=== PATIENT | female | born 1995 | race Caucasian/White ===

== ENCOUNTER 2018-08-04 18:06 | Emergency (ER) | payer BC, SELFPAY ==
[2018-08-04 18:06] VITALS: BP 157/101; PULSE 84; RESP 19; TEMP 36.9; O2SAT 99; BMI 33.5
--- NOTE | 2018-08-04 18:32 | US_ITS ---
STUDY: ABDOMINAL ULTRASOUND - RIGHT UPPER QUADRANT REASON FOR VISIT: Female, 23 years old. Right sided abdominal pain for 5 days. Pain is worsening with time. TECHNIQUE: Ultrasound evaluation of the right upper quadrant was performed with real-time and static trevino-scale imaging. TECHNICAL QUALITY: Adequate. COMPARISON: CT of the abdomen and pelvis, March 24, 2017. FINDINGS: Liver: The liver measures 20.8 cm. There is normal echogenicity of the liver. The bile ducts are within normal limits. There is hepatic color flow. The direction of portal flow is hepatopetal. There is an echogenic mass in right liver measuring 1 x 1.1 cm in diameter. This is thought to be a hemangioma. It is not visualized on the prior CT. Gallbladder: Normal distended gallbladder. The gallbladder wall measures 2 mm. There is a negative sonographic Gunn's sign. There is no pericholecystic fluid. There are no gallstones. Common Bile Duct (C.B.D.): The common bile duct measures 3 mm. Pancreas: Normal size of the head, body and tail of the pancreas. There is normal echogenicity of the pancreas. There is no demonstrated pancreatic mass or cyst. Right Kidney: Normal size of the right kidney. The right kidney measures 12.3 cm. Normal renal cortex. The right cortex measures 1.6 cm. There is no demonstrated renal mass or cyst. There is no right hydronephrosis. US/Gallbladder IMPRESSION: 1. Probable hepatic hemangioma. 2. Hepatomegaly. 3. No other sonographic evidence of right upper quadrant abnormality. Electronically Signed: Sriram Bowman DO at 19:40 EDT Tel [phone], Service support ,
--- NOTE | 2018-08-04 18:32 | RAD_ITS ---
STUDY: X-RAY CHEST REASON FOR EXAM: Female, 23 years old. Right-sided chest pain. TECHNIQUE: Single AP portable view of the chest. COMPARISON: None. FINDINGS: The lungs are clear and expanded. There is no demonstrated pleural abnormality. Normal size heart. Normal mediastinum and donavan. Normal visualized pulmonary arteries. Normal visualized aortic arch and descending thoracic aorta. Normal visualized thoracic spine. Normal visualized ribs, clavicles, and shoulders. There is no demonstrated abnormality of the visualized soft tissue structures of the upper abdomen. RAD/Chest 1 View (Portable) IMPRESSION: Normal x-ray examination of the chest. Electronically Signed: Sriram Bowman DO at 18:54 EDT Tel [phone], Service support ,
--- NOTE | 2018-08-04 18:33 | EKG12_ITS ---
Test Reason : CP Blood Pressure : / mmHG Vent. Rate : 082 BPM Atrial Rate : 082 BPM P-R Int : 130 ms QRS Dur : 088 ms QT Int : 360 ms P-R-T Axes : 028 -15 003 degrees QTc Int : 420 ms Normal sinus rhythm Normal ECG Confirmed by NIDHI LYN ([id number]), film editor supervisor AMBREEN DANIEL ([id number]) on 08/10/2018 3:30:35 PM Referred By: DC Confirmed By:NIDHI LYN
--- NOTE | 2018-08-04 18:37 | ED.RN ---
NO OLD EKGS IN MUSE
[2018-08-04 18:45] VITALS: BP 129/95; PULSE 83; RESP 15; O2SAT 98
[2018-08-04] MEDS: 0.9% Normal Saline 1,000 ML 1000 ML IV (18:49)
[2018-08-04] MEDS: Ondansetron 4 MG/2 ML Vial IV (18:49)
[2018-08-04 19:01] LABS: Absolute Lymphocyte Count 4.26 X10^3/ul (0.83-4.51); Absolute Neutrophil Count 6.6 X10^3/uL (2.0-7.7); Basophil# 0.02 X10^3/uL; Basophil% 0.2 % (0-1); Eosinophil# 0.44 X10^3/uL; Eosinophils% 3.7 % (0-5); Hematocrit 42.8 % (37-47); Lymphocyte # 4.26 X10^3/ul (4.0); Lymphocyte % 35.8 % (19-41); Mean Corp Hgb Conc 32.7 g/gl (32-36); Mean Corpuscular Hgb 28.2 pg (27.0-32.0); Mean Corpuscular Volume 86.3 fL (81-99); Mean Platelet Vol. 10.2 fl (6.2-12.0); Monocyte# 0.54 X10^3/uL; Monocyte% 4.5 % (0-10); Neutrophil # 6.62 X10^3/uL (2.7-7.7); Neutrophil % 55.6 % (47-70); Platelet Count 282 K/mm3 (150-450); RBC Distribution Width SD 43.9 fl (35.1-43.9); Red Blood Count 4.96 M/mm3 (4.2-5.4); White Blood Count 11.9 K/mm3 (4.4-11.0)
[2018-08-04 19:03] LABS: POSITIVE COUNT NO; POSITIVE DIFFERENTIAL NO; POSITIVE MORPHOLOGY NO
[2018-08-04 19:31] LABS: Bacteria 0 SEEN /hpf (None Seen); Mucous, Urine 0 SEEN /hpf (<or=2+)
[2018-08-04 19:32] LABS: ALB/GLOB Ratio 0.8 RATIO (0.9-2.4); AST(SGOT) 8 U/L (15-37); Alanine Aminotransfer ALT/SGPT 17 U/L (13-56); Albumin, Serum 3.2 g/dL (3.2-5.0); Alkaline Phosphatase 63 U/L (45-117); Anion Gap 7 (5-15); BUN 16 mg/dL (7-18); BUN/Creat Ratio 20.3 RATIO (10-20); Calcium,Total 8.3 mg/dL (8.5-10.1); Chloride 108 mmol/L (98-107); Creatinine, Serum 0.79 mg/dL (0.55-1.02); EST Glomerular Filtration Rate 94 mL/min (>60); Est Glom Filt Rate - Afr Amer 114 mL/min (>60); Globulin 4.1 g/dL (2.2-4.2); Glucose 71 mg/dL (74-106); Lipase 118 U/L (73-393); Potassium 3.7 mmol/L (3.5-5.1); Protein, Total 7.3 g/dL (6.4-8.2); Sodium Level 141 mmol/L (136-145)
[2018-08-04 19:32] LABS: Color, Urine Yellow (Yellow); Glucose, Dipstick Normal (Normal); Ketone-Dipstick Negative (Negative); Leukocyte Esterase-Dipstick 100 /ul (Negative); Nitrite-Dipstick Negative (Negative); Occult Blood-Urine 10 /ul (Negative); Protein-Dipstick Negative (Negative); Specific Gravity, Urine 1.015 (1.002-1.030); Urine Bilirubin Dipstick Negative (Negative); Urine Clarity Clear (Clear); Urine Urobilinogen Normal (Normal)
[2018-08-04 19:33] LABS: Internal QC Validated? YES +Cl - CLEAR BKGD
[2018-08-04 19:35] LABS: Pregnancy, Urine Negative Negative
[2018-08-04 19:47] LABS: Squamous Epithelial Cells - UA 0-5 SEEN /hpf (5-10)
[2018-08-04 19:48] LABS: White Blood Cells 0-5 SEEN /hpf (0-5)
[2018-08-04 19:49] LABS: Red Blood Cells-Urine 0-5 SEEN /hpf (0-5)
--- NOTE | 2018-08-04 20:11 | ED.VISSUMM ---
- ER Visit Summary Date of Service: 08/04/18 Chief Complaint: Chest pain History of Present Illness: The patient is a 23 F with chest pain for 5 days. She said the pain is over her right side and right lower chest anteriorly. Worse with moving. Sometimes it takes her breath away. She does report some nausea. No fevers. No cough or sputum. No hemoptysis. No lightheadedness. No other GI symptoms. No urinary symptoms. Patient never had this before. She does have a history of asthma and seasonal allergies. History of hysteroscopy and D&C. No history of PE or DVT. She does take control but is not a smoker. No recent travel, immobilization, or hospitalization. No leg pain or swelling. No history of aortic disease. No history of gallbladder, liver, or pancreas disease. No history of kidney stones or kidney infections. No rashes. Physical Examination: Blood pressure 157/101. Otherwise vitals unremarkable. Patient appears nontoxic and in no acute distress. Skin is normal in color without pallor, diaphoresis, or jaundice. Heart regular rate and rhythm. Lungs clear bilaterally. Abdomen is tender in the right upper quadrant. No guarding or rebound. CVA nontender. Abdomen otherwise nontender. Test Results: EKG showed sinus rhythm at a rate of 82. Troponin was normal. Chest x-ray was normal. CBC showed a white count of 11.9. Chloride 108 and glucose 71. Hepatic panel unremarkable. Lipase unremarkable. Urinalysis unremarkable. Right upper quadrant ultrasound showed hepatomegaly and a hepatic hemangioma, but no other abnormalities. No acute process. Emergency Department Course and Treatment: Patient treated with fluids and Zofran. She also received [place]. Her work-up was fairly unremarkable. She does have an enlarged liver and hepatic hemangioma. Nothing that definitively explains her symptoms. She has no risk factors for cardiac disease. No signs of infection. No signs of biliary disease. Nothing to suggest PE. I believe she is appropriate for outpatient care. Treated with anti-inflammatories. Referred to primary care for follow-up. Return for any new or worsening issues. Treatment Plan: As above Disposition: Discharge Impression: 1. Right upper quadrant pain This note was generated with [employer] software. It may contain incorrect words, spelling, and punctuation that were not noted in review of the chart prior to signing ED Disposition - Plan for ED Patient: Referrals: Care Physician,No Primary [Primary Care Provider] -
--- NOTE | 2018-08-04 20:14 | ED.DCSUM_ITS ---
- ER Visit Summary Date of Service: 08/04/18 Chief Complaint: Chest pain History of Present Illness: The patient is a 23 F with chest pain for 5 days. She said the pain is over her right side and right lower chest anteriorly. Worse with moving. Sometimes it takes her breath away. She does report some na usea. No fevers. No cough or sputum. No hemoptysis. No lightheadedness. No other GI symptoms. No urinary symptoms. Patient never had this before. She does have a history of asthma and seasonal allergies. History of hysteroscopy and D&C. No history of PE or DVT. She does take control but is not a smoker. No recent travel, immobilization, or hospitalization. No leg pain or swelling. No history of aortic disease. No history of gallbladder, liver, or pancreas disease. No history of kidney stones or kidney infections. No rashes. Physical Examination: Blood pressure 157/101. Otherwise vitals unremarkable. Patient appears nontoxic and in no acute distress. Skin is normal in color without pallor, diaphoresis, or jaundice. Heart regular rate and rhythm. Lungs clear bilaterally. Abdomen is tender in the right upper quadrant. No guarding or rebound. CVA nontender. Abdomen otherwise nontender. Test Results: EKG showed sinus rhythm at a rate of 82. Troponin was normal. Chest x-ray was normal. CBC showed a white count of 11.9. Chloride 108 and glucose 71. Hepatic panel unremarkable. Lipase unremarkable. Urinalysis unremarkable. Right upper quadrant ultrasound showed hepatomegaly and a hepatic hemangioma, but no other abnormalities. No acute process. Emergency Department Course and Treatment: Patient treated with fluids and Zofran. She also received [place]. Her work-up was fairly unremarkable. She does have an enlarged liver and hepatic hemangioma. Nothing that definitively explains her symptoms. She has no risk factors for cardiac disease. No signs of infection. No signs of biliary disease. Nothing to suggest PE. I [facility] Treated with anti-inflammatories. Referred to primary care for follow-up. Return for any new or worsening issues. Treatment Plan: As above Disposition: Discharge Impression: 1. Right upper quadrant pain This note was generated with [employer] software. It may contain incorrect words, spelling, and punctuation that were not noted in review of the chart prior to signing ED Disposition - Plan for ED Patient: Referrals: Care Physician,No Primary [Primary Care Provider] -
--- NOTE | 2018-08-04 20:15 | ED.DEP ---
ED Disposition - Plan for ED Patient: Instructions: ED Chest Pain Atypical Unkn Cause Prescriptions: Naproxen [Naprosyn] 500 mg PO BID #14 tab Referrals: Li Gatica [NON-STAFF] - As Needed Filippo Dumont DO [NON CLINICAL AFFILIATE] - As soon as possible
[2018-08-04] MEDS: HYDROcodone Bitartrate/Apap 5/325 Tablet PO (20:31)
[2018-08-04 20:41] VITALS: BP 128/79; PULSE 74; RESP 16; O2SAT 98
== END 2018-08-04 20:43 | disposition home or self-care (01) ==
LOC: ED 18:56
PROVIDERS: Emergency Provider Emergency Medicine
DX: R10.11 Right upper quadrant pain (principal); D18.03 Hemangioma of intra-abdominal structures; R16.0 Hepatomegaly, not elsewhere classified; R11.0 Nausea; R06.00 Dyspnea, unspecified; M54.9 Dorsalgia, unspecified; J45.909 Unspecified asthma, uncomplicated
CPT/HCPCS: 71045; 76705; 80053; 81001; 81025; 83690; 84484; 85025; 93005; 96361; 96374; 99284; J7030; A4216; J2405

== ENCOUNTER → 2018-11-30 17:27 | Outpatient (CLI) | payer BC, SELFPAY ==
[2018-12-28 15:22] LABS: HPV Reflexed? NOT INDICATED
== END ==
PROVIDERS: Visit Provider Obstetrics & Gynecology
DX: Z12.4 Encounter for screening for malignant neoplasm of cervix (principal); Z78.0 Asymptomatic menopausal state
CPT/HCPCS: 87624; 88175; G0145

== ENCOUNTER 2019-05-18 14:49 | Emergency (ER) | payer OTHER, BC, SELFPAY ==
[2019-05-18 14:53] VITALS: BP 145/94; PULSE 106; RESP 16; TEMP 36.9; O2SAT 96; BMI 39.4
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
[2019-05-18] MEDS: Naproxen 500 MG Tablet PO (15:38)
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
== END 2019-05-18 17:04 | disposition home or self-care (01) ==
PROVIDERS: Emergency Provider Emergency Medicine
DX: M54.2 Cervicalgia (principal); M25.512 Pain in left shoulder; M25.511 Pain in right shoulder; M79.632 Pain in left forearm; M25.561 Pain in right knee; V43.52XA Car driver injured in collision with other type car in traffic accident, initial encounter; Y93.9 Activity, unspecified; Y92.410 Unspecified street and highway as the place of occurrence of the external cause; Y99.9 Unspecified external cause status; Z79.899 Other long term (current) drug therapy
CPT/HCPCS: 71046; 72040; 73090; 73564; 99282

== ENCOUNTER → 2019-08-24 06:30 | Outpatient (CLI) | payer SELFPAY ==
[2019-05-21 16:16] VITALS: BMI 39.4
[2019-08-24 07:41] LABS: Absolute Lymphocyte Count 5.94 X10^3/uL (0.83-4.51); Absolute Neutrophil Count 5.6 X10^3/uL (2.0-7.7); Basophil# 0.06 X10^3/uL; Basophil% 0.5 % (0-1); Eosinophil# 0.73 X10^3/uL; Eosinophils% 5.6 % (0-5); Hematocrit 44.3 % (37-47); Hemoglobin 13.6 g/dL (12.0-15.0); Lymphocyte # 5.94 X10^3/ul (4.0); Lymphocyte % 45.8 % (19-41); Mean Corp Hgb Conc 30.7 g/dL (32-36); Mean Corpuscular Hgb 26.9 pg (27.0-32.0); Mean Corpuscular Volume 87.5 fL (81-99); Mean Platelet Vol. 10.1 fl (6.2-12.0); Monocyte# 0.63 X10^3/uL; Monocyte% 4.9 % (0-10); NRBC Flagged by Analyzer 0 % (0-5); Neutrophil # 5.55 X10^3/uL (2.7-7.7); Neutrophil % 42.8 % (47-70); POSITIVE DIFFERENTIAL YES; Platelet Count 385 K/mm3 (150-450); RBC Distribution Width CV 13.5 % (11.6-14.6); RBC Distribution Width SD 43.4 fl (35.1-43.9); Red Blood Count 5.06 M/mm3 (4.2-5.4)
[2019-08-24 07:46] LABS: Differential Indicated SCAN CRITERIA MET
[2019-08-24 08:13] LABS: ALB/GLOB Ratio 0.7 RATIO (0.9-2.4); AST(SGOT) 9 U/L (15-37); Alanine Aminotransfer ALT/SGPT 20 U/L (13-56); Albumin, Serum 3.1 g/dL (3.2-5.0); Alkaline Phosphatase 62 U/L (45-117); Anion Gap 11 (5-15); BUN 16 mg/dL (7-18); BUN/Creat Ratio 21.1 RATIO (10-20); Calcium,Total 8.7 mg/dL (8.5-10.1); Chloride 105 mmol/L (98-107); Cholesterol 237 mg/dL (200); Creatinine, Serum 0.76 mg/dL (0.55-1.02); EST Glomerular Filtration Rate 98 mL/min (>60); Est Glom Filt Rate - Afr Amer 118 mL/min (>60); Globulin 4.4 g/dL (2.2-4.2); Glucose 81 mg/dL (74-106); High Density Lipoprotein 61 mg/dL; Potassium 3.7 mmol/L (3.5-5.1); Protein, Total 7.5 g/dL (6.4-8.2); Sodium Level 141 mmol/L (136-145); Thyroid Stim Hormone (TSH) 1.72 uIU/mL (0.358-3.74); Triglycerides 176 mg/dL; Very Low Density Lipoprotein 35 mg/dL (5-40)
[2019-08-24 08:43] LABS: Differential Comment SCANNED; Reactive Lymphocyte RARE
== END ==
DX: F31.9 Bipolar disorder, unspecified (principal); Z13.6 Encounter for screening for cardiovascular disorders
CPT/HCPCS: 36415; 80053; 80061; 84443; 85025

== ENCOUNTER 2019-09-07 09:29 | Emergency (ER) | payer OTHER, BC, SELFPAY ==
[2019-05-21 16:16] VITALS: BMI 39.4
[2019-09-07 09:31] VITALS: BP 135/81; PULSE 89; RESP 18; TEMP 36.7; O2SAT 96; BMI 39.4
--- NOTE | 2019-09-07 09:45 | ED.VISSUMM ---
- ER Visit Summary Date of Service: 09/07/19 Chief Complaint: [Bite to right small finger and left index finger] History of Present Illness: The patient is a 24 F [presents to the emergency department after sustaining a bite to her right small finger and left index finger this morning around 8 AM. Patient states that she was in the office and thought that they had a mouse and she captured it with her hands and then was bitten. Patient thinks her last tetanus shot was about 9 years ago. She denies any other injuries.] Physical Examination: [Right small finger-patient has small puncture wounds to the lateral aspect of the PIP joint. She has normal range of motion flexion extension of the digit. Left index finger-patient has superficial puncture wound noted. Normal range of motion at the DIP and PIP joint. She is neurovascular intact.] Test Results: [None indicated] Emergency Department Course and Treatment: [Patient was given Adacel tetanus booster.] Treatment Plan: [Patient was advised that molds and mice do not carry the rabies virus. Recommended observing the wounds for signs of infection. Patient to follow-up with corporate care in 3 to 5 days for wound check. Patient advised to return if increasing pain, redness, swelling, purulent drainage, or condition should worsen anyway.] Disposition: [Discharged home in stable condition] Impression: [Bite to right small finger and left index finger from a mole] This note was generated with [employer] dictation software. It may contain incorrect words, spelling, and punctuation that were not noted in review of the chart prior to signing ED Disposition - Plan for ED Patient: Referrals: [facility] Doctor,Out of [Primary Care Provider] -
--- NOTE | 2019-09-07 09:48 | ED.DEP ---
ED Disposition - Plan for ED Patient: Instructions: ED Animal Bite General Referrals: [facility] Doctor,Out of [Primary Care Provider] - Corporate,Care [GROUP OF PHYSICIANS] - 3-5 Days
[2019-09-07] MEDS: Diphth,Pertuss(Acell),Tet Vac 0.5 ML Vial IM (10:00)
== END 2019-09-07 10:03 | disposition home or self-care (01) ==
LOC: ED 09:50
PROVIDERS: Emergency Provider Emergency Medicine
DX: S61.250A Open bite of right index finger without damage to nail, initial encounter (principal); S61.230A Puncture wound without foreign body of right index finger without damage to nail, initial encounter; S61.256A Open bite of right little finger without damage to nail, initial encounter; S61.236A Puncture wound without foreign body of right little finger without damage to nail, initial encounter; W53.81XA Bitten by other rodent, initial encounter; Y93.9 Activity, unspecified; Y92.9 Unspecified place or not applicable; Y99.0 Civilian activity done for income or pay; Z23 Encounter for immunization; F31.9 Bipolar disorder, unspecified; Z79.899 Other long term (current) drug therapy
CPT/HCPCS: 90715; 99281; 99282

== ENCOUNTER 2021-12-06 15:57 | Outpatient (CLI) | payer MEDICAID, SELFPAY ==
[2021-12-10 22:06] LABS: Chlamydia By Nucleic Acid AMP Negative (Negative)
[2021-12-11 15:13] LABS: Gonococcus By Nucleic Acid AMP Negative (Negative)
[2021-12-14 20:52] LABS: HPV Reflexed? NOT INDICATED
== END 2021-12-06 23:59 | disposition home or self-care (01) ==
PROVIDERS: Visit Provider Obstetrics & Gynecology
DX: O09.90 Supervision of high risk pregnancy, unspecified, unspecified trimester (principal); Z31.430 Encounter of female for testing for genetic disease carrier status for procreative management
CPT/HCPCS: 87491; 87591; 88175; G0145

== ENCOUNTER → 2021-12-12 | Outpatient (CLI) | payer MEDICAID, SELFPAY ==
[2021-12-12 10:23] LABS: NATERA MAILED SPECIMEN
[2021-12-12 10:46] LABS: Absolute Lymphocyte Count 3.07 X10^3/uL (0.83-4.51); Absolute Neutrophil Count 7.4 X10^3/uL (2.0-7.7); Basophil# 0.04 X10^3/uL; Basophil% 0.4 % (0-1); Eosinophil# 0.23 X10^3/uL; Hemoglobin 12.9 g/dL (12.0-15.0); Lymphocyte # 3.07 X10^3/ul (0.83-4.51); Lymphocyte % 27.1 % (19-41); Mean Corp Hgb Conc 31.5 g/dL (32-36); Mean Corpuscular Volume 82.7 fL (81-99); Monocyte% 4.4 % (0-10); NRBC Flagged by Analyzer 0 % (0-5); Neutrophil # 7.41 X10^3/uL (2.7-7.7); Neutrophil % 65.3 % (47-70); Platelet Count 351 K/mm3 (150-450); RBC Distribution Width CV 14.9 % (11.6-14.6); RBC Distribution Width SD 44.8 fl (35.1-43.9); Red Blood Count 4.96 M/mm3 (4.2-5.4); White Blood Count 11.3 K/mm3 (4.4-11.0)
[2021-12-12 11:08] LABS: Glucose Challenge Gest 1H 50g 96 mg/dL (70-140)
[2021-12-12 11:57] LABS: HIV - WCH Non-Reactive (Nonreactive); Hepatitis B Surface Antigen Non-Reactive (Nonreactive); Hepatitis C Antibody Non-Reactive (Nonreactive); Rubella IgG Reactive (Nonreactive); Syphilis Antibodies Non-reactive
[2021-12-13 08:30] LABS: HSV 1 IgG 5.19 index (0.00-0.90); HSV 2 IgG < 0.91 index (0.00-0.90)
== END | disposition home or self-care (01) ==
LOC: LAB 09:20
PROVIDERS: Referring Provider Obstetrics & Gynecology; Visit Provider Obstetrics & Gynecology
DX: O99.210 Obesity complicating pregnancy, unspecified trimester (principal)
CPT/HCPCS: 36415; 82950; 85025; 86695; 86696; 86703; 86762; 86780; 86803; 86850; 86900; 86901; 87340

== ENCOUNTER → 2022-01-02 | Outpatient (CLI) | payer MEDICAID, SELFPAY ==
[2022-01-02 18:08] LABS: Amphetamine Urine VISTA NEGATIVE (<1000 ng/mL); Barbiturate Urine VISTA NEGATIVE (< 200 ng/mL); Benzodiazepine Urine VISTA NEGATIVE (< 200 ng/mL); Cocaine Urine VISTA NEGATIVE (< 300 ng/mL); Ecstacy Urine VISTA NEGATIVE (< 500 ng/mL); Methadone Urine VISTA NEGATIVE (< 300 ng/mL); PCP Urine VISTA NEGATIVE (< 25 ng/mL); THC Urine VISTA NEGATIVE (< 50 ng/mL); Vista UDS pH Range 5
== END | disposition home or self-care (01) ==
PROVIDERS: Visit Provider Obstetrics & Gynecology
DX: O09.90 Supervision of high risk pregnancy, unspecified, unspecified trimester (principal); Z3A.00 Weeks of gestation of pregnancy not specified
CPT/HCPCS: 80307; 87086; 87088

== ENCOUNTER 2022-04-08 10:32 | Outpatient (CLI) | payer MEDICAID, SELFPAY ==
[2022-04-08 11:30] LABS: Absolute Lymphocyte Count 2.97 X10^3/uL (0.83-4.51); Absolute Neutrophil Count 10.8 X10^3/uL (2.0-7.7); Basophil# 0.05 X10^3/uL; Basophil% 0.3 % (0-1); Eosinophil# 0.27 X10^3/uL; Eosinophils% 1.8 % (0-5); Hematocrit 38.2 % (37-47); Hemoglobin 12.3 g/dL (12.0-15.0); Lymphocyte # 2.97 X10^3/ul (0.83-4.51); Lymphocyte % 19.8 % (19-41); Mean Corp Hgb Conc 32.2 g/dL (32-36); Mean Corpuscular Hgb 27.1 pg (27.0-32.0); Mean Corpuscular Volume 84.1 fL (81-99); Mean Platelet Vol. 9.9 fl (6.2-12.0); Monocyte# 0.78 X10^3/uL; Monocyte% 5.2 % (0-10); NRBC Flagged by Analyzer 0 % (0-5); Neutrophil # 10.76 X10^3/uL (2.7-7.7); Neutrophil % 71.7 % (47-70); Platelet Count 314 K/mm3 (150-450); RBC Distribution Width CV 15.9 % (11.6-14.6); RBC Distribution Width SD 48.5 fl (35.1-43.9); Red Blood Count 4.54 M/mm3 (4.2-5.4)
[2022-04-08 11:51] VITALS: BMI 44.4
[2022-04-08 11:56] LABS: Glucose Challenge Gest 1H 50g 118 mg/dL (70-140)
[2022-04-08 12:12] VITALS: PULSE 87; O2SAT 95
[2022-04-08 12:14] VITALS: BP 117/60; PULSE 88; TEMP 36.6; O2SAT 96
[2022-04-08 12:28] LABS: HIV - WCH Non-Reactive (Nonreactive); Syphilis Antibodies Non-reactive
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
== END 2022-04-08 13:55 | disposition home or self-care (01) ==
LOC: LAB 10:35 → WPOUT 11:50 → WP 11:51
PROVIDERS: Nurse Practitioner Women's Health; Referring Provider Obstetrics & Gynecology; Visit Provider Obstetrics & Gynecology
DX: O36.8130 Decreased fetal movements, third trimester, not applicable or unspecified (principal); O34.13 Maternal care for benign tumor of corpus uteri, third trimester; D25.9 Leiomyoma of uterus, unspecified; O99.213 Obesity complicating pregnancy, third trimester; Z3A.28 28 weeks gestation of pregnancy; Z87.891 Personal history of nicotine dependence
CPT/HCPCS: 36415; 59025; 59050; 82950; 85025; 86703; 86780; 99221; G0378

== ENCOUNTER → 2022-06-03 | Outpatient (CLI) | payer MEDICAID, SELFPAY ==
--- NOTE | 2022-06-03 12:32 | US_ITS ---
STUDY: SECOND AND THIRD TRIMESTER OBSTETRICAL ULTRASOUND-limited REASON FOR EXAM: Female, 27 years old routine survey, growth check LMP: 09/23/2021 TECHNIQUE: Transabdominal TECHNICAL QUALITY: Adequate. PRIOR ULTRASOUND: None. FINDINGS: There is a single intrauterine fetus. The fetus is in a cephalic presentation. There is demonstrated cardiac activity with a heart rate of 135 bpm. There is a normal amniotic fluid volume. The largest amniotic fluid pocket measures 7.0 cm. The amniotic fluid index (PABLO) is 17.6 cm. The placenta is anterior in location and is not low lying. There are Grade 2 placental changes. The cervix measures 3.8 cm in length. The bilateral adnexal regions are normal. BIOMETRY: BPD: 9.27 cm: 37 weeks, 5 days HC: 33.6 cm: 38 weeks, 3 days AC: 34.07 cm: 38 weeks, 0 days FL: 6.7 cm: 34 weeks, 2 days age by current US: 36 weeks, 6 days. HITESH by current US: 06/25/2022. Estimated weight: 3122 grams, +/- 468 grams, 77 %. Age by LMP: 36 weeks, 1 days. HITESH by LMP: 06/30/2022. US/OB Limited With Biometrics IMPRESSION: Single live intrauterine at 36 weeks, 6 days by current ultrasound with HITESH of 06/25/2022. Heart rate of 135 bpm. No suspicious sonographic findings Electronically Signed: Dariel Hebert MD at 13:25 EDT ,
== END | disposition home or self-care (01) ==
PROVIDERS: Visit Provider Nurse Practitioner Women's Health
DX: O09.90 Supervision of high risk pregnancy, unspecified, unspecified trimester (principal)
CPT/HCPCS: 76816; 87081

== ENCOUNTER 2022-06-08 22:44 | Inpatient (IN) | payer MEDICAID, SELFPAY ==
[2022-06-08 22:02] VITALS: PULSE 96; O2SAT 96
[2022-06-08 22:11] VITALS: BMI 47.2
[2022-06-08 22:19] VITALS: TEMP 36.9
[2022-06-08 22:20] VITALS: BP 131/84; PULSE 104; O2SAT 93
[2022-06-08 22:39] LABS: ROM Internal Control Test YES-OK TO RESULT pt. (Internal QC)
[2022-06-08 22:41] LABS: ROM Patient Test POSITIVE (Negative)
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
[2022-06-08] MEDS: Lactated Ringers 1,000 ML 200 ML IV (23:20)
[2022-06-08 23:39] LABS: Absolute Lymphocyte Count 3.22 X10^3/uL (0.83-4.51); Absolute Neutrophil Count 9.1 X10^3/uL (2.0-7.7); Basophil# 0.05 X10^3/uL; Basophil% 0.4 % (0-1); Eosinophil# 0.27 X10^3/uL; Hematocrit 40.5 % (37-47); Hemoglobin 12.7 g/dL (12.0-15.0); Lymphocyte # 3.22 X10^3/ul (0.83-4.51); Lymphocyte % 23.8 % (19-41); Mean Corp Hgb Conc 31.4 g/dL (32-36); Mean Corpuscular Hgb 26.6 pg (27.0-32.0); Mean Corpuscular Volume 84.9 fL (81-99); Monocyte# 0.87 X10^3/uL; Monocyte% 6.4 % (0-10); NRBC Flagged by Analyzer 0 % (0-5); Neutrophil # 9.06 X10^3/uL (2.7-7.7); Neutrophil % 66.9 % (47-70); Platelet Count 285 K/mm3 (150-450); RBC Distribution Width SD 49.3 fl (35.1-43.9); Red Blood Count 4.77 M/mm3 (4.2-5.4); White Blood Count 13.5 K/mm3 (4.4-11.0)
[2022-06-08] MEDS: fentaNYL 100 MCG/2 ML Ampul IV (23:43)
[2022-06-08 23:56] VITALS: TEMP 36.5
[2022-06-08 23:57] VITALS: BP 137/82; PULSE 91; O2SAT 94
[2022-06-09] VITALS (166 sets, daily range): BP systolic 81–151; BP diastolic 41–91; PULSE 43–166; TEMP 35.8–37.9; O2SAT 80–100
[2022-06-09 00:19] LABS: Syphilis Antibodies Non-reactive
[2022-06-09] MEDS: LACTATED RINGERS 500 ML 999 ML IV ×2 (02:15→03:52)
[2022-06-09] MEDS: fentaNYL-bupivacaine (epidural) 100 ML BAG EPIDURAL ×3 (03:02→17:13)
[2022-06-09] MEDS: 0.9% Saline Lock 10 ML Syringe IV ×2 (03:50→17:15)
[2022-06-09] MEDS: Ondansetron 4 MG/2 ML Vial IV ×3 (03:50→17:15)
[2022-06-09] MEDS: ePHEDrine Sulfate 50 MG/ML Ampul 10 MG IV (04:09)
[2022-06-09] MEDS: Lactated Ringers 1,000 ML 200 ML IV ×3 (06:05→15:39)
[2022-06-09] MEDS: Oxytocin 15 Units/NS 250ml 15 UNITS/250 ML IV.SOLN 2 UNITS IV (08:44)
--- NOTE | 2022-06-09 19:41 | EX.PCM.OBRPT ---
Assessment & Plan (1) Vaginal delivery: COMMENT: SM srom girl víctor (2) Bipolar disorder: COMMENT: taking lamictal and lexapro. Change to zoloft 03/13 (3) Obesity affecting : COMMENT: weekly nsts at 34 and growth US 32 and 36 (4) Herpes simplex antibody positive: COMMENT: Herpes simplex I + lab, no hx of cold sores per pt (5) COVID-19 affecting in second trimester: COMMENT: Baby ASA daily. Growth US 32 and 36 wk (6) Supervision of high risk , antepartum: COMMENT: [id number], girlVíctor HITESH 06/30/22, Jimmy Alvarado (7) SROM (spontaneous rupture of membranes): (8) : QUALIFIERS: Weeks of gestation: 36 weeks Qualified Code(s): Z3A.36 - 36 weeks gestation of COMMENT: GBS neg, NIPT low risk, carrier neg. , nl anatomy. fibroid on posterior of uterus. nl growth Maternal Data Information HITESH Calculator Estimated Delivery Date Method Current WG Current Estimate 06/30/22 LMP (Certain) 37w 0d Other Estimates 07/01/22 Ultrasound #1 36w 6d Vaginal Delivery Operative Information Date of Procedure: 06/09/22 Pre-Operative Diagnosis: see a/p diagnoses Post-Operative Diagnosis: same Surgery / Procedure Performed: Spontaneous Vaginal Delivery Type of Anesthesia: Epidural Special Medications: none Estimated Blood Loss: 400 Fluids Replaced: crystalloid Findings Description of Procedure: Patient began pushing and delivered the head in the JAILYN presentation. The head was delivered atraumatically and a loose nuchal x2 was identified and the delivered through. The anterior and posterior shoulders delivered without complication followed by the rest of the and the infant was placed on the maternal abdomen. Delayed cord clamping was employed for approximately 60 seconds. Cord was clamped and cut and gentle traction was applied to the cord and the placenta delivered spontaneously immediately following it was noted to be intact with three-vessel cord. The perineum and vagina were inspected and noted to have a second degree perineal laceration which was repaired in the usual fashion with 3-0 vicryl rapide.. EBL was 400. Patient and tolerated delivery well. Amniotic Fluid Description: Clear Placental Delivery Description: Spontaneous Placenta Disposition: [facility] Cord Vessel Description: 3 Vessels Cord Entanglement: None Delayed Cord Clamping: Yes Post Vaginal Delivery Medications Given After Delivery: IV Pitocin Episiotomy Description: None Complication Complications: None Procedures Urinary/Genital [id number]: [id number] Vaginal Delivery+PP Care([facility])
--- NOTE | 2022-06-09 19:42 | DCINST_ITS ---
Discharge Instructions Diet Discharge Diet: No restrictions Activity Discharge Activity: Return to Normal Activity, May Drive, May Shower and May Take a Tub Bath (in 4 weeks) May resume sexual activity in: 6-8 weeks (after seen by OB provider) Weight Bearing Status: Full weight bearing Lifting Restrictions: none Dressing / Incision Call your doctor if you observe: Fever of 101 or Higher, Inability to urinate, Using more than 1 pad per hour (for more than 2 hours in a row or more), Shortness of breath, Dizziness, Chest pain and - (headache not controlled with tylenol, change in vision) Follow Up Care When: in 6 weeks for visit, call the office to make the appointment. If you had elevated blood pressures call the office to be seen within 1 week. Test Results: Test results from this visit will be discussed in further detail at your follow- up appointment, if applicable. Discharge Plan Admission Admit Date/Time: 06/08/22 22:44 Attending Provider: Nenita Fong Primary Care Provider: Care PhysicianSheri Primary Discharge Orders/Prescriptions Prescriptions: No Action ondansetron 4 mg tablet,disintegrating 4 mg PO Q6H PRN (Reason: nausea and vomiting) Qty: 30 0RF promethazine 12.5 mg tablet 12.5 mg PO Q6H PRN (Reason: nausea and vomiting) Qty: 60 1RF Rx Instructions: 3 doses during day; last dose no later than 4 hr before bedtime sertraline [Zoloft] 50 mg tablet 50 mg PO DAILY Qty: 30 4RF lamotrigine 200 MG tablet 200 mg PO DAILY cetirizine 10 mg tablet 10 mg PO DAILY Vitafol Fe Plus 90 mg iron- 1 mg-200 mg capsule 1 cap PO DAILY Qty: 90 4RF Referrals / Follow Up: Care Physician,No Primary [Primary Care Provider] -
[2022-06-09] MEDS: Oxytocin 15 Units/NS 250ml 15 UNITS/250 ML IV.SOLN 83 UNITS IV (21:16)
[2022-06-10] MEDS: Naproxen 500 MG Tablet PO (01:07)
[2022-06-10 03:20] VITALS: BP 126/78; PULSE 83; RESP 16; TEMP 36.1
--- NOTE | 2022-06-10 03:40 | NURSING ---
RN notes first void after catheter removal was 100ml. Pt states she feels like she emptied her bladder. RN encourages pt to drink fluids and pt verbalized understanding. Will continue to monitor.
--- NOTE | 2022-06-10 07:43 | PCM.PN.OB ---
Subjective Subjective Patient doing well without complaints. Tolerating PO. Ambulating and voiding without difficulty. Feeding well. Denies chest pain, shortness of breath, calf pain/swelling, fevers, chills, lightheadedness. Objective Data Objective Data Vital Signs: Vital Signs Temp Pulse Resp BP Pulse Ox O2 Del Method 97 F L 83 16 126/78 H 97 Room Air 06/10/22 03:20 06/10/22 03:20 06/10/22 03:20 06/10/22 03:20 06/09/22 23:18 06/10/22 03:20 Oxygen Delivery Method Room Air Weight: 275 lb 5.718 oz Body Mass Index (BMI) 47.2 Intake & Output: Intake and Output for Last 24 Hours 06/08/22 06/09/22 06/10/22 23:59 23:59 23:59 Intake Total 4675.83 / 4675.83 250 / 250 Output Total 800 / 800 750 / 750 Balance 3875.83 / 3875.83 -500 / -500 Lab / Micro Data Result Diagrams: 06/08/22 23:20 Physical Exam Const alert and oriented x3 HEENT normocephalic Eyes PERRL Neck full ROM Resp normal respiratory effort GI soft to palpation GI Narrative: FF below U Assessment & Plan (1) Vaginal delivery: COMMENT: SM srom girl finlee (2) Bipolar disorder: COMMENT: taking lamictal and lexapro. Change to zoloft 03/13 PLAN: Plan s/p PPD # 1 1. routine post delivery care 2. breast feeding- support given 3. rh positive 4. rubella immune
[2022-06-10 08:24] VITALS: BP 122/72; PULSE 97; RESP 16; TEMP 36.6; O2SAT 97
[2022-06-10] MEDS: Prenatal Vits Tablet 1 TABLET PO (10:45)
[2022-06-10] MEDS: lamoTRIgine 100 MG Tablet 200 MG PO (10:45)
[2022-06-10] MEDS: Sertraline 50 MG Tablet PO (10:45)
[2022-06-10 11:57] VITALS: BP 110/55; PULSE 89; RESP 16; TEMP 36.6; O2SAT 96
[2022-06-10 16:37] VITALS: BP 126/74; PULSE 89; RESP 18; TEMP 36.7; O2SAT 96
[2022-06-10 20:00] VITALS: BP 145/59; PULSE 94; RESP 17; O2SAT 95
[2022-06-11 01:05] VITALS: BP 146/80; PULSE 97; RESP 17; TEMP 36.4; O2SAT 97
[2022-06-11] MEDS: Naproxen 500 MG Tablet PO (02:05)
[2022-06-11] MEDS: Senna/Docusate Sodium 1 Tablet PO (02:05)
--- NOTE | 2022-06-11 07:39 | DCINST_ITS ---
Discharge Instructions Diet Discharge Diet: No restrictions Activity Discharge Activity: May Shower May resume sexual activity in: 6-8 weeks (after seen by OB provider) Weight Bearing Status: Full weight bearing Dressing / Incision Call your doctor if you observe: Fever of 101 or Higher, Inability to urinate, Using more than 1 pad per hour (for more than 2 hours in a row or more), Shortness of breath, Dizziness, Chest pain and - (headache not controlled with tylenol, change in vision) Follow Up Care Please Follow Up With: Nenita Fong MD When: 6 weeks Test Results: Test results from this visit will be discussed in further detail at your follow- up appointment, if applicable. Discharge Plan Admission Admit Date/Time: 06/08/22 22:44 Primary Reason for Your Visit: Attending Provider: Nenita Fong Primary Care Provider: Sheri Tena Primary Instructions Forms: Information Patient Instructions: After a Vaginal Discharge Orders/Prescriptions Prescriptions: No Action ondansetron 4 mg tablet,disintegrating 4 mg PO Q6H PRN (Reason: nausea and vomiting) Qty: 30 0RF promethazine 12.5 mg tablet 12.5 mg PO Q6H PRN (Reason: nausea and vomiting) Qty: 60 1RF Rx Instructions: 3 doses during day; last dose no later than 4 hr before bedtime sertraline [Zoloft] 50 mg tablet 50 mg PO DAILY Qty: 30 4RF lamotrigine 200 MG tablet 200 mg PO DAILY cetirizine 10 mg tablet 10 mg PO DAILY Vitafol Fe Plus 90 mg iron- 1 mg-200 mg capsule 1 cap PO DAILY Qty: 90 4RF Referrals / Follow Up: Care PhysicianSheri Primary [Primary Care Provider] - Disposition Disposition (needs filled in before D/C Order can be placed): Home, Self Care
[2022-06-11 07:40] VITALS: BP 141/65; PULSE 112; RESP 22; O2SAT 94
--- NOTE | 2022-06-11 07:58 | NURSING ---
0745 agree with assessment- [email or web address] made aware of last 3 BP readings-145/59, 146/60, 141/52- pt without any Pre symptoms
[2022-06-11 07:59] VITALS: TEMP 36.9
--- NOTE | 2022-06-11 08:24 | PN.OBGYN_ITS ---
Subjective Subjective Patient doing well without complaints. Tolerating PO. Ambulating and voiding without difficulty. Feeding well. Denies chest pain, shortness of breath, calf pain/swelling, fevers, chills, lightheadedness. Objective Data Objective Data Vital Signs: Vital Signs Temp Pulse Resp BP Pulse Ox O2 Del Method 98.4 F 112 H 22 H 141/65 H 94 Room Air 06/11/22 07:59 06/11/22 07:40 06/11/22 07:40 06/11/22 07:40 06/11/22 07:40 06/11/22 07:40 Oxygen Delivery Method Room Air Weight: 275 lb 5.718 oz Body Mass Index (BMI) 47.2 Intake & Output: Intake and Output for Last 24 Hours 06/09/22 06/10/22 06/11/22 23:59 23:59 23:59 Intake Total 4675.83 / 4675.83 250 / 250 Output Total 800 / 800 750 / 750 Balance 3875.83 / 3875.83 -500 / -500 Lab / Micro Data Attestation: I reviewed the patient's lab results. Result Diagrams: 06/08/22 23:20 ROS Constitutional Constitutional: Reports systems reviewed and no addt'l complaints, except as documented; Denies anorexia or headache(s) Cardiovascular Cardiovascular: Reports systems reviewed and no addt'l complaints, except as do cumented; Denies chest pain, lightheadedness, palpitations or syncope Respiratory/Chest Respiratory/Chest: Reports systems reviewed and no addt'l complaints, except as documented; Denies cough or dyspnea Gastrointestinal Gastrointestinal: Reports systems reviewed and no addt'l complaints, except as documented; Denies abdominal pain, anorexia, diarrhea, heartburn, nausea or vomiting Genitourinary Genitourinary: Reports systems reviewed and no addt'l complaints, except as documented; Denies burning urination, difficulty urinating, urinary incontinence or urinary urgency Musculoskeletal Musculoskeletal: Reports systems reviewed and no addt'l complaints, except as documented Neurologic Neurologic: Reports systems reviewed and no addt'l complaints, except as documented; Denies dizziness or headache(s) Psychiatric Psychiatric: Reports systems reviewed and no addt'l complaints, except as documented; Denies anxiety Physical Exam Const alert, oriented x3 and no apparent distress General Appearance: cooperative and comfortable Chest inspection of chest normal Resp normal respiratory effort, no retractions and no use of accessory muscles GI normal to inspection, nondistended, normoactive bowel sounds and soft to palpation appearance of the vagina normal Uterus Palpation: uterus fundus firm (1 below U-- light lochia) Extremity normal to inspection and full ROM Psych mental status grossly normal and affect normal Assessment & Plan (1) Vaginal delivery: COMMENT: SM srom girl seblee PLAN: s/p PPD # 2 1. routine post delivery care 2. breast feeding- support given 3. rh positive 4. rubella immune 5. Discharge if indicated (2) Bipolar disorder: COMMENT: taking lamictal and lexapro. Change to zoloft 03/13 PLAN: Stable on zoloft and lamictal. Continue current medications upon D/C
--- NOTE | 2022-06-11 08:41 | DCINST_ITS ---
Discharge Instructions Diet Discharge Diet: No restrictions Activity May resume sexual activity in: 6-8 weeks (after seen by OB provider) Weight Bearing Status: Full weight bearing Dressing / Incision Call your doctor if you observe: Fever of 101 or Higher, Inability to urinate, Using more than 1 pad per hour (for more than 2 hours in a row or more), Shortness of breath, Dizziness, Chest pain and - (headache not controlled with tylenol, change in vision) Follow Up Care Test Results: Test results from this visit will be discussed in further detail at your follow- up appointment, if applicable. Discharge Plan Admission Admit Date/Time: 06/08/22 22:44 Primary Reason for Your Visit: Attending Provider: Nenita Fong Primary Care Provider: Sheri Tena Primary Instructions Forms: Information Patient Instructions: After a Vaginal Discharge Orders/Prescriptions Prescriptions: No Action ondansetron 4 mg tablet,disintegrating 4 mg PO Q6H PRN (Reason: nausea and vomiting) Qty: 30 0RF promethazine 12.5 mg tablet 12.5 mg PO Q6H PRN (Reason: nausea and vomiting) Qty: 60 1RF Rx Instructions: 3 doses during day; last dose no later than 4 hr before bedtime sertraline [Zoloft] 50 mg tablet 50 mg PO DAILY Qty: 30 4RF lamotrigine 200 MG tablet 200 mg PO DAILY cetirizine 10 mg tablet 10 mg PO DAILY Vitafol Fe Plus 90 mg iron- 1 mg-200 mg capsule 1 cap PO DAILY Qty: 90 4RF Referrals / Follow Up: Care PhysicianSheri Primary [Primary Care Provider] - Disposition Disposition (needs filled in before D/C Order can be placed): Home, Self Care
--- NOTE | 2022-06-11 09:24 | NURSING ---
0900 plan of care is to keep pt. till 1600 to monitor BP readings
[2022-06-11 10:24] VITALS: BP 140/73
[2022-06-11] MEDS: Sertraline 50 MG Tablet PO (10:44)
[2022-06-11] MEDS: lamoTRIgine 100 MG Tablet 200 MG PO (10:44)
[2022-06-11] MEDS: Prenatal Vits Tablet 1 TABLET PO (11:07)
[2022-06-11 13:30] VITALS: BP 140/81
[2022-06-11 15:30] VITALS: BP 128/63; PULSE 96; RESP 18; TEMP 36.7
--- NOTE | 2022-06-11 15:46 | NURSING ---
154 Dr Fong on unit made aware of last 3 BP readings- ok for pt dc to home- pt to follow up on for BP check in the office
--- NOTE | 2022-06-11 16:23 | NURSING ---
1600 pt request her BP follow up visit be tomorrow instead of due to distance to the hospital- office called and pt set up for 9 am tomorrow
== END 2022-06-11 16:50 | disposition home or self-care (01) | DRG 560 ==
LOC: WPOUT 22:48 → WP 22:48
PROVIDERS: Admitting Provider Obstetrics & Gynecology; Referring Provider Obstetrics & Gynecology; Visit Provider Obstetrics & Gynecology
DX: O42.913 Preterm premature rupture of membranes, unspecified as to length of time between rupture and onset of labor, third trimester (principal); Z37.0 Single live birth; O99.344 Other mental disorders complicating childbirth; F31.9 Bipolar disorder, unspecified; J30.2 Other seasonal allergic rhinitis; O99.214 Obesity complicating childbirth; O99.52 Diseases of the respiratory system complicating childbirth; O70.1 Second degree perineal laceration during delivery; O69.81X0 Labor and delivery complicated by cord around neck, without compression, not applicable or unspecified; Z3A.36 36 weeks gestation of pregnancy; Z87.891 Personal history of nicotine dependence
CPT/HCPCS: 59025; 59050; 84112; 85025; 86780; 86850; 86900; 86901; 99221; J7120; A4216; G0378; J2405

== ENCOUNTER → 2022-07-30 | Outpatient (CLI) | payer MEDICAID, SELFPAY | END | disposition home or self-care (01) | LOC: LABSPEC 12:49 | PROVIDERS: Referring Provider Obstetrics & Gynecology; Visit Provider Obstetrics & Gynecology | DX: N89.8 Other specified noninflammatory disorders of vagina (principal) | CPT/HCPCS: 87070; 87205 ==

== ENCOUNTER → 2024-02-18 | Outpatient (CLI) | payer OTHER, SELFPAY ==
[2024-02-18 17:04] LABS: Protein, Urine (Random) 49.7 mg/dL (<11.9); Protein:Creat Ratio 200 mg/g CRE (0-200)
[2024-02-23 04:06] LABS: Chlamydia By Nucleic Acid AMP Negative (Negative); Gonococcus By Nucleic Acid AMP Negative (Negative)
== END | disposition home or self-care (01) ==
LOC: LABSPEC 14:52
PROVIDERS: Referring Provider Advanced Practice Midwife; Visit Provider Advanced Practice Midwife
DX: O99.210 Obesity complicating pregnancy, unspecified trimester (principal); Z3A.00 Weeks of gestation of pregnancy not specified; Z87.59 Personal history of other complications of pregnancy, childbirth and the puerperium; Z86.79 Personal history of other diseases of the circulatory system
CPT/HCPCS: 82570; 84156; 87086; 87088; 87491; 87591

== ENCOUNTER → 2024-03-26 | Outpatient (CLI) | payer OTHER, SELFPAY ==
[2024-03-26 17:16] LABS: Absolute Lymphocyte Count 3.23 X10^3/uL (0.83-4.51); Absolute Neutrophil Count 7.3 X10^3/uL (2.0-7.7); Basophil# 0.05 X10^3/uL; Basophil% 0.4 % (0-1); Eosinophil# 0.19 X10^3/uL; Eosinophils% 1.7 % (0-5); Hematocrit 39.8 % (37-47); Hemoglobin 12.7 g/dL (12.0-15.0); Lymphocyte # 3.23 X10^3/ul (0.83-4.51); Lymphocyte % 28.1 % (19-41); Mean Corp Hgb Conc 31.9 g/dL (32-36); Mean Corpuscular Hgb 27.4 pg (27.0-32.0); Mean Platelet Vol. 10.2 fl (6.2-12.0); Monocyte# 0.67 X10^3/uL; Monocyte% 5.8 % (0-10); NRBC Flagged by Analyzer 0 % (0-5); Neutrophil % 63.7 % (47-70); Platelet Count 270 K/mm3 (150-450); RBC Distribution Width CV 15.7 % (11.6-14.6); Red Blood Count 4.63 M/mm3 (4.2-5.4); White Blood Count 11.5 K/mm3 (4.4-11.0)
[2024-03-26 17:35] LABS: ALB/GLOB Ratio 0.8 RATIO (0.9-2.4); AST(SGOT) 10 U/L (15-37); Alanine Aminotransfer ALT/SGPT 16 U/L (13-56); Alkaline Phosphatase 81 U/L (45-117); Anion Gap 6 (5-15); BUN 9 mg/dL (7-18); Calcium,Total 9.3 mg/dL (8.5-10.1); Chloride 105 mmol/L (98-107); Creatinine, Serum 0.53 mg/dL (0.55-1.02); EST Glomerular Filtration Rate 143 mL/min (>60); Est Glom Filt Rate - Afr Amer 174 mL/min (>60); Globulin 3.9 g/dL (2.2-4.2); Glucose 81 mg/dL (74-106); Potassium 3.7 mmol/L (3.5-5.1); Protein, Total 6.9 g/dL (6.4-8.2); Sodium Level 138 mmol/L (136-145); T4 Free Direct 0.95 ng/dL (0.76-1.46); Thyroid Stim Hormone (TSH) 0.648 uIU/mL (0.358-3.740)
[2024-03-26 18:37] LABS: HIV - WCH Non-Reactive (Nonreactive); Hepatitis B Surface Antigen Non-Reactive (Nonreactive); Hepatitis C Antibody Non-Reactive (Nonreactive); Rubella IgG Equiv (Nonreactive); Syphilis Antibodies Non-reactive
== END | disposition home or self-care (01) ==
PROVIDERS: Advanced Practice Midwife; Referring Provider Obstetrics & Gynecology; Visit Provider Obstetrics & Gynecology
DX: O09.522 Supervision of elderly multigravida, second trimester (principal); O99.212 Obesity complicating pregnancy, second trimester; O99.282 Endocrine, nutritional and metabolic diseases complicating pregnancy, second trimester; E01.0 Iodine-deficiency related diffuse (endemic) goiter; Z3A.00 Weeks of gestation of pregnancy not specified; Z87.59 Personal history of other complications of pregnancy, childbirth and the puerperium; Z86.79 Personal history of other diseases of the circulatory system
CPT/HCPCS: 36415; 80053; 83036; 84439; 84443; 85025; 86703; 86762; 86780; 86803; 86850; 86900; 86901; 87340

== ENCOUNTER 2024-06-21 20:40 | Outpatient (CLI) | payer OTHER, SELFPAY ==
[2024-06-21 20:59] VITALS: BP 119/64; PULSE 90; O2SAT 97
[2024-06-21 21:00] VITALS: RESP 16; TEMP 36.6
[2024-06-21 21:15] VITALS: BMI 46.6
[2024-06-21 21:22] LABS: Color, Urine Yellow (Yellow); Glucose, Dipstick Normal (Normal); Ketone-Dipstick 5 mg/dl (Negative); Leukocyte Esterase-Dipstick 25 /ul (Negative); Nitrite-Dipstick Negative (Negative); Occult Blood-Urine 10 /ul (Negative); Protein-Dipstick 30 mg/dl (Negative); Urine Bilirubin Dipstick Negative (Negative); Urine Clarity Clear (Clear); Urine Urobilinogen Normal (Normal)
--- NOTE | 2024-06-21 21:34 | US_ITS ---
PROCEDURE: OB LIMITED WITH BIOMETRICS 06/21/2024 REASON FOR EXAM: VAGINAL BLEEDING TECHNIQUE: High resolution obstetric ultrasound performed using a 2D transducer. Standard views obtained, including biometry, anatomy survey, and Doppler studies. COMPARISON: Ob ultrasound dated June 03, 2022. FINDINGS Number: 1 Position: Vertex Placental Position: Fundal Placental Abnormalities: No evidence of previa. DIMENSIONS: Biparietal Diameter: 6.9 cm/27 weeks 6 days Head Circumference: 26.6 cm/29 weeks 0 days Abdominal Circumference: 23 cm/27 weeks 3 days Femur Length: 4.9 cm/26 weeks 6 days ESTIMATED WEIGHT: 105 g ESTIMATED WEIGHT PERCENTILE (24+ weeks): ESTIMATED GESTATIONAL AGE: Baseline: 26 weeks 6 days By Ultrasound: 28 weeks 0 days ESTIMATED DATE OF DELIVERY: Baseline: 09/21/2024 By Ultrasound: 09/13/2024 BIOPHYSICAL ASSESSMENT: Amniotic Fluid Volume: 4.3 cm Amniotic Fluid Index: 13.2 cm (8-24 cm normal range) Cardiac Motion: 145 beats per minute (average) Trunk and Limb Motion: Present. MATERNAL ANATOMY: Adnexa: Neither maternal ovary is successfully identified. Cervical Length (if measured): 3.7 cm US/OB Limited With Biometrics IMPRESSION: Viable intrauterine with estimated gestational age of 28 weeks 0 days and HITESH of 09/13/2024. Reading Location: [facility]
[2024-06-21 23:41] LABS: Fetal Fibronectin Negative; Record Kit Lot#, fFN J4938
--- NOTE | 2024-06-22 00:38 | OB.TRI.PN_ITS ---
Progress Notes Date of Service: 06/21/24 Progress Note: Patient presents for triage evaluation secondary to vaginal bleeding at 26.6 weeks that started this afternoon. Had one episode when wiping and no further bleeding since. has had cramping on and off the last few days but admits to being dehydrated. FHT: 135 appropriate for gestational age [place]: no Contractions Assessment and plan: US for placental location-fundal, FFN neg, genital and urine culture collected. no additional bleeding while on unit, speculum exam reveled closed cervix. reassuring maternal and status patient discharged to home to follow-up []. See problem list details for additional plan information. Laboratory Studies: Laboratory Tests 06/21/24 06/21/24 Range/Units 21:15 21:10 Urine Color Yellow (Yellow) Urine Clarity Clear (Clear) Urine pH 6.0 (5.0 - 8.0) Ur Specific [place] 1.030 (1.002-1.030) Urine Protein 30 H (Negative) mg/dl Urine Glucose (UA) Normal (Normal) mg/dl Urine Ketones 5 H (Negative) mg/dl Urine Occult Blood 10 H (Negative) /ul Urine Nitrite Negative (Negative) Urine Bilirubin Negative (Negative) mg/dL Urine Urobilinogen Normal (Normal) mg/dl Ur Leukocyte Esterase 25 H (Negative) /ul Fibronectin Negative Charges/Coding Multi Select Codes Visit Charges Visit Charges: 48506 Subs Hosp L3 Urinary/Genital Urinary/Genital CPT Codes: 59206-58 non-stress test Interp Assessment & Plan (1) Vaginal bleeding during : (2) Rubella non-immune status, antepartum: COMMENT: equivocal. offer MMR after (3) Obesity affecting : QUALIFIERS: Trimester: second trimester Obesity type affecting : unspecified obesity Qualified Code(s): O99.212 - Obesity complicating , second trimester COMMENT: HgbA1c BMI 45-needs weekly NST/BPP at 34 weeks- needs 36 week US (4) History of gestational hypertension: (5) Depression: QUALIFIERS: Depression Type: major depressive disorder Major depression recurrence: unspecified whether recurrent Active/Remission status: remission status unspecified Qualified Code(s): F32.9 - Major depressive disorder, single episode, unspecified (6) Maternal anesthesia complication: COMMENT: passed out with full strength epidural, OK with half strength (7) Supervision of high-risk : QUALIFIERS: Trimester: second trimester Qualified Code(s): O09.92 - Supervision of high risk , unspecified, second trimester COMMENT: PRR. , HITESH 09/27/24, boy,Emily Ball (8) : QUALIFIERS: Weeks of gestation: 26 weeks Qualified Code(s): Z3A.26 - 26 weeks gestation of COMMENT: NIPT low risk (9) History of herpes genitalis in father of unborn child: (10) Thyromegaly: COMMENT: noted at post visit last .labs were normal but did not do ordered US. plan to reassess at post visit this . (11) Bipolar disorder: QUALIFIERS: Active/Remission status: remission status unspecified Qualified Code(s): F31.9 - Bipolar disorder, unspecified COMMENT: taking lamictal and lexapro. Change to zoloft 03/13; Will discuss DC of lamictal with PCP in order to breastfeed
== END 2024-06-21 23:57 | disposition home or self-care (01) ==
LOC: WPOUT 20:44 → WP 20:45
PROVIDERS: Advanced Practice Midwife; Referring Provider Obstetrics & Gynecology; Visit Provider Obstetrics & Gynecology
DX: O99.212 Obesity complicating pregnancy, second trimester (principal); O46.92 Antepartum hemorrhage, unspecified, second trimester; Z3A.26 26 weeks gestation of pregnancy
CPT/HCPCS: 59025; 59050; 76816; 81002; 82731; 87070; 87086; 87088; 87205; 99221; G0378

== ENCOUNTER → 2024-06-30 | Outpatient (CLI) | payer OTHER, SELFPAY ==
[2024-06-30 15:18] LABS: Absolute Lymphocyte Count 2.65 X10^3/uL (0.83-4.51); Absolute Neutrophil Count 9.7 X10^3/uL (2.0-7.7); Basophil# 0.03 X10^3/uL; Basophil% 0.2 % (0-1); Eosinophil# 0.21 X10^3/uL; Eosinophils% 1.6 % (0-5); Hematocrit 39.7 % (37-47); Hemoglobin 13.1 g/dL (12.0-15.0); Lymphocyte # 2.65 X10^3/ul (0.83-4.51); Mean Corpuscular Hgb 28.1 pg (27.0-32.0); Monocyte# 0.57 X10^3/uL; Monocyte% 4.3 % (0-10); NRBC Flagged by Analyzer 0 % (0-5); Neutrophil # 9.71 X10^3/uL (2.7-7.7); Neutrophil % 73.1 % (47-70); Platelet Count 303 K/mm3 (150-450); RBC Distribution Width CV 15.4 % (11.6-14.6); RBC Distribution Width SD 46.7 fl (35.1-43.9); Red Blood Count 4.67 M/mm3 (4.2-5.4); White Blood Count 13.3 K/mm3 (4.4-11.0)
[2024-06-30 16:50] LABS: Glucose Challenge Gest 1H 50g 113 mg/dL (70-140); HIV Nonreactive (Nonreactive); Syphilis Antibodies Nonreactive (Nonreactive)
== END | disposition home or self-care (01) ==
PROVIDERS: Obstetrics & Gynecology; Referring Provider Obstetrics & Gynecology; Visit Provider Obstetrics & Gynecology
DX: O09.92 Supervision of high risk pregnancy, unspecified, second trimester (principal); Z13.1 Encounter for screening for diabetes mellitus; Z3A.00 Weeks of gestation of pregnancy not specified
CPT/HCPCS: 36415; 82950; 85025; 86703; 86780

== ENCOUNTER → 2024-07-27 | Outpatient (CLI) | payer OTHER, SELFPAY ==
--- NOTE | 2024-07-27 14:06 | US_ITS ---
PROCEDURE: OB LIMITED WITH BIOMETRICS 07/27/2024 REASON FOR EXAM: GROWTH TECHNIQUE: High resolution obstetric ultrasound performed using a 2D transducer. Standard views obtained, including biometry, anatomy survey, and Doppler studies. FINDINGS Transabdominal imaging Single live intrauterine heart tones 131 beats per minute. Presentation is cephalic. Cervix is not well seen. PABLO 14.3 cm, maximum vertical pocket 5.0 cm Anterior fundal placenta appears within limits, not low-lying. Hypoechoic area is seen at the amniotic side of the placenta which may represent a possible placental Pop. DIMENSIONS: Biparietal Diameter: 8.4 cm/33 weeks 5 days, 86% Head Circumference: 31 cm/34 weeks 4 days, 81% Abdominal Circumference: 29.3 cm/33 weeks 2 days, 84% Femur Length: 6.0 cm/31 weeks 2 days, 20% FL/AC 21%, FL/BPD 72%, FL/HC 19%, CI 78%, HC/AC 1.1 ESTIMATED WEIGHT: 2072 g +/-311 g ESTIMATED WEIGHT PERCENTILE (24+ weeks): 68% Estimated age by current ultrasound 33 weeks 4 days, HITESH 09/10/2024 age by LMP 32 weeks 0 days, HITESH 09/21/2024 US/OB Limited With Biometrics IMPRESSION: Single live intrauterine with biometry as above. Anterior fundal placenta appears within limits, not low-lying. Hypoechoic area is seen at the amniotic side of the placenta which may represent a possible placental Pop. Reading Location: [id number]
== END | disposition home or self-care (01) ==
LOC: US 14:03
PROVIDERS: Referring Provider Obstetrics & Gynecology; Visit Provider Obstetrics & Gynecology
DX: O99.213 Obesity complicating pregnancy, third trimester (principal); Z3A.32 32 weeks gestation of pregnancy
CPT/HCPCS: 76816

== ENCOUNTER 2024-08-11 11:46 | Outpatient (CLI) | payer OTHER, SELFPAY ==
--- NOTE | 2024-08-11 11:49 | US_ITS ---
PROCEDURE: BIOPHYSICAL PROF W/O NON STRES 08/11/2024 REASON FOR EXAM: OBESITY DURING TECHNIQUE: High resolution obstetric ultrasound performed using a 2D transducer. Standard views obtained, including biometry, anatomy survey, and Doppler studies. COMPARISON: Prior study dated July 27, 2024. FINDINGS position: Cephalic heart rate: 144 beats per minute. Amniotic fluid: Within normal limits. Largest fluid pocket: 4.7 cm 10.4 cm. PABLO: 11.2 cm. Placenta location: Anterior and not low-lying. Biophysical profile: Breathing movements: 0 Gross body movements: 2 tone: 2 Amniotic fluid volume: 2 Total score: 6/8. US/Biophysical Prof W/O Non Stres IMPRESSION: biophysical profile score: 6/8. Reading Location: [place] [id number]
[2024-08-11 12:54] VITALS: PULSE 99; O2SAT 96
[2024-08-11 12:55] VITALS: BP 136/65; PULSE 101; RESP 13; TEMP 36.7; O2SAT 100
[2024-08-11 13:01] VITALS: BMI 47.5
[2024-08-11 13:27] VITALS: BP 128/89; PULSE 100
[2024-08-11 13:52] LABS: ROM Internal Control Test YES-OK TO RESULT pt. (Internal QC); ROM Patient Test Negative (Negative); Record Kit Lot#, ROM+ K3358
[2024-08-11] MEDS: Lactated Ringers 1,000 ML 999 ML IV (14:47)
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
== END 2024-08-11 16:00 | disposition home or self-care (01) ==
LOC: WPOUT 12:44 → US 12:47 → WP 12:48
PROVIDERS: Referring Provider Advanced Practice Midwife; Visit Provider Obstetrics & Gynecology
DX: O28.9 Unspecified abnormal findings on antenatal screening of mother (principal); O99.213 Obesity complicating pregnancy, third trimester; Z3A.34 34 weeks gestation of pregnancy
CPT/HCPCS: 96360; 59025; 59050; 76819; 84112; 99221; G0378

== ENCOUNTER → 2024-08-19 | Outpatient (CLI) | payer OTHER, SELFPAY ==
--- NOTE | 2024-08-19 12:51 | US_ITS ---
PROCEDURE: BIOPHYSICAL PROF W/O NON STRES 08/19/2024 REASON FOR EXAM: OBESITY DURING TECHNIQUE: High resolution obstetric ultrasound performed using a 2D transducer. Standard views obtained, including biometry, anatomy survey, and Doppler studies. COMPARISON: Prior study dated August 11, 2024. FINDINGS Number: 1 Position: Vertex Placental Position: Anterior and not low-lying. Placental Abnormalities: None ESTIMATED GESTATIONAL AGE: Baseline: 35 weeks and 2 days ESTIMATED DATE OF DELIVERY: Baseline: September 21, 2024 BIOPHYSICAL ASSESSMENT: Amniotic Fluid Volume: 7.1 cm Amniotic Fluid Index: 15.6 (8-24 cm normal range) Cardiac Motion: 136 beats per minute (average) Trunk and Limb Motion: Present. MATERNAL ANATOMY: Adnexa: Neither maternal ovary is successfully identified. Biophysical profile: Breathing movements: 2 Gross body movements: 2 tone: 2 Amniotic fluid volume: 2 Total score: 8/8 US/Biophysical Prof W/O Non Stres IMPRESSION: Normal biophysical profile. Reading Location: [facility]
== END | disposition home or self-care (01) ==
LOC: US 12:49
PROVIDERS: Referring Provider Advanced Practice Midwife; Visit Provider Advanced Practice Midwife
DX: O99.212 Obesity complicating pregnancy, second trimester (principal); Z3A.00 Weeks of gestation of pregnancy not specified
CPT/HCPCS: 76819

== ENCOUNTER → 2024-08-26 | Outpatient (CLI) | payer OTHER, SELFPAY ==
--- NOTE | 2024-08-26 12:13 | US_ITS ---
PROCEDURE: BIOPHYSICAL PROF W/O NON STRESS 08/26/2024 REASON FOR EXAM: OBESITY DURING TECHNIQUE: High resolution obstetric ultrasound performed using a 2D transducer. Standard views obtained, including biometry, anatomy survey, and Doppler studies. FINDINGS Number: Immediate prior exam was biophysical profile score cm from August 19, 2024 Position: Cephalic Placental Position: Anterior. Not low-lying Placental Abnormalities: None. Placenta is grade 1. DIMENSIONS: Biparietal Diameter: 9.5/38 weeks, 6 days Head Circumference: 33.6 cm/38 weeks 3 days Abdominal Circumference: 34.6 cm/30 weeks, 3 days Femur Length: 7.0 cm/35 weeks 5 days ESTIMATED WEIGHT: 3365 g plus or minus 502 g ESTIMATED WEIGHT PERCENTILE (24+ weeks): 90% ESTIMATED GESTATIONAL AGE: Baseline: 37 weeks, 6 days By Ultrasound: 37 weeks 6 days ESTIMATED DATE OF DELIVERY: Baseline: 619 2024 By Ultrasound: 619 2024 BIOPHYSICAL ASSESSMENT: Amniotic Fluid Volume: Within normal limits Amniotic Fluid Index: 13.2 cm (8-24 cm normal range) Cardiac Motion: 136 (average) Trunk and Limb Motion: Present. MATERNAL ANATOMY: Adnexa: Neither maternal ovary is successfully identified. Cervical Length (if measured): US/Biophysical Prof W/O Non Stres IMPRESSION: Biophysical profile score is 8/8. age by current and prior ultrasound: 37 weeks, 6 days. Estimated due craig e by current prior ultrasound: 09/11/2019 Reading [facility]
--- NOTE | 2024-08-26 12:13 | US_ITS ---
PROCEDURE: OB LIMITED WITH BIOMETRICS 08/26/2024 REASON FOR EXAM: GROWTH TECHNIQUE: High resolution obstetric ultrasound performed using a 2D transducer. Standard views obtained, including biometry, anatomy survey, and Doppler studies. COMPARISON: Prior study dated July 27, 2024. FINDINGS Number: 1 Position: Vertex Placental Position: Anterior and not low-lying. Placental Abnormalities: No evidence of previa. DIMENSIONS: Biparietal Diameter: 9.5 cm: 38 weeks and 6 days: 98 percentile/ Head Circumference: 33.6 cm: 38 weeks and 3 days: 73rd percentile/ Abdominal Circumference: 34.6 cm: 38 weeks and 3 days: 97 percentile/ Femur Length: 7 cm: 35 weeks and 5 days: 30 percentile/ ESTIMATED WEIGHT: 3315 g plus/-505 g ESTIMATED WEIGHT PERCENTILE (24+ weeks): 92 ESTIMATED GESTATIONAL AGE: Baseline: 36 weeks and 2 days By Ultrasound: 37 weeks and 6 days ESTIMATED DATE OF DELIVERY: Baseline: September 21, 2024 By Ultrasound: September 10, 2024 BIOPHYSICAL ASSESSMENT: Amniotic Fluid Volume: 4.8 cm Amniotic Fluid Index: 13.2 (8-24 cm normal range) Cardiac Motion: 136 beats per minute (average) Trunk and Limb Motion: Present. MATERNAL ANATOMY: Adnexa: Neither maternal ovary is successfully identified. US/OB Limited With Biometrics IMPRESSION: Single live intrauterine gestation with a mean gestational age of 37 weeks and 6 days. The measurements obtained today fall with the normal expected range. Reading Location: [place] [id number]
--- OUTSIDE RECORDS SUMMARY | 2024-08-26 21:11 | XMS RPT_ITS | CCD ---
Author Organization [facility] Care Team Providers Care [facility] Docent Name Role Phone DILLON KEY Unavailable Unavailable MARISSA HOOPER Unavailable Unavailable DILLON KEY Unavailable Unavailable MARISSA HOOPER Unavailable Unavailable Pending Provider Unavailable Unavailable Unavailable Unavailable Dr. Beverley Moncada Attending Provider LAURA PEREZ Primary Care Provider Unavailabl e LAURA PEREZ Referring Provider Unavailable Beata JACQUARD LOOM FIXER, JACQUARD LOOM FIXER-C Fariba Attending Provider Dr. Beverley Moncada Referring Provider Dr. Beverley Moncada Other Provider DEAN Jones Attending Provider DEAN Jones Other Provider Dr. Nenita Wells Attending Provider Dr. Beverley Moncada Attending Provider Care Physician, No Primary Primary Care Provider Unavailable Dr. Nenita Wells Admit Provider Dr. Nenita Wells Referring Provider Dr. Nenita Wells Other Provider DEAN Reyna Attending Provider Beata JACQUARD LOOM FIXER, JACQUARD LOOM FIXER-C Fariba Attending Provider Care Physician, No Primary Referring Provider Un available [place] JACQUARD LOOM FIXER, JACQUARD LOOM FIXER-C Radha Attending Provider SIDELL, LAURA W Primary Care Physician [phone] Pending, Provider Primary Care Unavailable MoomawSebastien Attending Unavailable Pending, Provider Primary Care Unavailable Aleida, Dr. Marilee Piña Attending Unavai jason Shin, Dr. Marilee Piña Referring Unavai lable Vivianamella, Alexander Primary Care Physician SIDELL, LAURA W Attending Unavailable Gudimella, Alexander Attending Unavailable Gudimella, Alexander Attending Unavailable Gudimella, Alexander Attending Unavailable Gudimella, Alexander Attending Unavailable Gudimella, Alexander Admitting Unavailable Gudimella, Alexander Attending Unavailable Gudimella, Alexander Referring Unavailable SIDELL, LAURA Referring Unavailable SIDELL, LAURA Primary Care Unavailable Candor PHYSICAL DIRECTOR, Laura Primary Care Provider [phone] Candor PHYSICAL DIRECTOR, Laura Primary Care Provider [phone] MARILEE DALLAS Attending Unavailable SIDELL, LAURA Primary Care Unavailable MARILEE DALLAS Admitting Unavailable LENARD SANTIAGO Attending Unavailable SELF, SELF Referring Unavailable SIDELL, LAURA Primary Care Unavailable IVANIA HAN Attending Unavailable SIDELL, LAURA W Primary Care Unavailable NENITA WELLS Referring Unavailabl e Care Physician, No Primary Primary Care Provider Unavailable Care Physician, No Primary Referring Provider Un available Ajit ZAPATA, Dr. Gutierres Attending Provider Dr. Nenita Wells MD Referring Provider [phone] Beata TURK-C, Fariba Attending Provider [phone] Beverley Moncada DO Attending Provider Dr. Nenita Wells MD Other Provider [phone] Tenisha Reyna CNM Attending Provider [phone] Care Physician, No Primary Primary Care Provider Unavailable Care Physician, No Primary Referring Provider Un available Dr. Nenita Wells MD Attending Provider [phone] Dr. Nenita Wells MD Referring Provider [phone] Tenisha Reyna CNM Referring Provider [phone] Nenita Wells Referring Unavailable Care Physician, No Primary Primary Care Unava ilable Nenita Wells Attending Unavailable Beata JACQUARD LOOM FIXER, Fariba Attending Unavailable Care Physician, No Primary Primary Care Unava ilable Care Physician, No Primary Referring Unava ilable Care Physician, No Primary Referring Unava ilable Beverley Moncada Attending Unavailabl e Care Physician, No Primary Primary Care Unava ilable Nenita Wells Attending Unavailable Nenita Wells Referring Unavailable Care Physician, No Primary Primary Care Unava ilable Care Physician, No Primary Primary Care Unava ilable Vidaony, Nenita Referring Unavailable Nenita Wells Attending Unavailable FIDELIA, RAVI Primary Care Unavailable Tenisha Reyna Referring Unavailable Tenisha Reyna Attending Unavailable Beverley Moncada Attending Unavailjung e Tenisha Reyna Referring Unavailable Care Physician, No Primary Primary Care Unava ilable Care Physician, No Primary Primary Care Unava ilable Vidaony, Nenita Referring Unavailable Ajit, Nenita Attending Unavailable Care Physician, No Primary Primary Care Unava ilable Care Physician, No Primary Referring Unava ilable Tenisha Reyna Attending Unavailable Nenita Wells Consulting Unavailable FIDELIA, RAVI Primary Care Unavailable Tenisha Reyna Referring Unavailable Tenisha Reyna Attending Unavailable Nenita Wells Attending Unavailable Care Physician, No Primary Primary Care Unava ilable Care Physician, No Primary Referring Unava ilable Care Physician, No Primary Primary Care Unava ilable Tenisha Reyna Attending Unavailable Care Physician, No Primary Referring Unava ilable Tenisha Reyna Attending Unavailable Tenisha Reyna Referring Unavailable Care Physician, No Primary Referring Unava ilable FIDELIA, RAVI Primary Care Unavailable Tenisha Reyna Attending Unavailable Care Physician, No Primary Primary Care Unava ilable Care Physician, No Primary Referring Unava ilable Nenita Wells Attending Unavailable Care Physician, No Primary Primary Care Unava ilable Beverley Moncada Attending Unavailabl e Care Physician, No Primary Referring Unava ilable Care Physician, No Primary Primary Care Unava ilable Care Physician, No Primary Referring Unava ilable Nenita Wells Attending Unavailable Beverley Moncada Attending Unavailabl e Beverley Moncada Consulting Unavailjung e Tenisha Reyna Referring Unavailable Care Physician, No Primary Primary Care Unava ilable Care Physician, No Primary Primary Care Unava ilable Nenita Wells Consulting Unavailable Ajit, Nenita Referring Unavailable Tenisha Reyna Attending Unavailable Care Physician, No Primary Primary Care Unava ilable Care Physician, No Primary Referring Unava ilable Nenita Wells Attending Unavailable Care Physician, No Primary Primary Care Unava ilable Care Physician, No Primary Referring Unava ilable Fariba Cota NP Attending Unavailable Care Physician, No Primary Primary Care Unava ilable Beverley Moncada Attending Unavailabl e Care Physician, No Primary Referring Unava ilable Care Physician, No Primary Primary Care Unava ilable Tenisha Reyna Referring Unavailable Tenisha Reyna Attending Unavailable Allergies Allergy Classification Reported Allergen(s) Allergy Type Date of Onset Reaction(s) Facility (1 source) Penicillins Drug allergy (disorder) [facility] Repository (1 source) Penicillins; Translations: [Penicillins] Allergy to drug (finding) [facility] [address] Work Phone: (1 source) Tdap; Translations: [Tdap] Allergy to drug (finding) [facility] [address] Work Phone: (10 sources) Amoxicillin Drug Allergy 2 Rash [facility] (11 sources) insect venom; Translations: [insect venom] Allergy to substance 2 unknown, Swelling [facility] Comment on above: Bee stings (10 sources) Pertussis Vaccines Allergy to substance 2 Other [facility] Comment on above: Unkonwn reaction. On ly had 1 vaccine due to some reaction- Has had a TDAP since and no reaction (6 sources) Chlorhexidine; Translations: [chlorhexidine containing compounds] Drug Allergy Eruption of skin (disorder) [facility] (6 sources) Penicillin; Translations: [penicillin] Drug Allergy Eruption (morphologic abnormality) [facility] (1 source) ALLERGIES NOT ON FILE; Translations: [ALLERGIES NOT ON FILE] Propensity to adverse reactions (disorder) [facility] Repository (1 source) Amoxicillin Drug Allergy 5 [facility] Repository (1 source) Pertussis Vaccine Drug Allergy 5 [facility] Repository Medications Current Medications Medication Drug Class(es) Dates Sig (Normalized) Sig (Original) azithromycin 250 mg oral tablet (1 source) Macrolide Antimicrobial Start: 03-10-2024 End: 03-15-2024 Azithromycin (Zithromax Z-Onesimo) 250 MG tablet Indications: Pneumonia of left lung due to infectious organism, unspecified part of lung Take 2 tablets (500 mg) on Day 1, then 1 tablet (250 mg) daily on Days 2-5 6 tablet 03/10/2024 03/15/2024 Active cetirizine hydrochloride 10 mg oral tablet (20 sources) Histamine-1 Receptor Antagonist Start: 05-18-2019 End: 05-21-2019 take 1 tablet by mouth once daily Cetirizine 10 mg tablet Active 10 mg PO DAILY May 21, 2019 5:14pm Start: 05-07-2019 take 1 capsule by [facility] once daily as needed Zyrtec Liquid Gels 10 mg oral capsule 10 mg = 1 cap(s), Oral, Daily, PRN for allergy symptoms, # 30 caplet(s), Refills(s) 0 Start Date: 05/07/19 Status: Ordered Zyrtec TABS Rishi tity: 0 Refills: 0 Ordered: 21-Nov-2021 DO Active contraceptive, oral (2 sources) contraceptive, o ral Take by mouth. Pt unsure of dosage. Pt reported Brian OCP Active escitalopram 10 mg oral tablet (16 sources) Serotonin Reuptake Inhibitor Start: 08-28-19 take 1 tablet by mouth once daily escitalopram 10 mg Tab 10 mg = 1 tab(s), Oral, Daily, # 90 tab(s), Refills(s) 1, Pharmacy: [facility] #[id number], 163, cm, 11/14/20 14:03:00 EDT, Height/Length Dosing, 115.4, kg, 11/14/20 14:07:00 EDT, Weight Dosing Start Date: 08/27/22 Status: Ordered Start: 05-18-2019 End: 03-13-2022 Escitalopram Oxalate 10 MG t ablet Discontinued 15 mg PO DAILY May 18, 2019 1:00am March 13, 2022 4:37pm Start: 05-18-2019 End: 03-13-2022 take 15 mg by mouth once daily Escitalopram Oxalate Di scontinued 15 MG PO DAILY May 18, 2019 1:00am March 13, 2022 4:37pm Start: 05-07-2016 Escitalopram O xalate 20 MG Oral Tablet Quantity: 30 Refills: 0 Ordered: 31-May-2016 DO Start : 07-May-2016 Active guaiFENesin 20 mg/ml oral solution (2 sources) Start: 10-12-2023 take 5 mL by mouth every six hours as needed guaifenesin 100 MG/5ML solution Take 5 mL by mouth every 6 hours as needed for Cold Symptoms for up to 2 days. 40 mL 10/12/2023 Active labetalol hydrochloride 200 mg oral tablet (4 sources) beta-Adrenergic Harsha Start: 10-14-2023 End: 11-13-2023 take 1 tablet by mouth every twelve hours Labetalol 200 MG tablet Take 1 tablet by mouth every 12 hours. 60 tablet 10/14/2023 Active Start: 10-14-2023 End: 10-14-2023 take 200 mg by mouth every twelve hours 200 mg, Oral, EVERY 12 HOURS, First dose on Fri10/14/23 at 0900, Until Discontinued Start: 10-13-2023 End: 10-14-2023 take 20 mg intravenously every four hours as needed 20 mg, Intravenous, EVERY 4 HOURS NEEDED, Starting on Fri10/13/23 at 2318, Until Fri10/14/23 at 1737, systolic blood pressure greater than 160, Administration duration: up to 20 mg over 2 minutes. melatonin 3 mg oral tablet (12 sources) Start: 05-07-2019 take 1 tablet by mouth once daily at bedtime as needed melatonin 3 mg Tab 3 mg = 1 tab(s), Oral, Once a day (at bedtime), PRN for insomnia, # 30 tab(s), Refills(s) 0 Start Date: 05/07/19 Status: Ordered Start: 08-04-2018 End: 05-21-2019 take 1 tablet by mouth at bedtime Melatonin 5 MG tablet Discontinued 5 mg PO AT BEDTIME August 04, 2018 12:00am May 21, 2019 5:14pm Multiple Vitamins with Iron oral tablet (5 sources) Start: 05-07-2019 Multiple Vitam ins with Iron oral tablet 1 tab(s), Oral, Daily, 30 tab(s), Refill(s) 0 Start Date: 05/07/19 Status: Ordered Multivit 65-Pmrd-Enwfti 1-Dha (Pnv-Dha) 27 mg iron-1 mg -300 mg capsule (2 sources) Start: 11-30-2021 Multivit 47-Ir on-Folate 1-Dha (Pnv-Dha) 27 mg iron-1 mg -300 mg capsule Active CAP PO November 30, 2021 12:00am Multivitamin With Iron tablet (5 sources) Start: 02-06-2024 Multivitamin W ith Iron tablet Active 1 {tbl} PO daily February 06, 2024 1:00am predniSONE 20 mg oral tablet (3 sources) Start: 03-10-2024 End: 03-16-2024 take 2 tablets by mouth once daily, then take 1 tablet by mouth once daily predniSONE 20 MG tablet Indications: Pneumonia of left lung due to infectious organism, unspecified part of lung Take 2 tablets by mouth daily for 3 days, THEN 1 tablet daily for 3 days. 40,40,40,20,20,20. 9 tablet 03/10/2024 03/16/2024 Active Start: 10-12-2023 End: 03-10-2024 predniSONE 10 MG tablet 4 ta bs daily x 3 days 3 tabs daily x 3 days 2 tabs daily x 3 days 1 tab daily x 3 days dc 30 tablet 10/12/2023 03/10/2024 Discontinued sertraline 50 mg oral tablet (19 sources) Serotonin Reuptake Inhibitor Start: 03-26-2024 take 2 tablets by mouth once daily Sertraline (Zoloft) 50 mg tablet Active 100 mg PO daily March 26, 2024 2:16pm Start: 02-24-2024 take 1 tablet by [facility] once daily Sertraline 100 MG tablet Take 1 tablet by mouth daily. 02/24/2024 Active Start: 02-18-2024 End: 03-26-2024 take 1 tablet by mouth once daily Sertraline (Zoloft) 50 mg tablet Discontinued 50 mg PO daily February 18, 2024 1:00am March 26, 2024 2:17pm Start: 03-13-2022 End: 02-06-2024 take 1 tablet by mouth once daily Sertraline (Zoloft) 50 mg tablet Discontinued 50 mg PO DAILY March 13, 2022 1:00am February 06, 2024 12:54pm thiamine 100 mg oral tablet (3 sources) Start: 10-14-2023 End: 11-14-2023 take 1 tablet by mouth once daily Thiamine 100 MG tablet Take 1 tablet by mouth daily. 30 tablet 10/15/2023 Active traZODone hydrochloride 50 mg oral tablet (5 sources) Serotonin Reuptake Inhibitor Start: 10-01-2022 take 1 tablet by mouth once daily at bedtime traZODONE 50 mg Tab 50 mg = 1 tab(s), Oral, Once a day (at bedtime), # 90 tab(s), Refills(s) 1, Pharmacy: [facility] #[id number], 163, cm, 10/01/22 9:32:00 EDT, Height/Length Dosing, 111.7, kg, 10/01/22 9:32:00 EDT, Weight Dosing Start Date: 10/01/22 Status: Ordered Start: 06-07-2021 take 1 tablet by [facility] once daily at bedtime traZODONE 50 mg Tab 50 mg = 1 tab(s), Oral, Once a day (at bedtime), # 90 tab(s), Refills(s) 1, Pharmacy: [facility] #[id number], 163, cm, 11/14/20 14:03:00 EDT, Height/Length Dosing, 115.4, kg, 11/14/20 14:07:00 EDT, Weight Dosing Start Date: 06/07/21 Status: Ordered Completed/Discontinued Medications Medication Drug Class(es) Dates Sig (Normalized) Sig (Original) acetaminophen 325 mg oral tablet (2 sources) Start: 10-10-2023 End: 10-14-2023 take 1 tablet by mouth every four hours as needed 650 mg, Oral, EVERY 4 HOURS NEEDED, Starting on Fri10/10/23 at 2356, Until Fri10/14/23 at 1737, Mild Pain, Oral temp > 100.4 F Start: 10-10-2023 End: 10-10-2023 take 4000 mg by mouth every twenty-four hours 975 mg, Oral, ONCE, 1 dose, On Fri10/10/23 at 2145, Maximum dose of acetaminophen is 4000 mg from all sources in 24 hours. acetylcysteine 600 mg oral capsule (1 source) Antidote, Mucolytic, Antidote for Acetaminophen Overdose Start: 10-12-2023 End: 10-14-2023 take 1200 mg by mouth every twelve hours 1,200 mg, Oral, EVERY 12 HOURS, First dose on Fri10/12/23 at 2100, Until Discontinued 20 ml albumin human, fci 250 mg/ml injection (1 source) Human Serum Albumin Start: 10-13-2023 End: 10-13-2023 50 g, Intravenous, Administer over 60 Minutes, ONCE, 1 dose, On Fri10/13/23 at 0630, At [facility], in emergencies, administer as rapidly as necessary to improve clinical conditions. Rate of infusion is based on dose: 12.5g given over 30min, 25g given over 60min, 50g given over 120min., Indications: Fluid Resuscitation albuterol 0.833 mg/ml / ipratropium bromide 0.167 mg/ml inhalation solution (3 sources) Anticholinergic, beta2-Adrenergic Agonist Start: 10-12-2023 End: 10-14-2023 take 3 mL by inhalation every six hours 3 mL, Nebulization, EVERY 6 HOURS NON-STANDARD, First dose (after last modification) on Fri10/12/23 at 1900, Until Discontinued Start: 10-11-2023 End: 10-12-2023 3 mL, Nebulization, EVERY 4 HOURS, First dose on Fri10/11/23 at 0045, Until Discontinued Start: 10-10-2023 End: 10-10-2023 3 mL, Nebulization, ONCE, 1 dose, On Fri10/10/23 at 2145 aluminum hydroxide 40 mg/ml / magnesium hydroxide 40 mg/ml / simethicone 4 mg/ml oral suspension (1 source) Start: 10-11-2023 End: 10-14-2023 take 30 mL by mouth every six hours as needed 30 mL, Oral, EVERY 6 HOURS NEEDED, Starting on Fri10/11/23 at 0843, Until Fri10/14/23 at 1737, Indigestion, Per 5 mL is equivalent to: (Alum-Mag Hydroxide 200-225 mg and Simethicone 20 mg) and (Alum-Mag Hydroxide 200-200 mg and Simethicone 20 mg) Azithromycin (ZITHROMAX) 500 mg in Sodium chloride 0.9% 250 mL (total volume) IVPB (1 source) Start: 10-11-2023 End: 10-11-2023 500 mg, Intravenous, Administer over 60 Minutes, ONCE, 1 dose, On Fri10/11/23 at 0015 busPIRone hydrochloride 10 mg oral tablet (1 source) Start: 05-07-2016 busPIRone HCl - 10 MG Oral Tablet Quantity: 60 Refills: 0 Ordered: 31-May-2016 DO Start : 07-May-2016 Active calcium chloride 0.0014 meq/ml / potassium chloride 0.004 meq/ml / sodium chloride 0.103 meq/ml / sodium lactate 0.028 meq/ml injectable solution (1 source) Start: 10-12-2023 End: 10-12-2023 1,000 mL, Intravenous, ONCE, 1 dose, On Fri10/12/23 at 1445 cefTRIAXone (ROCEPHIN) 2 g in sodium chloride 0.9% (MB PLUS) 50 mL (total volume) IVPB (1 source) Start: 10-10-2023 End: 10-10-2023 2 g, Intravenous, Administer over 30 Minutes, ONCE, 1 dose, On Fri10/10/23 at 2245 docusate sodium 100 mg oral capsule (1 source) Start: 10-11-2023 End: 10-14-2023 take 100 mg by mouth twice daily as needed for constipation 100 mg, Oral, 2 TIMES DAILY NEEDED, Starting on 10/11/23 at 0843, Until 10/14/23 at 1737, Constipation 1st Line Norethindrone-E.Estra diol-Iron (10 sources) Estrogen Start: 08-04-2018 End: 11-30-2021 Norethindrone-E.Est radiol-Iron 1.5-30( tablet Discontinued 1 {tbl} PO DAILY August 04, 2018 12:00am November 30, 2021 11:18am Start: 08-04-2018 End: 11-30-2021 take 1 tablet by mouth once daily Norethindrone-E.Estradiol-Iron Discontin ued 1 TABLET PO DAILY August 04, 2018 12:00am November 30, 2021 11:18am L Norgest/E.Estradiol-E.Estrad (11 sources) Progestin, Estrogen, Progestin-containing Intrauterine Device Start: 09-23-2022 End: 12-31-2022 L Norgest/E.Estradiol-E.Estrad (Ashlyna) 0.15 mg-30 mcg (84)/10 mcg (7) tablets,dose pack,3 month Discontinued 1 {tbl} .Route DAILY September 23, 2022 12:00am December 31, 2022 7:10pm 1 TAB daily; Start: 07-30-2022 End: 08-22-2022 take 1 tablet by mouth once daily L Norgest/E.Estradiol-E.Estrad (Ashlyna) 0.15 mg-30 mcg (84)/10 mcg (7) tablets,dose pack,3 month Discontinued 1 {tbl} PO DAILY July 30, 2022 12:00am August 22, 2022 4:28pm Start: 07-30-2022 take 1 tablet by [facility] th once daily L Norgest/E.Estradiol-E.Estrad (Ashlyna) 0.15 mg-30 mcg (84)/10 mcg (7) tablets,dose pack,3 month Active 1 TABLET PO DAILY July 30, 2022 12:00am ethinyl estradiol 0.03 mg / norethindrone acetate 1.5 mg oral tablet (15 sources) Estrogen Start: 12-31-2022 End: 02-06-2024 take 1 tablet by mouth once daily Norethindrone Ac-Eth Estradiol (Brian 1.5/30 (21)) 1.5-30 mg-mcg tablet Discontinued 1 {tbl} PO DAILY November 11, 2023 1:31pm February 06, 2024 12:53pm take only active pills, discard inactive and start new pack immediately Start: 05-15-2021 Brian 1.5/30 o ral tablet 1 tab(s), Oral, Daily, 84 tab(s), Refill(s) 1, [facility] #[id number], 163, cm, 11/14/20 14:03:00 EDT, Height/Length Dosing, 115.4, kg, 11/14/20 14:07:00 EDT, Weight Dosing Start Date: 05/15/21 Status: Ordered fluconazole 150 mg oral tablet (6 sources) Azole Antifungal Start: 07-17-2022 End: 07-30-2022 take 1 tablet by mouth once daily Fluconazole (Diflucan) 150 mg tablet Discontinued 150 mg PO DAILY 1 July 17, 2022 12:00am July 30, 2022 11:09am iohexol (OMNIPAQUE) 350 MG/ML injection 75 mL (1 source) Start: 10-11-2023 End: 10-11-2023 75 mL, Intravenous, ONCE, 1 dose, On Fri10/11/23 at 1715, Extravasation Risk, Radiology Procedure Iron (10 sources) Start: 12-07-2021 End: 07-30-2022 take 1 capsule by mouth once daily Pnv 221-Vqac-Wevrxh-Dha (Vitafol Fe Plus) 90 mg iron- 1 mg-200 mg capsule Discontinued 1 NMA PO DAILY December 07, 2021 12:00am July 30, 2022 11:10am Start: 12-07-2021 End: 07-30-2022 take 1 capsule by mouth once daily Pnv 600-Voaz-Kfmzqc-Dha (Vitafol Fe Plus) 90 mg iron- 1 mg-200 mg capsule Discontinued 1 CAP PO DAILY December 07, 2021 12:00am July 30, 2022 11:10am Start: 12-07-2021 take 1 capsule by [facility] once daily Pnv 650-Ktud-Tfttlj-Dha (Vitafol Fe Plus) 90 mg iron- 1 mg-200 mg capsule Active 1 CAP PO DAILY December 07, 2021 12:00am 1 ml ketorolac tromethamine 30 mg/ml cartridge (2 sources) Nonsteroidal Anti-inflammatory Drug, Cyclooxygenase Inhibitor Start: 10-10-2023 End: 10-14-2023 take 30 mg intravenously every six hours as needed 30 mg, Intravenous, EVERY 6 HOURS NEEDED, Starting on Fri10/10/23 at 2356, Until Fri10/14/23 at 1737, Moderate Pain Start: 10-10-2023 End: 10-10-2023 30 mg, Intravenous, ONCE, 1 dose, On Fri10/10/23 at 2230 lamoTRIgine 100 mg oral tablet (20 sources) Mood Stabilizer, Anti-epileptic Agent Start: 10-11-2023 End: 10-14-2023 take 200 mg by mouth once daily 200 mg, Oral, DAILY, First dose on Fri10/11/23 at 0945, Until Discontinued Start: 05-18-2019 take 1 tablet by [facility] once daily Lamotrigine 200 MG tablet Active 200 mg PO DAILY May 18, 2019 1:00am Start: 05-07-2016 lamoTRIgine 10 0 MG Oral Tablet Quantity: 30 Refills: 0 Ordered: 31-May-2016 DO Start : 07-May-2016 Active Start: 04-10-2016 lamoTRIgine 25 MG Oral Tablet Quantity: 60 Refills: 0 Ordered: 10-Apr-2016 DO Start : 10-Apr-2016 Active take 2 tablets by mo uth once daily lamoTRIgine 100 MG tablet Take 2 tablets by mouth daily. Active levoFLOXacin (3 sources) Quinolone Antimicrobial Start: 10-13-2023 End: 10-14-2023 750 mg, Oral, DAILY, First dose on 10/13/23 at 1015, Until Discontinued, Avoid antacid, iron, dairy, sucralfate, and tube feed administration for 1 hour before and 2 hours after dose. Start: 10-12-2023 End: 10-20-2023 take 1 tablet by mouth once daily levoFLOXacin 750 MG tablet Take 1 tablet by mouth daily for 8 days. 8 tablet 10/12/2023 10/20/2023 Active Start: 10-11-2023 End: 10-13-2023 take 750 mg intravenously every twenty-four hours 750 mg, Intravenous, Administer over 90 Minutes, EVERY 24 HOURS, First dose on 10/11/23 at 1230, Until Discontinued loratadine 10 mg oral tablet (1 source) Start: 10-11-2023 End: 10-14-2023 take 10 mg by mouth once daily 10 mg, Oral, DAILY, First dose on 10/11/23 at 0945, Until Discontinued 50 ml magnesium sulfate 40 mg/ml injection (1 source) Start: 10-12-2023 End: 10-14-2023 2 g, Intravenous, Administer over 4 Hours, DAILY, First dose on 10/12/23 at 0600, Until Discontinued, Give if magnesium is less than 2 on morning labs. Infuse at a rate of 0.5 gm/hour. methylPREDNISolone 40 mg injection (2 sources) Corticosteroid Start: 10-11-2023 End: 10-14-2023 80 mg, Intravenous, EVERY 8 HOURS, First dose on 10/11/23 at 0000, Until Discontinued Start: 10-10-2023 End: 10-10-2023 125 mg, Intravenous, ONCE, 1 dose, On Fri10/10/23 at 2245 mupirocin 0.02 mg/mg topical ointment (5 sources) RNA Synthetase Inhibitor Antibacterial Start: 09-04-2022 End: 02-06-2024 Mupirocin 2 % ointment Discontinued 1 NMA TOPICAL THREE TIMES A DAY September 04, 2022 12:00am February 06, 2024 12:53pm Apply 3 x per day to rash naproxen 500 mg oral tablet (10 sources) Nonsteroidal Anti-inflammatory Drug Start: 05-18-2019 End: 05-21-2019 take 1 tablet by mouth twice daily as needed for pain Naproxen 500 MG tablet Discontinued 500 mg PO TWICE DAILY NEEDED as needed for Pain Score 4-10/10 May 18, 2019 5:41pm May 21, 2019 5:14pm norethindrone 0.35 mg oral tablet (5 sources) Start: 08-22-2022 End: 09-23-2022 take 1 tablet by mouth once daily Norethindrone (Contraceptive) (Ortho Micronor) 0.35 mg tablet Discontinued 0.35 mg PO DAILY 90 August 22, 2022 12:00am September 23, 2022 11:31am ondansetron 4 mg disintegrating oral tablet (10 sources) Serotonin-3 Receptor Antagonist Start: 12-06-2021 End: 02-06-2024 take 1 tablet by mouth every six hours as needed for nausea and vomiting Ondansetron 4 mg tablet,disintegra ting Discontinued 4 mg PO EVERY 6 HOURS as needed for nausea and vomiting December 06, 2021 12:00am February 06, 2024 12:54pm Ondansetron 4mg/2ml (ZOFRAN) injection 4 mg (1 source) Start: 10-11-2023 End: 10-14-2023 take 4 mg intravenously every six hours as needed Ondansetron 4mg/2ml (ZOFRAN) injection 4 mg Potassium Chloride (2 sources) Start: 10-12-2023 End: 10-12-2023 40 mEq, Oral, ONCE, 1 dose, On 10/12/23 at 1330, Swallow tablets whole; do not crush, chew, or suck on tablet. Tablet may also be broken in half and each half swallowed separately. Start: 10-11-2023 End: 10-14-2023 Potassium chloride (K-DUR) t ablet ER 40 mEq Vitamins TABS (1 source) Vitamin s TABS Quantity: 0 Refills: 0 Ordered: 21-Nov-2021 DO Active promethazine hydrochloride 12.5 mg oral tablet (15 sources)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 Testing performed at [address] [address] cHCO3 (P,ST)C 24.5 mEq/L Normal 22-26 [facility] Comment on above: Performed By: #### C OVID #### Testing performed at [address] [address] ctHb 11.6 g/dl [facility] Comment on above: Performed By: #### C OVID #### Testing performed at [address] [address] FCOHb 1.2 % [facility] Comment on above: Performed By: #### C OVID #### Testing performed at [address] [address] FMetHb 0.9 % [facility] Comment on above: Performed By: #### C OVID #### Testing performed at [address] [address] FO2Hb 93.1 % [facility] Comment on above: Performed By: #### C OVID #### Testing performed at [address] [place] [address] NOTES: ROOM AIR [facility] Comment on above: Performed By: #### C OVID #### Testing performed at [address] [address] O2 DEVICE ROOM AIR [facility] Comment on above: Performed By: #### C OVID #### Testing performed at [address] [place] [address] [address] SOB [facility] Comment on above: Performed By: #### C OVID #### Testing performed at [address] [address] PATIENT O2 SETTINGS 21 [facility] Comment on above: Performed By: #### C OVID #### Testing performed at [address] [place] [address] pCO2, arterial 30 mmHg Low 35-45 [facility] Comment on above: Performed By: #### C OVID #### Testing performed at [address] [address] pH, arterial 7.52 High 7.350-7.450 [facility] Comment on above: Performed By: #### C OVID #### Testing performed at [address] [address] pO2,arterial 65 mmHg Low 80-100 [facility] Comment on above: Performed By: #### C OVID #### Testing performed at [address] [address] SAMPLE SITE RIGHT RADIAL Normal [facility] Comment on above: Performed By: #### C OVID #### Testing performed at [address] [address] sO2,arterial 95.1 % Normal 95-100 [facility] Comment on above: Performed By: #### C OVID #### Testing performed at [address] [address] C REACTIVE PROTEINon CRP [Mass/Vol] 16.1 mg/L High 0 - 10 MG/L [facility] CRP [Mass/Vol] 16.1 mg/L High 0-10 [facility] Comment on above: Performed By: #### U MAC, UMIC #### Testing performed at [address] [address] CBCon 10-13-2023 ABSOLUTE BAS 0.0 10*3/uL Normal 0.0-0.2 [facility] Comment on above: Performed By: #### U MAC, UMIC #### Testing performed at [address] [address] ABSOLUTE EOS 0.0 10*3/uL Normal 0.0-0.7 [facility] Comment on above: Performed By: #### U MAC, UMIC #### Testing performed at [address] [address] ABSOLUTE NEUTROPHIL COUNT 12.7 10*3/uL High 1.4-6.5 [facility] Comment on above: Performed By: #### U MAC, UMIC #### Testing performed at [address] [address] Basophils/100 WBC (Bld) 0.1 % Normal 0.0-2.0 [facility] Comment on above: Performed By: #### U MAC, UMIC #### Testing performed at [address] [address] DTYPE AUTO DIFF Normal [facility] Comment on above: Performed By: #### U MAC, UMIC #### Testing performed at [address] [address] Eosinophils/100 WBC (Bld) 0.0 % Normal 0.0-11.0 [facility] Comment on above: Performed By: #### U MAC, UMIC #### Testing performed at [address] [address] Lymphocytes (Bld) [#/Vol] 2.5 10*3/uL Normal 1.2-3.4 [facility] Comment on above: Performed By: #### U MAC, UMIC #### Testing performed at [address] [address] Lymphocytes/100 WBC (Bld) 15.8 % Low 20.0-55.0 [facility] Comment on above: Performed By: #### U MAC, UMIC #### Testing performed at [address] [address] Monocytes (Bld) [#/Vol] 0.5 10*3/uL Normal 0.0-0.7 [facility] Comment on above: Performed By: #### U MAC, UMIC #### Testing performed at [address] [address] Monocytes/100 WBC (Bld) 3.4 % Normal 0.0-10.0 [facility] Comment on above: Performed By: #### U MAC, UMIC #### Testing performed at [address] [address] Neutrophils/100 WBC (Bld) 80.7 % High 37.0-75.0 [facility] Comment on above: Performed By: #### U MAC, UMIC #### Testing performed at [address] [address] Erythrocyte distribution width (RBC) [Ratio] 14.9 % High 11.5-14.5 [facility] Comment on above: Performed By: #### U MAC, UMIC #### Testing performed at [address] [address] Hematocrit (Bld) [Volume fraction] 34.6 % Low 36.0-48.0 [facility] Comment on above: Performed By: #### U MAC, UMIC #### Testing performed at [address] [address] Hemoglobin (Bld) [Mass/Vol] 11.7 g/dL Low 12.0-16.0 [facility] Comment on above: Performed By: #### U MAC, UMIC #### Testing performed at [address] [address] MCH (RBC) [Entitic mass] 28.1 pg Normal 26.0-35.0 [facility] Comment on above: Performed By: #### U MAC, UMIC #### Testing performed at [address] [address] MCHC (RBC) [Mass/Vol] 33.8 g/dL Normal 27.0-37.0 [facility] Comment on above: Performed By: #### U MAC, UMIC #### Testing performed at [address] [address] MCV (RBC) [Entitic vol] 83.1 fL Normal 80.0-100.0 [facility] Comment on above: Performed By: #### U MAC, UMIC #### Testing performed at [address] [address] Platelet mean volume (Bld) [Entitic vol] 7.6 fL Normal 7.4-11.0 [facility] Comment on above: Performed By: #### U MAC, UMIC #### Testing performed at [address] [address] Platelets (Bld) [#/Vol] 325 10*3/uL Normal 130-400 [facility] Comment on above: Performed By: #### U MAC, UMIC #### Testing performed at [address] [address] RBC (Bld) [#/Vol] 4.16 10*6/uL Normal 4.0-5.4 [facility] Comment on above: Performed By: #### U MAC, UMIC #### Testing performed at [address] [address] WBC (Bld) [#/Vol] 15.7 10*3/uL High 3.6-11.0 [facility] Comment on above: Performed By: #### U [facility], UMIC #### Testing performed at [facility] [address] [place] [address] CBC, EDIF, PLATELETon 2023 ABSOLUTE BASOPHIL COUNT 0.0 10*3/uL 0.0 - 0.2 10*3/uL [facility] Basophils/100 WBC (Bld) 0.1 % 0.0 - 2.0 % [facility] Differential cell count method Nom (Bld) AUTO DIFF % [facility] Eosinophils (Bld) [#/Vol] 0.0 10*3/uL 0.0 - 0.7 10*3/uL [facility] Eosinophils/100 WBC (Bld) 0.0 % 0.0 - 11.0 % [facility] Erythrocyte distribution width (RBC) [Ratio] 14.9 % High 11.5 - 14.5 % [facility] Hematocrit (Bld) [Volume fraction] 34.6 % Low 36.0 - 48.0 % [facility] Hemoglobin (Bld) [Mass/Vol] 11.7 g/dL Low [facility] Interpretation and review of laboratory results Abnormal [facility] Lymphocytes (Bld) [#/Vol] 2.5 10*3/uL 1.2 - 3.4 10*3/uL [facility] Lymphocytes/100 WBC (Bld) 15.8 % Low 20.0 - 55.0 % [facility] MCH (RBC) [Entitic mass] 28.1 pg 26.0 - 35.0 PG [facility] MCHC (RBC) [Mass/Vol] 33.8 g/dL [facility] MCV (RBC) [Entitic vol] 83.1 fL [facility] Monocytes (Bld) [#/Vol] 0.5 10*3/uL 0.0 - 0.7 10*3/uL [facility] Monocytes/100 WBC (Bld) 3.4 % 0.0 - 10.0 % [facility] Neutrophils (Bld) [#/Vol] 12.7 10*3/uL High 1.4 - 6.5 10*3/uL [facility] Neutrophils/100 WBC (Bld) 80.7 % High 37.0 - 75.0 % [facility] Platelet mean volume (Bld) [Entitic vol] 7.6 fL [facility] Platelets (Bld) [#/Vol] 325 10*3/uL 130 - 400 10*3/uL [facility] RBC (Bld) [#/Vol] 4.16 10*6/uL 4.0 - 5.4 10*6/uL [facility] WBC (Bld) [#/Vol] 15.7 10*3/uL High 3.6 - 11.0 10*3/uL [facility] Cardiac echo study Procedure on 10-13-2023 ADDE NDUM APPROVED REPORT Other Information Study Quality: Good Conclusion Normal LV size and function, ejection fraction 60 65 percent Normal RV size and function Mild left atrial enlargement Mild, 1+ mitral regurgitation Mild, one 2+ tricuspid regurgitation with mild pulmonary hypertension at 35 mmHg Trivial pericardial effusion No previous study for comparison Left Ventricle The left ventricle is normal size. Left ventricular systolic function is normal. There is normal left ventricular wall thickness. There is normal LV segmental wall motion. The left ventricular diastolic function is normal. LVEF is 60-65%. Right Ventricle The right ventricle is normal size. The right ventricular systolic function is normal. Atria Left atrium is mildly dilated. Right atrium is borderline dilated. Aortic Valve The aortic valve is normal in structure. There is no aortic valvular stenosis. No aortic regurgitation is present. Mitral Valve The mitral valve is normal in structure. Mild mitral regurgitation. Tricuspid Valve The tricuspid valve is normal in structure. Mild tricuspid regurgitation. The RVSP is _35 mmHg. Pulmonic Valve The pulmonary valve is normal in structure. Great Vessels The aortic root is normal in size. Pericardium Trace pericardial effusion. EXAM: Comprehensive 2D, Doppler, and color-flow Echocardiogram Imaging system used: [employer] 2D Dimensions IVSd 1.0 cm F: 0.6-0.9 LVEF (Tavarez's) 75.66 % F: 54 - 74 PWd 1.0 cm F: 0.6 - 0.9 EF AP4-a2DQ 71.27 % LVDd 5.4 cm F: 3.8 - 5.2 EF AP2-a2DQ 79.24 % LVDs 3.15 cm F: 2.2 - 3.5 EF BP-a2DQ 75.66 % Aortic Root 2.75 cm F: 2.7 - 3.3 LVESV 22 mL Aortic Root Index 1.2 cm/m2 LVEDV 89.28 mL F: 46 - 106 Ascending Aorta 3.26 cm F: 2.3 - 3.1 LV Volume Index 40.40 mL/m2 F: 29 - 61 Ascending Aorta Index: 1.5 cm/m2 LA Volume 42.7 mL Left Atrium 4.28 cm F: 2.7 - 3.8 LA Volume Index 19.32 mL/m2 (M/F) 16-34 LVOT 2.03 cm (M/F) 1.5-2.5 RV Major 3.62 cm TAPSE 1.9 >1.7 cm RV Minor 6.87 cm IVC 1.7 cm RVIDd 2.93 cm (M/F) 2.5-4.1 Right Atrium 5.0 cm (M/F) 2.9-4.5 LV Diastology E/A Ratio 1.8 Septal E' 0.14 (>=.07 m/s) LAT E' 0.15 (>=.10 m/s) Aortic Valve LVOT Max 0.96 (0.7-1.1 m/s) LVOT VTI 23.44 cm LVOT Peak GR 3.67 mmHg LVOT Mean GR 2.23 mmHg AV DI 0.74 (>0.25) AoV Peak Abisai. 1.50 (0.5-1.3 m/s) AV Vmean 1.07 m/s AO Peak GR. 9.04 mmHg AO Mean GR. 5.17 (<5 mmHg) AO VTI 31.9 (18-25 cm) SHERRILL (VTI) 2.39 (2.5-4.5 cm2) Mitral Valve MV E Max Abisai. 1.0 (0.4-1.3 m/s) MVA VTI 2.2 (4.0-6.0 cm2) MV A Velocity 0.56 (0.4-1.3 m/s) E/A Ratio 1.87 MV Vmean 0.83 m/s MV Mean Gr. 2.97 (<2mmHg) MV PHT 55.78 ms MVA PHT 3.94 cm2 MV Dec Kenton 482.74 cm/s2 MV Decel. Time 223.67 (160-240 ms) Pulmonary Valve PV Peak Velocity 1.0 (0.5-1.5 m/s) MI End VMAX 1.8 m/s PV maxPG 4.0 mmHg PV Vmax 1.0 m/s MI End PG 8.93 mmHg Tricuspid Valve TR P. Velocity 2.60 m/s RAP Estimate 8 mmHg RVSP 35.13 mmHg TR maxPG 27.13 mmHg S' 0.13 m/s M-Mode Aortic Cusp Exc 1.79 cm CARDIOLOGY Denny Pineda, DO - 10/13/2023 ADDENDUM APPROVED REPORT Other Information Study Quality: Good Conclusion Normal LV size and function, ejection fraction 60 65 percent Normal RV size and function Mild left atrial enlargement Mild, 1+ mitral regurgitation Mild, one 2+ tricuspid regurgitation with mild pulmonary hypertension at 35 mmHg Trivial pericardial effusion No previous study for comparison Left Ventricle The left ventricle is normal size. Left ventricular systolic function is normal. There is normal left ventricular wall thickness. There is normal LV segmental wall motion. The left ventricular diastolic function is normal. LVEF is 60-65%. Right Ventricle The right ventricle is normal size. The right ventricular systolic function is normal. Atria Left atrium is mildly dilated. Right atrium is borderline dilated. Aortic Valve The aortic valve is normal in structure. There is no aortic valvular stenosis. No aortic regurgitation is present. Mitral Valve The mitral valve is normal in structure. Mild mitral regurgitation. Tricuspid Valve The tricuspid valve is normal in structure. Mild tricuspid regurgitation. The RVSP is _35 mmHg. Pulmonic Valve The pulmonary valve is normal in structure. Great Vessels The aortic root is normal in size. Pericardium Trace pericardial effusion. EXAM: Comprehensive 2D, Doppler, and color-flow Echocardiogram Imaging system used: [employer] 2D Dimensions IVSd 1.0 cm F: 0.6-0.9LVEF (Tavarez's)75.66 % F: 54 - 74 PWd 1.0 cm F: 0.6 - 0.9EF AP4-a2DQ71.27 % LVDd 5.4 cm F: 3.8 - 5.2EF AP2-a2DQ79.24 % LVDs 3.15 cm F: 2.2 - 3.5EF BP-a2DQ75.66 % Aortic Root 2.75 cm F: 2.7 - 3.2ZDKMK50 mL Aortic Root Index1.2 cm/p9YAVEQ50.28 mL F: 46 - 106 Ascending Aorta 3.26 cm F: 2.3 - 3.1LV Volume Index40.40 mL/m2 F: 29 - 61 Ascending Aorta Index: 1.5 cm/m2LA Gdfwyp69.7 mL Left Atrium 4.28 cm F: 2.7 - 3.8LA Volume Index19.32 mL/m2 (M/F) 16-34 LVOT2.03 cm (M/F) 1.5-2.5RV Major 3.62 cm TAPSE 1.9 >1.7 cmRV Minor6.87 cm IVC1.7 cmRVIDd2.93 cm (M/F) 2.5-4.1 Right Atrium 5.0 cm (M/F) 2.9-4.5 LV Diastology E/A Ratio 1.8Septal E'0.14 (>=.07 m/s) LAT E'0.15 (>=.10 m/s) Aortic Valve LVOT Max0.96 (0.7-1.1 m/s)LVOT VTI23.44 cm LVOT Peak GR3.67 mmHgLVOT Mean GR2.23 mmHg AV DI0.74 (>0.25)AoV Peak Abisai.1.50 (0.5-1.3 m/s) AV Vmean 1.07 m/Leigh Peak GR.9.04 mmHg AO Mean GR.5.17 (<5 mmHg)AO VTI31.9 (18-25 cm) SHERRILL (VTI)2.39 (2.5-4.5 cm2) Mitral Valve MV E Max Abisai.1.0 (0.4-1.3 m/s)MVA VTI 2.2 (4.0-6.0 cm2) MV A Velocity0.56 (0.4-1.3 m/s)E/A Ratio1.87 MV Vmean0.83 m/sMV Mean Gr.2.97 (<2mmHg) MV PHT55.78 msMVA PHT3.94 cm2 MV Dec Kenton 482.74 cm/s2MV Decel. Mphg489.67 (160-240 ms) Pulmonary Valve PV Peak Velocity1.0 (0.5-1.5 m/s)MI End VMAX1.8 m/s PV maxPG4.0 mmHgPV Vmax1.0 m/s MI End PG 8.93 mmHg Tricuspid Valve TR P. Velocity2.60 m/sRAP Estimate8 mmHg RVSP35.13 mmHgTR maxPG 27.13 mmHg S'0.13 m/s M-Mode Aortic Cusp Exc1.79 cm [facility] Radiology Study observation (narrative) [facility] Cardiac echo study Procedure Ordered By: Denny Pineda on 10-13-2023 [facility] [employer] Work Phone: ESRon 10-13-2023 ESR (Bld) [Velocity] 43 mm/h High 0-15 [facility] Comment on above: Performed By: #### U MAC, IC #### Testing performed at [address] [address] LACTATE, BLOODon 10-13-2023 Interpretation and review of laboratory results Abnormal [facility] Lactate [Moles/Vol] 4.6 mmol/L Critically high 0.7 - 2.0 mmol/L [facility] Comment on above: PLEASE REPEAT INITIA L CRITICAL IN 3 HOURS IF ED OR INPATIENT SEPSIS PATIENT Result called to read back by: KENNA 10/13/2023 @ 11:39 by BASTING PULLER [facility] Interpretation and review of laboratory results Abnormal [facility] Lactate [Moles/Vol] 5.0 mmol/L Critically high 0.7 - 2.0 mmol/L [facility] Comment on above: PLEASE REPEAT INITIA L CRITICAL IN 3 HOURS IF ED OR INPATIENT SEPSIS PATIENT Result called to read back by: JARETT NAIR 10/13/2023 @ 05:30 by HRE [facility] Interpretation and review of laboratory results Abnormal [facility] Lactate [Moles/Vol] 4.2 mmol/L Critically high 0.7 - 2.0 mmol/L [facility] Comment on above: PLEASE REPEAT INITIA L CRITICAL IN 3 HOURS IF ED OR INPATIENT SEPSIS PATIENT Result called to read back by: JUANJO DANIEL 10/13/2023 @ 00:30 by DIANA [facility] LACTATE,BLOODon 10-13-2023 Lactate [Moles/Vol] 4.6 mmol/L Critically high 0.7-2.0 [facility] Comment on above: Result Comment: PLEA SE REPEAT INITIAL CRITICAL IN 3 HOURS IF ED OR INPATIENT SEPSIS PATIENT Result called to read back by: KENNA 10/13/2023 @ 11:39 by BASTING PULLER Performed By: #### C OVID #### Testing performed at [address] [address] Lactate [Moles/Vol] 5.0 mmol/L Critically high 0.7-2.0 [facility] Comment on above: Result Comment: PLEA SE REPEAT INITIAL CRITICAL IN 3 HOURS IF ED OR INPATIENT SEPSIS PATIENT Result called to read back by: JARETT NAIR 10/13/2023 @ 05:30 by HRE Performed By: #### U MAC, UMIC #### Testing performed at [place] [id number] Lactate [Moles/Vol] 4.2 mmol/L Critically high 0.7-2.0 [facility] Comment on above: Result Comment: PLEA SE REPEAT INITIAL CRITICAL IN 3 HOURS IF ED OR INPATIENT SEPSIS PATIENT Result called to read back by: JUANJO DANIEL 10/13/2023 @ 00:30 by DIANA Performed By: #### U MAC, UMIC #### Testing performed at [address] [address] MAGNESIUMon 10-13-2023 Magnesium [Mass/Vol] 2.1 mg/dL [facility] Magnesium [Mass/Vol] 2.1 mg/dL Normal 1.6-2.3 [facility] Comment on above: Performed By: #### U MAC, UMIC #### Testing performed at [address] [address] No Panel Informationon 10-12 Interpretation and review of laboratory results Abnormal [facility] RENAL FUNCTION PANELon 10-12 Albumin [Mass/Vol] 3.6 G/dl 3.5 - 5.0 G/dl [facility] Calcium [Mass/Vol] 8.7 mg/dL [facility] Chloride [Moles/Vol] 104 mmol/L [facility] Comment on above: Please note: Triglyc eride levels of 600mg/dL or higher may positively bias chloride results by approximately 2.1 mmol CO2 [Moles/Vol] 23 mmol/L [facility] Creatinine [Mass/Vol] 0.50 mg/dL Low [facility] GFR COMMENT Average GFR for 30-3 9 years old = 107. [facility] Comment on above: Chronic Kidney disea se, GFR = <60. Kidney failure, GFR = <15. The GFR estimate is not adjusted for extreme body surface area or acute process, nor has it been validated for women or ethnic groups other than and . GFR/1.73 sq M.predicted among blacks MDRD (S/P/Bld) [Vol rate/Area] 186 mL/min/{1.73_m2} ml/min/1.73s q.m [facility] GFR/1.73 sq M.predicted among non-blacks MDRD (S/P/Bld) [Vol rate/Area] 154 mL/min/{1.73_m2} ml/min/1.73s q.m [facility] Glucose post fast [Mass/Vol] 151 mg/dL High [facility] Comment on above: NORMAL <100 mg/dL PREDIABETES 101-126 mg/dL DIABETES 126 mg/dL or higher Phosphate [Mass/Vol] 2.8 mg/dL [facility] Potassium [Moles/Vol] 3.9 mmol/L [facility] Sodium [Moles/Vol] 135 mmol/L Low [facility] Urea nitrogen [Mass/Vol] 15 mg/dL [facility] RENAL PANEL,FASTINGon 2023 ALBUMIN 3.6 G/dl Normal 3.5-5.0 [facility] Comment on above: Performed By: #### U MAC, UMIC #### Testing performed at [address] [address] Calcium [Mass/Vol] 8.7 mg/dL Normal 8.4-10.2 [facility] Comment on above: Performed By: #### U MAC, UMIC #### Testing performed at [address] [address] Chloride [Moles/Vol] 104 mmol/L Normal 98-107 [facility] Comment on above: Result Comment: Klaus baptiste note: Triglyceride levels of 600mg/dL or higher may positively bias chloride results by approximately 2.1 mmol Performed By: #### U MAC, UMIC #### Testing performed at [address] [address] CO2 [Moles/Vol] 23 mmol/L Normal 22-30 [facility] Comment on above: Performed By: #### U MAC, UMIC #### Testing performed at [address] [address] Creatinine [Mass/Vol] 0.50 mg/dL Low 0.70-1.20 [facility] Comment on above: Performed By: #### U MAC, UMIC #### Testing performed at [address] [address] EST. GFR, 186 ml/min/1.73sq.m [facility] Comment on above: Performed By: #### U MAC, UMIC #### Testing performed at [address] [address] EST. GFR,Non 154 ml/min/1.73sq.m [facility] Comment on above: Performed By: #### U MAC, UMIC #### Testing performed at [address] [address] GFR Information Average GFR for 30-3 9 years old = 107. Normal [facility] Comment on above: Result Comment: [employer] Kidney disease, GFR = <60. Kidney failure, GFR = <15. The GFR estimate is not adjusted for extreme body surface area or acute process, nor has it been validated for women or ethnic groups other than and . Performed By: #### U MAC, UMIC #### Testing performed at [address] [address] Glucose [Mass/Vol] 151 mg/dL High 70-100 [facility] Comment on above: Result Comment: NORMAL <100 mg/dL PREDIABETES 101-126 mg/dL DIABETES 126 mg/dL or higher Performed By: #### U MAC, UMIC #### Testing performed at [address] [address] PHOSPHOROUS 2.8 MG/DL Normal 2.5-4.5 [facility] Comment on above: Performed By: #### U MAC, UMIC #### Testing performed at [address] [address] Potassium [Moles/Vol] 3.9 mmol/L Normal 3.5-5.1 [facility] Comment on above: Performed By: #### U MAC, UMIC #### Testing performed at [address] [address] Sodium [Moles/Vol] 135 mmol/L Low 137-145 [facility] Comment on above: Performed By: #### U MAC, UMIC #### Testing performed at [address] [address] Urea nitrogen [Mass/Vol] 15 mg/dL Normal 7-20 [facility] Comment on above: Performed By: #### U MAC, UMIC #### Testing performed at [address] [address] SEDIMENTATION RATE, AUTOMATE Don 10-13-2023 ESR (Bld) [Velocity] 43 mm/h [facility] Interpretation and review of laboratory results Abnormal [facility] XR CHEST PA 1 VIEWon 024 XR CHEST PA 1 VIEW EXAM: XR CHEST PA 1 VIEW HISTORY: RLL PNA COMPARISON: 10/12/2023 TECHNIQUE: A portable AP erect view of the chest was obtained at 0620 hours. FINDINGS: The heart is borderline enlarged. Patient is rotated to the right. I am not specifically seeing any mediastinal or hilar pathology. Both hemidiaphragms are obscured by airspace consolidation and potential pleural effusion. The mid and upper lung parikh are still relatively clear. IMPRESSION: 1. Pulmonary hypoventilation. 2. Airspace consolidation in both lung bases is seen obscuring the hemidiaphragms. Findings are suggestive of potential bilateral pneumonia. Associated effusion is not excluded. There is not a great deal of change from the exam of one day prior. Normal [facility] XR Chest PA uprighton 2023 IMPRESSION: 1. Pulmonary hypoventilation. 2. Airspace consolidation in both lung bases is seen obscuring the hemidiaphragms. Findings are suggestive of potential bilateral pneumonia. Associated effusion is not excluded. There is not a great deal of change from the exam of one day prior. RADIOLOGY EXAM: XR CHEST PA 1 VIEW HISTORY: RLL PNA COMPARISON: 10/12/2023 TECHNIQUE: A portable AP erect view of the chest was obtained at 0620 hours. FINDINGS: The heart is borderline enlarged. Patient is rotated to the right. I am not specifically seeing any mediastinal or hilar pathology. Both hemidiaphragms are obscured by airspace consolidation and potential pleural effusion. The mid and upper lung parikh are still relatively clear. RADIOLOGY Nissa Newby DO - 10/13/2023 EXAM: XR CHEST PA 1 VIEW HISTORY: RLL PNA COMPARISON: 10/12/2023 TECHNIQUE: A portable AP erect view of the chest was obtained at 0620 hours. FINDINGS: The heart is borderline enlarged. Patient is rotated to the right. I am not specifically seeing any mediastinal or hilar pathology. Both hemidiaphragms are obscured by airspace consolidation and potential pleural effusion. The mid and upper lung parikh are still relatively clear. IMPRESSION IMPRESSION: 1. Pulmonary hypoventilation. 2. Airspace consolidation in both lung bases is seen obscuring the hemidiaphragms. Findings are suggestive of potential bilateral pneumonia. Associated effusion is not excluded. There is not a great deal of change from the exam of one day prior. [facility] Radiology Study observation (narrative) [facility] XR Chest PA uprightOrdered B y: Nissa Newby on 10-13-2023 [facility] B TYPE NATRIURETIC PEPTIDEon 10-12-2023 Natriuretic peptide B (Bld) [Mass/Vol] 68 pg/mL Normal [facility] Comment on above: Performed By: #### E SR, BNP, CREACT ####Testing performed at [place] [id number] B-TYPE NATRIURETIC PEPTIDE ( BRAIN)on 10-12-2023 Natriuretic peptide B (Bld) [Mass/Vol] 68 pg/mL [facility] C REACTIVE PROTEINon 024 CRP [Mass/Vol] 35.0 mg/L High 0 - 10 MG/L [facility] Interpretation and review of laboratory results Abnormal [facility] CRP [Mass/Vol] 35.0 mg/L High 0-10 [facility] Comment on above: Performed By: #### E SR, BNP, CREACT ####Testing performed at [address] [address] CBCon 10-12-2023 ABSOLUTE BAS 0.0 10*3/uL Normal 0.0-0.2 [facility] Comment on above: Performed By: #### R ENF MG, ACBC ####Testing performed at [address] [address] ABSOLUTE EOS 0.0 10*3/uL Normal 0.0-0.7 [facility] Comment on above: Performed By: #### R ENF MG ACBC ####Testing performed at [address] [address] ABSOLUTE NEUTROPHIL COUNT 12.1 10*3/uL High 1.4-6.5 [facility] Comment on above: Performed By: #### R ENF MG, ACBC ####Testing performed at [address] [address] Basophils/100 WBC (Bld) 0.1 % Normal 0.0-2.0 [facility] Comment on above: Performed By: #### R ENF MG ACBC ####Testing performed at [address] [address] DTYPE AUTO DIFF Normal [facility] Comment on above: Performed By: #### R ENF MG, ACBC ####Testing performed at [address] [address] Eosinophils/100 WBC (Bld) 0.0 % Normal 0.0-11.0 [facility] Comment on above: Performed By: #### R ENF MG, ACBC ####Testing performed at [address] [address] Lymphocytes (Bld) [#/Vol] 1.4 10*3/uL Normal 1.2-3.4 [facility] Comment on above: Performed By: #### R ENF MG, ACBC ####Testing performed at [address] [address] Lymphocytes/100 WBC (Bld) 10.2 % Low 20.0-55.0 [facility] Comment on above: Performed By: #### MG KENYATTA ACBC ####Testing performed at [address] [address] Monocytes (Bld) [#/Vol] 0.5 10*3/uL Normal 0.0-0.7 [facility] Comment on above: Performed By: #### Kylee ENFMG, ACBC ####Testing performed at [address] [address] Monocytes/100 WBC (Bld) 3.5 % Normal 0.0-10.0 [facility] Comment on above: Performed By: #### MG KENYATTA ACBC ####Testing performed at [address] [address] Neutrophils/100 WBC (Bld) 86.2 % High 37.0-75.0 [facility] Comment on above: Performed By: #### MG KENYATTA ACBC ####Testing performed at [address] [address] Erythrocyte distribution width (RBC) [Ratio] 14.7 % High 11.5-14.5 [facility] Comment on above: Performed By: #### Kylee ENMG Priscilla, ACBC ####Testing performed at [address] [address] Hematocrit (Bld) [Volume fraction] 35.5 % Low 36.0-48.0 [facility] Comment on above: Performed By: #### Kylee ENFMG, ACBC ####Testing performed at [address] [address] Hemoglobin (Bld) [Mass/Vol] 11.9 g/dL Low 12.0-16.0 [facility] Comment on above: Performed By: #### Kylee ENF MG, ACBC ####Testing performed at [address] [address] MCH (RBC) [Entitic mass] 27.9 pg Normal 26.0-35.0 [facility] Comment on above: Performed By: #### R ENMG Priscilla ACBC ####Testing performed at [place] [id number] MCHC (RBC) [Mass/Vol] 33.5 g/dL Normal 27.0-37.0 [facility] Comment on above: Performed By: #### R MG KENJI ACBC ####Testing performed at [place] [id number] MCV (RBC) [Entitic vol] 83.3 fL Normal 80.0-100.0 [facility] Comment on above: Performed By: #### R MG KENJI ACANTOLIN ####Testing performed at [place] [id number] Platelet mean volume (Bld) [Entitic vol] 7.9 fL Normal 7.4-11.0 [facility] Comment on above: Performed By: #### R MG KENJI ACBC ####Testing performed at [place] [id number] Platelets (Bld) [#/Vol] 292 10*3/uL Normal 130-400 [facility] Comment on above: Performed By: #### R MG KENJI ACBC ####Testing performed at [place] [id number] RBC (Bld) [#/Vol] 4.26 10*6/uL Normal 4.0-5.4 [facility] Comment on above: Performed By: #### R ENFMG ACBC ####Testing performed at [place] [id number] WBC (Bld) [#/Vol] 14.0 10*3/uL High 3.6-11.0 [facility] Comment on above: Performed By: #### R ENFMG ACBC ####Testing performed at [address] [address] CBC, EDIF, PLATELETon 2023 ABSOLUTE BASOPHIL COUNT 0.0 10*3/uL 0.0 - 0.2 10*3/uL [facility] Basophils/100 WBC (Bld) 0.1 % 0.0 - 2.0 % [facility] Differential cell count method Nom (Bld) AUTO DIFF % [facility] Eosinophils (Bld) [#/Vol] 0.0 10*3/uL 0.0 - 0.7 10*3/uL [facility] Eosinophils/100 WBC (Bld) 0.0 % 0.0 - 11.0 % [facility] Erythrocyte distribution width (RBC) [Ratio] 14.7 % High 11.5 - 14.5 % [facility] Hematocrit (Bld) [Volume fraction] 35.5 % Low 36.0 - 48.0 % [facility] Hemoglobin (Bld) [Mass/Vol] 11.9 g/dL Low [facility] Interpretation and review of laboratory results Abnormal [facility] Lymphocytes (Bld) [#/Vol] 1.4 10*3/uL 1.2 - 3.4 10*3/uL [facility] Lymphocytes/100 WBC (Bld) 10.2 % Low 20.0 - 55.0 % [facility] MCH (RBC) [Entitic mass] 27.9 pg 26.0 - 35.0 PG [facility] MCHC (RBC) [Mass/Vol] 33.5 g/dL [facility] MCV (RBC) [Entitic vol] 83.3 fL [facility] Monocytes (Bld) [#/Vol] 0.5 10*3/uL 0.0 - 0.7 10*3/uL [facility] Monocytes/100 WBC (Bld) 3.5 % 0.0 - 10.0 % [facility] Neutrophils (Bld) [#/Vol] 12.1 10*3/uL High 1.4 - 6.5 10*3/uL [facility] Neutrophils/100 WBC (Bld) 86.2 % High 37.0 - 75.0 % [facility] Platelet mean volume (Bld) [Entitic vol] 7.9 fL [facility] Platelets (Bld) [#/Vol] 292 10*3/uL 130 - 400 10*3/uL [facility] RBC (Bld) [#/Vol] 4.26 10*6/uL 4.0 - 5.4 10*6/uL [facility] WBC (Bld) [#/Vol] 14.0 10*3/uL High 3.6 - 11.0 10*3/uL [facility] ESRon 10-12-2023 ESR (Bld) [Velocity] 53 mm/h High 0-15 [facility] Comment on above: Performed By: #### E SR, BNP, CREACT ####Testing performed at [place] [id number] [place] [address] LACTATE, BLOODon 10-12-2023 Interpretation and review of laboratory results Abnormal [facility] [employer] Lactate [Moles/Vol] 3.7 mmol/L Critically high 0.7 - 2.0 mmol/L [facility] Comment on above: PLEASE REPEAT INITIA L CRITICAL IN 3 HOURS IF ED OR INPATIENT SEPSIS PATIENT Result called to read back by: JOANIE DENSON 10/12/2023 @ 21:17 by [facility] Interpretation and review of laboratory results Abnormal [facility] [employer] Lactate [Moles/Vol] 3.6 mmol/L Critically high 0.7 - 2.0 mmol/L [facility] Comment on above: PLEASE REPEAT INITIA L CRITICAL IN 3 HOURS IF ED OR INPATIENT SEPSIS PATIENT Result called to read back by: JOANIE THOMPSON 10/12/2023 @ 18:15 by [facility] Interpretation and review of laboratory results Abnormal [facility] [employer] [facility] Lactate [Moles/Vol] 4.2 mmol/L Critically high 0.7 - 2.0 mmol/L [facility] Comment on above: PLEASE REPEAT INITIA L CRITICAL IN 3 HOURS IF ED OR INPATIENT SEPSIS PATIENT Result called to read back by: VIRGINIA 10/12/2023 @ 14:54 by [facility] Interpretation and review of laboratory results Abnormal [facility] [employer] [facility] Lactate [Moles/Vol] 4.7 mmol/L Critically high 0.7 - 2.0 mmol/L [facility] Comment on above: PLEASE REPEAT INITIA L CRITICAL IN 3 HOURS IF ED OR INPATIENT SEPSIS PATIENT Result called to read back by: VIRGINIA 10/12/2023 @ 13:11 [facility] LACTATE,BLOODon 10-12-2023 Lactate [Moles/Vol] 3.7 mmol/L Critically high 0.7-2.0 [facility] Comment on above: Result Comment: PLEA SE REPEAT INITIAL CRITICAL IN 3 HOURS IF ED OR INPATIENT SEPSIS PATIENT Result called to read back by: JOANIE DENSON 10/12/2023 @ 21:17 by ALL Performed By: #### L ACTAC ####Testing performed at [address] [address] Lactate [Moles/Vol] 3.6 mmol/L Critically high 0.7-2.0 [facility] Comment on above: Result Comment: PLEA SE REPEAT INITIAL CRITICAL IN 3 HOURS IF ED OR INPATIENT SEPSIS PATIENT Result called to read back by: JOANIE THOMPSON 10/12/2023 @ 18:15 by DIANA Performed By: #### U MAC, UMIC #### Testing performed at [address] [address] Lactate [Moles/Vol] 4.2 mmol/L Critically high 0.7-2.0 [facility] Comment on above: Result Comment: PLEA SE REPEAT INITIAL CRITICAL IN 3 HOURS IF ED OR INPATIENT SEPSIS PATIENT Result called to read back by: VIRGINIA 10/12/2023 @ 14:54 by WB Performed By: #### U MAC, UMIC #### Testing performed at [address] [address] Lactate [Moles/Vol] 4.7 mmol/L Critically high 0.7-2.0 [facility] Comment on above: Result Comment: PLEA SE REPEAT INITIAL CRITICAL IN 3 HOURS IF ED OR INPATIENT SEPSIS PATIENT Result called to read back by: VIRGINIA 10/12/2023 @ 13:11 by WB Performed By: #### U MAC, UMIC #### Testing performed at [address] [address] MAGNESIUMon 10-12-2023 Magnesium [Mass/Vol] 2.0 mg/dL [facility] Magnesium [Mass/Vol] 2.0 mg/dL Normal 1.6-2.3 [facility] Comment on above: Performed By: #### R ENF, MG, ACBC ####Testing performed at [address] [place] [address] No Panel Informationon 10-11 [facility] PROCALCITONINon 10-12-2023 PROCALCITONIN 0.06 ng/mL 0.00 - 0.25 ng/mL [facility] Comment on above: PCT Interpretation Less than 0.10 ng/mL, antibiotic therapy strongly discouraged. 0.10-0.25 ng/mL, antibiotic therapy discouraged. 0.25-0.50 ng/mL, antibiotic therapy encouraged. Greater than 0.50 ng/mL, antibiotic therapy strongly encouraged. [facility] PROCALCITONIN 0.06 ng/mL Normal 0.00-0.25 [facility] Comment on above: Result Comment: PCT Interpretation Less than 0.10 ng/mL, antibiotic therapy strongly discouraged. 0.10-0.25 ng/mL, antibiotic therapy discouraged. 0.25-0.50 ng/mL, antibiotic therapy encouraged. Greater than 0.50 ng/mL, antibiotic therapy strongly encouraged. Performed By: #### U MAC, [facility] #### Testing performed at [facility] [address] [place] [address] Portable XR Chest Viewson IMPRESSION: Bibasilar consolidation with bilateral pleural effusions. RADIOLOGY EXAM: XR CHEST 1 VIE W PORTABLE HISTORY: chest pain COMPARISON: CT chest 10/11/2023. TECHNIQUE: Single view chest. FINDINGS: There is moderate bibasilar consolidation and moderate bilateral pleural effusions. No pneumothorax. Heart size is borderline. Bones are unremarkable. RADIOLOGY Willie Stapleton M D - 10/12/2023 EXAM: XR CHEST 1 VIEW PORTABLE HISTORY: chest pain COMPARISON: CT chest 10/11/2023. TECHNIQUE: Single view chest. FINDINGS: There is moderate bibasilar consolidation and moderate bilateral pleural effusions. No pneumothorax. Heart size is borderline. Bones are unremarkable. IMPRESSION IMPRESSION: Bibasilar consolidation with bilateral pleural effusions. [facility] Radiology Study observation (narrative) [facility] Portable XR Chest ViewsOrder ed By: Willie Stapleton on 10-12-2023 [facility] Work Phone: RENAL FUNCTION PANELon 10-11 Albumin [Mass/Vol] 3.7 G/dl 3.5 - 5.0 G/dl [facility] Calcium [Mass/Vol] 8.5 mg/dL [facility] Chloride [Moles/Vol] 109 mmol/L High [facility] Comment on above: Please note: Triglyc eride levels of 600mg/dL or higher may positively bias chloride results by approximately 2.1 mmol CO2 [Moles/Vol] 19 mmol/L Low [facility] Creatinine [Mass/Vol] 0.50 mg/dL Low [facility] [facility] GFR COMMENT Average GFR for 30-3 9 years old = 107. [facility] Comment on above: Chronic Kidney disea se, GFR = <60. Kidney failure, GFR = <15. The GFR estimate is not adjusted for extreme body surface area or acute process, nor has it been validated for women or ethnic groups other than and . GFR/1.73 sq M.predicted among blacks MDRD (S/P/Bld) [Vol rate/Area] 186 mL/min/{1.73_m2} ml/min/1.73s q.m [facility] GFR/1.73 sq M.predicted among non-blacks MDRD (S/P/Bld) [Vol rate/Area] 154 mL/min/{1.73_m2} ml/min/1.73s q.m [facility] Glucose post fast [Mass/Vol] 209 mg/dL High [facility] Comment on above: NORMAL <100 mg/dL PREDIABETES 101-126 mg/dL DIABETES 126 mg/dL or higher Interpretation and review of laboratory results Abnormal [facility] Phosphate [Mass/Vol] 2.3 mg/dL Low [facility] Potassium [Moles/Vol] 3.5 mmol/L [facility] Sodium [Moles/Vol] 137 mmol/L [facility] Urea nitrogen [Mass/Vol] 13 mg/dL [facility] RENAL PANEL,FASTINGon 2023 ALBUMIN 3.7 G/dl Normal 3.5-5.0 [facility] Comment on above: Performed By: #### R ENF, MG, ACBC ####Testing performed at [id number] [place] [address] Calcium [Mass/Vol] 8.5 mg/dL Normal 8.4-10.2 [facility] Comment on above: Performed By: #### R MG KENJI ACBC ####[place] [address] Chloride [Moles/Vol] 109 mmol/L High 98-107 [facility] Comment on above: Result Comment: Klaus baptiste note: Triglyceride levels of 600mg/dL or higher may positively bias chloride results by approximately 2.1 mmol Performed By: #### R MG PHILLIP ACBC ####[place] [address] CO2 [Moles/Vol] 19 mmol/L Low 22-30 [facility] Comment on above: Performed By: #### R MG PHILLIP ACBC ####[place] [address] Creatinine [Mass/Vol] 0.50 mg/dL Low 0.70-1.20 [facility] Comment on above: Performed By: #### R MG PHILLIP ACBC ####[place] [address] EST. GFR, 186 ml/min/1.73sq.m [facility] Comment on above: Performed By: #### MG YOU ACBC ####[place] [address] EST. GFR,Non 154 ml/min/1.73sq.m [facility] Comment on above: Performed By: #### R MG PHILLIP ACBC ####[place] [address] GFR Information Average GFR for 30-3 9 years old = 107. Normal [facility] Comment on above: Result Comment: [employer] bentley Kidney disease, GFR = <60. Kidney failure, GFR = <15. The GFR estimate is not adjusted for extreme body surface area or acute process, nor has it been validated for women or ethnic groups other than and . Performed By: #### R ENFMG ACANTOLIN ####[place] [address] Glucose [Mass/Vol] 209 mg/dL High 70-100 [facility] Comment on above: Result Comment: NORMAL <100 mg/dL PREDIABETES 101-126 mg/dL DIABETES 126 mg/dL or higher Performed By: #### R MG PHILLIP ACBC ####Testing performed at [address] [address] PHOSPHOROUS 2.3 MG/DL Low 2.5-4.5 [facility] Comment on above: Performed By: #### R MG KENJI, COLTON ####Testing performed at [address] [address] Potassium [Moles/Vol] 3.5 mmol/L Normal 3.5-5.1 [facility] Comment on above: Performed By: #### MG KENYATTA, COLTON ####Testing performed at [address] [address] Sodium [Moles/Vol] 137 mmol/L Normal 137-145 [facility] Comment on above: Performed By: #### MG KENYATTA, COLTON ####Testing performed at [address] [address] Urea nitrogen [Mass/Vol] 13 mg/dL Normal 7-20 [facility] Comment on above: Performed By: #### R MG KENJI, COLTON ####Testing performed at [address] [address] SEDIMENTATION RATE, AUTOMATE Don 10-12-2023 ESR (Bld) [Velocity] 53 mm/h [facility] [employer] [facility] Interpretation and review of laboratory results Abnormal [facility] TROPONIN I, HIGH SENSITIVITY on 10-12-2023 TROPONIN I, HIGH SENSITIVITY 3 pg/mL 0 - 12 pg/mL [facility] Comment on above: Indeterminant: >12 to 100 pg/mL female >20 to 100 pg/mL male Indicative of myocardial injury. Serial sampling is recommended, a change of greater than or equal to 20 pg/mL is indicative of acute coronary syndrome. [facility] TROPONIN I, HIGH SENSITIVITY 3 pg/mL Normal 0-12 [facility] Comment on above: Result Comment: Indeterminant: >12 to 100 pg/mL female >20 to 100 pg/mL male Indicative of myocardial injury. Serial sampling is recommended, a change of greater than or equal to 20 pg/mL is indicative of acute coronary syndrome. Performed By: #### T AUGUST ####Testing performed at [address] [address] TROPONIN I, HIGH SENSITIVITY 3 pg/mL 0 - 12 pg/mL [facility] Comment on above: Indeterminant: >12 to 100 pg/mL female >20 to 100 pg/mL male Indicative of myocardial injury. Serial sampling is recommended, a change of greater than or equal to 20 pg/mL is indicative of acute coronary syndrome. [facility] TROPONIN I, HIGH SENSITIVITY 3 pg/mL Normal 0-12 [facility] Comment on above: Result Comment: Indeterminant: >12 to 100 pg/mL female >20 to 100 pg/mL male Indicative of myocardial injury. Serial sampling is recommended, a change of greater than or equal to 20 pg/mL is indicative of acute coronary syndrome. Performed By: #### U ERIC, VERNON #### Testing performed at [address] [address] URINALYSIS, MACROon 10-12-19 24 Bilirubin Ql (U) Negative NEGATIVE [facility] Clarity (U) CLEAR CLEAR [facility] Color (U) YELLOW YELLOW [facility] Glucose Test strip (U) [Mass/Vol] 500 mg/dl Abnormal NEGATIVE [facility] Hemoglobin Ql (U) SMALL Abnormal NEGATIVE [facility] Interpretation and review of laboratory results Abnormal [facility] Ketones (U) [Mass/Vol] Negative NEGAT ZARIA mg/dl [facility] Leukocyte esterase Test strip Ql (U) Negative NEGATIVE [facility] Nitrite Ql (U) Negative NEGATIVE [facility] pH (U) 6.5 [pH] 5.0 - 7.0 [facility] Protein Ql (U) 100 mg/dl Abnormal NEGATIVE [facility] Specific gravity (U) [Rel density] 1.025 1.010 - 1.025 [facility] Urobilinogen (U) [Mass/Vol] 0.2 mg/dL [facility] URINE MACROSCOPICon 10-12-19 24 Bilirubin Ql (U) Negative Normal NEGATIVE [facility] Comment on above: Performed By: #### U ERIC, VERNON #### Testing performed at [address] [place] [address] Clarity (U) CLEAR Normal CLEAR [facility] Comment on above: Performed By: #### U MAC, UMIC #### Testing performed at [address] [place] [address] Color (U) YELLOW Normal YELLOW [facility] Comment on above: Performed By: #### U MAC, UMIC #### Testing performed at [address] [address] Glucose Ql (U) 500 mg/dl Abnormal NEGATIVE [facility] Comment on above: Performed By: #### U MAC, UMIC #### Testing performed at [address] [address] pH (U) 6.5 [pH] Normal 5.0-7.0 [facility] Comment on above: Performed By: #### U MAC, UMIC #### Testing performed at [address] [address] Protein (U) [Mass/Vol] 100 mg/dL Abnormal NEGATIVE [facility] Comment on above: Performed By: #### U MAC, UMIC #### Testing performed at [address] [place] [address] URINE HEMOGLOBIN SMALL Abnormal NEGATIVE [facility] Comment on above: Performed By: #### U MAC, UMIC #### Testing performed at [address] [place] [address] URINE KETONE Negative Normal NEGATIVE [facility] Comment on above: Performed By: #### U MAC, UMIC #### Testing performed at [address] [place] [address] URINE LEUKOTEST Negative Normal NEGATIVE [facility] Comment on above: Performed By: #### U MAC, UMIC #### Testing performed at [address] [address] URINE NITRATES Negative Normal NEGATIVE [facility] Comment on above: Performed By: #### U MAC, UMIC #### Testing performed at [address] [place] [address] URINE SPEC GRAVITY 1.025 Normal 1.010-1.025 [facility] Comment on above: Performed By: #### U MAC, UMIC #### Testing performed at [address] [address] Urobilinogen Qn (U) 0.2 {Dell'U}/dL Normal 0.2-1.0 [facility] Comment on above: Performed By: #### U MAC, UMIC #### Testing performed at [address] [address] URINE MICROSCOPICon 10-12-19 24 Bacteria LM.HPF (Urine sed) [#/Area] Negative NEGATIVE [facility] Casts LM.LPF (Urine sed) [#/Area] NONE NONE /LPF [facility] Crystals LM Nom (Urine sed) NONE NONE [facility] Epithelial cells LM Ql (Urine sed) 1 TO 5 /HPF [facility] Mucus Ql (Urine sed) Negative NEGATIVE [facility] RBC LM.HPF (Urine sed) [#/Area] Negative NEGATIVE /HPF [facility] Urine sediment comments LM Dillan (Urine sed) CULTURE CRITERIA NOT MET, NO CULTURE PERFORMED. [facility] WBC LM.HPF (Urine sed) [#/Area] Negative NEGATIVE /HPF [facility] Bacteria LM.HPF (Urine sed) [#/Area] Negative Normal NEGATIVE [facility] Comment on above: Performed By: #### U MAC, UMIC #### Testing performed at [address] [address] CASTS NONE Normal [facility] Comment on above: Performed By: #### U MAC, UMIC #### Testing performed at [address] [address] CRYSTAL NONE Normal [facility] Comment on above: Performed By: #### U MAC, UMIC #### Testing performed at [address] [address] Epithelial cells LM Ql (Urine sed) 1 TO 5 Normal [facility] Comment on above: Performed By: #### U MAC, UMIC #### Testing performed at [address] [address] Mucus Ql (Urine sed) Negative Normal NEGATIVE [facility] Comment on above: Performed By: #### U MAC, UMIC #### Testing performed at [address] [address] URINE COMMENT CULTURE CRITERIA NOT MET, NO CULTURE PERFORMED. Normal [facility] Comment on above: Performed By: #### U MAC, UMIC #### Testing performed at [address] [address] URINE RBC'S Negative Normal NEGATIVE [facility] Comment on above: Performed By: #### U MAC, UMIC #### Testing performed at [address] [address] URINE WBC'S Negative Normal NEGATIVE [facility] Comment on above: Performed By: #### U MAC, UMIC #### Testing performed at [address] [address] XR CHEST 1 VIEW PORTABLEon 0 10-12-2023 XR CHEST 1 VIEW PORTABLE EXAM: XR CHEST 1 VIEW PORTABLE HISTORY: chest pain COMPARISON: CT chest 10/11/2023. TECHNIQUE: Single view chest. FINDINGS: There is moderate bibasilar consolidation and moderate bilateral pleural effusions. No pneumothorax. Heart size is borderline. Bones are unremarkable. IMPRESSION: Bibasilar consolidation with bilateral pleural effusions. Normal [facility] C REACTIVE PROTEINon 024 CRP [Mass/Vol] 158.6 mg/L High 0 - 10 MG/L [facility] Interpretation and review of laboratory results Abnormal [facility] CRP [Mass/Vol] 158.6 mg/L High 0-10 [facility] Comment on above: Performed By: #### C REACT, ESR ####Testing performed at [address] [address] CBCon 10-11-2023 ABSOLUTE BAS 0.0 10*3/uL Normal 0.0-0.2 [facility] Comment on above: Performed By: #### U MAC, UMIC #### Testing performed at [address] [address] ABSOLUTE EOS 0.0 10*3/uL Normal 0.0-0.7 [facility] Comment on above: Performed By: #### U MAC, UMIC #### Testing performed at [address] [address] ABSOLUTE NEUTROPHIL COUNT 8.0 10*3/uL High 1.4-6.5 [facility] Comment on above: Performed By: #### U MAC, UMIC #### Testing performed at [address] [place] [address] Basophils/100 WBC (Bld) 0.2 % Normal 0.0-2.0 [facility] Comment on above: Performed By: #### U MAC, UMIC #### Testing performed at [address] [place] [address] DTYPE AUTO DIFF Normal [facility] Comment on above: Performed By: #### U MAC, UMIC #### Testing performed at [address] [place] [address] Eosinophils/100 WBC (Bld) 0.0 % Normal 0.0-11.0 [facility] Comment on above: Performed By: #### U MAC, UMIC #### Testing performed at [address] [place] [address] Lymphocytes (Bld) [#/Vol] 0.9 10*3/uL Low 1.2-3.4 [facility] Comment on above: Performed By: #### U MAC, UMIC #### Testing performed at [address] [place] [address] Lymphocytes/100 WBC (Bld) 9.9 % Low 20.0-55.0 [facility] Comment on above: Performed By: #### U MAC, UMIC #### Testing performed at [address] [place] [address] Monocytes (Bld) [#/Vol] 0.2 10*3/uL Normal 0.0-0.7 [facility] Comment on above: Performed By: #### U MAC, UMIC #### Testing performed at [address] [place] [address] Monocytes/100 WBC (Bld) 2.1 % Normal 0.0-10.0 [facility] Comment on above: Performed By: #### U MAC, UMIC #### Testing performed at [address] [place] [address] Neutrophils/100 WBC (Bld) 87.8 % High 37.0-75.0 [facility] Comment on above: Performed By: #### U MAC, UMIC #### Testing performed at [address] [place] [address] Erythrocyte distribution width (RBC) [Ratio] 14.7 % High 11.5-14.5 [facility] Comment on above: Performed By: #### U MAC, UMIC #### Testing performed at [address] [place] [address] Hematocrit (Bld) [Volume fraction] 39.3 % Normal 36.0-48.0 [facility] Comment on above: Performed By: #### U MAC, UMIC #### Testing performed at [address] [address] Hemoglobin (Bld) [Mass/Vol] 13.0 g/dL Normal 12.0-16.0 [facility] Comment on above: Performed By: #### U MAC, UMIC #### Testing performed at [address] [address] MCH (RBC) [Entitic mass] 28.1 pg Normal 26.0-35.0 [facility] Comment on above: Performed By: #### U MAC, UMIC #### Testing performed at [address] [place] [address] MCHC (RBC) [Mass/Vol] 33.1 g/dL Normal 27.0-37.0 [facility] Comment on above: Performed By: #### U MAC, UMIC #### Testing performed at [address] [address] MCV (RBC) [Entitic vol] 84.7 fL Normal 80.0-100.0 [facility] Comment on above: Performed By: #### U MAC, UMIC #### Testing performed at [address] [place] [address] Platelet mean volume (Bld) [Entitic vol] 7.7 fL Normal 7.4-11.0 [facility] Comment on above: Performed By: #### U MAC, UMIC #### Testing performed at [address] [place] [address] Platelets (Bld) [#/Vol] 232 10*3/uL Normal 130-400 [facility] Comment on above: Performed By: #### U MAC, UMIC #### Testing performed at [address] [address] RBC (Bld) [#/Vol] 4.63 10*6/uL Normal 4.0-5.4 [facility] Comment on above: Performed By: #### U MAC, UMIC #### Testing performed at [address] [address] WBC (Bld) [#/Vol] 9.1 10*3/uL Normal 3.6-11.0 [facility] Comment on above: Performed By: #### U MAC, [facility] #### Testing performed at [address] [address] CBC, EDIF, PLATELETon 2023 ABSOLUTE BASOPHIL COUNT 0.0 10*3/uL 0.0 - 0.2 10*3/uL [facility] Basophils/100 WBC (Bld) 0.2 % 0.0 - 2.0 % [facility] Differential cell count method Nom (Bld) AUTO DIFF % [facility] Eosinophils (Bld) [#/Vol] 0.0 10*3/uL 0.0 - 0.7 10*3/uL [facility] Eosinophils/100 WBC (Bld) 0.0 % 0.0 - 11.0 % [facility] Erythrocyte distribution width (RBC) [Ratio] 14.7 % High 11.5 - 14.5 % [facility] Hematocrit (Bld) [Volume fraction] 39.3 % 36.0 - 48.0 % [facility] Hemoglobin (Bld) [Mass/Vol] 13.0 g/dL [facility] Interpretation and review of laboratory results Abnormal [facility] Lymphocytes (Bld) [#/Vol] 0.9 10*3/uL Low 1.2 - 3.4 10*3/uL [facility] Lymphocytes/100 WBC (Bld) 9.9 % Low 20.0 - 55.0 % [facility] MCH (RBC) [Entitic mass] 28.1 pg 26.0 - 35.0 PG [facility] MCHC (RBC) [Mass/Vol] 33.1 g/dL [facility] MCV (RBC) [Entitic vol] 84.7 fL [facility] Monocytes (Bld) [#/Vol] 0.2 10*3/uL 0.0 - 0.7 10*3/uL [facility] Monocytes/100 WBC (Bld) 2.1 % 0.0 - 10.0 % [facility] Neutrophils (Bld) [#/Vol] 8.0 10*3/uL High 1.4 - 6.5 10*3/uL [facility] Neutrophils/100 WBC (Bld) 87.8 % High 37.0 - 75.0 % [facility] Platelet mean volume (Bld) [Entitic vol] 7.7 fL [facility] Platelets (Bld) [#/Vol] 232 10*3/uL 130 - 400 10*3/uL [facility] RBC (Bld) [#/Vol] 4.63 10*6/uL 4.0 - 5.4 10*6/uL [facility] WBC (Bld) [#/Vol] 9.1 10*3/uL 3.6 - 11.0 10*3/uL [facility] CHEM 7 FASTINGon 10-11-2023 Chloride [Moles/Vol] 107 mmol/L Normal 98-107 [facility] Comment on above: Result Comment: Klaus baptiste note: Triglyceride levels of 600mg/dL or higher may positively bias chloride results by approximately 2.1 mmol Performed By: #### U MAC, UMIC #### Testing performed at [address] [address] CO2 [Moles/Vol] 21 mmol/L Low 22-30 [facility] Comment on above: Performed By: #### U MAC, UMIC #### Testing performed at [address] [address] Creatinine [Mass/Vol] 0.50 mg/dL Low 0.70-1.20 [facility] Comment on above: Performed By: #### U MAC, UMIC #### Testing performed at [address] [address] EST. GFR, 186 ml/min/1.73sq.m Normal [facility] Comment on above: Performed By: #### U MAC, UMIC #### Testing performed at [address] [address] EST. GFR,Non 154 ml/min/1.73sq.m Normal [facility] Comment on above: Performed By: #### U MAC, UMIC #### Testing performed at [address] [address] GFR Information Average GFR for 30-3 9 years old = 107. Normal [facility] Comment on above: Result Comment: [employer] bentley Kidney disease, GFR = <60. Kidney failure, GFR = <15. The GFR estimate is not adjusted for extreme body surface area or acute process, nor has it been validated for women or ethnic groups other than and . Performed By: #### U ERIC, UMIC #### Testing performed at [address] [address] Glucose [Mass/Vol] 239 mg/dL High 70-100 [facility] Comment on above: Result Comment: NORMAL <100 mg/dL PREDIABETES 101-126 mg/dL DIABETES 126 mg/dL or higher Performed By: #### U MAC, UMIC #### Testing performed at [address] [address] Potassium [Moles/Vol] 3.3 mmol/L Low 3.5-5.1 [facility] Comment on above: Performed By: #### U MAC, UMIC #### Testing performed at [address] [address] Sodium [Moles/Vol] 135 mmol/L Low 137-145 [facility] Comment on above: Performed By: #### U MAC, UMIC #### Testing performed at [address] [address] Urea nitrogen [Mass/Vol] 7 mg/dL Normal 7-20 [facility] Comment on above: Performed By: #### U MAC, UMIC #### Testing performed at [address] [address] CHEM 7 (LYTES,BUN,CREA,GLUC) on 10-11-2023 Chloride [Moles/Vol] 107 mmol/L [facility] Comment on above: Please note: Triglyc eride levels of 600mg/dL or higher may positively bias chloride results by approximately 2.1 mmol CO2 [Moles/Vol] 21 mmol/L Low [facility] Creatinine [Mass/Vol] 0.50 mg/dL Low [facility] GFR COMMENT Average GFR for 30-3 9 years old = 107. [facility] Comment on above: Chronic Kidney disea se, GFR = <60. Kidney failure, GFR = <15. The GFR estimate is not adjusted for extreme body surface area or acute process, nor has it been validated for women or ethnic groups other than and . GFR/1.73 sq M.predicted among blacks MDRD (S/P/Bld) [Vol rate/Area] 186 mL/min/{1.73_m2} ml/min/1.73s q.m [facility] GFR/1.73 sq M.predicted among non-blacks MDRD (S/P/Bld) [Vol rate/Area] 154 mL/min/{1.73_m2} ml/min/1.73s q.m [facility] Glucose post fast [Mass/Vol] 239 mg/dL High [facility] Comment on above: NORMAL <100 mg/dL PREDIABETES 101-126 mg/dL DIABETES 126 mg/dL or higher Interpretation and review of laboratory results Abnormal [facility] Potassium [Moles/Vol] 3.3 mmol/L Low [facility] Sodium [Moles/Vol] 135 mmol/L Low [facility] Urea nitrogen [Mass/Vol] 7 mg/dL [facility] CT CHEST WITHOUT CONTRASTon 10-11-2023 CT CHEST WITHOUT CONTRAST EXAMINATION: CT CHEST WITHOUT CONTRAST, , 10/11/2023 3:22 PM EDT INDICATION: PNA HISTORY: Ordering Provider Reason for Exam: Technologist Note: Additional: COMPARISON: XR CHEST PA AND LATERAL 2 VIEWS Study Date: 10/10/2023 TECHNIQUE: CT scan of the chest was performed without IV contrast. CT dose reduction technique was used, including Automated Exposure Control. FINDINGS: Mild cardiomegaly is seen. There is no evidence for pericardial effusion. No significant coronary arterial calcification is seen. The thoracic aorta is normal in course and caliber. There is no evidence for thoracic aortic aneurysm. No significant enlarged hilar, mediastinal or axillary adenopathy seen. Tiny right pleural effusion is seen. There is no evidence for pneumothorax. Patchy infiltrates are seen in the right middle and lower lobes, as well as in the left lung base and lingula. The visualized chest wall appears unremarkable. No acute abnormality is in the visualized upper abdomen. No destructive osseous lesion is seen. IMPRESSION: Bilateral multifocal infiltrates. Tiny right pleural effusion. Mild cardiomegaly. Normal [facility] CT Chest WO contraston 10-10 IMPRESSION: Bilateral multifocal infiltrates. Tiny right pleural effusion. Mild cardiomegaly. RADIOLOGY EXAMINATION: CT CHES T WITHOUT CONTRAST, , 10/11/2023 3:22 PM EDT INDICATION: PNA HISTORY: Ordering Provider Reason for Exam: Technologist Note: Additional: COMPARISON: XR CHEST PA AND LATERAL 2 VIEWS Study Date: 10/10/2023 TECHNIQUE: CT scan of the chest was performed without IV contrast. CT dose reduction technique was used, including Automated Exposure Control. FINDINGS: Mild cardiomegaly is seen. There is no evidence for pericardial effusion. No significant coronary arterial calcification is seen. The thoracic aorta is normal in course and caliber. There is no evidence for thoracic aortic aneurysm. No significant enlarged hilar, mediastinal or axillary adenopathy seen. Tiny right pleural effusion is seen. There is no evidence for pneumothorax. Patchy infiltrates are seen in the right middle and lower lobes, as well as in the left lung base and lingula. The visualized chest wall appears unremarkable. No acute abnormality is in the visualized upper abdomen. No destructive osseous lesion is seen. RADIOLOGY Holly Stern MD - 10/11/2023 EXAMINATION: CT CHEST WITHOUT CONTRAST, , 10/11/2023 3:22 PM EDT INDICATION: PNA HISTORY: Ordering Provider Reason for Exam: Technologist Note: Additional: COMPARISON: XR CHEST PA AND LATERAL 2 VIEWS Study Date: 10/10/2023 TECHNIQUE: CT scan of the chest was performed without IV contrast. CT dose reduction technique was used, including Automated Exposure Control. FINDINGS: Mild cardiomegaly is seen. There is no evidence for pericardial effusion. No significant coronary arterial calcification is seen. The thoracic aorta is normal in course and caliber. There is no evidence for thoracic aortic aneurysm. No significant enlarged hilar, mediastinal or axillary adenopathy seen. Tiny right pleural effusion is seen. There is no evidence for pneumothorax. Patchy infiltrates are seen in the right middle and lower lobes, as well as in the left lung base and lingula. The visualized chest wall appears unremarkable. No acute abnormality is in the visualized upper abdomen. No destructive osseous lesion is seen. IMPRESSION IMPRESSION: Bilateral multifocal infiltrates. Tiny right pleural effusion. Mild cardiomegaly. [facility] Radiology Study observation (narrative) [facility] [employer] CT Chest WO contrastOrdered By: Holly Stern on 10-11-2023 [facility] Work Phone: CT PE STUDYon 10-11-2023 CT PE STUDY EXAMINATION: CT PE STUDY, 10/11/2023 3:59 PM CDT HISTORY: elevated d-dimer . Dyspnea. Clinical suspicion of pulmonary embolus COMPARISON: CT chest noncontrast 10/11/2023 3:21 PM. Chest x-ray PA, lateral 10/10/2023 and earlier. TECHNIQUE: CT angiography of the chest was performed with IV contrast. MIP (maximum intensity projection) images or 3D post processing was performed. CT dose reduction technique was used, including Automated Exposure Control. Contrast: 75 mL Omnipaque 350. FINDINGS: Study limited by motion artifact and artifact related to patient size and body habitus. Pulmonary arteries: Fair opacification of the proximal central vessels and poor opacification of the distal smaller vessels. No definite pulmonary artery thrombus or embolus in the larger vessels although cannot exclude abnormality of the smaller distal vessels.. Pulmonary outflow tract dilated relative the aorta suggesting increased pulmonary artery pressure. LUNGS: Lung parikh are diffusely abnormal. There is groundglass density in the upper lobes and superior portion lower lobes upper and mid chest new from previous. Consolidation with air bronchogram noted right lung base unchanged and middle lobe increased in the right lower lobe consistent with inflammatory process/pneumonia. Consolidation left lung base less prominent unchanged and lingula slightly increased in the lower lobe posterior inferiorly. Pleura: Small right pleural effusion increased slightly. No definite left effusion. No pneumothorax. Mediastinum:, Subcarinal lymph nodes likely reactive. Cardiac/vascular: Cardiac silhouette is prominent. No evidence of right ventricular strain. Normal-size aorta. Prominent pulmonary outflow tract as noted above. No pericardial effusion. No new or acute appearing abnormality upper abdomen. No suspicious bone lesion. IMPRESSION: 1. No definite pulmonary artery embolus or thrombus although assessment of the distal vessels is limited as noted above. No evidence of right ventricular strain. 2. Worsening lung parikh with developing groundglass density in the upper and mid lungs, worsening consolidation lung bases right greater than left. [place] to be inflammatory. 3. Small right pleural effusion slightly increased. Normal [facility] CT Pulmonary arteries for pu lmonary emboluson 10-11-2023 IMPRESSION: 1. No definite pulmonary artery embolus or thrombus although assessment of the distal vessels is limited as noted above. No evidence of right ventricular strain. 2. Worsening lung parikh with developing groundglass density in the upper and mid lungs, worsening consolidation lung bases right greater than left. [place] to be inflammatory. 3. Small right pleural effusion slightly increased. RADIOLOGY EXAMINATION: CT PE STUDY, 10/11/2023 3:59 PM CDT HISTORY: elevated d-dimer . Dyspnea. Clinical suspicion of pulmonary embolus COMPARISON: CT chest noncontrast 10/11/2023 3:21 PM. Chest x-ray PA, lateral 10/10/2023 and earlier. TECHNIQUE: CT angiography of the chest was performed with IV contrast. MIP (maximum intensity projection) images or 3D post processing was performed. CT dose reduction technique was used, including Automated Exposure Control. Contrast: 75 mL Omnipaque 350. FINDINGS: Study limited by motion artifact and artifact related to patient size and body habitus. Pulmonary arteries: Fair opacification of the proximal central vessels and poor opacification of the distal smaller vessels. No definite pulmonary artery thrombus or embolus in the larger vessels although cannot exclude abnormality of the smaller distal vessels.. Pulmonary outflow tract dilated relative the aorta suggesting increased pulmonary artery pressure. LUNGS: Lung parikh are diffusely abnormal. There is groundglass density in the upper lobes and superior portion lower lobes upper and mid chest new from previous. Consolidation with air bronchogram noted right lung base unchanged and middle lobe increased in the right lower lobe consistent with inflammatory process/pneumonia. Consolidation left lung base less prominent unchanged and lingula slightly increased in the lower lobe posterior inferiorly. Pleura: Small right pleural effusion increased slightly. No definite left effusion. No pneumothorax. Mediastinum:, Subcarinal lymph nodes likely reactive. Cardiac/vascular: Cardiac silhouette is prominent. No evidence of right ventricular strain. Normal-size aorta. Prominent pulmonary outflow tract as noted above. No pericardial effusion. No new or acute appearing abnormality upper abdomen. No suspicious bone lesion. RADIOLOGY Denny Fraser MD - 10/11/2023 EXAMINATION: CT PE STUDY, 10/11/2023 3:59 PM CDT HISTORY: elevated d-dimer . Dyspnea. Clinical suspicion of pulmonary embolus COMPARISON: CT chest noncontrast 10/11/2023 3:21 PM. Chest x-ray PA, lateral 10/10/2023 and earlier. TECHNIQUE: CT angiography of the chest was performed with IV contrast. MIP (maximum intensity projection) images or 3D post processing was performed. CT dose reduction technique was used, including Automated Exposure Control. Contrast: 75 mL Omnipaque 350. FINDINGS: Study limited by motion artifact and artifact related to patient size and body habitus. Pulmonary arteries: Fair opacification of the proximal central vessels and poor opacification of the distal smaller vessels. No definite pulmonary artery thrombus or embolus in the larger vessels although cannot exclude abnormality of the smaller distal vessels.. Pulmonary outflow tract dilated relative the aorta suggesting increased pulmonary artery pressure. LUNGS: Lung parikh are diffusely abnormal. There is groundglass density in the upper lobes and superior portion lower lobes upper and mid chest new from previous. Consolidation with air bronchogram noted right lung base unchanged and middle lobe increased in the right lower lobe consistent with inflammatory process/pneumonia. Consolidation left lung base less prominent unchanged and lingula slightly increased in the lower lobe posterior inferiorly. Pleura: Small right pleural effusion increased slightly. No definite left effusion. No pneumothorax. Mediastinum:, Subcarinal lymph nodes likely reactive. Cardiac/vascular: Cardiac silhouette is prominent. No evidence of right ventricular strain. Normal-size aorta. Prominent pulmonary outflow tract as noted above. No pericardial effusion. No new or acute appearing abnormality upper abdomen. No suspicious bone lesion. IMPRESSION IMPRESSION: 1. No definite pulmonary artery embolus or thrombus although assessment of the distal vessels is limited as noted above. No evidence of right ventricular strain. 2. Worsening lung parikh with developing groundglass density in the upper and mid lungs, worsening consolidation lung bases right greater than left. [place] to be inflammatory. 3. Small right pleural effusion slightly increased. [facility] Radiology Study observation (narrative) [facility] CT Pulmonary arteries for pu lmonary embolusOrdered By: Denny Fraser on 10-11-2023 [facility] Work Phone: D DIMERon 10-11-2023 D DIMER 1.05 ??g/ml Critically high <0.50 [facility] Comment on above: Result Comment: If r esult is greater than the cutoff value of 0.50 ??g/ml then the potential for PE or DVT exists. Other conditions exist which may cause a falsely elevated level. Please correlate clinically, including radiological findings and other clinical parameters. Result called to and read back by: EBONY PARRISH 10/11/2023 @ 16:24 by [facility] Performed By: #### D DIMER #### Testing performed at [address] [address] D-DIMER,QUANTITATIVEon 10-10 Fibrin D-dimer FEU (PPP) [Mass/Vol] 1.05 Critically high [facility] Comment on above: If result is greater than the cutoff value of 0.50 g/ml then the potential for PE or DVT exists. Other conditions exist which may cause a falsely elevated level. Please correlate clinically, including radiological findings and other clinical parameters. Result called to and read back by: EBONY PARRISH 10/11/2023 @ 16:24 by [facility] Interpretation and review of laboratory results Abnormal [facility] ESRon 10-11-2023 ESR (Bld) [Velocity] 58 mm/h High 0-15 [facility] Comment on above: Performed By: #### C REACT, ESR ####Testing performed at [address] [address] L PNEUMOPHILIA AG URINEon L PNEUMOPHILIA AG URINE Negative Normal NEGATIVE [facility] Comment on above: Performed By: #### S PAGUT, LPAGUT ####Testing performed at [address] [address] [facility] AGon 07-2 L. pneumophila 1 Ag IA Ql (U) Negative NEGATIVE [facility] MRSA SCREENon 10-11-2023 MRSA DNA JADYN+probe Ql (Unsp spec) Negative Normal NEGATIVE [facility] Comment on above: Performed By: #### M RSAST #### Testing performed at [address] [address] STAPH AUREUS SCREEN Negative Normal NEGATIVE [facility] Comment on above: Result Comment: TEST ING PERFORMED BY PCR Performed By: #### M RSAST #### Testing performed at [facility] [address] [place] [address] No Panel Informationon 10-10 [facility] PROCALCITONINon 10-11-2023 PROCALCITONIN 0.09 ng/mL 0.00 - 0.25 ng/mL [facility] Comment on above: PCT Interpretation Less than 0.10 ng/mL, antibiotic therapy strongly discouraged. 0.10-0.25 ng/mL, antibiotic therapy discouraged. 0.25-0.50 ng/mL, antibiotic therapy encouraged. Greater than 0.50 ng/mL, antibiotic therapy strongly encouraged. [facility] PROCALCITONIN 0.09 ng/mL Normal 0.00-0.25 [facility] Comment on above: Result Comment: PCT Interpretation Less than 0.10 ng/mL, antibiotic therapy strongly discouraged. 0.10-0.25 ng/mL, antibiotic therapy discouraged. 0.25-0.50 ng/mL, antibiotic therapy encouraged. Greater than 0.50 ng/mL, antibiotic therapy strongly encouraged. Performed By: #### U MAC, UMIC #### Testing performed at [facility] [address] [place] [address] S PNEUMONIAE AG URINEon 09-22 S PNEUMONIAE AG URINE Negative Normal NEGATIVE [facility] Comment on above: Performed By: #### S PAGUT, LPAGUT ####Testing performed at [facility] [place] [address] SCREEN: MRSA ONLY, NARES (IS OLATION SCREEN)on 10-11-2023 MRSA isol Org specific cx Ql (Nose) Negative NEGATIVE [facility] STAPHYOCOCCUS AUREUS BY PCR Negative NEGATIVE [facility] Comment on above: TESTING PERFORMED BY PCR [facility] SEDIMENTATION RATE, AUTOMATE Don 10-11-2023 ESR (Bld) [Velocity] 58 mm/h appiris Interpretation and review of laboratory results Abnormal [facility] STREP PNEUMONIAE ANTIGEN, UR INEon 10-11-2023 S. pneumoniae Ag Ql (U) Negative NEGATIVE [facility] BETA HCG, QUAL, BLOODon 09-21 HCG ( test) Ql Negative NEGATIVE [facility] BLOOD CULTUREon 10-10-2023 Bacteria identified Cx Nom (Bld) SPECIMEN DESCRIPTION PERIPHERAL BLOOD DRAW SPECIAL REQUESTS RT AC CULTURE NO GROWTH 5 DAYS REPORT STATUS 10/16/2023 * Result Note: FINAL * Normal [facility] Comment on above: Performed By: #### B LC #### Testing performed at [address] [place] [address] Bacteria identified Cx Nom (Bld) SPECIMEN DESCRIPTION PERIPHERAL BLOOD DRAW SPECIAL REQUESTS LT H CULTURE NO GROWTH 5 DAYS REPORT STATUS 10/16/2023 * Result Note: FINAL * Normal [facility] Comment on above: Performed By: #### B LC ####Testing performed at [address] [place] [address] CBCon 10-10-2023 ABSOLUTE BAS 0.0 10*3/uL Normal 0.0-0.2 [facility] Comment on above: Performed By: #### C MPF, SHCGT, ACBC #### Testing performed at [address] [address] ABSOLUTE EOS 0.0 10*3/uL Normal 0.0-0.7 [facility] Comment on above: Performed By: #### C MPF, SHCGT, ACBC #### Testing performed at [address] [address] ABSOLUTE NEUTROPHIL COUNT 7.7 10*3/uL High 1.4-6.5 [facility] Comment on above: Performed By: #### C MPF, SHCGT, ACBC #### Testing performed at [address] [address] Basophils/100 WBC (Bld) 0.3 % Normal 0.0-2.0 [facility] Comment on above: Performed By: #### C MPF, SHCGT, ACBC #### Testing performed at [address] [place] [address] DTYPE AUTO DIFF Normal [facility] Comment on above: Performed By: #### C MPF, SHCGT, ACBC #### Testing performed at [address] [address] Eosinophils/100 WBC (Bld) 0.1 % Normal 0.0-11.0 [facility] Comment on above: Performed By: #### C MPF, SHCGT, ACBC #### Testing performed at [address] [address] Lymphocytes (Bld) [#/Vol] 1.2 10*3/uL Normal 1.2-3.4 [facility] Comment on above: Performed By: #### C MPF, SHCGT, ACBC #### Testing performed at [address] [address] Lymphocytes/100 WBC (Bld) 12.9 % Low 20.0-55.0 [facility] Comment on above: Performed By: #### C MPF, SHCGT, ACBC #### Testing performed at [address] [address] Monocytes (Bld) [#/Vol] 0.5 10*3/uL Normal 0.0-0.7 [facility] Comment on above: Performed By: #### C MPF, SHCGT, ACBC #### Testing performed at [address] [address] Monocytes/100 WBC (Bld) 5.0 % Normal 0.0-10.0 [facility] Comment on above: Performed By: #### C MPF, SHCGT, ACBC #### Testing performed at [address] [address] Neutrophils/100 WBC (Bld) 81.7 % High 37.0-75.0 [facility] Comment on above: Performed By: #### C MPF, SHCGT, ACBC #### Testing performed at [address] [address] Erythrocyte distribution width (RBC) [Ratio] 14.7 % High 11.5-14.5 [facility] Comment on above: Performed By: #### C MPF, SHCGT, ACBC #### Testing performed at [address] [address] Hematocrit (Bld) [Volume fraction] 38.5 % Normal 36.0-48.0 [facility] Comment on above: Performed By: #### C MPF, SHCGT, ACBC #### Testing performed at [address] [address] Hemoglobin (Bld) [Mass/Vol] 12.9 g/dL Normal 12.0-16.0 [facility] Comment on above: Performed By: #### C ED HOWE ACBC #### Testing performed at [address] [address] MCH (RBC) [Entitic mass] 27.9 pg Normal 26.0-35.0 [facility] Comment on above: Performed By: #### C MPED Wells ACBC #### Testing performed at [address] [address] MCHC (RBC) [Mass/Vol] 33.6 g/dL Normal 27.0-37.0 [facility] Comment on above: Performed By: #### C MPFED ACBC #### Testing performed at [address] [address] MCV (RBC) [Entitic vol] 82.8 fL Normal 80.0-100.0 [facility] Comment on above: Performed By: #### C MPFED ACBC #### Testing performed at [address] [place] [address] Platelet mean volume (Bld) [Entitic vol] 7.7 fL Normal 7.4-11.0 [facility] Comment on above: Performed By: #### C MPED Wells ACBC #### Testing performed at [address] [address] Platelets (Bld) [#/Vol] 264 10*3/uL Normal 130-400 [facility] Comment on above: Performed By: #### C MPFED ACBC #### Testing performed at [address] [address] RBC (Bld) [#/Vol] 4.64 10*6/uL Normal 4.0-5.4 [facility] Comment on above: Performed By: #### C MPFED ACBC #### Testing performed at [address] [address] WBC (Bld) [#/Vol] 9.4 10*3/uL Normal 3.6-11.0 [facility] Comment on above: Performed By: #### C MPF, SHCGT, ACBC #### Testing performed at [facility] [address] [facility] [place] [address] CBC, EDIF, PLATELETon 2023 ABSOLUTE BASOPHIL COUNT 0.0 10*3/uL 0.0 - 0.2 10*3/uL [facility] Basophils/100 WBC (Bld) 0.3 % 0.0 - 2.0 % [facility] Differential cell count method Nom (Bld) AUTO DIFF % [facility] Eosinophils (Bld) [#/Vol] 0.0 10*3/uL 0.0 - 0.7 10*3/uL [facility] Eosinophils/100 WBC (Bld) 0.1 % 0.0 - 11.0 % [facility] Erythrocyte distribution width (RBC) [Ratio] 14.7 % High 11.5 - 14.5 % [facility] Hematocrit (Bld) [Volume fraction] 38.5 % 36.0 - 48.0 % [facility] Hemoglobin (Bld) [Mass/Vol] 12.9 g/dL [facility] Interpretation and review of laboratory results Abnormal [facility] Lymphocytes (Bld) [#/Vol] 1.2 10*3/uL 1.2 - 3.4 10*3/uL [facility] Lymphocytes/100 WBC (Bld) 12.9 % Low 20.0 - 55.0 % [facility] MCH (RBC) [Entitic mass] 27.9 pg 26.0 - 35.0 PG [facility] MCHC (RBC) [Mass/Vol] 33.6 g/dL [facility] MCV (RBC) [Entitic vol] 82.8 fL [facility] Monocytes (Bld) [#/Vol] 0.5 10*3/uL 0.0 - 0.7 10*3/uL [facility] Monocytes/100 WBC (Bld) 5.0 % 0.0 - 10.0 % [facility] Neutrophils (Bld) [#/Vol] 7.7 10*3/uL High 1.4 - 6.5 10*3/uL [facility] Neutrophils/100 WBC (Bld) 81.7 % High 37.0 - 75.0 % [facility] Platelet mean volume (Bld) [Entitic vol] 7.7 fL [facility] Platelets (Bld) [#/Vol] 264 10*3/uL 130 - 400 10*3/uL [facility] RBC (Bld) [#/Vol] 4.64 10*6/uL 4.0 - 5.4 10*6/uL [facility] WBC (Bld) [#/Vol] 9.4 10*3/uL 3.6 - 11.0 10*3/uL [facility] CMP FASTINGon 10-10-2023 A:G RATIO 1.3 RATIO Normal [facility] Comment on above: Performed By: #### C MPF, SHCGT, ACBC ####Testing performed at [address] [address] ALBUMIN 4.0 G/dl Normal 3.5-5.0 [facility] Comment on above: Performed By: #### C MPF, SHCGT, ACBC ####Testing performed at [address] [address] ALP [Catalytic activity/Vol] 77 U/L Normal 38-126 [facility] Comment on above: Performed By: #### C MPF, SHCGT, ACBC ####Testing performed at [address] [address] ALT [Catalytic activity/Vol] 24 U/L Normal <35 [facility] Comment on above: Performed By: #### C MPF, SHCGT, ACBC ####Testing performed at [address] [address] AST [Catalytic activity/Vol] 24 U/L Normal 14-36 [facility] Comment on above: Performed By: #### C MPF, SHCGT, ACBC ####Testing performed at [address] [address] Bilirubin [Mass/Vol] 0.3 mg/dL Normal 0.2-1.3 [facility] Comment on above: Performed By: #### C MPF, SHCGT, ACBC ####Testing performed at [address] [address] Calcium [Mass/Vol] 8.6 mg/dL Normal 8.4-10.2 [facility] Comment on above: Performed By: #### C ED HOWE ACBC ####[place] [address] Chloride [Moles/Vol] 104 mmol/L Normal 98-107 [facility] Comment on above: Result Comment: Klaus baptiste note: Triglyceride levels of 600mg/dL or higher may positively bias chloride results by approximately 2.1 mmol Performed By: #### C ED HOWE, ACBC ####[place] [address] CO2 [Moles/Vol] 22 mmol/L Normal 22-30 [facility] Comment on above: Performed By: #### C ED HOWE ACBC ####[place] [address] Creatinine [Mass/Vol] 0.58 mg/dL Low 0.70-1.20 [facility] Comment on above: Performed By: #### C ED HOWE ACBC ####Testing performed at [address] [address] EST. GFR, 157 ml/min/1.73sq.m [facility] Comment on above: Performed By: #### C ED HOWE ACBC ####Testing performed at [place] [id number] EST. GFR,Non 130 ml/min/1.73sq.m [facility] Comment on above: Performed By: #### C ED HOWE, ACBC ####Testing performed at [address] [address] GFR Information Average GFR for 30-3 9 years old = 107. Normal [facility] Comment on above: Result Comment: [employer] bentley Kidney disease, GFR = <60. Kidney failure, GFR = <15. The GFR estimate is not adjusted for extreme body surface area or acute process, nor has it been validated for women or ethnic groups other than and . Performed By: #### C MPF, SHCGT, ACBC ####Testing performed at [address] [address] Glucose [Mass/Vol] 126 mg/dL High 70-100 [facility] Comment on above: Result Comment: NORMAL <100 mg/dL PREDIABETES 101-126 mg/dL DIABETES 126 mg/dL or higher Performed By: #### C ED HOWE, ACBC ####Testing performed at [address] [address] Potassium [Moles/Vol] 3.4 mmol/L Low 3.5-5.1 [facility] Comment on above: Performed By: #### C ED HOWE, COLTON ####Testing performed at [address] [address] Protein [Mass/Vol] 7.2 g/dL Normal 6.3-8.2 [facility] Comment on above: Performed By: #### C ED HOWE, COLTON ####Testing performed at [address] [address] Sodium [Moles/Vol] 134 mmol/L Low 137-145 [facility] Comment on above: Performed By: #### C ED HOWE, ACANTOLIN ####Testing performed at [place] [id number] Urea nitrogen [Mass/Vol] 7 mg/dL Normal 7-20 [facility] Comment on above: Performed By: #### C ED HOWE, ACBC ####Testing performed at [address] [address] COMPREHENSIVE METABOLIC PANE Nagi 10-10-2023 Albumin [Mass/Vol] 4.0 G/dl 3.5 - 5.0 G/dl [facility] Albumin/Globulin [Mass ratio] 1.3 {ratio} RATIO [facility] ALP [Catalytic activity/Vol] 77 U/L [facility] ALT [Catalytic activity/Vol] 24 U/L NINF [facility] AST [Catalytic activity/Vol] 24 U/L [facility] Bilirubin [Mass/Vol] 0.3 mg/dL [facility] Calcium [Mass/Vol] 8.6 mg/dL [facility] Chloride [Moles/Vol] 104 mmol/L [facility] Comment on above: Please note: Triglyc eride levels of 600mg/dL or higher may positively bias chloride results by approximately 2.1 mmol CO2 [Moles/Vol] 22 mmol/L [facility] Creatinine [Mass/Vol] 0.58 mg/dL Low [facility] GFR COMMENT Average GFR for 30-3 9 years old = 107. [facility] Comment on above: Chronic Kidney disea se, GFR = <60. Kidney failure, GFR = <15. The GFR estimate is not adjusted for extreme body surface area or acute process, nor has it been validated for women or ethnic groups other than and . GFR/1.73 sq M.predicted among blacks MDRD (S/P/Bld) [Vol rate/Area] 157 mL/min/{1.73_m2} ml/min/1.73s q.m [facility] GFR/1.73 sq M.predicted among non-blacks MDRD (S/P/Bld) [Vol rate/Area] 130 mL/min/{1.73_m2} ml/min/1.73s q.m [facility] Glucose post fast [Mass/Vol] 126 mg/dL High [facility] Comment on above: NORMAL <100 mg/dL PREDIABETES 101-126 mg/dL DIABETES 126 mg/dL or higher Interpretation and review of laboratory results Abnormal [facility] Potassium [Moles/Vol] 3.4 mmol/L Low [facility] Protein [Mass/Vol] 7.2 g/dL [facility] Sodium [Moles/Vol] 134 mmol/L Low [facility] Urea nitrogen [Mass/Vol] 7 mg/dL [facility] HCG ( test) Qlon [facility] INFLUENZA A AND B, PCRon FLUAV and FLUBV Ag IF Nom (Unsp spec) Negative NEGATIVE [facility] FLUBV Ag IA Ql (Unsp spec) Negative NEGATIVE [facility] Comment on above: TESTING PERFORMED BY [facility] LACTATE, BLOODon 10-10-2023 Lactate [Moles/Vol] 2.0 mmol/L 0.7 - 2. 0 mmol/L [facility] LACTATE,BLOODon 10-10-2023 Lactate [Moles/Vol] 2.0 mmol/L Normal 0.7-2.0 [facility] Comment on above: Performed By: #### C OVID #### Testing performed at [address] [address] NOVEL CORONAVIRUSon 10-10-19 24 NARRATIVE This test was perfor med using isothermal JADYN and has been approved as Emergency Use Authorization (EUA) for the qualitative detection [id number] nucleic acid. Normal [facility] Comment on above: Performed By: #### C OVID #### [place] [address] SARS-CoV-2 (COVID-19) RNA JADYN+probe Ql (Unsp spec) Not detected Normal NOT DETECTED [facility] Comment on above: Result Comment: Nega tive results do not preclude SARS-CoV-2 infection and should not be used as the sole basis for treatment or other patient management decisions. Optimum specimen types and timing for peak viral levels during infections caused by SARS-CoV-2 has not been determined. The possibility of a false negative result should especially be considered if the patient's recent exposures or clinical presentation suggest that SARS-CoV-2 infection is probable, and diagnostic tests for other causes of illness (e.g., other respiratory illness) are negative. Collection of a new specimen and re-testing may be necessary if the patient is critically ill or clinically deteriorating. Performed By: #### C OVID #### Testing performed at [address] [address] N[facility] CORONAVIRUS LAB 1 - NA SOPHARYNGEALon 10-10-2023 NARRATIVE -1 This test was perfor med using isothermal JADYN and has been approved as Emergency Use Authorization (EUA) for the qualitative detection [id number]-RtV-6 nucleic acid. [facility] SARS-CoV-2 (COVID-19) RNA JADYN+probe Ql (Unsp spec) Not detected NOT DETECTED [facility] Comment on above: Negative results do not preclude SARS-CoV-2 infection and should not be used as the sole basis for treatment or other patient management decisions. Optimum specimen types and timing for peak viral levels during infections caused by SARS-CoV-2 has not been determined. The possibility of a false negative result should especially be considered if the patient's recent exposures or clinical presentation suggest that SARS-CoV-2 infection is probable, and diagnostic tests for other causes of illness (e.g., other respiratory illness) are negative. Collection of a new specimen and re-testing may be necessary if the patient is critically ill or clinically deteriorating. [facility] RAPID FLU Aon 10-10-2023 INFLUENZA A Negative Normal NEGATIVE [facility] Comment on above: Performed By: #### R FLUAB ####Testing performed at [address] [address] INFLUENZA B Negative Normal NEGATIVE [facility] Comment on above: Result Comment: TEST ING PERFORMED BY JADYN Performed By: #### R FLUAB ####Testing performed at [address] [address] SERUM HCG QUALon 10-10-2023 SERUM BETA HCG,QUAL Negative Normal NEGATIVE [facility] Comment on above: Performed By: #### C MPF, SHCGT, ACBC ####Testing performed at [address] [address] XR CHEST PA AND LATERAL 2 EWSon 10-10-2023 XR CHEST PA AND LATERAL 2 VIEWS EXAM: XR CHEST PA AND LATERAL 2 VIEWS HISTORY: sob, cough COMPARISON: Two-view chest from 06/10/2013. TECHNIQUE: PA and lateral chest were done. FINDINGS: Trachea is midline. Mediastinum is not widened. Heart size is moderately enlarged. Mild atelectasis noted in the lung bases. No nodule or infiltrate or pneumothorax is noted. IMPRESSION: 1. Slight atelectasis or effusion suggested in the lung bases. 2. Moderate cardiomegaly. Normal [facility] XR Chest PA and Lateralon IMPRESSION: 1. Slight atelectasis or effusion suggested in the lung bases. 2. Moderate cardiomegaly. RADIOLOGY EXAM: XR CHEST PA AN D LATERAL 2 VIEWS HISTORY: sob, cough COMPARISON: Two-view chest from 06/10/2013. TECHNIQUE: PA and lateral chest were done. FINDINGS: Trachea is midline. Mediastinum is not widened. Heart size is moderately enlarged. Mild atelectasis noted in the lung bases. No nodule or infiltrate or pneumothorax is noted. RADIOLOGY Mansoor Ambrose, DO - 10/10/2023 EXAM: XR CHEST PA AND LATERAL 2 VIEWS HISTORY: sob, cough COMPARISON: Two-view chest from 06/10/2013. TECHNIQUE: PA and lateral chest were done. FINDINGS: Trachea is midline. Mediastinum is not widened. Heart size is moderately enlarged. Mild atelectasis noted in the lung bases. No nodule or infiltrate or pneumothorax is noted. IMPRESSION IMPRESSION: 1. Slight atelectasis or effusion suggested in the lung bases. 2. Moderate cardiomegaly. [facility] Radiology Study observation (narrative) [facility] XR Chest PA and LateralOrder ed By: Mansoor Ambrose on 10-10-2023 [facility] Work Phone: Basic metabolic 2000 panelon 01-28-2023 Anion gap [Moles/Vol] 13 mmol/L Normal 10-20 [facility] Comment on above: Performed By: #### 2 4321-2 #### DEION MASCORRO ([id number]) [facility] ([facility]) [address] [place] [address] Calcium [Mass/Vol] 8.8 mg/dL Normal 8.6-10.3 [facility] Comment on above: Performed By: #### 2 4321-2 #### DEION MASCORRO ([id number]) [facility] ([facility]) [address] [place] [address] 19681 Chloride [Moles/Vol] 104 mmol/L Normal 98-107 [facility] Comment on above: Performed By: #### 2 4321-2 #### DEION MASCORRO ([id number]) [facility] ([facility]) [employer] [place] [address] CO2 [Moles/Vol] 26 mmol/L Normal 21-32 [facility] Comment on above: Performed By: #### 2 4321-2 #### DEION MASCORRO ([id number]) [facility] ([facility]) [address] [place] [address]92 Creatinine [Mass/Vol] 0.58 mg/dL Normal 0.50-1.05 [facility] Comment on above: Performed By: #### 2 4321-2 #### DEION MASCORRO ([id number]) [facility] ([facility]) [address] [place] [address] GFR/1.73 sq M.predicted MDRD (S/P/Bld) [Vol rate/Area] mL/min/{1.73_m2} Normal >60 [facility] Comment on above: Result Comment: Calc ulations of estimated GFR are performed using the 2020 CKD-EPI Study Refit equation without the race variable for the IDMS-Traceable creatinine methods. https://jasn.asnjournals.org/content/early//ASN.18647 56976 Performed By: #### 2 4321-2 #### DEION MASCORRO ([id number]) [facility] ([facility]) [address] [place] [address] Glucose [Mass/Vol] 78 mg/dL Normal 74-99 [facility] Comment on above: Performed By: #### 2 4321-2 #### DEION MASCORRO ([id number]) [facility] ([facility]) [address] [place] [address]67 Potassium [Moles/Vol] 4.2 mmol/L Normal 3.5-5.3 [facility] Comment on above: Performed By: #### 2 4321-2 #### DEION MASCORRO ([id number]) [facility] ([facility]) [address] [place] [address] Sodium [Moles/Vol] 139 mmol/L Normal 136-145 [facility] Comment on above: Performed By: #### 2 4321-2 #### DEION MASCORRO ([id number]) [facility] ([facility]) [address] [place] [address]99 Urea nitrogen [Mass/Vol] 14 mg/dL Normal 6-23 [facility] Comment on above: Performed By: #### 2 4321-2 #### DEION MASCORRO ([id number]) [facility] ([facility]) [address] [place] [address] CBC W Auto Differential pane l (Bld)on 01-28-2023 Basophils (Bld) [#/Vol] 0.05 x10*3/uL Normal 0.00-0.10 [facility] Comment on above: Performed By: #### 5 7021-8 #### DEION MASCORRO ([id number]) [facility] ([facility]) [address] [place] [address] Basophils/100 WBC (Bld) 0.4 % Normal 0.0-2.0 [facility] Comment on above: Performed By: #### 5 7021-8 #### DEION MASCORRO ([id number]) [facility] ([facility]) [address] [place] [address] Eosinophils (Bld) [#/Vol] 0.52 x10*3/uL Normal 0.00-0.70 [facility] Comment on above: Performed By: #### 5 7021-8 #### DEION MASCORRO ([id number]) [facility] ([facility]) [address] [place] [address] Eosinophils/100 WBC (Bld) 4.0 % Normal 0.0-6.0 [facility] Comment on above: Performed By: #### 5 7021-8 #### DEION MASCORRO ([id number]) [facility] ([facility]) [address] [place] [address] Erythrocyte distribution width (RBC) [Ratio] 16.1 % High 11.5-14.5 [facility] Comment on above: Performed By: #### 5 7021-8 #### DEION MASCORRO ([id number]) [facility] ([facility]) [address] [place] [address] Hematocrit (Bld) [Volume fraction] 42.9 % Normal 36.0-46.0 [facility] Comment on above: Performed By: #### 5 7021-8 #### DEION MASCORRO ([id number]) [facility] ([facility]) [address] [place] [address] Hemoglobin (Bld) [Mass/Vol] 13.2 g/dL Normal 12.0-16.0 [facility] Comment on above: Performed By: #### 5 7021-8 #### DEION MASCORRO ([id number]) [facility] ([facility]) [address] [place] [address] Immature granulocytes (Bld) [#/Vol] 0.06 x10*3/uL Normal 0.00-0.70 [facility] Comment on above: Performed By: #### 5 7021-8 #### DEION MASCORRO ([id number]) [facility] ([facility]) [address] [place] [address] Immature granulocytes/100 WBC (Bld) 0.5 % Normal 0.0-0.9 [facility] Comment on above: Result Comment: Dottie ture Granulocyte Count (IG) includes promyelocytes, myelocytes and metamyelocytes but does not include bands. Percent differential counts (%) should be interpreted in the context of the absolute cell counts (cells/UL). Performed By: #### 5 7021-8 #### DEION MASCORRO ([id number]) [facility] ([facility]) [address] [place] [address] Lymphocytes (Bld) [#/Vol] 4.25 x10*3/uL Normal 1.20-4.80 [facility] Comment on above: Performed By: #### 5 7021-8 #### DEION MASCORRO ([id number]) [facility] ([facility]) [address] [place] [address] Lymphocytes/100 WBC (Bld) 32.4 % Normal 13.0-44.0 [facility] Comment on above: Performed By: #### 5 7021-8 #### DEION MASCORRO ([id number]) [facility] ([facility]) [address] [place] [address] 48851 MCH (RBC) [Entitic mass] 26.1 pg Normal 26.0-34.0 [facility] Comment on above: Performed By: #### 5 7021-8 #### DEION AMSCORRO ([id number]) [facility] ([facility]) [address] [place] [address] 40768 MCHC (RBC) [Mass/Vol] 30.8 g/dL Low 32.0-36.0 [facility] Comment on above: Performed By: #### 5 7021-8 #### DEION MASCORRO ([id number]) [facility] ([facility]) [address] [place] [address]2047 MCV (RBC) [Entitic vol] 85 fL Normal 80-100 [facility] Comment on above: Performed By: #### 5 7021-8 #### DEION MASCORRO ([id number]) [facility] ([facility]) [address] [place] [address] 74621 Monocytes (Bld) [#/Vol] 0.64 x10*3/uL Normal 0.10-1.00 [facility] Comment on above: Performed By: #### 5 7021-8 #### DEION MASCORRO ([id number]) [facility] ([facility]) [address] [place] [address] 91880 Monocytes/100 WBC (Bld) 4.9 % Normal 2.0-10.0 [facility] Comment on above: Performed By: #### 5 7021-8 #### DEION MASCORRO ([id number]) [facility] ([facility]) [address] [place] [address] 30963 Neutrophils (Bld) [#/Vol] 7.58 x10*3/uL Normal 1.20-7.70 [facility] Comment on above: Result Comment: Perc ent differential counts (%) should be interpreted in the context of the absolute cell counts (cells/uL). Performed By: #### 5 7021-8 #### DEION MASCORRO ([id number]) [facility] ([facility]) [address] [place] [address] 22811 Neutrophils/100 WBC (Bld) 57.8 % Normal 40.0-80.0 [facility] Comment on above: Performed By: #### 5 7021-8 #### DEION MASCORRO ([id number]) [facility] ([facility]) [address] [place] [address] 21697 Nucleated RBC/100 WBC (Bld) [Ratio] 0.0 /100 WBCs Normal 0.0-0.0 [facility] Comment on above: Performed By: #### 5 7021-8 #### DEION MASCORRO ([id number]) [facility] ([facility]) [address] [place] [address] 75890 Platelets (Bld) [#/Vol] 405 x10*3/uL Normal 150-450 [facility] Comment on above: Performed By: #### 5 7021-8 #### DEION MASCORRO ([id number]) [facility] ([facility]) [address] [place] [address] RBC (Bld) [#/Vol] 5.05 x10*6/uL Normal 4.00-5.20 [facility] Comment on above: Performed By: #### 5 7021-8 #### DEION MASCORRO ([id number]) [facility] ([facility]) [address] [place] [address] WBC (Bld) [#/Vol] 13.1 x10*3/uL High 4.4-11.3 [facility] Comment on above: Performed By: #### 5 7021-8 #### DEION MASCORRO ([id number]) [facility] ([facility]) [address] [place] [address] Calcidiolon 01-28-2023 25-hydroxyvitamin D3 [Mass/Vol] 27 ng/mL Low 30-100 [facility] Comment on above: Order Comment: Defic iency: < 20 ng/ml Insufficiency: 20-29 ng/ml Sufficiency: 30-100 ng/ml This assay accurately quantifies the sum of Vitamin D3, 25-Hydroxy and Vitamin D2,25-Hydroxy. Performed By: #### 1 989-3 #### DEION MASCORRO ([id number]) [facility] ([facility]) [address] [place], [place] [address] Lipid 1996 panelon 3 Cholesterol [Mass/Vol] 216 mg/dL High 0-199 [facility] Comment on above: Result Comment: Age Desirable Borderline High High 0-19 Y 0 - 169 170 - 199 >/= 200 20-24 Y 0 - 189 190 - 224 >/= 225 >24 Y 0 - 199 200 - 239 >/= 240 All ranges are based on fasting samples. Specific therapeutic targets will vary based on patient-specific cardiac risk. Pediatric guidelines reference:Pediatrics 2011, 128(S5).Adult guidelines reference: NCEP ATPIII Guidelines,CHLOE 2001, 258:2486-97 Venipuncture immediately after or during the administration of Metamizole may lead to falsely low results. Testing should be performed immediately prior to Metamizole dosing. Performed By: #### 2 4331-1 #### DEION MASCORRO ([id number]) [facility] ([facility]) [address] [place] [address] Cholesterol in HDL [Mass/Vol] 62.0 mg/dL Normal [facility] Comment on above: Result Comment: Age Very Low Low Normal High 0-19 Y < 35 < 40 40-45 ---- 20-24 Y ---- < 40 >45 ---- >24 Y ---- < 40 40-60 >60 Performed By: #### 2 4331-1 #### DEION MASCORRO ([id number]) [facility] ([facility]) [employer] [place] [address] Cholesterol in LDL [Mass/Vol] 108 mg/dL High <=99 [facility] Comment on above: Result Comment: Near Borderline AGE Desirable Optimal High High Very High 0-19 Y 0 - 109 --- 110-129 >/= 130 ---- 20-24 Y 0 - 119 --- 120-159 >/= 160 ---- >24 Y 0 - 99 100-129 130-159 160-189 >/=190 Performed By: #### 2 4331-1 #### DEION MASCORRO ([id number]) [facility] ([facility]) [employer] [place] [address] Cholesterol in VLDL [Mass/Vol] 46 mg/dL High 0-40 [facility] Comment on above: Performed By: #### 2 4331-1 #### EDION MASCORRO ([id number]) [facility] ([facility]) [address] [place] [address] CHOLESTEROL/HDL RATIO 3.5 Normal [facility] Comment on above: Result Comment: Ref Values Desirable < 3.4 High Risk > 5.0 Performed By: #### 2 4331-1 #### DEION MASCORRO ([id number]) [facility] ([facility]) [address] [place] [address] 61699 NON HDL CHOLESTEROL 154 mg/dL High 0-149 [facility] Comment on above: Result Comment: Age Desirable Borderline High High Very High 0-19 Y 0 - 119 120 - 144 >/= 145 >/= 160 20-24 Y 0 - 149 150 - 189 >/= 190 ---- >24 Y 30 mg/dL above LDL Cholesterol goal Performed By: #### 2 4331-1 #### DEION MASCORRO ([id number]) [facility] ([facility]) [address] [place] [address] Triglyceride [Mass/Vol] 228 mg/dL High 0-149 [facility] Comment on above: Result Comment: Age Desirable Borderline High High Very High 0 D-90 D 19 - 174 ---- ---- ---- 91 D- 9 Y 0 - 74 75 - 99 >/= 100 ---- 10-19 Y 0 - 89 90 - 129 >/= 130 ---- 20-24 Y 0 - 114 115 - 149 >/= 150 ---- >24 Y 0 - 149 150 - 199 200- 499 >/= 500 Venipuncture immediately after or during the administration of Metamizole may lead to falsely low results. Testing should be performed immediately prior to Metamizole dosing. Performed By: #### 2 4331-1 #### DEION MASCORRO ([id number]) [facility] ([facility]) [address] [place], [place] [address] TSH WITH REFLEX TO FREE T4 I F ABNORMALon 01-28-2023 TSH Qn 1.79 m[IU]/L Normal 0.44-3.98 [facility] Comment on above: Order Comment: TSH t esting is performed using different testing methodology at [facility] than at other [facility]. Direct result comparisons should only be made within the same method. Performed By: #### T HYDS #### DEION MASCORRO ([id number]) [facility] ([facility]) [address] [place] [address] Provider Letteron 10-25-2022 Provider Letter (Inserted Image. Niharika ble to display) October 25, 2022 ANAI WEBBER [address] [place] [address] : 1995 Dear Anai , We have been trying to reach you with no success. It is important that you return our call regarding your test results upon receiving this letter. Also, at the time of your call, please provide us with your current information. Thank you for your prompt attention to this matter. Sincerely, Normal [facility] Family Medicine Office/Clini c Noteon 10-05-2022 Family Medicine Office/Clinic Note HPI Staff Patient here today for 2 week follow up. De Quervain's Tenosynovitis Left: patient stopped wearing brace due to making pain worse concerns: discuss trazodone use Health Maintenance: Pap: Last Labs: History of Present Illness Anai Webber is a 27-year-old female who presents for a 2-week follow-up for de Quervain's tenosynovitis of the left wrist. The patient stopped wearing the brace due to worsening pain. She is still having the issue on the left wrist. She has lump on her left wrist but not the same place as it was. It is where it hurts. Review of Systems PHQ Score Initial Depression Screen Score: 0 Negative except as stated in HPI. Physical Exam Vitals & Measurements HR: 93(Peripheral) BP: 128/84 SpO2: 98% HT: 64 in HT: 163 cm WT: 111.7 kg WT: 245.74 lb BMI: 42.04 General: Patient is alert and oriented x4. No cardiopulmonary distress. Answers all questions, maintains eye contact. Musculoskeletal: There is a 4 x 4 mm depressible cyst like lesion in the radial aspect of her right wrist at the base of the patient. In the medial aspect on the radial side of the wrist, there is mild to moderate tenderness on palpation. There is no erythema, or induration. Assessment/Plan The patient's vitals are within normal limits. 1. Left wrist pain (M25.532: Pain in left wrist) I have ordered an ultrasound of the lump. 2. Non-smoker (Z78.9: Other specified health status) The patient is advised to continue to refrain from smoking. 3. BMI 40.0-44.9, adult (Z68.41: Body mass index [BMI] 40.0-44.9, adult) The standard range for ages 29-year-old and older is > =18.5 and < 25 kg/m2. Your BMI today was above this range. There are medical benefits to weight loss. Increase whole foods, decrease processed foods, exercise at least 150 minutes per week. We can offer counselling, referral, and/or medical support in addressing this problem. Your BMI and weight management will be followed at subsequent visits. 4. Morbid obesity (E66.01: Morbid (severe) obesity due to excess calories) The patient is advised to follow healthy fitness, nutrition, and lifestyle practices. Insomnia (G47.00: Insomnia, unspecified) Portions of this record may have been created with voice recognition artificial intelligence software, specifically [employer], [employer] and or [employer]. Substitutions may have occurred due to the inherent limitations of voice recognition and artificial intelligence software. Documentation services were performed after patient or guardian consented to allow [employer] to record this visit. SEAN av specialist Sumit Toney and provider reviewed before signing. Follow-up No qualifying data available Problem List/Past Medical History Ongoing Asthma Bipolar disorder BMI 40.0-44.9, adult Excessive weight gain Former smoker Left wrist pain Morbid obesity Screening for cardiovascular condition Seasonal allergies Sleep difficulties Uses control Historical Anemia Ovarian cyst Procedure/Surgical History D&C - Dilatation and curettage. Medications escitalopram 10 mg Tab, 10 mg= 1 tab(s), Oral, Daily, 1 refills Lamictal 200 mg Tab, 200 mg= 1 tab(s), Oral, Daily, 1 refills lamotrigine 200 mg Tab, 200 mg= 1 tab(s), Oral, Daily Brian 1.5/30 oral tablet, 1 tab(s), Oral, Daily, 1 refills Multiple Vitamins with Iron oral tablet, 1 tab(s), Oral, Daily traZODONE 50 mg Tab, 50 mg= 1 tab(s), Oral, Once a day (at bedtime), 1 refills Zyrtec Liquid Gels 10 mg oral capsule, 10 mg= 1 cap(s), Oral, Daily, PRN Allergies chlorhexidine containing compounds (Rash) penicillin (Rash) Social History Alcohol Current, Wine, Liquor, 1-2 times per month, Household alcohol concerns: No., 10/01/2022 Substance Abuse - Denies Substance Abuse, 05/07/2019 Household substance abuse concerns: No., 09/18/2022 Tobacco - No Risk, 08/27/2022 Former smoker, quit more than 30 days ago Tobacco Use:. Never Smokeless Tobacco Use:. Cigarettes, Started age 18.0 Years. Stopped age 23 Years. Household tobacco concerns: No., 10/01/2022 Family History Acute myocardial infarction: Grandparent. Anxiety: Mother and Sister. Depression: Mother and Sister. Diabetes mellitus type 2: Grandparent. Hypertension: Grandparent. POTS (postural orthostatic tachycardia syndrome): Sister. Immunizations Vaccine Date Status influenza virus vaccine, live, trivalent 01/2019 Recorded Normal [facility] Comment on above: Result Comment: Elec tronically Signed By: Alexander Starr MD\.br\Date and Time Signed: 10/05/22 08:17 EDT\.br\Electronically Co-Signed By: Sumit Toney\.br\Date and Time Co-Signed: 10/01/22 12:35 EDT US Extremity Non-Vascular Li puma Ansarion 10-03-2022 US Extremity Non-Vascular Limited Left Exam Date/Time: 10/01/2022 14:44 EDT Reason for Exam: M25.532;Lump Report IMPRESSION: 2 MM STRUCTURE WITHIN THE SUBCUTANEOUS SOFT TISSUES MOST LIKELY REPRESENTING A GANGLION CYST HOWEVER CONTINUED CLINICAL SURVEILLANCE IS RECOMMENDED. EXAMINATION: US Extremity Non-Vascular Limited Left HISTORY: Painful distal wrist lump for 2 weeks. COMPARISON: None available TECHNIQUE: Ultrasound evaluation was performed of the soft tissues of the wrist in the area of the patient's concern. FINDINGS: The subcutaneous soft tissues there is a hypoechoic nonvascular structure measuring approximately 2 x 2 by 1 mm. No abnormal blood flow adjacent to this structure. No additional soft tissue lesions or fluid collections. Ordering Provider: Alexander Starr FINAL REPORT Dictated: 10/03/2022 9:04 am Nick Myles DO Signed (Electronic Signature): 10/03/2022 9:04 am Signed by: Nick Myles DO Transcribed by: KATRINA Technologist: NICOLE Normal [facility] Consent for Treatmenton 09-21 Consent for Treatment [id number]: 127 Normal [facility] Family Medicine Office/Clini c Noteon 09-30-2022 Family Medicine Office/Clinic Note Chief Complaint left wrist pain HPI Staff Patient here for wrist pain. Patient states she was seen last week at a urgent care and ER in [place] and had x-rays that came back negative. Onset: 2 weeks ago Location: left wrist Characteristics: pain with range of motion Aggravated by: movement Relieved by: wrist brace, and tried a arthritis topical cream that was not effective. Associated Symptoms: none History of Present Illness Anai Webber is a 27-year-old female presenting today for pain in her left wrist. She states that she was seen last week at urgent care, and ER in [place] and had x-rays, which was negative. Her left wrist pain began 2 weeks ago. There is pain with range of motion. It is aggravated by movement. It is relieved by using a wrist brace. She has tried an arthritis topical cream that was not effective. She is uncertain of what caused her left wrist pain, but reports that she developed the habit of cracking her wrists by pushing her palm towards her forearm. She denies experiencing this before. She did not experience any pain when she was cracking them. Her pain started 2 days after cracking them. She went to urgent care a week after her pain started, and prescribed an arthritis cream, which was not effective. She reports that she almost dropped her daughter when her wrist locked up, so she went to the ER, had an x-ray, which was normal. She was told that she sleeps with her wrists flexed. She denies noticing her pain being worse when she woke up in the morning. She denies any recent falls. She does not recall doing anything that would have caused the pain, even bumping it. She explains that there are certain things that she cannot do due to the pain, like put her hair in a ponytail, or that she can only pick her baby up if she has the thumb spica brace on. She reports that certain carrying positions exacerbates the pain, such as when she lifts her 3-month-old daughter with both hands. Her pain is mainly isolated to her left thumb. She denies numbness or tingling in her hand or arm. She states that she is okay with taking ibuprofen. She denies ulcers, bleeding, or discomfort with ibuprofen, Aleve, or Motrin. She denies acid reflux. Her kidneys are healthy. She has a scar on her thumb from the brace. Review of Systems PHQ Score Initial Depression Screen Score: 6 Negative except as stated in HPI. Physical Exam Vitals & Measurements HR: 99(Peripheral) BP: 100/68 SpO2: 97% HT: 64 in HT: 163 cm WT: 112.4 kg WT: 247.28 lb BMI: 42.3 General: Patient is alert and oriented x4. No cardiopulmonary distress. Answers all questions, maintains eye contact. Patient's vitals are within normal limits. Musculoskeletal: On the left side, when the patient is asked to grasp her thumb with her fingers and then I deviate the wrist to the side opposite the thumb, she has significant pain. She has tenderness in the left base of the thumb. Cardiovascular: The capillary refill in both hands is within 2 seconds. Neurological: Light touch sensation is intact in both hands. Musculoskeletal: Strength in the right hand is 5/5. In the left hand, the strength is 4/5, and the maneuver that was tested is opposition of the fingers to the thumb and trying to separate the fingers. This was the exam that was performed on both hands. Assessment/Plan 1. De Quervain's tenosynovitis, left (M65.4: Radial styloid tenosynovitis [de Quervain]) I have advised the patient to continue wearing her thumb spica brace on the left hand that goes beyond the wrist and to wear as much as possible. Also apply cold compress periodically throughout the day for 10 to 15 minutes, and take NSAIDs 400 mg every 6 hours as needed. After about 2 weeks, if the patient continues to have pain in the hand while avoiding lifting her baby with that wrist especially in an outstretched holding position, I have informed her that we can consider an injection. 2. Former smoker (Z87.891: Personal history of nicotine dependence) Patient is advised to continue to refrain from smoking. 3. Morbid obesity (E66.01: Morbid (severe) obesity due to excess calories) Patient is advised to follow healthy nutrition and lifestyle practices and once her left wrist issue is resolved, to resume fitness activities, but in the meantime, she can do any fitness activities that do not affect the left wrist. 4. BMI 40.0-44.9, adult (Z68.41: Body mass index [BMI] 40.0-44.9, adult) The standard range for ages 29-year-old and older is > =18.5 and < 25 kg/m2. Your BMI today was above this range. There are medical benefits to weight loss. Increase whole foods, decrease processed foods, exercise at least 150 minutes per week. We can offer counselling, referral, and/or medical support in addressing this problem. Your BMI and weight management will be followed at subsequent visits. Portions of this record may have been created with voice recognition artificial intelligence software (more content not included)... Normal [facility] Comment on above: Result Comment: Elec tronically Signed By: Alexander Starr MD\.br\Date and Time Signed: 09/30/22 17:49 EDT\.br\Electronically Co-Signed By: Shalonda Monsivais\.br\Date and Time Co-Signed: 09/18/22 10:58 EDT Ambulatory Visit Summaryon 0 09-18-2022 Ambulatory Visit Summary LAWANDA ANAI L :1995 Visit Date:09/18/2022 Ambulatory Visit Instructions Your Diagnosis BMI 40.0-44.9, adult Former smoker Your Care Team Attending Physician - Alexander Starr MD Primary Care Physician - LAURA PEREZ CNP This Is Your Medications List cetirizine (Zyrtec Liquid Gels 10 mg oral capsule) escitalopram (escitalopram 10 mg Tab) ethinyl estradiol-norethindrone (Brian 1.5/30 oral tablet) lamotrigine (Lamictal 200 mg Tab) lamotrigine (lamotrigine 200 mg Tab) melatonin (melatonin 3 mg Tab) multivitamin with iron (Multiple Vitamins with Iron oral tablet) trazodone (traZODONE 50 mg Tab) Procedures Performed D&C - Dilatation and curettage. Discharge Vitals Heart Rate (Peripheral) 99 Blood Pressure 100/68 Height 163 cm Height 64 in Weight 112.4 kg Weight 247.28 lb BMI 42.3 Medications What How Much When Instructions Unchanged cetirizine (Zyrtec Liquid Gels 10 mg oral capsule) 1 Capsules By Mouth Every day as needed for for allergy symptoms Unchanged escitalopram (escitalopram 10 mg Tab) 1 Tablets By Mouth Every day Unchanged ethinyl estradiol-norethindrone (Brian 1.5/ 30 oral tablet) 1 Tablets By Mouth Every day Unchanged lamotrigine (Lamictal 200 mg Tab) 1 Tablets By Mouth Every day Unchanged lamotrigine (lamotrigine 200 mg Tab) 1 Tablets By Mouth Every day Unchanged melatonin (melatonin 3 mg Tab) 1 Tablets By Mouth Once a day (at bedtime) as needed for for insomnia Unchanged multivitamin with iron (Multiple Vitamins with Iron oral tablet) 1 Tablets By Mouth Every day Unchanged trazodone (traZODONE 50 mg Tab) 1 Tablets By Mouth Once a day (at bedtime) Allergies chlorhexidine containing compounds (Rash) penicillin (Rash) Problems Ongoing - Any problem that you are currently receiving treatment for. Asthma Bipolar disorder BMI 40.0-44.9, adult Excessive weight gain Former smoker Screening for cardiovascular condition Seasonal allergies Sleep difficulties Uses control Historical - Any problem that you are no longer receiving treatment for. Anemia Ovarian cyst Normal [facility] Provider Note - ED v3on 08-23 Provider Note - ED v3 Provider Note: Results/Vital Signs: Pediatric Clinical Scoring (JT) is no recent JT charted on this account Chart Review: ED NOTES ED NOTES: HPI: She complains of approximately 1 week of left wrist pain that radiates from the thumb out into the wrist. She denies any specific strain or trauma. Medical/Family HX: Depression ====Physical Exam==== Constitutional/General: Alert , well appearing, nontoxic, and in NAD. Head: Normocephalic and atraumatic. Eyes: PER, conjunctive normal, sclera nonicteric, subconjunctival layer is pink. Mouth: handling secretions, no trismus, moist mucous membranes Neck: Supple, full ROM, no stridor, no crepitus, no meningeal signs. Trachea at midline. Respiratory: not in respiratory distress. Chest: normal chest movement GI: nondistended Musculoskeletal: Moves all extremities, warm and well perfused diffuse tenderness across the left wrist with no obvious swelling or deformities noted. Integument: Skin warm and dry, no rashes. Neurologic: GCS 15, no focal deficits Psychiatric: Normal affect. I have reviewed and confirmed nurses/medics notes for patient past, social and family history. Portions of this note were dictated by speech recognition. An attempt at proof reading was made to minimize errors. Minor errors in bluing oven tender may be present. HISTORY OF PRESENTING ILLNESS ANAI is a 27 year old Female and was seen by me at 12-Sep-2022 20:55 for a chief complaint of wrist pain/injury (pt here for left wrist pain that started last week, states that she did not injure it. Reports that she went to yesterday and they prescribed volteran cream which has not helped, pain has gotten worse. Reports her wrist will 'lock up' occasionally) . Triage Information: Most recent Vital Sign Value Date Temp (F): 98.4 09-12-2022 21:01 Temp (C): 36.8 09-12-2022 21:01 Heart Rate (beats/min): 98 09-12-2022 21:01 Respirations (breaths/min): 20 09-12-2022 21:01 SpO2 (%): 98 09-12-2022 21:01 BP Systolic (mm Hg): 134 09-12-2022 21:01 BP Diastolic (mm Hg): 86 09-12-2022 21:01 PAST MEDICAL HISTORY ALLERGIES/INTOLERANCES: Allergy Allergen: penicillin Type: Drug Reaction: Rash HEALTH HISTORY: No documented data. OUTPATIENT MEDICATIONS: Home Medications Review Status for Reconciliation: Complete Med Status: Patient Currently Takes Medications Drug Name: LaMICtal 200 mg oral tablet Instructions: null Drug Name: ZyrTEC Instructions: null Drug Name: Zoloft 50 mg oral tablet Instructions: 1 tab(s) orally once a day SIGNIFICANT EVENTS: No documented data. [facility] MDM/ED COURSE: X-ray of the wrist as reviewed by myself was unremarkable. Patient was placed in a thumb spica splint by nursing staff and will follow-up with local orthopedics. Differential Diagnoses Considered: Wrist pain, wrist fracture Chronic Medical Conditions Significantly Affecting Care: None Escalation of Care: Appropriate for discharge home to follow up with PCP Social Determinants of Health Significantly Affecting Care: None that affect their care today Diagnostic testing considered: As above Independent Interpretation of Studies: I independently reviewed and agree with radiology reads: As above The x-ray of your wrist shows no acute abnormalities. You have been placed in a splint which you may use as needed for comfort and I otherwise recommend that you follow-up with local orthopedics. You may also use ibuprofen or Tylenol as needed for pain. Please otherwise feel free to return to the nearest ER for any new or worsening concerns. PROGRESS NOTE CUSTOM SPLINT Procedure Location: bedside Pre-procedure Verification: completed Time Out - Final Verification: completed immediately prior to procedure start Procedure performed by: (Nursing) Linseed Oil Temperer(s): none Findings: grossly normal anatomy Specimen: no Estimated Blood Loss (mL): none Post-Procedure Diagnosis: Thumb spica splint to left wrist The patient requires a splint due to stabilization of the extremity of the . Neurovascular status prior to splint application: neurovascular status intact and no pain. The extremity was placed in the desired position, velcro splint was applied. Post splint application the patient's neurovascular status is: neurovascular status intact and no pain. Complications: There were no complications associated with the procedure DISPOSITION Diagnosis/Annotation: ED Dx Name:Left wrist pain Code:M25.532 Disposition: discharged Type: home CONSULT CRITICAL CARE TIME Is this a critically ill patient: no Electronic Signatures: Sebastien Del Rio I (CALCULATION REVIEWER-PHYSICAL DIRECTOR) (Signed 12-Sep-2022 22:25) Authored: ED Notes, HPI, PMH, PE, Results/Vital Signs, MDM/ED Course, Procedure, Clinical Impression, Attestation, Chart Review, Scores Last Updated: 12-Sep-2022 22:25 by Sebastien Del Rio I (CALCULATION REVIEWER-PHYSICAL DIRECTOR) (more content not included)... Normal [facility] Risk Screen - Adult Emergenc yon 09-12-2022 Risk Screen - Adult Emergency Preferred Language: Preferred Language: Preferred Language for Discussing Health Care (patient/designee)Tani alfonso Patient Preferred Pharmacy: Patient Preferred Pharmacy Statement: I have reviewed and updated the patient's preferred pharmacy selection for today's visit. Advanced Directives: Advance Directive/DNRno Family Violence Adult: Abuse Screen: Are you or have you been threatened or abused physically, emotionally, or sexually by anyoneno Learning Assessment (Patient): Learning Assessment (Patient): Patient is Able to be Assessed for Learningyes Factors Influencing Readiness to Learnacuteness of illness Factors that Impact Ability to Learnnone Devices/Methods Used to Communicatenone Learning Preferenceswritten material; verbal instruction Cultural Considerationsnone Developmental Considerationsnone Druze Considerationsnone Learning Assessment (Other Learner): Learning Assessment (Other Learner): Other learner availableno Pressure Injury/TB/Substance: Pressure Injury: Do you have a coughno Smoking Statusnever smoker Alcohol Useoccasionally Drug Usedenies Admission Risk Screen: Significant IndicatorsComplete CAGE: CAGE: Is this an injured patient at a Trauma Center [place] [place]/[place] /[place] no Electronic Signatures: Becky Hoyos (RN) (Signed 12-Sep-2022 21:05) Authored: Preferred Language, Patient Preferred Pharmacy, Advanced Directives, Family Violence Adult, Learning Assessment (Patient), Learning Assessment (Other Learner), Pressure Injury/TB/Substance, Pressure Injury, CAGE Last Updated: 12-Sep-2022 21:05 by Becky Hoyos (RN) Located Within [facility] Triage - EDon 09-12-2022 Triage - ED Quick Triage: Are You no Have You Given In The Last 6 Weeksno Are You Currently Breastfeedingno Chart Review: ARRIVAL INFORMATION Mode of Arrival: private vehicle CHIEF COMPLAINT ANAI WEBBER is a Female patient with a chief complaint of wrist pain/injury (pt here for left wrist pain that started last week, states that she did not injure it. Reports that she went to yesterday and they prescribed volteran cream which has not helped, pain has gotten worse. Reports her wrist will 'lock up' occasionally). Triage Date/Time: 12-Sep-2022 21:01 BILL: 4 Pain Rating (0-10): 6 = Moderate Vital Signs: Temperature: 98.4F ( 36.8C) taken noncontact, forehead Blood Pressure: 134/86 Mean: Heart Rate: 98 Respiratory Rate: 20 Pulse Oximetry: 98% on room air, no respiratory support. Height: 5 feet 4.00 inches. 162.5 CM Weight: 242.2 pounds. Calculated 109.9 kg. (stated) Calculated BMI (kg/m2): 41.618 Calculated BSA (m2) 2.23 Uday Coma Scale: Best Eye Response: (E4) spontaneous Best Motor Response: (M6) obeys commands Best Verbal Response: (V5) oriented Uday Score: 15 Last menstrual period: 22-Aug-2022 Patient has homicidal thoughts: no Risk Screens Suicide Risk Screen In the Past Month: Have you wished you were or wished you could go to sleep and not wake up no In the Past Month: Have you had any actual thoughts of killing yourself no In Your Lifetime: Have you ever done anything, started to do anything, or prepared to do anything to end your life no Olsen Fall Scale Screening Has the patient fallen before (or is the patient in the ED as a result of a fall) has not had a fall Does the patient have an impaired gait does not have impaired gait Is the patient cognitively impaired not cognitively impaired Interventions: Olsen Fall Interventions: LOW INTERVENTIONS: *patient oriented to surroundings and call system, * patient/family falls education completed and documented, *patients fall status communicated during bedside handoff, *whiteboard updated, *mode of toileting discussed with patient, *bed in low position with brakes locked, *call light in reach, * non-skid footwear TRAVEL HISTORY Travel History Coronavirus Screening: no exposure or symptoms Travel Exposure History: NO travel to International locations in the past 30 days PAIN Pain Scale Used: RAMIRO Pain Rating (0-10): 6 = Moderate Past Medical History: Past Medical History Reviewedyes Electronic Signatures: Becky Hoyos (JOANIE) (Signed 12-Sep-2022 21:04) Entered: Risk Screens, Pain, Travel History, Chart Review, Scores, Past Medical History Authored: Quick Triage, Risk Screens, Pain, Travel History, Chart Review, Scores, Past Medical History Last Updated: 12-Sep-2022 21:04 by Becky Hoyos (JOANIE) Located Within [facility] WRIST COMPLT MIN 3 VIEWSon 0 09-12-2022 WRIST COMPLT MIN 3 VIEWS Patient Name: ANAI WEBBER STUDY: Left wrist 4 views. INDICATION: pain at base of thumb . COMPARISON: None. ACCESSION NUMBER(S): [id number] ORDERING CLINICIAN: SEBASTIEN DEL RIO FINDINGS: No acute fracture or malalignment. No significant degenerative changes. Soft tissues are within normal limits. IMPRESSION: 1. Unremarkable radiographic evaluation of the left wrist. Electronically signed by: LEONEL MARVIN MD Located Within [facility] Family Medicine Video Visit - Telehealthon 08-27-2022 Family Medicine Video Visit - Telehealth Chief Complaint Medication Refills HPI Staff Anai is a 27 year old female who presents for medication refill. Patient continues on the Escitalopram 10mg and Lamictal 200mg. She states that these work well for her denies any side effects. Patient has not been taking the Trazodone 50 mg tab. Patient was and stopped the medication since August 2021. She states that this did work well for her. No other concerns at the time of visit. History of Present Illness LAWANDAANAI JACINTO is a 25 Years Female who presents for routine follow up and medication refills. Patient is currently on Lamictal, Lexapro for bipolar disorder and states medications are working well with no side effects noted at this time. Denies any issues with paco/anxiety/depression , or thoughts of self-harm at this time. Review of Systems ROS - Provider Constitutional: fever no, chills no, sweats no, weakness no Skin: rash no, lesions no, petechiae no Eye: eye pain no, discharge no, light sensitivity no, eye irritation no, double vision no, blurring no, vision loss no ENMT: ear pain no, ear drainage no, sore throat no, nasal congestion no , nasal drainage no hoarseness no Respiratory: chest discomfort no, shortness of breath no, cough no, orthopnea no, wheezing no Cardiovascular: chest pain no, palpitations no, edema no Gastrointestinal: nausea no, vomiting no, diarrhea no Neurologic: headache no, dizziness no, numbness/tingling no, weakness no Physical Exam General: Well developed, well nourished, in no acute distress Lungs: No respiratory distress, No conversational dyspnea. Normal respiratory rate. No accessory muscle usage. Skin: No rashes, ulcerations, or suspicious lesions to visible skin Mental Status: Alert and oriented x3. Normal mood and affect Assessment/Plan 1. Bipolar disorder (F31.9: Bipolar disorder, unspecified) Continue Lamictal and escitalopram as prescribed. Continue to monitor for any new or worsening symptoms notify provider if these were to present. Otherwise follow-up in 6 months. Ordered: TELEHEALTH Office Visit Level 3 Est 31511 2. Sleep difficulties (G47.9: Sleep disorder, unspecified) Patient to give approximately 12 weeks ago to child we will hold off on trazodone at this time due to erratic sleep schedule with child. Patient will be following up in 6 months and we will revisit issue at that time. Ordered: TELEHEALTH Office Visit Level 3 Est [id number] Orders: escitalopram, 10 mg = 1 tab(s), Oral, Daily, # 90 tab(s), Refills(s) 1, Pharmacy: [facility] #[facility], 163, cm, 11/14/20 14:03:00 EDT, Height/Length Dosing, 115.4, kg, 11/14/20 14:07:00 EDT, Weight Dosing escitalopram, 10 mg = 1 tab(s), Oral, Daily, # 90 tab(s), Refills(s) 1, Pharmacy: [facility] #44, 163, cm, 11/14/20 14:03:00 EDT, Height/Length Dosing, 115.4, kg, 11/14/20 14:07:00 EDT, Weight Dosing lamotrigine, 200 mg = 1 tab(s), Oral, Daily, # 90 tab(s), Refills(s) 1, Pharmacy: [facility] #44, 163, cm, 11/14/20 14:03:00 EDT, Height/Length Dosing, 115.4, kg, 11/14/20 14:07:00 EDT, Weight Dosing lamotrigine, 200 mg = 1 tab(s), Oral, Daily, # 90 tab(s), Refills(s) 1, Pharmacy: [facility] #44, 163, cm, 11/14/20 14:03:00 EDT, Height/Length Dosing, 115.4, kg, 11/14/20 14:07:00 EDT, Weight Dosing This visit was conducted via two-way, real-time interactive video communications by LAURA PEREZ CNP from my office using [employer]. The patient was located at their home, located at [address] [place], [place] [id number], with no one else in attendance. A signed authorization for treatment has been obtained via our standard authorization packet or by verbal consent by the patient or their legal patient relations representative. The patient's identity and location in [place] has been verified by our office staff. If it is determined that the patient should be evaluated in the clinic, the patient will be directed to the appropriate clinic or venue. A limited physical exam will be conducted reviewing those areas of the body visible via telecommunications. Total time spent preparing the chart, conducting the encounter with the patient and family, and time spent documenting, reviewing, and ordering tests was 15 minutes. All records and visits comply with HIPAA standards. Follow-up With When Contact Information LAURA PEREZ CNP [address] [place] [address] Additional Instructions: Problem List/Past Medical History Ongoing Asthma Bipolar disorder BMI 40.0-44.9, adult Excessive weight gain Former smoker Screening for cardiovascular condition Seasonal allergies Sleep difficulties Uses control Historical Anemia Ovarian cyst Procedure/Surgical History D&C - Dilatation and curettage, None. Medications escitalopram 10 mg Tab, 10 mg= 1 tab(s), Oral, Daily, 1 refills Lamictal 200 mg Tab, 200 mg= 1 tab(s), Oral, Daily, 1 refills lamotrigine 200 mg Tab, 200 mg= 1 tab(s), Oral, Daily Brian 1.5/30 oral (more content not included)... Normal [facility] Comment on above: Result Comment: Elec tronically Signed By: LAURA PEREZ CNP\.br\Date and Time Signed: 08/27/22 10:00 EDT Thin prep Papanicolaou smear with manual screeningOrdered By: Dr. Wells on 08-02-2022 Thin prep Papanicolaou smear with manual screening Neisseria or beta-hemolytic Streptococcus isolated. [facility] Gram stain for investigation of transfusion reactionOrdered By: Dr. Wells on 07-30-2022 Microscopic observation Gram stain Nom (Unsp spec) [facility] Absolute lymphocyte countOrd ered By: Dr. Wells on 06-08-2022 Lymphocytes Auto (Unsp spec) [#/Vol] 3.22 10*3/uL 0.83-4.51 [facility] Basophil percentageOrdered B y: Dr. Wells on 06-08-2022 Basophils/100 WBC (Bld) 0.4 % 0-1 [facility] Eosinophils/100 WBC (Bld) 2.0 % 0-5 [facility] Neutrophils (Bld) [#/Vol] 9.1 10*3/uL 2.0-7.7 [facility] Neutrophils/100 WBC (Bld) 66.9 % 47-70 [facility] WBC (Bld) [#/Vol] 13.5 10*3/uL 4.4-11.0 [facility] Blood erythrocytes count (nu mber/volume)Ordered By: Dr. Wells on 06-08-2022 RBC (Bld) [#/Vol] 4.77 10*6/uL 4.2-5.4 [facility] Blood hemoglobin measurement (mass/volume)Ordered By: Dr. Wells on 06-08-2022 Hemoglobin (Bld) [Mass/Vol] 12.7 g/dL 12.0-15.0 [facility] Blood lymphocytes/100 leukoc ytesOrdered By: Dr. Wells on 06-08-2022 Lymphocytes/100 WBC (Bld) 23.8 % 19-41 [facility] Blood monocytes/100 leukocyt esOrdered By: Dr. Wells on 06-08-2022 Monocytes/100 WBC (Bld) 6.4 % 0-10 [facility] Blood platelet mean volumeOr dered By: Dr. Wells on 06-08-2022 Platelet mean volume (Bld) [Entitic vol] 11.0 fL 6.2-12.0 [facility] Determination of erythrocyte mean corpuscular volume (MCV)Ordered By: Dr. Wells on 06-08-2022 MCV (RBC) [Entitic vol] 84.9 fL 81-99 [facility] Hematocrit Auto (Bld) [Volum e fraction]Ordered By: Dr. Wells on 06-08-2022 Hematocrit (Bld) [Volume fraction] 40.5 % 37-47 [facility] - Hematology and Cell countsOrdered By: Dr. Wells on 06-08-2022 Erythrocyte distribution width (RBC) [Entitic vol] 49.3 fL 35.1-43.9 [facility] Erythrocyte distribution width (RBC) [Ratio] 16.0 % 11.6-14.6 [facility] Immature granulocytes/100 WBC (Bld) 0.500 % 0.0-0.9 [facility] Comment on above: IG% - Immature Granu locytes (promyelocytes, myelocytes and metamyelocytes) > 1% indicates that a LEFT SHIFT is Present. MCH (RBC) [Entitic mass] 26.6 pg 27.0-32.0 [facility] Nucleated RBC/100 WBC (Bld) [Ratio] 0 % 0-5 [facility] MCHC Auto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 See Below [facility] Work Phone: Comment on above: Reference Range: 4.0 0 - 5.20 WBC (Bld) [#/Vol] 13.6 10*3/uL above high threshold 4.4 - 11.3 [employer] Work Phone: Complete Blood Count + Differential 0.00 {x10E9/L} See Below [employer] Work Phone: Comment on above: Reference Range: 0.0 0 - 0.10 Complete Blood Count + Differential 0.30 {x10E9/L} See Below [employer] Work Phone: Comment on above: Reference Range: 0.0 0 - 0.70 Complete Blood Count + Differential 0.90 {x10E9/L} See Below [place] [address] [email or web address] Work Phone: Comment on above: Reference Range: 0.1 0 - 1.00 Complete Blood Count + Differential 3.30 {x10E9/L} See Below [place] [address] [place] Work Phone: Comment on above: Reference Range: 1.2 0 - 4.80 Complete Blood Count + Differential 9.00 {x10E9/L} above high threshold See Below [place] [address] [place] Work Phone: Comment on above: Reference Range: 1.2 0 - 7.70 Percent differential counts (%) should be interpreted in the context of the absolute cell counts (cells/L). Complete Blood Count + Differential 2.4 % 0.0 - 6.0 [place] [address] [email or web address] Work Phone: HEPATITIS B SURFACE AGon Lab Specimen Source Normal [facility] Comment on above: Performed By: #### H BSAG #### [facility] [address] [place] [address] Performed By: #### H IV #### [facility] [address] [place] [address] HIV 1/2 ANTIGEN/ANTIBODY SCR EEN WITH REFLEX TO CONFIRMATIONon 11-21-2021 HIV 1+2 Ab Qn (S) Non-Reactive See Below [address] Work Phone: Comment on above: SOURCE: Reference Ra nge: NONREACTIVE HIV Ag/Ab screen is performed using the Siemens [employer] HIV Ag/Ab Combo assay which detects the presence of HIV p24 antigen as well as antibodies to HIV-1 (Group M and O) and HIV-2..No laboratory evidence of HIV infection. If acute HIV infection is suspected, consider testing for HIV RNA by PCR (viral load). Hepatitis B Surface Antigeno n 11-21-2021 Hepatitis B Surface Antigen Non-Reactive See Below [place] [address] [email or web address] Work Phone: Comment on above: SOURCE: Reference Ra nge: NONREACTIVE Biotin interference may cause falsely decreased results. Patients taking a Biotin dose of up to 5 mg/day should refrain from taking Biotin for 24 hours before sample collection. Providers may contact their local laboratory for further information. IO HCG, Urine Test on 11-21-2021 HCG ( test) Ql (U) Positive [employer] Work Phone: LMPon 11-21-2021 Last menstrual period start date [id number] [employer] Work Phone: Laboratory - Blood bankon ABO group Nom (Bld) O [facility] [employer] Work Phone: Blood group antibody screen Ql Negative [employer] Work Phone: Rh immune globulin screen (Bld) [Interp] Positive [employer] Work Phone: Laboratory - Chemistry and C hemistry - challengeon 11-21-2021 TSH Qn 1.46 m[IU]/L See Below [employer] Work Phone: Comment on above: Reference Range: 0.4 4 - 3.98 TSH testing is performed using different testing methodology at [facility] than at other [facility]. Direct result comparisons should only be made within the same method. ACOUSTIC ENGINEER - Office Visiton 10-24 ACOUSTIC ENGINEER - Office Visit Diagnoses/Problems Assessed 8 weeks gestation of (V22.2) (Z3A.08) Orders Complete Blood Count + Differential; Status:Active; Requested for:21Nov2021; Cult, Urine; Status:Active; Requested for:21Nov2021; Hepatitis B Surface Antigen; Status:Active; Requested for:21Nov2021; HIV 1/2 ANTIGEN/ANTIBODY SCREEN WITH REFLEX TO CONFIRMATION; Status:Active; Requested for:21Nov2021; Rubella IgG Antibody; Status:Active; Requested for:21Nov2021; SYPHILIS SCREENING WITH REFLEX; Status:Active; Requested for:21Nov2021; TSH WITH REFLEX TO FREE T4 IF ABNORMAL; Status:Active; Requested for:[id number]; Type and Screen; Status:Active; Requested for:[id number]; Provider Impressions Patient is a 26-year-old 2 para 0 who comes in for confirmation of was confirmed to be viable 8 weeks and 3 days will start care in 4 weeks. Patient with recent increase in hair loss and fatigue we will check TFTs and order labs now Chief Complaint New patient here today for amenorrhea. She has concerns of hair loss that is filling the drain after every shower, nausea and vomiting, some breast tenderness and no cramping or bleeding. She has a chemical in 2011. LMP: 09/23/2021 History of Present IllnessPatient is a 26-year-old who comes in for confirmation of . Patient's last menstrual period was September 23, 2021. She reports that she found out she was late September. Patient reports nausea and occasional vomiting but overall has been keeping food down pretty well and does not feel the need to start anything for antinausea. Patient reports that she is on Lamictal and on an SSRI for bipolar. Patient reports recently she has been experiencing significant hair loss and excessive fatigue Active Problems Problems Acute bronchitis (466.0) (J20.9) Acute sinusitis (461.9) (J01.90) History of candidiasis (V12.09) (Z86.19) Past Medical History Problems History of miscarriage (V13.29) (Z87.59) 02/2012 History of Menstruation AGE 9 Surgical History Problems History of Hysteroscopy 2013 Family History Mother Family history of migraine headaches (V17.2) (Z82.0) Sister Family history of Irregular heartbeat Grandmother Family history of cardiac disorder (V17.49) (Z82.49) Family history of diabetes mellitus (V18.0) (Z83.3) Family history of hypertension (V17.49) (Z82.49) Family history of myocardial infarction (V17.3) (Z82.49) Social History Problems Does not use illicit drugs (V49.89) (Z78.9) Former smoker (V15.82) (Z87.891) Rarely consumes alcohol (V49.89) (Z78.9) Sexually active Allergies Medication Penicillins Recorded By: Ivania Culver; 12/11/2016 11:01:52 AM Tdap Recorded By: Shweta Walker; 11/21/2021 1:23:12 PM Current Meds Medication NameInstruction busPIRone HCl - 10 MG Oral Tablet Escitalopram Oxalate 20 MG Oral Tablet lamoTRIgine 100 MG Oral Tablet lamoTRIgine 25 MG Oral Tablet Vitamins TABS Zyrtec TABS Vitals Vital Signs Recorded: 21Nov2021 01:23PM [id number] Height5 ft 4 in Uvcmaw472 lb BMI Xjxoallkwv01.23 kg/m2 BSA Calculated2.14 [id number] Physical Exam Constitutional: Healthy-appearing in no physical distress. Head and Face: No obvious lesions. Pulmonary: Breathing comfortably. Abdomen: Soft nontender. External genitalia revealed no lesions Musculoskeletal: Good mobility of all extremities. Psychiatric: Appropriate mood and affect. Transvaginal ultrasound revealed a viable that was 7 weeks and 6 days consistent with her last menstrual period giving her a final due date of June 30, 2022 heart tones were 176 Signatures Electronically signed by : Kelly Madera DO; Nov 21 2021 1:41PM EST (Author) Normal [facility] Rubella IgG Antibodyon 11-21 Rubella virus IgG IA Ql Negative [employer] Work Phone: Comment on above: INTERPRETATIVE COMME NT NEGATIVE: No IgG antibodies specific to Rubella detected. It is likely that the patient has not had a previous exposure to Rubella through infection or vaccination. Alternatively, the patient may have been exposed to Rubella but a failure to respond may indicate immunodeficiency. EQUIVOCAL:Equivocal results; obtain additional sample for retesting. POSITIVE: IgG antibody to Rubella detected. This may indicate that the patient was exposed to Rubella through infection or vaccination.The interpretation of serological tests should take into accountthe immunological status of the patient. Test results forpatients, including immunocompromised patients, neonates, andpediatric patients, reflect their capacity to respondimmunologically to the virus as well as their exposure to thepathogen. Patients treated with IVIG may demonstrate alteredresults in serological assays. SYPHILIS SCREENING WITH REFL EXon 11-21-2021 T. pallidum IgG+IgM IA Ql (S) Non-Reactive See Below [employer] Work Phone: Comment on above: Reference Range: NON REACTIVENo significant level of Treponema pallidum antibody detected. Repeat testing in 2 to 4 weeks may be considered if early infection or incubating syphilis infection is suspected. TSH WITH REFLEX TO FREE T4 I F ABNORMALon 11-21-2021 TSH Qn 1.46 m[IU]/L Normal 0.44 - 3.98 [facility] Comment on above: Result Comment: TSH testing is performed using different testing methodology at [facility] than at other [facility]. Direct result comparisons should only be made within the same method. Performed By: #### T HYDS #### [place] [address] [place] [address] ANES Lucho 12-21-2018 ANES POST HNO ID: [id number] Author: Mayank Hall Service: Anesthesiology Author Type: Anesthesiologist Type: Anesthesia PostOp Filed: 12/21/2018 10:25 AM Note Text: POST ANESTHESIA EVALUATION NOTE SERVICE DATE: 12/21/2018 SERVICE TIME: 10:24 AM : 1995 Vitals: 12/21/18 0652 12/21/18 0835 12/21/18 0915 Temp: 36.2 ?C (97.2 ?F) 36.8 ?C (98.2 ?F) 36.8 ?C (98.2 ?F) 12/21/18 0652 12/21/18 0835 12/21/18 0845 12/21/18 0900 BP: 140/75 123/72 113/56 111/58 12/21/18 0835 12/21/18 0845 12/21/18 0900 12/21/18 0915 Pulse: 92 86 85 83 12/21/18 0835 12/21/18 0845 12/21/18 0900 12/21/18 0915 Resp: 16 16 16 19 12/21/18 0835 12/21/18 0845 12/21/18 0900 12/21/18 0915 SpO2: 93% 100% 98% 98% Validated Vital Signs: Yes POST ANES STATUS: No apparent anesthetic complications. The patient is appropriately hydrated with stable respiratory and cardiovascular status. Patient has safe and adequate airway control. The patient has appropriate pain relief and no significant post operative nausea or vomiting. The patient has achieved baseline mental status. Intra-Operative Events: No Significant Anesthesia Events Further assessment by Anesthesia Service: None Other Remarks: SIGNATURE: Mayank Hall MD PATIENT NAME: Anai Webber DATE: December 21, 2018 TIME: 10:24 AM PAGER/CONTACT #: [phone] [facility] ANES POST HNO ID: [id number] Author: Inocencia Fall Service: Anesthesiology Author Type: Anesthesiologist Type: Anesthesia PostOp Filed: 12/21/2018 10:37 AM Note Text: POST ANESTHESIA EVALUATION NOTE SERVICE DATE: 12/21/2018 SERVICE TIME: 10:37 AM : 1995 Vitals: 12/21/18 0652 12/21/18 0835 12/21/18 0915 Temp: 36.2 ?C (97.2 ?F) 36.8 ?C (98.2 ?F) 36.8 ?C (98.2 ?F) 12/21/18 0652 12/21/18 0835 12/21/18 0845 12/21/18 0900 BP: 140/75 123/72 113/56 111/58 12/21/18 0835 12/21/18 0845 12/21/18 0900 12/21/18 0915 Pulse: 92 86 85 83 12/21/18 0835 12/21/18 0845 12/21/18 0900 12/21/18 0915 Resp: 16 16 16 19 12/21/18 0835 12/21/18 0845 12/21/18 0900 12/21/18 0915 SpO2: 93% 100% 98% 98% Validated Vital Signs: Yes POST ANES STATUS: No apparent anesthetic complications. The patient is appropriately hydrated with stable respiratory and cardiovascular status. Patient has safe and adequate airway control. The patient has appropriate pain relief and no significant post operative nausea or vomiting. The patient has achieved baseline mental status. Intra-Operative Events: No Significant Anesthesia Events Further assessment by Anesthesia Service: None Other Remarks: SIGNATURE: Inocencia Fall MD PATIENT NAME: Anai Webber DATE: December 21, 2018 TIME: 10:36 AM PAGER/CONTACT #: [phone] [facility] ANES PREOPon 12-21-2018 ANES PREOP HNO ID: [id number] Author: Inocencia Fall Service: Anesthesiology Author Type: Anesthesiologist Type: Anesthesia PreOp Filed: 12/21/2018 7:20 AM Note Text: ANESTHESIOLOGY DAY OF SURGERY NOTE SERVICE DATE: 12/21/2018 SERVICE TIME: 7:17 AM : 1995 Procedure(s) (LRB): EXCISION VERRUCA FOOT (Left) Surgeon(s): Sparkle Dave Estimated body mass index is 38.79 kg/m? as calculated from the following: Height as of this encounter: 162.6 cm (5' 4). Weight as of this encounter: 102.5 kg (226 lb). Most recent hematocrit and potassium results: Hematocrit 41.8 12/09/2018 Potassium 3.9 12/09/2018 ANES DOS/PREOP NOTE: Vitals: 12/21/18 0652 BP: 140/75 Pulse: 92 Resp: 16 Temp: 36.2 ?C (97.2 ?F) SpO2: 98% Weight: 102.5 kg (226 lb) Height: 162.6 cm (5' 4) ACTIVE PROBLEM LIST Plantar Wart of Left Foot Childhood Asthma Without Complication Former Smoker Gerd (Gastroesophageal Reflux Disease) Anxiety and Depression Class 2 Obesity Due to Excess Calories Without Serious Comorbidity With Body Mass Index (Bmi) of 38.0 to 38.9 in Adult Bipolar Disorder (Hcc) Morbid Obesity (Hcc) PAST MEDICAL HISTORY Diagnosis Date - Anxiety and depression - Bipolar disorder (HCC) - Childhood asthma - Endometriosis LITIGATION COUNSEL: [facility] - GERD (gastroesophageal reflux disease) - Iron deficiency anemia - Morbid obesity (HCC) - Seasonal allergies - Verruca PAST SURGICAL HISTORY Procedure Laterality Date - PAST SURGICAL HISTORY OF 2012 hysteroscopy, dnc, laproscopy FAMILY HISTORY Problem Relation Age of Onset - Heart Sister rapid heartbeat - Heart disease Maternal Grandmother - Diabetes Maternal Grandmother - Detached Retina Maternal Grandmother - Hypertension Maternal Grandmother - Heart disease Maternal Grandfather - other (spina bifida) Sister - No Known Problems Sister Social History: Social History Tobacco Use - Smoking status: Former Smoker Packs/day: 0.25 Years: 7.00 Pack years: 1.75 Types: Cigarettes Last attempt to quit: 04/09/2018 Years since quittin.7 - Smokeless tobacco: Never Used Substance Use Topics - Alcohol use: Yes Comment: rarely - Drug use: Not Currently No current facility-administered medications on file prior to encounter. Current Outpatient Medications on File Prior to Encounter: Cetirizine (ZYRTEC) 10 mg cap Take 1 capsule by mouth once daily. ., 1.5-30 mg-mcg tab Multivitamin capsule Take 1 capsule by mouth once daily. MELATONIN ORAL Take 5 mg by mouth once daily. Current Facility-Administered Medications Medication Dose Route Frequency Provider Last Rate Last Dose - lidocaine 10 mg/mL (1 %) 1-2 mg injection (XYLOCAINE) 0.1-0.2 mL INTRADERMAL PRN Sparkle Testrake - lactated ringers infusion 5-30 mL/hr INTRAVENOUS CONTINUOUS Sparkle Testrake 30 mL/hr at 12/21/18 0700 30 mL/hr at 12/21/18 0700 - clindamycin iv piggyback 900 mg in D5W 50 mL (CLEOCIN) 900 mg INTRAVENOUS Pre-Op Once Sparkle Testrake Allergies: ALLERGIES Allergen Reactions - Penicillins Rash DOS EXAM: Adequate NPO Status: Yes Anesthetic Risks, Benefits, Alternatives, Personnel and Consent Discussed: Yes Patient agrees to proceed: Yes Previous Anesthesia: Had a broken tooth with intubation Airway Assessment: MP 2; Neck ROM: Full ROM without neurologic symptoms; Airway Evaluation: No significant abnormalities Symptoms of Sleep Apnea: BMI > 35 Dentition: Teeth intact Additional Physical Exam: Lungs: Patient health status unchanged since recent history and physical. See history and physical for exam findings. Cardiac: Patient health status unchanged since recent history and physical. See history and physical for exam findings. Additional Pertinent Findings: N/A Blood Products: Not anticipated for this procedure Anesthetic Plan: General Anesthetic Monitoring: Standard ASA Monitors Pain Management Plan: Parenteral or Oral ASA Class: 2 Other Medical Problems: None Chronic Beta Harsha medication administered within 24 hours: N/A I have interviewed and examined the patient. I have reviewed the medical record and/or the pre-anesthesia evaluation, pertinent labs, and test results. Significant changes in the patient's condition since the History and Physical, not otherwise documented in primary service progress notes: No This contains updated information obtained within 48 hours of Surgery/Procedure. SIGNATURE: Inocencia Fall MD PATIENT NAME: Anai Webber DATE: December 21, 2018 TIME: 7:17 AM CSN: [id number] [facility] BRIEF OP NOTon 12-21-2018 BRIEF OP NOT HNO ID: [id number] Author: Jessica Reardon DPM Service: Podiatry Author Type: Resident Type: Brief Op Note Filed: 12/21/2018 8:28 AM Note Text: -------- Attestation signed by Sparkle Dave at 12/22/2018 9:35 PM I was present and agree with resident brief op note Sparkle Dave DPM -------- BRIEF OP NOTE LOG ID: [id number] Surgery/Procedure Date: 12/21/2018 Incision/Procedure Start Time: 7:59 AM Incision Close/Procedure End Time: 8:22 AM Surgeon(s)/Proceduralist (s) and [employer] Temperer(s): Surgeon(s) and Role: * Sparkle Dave - Primary * Jessica Reardon DPM - Resident - Assisting Procedure(s): Verruca excision Left foot Anesthesia: General Findings: hyperkeratotic skin lesion with diverging skin lines measuring 1.0 x 1.2cm, consistent with verruca plantaris Estimated Blood Loss: 2 mL Specimens: Left foot plantar wart sent for pathology Complications: None Pre-Op/Pre-Procedure Diagnosis: Verruca Left foot Post-Op/Post-Procedure Diagnosis: SAME SIGNATURE: Jessica Reardon DPM PGY2 PATIENT NAME: Anai Webber DATE: December 21, 2018 TIME: 8:25 AM PAGER/CONTACT #: [facility] HISTORY PHYSICALon 9 HISTORY PHYSICAL HNO ID: [id number] Author: Sparkle Dave Service: Podiatry Author Type: Physician Type: HANDP Filed: 12/21/2018 8:23 AM Note Text: HISTORY AND PHYSICAL EXAMINATION SERVICE DATE: 12/21/2018 SERVICE TIME: 7:02 PRIMARY CARE PHYSICIAN: Hamzah Angela MD Subjective CHIEF COMPLAINT: Painful wart, left foot HPI: This is a 23 year old female who presents with wart of left foot. Patient has tried conservative care including home debridement and topical medication vs debridement by two podiatrists and salicyclic acid application. She has tried over 8 weeks of debridement without success. Patient is interested in laser excision. FUNCTIONAL STATUS: Independent PAST MEDICAL HISTORY Diagnosis Date - Anxiety and depression - Bipolar disorder (HCC) - Childhood asthma - Endometriosis LITIGATION COUNSEL: [facility] - GERD (gastroesophageal reflux disease) - Iron deficiency anemia - Morbid obesity (HCC) - Seasonal allergies - Verruca PAST SURGICAL HISTORY Procedure Laterality Date - PAST SURGICAL HISTORY OF 2012 hysteroscopy, dnc, laproscopy FAMILY HISTORY Problem Relation Age of Onset - Heart Sister rapid heartbeat - Heart disease Maternal Grandmother - Diabetes Maternal Grandmother - Detached Retina Maternal Grandmother - Hypertension Maternal Grandmother - Heart disease Maternal Grandfather - other (spina bifida) Sister - No Known Problems Sister Social History Tobacco Use - Smoking status: Former Smoker Packs/day: 0.25 Years: 7.00 Pack years: 1.75 Types: Cigarettes Last attempt to quit: 04/09/2018 Years since quittin.7 - Smokeless tobacco: Never Used Substance Use Topics - Alcohol use: Yes Comment: rarely - Drug use: Not Currently Medications Prior to Admission: lamoTRIgine (LAMICTAL STARTER, FLAVIA, KRZYSZTOF) 25 mg (42) -100 mg (7) DsPk Take 25 mg by mouth once daily for 14 days, THEN 50 mg once daily for 14 days, THEN 100 mg once daily for 7 days. Disp: 1 Package Rfl: 0 12/21/2018 at 0530 lamoTRIgine (LAMICTAL) 200 mg tablet Take 1 tablet by mouth once daily. Disp: 30 tablet Rfl: 1 escitalopram oxalate (LEXAPRO) 10 mg tablet Take 1 tablet by mouth once daily. Disp: 30 tablet Rfl: 2 12/20/2018 at 0530 hydrOXYzine pamoate (VISTARIL) 25 mg capsule Take 1 capsule by mouth twice daily as needed for Anxiety. Disp: 20 capsule Rfl: 0 1 YEAR AGO Cetirizine (ZYRTEC) 10 mg cap Take 1 capsule by mouth once daily. Disp: Rfl: 12/20/2018 at 2100 JUNEL 1.5/30, 21, 1.5-30 mg-mcg tab Disp: Rfl: 12/20/2018 at 2100 Multivitamin capsule Take 1 capsule by mouth once daily. Disp: Rfl: Past Week at Unknown time MELATONIN ORAL Take 5 mg by mouth once daily. Disp: Rfl: 12/20/2018 at 2100 ALLERGIES Allergen Reactions - Penicillins Rash COMPLETE REVIEW OF SYSTEMS: RESPIRATORY: Negative for cough, hemoptysis, wheezing, COPD, dyspnea or shortness of breath CARDIOVASCULAR: Negative for chest pain, leg swelling, hypertension, CHF or palpitations SKIN: See HPI Objective PHYSICAL EXAM: Physical Exam Performed: Patient is alert and orientated x 3. She does not appear in any distress Resp: Lungs clean and symetrical . No wheezing noted Card: RRR. Vascular: DP and PT pulses palpable to b/l lower extremity. cft is less than 5 seconds. Skin temperature is warm to warm. Derm: there is wart present to left heel. No other warts noted. BP 140/75 Pulse 92 Temp 97.2 Resp 16 Ht 5' 4 (1.63m) Wt 226 lb (102.5kg) SpO2 98% BMI 38.77 kg/(m2). O2 Therapy: Room Air DATA: Diagnostic tests reviewed for today's visit: Assessment/Plan Plantar wart: left foot. Patient has wart to left foot that has not improved with conservative care. She is now interested in laser excision. I have discussed risks of procedure not limited to infection, pain, swelling, bleeding, painful scarring, recurrent wart, failure to eliminate wart, bone infection, slow wound healing. She has been offered continued conservative care vs dermatology referrral. Patient consents for laser excision. Due to location of wart, I am going to have her remain nwb on left heel until wart wound heals. I discussed need to keep wound clean until scab forms. Patient understands all risks and she consents to procedure Medication and Non-Pharmacologic VTE Prophylaxis/Anticoagulan ts 12/21/18 0700 pneumatic compression stockings (tx,oh) SIGNATURE: Sparkle Dave DPM PATIENT NAME: Anai Webber DATE: December 21, 2018 TIME: 7:02 AM PAGER/CONTACT #: [phone] [facility] OPERATIVE NOon 12-21-2018 OPERATIVE NO HNO ID: [id number] Author: Sparkle Daev Service: Podiatry Author Type: Physician Type: Operative Report Filed: 12/22/2018 9:32 PM Note Text: OPERATIVE/PROCEDURE REPORT LOG ID: [id number] SURGERY/PROCEDURE DATE: 12/21/2018 INCISION/PROCEDURE START TIME: 7:59 AM INCISION CLOSE/PROCEDURE END TIME: 8:22 AM SURGEON(S)/PROCEDURALIST (S) AND NATIONAL SALES MANAGER(S): Surgeon(s) and Role: * Sparkle Dave - Primary * Jessica Reardon DPM - Resident - Assisting Physician [employer] Temperer: Yg Ernandez (Pa) (Jeremi) Barrie SURGERY/PROCEDURE(S): co2 laser of benign skin lesion, left foot ANESTHESIA: General SURGERY/PROCEDURE DETAILS: patient is a 23 year old female who has chronic skin lesion to left heel. This has been present for long duration. She has seen a scrap wheeler who was treating the lesion weekly with debridement and salicyclic acid. Patient states she was seeing the scrap wheeler weekly for over 8 weeks but no improvement was noted. She then saw her pcp who she states tried cryotherapy. No improvement was made so she was referred to me. I started treating with debridement and tca. Unfortunately, the lesion is not improving and is causing her pain. I discussed referral to dermatology vs laser excision of wart. Patient would like to pursue laser. I discussed risks of procedure not limited to infection, pain, swelling, bleeding, creation of deep wound resulting in bone infection and/or amputation. I informed patient that following procedure, I would recommend she use crutches to keep weight from heel. Any weightbearing can result in complications noted above. She understands all risks. She understands post-op care to include daily wound care. She consents to procedure. Patient was transferred to operating room and placed under general anesthesia. She was carefully placed in prone position. She was not given any antibiotic as she states she has intolerance to antibiotics. The left lower extremity was prepped and draped in the usual aseptic technique. Attention was then directed to the left ankle. A tourniquet which was applied was inflated. Attention was directed to the left heel. There was a wart to left posterior plantar heel that was circrumscribed with laser set at 6 renee. The lesion was then removed with curette and the specimen was sent for pathology confirmation. The lase was used to achieve debridement to level of basement membrane. Cautery was achieved with laser. The tourniquet was deflated following removal of wart and hemostasis was achieved. A post-op dressing was applied consisting of adaptic, bacitracin, 4x4 guaze, terri and nabil. Patient was awakened and found to be in stable condition. PRE-OP/PRE-PROCEDURE DIAGNOSIS: plantar wart, left heel POST-OP/POST-PROCEDURE DIAGNOSIS: SAME ESTIMATED BLOOD LOSS: 1 ml mls SPECIMENS: wart IMPLANTABLE DEVICES: None DRAINS: None COMPLICATIONS: None PARTICIPATION IN SURGERY/PROCEDURE: I/primary surgeon/proceduralist performed the procedure with assistance. SIGNATURE: Sparkle Dave DPM PATIENT NAME: Anai Webber DATE: December 21, 2018 TIME: 11:05 AM PAGER/CONTACT #: [facility] PLAN OF CAREon 12-21-2018 PLAN OF CARE HNO ID: [id number] Author: Abbey Dotson (HomeSav) Service: Pharmacy Author Type: ? Type: Plan of Care Filed: 12/21/2018 9:38 AM Note Text: FINANCIAL RISK MANAGER BEDSIDE DELIVERY SURVEY 1. Patient to use [facility] Bedside Delivery - YES Insurance Information as follows: 2. Insurance card on file - YES 3. Credit card for payment - YES PHARMACY BEDSIDE DELIVERY SERVICE Patient Name: Anai Webber The marked outpatient medications were Filled at: [place] and delivered to the patient's bedside to pharmacy picker operator Medication List START taking these medications traMADol 50 mg tablet Commonly known as: ULTRAM Take 1 tablet by mouth every 8 hours as needed (Every 8 hours as needed for pain for up to 4 days) for up to 4 days. X CONTINUE taking these medications escitalopram oxalate 10 mg tablet Commonly known as: LEXAPRO Take 1 tablet by mouth once daily. hydrOXYzine pamoate 25 mg capsule Commonly known as: VISTARIL Take 1 capsule by mouth twice daily as needed for Anxiety. (21) 1.5-30 mg-mcg Tab Generic drug: Norethindrone Acet-Ethinyl Est * lamoTRIgine 25 mg (42) -100 mg (7) Dspk Commonly known as: LaMICtal Starter ([place]) Kit Take 25 mg by mouth once daily for 14 days, THEN 50 mg once daily for 14 days, THEN 100 mg once daily for 7 days. Start taking on: 12/08/2018 * lamoTRIgine 200 mg tablet Commonly known as: LaMICtal Take 1 tablet by mouth once daily. MELATONIN ORAL Multivitamin capsule ZyrTEC 10 mg Cap Generic drug: Cetirizine * This list has 2 medication(s) that are the same as other medications prescribed for you. Read the directions carefully, and ask your doctor or other care provider to review them with you. You might also be taking other medications not listed above. If you have questions about any of your other medications, talk to the person who prescribed them or your Primary Care Provider. Abbey Dotson (HomeSav) PAGER: [phone] December 21, 2018 9:37 AM [facility] PROGRESSon 12-21-2018 PROGRESS HNO ID: [id number] Author: Jessica Reardon DPM Service: Podiatry Author Type: Resident Type: Progress Notes Filed: 12/21/2018 8:28 AM Note Text: -------- Attestation signed by Sparkle Dave at 12/22/2018 9:35 PM I was present and personally evaluated patient. She has failed conservative care for wart. Plan is for laser excision of wart Sparkle Dave DPM -------- PODIATRIC PRE-OPERATIVE NOTE SERVICE DATE: 12/21/2018 SERVICE TIME: 6:57 AM DIAGNOSIS: Verruca L foot PROCEDURE(S): Verruca excision L foot Consent on chart: Yes LABS: CBC: WBC 11.15 12/09/2018 Hemoglobin 13.0 12/09/2018 Hematocrit 41.8 12/09/2018 Platelet Count 314 12/09/2018 CMP: Sodium 143 12/09/2018 Potassium 3.9 12/09/2018 BUN 11 12/09/2018 Creatinine 0.55 12/09/2018 Glucose 81 12/09/2018 COAGS: No results found for this basename: aptt,inr URINALYSIS: No results found for this basename: uket,nitrites,spgr,uprot ,leukest,uwbc,ubacteria Type AND screen: N/A Medical Clearance: Yes CXR/EKG: N/A Medications/Preop Antibiotics: None ALLERGIES Allergen Reactions - Penicillins Rash Surgical site identified: Yes NPO: Yes IV Fluids: Yes Risks and benefits, complications, treatment options, expected outcome and rehabilitation explained, patient understands. All questions were entertained and answered. Patient wishes to proceed with above procedure(s). SIGNATURE: Jessica Reardon DPM PGY2 PATIENT NAME: Anai Webber DATE: December 21, 2018 TIME: 6:57 AM PAGER: [facility] PT EDon 12-21-2018 PT ED HNO ID: [id number] Author: Matthew Anthony RN Service: Nursing Author Type: Registered Nurse Type: Patient Education Filed: 12/21/2018 9:16 AM Note Text: POST OP LEARNING RESPONSE INSTRUCTION PROVIDED TO: Patient and family member METHOD OF INSTRUCTION: Written instruction - handouts Verbal instruction PATIENT / FAMILY RESPONSE: Verbalizes understanding of: POST-OPERATIVE INSTRUCTIONS-Correct actions to take to reduce postoperative complications FOLLOW-UP PLAN: Patient instructed to call with any further issues SUPPLEMENTAL MATERIAL: None REFERRAL (RECOMMENDATION): None Electronically Signed By: Matthew Anthony RN In Department: [facility] PT ED HNO ID: [id number] Author: Matthew Anthony RN Service: Nursing Author Type: Registered Nurse Type: Patient Education Filed: 12/21/2018 7:05 AM Note Text: PRE OP LEARNING ASSESSMENT PROCEDURE/SURGERY: SURGERY: READINESS TO LEARN COGNITIVE ABILITY: Alert and oriented MOTIVATION TO LEARN: Interested FAMILY SUPPORT: High - Very involved in pt care PATIENT LEARNS BEST BY: Verbal Instruction FACTORS AFFECTING LEARNING: None PHYSICAL LIMITATIONS AFFECTING LEARNING: None Electronically Signed By: Matthew Anthony RN In Department: [facility] Normal [facility] SURGICAL PATHOLOGYon 019 SURGICAL PATHOLOGY Specimen originated from [facility] Specimen #: [id number] Submitting Physician: SPARKLE DAVE DPM __ FINAL DIAGNOSIS A. Skin, left foot, excision - Verruca plantaris. MP/RS/rw 12/23/2018 Dipika Cruz M.D. (Electronic Signature) SPECIMEN SUBMITTED A: SKIN, LEFT FOOT, SHAVE BIOPSY CLINICAL DATA CO2 LASER PLANT WART, PLANTAR WART, LMP: NA GROSS DESCRIPTION A. Received in formalin is a 1.9 x 1.5 x 0.4 cm shave of skin. On the skin surface is a 1.9 cm, murphy-brown slightly elevated area. The specimen is trisected. Totally submitted in formalin in one cassette. Gross examination performed at [facility], [address] [place] [address] 12/21/2018 5:09:51 PM Date of Report: 12/23/2018 Date of Procedure: 12/21/2018 Date of Receipt: 12/21/2018 Submitted by: SPARKLE DAVE DPM Location: [facility] Diagnostic interpretation performed at [place] [address]. CLIA Number: [id number] [facility] NURSING PROGon 12-15-2018 NURSING PROG HNO ID: [id number] Author: Gwendolyn (Rn) JOANIE Tran Service: ? Author Type: Registered Nurse Type: Nursing Progress Note Filed: 12/15/2018 12:36 PM Note Text: PACC Nurse Progress Note History AND Physical: PACC Visit Date: 12/07/18 Original HANDP Date: N/A ED visit Date: N/A Outside HANDP Scanned Date: N/A Labs Within Last 6 Months: CBC:BMP/CMP: Date 12/09/18 Imaging Within Last 12 Months: N/A Cardiac Testing: N/A Last Menstrual Period: LMP Date: unknown Postmenopausal >1yr: No, S/P Hysterectomy: No BMI Percentile (PEDS): N/A Risk Assessment: N/A Anesthesia Review: N/A Narrative: N/A Pre-op Considerations: N/A Chart Check: COMPLETED Gwendolyn Tran RN December 15, 2018 12:34 PM [facility] HOSPon 12-03-2018 HOSP Patient:Anai Webber MRN: Height:5' 3.386(1.61 m) Weight:229 lb (103.874 kg) Outpatient Medications as of 12/21/18: lamoTRIgine (LAMICTAL STARTER, ORANGE, KIT) 25 mg (42) -100 mg (7) DsPk lamoTRIgine (LAMICTAL) 200 mg tablet escitalopram oxalate (LEXAPRO) 10 mg tablet hydrOXYzine pamoate (VISTARIL) 25 mg capsule Cetirizine (ZYRTEC) 10 mg cap JUNEL 1.5/30, 21, 1.5-30 mg-mcg tab Multivitamin capsule MELATONIN ORAL Admission/Clinic Administered Medications as of 12/21/18: lidocaine 10 mg/mL (1 %) 1-2 mg injection (XYLOCAINE) lactated ringers infusion clindamycin iv piggyback 900 mg in D5W 50 mL (CLEOCIN) Problem List: Plantar wart of left foot [B07.0] Childhood asthma without complication [J45.909] Former smoker [Z87.891] GERD (gastroesophageal reflux disease) [K21.9] Anxiety and depression [F41.9, F32.9] Class 2 obesity due to excess calories without serious comorbidity with body mass index (BMI) of 38.0 to 38.9 in adult [E66.09, Z68.38] Bipolar disorder (HCC) [F31.9] Morbid obesity (HCC) [E66.01] Allergies: Penicillins Date Verified: 12/21/18 Lab Values Lab Value Units Date High Low POTA* 3.9 mmol/L 12/09/2018 5.1 3.7 BC* 41.8 % 12/09/2018 46.0 36.0 Progress Notes (PSYL ADULT [facility]): SAMMY Dillon 12/17/2018 8:58 AM Signed Behavioral Health Social Work Progress Note Encounter Type: Update [facility] contacted Pt at [phone] for f/u [facility] was calling to clarify Pt's insurance and to assist Pt with resources. Pt stated she will be losing her [employer] insurance in 05-13 Pt stated she [facility] and has an appt for intake on 01-06-19 at 3:30pm Pt is concerned about the amount of time she will need to take off work, she will not be able to see a counselor and a psychiatrist on a monthly basis. -[facility] encouraged Pt to address this with the [facility] when she attends her appt -[facility] stated it is his understanding that when a Pt is stabilized with their symptoms appts with the psychiatrist can be spaced further apart, allowing for Pt to see a counselor. -Pt stated she previously received services at [facility] and they required Pt be seen by psychiatrist on monthly basis -[facility] stated each agency/provider have different criteria therefore encouraged Pt to discuss her concerns at the first visit. -Pt agreed Pt was reminded of the crisis # [phone] Pt was reminded of [facility]'s contact # [phone]. Pt declined [facility] f/u with her, I'm all set [facility] reminded Pt if she has any behavioral health needs in the future to please contact [facility] Pt voiced understanding. No further contact is indicated at this time. Pt has an appt at [facility] on [facility]-06-19. Pt has [facility]'s contact info. SAMMY Dillon-S December 17, 2018 Hamzah Angela MD 12/17/2018 8:59 AM Signed Agree thanks. Progress Notes ([facility]): Melva Rodarte LPN 12/16/2018 8:14 AM Signed Patient calling had started on generic Lexapro 10 mg once daily and Lamotrigine 25 mg one tablet daily, taking both at bedtime, patient now not sleeping past 2 days. Patient remembered when she was on these medications in the past caused nightmares and caused paranoid issues she can not remember which one for sure caused it. Patient not using any screens before bedtime or any changes. Patient uses [email or web address] for her pharmacy. Please advise Hamzah Angela MD 12/16/2018 11:03 AM Signed At her last appointment she said she tolerated both of these medications and was actually on a higher dosage. Does she remember if symptoms improved after a couple weeks of treatment? Kelechi Miller Ma 12/16/2018 5:12 PM Signed Patient states was not on these at last apt . Was just put on them. Paranoia was why she stopped taking the first time. Has not had that this time yet, just unable to sleep. Hamzah Angela MD 12/16/2018 5:15 PM Signed Sorry, I meant she had been on these years ago and they worked well. She told me this at her last appointment. I would have her continue for at least another week before changing rx. Needs to schedule OV with psychiatry as well. Kelechi Miller Ma 12/16/2018 5:24 PM Signed TC to pt. Unable to reach. Left message to call office. 12/16/2018 5:24 PM Melva Rodarte LPN 12/18/2018 8:09 AM Signed Patient returned call and went over notes from Dr Angela with understanding. Patient said she has appt with psych in Dec. Advised to continue taking medication for at least another week again from PCP notes. Normal [facility] Culture, urine Bacteria identified Cx Nom (U) Presumptive Lactobacillus sp. [facility] Work Phone: Vital Signs Date Time Vital Sign Value Performing Clinician Facility 08-11-2024 13:27-0400 Diastolic blood pressure 89 mm[Hg] No Primary Care Physician [facility] 08-11-2024 13:27-0400 Heart rate 100 /min No Primary Care Physician [facility] 08-11-2024 13:27-0400 Systolic blood pressure 128 mm[Hg] No Primary Care Physician [facility] 08-11-2024 13:01-0400 Body height 162.56 cm No Primary Care Physician [facility] 08-11-2024 13:01-0400 Body mass index (BMI) [Ratio] 47.5 kg/m2 No Primary Care Physician [facility] 08-11-2024 13:01-0400 Body weight 125.64 kg No Primary Care Physician [facility] 08-11-2024 12:54-0400 SaO2% (BldA) [Mass fraction] 96 % No Primary Care Physician [facility] 08-11-2024 10:10-0400 Body height 162.56 cm No Primary Care Physician [facility] 08-11-2024 10:10-0400 Body mass index (BMI) [Ratio] 47.6 kg/m2 No Primary Care Physician [facility] 08-11-2024 10:10-0400 Body weight 125.87 kg No Primary Care Physician [facility] 08-11-2024 10:10-0400 Diastolic blood pressure 87 mm[Hg] No Primary Care Physician [facility] 08-11-2024 10:10-0400 Systolic blood pressure 121 mm[Hg] No Primary Care Physician [facility] 07-27-2024 13:40-0400 Body height 162.56 cm No Primary Care Physician [facility] 07-27-2024 13:40-0400 Body mass index (BMI) [Ratio] 47.7 kg/m2 No Primary Care Physician [facility] 07-27-2024 13:40-0400 Body weight 126.15 kg No Primary Care Physician [facility] 07-27-2024 13:40-0400 Diastolic blood pressure 86 mm[Hg] No Primary Care Physician [facility] 07-27-2024 13:40-0400 Systolic blood pressure 126 mm[Hg] No Primary Care Physician [facility] 07-13-2024 14:55-0400 Body mass index (BMI) [Ratio] 47.2 kg/m2 No Primary Care Physician [facility] 07-13-2024 14:55-0400 Body weight 124.9 kg No Primary Care Physician [facility] 07-13-2024 14:55-0400 Diastolic blood pressure 76 mm[Hg] No Primary Care Physician [facility] 07-13-2024 14:55-0400 Systolic blood pressure 117 mm[Hg] No Primary Care Physician [facility] 06-30-2024 14:36-0400 Body height 162.56 cm No Primary Care Physician [facility] 06-30-2024 14:31-0400 Body mass index (BMI) [Ratio] 46.7 kg/m2 No Primary Care Physician [facility] 06-30-2024 14:31-0400 Body weight 123.54 kg No Primary Care Physician [facility] 06-30-2024 14:31-0400 Diastolic blood pressure 86 mm[Hg] No Primary Care Physician [facility] 06-30-2024 14:31-0400 Systolic blood pressure 124 mm[Hg] No Primary Care Physician [facility] 06-21-2024 21:15-0400 Body height 162.56 cm No Primary Care Physician [facility] 06-21-2024 21:15-0400 Body mass index (BMI) [Ratio] 46.6 kg/m2 No Primary Care Physician [facility] 06-21-2024 21:15-0400 Body weight 123.3 kg No Primary Care Physician [facility] 06-21-2024 21:00-0400 Body temperature 97.8 [degF] No Primary Care Physician [facility] 06-21-2024 21:00-0400 Respiratory rate 16 /min No Primary Care Physician [facility] 06-21-2024 20:59-0400 Diastolic blood pressure 64 mm[Hg] No Primary Care Physician [facility] 06-21-2024 20:59-0400 Heart rate 90 /min No Primary Care Physician [facility] 06-21-2024 20:59-0400 SaO2% (BldA) [Mass fraction] 97 % No Primary Care Physician [facility] 06-21-2024 20:59-0400 Systolic blood pressure 119 mm[Hg] No Primary Care Physician [facility] 06-16-2024 14:12-0400 Body mass index (BMI) [Ratio] 46.7 kg/m2 No Primary Care Physician [facility] 06-16-2024 14:12-0400 Body weight 123.37 kg No Primary Care Physician [facility] 06-16-2024 14:12-0400 Diastolic blood pressure 87 mm[Hg] No Primary Care Physician [facility] 06-16-2024 14:12-0400 Systolic blood pressure 125 mm[Hg] No Primary Care Physician [facility] 04-21-2024 13:38-0500 Body mass index (BMI) [Ratio] 46.3 kg/m2 No Primary Care Physician [facility] 04-21-2024 13:38-0500 Body weight 122.46 kg No Primary Care Physician [facility] 04-21-2024 13:38-0500 Diastolic blood pressure 76 mm[Hg] No Primary Care Physician [facility] 04-21-2024 13:38-0500 Systolic blood pressure 111 mm[Hg] No Primary Care Physician [facility] 03-26-2024 13:14-0500 Body mass index (BMI) [Ratio] 46.4 kg/m2 No Primary Care Physician [facility] 03-26-2024 13:14-0500 Body weight 122.64 kg No Primary Care Physician [facility] 03-26-2024 13:14-0500 Diastolic blood pressure 81 mm[Hg] No Primary Care Physician [facility] 03-26-2024 13:14-0500 Systolic blood pressure 118 mm[Hg] No Primary Care Physician [facility] 03-10-2024 18:30-0500 Body height 162.6 cm Lenard Santiago CALCULATION REVIEWER-PHYSICAL DIRECTOR Work Phone: [facility] 03-10-2024 18:30-0500 Body mass index (BMI) [Ratio] 45.57 kg/m2 Lenard Santiago CALCULATION REVIEWER-PHYSICAL DIRECTOR Work Phone: [facility] 03-10-2024 18:30-0500 Body temperature 97.7 [degF] Lenard Santiago CALCULATION REVIEWER-PHYSICAL DIRECTOR Work Phone: [facility] 03-10-2024 18:30-0500 Body weight 120.43 kg Lenard Santiago CALCULATION REVIEWER-PHYSICAL DIRECTOR Work Phone: [facility] 03-10-2024 18:30-0500 Diastolic blood pressure 81 mm[Hg] Lenard Santiago CALCULATION REVIEWER-PHYSICAL DIRECTOR Work Phone: [facility] 03-10-2024 18:30-0500 Heart rate 99 /min Lenard Santiago CALCULATION REVIEWER-PHYSICAL DIRECTOR Work Phone: [employer] [facility] 03-10-2024 18:30-0500 Respiratory rate 15 /min Lenard Santiago CALCULATION REVIEWER-PHYSICAL DIRECTOR [facility] Phone[facility] 03-10-2024 18:30-0500 SaO2% (BldA) [Mass fraction] 96 % Lenard Santiago CALCULATION REVIEWER-PHYSICAL DIRECTOR Work Phone: [employer] [facility] 03-10-2024 18:30-0500 Systolic blood pressure 115 mm[Hg] Lenard Santiago CALCULATION REVIEWER-PHYSICAL DIRECTOR Work Phone: [employer] [facility] 10-14-2023 10:51-0400 Body temperature 98.71 [degF] Uzair Cabrera MD Work Phone: [facility] 10-14-2023 10:51-0400 Diastolic blood pressure 80 mm[Hg] Uzair Cabrera MD Work Phone: [facility] 10-14-2023 10:51-0400 Heart rate 80 /min Uzair Cabrera MD Work Phone: [facility] 10-14-2023 10:51-0400 Respiratory rate 17 /min Uzair Cabrera MD Work Phone: [facility] 10-14-2023 10:51-0400 SaO2% (BldA) [Mass fraction] 90 % Uzair Cabrera MD Work Phone: [facility] 10-14-2023 10:51-0400 Systolic blood pressure 150 mm[Hg] Uzair Cabrera MD Work Phone: [facility] 10-14-2023 07:36-0400 Body height 162.6 cm Uzair Cabrera MD Work Phone: [facility] 10-14-2023 07:36-0400 Body mass index (BMI) [Ratio] 46.96 kg/m2 Uzair Cabrera MD Work Phone: [facility] 10-14-2023 07:36-0400 Body weight 124.15 kg Uzair Cabrera MD Work Phone: [facility] 10-13-2023 11:25-0400 SaO2% (BldA) [Mass fraction] 95.1 % Uzair Cabrera MD Work Phone: [facility] 09-18-2022 07:51-0400 Blood Pressure Location Alexander Gudimella [facility] 09-18-2022 07:51-0400 Diastolic blood pressure 68 mm[Hg] Alexander Gudimella [facility] 09-18-2022 07:51-0400 Heart rate 99 /min Alexander Gudimella [facility] 09-18-2022 07:51-0400 SaO2% (BldA) [Mass fraction] 97 % Alexander Gudimella [facility] 09-18-2022 07:51-0400 Systolic blood pressure 100 mm[Hg] Alexander Gudimella [facility] 07-30-2022 11:11-0400 Body height 162.[address] Beverley Moncada Work Phone: [facility] 07-30-2022 11:08-0400 Body mass index (BMI) [Ratio] 42.5 kg/m2 Dr. Beverley Moncada Work Phone: [facility] 07-30-2022 11:08-0400 Body weight 112.[address] Beverley Moncada Work Phone: [facility] 07-30-2022 11:08-0400 Diastolic blood pressure 79 mm[Hg] Dr. Beverley Moncada Work Phone: [facility] 07-30-2022 11:08-0400 Systolic blood pressure 124 mm[Hg] Dr. Beverley Moncada Work Phone: [facility] 06-12-2022 11:10-0400 Body mass index (BMI) [Ratio] 45.4 kg/m2 Dr. Beverley Moncada Work Phone: [facility] 06-12-2022 11:10-0400 Body weight 120.[address] Beverley Moncada Work Phone: [facility] 06-12-2022 11:10-0400 Diastolic blood pressure 84 mm[Hg] Dr. Beverley Moncada Work Phone: [facility] 06-12-2022 11:10-0400 Systolic blood pressure 125 mm[Hg] Dr. Beverley Moncada Work Phone: [facility] 06-11-2022 15:30-0400 Body temperature 98.1 [degF] Dr. Beverley Moncada Work Phone: [facility] 06-11-2022 15:30-0400 Diastolic blood pressure 63 mm[Hg] Dr. Beverley Moncada Work Phone: [facility] 06-11-2022 15:30-0400 Heart rate 96 /min Dr. Beverley Moncada Work Phone: [facility] 06-11-2022 15:30-0400 Respiratory rate 18 /min Dr. Beverley Moncada Work Phone: [facility] 06-11-2022 15:30-0400 Systolic blood pressure 128 mm[Hg] Dr. Beverley Moncada Work Phone: [facility] 06-11-2022 07:40-0400 SaO2% (BldA) [Mass fraction] 94 % Dr. Beverley Moncada Work Phone: [facility] 06-08-2022 22:11-0400 Body height 162.[address] Beverley Moncada Work Phone: [facility] 06-08-2022 22:11-0400 Body mass index (BMI) [Ratio] 47.2 kg/m2 Dr. Beverley Moncada Work Phone: [facility] 06-08-2022 22:11-0400 Body weight 124.[address] Beverley Moncada Work Phone: [facility] 06-03-2022 14:59-0400 Body weight 123.[address] Beverley Moncada Work Phone: [facility] 06-03-2022 10:59-0400 Body height 162.[address] Beverley Moncada Work Phone: [facility] 06-03-2022 10:57-0400 Body mass index (BMI) [Ratio] 29.5 kg/m2 Dr. Beverley Moncada Work Phone: [facility] 06-03-2022 10:57-0400 Diastolic blood pressure 78 mm[Hg] Dr. Beverley Moncada Work Phone: [facility] 06-03-2022 10:57-0400 Systolic blood pressure 114 mm[Hg] Dr. Beverley Moncada Work Phone: [facility] 05-28-2022 11:20-0500 Body mass index (BMI) [Ratio] 46 kg/m2 Dr. Beverley Moncada Work Phone: [facility] 05-28-2022 11:20-0500 Body weight 121.[address] Beverley Moncada Work Phone: [facility] 05-28-2022 11:20-0500 Diastolic blood pressure 83 mm[Hg] Dr. Beverley Moncada Work Phone: [facility] 05-28-2022 11:20-0500 Systolic blood pressure 118 mm[Hg] Dr. Beverley Moncada Work Phone: [facility] 05-22-2022 11:05-0500 Body mass index (BMI) [Ratio] 46.5 kg/m2 Dr. Beverley Moncada Work Phone: [facility] 05-22-2022 11:05-0500 Body weight 122.[address] Beverley Moncada Work Phone: [facility] 05-22-2022 11:05-0500 Diastolic blood pressure 77 mm[Hg] Dr. Beverley Moncada Work Phone: [facility] 05-22-2022 11:05-0500 Systolic blood pressure 124 mm[Hg] Dr. Beverley Moncada Work Phone: [facility] 04-22-2022 10:47-0500 Body mass index (BMI) [Ratio] 44.6 kg/m2 Dr. Beverley Moncada Work Phone: [facility] 04-22-2022 10:47-0500 Body weight 117.[address] Beverley Moncada Work Phone: [facility] 04-22-2022 10:47-0500 Diastolic blood pressure 85 mm[Hg] Dr. Beverley Moncada Work Phone: [facility] 04-22-2022 10:47-0500 Systolic blood pressure 127 mm[Hg] Dr. Beverley Moncada Work Phone: [facility] 04-08-2022 12:14-0500 Body temperature 97.8 [degF] Dr. Beverley Moncada Work Phone: [facility] 04-08-2022 12:14-0500 Diastolic blood pressure 60 mm[Hg] Dr. Beverley Moncada Work Phone: [facility] 04-08-2022 12:14-0500 Heart rate 88 /min Dr. Beverley Moncada Work Phone: [facility] 04-08-2022 12:14-0500 SaO2% (BldA) [Mass fraction] 96 % Dr. Beverley Moncada Work Phone: [facility] 04-08-2022 12:14-0500 Systolic blood pressure 117 mm[Hg] Dr. Beverley Moncada Work Phone: [facility] 04-08-2022 11:51-0500 Body mass index (BMI) [Ratio] 44.4 kg/m2 Dr. Beverley Moncada Work Phone: [facility] 04-08-2022 11:51-0500 Body weight 117.[address] Beverley Moncada Work Phone: [facility] 04-08-2022 11:02-0500 Body mass index (BMI) [Ratio] 44.5 kg/m2 Dr. Beverley Moncada Work Phone: [facility] 04-08-2022 11:02-0500 Body weight 117.[address] Beverley Moncada Work Phone: [phone] [place] [address] 04-08-2022 11:02-0500 Diastolic blood pressure 68 mm[Hg] Dr. Beverley Moncada Work Phone: [facility] 04-08-2022 11:02-0500 Systolic blood pressure 110 mm[Hg] Dr. Beverley Moncada Work Phone: [facility] 03-13-2022 15:15-0500 Body mass index (BMI) [Ratio] 44.3 kg/m2 Dr. Beverley Moncada Work Phone: [facility] 03-13-2022 15:15-0500 Body weight 117.[address] Beverley Moncada Work Phone: [facility] 03-13-2022 15:15-0500 Diastolic blood pressure 68 mm[Hg] Dr. Beverley Moncada Work Phone: [facility] 03-13-2022 15:15-0500 Systolic blood pressure 108 mm[Hg] Dr. Beverley Moncada Work Phone: [facility] 01-02-2022 15:54-0400 Body height 162.56 cm [facility] Work Phone: 01-02-2022 15:54-0400 Body mass index (BMI) [Ratio] 42.6 kg/m2 [facility] Work Phone: 01-02-2022 15:54-0400 Body weight 112.66 kg [facility] Work Phone: 01-02-2022 15:54-0400 Diastolic blood pressure 84 mm[Hg] [facility] Work Phone: 01-02-2022 15:54-0400 Systolic blood pressure 123 mm[Hg] [facility] Work Phone: 12-06-2021 14:55-0400 Body height 162.[address] Beverley Moncada Work Phone: [facility] Work Phone: 12-06-2021 14:55-0400 Body mass index (BMI) [Ratio] 42.5 kg/m2 Dr. Beverley Moncada Work Phone: [facility] Work Phone: 12-06-2021 14:55-0400 Body weight 112.[address] Beverley Moncada Work Phone: [facility] Work Phone: 12-06-2021 14:55-0400 Diastolic blood pressure 72 mm[Hg] Dr. Beverley Moncada Work Phone: [facility] Work Phone: 12-06-2021 14:55-0400 Systolic blood pressure 110 mm[Hg] Dr. Beverley Moncada Work Phone: [facility] Work Phone: 11-21-2021 13:23-0400 Body height 162.56 cm Kelly Madera DO Work Phone: [employer] Work Phone: 11-21-2021 13:23-0400 Body mass index (BMI) [Ratio] 42.23 kg/m2 Kelly Madera DO Work Phone: [email or web address] Work Phone: 11-21-2021 13:23-0400 Body surface area Derived from formula 2.14 m2 Kelly Madera DO Work Phone: [employer] Work Phone: 11-21-2021 13:23-0400 Body weight 111.59 kg Kelly Madera DO Work Phone: [employer] Work Phone: 11-21-2021 13:23-0400 Diastolic blood pressure 78 mm[Hg] Kelly Madera DO Work Phone: [facility] [employer] Work Phone: 11-21-2021 13:23-0400 Systolic blood pressure 118 mm[Hg] Kelly Madera DO Work Phone: [facility] [employer] Work Phone: Encounters Encounter Date Encounter Type Care Provider Facility Start: 09-02-2024 ambulatory No Primary Car e Physician Facility:[facility] Start: 08-26-2024 ambulatory No Primary Car e Physician Facility:[facility] Start: 08-26-2024 ambulatory Nenita Dove lity:[facility] Start: 08-19-2024 Encounter for genera l adult medical examination without abnormal findings Beverley Moncada [facility] Start: 08-19-2024 End: 08-19-2024 ambulatory RAVI MISTRY Facility:[facility] Start: 08-11-2024 End: 08-11-2024 ambulatory No Primary Care Physician [facility] Work Phone: Start: 08-11-2024 End: 08-11-[address] Beverley Moncada DO -[facility] Work Phone: Start: 08-11-2024 End: 08-11-[address] Beverley Moncada DO -[facility] Work Phone: Start: 08-11-2024 End: 08-11-2024 ambulatory No Primary Care Physician [facility] Work Phone: Start: 07-27-2024 End: 07-27-2024 Patient encounter procedure Tenisha Reyna CNM -[facility] Work Phone: Start: 07-27-2024 End: 07-27-2024 ambulatory No Primary Care Physician [facility] Work Phone: Start: 07-27-2024 End: 07-27-2024 ambulatory Nenita Wells Facility:[facility] Start: 07-13-2024 End: 07-13-[address] Nenita Wells MD -[facility] Work Phone: Start: 07-13-2024 End: 07-13-2024 ambulatory Nenita Wells Facility:[facility] [place] Start: 06-30-2024 End: 06-30-2024 Patient encounter procedure Fariba BREAUX -[facility] Work Phone: Start: 06-30-2024 End: 06-30-2024 ambulatory No Primary Care Physician [facility] Work Phone: Start: 06-30-2024 End: 06-30-2024 ambulatory Nenita Wells Facility:[facility] Start: 06-22-2024 ambulatory No Primary Car e Physician Facility:[facility] Start: 06-22-2024 ambulatory No Primary Car e Physician Facility:[facility] Start: 06-22-2024 Non-patient / Non-visit Tenisha Axel LOJA -[facility] Start: 06-21-2024 End: 06-21-2024 ambulatory No Primary Care Physician [facility] Work Phone: Start: 06-21-2024 End: 06-21-[address] Nenita Wells MD -[facility] Work Phone: Start: 06-16-2024 End: 06-16-[address] Beverley Moncada DO -[facility] Work Phone: Start: 06-16-2024 End: 06-16-2024 ambulatory No Primary Care Physician Facility:[facility] [place] Start: 05-19-2024 ambulatory No Primary Car e Physician Facility:[facility] [place] Start: 05-06-2024 End: 05-06-2024 ambulatory [facility] Start: 04-21-2024 End: 04-21-2024 Patient encounter procedure Fariba BREAUX -[facility] Work Phone: Start: 04-21-2024 End: 04-21-2024 ambulatory No Primary Care Physician Facility:[facility] [place] Start: 03-26-2024 End: 03-26-[address] Nenita Wells MD -[facility] Work Phone: Start: 03-26-2024 End: 03-26-2024 ambulatory No Primary Care Physician Facility:[facility] [place] Start: 03-26-2024 End: 03-26-2024 ambulatory No Primary Care Physician Facility:[facility] Start: 03-10-2024 End: 03-10-2024 Office outpatient visit 15 minutes Lenard Santiago CALCULATION REVIEWER-PHYSICAL DIRECTOR Work Phone: [facility] Comment on above: Pneumonia of left antonino ng due to infectious organism, unspecified part of lung (Primary Dx); Cough, unspecified type Start: 03-10-2024 ambulatory LENARD R [facility] Start: 02-18-2024 End: 02-18-2024 ambulatory No Primary Care Physician Facility:[facility] [place] Start: 02-18-2024 End: 02-18-2024 ambulatory No Primary Care Physician Facility:[facility] Start: 10-10-2023 End: 10-14-2023 Evaluation and management of inpatient Uzair Cabrera MD Work Phone: [facility] Comment on above: Pneumonia Start: 05-13-2023 End: 05-14-2023 ambulatory [facility] SIDELL [facility] Start: 01-28-2023 End: 01-29-2023 ambulatory [facility] Start: 01-28-2023 End: 01-29-2023 Encounter for general adult medical examination without abnormal findings [facility] Start: 11-04-2022 End: 11-05-2022 ambulatory Alexander Gudimella Facility:[facility] Start: 11-04-2022 End: 11-04-2022 Patient encounter procedure Alexander Gudimella [facility] Start: 10-21-2022 End: 10-22-2022 ambulatory Alexander Gudimella Facility:[facility] Start: 10-21-2022 End: 10-21-2022 Patient encounter procedure Alexander Gudimella [facility] Start: 10-01-2022 End: 10-02-2022 ambulatory Alexander Gudimella Facility:[facility] [place] Start: 10-01-2022 End: 10-01-2022 Patient encounter procedure Alexander Gudimella [facility] Start: 10-01-2022 End: 10-02-2022 ambulatory Alexander Gudimella Facility:[facility] Start: 09-18-2022 End: 09-19-2022 ambulatory Alexander Gudimella Facility:[facility] Start: 09-18-2022 End: 09-18-2022 Patient encounter procedure Alexander Starr [facility] Start: 09-12-2022 End: 09-13-2022 Emergency department patient visit Provider Pending Facility:[id number] Start: 09-11-2022 ambulatory LAURA SIDELL Facility:[facility] Start: 08-27-2022 End: 08-28-2022 ambulatory LAURA W SIDELL Facility: [facility] Start: 08-27-2022 End: 08-27-2022 Off-Site LAURA W SIDECORAL [facility] Start: 07-30-2022 End: 07-30-[address] Beverley Moncada Work Phone: [facility] Work Phone: Start: 07-30-2022 End: 07-30-[address] Beverley Moncada Work Phone: [facility]-Laboratory, Specimen Start: 07-30-2022 End: 07-30-[address] Beverley Moncada Work Phone: [facility] Start: 06-16-2022 End: 06-16-[address] Beverley Moncada Work Phone: [facility] Start: 06-12-2022 End: 06-12-[address] Beverley Moncada Work Phone: [facility] Start: 06-11-2022 Non-patient / Non-visit Dr. Beverley Moncada Work Phone: [facility] Start: 06-10-2022 Non-patient / Non-visit Dr. Beverley Moncada Work Phone: [facility] Start: 06-09-2022 Non-patient / Non-visit Dr. Beverley Moncada Work Phone: [facility] Start: 06-08-2022 Non-patient / Non-visit Dr. Beverley Moncada Work Phone: [facility] Start: 06-08-2022 End: 06-11-2022 Evaluation and management of inpatient Dr. Beverley Moncada Work Phone: [facility] Start: 06-03-2022 End: 06-03-[address] Beverley Moncada Work Phone: [facility] Work Phone: Start: 06-03-2022 End: 06-03-[address] Beverley Moncada Work Phone: [facility] Ul[facility] Start: 06-03-2022 End: 06-03-[address] Beverley Moncada Work Phone: [facility] Start: 05-28-2022 End: 05-28-[address] Beverley Moncada Work Phone: [facility] Start: 05-22-2022 End: 05-22-[address] Beverley Moncada Work Phone: [facility] Start: 04-22-2022 End: 04-22-[address] Beverley Moncada Work Phone: [facility] Start: 04-08-2022 Non-patient / Non-visit Dr. Beverley Moncada Work Phone: [facility] Start: 04-08-2022 End: 04-08-[address] Beverley Moncada Work Phone: [facility] Start: 03-28-2022 End: 03-28-2022 ambulatory Provider Pending Facility:[id number] Start: 03-13-2022 End: 03-13-[address] Beverley Moncada Work Phone: [facility] Start: 01-02-2022 End: 01-02-2022 ambulatory [facility] Work Phone: Start: 01-02-2022 End: 01-02-2022 [facility] Start: 01-02-2022 End: 01-02-2022 Patient encounter procedure [facility] Start: 12-12-2021 End: 12-12-2021 Patient encounter procedure [facility] Start: 12-06-2021 End: 12-06-[address] Beverley Moncada Work Phone: [facility] Work Phone: Start: 12-06-2021 End: 12-06-[address] Beverley Moncada Work Phone: [facility] Start: 12-06-2021 End: 12-06-[address] Beverley Moncada Work Phone: [facility] Start: 11-23-2021 Chart Update Kelly Madera DO Work Phone: [address] Work Phone: Start: 03-02-2016 End: 03-03-2016 Patient encounter [place] [facility] Facility:01 Procedures Date Procedure Procedure Detail Performing Clinician Start: 08-11-2024 Measurement of pH in vaginal fluid specimen using nitrazine yellow for detection of rupture of amniotic membrane No Primary Care Physician Comment on above: Amniotic fluid not p resent indicates No Rupture of FetalMembranes at time of specimen collection. Start: 08-11-2024 Ultrasonography for biophysical profile without non-stress testing No Primary Care Physician Start: 07-27-2024 Ultrasound scan for growth No Primary Care Physician Start: 06-30-2024 Serologic test for syphilis No Primary Care Physician Start: 06-21-2024 Ultrasound scan for growth No Primary Care Physician Start: 06-21-2024 Urnls dip stick/tabl et reagent auto microscopy No Primary Care Physician Start: 06-21-2024 Gram stain microscopy N o Primary Care Physician Start: 06-21-2024 Source specific culture No Primary Care Physician Start: 06-21-2024 Urine culture No Primar y Care Physician Start: 03-10-2024 SARS-CoV-2 (COVID-19 ) RNA [Presence] in Unspecified specimen by JADYN with probe detection Lenard Santiago CALCULATION REVIEWER-PHYSICAL DIRECTOR Work Phone: Start: 10-14-2023 C-reactive protein Step johnnie Lara CALCULATION REVIEWER-PHYSICAL DIRECTOR Work Phone: Start: 10-14-2023 Complete blood count with white cell differential, automated Marilee Dallas DO Work Phone: Start: 10-14-[address] josseline Allen CALCULATION REVIEWER-PHYSICAL DIRECTOR Work Phone: Start: 10-13-2023 Echo tthrc r-t 2d w/ wom-mode compl spec&colr d Shanon Hope Shanae CALCULATION REVIEWER-PHYSICAL DIRECTOR Work Phone: Start: 10-13-2023 Assay of lactate Peewee Hope Shanae CALCULATION REVIEWER-PHYSICAL DIRECTOR Work Phone: Start: 10-13-2023 Blood gases any comb ination ph pco2 po2 co2 hco3 Shanon Hope Shanae CALCULATION REVIEWER-PHYSICAL DIRECTOR Work Phone: Start: 10-13-2023 Radiologic exam ches t single view Marilee Dallas DO Work Phone: Start: 10-13-2023 C-reactive protein Esteban Lara CALCULATION REVIEWER-PHYSICAL DIRECTOR Work Phone: Start: 10-13-[address] josseline Diaz Alejandro CALCULATION REVIEWER-PHYSICAL DIRECTOR Work Phone: Start: 10-13-2023 Assay of lactate Stephe mya Garcia [facility] CALCULATION REVIEWER-PHYSICAL DIRECTOR Work Phone: Start: 10-12-2023 Assay of lactate Stephe n D Jane CALCULATION REVIEWER-PHYSICAL DIRECTOR Work Phone: Start: 10-12-2023 Assay of lactate Stephe n D Jane CALCULATION REVIEWER-PHYSICAL DIRECTOR Work Phone: Start: 10-12-2023 Urinalysis microscopic only Uzair Garcia [facility] CALCULATION REVIEWER-PHYSICAL DIRECTOR Work Phone: Start: 10-12-2023 Urinalysis, reagent strip without microscopy Uzair Lara CALCULATION REVIEWER-PHYSICAL DIRECTOR Work Phone: Start: 10-12-2023 End: 10-12-2023 Assay of troponin quantitative Uzair Lara CALCULATION REVIEWER-PHYSICAL DIRECTOR Work Phone: Start: 10-12-2023 C-reactive protein Esteban Lara CALCULATION REVIEWER-PHYSICAL DIRECTOR Work Phone: Start: 10-12-2023 End: 10-12-2023 Natriuretic peptide Uzair Lara CALCULATION REVIEWER-PHYSICAL DIRECTOR Work Phone: Start: 10-12-2023 Radiologic exam ches t single view Uzair Tylerson CALCULATION REVIEWER-PHYSICAL DIRECTOR Work Phone: Start: 10-12-[address] josseline Diaz Alejandro CALCULATION REVIEWER-PHYSICAL DIRECTOR Work Phone: Start: 10-11-2023 Ct angiography chest w/contrast/noncontrast zUair Lara CALCULATION REVIEWER-PHYSICAL DIRECTOR Work Phone: Start: 10-11-2023 Cultyp nuc acid amp prb cult/isolate ea orgnism Mirela Diaz Alejandro CALCULATION REVIEWER-PHYSICAL DIRECTOR Work Phone: Start: 10-11-2023 Fibrin dgradj produc ts d-dimer qual/semiquan Mirela Allen CALCULATION REVIEWER-PHYSICAL DIRECTOR Work Phone: Start: 10-11-2023 Ct thorax w/o contra st material Mirela Allen CALCULATION REVIEWER-PHYSICAL DIRECTOR Work Phone: Start: 10-11-2023 Iaad ia mult step me thod nos each organism Mirela Allen CALCULATION REVIEWER-PHYSICAL DIRECTOR Work Phone: Start: 10-11-2023 Blood count complete auto&auto difrntl wbc Marilee Dallas DO Work Phone: Start: 10-11-2023 C-reactive protein Step parul Allen CALCULATION REVIEWER-PHYSICAL DIRECTOR Work Phone: Start: 10-10-2023 Culture bacterial bl ood aerobic w/id isolates Uzair Cabrera MD Work Phone: Start: 10-10-2023 Radiologic exam ches t 2 views Uzair Cabrera MD Work Phone: Start: 10-10-2023 Comprehensive metabo lic panel Uzair Cabrera MD Work Phone: Start: 10-10-2023 Infectious agent dna /rna influenza 1st 2 types Uzair Cabrera MD Work Phone: Start: 10-10-2023 Sars-cov-2 detection by dna/rna Uzair Cabrera MD Work Phone: Start: 01-28-2023 Basic metabolic 2000 panel - Serum or Plasma Start: 01-28-2023 CBC W Auto Different ial panel - Blood Start: 01-28-2023 Lipid panel Start: 01-28-2023 TSH WITH REFLEX TO F REE T4 IF ABNORMAL Start: 01-28-2023 VITAMIN D 25-HYDROXY,TOTAL Start: 06-03-2022 Ultrasound scan for growth Dr. Beverley Moncada Work Phone: Start: 11-22-2021 Antibody screen Comment on above: Performed By: #### T +S #### [facility] [address] [place] [address] Cytopathology proced ure, preparation of smear, genital source Dr. Beverley Moncada Work Phone: Dilation and curetta ge of uterus LAURA ANA Group B Streptococcu s Culture Dr. Beverley Moncada Work Phone: Hysteroscopy Kelly Quiroga Work Phone: Comment on above: 2013; Investigation of tra nsfusion reaction Dr. Beverley Moncada Work Phone: None (qualifier value) LAURA PEREZ Urine culture LAURA PEREZ Plan of Treatment Date Care Activity Detail Author Start: 2053 RSV VACCINE (1 - 1-d ose 60+ series) RSV VACCINE (1 - 1-dose 60+ series) [facility] Start: 09-06-2029 Tetanus vaccination TETANUS [facility] Start: 10-13-2024 Potassium [Moles/vol ume] in Serum or Plasma POTASSIUM [facility] Start: 08-11-2024 Nonstress test [facility] Start: 08-11-2024 Obstetric monitoring [facility] Start: 08-11-2024 Vital signs measurements [facility] Start: 08-11-2024 [facility] Start: 08-11-2024 Patient discharge [facility] Start: 06-21-2024 Nonstress test [facility] Start: 06-21-2024 Source specific culture [facility] Start: 06-21-2024 End: 06-21-2024 [facility] Start: 06-21-2024 Obstetric monitoring [facility] Start: 06-21-2024 Vital signs measurements [facility] Start: 06-21-2024 Bacteria identified in Urine by Culture Urine Culture [facility] Start: 06-21-2024 Genital Culture Genital Culture [facility] Start: 06-21-2024 Microscopic observat ion [Identifier] in Unspecified specimen by Gram stain [facility] Start: 11-24-2023 End: 12-29-2023 CT Chest WO contrast CT CHEST WITHOUT CONTRAST Imaging Routine Pneumonia of both lungs due to infectious organism, unspecified part of lung Expected: 11/24/2023, Expires: 12/29/2023 [facility] Comment on above: Expected: 11/24/2023 , Expires: 12/29/2023 Start: 11-23-2023 COVID-19 VACCINE () COVID-19 VACCINE () [facility] Start: 11-23-2023 Influenza vaccination INFLUENZA VACC INE (#1) [facility] Start: 11-22-2022 COVID-19 VACCINE () COVID-19 VACCINE () [facility] Start: 06-11-2022 Patient discharge [facility] Start: 06-11-2022 [facility] Start: 06-10-2022 Consultation [facility] Start: 06-09-2022 Administration of medication [facility] Start: 06-09-2022 Application of ice c ollar, cap or bag [facility] Start: 06-09-2022 Catheterization of vein [facility] Start: 06-09-2022 Introduction of urin omar catheter [facility] Start: 06-09-2022 Measuring intake and output [facility] Start: 06-09-2022 Notification of physician [facility] Start: 06-09-2022 Procedure discontinued [facility] Start: 06-09-2022 Provision of activit y privileges [facility] Start: 06-09-2022 Vital signs measurements [facility] Start: 06-09-2022 [facility] Start: 06-08-2022 Admission procedure [facility] Start: 04-08-2022 Nonstress test [facility] Start: 04-08-2022 Obstetric monitoring [facility] Start: 04-08-2022 Vital signs measurements [facility] Start: 04-08-2022 [facility] Start: 04-08-2022 Patient discharge [facility] Start: 12-06-2021 Chlamydia deoxyribon ucleic acid detection [facility] Work Phone: Start: 12-06-2021 Liquid based cervica l cytology screening [facility] Work Phone: Start: 2014 Screening for malign ant neoplasm of cervix CERVICAL CANCER SCREENING DISCUSSION [facility] Start: 2012 Hepatitis B vaccination HEP B VACCINE (1 of 3 - 19+ 3-dose series) [facility] Start: 2008 HIV screening HIV SCREENING DISCUSSION [facility] Start: 1993 Hepatitis C screening HEPATITI S C VIRUS SCREENING [facility] Bacteria identified in Blood by Culture BLOOD CULTURE Microbiology [facility] 10/10/2023 10:28 PM EDT [facility] CBC W Auto Different ial panel - Blood [facility] Work Phone: CBC W Auto Different ial panel - Blood [facility] Biophysical pr ofile panel US [facility] Genital microscopy, culture and sensitivities [facility] Glucose [Mass/volume ] in Serum or Plasma --1 hour post 50 g glucose PO [facility] Work Phone: Hepatitis B surface antigen measurement [facility] Work Phone: Hepatitis C antibody measurement [facility] Work Phone: HIV 1+2 Ab+HIV1 p24 Ag [Presence] in Serum or Plasma by Immunoassay [facility] Work Phone: Measurement of gluco se 2 hours after glucose challenge for glucose tolerance test [facility] Neisseria gonorrhoea e rRNA [Presence] in Unspecified specimen by JADYN with probe detection [facility] Work Phone: Path report.final Dx Spec [facility] Work Phone: Patient Education [facility] Work Phone: Patient referral [facility] Work Phone: PCR test for Chlamyd ia trachomatis [facility] Work Phone: Rubella IgG measurement [facility] Work Phone: Serologic test for syphilis [facility] T4 free measurement [facility] Thyroid stimulating hormone measurement [facility] Treponema sp Ab [Pre sence] in Serum [facility] Work Phone: Ultrasound scan for growth [facility] Ultrasound scan for growth [facility] Urine culture [facility] Immunizations Immunization Date Immunization Notes Care Provider Theo hu 09-07-2019 tetanus toxoid, redu devin diphtheria toxoid, and acellular pertussis vaccine, adsorbed Dr. Beverley Moncada Work Phone: [facility] 01-22-2019 influenza virus vaccine, live, attenuated, for intranasal use [facility] 12-08-2018 influenza virus vaccine, unspecified formulation Uzair Cabrera MD Work Phone: [facility] Payers Date Payer Category Payer Self-pay [id number] 2022 Unknown 2022 Unknown [id number] 2022 Medicaid [id number] 1993 Unknown [id number] 2.840.1.186541.3.579.2.1068 1993 Unknown [id number] 2.0.1.530920.3.579.2.1068 1993 Unknown [id number] 2.16840.1.601658.3.579.2. 1993 Unknown [id number] 2.16840.1.161912.3.579.2. 1993 Unknown [id number] 2.16840.1.077837.3.579.2. 1993 Unknown [id number] 2.16840.1.933092.3.579.2 1993 Unknown [id number] 2.16.840.1.321943.3.579.2.727 1993 Unknown [id number] 2.16.840.1.602046.3.579.2.727 1993 Unknown [id number] 2.16.840.1.131373.3.579.2.1245 1993 Unknown [id number] 2.16.840.1.084045.3.579.2.174 1993 Unknown [id number] 2.16.840.1.787002.3.579.2.983 1993 Unknown [id number] 2.16840.1.396902.3.579.2.983 1993 Unknown [id number] 2.16840.1.737313.3.579.2.479 1959 Unknown [id number] Unknown ANTHEM [id number] Unknown ANTHEM SECONDARY [id number] Unknown [facility] [id number] Unknown [id number] 2.840.1.588255.3.579.2.462 Unknown [id number] 2.840.1.077012.3.579.2.462 Unknown [id number] 2.840.1.638355.3.579.2.462 Unknown [id number] 2.16840.1.001204.3.579.2.462 Unknown [id number] 2.840.1.356475.3.579.2.462 Unknown [id number] 2.840.1.589494.3.579.2.462 Unknown [id number] 2.16.840.1.237321.3.579.2.462 Unknown [id number] 2.16.840.1.395152.3.579.2.462 Unknown [id number] 2.16.840.1.485658.3.579.2.462 Unknown [id number] 2.16.840.1.063355.3.579.2.462 Unknown [id number] 2.16.840.1.102272.3.579.2.462 Unknown [id number] 2.16.840.1.701662.3.579.2.462 Unknown [id number] 2.16.840.1.255601.3.579.2.462 Unknown [id number] 2.16.840.1.936839.3.579.2.462 Unknown [id number] 2.16.840.1.975030.3.579.2.462 Unknown [id number] 2.16.840.1.739359.3.579.2.462 Unknown [id number] 2.16.840.1.850055.3.579.2.462 Unknown [id number] 2.16.840.1.241497.3.579.2.462 Unknown [id number] 2.16.840.1.673713.3.579.2.462 Unknown [id number] 2.16.840.1.840871.3.579.2.462 Unknown [id number] 2.16.840.1.883696.3.579.2.462 Unknown [id number] 2.16.840.1.463097.3.579.2.462 Unknown [id number] 2.16840.1.787905.3.579.2.462 Social History Date Type Detail Facility Start: 10-13-2023 End: 03-10-2024 Former smoker Former smoker [facility] Start: 12-06-2021 End: 07-30-2022 Tobacco smoking status IDIS Unknown if ever smoked [facility] Start: 1995 Sex Assigned At Female [facility] Start: 08-27-2022 End: 10-01-2022 Tobacco smoking status Ex-smoker (finding) [facility] Tobacco smoking status Never [facility] Start: 10-13-2023 End: 03-10-2024 Sex Assigned At Female [facility] Start: 10-10-2023 End: 06-21-2024 Tobacco smoking status NHIS Never smoked tobacco [email or web address] [facility] Start: 10-10-2023 Tobacco use and exposure Smokeless tobacco non-user [facility] Start: 10-10-2023 End: 03-10-2024 Alcoholic beverage intake Ex-drinker (finding) [facility] Has the electric, Egnyte, oil, or water company threatened to shut off services in your home in past 12Mo No [employer] (I/We) worried [facility] (my/our) food would run out before (I/we) got money to buy more. Never true [employer] [facility] Start: 1995 Sex assigned at Not on file [employer] [facility] Start: 12-30-2023 meevl [facility] Start: 06-22-2024 End: 07-06-2024 Sex Female (finding) [facility] Goals Date Patient Goal Desired Activity /State Functional Status Date Assessment Result Facility 09-18-2022 Functional Status N/A [facility] [place] 08-27-2022 Functional Status Telehealth Patient [facility] [place] Clinical Notes 12-06-2021 to 08-11-2024 Note Date & Type Note Facility 08-11-2024 Radiology Diagnostic study note [facility] Imaging Services [address], [place] [address] Biophysical Prof W/O Non Stres MR#: [id number] Acct: [id number] Name: ANAI WOO Rep #: [id number] : 1995 F 29 From: Gustavo Thapa MD PCP: Care Physician,No Primary Status: REG CLI Study:Biophysical Prof W/O Non Stres Date of Exam: 08/11/24 Exam# [id number] Ordering Dr: Tenisha Reyna CNM PROCEDURE: BIOPHYSICAL PROF W/O NON STRES 08/11/2024 REASON FOR EXAM: OBESITY DURING TECHNIQUE: High resolution obstetric ultrasound performed using a 2D transducer. Standard views obtained, including biometry, anatomy survey, and Doppler studies. COMPARISON: Prior study dated July 27, 2024. FINDINGS position: Cephalic heart rate: 144 beats per minute. Amniotic fluid: Within normal limits. Largest fluid pocket: 4.7 cm 10.4 cm. PABLO: 11.2 cm. Placenta location: Anterior and not low-lying. Biophysical profile: Breathing movements: 0 Gross body movements: 2 tone: 2 Amniotic fluid volume: 2 Total score: 6/8. US/Biophysical Prof W/O Non Stres IMPRESSION: biophysical profile score: 6/8. Reading Location: [place] [address] CC: DEAN Reyna; No Primary Care Physician ~ Feeder Driver: Signed [facility] 07-28-2024 Radiology Diagnostic study note [facility] Imaging Services [address] [place], [place] [id number] OB Limited With Biometrics MR#: [id number] Acct: [id number] Name: ANAI WOO Rep #: [id number] : 1995 F 29 From: Vishnu Schreiber MD PCP: Care Physician,No Primary Status: REG CLI Study:OB Limited With Biometrics Date of Exam : 07/27/24 Exam# [id number] Ordering Dr: Nenita Lucas MD PROCEDURE: OB LIMITED WITH BIOMETRICS 07/27/2024 REASON FOR EXAM: GROWTH TECHNIQUE: High resolution obstetric ultrasound performed using a 2D transducer. Standard views obtained, including biometry, anatomy survey, and Doppler studies. FINDINGS Transabdominal imaging Single live intrauterine heart tones 131 beats per minute. Presentation is cephalic. Cervix is not well seen. PABLO 14.3 cm, maximum vertical pocket 5.0 cm Anterior fundal placenta appears within limits, not low-lying. Hypoechoic area is seen at the amniotic side of the placenta which may represent a possible placental Pop. DIMENSIONS: Biparietal Diameter: 8.4 cm/33 weeks 5 days, 86% Head Circumference: 31 cm/34 weeks 4 days, 81% Abdominal Circumference: 29.3 cm/33 weeks 2 days, 84% Femur Length: 6.0 cm/31 weeks 2 days, 20% FL/AC 21%, FL/BPD 72%, FL/HC 19%, CI 78%, HC/AC 1.1 ESTIMATED WEIGHT: 2072 g +/-311 g ESTIMATED WEIGHT PERCENTILE (24+ weeks): 68% Estimated age by current ultrasound 33 weeks 4 days, HITESH 09/10/2024 age by LMP 32 weeks 0 days, HITESH 09/21/2024 US/OB Limited With Biometrics IMPRESSION: Single live intrauterine with biometry as above. Anterior fundal placenta appears within limits, not low-lying. Hypoechoic area is seen at the amniotic side of the placenta which may represent a possible placental Pop. Reading Location: [id number] CC: Dr. Nenita Wells MD; No Primary Care Physician ~ Feeder Driver: Signed [facility] 06-21-2024 Radiology Diagnostic study note [facility] Imaging Services [address] [place] [id number] OB Limited With Biometrics MR#: [id number] Acct: [id number] Name: ANAI WOO Rep #: [id number] : 1995 F 29 From: Emily Daniels DO PCP: Care Physician,No Primary Status: REG CLI Study:OB Limited With Biometrics Date of Exam : 06/21/24 Exam# [id number] Ordering Dr: Tenisha Reyna CNM PROCEDURE: OB LIMITED WITH BIOMETRICS 06/21/2024 REASON FOR EXAM: VAGINAL BLEEDING TECHNIQUE: High resolution obstetric ultrasound performed using a 2D transducer. Standard views obtained, including biometry, anatomy survey, and Doppler studies. COMPARISON: Ob ultrasound dated June 03, 2022. FINDINGS Number: 1 Position: Vertex Placental Position: Fundal Placental Abnormalities: No evidence of previa. DIMENSIONS: Biparietal Diameter: 6.9 cm/27 weeks 6 days Head Circumference: 26.6 cm/29 weeks 0 days Abdominal Circumference: 23 cm/27 weeks 3 days Femur Length: 4.9 cm/26 weeks 6 days ESTIMATED WEIGHT: 105 g ESTIMATED WEIGHT PERCENTILE (24+ weeks): ESTIMATED GESTATIONAL AGE: Baseline: 26 weeks 6 days By Ultrasound: 28 weeks 0 days ESTIMATED DATE OF DELIVERY: Baseline: 09/21/2024 By Ultrasound: 09/13/2024 BIOPHYSICAL ASSESSMENT: Amniotic Fluid Volume: 4.3 cm Amniotic Fluid Index: 13.2 cm (8-24 cm normal range) Cardiac Motion: 145 beats per minute (average) Trunk and Limb Motion: Present. MATERNAL ANATOMY: Adnexa: Neither maternal ovary is successfully identified. Cervical Length (if measured): 3.7 cm US/OB Limited With Biometrics IMPRESSION: Viable intrauterine with estimated gestational age of 28 weeks 0 days and HITESH of 09/13/2024. Reading Location: [facility] CC: DEAN Reyna; No Primary Care Physician ~ Feeder Driver: Signed [facility] 04-21-2024 Evaluation note Diagnosis Onset Date Resolution Bipolar disorder acute April 21, 2024 1:35pm Depression acute April 21, 2024 1:35pm History of herpes genitalis in father of unborn child acute April 21 1:35pm History of gestational hypertension acute April 21, 2024 1:35pm Maternal anesthesia complication acute April 21 1:35pm Obesity affecting acute April 21 1:35pm acute April 21, 2024 1:35pm Rubella non-immune status, antepartum acute April 21, 2024 1:35pm Supervision of high-risk acute April 21 1:35pm Thyromegaly acute April 21, 2024 1:35pm Bipolar disorder acute June 162024 2:10pm Depression acute June 16 2:10pm History of herpes genitalis in father of unborn child acute June 16, 2024 2:10pm History of gestational hypertension acute May 232024 2:10pm Maternal anesthesia complication acute June 16, 2024 2:10pm Obesity affecting acute June 16, 2024 2:10pm acute June 16 2:10pm Rubella non-immune status, antepartum acute June 16, 2 025 2:10pm Supervision of high-risk acute June 16, 2024 2:10pm Thyromegaly acute June 16, 2 025 2:10pm Bipolar disorder acute June 212024 8:40pm Depression acute June 21 8:40pm History of herpes genitalis in father of unborn child acute June 21, 2024 8:40pm History of gestational hypertension acute May 242024 8:40pm Maternal anesthesia complication acute June 21, 2024 8:40pm Obesity affecting acute June 21, 2024 8:40pm acute June 21 8:40pm Rubella non-immune status, antepartum acute June 21, 2 025 8:40pm Supervision of high-risk acute June 21, 2024 8:40pm Thyromegaly acute June 21, 2 025 8:40pm Vaginal bleeding during resolved June 21, 2024 8:40pm Bipolar disorder acute June 2:24pm Depression acute June 30 2:24pm History of herpes genitalis in father of unborn child acute June 30, 2024 2:24pm History of gestational hypertension acute June 302024 2:24pm Maternal anesthesia complication acute June 30, 2024 2:24pm Obesity affecting acute June 30, 2024 2:24pm acute June 30 2:24pm Rubella non-immune status, antepartum acute June 30 2:24pm Supervision of high-risk acute June 30, 2024 2:24pm Thyromegaly acute June 30 2:24pm Vaginal bleeding during resolved June 30, 2024 2:24pm Bipolar disorder acute July 132024 2:52pm Contraception management acute July 13, 2024 2:52pm Depression acute July 13 2:52pm History of herpes genitalis in father of unborn child acute July 13, 2024 2:52pm History of gestational hypertension acute June 232024 2:52pm Maternal anesthesia complication acute July 13, 2024 2:52pm Obesity affecting acute July 13, 2024 2:52pm acute July 13 2:52pm Rubella non-immune status, antepartum acute July 13 025 2:52pm Supervision of high-risk acute July 13, 2024 2:52pm Thyromegaly acute July 13 025 2:52pm Bipolar disorder acute July 27, 2024 1:32pm Contraception management acute July 27, 2024 1:32pm Depression acute July 27, 2024 1:32pm History of herpes genitalis in father of unborn child acute July 27, 2024 1: 32pm History of gestational hypertension acute July 1:32pm Maternal anesthesia complication acute July 27, 2024 1: 32pm Obesity affecting acute July 27, 2024 1: 32pm acute July 27, 2024 1:32pm Rubella non-immune status, antepartum acute July 27, 2024 1:32pm Supervision of high-risk acute July 27, 2024 1: 32pm Thyromegaly acute July 27, 2024 1:32pm [facility] Work Phone: 1(545) 489-811101-29-2025 Evaluation note* Diagnosis Onset Date Resolution Status Admit Date Bipolar disorder acute April 21, 2024 1:35pm Depression acute April 21, 2024 1:35pm History of herpes genitalis in father of unborn child acute March 252024 1:35pm History of gestational hypertension acute April 21, 2024 1:35pm Maternal anesthesia complication acute April 21 1:35pm Obesity affecting acute April 21, 2024 1:35pm acute April 21, 2024 1:35pm Rubella non-immune status, antepartum acute April 21 1:35pm Supervision of high-risk acute April 21 1:35pm Thyromegaly acute April 21, 2024 1:35pm Bipolar disorder acute June 162024 2:10pm Depression acute June 16 2:10pm History of herpes genitalis in father of unborn child acute May 2:10pm History of gestational hypertension acute May 232024 2:10pm Maternal anesthesia complication acute June 16, 2024 2:10pm Obesity affecting acute June 16, 2024 2:10pm acute June 16 2:10pm Rubella non-immune status, antepartum acute June 16, 2024 2:10pm Supervision of high-risk acute June 16, 2024 2:10pm Thyromegaly acute June 16, 2 025 2:10pm Bipolar disorder acute June 212024 8:40pm Depression acute June 21 8:40pm History of herpes genitalis in father of unborn child acute May 8:40pm History of gestational hypertension acute May 242024 8:40pm Maternal anesthesia complication acute June 21, 2024 8:40pm Obesity affecting acute June 21, 2024 8:40pm acute June 21 8:40pm Rubella non-immune status, antepartum acute June 21, 2024 8:40pm Supervision of high-risk acute June 21, 2024 8:40pm Thyromegaly acute June 21, 2 025 8:40pm Vaginal bleeding during resolved June 21, 2024 8:40pm Bipolar disorder acute June 2:24pm Depression acute June 30 2:24pm History of herpes genitalis in father of unborn child acute June 2:24pm History of gestational hypertension acute June 302024 2:24pm Maternal anesthesia complication acute June 30, 2024 2:24pm Obesity affecting acute June 30, 2024 2:24pm acute June 30 2:24pm Rubella non-immune status, antepartum acute June 30, 2024 2:24pm Supervision of high-risk acute June 30, 2024 2:24pm Thyromegaly acute June 30 2:24pm Vaginal bleeding during resolved June 30, 2024 2:24pm Bipolar disorder acute July 132024 2:52pm Contraception management acute July 13, 2024 2:52pm Depression acute July 13 2:52pm History of herpes genitalis in father of unborn child acute June 2:52pm History of gestational hypertension acute June 232024 2:52pm Maternal anesthesia complication acute July 13, 2024 2:52pm Obesity affecting acute July 13, 2024 2:52pm acute July 13 2:52pm Rubella non-immune status, antepartum acute July 13, 2024 2:52pm Supervision of high-risk acute July 13, 2024 2:52pm Thyromegaly acute July 13, 025 2:52pm Bipolar disorder acute July 27, 2024 1:32pm Contraception management acute July 27, 2024 1:32pm Depression acute July 27, 2024 1:32pm History of herpes genitalis in father of unborn child acute July 27, 2024 1:32pm History of gestational hypertension acute July 1:32pm Maternal anesthesia complication acute July 27, 2024 1: 32pm Obesity affecting acute July 27, 2024 1:32pm acute July 27, 2024 1:32pm Rubella non-immune status, antepartum acute July 27, 2024 1: 32pm Supervision of high-risk acute July 27, 2024 1: 32pm Thyromegaly acute July 27, 2024 1:32pm Bipolar disorder acute July 10:05am Contraception management acute August 11, 2024 10:05am Depression acute August 11, 2024 10:05am History of herpes genitalis in father of unborn child acute August 11, 2024 10:05am History of gestational hypertension acute July 10:05am Maternal anesthesia complication acute August 11, 2024 1 0:05am Obesity affecting acute August 11, 2024 10:05am acute August 11, 2024 10:05am Rubella non-immune status, antepartum acute August 11, 2024 1 0:05am Supervision of high-risk acute August 11, 2024 1 0:05am Thyromegaly acute August 11 10:05am [facility] Work Phone: 1(714) 932-196001-03-2025 Evaluation note* Diagnosis Onset Date Resolution Status Admit Date Bipolar disorder acute March 26, 2024 1:05pm Depression acute March 26, 2 025 1:05pm History of herpes genitalis in father of unborn child acute March 262024 1:05pm History of gestational hypertension acute March 26, 2024 1:05pm Maternal anesthesia complication acute March 26 1:05pm Obesity affecting acute March 26, 2024 1:05pm acute March 26, 025 1:05pm Supervision of high-risk acute March 26 1:05pm Thyromegaly acute March 26, 2024 1:05pm Bipolar disorder acute April 21, 2024 1:35pm Depression acute April 21, 2024 1:35pm History of herpes genitalis in father of unborn child acute March 252024 1:35pm History of gestational hypertension acute April 21, 2024 1:35pm Maternal anesthesia complication acute April 21 1:35pm Obesity affecting acute April 21, 2024 1:35pm acute April 21, 2024 1:35pm Rubella non-immune status, antepartum acute April 21 1:35pm Supervision of high-risk acute April 21 1:35pm Thyromegaly acute April 21, 2024 1:35pm Bipolar disorder acute June 162024 2:10pm Depression acute June 16 2:10pm History of herpes genitalis in father of unborn child acute May 2:10pm History of gestational hypertension acute May 232024 2:10pm Maternal anesthesia complication acute June 16, 2024 2:10pm Obesity affecting acute June 16, 2024 2:10pm acute June 16 2:10pm Rubella non-immune status, antepartum acute June 16, 2024 2:10pm Supervision of high-risk acute June 16, 2024 2:10pm Thyromegaly acute June 16 025 2:10pm [facility] Work Phone: 1(388) 440-943601-03-2025 Evaluation note* Diagnosis Onset Date Resolution Status Admit Date Bipolar disorder acute March 26, 2024 1:05pm Depression acute March 26, 025 1:05pm History of herpes genitalis in father of unborn child acute March 262024 1:05pm History of gestational hypertension acute March 26, 2024 1:05pm Maternal anesthesia complication acute March 26 1:05pm Obesity affecting acute March 26, 2024 1:05pm acute March 26, 2 025 1:05pm Supervision of high-risk acute March 26 1:05pm Thyromegaly acute March 26, 2024 1:05pm Bipolar disorder acute April 21, 2024 1:35pm Depression acute April 21, 2024 1:35pm History of herpes genitalis in father of unborn child acute March 252024 1:35pm History of gestational hypertension acute April 21, 2024 1:35pm Maternal anesthesia complication acute April 21 1:35pm Obesity affecting acute April 21, 2024 1:35pm acute April 21, 2024 1:35pm Rubella non-immune status, antepartum acute April 21 1:35pm Supervision of high-risk acute April 21 1:35pm Thyromegaly acute April 21, 2024 1:35pm Bipolar disorder acute June 162024 2:10pm Depression acute June 16 2:10pm History of herpes genitalis in father of unborn child acute May 2:10pm History of gestational hypertension acute May 232024 2:10pm Maternal anesthesia complication acute June 16, 2024 2:10pm Obesity affecting acute June 16, 2024 2:10pm acute June 16 2:10pm Rubella non-immune status, antepartum acute June 16, 2024 2:10pm Supervision of high-risk acute June 16, 2024 2:10pm Thyromegaly acute June 16, 2 025 2:10pm Bipolar disorder acute June 212024 8:40pm Depression acute June 21 8:40pm History of herpes genitalis in father of unborn child acute May 8:40pm History of gestational hypertension acute May 242024 8:40pm Maternal anesthesia complication acute June 21, 2024 8:40pm Obesity affecting acute June 21, 2024 8:40pm acute June 21 8:40pm Rubella non-immune status, antepartum acute June 21, 2024 8:40pm Supervision of high-risk acute June 21, 2024 8:40pm Thyromegaly acute June 21, 025 8:40pm Vaginal bleeding during acute June 21, 2024 8:40pm Bipolar disorder acute June 2:24pm Depression acute June 30 2:24pm History of herpes genitalis in father of unborn child acute June 2:24pm History of gestational hypertension acute June 302024 2:24pm Maternal anesthesia complication acute June 30, 2024 2:24pm Obesity affecting acute June 30, 2024 2:24pm acute June 30 2:24pm Rubella non-immune status, antepartum acute June 30, 2024 2:24pm Supervision of high-risk acute June 30, 2024 2:24pm Thyromegaly acute June 30 2:24pm Vaginal bleeding during acute June 30, 2024 2:24pm [facility] Work Phone: [phone] 168-813412-18-2024 History of Present illness Narrative* Lenard Santiago, ANU-PHYSICAL DIRECTOR - 03/10/2024 4:55 PM EST HPI Anai Woo female 1995 presents to the [facility] with Chief Complaint Patient presents with Cough Pt states that she hada cough a few weeks ago and it went away , but returned a few days ago and isharsher. Pt denies any chest pain. Pt states that she has body aches , ear aches and SOB when moving around. Pt is 12 wks History No Known Allergies Current Outpatient Medications Medication Sig Cetirizine 10 MG tablet Take 1 tablet by mouth daily. contraceptive, oral Take by mouth. Pt unsure of dosage. Pt reported Brian OCP lamoTRIgine 100 MG tablet Take 2 tablets by mouth daily. Sertraline 100 MG tablet Take 1 tablet by mouth daily. Azithromycin (Zithromax Z-Onesimo) 250 MG tablet Take 2 tablets (500 mg) on Day 1, then 1 tablet (250 mg) daily on Days 2-5 guaifenesin 100 MG/5ML solution Take 5 mL by mouth every 6 hours as needed for Cold Symptoms for upto 2 days. Labetalol 200 MG tablet Take 1 tablet by mouth every 12 hours. predniSONE 20 MG tablet Take 2 tablets by mouth daily for 3 days, THEN 1 tablet daily for 3 days. 40,40,40,20,20,20. Thiamine 100 MG tablet Take 1 tablet by mouth daily. History reviewed. No pertinent family history. Past Medical History: Diagnosis Date Asthma No past surgical history on file. Social History Socioeconomic History Marital status: Spouse name: Not on file Number of children: Not on file Years of education: Not on file Highest education level: Not on file Occupational History Not on file Tobacco Use Smoking status: Never Smokeless tobacco: Never Vaping Use Vaping status: Never Used Substance and Sexual Activity Alcohol use: Not Currently Drug use: Never Sexual activity: Not on file Other Topics Concern Not on file Social History Narrative Not on file Social Determinants of Health Financial Resource Strain: Low Risk (02/24/2024) Received from [facility] Overall Financial Resource Strain (CARDIA) Difficulty of Paying Living Expenses: Not hard at all Food Insecurity: No Food Insecurity (02/24/2024) Received from [facility] Hunger Vital Sign Worried About Running Out of Food in the Last Year: Never true Ran Out of Food in the Last Year: Never true Transportation Needs: Unknown (02/24/2024) Received from [facility] PRAPARE - Transportation Lack of Transportation (Medical): Not on file Lack of Transportation (Non-Medical): No Physical Activity: Inactive (01/20/2023) Received from [facility] Exercise Vital Sign Days of Exercise per Week: 0 days Minutes of Exercise per Session: 0 min Stress: Not on file Social Connections: Not on file Intimate Partner Violence: Not At Risk (10/13/2023) Humiliation, Afraid, Rape, and Kick questionnaire Fear of Current or Ex-Partner: No Emotionally Abused: No Physically Abused: No Sexually Abused: No Housing Stability: Low Risk (10/13/2023) Housing Stability Vital Sign Unable to Pay for Housing in the Last Year: No Number of Places Lived in the Last Year: 1 Unstable Housing in the Last Year: No ROS Review of Systems 8 systems reviewed with patient, negative unless specifically mentioned in history of present illness PHYSICAL EXAM Visit Vitals BP 115/81 (BP Location: Left arm, BP Position: Sitting) Pulse 99 Temp 97.7 F (36.5 C) (Temporal) Resp 15 Ht 1.626 m (5' 4) Wt 120.4 kg (265 lb 8 oz) SpO2 96% BMI 45.57 kg/m Physical Exam Vitals and nursing note reviewed. Constitutional: General: She is not in acute distress. Appearance: Normal appearance. She is well-developed. She is ill-appearing. She is not diaphoretic. HENT: Head: Normocephalic. Right Ear: Tympanic membrane normal. Left Ear: Tympanic membrane normal. Nose: Nose normal. Mouth/Throat: Mouth: Mucous membranes are moist. Pharynx: Oropharynx is clear. Eyes: Conjunctiva/sclera: Conjunctivae normal. Pupils: Pupils are equal, round, and reactive to light. Cardiovascular: Rate and Rhythm: Normal rate and regular rhythm. Heart sounds: Normal heart sounds. Pulmonary: Effort: Pulmonary effort is normal. No respiratory distress. Breath sounds: Examination of the left-lower field reveals rales. Rhonchi and rales present. Abdominal: General: There is no distension. Palpations: Abdomen is soft. Musculoskeletal: General: Normal range of motion. Cervical back: Neck supple. Lymphadenopathy: Cervical: No cervical adenopathy. Skin: General: Skin is warm and dry. Capillary Refill: Capillary refill takes less than 2 seconds. Neurological: General: No focal deficit present. Mental Status: She is alert and oriented to person, place, and time. Psychiatric: Mood and Affect: Mood normal. Behavior: Behavior normal. RESULTS Recent Results (from the past 2 hour(s)) SARS-COV-2 RAPID ANTIGEN (CLINIC ONLY) Collection Time: 03/10/24 7:03 PM Specimen: NARES Result Value Ref Range SARS-COV-2 Rapid Antigen NOT DETECTED NOT DETECTED NARRATIVE -1 This test was performed using lateral flow immunoassay. This test does not differentiate between SARS-CoV and SARS-CoV2. ASSESSMENT/PLAN 1. Pneumonia of left lung due to infectious organism, unspecified part of lung 2. Cough, unspecified type Orders Placed This Encounter SARS-COV-2 RAPID ANTIGEN (CLINIC ONLY) Azithromycin (Zithromax Z-Onesimo) 250 MG tablet predniSONE 20 MG tablet If symptoms worsen patient was advised to follow up in our office, primary care provider or the Emergency Dept. Benefits, Risks, Contraindications, and Complications of recommended treatments were explained. The patient understands and agrees to proceed with plan. PHILIP Wilkes 03/10/2024 * PHILIP Wilkes - 03/10/2024 4:55 PM EST HPI Anai Woo female 1995 presents to the [facility] with Chief Complaint Patient presents with Cough Pt states that she hada cough a few weeks ago and it went away , but returned a few days ago and isharsher. Pt denies any chest pain. Pt states that she has body aches , ear aches and SOB when moving around. Pt is 12 wks Patient presents with a cough that is occasionally productive that started over a month ago. She was seen at another urgent care and treated with an antibiotic. Her cough slightly improve then worsened again. She has tried lxyr-xae-wuacfln medications. No recorded fevers. She has body aches, shortness for breath. History of pneumonia in September with similar symptoms. Patient currently 12 weeks . History No Known Allergies Current Outpatient Medications Medication Sig Cetirizine 10 MG tablet Take 1 tablet by mouth daily. contraceptive, oral Take by mouth. Pt unsure of dosage. Pt reported Brian OCP lamoTRIgine 100 MG tablet Take 2 tablets by mouth daily. Sertraline 100 MG tablet Take 1 tablet by mouth daily. Azithromycin (Zithromax Z-Onesimo) 250 MG tablet Take 2 tablets (500 mg) on Day 1, then 1 tablet (250 mg) daily on Days 2-5 guaifenesin 100 MG/5ML solution Take 5 mL by mouth every 6 hours as needed for Cold Symptoms for upto 2 days. Labetalol 200 MG tablet Take 1 tablet by mouth every 12 hours. predniSONE 20 MG tablet Take 2 tablets by mouth daily for 3 days, THEN 1 tablet daily for 3 days. 40,40,40,20,20,20. Thiamine 100 MG tablet Take 1 tablet by mouth daily. History reviewed. No pertinent family history. Past Medical History: Diagnosis Date Asthma No past surgical history on file. Social History Socioeconomic History Marital status: Spouse name: Not on file Number of children: Not on file Years of education: Not on file Highest education level: Not on file Occupational History Not on file Tobacco Use Smoking status: Never Smokeless tobacco: Never Vaping Use Vaping status: Never Used Substance and Sexual Activity Alcohol use: Not Currently Drug use: Never Sexual activity: Not on file Other Topics Concern Not on file Social History Narrative Not on file Social Determinants of Health Financial Resource Strain: Low Risk (02/24/2024) Received from [facility] Overall Financial Resource Strain (CARDIA) Difficulty of Paying Living Expenses: Not hard at all Food Insecurity: No Food Insecurity (02/24/2024) Received from [facility] Hunger Vital Sign Worried About Running Out of Food in the Last Year: Never true Ran Out of Food in the Last Year: Never true Transportation Needs: Unknown (02/24/2024) Received from [facility] PRAPARE - Transportation Lack of Transportation (Medical): Not on file Lack of Transportation (Non-Medical): No Physical Activity: Inactive (01/20/2023) Received from [facility] Exercise Vital Sign Days of Exercise per Week: 0 days Minutes of Exercise per Session: 0 min Stress: Not on file Social Connections: Not on file Intimate Partner Violence: Not At Risk (10/13/2023) Humiliation, Afraid, Rape, and Kick questionnaire Fear of Current or Ex-Partner: No Emotionally Abused: No Physically Abused: No Sexually Abused: No Housing Stability: Low Risk (10/13/2023) Housing Stability Vital Sign Unable to Pay for Housing in the Last Year: No Number of Places Lived in the Last Year: 1 Unstable Housing in the Last Year: No ROS Review of Systems 8 systems reviewed with patient, negative unless specifically mentioned in history of present illness PHYSICAL EXAM Visit Vitals BP 115/81 (BP Location: Left arm, BP Position: Sitting) Pulse 99 Temp 97.7 F (36.5 C) (Temporal) Resp 15 Ht 1.626 m (5' 4) Wt 120.4 kg (265 lb 8 oz) SpO2 96% BMI 45.57 kg/m Physical Exam Vitals and nursing note reviewed. Constitutional: General: She is not in acute distress. Appearance: Normal appearance. She is well-developed. She is not ill-appearing or diaphoretic. HENT: Head: Normocephalic. Right Ear: Tympanic membrane normal. Left Ear: Tympanic membrane normal. Nose: Nose normal. Mouth/Throat: Mouth: Mucous membranes are moist. Pharynx: Oropharynx is clear. Eyes: Pupils: Pupils are equal, round, and reactive to light. Cardiovascular: Rate and Rhythm: Normal rate and regular rhythm. Heart sounds: Normal heart sounds. Pulmonary: Effort: Pulmonary effort is normal. No respiratory distress. Breath sounds: Examination of the left-lower field reveals rales. Rales present. Musculoskeletal: General: Normal range of motion. Cervical back: Neck supple. Skin: General: Skin is warm and dry. Capillary Refill: Capillary refill takes less than 2 seconds. Neurological: General: No focal deficit present. Mental Status: She is alert and oriented to person, place, and time. Psychiatric: Mood and Affect: Mood normal. Behavior: Behavior normal. RESULTS Recent Results (from the past 2 hour(s)) SARS-COV-2 RAPID ANTIGEN (CLINIC ONLY) Collection Time: 03/10/24 7:03 PM Specimen: NARES Result Value Ref Range SARS-COV-2 Rapid Antigen NOT DETECTED NOT DETECTED NARRATIVE -1 This test was performed using lateral flow immunoassay. This test does not differentiate between SARS-CoV and SARS-CoV2. ASSESSMENT/PLAN 1. Pneumonia of left lung due to infectious organism, unspecified part of lung 2. Cough, unspecified type Orders Placed This Encounter SARS-COV-2 RAPID ANTIGEN (CLINIC ONLY) Azithromycin (Zithromax Z-Onesimo) 250 MG tablet predniSONE 20 MG tablet Rapid COVID-19 test is negative. Concerned for pneumonia in the left lower lobe. Azithromycin, oralsteroid. Follow up with PCP in 5-7 days for recheck. Discussed supportive home care, uemv-xeg-twmbvnj medications. Work note provided. If symptoms worsen patient was advised to follow up in our office, primary care provider or the Emergency Dept. Benefits, Risks, Contraindications, and Complications of recommended treatments were explained. The patient understands and agrees to proceed with plan. PHILIP Wilkes 03/10/2024 [facility] History of Present illness Narrative* Elsa Guzman RRT - 10/14/2023 3:24 PM EDT Pt instructed on O2 tank. Pt stated understanding. * Liss Denney RN - 10/14/2023 3:07 PM EDT Spoke with RT Anuj and she will provide [employer] tank to patient. * Liss Denney RN - 10/14/2023 1:33 PM EDT Conference with AUDREY Berumen. Patient has been qualified for home oxygen. Attempted to call patient to see if she has oxygen company preference. Unable to reach via cell phone. REAL ESTATE ADMINISTRATOR asked patient alexsabas no preference. Referral information emailed to Kadi at [facility] [place]. Will update RT when able to release [employer] tank. * AUDREY Jordan - 10/14/2023 12:29 PM EDT AUDREY updated by respiratory that Anai is going to need 2L o2 at home for discharge. AUDREY updated covering Nurse Navigator Mitra on O2 needs. She is watching chart for notes and orders and then will set up for home * Elsa Guzman RRT - 10/14/2023 12:23 PM EDT Pt oxygen saturation at rest on room air is: 94% Pt oxygen saturation with exertion on room air is: 88% Placed 2L oxygen via nasal cannula on patient during exertion. Oxygen saturation improved to:93% Ptoxygen saturation at rest on room air is: 94% * Brooke Amaro RRT - 10/13/2023 2:58 PM EDT 1442 - Pt oxygen saturation at rest on room air is: 90% 1444 - Pt oxygen saturation with exertion on room air is: SpO2 81-83% HR 134 pt states SOB. Placed pt on 2L NC HR 124 pt rested. SpO2 88% on 2L walking, increased to 3L pt rested SpO2 93% HR 88 . Pt continued to walk on 3L oxygen via nasal cannula during exertion. Oxygen saturation remained: 92-93%HR 114. Pt tolerated walk well and stated that she felt less SOB with oxygen on. Brooke Amaro RRT 3:11 PM 10/13/2023 * AUDREY Jordan - 10/13/2023 11:47 AM EDT Chart reviewed. REAL ESTATE ADMINISTRATOR met with Anai in the room she was sitting up in her chair. She lives at home with her ni and their 2 year old son. Demond has the son and is helping at this time. She is employed and denies issues. Raya financial issues. Does not have O2 at home. Stated she has no issues going to the MD or with pharmacy. Feels safe at home. Discharge plan home REAL ESTATE ADMINISTRATOR to follow for new needs 10/13/23 0098 Information Source Information Source patient Employment/Financial Employed? 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 no In the past 12 months, has lack of transportation kept you from meetings, work, or from getting things needed for daily living? No Financial Resource Strain How hard is it for you to pay for the very basics like food, housing, medical care, and heating? Not hard Utilities In the past 12 months has the [employer], gas, oil, or water [place] threatened to shut off services in your home? No Housing Stability In the last 12 months, was there a time when you were not able to pay the mortgage or rent on time?N In the last 12 months, how many places have you lived? 1 In the last 12 months, was there a time when you did not have a steady place to sleep or slept in ashelter (including now)? N Food Insecurity Within the past 12 months, you worried that your food would run out before you got the money to buymore. Never true Within the past 12 months, the food you bought just didn't last and you didn't have money to get more. Never true Intimate Partner Violence Within the last year, have you been afraid of your partner or ex-partner? No Within the last year, have you been humiliated or emotionally abused in other ways by your partner or ex-partner? No Within the last year, have you been kicked, hit, slapped, or otherwise physically hurt by your partner or ex-partner? No Within the last year, have you been raped or forced to have any kind of sexual activity by your partner or ex-partner? No Abuse Screen Do You Feel Unsafe at Home, Work or School? no Emotional/Psychological Mental Health Conditions/Symptoms denies Previous Mental Health Treatment none Substance Use Past or current substance use by patient Denied Values and Beliefs Cultural or spiritism practices that may impact discharge planning and/or medical care? No * Anoop Tee [facility],PharmD - 10/13/2023 9:45 AM EDT Pharmacy - IV to PO Conversion Documentation NAME: Anai Webber Room/Bed: [facility] Previous Medication Order: levaquin 750mg IV every 24 hours New Medication Order: levaquin 750mg PO every 24 hours The above medication was converted from intravenous to oral administration in accordance with the [facility] to PO Conversion Policy. Orders have been updated in IS. The patient was eligible for conversion based one or more of the following: Functioning gastrointestinal tract and absence of bowel abnormalities Adequate oral intake o Soft or solid diet ordered o Tolerating at least 1000ml/day of oral fluids OR 40ml/hr of enteral nutrition Tolerating other oral medication Additional requirements for antimicrobials: o IV therapy received for 48-72 hours o WBC and differential trending toward normal range or stable leukocytosis with concomitant glucocorticoid use o Afebrile (temperature < 38C or < 100.4F) for at least 24 hours o Heart rate ? 90 beats per minute o Respiratory rate ? 20 breaths per minute o Systolic blood pressure ? 90 mm Hg (without vasopressor drugs) Please contact pharmacy if there are any questions. Pharmacy will continue to follow. Signed: Anoop Tee RPh,Patricia, [facility] Phone: [phone] Date/Time: 10/13/2023 9:44 AM * Shanon Jolly, ANU-PHYSICAL DIRECTOR - 10/13/2023 9:15 AM EDT DAILY PROGRESS NOTE Anai Webber 1995 Date of Evaluation: 10/13/23 9:15 AM [facility] LOS: 0 days SUBJECTIVE: Patient seen and examined. Chart, medications, labs all reviewed. Patient up in chair this morning,states she would really like to go home. States understanding of treatment plan. Patient denies all reports of XIONG, BV, LH, Dizziness, Fever, Chills, Nausea, Vomiting, Diarrhea, or Pain. Currently on 2 liters NC (baseline room air), without sign of acute distress. Vital Signs: Blood pressure 165/89, pulse 78, temperature 97.9 F (36.6 C), temperature source Temporal, resp. rate 17, height 1.626 m (5' 4), weight 120.6 kg (265 lb 12.8 oz), SpO2 91%. O2 Sat (%): 91 % (10/12 0732) O2 Device: nasal cannula (10/12 0815) Intake and Output: No intake or output data in the 24 hours ending 10/13/23 1034 Daily Weight: Wt Readings from Last 3 Encounters: 10/12/23 120.6 kg (265 lb 12.8 oz) PHYSICAL EXAM: General: Patient awake. Up in chair. No acute distress. Cardiovascular: Regular rate and rhythm, without murmurs, rubs, or gallops. Respiratory: Diminished BLL, expiratory wheezes noted Abdomen: Soft, rounded, non-tender. Bowel sounds present x4 quadrants. No rebound. No organomegaly or masses noted upon deep palpation. Extremities: Non-pitting edema BLE, no clubbing or cyanosis, pulses palpable 2+ distally. Diagnostics: Lab Results Component Value Date SPGRVTYUR 1.025 10/12/2023 GLUCOSEURINE 500 (A) 10/12/2023 BILIRUBINURI NEGATIVE 10/12/2023 KETONESURINE NEGATIVE 10/12/2023 NITRITESURIN NEGATIVE 10/12/2023 LEUKOCESTUR NEGATIVE 10/12/2023 WBCURINE NEGATIVE 10/12/2023 RBCURINE NEGATIVE 10/12/2023 BACTERIAURIN NEGATIVE 10/12/2023 CBC Lab Results Component Value Date/Time WBC 15.7 (H) 10/13/2023 05:15 AM WBC 14.0 (H) 10/12/2023 05:05 AM WBC 9.1 10/11/2023 04:55 AM HGB 11.7 (L) 10/13/2023 05:15 AM HGB 11.9 (L) 10/12/2023 05:05 AM HGB 13.0 10/11/2023 04:55 AM HCT 34.6 (L) 10/13/2023 05:15 AM HCT 35.5 (L) 10/12/2023 05:05 AM HCT 39.3 10/11/2023 04:55 AM PLATELET 325 10/13/2023 05:15 AM PLATELET 292 10/12/2023 05:05 AM PLATELET 232 10/11/2023 04:55 AM Chemistry Lab Results Component Value Date/Time GLUCOSE 151 (H) 10/13/2023 05:15 AM GLUCOSE 209 (H) 10/12/2023 05:05 AM GLUCOSE 239 (H) 10/11/2023 04:55 AM BUN 15 10/13/2023 05:15 AM BUN 13 10/12/2023 05:05 AM BUN 7 10/11/2023 04:55 AM CREATSERUM 0.50 (L) 10/13/2023 05:15 AM CREATSERUM 0.50 (L) 10/12/2023 05:05 AM CREATSERUM 0.50 (L) 10/11/2023 04:55 AM SODIUM 135 (L) 10/13/2023 05:15 AM SODIUM 137 10/12/2023 05:05 AM SODIUM 135 (L) 10/11/2023 04:55 AM POTASSIUM 3.9 10/13/2023 05:15 AM POTASSIUM 3.5 10/12/2023 05:05 AM POTASSIUM 3.3 (L) 10/11/2023 04:55 AM CHLORIDE 104 10/13/2023 05:15 AM CHLORIDE 109 (H) 10/12/2023 05:05 AM CHLORIDE 107 10/11/2023 04:55 AM CO2 23 10/13/2023 05:15 AM CO2 19 (L) 10/12/2023 05:05 AM CO2 21 (L) 10/11/2023 04:55 AM ALBUMIN 3.6 10/13/2023 05:15 AM ALBUMIN 3.7 10/12/2023 05:05 AM ALBUMIN 4.0 10/10/2023 09:10 PM CALCIUM 8.7 10/13/2023 05:15 AM CALCIUM 8.5 10/12/2023 05:05 AM CALCIUM 8.6 10/10/2023 09:10 PM PHOSPHORUS 2.8 10/13/2023 05:15 AM PHOSPHORUS 2.3 (L) 10/12/2023 05:05 AM MAGNESIUM 2.1 10/13/2023 05:15 AM MAGNESIUM 2.0 10/12/2023 05:05 AM IMPRESSION /PLAN: PRINCIPAL PROBLEM Pneumonia Principal Problem: Pneumonia Active Problems: Febrile Tachycardia Hypokalemia Hypoxia Metabolic acidosis Chest pain on breathing Hypophosphatemia Class 3 severe obesity due to excess calories with body mass index (BMI) of 45.0 to 49.9 in adult Lactate blood increase I spent a total of 5 minutes in the management of this patient. The details of my visit are listed in the document above. Associated attestation - Marilee Dallas DO - 10/14/2023 11:08 AM EDT Patient seen and examined independently 10/13/23. Meds, labs, and radiographs reviewed. Lungs coarse and heart tones regular on exam. Lactate 4.6 - 5.0 - 4.2 - 3.6 - 3.7 WBC 15.7 CRP 16.1- 35.0 CO2 23 ABG reviewed - Component Ref Range & Units 10/13/23 1115 SAMPLE SITE RIGHT RADIAL ALLENS TEST POSITIVE Patient Diagnosis SOB PATIENT PO2 SETTINGS 21 O2 Device ROOM AIR pH Arterial 7.350 - 7.450 7.52 High pCO2 Arterial 35 - 45 mmHg 30 Low pO2 Arterial 80 - 100 mmHg 65 Low HCO3 22 - 26 mEq/L 24.5 Base Excess 0 - 2 mEq/L 2.2 High CTHB g/dl 11.6 % O2 HGB % 93.1 sO2 (O2 Saturation) 95 - 100 % 95.1 Carboxyhemoglobin % 1.2 MetHB Arterial % 0.9 CXR reviewed- IMPRESSION: 1. Pulmonary hypoventilation. 2. Airspace consolidation in both lung bases is seen obscuring the hemidiaphragms. Findings are suggestive of potential bilateral pneumonia. Associated effusion is not excluded. There is not a great deal of change from the exam of one day prior. Blood CX NEG TD. All questions and concerns addressed w/ patient at BS in regard to plan of care. Iagree with assessments and plan of care. I personally spent >50% of the total time spent of 15 min on this date's billable encounter including all of the MDM for this encounter. * Marilee Dallas, DO - 10/12/2023 12:41 PM EDT INTERVAL HISTORY Patient seen and examined independently. Meds, labs, and radiographs reviewed. CT chest reviewed- IMPRESSION: Bilateral multifocal infiltrates. Tiny right pleural effusion. Mild cardiomegaly. +D Dimer and CTA reviewed- IMPRESSION: 1. No definite pulmonary artery embolus or thrombus although assessment of the distal vessels is limited as noted above. No evidence of right ventricular strain. 2. Worsening lung parikh with developing groundglass density in the upper and mid lungs, worsening consolidation lung bases right greater than left. [place] to be inflammatory. 3. Small right pleural effusion slightly increased. All questions and concerns addressed w/ patient and family at BS in regard to plan of care. CURRENT HOSPITALIZATION/ICU LOS: Admit Date: 10/10/2023 OBJECTIVE FINDINGS: Vital Signs (24hrs): Temp: [96.7 F (35.9 C)-98.3 F (36.8 C)] 98.3 F (36.8 C) Pulse (Heart Rate): [104-125] 120 Resp Rate: [16-18] 16 BP: (122-167)/(63-94) 167/85 O2 Sat (%): [92 %-100 %] 93 % Weight: [120.6 kg (265 lb 12.8 oz)-120.8 kg (266 lb 4.8 oz)] 120.6 kg (265 lb 12.8 oz) (my read) Ventilation/Oxygen Therapy (24hrs): Oxygen Therapy O2 Sat (%): 93 % O2 Device: room air Flow (L/min): 1 Ventilator Settings and Monitoring (Adult/Peds) Total Respiratory Rate: 18 Lines/Drains/Airways/Wounds: Patient Lines/Drains/Airways Status Active Lines, Drains, Airways, & Wound Overview Name Placement date Placement time Site Days Peripheral IV Line - Single Lumen 10/10/232108 pink median cubital vein (antecubital fossa), left 20 gauge 10/10/232108 -- 1 Fluid Management (24hrs): No intake or output data in the 24 hours ending 10/12/23 [id number] PHYSICAL EXAM: Gen: Comfortable in bed. Lungs: Coarse crackles R>L to auscultation bilaterally. Heart: Tachy/Regular in rate and rhythm. Abd: Obese Soft and non-distended. Skin: No obvious rashes or cyanosis. EXT: No pedal edema. DIAGNOSTIC RESULTS/PROCEDURES: Imaging/Radiological Studies (my read): Dense RML/RLL PNA Lab Results Component Value Date/Time WBC 14.0 (H) 10/12/2023 05:05 AM WBC 9.1 10/11/2023 04:55 AM WBC 9.4 10/10/2023 09:10 PM HGB 11.9 (L) 10/12/2023 05:05 AM HGB 13.0 10/11/2023 04:55 AM HGB 12.9 10/10/2023 09:10 PM HCT 35.5 (L) 10/12/2023 05:05 AM HCT 39.3 10/11/2023 04:55 AM HCT 38.5 10/10/2023 09:10 PM PLATELET 292 10/12/2023 05:05 AM PLATELET 232 10/11/2023 04:55 AM PLATELET 264 10/10/2023 09:10 PM Lab Results Component Value Date/Time GLUCOSE 209 (H) 10/12/2023 05:05 AM GLUCOSE 239 (H) 10/11/2023 04:55 AM GLUCOSE 126 (H) 10/10/2023 09:10 PM BUN 13 10/12/2023 05:05 AM BUN 7 10/11/2023 04:55 AM BUN 7 10/10/2023 09:10 PM CREATSERUM 0.50 (L) 10/12/2023 05:05 AM CREATSERUM 0.50 (L) 10/11/2023 04:55 AM CREATSERUM 0.58 (L) 10/10/2023 09:10 PM SODIUM 137 10/12/2023 05:05 AM SODIUM 135 (L) 10/11/2023 04:55 AM SODIUM 134 (L) 10/10/2023 09:10 PM POTASSIUM 3.5 10/12/2023 05:05 AM POTASSIUM 3.3 (L) 10/11/2023 04:55 AM POTASSIUM 3.4 (L) 10/10/2023 09:10 PM CHLORIDE 109 (H) 10/12/2023 05:05 AM CHLORIDE 107 10/11/2023 04:55 AM CHLORIDE 104 10/10/2023 09:10 PM CO2 19 (L) 10/12/2023 05:05 AM CO2 21 (L) 10/11/2023 04:55 AM CO2 22 10/10/2023 09:10 PM ALBUMIN 3.7 10/12/2023 05:05 AM ALBUMIN 4.0 10/10/2023 09:10 PM CALCIUM 8.5 10/12/2023 05:05 AM CALCIUM 8.6 10/10/2023 09:10 PM PHOSPHORUS 2.3 (L) 10/12/2023 05:05 AM MAGNESIUM 2.0 10/12/2023 05:05 AM No results found for: PT, INR, PTT Additional Labs CO2 19 - CRP/Procal ordered. CX NEG TD. ASSESSMENT/PLAN: Principal Problem: Pneumonia - continue empiric Levaquin and solumedrol Active Problems: Febrile - afebrile last 24 hrs Tachycardia Hypoxia Hypokalemia Leukocytosis Metabolic Acidosis - check Lactate - Bicarb gtt added Chest pain - serial trop added Hypophosphatemia - replacing Obesity Class 3 - BMI 45.62 Code Status Full Code [facility]* Nursing Notes - Susi Rain RN - 10/14/2023 2:12 PM EDT Discharge instructions and education reviewed with pt, education provided for dx and new medications, printed education given, denies any questions, IV and tele removed [facility]07[facility] Miscellaneous Notes* Nursing Notes - Susi Rain RN - 10/14/2023 2:12 PM EDT Discharge instructions and education reviewed with pt, education provided for dx and new medications, printed education given, denies any questions, IV and tele removed * Nursing Notes - Machelle Garrett RN - 10/14/2023 6:10 AM EDT Up to use bathroom independently. No change in assessment. Resting quietly. Denies needs. * Nursing Notes - Machelle Garrett RN - 10/13/2023 11:18 PM EDT Sleeping in bed. Assessment done as charted without changes. Elijah Alfonso NP notified & new order received. PRN Labetalol given. Pt denies needs. * Nursing Notes - Machelle Garrett RN - 10/13/2023 8:15 PM EDT Awake, sitting up in chair playing game on her laptop. Assessment done as charted. Denies pain or questions at this time. * Nursing Notes - Stacy Daniel RN - 10/13/2023 4:26 AM EDT Patient resting in bed. Assessment unchanged from prior unless otherwise noted in flowsheets. Patient denies any needs. Call light within reach. * Nursing Notes - Stacy Daniel RN - 10/13/2023 12:27 AM EDT Patient resting in bed. Assessment unchanged from prior unless otherwise noted in flowsheets. Patient denies any needs. Call light within reach. * Nursing Notes - Calli Meyer RN - 10/12/2023 4:00 PM EDT Patient assessment unchanged from previous assessment. Any exceptions noted in flowsheets. Call light and personal items within reach. Patient denies any further needs. * Nursing Notes - Calli Meyer RN - 10/12/2023 12:00 PM EDT Patient assessment unchanged from previous assessment. Any exceptions noted in flowsheets. Call light and personal items within reach. Patient denies any further needs. * Nursing Notes - Stacy Daniel RN - 10/12/2023 4:24 AM EDT Patient resting in bed. Assessment unchanged from prior unless otherwise noted in flowsheets. Patient denies any needs. Call light within reach. * Nursing Notes - Stacy Daniel RN - 10/12/2023 12:37 AM EDT Patient resting in bed. Assessment unchanged from prior unless otherwise noted in flowsheets. Patient denies any needs. Call light within reach. * Nursing Notes - Calli Meyer RN - 10/11/2023 4:00 PM EDT Patient assessment unchanged from previous assessment. Any exceptions noted in flowsheets. Call light and personal items within reach. Patient denies any further needs. * Nursing Notes - Calli Meyer RN - 10/11/2023 12:00 PM EDT Patient assessment unchanged from previous assessment. Any exceptions noted in flowsheets. Call light and personal items within reach. Patient denies any further needs. * Assessment & Plan Note - PHILIP Acosta - 10/11/2023 11:42 AM EDT Associated Problem(s): Febrile Supportive care * Assessment & Plan Note - PHILIP Acosta - 10/11/2023 11:42 AM EDT Associated Problem(s): Acute hypoxic respiratory failure (Resolved 10/12/2023) Requiring 2 L nasal cannula for adequate oxygenation Continue to wean as tolerated Empiric antibiotics, IV steroids, and routine aerosols * Assessment & Plan Note - PHILIP Acosta - 10/11/2023 11:42 AM EDT Associated Problem(s): Pneumonia Empiric antibiotics Routine aerosols Supplemental oxygen for pulse ox greater than 92% * Nursing Notes - Stacy Daniel RN - 10/11/2023 4:07 AM EDT Patient resting in bed. Assessment unchanged from prior unless otherwise noted in flowsheets. Patient denies any needs. Call light within reach. documented in this [facility]07-23[facility]24 Hospital Discharge instructions* Discharge Instr - Activity* Susi Rain RN - 10/14/2023 12:39 PM EDT Resume normal activity as tolerated * Discharge Instr - Diet* Susi Rain RN - 10/14/2023 12:40 PM EDT Resume home diet as tolerated * Discharge Instr - Notify* Susi Rain RN - 10/14/2023 12:40 PM EDT With any questions concerns or worsening symptoms * Attachments The following attachments cannot be sent through [facility] Everywhere. * Labetalol Oral Tablet (LABETALOL - ORAL) ([place]) * prednisone ([place]) * Pneumonia ([place]) [facility]* Nursing Notes - Machelle Garrett RN - 10/14/2023 6:10 AM EDT Up to use bathroom independently. No change in assessment. Resting quietly. Denies needs. [facility]* Nursing Notes - Machelle Garrett RN - 10/13/2023 11:18 PM EDT Sleeping in bed. Assessment done as charted without changes. Elijah Alfonso NP notified & new order received. PRN Labetalol given. Pt denies needs. [facility]07-[facility] Nurse Note* Nursing Notes - Machelle Garrett RN - 10/13/2023 8:15 PM EDT Awake, sitting up in chair playing game on her laptop. Assessment done as charted. Denies pain or questions at this time. T [facility]07-[facility] Nurse Note* Nursing Notes - Stacy Daniel RN - 10/13/2023 4:26 AM EDT Patient resting in bed. Assessment unchanged from prior unless otherwise noted in flowsheets. Patient denies any needs. Call light within reach. T [facility] Note* Nursing Notes - Stacy Daniel RN - 10/13/2023 12:27 AM EDT Patient resting in bed. Assessment unchanged from prior unless otherwise noted in flowsheets. Patient denies any needs. Call light within reach. T [facility]07-[facility] Note* Nursing Notes - Calli Meyer RN - 10/12/2023 4:00 PM EDT Patient assessment unchanged from previous assessment. Any exceptions noted in flowsheets. Call light and personal items within reach. Patient denies any further needs. [facility]07-21-2024 Nurse Note* Nursing Notes - Calli Meyer RN - 10/12/2023 12:00 PM EDT Patient assessment unchanged from previous assessment. Any exceptions noted in flowsheets. Call light and personal items within reach. Patient denies any further needs. [facility]07-21-2024 Nurse Note* Nursing Notes - Stacy Daniel RN - 10/12/2023 4:24 AM EDT Patient resting in bed. Assessment unchanged from prior unless otherwise noted in flowsheets. Patient denies any needs. Call light within reach. [facility]07-21-2024 Nurse Note* Nursing Notes - Stacy Daniel RN - 10/12/2023 12:37 AM EDT Patient resting in bed. Assessment unchanged from prior unless otherwise noted in flowsheets. Patient denies any needs. Call light within reach. [facility]07-20-2024 Nurse Note* Nursing Notes - Calli Meyer RN - 10/11/2023 4:00 PM EDT Patient assessment unchanged from previous assessment. Any exceptions noted in flowsheets. Call light and personal items within reach. Patient denies any further needs. [facility]07-20-2024 Nurse Note* Nursing Notes - Calli Meyer RN - 10/11/2023 12:00 PM EDT Patient assessment unchanged from previous assessment. Any exceptions noted in flowsheets. Call light and personal items within reach. Patient denies any further needs. [facility]07-20-2024 Evaluation + Plan note* Assessment & Plan Note - PHILIP Acosta - 10/11/2023 11:42 AM EDTAssociated Problem(s): Febrile Supportive care [facility]07-20-2024 Evaluation + Plan note* Assessment & Plan Note - PHILIP Acosta - 10/11/2023 11:42 AM EDTAssociated Problem(s): Acute hypoxic respiratory failure (Resolved 10/12/2023) Requiring 2 L nasal cannula for adequate oxygenation Continue to wean as tolerated Empiric antibiotics, IV steroids, and routine aerosols [facility]07-20-2024 Evaluation + Plan note* Assessment & Plan Note - PHILIP Acosta - 10/11/2023 11:42 AM EDTAssociated Problem(s): Pneumonia Empiric antibiotics Routine aerosols Supplemental oxygen for pulse ox greater than 92% [facility]07-20-2024 History and physical note* PHILIP Acosta - 10/11/2023 8:46 AM EDT History and Physical Examination 10/10/2023 8:52 PM Chief Complaint Patient presents with Shortness of Breath Generalized Body Aches History of Present Illness: This is a 28-year-old female who presented in the emergency department for shortness of breath and generalized body aches this started as back pain last Friday in his continually gotten worse. Debbieoeheidy have a past medical history of asthma she denies tobacco or alcohol use. Additionally she denies any sick contacts. She endorses that she has been febrile with generalized body aches for the last several days and became severely short of breath yesterday prompting her to come to the emergency department. She does endorse frequent productive cough producing brownish yellow tinged sputum she denies any known aspiration at this time. Currently during this assessment she states she was feelingmuch improved she was no longer requiring oxygen, her fever has broke, and her cough has becoming productive unless frequent. Upon arrival to the emergency department she was found to have a temperature of 102.8 a heart rate of 124. On exertion her pulse ox did drop to 88%. After fluids and antipyretics her heart rate did decrease as well as her temperature. In the emergency department she was requiring 2 L nasal cannula for adequate oxygenation labs relatively unremarkable inflammatory markers were elevated CRP at 1:50a.m. 8.6 and sed rate of 58 protocol was negative. Past Medical History: Diagnosis Date Asthma No past surgical history on file. Social History Tobacco Use Smoking status: Never Smokeless tobacco: Never Substance Use Topics Alcohol use: Not Currently History reviewed. No pertinent family history. Medications Prior to Admission Medication Sig Dispense Refill Last Dose Cetirizine 10 MG tablet Take 1 tablet by mouth daily. 10/09/2023 at 2100 contraceptive, oral Take by mouth. Pt unsure of dosage. Pt reported Brian OCP 10/09/2023 at 2100 lamoTRIgine 100 MG tablet Take 2 tablets by mouth daily. 10/09/2023 at 2100 venlafaxine 37.5 MG Cap SR 24HR capsule XR Take 1 capsule by mouth daily. 10/09/2023 at 2100 Not on File Review of Systems: Ten systems reviewed and found to be negative unless otherwise stated in the history and present illness. PHYSICAL EXAM: Patient Vitals for the past 8 hrs: BP Temp Temp src Pulse SpO2 10/11/23 0725 127/70 96.8 F (36 C) Temporal 97 96 % General: Awake. No acute distress. HEENT: Normalcephalic, atraumatic. Pupils equal, round, reactive, to light and accomodation Oral mucosa moist, pink, intact without ulcers or lesions. Neuro: Cranial nerves 2-12 grossly intact upon seated examination. No focal defiects noted. Cardiovascular: Regular rate and rhythm, without murmurs, rubs, or gallops. Respiratory: Anterior and posterior bilateral Upper and Lower Lobes auscultated without wheezes, rales, or rhonchi, diminished, Room air, hoarse voice Gastrointestinal: Soft, obese, non-tender. Bowel sounds present x4 quadrants. Musculoskeletal: No clubbing or cyanosis, pulses palpable 2/2 distally. Skin: Warm, Dry, Intact. Physiatric: Patient awake, alert, orientedx3. Mood and affect appropriate. Diagnostics: Admission on 10/10/2023 Component Date Value WBC (WHITE BLOOD COUNT) 10/10/2023 9.4 RBC 10/10/2023 4.64 HEMOGLOBIN (HGB) 10/10/2023 12.9 HEMATOCRIT (HCT) 10/10/2023 38.5 MEAN CELL VOLUME 10/10/2023 82.8 Mean Cell HGB 10/10/2023 27.9 MEAN CELL HGB CONCENTRAT* 10/10/2023 33.6 RBC DISTRIBUTION 10/10/2023 14.7 (H) PLATELET COUNT 10/10/2023 264 MEAN PLATELET VOLUME 10/10/2023 7.7 DIFFERENTIAL TYPE 10/10/2023 AUTO DIFF NEUTROPHILS 10/10/2023 81.7 (H) LYMPHOCYTE 10/10/2023 12.9 (L) MONOCYTE % 10/10/2023 5.0 EOSINOPHIL % 10/10/2023 0.1 BASOPHIL % 10/10/2023 0.3 Absolute Neutrophil Count 10/10/2023 7.7 (H) LYMPHOCYTES, ABSOLUTE 10/10/2023 1.2 MONOCYTES, ABSOLUTE 10/10/2023 0.5 ABSOLUTE EOSINOPHIL COUNT 10/10/2023 0.0 ABSOLUTE BASOPHIL COUNT 10/10/2023 0.0 Glucose 10/10/2023 126 (H) BUN 10/10/2023 7 CREATININE SERUM 10/10/2023 0.58 (L) SODIUM 10/10/2023 134 (L) POTASSIUM 10/10/2023 3.4 (L) CHLORIDE 10/10/2023 104 CALCIUM 10/10/2023 8.6 PROTEIN, TOTAL 10/10/2023 7.2 Albumin 10/10/2023 4.0 BILIRUBIN, TOTAL 10/10/2023 0.3 AST 10/10/2023 24 ALKALINE PHOSPHATASE 10/10/2023 77 CARBON DIOXIDE (CO2) 10/10/2023 22 A/G Ratio 10/10/2023 1.3 ALT 10/10/2023 24 ESTIMATED GFR, NON AFRIC* 10/10/2023 130 ESTIMATED GFR, A* 10/10/2023 157 GFR COMMENT 10/10/2023 Average GFR for 30-39 years old = 107. SARS COV 2 RNA, QL REAL * 10/10/2023 NOT DETECTED NARRATIVE -1 10/10/2023 This test was performed using isothermal JADYN and has been approved as Emergency Use Authorization (EUA) for the qualitative detection [id number] nucleic acid. INFLUENZA A 10/10/2023 NEGATIVE INFLUENZA B 10/10/2023 NEGATIVE LACTATE 10/10/2023 2.0 BETA HCG (QUAL), SERUM 10/10/2023 NEGATIVE WBC (WHITE BLOOD COUNT) 10/11/2023 9.1 RBC 10/11/2023 4.63 HEMOGLOBIN (HGB) 10/11/2023 13.0 HEMATOCRIT (HCT) 10/11/2023 39.3 MEAN CELL VOLUME 10/11/2023 84.7 Mean Cell HGB 10/11/2023 28.1 MEAN CELL HGB CONCENTRAT* 10/11/2023 33.1 RBC DISTRIBUTION 10/11/2023 14.7 (H) PLATELET COUNT 10/11/2023 232 MEAN PLATELET VOLUME 10/11/2023 7.7 DIFFERENTIAL TYPE 10/11/2023 AUTO DIFF NEUTROPHILS 10/11/2023 87.8 (H) LYMPHOCYTE 10/11/2023 9.9 (L) MONOCYTE % 10/11/2023 2.1 EOSINOPHIL % 10/11/2023 0.0 BASOPHIL % 10/11/2023 0.2 Absolute Neutrophil Count 10/11/2023 8.0 (H) LYMPHOCYTES, ABSOLUTE 10/11/2023 0.9 (L) MONOCYTES, ABSOLUTE 10/11/2023 0.2 ABSOLUTE EOSINOPHIL COUNT 10/11/2023 0.0 ABSOLUTE BASOPHIL COUNT 10/11/2023 0.0 Glucose 10/11/2023 239 (H) BUN 10/11/2023 7 CREATININE SERUM 10/11/2023 0.50 (L) SODIUM 10/11/2023 135 (L) POTASSIUM 10/11/2023 3.3 (L) CHLORIDE 10/11/2023 107 CARBON DIOXIDE (CO2) 10/11/2023 21 (L) ESTIMATED GFR, NON AFRIC* 10/11/2023 154 ESTIMATED GFR, A* 10/11/2023 186 GFR COMMENT 10/11/2023 Average GFR for 30-39 years old = 107. PROCALCITONIN 10/11/2023 0.09 C-Reactive Protein 10/11/2023 158.6 (H) SEDIMENTATION RATE AUTOM* 10/11/2023 58 (H) Impression and Plan: Principal Problem: Pneumonia Active Problems: Febrile Tachycardia Acute hypoxic respiratory failure Hypokalemia Pneumonia Empiric antibiotics Routine aerosols Supplemental oxygen for pulse ox greater than 92% Acute hypoxic respiratory failure Requiring 2 L nasal cannula for adequate oxygenation Continue to wean as tolerated Empiric antibiotics, IV steroids, and routine aerosols Febrile Supportive care Code Status: Full Code Mirela Allen CNP completing HPI for Dr. Dallas 11 minutes spent of PHYSICAL DIRECTOR time including assessment, planning, and discussion with nursing staff and patient Please note Portions of this note utilized [employer] dictation software, please excuse any typographical or grammatical errors Associated attestation - Marilee Dallas DO - 10/12/2023 11:05 AM EDT Patient seen and examined independently 10/11/23. Meds, labs, and radiographs reviewed. +Cough/SOB/Hypoxia w/ fevers and chills. 102.8F 88% RA. All additional ROS NEG. NAD speaking in full sentences. HEENT NC/AT PERRLA MM moist w/o ulceration No TM or JVD. Lungs diminished w/ RLL crackles and heart tones regular on exam. Abdo Obese Soft NT/ND w/ BS. No LE edema or rash. No focal deficits noted on exam. +Tachycardia and Tachypnea. K 3.4 Lactate 2.0 Procal 0.09 CRP 158.6 CXR RLL infiltrate - check CT Chest. Levaquin and Solumedrol 80mg q 8 hrs. Await cx data.Volume expansion. All questions and concerns addressed w/ patient at BS in regard to plan of care. I agree with assessments and plan of care. I personally spent >50% of the total time spent of 30 min on this date's billable encounter including all of the MDM for this encounter. OBS ADMIT. [facility]07-[facility] History and physical note* Mirela Allen APRN-LORENA - 10/11/2023 8:46 AM EDT History and Physical Examination 10/10/2023 8:52 PM Chief Complaint Patient presents with Shortness of Breath Generalized Body Aches History of Present Illness: This is a 28-year-old female who presented in the emergency department for shortness of breath and generalized body aches this started as back pain last Friday in his continually gotten worse. Debbieoes have a past medical history of asthma she denies tobacco or alcohol use. Additionally she denies any sick contacts. She endorses that she has been febrile with generalized body aches for the last several days and became severely short of breath yesterday prompting her to come to the emergency department. She does endorse frequent productive cough producing brownish yellow tinged sputum she denies any known aspiration at this time. Currently during this assessment she states she was feelingmuch improved she was no longer requiring oxygen, her fever has broke, and her cough has becoming productive unless frequent. Upon arrival to the emergency department she was found to have a temperature of 102.8 a heart rate of 124. On exertion her pulse ox did drop to 88%. After fluids and antipyretics her heart rate did decrease as well as her temperature. In the emergency department she was requiring 2 L nasal cannula for adequate oxygenation labs relatively unremarkable inflammatory markers were elevated CRP at 1:50a.m. 8.6 and sed rate of 58 protocol was negative. Past Medical History: Diagnosis Date Asthma No past surgical history on file. Social History Tobacco Use Smoking status: Never Smokeless tobacco: Never Substance Use Topics Alcohol use: Not Currently History reviewed. No pertinent family history. Medications Prior to Admission Medication Sig Dispense Refill Last Dose Cetirizine 10 MG tablet Take 1 tablet by mouth daily. 10/09/2023 at 2100 contraceptive, oral Take by mouth. Pt unsure of dosage. Pt reported Brian OCP 10/09/2023 at 2100 lamoTRIgine 100 MG tablet Take 2 tablets by mouth daily. 10/09/2023 at 2100 venlafaxine 37.5 MG Cap SR 24HR capsule XR Take 1 capsule by mouth daily. 10/09/2023 at 2100 Not on File Review of Systems: Ten systems reviewed and found to be negative unless otherwise stated in the history and present illness. PHYSICAL EXAM: Patient Vitals for the past 8 hrs: BP Temp Temp src Pulse SpO2 10/11/23 0725 127/70 96.8 F (36 C) Temporal 97 96 % General: Awake. No acute distress. HEENT: Normalcephalic, atraumatic. Pupils equal, round, reactive, to light and accomodation Oral mucosa moist, pink, intact without ulcers or lesions. Neuro: Cranial nerves 2-12 grossly intact upon seated examination. No focal defiects noted. Cardiovascular: Regular rate and rhythm, without murmurs, rubs, or gallops. Respiratory: Anterior and posterior bilateral Upper and Lower Lobes auscultated without wheezes, rales, or rhonchi, diminished, Room air, hoarse voice Gastrointestinal: Soft, obese, non-tender. Bowel sounds present x4 quadrants. Musculoskeletal: No clubbing or cyanosis, pulses palpable 2/2 distally. Skin: Warm, Dry, Intact. Physiatric: Patient awake, alert, orientedx3. Mood and affect appropriate. Diagnostics: Admission on 10/10/2023 Component Date Value WBC (WHITE BLOOD COUNT) 10/10/2023 9.4 RBC 10/10/2023 4.64 HEMOGLOBIN (HGB) 10/10/2023 12.9 HEMATOCRIT (HCT) 10/10/2023 38.5 MEAN CELL VOLUME 10/10/2023 82.8 Mean Cell HGB 10/10/2023 27.9 MEAN CELL HGB CONCENTRAT* 10/10/2023 33.6 RBC DISTRIBUTION 10/10/2023 14.7 (H) PLATELET COUNT 10/10/2023 264 MEAN PLATELET VOLUME 10/10/2023 7.7 DIFFERENTIAL TYPE 10/10/2023 AUTO DIFF NEUTROPHILS 10/10/2023 81.7 (H) LYMPHOCYTE 10/10/2023 12.9 (L) MONOCYTE % 10/10/2023 5.0 EOSINOPHIL % 10/10/2023 0.1 BASOPHIL % 10/10/2023 0.3 Absolute Neutrophil Count 10/10/2023 7.7 (H) LYMPHOCYTES, ABSOLUTE 10/10/2023 1.2 MONOCYTES, ABSOLUTE 10/10/2023 0.5 ABSOLUTE EOSINOPHIL COUNT 10/10/2023 0.0 ABSOLUTE BASOPHIL COUNT 10/10/2023 0.0 Glucose 10/10/2023 126 (H) BUN 10/10/2023 7 CREATININE SERUM 10/10/2023 0.58 (L) SODIUM 10/10/2023 134 (L) POTASSIUM 10/10/2023 3.4 (L) CHLORIDE 10/10/2023 104 CALCIUM 10/10/2023 8.6 PROTEIN, TOTAL 10/10/2023 7.2 Albumin 10/10/2023 4.0 BILIRUBIN, TOTAL 10/10/2023 0.3 AST 10/10/2023 24 ALKALINE PHOSPHATASE 10/10/2023 77 CARBON DIOXIDE (CO2) 10/10/2023 22 A/G Ratio 10/10/2023 1.3 ALT 10/10/2023 24 ESTIMATED GFR, NON AFRIC* 10/10/2023 130 ESTIMATED GFR, A* 10/10/2023 157 GFR COMMENT 10/10/2023 Average GFR for 30-39 years old = 107. SARS COV 2 RNA, QL REAL * 10/10/2023 NOT DETECTED NARRATIVE -1 10/10/2023 This test was performed using isothermal JADYN and has been approved as Emergency Use Authorization (EUA) for the qualitative detection [id number] nucleic acid. INFLUENZA A 10/10/2023 NEGATIVE INFLUENZA B 10/10/2023 NEGATIVE LACTATE 10/10/2023 2.0 BETA HCG (QUAL), SERUM 10/10/2023 NEGATIVE WBC (WHITE BLOOD COUNT) 10/11/2023 9.1 RBC 10/11/2023 4.63 HEMOGLOBIN (HGB) 10/11/2023 13.0 HEMATOCRIT (HCT) 10/11/2023 39.3 MEAN CELL VOLUME 10/11/2023 84.7 Mean Cell HGB 10/11/2023 28.1 MEAN CELL HGB CONCENTRAT* 10/11/2023 33.1 RBC DISTRIBUTION 10/11/2023 14.7 (H) PLATELET COUNT 10/11/2023 232 MEAN PLATELET VOLUME 10/11/2023 7.7 DIFFERENTIAL TYPE 10/11/2023 AUTO DIFF NEUTROPHILS 10/11/2023 87.8 (H) LYMPHOCYTE 10/11/2023 9.9 (L) MONOCYTE % 10/11/2023 2.1 EOSINOPHIL % 10/11/2023 0.0 BASOPHIL % 10/11/2023 0.2 Absolute Neutrophil Count 10/11/2023 8.0 (H) LYMPHOCYTES, ABSOLUTE 10/11/2023 0.9 (L) MONOCYTES, ABSOLUTE 10/11/2023 0.2 ABSOLUTE EOSINOPHIL COUNT 10/11/2023 0.0 ABSOLUTE BASOPHIL COUNT 10/11/2023 0.0 Glucose 10/11/2023 239 (H) BUN 10/11/2023 7 CREATININE SERUM 10/11/2023 0.50 (L) SODIUM 10/11/2023 135 (L) POTASSIUM 10/11/2023 3.3 (L) CHLORIDE 10/11/2023 107 CARBON DIOXIDE (CO2) 10/11/2023 21 (L) ESTIMATED GFR, NON AFRIC* 10/11/2023 154 ESTIMATED GFR, A* 10/11/2023 186 GFR COMMENT 10/11/2023 Average GFR for 30-39 years old = 107. PROCALCITONIN 10/11/2023 0.09 C-Reactive Protein 10/11/2023 158.6 (H) SEDIMENTATION RATE AUTOM* 10/11/2023 58 (H) Impression and Plan: Principal Problem: Pneumonia Active Problems: Febrile Tachycardia Acute hypoxic respiratory failure Hypokalemia Pneumonia Empiric antibiotics Routine aerosols Supplemental oxygen for pulse ox greater than 92% Acute hypoxic respiratory failure Requiring 2 L nasal cannula for adequate oxygenation Continue to wean as tolerated Empiric antibiotics, IV steroids, and routine aerosols Febrile Supportive care Code Status: Full Code Mirela Allen CNP completing HPI for Dr. Dallas 11 minutes spent of PHYSICAL DIRECTOR time including assessment, planning, and discussion with nursing staff and patient Please note Portions of this note utilized [employer] dictation software, please excuse any typographical or grammatical errors Associated attestation - Marilee Dallas DO - 10/12/2023 11:05 AM EDT Patient seen and examined independently 10/11/23. Meds, labs, and radiographs reviewed. +Cough/SOB/Hypoxia w/ fevers and chills. 102.8F 88% RA. All additional ROS NEG. NAD speaking in full sentences. HEENT NC/AT PERRLA MM moist w/o ulceration No TM or JVD. Lungs diminished w/ RLL crackles and heart tones regular on exam. Abdo Obese Soft NT/ND w/ BS. No LE edema or rash. No focal deficits noted on exam. +Tachycardia and Tachypnea. K 3.4 Lactate 2.0 Procal 0.09 CRP 158.6 CXR RLL infiltrate - check CT Chest. Levaquin and Solumedrol 80mg q 8 hrs. Await cx data.Volume expansion. All questions and concerns addressed w/ patient at BS in regard to plan of care. I agree with assessments and plan of care. I personally spent >50% of the total time spent of 30 min on this date's billable encounter including all of the MDM for this encounter. OBS ADMIT. [facility]* Nursing Notes - Stacy Daniel RN - 10/11/2023 4:07 AM EDT Patient resting in bed. Assessment unchanged from prior unless otherwise noted in flowsheets. Patient denies any needs. Call light within reach. [facility] Emergency department Note* Lorena Marcial RN - 10/10/2023 10:56 PM EDT Report sheet tubed up to med surg at this time. Pt also prefers to keep shorts on at this time for comfort. [facility] Emergency [facility] Note* Lorena Marcial RN - 10/10/2023 10:56 PM EDT Report sheet tubed up to med surg at this time. Pt also prefers to keep shorts on at this time for comfort. * Reba Velasco RN - 10/10/2023 10:32 PM EDT Room assignment 3757. * Uzair Cabrera MD - 10/10/2023 9:02 PM EDT DEPARTMENT OF EMERGENCY MEDICINE CHIEF COMPLAINT Shortness of Breath and Generalized Body Aches HPI Anai Webber is a 28 y.o. female who presents with a few days of cough, fever, chills, body aches, and shortness of breath. Shortness of breath got worse today. No vomiting or diarrhea. No sore throat. She does have a history of asthma. She last took Tylenol at 3:00 p.m.. REVIEW OF SYSTEMS Review of Systems Constitutional: Positive fevers, Positive chills Eyes: No vision change, no drainage ENT: No ear pain, no sore throat Cardiovascular: No chest pain, no edema Respiratory: Positive shortness of breath, Positive cough Gastrointestinal: No vomiting, no diarrhea Genitourinary: No dysuria, no frequency Musculoskeletal: No joint pain, no joint swelling Integumentary: No rash, no itching Neurologic: Positive headache, no confusion Psychiatric: No anxiety, no depression PAST MEDICAL HISTORY Past Medical History: Diagnosis Date Asthma SURGICAL HISTORY No past surgical history on file. CURRENT MEDICATIONS Current Facility-Administered Medications Medication Dose Route Frequency Provider Last Rate Last Admin Acetaminophen (TYLENOL) tablet 975 mg 975 mg Oral Once Uzair Cabrera MD Ipratropium-albuterol (DUONEB) 0.5-2.5 (3) MG/3ML nebulizer solution 3 mL 3 mL Nebulization Once Uzair Cabrera MD Sodium chloride 0.9% IV solution 1,000 mL 1,000 mL Intravenous Once Uzair Cabrera MD No current outpatient medications on file. ALLERGIES Not on File FAMILY HISTORY History reviewed. No pertinent family history. SOCIAL HISTORY Social History Socioeconomic History Marital status: Spouse name: Not on file Number of children: Not on file Years of education: Not on file Highest education level: Not on file Occupational History Not on file Tobacco Use Smoking status: Never Smokeless tobacco: Never Vaping Use Vaping status: Never Used Substance and Sexual Activity Alcohol use: Not Currently Drug use: Never Sexual activity: Not on file Other Topics Concern Not on file Social History Narrative Not on file Social Determinants of Health Financial Resource Strain: Low Risk (02/23/2023) Received from [facility] Overall Financial Resource Strain (CARDIA) Difficulty of Paying Living Expenses: Not very hard Food Insecurity: No Food Insecurity (02/23/2023) Received from [facility] Hunger Vital Sign Worried About Running Out of Food in the Last Year: Never true Ran Out of Food in the Last Year: Never true Transportation Needs: Unknown (02/23/2023) [facility] PRAPARE - Transportation Lack of Transportation (Medical): Not on file Lack of Transportation (Non-Medical): No Physical Activity: Inactive (01/20/2023) Received from [facility] Exercise Vital Sign Days of Exercise per Week: 0 days Minutes of Exercise per Session: 0 min Stress: Not on file Social Connections: Not on file Intimate Partner Violence: Not At Risk (01/20/2023) Received from [facility] Humiliation, Afraid, Rape, and Kick questionnaire Fear of Current or Ex-Partner: No Emotionally Abused: No Physically Abused: No Sexually Abused: No Housing Stability: Unknown (02/23/2023) [facility] Housing Stability Vital Sign Unable to Pay for Housing in the Last Year: Not on file Number of Places Lived in the Last Year: Not on file Unstable Housing in the Last Year: No PHYSICAL EXAM BP 130/87 Pulse 124 Temp 102.8 F (39.3 C) (Oral) Resp 20 Ht 1.626 m (5' 4) SpO2 96% Smoking Status Never Physical Exam The patient is well-developed, obese, and ill in appearance. Head is atraumatic and normocephalic. Pupils are equal and reactive. Face is symmetric. Mucous membranes are dry. Neck is supple. Heart is tachycardic but regular. Lungs are coarse on the right. Abdomen is soft, nontender, nondistended. Skin is warm and dry. Extremities are warm and well perfused and without acute deformity. Neurologically, the patient is awake, alert, and without acute deficit. Psychiatrically, the patient is calm and cooperative. ED COURSE & MEDICAL DECISION MAKING Laboratory evaluation is unremarkable. Chest x-ray does appear to show a right- sided pneumonia. Patient does occasionally drop into the 80s and is now on nasal cannula oxygen. Blood cultures have been drawn. She has been given Rocephin and Zithromax for community-acquired pneumonia. She has been accepted for admission to Dr. Dallas Impression: 1. Community-acquired pneumonia Disposition: Admission Uzair Cabrera MD 10/10/232224 documented [facility] Emergency department Note* Reba Velasco RN - 10/10/2023 10:32 PM EDT Room assignment 3757. [facility] Physician Emergency department Note* Uzair Cabrera MD - 10/10/2023 9:02 PM EDT DEPARTMENT OF EMERGENCY MEDICINE CHIEF COMPLAINT Shortness of Breath and Generalized Body Aches HPI Anai Webber is a 28 y.o. female who presents with a few days of cough, fever, chills, body aches, and shortness of breath. Shortness of breath got worse today. No vomiting or diarrhea. No sore throat. She does have a history of asthma. She last took Tylenol at 3:00 p.m.. REVIEW OF SYSTEMS Review of Systems Constitutional: Positive fevers, Positive chills Eyes: No vision change, no drainage ENT: No ear pain, no sore throat Cardiovascular: No chest pain, no edema Respiratory: Positive shortness of breath, Positive cough Gastrointestinal: No vomiting, no diarrhea Genitourinary: No dysuria, no frequency Musculoskeletal: No joint pain, no joint swelling Integumentary: No rash, no itching Neurologic: Positive headache, no confusion Psychiatric: No anxiety, no depression PAST MEDICAL HISTORY Past Medical History: Diagnosis Date Asthma SURGICAL HISTORY No past surgical history on file. CURRENT MEDICATIONS Current Facility-Administered Medications Medication Dose Route Frequency Provider Last Rate Last Admin Acetaminophen (TYLENOL) tablet 975 mg 975 mg Oral Once Uzair Cabrera MD Ipratropium-albuterol (DUONEB) 0.5-2.5 (3) MG/3ML nebulizer solution 3 mL 3 mL Nebulization Once Uzair Cabrera MD Sodium chloride 0.9% IV solution 1,000 mL 1,000 mL Intravenous Once Uzair Cabrera MD No current outpatient medications on file. ALLERGIES Not on File FAMILY HISTORY History reviewed. No pertinent family history. SOCIAL HISTORY Social History Socioeconomic History Marital status: Spouse name: Not on file Number of children: Not on file Years of education: Not on file Highest education level: Not on file Occupational History Not on file Tobacco Use Smoking status: Never Smokeless tobacco: Never Vaping Use Vaping status: Never Used Substance and Sexual Activity Alcohol use: Not Currently Drug use: Never Sexual activity: Not on file Other Topics Concern Not on file Social History Narrative Not on file Social Determinants of Health Financial Resource Strain: Low Risk (02/23/2023) Received from [facility] Overall Financial Resource Strain (CARDIA) Difficulty of Paying Living Expenses: Not very hard Food Insecurity: No Food Insecurity (02/23/2023) Received from [facility] Hunger Vital Sign Worried About Running Out of Food in the Last Year: Never true Ran Out of Food in the Last Year: Never true Transportation Needs: Unknown (02/23/2023) Received from [facility] PRAPARE - Transportation Lack of Transportation (Medical): Not on file Lack of Transportation (Non-Medical): No Physical Activity: Inactive (01/20/2023) Received from [facility] Exercise Vital Sign Days of Exercise per Week: 0 days Minutes of Exercise per Session: 0 min Stress: Not on file Social Connections: Not on file Intimate Partner Violence: Not At Risk (01/20/2023) Received from [facility] Humiliation, Afraid, Rape, and Kick questionnaire Fear of Current or Ex-Partner: No Emotionally Abused: No Physically Abused: No Sexually Abused: No Housing Stability: Unknown (02/23/2023) Received from [facility] Housing Stability Vital Sign Unable to Pay for Housing in the Last Year: Not on file Number of Places Lived in the Last Year: Not on file Unstable Housing in the Last Year: No PHYSICAL EXAM BP 130/87 Pulse 124 Temp 102.8 F (39.3 C) (Oral) Resp 20 Ht 1.626 m (5' 4) SpO2 96% Smoking Status Never Physical Exam The patient is well-developed, obese, and ill in appearance. Head is atraumatic and normocephalic. Pupils are equal and reactive. Face is symmetric. Mucous membranes are dry. Neck is supple. Heart is tachycardic but regular. Lungs are coarse on the right. Abdomen is soft, nontender, nondistended. Skin is warm and dry. Extremities are warm and well perfused and without acute deformity. Neurologically, the patient is awake, alert, and without acute deficit. Psychiatrically, the patient is calm and cooperative. ED COURSE & MEDICAL DECISION MAKING Laboratory evaluation is unremarkable. Chest x-ray does appear to show a right- sided pneumonia. Patient does occasionally drop into the 80s and is now on nasal cannula oxygen. Blood cultures have been drawn. She has been given Rocephin and Zithromax for community-acquired pneumonia. She has been accepted for admission to Dr. Dallas Impression: 1. Community-acquired pneumonia Disposition: Admission Uzair Cabrera MD 10/10/232224 [facility] Work Phone: 1(422) 346-987207-10-2023 Evaluation + Plan note Future Scheduled Tests Laboratory* TSH With T4fr Reflex 09/30/22 * Urinalysis 09/30/22 * Vitamin D 25 Hydroxy 09/30/22 * CBC w/ Auto Diff 09/30/22 * Comprehensive Metabolic Panel 09/30/22 * Lipid Panel 09/30/22 [facility]05-26-2023 Hospital Discharge instructions Follow Up Care 08/16/2022 08:24:49 With:LAURA PEREZ CNP Address: [facility] [address] [place] [address] When: Unknown [facility] [place] 03-21-2023 Discharge summary Author Tenisha Reyna [facility] June 11, 2022 8:42am Note Date/Time June 11, 2022 8:4 2am [facility] Medical Records Department [address] [place] [address] Instructions for Home/Discharge Instructions 06/11/22 0841 MR#: [id number] Acct: [id number] Name: ANAI WEBBER Rep #:[id number] : 1995 27 From: Tenisha Reyna CNM PCP: Lashaun PhysicianSheri Primary Status :ADM IN Discharge Instructions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 resolved Seasonal allergies resolved Supervision of high risk , antepartum resolved COVID-19 affecting in second trimester resolved Decreased movement res olved Hx of one miscarriage resolv ed Obesity affecting resolved resolved Supervision of high risk , antepartum resolved Bipolar disorder acute COVID-19 affecting in second trimester resolved Herpes simplex antibody positive resolved Obesity affecting resolved resolved Seasonal allergies resolved Supervision of high risk , antepartum resolved Bipolar disorder acute COVID-19 affecting in second trimester resolved Herpes simplex antibody positive resolved Obesity affecting resolved resolved Seasonal allergies resolved SROM (spontaneous rupture of membranes) resolved Supervision of high risk , antepartum resolved Hypertension affecting noneactive Care and examination of lactating mother noneactive Thyromegaly acute Vaginal discharge acute [facility] Work Phone: Evaluation note* Diagnosis Pneumonia- Primary Pneumonia, organism unspecified Pneumonia of both lungs due to infectious organism, unspecified part of lung Febrile Fever, unspecified Tachycardia Tachycardia, unspecified Acute hypoxic respiratory failure Hypokalemia Hypopotassemia Hypoxia Hypoxemia Metabolic acidosis Acidosis Chest pain on breathing Painful respiration Hypophosphatemia Disorders of phosphorus metabolism Class 3 severe obesity due to excess calories with body mass index (BMI) of 45.0 to 49.9 in adult Lactate blood increase Other nonspecific abnormal serum enzyme levels PNA (pneumonia) Pneumonia, organism unspecified [facility] Diagnosis Pneumonia- Primary Pneumonia, organism unspecified Pneumonia of both lungs due to infectious organism, unspecified part of lung Febrile Fever, unspecified Tachycardia Tachycardia, unspecified Acute hypoxic respiratory failure Hypokalemia Hypopotassemia Hypoxia Hypoxemia Metabolic acidosis Acidosis Chest pain on breathing Painful respiration Hypophosphatemia Disorders of phosphorus metabolism Class 3 severe obesity due to excess calories with body mass index (BMI) of 45.0 to 49.9 in adult Lactate blood increase Other nonspecific abnormal serum enzyme levels PNA (pneumonia) Pneumonia, organism unspecified Pneumonia of left lung due to infectious organism, unspecified part of lung- Primary Cough, unspecified type [facility] No data available for this section [facility] Instructions* Attachments The following attachments cannot be sent through Care Everywhere. * Pneumonia ([place]) [facility] No data available for this section [facility] Reason for referral (narrative)* Consultation (Routine) - New Request Specialty Diagnoses / Procedures Referred By Contac t Referred To Contact Pulmonary Disease Diagnoses Pneumonia of both lungs due to infectious organism, unspecified part of lung Shanon Jolly APRN-PHYSICAL DIRECTOR [address] [place] [address] Referral ID Status Reason Start Date Expiration Date V isits Requested Visits Authorized [id number] New Request 10/14/2023 11/07/2024 1 1 * MRI/CAT Scan (Routine) - New Request Specialty Diagnoses / Procedures Referred By Contac t Referred To Contact Diagnoses Pneumonia of both lungs due to infectious organism, unspecified part of lung Procedures CT CHEST WITHOUT CONTRAST CHG DIAGNOSTIC COMPUTED TOMOGRAPHY THORAX W/O CNTRST Mirela Allen APRN-PHYSICAL DIRECTOR [address] [place] [address] Referral ID Status Reason Start Date Expiration Date V isits Requested Visits Authorized [id number] New Request 10/12/2023 11/05/2024 1 1 * Unlisted Procedure Code (Routine) - New Request Specialty Diagnoses / Procedures Referred By Vicki gan Referred To Contact Procedures INPATIENT ADMISSION NOTIFICATION Marilee Dallas, [address] [place] [address] Referral ID Status Reason Start Date Expiration Date V isits Requested Visits Authorized [id number] New Request 10/10/2023 11/03/2024 1 1 [facility] ([facility]ative[facility]No reason for referral information availableWChildren's Hospital for Rehabilitation Work Phone: Summary Purpose Family History No Family History Records FoundUnknown Family Member Name Dates Details Family history of hypertensi on: Grandmother(V17.49, Z82.49) Status:Active Family history of diabetes m ellitus: Grandmother(V18.0, Z83.3) Status:Active Family history of cardiac di sorder: Grandmother(V17.49, Z82.49) Status:Active Family history of myocardial infarction: Grandmother(V17.3, Z82.49) Status:Active Family history of migraine h eadaches: Mother(V17.2, Z82.0) Status:Active Irregular heartbeat: Sister Status:Active Relationship Condition Age at Onset Recorded Date/T kizzy sister Family history of recurrent miscarriage U nknown grandmother Cardiac disease Unknown grandfather Cardiac disease Unknown Advance Directives No Advanced Directives Records Found Advance Directive Response Recorded Date/ Time Living Will No September 07, 2019 9:38am Power of Obstetrics Gynecology Md No September 06 9:38am Advance Directive Response Recorded Date/ Time Living Will No April 22 12:33pm Power of Obstetrics Gynecology Md No April 22, 2022 12:33pm Advance Directive Response Recorded Date/ Time Living Will No June 08, 2022 11:28pm Power of Obstetrics Gynecology Md No June 08 11:28pm Advance Directive Response Recorded Date/ Time Living Will No June 12, 2022 11:10am Power of Obstetrics Gynecology Md No June 12 11:10am Date Activated Date Inactivated Comments 10/10/2023 11:56 PM Date Activated Date Inactivated Comments 10/10/2023 11:56 PM Chief Complaint and Reason for Visit Chief Complaint NOB LMP 7/3 Reason for Visit Bipolar disorder Hx of one miscarriage Obesity affecting Seasonal allergies Supervision of high risk , antepartum Chief Complaint NOB LMP 7/3 E ORDERS 14 WK OB Reason for Visit Bipolar disorder Hx of one miscarriage Obesity affecting Seasonal allergies Supervision of high risk , antepartum Bipolar disorder Herpes simplex antibody positive Hx of one miscarriage Obesity affecting Seasonal allergies Supervision of high risk , antepartum Chief Complaint 24 WK OB LABS EORDER- GLUCOSE/ LOW MOVEMENT 28 WK OB/GLUCOSE LABS EORDER- GLUCOSE/ LOW MOVEMENT 30 WK OB 34 WK OB/NST 35 WK OB/NST 36 WK OB/NST GROWTH Reason for Visit Bipolar disorder Obesity affecting Supervision of high risk , antepartum Obesity affecting Supervision of high risk , antepartum Decreased movement Bipolar disorder COVID-19 affecting in second trimester Herpes simplex antibody positive Obesity affecting Supervision of high risk , antepartum Decreased movement Bipolar disorder COVID-19 affecting in second trimester Herpes simplex antibody positive Obesity affecting Seasonal allergies Supervision of high risk , antepartum Bipolar disorder COVID-19 affecting in second trimester Herpes simplex antibody positive Obesity affecting Seasonal allergies Supervision of high risk , antepartum Bipolar disorder COVID-19 affecting in second trimester Herpes simplex antibody positive Obesity affecting Seasonal allergies Supervision of high risk , antepartum Chief Complaint 24 WK OB LABS EORDER- GLUCOSE/ LOW MOVEMENT 28 WK OB/GLUCOSE LABS EORDER- GLUCOSE/ LOW MOVEMENT 30 WK OB 34 WK OB/NST 35 WK OB/NST 36 WK OB/NST GROWTH VAG LABOR VAG VAG VAG Reason for Visit Bipolar disorder Obesity affecting Supervision of high risk , antepartum Decreased movement Obesity affecting Supervision of high risk , antepartum Bipolar disorder COVID-19 affecting in second trimester Decreased movement Herpes simplex antibody positive Obesity affecting Supervision of high risk , antepartum Bipolar disorder COVID-19 affecting in second trimester Herpes simplex antibody positive Obesity affecting Seasonal allergies Supervision of high risk , antepartum Bipolar disorder COVID-19 affecting in second trimester Herpes simplex antibody positive Obesity affecting Seasonal allergies Supervision of high risk , antepartum Bipolar disorder COVID-19 affecting in second trimester Herpes simplex antibody positive Obesity affecting Seasonal allergies Supervision of high risk , antepartum Bipolar disorder Vaginal delivery COVID-19 affecting in second trimester Herpes simplex antibody positive Obesity affecting Seasonal allergies SROM (spontaneous rupture of membranes) Supervision of high risk , antepartum Chief Complaint LABS EORDER- GLUCOSE / LOW MOVEMENT 28 WK OB/GLUCOSE LABS EORDER- GLUCOSE/ LOW MOVEMENT 30 WK OB 34 WK OB/NST 35 WK OB/NST 36 WK OB/NST GROWTH VAG LABOR VAG VAG VAG PP BP CHECK nipple pain 6 WK PP Reason for Visit Decreased move ment Obesity affecting Supervision of high risk , antepartum Bipolar disorder COVID-19 affecting in second trimester Decreased movement Herpes simplex antibody positive Obesity affecting Supervision of high risk , antepartum Bipolar disorder COVID-19 affecting in second trimester Herpes simplex antibody positive Obesity affecting Seasonal allergies Supervision of high risk , antepartum Bipolar disorder COVID-19 affecting in second trimester Herpes simplex antibody positive Obesity affecting Seasonal allergies Supervision of high risk , antepartum COVID-19 affecting in second trimester Decreased movement Hx of one miscarriage Obesity affecting Supervision of high risk , antepartum Bipolar disorder COVID-19 affecting in second trimester Herpes simplex antibody positive Obesity affecting Seasonal allergies Supervision of high risk , antepartum Bipolar disorder COVID-19 affecting in second trimester Herpes simplex antibody positive Obesity affecting Seasonal allergies SROM (spontaneous rupture of membranes) Supervision of high risk , antepartum Hypertension affecting Care and examination of lactating mother Thyromegaly Vaginal discharge Chief Complaint Admit Date 14 wk ob March 26, 2024 1: 05pm 18 wk ob April 21, 2024 1 :35pm 26 wk ob *do not shorten June 16 2:10pm R/O LABOR June 21, 2024 8:4 0pm Reason for Visit Admit Date Bipolar disorder March 26, 2024 1: 05pm Depression March 26, 2024 1: 05pm History of herpes genitalis in father of unborn child March 26, 2024 1:05pm History of gestational hypert ension March 26, 2024 1:05pm Maternal anesthesia complication March 26, 2024 1:05pm Obesity affecting March 26, 2024 1:05pm March 26, 2024 1: 05pm Supervision of high-risk [facility] 2024 1:05pm Thyromegaly March 26, 2024 1: 05pm Bipolar disorder April 21, 2024 1 :35pm Depression April 21, 2024 1 :35pm History of herpes genitalis in father of unborn child April 21, 2024 1:35pm History of gestational hypert ension April 21, 2024 1:35pm Maternal anesthesia complication April 21, 2024 1:35pm Obesity affecting March 1:35pm April 21, 2024 1 :35pm Rubella non-immune status, antepartum [facility] 2024 1:35pm Supervision of high-risk [facility] 2024 1:35pm Thyromegaly April 21, 2024 1 :35pm Bipolar disorder June 16, 2024 2:1 0pm Depression June 16, 2024 2:1 0pm History of herpes genitalis in father of unborn child June 16, 2024 2:10pm History of gestational hypert ension June 16, 2024 2:10pm Maternal anesthesia complication May [id number] 2:10pm Obesity affecting June 16, 2024 2:10pm June 16, 2024 2:1 0pm Rubella non-immune status, antepartum [facility] 2024 2:10pm Supervision of high-risk June 16, 2024 2:10pm Thyromegaly June 16, 2024 2:1 0pm Chief Complaint Admit Date 14 wk ob March 26, 2024 1: 05pm 18 wk ob April 21, 2024 1 :35pm 26 wk ob *do not shorten June 16 2:10pm R/O LABOR June 21, 2024 8:4 0pm R/O LABOR June 22, 2024 12:3 8am 28wk ob June 30, 2024 2:24 pm Reason for Visit Admit Date Bipolar disorder March 26, 2024 1: 05pm Depression March 26, 2024 1: 05pm History of herpes genitalis in father of unborn child March 26, 2024 1:05pm History of gestational hypert ension March 26, 2024 1:05pm Maternal anesthesia complication March 26, 2024 1:05pm Obesity affecting March 26, 2024 1:05pm March 26, 2024 1: 05pm Supervision of high-risk [place] 2024 1:05pm Thyromegaly March 26, 2024 1: 05pm Bipolar disorder April 21, 2024 1 :35pm Depression April 21, 2024 1 :35pm History of herpes genitalis in father of unborn child April 21, 2024 1:35pm History of gestational hypert ension April 21, 2024 1:35pm Maternal anesthesia complication April 21, 2024 1:35pm Obesity affecting March 1:35pm April 21, 2024 1 :35pm Rubella non-immune status, [facility] 2024 1:35pm Supervision of high-risk Justin ry 2024 1:35pm Thyromegaly April 21, 2024 1 :35pm Bipolar disorder June 16, 2024 2:1 0pm Depression June 16, 2024 2:1 0pm History of herpes genitalis in father of unborn child June 16, 2024 2:10pm History of gestational hypert ension June 16, 2024 2:10pm Maternal anesthesia complication May [id number] 2:10pm Obesity affecting June 16, 2024 2:10pm June 16, 2024 2:1 0pm Rubella non-immune status, antepartum [facility] 2024 2:10pm Supervision of high-risk June 16, 2024 2:10pm Thyromegaly June 16, 2024 2:1 0pm Bipolar disorder June 21, 2024 8:4 0pm Depression June 21, 2024 8:4 0pm History of herpes genitalis in father of unborn child June 21, 2024 8:40pm History of gestational hypert ension June 21, 2024 8:40pm Maternal anesthesia complication May [id number] 8:40pm Obesity affecting June 21, 2024 8:40pm June 21, 2024 8:4 0pm Rubella non-immune status, antepartum [facility] 2024 8:40pm Supervision of high-risk June 21, 2024 8:40pm Thyromegaly June 21, 2024 8:4 0pm Vaginal bleeding during June 21, 2024 8:40pm Bipolar disorder June 30, 2024 2:24 pm Depression June 30, 2024 2:24 pm History of herpes genitalis in father of unborn child June 30, 2024 2:24pm History of gestational hypert ension June 30, 2024 2:24pm Maternal anesthesia complication June [id number] 2:24pm Obesity affecting June 30 2:24pm June 30, 2024 2:24 pm Rubella non-immune status, antepartum Ap ril 2024 2:24pm Supervision of high-risk June 30, 2024 2:24pm Thyromegaly June 30, 2024 2:24 pm Vaginal bleeding during June 30, 2024 2:24pm Chief Complaint Admit Date 18 wk ob April 21, 2024 1 :35pm 26 wk ob *do not shorten June 16 2:10pm R/O LABOR June 21, 2024 8:4 0pm R/O LABOR June 22, 2024 12:3 8am 28wk ob June 30, 2024 2:24 pm 30wk ob July 13, 2024 2:5 2pm 32wk ob July 27, 2024 1:32pm 32 WEEKS July 27, 2024 2:01pm Reason for Visit Admit Date Bipolar disorder April 21, 2024 1 :35pm Depression April 21, 2024 1 :35pm History of herpes genitalis in father of unborn child April 21, 2024 1:35pm History of gestational hypert ension April 21, 2024 1:35pm Maternal anesthesia complication April 21, 2024 1:35pm Obesity affecting March 1:35pm April 21, 2024 1 :35pm Rubella non-immune status, antepartum Ja nuary 2024 1:35pm Supervision of high-risk Janua ry 2024 1:35pm Thyromegaly April 21, 2024 1 :35pm Bipolar disorder June 16, 2024 2:1 0pm Depression June 16, 2024 2:1 0pm History of herpes genitalis in father of unborn child June 16, 2024 2:10pm History of gestational hypert ension June 16, 2024 2:10pm Maternal anesthesia complication May [id number] 2:10pm Obesity affecting June 16, 2024 2:10pm June 16, 2024 2:1 0pm Rubella non-immune status, antepartum [facility] 2024 2:10pm Supervision of high-risk June 16, 2024 2:10pm Thyromegaly June 16, 2024 2:1 0pm Bipolar disorder June 21, 2024 8:4 0pm Depression June 21, 2024 8:4 0pm History of herpes genitalis in father of unborn child June 21, 2024 8:40pm History of gestational hypert ension June 21, 2024 8:40pm Maternal anesthesia complication May [id number] 8:40pm Obesity affecting June 21, 2024 8:40pm June 21, 2024 8:4 0pm Rubella non-immune status, antepartum [facility] 2024 8:40pm Supervision of high-risk June 21, 2024 8:40pm Thyromegaly June 21, 2024 8:4 0pm Vaginal bleeding during June 21, 2024 8:40pm Bipolar disorder June 30, 2024 2:24 pm Depression June 30, 2024 2:24 pm History of herpes genitalis in father of unborn child June 30, 2024 2:24pm History of gestational hypert ension June 30, 2024 2:24pm Maternal anesthesia complication June [id number] 2:24pm Obesity affecting June 30, 2:24pm June 30, 2024 2:24 pm Rubella non-immune status, antepartum Ap ril 2024 2:24pm Supervision of high-risk June 30, 2024 2:24pm Thyromegaly June 30, 2024 2:24 pm Vaginal bleeding during June 30, 2024 2:24pm Bipolar disorder July 13, 2024 2:5 2pm Contraception management July 13 2:52pm Depression July 13, 2024 2:5 2pm History of herpes genitalis in father of unborn child July 13, 2024 2:52pm History of gestational hypert ension July 13, 2024 2:52pm Maternal anesthesia complication June [id number] 2:52pm Obesity affecting July 13, 2024 2:52pm July 13, 2024 2:5 2pm Rubella non-immune status, antepartum Ap ril 2024 2:52pm Supervision of high-risk July 13, 2024 2:52pm Thyromegaly July 13, 2024 2:5 2pm Bipolar disorder July 27, 2024 1:32pm Contraception management July 27, 2024 1 :32pm Depression July 27, 2024 1:32pm History of herpes genitalis in father of unborn child July 27, 2024 1:32pm History of gestational hypert ension July 27, 2024 1:32pm Maternal anesthesia complication July 1:32pm Obesity affecting July 27 1:32pm July 27, 2024 1:32pm Rubella non-immune status, antepartum Ma y 2024 1:32pm Supervision of high-risk July [id number] 1:32pm Thyromegaly July 27, 2024 1:32pm Chief Complaint Admit Date 18 wk ob April 21, 2024 1 :35pm 26 wk ob *do not shorten June 16 2:10pm R/O LABOR June 21, 2024 8:4 0pm R/O LABOR June 22, 2024 12:3 8am 28wk ob June 30, 2024 2:24 pm 30wk ob July 13, 2024 2:5 2pm 32wk ob July 27, 2024 1:32pm 32 WEEKS July 27, 2024 2:01pm 34wk ob August 11, 2024 10:05 am Reason for Visit Admit Date Bipolar disorder April 21, 2024 1 :35pm Depression April 21, 2024 1 :35pm History of herpes genitalis in father of unborn child April 21, 2024 1:35pm History of gestational hypert ension April 21, 2024 1:35pm Maternal anesthesia complication April 21, 2024 1:35pm Obesity affecting March 1:35pm April 21, 2024 1 :35pm Rubella non-immune status, antepartum Ja nuary 2024 1:35pm Supervision of high-risk Justin ry 2024 1:35pm Thyromegaly April 21, 2024 1 :35pm Bipolar disorder June 16, 2024 2:1 0pm Depression June 16, 2024 2:1 0pm History of herpes genitalis in father of unborn child June 16, 2024 2:10pm History of gestational hypert ension June 16, 2024 2:10pm Maternal anesthesia complication May [id number] 2:10pm Obesity affecting June 16, 2024 2:10pm June 16, 2024 2:1 0pm Rubella non-immune status, [facility]partum [facility] 2024 2:10pm Supervision of high-risk June 16, 2024 2:10pm Thyromegaly June 16, 2024 2:1 0pm Bipolar disorder June 21, 2024 8:4 0pm Depression June 21, 2024 8:4 0pm History of herpes genitalis in father of unborn child June 21, 2024 8:40pm History of gestational hypert ension June 21, 2024 8:40pm Maternal anesthesia complication May [id number] 8:40pm Obesity affecting June 21, 2024 8:40pm June 21, 2024 8:4 0pm Rubella non-immune status, antepartum [facility] 2024 8:40pm Supervision of high-risk June 21, 2024 8:40pm Thyromegaly June 21, 2024 8:4 0pm Vaginal bleeding during June 21, 2024 8:40pm Bipolar disorder June 30, 2024 2:24 pm Depression June 30, 2024 2:24 pm History of herpes genitalis in father of unborn child June 30, 2024 2:24pm History of gestational hypert ension June 30, 2024 2:24pm Maternal anesthesia complication June [id number] 2:24pm Obesity affecting June 30, 2:24pm June 30, 2024 2:24 pm Rubella non-immune status, antepartum Ap 2024 2:24pm Supervision of high-risk June 30, 2024 2:24pm Thyromegaly June 30, 2024 2:24 pm Vaginal bleeding during June 30, 2024 2:24pm Bipolar disorder July 13, 2024 2:5 2pm Contraception management July 13 2:52pm Depression July 13, 2024 2:5 2pm History of herpes genitalis in father of unborn child July 13, 2024 2:52pm History of gestational hypert ension July 13, 2024 2:52pm Maternal anesthesia complication June [id number] 2:52pm Obesity affecting July 13, 2024 2:52pm July 13, 2024 2:5 2pm Rubella non-immune status, antepartum Ap 2024 2:52pm Supervision of high-risk July 13, 2024 2:52pm Thyromegaly July 13, 2024 2:5 2pm Bipolar disorder July 27, 2024 1:32pm Contraception management July 27, 2024 1 :32pm Depression July 27, 2024 1:32pm History of herpes genitalis in father of unborn child July 27, 2024 1:32pm History of gestational hypert ension July 27, 2024 1:32pm Maternal anesthesia complication July 1:32pm Obesity affecting July 27 1:32pm July 27, 2024 1:32pm Rubella non-immune status, antepartum [facility] 2024 1:32pm Supervision of high-risk July [id number] 1:32pm Thyromegaly July 27, 2024 1:32pm Bipolar disorder August 11, 2024 10:05 am Contraception management August 11, 2024 10:05am Depression August 11, 2024 10:05 am History of herpes genitalis in father of unborn child August 11, 2024 10:05am History of gestational hypert ension August 11, 2024 10:05am Maternal anesthesia complication July 10:05am Obesity affecting August 11 10:05am August 11, 2024 10:05 am Rubella non-immune status, antepartum Ma y 2024 10:05am Supervision of high-risk July 232024 10:05am Thyromegaly August 11, 2024 10:05 am Chief Complaint Admit Date 18 wk ob April 21, 2024 1 :35pm 26 wk ob *do not shorten June 16 2:10pm R/O LABOR June 21, 2024 8:4 0pm R/O LABOR June 22, 2024 12:3 8am 28wk ob June 30, 2024 2:24 pm 30wk ob July 13, 2024 2:5 2pm 32wk ob July 27, 2024 1:32pm 32 WEEKS July 27, 2024 2:01pm 34wk ob August 11, 2024 10:05 am OBESITY DURING /EXTENDED MONITO RING August 11, 2024 11:46am Additional Source Comments INFORMATION SOURCE (unrecogn ized section and content) DATE CREATED AUTHOR 10/15/2017 [facility] DATE CREATED AUTHOR AUTHOR'S ORGANIZ ATION 12/26/2018 [facility] DATE CREATED AUTHOR AUTHOR'S ORGANIZ ATION 11/22/2021 [employer] DATE CREATED AUTHOR AUTHOR'S ORGANIZ ATION 11/22/2021 [facility] DATE CREATED AUTHOR AUTHOR'S ORGANIZ ATION 09/19/2022 [facility] DATE CREATED AUTHOR AUTHOR'S ORGANIZ ATION 11/05/2022 [facility] DATE CREATED AUTHOR AUTHOR'S ORGANIZ ATION 02/02/2023 [facility] DATE CREATED AUTHOR AUTHOR'S ORGANIZ ATION 05/21/2023 [facility] DATE CREATED AUTHOR AUTHOR'S ORGANIZ ATION 03/14/2024 [facility] DATE CREATED AUTHOR AUTHOR'S ORGANIZ ATION 05/08/2024 [facility] DATE CREATED AUTHOR AUTHOR'S ORGANIZ ATION 08/26/2024 [facility] Goals (unrecognized section and content) Goals may be documented in a n alternate sectionGoals may be documented in an alternate sectionGoals may be documented in an alternate section No data available for this section No data available for this section No data available for this section No data available for this section No data available for this sectionGoals may be documented in an alternate sectionGoals may be documented in an alternate sectionGoals may be documented in an alternate sectionGoals may be documented in an alternate sectionGoals may be documented in an alternate section Care Teams (unrecognized sec tion and content) Team Status: Active Member Role Status Dates No Primary Care Physician Family Provider Active No Primary Care Physician Primary Care Provider Active Team Status: Inactive Member Role Status Dates Fariba Cota JACQUARD LOOM FIXER, JACQUARD LOOM FIXER-C Attending Provider Active Team Status: Inactive Member Role Status Dates Dr. Nenita Wells MD Attending Provider Active Team Status: Active Member Role Status Dates Dr. Beverley Moncada DO Referring Provider, Othe r Provider Active Carolina Jones CNM Attending Provider, Other Provid er Active Team Status: Inactive Member Role Status Dates Dr. Beverley Moncada DO Attending Provider Activ e Team Status: Inactive Member Role Status Dates Dr. Beverley Moncada DO Attending Provider, Refe rring Provider Active Carolina Jones CNM Other Provider Active Team Status: Inactive Member Role Status Dates Fariba Cota NP, JACQUARD LOOM FIXER-C Attending Provider Active No Primary Care Physician Primary Care Provider Active Team Status: Active Member Role Status Dates No Primary Care Physician Primary Care Provider Active Dr. Nenita Wells MD Admit Provid er, Attending Provider, Referring Provider, Other Provider Active Team Status: Active Member Role Status Dates No Primary Care Physician Primary Care Provider Active Dr. Nenita Wells MD Admit Provid er, Referring Provider, Other Provider Active Fariba Cota NP, JACQUARD LOOM FIXER-C Attending Provider Active Team Status: Active Member Role Status Dates No Primary Care Physician Primary Care Provider Active Dr. Nenita Wells MD Admit Provid er, Referring Provider, Other Provider Active Tenisha Reyna CNM Attending Provider Active Team Status: Inactive Member Role Status Dates No Primary Care Physician Primary Care Provider Active Dr. Nenita Wells MD Admit Provid er, Attending Provider, Referring Provider Active Team Status: Inactive Member Role Status Dates No Primary Care Physician Primary Care Provider, Refer ring Provider Active Radha Sofia JACQUARD LOOM FIXER, JACQUARD LOOM FIXER-C Attending Provider Active Team Status: Inactive Member Role Status Dates No Primary Care Physician Primary Care Provider, Refer ring Provider Active Fariba Cota JACQUARD LOOM FIXER, JACQUARD LOOM FIXER-C Attending Provider Active Team Status: Inactive Member Role Status Dates No Primary Care Physician Primary Care Provider, Refer ring Provider Active Dr. Nenita Wells MD Attending Provider Active Team Status: Inactive Member Role Status Dates No Primary Care Physician Primary Care Provider Active Dr. Nenita Wells MD Attending Provider, Referr ing Provider Active [employer] Relationship Specialty Start Date End Date Laura Perez CNP [address] [place] [address] PCP - General Nurse Practitioner - Family 10/10/23 [employer] Relationship Specialty Start Date End Date Laura Perez CNP PCP - General Nurse Practitioner - Family 10/10/23 Team Status: Inactive Member Role Status Dates No Primary Care Physician Primary Care Provider Active Start: March 26, 2024 End: March 26, 2024 No Primary Care Physician Referring Provider Active Start: March 26, 2024 End: March 26, 2024 Dr. Nenita Wells MD Attending Provider Active Start: March 26, 2024 End: March 26, 2024 Team Status: Inactive Member Role Status Dates No Primary Care Physician Primary Care Provider Active Start: March 26, 2024 End: March 26, 2024 Dr. Nenita Wells MD Attending Provider Active Start: March 26, 2024 End: March 26, 2024 Dr. Nenita Wells MD Referring Provider Active Start: March 26, 2024 End: March 26, 2024 Team Status: Inactive Member Role Status Dates No Primary Care Physician Primary Care Provider Active Start: April 21, 2024 End: April 21, 2024 No Primary Care Physician Referring Provider Active Start: April 21, 2024 End: April 21, 2024 Fariba Cota NP, JACQUARD LOOM FIXER-C Attending Provider Active Start: April 21, 2024 End: April 21, 2024 Team Status: Inactive Member Role Status Dates No Primary Care Physician Primary Care Provider Active Start: June 16, 2024 End: June 16, 2024 No Primary Care Physician Referring Provider Active Start: June 16, 2024 End: June 16, 2024 Dr. Beverley Moncada DO Attending Provider Activ e Start: June 16, 2024 End: June 16, 2024 Team Status: Inactive Member Role Status Dates No Primary Care Physician Primary Care Provider Active Start: June 21, 2024 End: June 21, 2024 Dr. Nenita Wells MD Attending Provider Active Start: June 21, 2024 End: June 21, 2024 Dr. Nenita Wells MD Referring Provider Active Start: June 21, 2024 End: June 21, 2024 Team Status: Active Member Role Status Dates No Primary Care Physician Primary Care Provider Active Start: June 22, 2024 Dr. Nenita Wells MD Referring Provider Active Start: June 22, 2024 Dr. Nenita Wells MD Other Provider Active Start: June 22, 2024 Tenisha Reyna CNM Attending Provider Active S tart: June 22, 2024 Team Status: Inactive Member Role Status Dates No Primary Care Physician Primary Care Provider Active Start: June 30, 2024 End: June 30, 2024 No Primary Care Physician Referring Provider Active Start: June 30, 2024 End: June 30, 2024 Fariba Cota NP, JACQUARD LOOM FIXER-C Attending Provider Active Start: June 30, 2024 End: June 30, 2024 Team Status: Inactive Member Role Status Dates No Primary Care Physician Primary Care Provider Active Start: June 30, 2024 End: June 30, 2024 Dr. Nenita Wells MD Attending Provider Active Start: June 30, 2024 End: June 30, 2024 Dr. Nenita Wells MD Referring Provider Active Start: June 30, 2024 End: June 30, 2024 Team Status: Active Member Role Status Dates No Primary Care Physician Primary Care Provider Active Team Status: Inactive Member Role Status Dates No Primary Care Physician Primary Care Provider Active Start: July 13, 2024 End: July 13, 2024 No Primary Care Physician Referring Provider Active Start: July 13, 2024 End: July 13, 2024 Dr. Nenita Wells MD Attending Provider Active Start: July 13, 2024 End: July 13, 2024 Team Status: Inactive Member Role Status Dates No Primary Care Physician Primary Care Provider Active Start: July 27, 2024 End: July 27, 2024 No Primary Care Physician Referring Provider Active Start: July 27, 2024 End: July 27, 2024 Tenisha Reyna CNM Attending Provider Active S tart: July 27, 2024 End: July 27, 2024 Team Status: Inactive Member Role Status Dates No Primary Care Physician Primary Care Provider Active Start: July 27, 2024 End: July 27, 2024 Dr. Nenita Wells MD Attending Provider Active Start: July 27, 2024 End: July 27, 2024 Dr. Nenita Wells MD Referring Provider Active Start: July 27, 2024 End: July 27, 2024 Team Status: Inactive Member Role Status Dates No Primary Care Physician Primary Care Provider Active Start: August 11, 2024 End: August 11, 2024 No Primary Care Physician Referring Provider Active Start: August 11, 2024 End: August 11, 2024 Dr. Beverley Moncada DO Attending Provider Activ e Start: August 11, 2024 End: August 11, 2024 Team Status: Inactive Member Role Status Dates No Primary Care Physician Primary Care Provider Active Start: August 11, 2024 End: August 11, 2024 Tenisha Reyna CNM Referring Provider Active S tart: August 11, 2024 End: August 11, 2024 Dr. Beverley Moncada DO Attending Provider Activ e Start: August 11, 2024 End: August 11, 2024 Reason for Visit (unrecogniz ed section and content) Reason Comments Shortness of Breath Generalized Body Aches Specialty Diagnoses / Procedures Referred By Vicki t Referred To Contact Diagnoses Pneumonia PNA (pneumonia) Marilee Dallas, DO [address] [place] [address] [facility] Referral ID Status Reason Start Date Expiration Date Visits Re quested Visits Authorized [id number] 1 1 Reason Comments Cough Pt states that she h ada cough a few weeks ago and it went away , but returned a few days ago and is harsher. Pt denies any chest pain. Pt states that she has body aches , ear aches and SOB when moving around. Pt is 12 wks Scheduled Active and Recently Administ ered Medications (unrecognized section and content) Medication Order 10/12/2023 10/13/2023 10/14/2023 Acetylcysteine (NAC) capsule 1,200 mg 1,200 mg, Oral, EVERY 12 HOURS, First dose on 10/12/23 at 2100, Until Discontinued 2007 (Given - Provider: Stacy Daniel RN) 08 (Given - Provider: Calli Meyer, RN)2018 (Given - Provider: Machelle Garrett RN) 827 (Given - Provider: Susi Rain, JOANIE) albumin human 25 % injection 50 g (COMPLETED) 50 g, Intravenous, Administer over 60 Minutes, ONCE, 1 dose, On Fri10/13/23 at 0630, At [facility], in emergencies, administer as rapidly as necessary to improve clinical conditions. Rate of infusion is based on dose: 12.5g given over 30min, 25g given over 60min, 50g given over 120min., Indications: Fluid Resuscitation 0617 ($$New Bag$$ - Provider: Stacy Daniel RN)07 (Stopped - Provider: Calli Meyer RN) Ipratropium-albuterol (DUONEB) 0.5-2.5 (3) MG/3ML nebulizer solution 3 mL (CANCELED) 3 mL, Nebulization, EVERY 4 HOURS, First dose on Fri10/11/23 at 0045, Until Discontinued 252 (Given - Provider: Jhoana Kolb RCP)0734 (Given - Provider: Elsa Guzman RRT)113 (Given - Provider: Elsa Guzman RRT) Ipratropium-albuterol (DUONEB) 0.5-2.5 (3) MG/3ML nebulizer solution 3 mL 3 mL, Nebulization, EVERY 6 HOURS NON-STANDARD, First dose (after last modification) on Fri10/12/23 at 1900, Until Discontinued 1911 (Given - Provider: Roxana Hamm RRT) 001 (Given - Provider: Roxana Hamm RRT)727 (Given - Provider: Brooke Amaro RRT)1333 (Given - Provider: Brooke Amaro RRT)1914 (Given - Provider: Roxana Hamm RRT) 0034 (Given - Provider: Roxana Hamm RRT)0737 (Given - Provider: Elsa Guzman RRT)1202 (Given - Provider: Elsa Guzman RRT) Labetalol (NORMODYNE) tablet 200 mg 200 mg, Oral, EVERY 12 HOURS, First dose on Fri10/14/23 at 0900, Until Discontinued 827 (Given - Provider: Susi Rain RN) Lactated ringers IV solution 1,000 mL (COMPLETED) 1,000 mL, Intravenous, ONCE, 1 dose, On 10/12/23 at 1445 1426 ($$New Bag$$ - Provider: Calli Meyer RN)1600 (Stopped - Provider: Calli Meyer RN) lamoTRIgine (laMICtal) tablet 200 mg 200 mg, Oral, DAILY, First dose on 10/11/23 at 0945, Until Discontinued 0855 (Given - Provider: Calli Meyer RN) 0815 (Given - Provider: Calli Meyer RN) 0829 (Given - Provider: Susi Rain RN) levoFLOXacin (LEVAQUIN) 750 mg in dextrose 5% premix IVPB (CANCELED) 750 mg, Intravenous, Administer over 90 Minutes, EVERY 24 HOURS, First dose on 10/11/23 at 1230, Until Discontinued 1305 ($$New Bag$$ - Provider: Calli Meyer RN)1435 (Stopped - Provider: Calli Meyer RN) levoFLOXacin (LEVAQUIN) tablet 750 mg 750 mg, Oral, DAILY, First dose on 10/13/23 at 1015, Until Discontinued, Avoid antacid, iron, dairy, sucralfate, and tube feed administration for 1 hour before and 2 hours after dose. 1027 (Given - Provider: Calli Meyer RN) 0828 (Given - Provider: Susi Rain RN) Loratadine (CLARITIN) tablet 10 mg 10 mg, Oral, DAILY, First dose on 10/11/23 at 0945, Until Discontinued 0855 (Given - Provider: Calli Meyer RN) 0817 (Not Given - Provider: Calli Meyer RN - Reason: Patient/family refused) 0828 (Given - Provider: Susi Rain RN) Magnesium sulfate 2 g/50 ml in sterile water premix IVPB 2 g 50 mL (total volume) 2 g, Intravenous, Administer over 4 Hours, DAILY, First dose on 10/12/23 at 0600, Until Discontinued, Give if magnesium is less than 2 on morning labs. Infuse at a rate of 0.5 gm/hour. 0638 (Not Given - Provider: Stacy Daniel RN - Reason: Order Parameters not met) 0637 (Not Given - Provider: Stacy Daniel RN - Reason: Order Parameters not met) 0611 (Not Given - Provider: Machelle Garrett RN - Reason: Order Parameters not met) methylPREDNISolone sodium succinate (SOLU-MEDROL) injection 80 mg 80 mg, Intravenous, EVERY 8 HOURS, First dose on 10/11/23 at 0000, Until Discontinued 0626 (Given - Provider: Stacy Daniel RN)1305 (Given - Provider: Calli Meyer RN)2206 (Given - Provider: Stacy Daniel RN) 0537 (Given - Provider: Stacy Daniel RN)1313 (Given - Provider: Calli Meyer, JOANIE)2159 (Given - Provider: Machelle Garrett RN) 0621 (Given - Provider: Machelle Garrett RN)1444 (Not Given - Provider: Susi Rain RN - Reason: IV access lost) Potassium chloride (K-DUR) tablet ER 40 mEq(Linked Group 1) 40 mEq, Oral, DAILY, First dose on 10/11/23 at 0900, Until Discontinued, Give if potassium is 3.1 to 3.4 on morning labs and patient is able to tolerate oral medications Swallow tablets whole; do not crush, chew, or suck on tablet. Tablet may also be broken in half and each half swallowed separately. 0638 (Not Given - Provider: Stacy Daniel RN - Reason: Order Parameters not met) 0637 (Not Given - Provider: Stacy Daniel RN - Reason: Order Parameters not met) 0612 (Not Given - Provider: Machelle Garrett RN - Reason: Order Parameters not met) Potassium chloride (K-DUR) tablet ER 40 mEq (COMPLETED) 40 mEq, Oral, ONCE, 1 dose, On 10/12/23 at 1330, Swallow tablets whole; do not crush, chew, or suck on tablet. Tablet may also be broken in half and each half swallowed separately. 1306 (Given - Provider: Calli Meyer RN) potassium chloride 40 mEq in 0.9% sodium chloride 500 ml IVPB(Linked Group 1) 40 mEq, Intravenous, at 125 mL/hr, Administer over 4 Hours, DAILY, First dose on 10/11/23 at 0900, Until Discontinued, Give if potassium is less than 3.1 on morning labs OR if potassium is 3.1 to 3.4 on morning labs and patient is UNABLE to tolerate oral medications 0638 (See Alternative - Provider: Stacy Daniel RN) 0637 (See Alternative - Provider: Stacy Daniel RN) 0612 (See Alternative - Provider: Machelle Garrett RN) Spironolactone (ALDACTONE) tablet 50 mg (COMPLETED) 50 mg, Oral, ONCE, 1 dose, On Fri10/14/23 at 0745, Max 400 mg/day. If given by enteral tube: Use RxCrush to prepare dose. 0828 (Given - Provider: Susi Rain, RN) Thiamine tablet 100 mg 100 mg, Oral, DAILY, First dose on Fri10/14/23 at 0900, Until Discontinued 0828 (Given - Provider: Susi Rain, JOANIE) venlafaxine (EFFEXOR-XR) capsule XR 37.5 mg 37.5 mg, Oral, DAILY, First dose on Fri10/11/23 at 0945, Until Discontinued, Slow release product. Do not chew or crush 0855 (Given - Provider: Calli Meyer RN) 0815 (Given - Provider: Calli Meyer RN) 0832 (Given - Provider: Susi Rain, JOANIE) Continuous Medication Order 10/12/2023 10/13/2023 10/14/2023 Sodium bicarbonate 150 mEq, with overfill 50 mL in Dextrose 5% 1,200 mL IV solution (CANCELED) Intravenous, at 75 mL/hr, CONTINUOUS, Starting on Fri10/12/23 at 1330, Until Fri10/13/23 at 1027 1305 ($$New Bag$$ - Provider: Calli Meyer RN)1841 (Rate/Dose Verify - Provider: Calli Meyer RN) 1412 (Stopped - Provider: Susi Rain RN) Sodium chloride 0.9% IV solution (CANCELED) Intravenous, at 75 mL/hr, CONTINUOUS, Starting on 10/11/23 at 0000, Until Fri10/12/23 at 1240 0342 ($$New Bag$$ - Provider: Stacy Daniel RN)0857 (Rate/Dose Verify - Provider: Calli Meyer RN)1017 (Stopped - Provider: Calli Meyer RN) PRN Medication Order 10/12/2023 10/13/2023 10/14/2023 Acetaminophen (TYLENOL) tablet 650 mg 650 mg, Oral, EVERY 4 HOURS NEEDED, Starting on Fri10/10/23 at 2356, Until Fri10/14/23 at 1737, Mild Pain, Oral temp > 100.4 F 1313 (Given - Provider: Calli Meyer, RN) alum/mag hydrox.-simethicone oral suspension 30 mL 30 mL, Oral, EVERY 6 HOURS NEEDED, Starting on 10/11/23 at 0843, Until Fri10/14/23 at 1737, Indigestion, Per 5 mL is equivalent to: (Alum-Mag Hydroxide 200-225 mg and Simethicone 20 mg) and (Alum-Mag Hydroxide 200-200 mg and Simethicone 20 mg) 1854 (Given - Provider: Calli Meyer, JOANIE) Docusate (COLACE) capsule 100 mg 100 mg, Oral, 2 TIMES DAILY NEEDED, Starting on 10/11/23 at 0843, Until Fri10/14/23 at 1737, Constipation 1st Line Ketorolac (TORADOL) injection 30 mg 30 mg, Intravenous, EVERY 6 HOURS NEEDED, Starting on Fri10/10/23 at 2356, Until Fri10/14/23 at 1737, Moderate Pain 0337 (Given - Provider: Stacy Daniel, RN)2009 (Given - Provider: Stacy Daniel RN) 2157 (Given - Provider: Machelle Garrett, JOANIE) Labetalol (NORMODYNE) injection 20 mg 20 mg, Intravenous, EVERY 4 HOURS NEEDED, Starting on Fri10/13/23 at 2318, Until Fri10/14/23 at 1737, systolic blood pressure greater than 160, Administration duration: up to 20 mg over 2 minutes. 2336 (Given - Provider: Machelle Garrett, JOANIE) 0621 (Given - Provider: Machelle Garrett, JOANIE)1101 (Given - Provider: Susi Rain RN) Ondansetron (ZOFRAN) tablet 4 mg(Linked Group 2) 4 mg, Oral, EVERY 6 HOURS NEEDED, Starting on 10/11/23 at 0843, Until Fri10/14/23 at 1737, Nausea / Vomiting Ondansetron 4mg/2ml (ZOFRAN) injection 4 mg(Linked Group 2) 4 mg, Intravenous, EVERY 6 HOURS NEEDED, Starting on 10/11/23 at 0843, Until Fri10/14/23 at 1737, Nausea / Vomiting Sodium chloride (PF) 0.9 % injection 5 mL 5 mL, Intravenous, ADMINISTER DIRECTED, Starting on 10/11/23 at 0843, Until Fri10/14/23 at 1737, Flush, per IV Care Guidelines Linked Groups Order Group 1: Potassium chloride (K-DUR) tablet ER 40 mEqJump to med 40 mEq, Oral, DAILY, First dose on 10/11/23 at 0900, Until Discontinued, Give if potassium is 3.1 to 3.4 on morning labs and patient is able to tolerate oral medications Swallow tablets whole; do not crush, chew, or suck on tablet. Tablet may also be broken in half and each half swallowed separately. Or potassium chloride 40 mEq in 0.9% sodium chloride 500 ml IVPBJump to med 40 mEq, Intravenous, at 125 mL/hr, Administer over 4 Hours, DAILY, First dose on 10/11/23 at 0900, Until Discontinued, Give if potassium is less than 3.1 on morning labs OR if potassium is 3.1 to 3.4 on morning labs and patient is UNABLE to tolerate oral medications Group 2: Ondansetron 4mg/2ml (ZOFRAN) injection 4 mgJump to med 4 mg, Intravenous, EVERY 6 HOURS NEEDED, Starting on 10/11/23 at 0843, Until Fri10/14/23 at 1737, Nausea / Vomiting Or Ondansetron (ZOFRAN) tablet 4 mgJump to med 4 mg, Oral, EVERY 6 HOURS NEEDED, Starting on 10/11/23 at 0843, Until Tu10/14/23 at 1737, Nausea / Vomiting FOR RECORDS PERTAINING TO PATIENTS WHO ARE OR HAVE BEEN ENROLLED IN A CHEMICAL DEPENDENCY/SUBSTANCEABUSE PROGRAM, SOME INFORMATION MAY BE OMITTED. This clinical summary was aggregated from multiple sources. Caution should be exercised in using it in the provision of clinical care. This summary normalizes information from multiple sources, and as a consequence, information in this document may materially change the coding, format and clinical context of patient data. In addition, data may be omitted in some cases. CLINICAL DECISIONS SHOULD BE BASED ON THE PRIMARY CLINICAL RECORDS. [facility] [employer] [facility]. provides no warranty or guarantee of the accuracy or completeness of information in this document.
== END | disposition home or self-care (01) ==
LOC: US 12:11
PROVIDERS: Referring Provider Advanced Practice Midwife; Visit Provider Advanced Practice Midwife
DX: O99.213 Obesity complicating pregnancy, third trimester (principal); E66.9 Obesity, unspecified; Z3A.36 36 weeks gestation of pregnancy
CPT/HCPCS: 76816; 76819; 87081

== ENCOUNTER → 2024-09-02 | Outpatient (CLI) | payer OTHER, SELFPAY ==
[2024-09-02 13:06] LABS: Glucose Challenge Gest 1H 50g 91 mg/dL (70-140)
--- OUTSIDE RECORDS SUMMARY | 2024-09-02 20:44 | XMS RPT_ITS | CCD ---
Author Organization [facility] Care Team Providers Care Adjuster And Inspector Name Role Phone FADILLON Jernigan Unavailable Unavailable MARISSA HOOPER Unavailable Unavailable FADILLON Jernigan Unavailable Unavailable MARISSA HOOPER Unavailable Unavailable Pending Provider Unavailable Unavailable Unavailable Unavailable Dr. Beverley Moncada Attending Provider [phone] LAURA PEREZ Primary Care Provider UnavailLAURA Renteria Referring Provider Unavailable Beata RESIDENTIAL CARE OFFICER, RESIDENTIAL CARE OFFICER-C Fariba Attending Provider [phone] Dr. Beverley Moncada Referring Provider [phone] Dr. Beverley Moncada Other Provider DEAN Jones Attending Provider DEAN Jones Other Provider Dr. Nenita Wells Attending Provider Dr. Beverley Moncada Attending Provider Care Physician, No Primary Primary Care Provider Unavailable Dr. Nenita Wells Admit Provider Dr. Nenita Wells Referring Provider Dr. Nenita Wells Other Provider DEAN Reyna Attending Provider Beata RESIDENTIAL CARE OFFICER, RESIDENTIAL CARE OFFICER-C Fariba Attending Provider Care Physician, No Primary Referring Provider Un available [place] RESIDENTIAL CARE OFFICER, RESIDENTIAL CARE OFFICER-C Radha Attending Provider LAURA PEREZ Primary Care Physician Pending, Provider Primary Care Unavailable Sebastien Del Rio Attending Unavailable Pending, Provider Primary Care Unavailable Aleida, Dr. Marilee Piña Attending Thanh Shin, Dr. Marilee Piña Referring Unavai labhenry Gudimella, Alexander Primary Care Physician SIDECORAL, LAURA W Attending Unavailable Gudimella, Alexander Attending Unavailable Gudimella, Alexander Attending Unavailable Gudimella, Alexander Attending Unavailable Gudimella, Alxeander Attending Unavailable Gudimella, Alexander Admitting Unavailable Gudimella, Alexander Attending Unavailable Gudimella, Alexander Referring Unavailable SIDELL, LAURA Referring Unavailable SIDELL, LAURA Primary Care Unavailable [place] RECRUITMENT SPECIALIST, Laura Primary Care Provider [phone] [place] RECRUITMENT SPECIALIST, Laura Primary Care Provider [phone] MARILEE DALLAS Attending Unavailable SIDELL, LAURA Primary Care Unavailable MARILEE DALLAS Admitting Unavailable LENARD SANTIAGO Attending Unavailable SELF, SELF Referring Unavailable SIDELL, LAURA Primary Care Unavailable IVANIA HAN Attending Unavailable SIDELL, LAURA W Primary Care Unavailable NENITA WELLS Referring Unavailabl e Care Physician, No Primary Primary Care Provider Unavailable Care Physician, No Primary Referring Provider Un available Dr. Nenita Wells MD Attending Provider Dr. Nenita Wells MD Referring Provider Fariba Martini Attending Provider [phone] Dr. Beverley Monacda DO Attending Provider Dr. Nenita Wells MD Other Provider [phone] Tenisha Reyna CNM Attending Provider [phone] Care Physician, No Primary Primary Care Provider Unavailable Care Physician, No Primary Referring Provider Un available Dr. Nenita Wells MD Attending Provider [phone] Dr. Nenita Wells MD Referring Provider [phone] Tenisha Reyna CNM Referring Provider [phone] Care Physician, No Primary Primary Care Provider Unavailable Care Physician, No Primary Referring Provider Un available Beata TURK-Fariba Schulte Attending Provider Dr. Beverley Moncada DO Other Provider [phone] LAURA PEREZ Primary Care Provider LAURA PEREZ Primary Care Provider Unavailabl e Care Physician, No Primary Referring Unava ilable Beverley Moncada Attending Unavailabl e Care Physician, No Primary Primary Care Unava ilable Care Physician, No Primary Primary Care Unava ilable Care Physician, No Primary Referring Unava ilable Tenisha Reyna Attending Unavailable Care Physician, No Primary Primary Care Unava ilable Care Physician, No Primary Referring Unava ilable Marcanthsolomon, Nenita Attending Unavailable Care Physician, No Primary Primary Care Unava ilable Marcanthony, Nenita Referring Unavailable Marcanthony, Nenita Attending Unavailable OOTDR KOSD Primary Care Unavailable Tenisha Ryena Referring Unavailable Tenisha Reyna Attending Unavailable Ajit, Nenita Attending Unavailable Marcmayra, Nenita Referring Unavailable Care Physician, No Primary Primary Care Unava ilable Beverley Moncada Attending UnavailTenisha Rachel Referring Unavailable Care Physician, No Primary Primary Care Unava ilable Care Physician, No Primary Primary Care Unava ilable Marcanthony, Nenita Referring Unavailable Marcanthony, Nenita Attending Unavailable Marcanthony, Nenita Attending Unavailable Care Physician, No Primary Primary Care Unava ilable Care Physician, No Primary Referring Unava ilable Marcmayra, Nenita Consulting Unavailable OOTDR KOSD Primary Care Unavailable Tenisha Reyna Referring Unavailable Tenisha Reyna Attending Unavailable Care Physician, No Primary Primary Care Unava ilable Tenisha Reyna Attending Unavailable Care Physician, No Primary Referring Unava ilable Care Physician, No Primary Referring Unava ilable Marcmayra, Nenita Attending Unavailable OOTDR KOSD Primary Care Unavailable Care Physician, No Primary Primary Care Unava ilable Marcanthony, Nenita Consulting Unavailable Marcanthony, Nenita Referring Unavailable Tenisha Reyna Attending Unavailable Tenisha Reyna Attending Unavailable Tenisha Reyna Referring Unavailable Care Physician, No Primary Referring Unava ilable OOTDR KOSD Primary Care Unavailable Tenisha Reyna Attending Unavailable Care Physician, No Primary Primary Care Unava ilable Care Physician, No Primary Referring Unava ilable Ajit, Nenita Attending Unavailable Care Physician, No Primary Primary Care Unava ilable Beverley Moncada Attending Unavailabl e Care Physician, No Primary Referring Unava ilable Beverley Moncada Attending Unavailabl e Beverley Moncada Consulting Unavailabl e Tenisha Reyna Referring Unavailable Care Physician, No Primary Primary Care Unava ilable Care Physician, No Primary Primary Care Unava ilable Care Physician, No Primary Referring Unava ilable Fariba Cota NP Attending Unavailable Care Physician, No Primary Primary Care Unava ilable Beverley Moncada Attending Unavailabl e Care Physician, No Primary Referring Unava ilable Care Physician, No Primary Primary Care Unava ilable Fariba Cota NP Attending Unavailable Care Physician, No Primary Referring Unava ilable Care Physician, No Primary Primary Care Unava ilable Tenisha Reyna Referring Unavailable Tenisha Reyna Attending Unavailable Nenita Wells Referring Unavailable Care Physician, No Primary Primary Care Unava ilable Nenita Wells Attending Unavailable Beata RESIDENTIAL CARE OFFICER-CFariba Referring Provider [phone] Allergies Allergy Classification Reported Allergen(s) Allergy Type Date of Onset Reaction(s) Facility (1 source) Penicillins Drug allergy (disorder) [facility] Rep[facility] (1 source) Penicillins; Translations: [Penicillins] Allergy to drug (finding) [facility] [address] [place] Work Phone: (1 source) Tdap; Translations: [Tdap] Allergy to drug (finding) [facility] [address] [employer] Work Phone: (13 sources) Amoxicillin Drug Allergy 2 Rash [facility] (14 sources) insect venom; Translations: [insect venom] Allergy to substance 2 unknown, Swelling [facility] Comment on above: Bee stings (13 sources) Pertussis Vaccines Allergy to substance 2 Other [facility] Comment on above: Unkonwn reaction. On ly had 1 vaccine due to some reaction- Has had a TDAP since and no reaction (6 sources) Chlorhexidine; Translations: [chlorhexidine containing compounds] Drug Allergy Eruption of skin (disorder) [facility] (6 sources) Penicillin; Translations: [penicillin] Drug Allergy Eruption (morphologic abnormality) [facility] (1 source) ALLERGIES NOT ON FILE; Translations: [ALLERGIES NOT ON FILE] Propensity to adverse reactions (disorder) [facility] (1 source) Amoxicillin Drug Allergy 5 [facility] Repository (1 source) Pertussis Vaccine Drug Allergy 5 [facility] Repository Medications Current Medications Medication Drug Class(es) [...] 5:14pm Start: 05-07-2019 take 1 capsule by [facility] once daily as needed Zyrtec Liquid Gels [...] OCP Active escitalopram 10 mg oral tablet (19 sources) Serotonin Reuptake Inhibitor Start: 08-28-19 take 1 tablet by mouth once daily escitalopram 10 mg Tab 10 mg = 1 tab(s), Oral, Daily, # 90 tab(s), Refills(s) 1, Pharmacy: [id number], 163, cm, 11/14/20 14:03:00 EDT, Height/Length [...] 2 minutes. melatonin 3 mg oral tablet (15 sources) Start: 05-07-2019 take 1 tablet by [...] 0 Start Date: 05/07/19 Status: Ordered Multivit 51-Dxhi-Ypumiw 1-Dha (Pnv-Dha) 27 mg iron-1 mg -300 mg capsule (2 sources) Start: 11-30-2021 Multivit 47-Ir on-Folate 1-Dha (Pnv-Dha) 27 mg iron-1 mg -300 mg capsule Active CAP PO November 30, 2021 12:00am Multivitamin With Iron tablet (8 sources) Start: 02-06-2024 Multivitamin W ith Iron [...] 03/10/2024 Discontinued sertraline 50 mg oral tablet (20 sources) Serotonin Reuptake Inhibitor Start: 03-26-2024 take [...] March 26, 2024 2:17pm Start: 03-13-2022 End: 11-15-2024 take 1 tablet by mouth once daily [...] bedtime), # 90 tab(s), Refills(s) 1, Pharmacy: [id number], 163, cm, 10/01/22 9:32:00 EDT, Height/Length Dosing, 111.7, kg, 10/01/22 9:32:00 EDT, Weight Dosing Start Date: 10/01/22 Status: Ordered Start: 06-07-2021 take 1 tablet by davonte once daily at bedtime traZODONE 50 mg Tab 50 mg = 1 tab(s), Oral, Once a day (at bedtime), # 90 tab(s), Refills(s) 1, Pharmacy: [id number], 163, cm, 11/14/20 14:03:00 EDT, Height/Length [...] 2100, Until Discontinued 20 ml albumin human, pen[facility] 250 mg/ml injection (1 source) Human Serum Albumin Start: 10-13-2023 End: 10-13-2023 50 g, Intravenous, Administer over 60 Minutes, ONCE, 1 dose, On Fri10/13/23 at 0630, At [facility], in emergencies, administer as rapidly as necessary [...] Oral, 2 TIMES DAILY NEEDED, Starting on Fri10/11/23 at 0843, Until Fri10/14/23 at 1737, Constipation 1st Line Norethindrone-E.Estra diol-Iron (13 sources) Estrogen Start: 08-04-2018 End: 11-30-2021 Norethindrone-E.Est radiol-Iron 1.5-30( tablet Discontinued 1 {tbl} PO DAILY August 04, 2018 12:00am November 30, 2021 11:18am Start: 08-04-2018 End: 11-30-2021 take 1 tablet by mouth once daily Norethindrone-E.Estradiol-Iron Discontin ued 1 TABLET PO DAILY August 04, 2018 12:00am November 30, 2021 11:18am L Norgest/E.Estradiol-E.Estrad (17 sources) Progestin, Estrogen, Progestin-containing Intrauterine Device Start: [...] / norethindrone acetate 1.5 mg oral tablet (20 sources) Estrogen Start: 12-31-2022 End: 02-06-2024 take 1 tablet by mouth once daily Norethindrone Ac-Eth Estradiol (Brian 1.5/30 (21)) 1.5-30 mg-mcg tablet Discontinued 1 {tbl} PO DAILY 63 November 11, 2023 1:31pm February 06, 2024 12:53pm take only active pills, discard inactive and start new pack immediately Start: 05-15-2021 Brian 1.5/30 o ral tablet 1 tab(s), Oral, Daily, 84 tab(s), Refill(s) 1, [facility], 163, cm, 11/14/20 14:03:00 EDT, Height/Length Dosing, 115.4, kg, 11/14/20 14:07:00 EDT, Weight Dosing Start Date: 05/15/21 Status: Ordered fluconazole 150 mg oral tablet (9 sources) Azole Antifungal Start: 07-17-2022 End: 07-30-2022 take 1 tablet by mouth once daily Fluconazole (Diflucan) 150 mg tablet Discontinued 150 mg PO DAILY 1 July 17, 2022 12:00am July 30, 2022 11:09am iohexol (OMNIPAQUE) 350 MG/ML injection 75 mL (1 source) Start: 10-11-2023 End: 10-11-2023 75 mL, Intravenous, ONCE, 1 dose, On Fri10/11/23 at 1715, Extravasation Risk, Radiology Procedure Iron (13 sources) Start: 12-07-2021 End: 07-30-2022 take 1 capsule by mouth once daily Pnv 008-Etyl-Rzmpky-Dha (Vitafol Fe Plus) 90 mg iron- 1 mg-200 mg capsule Discontinued 1 NMA PO DAILY December 07, 2021 12:00am July 30, 2022 11:10am Start: 12-07-2021 End: 07-30-2022 take 1 capsule by mouth once daily Pnv 252-Cnca-Zjrlmh-Dha (Vitafol Fe Plus) 90 mg iron- 1 mg-200 mg capsule Discontinued 1 CAP PO DAILY December 07, 2021 12:00am July 30, 2022 11:10am Start: 12-07-2021 take 1 capsule by [facility] once daily Pnv 818-Utca-Vwufep-Dha (Vitafol Fe Plus) 90 mg iron- 1 [...] dose on 10/11/23 at 0945, Until Discontinued Start: 05-18-2019 take 1 tablet by davonte once daily Lamotrigine 200 MG tablet Active 200 mg PO DAILY May 18, 2019 1:00am Start: 05-07-2016 lamoTRIgine 10 0 MG Oral Tablet Quantity: 30 Refills: 0 Ordered: 31-May-2016 DO Start : 07-May-2016 Active Start: 04-10-2016 lamoTRIgine 25 MG Oral Tablet Quantity: 60 Refills: 0 Ordered: 10-Apr-2016 DO Start : 10-Apr-2016 Active take 2 tablets by mo [facility] once daily lamoTRIgine 100 MG tablet Take [...] Minutes, EVERY 24 HOURS, First dose on Fri10/11/23 at 1230, Until Discontinued loratadine 10 mg [...] Intravenous, EVERY 8 HOURS, First dose on Fri10/11/23 at 0000, Until Discontinued Start: 10-10-2023 End: 10-10-2023 125 mg, Intravenous, ONCE, 1 dose, On Fri10/10/23 at 2245 mupirocin 0.02 mg/mg topical ointment (8 sources) RNA Synthetase Inhibitor Antibacterial Start: 09-04-2022 End: 02-06-2024 Mupirocin 2 % ointment Discontinued 1 NMA TOPICAL THREE TIMES A DAY September 04, 2022 12:00am February 06, 2024 12:53pm Apply 3 x per day to rash naproxen 500 mg oral tablet (13 sources) Nonsteroidal Anti-inflammatory Drug Start: 05-18-2019 End: 05-21-2019 take 1 tablet by mouth twice daily as needed for pain Naproxen 500 MG tablet Discontinued 500 mg PO TWICE DAILY NEEDED as needed for Pain Score 4-10/10 May 18, 2019 5:41pm May 21, 2019 5:14pm norethindrone 0.35 mg oral tablet (8 sources) Start: 08-22-2022 End: 09-23-2022 take 1 tablet by mouth once daily Norethindrone (Contraceptive) (Ortho Micronor) 0.35 mg tablet Discontinued 0.35 mg PO DAILY 90 August 22, 2022 12:00am September 23, 2022 11:31am ondansetron 4 mg disintegrating oral tablet (13 sources) Serotonin-3 Receptor Antagonist Start: 12-06-2021 End: [...] Active promethazine hydrochloride 12.5 mg oral tablet (20 sources) Phenothiazine Start: 02-18-2024 End: 06-21-2024 take [...] CONTINUOUS, Starting on 10/12/23 at 1330, Until Fri10/13/23 at 1027 20 ml sodium chloride 9 mg/ml injection (4 sources) Start: 10-11-2023 End: 10-14-2023 take 5 mL intravenously once 5 mL, Intravenous, ADMINISTER DIRECTED, Starting on 10/11/23 at 0843, Until Tu10/14/23 at 1737, Flush, per IV Care Guidelines Start: 10-11-2023 End: 10-12-2023 Intravenous, at 75 mL/hr, CO NTINUOUS, Starting on 10/11/23 at 0000, Until Fri10/12/23 at 1240 Start: 10-10-2023 End: 10-11-2023 75 [...] 37.5 mg, Oral, DAILY, First dose on 10/11/23 at 0945, Until Discontinued, Slow release product. Do not chew or crush Problems Active Problems Problem Classification Problem Date Documented Date Episodic/Chronic Acute bronchitis (1 source) Acute bronchitis; Translations: [Acute bronchitis] Episodic Allergic reactions (1 source) Allergy status to penicillin; Translations: [Allergy status to penicillin] Onset: 09-13-2022 Episodic Asthma (5 sources) Asthma 02-09-2012 Chronic Contraceptive and procreative management (20 sources) Patient encounter status; Translations: [Encounter for [...] Hemorrhage during ; abruptio placenta; placenta previa (20 sources) Bleeding from female genital tract during ; Translations: [Antepartum hemorrhage, unspecified, unspecified trimester] Onset: 06-30-2024 06-22-2024 Episodic Hypertension complicating ; childbirth and the puerperium (1 source) Unspecified maternal hypertension, unspecified trimester; Translations: [Unspecified hypertension complicating , childbirth, or the puerperium, unspecified as to episode of care or not applicable] 06-12-2022 Chronic Miscellaneous mental health disorders (8 sources) depression; Translations: [ depression] 02-06-2024 Episodic [...] Onset: 09-13-2022 Other aftercare (1 source) Other alf (current) drug therapy; Translations: [Other alf (current) drug therapy] Onset: 09-13-2022 Episodic Other [...] unspecified] Onset: 07-27-2024 Episodic Other complications of ; puerperium affecting management of mother (2 sources) Large for gestation age fetus 08-31-2024 Episodic Comment on above: 36 wk 97% AC, 92% EF W. Other complications of (20 sources) Maternal obesity complicating , childbirth and the puerperium, antepartum; Translations: [Obesity complicating , unspecified trimester] 04-22-2022 Chronic Comment on above: NywN0mCKE 45-needs w eekly NST/BPP at 34 weeks- needs 36 week US weekly nsts at 34 an d growth US 32 and 36 NrdE2rKAN 45-needs w eekly NST at 34 weeks- [...] Comment on above: PRR. , HITESH 5, boy,Emily Ball [id number], girl, Ernie ernandez HITESH 06/30/22, Jimmy Alvarado PRR. , HITESH 5, boy, Kj Kay, Christiano Other complications of (11 sources) Disease caused by 2019-nCoV; Translations: [Other viral diseases complicating , second trimester] 04-08-2022 Episodic Comment on above: Baby ASA daily. Grow th US 32 and 36 wk Other complications of (11 sources) Reduced movement; Translations: [Decreased movements, unspecified [...] equivocal. offer MMR after Other complications of (9 sources) data - finding; Translations: [Unspecified abnormal findings on screening of mother] 08-19-2024 Episodic Comment on above: bpp 6/8 on 08/11, tomás ctive prolonged nst monitoring Other complications of (2 sources) Supervision of other high risk pregnancies, unspecified trimester; Translations: [Supervision of other high risk pregnancies, unspecified trimester] Onset: 07-27-2024 Episodic Other complications of (2 sources) Unspecified abnormal [...] Onset: 06-30-2024 Episodic Other connective tissue disease (13 sources) Muscle pain; Translations: [Myalgia, unspecified site] 11-30-2021 Episodic Other connective tissue disease (13 sources) Musculoskeletal pain; Translations: [Myalgia, other site] 05-19-2019 Episodic Other connective tissue disease (1 source) Radial styloid tenosynovitis; Translations: [Radial styloid tenosynovitis [de Quervain]] Onset: 09-18-2022 Episodic Other connective tissue disease (1 source) Tenosynovitis of left radial styloid 09-18-2022 Episodic Other female genital disorders (9 sources) Vaginal discharge; Translations: [Other specified noninflammatory [...] growth NIPT low risk, nl an atomy Neg GBS NIPT low ris k, nl anatomy Other screening for suspected conditions (not mental disorders or infectious disease) (20 sources) Viral antibody level - finding; Translations: [Abnormal immunological findings in specimens from other organs, systems and tissues] Onset: 10-13-2023 Episodic Comment on above: Herpes simplex I + l ab, no hx of cold sores per pt Other upper respiratory disease (18 sources) Seasonal allergy; Translations: [Other seasonal allergic rhinitis] 11-30-2021 Chronic Comment on above: all year long Other upper respiratory disease (14 sources) Other seasonal allergic rhinitis; Translations: [Allergic rhinitis, cause unspecified] Chronic Other upper respiratory infections (1 source) Acute sinusitis; Translations: [Acute sinusitis, unspecified] Episodic Ovarian cyst (5 sources) Cyst of ovary 06-04-2013 Episodic Polyhydramnios and other problems of amniotic cavity (8 sources) Spontaneous rupture of membranes 06-09-2022 Episodic Residual codes; unclassified (1 source) Sleep apnea, unspecified; Translations: [Sleep apnea, unspecified] Onset: 05-13-2023 Chronic Residual codes; unclassified (1 source) Gestation period, 8 weeks; Translations: [ state, incidental] Episodic Residual codes; unclassified (9 sources) H/O: miscarriage; Translations: [Personal history of [...] Test Name Value Interpretation Reference Range Facility Rule out Beta Strep (Grp. B) on 08-28-2024 PATRICIA Group B Beta Streptococcus is not isolated. Normal [facility] Comment on above: Performed By: #### M [phone] #### [facility] [address] [place], [place], [address] Biophysical Prof W/O Non Str eson 08-26-2024 Biophysical Prof W/O Non Stres [facility] [address] [place], [place] [address] Biophysical Prof W/O Non Stres MR#: [id number] Acct: [id number] Name: ANAI WOO Rep #: [id number] : 1995 F 29 From: Maik Munoz DO PCP: Status: REG CLI Study: Biophysical Prof W/O Non Stres Date of Exam: 0 08/26/24 Exam# [id number] Ordering Dr: Tenisha Reyna CNM PROCEDURE: BIOPHYSICAL PROF W/O NON STRESS 08/26/2024 REASON FOR EXAM: OBESITY DURING TECHNIQUE: High resolution obstetric ultrasound performed using a 2D transducer. Standard views obtained, including biometry, anatomy survey, and Doppler studies. FINDINGS Number: Immediate prior exam was biophysical profile score cm from August 19, 2024 Position: Cephalic Placental Position: Anterior. Not low-lying Placental Abnormalities: None. Placenta is grade 1. DIMENSIONS: Biparietal Diameter: 9.5/38 weeks, 6 days Head Circumference: 33.6 cm/38 weeks 3 days Abdominal Circumference: 34.6 cm/30 weeks, 3 days Femur Length: 7.0 cm/35 weeks 5 days ESTIMATED WEIGHT: 3365 g plus or minus 502 g ESTIMATED WEIGHT PERCENTILE (24+ weeks): 90% ESTIMATED GESTATIONAL AGE: Baseline: 37 weeks, 6 days By Ultrasound: 37 weeks 6 days ESTIMATED DATE OF DELIVERY: Baseline: 619 2024 By Ultrasound: 619 2024 BIOPHYSICAL ASSESSMENT: Amniotic Fluid Volume: Within normal limits Amniotic Fluid Index: 13.2 cm (8-24 cm normal range) Cardiac Motion: 136 (average) Trunk and Limb Motion: Present. MATERNAL ANATOMY: Adnexa: Neither maternal ovary is successfully identified. Cervical Length (if measured): US/Biophysical Prof W/O Non Stres IMPRESSION: Biophysical profile score is 8/8. age by current and prior ultrasound: 37 weeks, 6 days. Estimated due date by current prior ultrasound: 09/11/2019 [facility] CC: DEAN Reyna; LAURA EPREZ Credit Risk Management Director: Signed Normal [facility] - Chemistry and C hemistry - challengeOrdered By: Nenita Wells on 08-26-2024 Glucose Ql (U) Negative [facility] - UrinalysisOrder ed By: Nenita Wells on 08-26-2024 Protein Ql (U) Negative [facility] OB Limited With Biometricson 08-26-2024 OB Limited With Biometrics [facility] [address] [place], [place] [id number] OB Limited With Biometrics MR#: [id number] Acct: [id number] Name: ANAI WOO Rep #: [id number] : 1995 F 29 From: Rodriguez snow MD PCP: Status: REG CLI Study: OB Limited With Biometrics Date of Exam: 08/26 Exam# [id number] Ordering Dr: Nenita Wells PROCEDURE: OB LIMITED WITH BIOMETRICS 08/26/2024 REASON FOR EXAM: GROWTH TECHNIQUE: High resolution obstetric ultrasound performed using a 2D transducer. Standard views obtained, including biometry, anatomy survey, and Doppler studies. COMPARISON: Prior study dated July 27, 2024. FINDINGS Number: 1 Position: Vertex Placental Position: Anterior and not low-lying. Placental Abnormalities: No evidence of previa. DIMENSIONS: Biparietal Diameter: 9.5 cm: 38 weeks and 6 days: 98 percentile/ Head Circumference: 33.6 cm: 38 weeks and 3 days: 73rd percentile/ Abdominal Circumference: 34.6 cm: 38 weeks and 3 days: 97 percentile/ Femur Length: 7 cm: 35 weeks and 5 days: 30 percentile/ ESTIMATED WEIGHT: 3315 g plus/-505 g ESTIMATED WEIGHT PERCENTILE (24+ weeks): 92 ESTIMATED GESTATIONAL AGE: Baseline: 36 weeks and 2 days By Ultrasound: 37 weeks and 6 days ESTIMATED DATE OF DELIVERY: Baseline: September 21, 2024 By Ultrasound: September 10, 2024 BIOPHYSICAL ASSESSMENT: Amniotic Fluid Volume: 4.8 cm Amniotic Fluid Index: 13.2 (8-24 cm normal range) Cardiac Motion: 136 beats per minute (average) Trunk and Limb Motion: Present. MATERNAL ANATOMY: Adnexa: Neither maternal ovary is successfully identified. US/OB Limited With Biometrics IMPRESSION: Single live intrauterine gestation with a mean gestational age of 37 weeks and 6 days. The measurements obtained today fall with the normal expected range. Reading Location: [place] [address] CC: ALURA PEREZ; Dr. Nenita Wells MD Credit Risk Management Director: Signed Normal [facility] Registration Scheduling Specialist Office Visit Reporton 08-26-2024 Registration Scheduling Specialist Office Visit Report [facility] [address], [address] [place] [address] OFFICE VISIT Date of Service: 08/26/24 MR#: [id number] Acct: [id number] Name: ANAI WOO Rep #: [id number] : 1995 Provider: Dr. Nenita husain MD Age/Sex: 29/F [place] [facility] [place]: Signed Intake Vital Signs 06/30/24 14:36 08/11/24 13:01 08/26/24 13:14 08/26/24 13:15 Height 5 ft 4 in 5 ft 4 in 5 ft 4 in 5 ft 4 in Weight: 281 lb 4 oz BMI 48.2 BP 119/80 Intake Visit Reasons: 36wk ob Choke Reamer Required: No Is patient in pain?: No Allergies insect venom Allergy (Intermediate, Verified 08/26/24 13:14) Swelling amoxicillin Allergy (Verified 08/26/24 13:14) Rash Pertussis Vaccines Allergy (Verified 08/26/24 13:14) Other Medications ???Medication ???Instructions ???Recorded ???Confirmed ???Type lamotrigine 200 mg tablet 200 mg PO DAILY 05/18/19 08/26/24 History cetirizine 10 mg tablet 10 mg PO DAILY 05/21/19 08/26/24 H istory multivitamin with iron 1 tab PO QDAY 02/06/24 08/26/24 Hi story sertraline 50 mg tablet (Zoloft) 100 mg PO QDAY 03/26/24 08/26/24 H istory Last Menstrual Period: 12/22/23 Zika: [...] 1 current occupational status: employed current occupation: [employer] current occupational exposures/hazards: No pets and animals: [...] 3-4 times per week duration: 30-45 minutes/day katherine/islam: None seatbelt use: always do you feel safe at home: Yes 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 Date Name GA/Weeks Outcome Route Bth Weight Infant Gen Labor Lgth Anesthesia Del Locatn Provider FOB 06/09/22 Finlee 37 live - full term 7#2 Female epidural [facility] rolo Alvarado Delivery Date: 06/09/22 Last Updated by: Sandy Encinas see problem list for complications, and 37 srom girl SM. HPI 36wk ob Details: ANAI WOO is a 29 year old who presents for routine OB visit. OB Visit HITESH Calculator Estimated Delivery Date Method Current WG Current Estimate 09/21/24 Ultrasound #1 36w 2d Other Estimates 09/27/24 LMP (Certain) 35w 3d Expected Delivery Route/Plan Labor Preferences- CB/BF classes: [...] -???-???-???-???-???-??? - Effaced St Visit Note 02/18/24 -???-???-???-???-?? (more content not included)... Normal [facility] Screening beta-hemolytic Str eptococcus cultureOrdered By: Nenita Wells on 08-26-2024 Beta-hemolytic Streptococcus culture Group B Beta Streptococcus is not isolated. [facility] Biophysical Prof W/O Non Str eson 08-19-2024 Biophysical Prof W/O Non Stres [facility] [address] [place] [address] Biophysical Prof W/O Non Stres MR#: [id number] Acct: [id number] Name: ANAI WOO Rep #: [id number] : 1995 F 29 From: Rodriguez snow MD PCP: LAURA PEREZ Status: REG CLI Study: Biophysical Prof W/O Non Stres Date of Exam: 0 08/19/24 Exam# [id number] Ordering Dr: Tenisha Reyna CNM PROCEDURE: BIOPHYSICAL [...] Stres IMPRESSION: Normal biophysical profile. Reading Location: [id number] CC: DEAN Reyna; LAURA PEREZ Credit Risk Management Director: Signed Normal [facility] OB Triage Physician Noteon 0 08-19-2024 OB Triage Physician Note [facility] Medical Records Department [address] [place] [address] OB Triage Physician Note 08/19/24 0020 MR#: [id number] Acct: [id number] Name: ANAI WOO Rep #: [id number] : 1995 29 From: Beverley Moncada DO PCP: Care Physician,No Primary Status:DEP CLI Y Location: [facility] HPI - General General Date of Admission: [...] 1 current occupational status: employed current occupation: [employer] current occupational exposures/hazards: No pets and animals: [...] 3-4 times per week duration: 30-45 minutes/day katherine/islam: None seatbelt use: always do you feel safe at home: Yes 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 Date Name GA/Weeks Outcome Route Bth Weight Gen Labor Lgth Anesthesia Del Locatn Provider FOB 06/09/22 Víctor 37 live - full term 7#2 Female epidural [facility] rolo Alvarado Delivery Date: 06/09/22 Last Updated [...] dates HITESH (more content not included)... Normal [facility] (ROM) Rupture Of Membraneson 08-11-2024 ROM Negative Normal Negative [facility] Comment on above: Result Comment: Amni otic fluid not present indicates No Rupture of Membranes at time of specimen collection. Performed By: #### L 205.1000 #### [facility] Laboratory [address] [place], [address] Biophysical Prof W/O Non Str eson 08-11-2024 Biophysical Prof W/O Non Stres [facility] [address] [place] [address] Biophysical Prof W/O Non Stres MR#: [id number] Acct: [id number] Name: ANAI WOO Rep #: [id number] : 1995 F 29 From: Rodriguez snow MD PCP: Care Physician,No Primary Status: REG CLI Study: Biophysical Prof W/O Non Stres Date of Exam: 0 08/11/24 Exam# [id number] Ordering Dr: Tenisha Reyna CNM PROCEDURE: BIOPHYSICAL [...] IMPRESSION: biophysical profile score: 6/8. Reading Location: [facility] CC: DEAN Reyna; No Primary Care Physician Credit Risk Management Director: Signed Normal [facility] Laboratory - Chemistry and C hemistry - challengeOrdered By: Beverley Vázquez on 08-11-2024 Glucose Ql (U) Negative [facility] Laboratory - UrinalysisOrder ed By: Beverley Vázquez on 08-11-2024 Protein Ql (U) Negative [facility] Registration Scheduling Specialist Office Visit Reporton 08-11-2024 Registration Scheduling Specialist Office Visit Report [facility] [address], [address] [place] [address] OFFICE VISIT Date of Service: 08/11/24 MR#: [id number] Acct: [id number] Name: ANAI WOO Rep #: [id number] : 1995 Provider: Dr. Beverley Zambrano DO Age/Sex: 29/F [place] [facility] [facility] [place]: Signed Intake Vital Signs 06/30/24 14:36 07/27/24 13:40 08/11/24 10:10 Height 5 ft 4 in 5 ft 4 in 5 ft 4 in Weight: 277 lb 8 oz BMI 47.6 BP 121/87 H Intake Visit Reasons: 34wk ob Choke Reamer Required: No Is patient in pain?: No [...] 1 current occupational status: employed current occupation: [employer] current occupational exposures/hazards: No pets and animals: [...] 3-4 times per week duration: 30-45 minutes/day katherine/islam: None seatbelt use: always do you feel safe at home: Yes 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 Date Name GA/Weeks Outcome Route Bth Weight Infant Gen Labor Lgth Anesthesia Del Locatn Provider FOB 06/09/22 Finlee 37 live - full term 7#2 Female epidural [facility] rolo Alvarado Delivery Date: 06/09/22 Last Updated [...] -???-???-???-???-???-??? -???-???-???-???-? (more content not included)... Normal [facility] Laboratory - Chemistry and C hemistry - challengeOrdered By: Tenisha Reyna on 07-27-2024 Glucose Ql (U) Negative [facility] Laboratory - UrinalysisOrder ed By: Tenisha Reyna on 07-27-2024 Protein Ql (U) Negative [facility] OB Limited With Biometricson 07-27-2024 OB Limited With Biometrics [facility] [address] [place] [address] OB Limited With Biometrics MR#: [id number] Acct: [id number] Name: ANAI WOO Rep #: [id number] : 1995 F 29 From: Nick Schreiber MD PCP: Care Physician,No Primary Status: REG CLI Study: OB Limited With Biometrics Date of Exam: 07/27 Exam# [id number] Ordering Dr: Nenita Wells PROCEDURE: OB LIMITED [...] represent a possible placental Pop. Reading Location: [id number] CC: Dr. Nenita Wells MD; No Primary Care Physician Credit Risk Management Director: Signed Normal [facility] Registration Scheduling Specialist Office Visit Reporton 07-27-2024 Registration Scheduling Specialist Office Visit Report [facility] [address], [address] [place] [address] OFFICE VISIT Date of Service: 07/27/24 MR#: [id number] Acct: [id number] Name: ANAI WOO Rep #: [id number] : 1995 Provider: DEAN Massey ams Age/Sex: 29/F Location: [facility] [place] Status: Signed Intake Vital Signs 06/16/24 14:12 07/13/24 14:55 07/27/24 13:40 Height 5 ft 4 in 5 ft 4 in 5 ft 4 in Weight: 278 lb 2 oz BMI 47.7 BP 126/86 H Intake Visit Reasons: 32wk ob Chief Complaint: 32wk OB Choke Reamer Required: No Is patient in pain?: No [...] 1 current occupational status: employed current occupation: [employer] current occupational exposures/hazards: No pets and animals: [...] 3-4 times per week duration: 30-45 minutes/day katherine/islam: None seatbelt use: always do you feel safe at home: Yes 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 Date Name GA/Weeks Outcome Route Bth Weight Infant Gen Labor Lgth Anesthesia Del Locatn Provider FOB 06/09/22 Finlee 37 live - full term 7#2 Female epidural [facility] rolo Alvarado Delivery Date: 06/09/22 Last Updated [...] -???-???-???-???-???-??? -???-???-???-???-??? (more content not included)... Normal [facility] Registration Scheduling Specialist Office Visit Reporton 07-13-2024 Registration Scheduling Specialist Office Visit Report [facility] [address], [address] [place] [address] OFFICE VISIT Date of Service: 07/13/24 MR#: [id number] Acct: [id number] Name: ANAI WOO Rep #: [id number] : 1995 Provider: Dr. Nenita husain MD Age/Sex: 29/F [place] [facility] [place]: Signed Intake Vital Signs 06/16/24 14:12 06/30/24 14:36 07/13/24 14:55 Height 5 ft 4 in 5 ft 4 in 5 ft 4 in Weight: 275 lb 6 oz BMI 47.2 BP 117/76 Intake Visit Reasons: 30wk ob Choke Reamer Required: No Is patient in pain?: No [...] 1 current occupational status: employed current occupation: [employer] current occupational exposures/hazards: No pets and animals: [...] 3-4 times per week duration: 30-45 minutes/day katherine/islam: None seatbelt use: always do you feel safe at home: Yes 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 Date Name GA/Weeks Outcome Route Bth Weight Gen Labor Lgth Anesthesia Del Locatn Provider FOB 06/09/22 Víctor 37 live - full term 7#2 Female epidural [facility] rolo Alvarado Delivery Date: 06/09/22 Last Updated [...] - 9w (more content not included)... Normal [facility] Absolute lymphocyte countOrd ered By: Beverley Vázquez on 06-30-2024 Lymphocytes Auto (Unsp spec) [#/Vol] 2.65 10*3/uL 0.83-4.51 [facility] Absolute neutrophil countOrd ered By: Beverley Vázquez on 06-30-2024 Neutrophils (Bld) [#/Vol] 9.7 10*3/uL High 2.0-7.7 [facility] Automated lymphocyte count a s percentage of total leukocytesOrdered By: Beverley Vázquez on 06-30-2024 Lymphocytes/100 WBC Auto (Unsp spec) 20.0 % 19-41 [facility] Basophil percentageOrdered B y: Beverley Vázquez on 06-30-2024 Basophils/100 WBC (Bld) 0.2 % 0-1 [facility] CBC W/Diff, Automatedon Absolute Lymph 2.65 X10 3/uL Normal 0.83-4.51 [facility] Comment on above: Performed By: #### L 3890.6006, L501.0250, L509.8002, L100.0100 ####[facility] [address] [place], [address] Absolute Neut 9.7 X10 3/uL High 2.0-7.7 [facility] Comment on above: Performed By: #### L 3890.6006, L501.0250, L509.8002, L100.0100 ####[facility] [address] [place], [address] Basophils/100 WBC (Bld) 0.2 % Normal 0-1 [facility] Comment on above: Performed By: #### L 3890.6006, L501.0250, L509.8002, L100.0100 ####[facility] [address] [place], [address] Eosinophils/100 WBC (Bld) 1.6 % Normal 0-5 [facility] Comment on above: Performed By: #### L 3890.6006, L501.0250, L509.8002, L100.0100 ####[facility] [address] [place], [address] Erythrocyte distribution width (RBC) [Ratio] 15.4 % High 11.6-14.6 [facility] Comment on above: Performed By: #### L 3890.6006, L501.0250, L509.8002, L100.0100 ####[facility] [address] [place], [address] Hematocrit (Bld) [Volume fraction] 39.7 % Normal 37-47 [facility] Comment on above: Performed By: #### L 3890.6006, L501.0250, L509.8002, L100.0100 ####[facility] [address] [place], [address] Hemoglobin (Bld) [Mass/Vol] 13.1 g/dL Normal 12.0-15.0 [facility] Comment on above: Performed By: #### L 3890.6006, L501.0250, L509.8002, L100.0100 ####[facility] [address] [place], [address] IG% 0.800 Normal 0.0-0.9 [facility] Comment on above: Result Comment: IG% - Immature Granulocytes (promyelocytes, myelocytes and metamyelocytes) > 1% indicates that a LEFT SHIFT is Present. Performed By: #### L 3890.6006, L501.0250, L509.8002, L100.0100 ####[facility] [address] [place], [address] Lymphocytes/100 WBC (Bld) 20.0 % Normal 19-41 [facility] Comment on above: Performed By: #### L 3890.6006, L501.0250, L509.8002, L100.0100 ####[facility] [address] [place], [address] MCH (RBC) [Entitic mass] 28.1 pg Normal 27.0-32.0 [facility] Comment on above: Performed By: #### L 3890.6006, L501.0250, L509.8002, L100.0100 ####[facility] [address] [place], [address] MCHC (RBC) [Mass/Vol] 33.0 g/dL Normal 32-36 [facility] Comment on above: Performed By: #### L 3890.6006, L501.0250, L509.8002, L100.0100 ####[facility] [address] [place], [address] MCV (RBC) [Entitic vol] 85.0 fL Normal 81-99 [facility] Comment on above: Performed By: #### L 3890.6006, L501.0250, L509.8002, L100.0100 ####[facility] [address] [place], [address] Monocytes/100 WBC (Bld) 4.3 % Normal 0-10 [facility] Comment on above: Performed By: #### L 3890.6006, L501.0250, L509.8002, L100.0100 ####[facility] [address] [place], [address] Neutrophils/100 WBC (Bld) 73.1 % High 47-70 [facility] Comment on above: Performed By: #### L 3890.6006, L501.0250, L509.8002, L100.0100 ####[facility] [address] [place], [address] Nucleated RBC (Bld) [#/Vol] 0 10*3/uL Normal 0-5 [facility] Comment on above: Performed By: #### L 3890.6006, L501.0250, L509.8002, L100.0100 ####[facility] [address] [place], [address] Platelet mean volume (Bld) [Entitic vol] 10.0 fL Normal 6.2-12.0 [facility] Comment on above: Performed By: #### L 3890.6006, L501.0250, L509.8002, L100.0100 ####[facility] [address] [place], [address] Platelets (Bld) [#/Vol] 303 10*3/uL Normal 150-450 [facility] Comment on above: Performed By: #### L 3890.6006, L501.0250, L509.8002, L100.0100 ####[facility] [address] [place], [address] RBC (Bld) [#/Vol] 4.67 10*6/uL Normal 4.2-5.4 [facility] Comment on above: Performed By: #### L 3890.6006, L501.0250, L509.8002, L100.0100 ####[facility] [address] [place], [address] RDW SD 46.7 fl High 35.1-43.9 [facility] Comment on above: Performed By: #### L 3890.6006, L501.0250, L509.8002, L100.0100 ####[facility] [address] [place], [address] WBC (Bld) [#/Vol] 13.3 10*3/uL High 4.4-11.0 [facility] Comment on above: Performed By: #### L 3890.6006, L501.0250, L509.8002, L100.0100 ####[facility] [address] [place], [address] Eosinophil percentageOrdered By: Beverley Vázquez on 06-30-2024 Eosinophils/100 WBC (Bld) 1.6 % 0-5 [facility] Erythrocyte distribution wid th (RBC) [Ratio]Ordered By: Beverley Vázquez on 06-30-2024 Erythrocyte distribution width (RBC) [Entitic vol] 46.7 fL High 35.1-43.9 [facility] Erythrocyte distribution wid th ratioOrdered By: Beverley Vázquez on 06-30-2024 Erythrocyte distribution width (RBC) [Ratio] 15.4 % High 11.6-14.6 [facility] Erythrocyte distribution wid th standard deviationOrdered By: Beverley Vázquez on 06-30-2024 Erythrocyte distribution width (RBC) [Ratio] 46.7 fl High 35.1-43.9 [facility] Glucose Challenge Gest 1H 50 aurelia 06-30-2024 GLU GEST 50g 1H 113 mg/dL Normal 70-140 [facility] Comment on above: Performed By: #### L 3890.6006, L501.0250, L509.8002, L100.0100 ####[facility] [address] [place], [place], [address] Glucose measurement at 2 amanda rs post-dose gestational glucose tolerance testOrdered By: Beverley Vázquez on 06-30-2024 Glucose [Mass/Vol] 113 mg/dL 70-140 [facility] HIVon 06-30-2024 HIV Non-Reactive Normal Nonreactive [facility] Comment on above: Result Comment: Non- Reactive Reactive Repeatedly reactive samples must be confirmed according to CDC recommended confirmatory algorithms. The subresults for either HIVAG or AHIV can be used as an aid in the selection of the confirmation algorithm for reactive samples. Send out specimens with Reactive results to [facility] for confirmation. Order the HIV antibody detection and differentiation: lc#[id number] Performed By: #### L 3890.6006, L501.0250, L509.8002, L100.0100 ####[facility] [address] [place], [place], [address] Hematocrit Auto (Bld) [Volum e fraction]Ordered By: Beverley Vázquez on 06-30-2024 Hematocrit (Bld) [Volume fraction] 39.7 % 37-47 [facility] Hemoglobin measurementOrdere d By: Beverley Vázquez on 06-30-2024 Hemoglobin (Bld) [Mass/Vol] 13.1 g/dL 12.0-15.0 [facility] Immature granulocytes/100 WB C Auto (Bld)Ordered By: Beverley Vázquez on 06-30-2024 Immature granulocytes/100 WBC (Bld) 0.800 % 0.0-0.9 [facility] Comment on above: IG% - Immature Granu locytes (promyelocytes, myelocytes and metamyelocytes) > 1% indicates that a LEFT SHIFT is Present. Laboratory - Chemistry and C hemistry - challengeOrdered By: Fariba Cota on 06-30-2024 Glucose Ql (U) Negative [facility] Laboratory - UrinalysisOrder ed By: Fariba Cota on 06-30-2024 Protein Ql (U) Negative [facility] Lymphocytes Auto (Unsp spec) [#/Vol]Ordered By: Beverley Vázquez on 06-30-2024 Lymphocytes (Bld) [#/Vol] 2.65 10*3/uL 0.83-4.51 [facility] Lymphocytes/100 WBC Auto (Un sp spec)Ordered By: Beverley Vázquez on 06-30-2024 Lymphocytes/100 WBC (Bld) 20.0 % 19-41 [facility] MCV (mean corpuscular volume ) determinationOrdered By: Beverley Vázquez on 06-30-2024 MCV (RBC) [Entitic vol] 85.0 fL 81-99 [facility] Mean corpuscular hemoglobin (MCH) determinationOrdered By: Beverley Vázquez on 06-30-2024 MCH (RBC) [Entitic mass] 28.1 pg 27.0-32.0 [facility] Mean corpuscular hemoglobin concentration (MCHC) determinationOrdered By: Beverley Vázquez on 06-30-2024 MCHC (RBC) [Mass/Vol] 33.0 g/dL 32-36 [facility] Mean platelet volume determi nationOrdered By: Beverley Vázquez on 06-30-2024 Platelet mean volume (Bld) [Entitic vol] 10.0 fL 6.2-12.0 [facility] Monocyte percentageOrdered B y: Beverley Vázquez on 06-30-2024 Monocytes/100 WBC (Bld) 4.3 % 0-10 [facility] Neutrophil percentageOrdered By: Beverley Vázquez on 06-30-2024 Neutrophils/100 WBC (Bld) 73.1 % High 47-70 [facility] No Panel InformationOrdered By: Beverley Kathie on 06-30-2024 HIV (1&2) Antibody Non-Reactive Nonreactive [facility] Comment on above: Non-ReactiveReactive Repeatedly reactive samples must be confirmed according to CDC recommended confirmatory algorithms. The subresults for either HIVAG or AHIV can be used as an aid in the selection of the confirmation algorithm for reactive samples.Send out specimens with Reactive results to [facility] for confirmation.Order the HIV antibody detection and differentiation: #[id number] Nucleated red blood cell per centageOrdered By: Beverley Kathie on 06-30-2024 Nucleated RBC/100 WBC (Bld) [Ratio] 0 % 0-5 [facility] Registration Scheduling Specialist Office Visit Reporton 06-30-2024 Registration Scheduling Specialist Office Visit Report [facility], [address] [place] [address] OFFICE VISIT Date of Service: 06/30/24 MR#: [id number] Acct: [id number] Name: ANAI WOO Rep #: [id number] : 1995 Provider: NAMITA dubose Age/Sex: 29/F [place] [facility] [place]: Signed Intake Vital Signs 06/16/24 14:12 06/21/24 21:15 06/30/24 14:31 06/30/24 14:36 Height 5 ft 4 in 5 ft 4 in 5 ft 4 in 5 ft 4 in Weight: 272 lb 6 oz BMI 46.7 BP 124/86 H Intake Visit Reasons: 28wk ob Chief Complaint: 28 Week OB Choke Reamer Required: No Is patient in pain?: No [...] 1 current occupational status: employed current occupation: [employer] current occupational exposures/hazards: No pets and animals: [...] 3-4 times per week duration: 30-45 minutes/day katherine/islam: None seatbelt use: always do you feel safe at home: Yes 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 Date Name GA/Weeks Outcome Route Bth Weight Gen Labor Lgth Anesthesia Del Locatn Provider FOB 06/09/22 Gaetanoleawais 37 live - full term 7#2 [facility] Delivery Date: 06/09/22 Last Updated by: Sandy Encinas see problem list for complications, and 37 srom girl SM. HPI 28wk ob Details: ANIA WOO is a 29 year old who [...] Visit Note (more content not included)... Normal [facility] Platelet countOrdered By: Haim Vázquez on 06-30-2024 Platelets (Bld) [#/Vol] 303 10*3/uL 150-450 [facility] RBC Auto (Bld) [#/Vol]Ordere d By: Beverley Vázquez on 06-30-2024 RBC (Bld) [#/Vol] 4.67 10*6/uL 4.2-5.4 [facility] Syphilis Antibodieson 2024 Syphilis Abs Non-Reactive Normal Nonreactive [facility] Comment on above: Performed By: #### L 3890.6006, L501.0250, L509.8002, L100.0100 ####[facility] [address] [facility] [place], [address] T. pallidum abOrdered By: Haim Vázquez on 06-30-2024 Syphilis Total Antibody Non-Reactive Nonreactive [facility] White blood cell (WBC) count Ordered By: Beverley Vázquez on 06-30-2024 WBC (Bld) [#/Vol] 13.3 10*3/uL High 4.4-11.0 [facility] Genital Culture Comprehensiv martha 06-26-2024 VAC Normal vaginal soumya isolated. No yeast, Gardnerella, Neisseria or beta-hemolytic Streptococcus isolated. Normal [facility] Comment on above: Performed By: #### M 100.2000, M100.3200 #### [facility] Laboratory [address] [facility] [place], [address] Urine Cultureon 06-24-2024 URC Below infection leve l. Mixed Gram Positive Organisms [place] Count 1000-10,000 MIXC Mixed contaminants. Submit a new specimen if indicated. Normal [facility] Comment on above: Performed By: #### M 100.2200 ####[facility] [address] [facility] [place], [address] OB Triage Progress Noteon OB Triage Progress Note [facility] Medical Records Department [address] [place] [address] OB Triage Progress Note 06/22/24 0038 MR#: [id number] Acct: [id number] Name: ANAI WOO Rep #: [id number] : 1995 29 From: Tenisha Reyna CNM [...] dehydrated. FHT: 135 appropriate for gestational age [place]: no Contractions Assessment and plan: US for [...] pH 6.0 (5.0 - 8.0) Ur Specific [place] 1.030 (1.002-1.030) Urine Protein 30 H (Negative) mg/dl Urine Glucose (UA) Normal (Normal) mg/dl Urine Ketones 5 H (Negative) mg/dl Urine Occult Blood 10 H (Negative) /ul Urine Nitrite Negative (Negative) Urine Bilirubin Negative (Negative) mg/dL Urine Urobilinogen Normal (Normal) mg/dl Ur Leukocyte Esterase 25 H (Negative) /ul Fibronectin Negative Charges/Coding Multi Select Codes Visit Charges Visit Charges: 64092 Subs Hosp L3 Urinary/Genital Urinary/Genital CPT Codes: 46928-53 non-stress test Interp Assessment Plan (1) Vaginal [...] Reyna; No Primary Care Physician Signed Normal [facility] Bilirubin Test strip Ql (U)O rdered By: Tenisha Reyna on 06-21-2024 Bilirubin Ql (U) Negative Negative [facility] Fibronectinon 06-22-19 fFIBRONECTIN Negative Normal [facility] Comment on above: Performed By: #### L 205.0000 #### [facility] Laboratory [facility] [address] [place], [place], [address] fibronectinOrdered By: Tenisha Reyna on 06-21-2024 Fibronectin. (Vag fld) [Mass/Vol] Negative [facility] Fibronectin. (Vag fld) [Mass/Vol]Ordered By: Tenisha Reyna on 06-21-2024 Fibronectin Negative [facility] Genital cultureOrdered By: Prosper Reyna on 06-21-2024 Genital Culture Neisseria or beta-hemolytic Streptococcus isolated. [facility] Source specific culture Neisseria or beta-hemolytic Streptococcus isolated. [facility] Glucose Ql (U)Ordered By: Gen Reyna on 06-21-2024 Urine Glucose (UA) Normal mg/dl Normal [facility] Gram Stainon 06-21-2024 GS Gram Stain 4+ Gram positive rods Rare White Blood Cells No Gram negative diplococci Score = 0 Interpretation: 0-3 Normal, 4-6 Intermediate, 7-10 Positive BV Normal [facility] Comment on above: Performed By: #### M 100.2000, M100.3200 #### [facility] Laboratory [address] [facility] [place], [address] Gram stainOrdered By: Tenisha Reyna on 06-21-2024 Microscopic observation Gram stain Nom (Unsp spec) [facility] Ketones Test strip Ql (U)Ord ered By: Tenisha Reyna on 06-21-2024 Ketones Ql (U) 5 mg/dl High Negative [facility] Nitrite Test strip Ql (U)Ord ered By: Tenisha Reyna on 06-21-2024 Nitrite Ql (U) Negative Negative [facility] OB Limited With Biometricson 06-21-2024 OB Limited With Biometrics [facility] Imaging Services [address] [place] [address] OB Limited With Biometrics MR#: [id number] Acct: [id number] Name: ANAI WOO Rep #: [id number] : 1995 F 29 From: Daniela Daniels DO PCP: Care Physician,No Primary Status: REG CLI Study: OB Limited With Biometrics Date of Exam: 06/21 Exam# [id number] Ordering Dr: Tenisha Reyna CNJose PROCEDURE: OB LIMITED WITH BIOMETRICS 06/21/2024 REASON [...] days and HITESH of 09/13/2024. Reading [facility] CC: DEAN Reyna; No Primary Care Physician Credit Risk Management Director: Signed Normal [facility] Protein Test strip Ql (U)Ord ered By: Tenisha Reyna on 06-21-2024 Protein Ql (U) 30 mg/dl High Negative [facility] Urinalysis, Routine (Dipstic k)on 06-21-2024 BILIRUBIN URINE Negative Normal Negative [facility] Comment on above: Order Comment: COSMO PEDRAZA TO SPECIFY Performed By: #### L 400.2010 ####[facility] [address] [place], [address] Clarity (U) Clear Normal Clear [facility] Comment on above: Order Comment: COSMO PEDRAZA TO SPECIFY Performed By: #### L 400.2010 ####[facility] [address] [place], [address] Color (U) Yellow Normal Yellow [facility] Comment on above: Order Comment: COSMO CTOR TO SPECIFY Performed By: #### L 400.2010 ####[facility] [address] [place], [address] GLUCOSE, UR Normal Normal Normal [facility] Comment on above: Order Comment: COSMO CTOR TO SPECIFY Performed By: #### L 400.2010 ####[facility] [address] [place], [address] KETONE UR 5 mg/dl Abnormal Negative [facility] Comment on above: Order Comment: COSMO CTOR TO SPECIFY Performed By: #### L 400.2010 ####[facility] [address] [place], [address] LEUK ESTERASE 25 /ul Abnormal Negative [facility] Comment on above: Order Comment: COSMO CTOR TO SPECIFY Performed By: #### L 400.2010 ####[facility] [address] [place], [address] Nitrite Ql (U) Negative Normal Negative [facility] Comment on above: Order Comment: COSMO CTOR TO SPECIFY Performed By: #### L 400.2010 ####[facility] [address] [place], [address] OCCULT BLOOD-UR 10 /ul Abnormal Negative [facility] Comment on above: Order Comment: COSMO CTOR TO SPECIFY Performed By: #### L 400.2010 ####[facility] [address] [place], [address] pH UR 6.0 Normal 5.0 - 8.0 [facility] Comment on above: Order Comment: COSMO CTOR TO SPECIFY Performed By: #### L 400.2010 ####[facility] [address] [place], [address] PROT DIPSTX 30 mg/dl Abnormal Negative [facility] Comment on above: Order Comment: COSMO CTOR TO SPECIFY Performed By: #### L 400.2010 ####[facility] [address] [place], [place], [address] SP.GR. DIPSTX 1.030 Normal 1.002-1.030 [facility] Comment on above: Order Comment: COSMO CTOR TO SPECIFY Performed By: #### L 400.2010 ####[facility] [address] [place], [address] UROBILI Normal Normal Normal [facility] Comment on above: Order Comment: COSMO CTOR TO SPECIFY Performed By: #### L 400.2010 ####[facility] [address] [place], [place], [id number] Urine blood detectionOrdered By: Tenisha Reyna on 06-21-2024 Urine Occult Blood 10 /ul High Negative [facility] Urine clarityOrdered By: Des Reyna on 06-21-2024 Clarity (U) Clear Clear [facility] Urine color determinationOrd ered By: Tenisha Reyna on 06-21-2024 Color (U) Yellow Yellow [facility] Urine cultureOrdered By: Des Reyna on 06-21-2024 Bacteria identified Cx Nom (U) Positive Abnormal [facility] Urine glucose detectionOrder ed By: Tenisha Reyna on 06-21-2024 Glucose Ql (U) Normal mg/dl Normal [facility] Urine leukocyte esterase det ection by dipstickOrdered By: Tenisha Reyna on 06-21-2024 Leukocyte esterase Test strip Ql (U) 25 /ul High Negative [facility] Urine pHOrdered By: Tenisha ibarra on 06-21-2024 pH (U) 6.0 [pH] 5.0 - 8.0 [facility] Urine specific gravity measu rementOrdered By: Tenisha Reyna on 06-21-2024 Specific gravity (U) [Rel density] 1.030 1.002-1.030 [facility] Urine urobilinogen measureme ntOrdered By: Tenisha Reyna on 06-21-2024 Urobilinogen Ql (U) Normal mg/dl Normal [facility] Urobilinogen Ql (U)Ordered B y: Tenisha Reyna on 06-21-2024 Urine Urobilinogen Normal mg/dl Normal [facility] Registration Scheduling Specialist Office Visit Reporton 06-16-2024 Registration Scheduling Specialist Office Visit Report [facility] [address], [address] [place] [address] OFFICE VISIT Date of Service: 06/16/24 MR#: [id number] Acct: [id number] Name: ANAI WOO Rep #: [id number] : 1995 Provider: Dr. Beverley Zambrano, Age/Sex: 29/F [place] [facility] [place]: Signed Intake Vital Signs 03/26/24 13:14 04/21/24 13:38 06/16/24 14:12 Height 5 ft 4 in 5 ft 4 in 5 ft 4 in Weight: 272 lb BMI 46.7 BP 125/87 H Intake Visit Reasons: 26 wk ob *do not shorten Choke Reamer Required: No Is patient in pain?: No [...] 1 current occupational status: employed current occupation: [employer] current occupational exposures/hazards: No pets and animals: [...] 3-4 times per week duration: 30-45 minutes/day katherine/islam: None seatbelt use: always do you feel safe at home: Yes 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 Date Name GA/Weeks Outcome Route Bth Weight Infant Gen Labor Lgth Anesthesia Del Locatn Provider FOB 06/09/22 Víctor 37 live - full term 7#2 Female epidural [facility] rolo Alvarado Delivery Date: 06/09/22 Last Updated [...] Dilation -???-???-???-???-??? (more content not included)... Normal [facility] Laboratory - Chemistry and C hemistry - challengeon 04-21-2024 Glucose Ql (U) Negative [facility] Laboratory - Urinalysison Protein Ql (U) Negative [facility] Registration Scheduling Specialist Office Visit Reporton 04-21-2024 Registration Scheduling Specialist Office Visit Report [facility] [address], [address] [place] [address] OFFICE VISIT Date of Service: 04/21/24 MR#: [id number] Acct: [id number] Name: ANAI WEBBER Rep #: [id number] : 1995 Provider: NAMITA dubose Age/Sex: 28/F Location: [facility] Status: Signed Intake Vital Signs 03/26/24 13:14 04/21/24 13:38 Height 5 ft 4 in 5 ft 4 in Weight: 270 lb 6 oz 270 lb BMI 46.4 46.3 BP 118/81 H 111/76 Intake Visit Reasons: 18 wk ob Chief Complaint: 18 Week OB Choke Reamer Required: No Is patient in pain?: No [...] 1 current occupational status: employed current occupation: [employer] current occupational exposures/hazards: No pets and animals: [...] 3-4 times per week duration: 30-45 minutes/day katherine/islam: None seatbelt use: always do you feel safe at home: Yes 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 Date Name GA/Weeks Outcome Route Bth Weight Gen Labor Lgth Anesthesia Del Locatn Provider FOB 06/09/22 Finlee 37 live - full term 7#2 Female epidural [facility] rolo Alvarado Delivery Date: 06/09/22 Last Updated [...] -???-???-???-???-???-??? -???-???-???-?? (more content not included)... Normal [facility] Miscellaneous Lab Procedureo n 03-31-2024 MISC LAB TEST Normal [facility] Comment on above: Order Comment: Comme nts: [id number] SERUM RFTSH Receptor Antibodies Result Comment: TEST RESULTS LIMITS Thyrotropin Receptor Ab, Serum <1.10 IU/L 0.00-1.75 TESTING PERFORMED AT [facility]. ORIGINAL REPORT ON FILE IN LAB CONTAINS ADDITIONAL TEST SITE INFORMATION. Performed By: #### M 100.2000, M100.3200 #### [facility] Laboratory [address] [place], [address] Absolute neutrophil countOrd ered By: Tenisha Reyna on 03-26-2024 Neutrophils (Bld) [#/Vol] 7.3 10*3/uL 2.0-7.7 [facility] Albumin to globulin ratioOrd ered By: Tenisha Reyna on 03-26-2024 Albumin/Globulin [Mass ratio] 0.8 {ratio} Low 0.9-2.4 [facility] Basophil percentageOrdered B y: Tenisha Reyna on 03-26-2024 Basophils/100 WBC (Bld) 0.4 % 0-1 [facility] Bilirubin, totalOrdered By: Tenisha Reyna on 03-26-2024 Bilirubin [Mass/Vol] 0.30 mg/dL 0.20-1.00 [facility] Comment on above: For patients on eltr ombopag therapy, use of Dimension [place] TBIL is not recommended. Blood urea nitrogen (BUN)/cr eatinine ratioOrdered By: Tenisha Reyna on 03-26-2024 Urea nitrogen/Creatinine [Mass ratio] 17.0 mg/mg 10- [facility] CBC W/Diff, Automatedon Absolute Lymph 3.23 X10 3/uL Normal 0.83-4.51 [facility] Comment on above: Performed By: #### L 509.8000, L3890.6005, BTS, L3890.6100, L506.0400, L3890.6300, L801.1541, L509.4005, L501.9520, L100.0100, L501.9985, L500.4050, L900.0098 ####[facility] [address] [place], [place], [phone](116) Absolute Neut 7.3 X10 3/uL Normal 2.0-7.7 [facility] Comment on above: Performed By: #### L 509.8000, L3890.6005, BTS, L3890.6100, L506.0400, L3890.6300, L801.1541, L509.4005, L501.9520, L100.0100, L501.9985, L500.4050, L900.0098 ####[facility] [address] [place], [place], [phone] Basophils/100 WBC (Bld) 0.4 % Normal 0-1 [facility] Comment on above: Performed By: #### L 509.8000, L3890.6005, BTS, L3890.6100, L506.0400, L3890.6300, L801.1541, L509.4005, L501.9520, L100.0100, L501.9985, L500.4050, L900.0098 ####[facility] [address] [place], [address] Eosinophils/100 WBC (Bld) 1.7 % Normal 0-5 [facility] Comment on above: Performed By: #### L 509.8000, L3890.6005, BTS, L3890.6100, L506.0400, L3890.6300, L801.1541, L509.4005, L501.9520, L100.0100, L501.9985, L500.4050, L900.0098 ####[facility] [address] [place], [address] Erythrocyte distribution width (RBC) [Ratio] 15.7 % High 11.6-14.6 [facility] Comment on above: Performed By: #### L 509.8000, L3890.6005, BTS, L3890.6100, L506.0400, L3890.6300, L801.1541, L509.4005, L501.9520, L100.0100, L501.9985, L500.4050, L900.0098 ####[facility] [address] [place], [place], [phone]) Hematocrit (Bld) [Volume fraction] 39.8 % Normal 37-47 [facility] Comment on above: Performed By: #### L 509.8000, L3890.6005, BTS, L3890.6100, L506.0400, L3890.6300, L801.1541, L509.4005, L501.9520, L100.0100, L501.9985, L500.4050, L900.0098 ####[facility] [address] [place], [place], [phone]) Hemoglobin (Bld) [Mass/Vol] 12.7 g/dL Normal 12.0-15.0 [facility] Comment on above: Performed By: #### L 509.8000, L3890.6005, BTS, L3890.6100, L506.0400, L3890.6300, L801.1541, L509.4005, L501.9520, L100.0100, L501.9985, L500.4050, L900.0098 ####[facility] [address] [place], [place], [id number] IG% 0.300 Normal 0.0-0.9 [facility] Comment on above: Result Comment: IG% - Immature Granulocytes (promyelocytes, myelocytes and metamyelocytes) > 1% indicates that a LEFT SHIFT is Present. Performed By: #### L 509.8000, L3890.6005, BTS, L3890.6100, L506.0400, L3890.6300, L801.1541, L509.4005, L501.9520, L100.0100, L501.9985, L500.4050, L900.0098 ####[facility] [address] [facility] [place], [address] Lymphocytes/100 WBC (Bld) 28.1 % Normal 19-41 [facility] Comment on above: Performed By: #### L 509.8000, L3890.6005, BTS, L3890.6100, L506.0400, L3890.6300, L801.1541, L509.4005, L501.9520, L100.0100, L501.9985, L500.4050, L900.0098 ####[facility] [address] [facility] [place], [address] MCH (RBC) [Entitic mass] 27.4 pg Normal 27.0-32.0 [facility] Comment on above: Performed By: #### L 509.8000, L3890.6005, BTS, L3890.6100, L506.0400, L3890.6300, L801.1541, L509.4005, L501.9520, L100.0100, L501.9985, L500.4050, L900.0098 ####[facility] [address] [place], [address] MCHC (RBC) [Mass/Vol] 31.9 g/dL Low 32-36 [facility] Comment on above: Performed By: #### L 509.8000, L3890.6005, BTS, L3890.6100, L506.0400, L3890.6300, L801.1541, L509.4005, L501.9520, L100.0100, L501.9985, L500.4050, L900.0098 ####[facility] [address] [place], [address] MCV (RBC) [Entitic vol] 86.0 fL Normal 81-99 [facility] Comment on above: Performed By: #### L 509.8000, L3890.6005, BTS, L3890.6100, L506.0400, L3890.6300, L801.1541, L509.4005, L501.9520, L100.0100, L501.9985, L500.4050, L900.0098 ####[facility] [address] [place], [address] Monocytes/100 WBC (Bld) 5.8 % Normal 0-10 [facility] Comment on above: Performed By: #### L 509.8000, L3890.6005, BTS, L3890.6100, L506.0400, L3890.6300, L801.1541, L509.4005, L501.9520, L100.0100, L501.9985, L500.4050, L900.0098 ####[facility] [address] [place], [address] Neutrophils/100 WBC (Bld) 63.7 % Normal 47-70 [facility] Comment on above: Performed By: #### L 509.8000, L3890.6005, BTS, L3890.6100, L506.0400, L3890.6300, L801.1541, L509.4005, L501.9520, L100.0100, L501.9985, L500.4050, L900.0098 ####[facility] [address] [place], [place], [phone]66) Nucleated RBC (Bld) [#/Vol] 0 10*3/uL Normal 0-5 [facility] Comment on above: Performed By: #### L 509.8000, L3890.6005, BTS, L3890.6100, L506.0400, L3890.6300, L801.1541, L509.4005, L501.9520, L100.0100, L501.9985, L500.4050, L900.0098 ####[facility] [address] [place], [address](551) Platelet mean volume (Bld) [Entitic vol] 10.2 fL Normal 6.2-12.0 [facility] Comment on above: Performed By: #### L 509.8000, L3890.6005, BTS, L3890.6100, L506.0400, L3890.6300, L801.1541, L509.4005, L501.9520, L100.0100, L501.9985, L500.4050, L900.0098 ####[facility] [address] [place], [address](856) Platelets (Bld) [#/Vol] 270 10*3/uL Normal 150-450 [facility] Comment on above: Performed By: #### L 509.8000, L3890.6005, BTS, L3890.6100, L506.0400, L3890.6300, L801.1541, L509.4005, L501.9520, L100.0100, L501.9985, L500.4050, L900.0098 ####[facility] [address] [place], [address] RBC (Bld) [#/Vol] 4.63 10*6/uL Normal 4.2-5.4 [facility] Comment on above: Performed By: #### L 509.8000, L3890.6005, BTS, L3890.6100, L506.0400, L3890.6300, L801.1541, L509.4005, L501.9520, L100.0100, L501.9985, L500.4050, L900.0098 ####[facility] [address] [facility] [place], [address] RDW SD 49.0 fl High 35.1-43.9 [facility] Comment on above: Performed By: #### L 509.8000, L3890.6005, BTS, L3890.6100, L506.0400, L3890.6300, L801.1541, L509.4005, L501.9520, L100.0100, L501.9985, L500.4050, L900.0098 ####[facility] [address] [facility] [place], [address] WBC (Bld) [#/Vol] 11.5 10*3/uL High 4.4-11.0 [facility] Comment on above: Performed By: #### L 509.8000, L3890.6005, BTS, L3890.6100, L506.0400, L3890.6300, L801.1541, L509.4005, L501.9520, L100.0100, L501.9985, L500.4050, L900.0098 ####[facility] [address] [facility] [place], [address] Carbon dioxide measurementOr dered By: Tenisha Reyna on 03-26-2024 CO2 [Moles/Vol] 27.0 mmol/L 21.0-32.0 [facility] Chloride measurementOrdered By: Tenisha Reyna on 03-26-2024 Chloride [Moles/Vol] 105 mmol/L 98-107 [facility] Comprehensive Metabolic Prof ilon 03-26-2024 Albumin [Mass/Vol] 3.0 g/dL Low 3.2-5.0 [facility] Comment on above: Order Comment: [id number] Performed By: #### L 509.8000, L3890.6005, BTS, L3890.6100, L506.0400, L3890.6300, L801.1541, L509.4005, L501.9520, L100.0100, L501.9985, L500.4050, L900.0098 ####[facility] [address] [place], [place], [id number] Albumin/Globulin [Mass ratio] 0.8 {ratio} Low 0.9-2.4 [facility] Comment on above: Order Comment: [id number] Performed By: #### L 509.8000, L3890.6005, BTS, L3890.6100, L506.0400, L3890.6300, L801.1541, L509.4005, L501.9520, L100.0100, L501.9985, L500.4050, L900.0098 ####[facility] [address] [place], [place], [id number] ALK P 81 U/L Normal 45-117 [facility] Comment on above: Order Comment: [id number] 8 Performed By: #### L 509.8000, L3890.6005, BTS, L3890.6100, L506.0400, L3890.6300, L801.1541, L509.4005, L501.9520, L100.0100, L501.9985, L500.4050, L900.0098 ####[facility] [address] [place], [place], [id number] ALT [Catalytic activity/Vol] 16 U/L Normal 13-56 [facility] Comment on above: Order Comment: 57866 8 Performed By: #### L 509.8000, L3890.6005, BTS, L3890.6100, L506.0400, L3890.6300, L801.1541, L509.4005, L501.9520, L100.0100, L501.9985, L500.4050, L900.0098 ####[facility] [address] [place], [address] AST [Catalytic activity/Vol] 10 U/L Low 15-37 [facility] Comment on above: Order Comment: 03060 8 Performed By: #### L 509.8000, L3890.6005, BTS, L3890.6100, L506.0400, L3890.6300, L801.1541, L509.4005, L501.9520, L100.0100, L501.9985, L500.4050, L900.0098 ####[facility] [address] [place], [address] Bilirubin [Mass/Vol] 0.30 mg/dL Normal 0.20-1.00 [facility] Comment on above: Order Comment: [id number] 8 Result Comment: For patients on eltrombopag therapy, use of Dimension [place] TBIL is not recommended. Performed By: #### L 509.8000, L3890.6005, BTS, L3890.6100, L506.0400, L3890.6300, L801.1541, L509.4005, L501.9520, L100.0100, L501.9985, L500.4050, L900.0098 ####[facility] [address] [place], [address] BUN/CRE 17.0 RATIO Normal 10-20 [facility] Comment on above: Order Comment: 38601 8 Performed By: #### L 509.8000, L3890.6005, BTS, L3890.6100, L506.0400, L3890.6300, L801.1541, L509.4005, L501.9520, L100.0100, L501.9985, L500.4050, L900.0098 ####[facility] [address] [place], [place], [phone] CA,Total 9.3 mg/dL Normal 8.5-10.1 [facility] Comment on above: Order Comment: 27807 8 Performed By: #### L 509.8000, L3890.6005, BTS, L3890.6100, L506.0400, L3890.6300, L801.1541, L509.4005, L501.9520, L100.0100, L501.9985, L500.4050, L900.0098 ####[facility] [address] [place], [place], [id number] Chloride [Moles/Vol] 105 mmol/L Normal 98-107 [facility] Comment on above: Order Comment: 23285 8 Performed By: #### L 509.8000, L3890.6005, BTS, L3890.6100, L506.0400, L3890.6300, L801.1541, L509.4005, L501.9520, L100.0100, L501.9985, L500.4050, L900.0098 ####[facility] [address] [place], [place], [phone] CO2 [Moles/Vol] 27.0 mmol/L Normal 21.0-32.0 [facility] Comment on above: Order Comment: [id number] 8 Performed By: #### L 509.8000, L3890.6005, BTS, L3890.6100, L506.0400, L3890.6300, L801.1541, L509.4005, L501.9520, L100.0100, L501.9985, L500.4050, L900.0098 ####[facility] [address] [place], [address] Creatinine [Mass/Vol] 0.53 mg/dL Low 0.55-1.02 [facility] Comment on above: Order Comment: 45180 8 Result Comment: The validity of the calculated GFR GFRAA in patients over 70 years has not been determined. Clinical correlation is essential. Performed By: #### L 509.8000, L3890.6005, BTS, L3890.6100, L506.0400, L3890.6300, L801.1541, L509.4005, L501.9520, L100.0100, L501.9985, L500.4050, L900.0098 ####[facility] [address] [place], [address] EST GFR - AA 174 mL/min Normal >60 [facility] Comment on above: Order Comment: 74298 8 Result Comment: Afri can Citizen Of [place] GFR Calc Performed By: #### L 509.8000, L3890.6005, BTS, L3890.6100, L506.0400, L3890.6300, L801.1541, L509.4005, L501.9520, L100.0100, L501.9985, L500.4050, L900.0098 ####[facility] [address] [place], [place], [id number] GAP 6 Normal 5-15 [facility] Comment on above: Order Comment: 31839 8 Performed By: #### L 509.8000, L3890.6005, BTS, L3890.6100, L506.0400, L3890.6300, L801.1541, L509.4005, L501.9520, L100.0100, L501.9985, L500.4050, L900.0098 ####[facility] [address] [place], [address] GFR/1.73 sq M.predicted among non-blacks MDRD (S/P/Bld) [Vol rate/Area] 143 mL/min/{1.73_m2} Normal >60 [facility] Comment on above: Order Comment: 34740 8 Result Comment: Non- GFR Calc Performed By: #### L 509.8000, L3890.6005, BTS, L3890.6100, L506.0400, L3890.6300, L801.1541, L509.4005, L501.9520, L100.0100, L501.9985, L500.4050, L900.0098 ####[facility] [address] [place], [address] Globulin (S) [Mass/Vol] 3.9 g/dL Normal 2.2-4.2 [facility] Comment on above: Order Comment: 06151 8 Performed By: #### L 509.8000, L3890.6005, BTS, L3890.6100, L506.0400, L3890.6300, L801.1541, L509.4005, L501.9520, L100.0100, L501.9985, L500.4050, L900.0098 ####[facility] [address] [place], [address] Glucose [Mass/Vol] 81 mg/dL Normal 74-106 [facility] Comment on above: Order Comment: 94007 8 Performed By: #### L 509.8000, L3890.6005, BTS, L3890.6100, L506.0400, L3890.6300, L801.1541, L509.4005, L501.9520, L100.0100, L501.9985, L500.4050, L900.0098 ####[facility] [address] [place], [address] Potassium [Moles/Vol] 3.7 mmol/L Normal 3.5-5.1 [facility] Comment on above: Order Comment: 17409 8 Performed By: #### L 509.8000, L3890.6005, BTS, L3890.6100, L506.0400, L3890.6300, L801.1541, L509.4005, L501.9520, L100.0100, L501.9985, L500.4050, L900.0098 ####[facility] [address] [place], [place], [phone] Sodium [Moles/Vol] 138 mmol/L Normal 136-145 [facility] Comment on above: Order Comment: 60237 8 Performed By: #### L 509.8000, L3890.6005, BTS, L3890.6100, L506.0400, L3890.6300, L801.1541, L509.4005, L501.9520, L100.0100, L501.9985, L500.4050, L900.0098 ####[facility] [address] [place], [place], [phone] T PROT 6.9 g/dL Normal 6.4-8.2 [facility] Comment on above: Order Comment: 63683 8 Performed By: #### L 509.8000, L3890.6005, BTS, L3890.6100, L506.0400, L3890.6300, L801.1541, L509.4005, L501.9520, L100.0100, L501.9985, L500.4050, L900.0098 ####[facility] [address] [place], [place], [phone] Urea nitrogen [Mass/Vol] 9 mg/dL Normal 7-18 [facility] Comment on above: Order Comment: 81705 8 Performed By: #### L 509.8000, L3890.6005, BTS, L3890.6100, L506.0400, L3890.6300, L801.1541, L509.4005, L501.9520, L100.0100, L501.9985, L500.4050, L900.0098 ####[facility] [address] [place], [place], [phone] Direct serum free thyroxine (FT4) measurementOrdered By: Tenisha Reyna on 03-26-2024 Free T4 [Mass/Vol] 0.95 ng/dL 0.76-1.46 [facility] Eosinophil percentageOrdered By: Tenisha Reyna on 03-26-2024 Eosinophils/100 WBC (Bld) 1.7 % 0-5 [facility] Erythrocyte distribution wid th ratioOrdered By: Tenisha Reyna on 03-26-2024 Erythrocyte distribution width (RBC) [Ratio] 15.7 % High 11.6-14.6 [facility] Erythrocyte distribution wid th standard deviationOrdered By: Tenisha Reyna on 03-26-2024 Erythrocyte distribution width (RBC) [Entitic vol] 49.0 fL High 35.1-43.9 [facility] Estimated glomerular filtrat ion rate (GFR) AmericanOrdered By: Tenisha Reyna on 03-26-2024 Estimated GFR (MDRD) Amer 174 mL/min >60 [facility] Comment on above: GFR Calc Glomerular filtration rate ( GFR) estimationOrdered By: Tenisha Reyna on 03-26-2024 Estimated GFR (MDRD) Non-Af Amer 143 mL/min >60 [facility] Comment on above: Non- GFR Calc Glucose measurementOrdered B y: Tenisha Reyna on 03-26-2024 Glucose [Mass/Vol] 81 mg/dL 74-106 [facility] HIV - WCHon 03-26-2024 HIV Non-Reactive Normal Nonreactive [facility] Comment on above: Order Comment: Reaso n for Exam: Performed By: #### L 509.8000, L3890.6005, BTS, L3890.6100, L506.0400, L3890.6300, L801.1541, L509.4005, L501.9520, L100.0100, L501.9985, L500.4050, L900.0098 ####[facility] [address] [place], [address] HIV 1+2 Ab+HIV1 p24 Ag IA Ql Ordered By: Tenisha Reyna on 03-26-2024 HIV (1&2) Antibody Non-Reactive Nonreactive [facility] Hematocrit Auto (Bld) [Volum e fraction]Ordered By: Tenisha Reyna on 03-26-2024 Hematocrit (Bld) [Volume fraction] 39.8 % 37-47 [facility] Hemoglobin A1con 03-26-2024 HbA1c (Bld) [Mass fraction] 5.0 % Normal 3.8-5.6 [facility] Comment on above: Result Comment: Norm al < 5.7 % Prediabetic 5.7 - 6.4 % Diabetic >or= 6.5 % Please note range changes. Performed By: #### L 509.8000, L3890.6005, BTS, L3890.6100, L506.0400, L3890.6300, L801.1541, L509.4005, L501.9520, L100.0100, L501.9985, L500.4050, L900.0098 ####[facility] [address] [place], [address] Hemoglobin A1c percentageOrd ered By: Tenisha Reyna on 03-26-2024 HbA1c (Bld) [Mass fraction] 5.0 % 3.8-5.6 [facility] Comment on above: Normal < 5.7 % Predi abetic 5.7 - 6.4 % Diabetic >or= 6.5 % Please note range changes. Hemoglobin measurementOrdere d By: Tenisha Reyna on 03-26-2024 Hemoglobin (Bld) [Mass/Vol] 12.7 g/dL 12.0-15.0 [facility] Hepatitis B Surface Antigeno n 03-26-2024 HEP B Surf Ag Non-Reactive Normal Nonreactive [facility] Comment on above: Order Comment: Reaso n for Exam: Performed By: #### L 509.8000, L3890.6005, BTS, L3890.6100, L506.0400, L3890.6300, L801.1541, L509.4005, L501.9520, L100.0100, L501.9985, L500.4050, L900.0098 ####[facility] [address] [place], [place], [phone] Hepatitis B surface antigen detectionOrdered By: Tenisha Reyna on 03-26-2024 Hepatitis B Surface Antigen Non-Reactive Nonreactive [facility] Hepatitis C Antibodyon 03-26 Hepatitis C AB Non-Reactive Normal Nonreactive [facility] Comment on above: Order Comment: Reaso n for Exam: Result Comment: Non Reactive: < 0.8 Equivocal: >/= 0.8 to < 1.0 Reactive: >/= 1.0 The [facility] requires that a reactive/equivocal HCV antibody result be sent out for confirmation. HCV Quant by PCR testing. Performed By: #### M 100.2000, M100.3200 #### [facility] Laboratory [address] [place], [place], [address] Hepatitis C virus antibody a ssayOrdered By: Tenisha Reyna on 03-26-2024 Hepatitis C Antibody Non-Reactive Nonreactive W [facility] Comment on above: Non Reactive: < 0.8 Equivocal: >/= 0.8 to < 1.0 Reactive: >/= 1.0The [facility] requires that a reactive/equivocal HCV antibody result be sent out for confirmation. HCV Quant by PCR testing. Immature granulocytes/100 WB C Auto (Bld)Ordered By: Tenisha Reyna on 03-26-2024 Immature granulocytes/100 WBC (Bld) 0.300 % 0.0-0.9 [facility] Comment on above: IG% - Immature Granu locytes (promyelocytes, myelocytes and metamyelocytes) > 1% indicates that a LEFT SHIFT is Present. L509.8000on 03-26-2024 Syphilis Abs Non-Reactive Normal [facility] Comment on above: Order Comment: Reaso n for Exam: Performed By: #### L 509.8000, L3890.6005, BTS, L3890.6100, L506.0400, L3890.6300, L801.1541, L509.4005, L501.9520, L100.0100, L501.9985, L500.4050, L900.0098 ####[facility] [address] [place], [address] Laboratory - Chemistry and C hemistry - challengeOrdered By: Tenisha Reyna on 03-26-2024 AST [Catalytic activity/Vol] 10 U/L Low 15-37 [facility] Laboratory - Chemistry and C hemistry - challengeon 03-26-2024 Glucose Ql (U) Negative [facility] Laboratory - Urinalysison Protein Ql (U) Negative [facility] Lymphocytes Auto (Unsp spec) [#/Vol]Ordered By: Tenisha Reyna on 03-26-2024 Lymphocytes (Bld) [#/Vol] 3.23 10*3/uL 0.83-4.51 [facility] Lymphocytes/100 WBC Auto (Un sp spec)Ordered By: Tenisha Reyna on 03-26-2024 Lymphocytes/100 WBC (Bld) 28.1 % 19-41 [facility] MCV (mean corpuscular volume ) determinationOrdered By: Tenisha Reyna on 03-26-2024 MCV (RBC) [Entitic vol] 86.0 fL 81-99 [facility] Mean corpuscular hemoglobin (MCH) determinationOrdered By: Tenisha Reyna on 03-26-2024 MCH (RBC) [Entitic mass] 27.4 pg 27.0-32.0 [facility] Mean corpuscular hemoglobin concentration (MCHC) determinationOrdered By: Tenisha Reyna on 03-26-2024 MCHC (RBC) [Mass/Vol] 31.9 g/dL Low 32-36 [facility] Mean platelet volume determi nationOrdered By: Tenisha Reyna on 03-26-2024 Platelet mean volume (Bld) [Entitic vol] 10.2 fL 6.2-12.0 [facility] Miscellaneous procedureOrder ed By: Tenisha Reyna on 03-26-2024 Miscellaneous Test See comment [facility] Comment on above: TEST RESULTS LIMITST hyrotropin Receptor Ab,Serum <1.10 IU/L 0.00-1.75 [facility]AL REPORT ON FILE IN LAB CONTAINS ADDITIONAL TEST SITE INFORMATION. Miscellaneous Test Comment SEE SCANNED REPORT [facility] Monocyte percentageOrdered B y: Tenisha Reyna on 03-26-2024 Monocytes/100 WBC (Bld) 5.8 % 0-10 [facility] NATERAon 03-26-2024 NATURA SEE SCANNED REPORT Normal [facility] Comment on above: Order Comment: Comme nts: NIPT w/Gender Performed By: #### L 509.8000, L3890.6005, BTS, L3890.6100, L506.0400, L3890.6300, L801.1541, L509.4005, L501.9520, L100.0100, L501.9985, L500.4050, L900.0098 ####[facility] [address] [place], [address] Neutrophil percentageOrdered By: Tenisha Reyna on 03-26-2024 Neutrophils/100 WBC (Bld) 63.7 % 47-70 [facility] Nucleated red blood cell per centageOrdered By: Tenisha Reyna on 03-26-2024 Nucleated RBC/100 WBC (Bld) [Ratio] 0 % 0-5 [facility] Registration Scheduling Specialist Office Visit Reporton 03-26-2024 Registration Scheduling Specialist Office Visit Report [facility] [address], [address] [place] [address] OFFICE VISIT Date of Service: 03/26/24 MR#: [id number] Acct: [id number] Name: ANAI WEBBER Rep #: [id number] : 1995 Provider: Dr. Nenita husain MD Age/Sex: 28/F [place] [facility] [place]: Signed Intake Vital Signs 01/21/24 15:31 02/18/24 13:06 03/26/24 13:14 Height 5 ft 4 in 5 ft 4 in 5 ft 4 in Weight: 270 lb 6 oz BMI 46.4 BP 118/81 H Intake Visit Reasons: 13 wk OB Choke Reamer Required: No Is patient in pain?: No [...] 1 current occupational status: employed current occupation: [employer] current occupational exposures/hazards: No pets and animals: [...] 3-4 times per week duration: 30-45 minutes/day katherine/islam: None seatbelt use: always do you feel safe at home: Yes additional social history: EmilyManpreet Christiano- 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 Date Name GA/Weeks Outcome Route Bth Weight Gen Labor Lgth Anesthesia Del Locatn Provider FOB 06/09/22 Finlee 37 live - full term 7#2 Female epidural [facility] Ajit Alvarado Delivery Date: 06/09/22 Last Updated [...] -???-???-???-???-???-??? -???-???-???-???- (more content not included)... Normal [facility] Platelet countOrdered By: Gen Reyna on 03-26-2024 Platelets (Bld) [#/Vol] 270 10*3/uL 150-450 [facility] Potassium measurementOrdered By: Tenisha Reyna on 03-26-2024 Potassium [Moles/Vol] 3.7 mmol/L 3.5-5.1 [facility] RBC Auto (Bld) [#/Vol]Ordere d By: Tenisha Reyna on 03-26-2024 RBC (Bld) [#/Vol] 4.63 10*6/uL 4.2-5.4 [facility] Rubella IgGon 03-26-2024 Rubella IgG Equiv Normal Nonreactive [facility] Comment on above: Order Comment: Reaso n for Exam: Result Comment: Anti body Results Interpretation of Immune Status Non Reactive Presumed Non-Immune Equivocal Equivocal Reactive Presumed Immune Performed By: #### L 509.8000, L3890.6005, BTS, L3890.6100, L506.0400, L3890.6300, L801.1541, L509.4005, L501.9520, L100.0100, L501.9985, L500.4050, L900.0098 ####[facility] [address] [place], [place], [id number] Rubella immune status IgGOrd ered By: Tenisha Reyna on 03-26-2024 Rubella IgG Antibody Equiv Nonreactive [facility] Comment on above: Antibody Results Int erpretation of Immune Status Non Reactive Presumed Non-Immune Equivocal Equivocal Reactive Presumed Immune Serum anion gap measurementO rdered By: Tenisha Reyna on 03-26-2024 Anion gap [Moles/Vol] 6 mmol/L 5-15 [facility] Serum globulin measurementOr dered By: Tenisha Reyna on 03-26-2024 Globulin (S) [Mass/Vol] 3.9 g/dL 2.2-4.2 [facility] Serum or plasma alanine aceves otransferase (ALT) measurementOrdered By: Tenisha Reyna on 03-26-2024 ALT [Catalytic activity/Vol] 16 U/L 13-56 [facility] Serum or plasma albumin andi urement (mass/volume)Ordered By: Tenisha Reyna on 03-26-2024 Albumin [Mass/Vol] 3.0 g/dL Low 3.2-5.0 [facility] Serum or plasma alkaline osvaldo sphatase measurementOrdered By: Tenisha Reyna on 03-26-2024 ALP [Catalytic activity/Vol] 81 U/L 45-117 [facility] Serum or plasma calcium andi urement (mass/volume)Ordered By: Tenisha Reyna on 03-26-2024 Calcium [Mass/Vol] 9.3 mg/dL 8.5-10.1 [facility] Serum or plasma creatinine m easurement (mass/volume)Ordered By: Tenisha Reyna on 03-26-2024 Creatinine [Mass/Vol] 0.53 mg/dL Low 0.55-1.02 [facility] Comment on above: The validity of the calculated GFR & GFRAA in patients over 70 years has not been determined. Clinical correlation is essential. Serum or plasma urea nitroge n measurement (mass/volume)Ordered By: Tenisha Reyna on 03-26-2024 Urea nitrogen [Mass/Vol] 9 mg/dL 7-18 [facility] Sodium levelOrdered By: Camila Reyna on 03-26-2024 Sodium [Moles/Vol] 138 mmol/L 136-145 [facility] T4 Free Directon 03-26-2024 T4 FREE DIRECT 0.95 ng/dL Normal 0.76-1.46 [facility] Comment on above: Order Comment: [id number] Performed By: #### L 509.8000, L3890.6005, BTS, L3890.6100, L506.0400, L3890.6300, L801.1541, L509.4005, L501.9520, L100.0100, L501.9985, L500.4050, L900.0098 ####[facility] [address] [place], [place], [phone] TSH QnOrdered By: Tenisha paris on 03-26-2024 Thyroid Stimulating Hormone (TSH) 0.648 uIU/mL 0.358-3.740 [facility] Thyroid Stim Hormone (TSH)on 03-26-2024 TSH 0.648 uIU/mL Normal 0.358-3.740 [facility] Comment on above: Order Comment: [id number] Performed By: #### L 509.8000, L3890.6005, BTS, L3890.6100, L506.0400, L3890.6300, L801.1541, L509.4005, L501.9520, L100.0100, L501.9985, L500.4050, L900.0098 ####[facility] [address] [place], [address] Total proteinOrdered By: Des Reyna on 03-26-2024 Protein [Mass/Vol] 6.9 g/dL 6.4-8.2 [facility] Treponema sp Ab Ql (S)Ordere d By: Tenisha Reyna on 03-26-2024 Syphilis Total Antibody Non-Reactive [facility] Type AND Screenon 03-26-2024 Ab SCREEN GEL Negative Normal [facility] Comment on above: Order Comment: PN Performed By: #### L 509.8000, L3890.6005, BTS, L3890.6100, L506.0400, L3890.6300, L801.1541, L509.4005, L501.9520, L100.0100, L501.9985, L500.4050, L900.0098 ####[facility] [address] [place], [place], [id number] ABO and Rh group Nom (Bld) Blood group O Rh(D) positive Normal [facility] Comment on above: Order Comment: PN Performed By: #### L 509.8000, L3890.6005, BTS, L3890.6100, L506.0400, L3890.6300, L801.1541, L509.4005, L501.9520, L100.0100, L501.9985, L500.4050, L900.0098 ####[facility] [address] [place], [address] White blood cell (WBC) count Ordered By: Tenisha Reyna on 03-26-2024 WBC (Bld) [#/Vol] 11.5 10*3/uL High 4.4-11.0 [facility] SARS-COV-2 RAPID AG (WIC)on 03-10-2024 SARS-CoV-2 (COVID-19) RNA JADYN+probe Ql (Unsp spec) Not detected Normal NOT DETECTED [facility] Comment on above: Result Comment: Nega tive [...] By: #### C COVAG ####[place] [address] NARRATIVE This test was perfor med using lateral flow immunoassay. This test does not differentiate between SARS-CoV and SARS-CoV2. Normal [facility] Comment on above: Performed By: #### C COVAG ####Testing performed at [place] [id number] SARS-COV-2 RAPID ANTIGEN (CL INIC ONLY)on 03-10-2024 SARS-CoV-2 (COVID-19) RNA JADYN+probe Ql (Unsp spec) This test was performed using lateral flow immunoassay. This test does not differentiate between SARS-CoV and SARS-CoV2. [facility] SARS-CoV-2 (COVID-19) RNA NA A+probe Ql (Unsp spec)on 03-10-2024 SARS-CoV-2 (COVID-19) Ag IA.rapid Ql (Resp) Not detected NOT DETECTED [facility] Comment on above: Negative results malka [...] clinical signs and symptoms consistent with COVID-19. [facility] Chlamydia/GC JADYN aptimaon CHLAMY,NUC ACID Negative Normal Negative [facility] Comment on above: Performed By: #### M 100.2200, L501.0900, L7000.1800 ####[facility] [address] [place], [place], [id number] GC BY NUC ACID Negative Normal Negative [facility] Comment on above: Result Comment: Perf ormed at: =G - [facility] [address] [id number] [address] Maintenance Supervisor: Lizz Franz MD, Phone: [phone] Performed By: #### M 100.2200, L501.0900, L7000.1800 ####[facility] [address] [place], [address] Urine Cultureon 02-21-2024 [facility] Below infection leve l. Mixed Gram Positive Organisms [place] Count 1000-10,000 [facility] Mixed contaminants. Submit a new specimen if indicated. Normal [facility] Comment on above: Performed By: #### M 100.2200, L501.0900, L7000.1800 #### [facility] [address] [place], [place], [id number] Registration Scheduling Specialist Office Visit Reporton 02-18-2024 Registration Scheduling Specialist Office Visit Report [facility]'[address], [address] [place] [address] OFFICE VISIT Date of Service: 02/18/24 MR#: [id number] Acct: [id number] Name: ANAI WEBBER Rep #: [id number] : 1995 Provider: DEAN Massey ams Age/Sex: 28/F [place] [facility] [place]: Signed Intake Vital Signs 01/21/24 15:31 02/18/24 13:06 Height 5 ft 4 in 5 ft 4 in Weight: 267 lb 2 oz BMI 45.8 BP 121/82 H Intake Visit Reasons: NOB LMP 12/21 Choke Reamer Required: No Is patient in pain?: No [...] No current occupational status: employed current occupation: [employer] current occupational exposures/hazards: No pets and animals: [...] 3-4 times per week duration: 30-45 minutes/day katherine/islam: None seatbelt use: always do you feel safe at home: Yes 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 Date Name GA/Weeks Outcome Route Bth Weight Gen Labor Lgth Anesthesia Del Locatn Provider FOB 06/09/22 Finlee 37 live - full term 7#2 Female epidural [facility] rolo Alvarado Delivery Date: 06/09/22 Last Updated [...] Date -???-? (more content not included)... Normal [facility] Protein+Creatinine Ratio,Uri neon 02-18-2024 PROT:CRE RATIO 200 mg/g CRE Normal 0-200 [facility] Comment on above: Performed By: #### M 100.2200, L501.0900, L7000.1800 #### [facility] [address] [place], [address] Protein (U) [Mass/Vol] 49.7 mg/dL High <11.9 [facility] Comment on above: Performed By: #### M 100.2200, L501.0900, L7000.1800 #### [facility] [address] [place], [address] UR CREAT 249.00 mg/dL Normal NO RANGE EST. [facility] Comment on above: Performed By: #### M 100.2200, L501.0900, L7000.1800 #### [facility] [address] [place], [address] C REACTIVE PROTEINon 024 CRP [Mass/Vol] 8.3 mg/L 0 - 10 MG/L [facility] CRP [Mass/Vol] 8.3 mg/L Normal 0-10 [facility] Comment on above: Performed By: #### U MAC, UMIC #### Testing performed at [address] [address] CBCon 10-14-2023 Band form neutrophils/100 WBC (Bld) 2 % Normal 0.0-2.0 [facility] Comment on above: Performed By: #### U MAC, UMIC #### Testing performed at [address] [address] DTYPE MANUAL DIFF Normal [facility] Comment on above: Performed By: #### U MAC, UMIC #### Testing performed at [address] [address] Lymphocytes/100 WBC (Bld) 19 % Low 20.0-55.0 [facility] Comment on above: Performed By: #### U MAC, UMIC #### Testing performed at [address] [address] Monocytes/100 WBC (Bld) 5 % Normal 0.0-10.0 [facility] Comment on above: Performed By: #### U MAC, UMIC #### Testing performed at [address] [address] Neutrophils/100 WBC (Bld) 74 % Normal 37.0-75.0 [facility] Comment on above: Performed By: #### U MAC, UMIC #### Testing performed at [address] [address] PLATELET COMMENT ADEQUATE Normal [facility] Comment on above: Performed By: #### U MAC, UMIC #### Testing performed at [address] [address] RBC morphology finding Nom (Bld) NORMAL Normal [facility] Comment on above: Performed By: #### U MAC, UMIC #### Testing performed at [address] [address] Erythrocyte distribution width (RBC) [Ratio] 14.7 % High 11.5-14.5 [facility] Comment on above: Performed By: #### U MAC, UMIC #### Testing performed at [address] [address] Hematocrit (Bld) [Volume fraction] 34.7 % Low 36.0-48.0 [facility] Comment on above: Performed By: #### U MAC, UMIC #### Testing performed at [address] [address] Hemoglobin (Bld) [Mass/Vol] 11.8 g/dL Low 12.0-16.0 [facility] Comment on above: Performed By: #### U MAC, UMIC #### Testing performed at [address] [address] MCH (RBC) [Entitic mass] 28.2 pg Normal 26.0-35.0 [facility] Comment on above: Performed By: #### U MAC, UMIC #### Testing performed at [address] [address] MCHC (RBC) [Mass/Vol] 33.8 g/dL Normal 27.0-37.0 [facility] Comment on above: Performed By: #### U MAC, UMIC #### Testing performed at [address] [address] MCV (RBC) [Entitic vol] 83.2 fL Normal 80.0-100.0 [facility] Comment on above: Performed By: #### U MAC, UMIC #### Testing performed at [address] [address] Platelet mean volume (Bld) [Entitic vol] 7.7 fL Normal 7.4-11.0 [facility] Comment on above: Performed By: #### U MAC, UMIC #### Testing performed at [address] [address] Platelets (Bld) [#/Vol] 335 10*3/uL Normal 130-400 [facility] Comment on above: Performed By: #### U MAC, UMIC #### Testing performed at [address] [address] RBC (Bld) [#/Vol] 4.17 10*6/uL Normal 4.0-5.4 [facility] Comment on above: Performed By: #### U MAC, UMIC #### Testing performed at [address] [address] WBC (Bld) [#/Vol] 16.3 10*3/uL High 3.6-11.0 [facility] Comment on above: Performed By: #### U MAC, UMIC #### Testing performed at [address] [address] CBC, EDIF, PLATELETon 2023 Differential cell count method Nom (Bld) MANUAL DIFF % [facility] Erythrocyte distribution width (RBC) [Ratio] 14.7 % High 11.5 - 14.5 % [facility] Hematocrit (Bld) [Volume fraction] 34.7 % Low 36.0 - 48.0 % [facility] Hemoglobin (Bld) [Mass/Vol] 11.8 g/dL Low [facility] Immature granulocytes/100 WBC (Bld) 2 % 0.0 - 2.0 % [facility] Interpretation and review of laboratory results Abnormal [facility] Lymphocytes/100 WBC (Bld) 19 % Low 20.0 - 55.0 % [facility] MCH (RBC) [Entitic mass] 28.2 pg 26.0 - 35.0 PG [facility] MCHC (RBC) [Mass/Vol] 33.8 g/dL [facility] MCV (RBC) [Entitic vol] 83.2 fL [facility] Monocytes/100 WBC (Bld) 5 % 0.0 - 10.0 % [facility] Morphology Dillan (Bld) [Interp] NORMAL [facility] Neutrophils/100 WBC (Bld) 74 % 37.0 - 75.0 % [facility] Platelet mean volume (Bld) [Entitic vol] 7.7 fL [facility] Platelet morphology finding Nom (Bld) ADEQUATE [facility] Platelets (Bld) [#/Vol] 335 10*3/uL 130 - 400 10*3/uL [facility] RBC (Bld) [#/Vol] 4.17 10*6/uL 4.0 - 5.4 10*6/uL [facility] WBC (Bld) [#/Vol] 16.3 10*3/uL High 3.6 - 11.0 10*3/uL [facility] ESRon 10-14-2023 ESR (Bld) [Velocity] 33 mm/h High 0-15 [facility] Comment on above: Performed By: #### E SR, MG, CREACT, ACBC, RENF, LIVR ####Testing performed at [place] [id number] [place] [address] HEPATIC FUNCTION PANELon Albumin [Mass/Vol] 4.0 g/dL [facility] ALP [Catalytic activity/Vol] 63 U/L [facility] ALT [Catalytic activity/Vol] 76 U/L High NINF [facility] AST [Catalytic activity/Vol] 61 U/L High [facility] Bilirubin [Mass/Vol] 0.4 mg/dL [facility] Bilirubin.direct [Mass/Vol] 0.2 mg/dL [facility] Protein [Mass/Vol] 6.6 g/dL [facility] LACTATE, BLOODon 10-14-2023 Interpretation and review of laboratory results Abnormal [facility] Lactate [Moles/Vol] 4.5 mmol/L Critically high 0.7 - 2.0 mmol/L [facility] Comment on above: PLEASE REPEAT INITIA L CRITICAL IN 3 HOURS IF ED OR INPATIENT SEPSIS PATIENT Result called to read back by: LINDA 10/14/2023 @ 05:22 by SONG PLUGGER [facility] LACTATE,BLOODon 10-14-2023 Lactate [Moles/Vol] 4.5 mmol/L Critically high 0.7-2.0 [facility] Comment on above: Result Comment: PLEA SE REPEAT INITIAL CRITICAL IN 3 HOURS IF ED OR INPATIENT SEPSIS PATIENT Result called to read back by: LIDNA 10/14/2023 @ 05:22 by SONG PLUGGER Performed By: #### U MAC, UMIC #### Testing performed at [address] [address] LIVER PANELon 10-14-2023 Albumin [Mass/Vol] 4.0 g/dL Normal 2.9-5.3 [facility] Comment on above: Performed By: #### E SR, MG, CREACT, ACBC, RENF, LIVR ####Testing performed at [address] [address] ALP [Catalytic activity/Vol] 63 U/L Normal 38-126 [facility] Comment on above: Performed By: #### E SR, MG, CREACT, ACBC, RENF, LIVR ####Testing performed at [address] [address] ALT [Catalytic activity/Vol] 76 U/L High <35 [facility] Comment on above: Performed By: #### E SR, MG, CREACT, ACBC, RENF, LIVR ####Testing performed at [address] [address] AST [Catalytic activity/Vol] 61 U/L High 14-36 [facility] Comment on above: Performed By: #### E SR, MG, CREACT, ACBC, RENF, LIVR ####Testing performed at [address] [address] Bilirubin [Mass/Vol] 0.4 mg/dL Normal 0.2-1.3 [facility] Comment on above: Performed By: #### E SR, MG, CREACT, ACBC, RENF, LIVR ####Testing performed at [place] [id number] Bilirubin.indirect [Mass/Vol] 0.2 mg/dL Normal 0.0-0.4 [facility] Comment on above: Performed By: #### E SR, MG, CREACT, ACBC, RENF, LIVR ####[place] [address] Protein [Mass/Vol] 6.6 g/dL Normal 6.3-8.2 [facility] Comment on above: Performed By: #### E SR, MG, CREACT, ACBC, RENF, LIVR ####Testing performed at [place] [id number] MAGNESIUMon 10-14-2023 Magnesium [Mass/Vol] 2.5 mg/dL High [facility] Magnesium [Mass/Vol] 2.5 mg/dL High 1.6-2.3 [facility] Comment on above: Performed By: #### U MAC, UMIC #### Testing performed at [address] [address] No Panel Informationon 10-13 Interpretation and review of laboratory results Abnormal [facility] RENAL FUNCTION PANELon 10-13 Albumin [Mass/Vol] 4.0 G/dl 3.5 - 5.0 G/dl [facility] Calcium [Mass/Vol] 8.5 mg/dL [facility] Chloride [Moles/Vol] 102 mmol/L [facility] Comment on above: Please note: Triglyc eride levels of 600mg/dL or higher may positively bias chloride results by approximately 2.1 mmol CO2 [Moles/Vol] 26 mmol/L [facility] Creatinine [Mass/Vol] 0.60 mg/dL Low [facility] GFR COMMENT Average GFR for 30-3 9 years old = 107. [facility] Comment on above: Chronic Kidney disea se, GFR = <60. Kidney failure, GFR = <15. The GFR estimate is not adjusted for extreme body surface area or acute process, nor has it been validated for women or ethnic groups other than and . GFR/1.73 sq M.predicted among blacks MDRD (S/P/Bld) [Vol rate/Area] 151 mL/min/{1.73_m2} ml/min/1.73s q.m [facility] GFR/1.73 sq M.predicted among non-blacks MDRD (S/P/Bld) [Vol rate/Area] 125 mL/min/{1.73_m2} ml/min/1.73s q.m [facility] Glucose post fast [Mass/Vol] 137 mg/dL High [facility] Comment on above: NORMAL <100 mg/dL PREDIABETES 101-126 mg/dL DIABETES 126 mg/dL or higher Interpretation and review of laboratory results Abnormal [facility] Phosphate [Mass/Vol] 3.2 mg/dL [facility] Potassium [Moles/Vol] 3.6 mmol/L [facility] Sodium [Moles/Vol] 136 mmol/L Low [facility] Urea nitrogen [Mass/Vol] 16 mg/dL [facility] RENAL PANEL,FASTINGon 2023 ALBUMIN 4.0 G/dl Normal 3.5-5.0 [facility] Comment on above: Performed By: #### U BUSHRA REYESIC #### Testing performed at [address] [address] Calcium [Mass/Vol] 8.5 mg/dL Normal 8.4-10.2 [facility] Comment on above: Performed By: #### U ERIC, UMIC #### Testing performed at [address] [address] Chloride [Moles/Vol] 102 mmol/L Normal 98-107 [facility] Comment on above: Result Comment: Plea se note: Triglyceride levels of 600mg/dL or higher may positively bias chloride results by approximately 2.1 mmol Performed By: #### U MAC, UMIC #### Testing performed at [address] [address] CO2 [Moles/Vol] 26 mmol/L Normal 22-30 [facility] Comment on above: Performed By: #### U MAC, UMIC #### Testing performed at [address] [address] Creatinine [Mass/Vol] 0.60 mg/dL Low 0.70-1.20 [facility] Comment on above: Performed By: #### U MAC, UMIC #### Testing performed at [address] [address] EST. GFR, 151 ml/min/1.73sq.m [facility] Comment on above: Performed By: #### U MAC, UMIC #### Testing performed at [address] [address] EST. GFR,Non 125 ml/min/1.73sq.m [facility] Comment on above: Performed By: #### U MAC, UMIC #### Testing performed at [address] [address] GFR Information Average GFR for 30-3 9 years old = 107. Normal [facility] Comment on above: Result Comment: Hose Stripper bentley Kidney disease, GFR = <60. Kidney failure, GFR = <15. The GFR estimate is not adjusted for extreme body surface area or acute process, nor has it been validated for women or ethnic groups other than and . Performed By: #### U MAC, UMIC #### Testing performed at [address] [address] Glucose [Mass/Vol] 137 mg/dL High 70-100 [facility] Comment on above: Result Comment: NORMAL <100 mg/dL PREDIABETES 101-126 mg/dL DIABETES 126 mg/dL or higher Performed By: #### U MAC, UMIC #### Testing performed at [address] [address] PHOSPHOROUS 3.2 MG/DL Normal 2.5-4.5 [facility] Comment on above: Performed By: #### U MAC, UMIC #### Testing performed at [address] [address] Potassium [Moles/Vol] 3.6 mmol/L Normal 3.5-5.1 [facility] Comment on above: Performed By: #### U MAC, UMIC #### Testing performed at [address] [address] Sodium [Moles/Vol] 136 mmol/L Low 137-145 [facility] Comment on above: Performed By: #### U MAC, UMIC #### Testing performed at [address] [address] Urea nitrogen [Mass/Vol] 16 mg/dL Normal 7-20 [facility] Comment on above: Performed By: #### U MAC, UMIC #### Testing performed at [address] [address] SEDIMENTATION RATE, AUTOMATE Don 10-14-2023 ESR (Bld) [Velocity] 33 mm/h High [employer] [facility] Interpretation and review of laboratory results Abnormal [facility] ARTERIAL BLOOD GASon 024 Arterial patency Wrist artery --pre arterial puncture Positive [facility] Base excess Calc (BldV) [Moles/Vol] 2.2 mmol/L High [facility] [employer] [facility] Carboxyhemoglobin (Bld) [Mass fraction] 1.2 % [facility] [employer] [facility] CO2 (Bld) [Partial pressure] 30 mm[Hg] Low [employer] [facility] Diagnosis Narrative SOB [facility] [place] [facility] HCO3 (Bld) [Moles/Vol] 24.5 mmol/L [facility] Hemoglobin (Bld) [Mass/Vol] 11.6 g/dL [facility] Interpretation and review of laboratory results Abnormal [facility] Methemoglobin (BldC) [Mass fraction] 0.9 % [facility] [place] [facility] NOTE ROOM AIR [facility] [place] [facility] O2 Device ROOM AIR [facility] [place] [facility] Oxygen (Bld) [Partial pressure] 65 mm[Hg] Low [employer] [facility] Oxyhemoglobin (Bld) [Mass fraction] 93.1 % [employer] PATIENT PO2 SETTINGS 21 [facility] [employer] [facility] pH (Bld) 7.52 [pH] High 7.350 - 7.450 [facility] [place] [facility] Specimen site Narrative RIGHT RADIAL [facility] JOSUE'S TEST Positive [facility] Comment on above: Performed By: #### C OVID #### Testing performed at [address] [address] BASE EXCESS 2.2 mEq/L High 0-2 [facility] Comment on above: Performed By: #### C OVID #### Testing performed at [address] [address] cHCO3 (P,ST)C 24.5 mEq/L Normal 22-26 [facility] Comment on above: Performed By: #### C OVID #### Testing performed at [address] [address] ctHb 11.6 g/dl [facility] Comment on above: Performed By: #### C OVID #### Testing performed at [address] [place] [address] FCOHb 1.2 % [facility] Comment on above: Performed By: #### C OVID #### Testing performed at [address] [place] [address] FMetHb 0.9 % [facility] Comment on above: Performed By: #### C OVID #### Testing performed at [address] [address] FO2Hb 93.1 % [facility] Comment on above: Performed By: #### C OVID #### Testing performed at [address] [place] [address] NOTES: ROOM AIR [facility] Comment on above: Performed By: #### C OVID #### Testing performed at [address] [place] [address] [address] AIR [facility] Comment on above: Performed By: #### C OVID #### Testing performed at [address] [place] [address] [address] SOB [facility] Comment on above: Performed By: #### C OVID #### Testing performed at [address] [address] PATIENT O2 SETTINGS 21 [facility] Comment on above: Performed By: #### C OVID #### Testing performed at [address] [address] pCO2, arterial 30 mmHg Low 35-45 [facility] Comment on above: Performed By: #### C OVID #### Testing performed at [address] [address] pH, arterial 7.52 High 7.350-7.450 [facility] Comment on above: Performed By: #### C OVID #### Testing performed at [address] [address] pO2,arterial 65 mmHg Low 80-100 [facility] Comment on above: Performed By: #### C OVID #### Testing performed at [address] [address] SAMPLE SITE RIGHT RADIAL Normal [facility] Comment on above: Performed By: #### C OVID #### Testing performed at [address] [address] sO2,arterial 95.1 % Normal 95-100 [facility] Comment on above: Performed By: #### C OVID #### Testing performed at [address] [address] C REACTIVE PROTEINon CRP [Mass/Vol] 16.1 mg/L High 0 - 10 MG/L [facility] CRP [Mass/Vol] 16.1 mg/L High 0-10 [facility] Comment on above: Performed By: #### U MAC, UMIC #### Testing performed at [address] [address] CBCon 10-13-2023 ABSOLUTE BAS 0.0 10*3/uL Normal 0.0-0.2 [facility] Comment on above: Performed By: #### U MAC, UMIC #### Testing performed at [address] [address] ABSOLUTE EOS 0.0 10*3/uL Normal 0.0-0.7 [facility] Comment on above: Performed By: #### U MAC, UMIC #### Testing performed at [address] [address] ABSOLUTE NEUTROPHIL COUNT 12.7 10*3/uL High 1.4-6.5 [facility] Comment on above: Performed By: #### U MAC, UMIC #### Testing performed at [address] [place] [address] Basophils/100 WBC (Bld) 0.1 % Normal 0.0-2.0 [facility] Comment on above: Performed By: #### U MAC, UMIC #### Testing performed at [address] [place] [address] DTYPE AUTO DIFF Normal [facility] Comment on above: Performed By: #### U MAC, UMIC #### Testing performed at [address] [place] [address] Eosinophils/100 WBC (Bld) 0.0 % Normal 0.0-11.0 [facility] Comment on above: Performed By: #### U MAC, UMIC #### Testing performed at [address] [place] [address] Lymphocytes (Bld) [#/Vol] 2.5 10*3/uL Normal 1.2-3.4 [facility] Comment on above: Performed By: #### U MAC, UMIC #### Testing performed at [address] [place] [address] Lymphocytes/100 WBC (Bld) 15.8 % Low 20.0-55.0 [facility] Comment on above: Performed By: #### U MAC, UMIC #### Testing performed at [address] [place] [address] Monocytes (Bld) [#/Vol] 0.5 10*3/uL Normal 0.0-0.7 [facility] Comment on above: Performed By: #### U MAC, UMIC #### Testing performed at [address] [place] [address] Monocytes/100 WBC (Bld) 3.4 % Normal 0.0-10.0 [facility] Comment on above: Performed By: #### U MAC, UMIC #### Testing performed at [address] [place] [address] Neutrophils/100 WBC (Bld) 80.7 % High 37.0-75.0 [facility] Comment on above: Performed By: #### U MAC, UMIC #### Testing performed at [address] [place] [address] Erythrocyte distribution width (RBC) [Ratio] 14.9 % High 11.5-14.5 [facility] Comment on above: Performed By: #### U MAC, UMIC #### Testing performed at [address] [place] [address] Hematocrit (Bld) [Volume fraction] 34.6 % Low 36.0-48.0 [facility] Comment on above: Performed By: #### U MAC, UMIC #### Testing performed at [address] [place] [address] Hemoglobin (Bld) [Mass/Vol] 11.7 g/dL Low 12.0-16.0 [facility] Comment on above: Performed By: #### U MAC, UMIC #### Testing performed at [address] [place] [address] MCH (RBC) [Entitic mass] 28.1 pg Normal 26.0-35.0 [facility] Comment on above: Performed By: #### U MAC, UMIC #### Testing performed at [address] [place] [address] MCHC (RBC) [Mass/Vol] 33.8 g/dL Normal 27.0-37.0 [facility] Comment on above: Performed By: #### U MAC, UMIC #### Testing performed at [address] [place] [address] MCV (RBC) [Entitic vol] 83.1 fL Normal 80.0-100.0 [facility] Comment on above: Performed By: #### U MAC, UMIC #### Testing performed at [address] [place] [address] Platelet mean volume (Bld) [Entitic vol] 7.6 fL Normal 7.4-11.0 [facility] Comment on above: Performed By: #### U MAC, UMIC #### Testing performed at [address] [place] [address] Platelets (Bld) [#/Vol] 325 10*3/uL Normal 130-400 [facility] Comment on above: Performed By: #### U MAC, UMIC #### Testing performed at [place] [address] [facility] [address] RBC (Bld) [#/Vol] 4.16 10*6/uL Normal 4.0-5.4 [facility] Comment on above: Performed By: #### U MAC, [facility] #### Testing performed at [address] [address] WBC (Bld) [#/Vol] 15.7 10*3/uL High 3.6-11.0 [facility] Comment on above: Performed By: #### U MAC, [facility] #### Testing performed at [address] [place] [address] CBC, EDIF, PLATELETon 2023 ABSOLUTE BASOPHIL COUNT 0.0 10*3/uL 0.0 - 0.2 10*3/uL [facility] Basophils/100 WBC (Bld) 0.1 % 0.0 - 2.0 % [facility] Differential cell count method Nom (Bld) AUTO DIFF % [facility] Eosinophils (Bld) [#/Vol] 0.0 10*3/uL 0.0 - 0.7 10*3/uL [facility] Eosinophils/100 WBC (Bld) 0.0 % 0.0 - 11.0 % [facility] Erythrocyte distribution width (RBC) [Ratio] 14.9 % High 11.5 - 14.5 % [facility] Hematocrit (Bld) [Volume fraction] 34.6 % Low 36.0 - 48.0 % [facility] Hemoglobin (Bld) [Mass/Vol] 11.7 g/dL Low [facility] Interpretation and review of laboratory results Abnormal [facility] Lymphocytes (Bld) [#/Vol] 2.5 10*3/uL 1.2 - 3.4 10*3/uL [facility] Lymphocytes/100 WBC (Bld) 15.8 % Low 20.0 - 55.0 % [facility] MCH (RBC) [Entitic mass] 28.1 pg 26.0 - 35.0 PG [facility] MCHC (RBC) [Mass/Vol] 33.8 g/dL [facility] MCV (RBC) [Entitic vol] 83.1 fL [facility] Monocytes (Bld) [#/Vol] 0.5 10*3/uL 0.0 - 0.7 10*3/uL [facility] Monocytes/100 WBC (Bld) 3.4 % 0.0 - 10.0 % [facility] Neutrophils (Bld) [#/Vol] 12.7 10*3/uL High 1.4 - 6.5 10*3/uL [facility] Neutrophils/100 WBC (Bld) 80.7 % High 37.0 - 75.0 % [facility] Platelet mean volume (Bld) [Entitic vol] 7.[address] [facility] Platelets (Bld) [#/Vol] 325 10*3/uL 130 - 400 10*3/uL [facility] RBC (Bld) [#/Vol] 4.16 10*6/uL 4.0 - 5.4 10*6/uL [facility] WBC (Bld) [#/Vol] 15.7 10*3/uL High 3.6 - 11.0 10*3/uL [facility] Cardiac echo study Procedure on 10-13-2023 [...] Doppler, and color-flow Echocardiogram Imaging system used: GE 2D Dimensions IVSd 1.0 cm F: 0.6-0.9 [...] ms MVA PHT 3.94 cm2 MV Dec [place] 482.74 cm/s2 MV Decel. Time 223.67 (160-240 ms) Pulmonary Valve PV Peak Velocity 1.0 (0.5-1.5 m/s) DC End VMAX 1.8 m/s PV maxPG 4.0 mmHg PV Vmax 1.0 m/s DC End PG 8.93 mmHg Tricuspid Valve TR P. Velocity 2.60 m/s RAP Estimate 8 mmHg RVSP 35.13 mmHg TR maxPG 27.13 mmHg S' 0.13 m/s M-Mode Aortic Cusp Exc 1.79 cm CARDIOLOGY Denny Pineda, - 10/13/2023 ADDENDUM APPROVED REPORT Other Information [...] Doppler, and color-flow Echocardiogram Imaging system used: GE 2D Dimensions IVSd 1.0 cm F: 0.6-0.9LVEF (Tavarez's)75.66 % F: 54 - 74 PWd 1.0 cm F: 0.6 - 0.9EF AP4-a2DQ71.27 % LVDd 5.4 cm F: 3.8 - 5.2EF AP2-a2DQ79.24 % LVDs 3.15 cm F: 2.2 - 3.5EF BP-a2DQ75.66 % Aortic Root 2.75 cm F: 2.7 - 3.0GDYIN34 mL Aortic Root Index1.2 cm/u2XALVB28.28 mL F: 46 - 106 Ascending Aorta 3.26 cm F: 2.3 - 3.1LV Volume Index40.40 mL/m2 F: 29 - 61 Ascending Aorta Index: 1.5 cm/m2LA Voxgkg17.7 mL Left Atrium 4.28 cm F: 2.7 [...] MV PHT55.78 msMVA PHT3.94 cm2 MV Dec [place] 482.74 cm/s2MV Decel. Vvqt299.67 (160-240 ms) Pulmonary Valve PV Peak Velocity1.0 (0.5-1.5 m/s)DC End VMAX1.8 m/s PV maxPG4.0 mmHgPV Vmax1.0 m/s DC End PG 8.93 mmHg Tricuspid Valve TR P. Velocity2.60 m/sRAP Estimate8 mmHg RVSP35.13 mmHgTR maxPG 27.13 mmHg S'0.13 m/s M-Mode Aortic Cusp Exc1.79 cm [facility] Radiology Study observation (narrative) [facility] Cardiac echo study Procedure Ordered By: Denny Pineda on 10-13-2023 [facility] Work Phone: ESRon 10-13-2023 ESR (Bld) [Velocity] 43 mm/h High 0-15 [facility] Comment on above: Performed By: #### U MAC, [facility] #### Testing performed at [address] [address] LACTATE, BLOODon 10-13-2023 Interpretation and review of laboratory results Abnormal [facility] Lactate [Moles/Vol] 4.6 mmol/L Critically high 0.7 - 2.0 mmol/L [facility] Comment on above: PLEASE REPEAT INITIA L CRITICAL IN 3 HOURS IF ED OR INPATIENT SEPSIS PATIENT Result called to read back by: KENNA 10/13/2023 @ 11:39 by SONG PLUGGER [facility] Interpretation and review of laboratory results Abnormal [facility] Lactate [Moles/Vol] 5.0 mmol/L Critically high 0.7 - 2.0 mmol/L [facility] Comment on above: PLEASE REPEAT INITIA L CRITICAL IN 3 HOURS IF ED OR INPATIENT SEPSIS PATIENT Result called to read back by: JARETT NAIR 10/13/2023 @ 05:30 by HRE [facility] Interpretation and review of laboratory results Abnormal [facility] Lactate [Moles/Vol] 4.2 mmol/L Critically high 0.7 - 2.0 mmol/L [facility] Comment on above: PLEASE REPEAT INITIA L CRITICAL IN 3 HOURS IF ED OR INPATIENT SEPSIS PATIENT Result called to read back by: JUANJO DANIEL 10/13/2023 @ 00:30 by DIANA [facility] LACTATE,BLOODon 10-13-2023 Lactate [Moles/Vol] 4.6 mmol/L Critically high 0.7-2.0 [facility] Comment on above: Result Comment: PLEA SE REPEAT INITIAL CRITICAL IN 3 HOURS IF ED OR INPATIENT SEPSIS PATIENT Result called to read back by: KENNA 10/13/2023 @ 11:39 by SONG PLUGGER Performed By: #### C OVID #### Testing performed at [address] [address] Lactate [Moles/Vol] 5.0 mmol/L Critically high 0.7-2.0 [facility] Comment on above: Result Comment: PLEA SE REPEAT INITIAL CRITICAL IN 3 HOURS IF ED OR INPATIENT SEPSIS PATIENT Result called to read back by: JARETT NAIR 10/13/2023 @ 05:30 by HRE Performed By: #### U MAC, [facility] #### Testing performed at [address] [address] Lactate [Moles/Vol] 4.2 mmol/L Critically high 0.7-2.0 [facility] Comment on above: Result Comment: PLEA SE REPEAT INITIAL CRITICAL IN 3 HOURS IF ED OR INPATIENT SEPSIS PATIENT Result called to read back by: JUANJO DANIEL 10/13/2023 @ 00:30 by DIANA Performed By: #### U MAC, [facility] #### Testing performed at [address] [address] MAGNESIUMon 10-13-2023 Magnesium [Mass/Vol] 2.1 mg/dL [facility] Magnesium [Mass/Vol] 2.1 mg/dL Normal 1.6-2.3 [facility] Comment on above: Performed By: #### U MAC, [facility] #### Testing performed at [facility] [address] [place] [address] No Panel Informationon 10-12 Interpretation and review of laboratory results Abnormal [facility] RENAL FUNCTION PANELon 10-12 Albumin [Mass/Vol] 3.6 G/dl 3.5 - 5.0 G/dl [facility] Calcium [Mass/Vol] 8.7 mg/dL [facility] Chloride [Moles/Vol] 104 mmol/L [facility] Comment on above: Please note: Triglyc eride levels of 600mg/dL or higher may positively bias chloride results by approximately 2.1 mmol CO2 [Moles/Vol] 23 mmol/L [facility] Creatinine [Mass/Vol] 0.50 mg/dL Low [facility] GFR COMMENT Average GFR for 30-3 9 years old = 107. [facility] Comment on above: Chronic Kidney disea se, GFR = <60. Kidney failure, GFR = <15. The GFR estimate is not adjusted for extreme body surface area or acute process, nor has it been validated for women or ethnic groups other than and . GFR/1.73 sq M.predicted among blacks MDRD (S/P/Bld) [Vol rate/Area] 186 mL/min/{1.73_m2} ml/min/1.73s q.m [facility] GFR/1.73 sq M.predicted among non-blacks MDRD (S/P/Bld) [Vol rate/Area] 154 mL/min/{1.73_m2} ml/min/1.73s q.m [facility] Glucose post fast [Mass/Vol] 151 mg/dL High [facility] Comment on above: NORMAL <100 mg/dL PREDIABETES 101-126 mg/dL DIABETES 126 mg/dL or higher Phosphate [Mass/Vol] 2.8 mg/dL [facility] Potassium [Moles/Vol] 3.9 mmol/L [facility] Sodium [Moles/Vol] 135 mmol/L Low [facility] Urea nitrogen [Mass/Vol] 15 mg/dL [facility] RENAL PANEL,FASTINGon 2023 ALBUMIN 3.6 G/dl Normal 3.5-5.0 [facility] Comment on above: Performed By: #### U MAC, [facility] #### Testing performed at [address] [address] Calcium [Mass/Vol] 8.7 mg/dL Normal 8.4-10.2 [facility] Comment on above: Performed By: #### U MAC, [facility] #### Testing performed at [place] [id number] Chloride [Moles/Vol] 104 mmol/L Normal 98-107 [facility] Comment on above: Result Comment: Klaus baptiste note: Triglyceride levels of 600mg/dL or higher may positively bias chloride results by approximately 2.1 mmol Performed By: #### U MAC, [facility] #### Testing performed at [address] [address] CO2 [Moles/Vol] 23 mmol/L Normal 22-30 [facility] Comment on above: Performed By: #### U MAC, [facility] #### Testing performed at [address] [address] Creatinine [Mass/Vol] 0.50 mg/dL Low 0.70-1.20 [facility] Comment on above: Performed By: #### U MAC, [facility] #### Testing performed at [address] [address] EST. GFR, 186 ml/min/1.73sq.m [facility] Comment on above: Performed By: #### U MAC, [facility] #### Testing performed at [address] [address] EST. GFR,Non 154 ml/min/1.73sq.m [facility] Comment on above: Performed By: #### U MAC, [facility] #### Testing performed at [address] [address] GFR Information Average GFR for 30-3 9 years old = 107. Normal [facility] Comment on above: Result Comment: Hose Stripper bentley Kidney disease, GFR = <60. Kidney failure, GFR = <15. The GFR estimate is not adjusted for extreme body surface area or acute process, nor has it been validated for women or ethnic groups other than and . Performed By: #### U MAC, [facility] #### Testing performed at [address] [address] Glucose [Mass/Vol] 151 mg/dL High 70-100 [facility] Comment on above: Result Comment: NORMAL <100 mg/dL PREDIABETES 101-126 mg/dL DIABETES 126 mg/dL or higher Performed By: #### U MAC, [facility] #### Testing performed at [address] [address] PHOSPHOROUS 2.8 MG/DL Normal 2.5-4.5 [facility] Comment on above: Performed By: #### U MAC, [facility] #### Testing performed at [address] [address] Potassium [Moles/Vol] 3.9 mmol/L Normal 3.5-5.1 [facility] Comment on above: Performed By: #### U MAC, [facility] #### Testing performed at [address] [address] Sodium [Moles/Vol] 135 mmol/L Low 137-145 [facility] Comment on above: Performed By: #### U MAC, [facility] #### Testing performed at [address] [address] Urea nitrogen [Mass/Vol] 15 mg/dL Normal 7-20 [facility] Comment on above: Performed By: #### U MAC, [facility] #### Testing performed at [address] [address] SEDIMENTATION RATE, AUTOMATE Don 10-13-2023 ESR (Bld) [Velocity] 43 mm/h [facility] Interpretation and review of laboratory results Abnormal [facility] XR CHEST PA 1 VIEWon 024 [...] the exam of one day prior. Normal [facility] XR Chest PA uprighton 2023 IMPRESSION: 1. [...] parikh are still relatively clear. RADIOLOGY Nissa Newby, DO - 10/13/2023 EXAM: XR CHEST PA [...] from the exam of one day prior. [facility] Radiology Study observation (narrative) [facility] XR Chest PA uprightOrdered B y: Nissa Newby on 10-13-2023 [facility] B TYPE NATRIURETIC PEPTIDEon 10-12-2023 Natriuretic peptide B (Bld) [Mass/Vol] 68 pg/mL Normal [facility] Comment on above: Performed By: #### E SR, BNP, CREACT ####Testing performed at [place] [id number] B-TYPE NATRIURETIC PEPTIDE ( BRAIN)on 10-12-2023 Natriuretic peptide B (Bld) [Mass/Vol] 68 pg/mL [facility] C REACTIVE PROTEINon 024 CRP [Mass/Vol] 35.0 mg/L High 0 - 10 MG/L [facility] Interpretation and review of laboratory results Abnormal [facility] CRP [Mass/Vol] 35.0 mg/L High 0-10 [facility] Comment on above: Performed By: #### E SR, BNP, [facility]ACT ####Testing performed at [place] [id number] CBCon 10-12-2023 ABSOLUTE BAS 0.0 10*3/uL Normal 0.0-0.2 [facility] Comment on above: Performed By: #### R ENF MG ACBC ####Testing performed at [place] [id number] ABSOLUTE EOS 0.0 10*3/uL Normal 0.0-0.7 [facility] Comment on above: Performed By: #### R ENFMG ACBC ####Testing performed at [place] [id number] ABSOLUTE NEUTROPHIL COUNT 12.1 10*3/uL High 1.4-6.5 [facility] Comment on above: Performed By: #### R ENF MG, [facility] ####Testing performed at [place] [id number] Basophils/100 WBC (Bld) 0.1 % Normal 0.0-2.0 [facility] Comment on above: Performed By: #### R ENF MG ACBC ####Testing performed at [place] [id number] DTYPE AUTO DIFF Normal [facility] Comment on above: Performed By: #### R ENF MG, [facility]BC ####[place] [address] Eosinophils/100 WBC (Bld) 0.0 % Normal 0.0-11.0 [facility] Comment on above: Performed By: #### R MG KENJI ACBC ####Testing performed at [address] [address] Lymphocytes (Bld) [#/Vol] 1.4 10*3/uL Normal 1.2-3.4 [facility] Comment on above: Performed By: #### R ENMG Priscilla ACBC ####Testing performed at [address] [address] Lymphocytes/100 WBC (Bld) 10.2 % Low 20.0-55.0 [facility] Comment on above: Performed By: #### R MG KENJI ACBC ####Testing performed at [address] [address] Monocytes (Bld) [#/Vol] 0.5 10*3/uL Normal 0.0-0.7 [facility] Comment on above: Performed By: #### R MG KENJI ACBC ####Testing performed at [address] [address] Monocytes/100 WBC (Bld) 3.5 % Normal 0.0-10.0 [facility] Comment on above: Performed By: #### MG KENYATTA ACBC ####Testing performed at [address] [address] Neutrophils/100 WBC (Bld) 86.2 % High 37.0-75.0 [facility] Comment on above: Performed By: #### R ENMG Priscilla ACBC ####Testing performed at [address] [address] Erythrocyte distribution width (RBC) [Ratio] 14.7 % High 11.5-14.5 [facility] Comment on above: Performed By: #### R MG KENJI ACBC ####Testing performed at [address] [address] Hematocrit (Bld) [Volume fraction] 35.5 % Low 36.0-48.0 [facility] Comment on above: Performed By: #### R ENF, MG, ACBC ####Testing performed at [address] [address] Hemoglobin (Bld) [Mass/Vol] 11.9 g/dL Low 12.0-16.0 [facility] Comment on above: Performed By: #### R ENF MG, ACBC ####Testing performed at [address] [address] MCH (RBC) [Entitic mass] 27.9 pg Normal 26.0-35.0 [facility] Comment on above: Performed By: #### R ENF MG, ACBC ####Testing performed at [address] [address] MCHC (RBC) [Mass/Vol] 33.5 g/dL Normal 27.0-37.0 [facility] Comment on above: Performed By: #### R ENF MG, ACBC ####Testing performed at [place] [id number] MCV (RBC) [Entitic vol] 83.3 fL Normal 80.0-100.0 [facility] Comment on above: Performed By: #### R ENF MG, ACBC ####Testing performed at [place] [id number] Platelet mean volume (Bld) [Entitic vol] 7.9 fL Normal 7.4-11.0 [facility] Comment on above: Performed By: #### R ENF MG, ACBC ####Testing performed at [address] [address] Platelets (Bld) [#/Vol] 292 10*3/uL Normal 130-400 [facility] Comment on above: Performed By: #### R ENF MG, ACBC ####Testing performed at [address] [address] RBC (Bld) [#/Vol] 4.26 10*6/uL Normal 4.0-5.4 [facility] Comment on above: Performed By: #### R ENF MG, ACBC ####Testing performed at [address] [address] WBC (Bld) [#/Vol] 14.0 10*3/uL High 3.6-11.0 [facility] Comment on above: Performed By: #### R ENF, MG, ACANTOLIN ####Testing performed at [facility] [place] [address] CBC, EDIF, PLATELETon 2023 ABSOLUTE BASOPHIL COUNT 0.0 10*3/uL 0.0 - 0.2 10*3/uL [facility] Basophils/100 WBC (Bld) 0.1 % 0.0 - 2.0 % [facility] Differential cell count method Nom (Bld) AUTO DIFF % [facility] Eosinophils (Bld) [#/Vol] 0.0 10*3/uL 0.0 - 0.7 10*3/uL [facility] Eosinophils/100 WBC (Bld) 0.0 % 0.0 - 11.0 % [facility] Erythrocyte distribution width (RBC) [Ratio] 14.7 % High 11.5 - 14.5 % [facility] Hematocrit (Bld) [Volume fraction] 35.5 % Low 36.0 - 48.0 % [facility] Hemoglobin (Bld) [Mass/Vol] 11.9 g/dL Low [facility] Interpretation and review of laboratory results Abnormal [facility] Lymphocytes (Bld) [#/Vol] 1.4 10*3/uL 1.2 - 3.4 10*3/uL [facility] Lymphocytes/100 WBC (Bld) 10.2 % Low 20.0 - 55.0 % [facility] MCH (RBC) [Entitic mass] 27.9 pg 26.0 - 35.0 PG [facility] MCHC (RBC) [Mass/Vol] 33.5 g/dL [facility] MCV (RBC) [Entitic vol] 83.3 fL [facility] Monocytes (Bld) [#/Vol] 0.5 10*3/uL 0.0 - 0.7 10*3/uL [facility] Monocytes/100 WBC (Bld) 3.5 % 0.0 - 10.0 % [facility] Neutrophils (Bld) [#/Vol] 12.1 10*3/uL High 1.4 - 6.5 10*3/uL [facility] Neutrophils/100 WBC (Bld) 86.2 % High 37.0 - 75.0 % [facility] Platelet mean volume (Bld) [Entitic vol] 7.[address] [facility] Platelets (Bld) [#/Vol] 292 10*3/uL 130 - 400 10*3/uL [facility] RBC (Bld) [#/Vol] 4.26 10*6/uL 4.0 - 5.4 10*6/uL [facility] WBC (Bld) [#/Vol] 14.0 10*3/uL High 3.6 - 11.0 10*3/uL [facility] ESRon 10-12-2023 ESR (Bld) [Velocity] 53 mm/h High 0-15 [facility] Comment on above: Performed By: #### E SR, BNP, CREACT ####Testing performed at [place] [id number] [place] [address] LACTATE, BLOODon 10-12-2023 Interpretation and review of laboratory results Abnormal [facility] Lactate [Moles/Vol] 3.7 mmol/L Critically high 0.7 - 2.0 mmol/L [facility] Comment on above: PLEASE REPEAT INITIA L CRITICAL IN 3 HOURS IF ED OR INPATIENT SEPSIS PATIENT Result called to read back by: JOANIE DENSON 10/12/2023 @ 21:17 by [facility] Interpretation and review of laboratory results Abnormal [facility] Lactate [Moles/Vol] 3.6 mmol/L Critically high 0.7 - 2.0 mmol/L [facility] Comment on above: PLEASE REPEAT INITIA L CRITICAL IN 3 HOURS IF ED OR INPATIENT SEPSIS PATIENT Result called to read back by: JOANIE THOMPSON 10/12/2023 @ 18:15 by [facility] Interpretation and review of laboratory results Abnormal [facility] Lactate [Moles/Vol] 4.2 mmol/L Critically high 0.7 - 2.0 mmol/L [facility] Comment on above: PLEASE REPEAT INITIA L CRITICAL IN 3 HOURS IF ED OR INPATIENT SEPSIS PATIENT Result called to read back by: VIRGINIA 10/12/2023 @ 14:54 by [facility] Interpretation and review of laboratory results Abnormal [facility] Lactate [Moles/Vol] 4.7 mmol/L Critically high 0.7 - 2.0 mmol/L [facility] Comment on above: PLEASE REPEAT INITIA L CRITICAL IN 3 HOURS IF ED OR INPATIENT SEPSIS PATIENT Result called to read back by: VIRGINIA 10/12/2023 @ 13:11 by WB [facility] LACTATE,BLOODon 10-12-2023 Lactate [Moles/Vol] 3.7 mmol/L Critically high 0.7-2.0 [facility] Comment on above: Result Comment: PLEA SE REPEAT INITIAL CRITICAL IN 3 HOURS IF ED OR INPATIENT SEPSIS PATIENT Result called to read back by: JOANIE DENSON 10/12/2023 @ 21:17 by ALL Performed By: #### L ACTAC ####Testing performed at [address] [place] [address] Lactate [Moles/Vol] 3.6 mmol/L Critically high 0.7-2.0 [facility] Comment on above: Result Comment: PLEA SE REPEAT INITIAL CRITICAL IN 3 HOURS IF ED OR INPATIENT SEPSIS PATIENT Result called to read back by: JOANIE THOMPSON 10/12/2023 @ 18:15 by DIANA Performed By: #### U MAC, UMIC #### Testing performed at [address] [address] Lactate [Moles/Vol] 4.2 mmol/L Critically high 0.7-2.0 [facility] Comment on above: Result Comment: PLEA SE REPEAT INITIAL CRITICAL IN 3 HOURS IF ED OR INPATIENT SEPSIS PATIENT Result called to read back by: VIRGINIA 10/12/2023 @ 14:54 by WB Performed By: #### U MAC, UMIC #### Testing performed at [address] [address] Lactate [Moles/Vol] 4.7 mmol/L Critically high 0.7-2.0 [facility] Comment on above: Result Comment: PLEA SE REPEAT INITIAL CRITICAL IN 3 HOURS IF ED OR INPATIENT SEPSIS PATIENT Result called to read back by: VIRGINIA 10/12/2023 @ 13:11 by WB Performed By: #### U MAC, UMIC #### Testing performed at [address] [address] MAGNESIUMon 10-12-2023 Magnesium [Mass/Vol] 2.0 mg/dL [facility] Magnesium [Mass/Vol] 2.0 mg/dL Normal 1.6-2.3 [facility] Comment on above: Performed By: #### R ENF, MG, ACBC ####Testing performed at [facility] [place] [address] No Panel Informationon 10-11 [facility] PROCALCITONINon 10-12-2023 PROCALCITONIN 0.06 ng/mL 0.00 - 0.25 ng/mL [facility] Comment on above: PCT Interpretation Less than 0.10 ng/mL, antibiotic therapy strongly discouraged. 0.10-0.25 ng/mL, antibiotic therapy discouraged. 0.25-0.50 ng/mL, antibiotic therapy encouraged. Greater than 0.50 ng/mL, antibiotic therapy strongly encouraged. [facility] PROCALCITONIN 0.06 ng/mL Normal 0.00-0.25 [facility] Comment on above: Result Comment: PCT Interpretation Less than 0.10 ng/mL, antibiotic therapy strongly discouraged. 0.10-0.25 ng/mL, antibiotic therapy discouraged. 0.25-0.50 ng/mL, antibiotic therapy encouraged. Greater than 0.50 ng/mL, antibiotic therapy strongly encouraged. Performed By: #### U MAC, UMIC #### Testing performed at [facility] [address] [place] [address] Portable XR Chest Viewson IMPRESSION: Bibasilar consolidation [...] IMPRESSION: Bibasilar consolidation with bilateral pleural effusions. [facility] Study observation (narrative) [facility] Portable XR Chest ViewsOrder ed By: Willie Stapleton on 10-12-2023 [facility] Work Phone: RENAL FUNCTION PANELon 10-11 Albumin [Mass/Vol] 3.7 G/dl 3.5 - 5.0 G/dl [facility] Calcium [Mass/Vol] 8.5 mg/dL [facility] Chloride [Moles/Vol] 109 mmol/L High [facility] Comment on above: Please note: Triglyc eride levels of 600mg/dL or higher may positively bias chloride results by approximately 2.1 mmol CO2 [Moles/Vol] 19 mmol/L Low [facility] Creatinine [Mass/Vol] 0.50 mg/dL Low [facility] GFR COMMENT Average GFR for 30-3 9 years old = 107. [facility] Comment on above: Chronic Kidney disea se, GFR = <60. Kidney failure, GFR = <15. The GFR estimate is not adjusted for extreme body surface area or acute process, nor has it been validated for women or ethnic groups other than and . GFR/1.73 sq M.predicted among blacks MDRD (S/P/Bld) [Vol rate/Area] 186 mL/min/{1.73_m2} ml/min/1.73s q.m [facility] GFR/1.73 sq M.predicted among non-blacks MDRD (S/P/Bld) [Vol rate/Area] 154 mL/min/{1.73_m2} ml/min/1.73s q.m [facility] Glucose post fast [Mass/Vol] 209 mg/dL High [facility] Comment on above: NORMAL <100 mg/dL PREDIABETES 101-126 mg/dL DIABETES 126 mg/dL or higher Interpretation and review of laboratory results Abnormal [facility] Phosphate [Mass/Vol] 2.3 mg/dL Low [facility] Potassium [Moles/Vol] 3.5 mmol/L [facility] Sodium [Moles/Vol] 137 mmol/L [facility] Urea nitrogen [Mass/Vol] 13 mg/dL [facility] RENAL PANEL,FASTINGon 2023 ALBUMIN 3.7 G/dl Normal 3.5-5.0 [facility] Comment on above: Performed By: #### R ENF MG, ACBC ####[place] [address] Calcium [Mass/Vol] 8.5 mg/dL Normal 8.4-10.2 [facility] Comment on above: Performed By: #### R ENF MG, ACBC ####[place] [address] Chloride [Moles/Vol] 109 mmol/L High 98-107 [facility] Comment on above: Result Comment: Klaus baptiste note: Triglyceride levels of 600mg/dL or higher may positively bias chloride results by approximately 2.1 mmol Performed By: #### R ENF MG, ACBC ####[place] [address] CO2 [Moles/Vol] 19 mmol/L Low 22-30 [facility] Comment on above: Performed By: #### R ENF MG, ACBC ####[place] [address] Creatinine [Mass/Vol] 0.50 mg/dL Low 0.70-1.20 [facility] Comment on above: Performed By: #### R ENF MG, ACBC ####Testing performed at [place] [id number] EST. GFR, 186 ml/min/1.73sq.m [facility] Comment on above: Performed By: #### R ENF MG, ACBC ####Testing performed at [place] [id number] EST. GFR,Non 154 ml/min/1.73sq.m [facility] Comment on above: Performed By: #### R ENF MG, ACBC ####[place] [address] GFR Information Average GFR for 30-3 9 years old = 107. Normal [facility] Comment on above: Result Comment: Hose Stripper bentley Kidney disease, GFR = <60. Kidney failure, GFR = <15. The GFR estimate is not adjusted for extreme body surface area or acute process, nor has it been validated for women or ethnic groups other than and . Performed By: #### R MG PHILLIP ACBC ####[place] [address] Glucose [Mass/Vol] 209 mg/dL High 70-100 [facility] Comment on above: Result Comment: NORMAL <100 mg/dL PREDIABETES 101-126 mg/dL DIABETES 126 mg/dL or higher Performed By: #### R MG PHILLIP ACBC ####[place] [address] PHOSPHOROUS 2.3 MG/DL Low 2.5-4.5 [facility] Comment on above: Performed By: #### MG YOU ACBC ####Testing performed at [place] [id number] Potassium [Moles/Vol] 3.5 mmol/L Normal 3.5-5.1 [facility] Comment on above: Performed By: #### MG YOU ACBC ####Testing performed at [place] [id number] Sodium [Moles/Vol] 137 mmol/L Normal 137-145 [facility] Comment on above: Performed By: #### MG YOU ACBC ####Testing performed at [place] [id number] Urea nitrogen [Mass/Vol] 13 mg/dL Normal 7-20 [facility] Comment on above: Performed By: #### R MG PHILLIP ACBC ####Testing performed at [address] [address] SEDIMENTATION RATE, AUTOMATE Don 10-12-2023 ESR (Bld) [Velocity] 53 mm/h [facility] Interpretation and review of laboratory results Abnormal [facility] TROPONIN I, HIGH SENSITIVITY on 10-12-2023 TROPONIN I, HIGH SENSITIVITY 3 pg/mL 0 - 12 pg/mL [facility] Comment on above: Indeterminant: >12 to 100 pg/mL female >20 to 100 pg/mL male Indicative of myocardial injury. Serial sampling is recommended, a change of greater than or equal to 20 pg/mL is indicative of acute coronary syndrome. [facility] TROPONIN I, HIGH SENSITIVITY 3 pg/mL Normal 0-12 [facility] Comment on above: Result Comment: Indeterminant: >12 to 100 pg/mL female >20 to 100 pg/mL male Indicative of myocardial injury. Serial sampling is recommended, a change of greater than or equal to 20 pg/mL is indicative of acute coronary syndrome. Performed By: #### T [facility] ####Testing performed at [place] [id number] TROPONIN I, HIGH SENSITIVITY 3 pg/mL 0 - 12 pg/mL [facility] Comment on above: Indeterminant: >12 to 100 pg/mL female >20 to 100 pg/mL male Indicative of myocardial injury. Serial sampling is recommended, a change of greater than or equal to 20 pg/mL is indicative of acute coronary syndrome. [facility] TROPONIN I, HIGH SENSITIVITY 3 pg/mL Normal 0-12 [facility] Comment on above: Result Comment: Indeterminant: >12 to 100 pg/mL female >20 to 100 pg/mL male Indicative of myocardial injury. Serial sampling is recommended, a change of greater than or equal to 20 pg/mL is indicative of acute coronary syndrome. Performed By: #### U [facility] #### Testing performed at [address] [address] URINALYSIS, MACROon 10-12-19 24 Bilirubin Ql (U) Negative NEGATIVE [facility] [place] Clarity (U) CLEAR CLEAR [facility] [place] Color (U) YELLOW YELLOW [facility] [place] Glucose Test strip (U) [Mass/Vol] 500 mg/dl Abnormal NEGATIVE [facility] [place] Hemoglobin Ql (U) SMALL Abnormal NEGATIVE [facility] [place] Interpretation and review of laboratory results Abnormal [facility] [place] Ketones (U) [Mass/Vol] Negative NEGAT ZARIA mg/dl [facility] Leukocyte esterase Test strip Ql (U) Negative NEGATIVE [facility] [place] Nitrite Ql (U) Negative NEGATIVE [facility] [place] pH (U) 6.5 [pH] 5.0 - 7.0 [facility] Protein Ql (U) 100 mg/dl Abnormal NEGATIVE [facility] Specific gravity (U) [Rel density] 1.025 1.010 - 1.025 [facility] Urobilinogen (U) [Mass/Vol] 0.2 mg/dL [facility] URINE MACROSCOPICon 10-12-19 24 Bilirubin Ql (U) Negative Normal NEGATIVE [facility] Comment on above: Performed By: #### U [facility], [facility] #### Testing performed at [address] [address] Clarity (U) CLEAR Normal CLEAR [facility] Comment on above: Performed By: #### U MAC, [facility] #### Testing performed at [address] [address] Color (U) YELLOW Normal YELLOW [facility] Comment on above: Performed By: #### U MAC, [facility] #### Testing performed at [address] [address] Glucose Ql (U) 500 mg/dl Abnormal NEGATIVE [facility] Comment on above: Performed By: #### U MAC, [facility] #### Testing performed at [address] [address] pH (U) 6.5 [pH] Normal 5.0-7.0 [facility] Comment on above: Performed By: #### U MAC, [facility] #### Testing performed at [address] [address] Protein (U) [Mass/Vol] 100 mg/dL Abnormal NEGATIVE [facility] Comment on above: Performed By: #### U MAC, [facility] #### Testing performed at [address] [place] [address] URINE HEMOGLOBIN SMALL Abnormal NEGATIVE [facility] Comment on above: Performed By: #### U MAC, [facility] #### Testing performed at [address] [address] URINE KETONE Negative Normal NEGATIVE [facility] Comment on above: Performed By: #### U MAC, [facility] #### Testing performed at [address] [address] URINE LEUKOTEST Negative Normal NEGATIVE [facility] Comment on above: Performed By: #### U MAC, [facility] #### Testing performed at [address] [place] [address] URINE NITRATES Negative Normal NEGATIVE [facility] Comment on above: Performed By: #### U MAC, [facility] #### Testing performed at [address] [address] URINE SPEC GRAVITY 1.025 Normal 1.010-1.025 [facility] Comment on above: Performed By: #### U MAC, [facility] #### Testing performed at [address] [address] Urobilinogen Qn (U) 0.2 {Dell'U}/dL Normal 0.2-1.0 [facility] Comment on above: Performed By: #### U MAC, [facility] #### Testing performed at [address] [address] URINE MICROSCOPICon 10-12-19 24 Bacteria LM.HPF (Urine sed) [#/Area] Negative NEGATIVE [facility] Casts LM.LPF (Urine sed) [#/Area] NONE NONE /LPF [facility] Crystals LM Nom (Urine sed) NONE NONE [facility] Epithelial cells LM Ql (Urine sed) 1 TO 5 /HPF [facility] Mucus Ql (Urine sed) Negative NEGATIVE [facility] RBC LM.HPF (Urine sed) [#/Area] Negative NEGATIVE /HPF [facility] Urine sediment comments LM Dillan (Urine sed) CULTURE CRITERIA NOT MET, NO CULTURE PERFORMED. [facility] WBC LM.HPF (Urine sed) [#/Area] Negative NEGATIVE /HPF [facility] Bacteria LM.HPF (Urine sed) [#/Area] Negative Normal NEGATIVE [facility] Comment on above: Performed By: #### U MAC, [facility] #### Testing performed at [address] [address] CASTS NONE Normal NONE [facility] Comment on above: Performed By: #### U MAC, [facility] #### Testing performed at [address] [address] CRYSTAL NONE Normal NONE [facility] Comment on above: Performed By: #### U MAC, [facility] #### Testing performed at [address] [address] Epithelial cells LM Ql (Urine sed) 1 TO 5 Normal [facility] Comment on above: Performed By: #### U MAC, [facility] #### Testing performed at [address] [address] Mucus Ql (Urine sed) Negative Normal NEGATIVE [facility] Comment on above: Performed By: #### U MAC, [facility] #### Testing performed at [place] [id number] URINE COMMENT CULTURE CRITERIA NOT MET, NO CULTURE PERFORMED. Normal [facility] Comment on above: Performed By: #### U MAC, [facility] #### Testing performed at [address] [address] URINE RBC'S Negative Normal NEGATIVE [facility] Comment on above: Performed By: #### U MAC, [facility] #### Testing performed at [address] [address] URINE WBC'S Negative Normal NEGATIVE [facility] Comment on above: Performed By: #### U MAC, [facility] #### Testing performed at [address] [address] XR CHEST 1 VIEW PORTABLEon 0 10-12-2023 XR CHEST 1 VIEW PORTABLE EXAM: XR CHEST 1 VIEW PORTABLE HISTORY: chest pain COMPARISON: CT chest 10/11/2023. TECHNIQUE: Single view chest. FINDINGS: There is moderate bibasilar consolidation and moderate bilateral pleural effusions. No pneumothorax. Heart size is borderline. Bones are unremarkable. IMPRESSION: Bibasilar consolidation with bilateral pleural effusions. Normal [facility] C REACTIVE PROTEINon 024 CRP [Mass/Vol] 158.6 mg/L High 0 - 10 MG/L [facility] Interpretation and review of laboratory results Abnormal [facility] CRP [Mass/Vol] 158.6 mg/L High 0-10 [facility] Comment on above: Performed By: #### C REACT, ESR ####Testing performed at [address] [address] CBCon 10-11-2023 ABSOLUTE BAS 0.0 10*3/uL Normal 0.0-0.2 [facility] Comment on above: Performed By: #### U MAC, [facility] #### Testing performed at [address] [place] [address] ABSOLUTE EOS 0.0 10*3/uL Normal 0.0-0.7 [facility] Comment on above: Performed By: #### U MAC, [facility] #### Testing performed at [address] [place] [address] ABSOLUTE NEUTROPHIL COUNT 8.0 10*3/uL High 1.4-6.5 [facility] Comment on above: Performed By: #### U MAC, [facility] #### Testing performed at [address] [place] [address] Basophils/100 WBC (Bld) 0.2 % Normal 0.0-2.0 [facility] Comment on above: Performed By: #### U MAC, [facility] #### Testing performed at [address] [place] [address] DTYPE AUTO DIFF Normal [facility] Comment on above: Performed By: #### U MAC, [facility] #### Testing performed at [address] [address] Eosinophils/100 WBC (Bld) 0.0 % Normal 0.0-11.0 [facility] Comment on above: Performed By: #### U MAC, [facility] #### Testing performed at [address] [address] Lymphocytes (Bld) [#/Vol] 0.9 10*3/uL Low 1.2-3.4 [facility] Comment on above: Performed By: #### U MAC, [facility] #### Testing performed at [address] [place] [address] Lymphocytes/100 WBC (Bld) 9.9 % Low 20.0-55.0 [facility] Comment on above: Performed By: #### U MAC, [facility] #### Testing performed at [address] [address] Monocytes (Bld) [#/Vol] 0.2 10*3/uL Normal 0.0-0.7 [facility] Comment on above: Performed By: #### U MAC, [facility] #### Testing performed at [address] [place] [address] Monocytes/100 WBC (Bld) 2.1 % Normal 0.0-10.0 [facility] Comment on above: Performed By: #### U MAC, [facility] #### Testing performed at [address] [address] Neutrophils/100 WBC (Bld) 87.8 % High 37.0-75.0 [facility] Comment on above: Performed By: #### U [facility], [facility] #### Testing performed at [address] [address] Erythrocyte distribution width (RBC) [Ratio] 14.7 % High 11.5-14.5 [facility] Comment on above: Performed By: #### U [facility], [facility] #### Testing performed at [address] [address] Hematocrit (Bld) [Volume fraction] 39.3 % Normal 36.0-48.0 [facility] Comment on above: Performed By: #### U [facility], [facility] #### Testing performed at [address] [address] Hemoglobin (Bld) [Mass/Vol] 13.0 g/dL Normal 12.0-16.0 [facility] Comment on above: Performed By: #### U MAC, [facility] #### Testing performed at [address] [address] MCH (RBC) [Entitic mass] 28.1 pg Normal 26.0-35.0 [facility] Comment on above: Performed By: #### U [facility], [facility] #### Testing performed at [address] [address] MCHC (RBC) [Mass/Vol] 33.1 g/dL Normal 27.0-37.0 [facility] Comment on above: Performed By: #### U MAC, [facility] #### Testing performed at [address] [address] MCV (RBC) [Entitic vol] 84.7 fL Normal 80.0-100.0 [facility] Comment on above: Performed By: #### U [facility], [facility] #### Testing performed at [address] [address] Platelet mean volume (Bld) [Entitic vol] 7.7 fL Normal 7.4-11.0 [facility] Comment on above: Performed By: #### U [facility], [facility] #### Testing performed at [address] [address] Platelets (Bld) [#/Vol] 232 10*3/uL Normal 130-400 [facility] Comment on above: Performed By: #### U MAC, [facility] #### Testing performed at [address] [address] RBC (Bld) [#/Vol] 4.63 10*6/uL Normal 4.0-5.4 [facility] Comment on above: Performed By: #### U ERIC, [facility] #### Testing performed at [address] [address] WBC (Bld) [#/Vol] 9.1 10*3/uL Normal 3.6-11.0 [facility] Comment on above: Performed By: #### U [facility], [facility] #### Testing performed at [address] [address] CBC, EDIF, PLATELETon 2023 ABSOLUTE BASOPHIL COUNT 0.0 10*3/uL 0.0 - 0.2 10*3/uL [facility] Basophils/100 WBC (Bld) 0.2 % 0.0 - 2.0 % [facility] Differential cell count method Nom (Bld) AUTO DIFF % [facility] Eosinophils (Bld) [#/Vol] 0.0 10*3/uL 0.0 - 0.7 10*3/uL [facility] Eosinophils/100 WBC (Bld) 0.0 % 0.0 - 11.0 % [facility] Erythrocyte distribution width (RBC) [Ratio] 14.7 % High 11.5 - 14.5 % [facility] Hematocrit (Bld) [Volume fraction] 39.3 % 36.0 - 48.0 % [facility] Hemoglobin (Bld) [Mass/Vol] 13.0 g/dL [facility] Interpretation and review of laboratory results Abnormal [facility] Lymphocytes (Bld) [#/Vol] 0.9 10*3/uL Low 1.2 - 3.4 10*3/uL [facility] Lymphocytes/100 WBC (Bld) 9.9 % Low 20.0 - 55.0 % [facility] MCH (RBC) [Entitic mass] 28.1 pg 26.0 - 35.0 PG [facility] MCHC (RBC) [Mass/Vol] 33.1 g/dL [facility] MCV (RBC) [Entitic vol] 84.7 fL [facility] Monocytes (Bld) [#/Vol] 0.2 10*3/uL 0.0 - 0.7 10*3/uL [facility] Monocytes/100 WBC (Bld) 2.1 % 0.0 - 10.0 % [facility] Neutrophils (Bld) [#/Vol] 8.0 10*3/uL High 1.4 - 6.5 10*3/uL [facility] Neutrophils/100 WBC (Bld) 87.8 % High 37.0 - 75.0 % [facility] Platelet mean volume (Bld) [Entitic vol] 7.7 fL [facility] Platelets (Bld) [#/Vol] 232 10*3/uL 130 - 400 10*3/uL [facility] RBC (Bld) [#/Vol] 4.63 10*6/uL 4.0 - 5.4 10*6/uL [facility] WBC (Bld) [#/Vol] 9.1 10*3/uL 3.6 - 11.0 10*3/uL [facility] CHEM 7 FASTINGon 10-11-2023 Chloride [Moles/Vol] 107 mmol/L Normal 98-107 [facility] Comment on above: Result Comment: Klaus baptiste note: Triglyceride levels of 600mg/dL or higher may positively bias chloride results by approximately 2.1 mmol Performed By: #### U [facility], [facility] #### Testing performed at [address] [address] CO2 [Moles/Vol] 21 mmol/L Low 22-30 [facility] Comment on above: Performed By: #### U [facility], [facility] #### Testing performed at [address] [address] Creatinine [Mass/Vol] 0.50 mg/dL Low 0.70-1.20 [facility] Comment on above: Performed By: #### U [facility], [facility] #### Testing performed at [address] [address] EST. GFR, 186 ml/min/1.73sq.m [facility] Comment on above: Performed By: #### U [facility], [facility] #### Testing performed at [address] [address] EST. GFR,Non 154 ml/min/1.73sq.m [facility] Comment on above: Performed By: #### U [facility], [facility] #### Testing performed at [address] [address] GFR Information Average GFR for 30-3 9 years old = 107. Normal [facility] Comment on above: Result Comment: Hose Stripper bentley Kidney disease, GFR = <60. Kidney failure, GFR = <15. The GFR estimate is not adjusted for extreme body surface area or acute process, nor has it been validated for women or ethnic groups other than and . Performed By: #### U [facility], [facility] #### Testing performed at [address] [address] Glucose [Mass/Vol] 239 mg/dL High 70-100 [facility] Comment on above: Result Comment: NORMAL <100 mg/dL PREDIABETES 101-126 mg/dL DIABETES 126 mg/dL or higher Performed By: #### U [facility], [facility] #### Testing performed at [address] [address] Potassium [Moles/Vol] 3.3 mmol/L Low 3.5-5.1 [facility] Comment on above: Performed By: #### U [facility], [facility] #### Testing performed at [address] [address] Sodium [Moles/Vol] 135 mmol/L Low 137-145 [facility] Comment on above: Performed By: #### U [facility], [facility] #### Testing performed at [address] [address] Urea nitrogen [Mass/Vol] 7 mg/dL Normal 7-20 [facility] Comment on above: Performed By: #### U [facility] #### Testing performed at [facility] [address] [place] [address] CHEM 7 (LYTES,BUN,CREA,GLUC) on 10-11-2023 Chloride [Moles/Vol] 107 mmol/L [facility] Comment on above: Please note: Triglyc eride levels of 600mg/dL or higher may positively bias chloride results by approximately 2.1 mmol CO2 [Moles/Vol] 21 mmol/L Low [facility] Creatinine [Mass/Vol] 0.50 mg/dL Low [facility] GFR COMMENT Average GFR for 30-3 9 years old = 107. [facility] Comment on above: Chronic Kidney disea se, GFR = <60. Kidney failure, GFR = <15. The GFR estimate is not adjusted for extreme body surface area or acute process, nor has it been validated for women or ethnic groups other than and . GFR/1.73 sq M.predicted among blacks MDRD (S/P/Bld) [Vol rate/Area] 186 mL/min/{1.73_m2} ml/min/1.73s q.m [facility] GFR/1.73 sq M.predicted among non-blacks MDRD (S/P/Bld) [Vol rate/Area] 154 mL/min/{1.73_m2} ml/min/1.73s q.m [facility] Glucose post fast [Mass/Vol] 239 mg/dL High [facility] [place] [facility] Comment on above: NORMAL <100 mg/dL PREDIABETES 101-126 mg/dL DIABETES 126 mg/dL or higher Interpretation and review of laboratory results Abnormal [facility] Potassium [Moles/Vol] 3.3 mmol/L Low [facility] Sodium [Moles/Vol] 135 mmol/L Low [facility] [place] [facility] Urea nitrogen [Mass/Vol] 7 mg/dL [facility] CT CHEST WITHOUT CONTRASTon 10-11-2023 CT CHEST [...] Tiny right pleural effusion. Mild cardiomegaly. Normal [facility] CT Chest WO contraston 10-10 IMPRESSION: Bilateral [...] infiltrates. Tiny right pleural effusion. Mild cardiomegaly. [facility] Study observation (narrative) [facility] [place] CT Chest WO contrastOrdered By: Holly Stern on 10-11-2023 [facility] Work Phone: CT PE STUDYon 10-11-2023 CT [...] consolidation lung bases right greater than left. [employer] to be inflammatory. 3. Small right pleural effusion slightly increased. Normal [facility] CT Pulmonary arteries for pu lmonary emboluson 10-11-2023 IMPRESSION: 1. No definite pulmonary artery embolus or thrombus although assessment of the distal vessels is limited as noted above. No evidence of right ventricular strain. 2. Worsening lung parikh with developing groundglass density in the upper and mid lungs, worsening consolidation lung bases right greater than left. [employer] to be inflammatory. 3. Small right pleural [...] consolidation lung bases right greater than left. [employer] to be inflammatory. 3. Small right pleural effusion slightly increased. [facility] Radiology Study observation (narrative) [facility] CT Pulmonary arteries for pu lmonary embolusOrdered By: Denny Fraser on 10-11-2023 [facility] Work Phone: D DIMERon 10-11-2023 D DIMER 1.05 ??g/ml Critically high <0.50 [facility] Comment on above: Result Comment: If r esult is greater than the cutoff value of 0.50 ??g/ml then the potential for PE or DVT exists. Other conditions exist which may cause a falsely elevated level. Please correlate clinically, including radiological findings and other clinical parameters. Result called to and read back by: EBONY PARRISH 10/11/2023 @ 16:24 by [facility] Performed By: #### D DIMER #### Testing performed at [facility] [address] [place] [address] D-DIMER,QUANTITATIVEon 10-10 Fibrin D-dimer FEU (PPP) [Mass/Vol] 1.05 Critically high NINF [facility] Comment on above: If result is greater than the cutoff value of 0.50 g/ml then the potential for PE or DVT exists. Other conditions exist which may cause a falsely elevated level. Please correlate clinically, including radiological findings and other clinical parameters. Result called to and read back by: EBONY PARRISH 10/11/2023 @ 16:[address] [facility] Interpretation and review of laboratory results Abnormal [facility] ESRon 10-11-2023 ESR (Bld) [Velocity] 58 mm/h High 0-15 [facility] Comment on above: Performed By: #### C REACT, ESR ####Testing performed at [address] [address] L PNEUMOPHILIA AG URINEon L PNEUMOPHILIA AG URINE Negative Normal NEGATIVE [facility] Comment on above: Performed By: #### S PAGUT, LPAGUT ####Testing performed at [address] [address] [facility] AGon 09-22 L. pneumophila 1 Ag IA Ql (U) Negative NEGATIVE [facility] MRSA SCREENon 10-11-2023 MRSA DNA JADYN+probe Ql (Unsp spec) Negative Normal NEGATIVE [facility] Comment on above: Performed By: #### M RSAST #### Testing performed at [place] [id number] STAPH AUREUS SCREEN Negative Normal NEGATIVE [facility] Comment on above: Result Comment: TEST ING PERFORMED BY PCR Performed By: #### M RSAST #### [place] [address] No Panel Informationon 10-10 [facility] PROCALCITONINon 10-11-2023 PROCALCITONIN 0.09 ng/mL 0.00 - 0.25 ng/mL [facility] Comment on above: PCT Interpretation Less than 0.10 ng/mL, antibiotic therapy strongly discouraged. 0.10-0.25 ng/mL, antibiotic therapy discouraged. 0.25-0.50 ng/mL, antibiotic therapy encouraged. Greater than 0.50 ng/mL, antibiotic therapy strongly encouraged. [facility] PROCALCITONIN 0.09 ng/mL Normal 0.00-0.25 [facility] Comment on above: Result Comment: PCT Interpretation Less than 0.10 ng/mL, antibiotic therapy strongly discouraged. 0.10-0.25 ng/mL, antibiotic therapy discouraged. 0.25-0.50 ng/mL, antibiotic therapy encouraged. Greater than 0.50 ng/mL, antibiotic therapy strongly encouraged. Performed By: #### U MAC, UMIC #### [place] [address] S PNEUMONIAE AG URINEon 09-22 S PNEUMONIAE AG URINE Negative Normal NEGATIVE [facility] Comment on above: Performed By: #### S PAGUT, LPAGUT ####Testing performed at [address] [address] SCREEN: MRSA ONLY, NARES (IS OLATION SCREEN)on 10-11-2023 MRSA isol Org specific cx Ql (Nose) Negative NEGATIVE [facility] STAPHYOCOCCUS AUREUS BY PCR Negative NEGATIVE [facility] Comment on above: TESTING PERFORMED BY PCR [facility] SEDIMENTATION RATE, AUTOMATE Don 10-11-2023 ESR (Bld) [Velocity] 58 mm/h [facility] Interpretation and review of laboratory results Abnormal [facility] STREP PNEUMONIAE ANTIGEN, UR INEon 10-11-2023 S. pneumoniae Ag Ql (U) Negative NEGATIVE [facility] BETA HCG, QUAL, BLOODon 07- HCG ( test) Ql Negative NEGATIVE [facility] BLOOD CULTUREon 10-10-2023 Bacteria identified Cx Nom (Bld) SPECIMEN DESCRIPTION PERIPHERAL BLOOD DRAW SPECIAL REQUESTS RT AC CULTURE NO GROWTH 5 DAYS REPORT STATUS 10/16/2023 * Result Note: FINAL * Normal [facility] Comment on above: Performed By: #### B LC #### Testing performed at [address] [address] Bacteria identified Cx Nom (Bld) SPECIMEN DESCRIPTION PERIPHERAL BLOOD DRAW SPECIAL REQUESTS LT H CULTURE NO GROWTH 5 DAYS REPORT STATUS 10/16/2023 * Result Note: FINAL * Normal [facility] Comment on above: Performed By: #### B LC ####Testing performed at [address] [address] CBCon 10-10-2023 ABSOLUTE BAS 0.0 10*3/uL Normal 0.0-0.2 [facility] Comment on above: Performed By: #### C ED HOWE, ACBC #### Testing performed at [address] [address] ABSOLUTE EOS 0.0 10*3/uL Normal 0.0-0.7 [facility] Comment on above: Performed By: #### C ED HOWE, ACBC #### Testing performed at [address] [address] ABSOLUTE NEUTROPHIL COUNT 7.7 10*3/uL High 1.4-6.5 [facility] Comment on above: Performed By: #### C ED HOWE, ACBC #### Testing performed at [address] [address] Basophils/100 WBC (Bld) 0.3 % Normal 0.0-2.0 [facility] Comment on above: Performed By: #### C MPPriscilla, ED, ACBC #### Testing performed at [address] [place] [address] DTYPE AUTO DIFF Normal [facility] Comment on above: Performed By: #### C ED HOWE ACBC #### Testing performed at [address] [place] [address] Eosinophils/100 WBC (Bld) 0.1 % Normal 0.0-11.0 [facility] Comment on above: Performed By: #### C MPFED ACBC #### Testing performed at [address] [address] Lymphocytes (Bld) [#/Vol] 1.2 10*3/uL Normal 1.2-3.4 [facility] Comment on above: Performed By: #### C ED HOWE ACBC #### Testing performed at [address] [address] Lymphocytes/100 WBC (Bld) 12.9 % Low 20.0-55.0 [facility] Comment on above: Performed By: #### C MPFED ACBC #### Testing performed at [address] [address] Monocytes (Bld) [#/Vol] 0.5 10*3/uL Normal 0.0-0.7 [facility] Comment on above: Performed By: #### C MPFED, ACBC #### Testing performed at [address] [address] Monocytes/100 WBC (Bld) 5.0 % Normal 0.0-10.0 [facility] Comment on above: Performed By: #### C MPFED, ACBC #### Testing performed at [address] [place] [address] Neutrophils/100 WBC (Bld) 81.7 % High 37.0-75.0 [facility] Comment on above: Performed By: #### C MPFED, ACBC #### Testing performed at [address] [place] [address] Erythrocyte distribution width (RBC) [Ratio] 14.7 % High 11.5-14.5 [facility] Comment on above: Performed By: #### C MPF SHCGT ACBC #### Testing performed at [address] [address] Hematocrit (Bld) [Volume fraction] 38.5 % Normal 36.0-48.0 [facility] Comment on above: Performed By: #### C MPF SHCGT ACBC #### Testing performed at [address] [address] Hemoglobin (Bld) [Mass/Vol] 12.9 g/dL Normal 12.0-16.0 [facility] Comment on above: Performed By: #### C MPF SHCGT, ACBC #### Testing performed at [address] [address] MCH (RBC) [Entitic mass] 27.9 pg Normal 26.0-35.0 [facility] Comment on above: Performed By: #### C MPF SHCTORIN, ACBC #### Testing performed at [address] [address] MCHC (RBC) [Mass/Vol] 33.6 g/dL Normal 27.0-37.0 [facility] Comment on above: Performed By: #### C MPFED ACBC #### Testing performed at [address] [address] MCV (RBC) [Entitic vol] 82.8 fL Normal 80.0-100.0 [facility] Comment on above: Performed By: #### C MPF SHCGT, ACBC #### Testing performed at [address] [address] Platelet mean volume (Bld) [Entitic vol] 7.7 fL Normal 7.4-11.0 [facility] Comment on above: Performed By: #### C MPFED, ACBC #### Testing performed at [address] [address] Platelets (Bld) [#/Vol] 264 10*3/uL Normal 130-400 [facility] Comment on above: Performed By: #### C MPF SHCGT, ACBC #### Testing performed at [address] [address] RBC (Bld) [#/Vol] 4.64 10*6/uL Normal 4.0-5.4 [facility] Comment on above: Performed By: #### C ED HOWE ACBC #### Testing performed at [facility] [address] [place] [address] WBC (Bld) [#/Vol] 9.4 10*3/uL Normal 3.6-11.0 [facility] Comment on above: Performed By: #### C ED HOWE ACBC #### Testing performed at [address] [address] CBC, EDIF, PLATELETon 2023 ABSOLUTE BASOPHIL COUNT 0.0 10*3/uL 0.0 - 0.2 10*3/uL [facility] Basophils/100 WBC (Bld) 0.3 % 0.0 - 2.0 % [facility] Differential cell count method Nom (Bld) AUTO DIFF % [facility] Eosinophils (Bld) [#/Vol] 0.0 10*3/uL 0.0 - 0.7 10*3/uL [facility] Eosinophils/100 WBC (Bld) 0.1 % 0.0 - 11.0 % [facility] Erythrocyte distribution width (RBC) [Ratio] 14.7 % High 11.5 - 14.5 % [facility] Hematocrit (Bld) [Volume fraction] 38.5 % 36.0 - 48.0 % [facility] Hemoglobin (Bld) [Mass/Vol] 12.9 g/dL [facility] Interpretation and review of laboratory results Abnormal [facility] Lymphocytes (Bld) [#/Vol] 1.2 10*3/uL 1.2 - 3.4 10*3/uL [facility] Lymphocytes/100 WBC (Bld) 12.9 % Low 20.0 - 55.0 % [facility] MCH (RBC) [Entitic mass] 27.9 pg 26.0 - 35.0 PG [facility] MCHC (RBC) [Mass/Vol] 33.6 g/dL [facility] MCV (RBC) [Entitic vol] 82.8 fL [facility] Monocytes (Bld) [#/Vol] 0.5 10*3/uL 0.0 - 0.7 10*3/uL [facility] Monocytes/100 WBC (Bld) 5.0 % 0.0 - 10.0 % [facility] Neutrophils (Bld) [#/Vol] 7.7 10*3/uL High 1.4 - 6.5 10*3/uL [facility] Neutrophils/100 WBC (Bld) 81.7 % High 37.0 - 75.0 % [facility] Platelet mean volume (Bld) [Entitic vol] 7.[address] [facility] Platelets (Bld) [#/Vol] 264 10*3/uL 130 - 400 10*3/uL [facility] RBC (Bld) [#/Vol] 4.64 10*6/uL 4.0 - 5.4 10*6/uL [facility] WBC (Bld) [#/Vol] 9.4 10*3/uL 3.6 - 11.0 10*3/uL [facility] CMP FASTINGon 10-10-2023 A:G RATIO 1.3 RATIO Normal [facility] Comment on above: Performed By: #### C MPF, SHCGT, ACBC ####Testing performed at [address] [address] ALBUMIN 4.0 G/dl Normal 3.5-5.0 [facility] Comment on above: Performed By: #### C MPF, SHCGT, ACBC ####Testing performed at [address] [address] ALP [Catalytic activity/Vol] 77 U/L Normal 38-126 [facility] Comment on above: Performed By: #### C MPF, SHCGT, ACBC ####Testing performed at [address] [address] ALT [Catalytic activity/Vol] 24 U/L Normal <35 [facility] Comment on above: Performed By: #### C MPF, SHCGT, ACBC ####Testing performed at [address] [address] AST [Catalytic activity/Vol] 24 U/L Normal 14-36 [facility] Comment on above: Performed By: #### C MPF, SHCGT, ACBC ####Testing performed at [address] [address] Bilirubin [Mass/Vol] 0.3 mg/dL Normal 0.2-1.3 [facility] Comment on above: Performed By: #### C ED HOWE ACBC ####Testing performed at [address] [address] Calcium [Mass/Vol] 8.6 mg/dL Normal 8.4-10.2 [facility] Comment on above: Performed By: #### C ED HOWE ACBC ####Testing performed at [address] [address] Chloride [Moles/Vol] 104 mmol/L Normal 98-107 [facility] Comment on above: Result Comment: Klaus baptiste note: Triglyceride levels of 600mg/dL or higher may positively bias chloride results by approximately 2.1 mmol Performed By: #### C ED HOWE ACBC ####Testing performed at [address] [address] CO2 [Moles/Vol] 22 mmol/L Normal 22-30 [facility] Comment on above: Performed By: #### C ED HOWE ACBC ####Testing performed at [address] [address] Creatinine [Mass/Vol] 0.58 mg/dL Low 0.70-1.20 [facility] Comment on above: Performed By: #### C ED HOWE ACBC ####Testing performed at [address] [address] EST. GFR, 157 ml/min/1.73sq.m [facility] Comment on above: Performed By: #### C ED HOWE ACBC ####Testing performed at [address] [address] EST. GFR,Non 130 ml/min/1.73sq.m Normal [facility] Comment on above: Performed By: #### C ED HOWE ACBC ####Testing performed at [address] [address] GFR Information Average GFR for 30-3 9 years old = 107. Normal [facility] Comment on above: Result Comment: Hose Stripper bentley Kidney disease, GFR = <60. Kidney failure, GFR = <15. The GFR estimate is not adjusted for extreme body surface area or acute process, nor has it been validated for women or ethnic groups other than and . Performed By: #### C ED HOWE ACBC ####Testing performed at [address] [address] Glucose [Mass/Vol] 126 mg/dL High 70-100 [facility] Comment on above: Result Comment: NORMAL <100 mg/dL PREDIABETES 101-126 mg/dL DIABETES 126 mg/dL or higher Performed By: #### C ED HOWE ACBC ####Testing performed at [address] [address] Potassium [Moles/Vol] 3.4 mmol/L Low 3.5-5.1 [facility] Comment on above: Performed By: #### C ED HOWE ACANTOLIN ####Testing performed at [address] [address] Protein [Mass/Vol] 7.2 g/dL Normal 6.3-8.2 [facility] Comment on above: Performed By: #### C ED HOWE ACBC ####Testing performed at [address] [address] Sodium [Moles/Vol] 134 mmol/L Low 137-145 [facility] Comment on above: Performed By: #### C ED HOWE ACBC ####Testing performed at [address] [address] Urea nitrogen [Mass/Vol] 7 mg/dL Normal 7-20 [facility] Comment on above: Performed By: #### C ED HOWE, ACBC ####Testing performed at [address] [address] COMPREHENSIVE METABOLIC PANE Nagi 10-10-2023 Albumin [Mass/Vol] 4.0 G/dl 3.5 - 5.0 G/dl [facility] Albumin/Globulin [Mass ratio] 1.3 {ratio} RATIO [facility] ALP [Catalytic activity/Vol] 77 U/L [facility] ALT [Catalytic activity/Vol] 24 U/L NINF [facility] AST [Catalytic activity/Vol] 24 U/L [facility] Bilirubin [Mass/Vol] 0.3 mg/dL [facility] Calcium [Mass/Vol] 8.6 mg/dL [facility] Chloride [Moles/Vol] 104 mmol/L [facility] Comment on above: Please note: Triglyc eride levels of 600mg/dL or higher may positively bias chloride results by approximately 2.1 mmol CO2 [Moles/Vol] 22 mmol/L [facility] Creatinine [Mass/Vol] 0.58 mg/dL Low [facility] GFR COMMENT Average GFR for 30-3 9 years old = 107. [facility] Comment on above: Chronic Kidney disea se, GFR = <60. Kidney failure, GFR = <15. The GFR estimate is not adjusted for extreme body surface area or acute process, nor has it been validated for women or ethnic groups other than and . GFR/1.73 sq M.predicted among blacks MDRD (S/P/Bld) [Vol rate/Area] 157 mL/min/{1.73_m2} ml/min/1.73s q.m [facility] GFR/1.73 sq M.predicted among non-blacks MDRD (S/P/Bld) [Vol rate/Area] 130 mL/min/{1.73_m2} ml/min/1.73s q.m [facility] Glucose post fast [Mass/Vol] 126 mg/dL High [facility] Comment on above: NORMAL <100 mg/dL PREDIABETES 101-126 mg/dL DIABETES 126 mg/dL or higher Interpretation and review of laboratory results Abnormal [facility] Potassium [Moles/Vol] 3.4 mmol/L Low [facility] Protein [Mass/Vol] 7.2 g/dL [facility] Sodium [Moles/Vol] 134 mmol/L Low [facility] Urea nitrogen [Mass/Vol] 7 mg/dL [facility] HCG ( test) Qlon [facility] INFLUENZA A AND B, PCRon FLUAV and FLUBV Ag IF Nom (Unsp spec) Negative NEGATIVE [facility] FLUBV Ag IA Ql (Unsp spec) Negative NEGATIVE [facility] Comment on above: TESTING PERFORMED BY JADYN [facility] LACTATE, BLOODon 10-10-2023 Lactate [Moles/Vol] 2.0 mmol/L 0.7 - 2. 0 mmol/L [facility] LACTATE,BLOODon 10-10-2023 Lactate [Moles/Vol] 2.0 mmol/L Normal 0.7-2.0 [facility] Comment on above: Performed By: #### C OVID #### [place] [address] NOVEL CORONAVIRUSon 10-10-19 24 NARRATIVE This test was perfor med using isothermal JADYN and has been approved as Emergency Use Authorization (EUA) for the qualitative detection [id number] nucleic acid. Normal [facility] Comment on above: Performed By: #### C OVID #### Testing performed at [place] [id number] SARS-CoV-2 (COVID-19) RNA JADYN+probe Ql (Unsp spec) Not detected Normal NOT DETECTED [facility] Comment on above: Result Comment: Nega tive [...] #### C OVID #### Testing performed at [place] [id number] NOVEL CORONAVIRUS LAB 1 - NA SOPHARYNGEALon 10-10-2023 NARRATIVE -1 This test was perfor med using isothermal JADYN and has been approved as Emergency Use Authorization (EUA) for the qualitative detection [id number] nucleic acid. [facility] SARS-CoV-2 (COVID-19) RNA JADYN+probe Ql (Unsp spec) Not detected NOT DETECTED [facility] Comment on above: Negative results do [...] patient is critically ill or clinically deteriorating. [facility] RAPID FLU Aon 10-10-2023 INFLUENZA A Negative Normal NEGATIVE [facility] Comment on above: Performed By: #### R FLUAB ####[place] [address] INFLUENZA B Negative Normal NEGATIVE [facility] Comment on above: Result Comment: TEST ING PERFORMED BY JADYN Performed By: #### R FLUAB ####Testing performed at [place] [id number] SERUM HCG QUALon 10-10-2023 SERUM BETA HCG,QUAL Negative Normal NEGATIVE [facility] Comment on above: Performed By: #### C MPF, SHCGT, ACBC ####Testing performed at [place] [id number] XR CHEST PA AND LATERAL 2 EWSon [...] the lung bases. 2. Moderate cardiomegaly. Normal [facility] XR Chest PA and Lateralon IMPRESSION: 1. [...] in the lung bases. 2. Moderate cardiomegaly. [facility] Radiology Study observation (narrative) [facility] XR Chest PA and LateralOrder ed By: Mansoor Ambrose on 10-10-2023 [facility] Work Phone: Basic metabolic 2000 panelon 01-28-2023 Anion gap [Moles/Vol] 13 mmol/L Normal 10-20 [facility] Comment on above: Performed By: #### 2 4321-2 #### DEION MASCORRO ([id number]) [facility] ([facility]) [facility] [place] [address] Calcium [Mass/Vol] 8.8 mg/dL Normal 8.6-10.3 [facility] Comment on above: Performed By: #### 2 4321-2 #### DEION MASCORRO ([id number]) [facility] ([facility]) [facility] [place] [address] Chloride [Moles/Vol] 104 mmol/L Normal 98-107 [facility] Comment on above: Performed By: #### 2 4321-2 #### DEION MASCORRO ([id number]) [facility] ([facility]) [facility] [place] [address] CO2 [Moles/Vol] 26 mmol/L Normal 21-32 [facility] Comment on above: Performed By: #### 2 4321-2 #### DEION MASCORRO ([id number]) [facility] ([facility]) [address] [place] [address] Creatinine [Mass/Vol] 0.58 mg/dL Normal 0.50-1.05 [facility] Comment on above: Performed By: #### 2 4321-2 #### DEION MASCORRO ([id number]) [facility] ([facility]) [address] [place] [address] GFR/1.73 sq M.predicted MDRD (S/P/Bld) [Vol rate/Area] mL/min/{1.73_m2} Normal >60 [facility] Comment on above: Result Comment: Calc ulations of estimated GFR are performed using the 2020 CKD-EPI Study Refit equation without the race variable for the IDMS-Traceable creatinine methods. https://jasn.asnjournals.org/content/early//ASN.53501 [address] Performed By: #### 2 4321-2 #### DEION MASCORRO ([id number]) [facility] ([facility]) [address] [place] [address] Glucose [Mass/Vol] 78 mg/dL Normal 74-99 [facility] Comment on above: Performed By: #### 2 4321-2 #### DEION MASCORRO ([id number]) [facility] ([facility]) [address] [place] [address] Potassium [Moles/Vol] 4.2 mmol/L Normal 3.5-5.3 [facility] Comment on above: Performed By: #### 2 4321-2 #### DEION MASCORRO ([id number]) [facility] ([facility]) [address] [place] [address] Sodium [Moles/Vol] 139 mmol/L Normal 136-145 [facility] Comment on above: Performed By: #### 2 4321-2 #### DEION MASCORRO ([id number]) [facility] ([facility]) [address] [place] [address] Urea nitrogen [Mass/Vol] 14 mg/dL Normal 6-23 [facility] Comment on above: Performed By: #### 2 4321-2 #### DEION MASCORRO ([id number]) [facility] ([facility]) [address] [place] [address] CBC W Auto Differential pane l (Bld)on 01-28-2023 Basophils (Bld) [#/Vol] 0.05 x10*3/uL Normal 0.00-0.10 [facility] Comment on above: Performed By: #### 5 7021-8 #### DEION MASCORRO ([id number]) [facility] ([facility]) [address] [place] [address] Basophils/100 WBC (Bld) 0.4 % Normal 0.0-2.0 [facility] Comment on above: Performed By: #### 5 7021-8 #### DEION MASCORRO ([id number]) [facility] ([facility]) [address] [place] [address] Eosinophils (Bld) [#/Vol] 0.52 x10*3/uL Normal 0.00-0.70 [facility] Comment on above: Performed By: #### 5 7021-8 #### DEION MASCORRO ([id number]) [facility] ([facility]) [address] [place] [address] Eosinophils/100 WBC (Bld) 4.0 % Normal 0.0-6.0 [facility] Comment on above: Performed By: #### 5 7021-8 #### DEION MASCORRO ([id number]) [facility] ([facility]) [address] [place] [address] Erythrocyte distribution width (RBC) [Ratio] 16.1 % High 11.5-14.5 [facility] Comment on above: Performed By: #### 5 7021-8 #### DEION MASCORRO ([id number]) [facility] ([facility]) [address] [place] [address] Hematocrit (Bld) [Volume fraction] 42.9 % Normal 36.0-46.0 [facility] Comment on above: Performed By: #### 5 7021-8 #### DEION MASCORRO ([id number]) [facility] ([facility]) [address] [place] [address] Hemoglobin (Bld) [Mass/Vol] 13.2 g/dL Normal 12.0-16.0 [facility] Comment on above: Performed By: #### 5 7021-8 #### DEION MASCORRO ([id number]) [facility] ([facility]) [address] [place] [address] Immature granulocytes (Bld) [#/Vol] 0.06 x10*3/uL Normal 0.00-0.70 [facility] Comment on above: Performed By: #### 5 7021-8 #### DEION MASCORRO ([id number]) [facility] ([facility]) [address] [place] [address] 45490 Immature granulocytes/100 WBC (Bld) 0.5 % Normal 0.0-0.9 [facility] Comment on above: Result Comment: Dottie ture Granulocyte Count (IG) includes promyelocytes, myelocytes and metamyelocytes but does not include bands. Percent differential counts (%) should be interpreted in the context of the absolute cell counts (cells/UL). Performed By: #### 5 7021-8 #### DEION MASCORRO ([id number]) [facility] ([facility]) [address] [place] [address] 44441 Lymphocytes (Bld) [#/Vol] 4.25 x10*3/uL Normal 1.20-4.80 [facility] Comment on above: Performed By: #### 5 7021-8 #### DEION MASCORRO ([id number]) [facility] ([facility]) [address] [place] [address] 24057 Lymphocytes/100 WBC (Bld) 32.4 % Normal 13.0-44.0 [facility] Comment on above: Performed By: #### 5 7021-8 #### DEION MASCORRO ([id number]) [facility] ([facility]) [address] [place] [address] 33264 MCH (RBC) [Entitic mass] 26.1 pg Normal 26.0-34.0 [facility] Comment on above: Performed By: #### 5 7021-8 #### DEION MASCORRO ([id number]) [facility] ([facility]) [address] [place] [address] 71961 MCHC (RBC) [Mass/Vol] 30.8 g/dL Low 32.0-36.0 [facility] Comment on above: Performed By: #### 5 7021-8 #### DEION MASCORRO ([id number]) [facility] ([facility]) [address] [place], [place] [phone] MCV (RBC) [Entitic vol] 85 fL Normal 80-100 [facility] Comment on above: Performed By: #### 5 7021-8 #### DEION MASCORRO ([id number]) [facility] ([facility]) [address] [place], [place] [phone] Monocytes (Bld) [#/Vol] 0.64 x10*3/uL Normal 0.10-1.00 [facility] Comment on above: Performed By: #### 5 7021-8 #### DEION MASCORRO ([id number]) [facility] ([facility]) [address] [place] [address] 53017 Monocytes/100 WBC (Bld) 4.9 % Normal 2.0-10.0 [facility] Comment on above: Performed By: #### 5 7021-8 #### DEION MASCORRO ([id number]) [facility] ([facility]) [address] [place] [address] 70817 Neutrophils (Bld) [#/Vol] 7.58 x10*3/uL Normal 1.20-7.70 [facility] Comment on above: Result Comment: Perc ent differential counts (%) should be interpreted in the context of the absolute cell counts (cells/uL). Performed By: #### 5 7021-8 #### DEION MASCORRO ([id number]) [facility] ([facility]) [address] [place] [address] 06554 Neutrophils/100 WBC (Bld) 57.8 % Normal 40.0-80.0 [facility] Comment on above: Performed By: #### 5 7021-8 #### DEION MASCORRO ([id number]) [facility] ([facility]) [address] [place] [address] 51441 Nucleated RBC/100 WBC (Bld) [Ratio] 0.0 /100 WBCs Normal 0.0-0.0 [facility] Comment on above: Performed By: #### 5 7021-8 #### DEION MASCORRO ([id number]) [facility] ([facility]) [address] [place] [address] 30811 Platelets (Bld) [#/Vol] 405 x10*3/uL Normal 150-450 [facility] Comment on above: Performed By: #### 5 7021-8 #### DEION MASCORRO ([id number]) [facility] ([facility]) [address] [place] [address] 53446 RBC (Bld) [#/Vol] 5.05 x10*6/uL Normal 4.00-5.20 [facility] Comment on above: Performed By: #### 5 7021-8 #### DEION MASCORRO ([id number]) [facility] ([facility]) [address] [place] [address] 40405 WBC (Bld) [#/Vol] 13.1 x10*3/uL High 4.4-11.3 [facility] Comment on above: Performed By: #### 5 7021-8 #### DEION MASCORRO ([id number]) [facility] ([facility]) [address] [place] [address] 17699 Calcidiolon 01-28-2023 25-hydroxyvitamin D3 [Mass/Vol] 27 ng/mL Low 30-100 [facility] Comment on above: Order Comment: Defic iency: < 20 ng/ml Insufficiency: 20-29 ng/ml Sufficiency: 30-100 ng/ml This assay accurately quantifies the sum of Vitamin D3, 25-Hydroxy and Vitamin D2,25-Hydroxy. Performed By: #### 1 989-3 #### DEION MASCORRO ([id number]) [facility] ([facility]) [facility] [place] [address] Lipid 1996 panelon 3 Cholesterol [Mass/Vol] 216 mg/dL High 0-199 Un [facility] Comment on above: Result Comment: Age Desirable [...] By: #### 2 4331-1 #### DEION MASCORRO ([id number]) [facility] ([facility]) [facility] [place] [address] Cholesterol in HDL [Mass/Vol] 62.0 mg/dL Normal [facility] Comment on above: Result Comment: Age Very Low Low Normal High 0-19 Y < 35 < 40 40-45 ---- 20-24 Y ---- < 40 >45 ---- >24 Y ---- < 40 40-60 >60 Performed By: #### 2 4331-1 #### DEION MASCORRO ([id number]) [facility] ([facility]) [facility] [place] [address] Cholesterol in LDL [Mass/Vol] 108 mg/dL High <=99 [facility] Comment on above: Result Comment: Near Borderline AGE Desirable Optimal High High Very High 0-19 Y 0 - 109 --- 110-129 >/= 130 ---- 20-24 Y 0 - 119 --- 120-159 >/= 160 ---- >24 Y 0 - 99 100-129 130-159 160-189 >/=190 Performed By: #### 2 4331-1 #### DEION MASCORRO ([id number]) [facility] ([facility]) [address] [place] [address] Cholesterol in VLDL [Mass/Vol] 46 mg/dL High 0-40 [facility] Comment on above: Performed By: #### 2 4331-1 #### DEION MASCORRO ([id number]) [facility] ([facility]) [facility] [place] [address] CHOLESTEROL/HDL RATIO 3.5 Normal [facility] Comment on above: Result Comment: Ref Values Desirable < 3.4 High Risk > 5.0 Performed By: #### 2 4331-1 #### DEION MASCORRO ([id number]) [facility] ([facility]) [address] [place] [address] 85786 NON HDL CHOLESTEROL 154 mg/dL High 0-149 [facility] Comment on above: Result Comment: Age Desirable Borderline High High Very High 0-19 Y 0 - 119 120 - 144 >/= 145 >/= 160 20-24 Y 0 - 149 150 - 189 >/= 190 ---- >24 Y 30 mg/dL above LDL Cholesterol goal Performed By: #### 2 4331-1 #### DEION MASCORRO ([id number]) [facility] ([facility]) [address] [place] [address] 42426 Triglyceride [Mass/Vol] 228 mg/dL High 0-149 [facility] Comment on above: Result Comment: Age [...] By: #### 2 4331-1 #### DEION MASCORRO ([id number]) [facility] ([facility]) [address] [place] [address] 77239 TSH WITH REFLEX TO FREE T4 I F ABNORMALon 11-07-2023 TSH Qn 1.79 m[IU]/L Normal 0.44-3.98 [facility] Comment on above: Order Comment: TSH t esting is performed using different testing methodology at [facility] than at other [facility]. Direct result comparisons should only be made within the same method. Performed By: #### T HYDS #### ALBARRAN SUBHA ([id number]) [facility] ([facility]) [address] [place] [address] Provider Letteron 10-25-2022 Provider Letter (Inserted Image. Niharika ble to display) October 25, 2022 ANAI WEBBER [address] [address] : 1995 Dear Anai , We have been trying to reach you with no success. It is important that you return our call regarding your test results upon receiving this letter. Also, at the time of your call, please provide us with your current information. Thank you for your prompt attention to this matter. Sincerely, Normal [facility] Family Medicine Office/Clini c Noteon 10-05-2022 Family [...] with voice recognition artificial intelligence software, specifically [employer], [employer] and or [employer]. Substitutions may have occurred due to the inherent limitations of voice recognition and artificial intelligence software. Documentation services were performed after patient or guardian consented to allow [employer] to record this visit. SEAN instructional design specialist Sumit Toney and provider reviewed before [...] virus vaccine, live, trivalent 01/2019 Recorded Normal [facility] Comment on above: Result Comment: Elec tronically Signed By: Alexander Starr MD\.br\Date and Time Signed: 10/05/22 08:17 EDT\.br\Electronically Co-Signed By: Sumit Toney\.br\Date and Time Co-Signed: 10/01/22 12:35 EDT US Extremity Non-Vascular Li mited Lefton 10-03-2022 US Extremity Non-Vascular Limited Left Exam [...] DO Transcribed by: KATRINA Technologist: NICOLE Normal [facility] Consent for Treatmenton 09-21 Consent for Treatment [id number]: 127 Normal [facility] Family Medicine Office/Clini c Noteon 09-30-2022 Family Medicine Office/Clinic Note Chief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 2.0 [facility] Comment on above: Performed By: #### C BCDF #### [address] [address] Eosinophils (Bld) [#/Vol] 0.30 10*3/uL Normal 0.00 - 0.70 [facility] Comment on above: Performed By: #### C BCDF #### [address] [address] Eosinophils/100 WBC (Bld) 2.4 % Normal 0.0 - 6.0 [facility] Comment on above: Performed By: #### C BCDF #### [address] [place] [address] Erythrocyte distribution width (RBC) [Ratio] 14.5 % Normal 11.5 - 14.5 [facility] Comment on above: Performed By: #### C BCDF #### [address] [address] Hematocrit (Bld) [Volume fraction] 39.5 % Normal 36.0 - 46.0 [facility] Comment on above: Performed By: #### C BCDF #### [address] [address] Hemoglobin (Bld) [Mass/Vol] 12.8 g/dL Normal 12.0 - 16.0 [facility] Comment on above: Performed By: #### C BCDF #### [address] [address] Lymphocytes (Bld) [#/Vol] 3.30 10*3/uL Normal 1.20 - 4.80 [facility] Comment on above: Performed By: #### C BCDF #### [address] [address] Lymphocytes/100 WBC (Bld) 24.7 % Normal 13.0 - 44.0 [facility] Comment on above: Performed By: #### C BCDF #### [address] [address] MCHC (RBC) [Mass/Vol] 32.5 g/dL Normal 32.0 - 36.0 [facility] Comment on above: Performed By: #### C BCDF #### [address] [address] MCV (RBC) [Entitic vol] 80 fL Normal 80 - 100 [facility] Comment on above: Performed By: #### C BCDF #### [address] [address] Monocytes (Bld) [#/Vol] 0.90 10*3/uL Normal 0.10 - 1.00 [facility] Comment on above: Performed By: #### C BCDF #### [address] [address] Monocytes/100 WBC (Bld) 6.5 % Normal 2.0 - 10.0 [facility] Comment on above: Performed By: #### C BCDF #### [address] [address] Neutrophils (Bld) [#/Vol] 9.00 10*3/uL High 1.20 - 7.70 [facility] Comment on above: Result Comment: Perc ent differential counts (%) should be interpreted in the context of the absolute cell counts (cells/L). Performed By: #### C BCDF #### [address] [address] Neutrophils/100 WBC (Bld) 66.0 % Normal 40.0 - 80.0 [facility] Comment on above: Performed By: #### C BCDF #### [address] [address] Platelets (Bld) [#/Vol] 366 10*3/uL Normal 150 - 450 [facility] Comment on above: Performed By: #### C BCDF #### [address] [address] RBC 4.94 x10E12/L Normal 4.00 - 5.20 [facility] Comment on above: Performed By: #### C BCDF #### [address] [address] WBC (Bld) [#/Vol] 13.6 10*3/uL High 4.4 - 11.3 [facility] Comment on above: Performed By: #### C BCDF #### [address] [address] Complete Blood Count + Diffe jennifer 11-21-2021 Basophils/100 WBC (Bld) 0.4 % 0.0 - 2.0 [employer] Work Phone: Erythrocyte distribution width (RBC) [Ratio] 14.5 % See Below [facility] Work Phone: Comment on above: Reference Range: 11. 5 - 14.5 Hematocrit (Bld) [Volume fraction] 39.5 % See Below [facility] [employer] Work Phone: Comment on above: Reference Range: 36. 0 - 46.0 Hemoglobin (Bld) [Mass/Vol] 12.8 g/dL See Below [facility] [place] [address] [employer] Work Phone: Comment on above: Reference Range: 12. 0 - 16.0 Lymphocytes/100 WBC (Bld) 24.7 % See Below [facility] [place] [address] [employer] Work Phone: [phone] Comment on above: Reference Range: 13. 0 - 44.0 MCHC (RBC) [Mass/Vol] 32.5 g/dL See Below [facility] centerDesign LED ProductsKenn[place] [address] [employer] Work Phone: Comment on above: Reference Range: 32. 0 - 36.0 MCV (RBC) [Entitic vol] 80 fL 80 - 100 [facility] [place] [address] [employer] Work Phone: [phone] Monocytes/100 WBC (Bld) 6.5 % 2.0 - 10.0 [facility] [employer] Work Phone: [phone] Neutrophils/100 WBC (Bld) 66.0 % See Below [facility] [place] [address] [employer] Work Phone: Comment on above: Reference Range: 40. 0 - 80.0 Platelets (Bld) [#/Vol] 366 10*3/uL 150 - 450 [facility] [place] [address] [employer] Work Phone: [phone] RBC (Bld) [#/Vol] 4.94 {x10E12/L} See Below [facility] hospital[facility], [employer] [place] [address] [employer] Work Phone: Comment on above: Reference Range: 4.0 0 - 5.20 WBC (Bld) [#/Vol] 13.6 10*3/uL above high threshold 4.4 - 11.3 [facility] [place] [address] [employer] Work Phone: Complete Blood Count + Differential 0.00 {x10E9/L} See Below [place] [address] [employer] Work Phone: Comment on above: Reference Range: 0.0 0 - 0.10 Complete Blood Count + Differential 0.30 {x10E9/L} See Below [place] [address] [place] Work Phone: Comment on above: Reference Range: 0.0 0 - 0.70 Complete Blood Count + Differential 0.90 {x10E9/L} See Below [place] [address] [employer] Work Phone: Comment on above: Reference Range: 0.1 0 - 1.00 Complete Blood Count + Differential 3.30 {x10E9/L} See Below [facility] HospitalWheely[facility] [place] [address] [employer] Work Phone: Comment on above: Reference Range: 1.2 0 - 4.80 Complete Blood Count + Differential 9.00 {x10E9/L} above high threshold See Below [place] [address] [place] Work Phone: Comment on above: Reference Range: 1.2 0 - 7.70 Percent differential counts (%) should be interpreted in the context of the absolute cell counts (cells/L). Complete Blood Count + Differential 2.4 % 0.0 - 6.0 [place] [address] [employer] Work Phone: HEPATITIS B SURFACE AGon Lab Specimen Source Normal [facility] Comment on above: Performed By: #### H BSAG #### [facility] [address] [place] [address] Performed By: #### H IV #### [facility] [address] [place] [address] HIV 1/2 ANTIGEN/ANTIBODY SCR EEN WITH REFLEX TO CONFIRMATIONon 11-21-2021 HIV 1+2 Ab Qn (S) Non-Reactive See Below [address] Work Phone: Comment on above: SOURCE: Reference Ra nge: NONREACTIVE HIV Ag/Ab screen is performed using the Siemens My-wardrobe.[email or web address] HIV Ag/Ab Combo assay which detects the presence of HIV p24 antigen as well as antibodies to HIV-1 (Group M and O) and HIV-2..No laboratory evidence of HIV infection. If acute HIV infection is suspected, consider testing for HIV RNA by PCR (viral load). Hepatitis B Surface Antigeno n 11-21-2021 Hepatitis B Surface Antigen Non-Reactive See Below [facility] [employer] Work Phone: Comment on above: SOURCE: Reference Ra nge: NONREACTIVE Biotin interference may cause falsely decreased results. Patients taking a Biotin dose of up to 5 mg/day should refrain from taking Biotin for 24 hours before sample collection. Providers may contact their local laboratory for further information. IO HCG, Urine Test on 11-21-2021 HCG ( test) Ql (U) Positive [facility] (Roc) [employer] Work Phone: LMPon 11-21-2021 Last menstrual period start date [id number] [facility] [employer] Work Phone: Laboratory - Blood bankon ABO group Nom (Bld) O Women [facility] [employer] Work Phone: Blood group antibody screen Ql Negative [facility] memorial[facility] Work Phone: Rh immune globulin screen (Bld) [Interp] Positive [facility] ([place]oc) [employer] Work Phone: Laboratory - Chemistry and C hemistry - challengeon 11-21-2021 TSH Qn 1.46 m[IU]/L See Below [facility] [employer] Work Phone: Comment on above: Reference Range: 0.4 4 - 3.98 TSH testing is performed using different testing methodology at [facility] than at other [facility]. Direct result comparisons should only be made within the same method. WAFER CLEANER - Office Visiton 10-24 WAFER CLEANER - Office Visit Diagnoses/Problems Assessed 8 weeks [...] TO FREE T4 IF ABNORMAL; Status:Active; Requested for:21Nov2021; Type and Screen; Status:Active; Requested for:21Nov2021; Provider Impressions Patient is a 26-year-old 2 [...] TABS Vitals Vital Signs Recorded: 21Nov2021 01:23PM [id number] Spletzjku56 Height5 ft 4 in Vrzejx770 lb BMI Tndeqrpwca57.23 kg/m2 BSA Calculated2.14 [id number] Physical Exam Constitutional: Healthy-appearing in no physical [...] Nov 21 2021 1:41PM EST (Author) Normal [employer] Rubella IgG Antibodyon 11-21 Rubella virus IgG IA Ql Negative [employer] [facility] Phone: Comment on above: INTERPRETATIVE COMME NT [...] IgG+IgM IA Ql (S) Non-Reactive See Below [facility] [address] Work Phone: Comment on above: Reference Range: NON REACTIVENo significant level of Treponema pallidum antibody detected. Repeat testing in 2 to 4 weeks may be considered if early infection or incubating syphilis infection is suspected. TSH WITH REFLEX TO FREE T4 I F ABNORMALon 11-21-2021 TSH Qn 1.46 m[IU]/L Normal 0.44 - 3.98 [facility] Comment on above: Result Comment: TSH testing is performed using different testing methodology at [facility] than at other [facility]. Direct result comparisons should only be made within the same method. Performed By: #### T HYDS #### [facility] [address] [place] [address] ANES Lucho 12-21-2018 ANES POST HNO ID: [id number] Author: Mayank Hall Service: Anesthesiology Author Type: [...] 21, 2018 TIME: 10:24 AM PAGER/CONTACT #: [phone] [facility] ANES POST HNO ID: [id number] Author: Inocencia Fall Service: Anesthesiology Author Type: [...] 21, 2018 TIME: 10:36 AM PAGER/CONTACT #: [phone] [facility] ANES PREOPon 12-21-2018 ANES PREOP HNO ID: [id number] Author: Inocencia Fall Service: Anesthesiology Author Type: [...] disorder (HCC) - Childhood asthma - Endometriosis SATELLITE TECHNICIAN: [facility] - GERD (gastroesophageal reflux disease) - Iron [...] Take 1 capsule by mouth once daily. JUNEL 1.5, 21, 1.5-30 mg-mcg tab Multivitamin capsule Take 1 [...] December 21, 2018 TIME: 7:17 AM CSN: [id number] [facility] BRIEF OP NOTon 12-21-2018 BRIEF OP NOT HNO ID: [id number] Author: Jessica Reardon DPM Service: Podiatry Author Type: Resident Type: Brief Op Note Filed: 12/21/2018 8:28 AM Note Text: -------- Attestation signed by Sparkle Dave at 12/22/2018 9:35 PM I was present and agree with resident brief op note Sparkle Dave DPM -------- BRIEF OP NOTE LOG ID: [id number] Surgery/Procedure Date: 12/21/2018 Incision/Procedure Start Time: 7:59 AM Incision Close/Procedure End Time: 8:22 AM Surgeon(s)/Proceduralist (s) and Hop Weigher(s): Surgeon(s) and Role: * Sparkle Dave - [...] 21, 2018 TIME: 8:25 AM PAGER/CONTACT #: [facility] HISTORY PHYSICALon HISTORY PHYSICAL HNO ID: [id number] Author: Sparkle Dave Service: Podiatry Author Type: [...] disorder (HCC) - Childhood asthma - Endometriosis SATELLITE TECHNICIAN: [facility] - GERD (gastroesophageal reflux disease) - Iron [...] Medications Prior to Admission: lamoTRIgine (LAMICTAL STARTER, ORANGE, KIT) 25 mg [...] Prophylaxis/Anticoagulan ts 12/21/18 0700 pneumatic compression stockings (sd,il) SIGNATURE: Sparkle Dave DPM PATIENT NAME: Anai Webber DATE: December 21, 2018 TIME: 7:02 AM PAGER/CONTACT #: [phone] [facility] OPERATIVE NOon 12-21-2018 OPERATIVE NO HNO ID: [id number] Author: Sparkle Dave Service: Podiatry Author Type: Physician Type: Operative Report Filed: 12/22/2018 9:32 PM Note Text: OPERATIVE/PROCEDURE REPORT LOG ID: [id number] SURGERY/PROCEDURE DATE: 12/21/2018 INCISION/PROCEDURE START TIME: 7:59 AM INCISION CLOSE/PROCEDURE END TIME: 8:22 AM SURGEON(S)/PROCEDURALIST (S) AND TURNER SPLITTER MACHINE OPERATOR(S): Surgeon(s) and Role: * Sparkle Dave - Primary * Jessica Reardon DPM - Resident - Assisting Physician Hop Weigher: Yg Ernandez (Pa) (Jeremi) Barrie SURGERY/PROCEDURE(S): co2 laser of benign skin lesion, left foot ANESTHESIA: General SURGERY/PROCEDURE DETAILS: patient is a 23 year old female who has chronic skin lesion to left heel. This has been present for long duration. She has seen a children's choir director who was treating the lesion weekly with debridement and salicyclic acid. Patient states she was seeing the children's choir director weekly for over 8 weeks but no [...] 21, 2018 TIME: 11:05 AM PAGER/CONTACT #: [facility] PLAN OF CAREon 12-21-2018 PLAN OF CARE HNO ID: [id number] Author: Abbey Dotson ([employer]) Service: Pharmacy Author Type: ? Type: Plan of Care Filed: 12/21/2018 9:38 AM Note Text: ZIPPER SETTER CHAINSTITCH BEDSIDE DELIVERY SURVEY 1. Patient to use [facility] Bedside Delivery - YES Insurance Information as follows: 2. Insurance card on file - YES 3. Credit card for payment - YES PHARMACY BEDSIDE DELIVERY SERVICE Patient Name: Anai Webber The marked outpatient medications were Filled at: [facility] and delivered to the patient's bedside to pharmacy knot picker cloth Medication List START taking these medications traMADol [...] mouth twice daily as needed for Anxiety. JUNEL (21) 1.5-30 mg-mcg Tab Generic drug: Norethindrone Acet-Ethinyl Est * lamoTRIgine 25 mg (42) -100 mg (7) Dspk Commonly known as: LaMICtal Starter ([place]ricks) Kit Take 25 mg by mouth once [...] or your Primary Care Provider. Abbey Dotson ([employer]) PAGER: [phone] December 21, 2018 9:37 AM [facility] PROGRESSon 12-21-2018 PROGRESS HNO ID: [id number] Author: Jessica Reardon DPM Service: Podiatry Author [...] December 21, 2018 TIME: 6:57 AM PAGER: [facility] PT EDon 12-21-2018 PT ED HNO ID: [id number] Author: Matthew (Rn) JOANIE Anthony Service: Nursing Author Type: Registered Nurse Type: [...] Signed By: Matthew Anthony RN In Department: [facility] SURGERY [facility] PT ED HNO ID: [id number] Author: Matthew (Rn) JOANIE Anthony Service: Nursing Author Type: Registered Nurse Type: [...] Signed By: Matthew Anthony RN In Department: [facility] SURGERY [facility] SURGICAL PATHOLOGYon 019 SURGICAL PATHOLOGY Specimen originated from [facility] Specimen #: [id number] Submitting Physician: SPARKLE DAVE DPM __ FINAL DIAGNOSIS A. Skin, left foot, excision - Verruca plantaris. MELISSA/DES/emmanuel 12/23/2018 Dipika Cruz M.D. (Electronic Signature) SPECIMEN [...] in one cassette. Gross examination performed at [facility], [address] [place] [address] 12/21/2018 5:09:51 PM Date of Report: 12/23/2018 Date of Procedure: 12/21/2018 Date of Receipt: 12/21/2018 Submitted by: SPARKLE DAVE DPM Location: [facility] Diagnostic interpretation performed at [facility], [address] [place] [address]. CLIA Number: [id number] [facility] NURSING PROGon 12-15-2018 NURSING PROG HNO ID: [id number] Author: Gwendolyn ValentinoRn) JOANIE Tran Service: ? Author Type: Registered [...] Tran RN December 15, 2018 12:34 PM [facility] HOSPon 12-03-2018 HOSP Patient:Anai Webber MRN: Height:5' [...] 12/09/2018 46.0 36.0 Progress Notes ([facility]): SAMMY Dillon 12/17/2018 8:58 AM Signed Behavioral Health Social Work Progress Note Encounter Type: Update [facility] contacted Pt at [phone] for f/u [facility] was calling to clarify Pt's insurance and to assist Pt with resources. Pt stated she will be losing her [place] insurance in -20 Pt stated [facility] and has an appt for intake on 01-06-19 at 3:30pm Pt is concerned about the amount of time she will need to take off work, she will not be able to see a counselor and a psychiatrist on a monthly basis. -[facility] encouraged Pt to address this with the [facility] when she attends her appt -[facility] stated it is his understanding that when a Pt is stabilized with their symptoms appts with the psychiatrist can be spaced further apart, allowing for Pt to see a counselor. -Pt stated she previously received services at [facility] and they required Pt be seen by psychiatrist on monthly basis -[facility] stated each agency/provider have different criteria therefore encouraged Pt to discuss her concerns at the first visit. -Pt agreed Pt was reminded of the crisis # [phone] Pt was reminded of [facility]'s contact # [phone]. Pt [address] [facility] f/u with her, I'm all set [facility] reminded Pt if she has any behavioral health needs in the future to please contact [facility] Pt voiced understanding. No further contact is indicated at this time. Pt has an [facility] on [facility]06[facility]19. Pt has [facility]'s contact info. Omkar Graylexis DIVERSIONAL THERAPIST'S ASSISTANTChanda December 17, 2018 Hamzah Angela MD 12/17/2018 8:59 AM Signed Agree thanks. Progress Notes ([facility]): Melva Rodarte LPN 12/16/2018 8:14 AM [...] before bedtime or any changes. Patient uses [facility] for her pharmacy. Please advise Hamzah Angela [...] another week again from PCP notes. Normal [facility] Culture, urine Bacteria identified Cx Nom (U) Presumptive Lactobacillus sp. [facility] Work Phone: Vital Signs Date Time Vital Sign Value Performing Clinician Facility 09-02-2024 11:25-0400 Body height 162.56 cm No Primary Care Physician [facility] 09-02-2024 11:25-0400 Body mass index (BMI) [Ratio] 48.4 kg/m2 No Primary Care Physician [facility] 09-02-2024 11:25-0400 Body weight 128.02 kg No Primary Care Physician [facility] 09-02-2024 11:25-0400 Diastolic blood pressure 84 mm[Hg] No Primary Care Physician [facility] 09-02-2024 11:25-0400 Systolic blood pressure 120 mm[Hg] No Primary Care Physician [facility] 08-26-2024 13:15-0400 Body height 162.56 cm No Primary Care Physician [facility] 08-26-2024 13:14-0400 Body mass index (BMI) [Ratio] 48.2 kg/m2 No Primary Care Physician [facility] 08-26-2024 13:14-0400 Body weight 127.57 kg No Primary Care Physician [facility] 08-26-2024 13:14-0400 Diastolic blood pressure 80 mm[Hg] No Primary Care Physician [facility] 08-26-2024 13:14-0400 Systolic blood pressure 119 mm[Hg] No Primary Care Physician [facility] 08-11-2024 13:27-0400 Diastolic blood pressure 89 mm[Hg] No Primary Care Physician [facility] 08-11-2024 13:27-0400 Heart rate 100 /min No Primary Care Physician [facility] 08-11-2024 13:27-0400 Systolic blood pressure 128 mm[Hg] No Primary Care Physician [facility] 08-11-2024 13:01-0400 Body height 162.56 cm No Primary Care Physician [facility] 08-11-2024 13:01-0400 Body mass index (BMI) [Ratio] 47.5 kg/m2 No Primary Care Physician [facility] 08-11-2024 13:01-0400 Body weight 125.64 kg No Primary Care Physician [facility] 08-11-2024 12:55-0400 Body temperature 98.1 [degF] No Primary Care Physician [facility] 08-11-2024 12:55-0400 Respiratory rate 13 /min No Primary Care Physician [facility] 08-11-2024 12:55-0400 SaO2% (BldA) [Mass fraction] 100 % No Primary Care Physician [facility] 08-11-2024 12:54-0400 SaO2% (BldA) [Mass fraction] 96 % No Primary Care Physician [facility] 08-11-2024 10:10-0400 Body height 162.56 cm No Primary Care Physician [facility] 08-11-2024 10:10-0400 Body mass index (BMI) [Ratio] 47.6 kg/m2 No Primary Care Physician [facility] 08-11-2024 10:10-0400 Body weight 125.87 kg No Primary Care Physician [facility] 08-11-2024 10:10-0400 Diastolic blood pressure 87 mm[Hg] No Primary Care Physician [facility] 08-11-2024 10:10-0400 Systolic blood pressure 121 mm[Hg] No Primary Care Physician [facility] 07-27-2024 13:40-0400 Body height 162.56 cm No Primary Care Physician [facility] 07-27-2024 13:40-0400 Body mass index (BMI) [Ratio] 47.7 kg/m2 No Primary Care Physician [facility] 07-27-2024 13:40-0400 Body weight 126.15 kg No Primary Care Physician [facility] 07-27-2024 13:40-0400 Diastolic blood pressure 86 mm[Hg] No Primary Care Physician [facility] 07-27-2024 13:40-0400 Systolic blood pressure 126 mm[Hg] No Primary Care Physician [facility] 07-13-2024 14:55-0400 Body mass index (BMI) [Ratio] 47.2 kg/m2 No Primary Care Physician [facility] 07-13-2024 14:55-0400 Body weight 124.9 kg No Primary Care Physician [facility] 07-13-2024 14:55-0400 Diastolic blood pressure 76 mm[Hg] No Primary Care Physician [facility] 07-13-2024 14:55-0400 Systolic blood pressure 117 mm[Hg] No Primary Care Physician [facility] 06-30-2024 14:36-0400 Body height 162.56 cm No Primary Care Physician [facility] 06-30-2024 14:31-0400 Body mass index (BMI) [Ratio] 46.7 kg/m2 No Primary Care Physician [facility] 06-30-2024 14:31-0400 Body weight 123.54 kg No Primary Care Physician [facility] 06-30-2024 14:31-0400 Diastolic blood pressure 86 mm[Hg] No Primary Care Physician [facility] 06-30-2024 14:31-0400 Systolic blood pressure 124 mm[Hg] No Primary Care Physician [facility] 06-21-2024 21:15-0400 Body height 162.56 cm No Primary Care Physician [facility] 06-21-2024 21:15-0400 Body mass index (BMI) [Ratio] 46.6 kg/m2 No Primary Care Physician [facility] 06-21-2024 21:15-0400 Body weight 123.3 kg No Primary Care Physician [facility] 06-21-2024 21:00-0400 Body temperature 97.8 [degF] No Primary Care Physician [facility] 06-21-2024 21:00-0400 Respiratory rate 16 /min No Primary Care Physician [facility] 06-21-2024 20:59-0400 Diastolic blood pressure 64 mm[Hg] No Primary Care Physician [facility] 06-21-2024 20:59-0400 Heart rate 90 /min No Primary Care Physician [facility] 06-21-2024 20:59-0400 SaO2% (BldA) [Mass fraction] 97 % No Primary Care Physician [facility] 06-21-2024 20:59-0400 Systolic blood pressure 119 mm[Hg] No Primary Care Physician [facility] 06-16-2024 14:12-0400 Body mass index (BMI) [Ratio] 46.7 kg/m2 No Primary Care Physician [facility] 06-16-2024 14:12-0400 Body weight 123.37 kg No Primary Care Physician [facility] 06-16-2024 14:12-0400 Diastolic blood pressure 87 mm[Hg] No Primary Care Physician [facility] 06-16-2024 14:12-0400 Systolic blood pressure 125 mm[Hg] No Primary Care Physician [facility] 04-21-2024 13:38-0500 Body mass index (BMI) [Ratio] 46.3 kg/m2 No Primary Care Physician [facility] 04-21-2024 13:38-0500 Body weight 122.46 kg No Primary Care Physician [facility] 04-21-2024 13:38-0500 Diastolic blood pressure 76 mm[Hg] No Primary Care Physician [facility] 04-21-2024 13:38-0500 Systolic blood pressure 111 mm[Hg] No Primary Care Physician [facility] 03-26-2024 13:14-0500 Body mass index (BMI) [Ratio] 46.4 kg/m2 No Primary Care Physician [facility] 03-26-2024 13:14-0500 Body weight 122.64 kg No Primary Care Physician [facility] 03-26-2024 13:14-0500 Diastolic blood pressure 81 mm[Hg] No Primary Care Physician [facility] 03-26-2024 13:14-0500 Systolic blood pressure 118 mm[Hg] No Primary Care Physician [facility] 03-10-2024 18:30-0500 Body height 162.6 cm Lenard Santiago [employer]BER DEADENER-RECRUITMENT SPECIALIST Work Phone: [facility] 03-10-2024 18:30-0500 Body mass index (BMI) [Ratio] 45.57 kg/m2 Lenard Santiago [employer] DEAD[employer]RECRUITMENT SPECIALIST Work Phone: [facility] 03-10-2024 18:30-0500 Body temperature 97.7 [degF] Lenard Santiago [employer]BER DEADENER-RECRUITMENT SPECIALIST Work Phone: [facility] 03-10-2024 18:30-0500 Body weight 120.43 kg Lenard Santiago [employer]BER DEADENER-RECRUITMENT SPECIALIST Work Phone: [facility] 03-10-2024 18:30-0500 Diastolic blood pressure 81 mm[Hg] Lenard Santiago [employer]BER DEADENER-RECRUITMENT SPECIALIST Work Phone: [facility] 03-10-2024 18:30-0500 Heart rate 99 /min Lenard Santiago [employer]BER DEADENER-RECRUITMENT SPECIALIST Work Phone: [facility] [employer] [facility] 03-10-2024 18:30-0500 Respiratory rate 15 /min Lenard Santiago [employer] DEAD[employer]-RECRUITMENT SPECIALIST Work Phone: [facility] [employer] [facility] 03-10-2024 18:30-0500 SaO2% (BldA) [Mass fraction] 96 % Lenard Santiago [employer] DEADENER-RECRUITMENT SPECIALIST Work Phone: [facility] [employer] [facility] 03-10-2024 18:30-0500 Systolic blood pressure 115 mm[Hg] Lenard Santiago [employer]BER DEADENER-RECRUITMENT SPECIALIST Work Phone: [facility] 10-14-2023 10:51-0400 Body temperature 98.71 [degF] Uzair Cabrera MD Work Phone: [employer] [facility] 10-14-2023 10:51-0400 Diastolic blood pressure 80 mm[Hg] Uzair Cabrera MD Work Phone: [employer] [facility] 10-14-2023 10:51-0400 Heart rate 80 /min Uzair Cabrera MD Work Phone: [employer] [facility] 10-14-2023 10:51-0400 Respiratory rate 17 /min Uzair Cabrera MD Work Phone: [employer] [facility] 10-14-2023 10:51-0400 SaO2% (BldA) [Mass fraction] 90 % Uzair Cabrera MD Work Phone: [employer] [facility] 10-14-2023 10:51-0400 Systolic blood pressure 150 mm[Hg] Uzair Cabrera MD Work Phone: [employer] 10-14-2023 07:36-0400 Body height 162.6 cm Uzair Cabrera MD Work Phone: [employer] [facility] 10-14-2023 07:36-0400 Body mass index (BMI) [Ratio] 46.96 kg/m2 Uzair Cabrera MD Work Phone: [facility] 10-14-2023 07:36-0400 Body weight 124.15 kg Uzair Cabrera MD Work Phone: [facility] 10-13-2023 11:25-0400 SaO2% (BldA) [Mass fraction] 95.1 % Uzair Cabrera MD Work Phone: [facility] 09-18-2022 07:51-0400 Blood Pressure Location Alexander Gudimella [facility] 09-18-2022 07:51-0400 Diastolic blood pressure 68 mm[Hg] Alexander Gudimella [facility] 09-18-2022 07:51-0400 Heart rate 99 /min Alexander Gudimella [facility] 09-18-2022 07:51-0400 SaO2% (BldA) [Mass fraction] 97 % Alexander Gudimella [facility] 09-18-2022 07:51-0400 Systolic blood pressure 100 mm[Hg] Alexander Gudimella [facility] 07-30-2022 11:11-0400 Body height 162.[address] Beverley Moncada Work Phone: [facility] 07-30-2022 11:08-0400 Body mass index (BMI) [Ratio] 42.5 kg/m2 Dr. Beverley Moncada Work Phone: [facility] 07-30-2022 11:08-0400 Body weight 112.[address] Beverley Moncada Work Phone: [facility] 07-30-2022 11:08-0400 Diastolic blood pressure 79 mm[Hg] Dr. Beverley Moncada Work Phone: [facility] 07-30-2022 11:08-0400 Systolic blood pressure 124 mm[Hg] Dr. Beverley Moncada Work Phone: [facility] 06-12-2022 11:10-0400 Body mass index (BMI) [Ratio] 45.4 kg/m2 Dr. Beverley Moncada Work Phone: [facility] 06-12-2022 11:10-0400 Body weight 120.[address] Beverley Moncada Work Phone: [facility] 06-12-2022 11:10-0400 Diastolic blood pressure 84 mm[Hg] Dr. Beverley Moncada Work Phone: [facility] 06-12-2022 11:10-0400 Systolic blood pressure 125 mm[Hg] Dr. Beverley Moncada Work Phone: [facility] 06-11-2022 15:30-0400 Body temperature 98.1 [degF] Dr. Beverley Moncada Work Phone: [facility] 06-11-2022 15:30-0400 Diastolic blood pressure 63 mm[Hg] Dr. Beverley Moncada Work Phone: [facility] 06-11-2022 15:30-0400 Heart rate 96 /min Dr. Beverley Moncada Work Phone: [facility] 06-11-2022 15:30-0400 Respiratory rate 18 /min Dr. Beverley Moncada Work Phone: [facility] 06-11-2022 15:30-0400 Systolic blood pressure 128 mm[Hg] Dr. Beverley Moncada Work Phone: [facility] 06-11-2022 07:40-0400 SaO2% (BldA) [Mass fraction] 94 % Dr. Beverley Moncada Work Phone: [facility] 06-08-2022 22:11-0400 Body height 162.[address] Beverley Moncada Work Phone: [facility] 06-08-2022 22:11-0400 Body mass index (BMI) [Ratio] 47.2 kg/m2 Dr. Beverley Moncada Work Phone: [facility] 06-08-2022 22:11-0400 Body weight 124.[address] Beverley Moncada Work Phone: [facility] 06-03-2022 14:59-0400 Body weight 123.[address] Beverley Moncada Work Phone: [facility] 06-03-2022 10:59-0400 Body height 162.[address] Beverley Moncada Work Phone: [facility] 06-03-2022 10:57-0400 Body mass index (BMI) [Ratio] 29.5 kg/m2 Dr. Beverley Moncada Work Phone: [facility] 06-03-2022 10:57-0400 Diastolic blood pressure 78 mm[Hg] Dr. Beverley Moncada Work Phone: [facility] 06-03-2022 10:57-0400 Systolic blood pressure 114 mm[Hg] Dr. Beverley Moncada Work Phone: [facility] 05-28-2022 11:20-0500 Body mass index (BMI) [Ratio] 46 kg/m2 Dr. Beverley Moncada Work Phone: [facility] 05-28-2022 11:20-0500 Body weight 121.[address] Beverley Moncada Work Phone: [facility] 05-28-2022 11:20-0500 Diastolic blood pressure 83 mm[Hg] Dr. Beverley Moncada Work Phone: [facility] 05-28-2022 11:20-0500 Systolic blood pressure 118 mm[Hg] Dr. Beverley Moncada Work Phone: [facility] 05-22-2022 11:05-0500 Body mass index (BMI) [Ratio] 46.5 kg/m2 Dr. Beverley Moncada Work Phone: [facility] 05-22-2022 11:05-0500 Body weight 122.[address] Beverley Moncada Work Phone: [facility] 05-22-2022 11:05-0500 Diastolic blood pressure 77 mm[Hg] Dr. Beverley Moncada Work Phone: [facility] 05-22-2022 11:05-0500 Systolic blood pressure 124 mm[Hg] Dr. Beverley Moncada Work Phone: [facility] 04-22-2022 10:47-0500 Body mass index (BMI) [Ratio] 44.6 kg/m2 Dr. Beverley Moncada Work Phone: [facility] 04-22-2022 10:47-0500 Body weight 117.[address] Beverley Moncada Work Phone: [facility] 04-22-2022 10:47-0500 Diastolic blood pressure 85 mm[Hg] Dr. Beverley Moncada Work Phone: [facility] 04-22-2022 10:47-0500 Systolic blood pressure 127 mm[Hg] Dr. Beverley Moncada Work Phone: [facility] 04-08-2022 12:14-0500 Body temperature 97.8 [degF] Dr. Beverley Moncada Work Phone: [facility] 04-08-2022 12:14-0500 Diastolic blood pressure 60 mm[Hg] Dr. Beverley Moncada Work Phone: [facility] 04-08-2022 12:14-0500 Heart rate 88 /min Dr. Beverley Moncada Work Phone: [facility] 04-08-2022 12:14-0500 SaO2% (BldA) [Mass fraction] 96 % Dr. Beverley Moncada Work Phone: [facility] 04-08-2022 12:14-0500 Systolic blood pressure 117 mm[Hg] Dr. Beverley Moncada Work Phone: 7(045)090-7330[address] [place] [address] 04-08-2022 11:51-0500 Body mass index (BMI) [Ratio] 44.4 kg/m2 Dr. Beverley Moncada Work Phone: 3(632)[phone] [place] [address] 04-08-2022 11:51-0500 Body weight 117.[address] Beverley Moncada Work Phone: 6(232)731-221321 [place] [address] 04-08-2022 11:02-0500 Body mass index (BMI) [Ratio] 44.5 kg/m2 Dr. Beverley Moncada Work Phone: 7(909)532-469521 [place] [address] 04-08-2022 11:02-0500 Body weight 117.[address] Beverley Moncada Work Phone: 0(122)332-679821 [place] [address] 04-08-2022 11:02-0500 Diastolic blood pressure 68 mm[Hg] Dr. Beverley Moncada Work Phone: 8(868)918-010021 [place] [address] 04-08-2022 11:02-0500 Systolic blood pressure 110 mm[Hg] Dr. Beverley Moncada Work Phone: 7(929)[phone] [place] [address] 03-13-2022 15:15-0500 Body mass index (BMI) [Ratio] 44.3 kg/m2 Dr. Beverley Moncada Work Phone: 7(293)[phone] [place] [address] 03-13-2022 15:15-0500 Body weight 117.[address] Beverley Moncada Work Phone: [facility] 03-13-2022 15:15-0500 Diastolic blood pressure 68 mm[Hg] Dr. Beverley Moncada Work Phone: [facility] 03-13-2022 15:15-0500 Systolic blood pressure 108 mm[Hg] Dr. Beverley Moncada Work Phone: [facility] 01-02-2022 15:54-0400 Body height 162.56 cm [facility] Work Phone: 01-02-2022 15:54-0400 Body mass index (BMI) [Ratio] 42.6 kg/m2 [facility] Work Phone: 01-02-2022 15:54-0400 Body weight 112.66 kg [facility] Work Phone: 01-02-2022 15:54-0400 Diastolic blood pressure 84 mm[Hg] [facility] Work Phone: 01-02-2022 15:54-0400 Systolic blood pressure 123 mm[Hg] [facility] Work Phone: 12-06-2021 14:55-0400 Body height 162.[address] Beverley Moncada Work Phone: [facility] Work Phone: 12-06-2021 14:55-0400 Body mass index (BMI) [Ratio] 42.5 kg/m2 Dr. Beverley Moncada Work Phone: [facility] Work Phone: 12-06-2021 14:55-0400 Body weight 112.[address] Beverley Moncada Work Phone: [facility] Work Phone: 12-06-2021 14:55-0400 Diastolic blood pressure 72 mm[Hg] Dr. Beverley Moncada Work Phone: [facility] Work Phone: 12-06-2021 14:55-0400 Systolic blood pressure 110 mm[Hg] Dr. Beverley Moncada Work Phone: [facility] Work Phone: 11-21-2021 13:23-0400 Body height 162.56 cm Kelly Madera DO Work Phone: [facility] [place] Work Phone: 11-21-2021 13:23-0400 Body mass index (BMI) [Ratio] 42.23 kg/m2 Kelly Madera DO Work Phone: [facility] [place] Work Phone: 11-21-2021 13:23-0400 Body surface area Derived from formula 2.14 m2 Kelly Madera DO Work Phone: [facility] [place] Work Phone: 11-21-2021 13:23-0400 Body weight 111.59 kg Kelly Madera DO Work Phone: [facility] [place] Work Phone: 11-21-2021 13:23-0400 Diastolic blood pressure 78 mm[Hg] Kelly Madera DO Work Phone: [facility] [place] Work Phone: 11-21-2021 13:23-0400 Systolic blood pressure 118 mm[Hg] Kelly Madera DO Work Phone: [facility] [place] Work Phone: Encounters Encounter Date Encounter Type Care Provider Facility Start: 09-02-2024 End: 09-02-2024 ambulatory No Primary Care Physician Facility:[facility] Start: 09-02-2024 End: 09-02-2024 Patient encounter procedure Fariba BREAUX -[facility] Work Phone: Start: 08-26-2024 End: 08-26-[address] Nenita Wells MD -[facility] Work Phone: Start: 08-26-2024 End: 08-26-2024 ambulatory No Primary Care Physician [facility] Work Phone: Start: 08-19-2024 End: 08-19-2024 Patient encounter procedure Tenisha Reyna CNM -[facility] Work Phone: Start: 08-19-2024 Encounter for genera l adult medical examination without abnormal findings Beverley Moncada [facility] Start: 08-19-2024 Non-patient / Non-visit Dr. Beverley Moncada DO -[facility] Start: 08-19-2024 End: 08-19-2024 ambulatory OOTDR KOSD Facility:[facility] Start: 08-11-2024 End: 08-11-2024 ambulatory No Primary Care Physician [facility] Work Phone: Start: 08-11-2024 End: 08-11-[address] Beverley Moncada DO -[facility] Work Phone: Start: 08-11-2024 End: 08-11-[address] Beverley Moncada DO -[facility] Work Phone: Start: 08-11-2024 End: 08-11-2024 ambulatory No Primary Care Physician [facility] Work Phone: Start: 07-27-2024 End: 07-27-2024 Patient encounter procedure Tenisha Reyna CNM -[facility] Work Phone: Start: 07-27-2024 End: 07-27-2024 ambulatory No Primary Care Physician [facility] Work Phone: Start: 07-27-2024 End: 07-27-2024 ambulatory Nenita Wells Facility:[facility] Start: 07-13-2024 End: 07-13-[address] Nenita Wells MD -[facility] Work Phone: Start: 07-13-2024 End: 07-13-2024 ambulatory Nenita Wells Facility:[facility] Start: 06-30-2024 End: 06-30-2024 Patient encounter procedure Fariba BREAUX -[facility] Work Phone: Start: 06-30-2024 End: 06-30-2024 ambulatory No Primary Care Physician [facility] Work Phone: Start: 06-30-2024 End: 06-30-2024 ambulatory Nenita Wells Facility:[facility] Start: 06-22-2024 ambulatory No Primary Car e Physician Facility:[facility] Start: 06-22-2024 ambulatory No Primary Car e Physician Facility:[facility] Start: 06-22-2024 Non-patient / Non-visit Tenisha Reyna CNM -[facility] Start: 06-21-2024 End: 06-21-2024 ambulatory No Primary Care Physician [facility] Work Phone: Start: 06-21-2024 End: 06-21-[address] Nenita Wells MD -[facility] Work Phone: Start: 06-16-2024 End: 06-16-[address] Beverley Moncada DO -[facility] Work Phone: Start: 06-16-2024 End: 06-16-2024 ambulatory No Primary Care Physician Facility:[facility] Start: 05-19-2024 ambulatory No Primary Car e Physician Facility:[facility] Start: 05-06-2024 End: 05-06-2024 ambulatory IVANIA [facility] Start: 04-21-2024 End: 04-21-2024 Patient encounter procedure Fariba BREAUX -[facility] Work Phone: Start: 04-21-2024 End: 04-21-2024 ambulatory No Primary Care Physician Facility:[facility] Start: 03-26-2024 End: 03-26-[address] Nenita Wells MD -[facility] Work Phone: Start: 03-26-2024 End: 03-26-2024 ambulatory No Primary Care Physician Facility:[facility] Start: 03-26-2024 End: 03-26-2024 ambulatory No Primary Care Physician Facility:[facility] Start: 03-10-2024 End: 03-10-2024 Office outpatient visit 15 minutes Lenard Santiago [employer] Work Phone: [facility] Comment on above: Pneumonia of left antonino ng due to infectious organism, unspecified part of lung (Primary Dx); Cough, unspecified type Start: 03-10-2024 ambulatory LENARD SANTIAGO [facility] Start: 02-18-2024 End: 02-18-2024 ambulatory No Primary Care Physician Facility:[facility] Start: 02-18-2024 End: 02-18-2024 ambulatory No Primary Care Physician Facility:[facility] Start: 10-10-2023 End: 10-14-2023 Evaluation and management of inpatient Uzair Cabrera MD Work Phone: [facility] Comment on above: Pneumonia Start: 05-13-2023 End: 05-14-2023 [facility] Start: 01-28-2023 End: 01-29-2023 ambulatory [facility] Start: 01-28-2023 End: 01-29-2023 Encounter for general adult medical examination without abnormal findings [facility] Start: 11-04-2022 End: 11-05-2022 ambulatory Alexander Gudimella Facility:[facility] Start: 11-04-2022 End: 11-04-2022 Patient encounter procedure Alexander Gudimella [facility] Start: 10-21-2022 End: 10-22-2022 ambulatory Alexander Gudimella Facility:[facility] Start: 10-21-2022 End: 10-21-2022 Patient encounter procedure Alexander Gudimella [facility] Start: 10-01-2022 End: 10-02-2022 ambulatory Alexander Gudimella Facility:[facility] Start: 10-01-2022 End: 10-01-2022 Patient encounter procedure Alexander Gudimella [facility] Start: 10-01-2022 End: 10-02-2022 ambulatory Alexander Gudimella Facility:[facility] Start: 09-18-2022 End: 09-19-2022 ambulatory Alexander Gudimella Facility:[facility] Start: 09-18-2022 End: 09-18-2022 Patient encounter procedure Alexander Gudimella [facility] Start: 09-12-2022 End: 09-13-2022 Emergency department patient visit Provider Pending Facility:[facility] Start: 09-11-2022 ambulatory LAURA SIDELL Facility:[facility] Start: 08-27-2022 End: 08-28-2022 ambulatory LAURA W SIDELL Facility:[facility] Start: 08-27-2022 End: 08-27-2022 Off-Site LAURA W SIDELL [facility] Start: 07-30-2022 End: 07-30-[address] Beverley Moncada Work Phone: [facility] Work Phone: Start: 07-30-2022 End: 07-30-[address] Beverley Moncada Work Phone: [facility]Laboratory, Specimen Start: 07-30-2022 End: 07-30-[address] Beverley Moncada Work Phone: [facility] Start: 06-16-2022 End: 06-16-[address] Beverley Moncada Work Phone: [facility] Start: 06-12-2022 End: 06-12-[address] Beverley Moncada Work Phone: [facility] Start: 06-11-2022 Non-patient / Non-visit Dr. Beverley Moncada Work Phone: [facility] Start: 06-10-2022 Non-patient / Non-visit Dr. Beverley Moncada Work Phone: [facility] Start: 06-09-2022 Non-patient / Non-visit Dr. Beverley Moncada Work Phone: [facility] Start: 06-08-2022 Non-patient / Non-visit Dr. Beverley Moncada Work Phone: [facility] Start: 06-08-2022 End: 06-11-2022 Evaluation and management of inpatient Dr. Beverley Moncada Work Phone: [facility] Start: 06-03-2022 End: 06-03-[address] Beverley Moncada Work Phone: [facility] Work Phone: Start: 06-03-2022 End: 06-03-[address] Beverley Moncada Work Phone: [facility] Ultrasound Start: 06-03-2022 End: 06-03-[address] Beverley Moncada Work Phone: [facility] Start: 05-28-2022 End: 05-28-[address] Beverley Moncada Work Phone: [facility] Start: 05-22-2022 End: 05-22-[address] Beverley Moncada Work Phone: [facility] Start: 04-22-2022 End: 04-22-[address] Beverley Moncada Work Phone: [facility] Start: 04-08-2022 Non-patient / Non-visit Dr. Beverley Moncada Work Phone: [facility] Start: 04-08-2022 End: 04-08-[address] Beverley Moncada Work Phone: [facility], Outpatients Start: 03-28-2022 End: 03-28-2022 ambulatory Provider Pending Facility:[facility] Start: 03-13-2022 End: 03-13-[address] Beverley Moncada Work Phone: [facility] Start: 01-02-2022 End: 01-02-2022 ambulatory [facility] Work Phone: Start: 01-02-2022 End: 01-02-2022 Patient encounter procedure [facility] Specimen Start: 01-02-2022 End: 01-02-2022 Patient encounter procedure [facility] Start: 12-12-2021 End: 12-12-2021 Patient encounter procedure [facility] Start: 12-06-2021 End: 12-06-[address] Beverley Moncada Work Phone: [facility] Work Phone: Start: 12-06-2021 End: 12-06-[address] Beverley Moncada Work Phone: [facility] Start: 12-06-2021 End: 12-06-[address] Beverley Moncada Work Phone: [facility] Start: 11-23-2021 Chart Update Kelly Madera DO Work Phone: [address] Work Phone: Start: 03-02-2016 End: 03-03-2016 Patient encounter [place] [facility] Facility:01 Procedures Date Procedure Procedure Detail Performing Clinician Start: 08-26-2024 Beta-hemolytic Strep tococcus culture No Primary Care Physician Start: 08-26-2024 Ultrasonography for biophysical profile without non-stress testing No Primary Care Physician Start: 08-19-2024 Ultrasonography for biophysical profile without non-stress testing No Primary Care Physician Start: 08-11-2024 Measurement of pH in vaginal [...] by JADYN with probe detection Lenard Santiago [employer] Work Phone: Start: 10-14-2023 C-reactive protein Step johnnie Lara [employer] Work Phone: Start: 10-14-2023 Complete blood count with white cell differential, automated Marilee Dallas DO Work Phone: Start: 10-14-[address] josseline Fincher [employer] Work Phone: Start: 10-13-2023 Echo tthrc r-t 2d w/ wom-mode compl spec&colr d Shanon J Shanae [employer] Work Phone: Start: 10-13-2023 Assay of lactate Chasit y J Shanae [employer] Work Phone: Start: 10-13-2023 Blood gases any comb ination ph pco2 po2 co2 hco3 Shanon J Shanae [employer] Work Phone: Start: 10-13-2023 Radiologic exam ches t single view Marilee Dallas DO Work Phone: Start: 10-13-2023 C-reactive protein Step hen D [place] [employer] Work Phone: Start: 10-13-[address] josseline Diaz Alejandro [employer] Work Phone: Start: 10-13-2023 Assay of lactate Stephe n D [place] [employer] Work Phone: Start: 10-12-2023 Assay of lactate Stephe n D [place] [employer] Work Phone: Start: 10-12-2023 Assay of lactate Stephe n D [place] [employer] Work Phone: Start: 10-12-2023 Urinalysis microscopic only Uzair D Jane [employer] Work Phone: Start: 10-12-2023 Urinalysis, reagent strip without microscopy Uzair D [place] [employer] Work Phone: Start: 10-12-2023 End: 10-12-2023 Assay of troponin quantitative Uzair D [place] [employer] Work Phone: Start: 10-12-2023 C-reactive protein Step hen D Jane [employer] Work Phone: Start: 10-12-2023 End: 10-12-2023 Natriuretic peptide Uzair Lara [employer] Work Phone: Start: 10-12-2023 Radiologic exam ches t single view Uzair Lara [employer] Work Phone: Start: 10-12-[address] josseline Diaz Alejandro [employer] Work Phone: Start: 10-11-2023 Ct angiography chest w/contrast/noncontrast Uzair Lara [employer] Work Phone: Start: 10-11-2023 Cultyp nuc acid amp prb cult/isolate ea orgnism Mirela Diaz Alejandro [employer] Work Phone: Start: 10-11-2023 Fibrin dgradj produc ts d-dimer qual/semiquan Mirela Diaz Alejandro [employer] Work Phone: Start: 10-11-2023 Ct thorax w/o contra st material Mirela Diaz Alejandro [employer] Work Phone: Start: 10-11-2023 Iaad ia mult step me thod nos each organism Mirela Diaz Alejandro [employer] Work Phone: Start: 10-11-2023 Blood count complete auto&auto difrntl wbc Marilee Dallas DO Work Phone: Start: 10-11-2023 C-reactive protein Esteban Diaz Alejandro [employer] Work Phone: Start: 10-10-2023 Culture bacterial bl [...] above: Performed By: #### T +S #### [facility] [address] [place] [address] Cytopathology proced ure, preparation of smear, genital source Dr. Beverley Moncada Work Phone: Dilation and curetta ge of uterus LAURA PEREZ [employer] Streptococcu s Culture Dr. Beverley Moncada Work Phone: Hysteroscopy Kelly Quiroga Work Phone: Comment on above: 2013; Investigation of tra nsfusion reaction Dr. Beverley Moncada Work Phone: None (qualifier value) LAURA PEREZ Urine culture LAURA PEREZ Plan of Treatment Date Care Activity Detail Author Start: 2053 RSV VACCINE (1 - 1-d ose 60+ series) RSV VACCINE (1 - 1-dose 60+ series) [facility] Start: 09-06-2029 Tetanus vaccination TETANUS [facility] Start: 10-13-2024 Potassium [Moles/vol ume] in Serum or Plasma POTASSIUM [facility] Start: 09-02-2024 Measurement of gluco se 2 hours after glucose challenge for glucose tolerance test [facility] Start: 08-26-2024 Biophysical pr ofile panel US [facility] Start: 08-26-2024 Ultrasonography for biophysical profile without non-stress testing Biophysical Prof W/O Non Stres [facility] Start: 08-26-2024 Ultrasound scan for growth [facility] Start: 08-11-2024 Iv infusion hydratio n initial 31 min-1 hour HYDRATION IV INFUSION INIT [facility] Start: 08-11-2024 Nonstress test [facility] Start: 08-11-2024 Obstetric monitoring [facility] Start: 08-11-2024 Vital signs measurements [facility] Start: 08-11-2024 [facility] Start: 08-11-2024 Patient discharge [facility] Start: 06-21-2024 Nonstress test [facility] Start: 06-21-2024 Source specific culture [facility] Start: 06-21-2024 End: 06-21-2024 [facility] Start: 06-21-2024 Obstetric monitoring [facility] Start: 06-21-2024 Vital signs measurements [facility] Start: 06-21-2024 Bacteria identified in Urine by Culture Urine Culture [facility] Start: 06-21-2024 Genital Culture Genital Culture [facility] Start: 06-21-2024 Microscopic observat ion [Identifier] in Unspecified specimen by Gram stain [facility] Start: 11-24-2023 End: 12-29-2023 CT Chest WO contrast CT CHEST WITHOUT CONTRAST Imaging Routine Pneumonia of both lungs due to infectious organism, unspecified part of lung Expected: 11/24/2023, Expires: 12/29/2023 [facility] Comment on above: Expected: 11/24/2023 , Expires: 12/29/2023 Start: 11-23-2023 COVID-19 VACCINE () COVID-19 VACCINE () [facility] Start: 11-23-2023 Influenza vaccination INFLUENZA VACC INE (#1) [facility] Start: 11-22-2022 COVID-19 VACCINE () COVID-19 VACCINE () [facility] Start: 06-11-2022 Patient discharge [facility] Start: 06-11-2022 [facility] Start: 06-10-2022 Consultation [facility] Start: 06-09-2022 Administration of medication [facility] Start: 06-09-2022 Application of ice c ollar, cap or bag [facility] Start: 06-09-2022 Catheterization of vein [facility] Start: 06-09-2022 Introduction of urin omar catheter [facility] Start: 06-09-2022 Measuring intake and output [facility] Start: 06-09-2022 Notification of physician [facility] Start: 06-09-2022 Procedure discontinued [facility] Start: 06-09-2022 Provision of activit y privileges [facility] Start: 06-09-2022 Vital signs measurements [facility] Start: 06-09-2022 [facility] Start: 06-08-2022 Admission procedure [facility] Start: 04-08-2022 Nonstress test [facility] Start: 04-08-2022 Obstetric monitoring [facility] Start: 04-08-2022 Vital signs measurements [facility] Start: 04-08-2022 [facility] Start: 04-08-2022 Patient discharge [facility] Start: 12-06-2021 Chlamydia deoxyribon ucleic acid detection [facility] Work Phone: Start: 12-06-2021 Liquid based cervica l cytology screening [facility] Work Phone: Start: 2014 Screening for malign ant neoplasm of cervix CERVICAL CANCER SCREENING DISCUSSION [facility] Start: 2012 Hepatitis B vaccination HEP B VACCINE (1 of 3 - 19+ 3-dose series) [facility] Start: 2008 HIV screening HIV SCREENING DISCUSSION [facility] Start: 1993 Hepatitis C screening HEPATITI S C VIRUS SCREENING [facility] Bacteria identified in Blood by Culture BLOOD CULTURE Microbiology [facility] 10/10/2023 10:28 PM EDT [facility] CBC W Auto Different ial panel - Blood [facility] Work Phone: CBC W Auto Different ial panel - Blood [facility] Biophysical pr ofile panel US [facility] Genital microscopy, culture and sensitivities [facility] Glucose [Mass/volume ] in Serum or Plasma --1 hour post 50 g glucose PO [facility] Work Phone: Hepatitis B surface antigen measurement [facility] Work Phone: Hepatitis C antibody measurement [facility] Work Phone: HIV 1+2 Ab+HIV1 p24 Ag [Presence] in Serum or Plasma by Immunoassay [facility] Work Phone: Measurement of gluco se 2 hours after glucose challenge for glucose tolerance test [facility] Measurement of gluco se 2 hours after glucose challenge for glucose tolerance test [facility] Neisseria gonorrhoea e rRNA [Presence] in Unspecified specimen by JADYN with probe detection [facility] Work Phone: Path report.final Dx Spec [facility] Work Phone: Patient Education [facility] Work Phone: Patient referral [facility] Work Phone: PCR test for Chlamyd ia trachomatis [facility] Work Phone: Rubella IgG measurement [facility] Work Phone: Serologic test for syphilis [facility] Streptococcus agalac tiae [Presence] in Unspecified specimen by Organism specific culture [facility] T4 free measurement [facility] Thyroid stimulating hormone measurement [facility] Treponema sp Ab [Pre sence] in Serum [facility] Work Phone: Ultrasound scan for growth [facility] Ultrasound scan for growth [facility] Urine culture [facility] Immunizations Immunization Date Immunization Notes Care Provider Theo hu 09-07-2019 tetanus toxoid, redu devin diphtheria toxoid, and acellular pertussis vaccine, adsorbed Dr. Beverley Moncada Work Phone: [facility] 01-22-2019 influenza virus vaccine, live, attenuated, for intranasal use LAURA PEREZ [facility] 12-08-2018 influenza virus vaccine, unspecified formulation Uzair Cabrera MD Work Phone: [facility] Payers Date Payer Category Payer Self-pay [id number] 2022 Unknown 2022 Unknown [id number] 2022 Medicaid [id number] 1993 Unknown [id number] 1993 Unknown [id number] 1993 Unknown [id number] 1993 Unknown [id number] 1993 Unknown [id number] 1993 Unknown [id number] 1993 Unknown [id number] 1993 Unknown [id number] 1993 Unknown [id number] 1993 Unknown [id number] 1993 Unknown [id number] 1993 Unknown [id number] 1995 Unknown [id number] 1961 Unknown [id number] Unknown ANTHEM [id number] Unknown ANTHEM SECONDARY [id number] Unknown [facility] 2 [id number] Unknown [id number] 840.1.852626.3.579.2.462 Unknown [id number] .0.1.439972.3.579.2.462 Unknown [id number] .840.1.476468.3.579.2.462 Unknown [id number] 05.09.830.1.401153.3.579.2.462 Unknown [id number] 840.1.223072.3.579.2.462 Unknown [id number] 05.09.830.1.007415.3.579.2.462 Unknown [id number] .0.1.103004.3.579.2.462 Unknown [id number] 05.09.830.1.143311.3.579.2.462 Unknown [id number] .840.1.257890.3.579.2.462 Unknown [id number] 2.840.1.509068.3.579.2.462 Unknown [id number] 2.840.1.785416.3.579.2.462 Unknown [id number] 2.16.840.1.658891.3.579.2.462 Unknown [id number] 2.16.840.1.846503.3.579.2.462 Unknown [id number] 2.16.840.1.631554.3.579.2.462 Unknown [id number] 2.16.840.1.283439.3.579.2.462 Unknown [id number] 2.16.840.1.569032.3.579.2.462 Unknown [id number] 2.16.840.1.712224.3.579.2.462 Unknown [id number] 2.16.840.1.418506.3.579.2.462 Unknown [id number] 2.16.840.1.947020.3.579.2.462 Unknown [id number] 2.16.840.1.756679.3.579.2.462 Unknown [id number] 2.16.840.1.395855.3.579.2.462 Unknown [id number] 2.16.840.1.653041.3.579.2.462 Unknown [id number] 2.16.840.1.347064.3.579.2.462 Social History Date Type Detail Facility Start: 10-13-2023 End: 03-10-2024 Former smoker Former smoker [facility] Start: 12-06-2021 End: 07-30-2022 Tobacco smoking status NHIS Unknown if ever smoked [facility] Start: 1995 Sex Assigned At Female [facility] Start: 08-27-2022 End: 10-01-2022 Tobacco smoking status Ex-smoker (finding) [facility] Tobacco smoking status Never [facility] Start: 10-13-2023 End: 03-10-2024 Sex Assigned At Female [facility] Start: 10-10-2023 End: 06-21-2024 Tobacco smoking status NHIS Never smoked tobacco [facility] Start: 10-10-2023 Tobacco use and exposure Smokeless tobacco non-user [facility] Start: 10-10-2023 End: 03-10-2024 Alcoholic beverage intake Ex-drinker (finding) [employer] Has the [employer], [employer], [employer], or water company threatened to shut off services in your home in past 12Mo No [facility] (I/We) worried wheth er (my/our) food would run out before (I/we) got money to buy more. Never true [facility] Start: 1995 Sex assigned at Not on file A [facility] Start: 12-30-2023 [facility] Start: 06-22-2024 End: 07-06-2024 Sex Female (finding) [facility] Goals Date Patient Goal Desired Activity /State Functional Status Date Assessment Result Facility 09-18-2022 Functional Status N/A [facility] [place] 08-27-2022 Functional Status Telehealth Patient [facility] [place] Clinical Notes 12-06-2021 to 08-30-2024 Note Date & Type Note Facility 08-30-2024 Radiology Diagnostic study note [facility] [address] [place] [address] OB Limited With Biometrics MR#: [id number] Acct: [id number] Name: ANAI WOO Rep #: [id number] : 1995 F 29 From: Gustavo Thapa MD PCP: Status: REG CLI Study:OB Limited With Biometrics Date of Exam : 08/26/24 Exam# [id number] Ordering Dr: Nenita Lucas MD PROCEDURE: OB LIMITED WITH BIOMETRICS 08/26/2024 REASON FOR EXAM: GROWTH TECHNIQUE: High resolution obstetric ultrasound performed using a 2D transducer. Standard views obtained, including biometry, anatomy survey, and Doppler studies. COMPARISON: Prior study dated July 27, 2024. FINDINGS Number: 1 Position: Vertex Placental Position: Anterior and not low-lying. Placental Abnormalities: No evidence of previa. DIMENSIONS: Biparietal Diameter: 9.5 cm: 38 weeks and 6 days: 98 percentile/ Head Circumference: 33.6 cm: 38 weeks and 3 days: 73rd percentile/ Abdominal Circumference: 34.6 cm: 38 weeks and 3 days: 97 percentile/ Femur Length: 7 cm: 35 weeks and 5 days: 30 percentile/ ESTIMATED WEIGHT: 3315 g plus/-505 g ESTIMATED WEIGHT PERCENTILE (24+ weeks): 92 ESTIMATED GESTATIONAL AGE: Baseline: 36 weeks and 2 days By Ultrasound: 37 weeks and 6 days ESTIMATED DATE OF DELIVERY: Baseline: September 21, 2024 By Ultrasound: September 10, 2024 BIOPHYSICAL ASSESSMENT: Amniotic Fluid Volume: 4.8 cm Amniotic Fluid Index: 13.2 (8-24 cm normal range) Cardiac Motion: 136 beats per minute (average) Trunk and Limb Motion: Present. MATERNAL ANATOMY: Adnexa: Neither maternal ovary is successfully identified. US/OB Limited With Biometrics IMPRESSION: Single live intrauterine gestation with a mean gestational age of 37 weeks and 6days. The measurements obtained today fall with the normal expected range. Reading Location: [place] [address] CC: LAURA PEREZ; Dr. Nenita Wells MD ~ Credit Risk Management Director: Signed [facility] 08-29-2024 Radiology Diagnostic study note [facility] [address] [place] [id number] Biophysical Prof W/O Non Stres MR#: [id number] Acct: [id number] Name: ANAI WOO Rep #: [id number] : 1995 F 29 From: Pet er Peer DO PCP: Status: REG CLI Study:Biophysical Prof W/O Non Stres Date of Exam: 08/26/24 Exam# [id number] Ordering Dr: Tenisha Reyna CNM PROCEDURE: BIOPHYSICAL PROF W/O NON STRESS 08/26/2024 REASON FOR EXAM: OBESITY DURING TECHNIQUE: High resolution obstetric ultrasound performed using a 2D transducer. Standard views obtained, including biometry, anatomy survey, and Doppler studies. FINDINGS Number: Immediate prior exam was biophysical profile score cm from July Position: Cephalic Placental Position: Anterior. Not low-lying Placental Abnormalities: None. Placenta is grade 1. DIMENSIONS: Biparietal Diameter: 9.5/38 weeks, 6 days Head Circumference: 33.6 cm/38 weeks 3 days Abdominal Circumference: 34.6 cm/30 weeks, 3 days Femur Length: 7.0 cm/35 weeks 5 days ESTIMATED WEIGHT: 3365 g plus or minus 502 g ESTIMATED WEIGHT PERCENTILE (24+ weeks): 90% ESTIMATED GESTATIONAL AGE: Baseline: 37 weeks, 6 days By Ultrasound: 37 weeks 6 days ESTIMATED DATE OF DELIVERY: Baseline: 619 2024 By Ultrasound: 619 2024 BIOPHYSICAL ASSESSMENT: Amniotic Fluid Volume: Within normal limits Amniotic Fluid Index: 13.2 cm (8-24 cm normal range) Cardiac Motion: 136 (average) Trunk and Limb Motion: Present. MATERNAL ANATOMY: Adnexa: Neither maternal ovary is successfully identified. Cervical Length (if measured): US/Biophysical Prof W/O Non Stres IMPRESSION: Biophysical profile score is 8/8. age by current and prior ultrasound: 37 weeks, 6 days. Estimated due dateby current prior ultrasound: 09/11/2019 [facility] CC: DEAN Sánchez Credit Risk Management Director: Signed [facility] 08-11-2024 Radiology Diagnostic study note [facility] [address] [place] [id number] Biophysical Prof W/O Non Stres MR#: [id number] Acct: [id number] Name: ANAI WOO Rep #: [id number] : 1995 F 29 From: Gustavo Thapa MD PCP: Care Physician,No Primary Status: REG CLI Study:Biophysical Prof W/O Non Stres Date of Exam: 08/11/24 Exam# [id number] Ordering Dr: Tenisha Reyna CNM PROCEDURE: BIOPHYSICAL [...] IMPRESSION: biophysical profile score: 6/8. Reading Location: [facility] CC: DEAN Reyna; No Primary Care Physician ~ Credit Risk Management Director: Signed [facility] 07-28-2024 Radiology Diagnostic study note [facility] [address] [place] [address] OB Limited With Biometrics MR#: [id number] Acct: [id number] Name: ANAI WOO Rep #: [id number] : 1995 F 29 From: Patricia Schreiber MD PCP: Care Physician,No Primary Status: REG CLI Study:OB Limited With Biometrics Date of Exam : 07/27/24 Exam# [id number] Ordering Dr: Nenita Lucas MD PROCEDURE: OB [...] represent a possible placental Pop. Reading Location: [id number] CC: Dr. Nenita Wells MD; No Primary Care Physician ~ Credit Risk Management Director: Signed [facility] 06-21-2024 Radiology Diagnostic study note [facility] [address], [place] [id number] OB Limited With Biometrics MR#: [id number] Acct: [id number] Name: ANAI WOO Rep #: [id number] : 1995 F 29 From: Emily matt Afuweunice DO PCP: Care Physician,No Primary Status: REG CLI Study:OB Limited With Biometrics Date of Exam : 06/21/24 Exam# [id number] Ordering Dr: Tenisha Reyna CNM PROCEDURE: OB [...] DEAN Reyna; No Primary Care Physician ~ Credit Risk Management Director: Signed [facility] 06-16-2024 Evaluation note Diagnosis Onset Date Resolution Bipolar disorder acute June 162024 2:10pm Depression [...] 8:40pm Rubella non-immune status, antepartum acute June 21 2 025 8:40pm Supervision of high-risk acute [...] Rubella non-immune status, antepartum acute July 13, 2 025 2:52pm Supervision of high-risk acute July 13, 2024 2:52pm Thyromegaly acute July 13, 2 025 2:52pm Bipolar disorder acute July 27, [...] Maternal anesthesia complication acute August 11, 2024 10:05am Obesity affecting acute August 11, 2024 10:05am acute August 11, 2024 10:05am Rubella non-immune status, antepartum acute August 11 10:05am Supervision of high-risk acute August 11, 2024 10:05am Thyromegaly acute August 11 10:05am Abnormal test acute M 2024 11:46am Bipolar disorder acute July 11:46am Depression acute August 11, 2024 11:46am History of herpes genitalis in father of unborn child acute August 11, 2024 11:46am History of gestational hypertension acute July 11:46am Maternal anesthesia complication acute August 11, 2024 11:46am Obesity affecting acute August 11, 2024 11:46am acute August 11, 2024 11:46am Rubella non-immune status, antepartum acute August 11 11:46am Supervision of high-risk acute August 11, 2024 11:46am Thyromegaly acute August 11 11:46am Abnormal test acute J 2024 12:56pm Bipolar disorder acute August 12:56pm Contraception management acute August 26, 2024 12:56pm Depression acute August 26, 2024 12:56pm History of herpes genitalis in father of unborn child acute August 26, 2024 12:56pm History of gestational hypertension acute August 12:56pm Maternal anesthesia complication acute August 26, 2024 12:56pm Obesity affecting acute August 26, 2024 12:56pm acute August 26, 2024 12:56pm Rubella non-immune status, antepartum acute August 26 12:56pm Supervision of high-risk acute August 26, 2024 12:56pm Thyromegaly acute August 26 12:56pm [place] [employer] Work Phone: 1(449) 318-414903-26-2025 Evaluation note* Diagnosis Onset Date Resolution Status Admit Date Bipolar disorder acute June 162024 2:10pm Depression [...] 13, 2024 2:52pm Thyromegaly acute July 13 2:52pm Bipolar disorder acute July 27, 2024 [...] 1 0:05am Thyromegaly acute August 11 10:05am Abnormal test acute 2024 11:46am Bipolar disorder acute July 11:46am Depression acute August 11, 2024 11:46am History of herpes genitalis in father of unborn child acute August 11, 2024 11:46am History of gestational hypertension acute July 11:46am Maternal anesthesia complication acute August 11, 2024 1 1:46am Obesity affecting acute August 11, 2024 11:46am acute August 11, 2024 11:46am Rubella non-immune status, antepartum acute August 11, 2024 1 1:46am Supervision of high-risk acute August 11, 2024 1 1:46am Thyromegaly acute August 11 11:46am Abnormal test acute 2024 12:56pm Bipolar disorder acute August 12:56pm Contraception management acute August 26, 2024 12:56pm Depression acute August 26, 2024 12:56pm History of herpes genitalis in father of unborn child acute August 26, 2024 12:56pm History of gestational hypertension acute August 12:56pm Maternal anesthesia complication acute August 26, 2024 1 2:56pm Obesity affecting acute August 26, 2024 12:56pm acute August 26, 2024 12:56pm Rubella non-immune status, antepartum acute August 26, 2024 1 2:56pm Supervision of high-risk acute August 26, 2024 1 2:56pm Thyromegaly acute August 26 12:56pm Bipolar disorder acute August 11:21am Contraception management acute September 02, 2024 11:21am Depression acute September 02 11:21am History of herpes genitalis in father of unborn child acute August 11:21am History of gestational hypertension acute September 022024 11:21am Maternal anesthesia complication acute September 02, 2024 11:21am Obesity affecting acute September 02, 2024 11:21am acute September 02 11:21am Rubella non-immune status, antepartum acute September 02, 2024 11:21am Supervision of high-risk acute September 02, 2024 11:21am Thyromegaly acute September 02 11:21am [facility] Work Phone: 1(881) 704-154501-29-2025 Evaluation note* Diagnosis Onset Date Resolution Status [...] 13, 2024 2:52pm Thyromegaly acute July 13, 2:52pm Bipolar disorder acute July 27, 2024 [...] 32pm Thyromegaly acute July 27, 2024 1:32pm [facility] Work Phone: 1(291) 368-887601-29-2025 Evaluation note* Diagnosis Onset Date Resolution Status [...] 13, 2024 2:52pm Thyromegaly acute July 13, 2:52pm Bipolar disorder acute July 27, 2024 [...] 1 0:05am Thyromegaly acute August 11 10:05am [facility] Work Phone: 1(605) 550-418501-03-2025 Evaluation note* Diagnosis Onset Date Resolution Status [...] 16, 2024 2:10pm Thyromegaly acute June 16, 2:10pm [facility] Work Phone: 1(140) 537-854201-03-2025 Evaluation note* Diagnosis Onset Date Resolution Status [...] 21, 2 025 8:40pm Vaginal bleeding during acute June [...] bleeding during acute June 30, 2024 2:24pm [facility] Work Phone: 1(539) 485-985412-18-2024 History of Present illness Narrative* Lenard Santiago, ANU-RECRUITMENT SPECIALIST - 03/10/2024 4:55 PM EST HPI Anai Woo female 1995 presents to the [facility] with Chief Complaint Patient [...] Resource Strain: Low Risk (02/24/2024) Received from [facility] Overall Financial Resource Strain (CARDIA) Difficulty of Paying Living Expenses: Not hard at all Food Insecurity: No Food Insecurity (02/24/2024) Received from [facility] Hunger Vital Sign Worried About Running Out of Food in the Last Year: Never true Ran Out of Food in the Last Year: Never true Transportation Needs: Unknown (02/24/2024) Received from [facility] PRAPARE - Transportation Lack of Transportation (Medical): Not on file Lack of Transportation (Non-Medical): No Physical Activity: Inactive (01/20/2023) Received from [facility] Exercise Vital Sign Days of Exercise [...] Anai Woo female 1995 presents to the [facility] with Chief Complaint Patient [...] improve then worsened again. She has tried atjn-snf-xexjgch medications. No recorded fevers. She has body [...] Resource Strain: Low Risk (02/24/2024) Received from [facility] Overall Financial Resource Strain (CARDIA) Difficulty of Paying Living Expenses: Not hard at all Food Insecurity: No Food Insecurity (02/24/2024) Received from [facility] Hunger Vital Sign Worried About Running Out of Food in the Last Year: Never true Ran Out of Food in the Last Year: Never true Transportation Needs: Unknown (02/24/2024) Received from [facility] PRAPARE - Transportation Lack of Transportation (Medical): Not on file Lack of Transportation (Non-Medical): No Physical Activity: Inactive (01/20/2023) Received from [facility] Exercise Vital Sign Days of Exercise [...] days for recheck. Discussed supportive home care, cijh-xxd-knxkbku medications. Work note provided. If symptoms worsen patient was advised to follow up in our office, primary care provider or the Emergency Dept. Benefits, Risks, Contraindications, and Complications of recommended treatments were explained. The patient understands and agrees to proceed with plan. PHILIP Wilkes 03/10/2024 [facility] History of Present illness Narrative* Elsa [...] preference. Unable to reach via cell phone. ANNEALING FURNACE OPERATOR asked patient noelle no preference. Referral information emailed to Kadi at [facility]. Will update RT when able to release [employer] tank. * AUDREY Jordan - 10/14/2023 12:29 PM EDT ANNEALING FURNACE OPERATOR updated by respiratory that Anai is going to need 2L o2 at home for discharge. ANNEALING FURNACE OPERATOR updated covering Nurse Navigator Mitra on O2 [...] - 10/13/2023 11:47 AM EDT Chart reviewed. AUDREY met with Anai in the room she [...] Feels safe at home. Discharge plan home ANNEALING FURNACE OPERATOR to follow for new needs 10/13/23 [id number] Information Source Information Source patient Employment/Financial Employed? 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 No * Anoop Tee RPh, PharmD - 10/13/2023 9:45 AM EDT Pharmacy - IV to PO Conversion Documentation NAME: Anai Webber Room[facility]Bed: [facility] Previous Medication Order: levaquin 750mg IV every 24 hours New Medication Order: levaquin 750mg PO every 24 hours The above medication was converted from intravenous to oral administration in accordance with the [facility] IV to PO Conversion Policy. Orders [...] continue to follow. Signed: Anoop Tee RPh,Patricia, [facility] Phone: [phone] Date/Time: 10/13/2023 9:44 AM * Shanon Jolly APRN-LORENA - 10/13/2023 9:15 AM EDT DAILY PROGRESS NOTE Anai Webber 1995 Date of Evaluation: 10/13/23 9:15 AM [facility] LOS: 0 days SUBJECTIVE: Patient seen and [...] 91%. O2 Sat (%): 91 % (10/12 07) O2 Device: nasal cannula (10/12 814) Intake and Output: No intake or output [...] the MDM for this encounter. * Marilee Radha Dallas, DO - 10/12/2023 12:41 PM EDT [...] consolidation lung bases right greater than left. [employer] to be inflammatory. 3. Small right pleural [...] Code Status Full Code documented in [facility]Prem[facility] Nurse Note* Nursing Notes - Susi Rain RN - 10/14/2023 2:12 PM EDT Discharge instructions and education reviewed with pt, education provided for dx and new medications, printed education given, denies any questions, IV and tele removed [facility]07-23-2024 Miscellaneous Notes* Nursing Notes - Susi [...] needs. * Assessment & Plan Note - Mirela Allen APRN-LORENA - 10/11/2023 11:42 AM EDT Associated Problem(s): [...] Call light within reach. documented in this [facility]07-23-2024 Hospital Discharge instructions* Discharge Instr - Activity* [...] * Labetalol Oral Tablet (LABETALOL - ORAL) (Citizen Of [place]) * prednisone (Citizen [place]) * Pneumonia (Citizen [place]) documented in this [facility]Prem[facility] Nurse Note* Nursing Notes - Machelle Garrett RN - 10/14/2023 6:10 AM EDT Up to use bathroom independently. No change in assessment. Resting quietly. Denies needs. [facility]07-22-[facility] Nurse Note* Nursing Notes - Machelle Garrett RN - 10/13/2023 11:18 PM EDT Sleeping in bed. Assessment done as charted without changes. Elijah Alfonso NP notified & new order received. PRN Labetalol given. Pt denies needs. T [facility]07-22-[facility] Nurse Note* Nursing Notes - Machelle Garrett RN - 10/13/2023 8:15 PM EDT Awake, sitting up in chair playing game on her laptop. Assessment done as charted. Denies pain or questions at this time. [facility]07-22-2024 Nurse Note* Nursing Notes - Stacy Daniel RN - 10/13/2023 4:26 AM EDT Patient resting in bed. Assessment unchanged from prior unless otherwise noted in flowsheets. Patient denies any needs. Call light within reach. [facility]07-22-20[facility] Nurse Note* Nursing Notes - Stacy Daniel RN - 10/13/2023 12:27 AM EDT Patient resting in bed. Assessment unchanged from prior unless otherwise noted in flowsheets. Patient denies any needs. Call light within reach. T [facility]07-21-2024 Nurse Note* Nursing Notes - Calli Meyer RN - 10/12/2023 4:00 PM EDT Patient assessment unchanged from previous assessment. Any exceptions noted in flowsheets. Call light and personal items within reach. Patient denies any further needs. [facility]07-21-2024 Nurse Note* Nursing Notes - Calli Meyer RN - 10/12/2023 12:00 PM EDT Patient assessment unchanged from previous assessment. Any exceptions noted in flowsheets. Call light and personal items within reach. Patient denies any further needs. [facility]07-21-2024 Nurse Note* Nursing Notes - Stacy Daniel RN - 10/12/2023 4:24 AM EDT Patient resting in bed. Assessment unchanged from prior unless otherwise noted in flowsheets. Patient denies any needs. Call light within reach. [facility]07-21-2024 Nurse Note* Nursing Notes - Stacy Daniel RN - 10/12/2023 12:37 AM EDT Patient resting in bed. Assessment unchanged from prior unless otherwise noted in flowsheets. Patient denies any needs. Call light within reach. [facility]07-20-2024 Nurse Note* Nursing Notes - Calli Meyer RN - 10/11/2023 4:00 PM EDT Patient assessment unchanged from previous assessment. Any exceptions noted in flowsheets. Call light and personal items within reach. Patient denies any further needs. [facility]07-20-2024 Nurse Note* Nursing Notes - Calli Meyer RN - 10/11/2023 12:00 PM EDT Patient assessment unchanged from previous assessment. Any exceptions noted in flowsheets. Call light and personal items within reach. Patient denies any further needs. [facility]07-20-2024 Evaluation + Plan note* Assessment & Plan Note - PHILIP Acosta - 10/11/2023 11:42 AM EDTAssociated Problem(s): Febrile Supportive care [facility]07-20-2024 Evaluation + Plan note* Assessment & Plan Note - PHILIP Acosta - 10/11/2023 11:42 AM EDTAssociated Problem(s): Acute hypoxic respiratory failure (Resolved 10/12/2023) Requiring 2 L nasal cannula for adequate oxygenation Continue to wean as tolerated Empiric antibiotics, IV steroids, and routine aerosols [facility]07-20-2024 Evaluation + Plan note* Assessment & Plan Note - PHILIP Acosta - 10/11/2023 11:42 AM EDTAssociated Problem(s): Pneumonia Empiric antibiotics Routine aerosols Supplemental oxygen for pulse ox greater than 92% [facility]07-20-2024 History and physical note* Mirela Allen, TIMBER DEADENER-RECRUITMENT SPECIALIST - 10/11/2023 8:46 AM EDT History and Physical Examination 10/10/2023 8:52 PM Chief Complaint Patient presents with Shortness of Breath Generalized Body Aches History of Present Illness: This is a 28-year-old female who presented in the emergency department for shortness of breath and generalized body aches this started as back pain last Friday in his continually gotten worse. [place] have a past medical history of asthma [...] 1 capsule by mouth daily. 10/09/2023 at 2099 Not on File Review of Systems: Ten [...] Use Authorization (EUA) for the qualitative detection [id number] nucleic acid. INFLUENZA A 10/10/2023 NEGATIVE INFLUENZA [...] Supportive care Code Status: Full Code Mirela Allne CNP completing HPI for Dr. Dallas 11 minutes spent of RECRUITMENT SPECIALIST time including assessment, planning, and discussion with nursing staff and patient Please note Portions of this note utilized [employer] dictation software, please excuse any typographical or [...] the MDM for this encounter. OBS ADMIT. [facility]07-20-2024 History and physical note* Mirela Allen, TIMBER DEADENER-RECRUITMENT SPECIALIST - 10/11/2023 8:46 AM EDT History and [...] Use Authorization (EUA) for the qualitative detection [id number] nucleic acid. INFLUENZA A 10/10/2023 NEGATIVE INFLUENZA [...] for Dr. Dallas 11 minutes spent of RECRUITMENT SPECIALIST time including assessment, planning, and discussion with nursing staff and patient Please note Portions of this note utilized [employer] dictation software, please excuse any typographical or [...] this encounter. OBS ADMIT. [facility] Nurse Note* Nursing Notes - Stacy Daniel RN - 10/11/2023 4:07 AM EDT Patient resting in bed. Assessment unchanged from prior unless otherwise noted in flowsheets. Patient denies any needs. Call light within reach. [facility]07-19-2024 Emergency department Note* Lorena Marcial RN - 10/10/2023 10:56 PM EDT Report sheet tubed up to med surg at this time. Pt also prefers to keep shorts on at this time for comfort. [facility]07-19-2024 Emergency department Note* Lorena Marcial RN - 10/10/2023 10:56 PM EDT Report sheet tubed up to med surg at this time. Pt also prefers to keep shorts on at this time for comfort. * Reba Vleasco RN - 10/10/2023 10:32 PM EDT Room [...] Resource Strain: Low Risk (02/23/2023) Received from [facility] Overall Financial Resource Strain (CARDIA) Difficulty of Paying Living Expenses: Not very hard Food Insecurity: No Food Insecurity (02/23/2023) Received from [facility] Hunger Vital Sign Worried About Running Out of Food in the Last Year: Never true Ran Out of Food in the Last Year: Never true Transportation Needs: Unknown (02/23/2023) Received from [facility] PRAPARE - Transportation Lack of Transportation (Medical): Not on file Lack of Transportation (Non-Medical): No Physical Activity: Inactive (01/20/2023) Received from [facility] Exercise Vital Sign Days of Exercise per Week: 0 days Minutes of Exercise per Session: 0 min Stress: Not on file Social Connections: Not on file Intimate Partner Violence: Not At Risk (01/20/2023) Received from [facility] Humiliation, Afraid, Rape, and Kick questionnaire Fear of Current or Ex-Partner: No Emotionally Abused: No Physically Abused: No Sexually Abused: No Housing Stability: Unknown (02/23/2023) Received from [facility] Housing Stability Vital Sign Unable to [...] Uzair Cabrera MD 10/10/232224 documented [facility] Emergency department Note* Reba Velasco RN - 10/10/2023 10:32 PM EDT Room assignment 3757. [facility]07-19-2024 Physician Emergency department Note* Uzair Cabrera [...] Resource Strain: Low Risk (02/23/2023) Received from [facility] Overall Financial Resource Strain (CARDIA) Difficulty of Paying Living Expenses: Not very hard Food Insecurity: No Food Insecurity (02/23/2023) Received from [facility] Hunger Vital Sign Worried About Running Out of Food in the Last Year: Never true Ran Out of Food in the Last Year: Never true Transportation Needs: Unknown (02/23/2023) Received from [facility] PRAPARE - Transportation Lack of Transportation (Medical): Not on file Lack of Transportation (Non-Medical): No Physical Activity: Inactive (01/20/2023) [facility] Exercise Vital Sign Days of Exercise per Week: 0 days Minutes of Exercise per Session: 0 min Stress: Not on file Social Connections: Not on file Intimate Partner Violence: Not At Risk (01/20/2023) Received from [facility] Humiliation, Afraid, Rape, and Kick questionnaire Fear of Current or Ex-Partner: No Emotionally Abused: No Physically Abused: No Sexually Abused: No Housing Stability: Unknown (02/23/2023) [facility] Housing Stability Vital Sign Unable to [...] Community-acquired pneumonia Disposition: Admission Uzair Cabrera MD 10/10/23 6297 [address] [facility] Work Phone: 1(592) 672-108107-10-2023 Evaluation + Plan note Future Scheduled Tests Laboratory* TSH With T4fr Reflex 09/30/22 * Urinalysis 09/30/22 * Vitamin D 25 Hydroxy 09/30/22 * CBC w/ Auto Diff 09/30/22 * Comprehensive Metabolic Panel 09/30/22 * Lipid Panel 09/30/[address] [facility]05-26-2023 Hospital Discharge instructions Follow Up Care 08/16/2022 08:24:49 With:LAURA PEREZ CNP Address: [address] [place] [address] [address] [place] [address] When: Unknown [facility] [place] 03-21-2023 Discharge summary Author Tenisha Reyna [facility] June 11, 2022 8:42am Note Date/Time June 11, 2022 8:4 2am [facility] Medical Records Department [address] [place] [address] Instructions for Home/Discharge Instructions 06/11/22 0841 MR#: [id number] Acct: [id number] Name: ANAI WEBBER Rep #:[id number] : 1995 27 From: Tenisha Reyna CNM PCP: Lashaun Physician,No Primary Status :ADM IN Discharge Instructions Diet [...] Attending Provider: Nenita Wells Primary Care Provider: Care Physician,No Primary Instructions Forms: Information Patient Instructions: After [...] CC: No Primary Care Physician ~ Signed [facility] Work Phone: 1(280) 943-681703-21-2023 Progress note Author Tenisha Reyna [facility] June 11, 2022 8:34am Note Date/Time June 11, 2022 8:2 9am [facility] Medical Records Department [address] [place] [address] Progress Note - OBGYN 06/11/22823 MR#: [id number] Acct: [id number] Name: ANAI WEBBER Rep #:[id number] : 1995 27 From: Tenisha Reyna CNM PCP: Care Physician,No Primary Status :ADM IN Location: [place] [address]1 Subjective Subjective Patient doing well without complaints. [...] (1) Vaginal delivery: COMMENT: SM srom girl víctor PLAN: s/p PPD # 2 1. routine post delivery care 2. breast feeding- support given 3. rh positive 4. rubella immune 5. Discharge if indicated (2) Bipolar disorder: COMMENT: taking lamictal and lexapro. Change to zoloft 03/13 PLAN: Stable on zoloft and lamictal. Continue current medications upon D/C 06/11/22 0834 <Electronically signed by Tenisha Reyna CNM> Cosigner Signature (if applicable): CC: ~ Signed [facility] Work Phone: 1(708) 313-645103-20-2023 Progress note Author Fariba Cota [facility] June 10, 2022 7:45am Note Date/Time June 10, 2022 7:4 5am [facility] Medical Records Department [address] [place] [address] Progress Note - OBGYN 06/10/22 0743 MR#: [id number] Acct: [id number] Name: ANAI WEBBER Rep #:[id number] : 1995 27 From: Fariba Cota RESIDENTIAL CARE OFFICER RESIDENTIAL CARE OFFICER-C PCP: Care Physician,No Primary Status :ADM IN Location: [address] Subjective Subjective Patient doing well without complaints. [...] (1) Vaginal delivery: COMMENT: SM srom girl víctor (2) Bipolar disorder: COMMENT: taking lamictal and lexapro. Change to zoloft 03/13 PLAN: Plan s/p PPD # 1 1. routine post delivery care 2. breast feeding- support given 3. rh positive 4. rubella immune 06/10/22 0745 <Electronically signed by Fariba Cota NP RESIDENTIAL CARE OFFICER-C> Cosigner Signature (if applicable): CC: ~ Signed [facility] Work Phone: 1(961) 620-294203-20-[address] Wells [facility] June 09, 2022 10:10pm Note Date/Time June 09, 2022 7:4 3pm [facility] Medical Records Department [address] [facility] [place] [address] Instructions for Home/Discharge Instructions 06/09/221941 MR#: [id number] Acct: [id number] Name: ANAI WEBBER LOPEZ Rep #:[id number] : 1995 27 From: Nenita carbajal MD PCP: Care Physician,No Primary Status :ADM IN Discharge Instructions Diet [...] Attending Provider: Nenita Wells Primary Care Provider: Care Physician,No Primary Discharge Orders/Prescriptions Prescriptions: No Action ondansetron [...] Care Physician,No Primary [Primary Care Provider] - 06/09/222209<Electronically signed by Nenita Wells MD>Nenita Wells MD CC: No Primary Care Physician ~ Signed [facility] Work Phone: 1(352) 157-973303-19-2023 Procedure [facility] 06-09-2022 History and physical note Author Dr. 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 Denies concerns 03/13/22 -?-?-?-?-?-?-?-?-?-?-?-?- 24w 3d 258 lb 6 oz 108/68 Nega tive -?-?-?-?-?-?-?-?-?-?-?-?- Negative 151 -?-?-?-?-?-?-?-?-?-?-?-?- MH-No VB, LOF. G ood FM. Discussed with KARLOS to change to zoloft from lexapro and [...] Supervision of high risk , antepartum: COMMENT: [id number], girl, Víctor HITESH 06/30/22, Jimmy Alvarado (5) : QUALIFIERS: [...] any complications: none I have reviewed the [facility] and made any clinically relevant updates. 06/08/22 4800 <Electronically signed by Nenita Wells MD> Cosigner Signature (if applicable): CC: Dr. Nenita Wells MD; No Primary Care Physician~ Signed [facility] Work Phone: 1([phone]) 539-584509-15-2022 NotePap Smear Specimen AdequacySeptember 2021 4:21pmComment.Satisfactory for evaluation. Endocervical and/or squamous metaplasticcells (endocervical component)are present.[facility] A#[id number] Work Phone: Comment on above:Satisfactory for evaluation. Endocervical and/or squamous metaplasticcells (endocervical component)are present.Evaluation + Plan note No data available for this section [facility] Medicine [place] Evaluation + Plan note Future Appointments Appointment Date:10/01/2022 09:20:00 AM Scheduled Provider:Alexander Starr MD Location:[facility] Appointment Type:FM Open [facility] Evaluation note* Diagnosis Onset Date Resolution Status Bipolar disorder acute Hx of one miscarriage acute Obesity affecting acute acute Seasonal allergies acute Supervision of high risk , antepartum acute [facility] Work Phone: Evaluation note* Diagnosis Onset Date Resolution Status Bipolar disorder acute Hx of one miscarriage acute Obesity affecting acute acute Seasonal allergies acute Supervision of high risk , antepartum acute Bipolar disorder acute Herpes simplex antibody positive acute Hx of one miscarriage acute Obesity affecting acute acute Seasonal allergies acute Supervision of high risk , antepartum acute [facility] Work Phone: Evaluation note* Diagnosis Onset Date [...] Supervision of high risk , antepartum acute [facility] Work Phone: Evaluation note* Diagnosis Onset Date [...] Supervision of high risk , antepartum resolved [facility] Work Phone: Evaluation note* Diagnosis Onset Date [...] lactating mother noneactive Thyromegaly acute Vaginal discharge [facility] Work Phone: Evaluation note* Diagnosis Pneumonia- Primary [...] Pneumonia, organism unspecified [facility] encounter [facility] Diagnosis Pneumonia- Primary Pneumonia, organism [...] Cough, unspecified type documented in this encounter [facility] No data available for this section [facility] Instructions* Attachments The following attachments cannot be sent through Care Everywhere. * Pneumonia (Citizen [place]) documented in this [facility]Prem[facility] note No data available for this section [facility] Reason for referral (narrative)* Consultation (Routine) - New Request Specialty Diagnoses / Procedures Referred By Vicki gan Referred To Contact Pulmonary Disease Diagnoses Pneumonia of both lungs due to infectious organism, unspecified part of lung Shanon Jolly, [facility]BER [facility] [address] [place] [address] Referral ID Status Reason Start Date Expiration Date V isits Requested Visits Authorized [id number] New Request 10/14/2023 11/07/2024 1 1 * MRI/CAT Scan (Routine) - New Request Specialty Diagnoses / Procedures Referred By Contjorge a t Referred To Contact Diagnoses Pneumonia of both lungs due to infectious organism, unspecified part of lung Procedures CT CHEST WITHOUT CONTRAST CHG DIAGNOSTIC COMPUTED TOMOGRAPHY THORAX W/O CNTRST Mirela Allen, [facility] [address] [place] [address] Referral ID Status Reason Start Date Expiration Date V isits Requested Visits Authorized [id number] New Request 10/12/2023 11/05/2024 1 1 * Unlisted Procedure Code (Routine) - New Request Specialty Diagnoses / Procedures Referred By Contac t Referred To Contact Procedures INPATIENT ADMISSION NOTIFICATION Marilee Dallas, DO [address] [place] [address] Referral ID Status Reason Start Date Expiration Date V isits Requested Visits Authorized [id number] New Request 10/10/2023 11/03/2024 1 1 [facility] for referral (narrative)No reason for referral information [facility]WThe [facility] Work Phone: Summary Purpose Family History Unknown Family Member Name Dates Details Family history [...] Unknown grandfather Cardiac disease Unknown Advance Directives Advance Directive Response Recorded Date/ Time Living Will No September 07, 2019 9:38am Power of Gum Sprayer No September 06 9:38am Advance Directive Response Recorded Date/ Time Living Will No April 22 12:33pm Power of Gum Sprayer No April 22, 2022 12:33pm Advance Directive Response Recorded Date/ Time Living Will No June 08, 2022 11:28pm Power of Gum Sprayer No June 08 11:28pm Advance Directive Response Recorded Date/ Time Living Will No June 12, 2022 11:10am Power of Gum Sprayer No June 12 11:10am Date Activated Date [...] 26, 2024 1: 05pm Supervision of high-risk Mar 2024 1:05pm Thyromegaly March 26, 2024 1: [...] 2:1 0pm Rubella non-immune status, antepartum [facility] 2024 2:10pm Supervision of high-risk June 16, [...] 26, 2024 1: 05pm Supervision of high-risk Mar 2024 1:05pm Thyromegaly March 26, 2024 1: [...] Ja nuary 2024 1:35pm Supervision of high-risk Mac ry 2024 1:35pm Thyromegaly April 21, 2024 [...] 2:1 0pm Rubella non-immune status, antepartum [facility] 2024 2:10pm Supervision of high-risk June 16, [...] 8:4 0pm Rubella non-immune status, antepartum [facility] 2024 8:40pm Supervision of high-risk June 21, [...] June 302024 2:24pm Obesity affecting June 30, 2 025 2:24pm June 30, 2024 2:24 pm Rubella [...] 1 :35pm Rubella non-immune status, antepartum [place] 2024 1:35pm Supervision of high-risk Janua 2024 1:35pm Thyromegaly April 21, 2024 1 [...] 2:1 0pm Rubella non-immune status, antepartum [facility] 2024 2:10pm Supervision of high-risk June 16, [...] 8:4 0pm Rubella non-immune status, antepartum [facility] 2024 8:40pm Supervision of high-risk June 21, [...] 1 :35pm Rubella non-immune status, antepartum Ja [facility] 2024 1:35pm Supervision of high-risk Janua 2024 1:35pm Thyromegaly April 21, 2024 1 [...] 2:1 0pm Rubella non-immune status, antepartum [facility] 2024 2:10pm Supervision of high-risk June 16, [...] 8:4 0pm Rubella non-immune status, antepartum [facility] 2024 8:40pm Supervision of high-risk June 21, [...] /EXTENDED MONITO RING August 11, 2024 11:46am Chief Complaint Admit Date 26 wk ob *do not shorten June [...] /EXTENDED MONITO RING August 11, 2024 11:46am OBESITY DURING /EXTENDED MONITO RING August 19, 2024 12:20am OBESITY DURING August 19, 2024 12:45pm 36 WEEKS August 26, 2024 12:11 pm 36wk ob August 26, 2024 12:56 pm Reason for Visit Admit Date Bipolar disorder June 16, 2024 2:1 0pm Depression June 16, 2024 2:1 0pm History of herpes genitalis in father of unborn child June 16, 2024 2:10pm History of gestational hypert ension June 16, 2024 2:10pm Maternal anesthesia complication May 232024 2:10pm Obesity affecting June 16, 2024 2:10pm June 16, 2024 2:1 0pm Rubella non-immune status, antepartum [facility] 2024 2:10pm Supervision of high-risk June 16, [...] 8:4 0pm Rubella non-immune status, antepartum [facility] 2024 8:40pm Supervision of high-risk June 21, [...] 10:05am Thyromegaly August 11, 2024 10:05 am Abnormal test August 11, 2024 1 1:46am Bipolar disorder August 11, 2024 11:46 am Depression August 11, 2024 11:46 am History of herpes genitalis in father of unborn child August 11, 2024 11:46am History of gestational hypert ension August 11, 2024 11:46am Maternal anesthesia complication July 11:46am Obesity affecting August 11 11:46am August 11, 2024 11:46 am Rubella non-immune status, antepartum Ma y 2024 11:46am Supervision of high-risk July 232024 11:46am Thyromegaly August 11, 2024 11:46 am Abnormal test August 26, 2024 1 2:56pm Bipolar disorder August 26, 2024 12:56 pm Contraception management August 26, 2024 12:56pm Depression August 26, 2024 12:56 pm History of herpes genitalis in father of unborn child August 26, 2024 12:56pm History of gestational hypert ension August 26, 2024 12:56pm Maternal anesthesia complication August 12:56pm Obesity affecting August 26 12:56pm August 26, 2024 12:56 pm Rubella non-immune status, antepartum Ju 2024 12:56pm Supervision of high-risk August 26, 2024 12:56pm Thyromegaly August 26, 2024 12:56 pm Chief Complaint Admit Date 26 wk ob *do not shorten June [...] /EXTENDED MONITO RING August 11, 2024 11:46am OBESITY DURING /EXTENDED MONITO RING August 19, 2024 12:20am OBESITY DURING August 19, 2024 12:45pm 36 WEEKS August 26, 2024 12:11 pm 36wk ob August 26, 2024 12:56 pm 37 wk ob September 02, 2024 11:2 1am Reason for Visit Admit Date Bipolar disorder June 16, 2024 2:1 0pm Depression June 16, 2024 2:1 0pm History of herpes genitalis in father of unborn child June 16, 2024 2:10pm History of gestational hypert ension June 16, 2024 2:10pm Maternal anesthesia complication May 232024 2:10pm Obesity affecting June 16, 2024 2:10pm June 16, 2024 2:1 0pm Rubella non-immune status, antepartum [facility] 2024 2:10pm Supervision of high-risk June 16, [...] 8:4 0pm Rubella non-immune status, antepartum [facility] 2024 8:40pm Supervision of high-risk June 21, [...] June 302024 2:24pm Obesity affecting June 30, 2 025 2:24pm June 30, 2024 2:24 pm Rubella [...] 10:05am Thyromegaly August 11, 2024 10:05 am Abnormal test August 11, 2024 1 1:46am Bipolar disorder August 11, 2024 11:46 am Depression August 11, 2024 11:46 am History of herpes genitalis in father of unborn child August 11, 2024 11:46am History of gestational hypert ension August 11, 2024 11:46am Maternal anesthesia complication July 11:46am Obesity affecting August 11 11:46am August 11, 2024 11:46 am Rubella non-immune status, antepartum Ma y 2024 11:46am Supervision of high-risk July 232024 11:46am Thyromegaly August 11, 2024 11:46 am Abnormal test August 26, 2024 1 2:56pm Bipolar disorder August 26, 2024 12:56 pm Contraception management August 26, 2024 12:56pm Depression August 26, 2024 12:56 pm History of herpes genitalis in father of unborn child August 26, 2024 12:56pm History of gestational hypert ension August 26, 2024 12:56pm Maternal anesthesia complication August 12:56pm Obesity affecting August 26 12:56pm August 26, 2024 12:56 pm Rubella non-immune status, antepartum Ju ne 2024 12:56pm Supervision of high-risk August 26, 2024 12:56pm Thyromegaly August 26, 2024 12:56 pm Bipolar disorder September 02, 2024 11:2 1am Contraception management September 02, 2024 11:21am Depression September 02, 2024 11:2 1am History of herpes genitalis in father of unborn child September 02, 2024 11:21am History of gestational hypert ension September 02, 2024 11:21am Maternal anesthesia complication September 022024 11:21am Obesity affecting September 02, 025 11:21am September 02, 2024 11:2 1am Rubella non-immune status, antepartum Ju ne 2024 11:21am Supervision of high-risk September 02, 2024 11:21am Thyromegaly September 02, 2024 11:2 1am Additional Source Comments INFORMATION SOURCE (unrecogn ized section and content) DATE CREATED AUTHOR 10/15/2017 [facility] [place] [place] DATE CREATED AUTHOR AUTHOR'S ORGANIZ ATION 12/26/2018 [facility] DATE CREATED AUTHOR AUTHOR'S ORGANIZ ATION 11/22/2021 [employer] DATE CREATED AUTHOR AUTHOR'S ORGANIZ ATION 11/22/2021 [facility] DATE CREATED AUTHOR AUTHOR'S ORGANIZ ATION 09/19/2022 [facility] DATE CREATED AUTHOR AUTHOR'S ORGANIZ ATION 11/05/2022 Santiago [facility] DATE CREATED AUTHOR AUTHOR'S ORGANIZ ATION 02/02/2023 [facility] DATE CREATED AUTHOR AUTHOR'S ORGANIZ ATION 05/21/2023 [facility] DATE CREATED AUTHOR AUTHOR'S ORGANIZ ATION [facility]/20[facility] DATE CREATED AUTHOR AUTHOR'S ORGANIZ ATION 05/08/2024 [facility] DATE CREATED AUTHOR AUTHOR'S ORGANIZ ATION 08/31/2024 [facility] Goals (unrecognized section and content) Goals [...] Team Status: Active Member Role Status Dates LAURA PEREZ Primary Care Provider Active Team Status: Inactive Member Role Status Dates No Primary Care Physician Primary Care Provider Active Start: June 16, 2024 End: June 16, 2024 No Primary Care Physician Referring Provider Active Start: June 16, 2024 End: June 16, 2024 Dr. Beverley Moncada , DO Attending Provider Activ e Start: June [...] 2024 End: June 30, 2024 Fariba Cota RESIDENTIAL CARE OFFICER, RESIDENTIAL CARE OFFICER-C Attending Provider Active Start: June 30, 2024 [...] End: August 11, 2024 Dr. Beverley Moncada , DO Attending Provider Activ e Start: August 11, 2024 End: August 11, 2024 Team Status: Inactive Member Role Status Dates No Primary Care Physician Primary Care Provider Active Start: August 11, 2024 End: August 11, 2024 Tenisha Reyna CNM Referring Provider Active S tart: August 11, 2024 End: August 11, 2024 Dr. Beverley Moncada , DO Attending Provider Activ e Start: August 11, 2024 End: August 11, 2024 Team Status: Active Member Role Status Dates No Primary Care Physician Primary Care Provider Active Start: August 19, 2024 Tenisha Reyna CNM Referring Provider Active S tart: August 19, 2024 Dr. Beverley Moncada , Attending Provider Activ e Start: August 19, 2024 Dr. Beverley Moncada DO Other Provider Active Start: August 19, 2024 Team Status: Inactive Member Role Status Dates Tenisha Reyna CNM Attending Provider Active S tart: August 19, 2024 End: August 19, 2024 Tenisha Reyna CNM Referring Provider Active S tart: August 19, 2024 End: August 19, 2024 ANA SANCHEZ Primary Care Provider Active Start : August 19, 2024 End: August 19, 2024 Team Status: Active Member Role Status Dates Dr. Nenita Wells MD Other Provider Active Start: August 26, 2024 Tenisha Reyna CNM Attending Provider Active S tart: August 26, 2024 Tenisha Reyna CNM Referring Provider Active S tart: August 26, 2024 ANA SANCHEZ Primary Care Provider Active Start : August 26, 2024 Team Status: Inactive Member Role Status Dates No Primary Care Physician Referring Provider Active Start: August 26, 2024 End: August 26, 2024 Dr. Nenita Wells MD Attending Provider Active Start: August 26, 2024 End: August 26, 2024 ANA SANCHEZ Primary Care Provider Active Start : August 26, 2024 End: August 26, 2024 Team Status: Active Member Role Status Dates No Primary Care Physician Family Provider Active No Primary Care Physician Primary Care Provider Active Team Status: Inactive Member Role Status Dates Fariba Cota RESIDENTIAL CARE OFFICER, RESIDENTIAL CARE OFFICER-C Attending Provider Active Team Status: Inactive Member [...] Member Role Status Dates Fariba Cota NP, RESIDENTIAL CARE OFFICER-C Attending Provider Active No Primary Care Physician [...] Referring Provider, Other Provider Active Fariba Cota RESIDENTIAL CARE OFFICER, RESIDENTIAL CARE OFFICER-C Attending Provider Active Team Status: Active Member Role Status Dates No Primary Care Physician Primary Care Provider Active Dr. Nenita Wells MD Admit Provid er, Referring Provider, Other Provider Active Tenisha Reyna CNM Attending Provider Active Team Status: Inactive Member Role Status Dates No Primary Care Physician Primary Care Provider Active Dr. Nneita Wells MD Admit Provid er, Attending Provider, Referring Provider Active Team Status: Inactive Member Role Status Dates No Primary Care Physician Primary Care Provider, Refer ring Provider Active Radha Sofia RESIDENTIAL CARE OFFICER, RESIDENTIAL CARE OFFICER-C Attending Provider Active Team Status: Inactive Member Role Status Dates No Primary Care Physician Primary Care Provider, Refer ring Provider Active Fariba Cota RESIDENTIAL CARE OFFICER, RESIDENTIAL CARE OFFICER-C Attending Provider Active Team Status: Inactive Member Role Status Dates No Primary Care Physician Primary Care Provider, Refer ring Provider Active Dr. Nenita Wells MD Attending Provider Active Team Status: Inactive Member Role Status Dates No Primary Care Physician Primary Care Provider Active Dr. Nenita Wells MD Attending Provider, Referr ing Provider Active Adjuster And Inspector Relationship Specialty Start Date End Date Laura Perez CNP [address] [place] [address] PCP - General Nurse Practitioner - Family 10/10/23 Adjuster And Inspector Relationship Specialty Start Date End Date Laura [...] End: April 21, 2024 Fariba Cota NP, RESIDENTIAL CARE OFFICER-C Attending Provider Active Start: April 21, 2024 End: April 21, 2024 Team Status: Active Member Role Status Dates No Primary Care Physician Primary Care Provider Active Team Status: Inactive Member Role Status Dates Dr. Nenita Wells MD Other Provider Active Start: August 26, 2024 End: August 26, 2024 Tenisha Reyna CNM Attending Provider Active S tart: August 26, 2024 End: August 26, 2024 Tenisha Reyna CNM Referring Provider Active S tart: August 26, 2024 End: August 26, 2024 ANA SANCHEZ Primary Care Provider Active Start : August 26, 2024 End: August 26, 2024 Team Status: Inactive Member Role Status Dates No Primary Care Physician Referring Provider Active Start: September 02, 2024 End: September 02, 2024 ANA SANCHEZ Primary Care Provider Active Start : September 02, 2024 End: September 02, 2024 Fariba Cota RESIDENTIAL CARE OFFICER, RESIDENTIAL CARE OFFICER-C Attending Provider Active Start: September 02, 2024 End: September 02, 2024 Team Status: Active Member Role Status Dates ANA SANCHEZ Primary Care Provider Active Start : September 02, 2024 Fariba Cota RESIDENTIAL CARE OFFICER, RESIDENTIAL CARE OFFICER-C Attending Provider Active Start: September 02, 2024 Fariba Cota RESIDENTIAL CARE OFFICER, RESIDENTIAL CARE OFFICER-C Referring Provider Active Start: September 02, 2024 Reason for Visit (unrecogniz ed section and content) Reason Comments Shortness of Breath Generalized Body Aches Specialty Diagnoses / Procedures Referred By Vicki gan Referred To Contact Diagnoses Pneumonia PNA (pneumonia) Marilee Dallas, DO [address] [place] [address] [facility] Referral ID Status Reason Start Date Expiration Date Visits Re quested Visits Authorized [id number] 1 1 Reason Comments Cough Pt states [...] Until Discontinued 2007 (Given - Provider: Stacy Daniel, JOANIE) 0815 (Given - Provider: Calli Meyer, RN)2018 (Given - Provider: Machelle Garrett, JOANIE) 08 (Given - Provider: Susi Rain RN) albumin human 25 % injection 50 g (COMPLETED) 50 g, Intravenous, Administer over 60 Minutes, ONCE, 1 dose, On Fri10/13/23 at 0630, At [facility], in emergencies, administer as rapidly as necessary to improve clinical conditions. Rate of infusion is based on dose: 12.5g given over 30min, 25g given over 60min, 50g given over 120min., Indications: Fluid Resuscitation 0617 ($$New Bag$$ - Provider: Stacy Daniel RN)0717 (Stopped - Provider: Calli Meyer RN) Ipratropium-albuterol (DUONEB) 0.5-2.5 (3) MG/3ML nebulizer solution 3 mL (CANCELED) 3 mL, Nebulization, EVERY 4 HOURS, First dose on Fri10/11/23 at 0045, Until Discontinued 0253 (Given - Provider: Jhoana Kolb RCP)0734 (Given - Provider: Elsa Guzman RRT)1131 (Given - Provider: Elsa Guzman RRT) Ipratropium-albuterol (DUONEB) 0.5-2.5 (3) MG/3ML nebulizer solution 3 mL 3 mL, Nebulization, EVERY 6 HOURS NON-STANDARD, First dose (after last modification) on Fri10/12/23 at 1900, Until Discontinued 191 (Given - Provider: Roxana Hamm RRT) 0011 (Given - Provider: Roxana Hamm RRT)0728 (Given - Provider: Brooke Amaro RRT)1333 (Given - Provider: Brooke Amaro RRT)1915 (Given - Provider: Roxana Hamm RRT) 0034 [...] ONCE, 1 dose, On Fri10/12/23 at 1445 1426 ($$New Bag$$ - Provider: Calli Meyer RN)1600 (Stopped - Provider: Calli Meyer RN) lamoTRIgine (laMICtal) tablet 200 mg 200 mg, Oral, DAILY, First dose on 10/11/23 at 0945, Until Discontinued 0855 (Given - Provider: Calli Meyer RN) 0815 (Given - Provider: Calli Meyer RN) 0829 (Given - Provider: Susi Rain, JOANIE) levoFLOXacin (LEVAQUIN) 750 mg in dextrose 5% [...] not met) 0637 (Not Given - Provider: Stcay Daniel RN - Reason: Order Parameters not [...] Stacy Daniel RN)1313 (Given - Provider: Calli Meyer RN)2159 (Given - Provider: Machelle Garrett RN) 0621 [...] Intravenous, at 75 mL/hr, CONTINUOUS, Starting on Fri10/11/23 at 0000, Until Fri10/12/23 at 1240 0342 [...] mg) 1854 (Given - Provider: Calli Meyer, RN) Docusate (COLACE) capsule 100 mg 100 mg, Oral, 2 TIMES DAILY NEEDED, Starting on 10/11/23 at 0843, Until Fri10/14/23 at 1737, Constipation 1st Line Ketorolac (TORADOL) injection 30 mg 30 mg, Intravenous, EVERY 6 HOURS NEEDED, Starting on Fri10/10/23 at 2356, Until Fri10/14/23 at 1737, Moderate Pain 0337 (Given - Provider: Stacy Daniel, JOANIE)2009 (Given - Provider: Stacy Daniel, JOANIE) 2157 (Given - Provider: Machelle Garrett, JOANIE) Labetalol (NORMODYNE) injection 20 mg 20 mg, Intravenous, EVERY 4 HOURS NEEDED, Starting on Fri10/13/23 at 2318, Until Fri10/14/23 at 1737, systolic blood pressure greater than 160, Administration duration: up to 20 mg over 2 minutes. 2336 (Given - Provider: Machelle Garrett RN) 0621 (Given - Provider: Machelle Garrett, JOANIE)1101 [...] BE BASED ON THE PRIMARY CLINICAL RECORDS. [facility]. provides no warranty or guarantee of the accuracy or completeness of information in this document.
== END | disposition home or self-care (01) ==
PROVIDERS: Obstetrics & Gynecology; Referring Provider Nurse Practitioner Women's Health; Visit Provider Nurse Practitioner Women's Health
DX: O09.93 Supervision of high risk pregnancy, unspecified, third trimester (principal); Z13.1 Encounter for screening for diabetes mellitus; Z3A.00 Weeks of gestation of pregnancy not specified
CPT/HCPCS: 36415; 82950

== ENCOUNTER → 2024-09-02 | Outpatient (CLI) | payer OTHER, SELFPAY ==
--- NOTE | 2024-09-02 11:59 | US_ITS ---
PROCEDURE: BIOPHYSICAL PROF W/O NON STRES 09/02/2024 REASON FOR EXAM: OBESITY DURING TECHNIQUE: High resolution obstetric ultrasound performed using a 2D transducer. Standard views obtained, including biometry, anatomy survey, and Doppler studies. COMPARISON: Prior study dated August 26, 2024. FINDINGS Number: 1 Position: Vertex Placental Position: Anterior and not low-lying. Placental Abnormalities: No evidence of previa. ESTIMATED GESTATIONAL AGE: Baseline: 37 weeks and 2 days ESTIMATED DATE OF DELIVERY: Baseline: September 21, 2024. BIOPHYSICAL ASSESSMENT: Amniotic Fluid Volume: 7 cm Amniotic Fluid Index: 19.8 (8-24 cm normal range) Cardiac Motion: 148 beats per minute (average) Trunk and Limb Motion: Present. Biophysical profile: Breathing movements: 2 Gross body movements: 2 tone: 2 Amniotic fluid volume: 2 Total score: 8/8 US/Biophysical Prof W/O Non Stres IMPRESSION: Normal biophysical profile. Reading Location: [place] [id number]
--- OUTSIDE RECORDS SUMMARY | 2024-09-02 20:46 | XMS RPT_ITS | CCD ---
Author Organization [facility] Care Team Providers Care Rehab Therapy Manager Name Role Phone FADILLON Jernigan Unavailable Unavailable MARISSA HOOPER Unavailable Unavailable FADILLON Jernigna Unavailable Unavailable MARISSA HOOPER Unavailable Unavailable Pending Provider Unavailable Unavailable Unavailable Unavailable Dr. Beverley Moncada Attending Provider [phone] LAURA PEREZ Primary Care Provider UnavailLAURA Renteria Referring Provider Unavailable Beata FORGE PRESS OPERATOR, FORGE PRESS OPERATOR-C Fariba Attending Provider [phone] Dr. Beverley Moncada Referring Provider [phone] Dr. Beverley Moncada Other Provider DEAN Jones Attending Provider DEAN Jones Other Provider Dr. Nenita Wells Attending Provider Dr. Beverley Moncada Attending Provider Care Physician, No Primary Primary Care Provider Unavailable Dr. Nenita Wells Admit Provider Dr. Nenita Wells Referring Provider Dr. Nenita Wells Other Provider DEAN Reyna Attending Provider Beata FORGE PRESS OPERATOR, FORGE PRESS OPERATOR-C Fariba Attending Provider Care Physician, No Primary Referring Provider Un available [place] FORGE PRESS OPERATOR, FORGE PRESS OPERATOR-C Radha Attending Provider LAURA PEREZ Primary Care [...] Referring Unavailable SIDELL, LAURA Primary Care Unavailable [address] INSPECTOR, Laura Primary Care Provider [phone] INSPECTOR, Laura Primary Care Provider [phone] MARILEE [place] Attending Unavailable SIDELL, LAURA Primary [...] Dr. Nenita Wells MD Attending Provider [phone] Dr. Nenita Wells MD Referring Provider Fariba Martini Attending Provider [phone] Dr. Beverley Moncada DO Attending Provider Dr. Nenita Wells MD Other Provider [phone] Tenisha Reyna CNM Attending Provider [phone] Care Physician, No Primary Primary Care Provider Unavailable Care Physician, No Primary Referring Provider Un available Dr. Nenita Wells MD Attending Provider Dr. Nenita Wells MD Referring Provider [phone] Tenisha Reyna CNM Referring Provider [phone] Care Physician, No Primary Primary Care Provider Unavailable Care Physician, No Primary Referring Provider Un available Beata TURK-Fariba Schulte Attending Provider Dr. Beverley Moncada DO Other Provider [phone] LAURA PEREZ Primary Care Provider [phone] LAURA PEREZ Primary Care Provider Unavailabl e [...] Reyna Referring Unavailable Tenisha Reyna Attending Unavailable Ajit, [...] Unava ilable Nenita Wells Attending Unavailable Beata FORGE PRESS OPERATOR-CFariba Referring Provider [phone] Allergies Allergy Classification Reported Allergen(s) Allergy Type Date of Onset Reaction(s) Facility (1 source) Penicillins Drug allergy (disorder) [facility] (1 source) Penicillins; Translations: [Penicillins] Allergy to drug (finding) [facility] Work Phone: (1 source) Tdap; Translations: [Tdap] Allergy to drug (finding) [facility] [address] [employer] Work Phone: (13 sources) Amoxicillin Drug Allergy 2 Rash [facility] (14 sources) insect venom; Translations: [insect venom] Allergy to substance 2 unknown, Swelling [facility] Comment on above: Bee stings (13 sources) Pertussis Vaccines Allergy to substance 2 Other [facility] Comment on above: Unkonwn reaction. On ly had 1 vaccine due to some reaction- Has had a TDAP since and no reaction (6 sources) Chlorhexidine; Translations: [chlorhexidine containing compounds] Drug Allergy Eruption of skin (disorder) [facility] (6 sources) Penicillin; Translations: [penicillin] Drug Allergy Eruption (morphologic abnormality) [facility] (1 source) ALLERGIES NOT ON FILE; Translations: [ALLERGIES NOT ON FILE] Propensity to adverse reactions (disorder) [facility] (1 source) Amoxicillin Drug Allergy 5 [facility] Repository (1 source) Pertussis Vaccine Drug Allergy 5 [facility] Repository Medications Current Medications Medication [...] 5:14pm Start: 05-07-2019 take 1 capsule by [facility] once daily as needed Zyrtec Liquid Gels [...] Daily, # 90 tab(s), Refills(s) 1, Pharmacy: [facility] #[facility], 163, cm, 11/14/20 14:03:00 EDT, Height/Length [...] 0 Start Date: 05/07/19 Status: Ordered Multivit 59-Sqct-Xgcdjc 1-Dha (Pnv-Dha) 27 mg iron-1 mg -300 [...] bedtime), # 90 tab(s), Refills(s) 1, Pharmacy: [facility] #44, 163, cm, 10/01/22 9:32:00 EDT, Height/Length Dosing, 111.7, kg, 10/01/22 9:32:00 EDT, Weight Dosing Start Date: 10/01/22 Status: Ordered Start: 06-07-2021 take 1 tablet by [facility] once daily at bedtime traZODONE 50 mg Tab 50 mg = 1 tab(s), Oral, Once a day (at bedtime), # 90 tab(s), Refills(s) 1, Pharmacy: [facility] #44, 163, cm, 11/14/20 14:03:00 EDT, Height/Length [...] 2100, Until Discontinued 20 ml albumin human, longterm 250 mg/ml injection (1 source) Human Serum Albumin Start: 10-13-2023 End: 10-13-2023 50 g, Intravenous, Administer over 60 Minutes, ONCE, 1 dose, On Fri10/13/23 at 0630, At [facility], in emergencies, administer as rapidly as [...] Oral, Daily, 84 tab(s), Refill(s) 1, [facility], 163, cm, 11/14/20 14:03:00 EDT, Height/Length [...] 1 capsule by mouth once daily Pnv 193-Lgtg-Whzyjw-Dha (Vitafol Fe Plus) 90 mg iron- 1 mg-200 mg capsule Discontinued 1 NMA PO DAILY December 07, 2021 12:00am July 30, 2022 11:10am Start: 12-07-2021 End: 07-30-2022 take 1 capsule by mouth once daily Pnv 033-Wcwe-Dplbvg-Dha (Vitafol Fe Plus) 90 mg iron- 1 mg-200 mg capsule Discontinued 1 CAP PO DAILY December 07, 2021 12:00am July 30, 2022 11:10am Start: 12-07-2021 take 1 capsule by [facility] once daily Pnv 867-Zvva-Vnlump-Dha (Vitafol Fe Plus) 90 mg iron- 1 [...] 10-Apr-2016 Active take 2 tablets by mo [facility] once daily lamoTRIgine 100 MG tablet Take [...] Onset: 09-13-2022 Other aftercare (1 source) Other [facility] (current) drug therapy; Translations: [Other [facility] (current) drug therapy] Onset: 09-13-2022 Episodic Other [...] unspecified trimester] 04-22-2022 Chronic Comment on above: [id number] 43-needs w eekly NST/BPP at 34 weeks- needs 36 week US weekly nsts at 34 an d growth US 32 and 36 [id number] 45-needs w eekly NST at 34 weeks- [...] above: PRR. , HITESH 5, boy,Emily Ball [id number], girl, Ernie ernandez HITESH 06/30/22, Jimmy Alvarado [...] B Beta Streptococcus is not isolated. Normal [facility] Comment on above: Performed By: #### M 100.340 #### [facility] Laboratory [address] [place], [place], [address] Biophysical Prof W/O Non Str eson 08-26-2024 Biophysical Prof W/O Non Stres [facility] Imaging Services [address] [place], [place] [address] Biophysical Prof W/O Non Stres MR#: [id number] Acct: [id number] Name: ANAI WOO Rep #: [id number] : 1995 F 29 From: Maik Munoz DO PCP: Status: REG CLI Study: Biophysical Prof W/O Non Stres Date of Exam: 0 08/26/24 Exam# [id number] Ordering Dr: Tenisha Reyna CNM PROCEDURE: BIOPHYSICAL [...] by current prior ultrasound: 09/11/2019 [facility] CC: DEAN Reyna; LAURA PEREZ Wheel Roller: Signed Normal [facility] Laboratory - Chemistry and C hemistry - challengeOrdered By: Nenita Wells on 08-26-2024 Glucose Ql (U) Negative [facility] Laboratory - UrinalysisOrder ed By: Nenita Wells on 08-26-2024 Protein Ql (U) Negative [facility] OB Limited With Biometricson 08-26-2024 OB Limited With Biometrics [facility] Imaging Services [address] [place], [place] [id number] OB Limited With Biometrics MR#: [id number] Acct: [id number] Name: ANAI WOO Rep #: [id number] : 1995 F 29 From: Rodriguez snow MD PCP: Status: REG CLI Study: OB Limited With Biometrics Date of Exam: 08/26 Exam# [id number] Ordering Dr: Nenita Wells PROCEDURE: OB LIMITED [...] with the normal expected range. Reading Location: [place] [address] CC: LAURA PEREZ; Dr. Nenita Wells MD Wheel Roller: Signed Normal [facility] Monitoring Coordinator Office Visit Reporton 08-26-2024 Monitoring Coordinator Office Visit Report [facility]'s [address], [address] [place] [address] OFFICE VISIT Date of Service: 08/26/24 MR#: [id number] Acct: [id number] Name: ANAI WOO Rep #: [id number] : 1995 Provider: Dr. Nenita husain MD Age/Sex: 29/F [place] [facility] [place]: Signed Intake Vital Signs 06/30/24 14:36 08/11/24 13:01 08/26/24 13:14 08/26/24 13:15 Height 5 ft 4 in 5 ft 4 in 5 ft 4 in 5 ft 4 in Weight: 281 lb 4 oz BMI 48.2 BP 119/80 Intake Visit Reasons: 36wk ob Tool Crib Lead Required: No Is patient in pain?: No [...] 1 current occupational status: employed current occupation: [employer] current occupational exposures/hazards: No pets and animals: [...] 3-4 times per week duration: 30-45 minutes/day katherine/anabaptism: None seatbelt use: always do you feel safe at home: Yes 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 Date Name GA/Weeks Outcome Route Bth Weight Infant Gen Labor Lgth Anesthesia Del Locatn Provider FOB 06/09/22 Finlee 37 live - full term 7#2 Female epidural [facility] rolo Alvarado Delivery Date: 06/09/22 Last [...] 02/18/24 -???-???-???-???-?? (more content not included)... Normal [facility] Screening beta-hemolytic Str eptococcus cultureOrdered By: Nenita Wells on 08-26-2024 Beta-hemolytic Streptococcus culture Group B Beta Streptococcus is not isolated. [facility] Biophysical Prof W/O Non Str eson 08-19-2024 Biophysical Prof W/O Non Stres [facility] Imaging Services [address] [place] [address] Biophysical Prof W/O Non Stres MR#: [id number] Acct: [id number] Name: ANAI WOO Rep #: [id number] : 1995 F 29 From: Rodriguez snow MD PCP: LAURA PEREZ Status: REG CLI Study: Biophysical Prof W/O Non Stres Date of Exam: 0 08/19/24 Exam# [id number] Ordering Dr: Tenisha Reyna CNM PROCEDURE: BIOPHYSICAL [...] Stres IMPRESSION: Normal biophysical profile. Reading Location: [id number] CC: DEAN Reyna; LAURA PEREZ Wheel Roller: Signed Normal [facility] OB Triage Physician Noteon 0 08-19-2024 OB Triage Physician Note [facility] Medical Records Department [address] [place] [address] OB Triage Physician Note 08/19/24 0020 MR#: [id number] Acct: [id number] Name: ANAI WOO Rep #: [id number] : 1995 29 From: Beverley Moncada DO PCP: Care Physician,No Primary Status:DEP CLI Y Location: [facility] HPI - General General Date of [...] 1 current occupational status: employed current occupation: [employer] current occupational exposures/hazards: No pets and animals: [...] 3-4 times per week duration: 30-45 minutes/day katherine/anabaptism: None seatbelt use: always do you feel safe at home: Yes 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 Date Name GA/Weeks Outcome Route Bth Weight Gen Labor Lgth Anesthesia Del Locatn Provider FOB 06/09/22 Víctor 37 live - full term 7#2 Female epidural [facility] rolo Alvarado Delivery Date: 06/09/22 Last [...] dates HITESH (more content not included)... Normal [facility] (ROM) Rupture Of Membraneson 08-11-2024 ROM Negative Normal Negative [facility] Comment on above: Result Comment: Amni otic fluid not present indicates No Rupture of Membranes at time of specimen collection. Performed By: #### L 205.1000 #### [facility] Laboratory [address] [place], [address] Biophysical Prof W/O Non Str eson 08-11-2024 Biophysical Prof W/O Non Stres [facility] Imaging Services [address] [place] [address] Biophysical Prof W/O Non Stres MR#: [id number] Acct: [id number] Name: ANAI WOO Rep #: [id number] : 1995 F 29 From: Rodriguez snow MD PCP: Care Physician,No Primary Status: REG CLI Study: Biophysical Prof W/O Non Stres Date of Exam: 0 08/11/24 Exam# [id number] Ordering Dr: Tenisha Reyna CNM PROCEDURE: BIOPHYSICAL [...] IMPRESSION: biophysical profile score: 6/8. Reading Location: [facility] CC: DEAN Reyna; No Primary Care Physician Wheel Roller: Signed Normal [facility] Laboratory - Chemistry and C hemistry - challengeOrdered By: Beverley Vázquez on 08-11-2024 Glucose Ql (U) Negative [facility] Laboratory - UrinalysisOrder ed By: Beverley Vázquez on 08-11-2024 Protein Ql (U) Negative [facility] Monitoring Coordinator Office Visit Reporton 08-11-2024 Monitoring Coordinator Office Visit Report [facility]'s [address], [address] [place] [address] OFFICE VISIT Date of Service: 08/11/24 MR#: [id number] Acct: [id number] Name: ANAI WOO Rep #: [id number] : 1995 Provider: Dr. 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 Date Name GA/Weeks Outcome Route Bth Weight Infant Gen Labor Lgth Anesthesia Del Locatn Provider FOB 06/09/22 Finlee 37 live - full term 7#2 Female epidural [facility] rolo Alvarado Delivery Date: 06/09/22 Last [...] -???-???-???-???-???-??? -???-???-???-???-? (more content not included)... Normal [facility] Laboratory - Chemistry and C hemistry - challengeOrdered By: Tenisha Reyna on 07-27-2024 Glucose Ql (U) Negative [facility] Laboratory - UrinalysisOrder ed By: Tenisha Reyna on 07-27-2024 Protein Ql (U) Negative [facility] OB Limited With Biometricson 07-27-2024 OB Limited With Biometrics [facility] Imaging Services [address] [place] [address] OB Limited With Biometrics MR#: [id number] Acct: [id number] Name: ANAI WOO Rep #: [id number] : 1995 F 29 From: Nick Schreiber MD PCP: Care Physician,No Primary Status: REG CLI Study: OB Limited With Biometrics Date of Exam: 07/27 Exam# [id number] Ordering Dr: Nenita Wells PROCEDURE: OB LIMITED [...] represent a possible placental Pop. Reading Location: [id number] CC: Dr. Nenita Wells MD; No Primary Care Physician Wheel Roller: Signed Normal [facility] Monitoring Coordinator Office Visit Reporton 07-27-2024 Monitoring Coordinator Office Visit Report [facility]'s [address], [address] [place] [address] OFFICE VISIT Date of Service: 07/27/24 MR#: [id number] Acct: [id number] Name: ANAI WOO Rep #: [id number] : 1995 Provider: DEAN Massey ams Age/Sex: 29/F [place] [facility] [place] Status: Signed Intake Vital Signs 06/16/24 14:12 07/13/24 14:55 07/27/24 13:40 Height 5 ft 4 in 5 ft 4 in 5 ft 4 in Weight: 278 lb 2 oz BMI 47.7 BP 126/86 H Intake Visit Reasons: 32wk ob Chief Complaint: 32wk OB Tool Crib Lead Required: No Is patient in pain?: No [...] 1 current occupational status: employed current occupation: [employer] current occupational exposures/hazards: No pets and animals: [...] 3-4 times per week duration: 30-45 minutes/day katherine/anabaptism: None seatbelt use: always do you feel safe at home: Yes 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 Date Name GA/Weeks Outcome Route Bth Weight Infant Gen Labor Lgth Anesthesia Del Locatn Provider FOB 06/09/22 Finlee 37 live - full term 7#2 Female epidural [facility] rolo Alvarado Delivery Date: 06/09/22 Last Updated by: aSndy Encinas see problem list for complications, and [...] -???-???-???-???-???-??? -???-???-???-???-??? (more content not included)... Normal [facility] Monitoring Coordinator Office Visit Reporton 07-13-2024 Monitoring Coordinator Office Visit Report [facility]'s [address], [address] [place] [address] OFFICE VISIT Date of Service: 07/13/24 MR#: [id number] Acct: [id number] Name: ANAI WOO Rep #: [id number] : 1995 Provider: Dr. 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 Date Name GA/Weeks Outcome Route Bth Weight Gen Labor Lgth Anesthesia Del Locatn Provider FOB 06/09/22 Víctor 37 live - full term 7#2 Female epidural [facility] rolo Alvarado Delivery Date: 06/09/22 Last [...] - 9w (more content not included)... Normal [facility] Absolute lymphocyte countOrd ered By: Beverley Vázquez on 06-30-2024 Lymphocytes Auto (Unsp spec) [#/Vol] 2.65 10*3/uL 0.83-4.51 [facility] Absolute neutrophil countOrd ered By: Beverley Vázquez on 06-30-2024 Neutrophils (Bld) [#/Vol] 9.7 10*3/uL High 2.0-7.7 [facility] Automated lymphocyte count a s percentage of total leukocytesOrdered By: Beverley Vázquez on 06-30-2024 Lymphocytes/100 WBC Auto (Unsp spec) 20.0 % 19-41 [facility] Basophil percentageOrdered B y: Beverley Vázquez on 06-30-2024 Basophils/100 WBC (Bld) 0.2 % 0-1 [facility] CBC W/Diff, Automatedon Absolute Lymph 2.65 X10 3/uL Normal 0.83-4.51 [facility] Comment on above: Performed By: #### L 3890.6006, L501.0250, L509.8002, L100.0100 ####[facility] [address] [place], [address] Absolute Neut 9.7 X10 3/uL High 2.0-7.7 [facility] Comment on above: Performed By: #### L 3890.6006, L501.0250, L509.8002, L100.0100 ####[facility] [address] [place], [address] Basophils/100 WBC (Bld) 0.2 % Normal 0-1 [facility] Comment on above: Performed By: #### L 3890.6006, L501.0250, L509.8002, L100.0100 ####[facility] [address] [place], [address] Eosinophils/100 WBC (Bld) 1.6 % Normal 0-5 [facility] Comment on above: Performed By: #### L 3890.6006, L501.0250, L509.8002, L100.0100 ####[facility] [address] [place], [address] Erythrocyte distribution width (RBC) [Ratio] 15.4 % High 11.6-14.6 [facility] Comment on above: Performed By: #### L 3890.6006, L501.0250, L509.8002, L100.0100 ####[facility] [address] [place], [address] Hematocrit (Bld) [Volume fraction] 39.7 % Normal 37-47 [facility] Comment on above: Performed By: #### L 3890.6006, L501.0250, L509.8002, L100.0100 ####[facility] [address] [place], [address] Hemoglobin (Bld) [Mass/Vol] 13.1 g/dL Normal 12.0-15.0 [facility] Comment on above: Performed By: #### L 3890.6006, L501.0250, L509.8002, L100.0100 ####[facility] [address] [place], [address] IG% 0.800 Normal 0.0-0.9 [facility] Comment on above: Result Comment: IG% - Immature Granulocytes (promyelocytes, myelocytes and metamyelocytes) > 1% indicates that a LEFT SHIFT is Present. Performed By: #### L 3890.6006, L501.0250, L509.8002, L100.0100 ####[facility] [address] [place], [address] Lymphocytes/100 WBC (Bld) 20.0 % Normal 19-41 [facility] Comment on above: Performed By: #### L 3890.6006, L501.0250, L509.8002, L100.0100 ####[facility] [address] [place], [address] MCH (RBC) [Entitic mass] 28.1 pg Normal 27.0-32.0 [facility] Comment on above: Performed By: #### L 3890.6006, L501.0250, L509.8002, L100.0100 ####[facility] [address] [place], [address] MCHC (RBC) [Mass/Vol] 33.0 g/dL Normal 32-36 [facility] Comment on above: Performed By: #### L 3890.6006, L501.0250, L509.8002, L100.0100 ####[facility] [address] [place], [address] MCV (RBC) [Entitic vol] 85.0 fL Normal 81-99 [facility] Comment on above: Performed By: #### L 3890.6006, L501.0250, L509.8002, L100.0100 ####[facility] [address] [place], [address] Monocytes/100 WBC (Bld) 4.3 % Normal 0-10 [facility] Comment on above: Performed By: #### L 3890.6006, L501.0250, L509.8002, L100.0100 ####[facility] [address] [place], [address] Neutrophils/100 WBC (Bld) 73.1 % High 47-70 [facility] Comment on above: Performed By: #### L 3890.6006, L501.0250, L509.8002, L100.0100 ####[facility] [address] [place], [address] Nucleated RBC (Bld) [#/Vol] 0 10*3/uL Normal 0-5 [facility] Comment on above: Performed By: #### L 3890.6006, L501.0250, L509.8002, L100.0100 ####[facility] [address] [place], [address] Platelet mean volume (Bld) [Entitic vol] 10.0 fL Normal 6.2-12.0 [facility] Comment on above: Performed By: #### L 3890.6006, L501.0250, L509.8002, L100.0100 ####[facility] [address] [place], [address] Platelets (Bld) [#/Vol] 303 10*3/uL Normal 150-450 [facility] Comment on above: Performed By: #### L 3890.6006, L501.0250, L509.8002, L100.0100 ####[facility] [address] [place], [address] RBC (Bld) [#/Vol] 4.67 10*6/uL Normal 4.2-5.4 [facility] Comment on above: Performed By: #### L 3890.6006, L501.0250, L509.8002, L100.0100 ####[facility] [address] [place], [address] RDW SD 46.7 fl High 35.1-43.9 [facility] Comment on above: Performed By: #### L 3890.6006, L501.0250, L509.8002, L100.0100 ####[facility] [address] [place], [address] WBC (Bld) [#/Vol] 13.3 10*3/uL High 4.4-11.0 [facility] Comment on above: Performed By: #### L 3890.6006, L501.0250, L509.8002, L100.0100 ####[facility] [address] [place], [address] Eosinophil percentageOrdered By: Beverley Vázquez on 06-30-2024 Eosinophils/100 WBC (Bld) 1.6 % 0-5 [facility] Erythrocyte distribution wid th (RBC) [Ratio]Ordered By: Beverley Vázquez on 06-30-2024 Erythrocyte distribution width (RBC) [Entitic vol] 46.7 fL High 35.1-43.9 [facility] Erythrocyte distribution wid th ratioOrdered By: Beverley Vázquez on 06-30-2024 Erythrocyte distribution width (RBC) [Ratio] 15.4 % High 11.6-14.6 [facility] Erythrocyte distribution wid th standard deviationOrdered By: Beverley Vázquez on 06-30-2024 Erythrocyte distribution width (RBC) [Ratio] 46.7 fl High 35.1-43.9 [facility] Glucose Challenge Gest 1H 50 aurelia 06-30-2024 GLU GEST 50g 1H 113 mg/dL Normal 70-140 [facility] Comment on above: Performed By: #### L 3890.6006, L501.0250, L509.8002, L100.0100 ####[facility] [address] [place], [place], [address] Glucose measurement at 2 amanda rs post-dose gestational glucose tolerance testOrdered By: Beverley Vázquez on 06-30-2024 Glucose [Mass/Vol] 113 mg/dL 70-140 [facility] HIVon 06-30-2024 HIV Non-Reactive Normal Nonreactive [facility] Comment on above: Result Comment: Non- Reactive Reactive Repeatedly reactive samples must be confirmed according to CDC recommended confirmatory algorithms. The subresults for either HIVAG or AHIV can be used as an aid in the selection of the confirmation algorithm for reactive samples. Send out specimens with Reactive results to [facility] for confirmation. Order the HIV antibody detection and differentiation: lc#[id number] Performed By: #### L 3890.6006, L501.0250, L509.8002, L100.0100 ####[facility] [address] [place], [place], [address] Hematocrit Auto (Bld) [Volum e fraction]Ordered By: Beverley Vázquez on 06-30-2024 Hematocrit (Bld) [Volume fraction] 39.7 % 37-47 [facility] Hemoglobin measurementOrdere d By: Beverley Vázquez on 06-30-2024 Hemoglobin (Bld) [Mass/Vol] 13.1 g/dL 12.0-15.0 [facility] Immature granulocytes/100 WB C Auto (Bld)Ordered By: Beverley Vázquez on 06-30-2024 Immature granulocytes/100 WBC (Bld) 0.800 % 0.0-0.9 [facility] Comment on above: IG% - Immature Granu locytes (promyelocytes, myelocytes and metamyelocytes) > 1% indicates that a LEFT SHIFT is Present. Laboratory - Chemistry and C hemistry - challengeOrdered By: Fariba Cota on 06-30-2024 Glucose Ql (U) Negative [facility] Laboratory - UrinalysisOrder ed By: Fariba Cota on 06-30-2024 Protein Ql (U) Negative [facility] Lymphocytes Auto (Unsp spec) [#/Vol]Ordered By: Beverley Vázquez on 06-30-2024 Lymphocytes (Bld) [#/Vol] 2.65 10*3/uL 0.83-4.51 [facility] Lymphocytes/100 WBC Auto (Un sp spec)Ordered By: Beverley Vázquez on 06-30-2024 Lymphocytes/100 WBC (Bld) 20.0 % 19-41 [facility] MCV (mean corpuscular volume ) determinationOrdered By: Beverley Vázquez on 06-30-2024 MCV (RBC) [Entitic vol] 85.0 fL 81-99 [facility] Mean corpuscular hemoglobin (MCH) determinationOrdered By: Beverley Vázquez on 06-30-2024 MCH (RBC) [Entitic mass] 28.1 pg 27.0-32.0 [facility] Mean corpuscular hemoglobin concentration (MCHC) determinationOrdered By: Beverley Vázquez on 06-30-2024 MCHC (RBC) [Mass/Vol] 33.0 g/dL 32-36 [facility] Mean platelet volume determi nationOrdered By: Beverley Vázquez on 06-30-2024 Platelet mean volume (Bld) [Entitic vol] 10.0 fL 6.2-12.0 [facility] Monocyte percentageOrdered B y: Beverley Vázquez on 06-30-2024 Monocytes/100 WBC (Bld) 4.3 % 0-10 [facility] Neutrophil percentageOrdered By: Beverley Vázquez on 06-30-2024 Neutrophils/100 WBC (Bld) 73.1 % High 47-70 [facility] No Panel InformationOrdered By: Beverley Kathie on 06-30-2024 HIV (1&2) Antibody Non-Reactive Nonreactive [facility] Comment on above: Non-ReactiveReactive Repeatedly reactive samples must be confirmed according to CDC recommended confirmatory algorithms. The subresults for either HIVAG or AHIV can be used as an aid in the selection of the confirmation algorithm for reactive samples.Send out specimens with Reactive results to [facility] for confirmation.Order the HIV antibody detection and differentiation: #[id number] Nucleated red blood cell per centageOrdered By: Beverley Kathie on 06-30-2024 Nucleated RBC/100 WBC (Bld) [Ratio] 0 % 0-5 [facility] Monitoring Coordinator Office Visit Reporton 06-30-2024 Monitoring Coordinator Office Visit Report [facility]'[address], [address] [place] [address] OFFICE VISIT Date of Service: 06/30/24 MR#: [id number] Acct: [id number] Name: ANAI WOO Rep #: [id number] : 1995 Provider: NAMITA dubose Age/Sex: 29/F [place] [facility] [place]: Signed Intake Vital Signs 06/16/24 14:12 06/21/24 21:15 06/30/24 14:31 06/30/24 14:36 Height 5 ft 4 in 5 ft 4 in 5 ft 4 in 5 ft 4 in Weight: 272 lb 6 oz BMI 46.7 BP 124/86 H Intake Visit Reasons: 28wk ob Chief Complaint: 28 Week OB Tool Crib Lead Required: No Is patient in pain?: No [...] 1 current occupational status: employed current occupation: [employer] current occupational exposures/hazards: No pets and animals: [...] 3-4 times per week duration: 30-45 minutes/day katherine/anabaptism: None seatbelt use: always do you feel safe at home: Yes 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 Date Name GA/Weeks Outcome Route Bth Weight Gen Labor Lgth Anesthesia Del Locatn Provider FOB 06/09/22 Gaetanoleawais 37 live - full term 7#[facility] Delivery Date: 06/09/22 [...] Visit Note (more content not included)... Normal [facility] Platelet countOrdered By: Haim Vázquez on 06-30-2024 Platelets (Bld) [#/Vol] 303 10*3/uL 150-450 [facility] RBC Auto (Bld) [#/Vol]Ordere d By: Beverley Vázquez on 06-30-2024 RBC (Bld) [#/Vol] 4.67 10*6/uL 4.2-5.4 [facility] Syphilis Antibodieson 2024 Syphilis Abs Non-Reactive Normal Nonreactive [facility] Comment on above: Performed By: #### L 3890.6006, L501.0250, L509.8002, L100.0100 ####[facility] [address] [facility] [place], [address] T. pallidum abOrdered By: Haim Vázquez on 06-30-2024 Syphilis Total Antibody Non-Reactive Nonreactive [facility] White blood cell (WBC) count Ordered By: Beverley Vázquez on 06-30-2024 WBC (Bld) [#/Vol] 13.3 10*3/uL High 4.4-11.0 [facility] Genital Culture Comprehensiv martha 06-26-2024 VAC Normal vaginal soumya isolated. No yeast, Gardnerella, Neisseria or beta-hemolytic Streptococcus isolated. Normal [facility] Comment on above: Performed By: #### M 100.2000, M100.3200 #### [facility] Laboratory [address] [place], [address] Urine Cultureon 06-24-2024 URC Below infection leve l. Mixed Gram Positive Organisms Clear Fork Count 1000-10,000 MIXC Mixed contaminants. Submit a new specimen if indicated. Normal [facility] Comment on above: Performed By: #### M 100.2200 ####[facility] [address] [place], [address] OB Triage Progress Noteon OB Triage Progress Note [facility] Medical Records Department [address] [place] [address] OB Triage Progress Note 06/22/24 0038 MR#: [id number] Acct: [id number] Name: ANAI WOO Rep #: [id number] : 1995 29 From: Tenisha Reyna CNM [...] dehydrated. FHT: 135 appropriate for gestational age Masthope: no Contractions Assessment and plan: US for [...] pH 6.0 (5.0 - 8.0) Ur Specific Lester 1.030 (1.002-1.030) Urine Protein 30 H (Negative) mg/dl Urine Glucose (UA) Normal (Normal) mg/dl Urine Ketones 5 H (Negative) mg/dl Urine Occult Blood 10 H (Negative) /ul Urine Nitrite Negative (Negative) Urine Bilirubin Negative (Negative) mg/dL Urine Urobilinogen Normal (Normal) mg/dl Ur Leukocyte Esterase 25 H (Negative) /ul Fibronectin Negative Charges/Coding Multi Select Codes Visit Charges Visit Charges: 54650 Subs Hosp L3 Urinary/Genital Urinary/Genital CPT Codes: 66246-58 non-stress test Interp Assessment Plan (1) Vaginal [...] Reyna; No Primary Care Physician Signed Normal [facility] Bilirubin Test strip Ql (U)O rdered By: Tenisha Reyna on 06-21-2024 Bilirubin Ql (U) Negative Negative [facility] Fibronectinon 06-22-19 fFIBRONECTIN Negative Normal [facility] Comment on above: Performed By: #### L 205.0000 #### [facility] Laboratory [facility] [address] [place], [place], [address] fibronectinOrdered By: Tenisha Reyna on 06-21-2024 Fibronectin. (Vag fld) [Mass/Vol] Negative [facility] Fibronectin. (Vag fld) [Mass/Vol]Ordered By: Tenisha Reyna on 06-21-2024 Fibronectin Negative [facility] Genital cultureOrdered By: Prosper Reyna on 06-21-2024 Genital Culture Neisseria or beta-hemolytic Streptococcus isolated. [facility] Source specific culture Neisseria or beta-hemolytic Streptococcus isolated. [facility] Glucose Ql (U)Ordered By: Gen Reyna on 06-21-2024 Urine Glucose (UA) Normal mg/dl Normal [facility] Gram Stainon 06-21-2024 GS Gram Stain 4+ Gram positive rods Rare White Blood Cells No Gram negative diplococci Score = 0 Interpretation: 0-3 Normal, 4-6 Intermediate, 7-10 Positive BV Normal [facility] Comment on above: Performed By: #### M 100.2000, M100.3200 #### [facility] [address] [place], [address] Gram stainOrdered By: Tenisha Reyna on 06-21-2024 Microscopic observation Gram stain Nom (Unsp spec) [facility] Ketones Test strip Ql (U)Ord ered By: Tenisha Reyna on 06-21-2024 Ketones Ql (U) 5 mg/dl High Negative [facility] Nitrite Test strip Ql (U)Ord ered By: Tenisha Reyna on 06-21-2024 Nitrite Ql (U) Negative Negative [facility] OB Limited With Biometricson 06-21-2024 OB Limited With Biometrics [facility] Imaging Services [address] [place] [address] OB Limited With Biometrics MR#: [id number] Acct: [id number] Name: ANAI WOO Rep #: [id number] : 1995 F 29 From: Daniela Daniels DO PCP: Care Physician,No Primary Status: REG CLI Study: OB Limited With Biometrics Date of Exam: 06/21 Exam# [id number] Ordering Dr: Tenisha Reyna CNJose PROCEDURE: OB [...] days and HITESH of 09/13/2024. [facility]: DEAN Reyna; No Primary Care Physician Wheel Roller: Signed Normal [facility] Protein Test strip Ql (U)Ord ered By: Tenisha Reyna on 06-21-2024 Protein Ql (U) 30 mg/dl High Negative [facility] Urinalysis, Routine (Dipstic k)on 06-21-2024 BILIRUBIN URINE Negative Normal Negative [facility] Comment on above: Order Comment: COSMO PEDRAZA TO SPECIFY Performed By: #### L 400.2010 ####[facility] [address] [place], [address] Clarity (U) Clear Normal Clear [facility] Comment on above: Order Comment: COSMO PEDRAZA TO SPECIFY Performed By: #### L 400.2010 ####[facility] [address] [place], [address] Color (U) Yellow Normal Yellow [facility] Comment on above: Order Comment: COSMO CTOR TO SPECIFY Performed By: #### L 400.2010 ####[facility] [address] [place], [address] GLUCOSE, UR Normal Normal Normal [facility] Comment on above: Order Comment: COSMO CTOR TO SPECIFY Performed By: #### L 400.2010 ####[facility] [address] [place], [address] KETONE UR 5 mg/dl Abnormal Negative [facility] Comment on above: Order Comment: COSMO CTOR TO SPECIFY Performed By: #### L 400.2010 ####[facility] [address] [place], [address] LEUK ESTERASE 25 /ul Abnormal Negative [facility] Comment on above: Order Comment: COSMO CTOR TO SPECIFY Performed By: #### L 400.2010 ####[facility] [address] [place], [address] Nitrite Ql (U) Negative Normal Negative [facility] Comment on above: Order Comment: COSMO CTOR TO SPECIFY Performed By: #### L 400.2010 ####[facility] [address] [place], [address] OCCULT BLOOD-UR 10 /ul Abnormal Negative [facility] Comment on above: Order Comment: COSMO CTOR TO SPECIFY Performed By: #### L 400.2010 ####[facility] [address] [place], [address] pH UR 6.0 Normal 5.0 - 8.0 [facility] Comment on above: Order Comment: COSMO CTOR TO SPECIFY Performed By: #### L 400.2010 ####[facility] [address] [place], [address] PROT DIPSTX 30 mg/dl Abnormal Negative [facility] Comment on above: Order Comment: COSMO CTOR TO SPECIFY Performed By: #### L 400.2010 ####[facility] [address] [place], [place], [address] SP.GR. DIPSTX 1.030 Normal 1.002-1.030 [facility] Comment on above: Order Comment: COSMO CTOR TO SPECIFY Performed By: #### L 400.2010 ####[facility] [address] [place], [address] UROBILI Normal Normal Normal [facility] Comment on above: Order Comment: COSMO CTOR TO SPECIFY Performed By: #### L 400.2010 ####[facility] [address] [place], [place], [address] Urine blood detectionOrdered By: Tenisha Reyna on 06-21-2024 Urine Occult Blood 10 /ul High Negative [facility] Urine clarityOrdered By: Des Reyna on 06-21-2024 Clarity (U) Clear Clear [facility] Urine color determinationOrd ered By: Tenisha Reyna on 06-21-2024 Color (U) Yellow Yellow [facility] Urine cultureOrdered By: Des Reyna on 06-21-2024 Bacteria identified Cx Nom (U) Positive Abnormal [facility] Urine glucose detectionOrder ed By: Tenisha Reyna on 06-21-2024 Glucose Ql (U) Normal mg/dl Normal [facility] Urine leukocyte esterase det ection by dipstickOrdered By: Tenisha Reyna on 06-21-2024 Leukocyte esterase Test strip Ql (U) 25 /ul High Negative [facility] Urine pHOrdered By: Tenisha ibarra on 06-21-2024 pH (U) 6.0 [pH] 5.0 - 8.0 [facility] Urine specific gravity measu rementOrdered By: Tenisha Reyna on 06-21-2024 Specific gravity (U) [Rel density] 1.030 1.002-1.030 [facility] Urine urobilinogen measureme ntOrdered By: Tenisha Reyna on 06-21-2024 Urobilinogen Ql (U) Normal mg/dl Normal [facility] Urobilinogen Ql (U)Ordered B y: Tenisha Reyna on 06-21-2024 Urine Urobilinogen Normal mg/dl Normal [facility] Monitoring Coordinator Office Visit Reporton 06-16-2024 Monitoring Coordinator Office Visit Report [facility]'s [address], [address] [place] [address] OFFICE VISIT Date of Service: 06/16/24 MR#: [id number] Acct: [id number] Name: ANAI WOO Rep #: [id number] : 1995 Provider: Dr. Beverley Zambrano, Age/Sex: 29/F [place] [facility] [place]: Signed Intake Vital Signs 03/26/24 13:14 04/21/24 13:38 06/16/24 14:12 Height 5 ft 4 in 5 ft 4 in 5 ft 4 in Weight: 272 lb BMI 46.7 BP 125/87 H Intake Visit Reasons: 26 wk ob *do not shorten Tool Crib Lead Required: No Is patient in pain?: No [...] 1 current occupational status: employed current occupation: [employer] current occupational exposures/hazards: No pets and animals: [...] 3-4 times per week duration: 30-45 minutes/day katherine/anabaptism: None seatbelt use: always do you feel safe at home: Yes 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 Date Name GA/Weeks Outcome Route Bth Weight Infant Gen Labor Lgth Anesthesia Del Locatn Provider FOB 06/09/22 Víctor 37 live - full term 7#2 Female epidural [facility] rolo Alvarado Delivery Date: 06/09/22 Last [...] Dilation -???-???-???-???-??? (more content not included)... Normal [facility] Laboratory - Chemistry and C hemistry - challengeon 04-21-2024 Glucose Ql (U) Negative [facility] Laboratory - Urinalysison Protein Ql (U) Negative [facility] Monitoring Coordinator Office Visit Reporton 04-21-2024 Monitoring Coordinator Office Visit Report [facility] [address], [address] [place] [address] OFFICE VISIT Date of Service: 04/21/24 MR#: [id number] Acct: [id number] Name: ANAI WEBBER Rep #: [id number] : 1995 Provider: NAMITA dubose Age/Sex: 28/F [place] [facility] [place] Status: Signed Intake Vital Signs 03/26/24 13:14 04/21/24 13:38 Height 5 ft 4 in 5 ft 4 in Weight: 270 lb 6 oz 270 lb BMI 46.4 46.3 BP 118/81 H 111/76 Intake Visit Reasons: 18 wk ob Chief Complaint: 18 Week OB Tool Crib Lead Required: No Is patient in pain?: No [...] 1 current occupational status: employed current occupation: [employer] current occupational exposures/hazards: No pets and animals: [...] 3-4 times per week duration: 30-45 minutes/day katherine/anabaptism: None seatbelt use: always do you feel safe at home: Yes 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 Date Name GA/Weeks Outcome Route Bth Weight Gen Labor Lgth Anesthesia Del Locatn Provider FOB 06/09/22 Finlee 37 live - full term 7#2 Female epidural [facility] rolo Alvarado Delivery Date: 06/09/22 Last [...] -???-???-???-???-???-??? -???-???-???-?? (more content not included)... Normal [facility] Miscellaneous Lab Procedureo n 03-31-2024 MISC LAB TEST Normal [facility] Comment on above: Order Comment: Comme nts: [id number] SERUM RFTSH Receptor Antibodies Result Comment: TEST RESULTS LIMITS Thyrotropin Receptor Ab, Serum <1.10 IU/L 0.00-1.75 TESTING PERFORMED AT [facility]. ORIGINAL REPORT ON FILE IN LAB CONTAINS ADDITIONAL TEST SITE INFORMATION. Performed By: #### M 100.2000, M100.3200 #### [facility] [address] [place], [address] Absolute neutrophil countOrd ered By: Tenisha Reyna on 03-26-2024 Neutrophils (Bld) [#/Vol] 7.3 10*3/uL 2.0-7.7 [facility] Albumin to globulin ratioOrd ered By: Tenisha Reyna on 03-26-2024 Albumin/Globulin [Mass ratio] 0.8 {ratio} Low 0.9-2.4 [facility] Basophil percentageOrdered B y: Tenisha Reyna on 03-26-2024 Basophils/100 WBC (Bld) 0.4 % 0-1 [facility] Bilirubin, totalOrdered By: Tenisha Reyna on 03-26-2024 Bilirubin [Mass/Vol] 0.30 mg/dL 0.20-1.00 [facility] Comment on above: For patients on eltr ombopag therapy, use of Dimension [place] TBIL is not recommended. Blood urea nitrogen (BUN)/cr eatinine ratioOrdered By: Tenisha Reyna on 03-26-2024 Urea nitrogen/Creatinine [Mass ratio] 17.0 mg/mg 10- [facility] CBC W/Diff, Automatedon Absolute Lymph 3.23 X10 3/uL Normal 0.83-4.51 [facility] Comment on above: Performed By: #### L 509.8000, L3890.6005, BTS, L3890.6100, L506.0400, L3890.6300, L801.1541, L509.4005, L501.9520, L100.0100, L501.9985, L500.4050, L900.0098 ####[facility] [address] [place], [place], [phone]) Absolute Neut 7.3 X10 3/uL Normal 2.0-7.7 [facility] Comment on above: Performed By: #### L 509.8000, L3890.6005, BTS, L3890.6100, L506.0400, L3890.6300, L801.1541, L509.4005, L501.9520, L100.0100, L501.9985, L500.4050, L900.0098 ####[facility] [address] [place], [place], [phone] Basophils/100 WBC (Bld) 0.4 % Normal 0-1 [facility] Comment on above: Performed By: #### L 509.8000, L3890.6005, BTS, L3890.6100, L506.0400, L3890.6300, L801.1541, L509.4005, L501.9520, L100.0100, L501.9985, L500.4050, L900.0098 ####[facility] [address] [place], [address] Eosinophils/100 WBC (Bld) 1.7 % Normal 0-5 [facility] Comment on above: Performed By: #### L 509.8000, L3890.6005, BTS, L3890.6100, L506.0400, L3890.6300, L801.1541, L509.4005, L501.9520, L100.0100, L501.9985, L500.4050, L900.0098 ####[facility] [address] [place], [address] Erythrocyte distribution width (RBC) [Ratio] 15.7 % High 11.6-14.6 [facility] Comment on above: Performed By: #### L 509.8000, L3890.6005, BTS, L3890.6100, L506.0400, L3890.6300, L801.1541, L509.4005, L501.9520, L100.0100, L501.9985, L500.4050, L900.0098 ####[facility] [address] [place], [place], [phone]) Hematocrit (Bld) [Volume fraction] 39.8 % Normal 37-47 [facility] Comment on above: Performed By: #### L 509.8000, L3890.6005, BTS, L3890.6100, L506.0400, L3890.6300, L801.1541, L509.4005, L501.9520, L100.0100, L501.9985, L500.4050, L900.0098 ####[facility] [address] [place], [place], [phone](580) Hemoglobin (Bld) [Mass/Vol] 12.7 g/dL Normal 12.0-15.0 [facility] Comment on above: Performed By: #### L 509.8000, L3890.6005, BTS, L3890.6100, L506.0400, L3890.6300, L801.1541, L509.4005, L501.9520, L100.0100, L501.9985, L500.4050, L900.0098 ####[facility] [address] [place], [place], [id number] IG% 0.300 Normal 0.0-0.9 [facility] Comment on above: Result Comment: IG% - Immature Granulocytes (promyelocytes, myelocytes and metamyelocytes) > 1% indicates that a LEFT SHIFT is Present. Performed By: #### L 509.8000, L3890.6005, BTS, L3890.6100, L506.0400, L3890.6300, L801.1541, L509.4005, L501.9520, L100.0100, L501.9985, L500.4050, L900.0098 ####[facility] [address] [place], [address] Lymphocytes/100 WBC (Bld) 28.1 % Normal 19-41 [facility] Comment on above: Performed By: #### L 509.8000, L3890.6005, BTS, L3890.6100, L506.0400, L3890.6300, L801.1541, L509.4005, L501.9520, L100.0100, L501.9985, L500.4050, L900.0098 ####[facility] [address] [place], [address] MCH (RBC) [Entitic mass] 27.4 pg Normal 27.0-32.0 [facility] Comment on above: Performed By: #### L 509.8000, L3890.6005, BTS, L3890.6100, L506.0400, L3890.6300, L801.1541, L509.4005, L501.9520, L100.0100, L501.9985, L500.4050, L900.0098 ####[facility] [address] [place], [address] MCHC (RBC) [Mass/Vol] 31.9 g/dL Low 32-36 [facility] Comment on above: Performed By: #### L 509.8000, L3890.6005, BTS, L3890.6100, L506.0400, L3890.6300, L801.1541, L509.4005, L501.9520, L100.0100, L501.9985, L500.4050, L900.0098 ####[facility] [address] [place], [address] MCV (RBC) [Entitic vol] 86.0 fL Normal 81-99 [facility] Comment on above: Performed By: #### L 509.8000, L3890.6005, BTS, L3890.6100, L506.0400, L3890.6300, L801.1541, L509.4005, L501.9520, L100.0100, L501.9985, L500.4050, L900.0098 ####[facility] [address] [place], [address] Monocytes/100 WBC (Bld) 5.8 % Normal 0-10 [facility] Comment on above: Performed By: #### L 509.8000, L3890.6005, BTS, L3890.6100, L506.0400, L3890.6300, L801.1541, L509.4005, L501.9520, L100.0100, L501.9985, L500.4050, L900.0098 ####[facility] [address] [place], [address] Neutrophils/100 WBC (Bld) 63.7 % Normal 47-70 [facility] Comment on above: Performed By: #### L 509.8000, L3890.6005, BTS, L3890.6100, L506.0400, L3890.6300, L801.1541, L509.4005, L501.9520, L100.0100, L501.9985, L500.4050, L900.0098 ####[facility] [address] [place], [place], [phone]) Nucleated RBC (Bld) [#/Vol] 0 10*3/uL Normal 0-5 [facility] Comment on above: Performed By: #### L 509.8000, L3890.6005, BTS, L3890.6100, L506.0400, L3890.6300, L801.1541, L509.4005, L501.9520, L100.0100, L501.9985, L500.4050, L900.0098 ####[facility] [address] [place], [phone]) Platelet mean volume (Bld) [Entitic vol] 10.2 fL Normal 6.2-12.0 [facility] Comment on above: Performed By: #### L 509.8000, L3890.6005, BTS, L3890.6100, L506.0400, L3890.6300, L801.1541, L509.4005, L501.9520, L100.0100, L501.9985, L500.4050, L900.0098 ####[facility] [address] [place], [phone]) Platelets (Bld) [#/Vol] 270 10*3/uL Normal 150-450 [facility] Comment on above: Performed By: #### L 509.8000, L3890.6005, BTS, L3890.6100, L506.0400, L3890.6300, L801.1541, L509.4005, L501.9520, L100.0100, L501.9985, L500.4050, L900.0098 ####[facility] [address] [place], [address] RBC (Bld) [#/Vol] 4.63 10*6/uL Normal 4.2-5.4 [facility] Comment on above: Performed By: #### L 509.8000, L3890.6005, BTS, L3890.6100, L506.0400, L3890.6300, L801.1541, L509.4005, L501.9520, L100.0100, L501.9985, L500.4050, L900.0098 ####[facility] [address] [place], [address] RDW SD 49.0 fl High 35.1-43.9 [facility] Comment on above: Performed By: #### L 509.8000, L3890.6005, BTS, L3890.6100, L506.0400, L3890.6300, L801.1541, L509.4005, L501.9520, L100.0100, L501.9985, L500.4050, L900.0098 ####[facility] [address] [place], [address] WBC (Bld) [#/Vol] 11.5 10*3/uL High 4.4-11.0 [facility] Comment on above: Performed By: #### L 509.8000, L3890.6005, BTS, L3890.6100, L506.0400, L3890.6300, L801.1541, L509.4005, L501.9520, L100.0100, L501.9985, L500.4050, L900.0098 ####[facility] [address] [facility] [place], [address] Carbon dioxide measurementOr dered By: Tenisha Reyna on 03-26-2024 CO2 [Moles/Vol] 27.0 mmol/L 21.0-32.0 [facility] Chloride measurementOrdered By: Tenisha Reyna on 03-26-2024 Chloride [Moles/Vol] 105 mmol/L 98-107 [facility] Comprehensive Metabolic Prof ilon 03-26-2024 Albumin [Mass/Vol] 3.0 g/dL Low 3.2-5.0 [facility] Comment on above: Order Comment: [id number] 8 Performed By: #### L 509.8000, L3890.6005, BTS, L3890.6100, L506.0400, L3890.6300, L801.1541, L509.4005, L501.9520, L100.0100, L501.9985, L500.4050, L900.0098 ####[facility] [address] [place], [place], [id number] Albumin/Globulin [Mass ratio] 0.8 {ratio} Low 0.9-2.4 [facility] Comment on above: Order Comment: [id number] 8 Performed By: #### L 509.8000, L3890.6005, BTS, L3890.6100, L506.0400, L3890.6300, L801.1541, L509.4005, L501.9520, L100.0100, L501.9985, L500.4050, L900.0098 ####[facility] [address] [place], [place], [id number] ALK P 81 U/L Normal 45-117 [facility] Comment on above: Order Comment: [id number] 8 Performed By: #### L 509.8000, L3890.6005, BTS, L3890.6100, L506.0400, L3890.6300, L801.1541, L509.4005, L501.9520, L100.0100, L501.9985, L500.4050, L900.0098 ####[facility] [address] [place], [place], [id number] ALT [Catalytic activity/Vol] 16 U/L Normal 13-56 [facility] Comment on above: Order Comment: 13170 8 Performed By: #### L 509.8000, L3890.6005, BTS, L3890.6100, L506.0400, L3890.6300, L801.1541, L509.4005, L501.9520, L100.0100, L501.9985, L500.4050, L900.0098 ####[facility] [address] [place], [address] AST [Catalytic activity/Vol] 10 U/L Low 15-37 [facility] Comment on above: Order Comment: 22854 8 Performed By: #### L 509.8000, L3890.6005, BTS, L3890.6100, L506.0400, L3890.6300, L801.1541, L509.4005, L501.9520, L100.0100, L501.9985, L500.4050, L900.0098 ####[facility] [address] [place], [address] Bilirubin [Mass/Vol] 0.30 mg/dL Normal 0.20-1.00 [facility] Comment on above: Order Comment: 37789 8 Result Comment: For patients on eltrombopag therapy, use of Dimension [place] TBIL is not recommended. Performed By: #### L 509.8000, L3890.6005, BTS, L3890.6100, L506.0400, L3890.6300, L801.1541, L509.4005, L501.9520, L100.0100, L501.9985, L500.4050, L900.0098 ####[facility] [address] [place], [address] BUN/CRE 17.0 RATIO Normal 10-20 [facility] Comment on above: Order Comment: 29737 8 Performed By: #### L 509.8000, L3890.6005, BTS, L3890.6100, L506.0400, L3890.6300, L801.1541, L509.4005, L501.9520, L100.0100, L501.9985, L500.4050, L900.0098 ####[facility] [address] [place], [place], [phone](533) CA,Total 9.3 mg/dL Normal 8.5-10.1 [facility] Comment on above: Order Comment: 40999 8 Performed By: #### L 509.8000, L3890.6005, BTS, L3890.6100, L506.0400, L3890.6300, L801.1541, L509.4005, L501.9520, L100.0100, L501.9985, L500.4050, L900.0098 ####[facility] [address] [place], [place], [phone] Chloride [Moles/Vol] 105 mmol/L Normal 98-107 [facility] Comment on above: Order Comment: 58637 8 Performed By: #### L 509.8000, L3890.6005, BTS, L3890.6100, L506.0400, L3890.6300, L801.1541, L509.4005, L501.9520, L100.0100, L501.9985, L500.4050, L900.0098 ####[facility] [address] [place], [place], [phone](272) CO2 [Moles/Vol] 27.0 mmol/L Normal 21.0-32.0 [facility] Comment on above: Order Comment: 96813 8 Performed By: #### L 509.8000, L3890.6005, BTS, L3890.6100, L506.0400, L3890.6300, L801.1541, L509.4005, L501.9520, L100.0100, L501.9985, L500.4050, L900.0098 ####[facility] [address] [place], [address] Creatinine [Mass/Vol] 0.53 mg/dL Low 0.55-1.02 [facility] Comment on above: Order Comment: 92764 8 Result Comment: The validity of the calculated GFR GFRAA in patients over 70 years has not been determined. Clinical correlation is essential. Performed By: #### L 509.8000, L3890.6005, BTS, L3890.6100, L506.0400, L3890.6300, L801.1541, L509.4005, L501.9520, L100.0100, L501.9985, L500.4050, L900.0098 ####[facility] [address] [place], [address] EST GFR - AA 174 mL/min Normal >60 [facility] Comment on above: Order Comment: 63376 8 Result Comment: Afri can [place] GFR Calc Performed By: #### L 509.8000, L3890.6005, BTS, L3890.6100, L506.0400, L3890.6300, L801.1541, L509.4005, L501.9520, L100.0100, L501.9985, L500.4050, L900.0098 ####[facility] [address] [place], [place], [id number] GAP 6 Normal 5-15 [facility] Comment on above: Order Comment: 66123 8 Performed By: #### L 509.8000, L3890.6005, BTS, L3890.6100, L506.0400, L3890.6300, L801.1541, L509.4005, L501.9520, L100.0100, L501.9985, L500.4050, L900.0098 ####[facility] [address] [place], [address] GFR/1.73 sq M.predicted among non-blacks MDRD (S/P/Bld) [Vol rate/Area] 143 mL/min/{1.73_m2} Normal >60 [facility] Comment on above: Order Comment: 68786 8 Result Comment: Non- GFR Calc Performed By: #### L 509.8000, L3890.6005, BTS, L3890.6100, L506.0400, L3890.6300, L801.1541, L509.4005, L501.9520, L100.0100, L501.9985, L500.4050, L900.0098 ####[facility] [address] [place], [address] Globulin (S) [Mass/Vol] 3.9 g/dL Normal 2.2-4.2 [facility] Comment on above: Order Comment: 92775 8 Performed By: #### L 509.8000, L3890.6005, BTS, L3890.6100, L506.0400, L3890.6300, L801.1541, L509.4005, L501.9520, L100.0100, L501.9985, L500.4050, L900.0098 ####[facility] [address] [place], [address] Glucose [Mass/Vol] 81 mg/dL Normal 74-106 [facility] Comment on above: Order Comment: 96200 8 Performed By: #### L 509.8000, L3890.6005, BTS, L3890.6100, L506.0400, L3890.6300, L801.1541, L509.4005, L501.9520, L100.0100, L501.9985, L500.4050, L900.0098 ####[facility] [address] [place], [address] Potassium [Moles/Vol] 3.7 mmol/L Normal 3.5-5.1 [facility] Comment on above: Order Comment: 04572 8 Performed By: #### L 509.8000, L3890.6005, BTS, L3890.6100, L506.0400, L3890.6300, L801.1541, L509.4005, L501.9520, L100.0100, L501.9985, L500.4050, L900.0098 ####[facility] [address] [place], [place], [phone] Sodium [Moles/Vol] 138 mmol/L Normal 136-145 [facility] Comment on above: Order Comment: 20369 8 Performed By: #### L 509.8000, L3890.6005, BTS, L3890.6100, L506.0400, L3890.6300, L801.1541, L509.4005, L501.9520, L100.0100, L501.9985, L500.4050, L900.0098 ####[facility] [address] [place], [place], [id number] T PROT 6.9 g/dL Normal 6.4-8.2 [facility] Comment on above: Order Comment: 50337 8 Performed By: #### L 509.8000, L3890.6005, BTS, L3890.6100, L506.0400, L3890.6300, L801.1541, L509.4005, L501.9520, L100.0100, L501.9985, L500.4050, L900.0098 ####[facility] [address] [place], [place], [id number] Urea nitrogen [Mass/Vol] 9 mg/dL Normal 7-18 [facility] Comment on above: Order Comment: 32293 8 Performed By: #### L 509.8000, L3890.6005, BTS, L3890.6100, L506.0400, L3890.6300, L801.1541, L509.4005, L501.9520, L100.0100, L501.9985, L500.4050, L900.0098 ####[facility] [address] [place], [place], [phone] Direct serum free thyroxine (FT4) measurementOrdered By: Tenisha Reyna on 03-26-2024 Free T4 [Mass/Vol] 0.95 ng/dL 0.76-1.46 [facility] Eosinophil percentageOrdered By: Tenisha Reyna on 03-26-2024 Eosinophils/100 WBC (Bld) 1.7 % 0-5 [facility] Erythrocyte distribution wid th ratioOrdered By: Tenisha Reyna on 03-26-2024 Erythrocyte distribution width (RBC) [Ratio] 15.7 % High 11.6-14.6 [facility] Erythrocyte distribution wid th standard deviationOrdered By: Tenisha Reyna on 03-26-2024 Erythrocyte distribution width (RBC) [Entitic vol] 49.0 fL High 35.1-43.9 [facility] Estimated glomerular filtrat ion rate (GFR) AmericanOrdered By: Tenisha Reyna on 03-26-2024 Estimated GFR (MDRD) Amer 174 mL/min >60 [facility] Comment on above: GFR Calc Glomerular filtration rate ( GFR) estimationOrdered By: Tenisha Reyna on 03-26-2024 Estimated GFR (MDRD) Non-Af Amer 143 mL/min >60 [facility] Comment on above: Non- GFR Calc Glucose measurementOrdered B y: Tenisha Reyna on 03-26-2024 Glucose [Mass/Vol] 81 mg/dL 74-106 [facility] HIV - WCHon 03-26-2024 HIV Non-Reactive Normal Nonreactive [facility] Comment on above: Order Comment: Reaso n for Exam: Performed By: #### L 509.8000, L3890.6005, BTS, L3890.6100, L506.0400, L3890.6300, L801.1541, L509.4005, L501.9520, L100.0100, L501.9985, L500.4050, L900.0098 ####[facility] [address] [place], [address] HIV 1+2 Ab+HIV1 p24 Ag IA Ql Ordered By: Tenisha Reyna on 03-26-2024 HIV (1&2) Antibody Non-Reactive Nonreactive [facility] Hematocrit Auto (Bld) [Volum e fraction]Ordered By: Tenisha Reyna on 03-26-2024 Hematocrit (Bld) [Volume fraction] 39.8 % 37-47 [facility] Hemoglobin A1con 03-26-2024 HbA1c (Bld) [Mass fraction] 5.0 % Normal 3.8-5.6 [facility] Comment on above: Result Comment: Norm al < 5.7 % Prediabetic 5.7 - 6.4 % Diabetic >or= 6.5 % Please note range changes. Performed By: #### L 509.8000, L3890.6005, BTS, L3890.6100, L506.0400, L3890.6300, L801.1541, L509.4005, L501.9520, L100.0100, L501.9985, L500.4050, L900.0098 ####[facility] [address] [place], [address] Hemoglobin A1c percentageOrd ered By: Tenisha Reyna on 03-26-2024 HbA1c (Bld) [Mass fraction] 5.0 % 3.8-5.6 [facility] Comment on above: Normal < 5.7 % Predi abetic 5.7 - 6.4 % Diabetic >or= 6.5 % Please note range changes. Hemoglobin measurementOrdere d By: Tenisha Reyna on 03-26-2024 Hemoglobin (Bld) [Mass/Vol] 12.7 g/dL 12.0-15.0 [facility] Hepatitis B Surface Antigeno n 03-26-2024 HEP B Surf Ag Non-Reactive Normal Nonreactive [facility] Comment on above: Order Comment: Reaso n for Exam: Performed By: #### L 509.8000, L3890.6005, BTS, L3890.6100, L506.0400, L3890.6300, L801.1541, L509.4005, L501.9520, L100.0100, L501.9985, L500.4050, L900.0098 ####[facility] [address], [place], [phone] Hepatitis B surface antigen detectionOrdered By: Tenisha Reyna on 03-26-2024 Hepatitis B Surface Antigen Non-Reactive Nonreactive [facility] Hepatitis C Antibodyon 03-26 Hepatitis C AB Non-Reactive Normal Nonreactive [facility] Comment on above: Order Comment: Reaso n for Exam: Result Comment: Non Reactive: < 0.8 Equivocal: >/= 0.8 to < 1.0 Reactive: >/= 1.0 The [facility] requires that a reactive/equivocal HCV antibody result be sent out for confirmation. HCV Quant by PCR testing. Performed By: #### M 100.2000, M100.3200 #### [facility] [address], [place], [id number] Hepatitis C virus antibody a ssayOrdered By: Tenisha Reyna on 03-26-2024 Hepatitis C Antibody Non-Reactive Nonreactive [facility] Comment on above: Non Reactive: < 0.8 Equivocal: >/= 0.8 to < 1.0 Reactive: >/= 1.0The [facility] requires that a reactive/equivocal HCV antibody result be sent out for confirmation. HCV Quant by PCR testing. Immature granulocytes/100 WB C Auto (Bld)Ordered By: Tenisha Reyna on 03-26-2024 Immature granulocytes/100 WBC (Bld) 0.300 % 0.0-0.9 [facility] Comment on above: IG% - Immature Granu locytes (promyelocytes, myelocytes and metamyelocytes) > 1% indicates that a LEFT SHIFT is Present. L509.8000on 03-26-2024 Syphilis Abs Non-Reactive Normal [facility] Comment on above: Order Comment: Reaso n for Exam: Performed By: #### L 509.8000, L3890.6005, BTS, L3890.6100, L506.0400, L3890.6300, L801.1541, L509.4005, L501.9520, L100.0100, L501.9985, L500.4050, L900.0098 ####[facility] [address] [place], [address] Laboratory - Chemistry and C hemistry - challengeOrdered By: Tenisha Reyna on 03-26-2024 AST [Catalytic activity/Vol] 10 U/L Low 15-37 [facility] Laboratory - Chemistry and C hemistry - challengeon 03-26-2024 Glucose Ql (U) Negative [facility] Laboratory - Urinalysison Protein Ql (U) Negative [facility] Lymphocytes Auto (Unsp spec) [#/Vol]Ordered By: Tenisha Reyna on 03-26-2024 Lymphocytes (Bld) [#/Vol] 3.23 10*3/uL 0.83-4.51 [facility] Lymphocytes/100 WBC Auto (Un sp spec)Ordered By: Tenisha Reyna on 03-26-2024 Lymphocytes/100 WBC (Bld) 28.1 % 19-41 [facility] MCV (mean corpuscular volume ) determinationOrdered By: Tenisha Reyna on 03-26-2024 MCV (RBC) [Entitic vol] 86.0 fL 81-99 [facility] Mean corpuscular hemoglobin (MCH) determinationOrdered By: Tenisha Reyna on 03-26-2024 MCH (RBC) [Entitic mass] 27.4 pg 27.0-32.0 [facility] Mean corpuscular hemoglobin concentration (MCHC) determinationOrdered By: Tenisha Reyna on 03-26-2024 MCHC (RBC) [Mass/Vol] 31.9 g/dL Low 32-36 [facility] Mean platelet volume determi nationOrdered By: Tenisha Reyna on 03-26-2024 Platelet mean volume (Bld) [Entitic vol] 10.2 fL 6.2-12.0 [facility] Miscellaneous procedureOrder ed By: Tenisha Reyna on 03-26-2024 Miscellaneous Test See comment [facility] Comment on above: TEST RESULTS LIMITST hyrotropin Receptor Ab,Serum <1.10 IU/L 0.00-1.75 [facility]INAL REPORT ON FILE IN LAB CONTAINS ADDITIONAL TEST SITE INFORMATION. Miscellaneous Test Comment SEE SCANNED REPORT [facility] Monocyte percentageOrdered B y: Tenisha Reyna on 03-26-2024 Monocytes/100 WBC (Bld) 5.8 % 0-10 [facility] NATERAon 03-26-2024 NATURA SEE SCANNED REPORT Normal [facility] Comment on above: Order Comment: Comme nts: NIPT w/Gender Performed By: #### L 509.8000, L3890.6005, BTS, L3890.6100, L506.0400, L3890.6300, L801.1541, L509.4005, L501.9520, L100.0100, L501.9985, L500.4050, L900.0098 ####[facility] [address] [place], [address] Neutrophil percentageOrdered By: Tenisha Reyna on 03-26-2024 Neutrophils/100 WBC (Bld) 63.7 % 47-70 [facility] Nucleated red blood cell per centageOrdered By: Tenisha Reyna on 03-26-2024 Nucleated RBC/100 WBC (Bld) [Ratio] 0 % 0-5 [facility] Monitoring Coordinator Office Visit Reporton 03-26-2024 Monitoring Coordinator Office Visit Report [facility] [address], [address] [place] [address] OFFICE VISIT Date of Service: 03/26/24 MR#: [id number] Acct: [id number] Name: ANAI WEBBER Rep #: [id number] : 1995 Provider: Dr. 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 Date Name GA/Weeks Outcome Route Bth Weight Gen Labor Lgth Anesthesia Del Locatn Provider FOB 06/09/22 Finlee 37 live - full term 7#2 Female epidural [facility] Ajit Alvarado Delivery Date: 06/09/22 Last Updated [...] -???-???-???-???-???-??? -???-???-???-???- (more content not included)... Normal [facility] Platelet countOrdered By: Gen Reyna on 03-26-2024 Platelets (Bld) [#/Vol] 270 10*3/uL 150-450 [facility] Potassium measurementOrdered By: Tenisha Reyna on 03-26-2024 Potassium [Moles/Vol] 3.7 mmol/L 3.5-5.1 [facility] RBC Auto (Bld) [#/Vol]Ordere d By: Tenisha Reyna on 03-26-2024 RBC (Bld) [#/Vol] 4.63 10*6/uL 4.2-5.4 [facility] Rubella IgGon 03-26-2024 Rubella IgG Equiv Normal Nonreactive [facility] Comment on above: Order Comment: Reaso n for Exam: Result Comment: Anti body Results Interpretation of Immune Status Non Reactive Presumed Non-Immune Equivocal Equivocal Reactive Presumed Immune Performed By: #### L 509.8000, L3890.6005, BTS, L3890.6100, L506.0400, L3890.6300, L801.1541, L509.4005, L501.9520, L100.0100, L501.9985, L500.4050, L900.0098 ####[facility] [address] [place], [place], [id number] Rubella immune status IgGOrd ered By: Tenisha Reyna on 03-26-2024 Rubella IgG Antibody Equiv Nonreactive [facility] Comment on above: Antibody Results Int erpretation of Immune Status Non Reactive Presumed Non-Immune Equivocal Equivocal Reactive Presumed Immune Serum anion gap measurementO rdered By: Tenisha Reyna on 03-26-2024 Anion gap [Moles/Vol] 6 mmol/L 5-15 [facility] Serum globulin measurementOr dered By: Tenisha Reyna on 03-26-2024 Globulin (S) [Mass/Vol] 3.9 g/dL 2.2-4.2 [facility] Serum or plasma alanine aceves otransferase (ALT) measurementOrdered By: Tenisha Reyna on 03-26-2024 ALT [Catalytic activity/Vol] 16 U/L 13-56 [facility] Serum or plasma albumin andi urement (mass/volume)Ordered By: Tenisha Reyna on 03-26-2024 Albumin [Mass/Vol] 3.0 g/dL Low 3.2-5.0 [facility] Serum or plasma alkaline osvaldo sphatase measurementOrdered By: Tenisha Reyna on 03-26-2024 ALP [Catalytic activity/Vol] 81 U/L 45-117 [facility] Serum or plasma calcium andi urement (mass/volume)Ordered By: Tenisha Reyna on 03-26-2024 Calcium [Mass/Vol] 9.3 mg/dL 8.5-10.1 [facility] Serum or plasma creatinine m easurement (mass/volume)Ordered By: Tenisha Reyna on 03-26-2024 Creatinine [Mass/Vol] 0.53 mg/dL Low 0.55-1.02 [facility] Comment on above: The validity of the calculated GFR & GFRAA in patients over 70 years has not been determined. Clinical correlation is essential. Serum or plasma urea nitroge n measurement (mass/volume)Ordered By: Tenisha Reyna on 03-26-2024 Urea nitrogen [Mass/Vol] 9 mg/dL 7-18 [facility] Sodium levelOrdered By: Camila Reyna on 03-26-2024 Sodium [Moles/Vol] 138 mmol/L 136-145 [facility] T4 Free Directon 03-26-2024 T4 FREE DIRECT 0.95 ng/dL Normal 0.76-1.46 [facility] Comment on above: Order Comment: [id number] Performed By: #### L 509.8000, L3890.6005, BTS, L3890.6100, L506.0400, L3890.6300, L801.1541, L509.4005, L501.9520, L100.0100, L501.9985, L500.4050, L900.0098 ####[facility] [id number] [place], [place], [id number] TSH QnOrdered By: Tenisha paris on 03-26-2024 Thyroid Stimulating Hormone (TSH) 0.648 uIU/mL 0.358-3.740 [facility] Thyroid Stim Hormone (TSH)on 03-26-2024 TSH 0.648 uIU/mL Normal 0.358-3.740 [facility] Comment on above: Order Comment: [id number] Performed By: #### L 509.8000, L3890.6005, BTS, L3890.6100, L506.0400, L3890.6300, L801.1541, L509.4005, L501.9520, L100.0100, L501.9985, L500.4050, L900.0098 ####[facility] [address] [place], [address] Total proteinOrdered By: Des Reyna on 03-26-2024 Protein [Mass/Vol] 6.9 g/dL 6.4-8.2 [facility] Treponema sp Ab Ql (S)Ordere d By: Tenisha Reyna on 03-26-2024 Syphilis Total Antibody Non-Reactive [facility] Type AND Screenon 03-26-2024 Ab SCREEN GEL Negative Normal [facility] Comment on above: Order Comment: PN Performed By: #### L 509.8000, L3890.6005, BTS, L3890.6100, L506.0400, L3890.6300, L801.1541, L509.4005, L501.9520, L100.0100, L501.9985, L500.4050, L900.0098 ####[facility] [address] [place], [place], [id number] ABO and Rh group Nom (Bld) Blood group O Rh(D) positive Normal [facility] Comment on above: Order Comment: PN Performed By: #### L 509.8000, L3890.6005, BTS, L3890.6100, L506.0400, L3890.6300, L801.1541, L509.4005, L501.9520, L100.0100, L501.9985, L500.4050, L900.0098 ####[facility] [address] [place], [address] White blood cell (WBC) count Ordered By: Tenisha Reyna on 03-26-2024 WBC (Bld) [#/Vol] 11.5 10*3/uL High 4.4-11.0 [facility] SARS-COV-2 RAPID AG (WIC)on 03-10-2024 SARS-CoV-2 (COVID-19) RNA JADYN+probe Ql (Unsp spec) Not detected Normal NOT DETECTED [facility] Comment on above: Result Comment: [...] By: #### C COVAG ####[place] [address] NARRATIVE This test was perfor med using lateral flow immunoassay. This test does not differentiate between SARS-CoV and SARS-CoV2. Normal [facility] Comment on above: Performed By: #### C COVAG ####Testing performed at [place] [id number] SARS-COV-2 RAPID ANTIGEN (CL INIC ONLY)on 03-10-2024 SARS-CoV-2 (COVID-19) RNA JADYN+probe Ql (Unsp spec) This test was performed using lateral flow immunoassay. This test does not differentiate between SARS-CoV and SARS-CoV2. [facility] SARS-CoV-2 (COVID-19) RNA NA A+probe Ql (Unsp spec)on 03-10-2024 SARS-CoV-2 (COVID-19) Ag IA.rapid Ql (Resp) Not detected NOT DETECTED [facility] Comment on above: Negative results malka [...] clinical signs and symptoms consistent with COVID-19. [facility] Chlamydia/GC JADYN aptimaon CHLAMY,NUC ACID Negative Normal Negative [facility] Comment on above: Performed By: #### M 100.2200, L501.0900, L7000.1800 ####[facility] [address] [place], [place], [id number] GC BY NUC ACID Negative Normal Negative [facility] Comment on above: Result Comment: Perf ormed at: =G - [facility] [address] [id number] Land Classifier: Lizz Franz MD, Phone: [phone] Performed By: #### M 100.2200, L501.0900, L7000.1800 ####[facility] [address] [place], [address] Urine Cultureon 02-21-2024 URC Below infection leve l. Mixed Gram Positive Organisms [place] Count 1000-10,000 MIXC Mixed contaminants. Submit a new specimen if indicated. Normal [facility] Comment on above: Performed By: #### M 100.2200, L501.0900, L7000.1800 #### [facility] [address] [place], [place], [id number] Monitoring Coordinator Office Visit Reporton 02-18-2024 Monitoring Coordinator Office Visit Report [facility]'[address], [address] [place] [address] OFFICE VISIT Date of Service: 02/18/24 MR#: [id number] Acct: [id number] Name: ANAI WEBBER Rep #: [id number] : 1995 Provider: DEAN Massey ams Age/Sex: 28/F [place] [facility] [place] Status: Signed Intake Vital Signs 01/21/24 15:31 02/18/24 13:06 Height 5 ft 4 in 5 ft 4 in Weight: 267 lb 2 oz BMI 45.8 BP 121/82 H Intake Visit Reasons: NOB LMP 12/21 Tool Crib Lead Required: No Is patient in pain?: No [...] No current occupational status: employed current occupation: [employer] current occupational exposures/hazards: No pets and animals: [...] 3-4 times per week duration: 30-45 minutes/day katherine/anabaptism: None seatbelt use: always do you feel safe at home: Yes 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 Date Name GA/Weeks Outcome Route Bth Weight Gen Labor Lgth Anesthesia Del Locatn Provider FOB 06/09/22 Finlee 37 live - full term 7#2 Female epidural [facility] rolo Alvarado Delivery Date: 06/09/22 Last Updated by: Sandy Encinas see problem list for complications, and 37 srom girl SM. HPI NOB LMP 12/21 Details: NAAI WEBBER is a 28 year old who [...] Date -???-? (more content not included)... Normal [facility] Protein+Creatinine Ratio,Uri neon 02-18-2024 PROT:CRE RATIO 200 mg/g CRE Normal 0-200 [facility] Comment on above: Performed By: #### M 100.2200, L501.0900, L7000.1800 #### [facility] [address] [place], [address] Protein (U) [Mass/Vol] 49.7 mg/dL High <11.9 [facility] Comment on above: Performed By: #### M 100.2200, L501.0900, L7000.1800 #### [facility] [address] [place], [address] UR CREAT 249.00 mg/dL Normal NO RANGE EST. [facility] Comment on above: Performed By: #### M 100.2200, L501.0900, L7000.1800 #### [facility] [address] [place], [address] C REACTIVE PROTEINon 024 CRP [Mass/Vol] 8.3 mg/L 0 - 10 MG/L [facility] CRP [Mass/Vol] 8.3 mg/L Normal 0-10 [facility] Comment on above: Performed By: #### U MAC, UMIC #### Testing performed at [address] [address] CBCon 10-14-2023 Band form neutrophils/100 WBC (Bld) 2 % Normal 0.0-2.0 [facility] Comment on above: Performed By: #### U MAC, UMIC #### Testing performed at [address] [address] DTYPE MANUAL DIFF Normal [facility] Comment on above: Performed By: #### U MAC, UMIC #### Testing performed at [address] [address] Lymphocytes/100 WBC (Bld) 19 % Low 20.0-55.0 [facility] Comment on above: Performed By: #### U MAC, UMIC #### Testing performed at [address] [address] Monocytes/100 WBC (Bld) 5 % Normal 0.0-10.0 [facility] Comment on above: Performed By: #### U MAC, UMIC #### Testing performed at [address] [address] Neutrophils/100 WBC (Bld) 74 % Normal 37.0-75.0 [facility] Comment on above: Performed By: #### U MAC, UMIC #### Testing performed at [address] [address] PLATELET COMMENT ADEQUATE Normal [facility] Comment on above: Performed By: #### U MAC, UMIC #### Testing performed at [address] [address] RBC morphology finding Nom (Bld) NORMAL Normal [facility] Comment on above: Performed By: #### U MAC, UMIC #### Testing performed at [address] [address] Erythrocyte distribution width (RBC) [Ratio] 14.7 % High 11.5-14.5 [facility] Comment on above: Performed By: #### U MAC, UMIC #### Testing performed at [address] [address] Hematocrit (Bld) [Volume fraction] 34.7 % Low 36.0-48.0 [facility] Comment on above: Performed By: #### U MAC, UMIC #### Testing performed at [address] [address] Hemoglobin (Bld) [Mass/Vol] 11.8 g/dL Low 12.0-16.0 [facility] Comment on above: Performed By: #### U MAC, UMIC #### Testing performed at [address] [address] MCH (RBC) [Entitic mass] 28.2 pg Normal 26.0-35.0 [facility] Comment on above: Performed By: #### U MAC, UMIC #### Testing performed at [address] [address] MCHC (RBC) [Mass/Vol] 33.8 g/dL Normal 27.0-37.0 [facility] Comment on above: Performed By: #### U MAC, UMIC #### Testing performed at [address] [address] MCV (RBC) [Entitic vol] 83.2 fL Normal 80.0-100.0 [facility] Comment on above: Performed By: #### U MAC, UMIC #### Testing performed at [address] [address] Platelet mean volume (Bld) [Entitic vol] 7.7 fL Normal 7.4-11.0 [facility] Comment on above: Performed By: #### U MAC, UMIC #### Testing performed at [address] [address] Platelets (Bld) [#/Vol] 335 10*3/uL Normal 130-400 [facility] Comment on above: Performed By: #### U MAC, UMIC #### Testing performed at [address] [address] RBC (Bld) [#/Vol] 4.17 10*6/uL Normal 4.0-5.4 [facility] Comment on above: Performed By: #### U MAC, UMIC #### Testing performed at [address] [address] WBC (Bld) [#/Vol] 16.3 10*3/uL High 3.6-11.0 [facility] Comment on above: Performed By: #### U MAC, UMIC #### Testing performed at [address] [address] CBC, EDIF, PLATELETon 2023 Differential cell count method Nom (Bld) MANUAL DIFF % [facility] Erythrocyte distribution width (RBC) [Ratio] 14.7 % High 11.5 - 14.5 % [facility] Hematocrit (Bld) [Volume fraction] 34.7 % Low 36.0 - 48.0 % [facility] Hemoglobin (Bld) [Mass/Vol] 11.8 g/dL Low [facility] Immature granulocytes/100 WBC (Bld) 2 % 0.0 - 2.0 % [facility] Interpretation and review of laboratory results Abnormal [facility] Lymphocytes/100 WBC (Bld) 19 % Low 20.0 - 55.0 % [facility] MCH (RBC) [Entitic mass] 28.2 pg 26.0 - 35.0 PG [facility] MCHC (RBC) [Mass/Vol] 33.8 g/dL [facility] MCV (RBC) [Entitic vol] 83.2 fL [facility] Monocytes/100 WBC (Bld) 5 % 0.0 - 10.0 % [facility] Morphology Dillan (Bld) [Interp] NORMAL [facility] Neutrophils/100 WBC (Bld) 74 % 37.0 - 75.0 % [facility] Platelet mean volume (Bld) [Entitic vol] 7.7 fL [facility] Platelet morphology finding Nom (Bld) ADEQUATE [facility] Platelets (Bld) [#/Vol] 335 10*3/uL 130 - 400 10*3/uL [facility] RBC (Bld) [#/Vol] 4.17 10*6/uL 4.0 - 5.4 10*6/uL [facility] WBC (Bld) [#/Vol] 16.3 10*3/uL High 3.6 - 11.0 10*3/uL [facility] ESRon 10-14-2023 ESR (Bld) [Velocity] 33 mm/h High 0-15 [facility] Comment on above: Performed By: #### E SR, MG, CREACT, ACBC, RENF, LIVR ####Testing performed at [place] [id number] [place] [address] HEPATIC FUNCTION PANELon Albumin [Mass/Vol] 4.0 g/dL [facility] ALP [Catalytic activity/Vol] 63 U/L [facility] ALT [Catalytic activity/Vol] 76 U/L High NINF [facility] AST [Catalytic activity/Vol] 61 U/L High [facility] Bilirubin [Mass/Vol] 0.4 mg/dL [facility] Bilirubin.direct [Mass/Vol] 0.2 mg/dL [facility] Protein [Mass/Vol] 6.6 g/dL [facility] LACTATE, BLOODon 10-14-2023 Interpretation and review of laboratory results Abnormal [facility] Lactate [Moles/Vol] 4.5 mmol/L Critically high 0.7 - 2.0 mmol/L [facility] Comment on above: PLEASE REPEAT INITIA L CRITICAL IN 3 HOURS IF ED OR INPATIENT SEPSIS PATIENT Result called to read back by: LINDA 10/14/2023 @ 05:22 by [facility] LACTATE,BLOODon 10-14-2023 Lactate [Moles/Vol] 4.5 mmol/L Critically high 0.7-2.0 [facility] Comment on above: Result Comment: PLEA SE REPEAT INITIAL CRITICAL IN 3 HOURS IF ED OR INPATIENT SEPSIS PATIENT Result called to read back by: LINDA 10/14/2023 @ 05:22 by [facility] Performed By: #### U MAC, UMIC #### Testing performed at [address] [address] LIVER PANELon 10-14-2023 Albumin [Mass/Vol] 4.0 g/dL Normal 2.9-5.3 [facility] Comment on above: Performed By: #### E SR, MG, CREACT, ACBC, RENF, LIVR ####Testing performed at [address] [address] ALP [Catalytic activity/Vol] 63 U/L Normal 38-126 [facility] Comment on above: Performed By: #### E SR, MG, CREACT, ACBC, RENF, LIVR ####Testing performed at [address] [address] ALT [Catalytic activity/Vol] 76 U/L High <35 [facility] Comment on above: Performed By: #### E SR, MG, CREACT, ACBC, RENF, LIVR ####Testing performed at [address] [address] AST [Catalytic activity/Vol] 61 U/L High 14-36 [facility] Comment on above: Performed By: #### E SR, MG, CREACT, ACBC, RENF, LIVR ####Testing performed at [address] [address] Bilirubin [Mass/Vol] 0.4 mg/dL Normal 0.2-1.3 [facility] Comment on above: Performed By: #### E SR, MG, CREACT, ACBC, RENF, LIVR ####Testing performed at [place] [id number] Bilirubin.indirect [Mass/Vol] 0.2 mg/dL Normal 0.0-0.4 [facility] Comment on above: Performed By: #### E SR, MG, CREACT, ACBC, RENF, LIVR ####[place] [address] Protein [Mass/Vol] 6.6 g/dL Normal 6.3-8.2 [facility] Comment on above: Performed By: #### E SR, MG, CREACT, ACBC, RENF, LIVR ####Testing performed at [place] [id number] MAGNESIUMon 10-14-2023 Magnesium [Mass/Vol] 2.5 mg/dL High [facility] Magnesium [Mass/Vol] 2.5 mg/dL High 1.6-2.3 [facility] Comment on above: Performed By: #### U MAC, UMIC #### Testing performed at [address] [address] No Panel Informationon 10-13 Interpretation and review of laboratory results Abnormal [facility] RENAL FUNCTION PANELon 10-13 Albumin [Mass/Vol] 4.0 G/dl 3.5 - 5.0 G/dl [facility] Calcium [Mass/Vol] 8.5 mg/dL [facility] Chloride [Moles/Vol] 102 mmol/L [facility] Comment on above: Please note: Triglyc eride levels of 600mg/dL or higher may positively bias chloride results by approximately 2.1 mmol CO2 [Moles/Vol] 26 mmol/L [facility] Creatinine [Mass/Vol] 0.60 mg/dL Low [facility] GFR COMMENT Average GFR for 30-3 9 years old = 107. [facility] Comment on above: Chronic Kidney disea se, GFR = <60. Kidney failure, GFR = <15. The GFR estimate is not adjusted for extreme body surface area or acute process, nor has it been validated for women or ethnic groups other than and . GFR/1.73 sq M.predicted among blacks MDRD (S/P/Bld) [Vol rate/Area] 151 mL/min/{1.73_m2} ml/min/1.73s q.m [facility] GFR/1.73 sq M.predicted among non-blacks MDRD (S/P/Bld) [Vol rate/Area] 125 mL/min/{1.73_m2} ml/min/1.73s q.m [facility] Glucose post fast [Mass/Vol] 137 mg/dL High [facility] Comment on above: NORMAL <100 mg/dL PREDIABETES 101-126 mg/dL DIABETES 126 mg/dL or higher Interpretation and review of laboratory results Abnormal [facility] Phosphate [Mass/Vol] 3.2 mg/dL [facility] Potassium [Moles/Vol] 3.6 mmol/L [facility] Sodium [Moles/Vol] 136 mmol/L Low [facility] Urea nitrogen [Mass/Vol] 16 mg/dL [facility] RENAL PANEL,FASTINGon 2023 ALBUMIN 4.0 G/dl Normal 3.5-5.0 [facility] Comment on above: Performed By: #### U BUSHRA REYESIC #### Testing performed at [address] [address] Calcium [Mass/Vol] 8.5 mg/dL Normal 8.4-10.2 [facility] Comment on above: Performed By: #### U ERIC, UMIC #### Testing performed at [address] [address] Chloride [Moles/Vol] 102 mmol/L Normal 98-107 [facility] Comment on above: Result Comment: Plea se note: Triglyceride levels of 600mg/dL or higher may positively bias chloride results by approximately 2.1 mmol Performed By: #### U MAC, UMIC #### Testing performed at [address] [address] CO2 [Moles/Vol] 26 mmol/L Normal 22-30 [facility] Comment on above: Performed By: #### U MAC, UMIC #### Testing performed at [address] [address] Creatinine [Mass/Vol] 0.60 mg/dL Low 0.70-1.20 [facility] Comment on above: Performed By: #### U MAC, UMIC #### Testing performed at [address] [address] EST. GFR, 151 ml/min/1.73sq.m [facility] Comment on above: Performed By: #### U MAC, UMIC #### Testing performed at [address] [address] EST. GFR,Non 125 ml/min/1.73sq.m [facility] Comment on above: Performed By: #### U MAC, UMIC #### Testing performed at [address] [address] GFR Information Average GFR for 30-3 9 years old = 107. Normal [facility] Comment on above: Result Comment: Binding Cementer French Cord bentley Kidney disease, GFR = <60. Kidney failure, GFR = <15. The GFR estimate is not adjusted for extreme body surface area or acute process, nor has it been validated for women or ethnic groups other than and . Performed By: #### U MAC, UMIC #### Testing performed at [address] [address] Glucose [Mass/Vol] 137 mg/dL High 70-100 [facility] Comment on above: Result Comment: NORMAL <100 mg/dL PREDIABETES 101-126 mg/dL DIABETES 126 mg/dL or higher Performed By: #### U MAC, UMIC #### Testing performed at [address] [address] PHOSPHOROUS 3.2 MG/DL Normal 2.5-4.5 [facility] Comment on above: Performed By: #### U MAC, UMIC #### Testing performed at [address] [address] Potassium [Moles/Vol] 3.6 mmol/L Normal 3.5-5.1 [facility] Comment on above: Performed By: #### U MAC, UMIC #### Testing performed at [address] [address] Sodium [Moles/Vol] 136 mmol/L Low 137-145 [facility] Comment on above: Performed By: #### U MAC, UMIC #### Testing performed at [address] [address] Urea nitrogen [Mass/Vol] 16 mg/dL Normal 7-20 [facility] Comment on above: Performed By: #### U MAC, UMIC #### Testing performed at [address] [address] SEDIMENTATION RATE, AUTOMATE Don 10-14-2023 ESR (Bld) [Velocity] 33 mm/h High [employer] [facility] Interpretation and review of laboratory results Abnormal [facility] ARTERIAL BLOOD GASon 024 Arterial patency Wrist artery --pre arterial puncture Positive [facility] Base excess Calc (BldV) [Moles/Vol] 2.2 mmol/L High [facility] Carboxyhemoglobin (Bld) [Mass fraction] 1.2 % [facility] [employer] [facility] CO2 (Bld) [Partial pressure] 30 mm[Hg] Low [facility] Diagnosis Narrative SOB [facility] HCO3 (Bld) [Moles/Vol] 24.5 mmol/L [facility] Hemoglobin (Bld) [Mass/Vol] 11.6 g/dL [facility] Interpretation and review of laboratory results Abnormal [facility] Methemoglobin (BldC) [Mass fraction] 0.9 % [facility] NOTE ROOM AIR [facility] O2 Device ROOM AIR [facility] Oxygen (Bld) [Partial pressure] 65 mm[Hg] Low [facility] Oxyhemoglobin (Bld) [Mass fraction] 93.1 % [employer] PATIENT PO2 SETTINGS 21 [facility] [employer] [facility] pH (Bld) 7.52 [pH] High 7.350 - 7.450 [facility] Specimen site Narrative RIGHT RADIAL [facility] JOSUE'S TEST Positive [facility] Comment on above: Performed By: #### C OVID #### Testing performed at [address] [address] BASE EXCESS 2.2 mEq/L High 0-2 [facility] Comment on above: Performed By: #### C OVID #### Testing performed at [address] [address] cHCO3 (P,ST)C 24.5 mEq/L Normal 22-26 [facility] Comment on above: Performed By: #### C OVID #### Testing performed at [address] [address] ctHb 11.6 g/dl [facility] Comment on above: Performed By: #### C OVID #### Testing performed at [address] [place] [address] FCOHb 1.2 % [facility] Comment on above: Performed By: #### C OVID #### Testing performed at [address] [place] [address] FMetHb 0.9 % [facility] Comment on above: Performed By: #### C OVID #### Testing performed at [address] [address] FO2Hb 93.1 % [facility] Comment on above: Performed By: #### C OVID #### Testing performed at [address] [place] [address] NOTES: ROOM AIR [facility] Comment on above: Performed By: #### C OVID #### Testing performed at [address] [place] [address] O2 DEVICE ROOM AIR [facility] Comment on above: Performed By: #### C OVID #### Testing performed at [address] [place] [address] PATIENT DIAGNOSIS SOB [facility] Comment on above: Performed By: #### C OVID #### Testing performed at [address] [address] PATIENT O2 SETTINGS 21 [facility] Comment on above: Performed By: #### C OVID #### Testing performed at [address] [address] pCO2, arterial 30 mmHg Low 35-45 [facility] Comment on above: Performed By: #### C OVID #### Testing performed at [address] [address] pH, arterial 7.52 High 7.350-7.450 [facility] Comment on above: Performed By: #### C OVID #### Testing performed at [address] [address] pO2,arterial 65 mmHg Low 80-100 [facility] Comment on above: Performed By: #### C OVID #### Testing performed at [address] [address] SAMPLE SITE RIGHT RADIAL Normal [facility] Comment on above: Performed By: #### C OVID #### Testing performed at [address] [address] sO2,arterial 95.1 % Normal 95-100 [facility] Comment on above: Performed By: #### C OVID #### Testing performed at [address] [address] C REACTIVE PROTEINon CRP [Mass/Vol] 16.1 mg/L High 0 - 10 MG/L [facility] CRP [Mass/Vol] 16.1 mg/L High 0-10 [facility] Comment on above: Performed By: #### U MAC, UMIC #### Testing performed at [address] [address] CBCon 10-13-2023 ABSOLUTE BAS 0.0 10*3/uL Normal 0.0-0.2 [facility] Comment on above: Performed By: #### U MAC, UMIC #### Testing performed at [address] [address] ABSOLUTE EOS 0.0 10*3/uL Normal 0.0-0.7 [facility] Comment on above: Performed By: #### U MAC, UMIC #### Testing performed at [address] [address] ABSOLUTE NEUTROPHIL COUNT 12.7 10*3/uL High 1.4-6.5 [facility] Comment on above: Performed By: #### U MAC, UMIC #### Testing performed at [address] [place] [address] Basophils/100 WBC (Bld) 0.1 % Normal 0.0-2.0 [facility] Comment on above: Performed By: #### U MAC, UMIC #### Testing performed at [address] [place] [address] DTYPE AUTO DIFF Normal [facility] Comment on above: Performed By: #### U MAC, UMIC #### Testing performed at [address] [place] [address] Eosinophils/100 WBC (Bld) 0.0 % Normal 0.0-11.0 [facility] Comment on above: Performed By: #### U MAC, UMIC #### Testing performed at [address] [place] [address] Lymphocytes (Bld) [#/Vol] 2.5 10*3/uL Normal 1.2-3.4 [facility] Comment on above: Performed By: #### U MAC, UMIC #### Testing performed at [address] [place] [address] Lymphocytes/100 WBC (Bld) 15.8 % Low 20.0-55.0 [facility] Comment on above: Performed By: #### U MAC, UMIC #### Testing performed at [address] [place] [address] Monocytes (Bld) [#/Vol] 0.5 10*3/uL Normal 0.0-0.7 [facility] Comment on above: Performed By: #### U MAC, UMIC #### Testing performed at [address] [place] [address] Monocytes/100 WBC (Bld) 3.4 % Normal 0.0-10.0 [facility] Comment on above: Performed By: #### U MAC, UMIC #### Testing performed at [address] [place] [address] Neutrophils/100 WBC (Bld) 80.7 % High 37.0-75.0 [facility] Comment on above: Performed By: #### U MAC, UMIC #### Testing performed at [address] [place] [address] Erythrocyte distribution width (RBC) [Ratio] 14.9 % High 11.5-14.5 [facility] Comment on above: Performed By: #### U MAC, UMIC #### Testing performed at [address] [place] [address] Hematocrit (Bld) [Volume fraction] 34.6 % Low 36.0-48.0 [facility] Comment on above: Performed By: #### U MAC, UMIC #### Testing performed at [address] [place] [address] Hemoglobin (Bld) [Mass/Vol] 11.7 g/dL Low 12.0-16.0 [facility] Comment on above: Performed By: #### U MAC, UMIC #### Testing performed at [address] [place] [address] MCH (RBC) [Entitic mass] 28.1 pg Normal 26.0-35.0 [facility] Comment on above: Performed By: #### U MAC, UMIC #### Testing performed at [address] [place] [address] MCHC (RBC) [Mass/Vol] 33.8 g/dL Normal 27.0-37.0 [facility] Comment on above: Performed By: #### U MAC, UMIC #### Testing performed at [address] [place] [address] MCV (RBC) [Entitic vol] 83.1 fL Normal 80.0-100.0 [facility] Comment on above: Performed By: #### U MAC, UMIC #### Testing performed at [address] [place] [address] Platelet mean volume (Bld) [Entitic vol] 7.6 fL Normal 7.4-11.0 [facility] Comment on above: Performed By: #### U MAC, UMIC #### Testing performed at [address] [place] [address] Platelets (Bld) [#/Vol] 325 10*3/uL Normal 130-400 [facility] Comment on above: Performed By: #### U MAC, UMIC #### Testing performed at [place] [address] [facility] [place] [address] RBC (Bld) [#/Vol] 4.16 10*6/uL Normal 4.0-5.4 [facility] Comment on above: Performed By: #### U MAC, [facility] #### Testing performed at [address] [address] WBC (Bld) [#/Vol] 15.7 10*3/uL High 3.6-11.0 [facility] Comment on above: Performed By: #### U MAC, [facility] #### Testing performed at [address] [place] [address] CBC, EDIF, PLATELETon 2023 ABSOLUTE BASOPHIL COUNT 0.0 10*3/uL 0.0 - 0.2 10*3/uL [facility] Basophils/100 WBC (Bld) 0.1 % 0.0 - 2.0 % [facility] Differential cell count method Nom (Bld) AUTO DIFF % [facility] Eosinophils (Bld) [#/Vol] 0.0 10*3/uL 0.0 - 0.7 10*3/uL [facility] Eosinophils/100 WBC (Bld) 0.0 % 0.0 - 11.0 % [facility] Erythrocyte distribution width (RBC) [Ratio] 14.9 % High 11.5 - 14.5 % [facility] Hematocrit (Bld) [Volume fraction] 34.6 % Low 36.0 - 48.0 % [facility] Hemoglobin (Bld) [Mass/Vol] 11.7 g/dL Low [facility] Interpretation and review of laboratory results Abnormal [facility] Lymphocytes (Bld) [#/Vol] 2.5 10*3/uL 1.2 - 3.4 10*3/uL [facility] Lymphocytes/100 WBC (Bld) 15.8 % Low 20.0 - 55.0 % [facility] MCH (RBC) [Entitic mass] 28.1 pg 26.0 - 35.0 PG [facility] MCHC (RBC) [Mass/Vol] 33.8 g/dL [facility] MCV (RBC) [Entitic vol] 83.1 fL [facility] Monocytes (Bld) [#/Vol] 0.5 10*3/uL 0.0 - 0.7 10*3/uL [facility] Monocytes/100 WBC (Bld) 3.4 % 0.0 - 10.0 % [facility] Neutrophils (Bld) [#/Vol] 12.7 10*3/uL High 1.4 - 6.5 10*3/uL [facility] Neutrophils/100 WBC (Bld) 80.7 % High 37.0 - 75.0 % [facility] Platelet mean volume (Bld) [Entitic vol] 7.6 fL [facility] Platelets (Bld) [#/Vol] 325 10*3/uL 130 - 400 10*3/uL [facility] RBC (Bld) [#/Vol] 4.16 10*6/uL 4.0 - 5.4 10*6/uL [facility] WBC (Bld) [#/Vol] 15.7 10*3/uL High 3.6 - 11.0 10*3/uL [facility] Cardiac echo study Procedure on 10-13-2023 ADDE [...] ms MVA PHT 3.94 cm2 MV Dec [place] 482.74 cm/s2 MV Decel. Time 223.67 (160-240 ms) Pulmonary Valve PV Peak Velocity 1.0 (0.5-1.5 m/s) NE End VMAX 1.8 m/s PV maxPG 4.0 mmHg PV Vmax 1.0 m/s NE End PG 8.93 mmHg Tricuspid Valve TR [...] Aortic Root 2.75 cm F: 2.7 - 3.0UKSQV94 mL Aortic Root Index1.2 cm/e8YJNFM19.28 mL F: 46 - 106 Ascending Aorta 3.26 cm F: 2.3 - 3.1LV Volume Index40.40 mL/m2 F: 29 - 61 Ascending Aorta Index: 1.5 cm/m2LA Pyouxr46.7 mL Left Atrium 4.28 cm F: 2.7 [...] Mean GR.5.17 (<5 mmHg)AO VTI31.9 (18-25 cm) [place] (VTI)2.39 (2.5-4.5 cm2) Mitral Valve MV E Max Abisai.1.0 (0.4-1.3 m/s)MVA VTI 2.2 (4.0-6.0 cm2) MV A Velocity0.56 (0.4-1.3 m/s)E/A Ratio1.87 MV Vmean0.83 m/sMV Mean Gr.2.97 (<2mmHg) MV PHT55.78 msMVA PHT3.94 cm2 MV Dec [place] 482.74 cm/s2MV Decel. Ehdv263.67 (160-240 ms) Pulmonary Valve PV Peak Velocity1.0 (0.5-1.5 m/s)NE End VMAX1.8 m/s PV maxPG4.0 mmHgPV Vmax1.0 m/s NE End PG 8.93 mmHg Tricuspid Valve TR P. Velocity2.60 m/sRAP Estimate8 mmHg RVSP35.13 mmHgTR maxPG 27.13 mmHg S'0.13 m/s M-Mode Aortic Cusp Exc1.79 cm [facility] Radiology Study observation (narrative) [facility] Cardiac echo study Procedure Ordered By: Denny Pineda on 10-13-2023 [facility] Work Phone: ESRon 10-13-2023 ESR (Bld) [Velocity] 43 mm/h High 0-15 [facility] Comment on above: Performed By: #### U MAC, UMIC #### Testing performed at [address] [address] LACTATE, BLOODon 10-13-2023 Interpretation and review of laboratory results Abnormal [facility] Lactate [Moles/Vol] 4.6 mmol/L Critically high 0.7 - 2.0 mmol/L [facility] Comment on above: PLEASE REPEAT INITIA L CRITICAL IN 3 HOURS IF ED OR INPATIENT SEPSIS PATIENT Result called to read back by: KENNA 10/13/2023 @ 11:39 by [facility] Interpretation and review of laboratory results Abnormal [facility] Lactate [Moles/Vol] 5.0 mmol/L Critically high 0.7 - 2.0 mmol/L [facility] Comment on above: PLEASE REPEAT INITIA L CRITICAL IN 3 HOURS IF ED OR INPATIENT SEPSIS PATIENT Result called to read back by: JARETT NAIR 10/13/2023 @ 05:30 by HRE [facility] Interpretation and review of laboratory results Abnormal [facility] Lactate [Moles/Vol] 4.2 mmol/L Critically high 0.7 - 2.0 mmol/L [facility] Comment on above: PLEASE REPEAT INITIA L CRITICAL IN 3 HOURS IF ED OR INPATIENT SEPSIS PATIENT Result called to read back by: JUANJO DANIEL 10/13/2023 @ 00:30 by DIANA [facility] LACTATE,BLOODon 10-13-2023 Lactate [Moles/Vol] 4.6 mmol/L Critically high 0.7-2.0 [facility] Comment on above: Result Comment: PLEA SE REPEAT INITIAL CRITICAL IN 3 HOURS IF ED OR INPATIENT SEPSIS PATIENT Result called to read back by: KENNA 10/13/2023 @ 11:39 by [facility] Performed By: #### C OVID #### Testing performed at [address] [address] Lactate [Moles/Vol] 5.0 mmol/L Critically high 0.7-2.0 [facility] Comment on above: Result Comment: PLEA SE REPEAT INITIAL CRITICAL IN 3 HOURS IF ED OR INPATIENT SEPSIS PATIENT Result called to read back by: JARETT NAIR 10/13/2023 @ 05:30 by HRE Performed By: #### U MAC, UMIC #### Testing performed at [address] [address] Lactate [Moles/Vol] 4.2 mmol/L Critically high 0.7-2.0 [facility] Comment on above: Result Comment: PLEA SE REPEAT INITIAL CRITICAL IN 3 HOURS IF ED OR INPATIENT SEPSIS PATIENT Result called to read back by: JUANJO DANIEL 10/13/2023 @ 00:30 by DIANA Performed By: #### U MAC, UMIC #### Testing performed at [address] [address] MAGNESIUMon 10-13-2023 Magnesium [Mass/Vol] 2.1 mg/dL [facility] Magnesium [Mass/Vol] 2.1 mg/dL Normal 1.6-2.3 [facility] Comment on above: Performed By: #### U MAC, [facility] #### Testing performed at [facility] [address] [place] [address] No Panel Informationon 10-12 Interpretation and review of laboratory results Abnormal [facility] RENAL FUNCTION PANELon 10-12 Albumin [Mass/Vol] 3.6 G/dl 3.5 - 5.0 G/dl [facility] Calcium [Mass/Vol] 8.7 mg/dL [facility] Chloride [Moles/Vol] 104 mmol/L [facility] Comment on above: Please note: Triglyc eride levels of 600mg/dL or higher may positively bias chloride results by approximately 2.1 mmol CO2 [Moles/Vol] 23 mmol/L [facility] Creatinine [Mass/Vol] 0.50 mg/dL Low [facility] GFR COMMENT Average GFR for 30-3 9 years old = 107. [facility] Comment on above: Chronic Kidney disea se, GFR = <60. Kidney failure, GFR = <15. The GFR estimate is not adjusted for extreme body surface area or acute process, nor has it been validated for women or ethnic groups other than and . GFR/1.73 sq M.predicted among blacks MDRD (S/P/Bld) [Vol rate/Area] 186 mL/min/{1.73_m2} ml/min/1.73s q.m [facility] GFR/1.73 sq M.predicted among non-blacks MDRD (S/P/Bld) [Vol rate/Area] 154 mL/min/{1.73_m2} ml/min/1.73s q.m [facility] Glucose post fast [Mass/Vol] 151 mg/dL High [facility] Comment on above: NORMAL <100 mg/dL PREDIABETES 101-126 mg/dL DIABETES 126 mg/dL or higher Phosphate [Mass/Vol] 2.8 mg/dL [facility] Potassium [Moles/Vol] 3.9 mmol/L [facility] Sodium [Moles/Vol] 135 mmol/L Low [facility] Urea nitrogen [Mass/Vol] 15 mg/dL [facility] RENAL PANEL,FASTINGon 2023 ALBUMIN 3.6 G/dl Normal 3.5-5.0 [facility] Comment on above: Performed By: #### U MAC, UMIC #### Testing performed at [address] [address] Calcium [Mass/Vol] 8.7 mg/dL Normal 8.4-10.2 [facility] Comment on above: Performed By: #### U MAC, UMIC #### Testing performed at [place] [id number] Chloride [Moles/Vol] 104 mmol/L Normal 98-107 [facility] Comment on above: Result Comment: Klaus baptiste note: Triglyceride levels of 600mg/dL or higher may positively bias chloride results by approximately 2.1 mmol Performed By: #### U MAC, UMIC #### Testing performed at [address] [address] CO2 [Moles/Vol] 23 mmol/L Normal 22-30 [facility] Comment on above: Performed By: #### U MAC, UMIC #### Testing performed at [address] [address] Creatinine [Mass/Vol] 0.50 mg/dL Low 0.70-1.20 [facility] Comment on above: Performed By: #### U MAC, UMIC #### Testing performed at [address] [address] EST. GFR, 186 ml/min/1.73sq.m [facility] Comment on above: Performed By: #### U MAC, UMIC #### Testing performed at [address] [address] EST. GFR,Non 154 ml/min/1.73sq.m [facility] Comment on above: Performed By: #### U MAC, UMIC #### Testing performed at [address] [address] GFR Information Average GFR for 30-3 9 years old = 107. Normal [facility] Comment on above: Result Comment: Binding Cementer French Cord bentley Kidney disease, GFR = <60. Kidney failure, GFR = <15. The GFR estimate is not adjusted for extreme body surface area or acute process, nor has it been validated for women or ethnic groups other than and . Performed By: #### U MAC, UMIC #### Testing performed at [address] [address] Glucose [Mass/Vol] 151 mg/dL High 70-100 [facility] Comment on above: Result Comment: NORMAL <100 mg/dL PREDIABETES 101-126 mg/dL DIABETES 126 mg/dL or higher Performed By: #### U MAC, UMIC #### Testing performed at [address] [address] PHOSPHOROUS 2.8 MG/DL Normal 2.5-4.5 [facility] Comment on above: Performed By: #### U MAC, UMIC #### Testing performed at [address] [address] Potassium [Moles/Vol] 3.9 mmol/L Normal 3.5-5.1 [facility] Comment on above: Performed By: #### U MAC, UMIC #### Testing performed at [address] [address] Sodium [Moles/Vol] 135 mmol/L Low 137-145 [facility] Comment on above: Performed By: #### U MAC, UMIC #### Testing performed at [address] [address] Urea nitrogen [Mass/Vol] 15 mg/dL Normal 7-20 [facility] Comment on above: Performed By: #### U MAC, UMIC #### Testing performed at [address] [address] SEDIMENTATION RATE, AUTOMATE Don 10-13-2023 ESR (Bld) [Velocity] 43 mm/h [facility] Interpretation and review of laboratory results Abnormal [facility] XR CHEST PA 1 VIEWon 024 XR [...] the exam of one day prior. Normal [facility] XR Chest PA uprighton 2023 [...] from the exam of one day prior. [facility] Radiology Study observation (narrative) [facility] XR Chest PA uprightOrdered B y: Nissa Newby on 10-13-2023 [facility] B TYPE NATRIURETIC PEPTIDEon 10-12-2023 Natriuretic peptide B (Bld) [Mass/Vol] 68 pg/mL Normal [facility] Comment on above: Performed By: #### E SR, BNP, CREACT ####Testing performed at [place] [id number] B-TYPE NATRIURETIC PEPTIDE ( BRAIN)on 10-12-2023 Natriuretic peptide B (Bld) [Mass/Vol] 68 pg/mL [facility] C REACTIVE PROTEINon 024 CRP [Mass/Vol] 35.0 mg/L High 0 - 10 MG/L [facility] Interpretation and review of laboratory results Abnormal [facility] CRP [Mass/Vol] 35.0 mg/L High 0-10 [facility] Comment on above: Performed By: #### E SR, BNP, CREACT ####Testing performed at [place] [id number] CBCon 10-12-2023 ABSOLUTE BAS 0.0 10*3/uL Normal 0.0-0.2 [facility] Comment on above: Performed By: #### R ENF MG ACBC ####Testing performed at [place] [id number] ABSOLUTE EOS 0.0 10*3/uL Normal 0.0-0.7 [facility] Comment on above: Performed By: #### R ENFMG ACBC ####Testing performed at [place] [id number] ABSOLUTE NEUTROPHIL COUNT 12.1 10*3/uL High 1.4-6.5 [facility] Comment on above: Performed By: #### R ENF MG, ACBC ####Testing performed at [place] [id number] Basophils/100 WBC (Bld) 0.1 % Normal 0.0-2.0 [facility] Comment on above: Performed By: #### R ENF MG ACBC ####Testing performed at [place] [id number] DTYPE AUTO DIFF Normal [facility] Comment on above: Performed By: #### R ENF MG, ACBC ####[place] [address] Eosinophils/100 WBC (Bld) 0.0 % Normal 0.0-11.0 [facility] Comment on above: Performed By: #### R MG KENJI ACBC ####Testing performed at [address] [address] Lymphocytes (Bld) [#/Vol] 1.4 10*3/uL Normal 1.2-3.4 [facility] Comment on above: Performed By: #### R ENMG Priscilla ACBC ####Testing performed at [address] [address] Lymphocytes/100 WBC (Bld) 10.2 % Low 20.0-55.0 [facility] Comment on above: Performed By: #### R MG KENJI ACBC ####Testing performed at [address] [address] Monocytes (Bld) [#/Vol] 0.5 10*3/uL Normal 0.0-0.7 [facility] Comment on above: Performed By: #### R MG KENJI ACBC ####Testing performed at [address] [address] Monocytes/100 WBC (Bld) 3.5 % Normal 0.0-10.0 [facility] Comment on above: Performed By: #### MG KENYATTA ACBC ####Testing performed at [address] [address] Neutrophils/100 WBC (Bld) 86.2 % High 37.0-75.0 [facility] Comment on above: Performed By: #### R ENMG Priscilla ACBC ####Testing performed at [address] [address] Erythrocyte distribution width (RBC) [Ratio] 14.7 % High 11.5-14.5 [facility] Comment on above: Performed By: #### R MG KENJI ACBC ####Testing performed at [address] [address] Hematocrit (Bld) [Volume fraction] 35.5 % Low 36.0-48.0 [facility] Comment on above: Performed By: #### R ENF, MG, ACBC ####Testing performed at [address] [address] Hemoglobin (Bld) [Mass/Vol] 11.9 g/dL Low 12.0-16.0 [facility] Comment on above: Performed By: #### R ENF MG, ACBC ####Testing performed at [address] [address] MCH (RBC) [Entitic mass] 27.9 pg Normal 26.0-35.0 [facility] Comment on above: Performed By: #### R ENF MG, ACBC ####Testing performed at [address] [address] MCHC (RBC) [Mass/Vol] 33.5 g/dL Normal 27.0-37.0 [facility] Comment on above: Performed By: #### R ENF MG, ACBC ####Testing performed at [place] [id number] MCV (RBC) [Entitic vol] 83.3 fL Normal 80.0-100.0 [facility] Comment on above: Performed By: #### R ENF MG, ACBC ####Testing performed at [place] [id number] Platelet mean volume (Bld) [Entitic vol] 7.9 fL Normal 7.4-11.0 [facility] Comment on above: Performed By: #### R ENF MG, ACBC ####Testing performed at [address] [address] Platelets (Bld) [#/Vol] 292 10*3/uL Normal 130-400 [facility] Comment on above: Performed By: #### R ENF MG, ACBC ####Testing performed at [address] [address] RBC (Bld) [#/Vol] 4.26 10*6/uL Normal 4.0-5.4 [facility] Comment on above: Performed By: #### R ENF MG, ACBC ####Testing performed at [address] [address] WBC (Bld) [#/Vol] 14.0 10*3/uL High 3.6-11.0 [facility] Comment on above: Performed By: #### R ENF, MG, ACANTOLIN ####Testing performed at [facility] [place] [address] CBC, EDIF, PLATELETon 2023 ABSOLUTE BASOPHIL COUNT 0.0 10*3/uL 0.0 - 0.2 10*3/uL [facility] Basophils/100 WBC (Bld) 0.1 % 0.0 - 2.0 % [facility] Differential cell count method Nom (Bld) AUTO DIFF % [facility] Eosinophils (Bld) [#/Vol] 0.0 10*3/uL 0.0 - 0.7 10*3/uL [facility] Eosinophils/100 WBC (Bld) 0.0 % 0.0 - 11.0 % [facility] Erythrocyte distribution width (RBC) [Ratio] 14.7 % High 11.5 - 14.5 % [facility] Hematocrit (Bld) [Volume fraction] 35.5 % Low 36.0 - 48.0 % [facility] Hemoglobin (Bld) [Mass/Vol] 11.9 g/dL Low [facility] Interpretation and review of laboratory results Abnormal [facility] Lymphocytes (Bld) [#/Vol] 1.4 10*3/uL 1.2 - 3.4 10*3/uL [facility] Lymphocytes/100 WBC (Bld) 10.2 % Low 20.0 - 55.0 % [facility] MCH (RBC) [Entitic mass] 27.9 pg 26.0 - 35.0 PG [facility] MCHC (RBC) [Mass/Vol] 33.5 g/dL [facility] MCV (RBC) [Entitic vol] 83.3 fL [facility] Monocytes (Bld) [#/Vol] 0.5 10*3/uL 0.0 - 0.7 10*3/uL [facility] Monocytes/100 WBC (Bld) 3.5 % 0.0 - 10.0 % [facility] Neutrophils (Bld) [#/Vol] 12.1 10*3/uL High 1.4 - 6.5 10*3/uL [facility] Neutrophils/100 WBC (Bld) 86.2 % High 37.0 - 75.0 % [facility] Platelet mean volume (Bld) [Entitic vol] 7.9 fL [facility] Platelets (Bld) [#/Vol] 292 10*3/uL 130 - 400 10*3/uL [facility] RBC (Bld) [#/Vol] 4.26 10*6/uL 4.0 - 5.4 10*6/uL [facility] WBC (Bld) [#/Vol] 14.0 10*3/uL High 3.6 - 11.0 10*3/uL [facility] ESRon 10-12-2023 ESR (Bld) [Velocity] 53 mm/h High 0-15 [facility] Comment on above: Performed By: #### E SR, BNP, CREACT ####Testing performed at [place] [address] [place] [address] LACTATE, BLOODon 10-12-2023 Interpretation and review of laboratory results Abnormal [facility] Lactate [Moles/Vol] 3.7 mmol/L Critically high 0.7 - 2.0 mmol/L [facility] Comment on above: PLEASE REPEAT INITIA L CRITICAL IN 3 HOURS IF ED OR INPATIENT SEPSIS PATIENT Result called to read back by: JOANIE DENSON 10/12/2023 @ 21:17 by [facility] Interpretation and review of laboratory results Abnormal [facility] Lactate [Moles/Vol] 3.6 mmol/L Critically high 0.7 - 2.0 mmol/L [facility] Comment on above: PLEASE REPEAT INITIA L CRITICAL IN 3 HOURS IF ED OR INPATIENT SEPSIS PATIENT Result called to read back by: JOANIE THOMPSON 10/12/2023 @ 18:15 by [facility] Interpretation and review of laboratory results Abnormal [facility] Lactate [Moles/Vol] 4.2 mmol/L Critically high 0.7 - 2.0 mmol/L [facility] Comment on above: PLEASE REPEAT INITIA L CRITICAL IN 3 HOURS IF ED OR INPATIENT SEPSIS PATIENT Result called to read back by: VIRGINIA 10/12/2023 @ 14:54 by [facility] Interpretation and review of laboratory results Abnormal [facility] Lactate [Moles/Vol] 4.7 mmol/L Critically high 0.7 - 2.0 mmol/L [facility] Comment on above: PLEASE REPEAT INITIA L CRITICAL IN 3 HOURS IF ED OR INPATIENT SEPSIS PATIENT Result called to read back by: VIRGINIA 10/12/2023 @ 13:11 by WB [facility] LACTATE,BLOODon 10-12-2023 Lactate [Moles/Vol] 3.7 mmol/L Critically high 0.7-2.0 [facility] Comment on above: Result Comment: PLEA SE REPEAT INITIAL CRITICAL IN 3 HOURS IF ED OR INPATIENT SEPSIS PATIENT Result called to read back by: JOANIE DENSON 10/12/2023 @ 21:17 by ALL Performed By: #### L ACTAC ####Testing performed at [address] [place] [address] Lactate [Moles/Vol] 3.6 mmol/L Critically high 0.7-2.0 [facility] Comment on above: Result Comment: PLEA SE REPEAT INITIAL CRITICAL IN 3 HOURS IF ED OR INPATIENT SEPSIS PATIENT Result called to read back by: JOANIE THOMPSON 10/12/2023 @ 18:15 by DIANA Performed By: #### U MAC, UMIC #### Testing performed at [address] [address] Lactate [Moles/Vol] 4.2 mmol/L Critically high 0.7-2.0 [facility] Comment on above: Result Comment: PLEA SE REPEAT INITIAL CRITICAL IN 3 HOURS IF ED OR INPATIENT SEPSIS PATIENT Result called to read back by: VIRGINIA 10/12/2023 @ 14:54 by WB Performed By: #### U MAC, UMIC #### Testing performed at [address] [address] Lactate [Moles/Vol] 4.7 mmol/L Critically high 0.7-2.0 [facility] Comment on above: Result Comment: PLEA SE REPEAT INITIAL CRITICAL IN 3 HOURS IF ED OR INPATIENT SEPSIS PATIENT Result called to read back by: VIRGINIA 10/12/2023 @ 13:11 by WB Performed By: #### U MAC, UMIC #### Testing performed at [address] [address] MAGNESIUMon 10-12-2023 Magnesium [Mass/Vol] 2.0 mg/dL [facility] Magnesium [Mass/Vol] 2.0 mg/dL Normal 1.6-2.3 [facility] Comment on above: Performed By: #### R ENF, MG, ACBC ####Testing performed at [facility] [place] [address] No Panel Informationon 10-11 [facility] PROCALCITONINon 10-12-2023 PROCALCITONIN 0.06 ng/mL 0.00 - 0.25 ng/mL [facility] Comment on above: PCT Interpretation Less than 0.10 ng/mL, antibiotic therapy strongly discouraged. 0.10-0.25 ng/mL, antibiotic therapy discouraged. 0.25-0.50 ng/mL, antibiotic therapy encouraged. Greater than 0.50 ng/mL, antibiotic therapy strongly encouraged. [facility] PROCALCITONIN 0.06 ng/mL Normal 0.00-0.25 [facility] Comment on above: Result Comment: PCT Interpretation Less than 0.10 ng/mL, antibiotic therapy strongly discouraged. 0.10-0.25 ng/mL, antibiotic therapy discouraged. 0.25-0.50 ng/mL, antibiotic therapy encouraged. Greater than 0.50 ng/mL, antibiotic therapy strongly encouraged. Performed By: #### U MAC, UMIC #### Testing performed at [facility] [address] [place] [address] Portable XR Chest Viewson IMPRESSION: Bibasilar consolidation [...] IMPRESSION: Bibasilar consolidation with bilateral pleural effusions. [employer] Radiology Study observation (narrative) [employer] Portable XR Chest ViewsOrder ed By: Willie Stapleton on 10-12-2023 [employer] Work Phone: RENAL FUNCTION PANELon 10-11 Albumin [Mass/Vol] 3.7 G/dl 3.5 - 5.0 G/dl [facility] Calcium [Mass/Vol] 8.5 mg/dL [employer] Chloride [Moles/Vol] 109 mmol/L High [facility] Comment on above: Please note: Triglyc eride levels of 600mg/dL or higher may positively bias chloride results by approximately 2.1 mmol CO2 [Moles/Vol] 19 mmol/L Low [facility] Creatinine [Mass/Vol] 0.50 mg/dL Low Peak 10 GFR COMMENT Average GFR for 30-3 9 years old = 107. [employer] Comment on above: Chronic Kidney disea se, GFR = <60. Kidney failure, GFR = <15. The GFR estimate is not adjusted for extreme body surface area or acute process, nor has it been validated for women or ethnic groups other than and . GFR/1.73 sq M.predicted among blacks MDRD (S/P/Bld) [Vol rate/Area] 186 mL/min/{1.73_m2} ml/min/1.73s q.m [facility] GFR/1.73 sq M.predicted among non-blacks MDRD (S/P/Bld) [Vol rate/Area] 154 mL/min/{1.73_m2} ml/min/1.73s q.m [facility] Glucose post fast [Mass/Vol] 209 mg/dL High [employer] Comment on above: NORMAL <100 mg/dL PREDIABETES 101-126 mg/dL DIABETES 126 mg/dL or higher Interpretation and review of laboratory results Abnormal [employer] [facility] Phosphate [Mass/Vol] 2.3 mg/dL Low [employer] [facility] Potassium [Moles/Vol] 3.5 mmol/L [facility] Sodium [Moles/Vol] 137 mmol/L [employer] [facility] Urea nitrogen [Mass/Vol] 13 mg/dL [facility] RENAL PANEL,FASTINGon 2023 ALBUMIN 3.7 G/dl Normal 3.5-5.0 [facility] Comment on above: Performed By: #### R ENF MG, ACBC ####[place] [address] Calcium [Mass/Vol] 8.5 mg/dL Normal 8.4-10.2 [facility] Comment on above: Performed By: #### R ENF MG, ACBC ####[place] [address] Chloride [Moles/Vol] 109 mmol/L High 98-107 [facility] Comment on above: Result Comment: Klaus baptiste note: Triglyceride levels of 600mg/dL or higher may positively bias chloride results by approximately 2.1 mmol Performed By: #### R ENF MG, ACBC ####[place] [address] CO2 [Moles/Vol] 19 mmol/L Low 22-30 [facility] Comment on above: Performed By: #### R ENF MG, ACBC ####[place] [address] Creatinine [Mass/Vol] 0.50 mg/dL Low 0.70-1.20 [facility] Comment on above: Performed By: #### R ENF MG, ACBC ####Testing performed at [place] [id number] EST. GFR, 186 ml/min/1.73sq.m [facility] Comment on above: Performed By: #### R ENF MG, ACBC ####Testing performed at [place] [id number] EST. GFR,Non 154 ml/min/1.73sq.m [facility] Comment on above: Performed By: #### R ENF MG, ACBC ####[place] [address] GFR Information Average GFR for 30-3 9 years old = 107. Normal [facility] Comment on above: Result Comment: Binding Cementer French Cord bentley Kidney disease, GFR = <60. Kidney failure, GFR = <15. The GFR estimate is not adjusted for extreme body surface area or acute process, nor has it been validated for women or ethnic groups other than and . Performed By: #### R MG PHILLIP ACBC ####[place] [address] Glucose [Mass/Vol] 209 mg/dL High 70-100 [facility] Comment on above: Result Comment: NORMAL <100 mg/dL PREDIABETES 101-126 mg/dL DIABETES 126 mg/dL or higher Performed By: #### R MG PHILLIP ACBC ####[place] [address] PHOSPHOROUS 2.3 MG/DL Low 2.5-4.5 [facility] Comment on above: Performed By: #### MG YOU ACBC ####Testing performed at [place] [id number] Potassium [Moles/Vol] 3.5 mmol/L Normal 3.5-5.1 [facility] Comment on above: Performed By: #### MG YOU ACBC ####Testing performed at [place] [id number] Sodium [Moles/Vol] 137 mmol/L Normal 137-145 [facility] Comment on above: Performed By: #### MG YOU ACBC ####Testing performed at [place] [id number] Urea nitrogen [Mass/Vol] 13 mg/dL Normal 7-20 [facility] Comment on above: Performed By: #### R MG PHILLIP ACBC ####Testing performed at [address] [address] SEDIMENTATION RATE, AUTOMATE Don 10-12-2023 ESR (Bld) [Velocity] 53 mm/h [facility] Interpretation and review of laboratory results Abnormal [facility] TROPONIN I, HIGH SENSITIVITY on 10-12-2023 TROPONIN I, HIGH SENSITIVITY 3 pg/mL 0 - 12 pg/mL [facility] Comment on above: Indeterminant: >12 to 100 pg/mL female >20 to 100 pg/mL male Indicative of myocardial injury. Serial sampling is recommended, a change of greater than or equal to 20 pg/mL is indicative of acute coronary syndrome. [facility] TROPONIN I, HIGH SENSITIVITY 3 pg/mL Normal 0-12 [facility] Comment on above: Result Comment: Indeterminant: >12 to 100 pg/mL female >20 to 100 pg/mL male Indicative of myocardial injury. Serial sampling is recommended, a change of greater than or equal to 20 pg/mL is indicative of acute coronary syndrome. Performed By: #### T [facility] ####Testing performed at [place] [id number] TROPONIN I, HIGH SENSITIVITY 3 pg/mL 0 - 12 pg/mL [facility] Comment on above: Indeterminant: >12 to 100 pg/mL female >20 to 100 pg/mL male Indicative of myocardial injury. Serial sampling is recommended, a change of greater than or equal to 20 pg/mL is indicative of acute coronary syndrome. [facility] TROPONIN I, HIGH SENSITIVITY 3 pg/mL Normal 0-12 [facility] Comment on above: Result Comment: Indeterminant: >12 to 100 pg/mL female >20 to 100 pg/mL male Indicative of myocardial injury. Serial sampling is recommended, a change of greater than or equal to 20 pg/mL is indicative of acute coronary syndrome. Performed By: #### U [facility], [facility] #### Testing performed at [address] [address] URINALYSIS, MACROon 10-12-19 24 Bilirubin Ql (U) Negative NEGATIVE [facility] Clarity (U) CLEAR CLEAR [facility] Color (U) YELLOW YELLOW [facility] Glucose Test strip (U) [Mass/Vol] 500 mg/dl Abnormal NEGATIVE [facility] Hemoglobin Ql (U) SMALL Abnormal NEGATIVE [facility] Interpretation and review of laboratory results Abnormal [facility] Ketones (U) [Mass/Vol] Negative NEGAT ZARIA mg/dl [facility] Leukocyte esterase Test strip Ql (U) Negative NEGATIVE [facility] Nitrite Ql (U) Negative NEGATIVE [facility] pH (U) 6.5 [pH] 5.0 - 7.0 [facility] Protein Ql (U) 100 mg/dl Abnormal NEGATIVE [facility] Specific gravity (U) [Rel density] 1.025 1.010 - 1.025 [facility] Urobilinogen (U) [Mass/Vol] 0.2 mg/dL [facility] URINE MACROSCOPICon 10-12-19 24 Bilirubin Ql (U) Negative Normal NEGATIVE [facility] Comment on above: Performed By: #### U MAC, [facility] #### Testing performed at [address] [address] Clarity (U) CLEAR Normal CLEAR [facility] Comment on above: Performed By: #### U MAC, [facility] #### Testing performed at [address] [address] Color (U) YELLOW Normal YELLOW [facility] Comment on above: Performed By: #### U MAC, [facility] #### Testing performed at [address] [address] Glucose Ql (U) 500 mg/dl Abnormal NEGATIVE [facility] Comment on above: Performed By: #### U MAC, UMIC #### Testing performed at [address] [address] pH (U) 6.5 [pH] Normal 5.0-7.0 [facility] Comment on above: Performed By: #### U MAC, UMIC #### Testing performed at [address] [address] Protein (U) [Mass/Vol] 100 mg/dL Abnormal NEGATIVE [facility] Comment on above: Performed By: #### U MAC, UMIC #### Testing performed at [address] [place] [address] URINE HEMOGLOBIN SMALL Abnormal NEGATIVE [facility] Comment on above: Performed By: #### U MAC, UMIC #### Testing performed at [address] [address] URINE KETONE Negative Normal NEGATIVE [facility] Comment on above: Performed By: #### U MAC, UMIC #### Testing performed at [address] [address] URINE LEUKOTEST Negative Normal NEGATIVE [facility] Comment on above: Performed By: #### U MAC, UMIC #### Testing performed at [address] [place] [address] URINE NITRATES Negative Normal NEGATIVE [facility] Comment on above: Performed By: #### U MAC, UMIC #### Testing performed at [address] [address] URINE SPEC GRAVITY 1.025 Normal 1.010-1.025 [facility] Comment on above: Performed By: #### U MAC, UMIC #### Testing performed at [address] [address] Urobilinogen Qn (U) 0.2 {Dell'U}/dL Normal 0.2-1.0 [facility] Comment on above: Performed By: #### U MAC, UMIC #### Testing performed at [address] [address] URINE MICROSCOPICon 10-12-19 24 Bacteria LM.HPF (Urine sed) [#/Area] Negative NEGATIVE [facility] Casts LM.LPF (Urine sed) [#/Area] NONE NONE /LPF [facility] Crystals LM Nom (Urine sed) NONE NONE [facility] Epithelial cells LM Ql (Urine sed) 1 TO 5 /HPF [facility] Mucus Ql (Urine sed) Negative NEGATIVE [facility] RBC LM.HPF (Urine sed) [#/Area] Negative NEGATIVE /HPF [facility] Urine sediment comments LM Dillan (Urine sed) CULTURE CRITERIA NOT MET, NO CULTURE PERFORMED. [facility] WBC LM.HPF (Urine sed) [#/Area] Negative NEGATIVE /HPF [facility] Bacteria LM.HPF (Urine sed) [#/Area] Negative Normal NEGATIVE [facility] Comment on above: Performed By: #### U MAC, UMIC #### Testing performed at [address] [address] CASTS NONE Normal NONE [facility] Comment on above: Performed By: #### U MAC, UMIC #### Testing performed at [address] [address] CRYSTAL NONE Normal NONE [facility] Comment on above: Performed By: #### U MAC, UMIC #### Testing performed at [address] [address] Epithelial cells LM Ql (Urine sed) 1 TO 5 Normal [facility] Comment on above: Performed By: #### U MAC, UMIC #### Testing performed at [address] [address] Mucus Ql (Urine sed) Negative Normal NEGATIVE [facility] Comment on above: Performed By: #### U MAC, UMIC #### Testing performed at [place] [id number] URINE COMMENT CULTURE CRITERIA NOT MET, NO CULTURE PERFORMED. Normal [facility] Comment on above: Performed By: #### U MAC, UMIC #### Testing performed at [address] [address] URINE RBC'S Negative Normal NEGATIVE [facility] Comment on above: Performed By: #### U MAC, UMIC #### Testing performed at [address] [address] URINE WBC'S Negative Normal NEGATIVE [facility] Comment on above: Performed By: #### U MAC, UMIC #### Testing performed at [address] [address] XR CHEST 1 VIEW PORTABLEon 0 10-12-2023 XR CHEST 1 VIEW PORTABLE EXAM: XR CHEST 1 VIEW PORTABLE HISTORY: chest pain COMPARISON: CT chest 10/11/2023. TECHNIQUE: Single view chest. FINDINGS: There is moderate bibasilar consolidation and moderate bilateral pleural effusions. No pneumothorax. Heart size is borderline. Bones are unremarkable. IMPRESSION: Bibasilar consolidation with bilateral pleural effusions. Normal [facility] C REACTIVE PROTEINon 024 CRP [Mass/Vol] 158.6 mg/L High 0 - 10 MG/L [facility] Interpretation and review of laboratory results Abnormal [facility] CRP [Mass/Vol] 158.6 mg/L High 0-10 [facility] Comment on above: Performed By: #### C REACT, ESR ####Testing performed at [address] [address] CBCon 10-11-2023 ABSOLUTE BAS 0.0 10*3/uL Normal 0.0-0.2 [facility] Comment on above: Performed By: #### U MAC, UMIC #### Testing performed at [address] [place] [address] ABSOLUTE EOS 0.0 10*3/uL Normal 0.0-0.7 [facility] Comment on above: Performed By: #### U MAC, UMIC #### Testing performed at [address] [place] [address] ABSOLUTE NEUTROPHIL COUNT 8.0 10*3/uL High 1.4-6.5 [facility] Comment on above: Performed By: #### U MAC, U[facility] #### Testing performed at [address] [place] [address] Basophils/100 WBC (Bld) 0.2 % Normal 0.0-2.0 [facility] Comment on above: Performed By: #### U MAC, UMIC #### Testing performed at [address] [place] [address] DTYPE AUTO DIFF Normal [facility] Comment on above: Performed By: #### U MAC, UMIC #### Testing performed at [address] [address] Eosinophils/100 WBC (Bld) 0.0 % Normal 0.0-11.0 [facility] Comment on above: Performed By: #### U MAC, U[facility] #### Testing performed at [address] [address] Lymphocytes (Bld) [#/Vol] 0.9 10*3/uL Low 1.2-3.4 [facility] Comment on above: Performed By: #### U MAC, [facility] #### Testing performed at [address] [place] [address] Lymphocytes/100 WBC (Bld) 9.9 % Low 20.0-55.0 [facility] Comment on above: Performed By: #### U MAC, UMIC #### Testing performed at [address] [address] Monocytes (Bld) [#/Vol] 0.2 10*3/uL Normal 0.0-0.7 [facility] Comment on above: Performed By: #### U MAC, U[facility] #### Testing performed at [address] [place] [address] Monocytes/100 WBC (Bld) 2.1 % Normal 0.0-10.0 [facility] Comment on above: Performed By: #### U MAC, [facility] #### Testing performed at [address] [address] Neutrophils/100 WBC (Bld) 87.8 % High 37.0-75.0 [facility] Comment on above: Performed By: #### U MAC, U[facility] #### Testing performed at [address] [address] Erythrocyte distribution width (RBC) [Ratio] 14.7 % High 11.5-14.5 [facility] Comment on above: Performed By: #### U MAC, U[facility] #### Testing performed at [address] [address] Hematocrit (Bld) [Volume fraction] 39.3 % Normal 36.0-48.0 [facility] Comment on above: Performed By: #### U MAC, UMIC #### Testing performed at [address] [address] Hemoglobin (Bld) [Mass/Vol] 13.0 g/dL Normal 12.0-16.0 [facility] Comment on above: Performed By: #### U MAC, UMIC #### Testing performed at [address] [address] MCH (RBC) [Entitic mass] 28.1 pg Normal 26.0-35.0 [facility] Comment on above: Performed By: #### U MAC, UMIC #### Testing performed at [address] [address] MCHC (RBC) [Mass/Vol] 33.1 g/dL Normal 27.0-37.0 [facility] Comment on above: Performed By: #### U MAC, UMIC #### Testing performed at [address] [address] MCV (RBC) [Entitic vol] 84.7 fL Normal 80.0-100.0 [facility] Comment on above: Performed By: #### U MAC, UMIC #### Testing performed at [address] [address] Platelet mean volume (Bld) [Entitic vol] 7.7 fL Normal 7.4-11.0 [facility] Comment on above: Performed By: #### U ERIC, [facility] #### Testing performed at [address] [address] Platelets (Bld) [#/Vol] 232 10*3/uL Normal 130-400 [facility] Comment on above: Performed By: #### U MAC, UMIC #### Testing performed at [address] [address] RBC (Bld) [#/Vol] 4.63 10*6/uL Normal 4.0-5.4 [facility] Comment on above: Performed By: #### U ERIC, UM #### Testing performed at [address] [address] WBC (Bld) [#/Vol] 9.1 10*3/uL Normal 3.6-11.0 [facility] Comment on above: Performed By: #### U MAC, [facility] #### Testing performed at [address] [address] CBC, EDIF, PLATELETon 2023 ABSOLUTE BASOPHIL COUNT 0.0 10*3/uL 0.0 - 0.2 10*3/uL [facility] Basophils/100 WBC (Bld) 0.2 % 0.0 - 2.0 % [facility] Differential cell count method Nom (Bld) AUTO DIFF % [facility] Eosinophils (Bld) [#/Vol] 0.0 10*3/uL 0.0 - 0.7 10*3/uL [facility] Eosinophils/100 WBC (Bld) 0.0 % 0.0 - 11.0 % [facility] Erythrocyte distribution width (RBC) [Ratio] 14.7 % High 11.5 - 14.5 % [facility] Hematocrit (Bld) [Volume fraction] 39.3 % 36.0 - 48.0 % [facility] Hemoglobin (Bld) [Mass/Vol] 13.0 g/dL [facility] Interpretation and review of laboratory results Abnormal [facility] Lymphocytes (Bld) [#/Vol] 0.9 10*3/uL Low 1.2 - 3.4 10*3/uL [facility] Lymphocytes/100 WBC (Bld) 9.9 % Low 20.0 - 55.0 % [facility] MCH (RBC) [Entitic mass] 28.1 pg 26.0 - 35.0 PG [facility] MCHC (RBC) [Mass/Vol] 33.1 g/dL [facility] MCV (RBC) [Entitic vol] 84.7 fL [facility] Monocytes (Bld) [#/Vol] 0.2 10*3/uL 0.0 - 0.7 10*3/uL [facility] Monocytes/100 WBC (Bld) 2.1 % 0.0 - 10.0 % [facility] Neutrophils (Bld) [#/Vol] 8.0 10*3/uL High 1.4 - 6.5 10*3/uL [facility] Neutrophils/100 WBC (Bld) 87.8 % High 37.0 - 75.0 % [facility] Platelet mean volume (Bld) [Entitic vol] 7.7 fL [facility] Platelets (Bld) [#/Vol] 232 10*3/uL 130 - 400 10*3/uL [facility] RBC (Bld) [#/Vol] 4.63 10*6/uL 4.0 - 5.4 10*6/uL [facility] WBC (Bld) [#/Vol] 9.1 10*3/uL 3.6 - 11.0 10*3/uL [facility] CHEM 7 FASTINGon 10-11-2023 Chloride [Moles/Vol] 107 mmol/L Normal 98-107 [facility] Comment on above: Result Comment: Klaus baptiste note: Triglyceride levels of 600mg/dL or higher may positively bias chloride results by approximately 2.1 mmol Performed By: #### U MAC, [facility] #### Testing performed at [address] [address] CO2 [Moles/Vol] 21 mmol/L Low 22-30 [facility] Comment on above: Performed By: #### U MAC, [facility] #### Testing performed at [address] [address] Creatinine [Mass/Vol] 0.50 mg/dL Low 0.70-1.20 [facility] Comment on above: Performed By: #### U MAC, [facility] #### Testing performed at [address] [address] EST. GFR, 186 ml/min/1.73sq.m [facility] Comment on above: Performed By: #### U MAC, [facility] #### Testing performed at [address] [address] EST. GFR,Non 154 ml/min/1.73sq.m [facility] Comment on above: Performed By: #### U MAC, [facility] #### Testing performed at [address] [address] GFR Information Average GFR for 30-3 9 years old = 107. Normal [facility] Comment on above: Result Comment: Binding Cementer French Cord bentley Kidney disease, GFR = <60. Kidney failure, GFR = <15. The GFR estimate is not adjusted for extreme body surface area or acute process, nor has it been validated for women or ethnic groups other than and . Performed By: #### U MAC, [facility] #### Testing performed at [address] [address] Glucose [Mass/Vol] 239 mg/dL High 70-100 [facility] Comment on above: Result Comment: NORMAL <100 mg/dL PREDIABETES 101-126 mg/dL DIABETES 126 mg/dL or higher Performed By: #### U MAC, [facility] #### Testing performed at [address] [address] Potassium [Moles/Vol] 3.3 mmol/L Low 3.5-5.1 [facility] Comment on above: Performed By: #### U MAC, [facility] #### Testing performed at [address] [address] Sodium [Moles/Vol] 135 mmol/L Low 137-145 [facility] Comment on above: Performed By: #### U MAC, [facility] #### Testing performed at [address] [address] Urea nitrogen [Mass/Vol] 7 mg/dL Normal 7-20 [facility] Comment on above: Performed By: #### U [facility], [facility] #### Testing performed at [facility] [address] [place] [address] CHEM 7 (LYTES,BUN,CREA,GLUC) on 10-11-2023 Chloride [Moles/Vol] 107 mmol/L [facility] Comment on above: Please note: Triglyc eride levels of 600mg/dL or higher may positively bias chloride results by approximately 2.1 mmol CO2 [Moles/Vol] 21 mmol/L Low [facility] Creatinine [Mass/Vol] 0.50 mg/dL Low [facility] GFR COMMENT Average GFR for 30-3 9 years old = 107. [facility] Comment on above: Chronic Kidney disea se, GFR = <60. Kidney failure, GFR = <15. The GFR estimate is not adjusted for extreme body surface area or acute process, nor has it been validated for women or ethnic groups other than and . GFR/1.73 sq M.predicted among blacks MDRD (S/P/Bld) [Vol rate/Area] 186 mL/min/{1.73_m2} ml/min/1.73s q.m [facility] GFR/1.73 sq M.predicted among non-blacks MDRD (S/P/Bld) [Vol rate/Area] 154 mL/min/{1.73_m2} ml/min/1.73s q.m [facility] Glucose post fast [Mass/Vol] 239 mg/dL High [facility] Comment on above: NORMAL <100 mg/dL PREDIABETES 101-126 mg/dL DIABETES 126 mg/dL or higher Interpretation and review of laboratory results Abnormal [facility] Potassium [Moles/Vol] 3.3 mmol/L Low [facility] Sodium [Moles/Vol] 135 mmol/L Low [facility] Urea nitrogen [Mass/Vol] 7 mg/dL [facility] CT CHEST WITHOUT CONTRASTon 10-11-2023 CT [...] Tiny right pleural effusion. Mild cardiomegaly. Normal [facility] CT Chest WO contraston 10-10 [...] infiltrates. Tiny right pleural effusion. Mild cardiomegaly. [employer] Radiology [facility]narrative[facility] WO contrastOrdered By: Holly Stern on 10-11-2023 [employer] Work Phone: CT PE STUDYon 10-11-2023 CT [...] consolidation lung bases right greater than left. Stephenson to be inflammatory. 3. Small right pleural effusion slightly increased. Normal [facility] CT Pulmonary arteries for pu lmonary emboluson 10-11-2023 IMPRESSION: 1. No definite pulmonary artery embolus or thrombus although assessment of the distal vessels is limited as noted above. No evidence of right ventricular strain. 2. Worsening lung parikh with developing groundglass density in the upper and mid lungs, worsening consolidation lung bases right greater than left. Stephenson to be inflammatory. 3. Small right pleural [...] consolidation lung bases right greater than left. Stephenson to be inflammatory. 3. Small right pleural effusion slightly increased. [facility] Radiology Study observation (narrative) [facility] CT Pulmonary arteries for pu lmonary embolusOrdered By: Denny Fraser on 10-11-2023 [facility] Work Phone: D DIMERon 10-11-2023 D DIMER 1.05 ??g/ml Critically high <0.50 [facility] Comment on above: Result Comment: If r esult is greater than the cutoff value of 0.50 ??g/ml then the potential for PE or DVT exists. Other conditions exist which may cause a falsely elevated level. Please correlate clinically, including radiological findings and other clinical parameters. Result called to and read back by: EBONY PARRISH 10/11/2023 @ 16:24 by [facility] Performed By: #### D DIMER #### Testing performed at [facility] [address] [place] [address] D-DIMER,QUANTITATIVEon 10-10 Fibrin D-dimer FEU (PPP) [Mass/Vol] 1.05 Critically high NINF [facility] Comment on above: If result is greater than the cutoff value of 0.50 g/ml then the potential for PE or DVT exists. Other conditions exist which may cause a falsely elevated level. Please correlate clinically, including radiological findings and other clinical parameters. Result called to and read back by: EBONY PARRISH 10/11/2023 @ 16:24 by [facility] Interpretation and review of laboratory results Abnormal [facility] ESRon 10-11-2023 ESR (Bld) [Velocity] 58 mm/h High 0-15 [facility] Comment on above: Performed By: #### C REACT, ESR ####Testing performed at [address] [address] L PNEUMOPHILIA AG URINEon L PNEUMOPHILIA AG URINE Negative Normal NEGATIVE [facility] Comment on above: Performed By: #### S PAGUT, LPAGUT ####Testing performed at [address] [address] [facility] URINARY AGon 09-22 L. pneumophila 1 Ag IA Ql (U) Negative NEGATIVE [facility] MRSA SCREENon 10-11-2023 MRSA DNA JADYN+probe Ql (Unsp spec) Negative Normal NEGATIVE [facility] Comment on above: Performed By: #### M RSAST #### Testing performed at [place] [id number] [employer] SCREEN Negative Normal NEGATIVE [facility] Comment on above: Result Comment: TEST ING PERFORMED BY PCR Performed By: #### M RSAST #### [place] [address] No Panel Informationon 10-10 [facility] PROCALCITONINon 10-11-2023 PROCALCITONIN 0.09 ng/mL 0.00 - 0.25 ng/mL [facility] Comment on above: PCT Interpretation Less than 0.10 ng/mL, antibiotic therapy strongly discouraged. 0.10-0.25 ng/mL, antibiotic therapy discouraged. 0.25-0.50 ng/mL, antibiotic therapy encouraged. Greater than 0.50 ng/mL, antibiotic therapy strongly encouraged. [facility] PROCALCITONIN 0.09 ng/mL Normal 0.00-0.25 [facility] Comment on above: Result Comment: PCT Interpretation Less than 0.10 ng/mL, antibiotic therapy strongly discouraged. 0.10-0.25 ng/mL, antibiotic therapy discouraged. 0.25-0.50 ng/mL, antibiotic therapy encouraged. Greater than 0.50 ng/mL, antibiotic therapy strongly encouraged. Performed By: #### U MAC, UMIC #### [place] [address] S PNEUMONIAE AG URINEon 09-22 S PNEUMONIAE AG URINE Negative Normal NEGATIVE [facility] Comment on above: Performed By: #### S PAGUT, LPAGUT ####Testing performed at [address] [address] SCREEN: MRSA ONLY, NARES (IS OLATION SCREEN)on 10-11-2023 MRSA isol Org specific cx Ql (Nose) Negative NEGATIVE [facility] STAPHYOCOCCUS AUREUS BY PCR Negative NEGATIVE [facility] Comment on above: TESTING PERFORMED BY PCR [facility] SEDIMENTATION RATE, AUTOMATE Don 10-11-2023 ESR (Bld) [Velocity] 58 mm/h [facility] Interpretation and review of laboratory results Abnormal [facility] STREP PNEUMONIAE ANTIGEN, UR INEon 10-11-2023 S. pneumoniae Ag Ql (U) Negative NEGATIVE [facility] BETA HCG, QUAL, BLOODon 07- HCG ( test) Ql Negative NEGATIVE [facility] BLOOD CULTUREon 10-10-2023 Bacteria identified Cx Nom (Bld) SPECIMEN DESCRIPTION PERIPHERAL BLOOD DRAW SPECIAL REQUESTS RT AC CULTURE NO GROWTH 5 DAYS REPORT STATUS 10/16/2023 * Result Note: FINAL * Normal [facility] Comment on above: Performed By: #### B LC #### Testing performed at [address] [address] Bacteria identified Cx Nom (Bld) SPECIMEN DESCRIPTION PERIPHERAL BLOOD DRAW SPECIAL REQUESTS LT H CULTURE NO GROWTH 5 DAYS REPORT STATUS 10/16/2023 * Result Note: FINAL * Normal [facility] Comment on above: Performed By: #### B LC ####Testing performed at [address] [address] CBCon 10-10-2023 ABSOLUTE BAS 0.0 10*3/uL Normal 0.0-0.2 [facility] Comment on above: Performed By: #### C ED HOWE, ACBC #### Testing performed at [address] [address] ABSOLUTE EOS 0.0 10*3/uL Normal 0.0-0.7 [facility] Comment on above: Performed By: #### C ED HOWE, ACBC #### Testing performed at [address] [address] ABSOLUTE NEUTROPHIL COUNT 7.7 10*3/uL High 1.4-6.5 [facility] Comment on above: Performed By: #### C ED HOWE, ACBC #### Testing performed at [address] [address] Basophils/100 WBC (Bld) 0.3 % Normal 0.0-2.0 [facility] Comment on above: Performed By: #### C MPPriscilla, ED, ACBC #### Testing performed at [address] [place] [address] DTYPE AUTO DIFF Normal [facility] Comment on above: Performed By: #### C ED HOWE ACBC #### Testing performed at [address] [place] [address] Eosinophils/100 WBC (Bld) 0.1 % Normal 0.0-11.0 [facility] Comment on above: Performed By: #### C MPFED ACBC #### Testing performed at [address] [address] Lymphocytes (Bld) [#/Vol] 1.2 10*3/uL Normal 1.2-3.4 [facility] Comment on above: Performed By: #### C ED HOWE ACBC #### Testing performed at [address] [address] Lymphocytes/100 WBC (Bld) 12.9 % Low 20.0-55.0 [facility] Comment on above: Performed By: #### C MPFED ACBC #### Testing performed at [address] [address] Monocytes (Bld) [#/Vol] 0.5 10*3/uL Normal 0.0-0.7 [facility] Comment on above: Performed By: #### C MPFED, ACBC #### Testing performed at [address] [address] Monocytes/100 WBC (Bld) 5.0 % Normal 0.0-10.0 [facility] Comment on above: Performed By: #### C MPFED, ACBC #### Testing performed at [address] [place] [address] Neutrophils/100 WBC (Bld) 81.7 % High 37.0-75.0 [facility] Comment on above: Performed By: #### C MPFED, ACBC #### Testing performed at [address] [place] [address] Erythrocyte distribution width (RBC) [Ratio] 14.7 % High 11.5-14.5 [facility] Comment on above: Performed By: #### C MPF SHCGT ACBC #### Testing performed at [address] [address] Hematocrit (Bld) [Volume fraction] 38.5 % Normal 36.0-48.0 [facility] Comment on above: Performed By: #### C MPF SHCGT ACBC #### Testing performed at [address] [address] Hemoglobin (Bld) [Mass/Vol] 12.9 g/dL Normal 12.0-16.0 [facility] Comment on above: Performed By: #### C MPF SHCGT, ACBC #### Testing performed at [address] [address] MCH (RBC) [Entitic mass] 27.9 pg Normal 26.0-35.0 [facility] Comment on above: Performed By: #### C MPF SHCTORIN, ACBC #### Testing performed at [address] [address] MCHC (RBC) [Mass/Vol] 33.6 g/dL Normal 27.0-37.0 [facility] Comment on above: Performed By: #### C MPFED ACBC #### Testing performed at [address] [address] MCV (RBC) [Entitic vol] 82.8 fL Normal 80.0-100.0 [facility] Comment on above: Performed By: #### C MPF SHCGT, ACBC #### Testing performed at [address] [address] Platelet mean volume (Bld) [Entitic vol] 7.7 fL Normal 7.4-11.0 [facility] Comment on above: Performed By: #### C MPFED, ACBC #### Testing performed at [address] [address] Platelets (Bld) [#/Vol] 264 10*3/uL Normal 130-400 [facility] Comment on above: Performed By: #### C MPF SHCGT, ACBC #### Testing performed at [address] [address] RBC (Bld) [#/Vol] 4.64 10*6/uL Normal 4.0-5.4 [facility] Comment on above: Performed By: #### C ED HOWE ACBC #### Testing performed at [facility] [address] [place] [address] WBC (Bld) [#/Vol] 9.4 10*3/uL Normal 3.6-11.0 [facility] Comment on above: Performed By: #### C ED HOWE ACBC #### Testing performed at [address] [address] CBC, EDIF, PLATELETon 2023 ABSOLUTE BASOPHIL COUNT 0.0 10*3/uL 0.0 - 0.2 10*3/uL [facility] Basophils/100 WBC (Bld) 0.3 % 0.0 - 2.0 % [facility] Differential cell count method Nom (Bld) AUTO DIFF % [facility] Eosinophils (Bld) [#/Vol] 0.0 10*3/uL 0.0 - 0.7 10*3/uL [facility] Eosinophils/100 WBC (Bld) 0.1 % 0.0 - 11.0 % [facility] Erythrocyte distribution width (RBC) [Ratio] 14.7 % High 11.5 - 14.5 % [facility] Hematocrit (Bld) [Volume fraction] 38.5 % 36.0 - 48.0 % [facility] Hemoglobin (Bld) [Mass/Vol] 12.9 g/dL [facility] Interpretation and review of laboratory results Abnormal [facility] Lymphocytes (Bld) [#/Vol] 1.2 10*3/uL 1.2 - 3.4 10*3/uL [facility] Lymphocytes/100 WBC (Bld) 12.9 % Low 20.0 - 55.0 % [facility] MCH (RBC) [Entitic mass] 27.9 pg 26.0 - 35.0 PG [facility] MCHC (RBC) [Mass/Vol] 33.6 g/dL [facility] MCV (RBC) [Entitic vol] 82.8 fL [facility] Monocytes (Bld) [#/Vol] 0.5 10*3/uL 0.0 - 0.7 10*3/uL [facility] Monocytes/100 WBC (Bld) 5.0 % 0.0 - 10.0 % [facility] Neutrophils (Bld) [#/Vol] 7.7 10*3/uL High 1.4 - 6.5 10*3/uL [facility] Neutrophils/100 WBC (Bld) 81.7 % High 37.0 - 75.0 % [facility] Platelet mean volume (Bld) [Entitic vol] 7.7 fL [facility] Platelets (Bld) [#/Vol] 264 10*3/uL 130 - 400 10*3/uL [facility] RBC (Bld) [#/Vol] 4.64 10*6/uL 4.0 - 5.4 10*6/uL [facility] WBC (Bld) [#/Vol] 9.4 10*3/uL 3.6 - 11.0 10*3/uL [facility] CMP FASTINGon 10-10-2023 A:G RATIO 1.3 RATIO Normal [facility] Comment on above: Performed By: #### C MPF, SHCGT, ACBC ####Testing performed at [address] [address] ALBUMIN 4.0 G/dl Normal 3.5-5.0 [facility] Comment on above: Performed By: #### C MPF, SHCGT, ACBC ####Testing performed at [address] [address] ALP [Catalytic activity/Vol] 77 U/L Normal 38-126 [facility] Comment on above: Performed By: #### C MPF, SHCGT, ACBC ####Testing performed at [address] [address] ALT [Catalytic activity/Vol] 24 U/L Normal <35 [facility] Comment on above: Performed By: #### C MPF, SHCGT, ACBC ####Testing performed at [address] [address] AST [Catalytic activity/Vol] 24 U/L Normal 14-36 [facility] Comment on above: Performed By: #### C MPF, SHCGT, ACBC ####Testing performed at [address] [address] Bilirubin [Mass/Vol] 0.3 mg/dL Normal 0.2-1.3 [facility] Comment on above: Performed By: #### C ED HOWE ACBC ####Testing performed at [address] [address] Calcium [Mass/Vol] 8.6 mg/dL Normal 8.4-10.2 [facility] Comment on above: Performed By: #### C ED HOWE ACBC ####Testing performed at [address] [address] Chloride [Moles/Vol] 104 mmol/L Normal 98-107 [facility] Comment on above: Result Comment: Klaus baptiste note: Triglyceride levels of 600mg/dL or higher may positively bias chloride results by approximately 2.1 mmol Performed By: #### C ED HOWE ACBC ####Testing performed at [address] [address] CO2 [Moles/Vol] 22 mmol/L Normal 22-30 [facility] Comment on above: Performed By: #### C ED HOWE ACBC ####Testing performed at [address] [address] Creatinine [Mass/Vol] 0.58 mg/dL Low 0.70-1.20 [facility] Comment on above: Performed By: #### C ED HOWE ACBC ####Testing performed at [address] [address] EST. GFR, 157 ml/min/1.73sq.m [facility] Comment on above: Performed By: #### C ED HOWE ACBC ####Testing performed at [address] [address] EST. GFR,Non 130 ml/min/1.73sq.m Normal [facility] Comment on above: Performed By: #### C ED HOWE ACBC ####Testing performed at [address] [address] GFR Information Average GFR for 30-3 9 years old = 107. Normal [facility] Comment on above: Result Comment: Binding Cementer French Cord bentley Kidney disease, GFR = <60. Kidney failure, GFR = <15. The GFR estimate is not adjusted for extreme body surface area or acute process, nor has it been validated for women or ethnic groups other than and . Performed By: #### C ED HOWE ACBC ####Testing performed at [address] [address] Glucose [Mass/Vol] 126 mg/dL High 70-100 [facility] Comment on above: Result Comment: NORMAL <100 mg/dL PREDIABETES 101-126 mg/dL DIABETES 126 mg/dL or higher Performed By: #### C ED HOWE ACBC ####Testing performed at [address] [address] Potassium [Moles/Vol] 3.4 mmol/L Low 3.5-5.1 [facility] Comment on above: Performed By: #### C ED HOWE ACANTOLIN ####Testing performed at [address] [address] Protein [Mass/Vol] 7.2 g/dL Normal 6.3-8.2 [facility] Comment on above: Performed By: #### C ED HOWE ACBC ####Testing performed at [address] [address] Sodium [Moles/Vol] 134 mmol/L Low 137-145 [facility] Comment on above: Performed By: #### C ED HOWE ACBC ####Testing performed at [address] [address] Urea nitrogen [Mass/Vol] 7 mg/dL Normal 7-20 [facility] Comment on above: Performed By: #### C ED HOWE, ACBC ####Testing performed at [address] [address] COMPREHENSIVE METABOLIC PANE Nagi 10-10-2023 Albumin [Mass/Vol] 4.0 G/dl 3.5 - 5.0 G/dl [facility] Albumin/Globulin [Mass ratio] 1.3 {ratio} RATIO [facility] ALP [Catalytic activity/Vol] 77 U/L [facility] ALT [Catalytic activity/Vol] 24 U/L NINF [facility] AST [Catalytic activity/Vol] 24 U/L [facility] Bilirubin [Mass/Vol] 0.3 mg/dL [facility] Calcium [Mass/Vol] 8.6 mg/dL [facility] Chloride [Moles/Vol] 104 mmol/L [facility] Comment on above: Please note: Triglyc eride levels of 600mg/dL or higher may positively bias chloride results by approximately 2.1 mmol CO2 [Moles/Vol] 22 mmol/L [facility] Creatinine [Mass/Vol] 0.58 mg/dL Low [facility] GFR COMMENT Average GFR for 30-3 9 years old = 107. [facility] Comment on above: Chronic Kidney disea se, GFR = <60. Kidney failure, GFR = <15. The GFR estimate is not adjusted for extreme body surface area or acute process, nor has it been validated for women or ethnic groups other than and . GFR/1.73 sq M.predicted among blacks MDRD (S/P/Bld) [Vol rate/Area] 157 mL/min/{1.73_m2} ml/min/1.73s q.m [facility] GFR/1.73 sq M.predicted among non-blacks MDRD (S/P/Bld) [Vol rate/Area] 130 mL/min/{1.73_m2} ml/min/1.73s q.m [facility] Glucose post fast [Mass/Vol] 126 mg/dL High [facility] Comment on above: NORMAL <100 mg/dL PREDIABETES 101-126 mg/dL DIABETES 126 mg/dL or higher Interpretation and review of laboratory results Abnormal [facility] Potassium [Moles/Vol] 3.4 mmol/L Low [facility] Protein [Mass/Vol] 7.2 g/dL [facility] Sodium [Moles/Vol] 134 mmol/L Low [facility] Urea nitrogen [Mass/Vol] 7 mg/dL [facility] HCG ( test) Qlon [facility] INFLUENZA A AND B, PCRon FLUAV and FLUBV Ag IF Nom (Unsp spec) Negative NEGATIVE [facility] FLUBV Ag IA Ql (Unsp spec) Negative NEGATIVE [facility] Comment on above: TESTING PERFORMED BY JADYN [facility] LACTATE, BLOODon 10-10-2023 Lactate [Moles/Vol] 2.0 mmol/L 0.7 - 2. 0 mmol/L [facility] LACTATE,BLOODon 10-10-2023 Lactate [Moles/Vol] 2.0 mmol/L Normal 0.7-2.0 [facility] Comment on above: Performed By: #### C OVID #### [place] [address] NOVEL CORONAVIRUSon 10-10-19 24 NARRATIVE This test was perfor med using isothermal JADYN and has been approved as Emergency Use Authorization (EUA) for the qualitative detection [id number] nucleic acid. Normal [facility] Comment on above: Performed By: #### C OVID #### Testing performed at [place] [id number] SARS-CoV-2 (COVID-19) RNA JADYN+probe Ql (Unsp spec) Not detected Normal NOT DETECTED [facility] Comment on above: Result Comment: [...] #### C OVID #### Testing performed at [place] [id number] NOVEL CORONAVIRUS LAB 1 - NA SOPHARYNGEALon 10-10-2023 NARRATIVE -1 This test was perfor med using isothermal JADYN and has been approved as Emergency Use Authorization (EUA) for the qualitative detection [id number] nucleic acid. [facility] SARS-CoV-2 (COVID-19) RNA JADYN+probe Ql (Unsp spec) Not detected NOT DETECTED [facility] Comment on above: Negative results do [...] patient is critically ill or clinically deteriorating. [facility] RAPID FLU Aon 10-10-2023 INFLUENZA A Negative Normal NEGATIVE [facility] Comment on above: Performed By: #### R FLUAB ####[place] [address] INFLUENZA B Negative Normal NEGATIVE [facility] Comment on above: Result Comment: TEST ING PERFORMED BY JADYN Performed By: #### R FLUAB ####Testing performed at [place] [id number] SERUM HCG QUALon 10-10-2023 SERUM BETA HCG,QUAL Negative Normal NEGATIVE [facility] Comment on above: Performed By: #### C MPF, SHCGT, ACBC ####Testing performed at [place] [id number] XR CHEST PA AND LATERAL 2 EWSon [...] the lung bases. 2. Moderate cardiomegaly. Normal [facility] XR Chest PA and Lateralon [...] in the lung bases. 2. Moderate cardiomegaly. [facility] Radiology Study observation (narrative) [facility] XR Chest PA and LateralOrder ed By: Mansoor Ambrose on 10-10-2023 [facility] Work Phone: Basic metabolic 2000 panelon 01-28-2023 Anion gap [Moles/Vol] 13 mmol/L Normal 10-20 [facility] Comment on above: Performed By: #### 2 4321-2 #### DEION MASCORRO ([id number]) [facility] ([facility]) [facility] [place] [address] Calcium [Mass/Vol] 8.8 mg/dL Normal 8.6-10.3 [facility] Comment on above: Performed By: #### 2 4321-2 #### DEION MASCORRO ([id number]) [facility] ([facility]) [facility] [place] [address] Chloride [Moles/Vol] 104 mmol/L Normal 98-107 [facility] Comment on above: Performed By: #### 2 4321-2 #### DEION MASCORRO ([id number]) [facility] ([facility]) [facility] [place] [address] CO2 [Moles/Vol] 26 mmol/L Normal 21-[address] [facility] Comment on above: Performed By: #### 2 4321-2 #### DEION MASCORRO ([id number]) [facility] ([facility]) [address] [place] [address] Creatinine [Mass/Vol] 0.58 mg/dL Normal 0.50-1.05 [facility] Comment on above: Performed By: #### 2 4321-2 #### DEION MASCORRO ([id number]) [facility] ([facility]) [address] [place] [address] GFR/1.73 sq M.predicted MDRD (S/P/Bld) [Vol rate/Area] mL/min/{1.73_m2} Normal >60 [facility] Comment on above: Result Comment: Calc ulations of estimated GFR are performed using the 2020 CKD-EPI Study Refit equation without the race variable for the IDMS-Traceable creatinine methods. https://jasn.asnjournals.org/content/early//ASN.26480 71225 Performed By: #### 2 4321-2 #### DEION MASCORRO ([id number]) [facility] ([facility]) [address] [place] [address] Glucose [Mass/Vol] 78 mg/dL Normal 74-99 [facility] Comment on above: Performed By: #### 2 4321-2 #### DEION MASCORRO ([id number]) [facility] ([facility]) [address] [place] [address] Potassium [Moles/Vol] 4.2 mmol/L Normal 3.5-5.3 [facility] Comment on above: Performed By: #### 2 4321-2 #### DEION MASCORRO ([id number]) [facility] ([facility]) [address] [place] [address] Sodium [Moles/Vol] 139 mmol/L Normal 136-145 [facility] Comment on above: Performed By: #### 2 4321-2 #### DEION MASCORRO ([id number]) [facility] ([facility]) [address] [place] [address] Urea nitrogen [Mass/Vol] 14 mg/dL Normal 6-23 [facility] Comment on above: Performed By: #### 2 4321-2 #### DEION MASCORRO ([id number]) [facility] ([facility]) [address] [place] [address] CBC W Auto Differential pane l (Bld)on 01-28-2023 Basophils (Bld) [#/Vol] 0.05 x10*3/uL Normal 0.00-0.10 [facility] Comment on above: Performed By: #### 5 7021-8 #### DEION MASCORRO ([id number]) [facility] ([facility]) [address] [place] [address] Basophils/100 WBC (Bld) 0.4 % Normal 0.0-2.0 [facility] Comment on above: Performed By: #### 5 7021-8 #### DEION MASCORRO ([id number]) [facility] ([facility]) [address] [place] [address] Eosinophils (Bld) [#/Vol] 0.52 x10*3/uL Normal 0.00-0.70 [facility] Comment on above: Performed By: #### 5 7021-8 #### DEION MASCORRO ([id number]) [facility] ([facility]) [address] [place] [address] Eosinophils/100 WBC (Bld) 4.0 % Normal 0.0-6.0 [facility] Comment on above: Performed By: #### 5 7021-8 #### DEION MASCORRO ([id number]) [facility] ([facility]) [address] [place] [address] Erythrocyte distribution width (RBC) [Ratio] 16.1 % High 11.5-14.5 [facility] Comment on above: Performed By: #### 5 7021-8 #### DEION MASCORRO ([id number]) [facility] ([facility]) [address] [place] [address] Hematocrit (Bld) [Volume fraction] 42.9 % Normal 36.0-46.0 [facility] Comment on above: Performed By: #### 5 7021-8 #### DEION MASCORRO ([id number]) [facility] ([facility]) [address] [place] [address] Hemoglobin (Bld) [Mass/Vol] 13.2 g/dL Normal 12.0-16.0 [facility] Comment on above: Performed By: #### 5 7021-8 #### DEION MASCORRO ([id number]) [facility] ([facility]) [address] [place] [address] Immature granulocytes (Bld) [#/Vol] 0.06 x10*3/uL Normal 0.00-0.70 [facility] Comment on above: Performed By: #### 5 7021-8 #### DEION MASCORRO ([id number]) [facility] ([facility]) [address] [place] [address] Immature granulocytes/100 WBC (Bld) 0.5 % Normal 0.0-0.9 [facility] Comment on above: Result Comment: Dottie ture Granulocyte Count (IG) includes promyelocytes, myelocytes and metamyelocytes but does not include bands. Percent differential counts (%) should be interpreted in the context of the absolute cell counts (cells/UL). Performed By: #### 5 7021-8 #### DEION MASCORRO ([id number]) [facility] ([facility]) [address] [place] [address] Lymphocytes (Bld) [#/Vol] 4.25 x10*3/uL Normal 1.20-4.80 [facility] Comment on above: Performed By: #### 5 7021-8 #### DEION MASCORRO ([id number]) [facility] ([facility]) [address] [place] [address] Lymphocytes/100 WBC (Bld) 32.4 % Normal 13.0-44.0 [facility] Comment on above: Performed By: #### 5 7021-8 #### DEION MASCORRO ([id number]) [facility] ([facility]) [address] [place] [address] MCH (RBC) [Entitic mass] 26.1 pg Normal 26.0-34.0 [facility] Comment on above: Performed By: #### 5 7021-8 #### DEION MASCORRO ([id number]) [facility] ([facility]) [address] [place] [address] MCHC (RBC) [Mass/Vol] 30.8 g/dL Low 32.0-36.0 [facility] Comment on above: Performed By: #### 5 7021-8 #### DEION MASCORRO ([id number]) [facility] ([facility]) [address] [place], [place] [phone] MCV (RBC) [Entitic vol] 85 fL Normal 80-100 [facility] Comment on above: Performed By: #### 5 7021-8 #### DEION MASCORRO ([id number]) [facility] ([facility]) [address] [place], [place] [phone] Monocytes (Bld) [#/Vol] 0.64 x10*3/uL Normal 0.10-1.00 [facility] Comment on above: Performed By: #### 5 7021-8 #### DEION MASCORRO ([id number]) [facility] ([facility]) [address] [place] [address] Monocytes/100 WBC (Bld) 4.9 % Normal 2.0-10.0 [facility] Comment on above: Performed By: #### 5 7021-8 #### DEION MASCORRO ([id number])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 to supplemental testing in accordance with CDC guidelines.Performed at: [address] [id number] Director: Pancho Ray PhD, Phone: [phone] Cervical or vagninal specime n microscopic examination by cytology stain (reported ason 12-06-2021 Cytology report Cyto stain Doc (Cvx/Vag) Comment . [facility] Work Phone: Comment on above: [...] rRNA JADYN+probe Ql (Unsp spec) Negative Negative [facility] Work Phone: Laboratory - Cytologyon 11-22 Counter Attendant Cyto stain Nom (Cvx/Vag) [ID] Comment . [facility] Work Phone: Comment on above: Yuliya Garcia, Cytote chnologist (ASCP) Laboratory - Microbiology an d Antimicrobial susceptibilityon 12-06-2021 N. gonorrhoeae DNA JADYN+probe Ql (Unsp spec) Negative Negative [facility] Work Phone: Comment on above: Performed at: [address] [id number] Director: Lizz Franz MD, Phone: [phone] Laboratory - Miscellaneous t estson 12-06-2021 Service comment (Unsp spec) [Interp] Comment . [facility] Work Phone: Comment on above: This liquid based Th inPrep(R) pap test was screened withthe use of an image guided system. Service comment (Unsp spec) [Interp] . . [facility] Work Phone: No Panel Informationon 12-06 Human Papillomavirus Screen Comment . [facility] Work Phone: Comment on above: The HPV DNA reflex c naina were not met with this specimenresult therefore, no HPV testing was performed.Performed at: - [facility], [place], [place] [id number] Director: Lizz Franz MD, Phone: [phone] Pathology report final diagnosis Narrative Comment . [facility] Work Phone: Comment on above: NEGATIVE FOR INTRAEP ITHELIAL LESION OR MALIGNANCY.CELLULAR CHANGES ASSOCIATED WITH INFLAMMATION ARE PRESENT. HEPATITIS B SURFACE AGon HEP.B SURFACE AG Non-Reactive Normal NONREACTIVE [facility] Comment on above: Result Comment: Biot in interference may cause falsely decreased results. Patients taking a Biotin dose of up to 5 mg/day should refrain from taking Biotin for 24 hours before sample collection. Providers may contact their local laboratory for further information. Performed By: #### H BSAG #### [facility] [address] [place] [address] HIV 1/2 ANTIGEN/ANTIBODY SCR EEN WITH REFLEX TO CONFIRMATIONon 11-22-2021 HIV 1/2 AG/AB SCREEN Non-Reactive Normal NONREACTIVE [facility] Comment on above: Result Comment: HIV Ag/Ab screen is performed using the Siemens Tianjin Bonna-Agela TechnologiesllSellABand HIV Ag/Ab Combo assay which detects the presence of HIV p24 antigen as well as antibodies to HIV-1 (Group M and O) and HIV-2. . No laboratory evidence of HIV infection. If acute HIV infection is suspected, consider testing for HIV RNA by PCR (viral load). Performed By: #### H IV #### [facility] [address] [place] [address] RUBELLA IGG ABon 11-22-2021 RUBELLA IGG AB Negative Normal [facility] Comment on above: Result Comment: INTE RPRETATIVE [...] assays. Performed By: #### R UBIG #### [facility] [address] [place] [address] SYPHILIS SCREENING WITH REFL EXon 11-22-2021 SYPHILIS TOTAL AB Non-Reactive Normal NONREACTIVE [facility] Comment on above: Result Comment: No s ignificant level of Treponema pallidum antibody detected. Repeat testing in 2 to 4 weeks may be considered if early infection or incubating syphilis infection is suspected. Performed By: #### S YPHR #### [facility] [address] [id number] TYPE + SCREENon 11-22-2021 ABO TYPE O Normal [facility] Comment on above: Performed By: #### T +S #### [facility] [address] [place] [address] RH TYPE Positive Normal [facility] Comment on above: Performed By: #### T +S #### [facility] [address] [place] [address] CBC AND DIFFERENTIALon 11-21 Basophils (Bld) [#/Vol] 0.00 10*3/uL Normal 0.00 - 0.10 [facility] Comment on above: Performed By: #### C BCDF #### [address] [address] Basophils/100 WBC (Bld) 0.4 % Normal 0.0 - 2.0 [facility] Comment on above: Performed By: #### C BCDF #### [address] [address] Eosinophils (Bld) [#/Vol] 0.30 10*3/uL Normal 0.00 - 0.70 [facility] Comment on above: Performed By: #### C BCDF #### [address] [address] Eosinophils/100 WBC (Bld) 2.4 % Normal 0.0 - 6.0 [facility] Comment on above: Performed By: #### C BCDF #### [address] [place] [address] Erythrocyte distribution width (RBC) [Ratio] 14.5 % Normal 11.5 - 14.5 [facility] Comment on above: Performed By: #### C BCDF #### [address] [address] Hematocrit (Bld) [Volume fraction] 39.5 % Normal 36.0 - 46.0 [facility] Comment on above: Performed By: #### C BCDF #### [address] [address] Hemoglobin (Bld) [Mass/Vol] 12.8 g/dL Normal 12.0 - 16.0 [facility] Comment on above: Performed By: #### C BCDF #### [address] [address] Lymphocytes (Bld) [#/Vol] 3.30 10*3/uL Normal 1.20 - 4.80 [facility] Comment on above: Performed By: #### C BCDF #### [address] [address] Lymphocytes/100 WBC (Bld) 24.7 % Normal 13.0 - 44.0 [facility] Comment on above: Performed By: #### C BCDF #### [address] [address] MCHC (RBC) [Mass/Vol] 32.5 g/dL Normal 32.0 - 36.0 [facility] Comment on above: Performed By: #### C BCDF #### [address] [address] MCV (RBC) [Entitic vol] 80 fL Normal 80 - 100 [facility] Comment on above: Performed By: #### C BCDF #### [address] [address] Monocytes (Bld) [#/Vol] 0.90 10*3/uL Normal 0.10 - 1.00 [facility] Comment on above: Performed By: #### C BCDF #### [address] [address] Monocytes/100 WBC (Bld) 6.5 % Normal 2.0 - 10.0 [facility] Comment on above: Performed By: #### C BCDF #### [address] [address] Neutrophils (Bld) [#/Vol] 9.00 10*3/uL High 1.20 - 7.70 [facility] Comment on above: Result Comment: Perc ent differential counts (%) should be interpreted in the context of the absolute cell counts (cells/L). Performed By: #### C BCDF #### [address] [address] Neutrophils/100 WBC (Bld) 66.0 % Normal 40.0 - 80.0 [facility] Comment on above: Performed By: #### C BCDF #### [address] [address] Platelets (Bld) [#/Vol] 366 10*3/uL Normal 150 - 450 [facility] Comment on above: Performed By: #### C BCDF #### [address] [address] RBC 4.94 x10E12/L Normal 4.00 - 5.20 [facility] Comment on above: Performed By: #### C BCDF #### [address] [address] WBC (Bld) [#/Vol] 13.6 10*3/uL High 4.4 - 11.3 [facility] Comment on above: Performed By: #### C BCDF #### [address] [address] Complete Blood Count + Diffe jennifer 11-21-2021 Basophils/100 WBC (Bld) 0.4 % 0.0 - 2.0 [employer] Work Phone: Erythrocyte distribution width (RBC) [Ratio] 14.5 % See Below [facility] Work Phone: Comment on above: Reference Range: 11. 5 - 14.5 Hematocrit (Bld) [Volume fraction] 39.5 % See Below [address] [facility] [employer] Work Phone: Comment on above: Reference Range: 36. 0 - 46.0 Hemoglobin (Bld) [Mass/Vol] 12.8 g/dL See Below [place]City[place] [address] [employer] Work Phone: Comment on above: Reference Range: 12. 0 - 16.0 Lymphocytes/100 WBC (Bld) 24.7 % See Below [facility] [place] [address] [employer] Work Phone: [phone] Comment on above: Reference Range: 13. 0 - 44.0 MCHC (RBC) [Mass/Vol] 32.5 g/dL See Below [facility] centerOrthoHelix Surgical DesignsKevin [place] [address] [employer] Work Phone: Comment on above: Reference Range: 32. 0 - 36.0 MCV (RBC) [Entitic vol] 80 fL 80 - 100 [place] [address] [employer] Work Phone: [phone] Monocytes/100 WBC (Bld) 6.5 % 2.0 - 10.[address] [facility] [employer] Work Phone: [phone] Neutrophils/100 WBC (Bld) 66.0 % See Below [address] [place] [address] [employer] Work Phone: Comment on above: Reference Range: 40. 0 - 80.0 Platelets (Bld) [#/Vol] 366 10*3/uL 150 - 450 [address] [place] [address] [employer] Work Phone: [phone] RBC (Bld) [#/Vol] 4.94 {x10E12/L} See Below [facility] [place] [address] [employer] Work Phone: Comment on above: Reference Range: 4.0 0 - 5.20 WBC (Bld) [#/Vol] 13.6 10*3/uL above high threshold 4.4 - 11.3 [address] [place] [address] [employer] Work Phone: Complete Blood Count + Differential 0.00 {x10E9/L} See Below [place] [address] [employer] Work Phone: Comment on above: Reference Range: 0.0 0 - 0.10 Complete Blood Count + Differential 0.30 {x10E9/L} See Below [place] [address] [facility] Work Phone: Comment on above: Reference Range: 0.0 0 - 0.70 Complete Blood Count + Differential 0.90 {x10E9/L} See Below [place] [address] [employer] Work Phone: Comment on above: Reference Range: 0.1 0 - 1.00 Complete Blood Count + Differential 3.30 {x10E9/L} See Below [facility] System[facility] SkisDonald [place] [address] [employer] Work Phone: Comment on above: Reference Range: 1.2 0 - 4.80 Complete Blood Count + Differential 9.00 {x10E9/L} above high threshold See Below [place] [address] [facility] Work Phone: Comment on above: Reference Range: 1.2 0 - 7.70 Percent differential counts (%) should be interpreted in the context of the absolute cell counts (cells/L). Complete Blood Count + Differential 2.4 % 0.0 - 6.0 [place] [address] [employer] Work Phone: HEPATITIS B SURFACE AGon Lab Specimen Source Normal [facility] Comment on above: Performed By: #### H BSAG #### [facility] [address] [place] [address] Performed By: #### H IV #### [facility] [address] [place] [address] HIV 1/2 ANTIGEN/ANTIBODY SCR EEN WITH REFLEX TO CONFIRMATIONon 11-21-2021 HIV 1+2 Ab Qn (S) Non-Reactive See Below [address] Work Phone: Comment on above: SOURCE: Reference Ra nge: NONREACTIVE HIV Ag/Ab screen is performed using the Siemens Tianjin Bonna-Agela TechnologiesllSellABand HIV Ag/Ab Combo assay which detects the presence of HIV p24 antigen as well as antibodies to HIV-1 (Group M and O) and HIV-2..No laboratory evidence of HIV infection. If acute HIV infection is suspected, consider testing for HIV RNA by PCR (viral load). Hepatitis B Surface Antigeno n 11-21-2021 Hepatitis B Surface Antigen Non-Reactive See Below [facility] [employer] Work Phone: Comment on above: SOURCE: Reference Ra nge: NONREACTIVE Biotin interference may cause falsely decreased results. Patients taking a Biotin dose of up to 5 mg/day should refrain from taking Biotin for 24 hours before sample collection. Providers may contact their local laboratory for further information. IO HCG, Urine Test on 11-21-2021 HCG ( test) Ql (U) Positive [facility] [employer] Work Phone: LMPon 11-21-2021 Last menstrual period start date [id number] [facility] [employer] Work Phone: Laboratory - Blood bankon ABO group Nom (Bld) O Women [facility] [employer] Work Phone: Blood group antibody screen Ql Negative [facility] hospitalOrthoHel[facility] Surgical DesignsH[facility] Work Phone: Rh immune globulin screen (Bld) [Interp] Positive [facility] [employer] Work Phone: Laboratory - Chemistry and C hemistry - challengeon 11-21-2021 TSH Qn 1.46 m[IU]/L See Below [facility] [employer] Work Phone: Comment on above: Reference Range: 0.4 4 - 3.98 TSH testing is performed using different testing methodology at [facility] than at other [facility] hospitals. Direct result comparisons should only be made within the same method. VISION TEACHER - Office Visiton 10-24 VISION TEACHER - Office Visit Diagnoses/Problems Assessed 8 weeks [...] TABS Vitals Vital Signs Recorded: 21Nov2021 01:23PM Znoaisuf523 Qvtqptpgp10 Height5 ft 4 in Llrtkp561 lb BMI Oivbxgxuyv70.23 kg/m2 BSA Calculated2.14 [id number] Physical Exam Constitutional: Healthy-appearing in no physical [...] Nov 21 2021 1:41PM EST (Author) Normal [employer] Rubella IgG Antibodyon 11-21 Rubella virus IgG IA Ql Negative AppointmentCityA [employer] Phone: Comment on above: INTERPRETATIVE COMME NT [...] IgG+IgM IA Ql (S) Non-Reactive See Below [facility] [address] Work Phone: Comment on above: Reference Range: NON REACTIVENo significant level of Treponema pallidum antibody detected. Repeat testing in 2 to 4 weeks may be considered if early infection or incubating syphilis infection is suspected. TSH WITH REFLEX TO FREE T4 I F ABNORMALon 11-21-2021 TSH Qn 1.46 m[IU]/L Normal 0.44 - 3.98 [facility] Comment on above: Result Comment: TSH testing is performed using different testing methodology at [facility] than at other [facility]. Direct result comparisons should only be made within the same method. Performed By: #### T HYDS #### [facility] [address] [place] [address] ANES Lucho 12-21-2018 ANES POST HNO ID: [id number] Author: Mayank Hall Service: Anesthesiology Author Type: [...] 21, 2018 TIME: 10:24 AM PAGER/CONTACT #: [phone] [facility] ANES POST HNO ID: [id number] Author: Inocencia Fall Service: Anesthesiology Author Type: [...] 21, 2018 TIME: 10:36 AM PAGER/CONTACT #: [phone] [facility] ANES PREOPon 12-21-2018 ANES PREOP HNO ID: [id number] Author: Inocencia Fall Service: Anesthesiology Author Type: [...] disorder (HCC) - Childhood asthma - Endometriosis CUSTOMS CONSULTANT: [facility] - GERD (gastroesophageal reflux disease) - Iron [...] December 21, 2018 TIME: 7:17 AM CSN: [id number] [facility] BRIEF OP NOTon 12-21-2018 BRIEF OP NOT HNO ID: [id number] Author: Jessica Reardon DPM Service: Podiatry Author Type: Resident Type: Brief Op Note Filed: 12/21/2018 8:28 AM Note Text: -------- Attestation signed by Sparkle Dave at 12/22/2018 9:35 PM I was present and agree with resident brief op note Sparkle Dave DPM -------- BRIEF OP NOTE LOG ID: [id number] Surgery/Procedure Date: 12/21/2018 Incision/Procedure Start Time: 7:59 AM Incision Close/Procedure End Time: 8:22 AM Surgeon(s)/Proceduralist (s) and Director Of Product Marketing(s): Surgeon(s) and Role: * Sparkle Dave - Primary * Jesscia Reardon DPM - Resident - Assisting Procedure(s): [...] 21, 2018 TIME: 8:25 AM PAGER/CONTACT #: [facility] HISTORY PHYSICALon HISTORY PHYSICAL HNO ID: [id number] Author: Sparkle Dave Service: Podiatry Author Type: [...] disorder (HCC) - Childhood asthma - Endometriosis CUSTOMS CONSULTANT: [facility] - GERD (gastroesophageal reflux disease) - Iron [...] Prophylaxis/Anticoagulan ts 12/21/18 0700 pneumatic compression stockings (ar,ca) SIGNATURE: Sparkle Dave DPM PATIENT NAME: Anai Webber DATE: December 21, 2018 TIME: 7:02 AM PAGER/CONTACT #: [phone] [facility] OPERATIVE NOon 12-21-2018 OPERATIVE NO HNO ID: [id number] Author: Sparkle Dave Service: Podiatry Author Type: Physician Type: Operative Report Filed: 12/22/2018 9:32 PM Note Text: OPERATIVE/PROCEDURE REPORT LOG ID: [id number] SURGERY/PROCEDURE DATE: 12/21/2018 INCISION/PROCEDURE START TIME: 7:59 AM INCISION CLOSE/PROCEDURE END TIME: 8:22 AM SURGEON(S)/PROCEDURALIST (S) AND DEALER ACCOUNTS INVESTIGATOR(S): Surgeon(s) and Role: * Sparkle Dave - Primary * Jessica Reardon DPM - Resident - Assisting Physician Director Of Product Marketing: Yg Ernandez (Pa) (Jeremi) Barrie SURGERY/PROCEDURE(S): co2 laser of benign skin lesion, left foot ANESTHESIA: General SURGERY/PROCEDURE DETAILS: patient is a 23 year old female who has chronic skin lesion to left heel. This has been present for long duration. She has seen a senior trial attorney who was treating the lesion weekly with debridement and salicyclic acid. Patient states she was seeing the senior trial attorney weekly for over 8 weeks but no [...] 21, 2018 TIME: 11:05 AM PAGER/CONTACT #: [facility] PLAN OF CAREon 12-21-2018 PLAN OF CARE HNO ID: [id number] Author: Abbey Dotson ([employer]) Service: Pharmacy Author Type: ? 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 Patient to use [facility] Bedside Delivery - YES Insurance Information as follows: 2. Insurance card on file - YES 3. Credit card for payment - YES PHARMACY BEDSIDE DELIVERY SERVICE Patient Name: Anai Webber The marked outpatient medications were Filled at: [place] and delivered to the patient's bedside to pharmacy picker tender Medication List START taking these medications traMADol [...] (7) Dspk Commonly known as: LaMICtal Starter (Rice) Kit Take 25 mg by mouth once [...] or your Primary Care Provider. Abbey Dotson ([employer]) PAGER: [phone] December 21, 2018 9:37 AM [facility] PROGRESSon 12-21-2018 PROGRESS HNO ID: [id number] Author: Jessica Reardon DPM Service: Podiatry Author [...] December 21, 2018 TIME: 6:57 AM PAGER: [facility] PT EDon 12-21-2018 PT ED HNO ID: [id number] Author: Matthew (Rn) JOANIE Anthony Service: Nursing [...] Signed By: Matthew Anthony RN In Department: [facility] SURGERY [facility] PT ED HNO ID: [id number] Author: Matthew (Rn) JOANIE Anthony Service: Nursing [...] Signed By: Matthew Anthony RN In Department: [facility] SURGERY [facility] SURGICAL PATHOLOGYon 019 SURGICAL PATHOLOGY Specimen originated from [facility] Specimen #: [id number] Submitting Physician: SPARKLE DAVE DPM __ FINAL [...] in one cassette. Gross examination performed at [facility], [address] [place] [address] 12/21/2018 5:09:51 PM Date of Report: 12/23/2018 Date of Procedure: 12/21/2018 Date of Receipt: 12/21/2018 Submitted by: SPARKLE DAVE DPM Location: [facility] Diagnostic interpretation performed at [facility], [address] [place] [address]. CLIA Number: [id number] [facility] NURSING PROGon 12-15-2018 NURSING PROG HNO ID: [id number] Author: Gwendolyn ValentinoRn) JOANIE Tran Service: ? [...] Tran RN December 15, 2018 12:34 PM [facility] HOSPon 12-03-2018 HOSP Patient:Anai Webber MRN: [...] 12/09/2018 46.0 36.0 Progress Notes (PSYL ADULT [facility]): SAMMY Dillon 12/17/2018 8:58 AM Signed Behavioral Health Social Work Progress Note Encounter Type: Update [facility] contacted Pt at [phone] for f/u [facility] was calling to clarify Pt's insurance and to assist Pt with resources. Pt stated she will be losing her [employer] insurance in -20 Pt stated she [facility] and has an appt for intake on 01-06-19 at 3:30pm Pt is concerned about the amount of time she will need to take off work, she will not be able to see a counselor and a psychiatrist on a monthly basis. -[facility] encouraged Pt to address this with the [facility] when she attends her appt -[facility] stated it is his understanding that when a Pt is stabilized with their symptoms appts with the psychiatrist can be spaced further apart, allowing for Pt to see a counselor. -Pt stated she previously received services at [facility] and they required Pt be seen by psychiatrist on monthly basis -[facility] stated each agency/provider have different criteria therefore encouraged Pt to discuss her concerns at the first visit. -Pt agreed Pt was reminded of the crisis # [phone] Pt was reminded of [facility]'s contact # [phone]. Pt declined [facility] f/u with her, I'm all set [facility] reminded Pt if she has any behavioral health needs in the future to please contact [facility] Pt voiced understanding. No further contact is indicated at this time. Pt has an appt at the [facility] on 01-06-19. Pt has [facility]'s contact info. Omkar Graylexis HOT DIE PRESS FEEDERChanda December 17, 2018 Hamzah Angela MD 12/17/2018 8:59 AM Signed Agree thanks. Progress Notes ([facility]): Melva Rodarte LPN 12/16/2018 8:14 AM [...] before bedtime or any changes. Patient uses [facility] for her pharmacy. Please advise Hamzah Angela [...] another week again from PCP notes. Normal [facility] Culture, urine Bacteria identified Cx Nom (U) Presumptive Lactobacillus sp. [facility] Work Phone: Vital Signs Date Time Vital Sign Value Performing Clinician Facility 09-02-2024 11:25-0400 Body height 162.56 cm No Primary Care Physician [facility] 09-02-2024 11:25-0400 Body mass index (BMI) [Ratio] 48.4 kg/m2 No Primary Care Physician [facility] 09-02-2024 11:25-0400 Body weight 128.02 kg No Primary Care Physician [facility] 09-02-2024 11:25-0400 Diastolic blood pressure 84 mm[Hg] No Primary Care Physician [facility] 09-02-2024 11:25-0400 Systolic blood pressure 120 mm[Hg] No Primary Care Physician [facility] 08-26-2024 13:15-0400 Body height 162.56 cm No Primary Care Physician [facility] 08-26-2024 13:14-0400 Body mass index (BMI) [Ratio] 48.2 kg/m2 No Primary Care Physician [facility] 08-26-2024 13:14-0400 Body weight 127.57 kg No Primary Care Physician [facility] 08-26-2024 13:14-0400 Diastolic blood pressure 80 mm[Hg] No Primary Care Physician [facility] 08-26-2024 13:14-0400 Systolic blood pressure 119 mm[Hg] No Primary Care Physician [facility] 08-11-2024 13:27-0400 Diastolic blood pressure 89 mm[Hg] No Primary Care Physician [facility] 08-11-2024 13:27-0400 Heart rate 100 /min No Primary Care Physician [facility] 08-11-2024 13:27-0400 Systolic blood pressure 128 mm[Hg] No Primary Care Physician [facility] 08-11-2024 13:01-0400 Body height 162.56 cm No Primary Care Physician [facility] 08-11-2024 13:01-0400 Body mass index (BMI) [Ratio] 47.5 kg/m2 No Primary Care Physician [facility] 08-11-2024 13:01-0400 Body weight 125.64 kg No Primary Care Physician [facility] 08-11-2024 12:55-0400 Body temperature 98.1 [degF] No Primary Care Physician [facility] 08-11-2024 12:55-0400 Respiratory rate 13 /min No Primary Care Physician [facility] 08-11-2024 12:55-0400 SaO2% (BldA) [Mass fraction] 100 % No Primary Care Physician [facility] 08-11-2024 12:54-0400 SaO2% (BldA) [Mass fraction] 96 % No Primary Care Physician [facility] 08-11-2024 10:10-0400 Body height 162.56 cm No Primary Care Physician [facility] 08-11-2024 10:10-0400 Body mass index (BMI) [Ratio] 47.6 kg/m2 No Primary Care Physician [facility] 08-11-2024 10:10-0400 Body weight 125.87 kg No Primary Care Physician [facility] 08-11-2024 10:10-0400 Diastolic blood pressure 87 mm[Hg] No Primary Care Physician [facility] 08-11-2024 10:10-0400 Systolic blood pressure 121 mm[Hg] No Primary Care Physician [facility] 07-27-2024 13:40-0400 Body height 162.56 cm No Primary Care Physician [facility] 07-27-2024 13:40-0400 Body mass index (BMI) [Ratio] 47.7 kg/m2 No Primary Care Physician [facility] 07-27-2024 13:40-0400 Body weight 126.15 kg No Primary Care Physician [facility] 07-27-2024 13:40-0400 Diastolic blood pressure 86 mm[Hg] No Primary Care Physician [facility] 07-27-2024 13:40-0400 Systolic blood pressure 126 mm[Hg] No Primary Care Physician [facility] 07-13-2024 14:55-0400 Body mass index (BMI) [Ratio] 47.2 kg/m2 No Primary Care Physician [facility] 07-13-2024 14:55-0400 Body weight 124.9 kg No Primary Care Physician [facility] 07-13-2024 14:55-0400 Diastolic blood pressure 76 mm[Hg] No Primary Care Physician [facility] 07-13-2024 14:55-0400 Systolic blood pressure 117 mm[Hg] No Primary Care Physician [facility] 06-30-2024 14:36-0400 Body height 162.56 cm No Primary Care Physician [facility] 06-30-2024 14:31-0400 Body mass index (BMI) [Ratio] 46.7 kg/m2 No Primary Care Physician [facility] 06-30-2024 14:31-0400 Body weight 123.54 kg No Primary Care Physician [facility] 06-30-2024 14:31-0400 Diastolic blood pressure 86 mm[Hg] No Primary Care Physician [facility] 06-30-2024 14:31-0400 Systolic blood pressure 124 mm[Hg] No Primary Care Physician [facility] 06-21-2024 21:15-0400 Body height 162.56 cm No Primary Care Physician [facility] 06-21-2024 21:15-0400 Body mass index (BMI) [Ratio] 46.6 kg/m2 No Primary Care Physician [facility] 06-21-2024 21:15-0400 Body weight 123.3 kg No Primary Care Physician [facility] 06-21-2024 21:00-0400 Body temperature 97.8 [degF] No Primary Care Physician [facility] 06-21-2024 21:00-0400 Respiratory rate 16 /min No Primary Care Physician [facility] 06-21-2024 20:59-0400 Diastolic blood pressure 64 mm[Hg] No Primary Care Physician [facility] 06-21-2024 20:59-0400 Heart rate 90 /min No Primary Care Physician [facility] 06-21-2024 20:59-0400 SaO2% (BldA) [Mass fraction] 97 % No Primary Care Physician [facility] 06-21-2024 20:59-0400 Systolic blood pressure 119 mm[Hg] No Primary Care Physician [facility] 06-16-2024 14:12-0400 Body mass index (BMI) [Ratio] 46.7 kg/m2 No Primary Care Physician [facility] 06-16-2024 14:12-0400 Body weight 123.37 kg No Primary Care Physician [facility] 06-16-2024 14:12-0400 Diastolic blood pressure 87 mm[Hg] No Primary Care Physician [facility] 06-16-2024 14:12-0400 Systolic blood pressure 125 mm[Hg] No Primary Care Physician [facility] 04-21-2024 13:38-0500 Body mass index (BMI) [Ratio] 46.3 kg/m2 No Primary Care Physician [facility] 04-21-2024 13:38-0500 Body weight 122.46 kg No Primary Care Physician [facility] 04-21-2024 13:38-0500 Diastolic blood pressure 76 mm[Hg] No Primary Care Physician [facility] 04-21-2024 13:38-0500 Systolic blood pressure 111 mm[Hg] No Primary Care Physician [facility] 03-26-2024 13:14-0500 Body mass index (BMI) [Ratio] 46.4 kg/m2 No Primary Care Physician [facility] 03-26-2024 13:14-0500 Body weight 122.64 kg No Primary Care Physician [facility] 03-26-2024 13:14-0500 Diastolic blood pressure 81 mm[Hg] No Primary Care Physician [facility] 03-26-2024 13:14-0500 Systolic blood pressure 118 mm[Hg] No Primary Care Physician [facility] 03-10-2024 18:30-0500 Body height 162.6 cm Lenard Santiago [employer] INSPECT[employer] Work Phone: [facility] 03-10-2024 18:30-0500 Body mass index (BMI) [Ratio] 45.57 kg/m2 Lenard Santiago [employer]RO[employer] INSPECTOR Work Phone: [facility] 03-10-2024 18:30-0500 Body temperature 97.7 [degF] Lenard Santiago [employer] MA[employer]RO[employer] INSPECTOR Work Phone: [facility] 03-10-2024 18:30-0500 Body weight 120.43 kg Lenard Santiago [employer] MA[employer]RO[employer] INSPECTOR Work Phone: [facility] 03-10-2024 18:30-0500 Diastolic blood pressure 81 mm[Hg] Lenard Santiago [employer]RO[employer] INSPECTOR Work Phone: [facility] 03-10-2024 18:30-0500 Heart rate 99 /min Lenard Santiago [employer] MA[employer]RO[employer] INSPECTOR Work Phone: [facility] [facility] 03-10-2024 18:30-0500 Respiratory rate 15 /min Lenard Santiago [employer]RO[employer] INSPECTOR Work Phone: [facility] 03-10-2024 18:30-0500 SaO2% (BldA) [Mass fraction] 96 % Lenard Santiago [employer] MA[employer]RO[employer] INSPECTOR Work Phone: [facility] 03-10-2024 18:30-0500 Systolic blood pressure 115 mm[Hg] Lenard Santiago [employer]RO[employer] INSPECTOR Work Phone: [facility] 10-14-2023 10:51-0400 Body temperature 98.71 [degF] Uzair Cabrera MD Work Phone: [employer] [facility] 10-14-2023 10:51-0400 Diastolic blood pressure 80 mm[Hg] Uzair Cabrera MD Work Phone: [employer] [facility] 10-14-2023 10:51-0400 Heart rate 80 /min Uzair Cabrera MD Work Phone: [employer] [facility] 10-14-2023 10:51-0400 Respiratory rate 17 /min Uzair Cabrera MD Work Phone: [employer] [facility] 10-14-2023 10:51-0400 SaO2% (BldA) [Mass fraction] 90 % Uzair Cabrera MD Work Phone: [employer] [facility] 10-14-2023 10:51-0400 Systolic blood pressure 150 mm[Hg] Uzair Cabrera MD Work Phone: [employer] 10-14-2023 07:36-0400 Body height 162.6 cm Uzair Cabrera MD Work Phone: [employer] [facility] 10-14-2023 07:36-0400 Body mass index (BMI) [Ratio] 46.96 kg/m2 Uzair Cabrera MD Work Phone: [facility] 10-14-2023 07:36-0400 Body weight 124.15 kg Uzair Cabrera MD Work Phone: [facility] 10-13-2023 11:25-0400 SaO2% (BldA) [Mass fraction] 95.1 % Uzair Cabrera MD Work Phone: [facility] 09-18-2022 07:51-0400 Blood Pressure Location Alexander Gudimella [facility] 09-18-2022 07:51-0400 Diastolic blood pressure 68 mm[Hg] Alexander Gudimella [facility] 09-18-2022 07:51-0400 Heart rate 99 /min Alexander Gudimella [facility] 09-18-2022 07:51-0400 SaO2% (BldA) [Mass fraction] 97 % Alexander Gudimella [facility] 09-18-2022 07:51-0400 Systolic blood pressure 100 mm[Hg] Alexander Gudimella [facility] 07-30-2022 11:11-0400 Body height 162.[address] Beverley Moncada Work Phone: [facility] 07-30-2022 11:08-0400 Body mass index (BMI) [Ratio] 42.5 kg/m2 Dr. Beverley Moncada Work Phone: [facility] 07-30-2022 11:08-0400 Body weight 112.[address] Beverley Moncada Work Phone: [facility] 07-30-2022 11:08-0400 Diastolic blood pressure 79 mm[Hg] Dr. Beverley Moncada Work Phone: [facility] 07-30-2022 11:08-0400 Systolic blood pressure 124 mm[Hg] Dr. Beverley Moncada Work Phone: [facility] 06-12-2022 11:10-0400 Body mass index (BMI) [Ratio] 45.4 kg/m2 Dr. Beverley Moncada Work Phone: [facility] 06-12-2022 11:10-0400 Body weight 120.[address] Beverley Moncada Work Phone: [facility] 06-12-2022 11:10-0400 Diastolic blood pressure 84 mm[Hg] Dr. Beverley Moncada Work Phone: [facility] 06-12-2022 11:10-0400 Systolic blood pressure 125 mm[Hg] Dr. Beverley Moncada Work Phone: [facility] 06-11-2022 15:30-0400 Body temperature 98.1 [degF] Dr. Beverley Moncada Work Phone: [facility] 06-11-2022 15:30-0400 Diastolic blood pressure 63 mm[Hg] Dr. Beverley Moncada Work Phone: [facility] 06-11-2022 15:30-0400 Heart rate 96 /min Dr. Beverley Moncada Work Phone: [facility] 06-11-2022 15:30-0400 Respiratory rate 18 /min Dr. Beverley Moncada Work Phone: [facility] 06-11-2022 15:30-0400 Systolic blood pressure 128 mm[Hg] Dr. Beverley Moncada Work Phone: [facility] 06-11-2022 07:40-0400 SaO2% (BldA) [Mass fraction] 94 % Dr. Beverley Moncada Work Phone: [facility] 06-08-2022 22:11-0400 Body height 162.[address] Beverley Moncada Work Phone: [facility] 06-08-2022 22:11-0400 Body mass index (BMI) [Ratio] 47.2 kg/m2 Dr. Beverley Moncada Work Phone: [facility] 06-08-2022 22:11-0400 Body weight 124.[address] Beverley Moncada Work Phone: [facility] 06-03-2022 14:59-0400 Body weight 123.[address] Beverley Moncada Work Phone: [facility] 06-03-2022 10:59-0400 Body height 162.[address] Beverley Moncada Work Phone: [facility] 06-03-2022 10:57-0400 Body mass index (BMI) [Ratio] 29.5 kg/m2 Dr. Beverley Moncada Work Phone: [facility] 06-03-2022 10:57-0400 Diastolic blood pressure 78 mm[Hg] Dr. Beverley Moncada Work Phone: [facility] 06-03-2022 10:57-0400 Systolic blood pressure 114 mm[Hg] Dr. Beverley Moncada Work Phone: [facility] 05-28-2022 11:20-0500 Body mass index (BMI) [Ratio] 46 kg/m2 Dr. Beverley Moncada Work Phone: [facility] 05-28-2022 11:20-0500 Body weight 121.[address] Beverley Moncada Work Phone: [facility] 05-28-2022 11:20-0500 Diastolic blood pressure 83 mm[Hg] Dr. Beverley Moncada Work Phone: [facility] 05-28-2022 11:20-0500 Systolic blood pressure 118 mm[Hg] Dr. Beverley Moncada Work Phone: [facility] 05-22-2022 11:05-0500 Body mass index (BMI) [Ratio] 46.5 kg/m2 Dr. Beverley Moncada Work Phone: [facility] 05-22-2022 11:05-0500 Body weight 122.[address] Beverley Moncada Work Phone: [facility] 05-22-2022 11:05-0500 Diastolic blood pressure 77 mm[Hg] Dr. Beverley Moncada Work Phone: [facility] 05-22-2022 11:05-0500 Systolic blood pressure 124 mm[Hg] Dr. Beverley Moncada Work Phone: [facility] 04-22-2022 10:47-0500 Body mass index (BMI) [Ratio] 44.6 kg/m2 Dr. Beverley Moncada Work Phone: [facility] 04-22-2022 10:47-0500 Body weight 117.[address] Beverley Moncada Work Phone: [facility] 04-22-2022 10:47-0500 Diastolic blood pressure 85 mm[Hg] Dr. Beverley Moncada Work Phone: [facility] 04-22-2022 10:47-0500 Systolic blood pressure 127 mm[Hg] Dr. Beverley Moncada Work Phone: [facility] 04-08-2022 12:14-0500 Body temperature 97.8 [degF] Dr. Beverley Moncada Work Phone: [facility] 04-08-2022 12:14-0500 Diastolic blood pressure 60 mm[Hg] Dr. Beverley Moncada Work Phone: [facility] 04-08-2022 12:14-0500 Heart rate 88 /min Dr. Beverley Moncada Work Phone: [facility] 04-08-2022 12:14-0500 SaO2% (BldA) [Mass fraction] 96 % Dr. Beverley Moncada Work Phone: [facility] 04-08-2022 12:14-0500 Systolic blood pressure 117 mm[Hg] Dr. Beverley Moncada Work Phone: 0(462)139-500981 [place] [address] 04-08-2022 11:51-0500 Body mass index (BMI) [Ratio] 44.4 kg/m2 Dr. Beverley Moncada Work Phone: 2(767)993-010781 [place] [address] 04-08-2022 11:51-0500 Body weight 117.[address] Beverley Moncada Work Phone: 2(186)499-232681 [place] [address] 04-08-2022 11:02-0500 Body mass index (BMI) [Ratio] 44.5 kg/m2 Dr. Beverley Moncada Work Phone: 4(127)527-603581 [place] [address] 04-08-2022 11:02-0500 Body weight 117.[address] Beverley Moncada Work Phone: 4(878)837-025381 [place] [address] 04-08-2022 11:02-0500 Diastolic blood pressure 68 mm[Hg] Dr. Beverley Moncada Work Phone: 4(717)392-732481 [place] [address] 04-08-2022 11:02-0500 Systolic blood pressure 110 mm[Hg] Dr. Beverley Moncada Work Phone: 5(885)041-673481 [place] [address] 03-13-2022 15:15-0500 Body mass index (BMI) [Ratio] 44.3 kg/m2 Dr. Beverley Moncada Work Phone: 0(061)236-740681 [place] [address] 03-13-2022 15:15-0500 Body weight 117.[address] Beverley Moncada Work Phone: [facility] 03-13-2022 15:15-0500 Diastolic blood pressure 68 mm[Hg] Dr. Beverley Moncada Work Phone: [facility] 03-13-2022 15:15-0500 Systolic blood pressure 108 mm[Hg] Dr. Beverley Moncada Work Phone: [facility] 01-02-2022 15:54-0400 Body height 162.[address] [facility] Work Phone: 01-02-2022 15:54-0400 Body mass index (BMI) [Ratio] 42.6 kg/m2 [facility] Work Phone: 01-02-2022 15:54-0400 Body weight 112.[address] [facility] Work Phone: 01-02-2022 15:54-0400 Diastolic blood pressure 84 mm[Hg] [facility] Work Phone: 01-02-2022 15:54-0400 Systolic blood pressure 123 mm[Hg] [facility] Work Phone: 12-06-2021 14:55-0400 Body height 162.[address] Beverley Moncada Work Phone: [facility] Work Phone: 12-06-2021 14:55-0400 Body mass index (BMI) [Ratio] 42.5 kg/m2 Dr. Beverley Moncada Work Phone: [facility] Work Phone: 12-06-2021 14:55-0400 Body weight 112.[address] Beverley Moncada Work Phone: [facility] Work Phone: 12-06-2021 14:55-0400 Diastolic blood pressure 72 mm[Hg] Dr. Beverley Moncada Work Phone: [facility] Work Phone: 12-06-2021 14:55-0400 Systolic blood pressure 110 mm[Hg] Dr. Beverley Moncada Work Phone: [facility] Work Phone: 11-21-2021 13:23-0400 Body height 162.56 cm Kelly Madera DO Work Phone: [facility] Work Phone: 11-21-2021 13:23-0400 Body mass index (BMI) [Ratio] 42.23 kg/m2 Kelly Madera DO Work Phone: [facility] Work Phone: 11-21-2021 13:23-0400 Body surface area Derived from formula 2.14 m2 Kelly Madera DO Work Phone: [employer] [facility] Work Phone: 11-21-2021 13:23-0400 Body weight 111.59 kg Kelly Madera DO Work Phone: [facility] Work Phone: 11-21-2021 13:23-0400 Diastolic blood pressure 78 mm[Hg] Kelly Madera DO Work Phone: [facility] Work Phone: 11-21-2021 13:23-0400 Systolic blood pressure 118 mm[Hg] Kelly Madera DO Work Phone: [facility] Work Phone: Encounters Encounter Date Encounter Type Care Provider Facility Start: 09-02-2024 End: 09-02-2024 ambulatory No Primary Care Phys[place] Start: 09-02-2024 End: 09-02-2024 Patient encounter procedure Fariba BREAUX -[facility] Work Phone: Start: 08-26-2024 End: 08-26-[address] Nenita Wells MD -[facility] Work Phone: Start: 08-26-2024 End: 08-26-2024 ambulatory No Primary Care Physician [facility] Work Phone: Start: 08-19-2024 End: 08-19-2024 Patient encounter procedure Tenisha Reyna CNM -[facility] Work Phone: Start: 08-19-2024 Encounter for genera l adult medical examination without abnormal findings Beverley Moncada [facility] Start: 08-19-2024 Non-patient / Non-visit Dr. Beverley Moncada DO -[facility] Start: 08-19-2024 End: 08-19-2024 ambulatory OOTDR KOSD Facility:[facility] Start: 08-11-2024 End: 08-11-2024 ambulatory No Primary Care Physician [facility] Work Phone: Start: 08-11-2024 End: 08-11-[address] Beverley Moncada DO [place] Work Phone: Start: 08-11-2024 End: 08-11-[address] Beverley Moncada DO -[facility] Work Phone: Start: 08-11-2024 End: 08-11-2024 ambulatory No Primary Care Physician [facility] Work Phone: Start: 07-27-2024 End: 07-27-2024 Patient encounter procedure Tenisha Reyna CNM -[facility] Work Phone: Start: 07-27-2024 End: 07-27-2024 ambulatory No Primary Care Physician [facility] Work Phone: Start: 07-27-2024 End: 07-27-2024 ambulatory Nenita Wells Facility:[facility] Start: 07-13-2024 End: 07-13-[address] Nenita Wells MD -[facility] Work Phone: Start: 07-13-2024 End: 07-13-2024 ambulatory Nenita Wells Facility:[facility] Start: 06-30-2024 End: 06-30-2024 Patient encounter procedure Fariba BREAUX -[facility] Work Phone: Start: 06-30-2024 End: 06-30-2024 ambulatory No Primary Care Physician [facility] Work Phone: Start: 06-30-2024 End: 06-30-2024 ambulatory Nenita Wells Facility:[facility] Start: 06-22-2024 ambulatory No Primary Car e Physician Facility:[facility] Start: 06-22-2024 ambulatory No Primary Car e Physician Facility:[facility] Start: 06-22-2024 Non-patient / Non-visit Tenisha Reyna CNM -[facility] Start: 06-21-2024 End: 06-21-2024 ambulatory No Primary Care Physician [facility] Work Phone: Start: 06-21-2024 End: 06-21-[address] Nenita Wells MD -[facility] Work Phone: Start: 06-16-2024 End: 06-16-[address] Beverley Moncada DO -[facility] Work Phone: Start: 06-16-2024 End: 06-16-2024 ambulatory No Primary Care Physician Facility:[facility] Start: 05-19-2024 ambulatory No Primary Car e Physician Facility:[facility] Start: 05-06-2024 End: 05-06-2024 ambulatory IVANIA [facility] Start: 04-21-2024 End: 04-21-2024 Patient encounter procedure Fariba BREAUX -[facility] Work Phone: Start: 04-21-2024 End: 04-21-2024 ambulatory No Primary Care Physician Facility:[facility] Start: 03-26-2024 End: 03-26-[address] Nenita Wells MD -[facility] Work Phone: Start: 03-26-2024 End: 03-26-2024 ambulatory No Primary Care Physician [place] [place] Start: 03-26-2024 End: 03-26-2024 ambulatory No Primary Care Physician Facility:[facility] Start: 03-10-2024 End: 03-10-2024 Office outpatient visit 15 minutes Lenard Santiago [employer] Work Phone: [facility] Comment on above: Pneumonia of left antonino ng due to infectious organism, unspecified part of lung (Primary Dx); Cough, unspecified type Start: 03-10-2024 ambulatory LENARD SANTIAGO [facility] Start: 02-18-2024 End: 02-18-2024 ambulatory No Primary Care Physician [place] [place] Start: 02-18-2024 End: 02-18-2024 ambulatory No Primary Care Physician Facility:[facility] Start: 10-10-2023 End: 10-14-2023 Evaluation and management of inpatient Uzair Cabrera MD Work Phone: [facility] Comment on above: Pneumonia Start: 05-13-2023 End: 05-14-2023 [facility] Start: 01-28-2023 End: 01-29-[address] [facility] Start: 01-28-2023 End: 01-29-2023 Encounter for general adult medical examination without abnormal findings [facility] Start: 11-04-2022 End: 11-05-2022 ambulatory Alexander Gudimella Facility:[facility] Start: 11-04-2022 End: 11-04-2022 Patient encounter procedure Alexander Gudimella [facility] Start: 10-21-2022 End: 10-22-2022 ambulatory Alexander Gudimella Facility:[facility] Start: 10-21-2022 End: 10-21-2022 Patient encounter procedure Alexander Gudimella [facility] Start: 10-01-2022 End: 10-02-2022 ambulatory Alexander Gudimella Facility:[facility] Start: 10-01-2022 End: 10-01-2022 Patient encounter procedure Alexander Gudimella [facility] Start: 10-01-2022 End: 10-02-2022 ambulatory Alexander Gudimella Facility:[facility] Start: 09-18-2022 End: 09-19-2022 ambulatory Alexander Gudimella Facility:[facility] Start: 09-18-2022 End: 09-18-2022 Patient encounter procedure Alexander Gudimella [facility] Start: 09-12-2022 End: 09-13-2022 Emergency department patient visit Provider Pending Facility:[facility] Start: 09-11-2022 ambulatory LAURA SIDELL Facility:[facility] Start: 08-27-2022 End: 08-28-2022 ambulatory LAURA W SIDELL Facility:[facility] Start: 08-27-2022 End: 08-27-2022 Off-Site LAURA W SIDELL [facility] Start: 07-30-2022 End: 07-30-[address] Beverley Moncada Work Phone: [facility] Work Phone: Start: 07-30-2022 End: 07-30-[address] Beverley Moncada Work Phone: [facility], Specimen Start: 07-30-2022 End: 07-30-[address] Beverley Moncada Work Phone: [facility] Start: 06-16-2022 End: 06-16-[address] Beverley Moncada Work Phone: [facility] Start: 06-12-2022 End: 06-12-[address] Beverley Moncada Work Phone: [facility] Start: 06-11-2022 Non-patient / Non-visit Dr. Beverlye Moncada Work Phone: [facility] Start: 06-10-2022 Non-patient / Non-visit Dr. Beverley Moncada Work Phone: [facility] Start: 06-09-2022 Non-patient / Non-visit Dr. Beverley Moncada Work Phone: [facility] Start: 06-08-2022 Non-patient / Non-visit Dr. Beverley Moncada Work Phone: [facility] Start: 06-08-2022 End: 06-11-2022 Evaluation and management of inpatient Dr. Beverley Moncada Work Phone: [facility] Start: 06-03-2022 End: 06-03-[address] Beverley Moncada Work Phone: [facility] Work Phone: Start: 06-03-2022 End: 06-03-[address] Beverley Moncada Work Phone: [facility] Ultrasound Start: 06-03-2022 End: 06-03-[address] Beverley Moncada Work Phone: [facility] Start: 05-28-2022 End: 05-28-[address] Beverley Moncada Work Phone: [facility] Start: 05-22-2022 End: 05-22-[address] Beverley Moncada Work Phone: [facility] Start: 04-22-2022 End: 04-22-[address] Beverley Moncada Work Phone: [facility] Start: 04-08-2022 Non-patient / Non-visit Dr. Beverley Moncada Work Phone: [facility] Start: 04-08-2022 End: 04-08-[address] Beverley Moncada Work Phone: [facility] Outpatients Start: 03-28-2022 End: 03-28-2022 ambulatory Provider Pending Facility:[facility] Start: 03-13-2022 End: 03-13-[address] Beverley Moncada Work Phone: [facility] Start: 01-02-2022 End: 01-02-2022 ambulatory [facility] Work Phone: Start: 01-02-2022 End: 01-02-2022 Patient encounter procedure [facility] Specimen Start: 01-02-2022 End: 01-02-[address] [facility] Start: 12-12-2021 End: 12-12-2021 Patient encounter procedure [facility] Start: 12-06-2021 End: 12-06-[address] Beverley Moncada Work Phone: [facility] Work Phone: Start: 12-06-2021 End: 12-06-[address] Beverley Moncada Work Phone: [facility] Start: 12-06-2021 End: 12-06-[address] Beverley Moncada Work Phone: [facility] Start: 11-23-2021 Chart Update Kelly Madera DO Work Phone: [address] Work Phone: Start: 03-02-2016 End: 03-03-2016 [...] by JADYN with probe detection Lenard Santiago [employer] K[employer] MANAGER-ROAD INSPECTOR Work Phone: Start: 10-14-2023 C-reactive protein Step johnnie Lara [employer] K[employer] MANAGER-ROAD INSPECTOR Work Phone: Start: 10-14-2023 Complete blood count with white cell differential, automated Marilee Dallas DO Work Phone: Start: 10-14-[address] josseline Fincher [employer] K[employer] MANAGER-ROAD INSPECTOR Work Phone: Start: 10-13-2023 Echo tthrc r-t 2d w/ wom-mode compl spec&colr d Shanon J Shanae [employer] KITCH[employer] MANAGER-ROAD INSPECTOR Work Phone: Start: 10-13-2023 Assay of lactate Chasit y J Shanae [employer] K[employer] MANAGER-ROAD INSPECTOR Work Phone: Start: 10-13-2023 Blood gases any comb ination ph pco2 po2 co2 hco3 Shanon J Shanae [employer] MANAGER[employer]ROAD INSPECTOR Work Phone: Start: 10-13-2023 Radiologic exam ches t single view Marilee Dallas DO Work Phone: Start: 10-13-2023 C-reactive protein Step hen D Burney [employer] K[employer] MANAGER-ROAD INSPECTOR Work Phone: Start: 10-13-[address] josseline Diaz Alejandro [employer] K[employer] MANAGER-ROAD INSPECTOR Work Phone: Start: 10-13-2023 Assay of lactate Stephe n D Burney [employer] K[employer] MANAGER-ROAD INSPECTOR Work Phone: Start: 10-12-2023 Assay of lactate Stephe n D Burney [employer] K[employer] MANAGER-ROAD INSPECTOR Work Phone: Start: 10-12-2023 Assay of lactate Stephe n D Burney [employer] K[employer] MANAGER-ROAD INSPECTOR Work Phone: Start: 10-12-2023 Urinalysis microscopic only Uzair D Jane [employer] K[employer] MANAGER[employer]ROAD INSPECTOR Work Phone: Start: 10-12-2023 Urinalysis, reagent strip without microscopy Uzair D Burney [employer] K[employer] MANAGER[employer]ROAD INSPECTOR Work Phone: Start: 10-12-2023 End: 10-12-2023 Assay of troponin quantitative Uzair D Burney [employer] MANAGER[employer]ROAD INSPECTOR Work Phone: Start: 10-12-2023 C-reactive protein Step hen D Jane [employer] MANAGER[employer]ROAD INSPECTOR Work Phone: Start: 10-12-2023 End: 10-12-2023 Natriuretic peptide Uazir Lara [employer] MANAGER[employer]ROAD INSPECTOR Work Phone: Start: 10-12-2023 Radiologic exam ches t single view Uzair Lara [employer] MANAGER[employer]ROAD INSPECTOR Work Phone: Start: 10-12-[address] josseline Diaz Alejandro [employer] MANAGER[employer]ROAD INSPECTOR Work Phone: Start: 10-11-2023 Ct angiography chest w/contrast/noncontrast Uzair Lara [employer] MANAGER[employer]ROAD INSPECTOR Work Phone: Start: 10-11-2023 Cultyp nuc acid amp prb cult/isolate ea orgnism Mirela Diaz Alejandro [employer] K[employer] MANAGER-ROAD INSPECTOR Work Phone: Start: 10-11-2023 Fibrin dgradj produc ts d-dimer qual/semiquan Mirela Diaz Alejandro [employer] K[employer] MANAGER-ROAD INSPECTOR Work Phone: Start: 10-11-2023 Ct thorax w/o contra st material Mirela Diaz Alejandro [employer] MANAGER-ROAD INSPECTOR Work Phone: Start: 10-11-2023 Iaad ia mult step me thod nos each organism Mirela Diaz Alejandro [employer] MANAGER[employer]ROAD INSPECTOR Work Phone: Start: 10-11-2023 Blood count complete auto&auto difrntl wbc Marilee Dallas DO Work Phone: Start: 10-11-2023 C-reactive protein Esteban Diaz Alejandro [employer] K[employer] MANAGER-ROAD INSPECTOR Work Phone: Start: 10-10-2023 Culture bacterial bl [...] above: Performed By: #### T +S #### [facility] [address] [place] [address] Cytopathology proced ure, preparation of smear, genital [...] RSV VACCINE (1 - 1-dose 60+ series) [facility] Start: 09-06-2029 Tetanus vaccination TETANUS [facility] Start: 10-13-2024 Potassium [Moles/vol ume] in Serum or Plasma POTASSIUM [facility] Start: 09-02-2024 Measurement of gluco se 2 hours after glucose challenge for glucose tolerance test [facility] Start: 08-26-2024 Biophysical pr ofile panel US [facility] Start: 08-26-2024 Ultrasonography for biophysical profile without non-stress testing Biophysical Prof W/O Non Stres [facility] Start: 08-26-2024 Ultrasound scan for growth [facility] Start: 08-11-2024 Iv infusion hydratio n initial 31 min-1 hour HYDRATION IV INFUSION INIT [facility] Start: 08-11-2024 Nonstress test [facility] Start: 08-11-2024 Obstetric monitoring [facility] Start: 08-11-2024 Vital signs measurements [facility] Start: 08-11-2024 [facility] Start: 08-11-2024 Patient discharge [facility] Start: 06-21-2024 Nonstress test [facility] Start: 06-21-2024 Source specific culture [facility] Start: 06-21-2024 End: 06-21-2024 [facility] Start: 06-21-2024 Obstetric monitoring [facility] Start: 06-21-2024 Vital signs measurements [facility] Start: 06-21-2024 Bacteria identified in Urine by Culture Urine Culture [facility] Start: 06-21-2024 Genital Culture Genital Culture [facility] Start: 06-21-2024 Microscopic observat ion [Identifier] in Unspecified specimen by Gram stain [facility] Start: 11-24-2023 End: 12-29-2023 CT Chest WO contrast CT CHEST WITHOUT CONTRAST Imaging Routine Pneumonia of both lungs due to infectious organism, unspecified part of lung Expected: 11/24/2023, Expires: 12/29/2023 [facility] Comment on above: Expected: 11/24/2023 , Expires: 12/29/2023 Start: 11-23-2023 COVID-19 VACCINE () COVID-19 VACCINE () [facility] Start: 11-23-2023 Influenza vaccination INFLUENZA VACC INE (#1) [facility] Start: 11-22-2022 COVID-19 VACCINE () COVID-19 VACCINE () [facility] Start: 06-11-2022 Patient discharge [facility] Start: 06-11-2022 [facility] Start: 06-10-2022 Consultation [facility] Start: 06-09-2022 Administration of medication [facility] Start: 06-09-2022 Application of ice c ollar, cap or bag [facility] Start: 06-09-2022 Catheterization of vein [facility] Start: 06-09-2022 Introduction of urin omar catheter [facility] Start: 06-09-2022 Measuring intake and output [facility] Start: 06-09-2022 Notification of physician [facility] Start: 06-09-2022 Procedure discontinued [facility] Start: 06-09-2022 Provision of activit y privileges [facility] Start: 06-09-2022 Vital signs measurements [facility] Start: 06-09-2022 [facility] Start: 06-08-2022 Admission procedure [facility] Start: 04-08-2022 Nonstress test [facility] Start: 04-08-2022 Obstetric monitoring [facility] Start: 04-08-2022 Vital signs measurements [facility] Start: 04-08-2022 [facility] Start: 04-08-2022 Patient discharge [facility] Start: 12-06-2021 Chlamydia deoxyribon ucleic acid detection [facility] Work Phone: Start: 12-06-2021 Liquid based cervica l cytology screening [facility] Work Phone: Start: 2014 Screening for malign ant neoplasm of cervix CERVICAL CANCER SCREENING DISCUSSION [facility] Start: 2012 Hepatitis B vaccination HEP B VACCINE (1 of 3 - 19+ 3-dose series) [facility] Start: 2008 HIV screening HIV SCREENING DISCUSSION [facility] Start: 1993 Hepatitis C screening HEPATITI S C VIRUS SCREENING [facility] Bacteria identified in Blood by Culture BLOOD CULTURE Microbiology [facility] 10/10/2023 10:28 PM EDT [facility] CBC W Auto Different ial panel - Blood [facility] Work Phone: CBC W Auto Different ial panel - Blood [facility] Biophysical pr ofile panel US [facility] Genital microscopy, culture and sensitivities [facility] Glucose [Mass/volume ] in Serum or Plasma --1 hour post 50 g glucose PO [facility] Work Phone: Hepatitis B surface antigen measurement [facility] Work Phone: Hepatitis C antibody measurement [facility] Work Phone: HIV 1+2 Ab+HIV1 p24 Ag [Presence] in Serum or Plasma by Immunoassay [facility] Work Phone: Measurement of gluco se 2 hours after glucose challenge for glucose tolerance test [facility] Measurement of gluco se 2 hours after glucose challenge for glucose tolerance test [facility] Neisseria gonorrhoea e rRNA [Presence] in Unspecified specimen by JADYN with probe detection [facility] Work Phone: Path report.final Dx Spec [facility] Work Phone: Patient Education [facility] Work Phone: Patient referral [facility] Work Phone: PCR test for Chlamyd ia trachomatis [facility] Work Phone: Rubella IgG measurement [facility] Work Phone: Serologic test for syphilis [facility] Streptococcus agalac tiae [Presence] in Unspecified specimen by Organism specific culture [facility] T4 free measurement [facility] Thyroid stimulating hormone measurement [facility] Treponema sp Ab [Pre sence] in Serum [facility] Work Phone: Ultrasound scan for growth [facility] Ultrasound scan for growth [facility] Urine culture [facility] Immunizations Immunization Date Immunization Notes Care Provider Theo hu 09-07-2019 tetanus toxoid, redu devin diphtheria toxoid, and acellular pertussis vaccine, adsorbed Dr. Beverley Moncada Work Phone: [facility] 01-22-2019 influenza virus vaccine, live, attenuated, for intranasal use LAURA PEREZ [facility] 12-08-2018 influenza virus vaccine, unspecified formulation Uzair Cabrera MD Work Phone: [facility] Payers Date Payer Category Payer Self-pay [id number] 2022 Unknown 2022 Unknown [id number] 2022 Medicaid [id number] 1993 Unknown [id number] 2.16.840.1.017469.3.579.2.1069 1993 Unknown [id number] 2.16.840.1.087347.3.579.2.1069 1993 Unknown [id number] 2.16.840.1.814552.3.579.2.727 1993 Unknown [id number] 2.16.840.1.493537.3.579.2.727 1993 Unknown [id number] 2.16.840.1.407765.3.579.2.727 1993 Unknown [id number] 2.16.840.1.981813.3.579.2.727 1993 Unknown [id number] 2.16.840.1.961466.3.579.2.727 1993 Unknown [id number] 2.16.840.1.561140.3.579.2.727 1993 Unknown [id number] 2.16.840.1.657311.3.579.2.1245 1993 Unknown [id number] 2.16.840.1.922570.3.579.2.174 1993 Unknown [id number] 2.16.840.1.907413.3.579.2.983 1993 Unknown [id number] .0.1.449952.3.579.2.983 1993 Unknown [id number] 2.16840.1.763437.3.579.2.479 1959 Unknown [id number] Unknown ANTHEM [id number] Unknown ANTHEM SECONDARY [id number] Unknown [facility] 2 [id number] Unknown [id number] 840.1.543529.3.579.2.462 Unknown [id number] .0.1.657505.3.579.2.462 Unknown [id number] .840.1.389186.3.579.2.462 Unknown [id number] 05.09.830.1.045001.3.579.2.462 Unknown [id number] 840.1.708918.3.579.2.462 Unknown [id number] 05.09.830.1.064544.3.579.2.462 Unknown [id number] .0.1.463286.3.579.2.462 Unknown [id number] 05.09.830.1.653696.3.579.2.462 Unknown [id number] .840.1.085790.3.579.2.462 Unknown [id number] 2.840.1.030148.3.579.2.462 Unknown [id number] 2.840.1.337238.3.579.2.462 Unknown [id number] 2.16.840.1.755029.3.579.2.462 Unknown [id number] 2.16.840.1.940293.3.579.2.462 Unknown [id number] 2.16.840.1.447579.3.579.2.462 Unknown [id number] 2.16.840.1.394927.3.579.2.462 Unknown [id number] 2.16.840.1.084042.3.579.2.462 Unknown [id number] 2.16.840.1.813306.3.579.2.462 Unknown [id number] 2.16.840.1.992295.3.579.2.462 Unknown [id number] 2.16.840.1.464561.3.579.2.462 Unknown [id number] 2.16.840.1.141914.3.579.2.462 Unknown [id number] 2.16.840.1.064450.3.579.2.462 Unknown [id number] 2.16.840.1.309178.3.579.2.462 Unknown [id number] 2.16.840.1.637055.3.579.2.462 Social History Date Type Detail Facility Start: 10-13-2023 End: 03-10-2024 Former smoker Former smoker [facility] Start: 12-06-2021 End: 07-30-2022 Tobacco smoking status NHIS Unknown if ever smoked [facility] Start: 1995 Sex Assigned At Female [facility] Start: 08-27-2022 End: 10-01-2022 Tobacco smoking status Ex-smoker (finding) [facility] Tobacco smoking status Never [facility] Start: 10-13-2023 End: 03-10-2024 Sex Assigned At Female [facility] Start: 10-10-2023 End: 06-21-2024 Tobacco smoking status NHIS Never smoked tobacco [facility] Start: 10-10-2023 Tobacco use and exposure Smokeless tobacco non-user [employer] Start: 10-10-2023 End: 03-10-2024 Alcoholic beverage intake Ex-drinker (finding) [employer] Has the [employer], [employer], [employer], or water company threatened to shut off services in your home in past 12Mo No [employer] (I/We) worried wheth er (my/our) food would run out before (I/we) got money to buy more. Never true [employer] Start: 1995 Sex assigned at Not on file [facility] Start: 12-30-2023 Hydrelis [facility] Start: 06-22-2024 End: 07-06-2024 Sex Female (finding) [facility] Goals Date Patient Goal Desired Activity /State Functional Status Date Assessment Result Facility 09-18-2022 Functional Status N/A [facility] [place] 08-27-2022 Functional Status Telehealth Patient [facility] [place] Clinical Notes 12-06-2021 to 08-30-2024 Note Date & Type Note Facility 08-30-2024 Radiology Diagnostic study note [facility] Imaging Services [address] [place] [address] OB Limited With Biometrics MR#: [id number] Acct: [id number] Name: ANAI WOO Rep #: [id number] : 1995 F 29 From: Gustavo Thapa MD PCP: Status: REG CLI Study:OB Limited With Biometrics Date of Exam : 08/26/24 Exam# [id number] Ordering Dr: Nenita Lucas MD PROCEDURE: OB [...] with the normal expected range. Reading Location: [place] [address] CC: LAURA PEREZ; Dr. Nenita Wells MD ~ Wheel Roller: Signed [facility] 08-29-2024 Radiology Diagnostic study note [facility] Imaging Services [address] [place] [address] Biophysical Prof W/O Non Stres MR#: [id number] Acct: [id number] Name: ANAI WOO Rep #: [id number] : 1995 F 29 From: Pet er Peer DO PCP: Status: REG CLI Study:Biophysical Prof W/O Non Stres Date of Exam: 08/26/24 Exam# [id number] Ordering Dr: Tenisha Reyna CNM PROCEDURE: BIOPHYSICAL [...] dateby current prior ultrasound: 09/11/2019 [facility] CC: DEAN Sánchez Wheel Roller: Signed [facility] 08-11-2024 Radiology Diagnostic study note [facility] Imaging Services [address] [place] [id number] Biophysical Prof W/O Non Stres MR#: [id number] Acct: [id number] Name: ANAI WOO Rep #: [id number] : 1995 F 29 From: Gustavo Thapa MD PCP: Care Physician,No Primary Status: REG CLI Study:Biophysical Prof W/O Non Stres Date of Exam: 08/11/24 Exam# [id number] Ordering Dr: Tenisha Reyna CNM PROCEDURE: BIOPHYSICAL [...] IMPRESSION: biophysical profile score: 6/8. Reading Location: [facility] CC: DEAN Reyna; No Primary Care Physician ~ Wheel Roller: Signed [facility] 07-28-2024 Radiology Diagnostic study note [facility] Imaging Services [address] [place] [address] OB Limited With Biometrics MR#: [id number] Acct: [id number] Name: ANAI WOO Rep #: [id number] : 1995 F 29 From: Patricia Schreiber MD PCP: Care Physician,No Primary Status: REG CLI Study:OB Limited With Biometrics Date of Exam : 07/27/24 Exam# [id number] Ordering Dr: Nenita Lucas MD PROCEDURE: OB [...] represent a possible placental Pop. Reading Location: [id number] CC: Dr. Nenita Wells MD; No Primary Care Physician ~ Wheel Roller: Signed [facility] 06-21-2024 Radiology Diagnostic study note [facility] Imaging Services [address] [place], [place] [id number] OB Limited With Biometrics MR#: [id number] Acct: [id number] Name: ANAI WOO Rep #: [id number] : 1995 F 29 From: Emily matt Afuweunice DO PCP: Care Physician,No Primary Status: REG CLI Study:OB Limited With Biometrics Date of Exam : 06/21/24 Exam# [id number] Ordering Dr: Tenisha Reyna CNM PROCEDURE: OB [...] DEAN Reyna; No Primary Care Physician ~ Wheel Roller: Signed [facility] 06-16-2024 Evaluation note Diagnosis Onset [...] 2024 12:56pm Thyromegaly acute August 26 12:56pm [employer] [facility] Work Phone: 1(353) 554-154103-26-2025 Evaluation note* Diagnosis Onset Date Resolution Status [...] 2024 11:21am Thyromegaly acute September 02 11:21am [facility] Work Phone: 1(116) 716-309201-29-2025 Evaluation note* Diagnosis Onset Date Resolution Status [...] 32pm Thyromegaly acute July 27, 2024 1:32pm [facility] Work Phone: 1(738) 821-623601-29-2025 Evaluation note* Diagnosis Onset Date Resolution Status [...] 1 0:05am Thyromegaly acute August 11 10:05am [facility] Work Phone: 1(795) 658-766101-03-2025 Evaluation note* Diagnosis Onset Date Resolution Status [...] 2024 2:10pm Thyromegaly acute June 16, 2:10pm [facility] Work Phone: 1(930) 708-882601-03-2025 Evaluation note* Diagnosis Onset Date Resolution Status [...] bleeding during acute June 30, 2024 2:24pm [facility] Work Phone: 1(734) 147-504612-18-2024 History of Present illness Narrative* Lenard Santiago, ANU-ROAD INSPECTOR - 03/10/2024 4:55 PM EST HPI Anai Woo female 1995 presents to the [facility] with Chief Complaint Patient [...] Resource Strain: Low Risk (02/24/2024) Received from [facility] Overall Financial Resource Strain (CARDIA) Difficulty of Paying Living Expenses: Not hard at all Food Insecurity: No Food Insecurity (02/24/2024) Received from [facility] Hunger Vital Sign Worried About Running Out of Food in the Last Year: Never true Ran Out of Food in the Last Year: Never true Transportation Needs: Unknown (02/24/2024) Received from [facility] PRAPARE - Transportation Lack of Transportation (Medical): Not on file Lack of Transportation (Non-Medical): No Physical Activity: Inactive (01/20/2023) Received from [facility] Exercise Vital Sign Days of Exercise [...] Anai Woo female 1995 presents to the [facility] with Chief Complaint Patient [...] improve then worsened again. She has tried kdxm-ypo-laibofs medications. No recorded fevers. She has body [...] Resource Strain: Low Risk (02/24/2024) Received from [facility] Overall Financial Resource Strain (CARDIA) Difficulty of Paying Living Expenses: Not hard at all Food Insecurity: No Food Insecurity (02/24/2024) Received from [facility] Hunger Vital Sign Worried About Running Out of Food in the Last Year: Never true Ran Out of Food in the Last Year: Never true Transportation Needs: Unknown (02/24/2024) Received from [facility] PRAPARE - Transportation Lack of Transportation (Medical): Not on file Lack of Transportation (Non-Medical): No Physical Activity: Inactive (01/20/2023) Received from [facility] [employer] [facility] Exercise Vital Sign Days of Exercise [...] days for recheck. Discussed supportive home care, fyat-kua-mobbjpl medications. Work note provided. If symptoms worsen patient was advised to follow up in our office, primary care provider or the Emergency Dept. Benefits, Risks, Contraindications, and Complications of recommended treatments were explained. The patient understands and agrees to proceed with plan. PHILIP Wilkes 03/10/2024 [facility] [facility] History of Present illness Narrative* Elsa [...] preference. Unable to reach via cell phone. BUSINESS EMPLOYMENT SPECIALIST asked patient noelle no preference. Referral information emailed to Kadi at [facility]. Will update RT when able to release [employer] tank. * AUDREY Jordan - 10/14/2023 12:29 PM EDT BUSINESS EMPLOYMENT SPECIALIST updated by respiratory that Anai is going to need 2L o2 at home for discharge. BUSINESS EMPLOYMENT SPECIALIST updated covering Nurse Navigator Mitra on O2 [...] ni and their 2 year old son. eDmond has the son and is helping at this time. She is employed and denies issues. Raya financial issues. Does not have O2 at home. Stated she has no issues going to the MD or with pharmacy. Feels safe at home. Discharge plan home BUSINESS EMPLOYMENT SPECIALIST to follow for new needs 10/13/23 5667 Information Source Information Source patient Employment/Financial Employed? 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 No * Anoop Tee RPh, PharmD - 10/13/2023 9:45 AM EDT Pharmacy - IV to PO Conversion Documentation NAME: Anai Webber Room/Bed: [facility] Previous Medication Order: levaquin 750mg IV every 24 hours New Medication Order: levaquin 750mg PO every 24 hours The above medication was converted from intravenous to oral administration in accordance with the [facility] IV to PO Conversion Policy. Orders [...] continue to follow. Signed: Anoop Tee RPh,Patricia, [facility] Phone: [phone] Date/Time: 10/13/2023 9:44 AM * Shanon Jolly APRN-LORENA - 10/13/2023 9:15 AM EDT DAILY PROGRESS NOTE Anai Webber 1995 Date of Evaluation: 10/13/23 9:15 AM [facility] LOS: 0 days SUBJECTIVE: Patient seen [...] consolidation lung bases right greater than left. Stephenson to be inflammatory. 3. Small right pleural [...] Code Status Full Code [facility]* Nursing Notes - Susi Rain RN - 10/14/2023 2:12 PM EDT Discharge instructions and education reviewed with pt, education provided for dx and new medications, printed education given, denies any questions, IV and tele removed [facility]07-23-2024 Miscellaneous Notes* Nursing Notes - Susi [...] Call light within reach. documented in this [facility]07-23-2024 Hospital Discharge instructions* Discharge Instr - [...] * Labetalol Oral Tablet (LABETALOL - ORAL) (Serbian) * prednisone (Serbian) * Pneumonia (Serbian) [facility] Nurse [facility]* Nursing Notes - Machelle Garrett RN - 10/14/2023 6:10 AM EDT Up to use bathroom independently. No change in assessment. Resting quietly. Denies needs. [facility]07-22-2024 Nurse Note* Nursing Notes - Machelle Garrett RN - 10/13/2023 11:18 PM EDT Sleeping in bed. Assessment done as charted without changes. Elijah Alfonso NP notified & new order received. PRN Labetalol given. Pt denies needs. T [facility]07-22-2024 Nurse Note* Nursing Notes - Machelle Garrett RN - 10/13/2023 8:15 PM EDT Awake, sitting up in chair playing game on her laptop. Assessment done as charted. Denies pain or questions at this time. [facility]07-22-[facility] Nurse Note* Nursing Notes - Stacy Daniel RN - 10/13/2023 4:26 AM EDT Patient resting in bed. Assessment unchanged from prior unless otherwise noted in flowsheets. Patient denies any needs. Call light within reach. [facility]07-22-[facility]24 Nurse Note* Nursing Notes - Stayc Daniel RN - 10/13/2023 12:27 AM EDT Patient resting in bed. Assessment unchanged from prior unless otherwise noted in flowsheets. Patient denies any needs. Call light within reach. T [facility]07-21-2024 Nurse Note* Nursing Notes - Calli Meyer RN - 10/12/2023 4:00 PM EDT Patient assessment unchanged from previous assessment. Any exceptions noted in flowsheets. Call light and personal items within reach. Patient denies any further needs. [facility]07-21-2024 Nurse Note* Nursing Notes - Calli Meyer RN - 10/12/2023 12:00 PM EDT Patient assessment unchanged from previous assessment. Any exceptions noted in flowsheets. Call light and personal items within reach. Patient denies any further needs. [facility]07-21-2024 Nurse Note* Nursing Notes - Stacy Daniel RN - 10/12/2023 4:24 AM EDT Patient resting in bed. Assessment unchanged from prior unless otherwise noted in flowsheets. Patient denies any needs. Call light within reach. [facility]07-21-2024 Nurse Note* Nursing Notes - Stacy Daniel RN - 10/12/2023 12:37 AM EDT Patient resting in bed. Assessment unchanged from prior unless otherwise noted in flowsheets. Patient denies any needs. Call light within reach. [facility]07-20-2024 Nurse Note* Nursing Notes - Calli Meyer RN - 10/11/2023 4:00 PM EDT Patient assessment unchanged from previous assessment. Any exceptions noted in flowsheets. Call light and personal items within reach. Patient denies any further needs. [facility]07-20-2024 Nurse Note* Nursing Notes - Calli Meyer RN - 10/11/2023 12:00 PM EDT Patient assessment unchanged from previous assessment. Any exceptions noted in flowsheets. Call light and personal items within reach. Patient denies any further needs. [facility]07-20-2024 Evaluation + Plan note* Assessment & Plan Note - PHILIP Acosta - 10/11/2023 11:42 AM EDTAssociated Problem(s): Febrile Supportive care [facility]07-20-2024 Evaluation + Plan note* Assessment & Plan Note - PHILIP Acosta - 10/11/2023 11:42 AM EDTAssociated Problem(s): Acute hypoxic respiratory failure (Resolved 10/12/2023) Requiring 2 L nasal cannula for adequate oxygenation Continue to wean as tolerated Empiric antibiotics, IV steroids, and routine aerosols [facility]07-20-2024 Evaluation + Plan note* Assessment & Plan Note - PHILIP Acosta - 10/11/2023 11:42 AM EDTAssociated Problem(s): Pneumonia Empiric antibiotics Routine aerosols Supplemental oxygen for pulse ox greater than 92% [facility]07-20-2024 History and physical note* Mirela Allen, RESTAURANT KITCHEN MANAGER-ROAD INSPECTOR - 10/11/2023 8:46 AM EDT History and [...] Use Authorization (EUA) for the qualitative detection ndWPED-JoM-2 nucleic acid. INFLUENZA A 10/10/2023 NEGATIVE INFLUENZA [...] for Dr. Dallas [address]AD INSPECTOR time including assessment, planning, and discussion with nursing staff and patient Please note Portions of this note utilized [employer] dictation software, please excuse any typographical or [...] the MDM for this encounter. OBS ADMIT. [facility]07-20-2024 History and physical note* Mirela Allen, RESTAURANT KITCHEN MANAGER-ROAD INSPECTOR - 10/11/2023 8:46 AM EDT History and [...] mouth. Pt unsure of dosage. Pt reported Brain OCP 10/09/2023 at 2100 lamoTRIgine 100 MG [...] Use Authorization (EUA) for the qualitative detection qdVJGF-AhO-1 nucleic acid. INFLUENZA A 10/10/2023 NEGATIVE INFLUENZA [...] for Dr. Dallas [address]AD INSPECTOR time including assessment, planning, and discussion with nursing staff and patient Please note Portions of this note utilized [employer] dictation software, please excuse any typographical or [...] this encounter. OBS ADMIT. documented in this [facility] Nurse Note* Nursing Notes - Stacy Daniel RN - 10/11/2023 4:07 AM EDT Patient resting in bed. Assessment unchanged from prior unless otherwise noted in flowsheets. Patient denies any needs. Call light within reach. [facility]07-19-2024 Emergency department Note* Lorena Marcial RN - 10/10/2023 10:56 PM EDT Report sheet tubed up to med surg at this time. Pt also prefers to keep shorts on at this time for comfort. [facility]07-19-[facility] Emergency department Note* Lorena Marcial RN [...] Resource Strain: Low Risk (02/23/2023) Received from [facility] Overall Financial Resource Strain (CARDIA) Difficulty of Paying Living Expenses: Not very hard Food Insecurity: No Food Insecurity (02/23/2023) Received from [facility] Hunger Vital Sign Worried About Running Out of Food in the Last Year: Never true Ran Out of Food in the Last Year: Never true Transportation Needs: Unknown (02/23/2023) Received from [facility] PRAPARE - Transportation Lack of Transportation (Medical): Not on file Lack of Transportation (Non-Medical): No Physical Activity: Inactive (01/20/2023) Received from [facility] Exercise Vital Sign Days of Exercise per Week: 0 days Minutes of Exercise per Session: 0 min Stress: Not on file Social Connections: Not on file Intimate Partner Violence: Not At Risk (01/20/2023) Received from [facility] Humiliation, Afraid, Rape, and Kick questionnaire Fear of Current or Ex-Partner: No Emotionally Abused: No Physically Abused: No Sexually Abused: No Housing Stability: Unknown (02/23/2023) Received from [facility] Housing Stability Vital Sign Unable to [...] Uzair Cabrera MD 10/10/232224 documented in [facility] Emergency department Note* Reba Velasco RN - 10/10/2023 10:32 PM EDT Room assignment 3757. [facility]07-19-[facility] Physician Emergency department Note* Uzair Cabrera [...] Resource Strain: Low Risk (02/23/2023) Received from [facility] Overall Financial Resource Strain (CARDIA) Difficulty of Paying Living Expenses: Not very hard Food Insecurity: No Food Insecurity (02/23/2023) Received from [facility] Hunger Vital Sign Worried About Running Out of Food in the Last Year: Never true Ran Out of Food in the Last Year: Never true Transportation Needs: Unknown (02/23/2023) Received from [facility] PRAPARE - Transportation Lack of Transportation (Medical): Not on file Lack of Transportation (Non-Medical): No Physical Activity: Inactive (01/20/2023) [facility] Exercise Vital Sign Days of Exercise [...] No Housing Stability: Unknown (02/23/2023) [facility] Housing Stability Vital Sign Unable to [...] pneumonia Disposition: Admission Uzair Cabrera MD 10/10/23 7863 [address] [facility] [employer] Work Phone: [phone]) 515-733607-10-2023 Evaluation + Plan note Future Scheduled Tests Laboratory* TSH With T4fr Reflex 09/30/22 * Urinalysis 09/30/22 * Vitamin D 25 Hydroxy 09/30/22 * CBC w/ Auto Diff 09/30/22 * Comprehensive Metabolic Panel 09/30/22 * Lipid Panel 09/30/22 [facility]05-26-2023 Hospital Discharge instructions Follow Up Care 08/16/2022 08:24:49 With:LAURA PEREZ CNP Address: [address] [place] [address] [address] [place] [address] When: Unknown [facility] [place] 03-21-2023 Discharge summary Author Tenisha Reyna [facility] June 11, 2022 8:42am Note Date/Time June 11, 2022 8:4 2am [facility] Medical Records Department [address] [place] [address] Instructions for Home/Discharge Instructions 06/11/22 0841 MR#: [id number] Acct: [id number] Name: ANAI WEBBER Rep #:[id number] : [...] CC: No Primary Care Physician ~ Signed [facility] Work Phone: 1(362) 298-932703-21-2023 Progress note Author Tenisha Reyna [facility] June 11, 2022 8:34am Note Date/Time June 11, 2022 8:2 9am [facility] Medical Records Department [address] [place] [address] Progress Note - OBGYN 06/11/22823 MR#: [id number] Acct: [id number] Name: ANAI WEBBER Rep #:[id number] : 1995 27 From: Tenisha Reyna CNM PCP: Care Physician,No Primary Status :ADM IN Location: [place] [address]-1 Subjective Subjective Patient doing well without complaints. [...] Cosigner Signature (if applicable): CC: ~ Signed [facility] Work Phone: 1(243) 200-194503-20-2023 Progress note Author Fariba Cota [facility] June 10, 2022 7:45am Note Date/Time June 10, 2022 7:4 5am [facility] Medical Records Department [address] [place] [address] Progress Note - OBGYN 06/10/22 0743 MR#: [id number] Acct: [id number] Name: ANAI WEBBER Rep #:[id number] : 1995 27 From: Fariba Cota FORGE PRESS OPERATOR FORGE PRESS OPERATOR-C PCP: Care Physician,No Primary Status :ADM IN Location: [address] Subjective Subjective Patient doing well without [...] 0745 <Electronically signed by Fariba Cota NP FORGE PRESS OPERATOR-C> Cosigner Signature (if applicable): CC: ~ Signed [facility] Work Phone: 1(158) 923-561503-20-[address] Wells [facility] June 09, 2022 10:10pm Note Date/Time June 09, 2022 7:4 3pm [facility] Medical Records Department [address] [facility] [place] [address] Instructions for Home/Discharge Instructions 06/09/221941 MR#: [id number] Acct: [id number] Name: ANAI WEBBER LOPEZ Rep #:[id number] [...] CC: No Primary Care Physician ~ Signed [facility] Work Phone: 1(438) 182-590403-19-2023 Procedure [facility] 06-09-2022 History and physical note Author Dr. 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 06/08/22 5230 <Electronically signed by Nenita Wells MD> Cosigner Signature (if applicable): CC: Dr. Nenita Wells MD; No Primary Care Physician~ Signed [facility] Work Phone: 1(289) 826-775509-15-2022 NotePap Smear Specimen AdequacySeptember 2021 4:21pmComment.Satisfactory for evaluation. Endocervical and/or squamous metaplasticcells (endocervical component)are present.[facility][id number] Work Phone: Comment on above:Satisfactory for evaluation. Endocervical and/or squamous metaplasticcells (endocervical component)are present.Evaluation + Plan note No data available for this section [facility] Medicine [place] Evaluation + Plan note Future Appointments Appointment Date:10/01/2022 09:20:00 AM Scheduled Provider:Alexander Starr MD Location:[facility] Appointment Type:FM Open [facility] Evaluation note* Diagnosis Onset Date Resolution Status Bipolar disorder acute Hx of one miscarriage acute Obesity affecting acute acute Seasonal allergies acute Supervision of high risk , antepartum acute [facility] Work Phone: Evaluation note* Diagnosis Onset Date Resolution Status Bipolar disorder acute Hx of one miscarriage acute Obesity affecting acute acute Seasonal allergies acute Supervision of high risk , antepartum acute Bipolar disorder acute Herpes simplex antibody positive acute Hx of one miscarriage acute Obesity affecting acute acute Seasonal allergies acute Supervision of high risk , antepartum acute [facility] Work Phone: Evaluation note* Diagnosis [...] Supervision of high risk , antepartum acute [facility] Work Phone: Evaluation note* Diagnosis [...] Supervision of high risk , antepartum resolved [facility] Work Phone: Evaluation note* Diagnosis [...] lactating mother noneactive Thyromegaly acute Vaginal discharge [facility] Work Phone: Evaluation note* Diagnosis Pneumonia- [...] Pneumonia, organism unspecified [facility] Diagnosis Pneumonia- Primary Pneumonia, organism [...] Cough, unspecified type documented in this encounter [facility] No data available for this section [facility] Instructions* Attachments The following attachments cannot be sent through Care Everywhere. * Pneumonia (Serbian) documented in this encounterS[facility] HospitalProgress note No data available for this section [facility] Reason for referral (narrative)* Consultation (Routine) - New Request Specialty Diagnoses / Procedures Referred By Vicki gan Referred To Contact Pulmonary Disease Diagnoses Pneumonia of both lungs due to infectious organism, unspecified part of lung Shanon Jolly, RESTAURANT KITCHEN MANAGER-[facility] [address] [place] [address] Referral ID Status Reason Start Date Expiration Date V isits Requested Visits Authorized [id number] New Request 10/14/2023 11/07/2024 1 1 * MRI/CAT Scan (Routine) - New Request Specialty Diagnoses / Procedures Referred By Contjorge a t Referred To Contact Diagnoses Pneumonia of both lungs due to infectious organism, unspecified part of lung Procedures CT CHEST WITHOUT CONTRAST CHG DIAGNOSTIC COMPUTED TOMOGRAPHY THORAX W/O CNTRST Mirela Allen, [facility] [address] [place] [address] Referral ID Status Reason Start Date Expiration Date V isits Requested Visits Authorized [id number] New Request 10/12/2023 11/05/2024 1 1 * Unlisted Procedure Code (Routine) - New Request Specialty Diagnoses / Procedures Referred By Contac t Referred To Contact Procedures INPATIENT ADMISSION NOTIFICATION Marilee Dallas, DO [address] [place] [address] Referral ID Status Reason Start Date Expiration Date V isits Requested Visits Authorized [id number] New Request 10/10/2023 11/03/2024 1 1 [facility] for referral (narrative)No reason for referral [facility] Work Phone: Summary Purpose Family History Unknown [...] No September 07, 2019 9:38am Power of Scientific Editor No September 06 9:38am Advance Directive Response Recorded Date/ Time Living Will No April 22 12:33pm Power of Scientific Editor No April 22, 2022 12:33pm Advance Directive Response Recorded Date/ Time Living Will No June 08, 2022 11:28pm Power of Scientific Editor No June 08 11:28pm Advance Directive Response Recorded Date/ Time Living Will No June 12, 2022 11:10am Power of Scientific Editor No June 12 11:10am Date Activated Date [...] 2:1 0pm Rubella non-immune status, antepartum Ma [facility] 2024 2:10pm Supervision of high-risk June [...] 2:1 0pm Rubella non-immune status, antepartum Ma [facility] 2024 2:10pm Supervision of high-risk June [...] 8:4 0pm Rubella non-immune status, antepartum Ma [facility] 2024 8:40pm Supervision of high-risk June [...] 1 :35pm Rubella non-immune status, antepartum Ja [facility] 2024 1:35pm Supervision of high-risk Janua 2024 [...] 2:1 0pm Rubella non-immune status, antepartum Ma [facility] 2024 2:10pm Supervision of high-risk June [...] 8:4 0pm Rubella non-immune status, antepartum Ma [facility] 2024 8:40pm Supervision of high-risk June [...] 1 :35pm Rubella non-immune status, antepartum Ja [facility] 2024 1:35pm Supervision of high-risk Janua 2024 [...] 2:1 0pm Rubella non-immune status, antepartum Ma [facility] 2024 2:10pm Supervision of high-risk June [...] 8:4 0pm Rubella non-immune status, antepartum Ma [facility] 2024 8:40pm Supervision of high-risk June [...] 2:1 0pm Rubella non-immune status, antepartum Ma [facility] 2024 2:10pm Supervision of high-risk June [...] 8:4 0pm Rubella non-immune status, antepartum Ma [facility] 2024 8:40pm Supervision of high-risk June [...] 2:1 0pm Rubella non-immune status, antepartum Ma [facility] 2024 2:10pm Supervision of high-risk June [...] 8:4 0pm Rubella non-immune status, antepartum Ma [facility] 2024 8:40pm Supervision of high-risk June [...] section and content) DATE CREATED AUTHOR 10/15/2017 [facility] DATE CREATED AUTHOR AUTHOR'S ORGANIZ ATION 12/26/2018 [facility] DATE CREATED AUTHOR AUTHOR'S ORGANIZ ATION 11/22/2021 [facility] DATE CREATED AUTHOR AUTHOR'S ORGANIZ ATION 11/22/2021 [facility] DATE CREATED AUTHOR AUTHOR'S ORGANIZ ATION 09/19/[address] [facility] DATE CREATED AUTHOR AUTHOR'S ORGANIZ ATION 11/05/2022 Santiago Freddie [facility] DATE CREATED AUTHOR AUTHOR'S ORGANIZ ATION 02/02/2023 [facility] DATE CREATED AUTHOR AUTHOR'S ORGANIZ ATION 05/21/2023 [facility] DATE CREATED AUTHOR AUTHOR'S ORGANIZ ATION 03/14/20[facility] DATE CREATED AUTHOR AUTHOR'S ORGANIZ ATION 05/08/[address] [facility] DATE CREATED AUTHOR AUTHOR'S ORGANIZ ATION 08/31/2024 [facility] Goals (unrecognized section and content) Goals [...] 2024 End: June 30, 2024 Fariba Cota FORGE PRESS OPERATOR, FORGE PRESS OPERATOR-C Attending Provider Active Start: June 30, 2024 [...] Inactive Member Role Status Dates Fariba Cota FORGE PRESS OPERATOR, FORGE PRESS OPERATOR-C Attending Provider Active Team Status: Inactive Member [...] Member Role Status Dates Fariba Cota NP, FORGE PRESS OPERATOR-C Attending Provider Active No Primary Care Physician [...] Referring Provider, Other Provider Active Fariba Cota FORGE PRESS OPERATOR, FORGE PRESS OPERATOR-C Attending Provider Active Team Status: Active Member [...] Provider, Refer ring Provider Active Radha Sofia FORGE PRESS OPERATOR, FORGE PRESS OPERATOR-C Attending Provider Active Team Status: Inactive Member Role Status Dates No Primary Care Physician Primary Care Provider, Refer ring Provider Active Fariba Cota FORGE PRESS OPERATOR, FORGE PRESS OPERATOR-C Attending Provider Active Team Status: Inactive Member Role Status Dates No Primary Care Physician Primary Care Provider, Refer ring Provider Active Dr. Nenita Wells MD Attending Provider Active Team Status: Inactive Member Role Status Dates No Primary Care Physician Primary Care Provider Active Dr. Nenita Wells MD Attending Provider, Referr ing Provider Active Rehab Therapy Manager Relationship Specialty Start Date End Date Laura Perez CNP [address] [place] [address] PCP - General Nurse Practitioner - Family 10/10/23 Rehab Therapy Manager Relationship Specialty Start Date End Date Laura [...] End: April 21, 2024 Fariba Cota NP, FORGE PRESS OPERATOR-C Attending Provider Active Start: April 21, 2024 [...] 2024 End: September 02, 2024 Fariba Cota FORGE PRESS OPERATOR, FORGE PRESS OPERATOR-C Attending Provider Active Start: September 02, 2024 End: September 02, 2024 Team Status: Active Member Role Status Dates ANA SANCHEZ Primary Care Provider Active Start : September 02, 2024 Fariba Cota FORGE PRESS OPERATOR, FORGE PRESS OPERATOR-C Attending Provider Active Start: September 02, 2024 Fariba Cota FORGE PRESS OPERATOR, FORGE PRESS OPERATOR-C Referring Provider Active Start: September 02, 2024 Reason for Visit (unrecogniz ed section and content) Reason Comments Shortness of Breath Generalized Body Aches Specialty Diagnoses / Procedures Referred By Vicki gan Referred To Contact Diagnoses Pneumonia PNA (pneumonia) Marilee Dallas, DO [address] [place] [address] [facility] Referral ID Status Reason Start Date Expiration Date Visits Re quested Visits Authorized [id number] 1 Reason Comments Cough Pt states [...] 1 dose, On Fri10/13/23 at 0630, At [facility], in emergencies, administer as rapidly as [...] BE BASED ON THE PRIMARY CLINICAL RECORDS. [employer] [facility]. provides no warranty or guarantee of the accuracy or completeness of information in this document.
== END | disposition home or self-care (01) ==
LOC: US 11:58
PROVIDERS: Referring Provider Advanced Practice Midwife; Visit Provider Advanced Practice Midwife
DX: O99.212 Obesity complicating pregnancy, second trimester (principal); Z3A.00 Weeks of gestation of pregnancy not specified
CPT/HCPCS: 76819

== ENCOUNTER → 2024-09-09 | Outpatient (CLI) | payer OTHER, SELFPAY ==
--- NOTE | 2024-09-09 12:15 | US_ITS ---
PROCEDURE: BIOPHYSICAL PROF W/O NON STRES 09/09/2024 REASON FOR EXAM: OBESITY DURING TECHNIQUE: BIOPHYSICAL PROF W/O NON STRES COMPARISON: Prior study dated September 02, 2024. FINDINGS Number: 1 Position: Vertex Placental Position: Anterior and not low-lying. Placental Abnormalities: No evidence of previa. ESTIMATED GESTATIONAL AGE: Baseline: 38 weeks and 2 days. ESTIMATED DATE OF DELIVERY: Baseline: September 21, 2024 BIOPHYSICAL ASSESSMENT: Amniotic Fluid Volume: 6.2 Amniotic Fluid Index: 15.5 (8-24 cm normal range) Cardiac Motion: 140 beats per minute (average) Trunk and Limb Motion: Present. MATERNAL ANATOMY: Adnexa: Neither maternal ovary is successfully identified. Biophysical profile: Breathing movements: 2 Gross body movements: 2 tone: 2 Amniotic fluid volume: 2 Total score: 8/8 US/Biophysical Prof W/O Non Stres IMPRESSION: Normal biophysical profile score. Reading Location: [place] [id number]
== END | disposition home or self-care (01) ==
LOC: US 12:06
PROVIDERS: Referring Provider Advanced Practice Midwife; Visit Provider Advanced Practice Midwife
DX: O99.212 Obesity complicating pregnancy, second trimester (principal); Z3A.00 Weeks of gestation of pregnancy not specified
CPT/HCPCS: 76819

== ENCOUNTER 2024-09-12 07:18 | Inpatient (IN) | payer OTHER, SELFPAY ==
[2024-09-12] VITALS (66 sets, daily range): BP systolic 94–184; BP diastolic 53–89; PULSE 41–127; RESP 16–18; TEMP 36.1–36.9; O2SAT 88–100; BMI 48.4
--- OUTSIDE RECORDS SUMMARY | 2024-09-12 07:05 | XMS RPT_ITS | CCD ---
Author Organization [facility] Care Team Providers Care Sprinkling System Irrigator Name Role Phone FADILLON Jernigan Unavailable Unavailable MARISSA HOOPER Unavailable Unavailable FADILLON Jernigan Unavailable Unavailable MARISSA HOOPER Unavailable Unavailable Pending Provider Unavailable Unavailable Unavailable Unavailable Dr. Beverley Moncada Attending Provider [phone] LAURA PEREZ Primary Care Provider UnavailLAURA Renteria Referring Provider Unavailable Beata RING CUTTER LATHE OPERATOR, RING CUTTER LATHE OPERATOR-C Fariba Attending Provider [phone] Dr. [...] Other Provider DEAN Reyna Attending Provider Beata RING CUTTER LATHE OPERATOR, RING CUTTER LATHE OPERATOR-C Fariba Attending Provider Care Physician, No Primary Referring Provider Un available [place] RING CUTTER LATHE OPERATOR, RING CUTTER LATHE OPERATOR-C Radha Attending Provider LAURA PEREZ Primary Care Physician Pending, Provider Primary Care Unavailable Sebastien Del Rio Attending Unavailable Pending, Provider Primary Care Unavailable Aleida, Dr. Marilee Piña Attending Thanh Shin, Dr. Marilee Piña Referring Unavai labhenyr Gudimella, Alexander Primary Care Physician SIDECORAL, LAURA W Attending Unavailable Gudimella, Alexander Attending Unavailable Gudimella, Alexander Attending Unavailable Gudimella, Alexander Attending Unavailable Gudimella, Alexander Attending Unavailable Gudimella, Aelxander Admitting Unavailable Gudimella, Alexander Attending Unavailable Gudimella, Alexander Referring Unavailable SIDELL, LAURA Referring Unavailable SIDELL, LAURA Primary Care Unavailable [place] GROUND SCHOOL INSTRUCTOR, Laura Primary Care Provider [phone] [place] GR[employer] SCHOOL INSTRUCTOR, Laura Primary Care Provider [phone] MARILEE DALLAS Attending Unavailable SIDELL, LAURA Primary [...] Dr. Nenita Wells MD Referring Provider [phone] Tenisha Reyna CNM Referring Provider [phone] Care Physician, No Primary Primary Care Provider Unavailable Care Physician, No Primary Referring Provider Un available Beata TURK-Fariba Schulte Attending Provider Dr. Beverley Moncada DO Other Provider [phone] LAURA PEREZ Primary Care Provider LAURA PEREZ Primary Care Provider Unavailjung Cota RING CUTTER LATHE OPERATOR-C, Fariba Referring Provider [phone] Nenita Wells Attending Unavailable Care Physician, No Primary Primary Care Unava ilable Care Physician, No Primary Referring Unava ilable Care Physician, No Primary Referring Unava ilable RUSSELL MCKINLEY Primary Care Unavailable Nenita Wells Attending Unavailable Care Physician, No Primary Referring Unava ilable Beata RING CUTTER LATHE OPERATOR, Fariba Attending Unavailable ARLEN, RUSSELL Primary Care Unavailable Tenisha Reyna Attending Unavailable Tenisha Reyna Referring Unavailable ARLEN, RUSSELL Primary Care Unavailable Nenita Wells Attending Unavailable Care Physician, No Primary Primary Care Unava ilable Nenita Wells Referring Unavailable Care Physician, No Primary Referring Unava ilable Beverley Moncada Attending Unavailabl e Care Physician, No Primary Primary Care Unava ilable Care Physician, No Primary Primary Care Unava ilable Tenisha Reyna Referring Unavailable Tenisha Reyna Attending Unavailable Care Physician, No Primary Primary Care Unava ilable Beverley Moncada Consulting Unavailabl Beverley Mccain Attending Unavailabl Tenisha Infante Referring Unavailable Care Physician, No Primary Referring Unava ilable Care Physician, No Primary Primary Care Unava ilable Tenisha Reyna Attending Unavailable Tenisha Reyna Attending Unavailable Tenisha Reyna Referring Unavailable RUSSELL MCKINLEY Primary Care Unavailable [place] RING CUTTER LATHE OPERATOR, Fariba Attending Unavailable [place] RING CUTTER LATHE OPERATOR, Fariba Referring Unavailable RUSSELL MCKINLEY Primary Care Unavailable Nenita Wells Consulting Unavailable Tenisha Reyna Attending Unavailable Tenisha Reyna Referring Unavailable RUSSELL MCKINLEY Primary Care Unavailable Nenita Wells Attending Unavailable Care Physician, No Primary Primary Care Unava ilable Nenita Wells Referring Unavailable Care Physician, No Primary Primary Care Unava ilable Beverley Moncada Attending Unavailabl e Tenisha Reyna Referring Unavailable Care Physician, No Primary Referring Unava ilable Tenisha Reyna Attending Unavailable RUSSELL MCKINLEY Primary Care Unavailable Care Physician, No Primary Primary Care Unava ilable Care Physician, No Primary Referring Unava ilable Beata RING CUTTER LATHE OPERATOR, Fariba Attending Unavailable Care Physician, No Primary Referring Unava ilable Care Physician, No Primary Primary Care Unava ilable Beverley Moncada Attending Unavailabl e Marcanthony, Nenita Attending Unavailable Marcanthony, eNnita Referring Unavailable Axel, Tenisha Referring Unavailable Axel, Tenisha Attending Unavailable RUSSELL MCKINLEY Primary Care Unavailable Marcanthsolomon, Nenita Attending Unavailable Care Physician, No Primary Primary Care Unava ilable Marcanthony, Nenita Referring Unavailable Care Physician, No Primary Primary Care Unava ilable Axel, Tenisha Referring Unavailable Axel, Tenisha Attending Unavailable Care Physician, No Primary Referring Unava ilable Care Physician, No Primary Primary Care Unava ilable Beata RING CUTTER LATHE OPERATOR, Fariba Attending Unavailable Marcanthony, Nenita Attending Unavailable Care Physician, No Primary Referring Unava ilable Care Physician, No Primary Primary Care Unava ilable Care Physician, No Primary Referring Unava ilable Care Physician, No Primary Primary Care Unava ilable Axel, Tenisha Attending Unavailable Marcanthsolomon, Nenita Consulting Unavailable Care Physician, No Primary Primary Care Unava ilable Axel, Tenisha Attending Unavailable Marcanthony, Nenita Referring Unavailable Care Physician, No Primary Referring Unava ilable ARLEN, RUSSELL Primary Care Unavailable Marcanthsolomon, Nenita Attending Unavailable Care Physician, No Primary Primary Care Unava ilable Care Physician, No Primary Referring Unava ilable Beverley Moncada Attending Unavailabl e Marcanthony, Nenita Attending Unavailable Care Physician, No Primary Referring Unava ilable Care Physician, No Primary Primary Care Unava ilable Allergies Allergy Classification Reported Allergen(s) Allergy Type Date of Onset Reaction(s) Facility (1 source) Penicillins Drug allergy (disorder) [facility] Repository (1 source) Penicillins; Translations: [Penicillins] Allergy to drug (finding) [facility] [address] Work Phone: (1 source) Tdap; Translations: [Tdap] Allergy to drug (finding) [facility] [address] Work Phone: (17 sources) Amoxicillin Drug Allergy 2 Rash [facility] (18 sources) insect venom; Translations: [insect venom] Allergy to substance 2 unknown, Swelling [facility] Comment on above: Bee stings (17 sources) Pertussis Vaccines Allergy to substance 2 Other [facility] Comment on above: Unkonwn reaction. On ly had 1 vaccine due to some reaction- Has had a TDAP since and no reaction (6 sources) Chlorhexidine; Translations: [chlorhexidine containing compounds] Drug Allergy Eruption of skin (disorder) [facility] (6 sources) Penicillin; Translations: [penicillin] Drug Allergy Eruption (morphologic abnormality) [facility] (1 source) ALLERGIES NOT ON FILE; Translations: [ALLERGIES NOT ON FILE] Propensity to adverse reactions (disorder) [facility] Repository (1 source) Amoxicillin Drug Allergy [address] [place] [address] Repository (1 source) Pertussis Vaccine Drug Allergy 5 [facility] Medications Current Medications Medication Drug Class(es) Dates [...] 5:14pm Start: 05-07-2019 take 1 capsule by [facility] once daily as needed Zyrtec Liquid Gels [...] OCP Active escitalopram 10 mg oral tablet (20 sources) Serotonin Reuptake Inhibitor Start: 08-28-19 take 1 tablet by mouth once daily escitalopram 10 mg Tab 10 mg = 1 tab(s), Oral, Daily, # 90 tab(s), Refills(s) 1, Pharmacy: [facility], 163, cm, 11/14/20 14:03:00 EDT, [...] 2 minutes. melatonin 3 mg oral tablet (19 sources) Start: 05-07-2019 take 1 tablet by [...] 0 Start Date: 05/07/19 Status: Ordered Multivit 86-Wnxh-Ngyayg 1-Dha (Pnv-Dha) 27 mg iron-1 mg -300 mg capsule (2 sources) Start: 11-30-2021 Multivit 47-Ir on-Folate 1-Dha (Pnv-Dha) 27 mg iron-1 mg -300 mg capsule Active CAP PO November 30, 2021 12:00am Multivitamin With Iron tablet (12 sources) Start: 02-06-2024 Multivitamin W ith Iron [...] Start: 02-24-2024 take 1 tablet by davonte th once daily Sertraline 100 MG tablet Take [...] bedtime), # 90 tab(s), Refills(s) 1, Pharmacy: [facility], 163, cm, 10/01/22 9:32:00 EDT, Height/Length Dosing, 111.7, kg, 10/01/22 9:32:00 EDT, Weight Dosing Start Date: 10/01/22 Status: Ordered Start: 06-07-2021 take 1 tablet by [facility] once daily at bedtime traZODONE 50 mg Tab 50 mg = 1 tab(s), Oral, Once a day (at bedtime), # 90 tab(s), Refills(s) 1, Pharmacy: [facility], 163, cm, 11/14/20 14:03:00 EDT, [...] 2100, Until Discontinued 20 ml albumin human, group home 250 mg/ml injection (1 source) Human Serum Albumin Start: 10-13-2023 End: 10-13-2023 50 g, Intravenous, Administer over 60 Minutes, ONCE, 1 dose, On Fri10/13/23 at 0630, At [facility], in emergencies, administer as rapidly as necessary [...] at 1737, Constipation 1st Line Norethindrone-E.Estra diol-Iron (17 sources) Estrogen Start: 08-04-2018 End: 11-30-2021 Norethindrone-E.Est radiol-Iron 1.5-30( tablet Discontinued 1 {tbl} PO DAILY August 04, 2018 12:00am November 30, 2021 11:18am Start: 08-04-2018 End: 11-30-2021 take 1 tablet by mouth once daily Norethindrone-E.Estradiol-Iron Discontin ued 1 TABLET PO DAILY August 04, 2018 12:00am November 30, 2021 11:18am L Norgest/E.Estradiol-E.Estrad (20 sources) Progestin, Estrogen, Progestin-containing Intrauterine Device Start: [...] Start: 07-30-2022 take 1 tablet by [facility] once daily L Norgest/E.Estradiol-E.Estrad (Ashlyna) 0.15 mg-30 [...] tab(s), Oral, Daily, 84 tab(s), Refill(s) 1, [facility], 163, cm, 11/14/20 14:03:00 EDT, Height/Length Dosing, 115.4, kg, 11/14/20 14:07:00 EDT, Weight Dosing Start Date: 05/15/21 Status: Ordered fluconazole 150 mg oral tablet (13 sources) Azole Antifungal Start: 07-17-2022 End: 07-30-2022 take 1 tablet by mouth once daily Fluconazole (Diflucan) 150 mg tablet Discontinued 150 mg PO DAILY 03 24July 17, 2022 12:00am July 30, 2022 11:09am iohexol (OMNIPAQUE) 350 MG/ML injection 75 mL (1 source) Start: 10-11-2023 End: 10-11-2023 75 mL, Intravenous, ONCE, 1 dose, On 10/11/23 at 1715, Extravasation Risk, Radiology Procedure Iron (17 sources) Start: 12-07-2021 End: 07-30-2022 take 1 capsule by mouth once daily Pnv 595-Wfhe-Bfwdmh-Dha (Vitafol Fe Plus) 90 mg iron- 1 mg-200 mg capsule Discontinued 1 NMA PO DAILY December 07, 2021 12:00am July 30, 2022 11:10am Start: 12-07-2021 End: 07-30-2022 take 1 capsule by mouth once daily Pnv 918-Oyyr-Qrcrly-Dha (Vitafol Fe Plus) 90 mg iron- 1 mg-200 mg capsule Discontinued 1 CAP PO DAILY December 07, 2021 12:00am July 30, 2022 11:10am Start: 12-07-2021 take 1 capsule by [facility] once daily Pnv 279-Wwej-Oqawuv-Dha (Vitafol Fe Plus) 90 mg iron- 1 [...] 10-Apr-2016 Active take 2 tablets by mo [facility] once daily lamoTRIgine 100 MG tablet Take 2 tablets by mouth daily. Active levoFLOXacin (3 sources) Quinolone Antimicrobial Start: 10-13-2023 End: 10-14-2023 750 mg, Oral, DAILY, First dose on Fri10/13/23 at 1015, Until Discontinued, Avoid antacid, iron, [...] over 4 Hours, DAILY, First dose on Fri10/12/23 at 0600, Until Discontinued, Give if magnesium [...] at 2245 mupirocin 0.02 mg/mg topical ointment (12 sources) RNA Synthetase Inhibitor Antibacterial Start: 09-04-2022 End: 02-06-2024 Mupirocin 2 % ointment Discontinued 1 NMA TOPICAL THREE TIMES A DAY September 04, 2022 12:00am February 06, 2024 12:53pm Apply 3 x per day to rash naproxen 500 mg oral tablet (17 sources) Nonsteroidal Anti-inflammatory Drug Start: 05-18-2019 End: 05-21-2019 take 1 tablet by mouth twice daily as needed for pain Naproxen 500 MG tablet Discontinued 500 mg PO TWICE DAILY NEEDED as needed for Pain Score 4-10/10 May 18, 2019 5:41pm May 21, 2019 5:14pm norethindrone 0.35 mg oral tablet (12 sources) Start: 08-22-2022 End: 09-23-2022 take 1 tablet by mouth once daily Norethindrone (Contraceptive) (Ortho Micronor) 0.35 mg tablet Discontinued 0.35 mg PO DAILY 90 90 August 22, 2022 12:00am September 23, 2022 11:31am ondansetron 4 mg disintegrating oral tablet (17 sources) Serotonin-3 Receptor Antagonist Start: 12-06-2021 End: [...] applicable] 06-12-2022 Chronic Miscellaneous mental health disorders (12 sources) depression; Translations: [ depression] 02-06-2024 Episodic [...] Onset: 09-13-2022 Other aftercare (1 source) Other prison (current) drug therapy; Translations: [Other prison (current) drug therapy] Onset: 09-13-2022 Episodic Other circulatory disease (2 sources) Personal history of other diseases of the circulatory system; Translations: [Personal history of other diseases of the circulatory system] Onset: 09-06-2024 Episodic Other complications of ; puerperium affecting management of mother (20 sources) Obstetrical complication of anesthesia; Translations: [Complication of anesthesia during labor and delivery, unspecified] 02-06-2024 Episodic Comment on above: passed out with full strength epidural, OK with half strength Other complications of ; puerperium affecting management of mother (9 sources) Large for gestation age fetus 08-31-2024 Episodic Comment on above: 36 wk 97% AC, 92% EF W. 36 wk 97% AC, 92% EF W. Rpt GCT: 91 Other complications of ; puerperium affecting management of mother (2 sources) Complication of anesthesia during labor and delivery, unspecified; Translations: [Complication of anesthesia during labor and delivery, unspecified] Onset: 09-06-2024 Episodic Other complications of (20 sources) Maternal obesity complicating , childbirth and the puerperium, antepartum; Translations: [Obesity complicating , unspecified trimester] 04-22-2022 Chronic Comment on above: [id number] 45-needs w eekly NST/BPP at 34 weeks- needs 36 week US weekly nsts at 34 an d growth US 32 and 36 [id number] 45-needs w eekly NST at 34 weeks- needs 36 week US Other complications of (20 sources) Obesity complicating , unspecified trimester; Translations: [Obesity complicating , childbirth, or the puerperium, unspecified as to episode of care or not applicable] Onset: 03-16-2024 Chronic Other complications of (2 sources) Obesity complicating , second trimester; Translations: [Obesity complicating , second trimester] Onset: 09-09-2024 Chronic Other complications of (1 source) Obesity complicating , third trimester; Translations: [Obesity complicating , third trimester] Onset: 08-02-2024 Chronic Other complications of (20 sources) High risk ; Translations: [Supervision of high risk , unspecified, unspecified trimester] 04-22-2022 Episodic Comment on above: PRR. , HITESH 5, boy,Emily Ball [id number], girl, Ernie ernandez HITESH 06/30/22, Jimmy Alvarado PRR. , HITESH 5, boy, Kj Kay, Christiano Other complications of (15 sources) Disease caused by 2019-nCoV; Translations: [Other viral diseases complicating , second trimester] 04-08-2022 Episodic Comment on above: Baby ASA daily. Grow th US 32 and 36 wk Other complications of (15 sources) Reduced movement; Translations: [Decreased movements, unspecified [...] equivocal. offer MMR after Other complications of (20 sources) data - finding; Translations: [Unspecified abnormal findings on screening of mother] 08-19-2024 Episodic Comment on above: bpp 6/8 on 08/11, tomás ctive prolonged nst monitoring Other complications of (2 sources) Supervision of high risk , unspecified, third trimester; Translations: [Supervision of high risk , unspecified, third trimester] Onset: 09-06-2024 Episodic Other complications of (2 sources) Unspecified abnormal findings on screening of mother; Translations: [Unspecified abnormal findings on screening of mother] Onset: 09-06-2024 Episodic Other complications of (2 sources) Supervision of other high risk pregnancies, unspecified trimester; Translations: [Supervision of other high risk pregnancies, unspecified trimester] Onset: 09-06-2024 Episodic Other complications of (2 sources) Supervision of high risk , unspecified, second trimester; Translations: [Supervision of high risk , unspecified, second trimester] Onset: 06-30-2024 Episodic Other connective tissue disease (17 sources) Muscle pain; Translations: [Myalgia, unspecified site] 11-30-2021 Episodic Other connective tissue disease (17 sources) Musculoskeletal pain; Translations: [Myalgia, other site] 05-19-2019 Episodic Other connective tissue disease (1 source) Radial styloid tenosynovitis; Translations: [Radial styloid tenosynovitis [de Quervain]] Onset: 09-18-2022 Episodic Other connective tissue disease (1 source) Tenosynovitis of left radial styloid 09-18-2022 Episodic Other female genital disorders (13 sources) Vaginal discharge; Translations: [Other specified noninflammatory [...] sores per pt Other upper respiratory disease (20 sources) Seasonal allergy; Translations: [Other seasonal allergic rhinitis] 11-30-2021 Chronic Comment on above: all year long Other upper respiratory disease (14 sources) Other seasonal allergic rhinitis; Translations: [Allergic rhinitis, cause unspecified] Chronic Other upper respiratory infections (1 source) Acute sinusitis; Translations: [Acute sinusitis, unspecified] Episodic Ovarian cyst (5 sources) Cyst of ovary 06-04-2013 Episodic Polyhydramnios and other problems of amniotic cavity (12 sources) Spontaneous rupture of membranes 06-09-2022 Episodic Residual codes; unclassified (1 source) Sleep apnea, unspecified; Translations: [Sleep apnea, unspecified] Onset: 05-13-2023 Chronic Residual codes; unclassified (1 source) Gestation period, 8 weeks; Translations: [ state, incidental] Episodic Residual codes; unclassified (13 sources) H/O: miscarriage; Translations: [Personal history of [...] other genital system and obstetric disorders] Onset: 09-06-2024 Episodic Residual codes; unclassified (1 source) Sleep disorder; Translations: [Sleep disorder, unspecified] Onset: 08-27-2022 Episodic Residual codes; unclassified (5 sources) Difficulty sleeping 07-04-2020 Episodic Residual codes; unclassified (20 sources) Family history of male genital tract disorder 02-06-2024 Episodic Residual codes; unclassified (1 source) 38 weeks gestation of ; Translations: [38 weeks gestation of ] Onset: 09-09-2024 Episodic Residual codes; unclassified (1 source) 34 weeks gestation of ; Translations: [34 weeks gestation of ] Onset: 09-06-2024 Episodic Residual codes; unclassified (1 source) 32 [...] 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: 09-06-2024 07-30-2022 Chronic Comment on above: noted at [...] underimmunization status; Translations: [Other underimmunization status] Onset: 09-06-2024 Past or Other Problems Problem Classification Problem [...] Interpretation Reference Range Facility Biophysical Prof W/O Muna Figueroa eson 09-09-2024 Biophysical Prof W/O Muna Bhakta [facility] Imaging Services [address], [place] [id number] Biophysical Prof W/O Muna Bhakta MR#: [id number] Acct: [id number] Name: ANAI WOO Rep #: [id number] : 1995 F 29 From: Rodriguez snow MD PCP: Status: REG CLI Study: Biophysical Prof W/O Non Stres Date of Exam: 0 09/09/24 Exam# [id number] Ordering Dr: Tenisha Reyna CNM PROCEDURE: BIOPHYSICAL PROF W/O NON STRES 09/09/2024 REASON FOR EXAM: OBESITY DURING TECHNIQUE: BIOPHYSICAL PROF W/O NON STRES COMPARISON: Prior study dated September 02, 2024. FINDINGS Number: 1 Position: Vertex Placental Position: Anterior and not low-lying. Placental Abnormalities: No evidence of previa. ESTIMATED GESTATIONAL AGE: Baseline: 38 weeks and 2 days. ESTIMATED DATE OF DELIVERY: Baseline: September 21, 2024 BIOPHYSICAL ASSESSMENT: Amniotic Fluid Volume: 6.2 Amniotic Fluid Index: 15.5 (8-24 cm normal range) Cardiac Motion: 140 beats per minute (average) Trunk and Limb Motion: Present. MATERNAL ANATOMY: Adnexa: Neither maternal ovary is successfully identified. Biophysical profile: Breathing movements: 2 Gross body movements: 2 tone: 2 Amniotic fluid volume: 2 Total score: 8/8 US/Biophysical Prof W/O Non Stres IMPRESSION: Normal biophysical profile score. Reading Location: [place] [address] CC: DEAN PEREZ Custodian Athletic Equipment: Signed Normal [facility] Family Therapist Office Visit Reporton 09-09-2024 Family Therapist Office Visit Report [facility] [address], [address] [place] [address] OFFICE VISIT Date of Service: 09/09/24 MR#: [id number] Acct: [id number] Name: ANAI WOO Rep #: [id number] : 1995 Provider: DEAN Massey ams Age/Sex: 29/F Location: [facility] Status: Signed Intake Vital Signs 07/27/24 13:40 09/02/24 11:25 09/09/24 14:13 Height 5 ft 4 in 5 ft 4 in 5 ft 4 in Weight: 284 lb BMI 48.7 BP 126/82 H Intake Visit Reasons: 38 wk ob Chief Complaint: 38 Week OB 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 Required: No Is patient in pain?: No Allergies insect venom Allergy (Intermediate, Verified 09/09/24 14:20) Swelling amoxicillin Allergy (Verified 09/09/24 14:20) Rash Pertussis Vaccines Allergy (Verified 09/09/24 14:20) Other Medications ???Medication ???Instructions ???Recorded ???Confirmed ???Type lamotrigine 200 mg tablet 200 mg PO DAILY 05/18/19 09/09/24 History cetirizine 10 mg tablet 10 mg PO DAILY 05/21/19 09/09/24 H istory multivitamin with iron 1 tab PO QDAY 02/06/24 09/09/24 Hi story sertraline 50 mg tablet (Zoloft) 100 mg PO QDAY 03/26/24 09/09/24 H istory Last Menstrual Period: 12/22/23 Zika: [...] 1 current occupational status: employed current occupation: [employer] current occupational exposures/hazards: No pets and animals: [...] 3-4 times per week duration: 30-45 minutes/day katherine/hoahaoism: None seatbelt use: always do you feel safe at home: Yes additional 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 Date Name GA/Weeks Outcome Route Bth Weight Infant Gen Labor Lgth Anesthesia Del Locatn Provider FOB 06/09/22 Finlee 37 live - full term 7#[address] [facility] rolo Ajit Alvarado Delivery Date: 06/09/22 Last Updated by: Sandy Encinas see problem list for complications, and 37 srom girl SM. HPI 38 wk ob Details: ANAI WOO is a 29 year old who presents for routine OB visit. OB Visit HITESH Calculator Estimated Delivery Date Method Current WG Current Estimate 09/21/24 Ultrasound #1 38w 2d Other Estimates 09/27/24 LMP (Certain) 37w 3d Expected Delivery Route/Plan Labor Preferences- CB/BF [...] -???-???-???-???-???-??? - Effaced St Visit Note 02/18/24 -???-???-???-???-???- (more content not included)... Normal [facility] Biophysical Prof W/O Non Str eson 09-02-2024 Biophysical Prof W/O Non Stres [facility] [address] [place] [address] Biophysical Prof W/O Non Stres MR#: [id number] Acct: [id number] Name: ANAI WOO Rep #: [id number] : 1995 F 29 From: Rodriguez snow MD PCP: Status: REG CLI Study: Biophysical Prof W/O Non Stres Date of Exam: 0 09/02/24 Exam# [id number] Ordering Dr: Tenisha Reyna CNM PROCEDURE: BIOPHYSICAL PROF W/O NON STRES 09/02/2024 REASON FOR EXAM: OBESITY DURING TECHNIQUE: High resolution obstetric ultrasound performed using a 2D transducer. Standard views obtained, including biometry, anatomy survey, and Doppler studies. COMPARISON: Prior study dated August 26, 2024. FINDINGS Number: 1 Position: Vertex Placental Position: Anterior and not low-lying. Placental Abnormalities: No evidence of previa. ESTIMATED GESTATIONAL AGE: Baseline: 37 weeks and 2 days ESTIMATED DATE OF DELIVERY: Baseline: September 21, 2024. BIOPHYSICAL ASSESSMENT: Amniotic Fluid Volume: 7 cm Amniotic Fluid Index: 19.8 (8-24 cm normal range) Cardiac Motion: 148 beats per minute (average) Trunk and Limb Motion: Present. Biophysical profile: Breathing movements: 2 Gross body movements: 2 tone: 2 Amniotic fluid volume: 2 Total score: 8/8 US/Biophysical Prof W/O Non Stres IMPRESSION: Normal biophysical profile. Reading Location: [place] [address] CC: DEAN Reyna; LAURA PEREZ Custodian Athletic Equipment: Signed Normal [facility] Glucose Challenge Gest 1H 50 aurelia 09-02-2024 GLU GEST 50g 1H 91 mg/dL Normal 70-140 [facility] Comment on above: Performed By: #### M 100.2000, M100.3200 #### [facility] [address] [place], [address] Glucose measurement at 2 amanda rs post-dose gestational glucose tolerance testOrdered By: Nenita Wells on 09-02-2024 Glucose [Mass/Vol] 91 mg/dL 70-140 [facility] Laboratory - Chemistry and C hemistry - challengeOrdered By: Fariba Cota on 09-02-2024 Glucose Ql (U) Negative [facility] Laboratory - UrinalysisOrder ed By: Fariba Cota on 09-02-2024 Protein Ql (U) Negative [facility] Family Therapist Office Visit Reporton 09-02-2024 Family Therapist Office Visit Report [facility] [address], [address] [place] [address] OFFICE VISIT Date of Service: 09/02/24 MR#: [id number] Acct: [id number] Name: ANAI WOO Rep #: [id number] : 1995 Provider: NAMITA dubose Age/Sex: 29/F Location: [facility] Status: Signed Intake Vital Signs 07/27/24 13:40 08/26/24 13:15 09/02/24 11:25 Height 5 ft 4 in 5 ft 4 in 5 ft 4 in Weight: 282 lb 4 oz BMI 48.4 BP 120/84 H Intake Visit Reasons: 37 wk ob Chief Complaint: 37 Week OB 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 Required: No Is patient in pain?: No Allergies insect venom Allergy (Intermediate, Verified 09/02/24 11:25) Swelling amoxicillin Allergy (Verified 09/02/24 11:25) Rash Pertussis Vaccines Allergy (Verified 09/02/24 11:25) Other Medications ???Medication ???Instructions ???Recorded ???Confirmed ???Type lamotrigine 200 mg tablet 200 mg PO DAILY 05/18/19 09/02/24 History cetirizine 10 mg tablet 10 mg PO DAILY 05/21/19 09/02/24 H istory multivitamin with iron 1 tab PO QDAY 02/06/24 09/02/24 Hi story sertraline 50 mg tablet (Zoloft) 100 mg PO QDAY 03/26/24 09/02/24 H istory Last Menstrual Period: 12/22/23 Zika: [...] 1 current occupational status: employed current occupation: [employer] current occupational exposures/hazards: No pets and animals: [...] 3-4 times per week duration: 30-45 minutes/day katherine/hoahaoism: None seatbelt use: always do you feel safe at home: Yes additional 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 Date Name GA/Weeks Outcome Route Bth Weight Gen Labor Lgth Anesthesia Del Locatn Provider FOB 06/09/22 Rahul 37 live - full term 7#[address] [facility] rolo Alvarado Delivery Date: 06/09/22 Last Updated by: Sandy Encinas see problem list for complications, and 37 srom girl SM. HPI 37 wk ob Details: ANAI WOO is a 29 year old who presents for routine OB visit. OB Visit HITESH Calculator Estimated Delivery Date Method Current WG Current Estimate 09/21/24 Ultrasound #1 37w 2d Other Estimates 09/27/24 LMP (Certain) 36w 3d Expected Delivery Route/Plan Labor Preferences- CB/BF [...] -???-???-???-???-???-??? - Effaced St Visit Note 02/18/24 -???-???-???-?? (more content not included)... Normal [facility] Rule out Beta Strep (Grp. B) on 08-28-2024 PATRICIA Group B Beta Streptococcus is not isolated. Normal [facility] Comment on above: Performed By: #### M 100.2978 #### [facility] [address] [place], [address] Biophysical Prof W/O Non Str eson 08-26-2024 Biophysical Prof W/O Non Stres [facility] Imaging Services [address] [place], [place] [address] Biophysical Prof W/O Non Stres MR#: [id number] Acct: [id number] Name: ANAI WOO Rep #: [id number] : 1995 F 29 From: Maik Munoz DO PCP: Status: REG CLI Study: Biophysical Prof W/O Non Stres Date of Exam: 0 08/26/24 Exam# [id number] Ordering Dr: Tenisha Reyna CNM PROCEDURE: BIOPHYSICAL [...] by current prior ultrasound: 09/11/2019 Reading Location: [facility] CC: CNM Tenisha Axel; LAURA SIDELL Custodian Athletic Equipment: Signed Normal [facility] Laboratory - Chemistry and C hemistry - challengeOrdered By: Nenita Wells on 08-26-2024 Glucose Ql (U) Negative [facility] - UrinalysisOrder ed By: Nenita Wells on 08-26-2024 Protein Ql (U) Negative [facility] OB Limited With Biometricson 08-26-2024 OB Limited With Biometrics [facility] Imaging Services [address] [place], [place] [address] OB Limited With Biometrics MR#: [id number] Acct: [id number] Name: ANAI WOO Rep #: [id number] : 1995 F 29 From: Rodriguez snow MD PCP: Status: REG CLI Study: OB Limited With Biometrics Date of Exam: 08/26 Exam# [id number] Ordering Dr: Nenita Wells PROCEDURE: OB LIMITED [...] with the normal expected range. Reading Location: [place] [address] CC: LAURA PEREZ; Dr. Nenita Wells MD Custodian Athletic Equipment: Signed Normal [facility] Family Therapist Office Visit Reporton 08-26-2024 Family Therapist Office Visit Report [facility] [address], [address] [place] [address] OFFICE VISIT Date of Service: 08/26/24 MR#: [id number] Acct: [id number] Name: ANAI WOO Rep #: [id number] : 1995 Provider: Dr. Nenita husain MD Age/Sex: 29/F Location: [facility] Status: Signed Intake Vital Signs 06/30/24 14:36 08/11/24 13:01 08/26/24 13:14 08/26/24 13:15 Height 5 ft 4 in 5 ft 4 in 5 ft 4 in 5 ft 4 in Weight: 281 lb 4 oz BMI 48.2 BP 119/80 Intake Visit Reasons: 36wk ob 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 Required: No Is patient in pain?: No [...] 1 current occupational status: employed current occupation: [employer] current occupational exposures/hazards: No pets and animals: [...] 3-4 times per week duration: 30-45 minutes/day katherine/hoahaoism: None seatbelt use: always do you feel safe at home: Yes additional 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 Date Name GA/Weeks Outcome Route Bth Weight Infant Gen Labor Lgth Anesthesia Del Locatn Provider FOB 06/09/22 Finlee 37 live - full term 7#[address] [facility] rolo Alvarado Delivery Date: 06/09/22 Last [...] 02/18/24 -???-???-???-???-?? (more content not included)... Normal [facility] Screening beta-hemolytic Str eptococcus cultureOrdered By: Nenita Wells on 08-26-2024 Beta-hemolytic Streptococcus culture Group B Beta Streptococcus is not isolated. [facility] Biophysical Prof W/O Non Str eson 08-19-2024 Biophysical Prof W/O Non Ninoskas [facility] Imaging Services [address] [place] [address] Biophysical Prof W/O Muna Bhakta MR#: [id number] Acct: [id number] Name: SOLEANAI LOPEZ Rep #: [id number] : 1995 F 29 From: Rodriguez snow MD PCP: LAURA PEREZ Status: REG CLI Study: Biophysical Prof W/O Non Stres Date of Exam: 0 08/19/24 Exam# [id number] Ordering Dr: Tenisha Reyna CNM PROCEDURE: BIOPHYSICAL [...] Stres IMPRESSION: Normal biophysical profile. Reading Location: [id number] CC: DEAN PEREZ Custodian Athletic Equipment: Signed Normal [facility] OB Triage Physician Noteon 0 08-19-2024 OB Triage Physician Note [facility] Medical Records Department [address] [place] [address] OB Triage Physician Note 08/19/24 0020 MR#: [id number] Acct: [id number] Name: ANAI WOO Rep #: [id number] : 1995 29 From: Beverley Moncada DO PCP: Care Physician,No Primary Status:DEP CLI Y Location: [facility] HPI - General General Date of Admission: 08/11/24 HPI Narrative ANAI WOO, is a 29 @ 34 weeks 1 day F who presents to [facility] for prolonged monitoring for bpp 08/29 Maternal Data Information HITESH Calculator Estimated Delivery Date Method Current WG Current Estimate 07/01/25 Ultrasound #1 35w 2d Other Estimates 09/27/24 [...] 1 current occupational status: employed current occupation: [employer] current occupational exposures/hazards: No pets and animals: [...] 3-4 times per week duration: 30-45 minutes/day katherine/hoahaoism: None seatbelt use: always do you feel safe at home: Yes additional 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 Date Name GA/Weeks Outcome Route Bth Weight Gen Labor Lgth Anesthesia Del Locatn Provider FOB 06/09/22 Finlee 37 live - full term 7#[address] [facility] rolo Alvarado Delivery Date: 06/09/22 Last [...] dates HITESH (more content not included)... Normal [facility] ([facility]) Rupture Of Membraneson 08-11-2024 ROM Negative Normal Negative [facility] Comment on above: Result Comment: Amni otic fluid not present indicates No Rupture of Membranes at time of specimen collection. Performed By: #### L 205.1000 ####[facility] [id number] [facility]. [place], [place], [address] Biophysical Prof W/O Non Str eson 08-11-2024 Biophysical Prof W/O Non Stres [facility] Imaging Services [address] [place], [place] [address] Biophysical Prof W/O Non Stres MR#: [id number] Acct: [id number] Name: ANAI WOO Rep #: [id number] : 1995 F 29 From: Rodriguez snow MD PCP: Care Physician,No Primary Status: REG CLI Study: Biophysical Prof W/O Non Stres Date of Exam: 0 08/11/24 Exam# [id number] Ordering Dr: Tenisha Reyna CNM PROCEDURE: BIOPHYSICAL [...] IMPRESSION: biophysical profile score: 6/8. Reading Location: [place] [address] CC: DEAN Reyna; No Primary Care Physician Custodian Athletic Equipment: Signed Normal [facility] Laboratory - Chemistry and C hemistry - challengeOrdered By: Beverley Vázquez on 08-11-2024 Glucose Ql (U) Negative [facility] Laboratory - UrinalysisOrder ed By: Beverley Vázquez on 08-11-2024 Protein Ql (U) Negative [facility] Family Therapist Office Visit Reporton 08-11-2024 Family Therapist Office Visit Report [facility] [address], [address] [place] [address] OFFICE VISIT Date of Service: 08/11/24 MR#: [id number] Acct: [id number] Name: ANAI WOO Rep #: [id number] : 1995 Provider: Dr. Beverley Zambrano DO Age/Sex: 29/F Location: [facility] Status: Signed Intake Vital Signs 06/30/24 14:36 07/27/24 13:40 08/11/24 10:10 Height 5 ft 4 in 5 ft 4 in 5 ft 4 in Weight: 277 lb 8 oz BMI 47.6 BP 121/87 H Intake Visit Reasons: 34wk ob 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 Required: No Is patient in pain?: No [...] 1 current occupational status: employed current occupation: [employer] current occupational exposures/hazards: No pets and animals: [...] 3-4 times per week duration: 30-45 minutes/day katherine/hoahaoism: None seatbelt use: always do you feel safe at home: Yes additional 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 Date Name GA/Weeks Outcome Route Bth Weight Infant Gen Labor Lgth Anesthesia Del Locatn Provider FOB 06/09/22 Finlee 37 live - full term 7#[address] [facility] rolo Alvarado Delivery Date: 06/09/22 Last [...] -???-???-???-???-???-??? -???-???-???-???-? (more content not included)... Normal [facility] Laboratory - Chemistry and C hemistry - challengeOrdered By: Tenisha Reyna on 07-27-2024 Glucose Ql (U) Negative [facility] Laboratory - UrinalysisOrder ed By: Tenisha Reyna on 07-27-2024 Protein Ql (U) Negative [facility] OB Limited With Biometricson 07-27-2024 OB Limited With Biometrics [facility] Imaging Services [address] [place] [address] OB Limited With Biometrics MR#: [id number] Acct: [id number] Name: ANAI WOO Rep #: [id number] : 1995 F 29 From: Nick Schreiber MD PCP: Care Physician,No Primary Status: REG CLI Study: OB Limited With Biometrics Date of Exam: 07/27 Exam# [id number] Ordering Dr: Nenita Wells PROCEDURE: OB LIMITED [...] represent a possible placental Pop. Reading Location: [id number] CC: Dr. Nenita Wells MD; No Primary Care Physician Custodian Athletic Equipment: Signed Normal [facility] Family Therapist Office Visit Reporton 07-27-2024 Family Therapist Office Visit Report [facility] [address], [address] [place] [address] OFFICE VISIT Date of Service: 07/27/24 MR#: [id number] Acct: [id number] Name: ANAI WOO Rep #: [id number] : 1995 Provider: DEAN Massey ams Age/Sex: 29/F Location: [facility] Status: Signed Intake Vital Signs 06/16/24 14:12 07/13/24 14:55 07/27/24 13:40 Height 5 ft 4 in 5 ft 4 in 5 ft 4 in Weight: 278 lb 2 oz BMI 47.7 BP 126/86 H Intake Visit Reasons: 32wk ob Chief Complaint: 32wk OB 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 Required: No Is patient in pain?: No [...] 1 current occupational status: employed current occupation: [employer] current occupational exposures/hazards: No pets and animals: [...] 3-4 times per week duration: 30-45 minutes/day katherine/hoahaoism: None seatbelt use: always do you feel safe at home: Yes additional 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 Date Name GA/Weeks Outcome Route Bth Weight Gen Labor Lgth Anesthesia Del Locatn Provider FOB 06/09/22 Rahul 37 live - full term 7#[address] [facility] rolo Alvarado Delivery Date: 06/09/22 Last [...] -???-???-???-???-???-??? -???-???-???-???-??? (more content not included)... Normal [facility] Family Therapist Office Visit Reporton 07-13-2024 Family Therapist Office Visit Report [facility] [address] [place] [address], [address] [place] [address] OFFICE VISIT Date of Service: 07/13/24 MR#: [id number] Acct: [id number] Name: ANAI WOO Rep #: [id number] : 1995 Provider: Dr. Nenita husain MD Age/Sex: 29/F Location: [facility] Status: Signed Intake Vital Signs 06/16/24 14:12 06/30/24 14:36 07/13/24 14:55 Height 5 ft 4 in 5 ft 4 in 5 ft 4 in Weight: 275 lb 6 oz BMI 47.2 BP 117/76 Intake Visit Reasons: 30wk ob 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 Required: No Is patient in pain?: No [...] 1 current occupational status: employed current occupation: [employer] current occupational exposures/hazards: No pets and animals: [...] 3-4 times per week duration: 30-45 minutes/day katherine/hoahaoism: None seatbelt use: always do you feel safe at home: Yes additional 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 Date Name GA/Weeks Outcome Route Bth Weight Gen Labor Lgth Anesthesia Del Locatn Provider FOB 06/09/22 Finlee 37 live - full term 7#2 [facility] Delivery Date: 06/09/22 Last [...] - 9w (more content not included)... Normal [facility] Absolute lymphocyte countOrd ered By: Beverley Baronetracey on 06-30-2024 Lymphocytes Auto (Unsp spec) [#/Vol] 2.65 10*3/uL 0.83-4.51 [facility] Absolute neutrophil countOrd ered By: Beverley Kathie on 06-30-2024 Neutrophils (Bld) [#/Vol] 9.7 10*3/uL High 2.0-7.7 [facility] Automated lymphocyte count a s percentage of total leukocytesOrdered By: Beverley Kathie on 06-30-2024 Lymphocytes/100 WBC Auto (Unsp spec) 20.0 % 19-41 [facility] Basophil percentageOrdered B y: Beverley Kathie on 06-30-2024 Basophils/100 WBC (Bld) 0.2 % 0-1 [facility] CBC W/Diff, Automatedon 04-0 Absolute Lymph 2.65 X10 3/uL Normal 0.83-4.51 [facility] Comment on above: Performed By: #### M , M1.3200 #### [facility] [address] [place], [address] Absolute Neut 9.7 X10 3/uL High 2.0-7.7 [facility] Comment on above: Performed By: #### M , M100.3200 #### [facility] [address] [place], [address] Basophils/100 WBC (Bld) 0.2 % Normal 0-1 [facility] Comment on above: Performed By: #### M , .0 #### [facility] [address] [place], [address] Eosinophils/100 WBC (Bld) 1.6 % Normal 0-5 [facility] Comment on above: Performed By: #### M , .0 #### [facility] [address] [place], [address] Erythrocyte distribution width (RBC) [Ratio] 15.4 % High 11.6-14.6 [facility] Comment on above: Performed By: #### M , .0 #### [facility] [address] [place], [address] Hematocrit (Bld) [Volume fraction] 39.7 % Normal 37-47 [facility] Comment on above: Performed By: #### M , .0 #### [facility] [address] [place], [address] Hemoglobin (Bld) [Mass/Vol] 13.1 g/dL Normal 12.0-15.0 [facility] Comment on above: Performed By: #### M , .0 #### [facility] [address] [place], [address] IG% 0.800 Normal 0.0-0.9 [facility] Comment on above: Result Comment: IG% - Immature Granulocytes (promyelocytes, myelocytes and metamyelocytes) > 1% indicates that a LEFT SHIFT is Present. Performed By: #### M , .0 #### [facility] [address] [place], [address] Lymphocytes/100 WBC (Bld) 20.0 % Normal 19-41 [facility] Comment on above: Performed By: #### M , M1 #### [facility] [address] [place], [address] MCH (RBC) [Entitic mass] 28.1 pg Normal 27.0-32.0 [facility] Comment on above: Performed By: #### M , .3200 #### [facility] [address] [place], [address] MCHC (RBC) [Mass/Vol] 33.0 g/dL Normal 32-36 [facility] Comment on above: Performed By: #### M , .0 #### [facility] [address] [place], [address] MCV (RBC) [Entitic vol] 85.0 fL Normal 81-99 [facility] Comment on above: Performed By: #### M , .0 #### [facility] [address] [place], [address] Monocytes/100 WBC (Bld) 4.3 % Normal 0-10 [facility] Comment on above: Performed By: #### M , .0 #### [facility] [address] [place], [address] Neutrophils/100 WBC (Bld) 73.1 % High 47-70 [facility] Comment on above: Performed By: #### M , .0 #### [facility] [address] [place], [address] Nucleated RBC (Bld) [#/Vol] 0 10*3/uL Normal 0-5 [facility] Comment on above: Performed By: #### M , .3200 #### [facility] [address] [place], [address] Platelet mean volume (Bld) [Entitic vol] 10.0 fL Normal 6.2-12.0 [facility] Comment on above: Performed By: #### M , M100.3200 #### [facility] [address] [place], [address] Platelets (Bld) [#/Vol] 303 10*3/uL Normal 150-450 [facility] Comment on above: Performed By: #### M , M100.3200 #### [facility] [address] [place], [address] RBC (Bld) [#/Vol] 4.67 10*6/uL Normal 4.2-5.4 [facility] Comment on above: Performed By: #### M , M100.3200 #### [facility] [address] [place], [address] RDW SD 46.7 fl High 35.1-43.9 [facility] Comment on above: Performed By: #### M , M100.3200 #### [facility] [address] [place], [address] WBC (Bld) [#/Vol] 13.3 10*3/uL High 4.4-11.0 [facility] Comment on above: Performed By: #### M , M100.3200 #### [facility] [address] [place], [address] Eosinophil percentageOrdered By: Beverley Vázquez on 06-30-2024 Eosinophils/100 WBC (Bld) 1.6 % 0-5 [facility] Erythrocyte distribution wid th (RBC) [Ratio]Ordered By: Beverley Vázquez on 06-30-2024 Erythrocyte distribution width (RBC) [Entitic vol] 46.7 fL High 35.1-43.9 [facility] Erythrocyte distribution wid th ratioOrdered By: Beverley Vázquez on 06-30-2024 Erythrocyte distribution width (RBC) [Ratio] 15.4 % High 11.6-14.6 [facility] Erythrocyte distribution wid th standard deviationOrdered By: Beverley Vázquez on 06-30-2024 Erythrocyte distribution width (RBC) [Ratio] 46.7 fl High 35.1-43.9 [facility] Glucose Challenge Gest 1H 50 aurelia 06-30-2024 GLU GEST 50g 1H 113 mg/dL Normal 70-140 [facility] Comment on above: Performed By: #### M 100, M100.3200 #### [facility] [address] [facility] [place], [place], [address] Glucose measurement at 2 amanda rs post-dose gestational glucose tolerance testOrdered By: Beverley Vázquez on 06-30-2024 Glucose [Mass/Vol] 113 mg/dL 70-140 [facility] HIVon 06-30-2024 HIV Non-Reactive Normal Nonreactive [facility] Comment on above: Result Comment: Non- Reactive Reactive Repeatedly reactive samples must be confirmed according to CDC recommended confirmatory algorithms. The subresults for either HIVAG or AHIV can be used as an aid in the selection of the confirmation algorithm for reactive samples. Send out specimens with Reactive results to [facility] for confirmation. Order the HIV antibody detection and differentiation: lc#[id number] Performed By: #### M 100, M100.3200 #### [facility] [address] [place], [place], [address] Hematocrit Auto (Bld) [Volum e fraction]Ordered By: Beverley Vázquez on 06-30-2024 Hematocrit (Bld) [Volume fraction] 39.7 % 37-47 [facility] Hemoglobin measurementOrdere d By: Beverley Vázquez on 06-30-2024 Hemoglobin (Bld) [Mass/Vol] 13.1 g/dL 12.0-15.0 [facility] Immature granulocytes/100 WB C Auto (Bld)Ordered By: Beverley Vázquez on 06-30-2024 Immature granulocytes/100 WBC (Bld) 0.800 % 0.0-0.9 [facility] Comment on above: IG% - Immature Granu locytes (promyelocytes, myelocytes and metamyelocytes) > 1% indicates that a LEFT SHIFT is Present. Laboratory - Chemistry and C hemistry - challengeOrdered By: Fariba Cota on 06-30-2024 Glucose Ql (U) Negative [facility] Laboratory - UrinalysisOrder ed By: Fariba Cota on 06-30-2024 Protein Ql (U) Negative [facility] Lymphocytes Auto (Unsp spec) [#/Vol]Ordered By: Beverley Vázquez on 06-30-2024 Lymphocytes (Bld) [#/Vol] 2.65 10*3/uL 0.83-4.51 [facility] Lymphocytes/100 WBC Auto (Un sp spec)Ordered By: Beverley Vázquez on 06-30-2024 Lymphocytes/100 WBC (Bld) 20.0 % 19-41 [facility] MCV (mean corpuscular volume ) determinationOrdered By: Beverley Vázquez on 06-30-2024 MCV (RBC) [Entitic vol] 85.0 fL 81-99 [facility] Mean corpuscular hemoglobin (MCH) determinationOrdered By: Beverley Vázquez on 06-30-2024 MCH (RBC) [Entitic mass] 28.1 pg 27.0-32.0 [facility] Mean corpuscular hemoglobin concentration (MCHC) determinationOrdered By: Beverley Vázquez on 06-30-2024 MCHC (RBC) [Mass/Vol] 33.0 g/dL 32-36 [facility] Mean platelet volume determi nationOrdered By: Beverley Vázquez on 06-30-2024 Platelet mean volume (Bld) [Entitic vol] 10.0 fL 6.2-12.0 [facility] Monocyte percentageOrdered B y: Beverley Vázquez on 06-30-2024 Monocytes/100 WBC (Bld) 4.3 % 0-10 [facility] Neutrophil percentageOrdered By: Beverley Vázquez on 06-30-2024 Neutrophils/100 WBC (Bld) 73.1 % High 47-70 [facility] No Panel InformationOrdered By: Beverley Vázquez on 06-30-2024 HIV (1&2) Antibody Non-Reactive Nonreactive [facility] Comment on above: Non-ReactiveReactive Repeatedly reactive samples must be confirmed according to CDC recommended confirmatory algorithms. The subresults for either HIVAG or AHIV can be used as an aid in the selection of the confirmation algorithm for reactive samples.Send out specimens with Reactive results to [facility] for confirmation.Order the HIV antibody detection and differentiation: #[id number] Nucleated red blood cell per centageOrdered By: Beverley Vázquez on 06-30-2024 Nucleated RBC/100 WBC (Bld) [Ratio] 0 % 0-5 [facility] Family Therapist Office Visit Reporton 06-30-2024 Family Therapist Office Visit Report [facility] [address], [address] [place] [address] OFFICE VISIT Date of Service: 06/30/24 MR#: [id number] Acct: [id number] Name: ANAI WOO Rep #: [id number] : 1995 Provider: NAMITA dubose Age/Sex: 29/F Location: [facility] Status: Signed Intake Vital Signs 06/16/24 14:12 06/21/24 21:15 06/30/24 14:31 06/30/24 14:36 Height 5 ft 4 in 5 ft 4 in 5 ft 4 in 5 ft 4 in Weight: 272 lb 6 oz BMI 46.7 BP 124/86 H Intake Visit Reasons: 28wk ob Chief Complaint: 28 Week OB 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 Required: No Is patient in pain?: No [...] 1 current occupational status: employed current occupation: [employer] current occupational exposures/hazards: No pets and animals: [...] 3-4 times per week duration: 30-45 minutes/day katherine/hoahaoism: None seatbelt use: always do you feel safe at home: Yes additional 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 Date Name GA/Weeks Outcome Route Bth Weight Gen Labor Lgth Anesthesia Del Locatn Provider FOB 06/09/22 Finlee 37 live - full term 7#[address] [facility] rolo Alvarado Delivery Date: 06/09/22 Last [...] Visit Note (more content not included)... Normal [facility] Platelet countOrdered By: Haim Vázquez on 06-30-2024 Platelets (Bld) [#/Vol] 303 10*3/uL 150-450 [facility] RBC Auto (Bld) [#/Vol]Ordere d By: Beverley Vázquez on 06-30-2024 RBC (Bld) [#/Vol] 4.67 10*6/uL 4.2-5.4 [facility] Syphilis Antibodieson 2024 Syphilis Abs Non-Reactive Normal Nonreactive [facility] Comment on above: Performed By: #### M 100.2000, M100.3200 #### [facility] [address] [place], [place], [address] T. pallidum abOrdered By: Haim chaconrula Kathie on 06-30-2024 Syphilis Total Antibody Non-Reactive Nonreactive [facility] White blood cell (WBC) count Ordered By: Beverley Baronetracey on 06-30-2024 WBC (Bld) [#/Vol] 13.3 10*3/uL High 4.4-11.0 [facility] Genital Culture Comprehensiv martha 06-26-2024 VAC Normal vaginal soumya isolated. No yeast, Gardnerella, Neisseria or beta-hemolytic Streptococcus isolated. Normal [facility] Comment on above: Performed By: #### M 100.1999, M100.3200 #### [facility] [address] [place], [place], [id number] Urine Cultureon 06-24-2024 URC Below infection leve l. Mixed Gram Positive Organisms [place] Count 1000-10,000 MIXC Mixed contaminants. Submit a new specimen if indicated. Normal [facility] Comment on above: Performed By: #### M 100.1999, M100.3200 #### [facility] [address] [facility] [place], [address] OB Triage Progress Noteon OB Triage Progress Note [facility] Medical Records Department [address] [place] [address] OB Triage Progress Note 06/22/24 0038 MR#: [id number] Acct: [id number] Name: ANAI WOO LOPEZ Rep #: [id number] : 1995 29 From: Tenisha Reyna CNM [...] dehydrated. FHT: 135 appropriate for gestational age Manti: no Contractions Assessment and plan: US for [...] pH 6.0 (5.0 - 8.0) Ur Specific [place] 1.030 (1.002-1.030) Urine Protein 30 H (Negative) mg/dl Urine Glucose (UA) Normal (Normal) mg/dl Urine Ketones 5 H (Negative) mg/dl Urine Occult Blood 10 H (Negative) /ul Urine Nitrite Negative (Negative) Urine Bilirubin Negative (Negative) mg/dL Urine Urobilinogen Normal (Normal) mg/dl Ur Leukocyte Esterase 25 H (Negative) /ul Fibronectin Negative Charges/Coding Multi Select Codes Visit Charges Visit Charges: 25026 Subs Hosp L3 Urinary/Genital Urinary/Genital CPT Codes: 13301-42 non-stress test Interp Assessment Plan (1) Vaginal [...] second trimester COMMENT: PRR. , HITESH 09/27/24, ESTER alarcon Fiance Jacob (8) : QUALIFIERS: Weeks of gestation: 26 [...] Reyna; No Primary Care Physician Signed Normal [facility] Bilirubin Test strip Ql (U)O rdered By: Tenisha Reyna on 06-21-2024 Bilirubin Ql (U) Negative Negative [facility] Fibronectinon 06-22-19 fFIBRONECTIN Negative Normal [facility] Comment on above: Performed By: #### L 205.0000 ####[facility] [id number] [place], [address] fibronectinOrdered By: Tenisha Reyna on 06-21-2024 Fibronectin. (Vag fld) [Mass/Vol] Negative [facility] Fibronectin. (Vag fld) [Mass/Vol]Ordered By: Tenisha Reyna on 06-21-2024 Fibronectin Negative [facility] Genital cultureOrdered By: Prosper Reyna on 06-21-2024 Genital Culture Neisseria or beta-hemolytic Streptococcus isolated. [facility] Source specific culture Neisseria or beta-hemolytic Streptococcus isolated. [facility] Glucose Ql (U)Ordered By: Gen Reyna on 06-21-2024 Urine Glucose (UA) Normal mg/dl Normal [facility] Gram Stainon 06-21-2024 GS Gram Stain 4+ Gram positive rods Rare White Blood Cells No Gram negative diplococci Score = 0 Interpretation: 0-3 Normal, 4-6 Intermediate, 7-10 Positive BV Normal [facility] Comment on above: Performed By: #### M 100.2000, M100.3200 #### [facility] [address] [facility] [place], [address] Gram stainOrdered By: Tenisha Reyna on 06-21-2024 Microscopic observation Gram stain Nom (Unsp spec) [facility] Ketones Test strip Ql (U)Ord ered By: Tenisha Reyna on 06-21-2024 Ketones Ql (U) 5 mg/dl High Negative [facility] Nitrite Test strip Ql (U)Ord ered By: Tenisha Reyna on 06-21-2024 Nitrite Ql (U) Negative Negative [facility] OB Limited With Biometricson 06-21-2024 OB Limited With Biometrics [facility] Imaging Services [address] [place] [address] OB Limited With Biometrics MR#: [id number] Acct: [id number] Name: ANAI WOO Rep #: [id number] : 1995 F 29 From: Daniela Daniels DO PCP: Care Physician,No Primary Status: REG CLI Study: OB Limited With Biometrics Date of Exam: 06/21 Exam# [id number] Ordering Dr: Tenisha Reyna CNM PROCEDURE: OB [...] CC: DEAN Reyna; No Primary Care Physician Custodian Athletic Equipment: Signed Normal [facility] Protein Test strip Ql (U)Ord ered By: Tenisha Reyna on 06-21-2024 Protein Ql (U) 30 mg/dl High Negative [facility] Urinalysis, Routine (Dipstic k)on 06-21-2024 BILIRUBIN URINE Negative Normal Negative [facility] Comment on above: Order Comment: COSMO CTOR TO SPECIFY Performed By: #### M , .3200 #### [facility] [address] [place], [place], [address] Clarity (U) Clear Normal Clear [facility] Comment on above: Order Comment: COSMO CTOR TO SPECIFY Performed By: #### M , .3200 #### [facility] [address] [place], [address] Color (U) Yellow Normal Yellow [facility] Comment on above: Order Comment: COSMO CTOR TO SPECIFY Performed By: #### M , .3200 #### [facility] [address] [place], [address] GLUCOSE, UR Normal Normal Normal [facility] Comment on above: Order Comment: COSMO CTOR TO SPECIFY Performed By: #### M , .3200 #### [facility] [address] [place], [address] KETONE UR 5 mg/dl Abnormal Negative [facility] Comment on above: Order Comment: COSMO CTOR TO SPECIFY Performed By: #### M , 00.3200 #### [facility] [address] [place], [address] LEUK ESTERASE 25 /ul Abnormal Negative [facility] Comment on above: Order Comment: COSMO CTOR TO SPECIFY Performed By: #### M , .3200 #### [facility] [address] [place], [address] Nitrite Ql (U) Negative Normal Negative [facility] Comment on above: Order Comment: COSMO CTOR TO SPECIFY Performed By: #### M , .3200 #### [facility] [address] [place], [address] OCCULT BLOOD-UR 10 /ul Abnormal Negative [facility] Comment on above: Order Comment: COSMO CTOR TO SPECIFY Performed By: #### M , 00.3200 #### [facility] [address] [place], [address] pH UR 6.0 Normal 5.0 - 8.0 [facility] Comment on above: Order Comment: COSMO CTOR TO SPECIFY Performed By: #### M , .3200 #### [facility] [address] [place], [address] PROT DIPSTX 30 mg/dl Abnormal Negative [facility] Comment on above: Order Comment: COSMO CTOR TO SPECIFY Performed By: #### M , .3200 #### [facility] [address] [place], [address] SP.GR. DIPSTX 1.030 Normal 1.002-1.030 [facility] Comment on above: Order Comment: COSMO CTOR TO SPECIFY Performed By: #### M 100.1999, M100.3200 #### [facility] [address] [place], [address] UROBILI Normal Normal Normal [facility] Comment on above: Order Comment: COSMO CTOR TO SPECIFY Performed By: #### M 100.1999, M100.3200 #### [facility] [address] [place], [place], [address] Urine blood detectionOrdered By: Tenisha Reyna on 06-21-2024 Urine Occult Blood 10 /ul High Negative [facility] Urine clarityOrdered By: Des Reyna on 06-21-2024 Clarity (U) Clear Clear [facility] Urine color determinationOrd ered By: Tenisha Reyna on 06-21-2024 Color (U) Yellow Yellow [facility] Urine cultureOrdered By: Des Reyna on 06-21-2024 Bacteria identified Cx Nom (U) Positive Abnormal [facility] Urine glucose detectionOrder ed By: Tenisha Reyna on 06-21-2024 Glucose Ql (U) Normal mg/dl Normal [facility] Urine leukocyte esterase det ection by dipstickOrdered By: Tenisha Reyna on 06-21-2024 Leukocyte esterase Test strip Ql (U) 25 /ul High Negative [facility] Urine pHOrdered By: Tenisha ibarra on 06-21-2024 pH (U) 6.0 [pH] 5.0 - 8.0 [facility] Urine specific gravity measu rementOrdered By: Tenisha Reyna on 06-21-2024 Specific gravity (U) [Rel density] 1.030 1.002-1.030 [facility] Urine urobilinogen measureme ntOrdered By: Tenisha Reyna on 06-21-2024 Urobilinogen Ql (U) Normal mg/dl Normal [facility] Urobilinogen Ql (U)Ordered B y: Tenisha Reyna on 06-21-2024 Urine Urobilinogen Normal mg/dl Normal [facility] Family Therapist Office Visit Reporton 06-16-2024 Family Therapist Office Visit Report [facility], [address] [place] [address] OFFICE VISIT Date of Service: 06/16/24 MR#: [id number] Acct: [id number] Name: ANAI WOO Rep #: [id number] : 1995 Provider: Dr. 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 Date Name GA/Weeks Outcome Route Bth Weight Gen Labor Lgth Anesthesia Del Locatn Provider FOB 06/09/22 Finlee 37 live - full term 7#2 Female epidural [facility] Vidasolomon Alvarado Delivery Date: 06/09/22 Last Updated by: [...] Dilation -???-???-???-???-??? (more content not included)... Normal [facility] Laboratory - Chemistry and C hemistry - challengeon 04-21-2024 Glucose Ql (U) Negative [facility] Laboratory - Urinalysison Protein Ql (U) Negative [facility] Family Therapist Office Visit Reporton 04-21-2024 Family Therapist Office Visit Report [facility] [address], [address] [place] [address] OFFICE VISIT Date of Service: 04/21/24 MR#: [id number] Acct: [id number] Name: ANAI WEBBER Rep #: [id number] : 1995 Provider: NAMITA dubose Age/Sex: 28/F Location: [facility] Status: Signed Intake Vital Signs 03/26/24 13:14 04/21/24 13:38 Height 5 ft 4 in 5 ft 4 in Weight: 270 lb 6 oz 270 lb BMI 46.4 46.3 BP 118/81 H 111/76 Intake Visit Reasons: 18 wk ob Chief Complaint: 18 Week OB 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 Required: No Is patient in pain?: No [...] 1 current occupational status: employed current occupation: [employer] current occupational exposures/hazards: No pets and animals: [...] 3-4 times per week duration: 30-45 minutes/day katherine/hoahaoism: None seatbelt use: always do you feel safe at home: Yes additional 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 Date Name GA/Weeks Outcome Route Bth Weight Infant Gen Labor Lgth Anesthesia Del Locatn Provider FOB 06/09/22 Gaetanoleawais 37 live - full term 7#[address] [facility] rolo Ajit Alvarado Delivery Date: 06/09/22 Last [...] -???-???-???-???-???-??? -???-???-???-?? (more content not included)... Normal [facility] Miscellaneous Lab Procedureo n 03-31-2024 [facility] [place] Normal [facility] Comment on above: Order Comment: Comme nts: [id number] SERUM RFTSH Receptor Antibodies Result Comment: TEST RESULTS LIMITS Thyrotropin Receptor Ab, Serum <1.10 IU/L 0.00-1.75 TESTING PERFORMED AT [facility]. ORIGINAL REPORT ON FILE IN LAB CONTAINS ADDITIONAL TEST SITE INFORMATION. Performed By: #### L 501.9520, L509.8000, L900.0098, L3890.6005, BTS, L3890.6100, L506.0400, L3890.6300, L801.1541, L509.4005, L100.0100, L501.9985, L500.4050 ####[facility] [address] [place], [address] Absolute neutrophil countOrd ered By: Tenisha Reyna on 03-26-2024 Neutrophils (Bld) [#/Vol] 7.3 10*3/uL 2.0-7.7 [facility] Albumin to globulin ratioOrd ered By: Tenisha Reyna on 03-26-2024 Albumin/Globulin [Mass ratio] 0.8 {ratio} Low 0.9-2.4 [facility] Basophil percentageOrdered B y: Tenisha Reyna on 03-26-2024 Basophils/100 WBC (Bld) 0.4 % 0-1 [facility] Bilirubin, totalOrdered By: Tenisha Reyna on 03-26-2024 Bilirubin [Mass/Vol] 0.30 mg/dL 0.20-1.00 [facility] Comment on above: For patients on eltr ombopag therapy, use of Dimension Emerson TBIL is not recommended. Blood urea nitrogen (BUN)/cr eatinine ratioOrdered By: Tenisha Reyna on 03-26-2024 Urea nitrogen/Creatinine [Mass ratio] 17.0 mg/mg 10-20 [facility] CBC W/Diff, Automatedon Absolute Lymph 3.23 X10 3/uL Normal 0.83-4.51 [facility] Comment on above: Performed By: #### L 501.9520, L509.8000, L900.0098, L3890.6005, BTS, L3890.6100, L506.0400, L3890.6300, L801.1541, L509.4005, L100.0100, L501.9985, L500.4050 #### [facility] [address] [place], [address] Absolute Neut 7.3 X10 3/uL Normal 2.0-7.7 [facility] Comment on above: Performed By: #### L 501.9520, L509.8000, L900.0098, L3890.6005, BTS, L3890.6100, L506.0400, L3890.6300, L801.1541, L509.4005, L100.0100, L501.9985, L500.4050 #### [facility] [address] [place], [place], [id number] ([address] Basophils/100 WBC (Bld) 0.4 % Normal 0-1 [facility] Comment on above: Performed By: #### L 501.9520, L509.8000, L900.0098, L3890.6005, BTS, L3890.6100, L506.0400, L3890.6300, L801.1541, L509.4005, L100.0100, L501.9985, L500.4050 #### [facility] [address] [place], [address] Eosinophils/100 WBC (Bld) 1.7 % Normal 0-5 [facility] Comment on above: Performed By: #### L 501.9520, L509.8000, L900.0098, L3890.6005, BTS, L3890.6100, L506.0400, L3890.6300, L801.1541, L509.4005, L100.0100, L501.9985, L500.4050 #### [facility] [address] [place], [address] Erythrocyte distribution width (RBC) [Ratio] 15.7 % High 11.6-14.6 [facility] Comment on above: Performed By: #### L 501.9520, L509.8000, L900.0098, L3890.6005, BTS, L3890.6100, L506.0400, L3890.6300, L801.1541, L509.4005, L100.0100, L501.9985, L500.4050 #### [facility] [address] [place], [address] (162) Hematocrit (Bld) [Volume fraction] 39.8 % Normal 37-47 [facility] Comment on above: Performed By: #### L 501.9520, L509.8000, L900.0098, L3890.6005, BTS, L3890.6100, L506.0400, L3890.6300, L801.1541, L509.4005, L100.0100, L501.9985, L500.4050 #### [facility] [address] [place], [place], [id number] (761) Hemoglobin (Bld) [Mass/Vol] 12.7 g/dL Normal 12.0-15.0 [facility] Comment on above: Performed By: #### L 501.9520, L509.8000, L900.0098, L3890.6005, BTS, L3890.6100, L506.0400, L3890.6300, L801.1541, L509.4005, L100.0100, L501.9985, L500.4050 #### [facility] [address] [facility] [place], [address] IG% 0.300 Normal 0.0-0.9 [facility] Comment on above: Result Comment: IG% - Immature Granulocytes (promyelocytes, myelocytes and metamyelocytes) > 1% indicates that a LEFT SHIFT is Present. Performed By: #### L 501.9520, L509.8000, L900.0098, L3890.6005, BTS, L3890.6100, L506.0400, L3890.6300, L801.1541, L509.4005, L100.0100, L501.9985, L500.4050 #### [facility] [address] [facility] [place], [address] Lymphocytes/100 WBC (Bld) 28.1 % Normal 19-41 [facility] Comment on above: Performed By: #### L 501.9520, L509.8000, L900.0098, L3890.6005, BTS, L3890.6100, L506.0400, L3890.6300, L801.1541, L509.4005, L100.0100, L501.9985, L500.4050 #### [facility] [address] [facility] [place], [address] MCH (RBC) [Entitic mass] 27.4 pg Normal 27.0-32.0 [facility] Comment on above: Performed By: #### L 501.9520, L509.8000, L900.0098, L3890.6005, BTS, L3890.6100, L506.0400, L3890.6300, L801.1541, L509.4005, L100.0100, L501.9985, L500.4050 #### [facility] [address] [facility] [place], [address] MCHC (RBC) [Mass/Vol] 31.9 g/dL Low 32-36 [facility] Comment on above: Performed By: #### L 501.9520, L509.8000, L900.0098, L3890.6005, BTS, L3890.6100, L506.0400, L3890.6300, L801.1541, L509.4005, L100.0100, L501.9985, L500.4050 #### [facility] [address] [place], [address] MCV (RBC) [Entitic vol] 86.0 fL Normal 81-99 [facility] Comment on above: Performed By: #### L 501.9520, L509.8000, L900.0098, L3890.6005, BTS, L3890.6100, L506.0400, L3890.6300, L801.1541, L509.4005, L100.0100, L501.9985, L500.4050 #### [facility] [address] [place], [address] Monocytes/100 WBC (Bld) 5.8 % Normal 0-10 [facility] Comment on above: Performed By: #### L 501.9520, L509.8000, L900.0098, L3890.6005, BTS, L3890.6100, L506.0400, L3890.6300, L801.1541, L509.4005, L100.0100, L501.9985, L500.4050 #### [facility] [address] [place], [address] Neutrophils/100 WBC (Bld) 63.7 % Normal 47-70 [facility] Comment on above: Performed By: #### L 501.9520, L509.8000, L900.0098, L3890.6005, BTS, L3890.6100, L506.0400, L3890.6300, L801.1541, L509.4005, L100.0100, L501.9985, L500.4050 #### [facility] [address] [place], [address] Nucleated RBC (Bld) [#/Vol] 0 10*3/uL Normal 0-5 [facility] Comment on above: Performed By: #### L 501.9520, L509.8000, L900.0098, L3890.6005, BTS, L3890.6100, L506.0400, L3890.6300, L801.1541, L509.4005, L100.0100, L501.9985, L500.4050 #### [facility] [address] [place], [address] Platelet mean volume (Bld) [Entitic vol] 10.2 fL Normal 6.2-12.0 [facility] Comment on above: Performed By: #### L 501.9520, L509.8000, L900.0098, L3890.6005, BTS, L3890.6100, L506.0400, L3890.6300, L801.1541, L509.4005, L100.0100, L501.9985, L500.4050 #### [facility] [address] [place], [address] Platelets (Bld) [#/Vol] 270 10*3/uL Normal 150-450 [facility] Comment on above: Performed By: #### L 501.9520, L509.8000, L900.0098, L3890.6005, BTS, L3890.6100, L506.0400, L3890.6300, L801.1541, L509.4005, L100.0100, L501.9985, L500.4050 #### [facility] [address] [place], [address] RBC (Bld) [#/Vol] 4.63 10*6/uL Normal 4.2-5.4 [facility] Comment on above: Performed By: #### L 501.9520, L509.8000, L900.0098, L3890.6005, BTS, L3890.6100, L506.0400, L3890.6300, L801.1541, L509.4005, L100.0100, L501.9985, L500.4050 #### [facility] [address] [place], [address] (336) RDW SD 49.0 fl High 35.1-43.9 [facility] Comment on above: Performed By: #### L 501.9520, L509.8000, L900.0098, L3890.6005, BTS, L3890.6100, L506.0400, L3890.6300, L801.1541, L509.4005, L100.0100, L501.9985, L500.4050 #### [facility] [address] [place], [address] (962) WBC (Bld) [#/Vol] 11.5 10*3/uL High 4.4-11.0 [facility] Comment on above: Performed By: #### L 501.9520, L509.8000, L900.0098, L3890.6005, BTS, L3890.6100, L506.0400, L3890.6300, L801.1541, L509.4005, L100.0100, L501.9985, L500.4050 #### [facility] [address] [place], [place], [id number] (136) Carbon dioxide measurementOr dered By: Tenisha Reyna on 03-26-2024 CO2 [Moles/Vol] 27.0 mmol/L 21.0-32.0 [facility] Chloride measurementOrdered By: Tenisha Reyna on 03-26-2024 Chloride [Moles/Vol] 105 mmol/L 98-107 [facility] Comprehensive Metabolic Prof ilon 03-26-2024 Albumin [Mass/Vol] 3.0 g/dL Low 3.2-5.0 [facility] Comment on above: Order Comment: [id number] 8 Performed By: #### L 501.9520, L509.8000, L900.0098, L3890.6005, BTS, L3890.6100, L506.0400, L3890.6300, L801.1541, L509.4005, L100.0100, L501.9985, L500.4050 #### [facility] [address] [place], [place], [id number] Albumin/Globulin [Mass ratio] 0.8 {ratio} Low 0.9-2.4 [facility] Comment on above: Order Comment: [id number] 8 Performed By: #### L 501.9520, L509.8000, L900.0098, L3890.6005, BTS, L3890.6100, L506.0400, L3890.6300, L801.1541, L509.4005, L100.0100, L501.9985, L500.4050 #### [facility] [address] [place], [place], [id number] ALK P 81 U/L Normal 45-117 [facility] Comment on above: Order Comment: [id number] 8 Performed By: #### L 501.9520, L509.8000, L900.0098, L3890.6005, BTS, L3890.6100, L506.0400, L3890.6300, L801.1541, L509.4005, L100.0100, L501.9985, L500.4050 #### [facility] [address] [place], [place], [id number] ALT [Catalytic activity/Vol] 16 U/L Normal 13-56 [facility] Comment on above: Order Comment: [id number] 8 Performed By: #### L 501.9520, L509.8000, L900.0098, L3890.6005, BTS, L3890.6100, L506.0400, L3890.6300, L801.1541, L509.4005, L100.0100, L501.9985, L500.4050 #### [facility] [address] [place], [place], [id number] AST [Catalytic activity/Vol] 10 U/L Low 15-37 [facility] Comment on above: Order Comment: [id number] 8 Performed By: #### L 501.9520, L509.8000, L900.0098, L3890.6005, BTS, L3890.6100, L506.0400, L3890.6300, L801.1541, L509.4005, L100.0100, L501.9985, L500.4050 #### [facility] [address] [place], [place], [address] Bilirubin [Mass/Vol] 0.30 mg/dL Normal 0.20-1.00 [facility] Comment on above: Order Comment: [id number] 8 Result Comment: For patients on eltrombopag therapy, use of Dimension Emerson TBIL is not recommended. Performed By: #### L 501.9520, L509.8000, L900.0098, L3890.6005, BTS, L3890.6100, L506.0400, L3890.6300, L801.1541, L509.4005, L100.0100, L501.9985, L500.4050 #### [facility] [address] [place], [place], [id number] BUN/CRE 17.0 RATIO Normal 10-20 [facility] Comment on above: Order Comment: [id number] 8 Performed By: #### L 501.9520, L509.8000, L900.0098, L3890.6005, BTS, L3890.6100, L506.0400, L3890.6300, L801.1541, L509.4005, L100.0100, L501.9985, L500.4050 #### [facility] [address] [place], [place], [id number] (215) CA,Total 9.3 mg/dL Normal 8.5-10.1 [facility] Comment on above: Order Comment: 27899 8 Performed By: #### L 501.9520, L509.8000, L900.0098, L3890.6005, BTS, L3890.6100, L506.0400, L3890.6300, L801.1541, L509.4005, L100.0100, L501.9985, L500.4050 #### [facility] [address] [place], [place], [id number] (620) Chloride [Moles/Vol] 105 mmol/L Normal 98-107 [facility] Comment on above: Order Comment: 90310 8 Performed By: #### L 501.9520, L509.8000, L900.0098, L3890.6005, BTS, L3890.6100, L506.0400, L3890.6300, L801.1541, L509.4005, L100.0100, L501.9985, L500.4050 #### [facility] [address] [place], [place], [id number] (672) CO2 [Moles/Vol] 27.0 mmol/L Normal 21.0-32.0 [facility] Comment on above: Order Comment: [id number] 8 Performed By: #### L 501.9520, L509.8000, L900.0098, L3890.6005, BTS, L3890.6100, L506.0400, L3890.6300, L801.1541, L509.4005, L100.0100, L501.9985, L500.4050 #### [facility] [address] [place], [address] Creatinine [Mass/Vol] 0.53 mg/dL Low 0.55-1.02 [facility] Comment on above: Order Comment: [id number] 8 Result Comment: The validity of the calculated GFR GFRAA in patients over 70 years has not been determined. Clinical correlation is essential. Performed By: #### L 501.9520, L509.8000, L900.0098, L3890.6005, BTS, L3890.6100, L506.0400, L3890.6300, L801.1541, L509.4005, L100.0100, L501.9985, L500.4050 #### [facility] [address] [place], [address] EST GFR - AA 174 mL/min Normal >60 [facility] Comment on above: Order Comment: [id number] 8 Result Comment: Afri can Moroccan GFR Calc Performed By: #### L 501.9520, L509.8000, L900.0098, L3890.6005, BTS, L3890.6100, L506.0400, L3890.6300, L801.1541, L509.4005, L100.0100, L501.9985, L500.4050 #### [facility] [address] [place], [address] GAP 6 Normal 5-15 [facility] Comment on above: Order Comment: 12898 8 Performed By: #### L 501.9520, L509.8000, L900.0098, L3890.6005, BTS, L3890.6100, L506.0400, L3890.6300, L801.1541, L509.4005, L100.0100, L501.9985, L500.4050 #### [facility] [address] [place], [address] GFR/1.73 sq M.predicted among non-blacks MDRD (S/P/Bld) [Vol rate/Area] 143 mL/min/{1.73_m2} Normal >60 [facility] Comment on above: Order Comment: 62456 8 Result Comment: Non- GFR Calc Performed By: #### L 501.9520, L509.8000, L900.0098, L3890.6005, BTS, L3890.6100, L506.0400, L3890.6300, L801.1541, L509.4005, L100.0100, L501.9985, L500.4050 #### [facility] [address] [place], [address] Globulin (S) [Mass/Vol] 3.9 g/dL Normal 2.2-4.2 [facility] Comment on above: Order Comment: 09490 8 Performed By: #### L 501.9520, L509.8000, L900.0098, L3890.6005, BTS, L3890.6100, L506.0400, L3890.6300, L801.1541, L509.4005, L100.0100, L501.9985, L500.4050 #### [facility] [address] [place], [address] Glucose [Mass/Vol] 81 mg/dL Normal 74-106 [facility] Comment on above: Order Comment: [id number] 8 Performed By: #### L 501.9520, L509.8000, L900.0098, L3890.6005, BTS, L3890.6100, L506.0400, L3890.6300, L801.1541, L509.4005, L100.0100, L501.9985, L500.4050 #### [facility] [address] [place], [address] Potassium [Moles/Vol] 3.7 mmol/L Normal 3.5-5.1 [facility] Comment on above: Order Comment: [id number] 8 Performed By: #### L 501.9520, L509.8000, L900.0098, L3890.6005, BTS, L3890.6100, L506.0400, L3890.6300, L801.1541, L509.4005, L100.0100, L501.9985, L500.4050 #### [facility] [address] [place], [place], [id number] Sodium [Moles/Vol] 138 mmol/L Normal 136-145 [facility] Comment on above: Order Comment: 30950 8 Performed By: #### L 501.9520, L509.8000, L900.0098, L3890.6005, BTS, L3890.6100, L506.0400, L3890.6300, L801.1541, L509.4005, L100.0100, L501.9985, L500.4050 #### [facility] [address] [facility] [place], [place], [id number] T PROT 6.9 g/dL Normal 6.4-8.2 [facility] Comment on above: Order Comment: 21596 8 Performed By: #### L 501.9520, L509.8000, L900.0098, L3890.6005, BTS, L3890.6100, L506.0400, L3890.6300, L801.1541, L509.4005, L100.0100, L501.9985, L500.4050 #### [facility] [address] [place], [place], [address] Urea nitrogen [Mass/Vol] 9 mg/dL Normal 7-18 [facility] Comment on above: Order Comment: [id number] 8 Performed By: #### L 501.9520, L509.8000, L900.0098, L3890.6005, BTS, L3890.6100, L506.0400, L3890.6300, L801.1541, L509.4005, L100.0100, L501.9985, L500.4050 #### [facility] [address] [place], [place], [id number] Direct serum free thyroxine (FT4) measurementOrdered By: Tenisha Reyna on 03-26-2024 Free T4 [Mass/Vol] 0.95 ng/dL 0.76-1.46 [facility] Eosinophil percentageOrdered By: Tenisha Reyna on 03-26-2024 Eosinophils/100 WBC (Bld) 1.7 % 0-5 [facility] Erythrocyte distribution wid th ratioOrdered By: Tenisha Reyna on 03-26-2024 Erythrocyte distribution width (RBC) [Ratio] 15.7 % High 11.6-14.6 [facility] Erythrocyte distribution wid th standard deviationOrdered By: Tenisha Reyna on 03-26-2024 Erythrocyte distribution width (RBC) [Entitic vol] 49.0 fL High 35.1-43.9 [facility] Estimated glomerular filtrat ion rate (GFR) AmericanOrdered By: Tenisha Reyna on 03-26-2024 Estimated GFR (MDRD) Amer 174 mL/min >60 [facility] Comment on above: GFR Calc Glomerular filtration rate ( GFR) estimationOrdered By: Tenisha Reyna on 03-26-2024 Estimated GFR (MDRD) Non-Af Amer 143 mL/min >60 [facility] Comment on above: Non- GFR Calc Glucose measurementOrdered B y: Tenisha Reyna on 03-26-2024 Glucose [Mass/Vol] 81 mg/dL 74-106 [facility] HIV - WCHon 03-26-2024 HIV Non-Reactive Normal Nonreactive [facility] Comment on above: Order Comment: Reaso n for Exam: Performed By: #### L 501.9520, L509.8000, L900.0098, L3890.6005, BTS, L3890.6100, L506.0400, L3890.6300, L801.1541, L509.4005, L100.0100, L501.9985, L500.4050 ####[facility] [address] [place], [place], [address] HIV 1+2 Ab+HIV1 p24 Ag IA Ql Ordered By: Tenisha Reyna on 03-26-2024 HIV (1&2) Antibody Non-Reactive Nonreactive [facility] Hematocrit Auto (Bld) [Volum e fraction]Ordered By: Tenisha Reyna on 03-26-2024 Hematocrit (Bld) [Volume fraction] 39.8 % 37-47 [facility] Hemoglobin A1con 03-26-2024 HbA1c (Bld) [Mass fraction] 5.0 % Normal 3.8-5.6 [facility] Comment on above: Result Comment: Norm al < 5.7 % Prediabetic 5.7 - 6.4 % Diabetic >or= 6.5 % Please note range changes. Performed By: #### L 501.9520, L509.8000, L900.0098, L3890.6005, BTS, L3890.6100, L506.0400, L3890.6300, L801.1541, L509.4005, L100.0100, L501.9985, L500.4050 #### [facility] [address] [place], [address] Hemoglobin A1c percentageOrd ered By: Tenisha Reyna on 03-26-2024 HbA1c (Bld) [Mass fraction] 5.0 % 3.8-5.6 [facility] Comment on above: Normal < 5.7 % Predi abetic 5.7 - 6.4 % Diabetic >or= 6.5 % Please note range changes. Hemoglobin measurementOrdere d By: Tenisha Reyna on 03-26-2024 Hemoglobin (Bld) [Mass/Vol] 12.7 g/dL 12.0-15.0 [facility] Hepatitis B Surface Antigeno n 03-26-2024 HEP B Surf Ag Non-Reactive Normal Nonreactive [facility] Comment on above: Order Comment: Reaso n for Exam: Performed By: #### L 501.9520, L509.8000, L900.0098, L3890.6005, BTS, L3890.6100, L506.0400, L3890.6300, L801.1541, L509.4005, L100.0100, L501.9985, L500.4050 ####[facility] [address] [facility] [place], [place], [id number] Hepatitis B surface antigen detectionOrdered By: Tenisha Reyna on 03-26-2024 Hepatitis B Surface Antigen Non-Reactive Nonreactive [facility] Hepatitis C Antibodyon 03-26 Hepatitis C AB Non-Reactive Normal Nonreactive [facility] Comment on above: Order Comment: Reaso n for Exam: Result Comment: Non Reactive: < 0.8 Equivocal: >/= 0.8 to < 1.0 Reactive: >/= 1.0 The [facility] requires that a reactive/equivocal HCV antibody result be sent out for confirmation. HCV Quant by PCR testing. Performed By: #### L 501.9520, L509.8000, L900.0098, L3890.6005, BTS, L3890.6100, L506.0400, L3890.6300, L801.1541, L509.4005, L100.0100, L501.9985, L500.4050 ####[facility] [address] [facility] [place], [place], [id number] Hepatitis C virus antibody a ssayOrdered By: Tenisha Reyna on 03-26-2024 Hepatitis C Antibody Non-Reactive Nonreactive [facility] Comment on above: Non Reactive: < 0.8 Equivocal: >/= 0.8 to < 1.0 Reactive: >/= 1.0The CDC requires that a reactive/equivocal HCV antibody result be sent out for confirmation. HCV Quant by PCR testing. Immature granulocytes/100 WB C Auto (Bld)Ordered By: Tenisha Reyna on 03-26-2024 Immature granulocytes/100 WBC (Bld) 0.300 % 0.0-0.9 [facility] Comment on above: IG% - Immature Granu locytes (promyelocytes, myelocytes and metamyelocytes) > 1% indicates that a LEFT SHIFT is Present. L509.8000on 03-26-2024 Syphilis Abs Non-Reactive Normal [facility] Comment on above: Order Comment: Reaso n for Exam: Performed By: #### L 501.9520, L509.8000, L900.0098, L3890.6005, BTS, L3890.6100, L506.0400, L3890.6300, L801.1541, L509.4005, L100.0100, L501.9985, L500.4050 ####[facility] [address] [place], [address] Laboratory - Chemistry and C hemistry - challengeOrdered By: Tenisha Reyna on 03-26-2024 AST [Catalytic activity/Vol] 10 U/L Low 15-37 [facility] - Chemistry and C hemistry - challengeon 03-26-2024 Glucose Ql (U) Negative [facility] - Urinalysison Protein Ql (U) Negative [facility] Lymphocytes Auto (Unsp spec) [#/Vol]Ordered By: Tenisha Reyna on 03-26-2024 Lymphocytes (Bld) [#/Vol] 3.23 10*3/uL 0.83-4.51 [facility] Lymphocytes/100 WBC Auto (Un sp spec)Ordered By: Tenisha Reyna on 03-26-2024 Lymphocytes/100 WBC (Bld) 28.1 % 19-41 [facility] MCV (mean corpuscular volume ) determinationOrdered By: Tenisha Reyna on 03-26-2024 MCV (RBC) [Entitic vol] 86.0 fL 81-99 [facility] Mean corpuscular hemoglobin (MCH) determinationOrdered By: Tenisha Reyna on 03-26-2024 MCH (RBC) [Entitic mass] 27.4 pg 27.0-32.0 [facility] Mean corpuscular hemoglobin concentration (MCHC) determinationOrdered By: Tenisha Reyna on 03-26-2024 MCHC (RBC) [Mass/Vol] 31.9 g/dL Low 32-36 [facility] Mean platelet volume determi nationOrdered By: Tenisha Reyna on 03-26-2024 Platelet mean volume (Bld) [Entitic vol] 10.2 fL 6.2-12.0 [facility] Miscellaneous procedureOrder ed By: Tenisha Reyna on 03-26-2024 Miscellaneous Test See comment [facility] Comment on above: TEST RESULTS LIMITST hyrotropin Receptor Ab,Serum <1.10 IU/L 0.00-1.75 TESTING PERFORMED AT [facility]. ORIGINAL REPORT ON FILE IN LAB CONTAINS ADDITIONAL TEST SITE INFORMATION. Miscellaneous Test Comment SEE SCANNED REPORT [facility] Monocyte percentageOrdered B y: Tenisha Reyna on 03-26-2024 Monocytes/100 WBC (Bld) 5.8 % 0-10 [facility] NATERAon 03-26-2024 NATURA SEE SCANNED REPORT Normal [facility] Comment on above: Order Comment: Comme nts: NIPT w/Gender Performed By: #### L 501.9520, L509.8000, L900.0098, L3890.6005, BTS, L3890.6100, L506.0400, L3890.6300, L801.1541, L509.4005, L100.0100, L501.9985, L500.4050 #### [facility] [address] [place], [place], [id number] Neutrophil percentageOrdered By: Tenisha Reyna on 03-26-2024 Neutrophils/100 WBC (Bld) 63.7 % 47-70 [facility] Nucleated red blood cell per centageOrdered By: Tenisha Reyna on 03-26-2024 Nucleated RBC/100 WBC (Bld) [Ratio] 0 % 0-5 [facility] Family Therapist Office Visit Reporton 03-26-2024 Family Therapist Office Visit Report [facility]'[address], [address] [place] [address] OFFICE VISIT Date of Service: 03/26/24 MR#: [id number] Acct: [id number] Name: ANAI WEBBER Rep #: [id number] : 1995 Provider: Dr. 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 Date Name GA/Weeks Outcome Route Bth Weight Gen Labor Lgth Anesthesia Del Locatn Provider FOB 06/09/22 Finlee 37 live - full term 7#[address] [facility] rolo Alvarado Delivery Date: 06/09/22 Last [...] -???-???-???-???-???-??? -???-???-???-???- (more content not included)... Normal [facility] Platelet countOrdered By: Gen Reyna on 03-26-2024 Platelets (Bld) [#/Vol] 270 10*3/uL 150-450 [facility] Potassium measurementOrdered By: Tenisha Reyna on 03-26-2024 Potassium [Moles/Vol] 3.7 mmol/L 3.5-5.1 [facility] RBC Auto (Bld) [#/Vol]Ordere d By: Tenisha Reyna on 03-26-2024 RBC (Bld) [#/Vol] 4.63 10*6/uL 4.2-5.4 [facility] Rubella IgGon 03-26-2024 Rubella IgG Equiv Normal Nonreactive [facility] Comment on above: Order Comment: Reaso n for Exam: Result Comment: Anti body Results Interpretation of Immune Status Non Reactive Presumed Non-Immune Equivocal Equivocal Reactive Presumed Immune Performed By: #### L 501.9520, L509.8000, L900.0098, L3890.6005, BTS, L3890.6100, L506.0400, L3890.6300, L801.1541, L509.4005, L100.0100, L501.9985, L500.4050 ####[facility] [address] [place], [place], [id number] Rubella immune status IgGOrd ered By: Tenisha Reyna on 03-26-2024 Rubella IgG Antibody Equiv Nonreactive [facility] Comment on above: Antibody Results Int erpretation of Immune Status Non Reactive Presumed Non-Immune Equivocal Equivocal Reactive Presumed Immune Serum anion gap measurementO rdered By: Tenisha Reyna on 03-26-2024 Anion gap [Moles/Vol] 6 mmol/L 5-15 [facility] Serum globulin measurementOr dered By: Tenisha Reyna on 03-26-2024 Globulin (S) [Mass/Vol] 3.9 g/dL 2.2-4.2 [facility] Serum or plasma alanine aceves otransferase (ALT) measurementOrdered By: Tenisha Reyna on 03-26-2024 ALT [Catalytic activity/Vol] 16 U/L 13-56 [facility] Serum or plasma albumin andi urement (mass/volume)Ordered By: Tenisha Reyna on 03-26-2024 Albumin [Mass/Vol] 3.0 g/dL Low 3.2-5.0 [facility] Serum or plasma alkaline osvaldo sphatase measurementOrdered By: Tenisha Reyna on 03-26-2024 ALP [Catalytic activity/Vol] 81 U/L 45-117 [facility] Serum or plasma calcium andi urement (mass/volume)Ordered By: Tenisha Reyna on 03-26-2024 Calcium [Mass/Vol] 9.3 mg/dL 8.5-10.1 [facility] Serum or plasma creatinine m easurement (mass/volume)Ordered By: Tenisha Reyna on 03-26-2024 Creatinine [Mass/Vol] 0.53 mg/dL Low 0.55-1.02 [facility] Comment on above: The validity of the calculated GFR & GFRAA in patients over 70 years has not been determined. Clinical correlation is essential. Serum or plasma urea nitroge n measurement (mass/volume)Ordered By: Tenisha Reyna on 03-26-2024 Urea nitrogen [Mass/Vol] 9 mg/dL 7-18 [facility] Sodium levelOrdered By: Camila Reyna on 03-26-2024 Sodium [Moles/Vol] 138 mmol/L 136-145 [facility] T4 Free Directon 03-26-2024 T4 FREE DIRECT 0.95 ng/dL Normal 0.76-1.46 [facility] Comment on above: Order Comment: [id number] Performed By: #### L 501.9520, L509.8000, L900.0098, L3890.6005, BTS, L3890.6100, L506.0400, L3890.6300, L801.1541, L509.4005, L100.0100, L501.9985, L500.4050 ####[facility] [address] [place], [place], [id number] TSH QnOrdered By: Tenisha paris on 03-26-2024 Thyroid Stimulating Hormone (TSH) 0.648 uIU/mL 0.358-3.740 [facility] Thyroid Stim Hormone (TSH)on 03-26-2024 TSH 0.648 uIU/mL Normal 0.358-3.740 [facility] Comment on above: Order Comment: [id number] Performed By: #### L 501.9520, L509.8000, L900.0098, L3890.6005, BTS, L3890.6100, L506.0400, L3890.6300, L801.1541, L509.4005, L100.0100, L501.9985, L500.4050 #### [facility] [address] [place], [place], [id number] Total proteinOrdered By: Des Reyna on 03-26-2024 Protein [Mass/Vol] 6.9 g/dL 6.4-8.2 [facility] Treponema sp Ab Ql (S)Ordere d By: Tenisha Reyna on 03-26-2024 Syphilis Total Antibody Non-Reactive [facility] Type AND Screenon 03-26-2024 Ab SCREEN GEL Negative Normal [facility] Comment on above: Order Comment: PN Performed By: #### L 501.9520, L509.8000, L900.0098, L3890.6005, BTS, L3890.6100, L506.0400, L3890.6300, L801.1541, L509.4005, L100.0100, L501.9985, L500.4050 ####[facility] [address] [place], [place], [id number] ABO and Rh group Nom (Bld) Blood group O Rh(D) positive Normal [facility] Comment on above: Order Comment: PN Performed By: #### L 501.9520, L509.8000, L900.0098, L3890.6005, BTS, L3890.6100, L506.0400, L3890.6300, L801.1541, L509.4005, L100.0100, L501.9985, L500.4050 ####[facility] [address] [place], [place], [id number] White blood cell (WBC) count Ordered By: Tenisha Reyna on 03-26-2024 WBC (Bld) [#/Vol] 11.5 10*3/uL High 4.4-11.0 [facility] SARS-COV-2 RAPID AG (WIC)on 03-10-2024 SARS-CoV-2 (COVID-19) RNA JADYN+probe Ql (Unsp spec) Not detected Normal NOT DETECTED [facility] Comment on above: Result Comment: Nega tive [...] By: #### C COVAG ####Testing performed at [place] [id number] NARRATIVE This test was perfor med using lateral flow immunoassay. This test does not differentiate between SARS-CoV and SARS-CoV2. Normal [facility] Comment on above: Performed By: #### C COVAG ####Testing performed at [address] [address] SARS-COV-2 RAPID ANTIGEN (CL INIC ONLY)on 03-10-2024 SARS-CoV-2 (COVID-19) RNA JADYN+probe Ql (Unsp spec) This test was performed using lateral flow immunoassay. This test does not differentiate between SARS-CoV and SARS-CoV2. [facility] SARS-CoV-2 (COVID-19) RNA NA A+probe Ql (Unsp spec)on 03-10-2024 SARS-CoV-2 (COVID-19) Ag IA.rapid Ql (Resp) Not detected NOT DETECTED [facility] Comment on above: Negative results [...] clinical signs and symptoms consistent with COVID-19. [facility] Chlamydia/GC JADYN aptimaon CHLAMY,NUC ACID Negative Normal Negative [facility] Comment on above: Performed By: #### M 100.1999, M100.3200 #### [facility] [address] [place], [place], [id number] GC BY NUC ACID Negative Normal Negative [facility] Comment on above: Result Comment: Perf ormed at: =G - [facility] [id number] Helper/Driver: Lizz Franz MD, Phone: [phone] Performed By: #### M 100.1999, M100.3200 #### [facility] [address] [place], [address] Urine Cultureon 02-21-2024 URC Below infection leve l. Mixed Gram Positive Organisms [place] Count 1000-10,000 MIXC Mixed contaminants. Submit a new specimen if indicated. Normal [facility] Comment on above: Performed By: #### M 100.1999, M100.3200 #### [facility] [address] [place], [address] Family Therapist Office Visit Reporton 02-18-2024 Family Therapist Office Visit Report [address], [address] [place] [address] OFFICE VISIT Date of Service: 02/18/24 MR#: [id number] Acct: [id number] Name: ANAI WEBBER Rep #: [id number] : 1995 Provider: DEAN Massey ams Age/Sex: 28/F Location: [facility] Status: Signed Intake Vital Signs 01/21/24 15:31 02/18/24 13:06 Height 5 ft 4 in 5 ft 4 in Weight: 267 lb 2 oz BMI 45.8 BP 121/82 H Intake Visit Reasons: NOB LMP 12/21 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 Required: No Is patient in pain?: No [...] No current occupational status: employed current occupation: [employer] current occupational exposures/hazards: No pets and animals: [...] 3-4 times per week duration: 30-45 minutes/day katherine/hoahaoism: None seatbelt use: always do you feel safe at home: Yes additional 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 Date Name GA/Weeks Outcome Route Bth Weight Gen Labor Lgth Anesthesia Del Locatn Provider FOB 06/09/22 Finlee 37 live - full term 7#[address] [facility] rolo Alvarado Delivery Date: 06/09/22 Last [...] Date -???-? (more content not included)... Normal [facility] Protein+Creatinine Ratio,Uri neon 02-18-2024 PROT:CRE RATIO 200 mg/g CRE Normal 0-200 [facility] Comment on above: Performed By: #### M , M100.3200 #### [facility] [address] [place], [address] Protein (U) [Mass/Vol] 49.7 mg/dL High <11.9 [facility] Comment on above: Performed By: #### M , M100.3200 #### [facility] [address] [place], [address] UR CREAT 249.00 mg/dL Normal NO RANGE EST. [facility] Comment on above: Performed By: #### M , M100.3200 #### [facility] [address] [place], [address] C REACTIVE PROTEINon 024 CRP [Mass/Vol] 8.3 mg/L 0 - 10 MG/L [facility] CRP [Mass/Vol] 8.3 mg/L Normal 0-10 [facility] Comment on above: Performed By: #### U MAC, UMIC #### Testing performed at [address] [address] CBCon 10-14-2023 Band form neutrophils/100 WBC (Bld) 2 % Normal 0.0-2.0 [facility] Comment on above: Performed By: #### U MAC, UMIC #### Testing performed at [address] [address] DTYPE MANUAL DIFF Normal [facility] Comment on above: Performed By: #### U MAC, UMIC #### Testing performed at [address] [address] Lymphocytes/100 WBC (Bld) 19 % Low 20.0-55.0 [facility] Comment on above: Performed By: #### U MAC, UMIC #### Testing performed at [address] [address] Monocytes/100 WBC (Bld) 5 % Normal 0.0-10.0 [facility] Comment on above: Performed By: #### U MAC, UMIC #### Testing performed at [address] [address] Neutrophils/100 WBC (Bld) 74 % Normal 37.0-75.0 [facility] Comment on above: Performed By: #### U MAC, UMIC #### Testing performed at [address] [address] PLATELET COMMENT ADEQUATE Normal [facility] Comment on above: Performed By: #### U MAC, UMIC #### Testing performed at [address] [address] RBC morphology finding Nom (Bld) NORMAL Normal [facility] Comment on above: Performed By: #### U MAC, UMIC #### Testing performed at [address] [address] Erythrocyte distribution width (RBC) [Ratio] 14.7 % High 11.5-14.5 [facility] Comment on above: Performed By: #### U MAC, UMIC #### Testing performed at [address] [address] Hematocrit (Bld) [Volume fraction] 34.7 % Low 36.0-48.0 [facility] Comment on above: Performed By: #### U MAC, UMIC #### Testing performed at [address] [address] Hemoglobin (Bld) [Mass/Vol] 11.8 g/dL Low 12.0-16.0 [facility] Comment on above: Performed By: #### U MAC, UMIC #### Testing performed at [address] [address] MCH (RBC) [Entitic mass] 28.2 pg Normal 26.0-35.0 [facility] Comment on above: Performed By: #### U ERIC, BUSHRAIC #### Testing performed at [address] [address] MCHC (RBC) [Mass/Vol] 33.8 g/dL Normal 27.0-37.0 [facility] Comment on above: Performed By: #### U ERIC, UMIC #### Testing performed at [address] [address] MCV (RBC) [Entitic vol] 83.2 fL Normal 80.0-100.0 [facility] Comment on above: Performed By: #### U ERIC, UMIC #### Testing performed at [address] [address] Platelet mean volume (Bld) [Entitic vol] 7.7 fL Normal 7.4-11.0 [facility] Comment on above: Performed By: #### U ERIC, UMIC #### Testing performed at [address] [address] Platelets (Bld) [#/Vol] 335 10*3/uL Normal 130-400 [facility] Comment on above: Performed By: #### U ERIC, UMIC #### Testing performed at [address] [address] RBC (Bld) [#/Vol] 4.17 10*6/uL Normal 4.0-5.4 [facility] Comment on above: Performed By: #### U ERIC, UMIC #### Testing performed at [address] [address] WBC (Bld) [#/Vol] 16.3 10*3/uL High 3.6-11.0 [facility] Comment on above: Performed By: #### U ERIC, UMIC #### Testing performed at [address] [address] CBC, EDIF, PLATELETon 2023 Differential cell count method Nom (Bld) MANUAL DIFF % [facility] Erythrocyte distribution width (RBC) [Ratio] 14.7 % High 11.5 - 14.5 % [facility] Hematocrit (Bld) [Volume fraction] 34.7 % Low 36.0 - 48.0 % [facility] Hemoglobin (Bld) [Mass/Vol] 11.8 g/dL Low [facility] Immature granulocytes/100 WBC (Bld) 2 % 0.0 - 2.0 % [facility] Interpretation and review of laboratory results Abnormal [facility] Lymphocytes/100 WBC (Bld) 19 % Low 20.0 - 55.0 % [facility] MCH (RBC) [Entitic mass] 28.2 pg 26.0 - 35.0 PG [facility] MCHC (RBC) [Mass/Vol] 33.8 g/dL [facility] MCV (RBC) [Entitic vol] 83.2 fL [facility] Monocytes/100 WBC (Bld) 5 % 0.0 - 10.0 % [facility] Morphology Dillan (Bld) [Interp] NORMAL [facility] Neutrophils/100 WBC (Bld) 74 % 37.0 - 75.0 % [facility] Platelet mean volume (Bld) [Entitic vol] 7.7 fL [facility] Platelet morphology finding Nom (Bld) ADEQUATE [facility] Platelets (Bld) [#/Vol] 335 10*3/uL 130 - 400 10*3/uL [facility] RBC (Bld) [#/Vol] 4.17 10*6/uL 4.0 - 5.4 10*6/uL [facility] WBC (Bld) [#/Vol] 16.3 10*3/uL High 3.6 - 11.0 10*3/uL [facility] ESRon 10-14-2023 ESR (Bld) [Velocity] 33 mm/h High 0-15 [facility] Comment on above: Performed By: #### E SR, MG, CREACT, ACBC, RENF, LIVR ####Testing performed at [place] [address] [place] [address] HEPATIC FUNCTION PANELon Albumin [Mass/Vol] 4.0 g/dL [facility] ALP [Catalytic activity/Vol] 63 U/L [facility] ALT [Catalytic activity/Vol] 76 U/L High NINF [facility] AST [Catalytic activity/Vol] 61 U/L High [facility] Bilirubin [Mass/Vol] 0.4 mg/dL [facility] Bilirubin.direct [Mass/Vol] 0.2 mg/dL [facility] Protein [Mass/Vol] 6.6 g/dL [facility] LACTATE, BLOODon 10-14-2023 Interpretation and review of laboratory results Abnormal [facility] Lactate [Moles/Vol] 4.5 mmol/L Critically high 0.7 - 2.0 mmol/L [facility] Comment on above: PLEASE REPEAT INITIA L CRITICAL IN 3 HOURS IF ED OR INPATIENT SEPSIS PATIENT Result called to read back by: LINDA 10/14/2023 @ 05:22 by CLEAN IN PLACES OPERATOR [facility] LACTATE,BLOODon 10-14-2023 Lactate [Moles/Vol] 4.5 mmol/L Critically high 0.7-2.0 [facility] Comment on above: Result Comment: PLEA SE REPEAT INITIAL CRITICAL IN 3 HOURS IF ED OR INPATIENT SEPSIS PATIENT Result called to read back by: LINDA 10/14/2023 @ 05:22 by CLEAN IN PLACES OPERATOR Performed By: #### U MAC, UMIC #### Testing performed at [address] [address] LIVER PANELon 10-14-2023 Albumin [Mass/Vol] 4.0 g/dL Normal 2.9-5.3 [facility] Comment on above: Performed By: #### E SR, MG, CREACT, ACBC, RENF, LIVR ####Testing performed at [address] [address] ALP [Catalytic activity/Vol] 63 U/L Normal 38-126 [facility] Comment on above: Performed By: #### E SR, MG, CREACT, ACBC, RENF, LIVR ####Testing performed at [address] [address] ALT [Catalytic activity/Vol] 76 U/L High <35 [facility] Comment on above: Performed By: #### E SR, MG, CREACT, ACBC, RENF, LIVR ####Testing performed at [address] [address] AST [Catalytic activity/Vol] 61 U/L High 14-36 [facility] Comment on above: Performed By: #### E SR, MG, CREACT, ACBC, RENF, LIVR ####Testing performed at [address] [address] Bilirubin [Mass/Vol] 0.4 mg/dL Normal 0.2-1.3 [facility] Comment on above: Performed By: #### E SR, MG, CREACT, ACBC, RENF, LIVR ####Testing performed at [address] [address] Bilirubin.indirect [Mass/Vol] 0.2 mg/dL Normal 0.0-0.4 [facility] Comment on above: Performed By: #### E SR, MG, CREACT, ACBC, RENF, LIVR ####[place] [address] Protein [Mass/Vol] 6.6 g/dL Normal 6.3-8.2 [facility] Comment on above: Performed By: #### E SR, MG, CREACT, ACBC, RENF, LIVR ####Testing performed at [address] [address] MAGNESIUMon 10-14-2023 Magnesium [Mass/Vol] 2.5 mg/dL High [facility] Magnesium [Mass/Vol] 2.5 mg/dL High 1.6-2.3 [facility] Comment on above: Performed By: #### U MAC, UMIC #### Testing performed at [address] [address] No Panel Informationon 10-13 Interpretation and review of laboratory results Abnormal [facility] RENAL FUNCTION PANELon 10-13 Albumin [Mass/Vol] 4.0 G/dl 3.5 - 5.0 G/dl [facility] Calcium [Mass/Vol] 8.5 mg/dL [facility] Chloride [Moles/Vol] 102 mmol/L [facility] Comment on above: Please note: Triglyc eride levels of 600mg/dL or higher may positively bias chloride results by approximately 2.1 mmol CO2 [Moles/Vol] 26 mmol/L [facility] Creatinine [Mass/Vol] 0.60 mg/dL Low [facility] GFR COMMENT Average GFR for 30-3 9 years old = 107. [facility] Comment on above: Chronic Kidney disea se, GFR = <60. Kidney failure, GFR = <15. The GFR estimate is not adjusted for extreme body surface area or acute process, nor has it been validated for women or ethnic groups other than and . GFR/1.73 sq M.predicted among blacks MDRD (S/P/Bld) [Vol rate/Area] 151 mL/min/{1.73_m2} ml/min/1.73s q.m [facility] GFR/1.73 sq M.predicted among non-blacks MDRD (S/P/Bld) [Vol rate/Area] 125 mL/min/{1.73_m2} ml/min/1.73s q.m [facility] Glucose post fast [Mass/Vol] 137 mg/dL High [facility] Comment on above: NORMAL <100 mg/dL PREDIABETES 101-126 mg/dL DIABETES 126 mg/dL or higher Interpretation and review of laboratory results Abnormal [facility] Phosphate [Mass/Vol] 3.2 mg/dL [facility] Potassium [Moles/Vol] 3.6 mmol/L [facility] Sodium [Moles/Vol] 136 mmol/L Low [facility] Urea nitrogen [Mass/Vol] 16 mg/dL [facility] RENAL PANEL,FASTINGon 2023 ALBUMIN 4.0 G/dl Normal 3.5-5.0 [facility] Comment on above: Performed By: #### U MAC, IC #### Testing performed at [address] [address] Calcium [Mass/Vol] 8.5 mg/dL Normal 8.4-10.2 [facility] Comment on above: Performed By: #### U MAC, UMIC #### Testing performed at [address] [address] Chloride [Moles/Vol] 102 mmol/L Normal 98-107 [facility] Comment on above: Result Comment: Plea se note: Triglyceride levels of 600mg/dL or higher may positively bias chloride results by approximately 2.1 mmol Performed By: #### U MAC, UMIC #### Testing performed at [place] [id number] CO2 [Moles/Vol] 26 mmol/L Normal 22-30 [facility] Comment on above: Performed By: #### U MAC, UMIC #### Testing performed at [place] [id number] Creatinine [Mass/Vol] 0.60 mg/dL Low 0.70-1.20 [facility] Comment on above: Performed By: #### U MAC, UMIC #### Testing performed at [place] [id number] EST. GFR, 151 ml/min/1.73sq.m [facility] Comment on above: Performed By: #### U MAC, UMIC #### Testing performed at [place] [id number] EST. GFR,Non 125 ml/min/1.73sq.m [facility] Comment on above: Performed By: #### U MAC, UMIC #### [place] [address] GFR Information Average GFR for 30-3 9 years old = 107. Normal [facility] Comment on above: Result Comment: Academic Tutor bentley Kidney disease, GFR = <60. Kidney failure, GFR = <15. The GFR estimate is not adjusted for extreme body surface area or acute process, nor has it been validated for women or ethnic groups other than and . Performed By: #### U MAC, UMIC #### Testing performed at [place] [id number] Glucose [Mass/Vol] 137 mg/dL High 70-100 [facility] Comment on above: Result Comment: NORMAL <100 mg/dL PREDIABETES 101-126 mg/dL DIABETES 126 mg/dL or higher Performed By: #### U MAC, UMIC #### Testing performed at [place] [id number] PHOSPHOROUS 3.2 MG/DL Normal 2.5-4.5 [facility] Comment on above: Performed By: #### U MAC, UMIC #### Testing performed at [address] [address] Potassium [Moles/Vol] 3.6 mmol/L Normal 3.5-5.1 [facility] Comment on above: Performed By: #### U MAC, UMIC #### Testing performed at [address] [address] Sodium [Moles/Vol] 136 mmol/L Low 137-145 [facility] Comment on above: Performed By: #### U MAC, UMIC #### Testing performed at [address] [address] Urea nitrogen [Mass/Vol] 16 mg/dL Normal 7-20 [facility] Comment on above: Performed By: #### U MAC, UMIC #### Testing performed at [address] [address] SEDIMENTATION RATE, AUTOMATE Don 10-14-2023 ESR (Bld) [Velocity] 33 mm/h High [facility] Interpretation and review of laboratory results Abnormal [facility] ARTERIAL BLOOD GASon 024 Arterial patency Wrist artery --pre arterial puncture Positive [facility] Base excess Calc (BldV) [Moles/Vol] 2.2 mmol/L High [facility] Carboxyhemoglobin (Bld) [Mass fraction] 1.2 % [facility] [employer] CO2 (Bld) [Partial pressure] 30 mm[Hg] Low [facility] Diagnosis Narrative SOB [facility] HCO3 (Bld) [Moles/Vol] 24.5 mmol/L [facility] Hemoglobin (Bld) [Mass/Vol] 11.6 g/dL [facility] Interpretation and review of laboratory results Abnormal [facility] Methemoglobin (BldC) [Mass fraction] 0.9 % [facility] NOTE ROOM AIR [facility] O2 Device ROOM AIR [facility] Oxygen (Bld) [Partial pressure] 65 mm[Hg] Low [facility] Oxyhemoglobin (Bld) [Mass fraction] 93.1 % [facility] PATIENT PO2 SETTINGS 21 [facility] [employer] [facility] pH (Bld) 7.52 [pH] High 7.350 - 7.450 [facility] Specimen site Narrative RIGHT RADIAL [facility] JOSUE'S TEST Positive [facility] Comment on above: Performed By: #### C OVID #### Testing performed at [address] [address] BASE EXCESS 2.2 mEq/L High 0-2 [facility] Comment on above: Performed By: #### C OVID #### Testing performed at [address] [address] cHCO3 (P,ST)C 24.5 mEq/L Normal 22-26 [facility] Comment on above: Performed By: #### C OVID #### Testing performed at [address] [address] ctHb 11.6 g/dl [facility] Comment on above: Performed By: #### C OVID #### Testing performed at [address] [address] FCOHb 1.2 % [facility] Comment on above: Performed By: #### C OVID #### Testing performed at [address] [address] FMetHb 0.9 % [facility] Comment on above: Performed By: #### C OVID #### Testing performed at [address] [address] FO2Hb 93.1 % [facility] Comment on above: Performed By: #### C OVID #### Testing performed at [address] [place] [address] NOTES: ROOM AIR [facility] Comment on above: Performed By: #### C OVID #### Testing performed at [address] [address] O2 DEVICE ROOM AIR [facility] Comment on above: Performed By: #### C OVID #### Testing performed at [address] [place] [address] PATIENT DIAGNOSIS SOB [facility] Comment on above: Performed By: #### C OVID #### Testing performed at [address] [address] PATIENT O2 SETTINGS 21 [facility] Comment on above: Performed By: #### C OVID #### Testing performed at [address] [address] pCO2, arterial 30 mmHg Low 35-45 [facility] Comment on above: Performed By: #### C OVID #### Testing performed at [address] [address] pH, arterial 7.52 High 7.350-7.450 [facility] Comment on above: Performed By: #### C OVID #### Testing performed at [address] [address] pO2,arterial 65 mmHg Low 80-100 [facility] Comment on above: Performed By: #### C OVID #### Testing performed at [address] [address] SAMPLE SITE RIGHT RADIAL Normal [facility] Comment on above: Performed By: #### C OVID #### Testing performed at [address] [address] sO2,arterial 95.1 % Normal 95-100 [facility] Comment on above: Performed By: #### C OVID #### Testing performed at [address] [address] C REACTIVE PROTEINon 024 CRP [Mass/Vol] 16.1 mg/L High 0 - 10 MG/L [facility] CRP [Mass/Vol] 16.1 mg/L High 0-10 [facility] Comment on above: Performed By: #### U MAC, UMIC #### Testing performed at [address] [address] CBCon 10-13-2023 ABSOLUTE BAS 0.0 10*3/uL Normal 0.0-0.2 [facility] Comment on above: Performed By: #### U MAC, UMIC #### Testing performed at [address] [address] ABSOLUTE EOS 0.0 10*3/uL Normal 0.0-0.7 [facility] Comment on above: Performed By: #### U MAC, UMIC #### Testing performed at [address] [address] ABSOLUTE NEUTROPHIL COUNT 12.7 10*3/uL High 1.4-6.5 [facility] Comment on above: Performed By: #### U MAC, UMIC #### Testing performed at [address] [place] [address] Basophils/100 WBC (Bld) 0.1 % Normal 0.0-2.0 [facility] Comment on above: Performed By: #### U MAC, UMIC #### Testing performed at [address] [place] [address] DTYPE AUTO DIFF Normal [facility] Comment on above: Performed By: #### U MAC, UMIC #### Testing performed at [address] [place] [address] Eosinophils/100 WBC (Bld) 0.0 % Normal 0.0-11.0 [facility] Comment on above: Performed By: #### U MAC, UMIC #### Testing performed at [address] [address] Lymphocytes (Bld) [#/Vol] 2.5 10*3/uL Normal 1.2-3.4 [facility] Comment on above: Performed By: #### U MAC, UMIC #### Testing performed at [address] [place] [address] Lymphocytes/100 WBC (Bld) 15.8 % Low 20.0-55.0 [facility] Comment on above: Performed By: #### U MAC, UMIC #### Testing performed at [address] [address] Monocytes (Bld) [#/Vol] 0.5 10*3/uL Normal 0.0-0.7 [facility] Comment on above: Performed By: #### U MAC, UMIC #### Testing performed at [address] [address] Monocytes/100 WBC (Bld) 3.4 % Normal 0.0-10.0 [facility] Comment on above: Performed By: #### U MAC, UMIC #### Testing performed at [address] [place] [address] Neutrophils/100 WBC (Bld) 80.7 % High 37.0-75.0 [facility] Comment on above: Performed By: #### U MAC, UMIC #### Testing performed at [address] [address] Erythrocyte distribution width (RBC) [Ratio] 14.9 % High 11.5-14.5 [facility] Comment on above: Performed By: #### U MAC, UMIC #### Testing performed at [address] [address] Hematocrit (Bld) [Volume fraction] 34.6 % Low 36.0-48.0 [facility] Comment on above: Performed By: #### U MAC, UMIC #### Testing performed at [address] [address] Hemoglobin (Bld) [Mass/Vol] 11.7 g/dL Low 12.0-16.0 [facility] Comment on above: Performed By: #### U MAC, UMIC #### Testing performed at [address] [address] MCH (RBC) [Entitic mass] 28.1 pg Normal 26.0-35.0 [facility] Comment on above: Performed By: #### U MAC, UMIC #### Testing performed at [address] [address] MCHC (RBC) [Mass/Vol] 33.8 g/dL Normal 27.0-37.0 [facility] Comment on above: Performed By: #### U MAC, UMIC #### Testing performed at [address] [address] MCV (RBC) [Entitic vol] 83.1 fL Normal 80.0-100.0 [facility] Comment on above: Performed By: #### U MAC, UMIC #### Testing performed at [address] [address] Platelet mean volume (Bld) [Entitic vol] 7.6 fL Normal 7.4-11.0 [facility] Comment on above: Performed By: #### U MAC, UMIC #### Testing performed at [address] [address] Platelets (Bld) [#/Vol] 325 10*3/uL Normal 130-400 [facility] Comment on above: Performed By: #### U MAC, UMIC #### Testing performed at [address] [address] RBC (Bld) [#/Vol] 4.16 10*6/uL Normal 4.0-5.4 [facility] Comment on above: Performed By: #### U MAC, UMIC #### Testing performed at [address] [address] WBC (Bld) [#/Vol] 15.7 10*3/uL High 3.6-11.0 [facility] Comment on above: Performed By: #### U MAC, UMIC #### Testing performed at [address] [address] CBC, EDIF, PLATELETon 2023 ABSOLUTE BASOPHIL COUNT 0.0 10*3/uL 0.0 - 0.2 10*3/uL [facility] Basophils/100 WBC (Bld) 0.1 % 0.0 - 2.0 % [facility] Differential cell count method Nom (Bld) AUTO DIFF % [facility] Eosinophils (Bld) [#/Vol] 0.0 10*3/uL 0.0 - 0.7 10*3/uL [facility] Eosinophils/100 WBC (Bld) 0.0 % 0.0 - 11.0 % [facility] Erythrocyte distribution width (RBC) [Ratio] 14.9 % High 11.5 - 14.5 % [facility] Hematocrit (Bld) [Volume fraction] 34.6 % Low 36.0 - 48.0 % [facility] Hemoglobin (Bld) [Mass/Vol] 11.7 g/dL Low [facility] Interpretation and review of laboratory results Abnormal [facility] Lymphocytes (Bld) [#/Vol] 2.5 10*3/uL 1.2 - 3.4 10*3/uL [facility] Lymphocytes/100 WBC (Bld) 15.8 % Low 20.0 - 55.0 % [facility] MCH (RBC) [Entitic mass] 28.1 pg 26.0 - 35.0 PG [facility] MCHC (RBC) [Mass/Vol] 33.8 g/dL [facility] MCV (RBC) [Entitic vol] 83.1 fL [facility] Monocytes (Bld) [#/Vol] 0.5 10*3/uL 0.0 - 0.7 10*3/uL [facility] Monocytes/100 WBC (Bld) 3.4 % 0.0 - 10.0 % [facility] Neutrophils (Bld) [#/Vol] 12.7 10*3/uL High 1.4 - 6.5 10*3/uL [facility] Neutrophils/100 WBC (Bld) 80.7 % High 37.0 - 75.0 % [facility] Platelet mean volume (Bld) [Entitic vol] 7.6 fL [facility] Platelets (Bld) [#/Vol] 325 10*3/uL 130 - 400 10*3/uL [facility] RBC (Bld) [#/Vol] 4.16 10*6/uL 4.0 - 5.4 10*6/uL [facility] WBC (Bld) [#/Vol] 15.7 10*3/uL High 3.6 - 11.0 10*3/uL [facility] Cardiac echo study Procedure on 10-13-2023 ADDE [...] ms MVA PHT 3.94 cm2 MV Dec Real 482.74 cm/s2 MV Decel. Time 223.67 (160-240 ms) Pulmonary Valve PV Peak Velocity 1.0 (0.5-1.5 m/s) KS End VMAX 1.8 m/s PV maxPG 4.0 mmHg PV Vmax 1.0 m/s KS End PG 8.93 mmHg Tricuspid Valve TR [...] Doppler, and color-flow Echocardiogram Imaging system used: [employer] 2D Dimensions IVSd 1.0 cm F: 0.6-0.9LVEF (Tavarez's)75.66 % F: 54 - 74 PWd 1.0 cm F: 0.6 - 0.9EF AP4-a2DQ71.27 % LVDd 5.4 cm F: 3.8 - 5.2EF AP2-a2DQ79.24 % LVDs 3.15 cm F: 2.2 - 3.5EF BP-a2DQ75.66 % Aortic Root 2.75 cm F: 2.7 - 3.2HWKCS30 mL Aortic Root Index1.2 cm/z6TAAID75.28 mL F: 46 - 106 Ascending Aorta 3.26 cm F: 2.3 - 3.1LV Volume Index40.40 mL/m2 F: 29 - 61 Ascending Aorta Index: 1.5 cm/m2LA Ogbgtf20.7 mL Left Atrium 4.28 cm F: 2.7 [...] (2.5-4.5 cm2) Mitral Valve MV E Max Abisia.1.0 (0.4-1.3 m/s)MVA VTI 2.2 (4.0-6.0 cm2) MV A Velocity0.56 (0.4-1.3 m/s)E/A Ratio1.87 MV Vmean0.83 m/sMV Mean Gr.2.97 (<2mmHg) MV PHT55.78 msMVA PHT3.94 cm2 MV Dec Real 482.74 cm/s2MV Decel. Dbfd263.67 (160-240 ms) Pulmonary Valve PV Peak Velocity1.0 (0.5-1.5 m/s)KS End VMAX1.8 m/s PV maxPG4.0 mmHgPV Vmax1.0 m/s KS End PG 8.93 mmHg Tricuspid Valve TR P. Velocity2.60 m/sRAP Estimate8 mmHg RVSP35.13 mmHgTR maxPG 27.13 mmHg S'0.13 m/s M-Mode Aortic Cusp Exc1.79 cm [facility] Radiology Study observation (narrative) [facility] Cardiac echo study Procedure Ordered By: Denny Pineda on 10-13-2023 [facility] Work Phone: ESRon 10-13-2023 ESR (Bld) [Velocity] 43 mm/h High 0-15 [facility] Comment on above: Performed By: #### U MAC, [facility] #### Testing performed at [facility] [address] [place] [address] LACTATE, BLOODon 10-13-2023 Interpretation and review of laboratory results Abnormal [facility] Lactate [Moles/Vol] 4.6 mmol/L Critically high 0.7 - 2.0 mmol/L [facility] Comment on above: PLEASE REPEAT INITIA L CRITICAL IN 3 HOURS IF ED OR INPATIENT SEPSIS PATIENT Result called to read back by: KENNA 10/13/2023 @ 11:39 by [employer] [facility] Interpretation and review of laboratory results Abnormal [facility] Lactate [Moles/Vol] 5.0 mmol/L Critically high 0.7 - 2.0 mmol/L [facility] Comment on above: PLEASE REPEAT INITIA L CRITICAL IN 3 HOURS IF ED OR INPATIENT SEPSIS PATIENT Result called to read back by: JARETT NAIR 10/13/2023 @ 05:30 by HRE [facility] Interpretation and review of laboratory results Abnormal [facility] Lactate [Moles/Vol] 4.2 mmol/L Critically high 0.7 - 2.0 mmol/L [facility] Comment on above: PLEASE REPEAT INITIA L CRITICAL IN 3 HOURS IF ED OR INPATIENT SEPSIS PATIENT Result called to read back by: JUANJO DANIEL 10/13/2023 @ 00:30 by DIANA [facility] LACTATE,BLOODon 10-13-2023 Lactate [Moles/Vol] 4.6 mmol/L Critically high 0.7-2.0 [facility] Comment on above: Result Comment: PLEA SE REPEAT INITIAL CRITICAL IN 3 HOURS IF ED OR INPATIENT SEPSIS PATIENT Result called to read back by: KENNA 10/13/2023 @ 11:39 by [employer] OPERATOR Performed By: #### C OVID #### Testing performed at [address] [address] Lactate [Moles/Vol] 5.0 mmol/L Critically high 0.7-2.0 [facility] Comment on above: Result Comment: PLEA SE REPEAT INITIAL CRITICAL IN 3 HOURS IF ED OR INPATIENT SEPSIS PATIENT Result called to read back by: JARETT NAIR 10/13/2023 @ 05:30 by HRE Performed By: #### U MAC, UMIC #### Testing performed at [address] [address] Lactate [Moles/Vol] 4.2 mmol/L Critically high 0.7-2.0 [facility] Comment on above: Result Comment: PLEA SE REPEAT INITIAL CRITICAL IN 3 HOURS IF ED OR INPATIENT SEPSIS PATIENT Result called to read back by: JUANJO DANIEL 10/13/2023 @ 00:30 by DIANA Performed By: #### U MAC, UMIC #### Testing performed at [address] [address] MAGNESIUMon 10-13-2023 Magnesium [Mass/Vol] 2.1 mg/dL [facility] Magnesium [Mass/Vol] 2.1 mg/dL Normal 1.6-2.3 [facility] Comment on above: Performed By: #### U [facility], UMZARIA #### Testing performed at [facility] [address] [place] [address] No Panel Informationon 10-12 Interpretation and review of laboratory results Abnormal [facility] RENAL FUNCTION PANELon 10-12 Albumin [Mass/Vol] 3.6 G/dl 3.5 - 5.0 G/dl [facility] Calcium [Mass/Vol] 8.7 mg/dL [facility] Chloride [Moles/Vol] 104 mmol/L [facility] Comment on above: Please note: Triglyc eride levels of 600mg/dL or higher may positively bias chloride results by approximately 2.1 mmol CO2 [Moles/Vol] 23 mmol/L [facility] Creatinine [Mass/Vol] 0.50 mg/dL Low [facility] GFR COMMENT Average GFR for 30-3 9 years old = 107. [facility] Comment on above: Chronic Kidney disea se, GFR = <60. Kidney failure, GFR = <15. The GFR estimate is not adjusted for extreme body surface area or acute process, nor has it been validated for women or ethnic groups other than and . GFR/1.73 sq M.predicted among blacks MDRD (S/P/Bld) [Vol rate/Area] 186 mL/min/{1.73_m2} ml/min/1.73s q.m [facility] GFR/1.73 sq M.predicted among non-blacks MDRD (S/P/Bld) [Vol rate/Area] 154 mL/min/{1.73_m2} ml/min/1.73s q.m [facility] Glucose post fast [Mass/Vol] 151 mg/dL High [facility] Comment on above: NORMAL <100 mg/dL PREDIABETES 101-126 mg/dL DIABETES 126 mg/dL or higher Phosphate [Mass/Vol] 2.8 mg/dL [facility] Potassium [Moles/Vol] 3.9 mmol/L [facility] Sodium [Moles/Vol] 135 mmol/L Low [facility] Urea nitrogen [Mass/Vol] 15 mg/dL [facility] RENAL PANEL,FASTINGon 2023 ALBUMIN 3.6 G/dl Normal 3.5-5.0 [facility] Comment on above: Performed By: #### U MAC, UMIC #### Testing performed at [address] [address] Calcium [Mass/Vol] 8.7 mg/dL Normal 8.4-10.2 [facility] Comment on above: Performed By: #### U MAC, UMIC #### Testing performed at [address] [address] Chloride [Moles/Vol] 104 mmol/L Normal 98-107 [facility] Comment on above: Result Comment: Klaus baptiste note: Triglyceride levels of 600mg/dL or higher may positively bias chloride results by approximately 2.1 mmol Performed By: #### U MAC, UMIC #### Testing performed at [address] [address] CO2 [Moles/Vol] 23 mmol/L Normal 22-30 [facility] Comment on above: Performed By: #### U MAC, UMIC #### Testing performed at [address] [address] Creatinine [Mass/Vol] 0.50 mg/dL Low 0.70-1.20 [facility] Comment on above: Performed By: #### U MAC, UMIC #### Testing performed at [address] [address] EST. GFR, 186 ml/min/1.73sq.m [facility] Comment on above: Performed By: #### U MAC, UMIC #### Testing performed at [address] [address] EST. GFR,Non 154 ml/min/1.73sq.m [facility] Comment on above: Performed By: #### U MAC, UMIC #### Testing performed at [address] [address] GFR Information Average GFR for 30-3 9 years old = 107. Normal [facility] Comment on above: Result Comment: Academic Tutor bentley Kidney disease, GFR = <60. Kidney failure, GFR = <15. The GFR estimate is not adjusted for extreme body surface area or acute process, nor has it been validated for women or ethnic groups other than and . Performed By: #### U MAC, UMIC #### Testing performed at [address] [address] Glucose [Mass/Vol] 151 mg/dL High 70-100 [facility] Comment on above: Result Comment: NORMAL <100 mg/dL PREDIABETES 101-126 mg/dL DIABETES 126 mg/dL or higher Performed By: #### U ERIC, UMIC #### Testing performed at [address] [address] PHOSPHOROUS 2.8 MG/DL Normal 2.5-4.5 [facility] Comment on above: Performed By: #### U ERIC, UMIC #### Testing performed at [address] [address] Potassium [Moles/Vol] 3.9 mmol/L Normal 3.5-5.1 [facility] Comment on above: Performed By: #### U ERIC, UMIC #### Testing performed at [address] [address] Sodium [Moles/Vol] 135 mmol/L Low 137-145 [facility] Comment on above: Performed By: #### U ERIC, UMIC #### Testing performed at [address] [address] Urea nitrogen [Mass/Vol] 15 mg/dL Normal 7-20 [facility] Comment on above: Performed By: #### U MAC, UMIC #### Testing performed at [address] [address] SEDIMENTATION RATE, AUTOMATE Don 10-13-2023 ESR (Bld) [Velocity] 43 mm/h [facility] Interpretation and review of laboratory results Abnormal [facility] XR CHEST PA 1 VIEWon 024 XR [...] prior. Normal [facility] XR Chest PA uprighton 2023 IMPRESSION: 1. [...] from the exam of one day prior. [facility] Radiology Study observation (narrative) [facility] XR Chest PA uprightOrdered B y: Nissa Newby on 10-13-2023 [facility] B TYPE NATRIURETIC PEPTIDEon 10-12-2023 Natriuretic peptide B (Bld) [Mass/Vol] 68 pg/mL Normal [facility] Comment on above: Performed By: #### E SR, BNP, CREACT ####Testing performed at [address] [address] B-TYPE NATRIURETIC PEPTIDE ( BRAIN)on 10-12-2023 Natriuretic peptide B (Bld) [Mass/Vol] 68 pg/mL [facility] C REACTIVE PROTEINon 024 CRP [Mass/Vol] 35.0 mg/L High 0 - 10 MG/L [facility] Interpretation and review of laboratory results Abnormal [facility] CRP [Mass/Vol] 35.0 mg/L High 0-10 [facility] Comment on above: Performed By: #### E SR, BNP, CREACT ####Testing performed at [address] [address] CBCon 10-12-2023 ABSOLUTE BAS 0.0 10*3/uL Normal 0.0-0.2 [facility] Comment on above: Performed By: #### R ENF MG ACBC ####Testing performed at [place] [id number] ABSOLUTE EOS 0.0 10*3/uL Normal 0.0-0.7 [facility] Comment on above: Performed By: #### R ENF MG ACBC ####Testing performed at [address] [address] ABSOLUTE NEUTROPHIL COUNT 12.1 10*3/uL High 1.4-6.5 [facility] Comment on above: Performed By: #### R ENF MG, ACBC ####Testing performed at [address] [address] Basophils/100 WBC (Bld) 0.1 % Normal 0.0-2.0 [facility] Comment on above: Performed By: #### R ENF MG ACBC ####Testing performed at [address] [address] DTYPE AUTO DIFF Normal [facility] Comment on above: Performed By: #### R ENF MG ACBC ####Testing performed at [place] [id number] Eosinophils/100 WBC (Bld) 0.0 % Normal 0.0-11.0 [facility] Comment on above: Performed By: #### MG KENYATTA ACBC ####Testing performed at [address] [address] Lymphocytes (Bld) [#/Vol] 1.4 10*3/uL Normal 1.2-3.4 [facility] Comment on above: Performed By: #### MG KENYATTA ACBC ####Testing performed at [address] [address] Lymphocytes/100 WBC (Bld) 10.2 % Low 20.0-55.0 [facility] Comment on above: Performed By: #### MG KENAYTTA ACBC ####Testing performed at [address] [address] Monocytes (Bld) [#/Vol] 0.5 10*3/uL Normal 0.0-0.7 [facility] Comment on above: Performed By: #### MG KENYATTA ACBC ####Testing performed at [address] [address] Monocytes/100 WBC (Bld) 3.5 % Normal 0.0-10.0 [facility] Comment on above: Performed By: #### MG KENYATTA ACBC ####Testing performed at [address] [address] Neutrophils/100 WBC (Bld) 86.2 % High 37.0-75.0 [facility] Comment on above: Performed By: #### R MG KENJI ACBC ####Testing performed at [address] [address] Erythrocyte distribution width (RBC) [Ratio] 14.7 % High 11.5-14.5 [facility] Comment on above: Performed By: #### MG KENYATTA ACBC ####Testing performed at [address] [address] Hematocrit (Bld) [Volume fraction] 35.5 % Low 36.0-48.0 [facility] Comment on above: Performed By: #### MG KENYATTA ACBC ####Testing performed at [address] [address] Hemoglobin (Bld) [Mass/Vol] 11.9 g/dL Low 12.0-16.0 [facility] Comment on above: Performed By: #### MG KENYATTA ACBC ####Testing performed at [place] [id number] MCH (RBC) [Entitic mass] 27.9 pg Normal 26.0-35.0 [facility] Comment on above: Performed By: #### Kylee [employer] Priscilla ACBC ####[place] [address] MCHC (RBC) [Mass/Vol] 33.5 g/dL Normal 27.0-37.0 [facility] Comment on above: Performed By: #### R MG KENJI ACBC ####Testing performed at [place] [id number] MCV (RBC) [Entitic vol] 83.3 fL Normal 80.0-100.0 [facility] Comment on above: Performed By: #### MG KENYATTA ACBC ####Testing performed at [address] [address] Platelet mean volume (Bld) [Entitic vol] 7.9 fL Normal 7.4-11.0 [facility] Comment on above: Performed By: #### MG KENYATTA ACBC ####Testing performed at [address] [address] Platelets (Bld) [#/Vol] 292 10*3/uL Normal 130-400 [facility] Comment on above: Performed By: #### R MG KENJI ACBC ####Testing performed at [address] [address] RBC (Bld) [#/Vol] 4.26 10*6/uL Normal 4.0-5.4 [facility] Comment on above: Performed By: #### Kylee ENFMG ACBC ####Testing performed at [address] [address] WBC (Bld) [#/Vol] 14.0 10*3/uL High 3.6-11.0 [facility] Comment on above: Performed By: #### R ENF, MG, ACANTOLIN ####Testing performed at [address] [address] CBC, EDIF, PLATELETon 2023 ABSOLUTE BASOPHIL COUNT 0.0 10*3/uL 0.0 - 0.2 10*3/uL [facility] Basophils/100 WBC (Bld) 0.1 % 0.0 - 2.0 % [facility] Differential cell count method Nom (Bld) AUTO DIFF % [facility] Eosinophils (Bld) [#/Vol] 0.0 10*3/uL 0.0 - 0.7 10*3/uL [facility] Eosinophils/100 WBC (Bld) 0.0 % 0.0 - 11.0 % [facility] Erythrocyte distribution width (RBC) [Ratio] 14.7 % High 11.5 - 14.5 % [facility] Hematocrit (Bld) [Volume fraction] 35.5 % Low 36.0 - 48.0 % [facility] Hemoglobin (Bld) [Mass/Vol] 11.9 g/dL Low [facility] Interpretation and review of laboratory results Abnormal [facility] Lymphocytes (Bld) [#/Vol] 1.4 10*3/uL 1.2 - 3.4 10*3/uL [facility] Lymphocytes/100 WBC (Bld) 10.2 % Low 20.0 - 55.0 % [facility] MCH (RBC) [Entitic mass] 27.9 pg 26.0 - 35.0 PG [facility] MCHC (RBC) [Mass/Vol] 33.5 g/dL [facility] MCV (RBC) [Entitic vol] 83.3 fL [facility] Monocytes (Bld) [#/Vol] 0.5 10*3/uL 0.0 - 0.7 10*3/uL [facility] Monocytes/100 WBC (Bld) 3.5 % 0.0 - 10.0 % [facility] Neutrophils (Bld) [#/Vol] 12.1 10*3/uL High 1.4 - 6.5 10*3/uL [facility] Neutrophils/100 WBC (Bld) 86.2 % High 37.0 - 75.0 % [facility] Platelet mean volume (Bld) [Entitic vol] 7.9 fL [facility] Platelets (Bld) [#/Vol] 292 10*3/uL 130 - 400 10*3/uL [facility] RBC (Bld) [#/Vol] 4.26 10*6/uL 4.0 - 5.4 10*6/uL [facility] WBC (Bld) [#/Vol] 14.0 10*3/uL High 3.6 - 11.0 10*3/uL [facility] ESRon 10-12-2023 ESR (Bld) [Velocity] 53 mm/h High 0-15 [facility] Comment on above: Performed By: #### E SR, BNP, CREACT ####[place] [address] LACTATE, BLOODon 10-12-2023 Interpretation and review of laboratory results Abnormal [facility] Lactate [Moles/Vol] 3.7 mmol/L Critically high 0.7 - 2.0 mmol/L [facility] Comment on above: PLEASE REPEAT INITIA L CRITICAL IN 3 HOURS IF ED OR INPATIENT SEPSIS PATIENT Result called to read back by: JOANIE DENSON 10/12/2023 @ 21:[address] [facility] Center[facility]ig[facility] Energy [facility] Interpretation and review of laboratory results Abnormal [facility] Lactate [Moles/Vol] 3.6 mmol/L Critically high 0.7 - 2.0 mmol/L [facility] Comment on above: PLEASE REPEAT INITIA L CRITICAL IN 3 HOURS IF ED OR INPATIENT SEPSIS PATIENT Result called to read back by: JOANIE THOMPSON 10/12/2023 @ 18:15 by [facility] CenterAgent[facility] Interpretation and review of laboratory results Abnormal [facility] Lactate [Moles/Vol] 4.2 mmol/L Critically high 0.7 - 2.0 mmol/L [facility] Comment on above: PLEASE REPEAT INITIA L CRITICAL IN 3 HOURS IF ED OR INPATIENT SEPSIS PATIENT Result called to read back by: VIRGINIA 10/12/2023 @ 14:54 by WB [facility] Interpretation and review of laboratory results Abnormal [facility] Lactate [Moles/Vol] 4.7 mmol/L Critically high 0.7 - 2.0 mmol/L [facility] Comment on above: PLEASE REPEAT INITIA L CRITICAL IN 3 HOURS IF ED OR INPATIENT SEPSIS PATIENT Result called to read back by: VIRGINIA 10/12/2023 @ 13:11 by WB [facility] LACTATE,BLOODon 10-12-2023 Lactate [Moles/Vol] 3.7 mmol/L Critically high 0.7-2.0 [facility] Comment on above: Result Comment: PLEA SE REPEAT INITIAL CRITICAL IN 3 HOURS IF ED OR INPATIENT SEPSIS PATIENT Result called to read back by: JOANIE DENSON 10/12/2023 @ 21:17 by ALL Performed By: #### L ACTA ####Testing performed at [address] [address] Lactate [Moles/Vol] 3.6 mmol/L Critically high 0.7-2.0 [facility] Comment on above: Result Comment: PLEA SE REPEAT INITIAL CRITICAL IN 3 HOURS IF ED OR INPATIENT SEPSIS PATIENT Result called to read back by: JOANIE THOMPSON 10/12/2023 @ 18:15 by DIANA Performed By: #### U MAC, UMIC #### Testing performed at [address] [address] Lactate [Moles/Vol] 4.2 mmol/L Critically high 0.7-2.0 [facility] Comment on above: Result Comment: PLEA SE REPEAT INITIAL CRITICAL IN 3 HOURS IF ED OR INPATIENT SEPSIS PATIENT Result called to read back by: VIRGINIA 10/12/2023 @ 14:54 by WB Performed By: #### U MAC, UMIC #### Testing performed at [address] [address] Lactate [Moles/Vol] 4.7 mmol/L Critically high 0.7-2.0 [facility] Comment on above: Result Comment: PLEA SE REPEAT INITIAL CRITICAL IN 3 HOURS IF ED OR INPATIENT SEPSIS PATIENT Result called to read back by: VIRGINIA 10/12/2023 @ 13:11 by WB Performed By: #### U MAC, UMIC #### Testing performed at [address] [address] MAGNESIUMon 10-12-2023 Magnesium [Mass/Vol] 2.0 mg/dL [facility] Magnesium [Mass/Vol] 2.0 mg/dL Normal 1.6-2.3 [facility] Comment on above: Performed By: #### R ENF, MG, ACBC ####Testing performed at [address] [address] No Panel Informationon 10-11 [facility] PROCALCITONINon 10-12-2023 PROCALCITONIN 0.06 ng/mL 0.00 - 0.25 ng/mL [facility] Comment on above: PCT Interpretation Less than 0.10 ng/mL, antibiotic therapy strongly discouraged. 0.10-0.25 ng/mL, antibiotic therapy discouraged. 0.25-0.50 ng/mL, antibiotic therapy encouraged. Greater than 0.50 ng/mL, antibiotic therapy strongly encouraged. [facility] PROCALCITONIN 0.06 ng/mL Normal 0.00-0.25 [facility] Comment on above: Result Comment: PCT Interpretation Less than 0.10 ng/mL, antibiotic therapy strongly discouraged. 0.10-0.25 ng/mL, antibiotic therapy discouraged. 0.25-0.50 ng/mL, antibiotic therapy encouraged. Greater than 0.50 ng/mL, antibiotic therapy strongly encouraged. Performed By: #### U MAC, UMIC #### Testing performed at [address] [address] [address] Portable XR Chest Viewson IMPRESSION: Bibasilar consolidation [...] IMPRESSION: Bibasilar consolidation with bilateral pleural effusions. [facility] Radiology Study observation (narrative) [facility] Portable XR Chest ViewsOrder ed By: Willie Yinkanika on 10-12-2023 [facility] Work Phone: RENAL FUNCTION PANELon 10-11 Albumin [Mass/Vol] 3.7 G/dl 3.5 - 5.0 G/dl [facility] Calcium [Mass/Vol] 8.5 mg/dL [facility] Chloride [Moles/Vol] 109 mmol/L High [facility] Comment on above: Please note: Triglyc eride levels of 600mg/dL or higher may positively bias chloride results by approximately 2.1 mmol CO2 [Moles/Vol] 19 mmol/L Low [facility] Creatinine [Mass/Vol] 0.50 mg/dL Low [place] GFR COMMENT Average GFR for 30-3 9 years old = 107. [facility] Comment on above: Chronic Kidney disea se, GFR = <60. Kidney failure, GFR = <15. The GFR estimate is not adjusted for extreme body surface area or acute process, nor has it been validated for women or ethnic groups other than and . GFR/1.73 sq M.predicted among blacks MDRD (S/P/Bld) [Vol rate/Area] 186 mL/min/{1.73_m2} ml/min/1.73s q.m [facility] GFR/1.73 sq M.predicted among non-blacks MDRD (S/P/Bld) [Vol rate/Area] 154 mL/min/{1.73_m2} ml/min/1.73s q.m [facility] Glucose post fast [Mass/Vol] 209 mg/dL High [facility] Comment on above: NORMAL <100 mg/dL PREDIABETES 101-126 mg/dL DIABETES 126 mg/dL or higher Interpretation and review of laboratory results Abnormal [facility] Phosphate [Mass/Vol] 2.3 mg/dL Low [facility] Potassium [Moles/Vol] 3.5 mmol/L [facility] Sodium [Moles/Vol] 137 mmol/L [facility] Urea nitrogen [Mass/Vol] 13 mg/dL [facility] RENAL PANEL,FASTINGon 2023 ALBUMIN 3.7 G/dl Normal 3.5-5.0 [facility] Comment on above: Performed By: #### MG YOU ACBC ####[place] [address] Calcium [Mass/Vol] 8.5 mg/dL Normal 8.4-10.2 [facility] Comment on above: Performed By: #### MG YOU ACBC ####[place] [address] Chloride [Moles/Vol] 109 mmol/L High 98-107 [facility] Comment on above: Result Comment: Klaus baptiste note: Triglyceride levels of 600mg/dL or higher may positively bias chloride results by approximately 2.1 mmol Performed By: #### MG YOU ACBC ####[place] [address] CO2 [Moles/Vol] 19 mmol/L Low 22-30 [facility] Comment on above: Performed By: #### MG YOU ACBC ####[place] [address] Creatinine [Mass/Vol] 0.50 mg/dL Low 0.70-1.20 [facility] Comment on above: Performed By: #### MG YOU ACBC ####Testing performed at [place] [id number] EST. GFR, 186 ml/min/1.73sq.m [facility] Comment on above: Performed By: #### R MG PHILLIP ACBC ####Testing performed at [place] [id number] EST. GFR,Non 154 ml/min/1.73sq.m [facility] Comment on above: Performed By: #### R [employer] [place] ACBC ####Testing performed at [facility] [address] [place] [address] GFR Information Average GFR for 30-3 9 years old = 107. Normal [facility] Comment on above: Result Comment: Academic Tutor bentley Kidney disease, GFR = <60. Kidney failure, GFR = <15. The GFR estimate is not adjusted for extreme body surface area or acute process, nor has it been validated for women or ethnic groups other than and . Performed By: #### R MG PHILLIP ACBC ####Testing performed at [place] [id number] Glucose [Mass/Vol] 209 mg/dL High 70-100 [facility] Comment on above: Result Comment: NORMAL <100 mg/dL PREDIABETES 101-126 mg/dL DIABETES 126 mg/dL or higher Performed By: #### R MG PHILLIP ACBC ####Testing performed at [place] [id number] PHOSPHOROUS 2.3 MG/DL Low 2.5-4.5 [facility] Comment on above: Performed By: #### R MG PHILLIP ACBC ####Testing performed at [place] [id number] Potassium [Moles/Vol] 3.5 mmol/L Normal 3.5-5.1 [facility] Comment on above: Performed By: #### R MG PHILLIP ACBC ####Testing performed at [place] [id number] Sodium [Moles/Vol] 137 mmol/L Normal 137-145 [facility] Comment on above: Performed By: #### R MG KENJI ACANTOLIN ####Testing performed at [place] [id number] Urea nitrogen [Mass/Vol] 13 mg/dL Normal 7-20 [facility] Comment on above: Performed By: #### R MG KENJI ACANTOLIN ####Testing performed at [address] [address] SEDIMENTATION RATE, AUTOMATE Don 10-12-2023 ESR (Bld) [Velocity] 53 mm/h [facility] Interpretation and review of laboratory results Abnormal [facility] TROPONIN I, HIGH SENSITIVITY on 10-12-2023 TROPONIN I, HIGH SENSITIVITY 3 pg/mL 0 - 12 pg/mL [facility] Comment on above: Indeterminant: >12 to 100 pg/mL female >20 to 100 pg/mL male Indicative of myocardial injury. Serial sampling is recommended, a change of greater than or equal to 20 pg/mL is indicative of acute coronary syndrome. [facility] TROPONIN I, HIGH SENSITIVITY 3 pg/mL Normal 0-12 [facility] Comment on above: Result Comment: Indeterminant: >12 to 100 pg/mL female >20 to 100 pg/mL male Indicative of myocardial injury. Serial sampling is recommended, a change of greater than or equal to 20 pg/mL is indicative of acute coronary syndrome. Performed By: #### T [facility] ####Testing performed at [place] [id number] TROPONIN I, HIGH SENSITIVITY 3 pg/mL 0 - 12 pg/mL [facility] Comment on above: Indeterminant: >12 to 100 pg/mL female >20 to 100 pg/mL male Indicative of myocardial injury. Serial sampling is recommended, a change of greater than or equal to 20 pg/mL is indicative of acute coronary syndrome. [facility] TROPONIN I, HIGH SENSITIVITY 3 pg/mL Normal 0-12 [facility] Comment on above: Result Comment: Indeterminant: >12 to 100 pg/mL female >20 to 100 pg/mL male Indicative of myocardial injury. Serial sampling is recommended, a change of greater than or equal to 20 pg/mL is indicative of acute coronary syndrome. Performed By: #### U [facility], [facility] #### Testing performed at [place] [id number] URINALYSIS, MACROon 10-12-19 24 Bilirubin Ql (U) Negative NEGATIVE [facility] Clarity (U) CLEAR CLEAR [facility] Color (U) YELLOW YELLOW [facility] Glucose Test strip (U) [Mass/Vol] 500 mg/dl Abnormal NEGATIVE [facility] Hemoglobin Ql (U) SMALL Abnormal NEGATIVE [facility] Interpretation and review of laboratory results Abnormal [facility] Ketones (U) [Mass/Vol] Negative NEGAT [place] mg/dl [facility] Leukocyte esterase Test strip Ql (U) Negative NEGATIVE [facility] Nitrite Ql (U) Negative NEGATIVE [facility] pH (U) 6.5 [pH] 5.0 - 7.0 [facility] Protein Ql (U) 100 mg/dl Abnormal NEGATIVE [facility] Specific gravity (U) [Rel density] 1.025 1.010 - 1.025 [facility] Urobilinogen (U) [Mass/Vol] 0.2 mg/dL [facility] URINE MACROSCOPICon 10-12-19 24 Bilirubin Ql (U) Negative Normal NEGATIVE [facility] Comment on above: Performed By: #### U MAC, UMIC #### Testing performed at [address] [address] Clarity (U) CLEAR Normal CLEAR [facility] Comment on above: Performed By: #### U MAC, UMIC #### Testing performed at [address] [address] Color (U) YELLOW Normal YELLOW [facility] Comment on above: Performed By: #### U MAC, UMIC #### Testing performed at [address] [address] Glucose Ql (U) 500 mg/dl Abnormal NEGATIVE [facility] Comment on above: Performed By: #### U MAC, UMIC #### Testing performed at [address] [address] pH (U) 6.5 [pH] Normal 5.0-7.0 [facility] Comment on above: Performed By: #### U MAC, UMIC #### Testing performed at [address] [address] Protein (U) [Mass/Vol] 100 mg/dL Abnormal NEGATIVE [facility] Comment on above: Performed By: #### U MAC, UMIC #### Testing performed at [address] [address] URINE HEMOGLOBIN SMALL Abnormal NEGATIVE [facility] Comment on above: Performed By: #### U MAC, UMIC #### Testing performed at [address] [address] URINE KETONE Negative Normal NEGATIVE [facility] Comment on above: Performed By: #### U MAC, UMIC #### Testing performed at [address] [address] URINE LEUKOTEST Negative Normal NEGATIVE [facility] Comment on above: Performed By: #### U MAC, UMIC #### Testing performed at [address] [address] URINE NITRATES Negative Normal NEGATIVE [facility] Comment on above: Performed By: #### U MAC, UMIC #### Testing performed at [address] [address] URINE SPEC GRAVITY 1.025 Normal 1.010-1.025 [facility] Comment on above: Performed By: #### U MAC, UMIC #### Testing performed at [address] [address] Urobilinogen Qn (U) 0.2 {Dell'U}/dL Normal 0.2-1.0 [facility] Comment on above: Performed By: #### U MAC, UMIC #### Testing performed at [address] [address] URINE MICROSCOPICon 10-12-19 24 Bacteria LM.HPF (Urine sed) [#/Area] Negative NEGATIVE [facility] Casts LM.LPF (Urine sed) [#/Area] NONE NONE /LPF [facility] Crystals LM Nom (Urine sed) NONE NONE [facility] Epithelial cells LM Ql (Urine sed) 1 TO 5 /HPF [facility] Mucus Ql (Urine sed) Negative NEGATIVE [facility] RBC LM.HPF (Urine sed) [#/Area] Negative NEGATIVE /HPF [facility] Urine sediment comments LM Dillan (Urine sed) CULTURE CRITERIA NOT MET, NO CULTURE PERFORMED. [facility] WBC LM.HPF (Urine sed) [#/Area] Negative NEGATIVE /HPF [facility] Bacteria LM.HPF (Urine sed) [#/Area] Negative Normal NEGATIVE [facility] Comment on above: Performed By: #### U MAC, UMIC #### Testing performed at [address] [address] [facility] Comment on above: Performed By: #### U MAC, UMIC #### Testing performed at [address] [address] [facility] Comment on above: Performed By: #### U MAC, UMIC #### Testing performed at [address] [address] Epithelial cells LM Ql (Urine sed) 1 TO 5 Normal [facility] Comment on above: Performed By: #### U MAC, UMIC #### Testing performed at [address] [address] Mucus Ql (Urine sed) Negative Normal NEGATIVE [facility] Comment on above: Performed By: #### U MAC, UMIC #### Testing performed at [address] [address] URINE COMMENT CULTURE CRITERIA NOT MET, NO CULTURE PERFORMED. Normal [facility] Comment on above: Performed By: #### U MAC, UMIC #### Testing performed at [address] [address] URINE RBC'S Negative Normal NEGATIVE [facility] Comment on above: Performed By: #### U MAC, UMIC #### Testing performed at [address] [address] URINE WBC'S Negative Normal NEGATIVE [facility] Comment on above: Performed By: #### U MAC, UMIC #### Testing performed at [address] [address] XR CHEST 1 VIEW PORTABLEon 0 10-12-2023 XR CHEST 1 VIEW PORTABLE EXAM: XR CHEST 1 VIEW PORTABLE HISTORY: chest pain COMPARISON: CT chest 10/11/2023. TECHNIQUE: Single view chest. FINDINGS: There is moderate bibasilar consolidation and moderate bilateral pleural effusions. No pneumothorax. Heart size is borderline. Bones are unremarkable. IMPRESSION: Bibasilar consolidation with bilateral pleural effusions. Normal [facility] C REACTIVE PROTEINon 024 CRP [Mass/Vol] 158.6 mg/L High 0 - 10 MG/L [facility] Interpretation and review of laboratory results Abnormal [facility] CRP [Mass/Vol] 158.6 mg/L High 0-10 [facility] Comment on above: Performed By: #### C REACT, ESR ####Testing performed at [address] [address] CBCon 10-11-2023 ABSOLUTE BAS 0.0 10*3/uL Normal 0.0-0.2 [facility] Comment on above: Performed By: #### U MAC, UMIC #### Testing performed at [address] [address] ABSOLUTE EOS 0.0 10*3/uL Normal 0.0-0.7 [facility] Comment on above: Performed By: #### U MAC, UMIC #### Testing performed at [address] [place] [address] ABSOLUTE NEUTROPHIL COUNT 8.0 10*3/uL High 1.4-6.5 [facility] Comment on above: Performed By: #### U MAC, UMIC #### Testing performed at [address] [place] [address] Basophils/100 WBC (Bld) 0.2 % Normal 0.0-2.0 [facility] Comment on above: Performed By: #### U MAC, UMIC #### Testing performed at [address] [place] [address] DTYPE AUTO DIFF Normal [facility] Comment on above: Performed By: #### U MAC, UMIC #### Testing performed at [address] [address] Eosinophils/100 WBC (Bld) 0.0 % Normal 0.0-11.0 [facility] Comment on above: Performed By: #### U MAC, UMIC #### Testing performed at [address] [address] Lymphocytes (Bld) [#/Vol] 0.9 10*3/uL Low 1.2-3.4 [facility] Comment on above: Performed By: #### U MAC, UMIC #### Testing performed at [address] [place] [address] Lymphocytes/100 WBC (Bld) 9.9 % Low 20.0-55.0 [facility] Comment on above: Performed By: #### U MAC, UMIC #### Testing performed at [address] [address] Monocytes (Bld) [#/Vol] 0.2 10*3/uL Normal 0.0-0.7 [facility] Comment on above: Performed By: #### U MAC, UMIC #### Testing performed at [address] [place] [address] Monocytes/100 WBC (Bld) 2.1 % Normal 0.0-10.0 [facility] Comment on above: Performed By: #### U MAC, UMIC #### Testing performed at [address] [place] [address] Neutrophils/100 WBC (Bld) 87.8 % High 37.0-75.0 [facility] Comment on above: Performed By: #### U MAC, UMIC #### Testing performed at [address] [place] [address] Erythrocyte distribution width (RBC) [Ratio] 14.7 % High 11.5-14.5 [facility] Comment on above: Performed By: #### U MAC, UMIC #### Testing performed at [address] [place] [address] Hematocrit (Bld) [Volume fraction] 39.3 % Normal 36.0-48.0 [facility] Comment on above: Performed By: #### U MAC, UMIC #### Testing performed at [address] [place] [address] Hemoglobin (Bld) [Mass/Vol] 13.0 g/dL Normal 12.0-16.0 [facility] Comment on above: Performed By: #### U MAC, UMIC #### Testing performed at [address] [place] [address] MCH (RBC) [Entitic mass] 28.1 pg Normal 26.0-35.0 [facility] Comment on above: Performed By: #### U MAC, UMIC #### Testing performed at [address] [place] [address] MCHC (RBC) [Mass/Vol] 33.1 g/dL Normal 27.0-37.0 [facility] Comment on above: Performed By: #### U MAC, UMIC #### Testing performed at [address] [place] [address] MCV (RBC) [Entitic vol] 84.7 fL Normal 80.0-100.0 [facility] Comment on above: Performed By: #### U MAC, UMIC #### Testing performed at [address] [address] Platelet mean volume (Bld) [Entitic vol] 7.7 fL Normal 7.4-11.0 [facility] Comment on above: Performed By: #### U MAC, UMIC #### Testing performed at [address] [address] Platelets (Bld) [#/Vol] 232 10*3/uL Normal 130-400 [facility] Comment on above: Performed By: #### U MAC, UMIC #### Testing performed at [address] [address] RBC (Bld) [#/Vol] 4.63 10*6/uL Normal 4.0-5.4 [facility] Comment on above: Performed By: #### U MAC, UM #### Testing performed at [address] [address] WBC (Bld) [#/Vol] 9.1 10*3/uL Normal 3.6-11.0 [facility] Comment on above: Performed By: #### U MAC, IC #### Testing performed at [address] [address] CBC, EDIF, PLATELETon 2023 ABSOLUTE BASOPHIL COUNT 0.0 10*3/uL 0.0 - 0.2 10*3/uL [facility] Basophils/100 WBC (Bld) 0.2 % 0.0 - 2.0 % [facility] Differential cell count method Nom (Bld) AUTO DIFF % [facility] Eosinophils (Bld) [#/Vol] 0.0 10*3/uL 0.0 - 0.7 10*3/uL [facility] Eosinophils/100 WBC (Bld) 0.0 % 0.0 - 11.0 % [facility] Erythrocyte distribution width (RBC) [Ratio] 14.7 % High 11.5 - 14.5 % [facility] Hematocrit (Bld) [Volume fraction] 39.3 % 36.0 - 48.0 % [facility] Hemoglobin (Bld) [Mass/Vol] 13.0 g/dL [facility] Interpretation and review of laboratory results Abnormal [facility] Lymphocytes (Bld) [#/Vol] 0.9 10*3/uL Low 1.2 - 3.4 10*3/uL [facility] Lymphocytes/100 WBC (Bld) 9.9 % Low 20.0 - 55.0 % [facility] MCH (RBC) [Entitic mass] 28.1 pg 26.0 - 35.0 PG [facility] MCHC (RBC) [Mass/Vol] 33.1 g/dL [facility] MCV (RBC) [Entitic vol] 84.7 fL [facility] Monocytes (Bld) [#/Vol] 0.2 10*3/uL 0.0 - 0.7 10*3/uL [facility] Monocytes/100 WBC (Bld) 2.1 % 0.0 - 10.0 % [facility] Neutrophils (Bld) [#/Vol] 8.0 10*3/uL High 1.4 - 6.5 10*3/uL [facility] Neutrophils/100 WBC (Bld) 87.8 % High 37.0 - 75.0 % [facility] Platelet mean volume (Bld) [Entitic vol] 7.7 fL [facility] Platelets (Bld) [#/Vol] 232 10*3/uL 130 - 400 10*3/uL [facility] RBC (Bld) [#/Vol] 4.63 10*6/uL 4.0 - 5.4 10*6/uL [facility] WBC (Bld) [#/Vol] 9.1 10*3/uL 3.6 - 11.0 10*3/uL [facility] CHEM 7 FASTINGon 10-11-2023 Chloride [Moles/Vol] 107 mmol/L Normal 98-107 [facility] Comment on above: Result Comment: Klaus baptiste note: Triglyceride levels of 600mg/dL or higher may positively bias chloride results by approximately 2.1 mmol Performed By: #### U MAC, UMIC #### Testing performed at [address] [address] CO2 [Moles/Vol] 21 mmol/L Low 22-30 [facility] Comment on above: Performed By: #### U MAC, UMIC #### Testing performed at [address] [address] Creatinine [Mass/Vol] 0.50 mg/dL Low 0.70-1.20 [facility] Comment on above: Performed By: #### U MAC, UMIC #### Testing performed at [address] [address] EST. GFR, 186 ml/min/1.73sq.m [facility] Comment on above: Performed By: #### U MAC, UMIC #### Testing performed at [address] [address] EST. GFR,Non 154 ml/min/1.73sq.m [facility] Comment on above: Performed By: #### U MAC, UMIC #### Testing performed at [address] [address] GFR Information Average GFR for 30-3 9 years old = 107. Normal [facility] Comment on above: Result Comment: Academic Tutor bentley Kidney disease, GFR = <60. Kidney failure, GFR = <15. The GFR estimate is not adjusted for extreme body surface area or acute process, nor has it been validated for women or ethnic groups other than and . Performed By: #### U MAC, UMIC #### Testing performed at [address] [address] Glucose [Mass/Vol] 239 mg/dL High 70-100 [facility] Comment on above: Result Comment: NORMAL <100 mg/dL PREDIABETES 101-126 mg/dL DIABETES 126 mg/dL or higher Performed By: #### U MAC, UMIC #### Testing performed at [address] [address] Potassium [Moles/Vol] 3.3 mmol/L Low 3.5-5.1 [facility] Comment on above: Performed By: #### U MAC, UMIC #### Testing performed at [address] [address] Sodium [Moles/Vol] 135 mmol/L Low 137-145 [facility] Comment on above: Performed By: #### U MAC, UMIC #### Testing performed at [address] [address] Urea nitrogen [Mass/Vol] 7 mg/dL Normal 10-10 [facility] Comment on above: Performed By: #### U ERIC, ZARIA #### Testing performed at [facility] [address] [place] [address] CHEM 7 (LYTES,BUN,CREA,GLUC) on 10-11-2023 Chloride [Moles/Vol] 107 mmol/L [facility] Comment on above: Please note: Triglyc eride levels of 600mg/dL or higher may positively bias chloride results by approximately 2.1 mmol CO2 [Moles/Vol] 21 mmol/L Low [facility] Creatinine [Mass/Vol] 0.50 mg/dL Low [facility] GFR COMMENT Average GFR for 30-3 9 years old = 107. [facility] Comment on above: Chronic Kidney disea se, GFR = <60. Kidney failure, GFR = <15. The GFR estimate is not adjusted for extreme body surface area or acute process, nor has it been validated for women or ethnic groups other than and . GFR/1.73 sq M.predicted among blacks MDRD (S/P/Bld) [Vol rate/Area] 186 mL/min/{1.73_m2} ml/min/1.73s q.m [facility] GFR/1.73 sq M.predicted among non-blacks MDRD (S/P/Bld) [Vol rate/Area] 154 mL/min/{1.73_m2} ml/min/1.73s q.m [facility] Glucose post fast [Mass/Vol] 239 mg/dL High [facility] Comment on above: NORMAL <100 mg/dL PREDIABETES 101-126 mg/dL DIABETES 126 mg/dL or higher Interpretation and review of laboratory results Abnormal [facility] Potassium [Moles/Vol] 3.3 mmol/L Low [facility] Sodium [Moles/Vol] 135 mmol/L Low [facility] Urea nitrogen [Mass/Vol] 7 mg/dL [facility] CT CHEST WITHOUT CONTRASTon 10-11-2023 CT [...] cardiomegaly. Normal [facility] CT Chest WO contraston 10-10 IMPRESSION: Bilateral [...] infiltrates. Tiny right pleural effusion. Mild cardiomegaly. [facility] Rad[facility] Study observation (narrative) [facility] PhysicianPortal CT Chest WO contrastOrdered By: Holly Stern on 10-11-2023 Materia Work Phone: CT PE STUDYon 10-11-2023 CT [...] consolidation lung bases right greater than left. [place] to be inflammatory. 3. Small right pleural effusion slightly increased. Normal [facility] CT Pulmonary arteries for pu lmonary emboluson 10-11-2023 IMPRESSION: 1. No definite pulmonary artery embolus or thrombus although assessment of the distal vessels is limited as noted above. No evidence of right ventricular strain. 2. Worsening lung parikh with developing groundglass density in the upper and mid lungs, worsening consolidation lung bases right greater than left. [place] to be inflammatory. 3. Small right pleural [...] consolidation lung bases right greater than left. [place] to be inflammatory. 3. Small right pleural effusion slightly increased. [facility] Radiology Study observation (narrative) [facility] CT Pulmonary arteries for pu lmonary embolusOrdered By: Denny Fraser on 10-11-2023 [facility] Work Phone: D DIMERon 10-11-2023 D DIMER 1.05 ??g/ml Critically high <0.50 [facility] Comment on above: Result Comment: If r esult is greater than the cutoff value of 0.50 ??g/ml then the potential for PE or DVT exists. Other conditions exist which may cause a falsely elevated level. Please correlate clinically, including radiological findings and other clinical parameters. Result called to and read back by: EBONY PARRISH 10/11/2023 @ 16:24 by [facility] Performed By: #### D DIMER #### Testing performed at [facility] [address] [place], [place] [address] D-DIMER,QUANTITATIVEon 10-10 Fibrin D-dimer FEU (PPP) [Mass/Vol] 1.05 Critically high NINF [facility] Comment on above: If result is greater than the cutoff value of 0.50 g/ml then the potential for PE or DVT exists. Other conditions exist which may cause a falsely elevated level. Please correlate clinically, including radiological findings and other clinical parameters. Result called to and read back by: EBONY PARRISH 10/11/2023 @ 16:24 by [facility] Interpretation and review of laboratory results Abnormal [facility] ESRon 10-11-2023 ESR (Bld) [Velocity] 58 mm/h High 0-15 [facility] Comment on above: Performed By: #### C REACT, ESR ####Testing performed at [address] [address] L PNEUMOPHILIA AG URINEon L PNEUMOPHILIA AG URINE Negative Normal NEGATIVE [facility] Comment on above: Performed By: #### S PAGUT, LPAGUT ####Testing performed at [address] [address] [facility] AGon 07-2 0-2024 L. pneumophila 1 Ag IA Ql (U) Negative NEGATIVE [facility] MRSA SCREENon 10-11-2023 MRSA DNA JADYN+probe Ql (Unsp spec) Negative Normal NEGATIVE [facility] Comment on above: Performed By: #### M RSAST #### Testing performed at [address] [address] STAPH AUREUS SCREEN Negative Normal NEGATIVE [facility] Comment on above: Result Comment: TEST ING PERFORMED BY PCR Performed By: #### M RSAST #### Testing performed at [place] [id number] No Panel Informationon 10-10 [facility] PROCALCITONINon 10-11-2023 PROCALCITONIN 0.09 ng/mL 0.00 - 0.25 ng/mL [facility] Comment on above: PCT Interpretation Less than 0.10 ng/mL, antibiotic therapy strongly discouraged. 0.10-0.25 ng/mL, antibiotic therapy discouraged. 0.25-0.50 ng/mL, antibiotic therapy encouraged. Greater than 0.50 ng/mL, antibiotic therapy strongly encouraged. [facility] PROCALCITONIN 0.09 ng/mL Normal 0.00-0.25 [facility] Comment on above: Result Comment: PCT Interpretation Less than 0.10 ng/mL, antibiotic therapy strongly discouraged. 0.10-0.25 ng/mL, antibiotic therapy discouraged. 0.25-0.50 ng/mL, antibiotic therapy encouraged. Greater than 0.50 ng/mL, antibiotic therapy strongly encouraged. Performed By: #### U MAC, UMIC #### Testing performed at [address] [address] S PNEUMONIAE AG URINEon 09-22 S PNEUMONIAE AG URINE Negative Normal NEGATIVE [facility] Comment on above: Performed By: #### S PAGUT, LPAGUT ####Testing performed at [address] [address] SCREEN: MRSA ONLY, NARES (IS OLATION SCREEN)on 10-11-2023 MRSA isol Org specific cx Ql (Nose) Negative NEGATIVE [facility] STAPHYOCOCCUS AUREUS BY PCR Negative NEGATIVE [facility] Comment on above: TESTING PERFORMED BY PCR [facility] SEDIMENTATION RATE, AUTOMATE Don 10-11-2023 ESR (Bld) [Velocity] 58 mm/h [facility] Interpretation and review of laboratory results Abnormal [facility] STREP PNEUMONIAE ANTIGEN, UR INEon 10-11-2023 S. pneumoniae Ag Ql (U) Negative NEGATIVE [facility] BETA HCG, QUAL, BLOODon 09-21 HCG ( test) Ql Negative NEGATIVE [facility] BLOOD CULTUREon 10-10-2023 Bacteria identified Cx Nom (Bld) SPECIMEN DESCRIPTION PERIPHERAL BLOOD DRAW SPECIAL REQUESTS RT AC CULTURE NO GROWTH 5 DAYS REPORT STATUS 10/16/2023 * Result Note: FINAL * Normal [facility] Comment on above: Performed By: #### B LC #### Testing performed at [address] [address] Bacteria identified Cx Nom (Bld) SPECIMEN DESCRIPTION PERIPHERAL BLOOD DRAW SPECIAL REQUESTS LT H CULTURE NO GROWTH 5 DAYS REPORT STATUS 10/16/2023 * Result Note: FINAL * Normal [facility] Comment on above: Performed By: #### B LC ####Testing performed at [address] [place] [address] CBCon 10-10-2023 ABSOLUTE BAS 0.0 10*3/uL Normal 0.0-0.2 [facility] Comment on above: Performed By: #### C MPF, SHCGT, ACBC #### Testing performed at [address] [address] ABSOLUTE EOS 0.0 10*3/uL Normal 0.0-0.7 [facility] Comment on above: Performed By: #### C MPF, SHCGT, ACBC #### Testing performed at [address] [address] ABSOLUTE NEUTROPHIL COUNT 7.7 10*3/uL High 1.4-6.5 [facility] Comment on above: Performed By: #### C MPF, SHCGT, ACBC #### Testing performed at [address] [address] Basophils/100 WBC (Bld) 0.3 % Normal 0.0-2.0 [facility] Comment on above: Performed By: #### C MPF, SHCGT, ACBC #### Testing performed at [address] [place] [address] DTYPE AUTO DIFF Normal [facility] Comment on above: Performed By: #### C MPF, SHCGT, ACBC #### Testing performed at [address] [place] [address] Eosinophils/100 WBC (Bld) 0.1 % Normal 0.0-11.0 [facility] Comment on above: Performed By: #### C MPF, SHCGT, ACBC #### Testing performed at [address] [place] [address] Lymphocytes (Bld) [#/Vol] 1.2 10*3/uL Normal 1.2-3.4 [facility] Comment on above: Performed By: #### C MPF, SHCGT, ACBC #### Testing performed at [address] [address] Lymphocytes/100 WBC (Bld) 12.9 % Low 20.0-55.0 [facility] Comment on above: Performed By: #### C MPF, SHCTORIN, ACBC #### Testing performed at [address] [address] Monocytes (Bld) [#/Vol] 0.5 10*3/uL Normal 0.0-0.7 [facility] Comment on above: Performed By: #### C MPF, SHCGT, ACBC #### Testing performed at [address] [address] Monocytes/100 WBC (Bld) 5.0 % Normal 0.0-10.0 [facility] Comment on above: Performed By: #### C MPF, SHCGT, ACBC #### Testing performed at [address] [address] Neutrophils/100 WBC (Bld) 81.7 % High 37.0-75.0 [facility] Comment on above: Performed By: #### C MPF, SHCGT, ACBC #### Testing performed at [address] [place] [address] Erythrocyte distribution width (RBC) [Ratio] 14.7 % High 11.5-14.5 [facility] Comment on above: Performed By: #### C MPFED ACBC #### Testing performed at [address] [address] Hematocrit (Bld) [Volume fraction] 38.5 % Normal 36.0-48.0 [facility] Comment on above: Performed By: #### C MPFED ACBC #### Testing performed at [address] [address] Hemoglobin (Bld) [Mass/Vol] 12.9 g/dL Normal 12.0-16.0 [facility] Comment on above: Performed By: #### C MPFED ACBC #### Testing performed at [address] [address] MCH (RBC) [Entitic mass] 27.9 pg Normal 26.0-35.0 [facility] Comment on above: Performed By: #### C MPFED ACBC #### Testing performed at [address] [address] MCHC (RBC) [Mass/Vol] 33.6 g/dL Normal 27.0-37.0 [facility] Comment on above: Performed By: #### C MPFED ACBC #### Testing performed at [address] [address] MCV (RBC) [Entitic vol] 82.8 fL Normal 80.0-100.0 [facility] Comment on above: Performed By: #### C MPFED ACBC #### Testing performed at [address] [address] Platelet mean volume (Bld) [Entitic vol] 7.7 fL Normal 7.4-11.0 [facility] Comment on above: Performed By: #### C MPFED ACBC #### Testing performed at [address] [address] Platelets (Bld) [#/Vol] 264 10*3/uL Normal 130-400 [facility] Comment on above: Performed By: #### C MPFED ACBC #### Testing performed at [place] [address] [facility] [place]Note 2], [place] [address] RBC (Bld) [#/Vol] 4.64 10*6/uL Normal 4.0-5.4 [facility] Comment on above: Performed By: #### C CARLEY, ED, COLTON #### Testing performed at [address] [address] WBC (Bld) [#/Vol] 9.4 10*3/uL Normal 3.6-11.0 [facility] Comment on above: Performed By: #### C MELISSAF, ED, COLTON #### Testing performed at [address] [address] CBC, EDIF, PLATELETon 2023 ABSOLUTE BASOPHIL COUNT 0.0 10*3/uL 0.0 - 0.2 10*3/uL [facility] Basophils/100 WBC (Bld) 0.3 % 0.0 - 2.0 % [facility] Differential cell count method Nom (Bld) AUTO DIFF % [facility] Eosinophils (Bld) [#/Vol] 0.0 10*3/uL 0.0 - 0.7 10*3/uL [facility] Eosinophils/100 WBC (Bld) 0.1 % 0.0 - 11.0 % [facility] Erythrocyte distribution width (RBC) [Ratio] 14.7 % High 11.5 - 14.5 % [facility] Hematocrit (Bld) [Volume fraction] 38.5 % 36.0 - 48.0 % [facility] Hemoglobin (Bld) [Mass/Vol] 12.9 g/dL [facility] Interpretation and review of laboratory results Abnormal [facility] Lymphocytes (Bld) [#/Vol] 1.2 10*3/uL 1.2 - 3.4 10*3/uL [facility] Lymphocytes/100 WBC (Bld) 12.9 % Low 20.0 - 55.0 % [facility] MCH (RBC) [Entitic mass] 27.9 pg 26.0 - 35.0 PG [facility] MCHC (RBC) [Mass/Vol] 33.6 g/dL [facility] MCV (RBC) [Entitic vol] 82.8 fL [facility] Monocytes (Bld) [#/Vol] 0.5 10*3/uL 0.0 - 0.7 10*3/uL [facility] Monocytes/100 WBC (Bld) 5.0 % 0.0 - 10.0 % [facility] Neutrophils (Bld) [#/Vol] 7.7 10*3/uL High 1.4 - 6.5 10*3/uL [facility] Neutrophils/100 WBC (Bld) 81.7 % High 37.0 - 75.0 % [facility] Platelet mean volume (Bld) [Entitic vol] 7.7 fL [facility] Platelets (Bld) [#/Vol] 264 10*3/uL 130 - 400 10*3/uL [facility] RBC (Bld) [#/Vol] 4.64 10*6/uL 4.0 - 5.4 10*6/uL [facility] WBC (Bld) [#/Vol] 9.4 10*3/uL 3.6 - 11.0 10*3/uL [facility] CMP FASTINGon 10-10-2023 A:G RATIO 1.3 RATIO Normal [facility] Comment on above: Performed By: #### C MPF, SHARRIGT, ACBC ####Testing performed at [address] [address] ALBUMIN 4.0 G/dl Normal 3.5-5.0 [facility] Comment on above: Performed By: #### C MPF, SHCGT, ACBC ####Testing performed at [address] [address] ALP [Catalytic activity/Vol] 77 U/L Normal 38-126 [facility] Comment on above: Performed By: #### C MPF, SHCGT, ACBC ####Testing performed at [address] [address] ALT [Catalytic activity/Vol] 24 U/L Normal <35 [facility] Comment on above: Performed By: #### C MPF, SHCGT, ACBC ####Testing performed at [address] [address] AST [Catalytic activity/Vol] 24 U/L Normal 14-36 [facility] Comment on above: Performed By: #### C ED HOWE ACBC ####Testing performed at [address] [address] Bilirubin [Mass/Vol] 0.3 mg/dL Normal 0.2-1.3 [facility] Comment on above: Performed By: #### C ED HOWE ACBC ####Testing performed at [address] [address] Calcium [Mass/Vol] 8.6 mg/dL Normal 8.4-10.2 [facility] Comment on above: Performed By: #### C ED HOWE ACANTOLIN ####Testing performed at [address] [address] Chloride [Moles/Vol] 104 mmol/L Normal 98-107 [facility] Comment on above: Result Comment: Klaus baptiste note: Triglyceride levels of 600mg/dL or higher may positively bias chloride results by approximately 2.1 mmol Performed By: #### C ED HOWE ACBC ####Testing performed at [address] [address] CO2 [Moles/Vol] 22 mmol/L Normal 22-30 [facility] Comment on above: Performed By: #### C ED HOWE ACBC ####Testing performed at [address] [address] Creatinine [Mass/Vol] 0.58 mg/dL Low 0.70-1.20 [facility] Comment on above: Performed By: #### C ED HOWE ACBC ####Testing performed at [address] [address] EST. GFR, 157 ml/min/1.73sq.m [facility] Comment on above: Performed By: #### C ED HOWE ACBC ####Testing performed at [address] [address] EST. GFR,Non 130 ml/min/1.73sq.m [facility] Comment on above: Performed By: #### C ED HOWE ACBC ####Testing performed at [address] [address] GFR Information Average GFR for 30-3 9 years old = 107. Normal [facility] Comment on above: Result Comment: Academic Tutor bentley Kidney disease, GFR = <60. Kidney failure, GFR = <15. The GFR estimate is not adjusted for extreme body surface area or acute process, nor has it been validated for women or ethnic groups other than and . Performed By: #### C MPFED, ACBC ####Testing performed at [place] [id number] Glucose [Mass/Vol] 126 mg/dL High 70-100 [facility] Comment on above: Result Comment: NORMAL <100 mg/dL PREDIABETES 101-126 mg/dL DIABETES 126 mg/dL or higher Performed By: #### C MPFED, ACBC ####Testing performed at [place] [id number] Potassium [Moles/Vol] 3.4 mmol/L Low 3.5-5.1 [facility] Comment on above: Performed By: #### C MPFED, ACBC ####Testing performed at [address] [address] Protein [Mass/Vol] 7.2 g/dL Normal 6.3-8.2 [facility] Comment on above: Performed By: #### C MPFED, ACBC ####Testing performed at [address] [address] Sodium [Moles/Vol] 134 mmol/L Low 137-145 [facility] Comment on above: Performed By: #### C MPF SHCTORIN, ACBC ####Testing performed at [address] [address] Urea nitrogen [Mass/Vol] 7 mg/dL Normal 7-20 [facility] Comment on above: Performed By: #### C MPF SHCGT, ACBC ####Testing performed at [address] [address] COMPREHENSIVE METABOLIC PANE Nagi 10-10-2023 Albumin [Mass/Vol] 4.0 G/dl 3.5 - 5.0 G/dl [facility] Albumin/Globulin [Mass ratio] 1.3 {ratio} RATIO [facility] ALP [Catalytic activity/Vol] 77 U/L [facility] ALT [Catalytic activity/Vol] 24 U/L NINF [facility] AST [Catalytic activity/Vol] 24 U/L [facility] Bilirubin [Mass/Vol] 0.3 mg/dL [facility] Calcium [Mass/Vol] 8.6 mg/dL [facility] Chloride [Moles/Vol] 104 mmol/L [facility] Comment on above: Please note: Triglyc eride levels of 600mg/dL or higher may positively bias chloride results by approximately 2.1 mmol CO2 [Moles/Vol] 22 mmol/L [facility] Creatinine [Mass/Vol] 0.58 mg/dL Low [facility] GFR COMMENT Average GFR for 30-3 9 years old = 107. [facility] Comment on above: Chronic Kidney disea se, GFR = <60. Kidney failure, GFR = <15. The GFR estimate is not adjusted for extreme body surface area or acute process, nor has it been validated for women or ethnic groups other than and . GFR/1.73 sq M.predicted among blacks MDRD (S/P/Bld) [Vol rate/Area] 157 mL/min/{1.73_m2} ml/min/1.73s q.m [facility] GFR/1.73 sq M.predicted among non-blacks MDRD (S/P/Bld) [Vol rate/Area] 130 mL/min/{1.73_m2} ml/min/1.73s q.m [facility] Glucose post fast [Mass/Vol] 126 mg/dL High [facility] Comment on above: NORMAL <100 mg/dL PREDIABETES 101-126 mg/dL DIABETES 126 mg/dL or higher Interpretation and review of laboratory results Abnormal [facility] Potassium [Moles/Vol] 3.4 mmol/L Low [facility] Protein [Mass/Vol] 7.2 g/dL [facility] Sodium [Moles/Vol] 134 mmol/L Low [facility] Urea nitrogen [Mass/Vol] 7 mg/dL [facility] HCG ( test) Qlon [facility] INFLUENZA A AND B, PCRon FLUAV and FLUBV Ag IF Nom (Unsp spec) Negative NEGATIVE [facility] FLUBV Ag IA Ql (Unsp spec) Negative NEGATIVE [facility] Comment on above: TESTING PERFORMED BY JADYN [facility] LACTATE, BLOODon 10-10-2023 Lactate [Moles/Vol] 2.0 mmol/L 0.7 - 2. 0 mmol/L [facility] LACTATE,BLOODon 10-10-2023 Lactate [Moles/Vol] 2.0 mmol/L Normal 0.7-2.0 [facility] Comment on above: Performed By: #### C OVID #### Testing performed at [place] [id number] NOVEL CORONAVIRUSon 10-10-19 24 NARRATIVE This test was perfor med using isothermal JADYN and has been approved as Emergency Use Authorization (EUA) for the qualitative detection [id number] nucleic acid. Normal [facility] Comment on above: Performed By: #### C OVID #### Testing performed at [place] [id number] SARS-CoV-2 (COVID-19) RNA JADYN+probe Ql (Unsp spec) Not detected Normal NOT DETECTED [facility] Comment on above: Result Comment: Nega tive [...] #### C OVID #### Testing performed at [place] [id number] NOVEL CORONAVIRUS LAB 1 - NA SOPHARYNGEALon 10-10-2023 NARRATIVE -1 This test was perfor med using isothermal JADYN and has been approved as Emergency Use Authorization (EUA) for the qualitative detection [id number] nucleic acid. [facility] SARS-CoV-2 (COVID-19) RNA JADYN+probe Ql (Unsp spec) Not detected NOT DETECTED [facility] Comment on above: Negative results [...] patient is critically ill or clinically deteriorating. [facility] RAPID FLU Aon 10-10-2023 INFLUENZA A Negative Normal NEGATIVE [facility] Comment on above: Performed By: #### R FLUAB ####Testing performed at [place] [id number] INFLUENZA B Negative Normal NEGATIVE [facility] Comment on above: Result Comment: TEST ING PERFORMED BY JADYN Performed By: #### R FLUAB ####Testing performed at [place] [id number] SERUM HCG QUALon 10-10-2023 SERUM BETA HCG,QUAL Negative Normal NEGATIVE [facility] Comment on above: Performed By: #### C MPF, SHCGT, ACBC ####Testing performed at [place] [id number] XR CHEST PA AND LATERAL 2 EWSon [...] cardiomegaly. Normal [facility] XR Chest PA and Lateralon IMPRESSION: 1. [...] in the lung bases. 2. Moderate cardiomegaly. [facility] Radiology Study observation (narrative) [facility] XR Chest PA and LateralOrder ed By: Mansoor Ambrose on 10-10-2023 [facility] Work Phone: Basic metabolic 2000 panelon 01-28-2023 Anion gap [Moles/Vol] 13 mmol/L Normal 10-20 [facility] Comment on above: Performed By: #### 2 4321-2 #### DEION MASCORRO ([id number]) [facility]) [facility] [place] [address] Calcium [Mass/Vol] 8.8 mg/dL Normal 8.6-10.3 [facility] Comment on above: Performed By: #### 2 4321-2 #### DEION MASCORRO ([id number]) [facility] ([facility]) [facility] [place] [address] Chloride [Moles/Vol] 104 mmol/L Normal 98-107 [facility] Comment on above: Performed By: #### 2 4321-2 #### DEION MASCORRO ([id number]) [facility] ([facility]) [address] [place] [address] CO2 [Moles/Vol] 26 mmol/L Normal 21-32 [facility] Comment on above: Performed By: #### 2 4321-2 #### DEION MASCORRO ([id number]) [facility] ([facility]) [address] [place] [address] Creatinine [Mass/Vol] 0.58 mg/dL Normal 0.50-1.05 [facility] Comment on above: Performed By: #### 2 4321-2 #### EDION MASCORRO ([id number]) [facility] ([facility]) [address] [place] [address] GFR/1.73 sq M.predicted MDRD (S/P/Bld) [Vol rate/Area] mL/min/{1.73_m2} Normal >60 [facility] Comment on above: Result Comment: Calc ulations of estimated GFR are performed using the 2020 CKD-EPI Study Refit equation without the race variable for the IDMS-Traceable creatinine methods. https://jasn.asnjournals.org/content/early//ASN.75563 [address]07 Performed By: #### 2 4321-2 #### DEION MASCORRO ([id number]) [facility] ([facility]) [address] [place] [address] Glucose [Mass/Vol] 78 mg/dL Normal 74-99 [facility] Comment on above: Performed By: #### 2 4321-2 #### DEION MASCORRO ([id number]) [facility] ([facility]) [address] [place] [address] Potassium [Moles/Vol] 4.2 mmol/L Normal 3.5-5.3 [facility] Comment on above: Performed By: #### 2 4321-2 #### DEION MASCORRO ([id number]) [facility] ([facility]) [address] [place] [address] Sodium [Moles/Vol] 139 mmol/L Normal 136-145 [facility] Comment on above: Performed By: #### 2 4321-2 #### DEION MASCORRO ([id number]) [facility] ([facility]) [address] [place] [address] Urea nitrogen [Mass/Vol] 14 mg/dL Normal 6-23 [facility] Comment on above: Performed By: #### 2 4321-2 #### DEION MASCORRO ([id number]) [facility] ([facility]) [address] [place] [address] CBC W Auto Differential pane l (Bld)on 01-28-2023 Basophils (Bld) [#/Vol] 0.05 x10*3/uL Normal 0.00-0.10 [facility] Comment on above: Performed By: #### 5 7021-8 #### DEION MASCORRO ([id number]) [facility] ([facility]) [address] [place] [address] Basophils/100 WBC (Bld) 0.4 % Normal 0.0-2.0 [facility] Comment on above: Performed By: #### 5 7021-8 #### DEION MASCORRO ([id number]) [facility] ([facility]) [address] [place] [address] Eosinophils (Bld) [#/Vol] 0.52 x10*3/uL Normal 0.00-0.70 [facility] Comment on above: Performed By: #### 5 7021-8 #### DEION MASCORRO ([id number]) [facility] ([facility]) [address] [place] [address] Eosinophils/100 WBC (Bld) 4.0 % Normal 0.0-6.0 [facility] Comment on above: Performed By: #### 5 7021-8 #### DEION MASCORRO ([id number]) [facility] ([facility]) [address] [place] [address] Erythrocyte distribution width (RBC) [Ratio] 16.1 % High 11.5-14.5 [facility] Comment on above: Performed By: #### 5 7021-8 #### DEION MASCORRO ([id number]) [facility] ([facility]) [address] [place] [address] Hematocrit (Bld) [Volume fraction] 42.9 % Normal 36.0-46.0 [facility] Comment on above: Performed By: #### 5 7021-8 #### DEION MASCORRO ([id number]) [facility] ([facility]) [address] [place] [address] Hemoglobin (Bld) [Mass/Vol] 13.2 g/dL Normal 12.0-16.0 [facility] Comment on above: Performed By: #### 5 7021-8 #### DEION MASCORRO ([id number]) [facility] ([facility]) [address] [place] [address] Immature granulocytes (Bld) [#/Vol] 0.06 x10*3/uL Normal 0.00-0.70 [facility] Comment on above: Performed By: #### 5 7021-8 #### DEION MASCORRO ([id number]) [facility] ([facility]) [address] [place] [address] Immature granulocytes/100 WBC (Bld) 0.5 % Normal 0.0-0.9 [facility] Comment on above: Result Comment: Dottie ture Granulocyte Count (IG) includes promyelocytes, myelocytes and metamyelocytes but does not include bands. Percent differential counts (%) should be interpreted in the context of the absolute cell counts (cells/UL). Performed By: #### 5 7021-8 #### DEION MASCORRO ([id number]) [facility] ([facility]) [address] [place] [address] Lymphocytes (Bld) [#/Vol] 4.25 x10*3/uL Normal 1.20-4.80 [facility] Comment on above: Performed By: #### 5 7021-8 #### DEION MASCORRO ([id number]) [facility] ([facility]) [address] [place] [address] Lymphocytes/100 WBC (Bld) 32.4 % Normal 13.0-44.0 [facility] Comment on above: Performed By: #### 5 7021-8 #### DEION MASCORRO ([id number]) [facility] ([facility]) [address] [place] [address] MCH (RBC) [Entitic mass] 26.1 pg Normal 26.0-34.0 [facility] Comment on above: Performed By: #### 5 7021-8 #### DEION MASCORRO ([id number]) [facility] ([facility]) [address] [place] [address] 77174 MCHC (RBC) [Mass/Vol] 30.8 g/dL Low 32.0-36.0 [facility] Comment on above: Performed By: #### 5 7021-8 #### DEION MASCORRO ([id number]) [facility] ([facility]) [address] [place] [address] 88564 MCV (RBC) [Entitic vol] 85 fL Normal 80-100 [facility] Comment on above: Performed By: #### 5 7021-8 #### DEION MASCORRO ([id number]) [facility] ([facility]) [address] [place] [address] 81375 Monocytes (Bld) [#/Vol] 0.64 x10*3/uL Normal 0.10-1.00 [facility] Comment on above: Performed By: #### 5 7021-8 #### DEION MASCORRO ([id number]) [facility] ([facility]) [address] [place] [address] 84728 Monocytes/100 WBC (Bld) 4.9 % Normal 2.0-10.0 [facility] Comment on above: Performed By: #### 5 7021-8 #### DEION MASCORRO ([id number]) [facility] ([facility]) [address] [place] [address] 40175 Neutrophils (Bld) [#/Vol] 7.58 x10*3/uL Normal 1.20-7.70 [facility] Comment on above: Result Comment: Perc ent differential counts (%) should be interpreted in the context of the absolute cell counts (cells/uL). Performed By: #### 5 7021-8 #### DEION MASCORRO ([id number]) [facility] ([facility]) [address] [place] [address] 86635 Neutrophils/100 WBC (Bld) 57.8 % Normal 40.0-80.0 [facility] Comment on above: Performed By: #### 5 7021-8 #### DEION MASCORRO ([id number]) [facility] ([facility]) [address] [place] [address] 75573 Nucleated RBC/100 WBC (Bld) [Ratio] 0.0 /100 WBCs Normal 0.0-0.0 [facility] Comment on above: Performed By: #### 5 7021-8 #### DEION MASCORRO ([id number]) [facility] ([facility]) [address] [place] [address] 62843 Platelets (Bld) [#/Vol] 405 x10*3/uL Normal 150-450 [facility] Comment on above: Performed By: #### 5 7021-8 #### DEION MASCORRO ([id number]) [facility] ([facility]) [address] [place] [address] 09905 RBC (Bld) [#/Vol] 5.05 x10*6/uL Normal 4.00-5.20 [facility] Comment on above: Performed By: #### 5 7021-8 #### DEION MASCORRO ([id number]) [facility] ([facility]) [address] [place] [address] 14267 WBC (Bld) [#/Vol] 13.1 x10*3/uL High 4.4-11.3 [facility] Comment on above: Performed By: #### 5 7021-8 #### DEION MASCORRO ([id number]) [facility] ([facility]) [address] [place] [address] 14097 Calcidiolon 01-28-2023 25-hydroxyvitamin D3 [Mass/Vol] 27 ng/mL Low 30-100 [facility] Comment on above: Order Comment: Defic iency: < 20 ng/ml Insufficiency: 20-29 ng/ml Sufficiency: 30-100 ng/ml This assay accurately quantifies the sum of Vitamin D3, 25-Hydroxy and Vitamin D2,25-Hydroxy. Performed By: #### 1 989-3 #### DEION MASCORRO ([id number]) [facility] ([facility]) [facility] [place] [address] Lipid 1996 panelon 3 Cholesterol [Mass/Vol] 216 mg/dL High 0-199 [facility] Comment on above: Result Comment: Age [...] By: #### 2 4331-1 #### DEION MASCORRO ([id number]) [facility] ([facility]) [facility] [place] [address] Cholesterol in HDL [Mass/Vol] 62.0 mg/dL Normal [facility] Comment on above: Result Comment: Age Very Low Low Normal High 0-19 Y < 35 < 40 40-45 ---- 20-24 Y ---- < 40 >45 ---- >24 Y ---- < 40 40-60 >60 Performed By: #### 2 4331-1 #### DEION MASCORRO ([id number]) [facility] ([facility]) [facility] [place] [address] Cholesterol in LDL [Mass/Vol] 108 mg/dL High <=99 [facility] Comment on above: Result Comment: Near Borderline AGE Desirable Optimal High High Very High 0-19 Y 0 - 109 --- 110-129 >/= 130 ---- 20-24 Y 0 - 119 --- 120-159 >/= 160 ---- >24 Y 0 - 99 100-129 130-159 160-189 >/=190 Performed By: #### 2 4331-1 #### DEION MASCORRO ([id number]) [facility] ([facility]) [address] [place] [address] 77822 Cholesterol in VLDL [Mass/Vol] 46 mg/dL High 0-40 [facility] Comment on above: Performed By: #### 2 4331-1 #### DEION MASCORRO ([id number]) [facility] ([facility]) [address] [place] [address] 18438 CHOLESTEROL/HDL RATIO 3.5 Normal [facility] Comment on above: Result Comment: Ref Values Desirable < 3.4 High Risk > 5.0 Performed By: #### 2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 Normal [facility] Comment on above: Result Comment: INTE RPRETATIVE [...] assays. Performed By: #### R UBIG #### [facility] [address] [place] [address] SYPHILIS SCREENING WITH REFL EXon 11-22-2021 SYPHILIS TOTAL AB Non-Reactive Normal NONREACTIVE [facility] Comment on above: Result Comment: No s ignificant level of Treponema pallidum antibody detected. Repeat testing in 2 to 4 weeks may be considered if early infection or incubating syphilis infection is suspected. Performed By: #### S YPHR #### [facility] [address] [place], [place] [id number] TYPE + SCREENon 11-22-2021 ABO TYPE O Normal [facility] Comment on above: Performed By: #### T +S #### [facility] [address] [place] [address] RH TYPE Positive Normal [facility] Comment on above: Performed By: #### T +S #### [facility] [address] [place] [address] CBC AND DIFFERENTIALon 11-21 Basophils (Bld) [#/Vol] 0.00 10*3/uL Normal 0.00 - 0.10 [facility] Comment on above: Performed By: #### C BCDF #### [address] [address] Basophils/100 WBC (Bld) 0.4 % Normal 0.0 - 2.0 [facility] Comment on above: Performed By: #### C BCDF #### [address] [address] Eosinophils (Bld) [#/Vol] 0.30 10*3/uL Normal 0.00 - 0.70 [facility] Comment on above: Performed By: #### C BCDF #### [address] [address] Eosinophils/100 WBC (Bld) 2.4 % Normal 0.0 - 6.0 [facility] Comment on above: Performed By: #### C BCDF #### [address] [address] Erythrocyte distribution width (RBC) [Ratio] 14.5 % Normal 11.5 - 14.5 [facility] Comment on above: Performed By: #### C BCDF #### [address] [address] Hematocrit (Bld) [Volume fraction] 39.5 % Normal 36.0 - 46.0 [facility] Comment on above: Performed By: #### C BCDF #### [address] [address] Hemoglobin (Bld) [Mass/Vol] 12.8 g/dL Normal 12.0 - 16.0 [facility] Comment on above: Performed By: #### C BCDF #### [address] [address] Lymphocytes (Bld) [#/Vol] 3.30 10*3/uL Normal 1.20 - 4.80 [facility] Comment on above: Performed By: #### C BCDF #### [address] [address] Lymphocytes/100 WBC (Bld) 24.7 % Normal 13.0 - 44.0 [facility] Comment on above: Performed By: #### C BCDF #### [address] [address] MCHC (RBC) [Mass/Vol] 32.5 g/dL Normal 32.0 - 36.0 [facility] Comment on above: Performed By: #### C BCDF #### [address] [address] MCV (RBC) [Entitic vol] 80 fL Normal 80 - 100 [facility] Comment on above: Performed By: #### C BCDF #### [address] [address] Monocytes (Bld) [#/Vol] 0.90 10*3/uL Normal 0.10 - 1.00 [facility] Comment on above: Performed By: #### C BCDF #### [address] [address] Monocytes/100 WBC (Bld) 6.5 % Normal 2.0 - 10.0 [facility] Comment on above: Performed By: #### C BCDF #### [address] [address] Neutrophils (Bld) [#/Vol] 9.00 10*3/uL High 1.20 - 7.70 [facility] Comment on above: Result Comment: Perc ent differential counts (%) should be interpreted in the context of the absolute cell counts (cells/L). Performed By: #### C BCDF #### [address] [address] Neutrophils/100 WBC (Bld) 66.0 % Normal 40.0 - 80.0 [facility] Comment on above: Performed By: #### C BCDF #### [address] [address] Platelets (Bld) [#/Vol] 366 10*3/uL Normal 150 - 450 [facility] Comment on above: Performed By: #### C BCDF #### [address] [address] RBC 4.94 x10E12/L Normal 4.00 - 5.20 [facility] Comment on above: Performed By: #### C BCDF #### [address] [address] WBC (Bld) [#/Vol] 13.6 10*3/uL High 4.4 - 11.3 [facility] Comment on above: Performed By: #### C BCDF #### [address] [address] Complete Blood Count + Diffe jennifer 11-21-2021 Basophils/100 WBC (Bld) 0.4 % 0.0 - 2.0 [employer] Work Phone: Erythrocyte distribution width (RBC) [Ratio] 14.5 % See Below [employer] Work Phone: Comment on above: Reference Range: 11. 5 - 14.5 Hematocrit (Bld) [Volume fraction] 39.5 % See Below [employer] Work Phone: Comment on above: Reference Range: 36. 0 - 46.0 Hemoglobin (Bld) [Mass/Vol] 12.8 g/dL See Below [employer] Work Phone: Comment on above: Reference Range: 12. 0 - 16.0 Lymphocytes/100 WBC (Bld) 24.7 % See Below [employer] [facility] [employer] Work Phone: [phone] Comment on above: Reference Range: 13. 0 - 44.0 MCHC (RBC) [Mass/Vol] 32.5 g/dL See Below [facility] [employer] Work Phone: Comment on above: Reference Range: 32. 0 - 36.0 MCV (RBC) [Entitic vol] 80 fL 80 - 100 [employer] Work Phone: [phone] Monocytes/100 WBC (Bld) 6.5 % 2.0 - 10.0 [employer] [facility] [employer] Work Phone: [phone] Neutrophils/100 WBC (Bld) 66.0 % See Below [employer] [facility] [employer] Work Phone: Comment on above: Reference Range: 40. 0 - 80.0 Platelets (Bld) [#/Vol] 366 10*3/uL 150 - 450 [employer] [facility] [employer] Work Phone: [phone] RBC (Bld) [#/Vol] 4.94 {x10E12/L} See Below [facility] Work Phone: [phone] Comment on above: Reference Range: 4.0 0 - 5.20 WBC (Bld) [#/Vol] 13.6 10*3/uL above high threshold 4.4 - 11.3 [employer] [facility] [employer] Work Phone: [phone] Complete Blood Count + Differential 0.00 {x10E9/L} See Below [facility] SystemSeniorLiving.NetAdam [place] [address] [employer] Work Phone: Comment on above: Reference Range: 0.0 0 - 0.10 Complete Blood Count + Differential 0.30 {x10E9/L} See Below [facility] SystemO[facility] Media[facility] [employer] Work Phone: Comment on above: Reference Range: 0.0 0 - 0.70 Complete Blood Count + Differential 0.90 {x10E9/L} See Below [facility] SystemOzy MediaSonya [place] [address] [employer] Work Phone: Comment on above: Reference Range: 0.1 0 - 1.00 Complete Blood Count + Differential 3.30 {x10E9/L} See Below [facility] SystemOzy MediaSonya [place] [address] [employer] Work Phone: Comment on above: Reference Range: 1.2 0 - 4.80 Complete Blood Count + Differential 9.00 {x10E9/L} above high threshold See Below [facility] SystemO[facility] MediaSonya [place] [address] [employer] Work Phone: Comment on above: Reference Range: 1.2 0 - 7.70 Percent differential counts (%) should be interpreted in the context of the absolute cell counts (cells/L). Complete Blood Count + Differential 2.4 % 0.0 - 6.0 [place] [address] [employer] Work Phone: HEPATITIS B SURFACE AGon Lab Specimen Source Normal [facility] Comment on above: Performed By: #### H BSAG #### [facility] [address] [place] [address] Performed By: #### H IV #### [facility] [address] [place] [address] HIV 1/2 ANTIGEN/ANTIBODY SCR EEN WITH REFLEX TO CONFIRMATIONon 11-21-2021 HIV 1+2 Ab Qn (S) Non-Reactive See Below [facility] Ste[facility] StudioSony[place] [address] [employer] Work Phone: Comment on above: SOURCE: Reference Ra nge: NONREACTIVE HIV Ag/Ab screen is performed using the Siemens Giftology HIV Ag/Ab Combo assay which detects the presence of HIV p24 antigen as well as antibodies to HIV-1 (Group M and O) and HIV-2..No laboratory evidence of HIV infection. If acute HIV infection is suspected, consider testing for HIV RNA by PCR (viral load). Hepatitis B Surface Antigeno n 11-21-2021 Hepatitis B Surface Antigen Non-Reactive See Below [facility] Work Phone: Comment on above: SOURCE: Reference Ra nge: NONREACTIVE Biotin interference may cause falsely decreased results. Patients taking a Biotin dose of up to 5 mg/day should refrain from taking Biotin for 24 hours before sample collection. Providers may contact their local laboratory for further information. IO HCG, Urine Test on 11-21-2021 HCG ( test) Ql (U) Positive [facility] Work Phone: LMPon 11-21-2021 Last menstrual period start date [id number] [facility] [employer] Work Phone: Laboratory - Blood bankon ABO group Nom (Bld) O Women [facility] [employer] Work Phone: Blood group antibody screen Ql Negative [facility] [employer] Work Phone: Rh immune globulin screen (Bld) [Interp] Positive [facility] [employer] Work Phone: Laboratory - Chemistry and C hemistry - challengeon 11-21-2021 TSH Qn 1.46 m[IU]/L See Below [facility] SystemSeniorLiving.NetFitzgibbon HospitalM[facility] Work Phone: Comment on above: Reference Range: 0.4 4 - 3.98 TSH testing is performed using different testing methodology at [facility] than at other [facility]. Direct result comparisons should only be made within the same method. ELECTRONICS TECH - Office Visiton 10-24 ELECTRONICS TECH - Office Visit Diagnoses/Problems Assessed 8 weeks [...] TABS Vitals Vital Signs Recorded: 21Nov2021 01:23PM Ceyecnon582 Kicxytvua77 Height5 ft 4 in Rzreut844 lb BMI Extppmtuks49.23 kg/m2 BSA Calculated2.14 [id number] Physical Exam Constitutional: Healthy-appearing in no physical [...] Nov 21 2021 1:41PM EST (Author) Normal [employer] Rubella IgG Antibodyon 11-21 Rubella virus IgG IA Ql Negative [employer] Phone: Comment on above: INTERPRETATIVE COMME NT [...] IgG+IgM IA Ql (S) Non-Reactive See Below [facility] [address] Work Phone: Comment on above: Reference Range: NON REACTIVENo significant level of Treponema pallidum antibody detected. Repeat testing in 2 to 4 weeks may be considered if early infection or incubating syphilis infection is suspected. TSH WITH REFLEX TO FREE T4 I F ABNORMALon 11-21-2021 TSH Qn 1.46 m[IU]/L Normal 0.44 - 3.98 [facility] Comment on above: Result Comment: TSH testing is performed using different testing methodology at [facility] than at other [facility]. Direct result comparisons should only be made within the same method. Performed By: #### T HYDS #### [place] [address] ANES Lucho 12-21-2018 ANES POST HNO ID: [id number] Author: Mayank Hall Service: Anesthesiology Author Type: [...] 0900 12/21/18 0915 Resp: 16 16 16 12/21/18 0835 12/21/18 0845 12/21/18 0900 12/21/18 [...] 21, 2018 TIME: 10:24 AM PAGER/CONTACT #: [phone] [facility] ANES POST HNO ID: [id number] Author: Inocencia Fall Service: Anesthesiology Author Type: [...] 0900 12/21/18 0915 Resp: 16 16 16 12/21/18 0835 12/21/18 0845 12/21/18 0900 12/21/18 [...] 21, 2018 TIME: 10:36 AM PAGER/CONTACT #: [phone] [facility] ANES PREOPon 12-21-2018 ANES PREOP HNO ID: [id number] Author: Inocencia Fall Service: Anesthesiology Author Type: [...] disorder (HCC) - Childhood asthma - Endometriosis PAVER OPERATOR: [facility] - GERD (gastroesophageal reflux disease) - Iron [...] December 21, 2018 TIME: 7:17 AM CSN: [id number] [facility] BRIEF OP NOTon 12-21-2018 BRIEF OP NOT HNO ID: [id number] Author: Jessica Reardon DPM Service: Podiatry Author Type: Resident Type: Brief Op Note Filed: 12/21/2018 8:28 AM Note Text: -------- Attestation signed by Sparkle Dave at 12/22/2018 9:35 PM I was present and agree with resident brief op note Sparkle Dave DPM -------- BRIEF OP NOTE LOG ID: [id number] Surgery/Procedure Date: 12/21/2018 Incision/Procedure Start Time: 7:59 AM Incision Close/Procedure End Time: 8:22 AM Surgeon(s)/Proceduralist (s) and Cytology Laboratory Manager(s): Surgeon(s) and Role: * Sparkle Dave - [...] 21, 2018 TIME: 8:25 AM PAGER/CONTACT #: Normal [facility] HISTORY PHYSICALon 9 HISTORY PHYSICAL HNO ID: [id number] Author: Sparkle Dave Service: Podiatry Author Type: [...] disorder (HCC) - Childhood asthma - Endometriosis PAVER OPERATOR: [facility] - GERD (gastroesophageal reflux disease) - Iron [...] Prophylaxis/Anticoagulan ts 12/21/18 0700 pneumatic compression stockings (ma,nj) SIGNATURE: Sparkle Dave DPM PATIENT NAME: Anai Webber DATE: December 21, 2018 TIME: 7:02 AM PAGER/CONTACT #: [phone] [facility] OPERATIVE NOon 12-21-2018 OPERATIVE NO HNO ID: [id number] Author: Sparkle Dave Service: Podiatry Author Type: Physician Type: Operative Report Filed: 12/22/2018 9:32 PM Note Text: OPERATIVE/PROCEDURE REPORT LOG ID: [id number] SURGERY/PROCEDURE DATE: 12/21/2018 INCISION/PROCEDURE START TIME: 7:59 AM INCISION CLOSE/PROCEDURE END TIME: 8:22 AM SURGEON(S)/PROCEDURALIST (S) AND NUCLEAR PLANT TECHNICAL ADVISOR(S): Surgeon(s) and Role: * Sparkle Dave - Primary * Jessica Reardon DPM - Resident - Assisting Physician Cytology Laboratory Manager: Yg Ernandez (Pa) (Jeremi) Barrie SURGERY/PROCEDURE(S): co2 laser of benign skin lesion, left foot ANESTHESIA: General SURGERY/PROCEDURE DETAILS: patient is a 23 year old female who has chronic skin lesion to left heel. This has been present for long duration. She has seen a gang drill press operator who was treating the lesion weekly with debridement and salicyclic acid. Patient states she was seeing the gang drill press operator weekly for over 8 weeks but no [...] 21, 2018 TIME: 11:05 AM PAGER/CONTACT #: [facility] PLAN OF CAREon 12-21-2018 PLAN OF CARE HNO ID: [id number] Author: Abbey Dotson (Isentio) Service: Pharmacy Author Type: ? Type: Plan of Care Filed: 12/21/2018 9:38 AM Note Text: VEHICLE LEASING AND RENTAL MANAGER BEDSIDE DELIVERY SURVEY 1. Patient to use [facility] Bedside Delivery - YES Insurance Information as follows: 2. Insurance card on file - YES 3. Credit card for payment - YES PHARMACY BEDSIDE DELIVERY SERVICE Patient Name: Anai Webber The marked outpatient medications were Filled at: [place] and delivered to the patient's bedside to pharmacy hand picker Medication List START taking these medications traMADol [...] (7) Dspk Commonly known as: LaMICtal Starter (Raymond) Kit Take 25 mg by mouth once [...] or your Primary Care Provider. Abbey Dotson (Isentio) PAGER: [phone] December 21, 2018 9:37 AM [facility] PROGRESSon 12-21-2018 PROGRESS HNO ID: [id number] Author: Jessica Reardon DPM Service: Podiatry Author Type: Resident Type: Progress Notes Filed: 12/21/2018 8:28 AM Note Text: -------- Attestation signed by Sparkle [place] at 12/22/2018 9:35 PM I was present [...] December 21, 2018 TIME: 6:57 AM PAGER: [facility] PT EDon 12-21-2018 PT ED HNO ID: [id number] Author: Matthew ValentinoRn) JOANIE Anthony Service: Nursing Author Type: Registered [...] Signed By: Matthew Anthony RN In Department: [facility] SURGERY [facility] PT ED HNO ID: [id number] Author: Matthew (Rn) JOANIE Anthony Service: Nursing [...] Signed By: Matthew Anthony RN In Department: [facility] SURGERY [facility] SURGICAL PATHOLOGYon 019 SURGICAL PATHOLOGY Specimen originated from [facility] Specimen #: [id number] Submitting Physician: SPARKLE DAVE DPM __ FINAL [...] in one cassette. [facility] [facility], [address] [place] [address] 12/21/2018 5:09:51 PM Date of Report: 12/23/2018 Date of Procedure: 12/21/2018 Date of Receipt: 12/21/2018 Submitted by: SPARKLE DAVE DPM Location: [facility] Diagnostic interpretation performed at [facility], [address] [place] [address]. [place] Number: [id number] [facility] NURSING PROGon 12-15-2018 NURSING PROG HNO ID: [id number] Author: Gwendolyn Lynch) JOANIE Tran Service: ? Author Type: Registered [...] Tran RN December 15, 2018 12:34 PM [facility] HOSPon 12-03-2018 HOSP Patient:Anai Webber MRN: Height:5' [...] Low POTA* 3.9 mmol/L 12/09/2018 5.1 3.7 DANIEL* 41.8 % 12/09/2018 46.0 36.0 Progress Notes (PSYL ADULT CC [facility]): SAMMY Dillon 12/17/2018 8:58 AM Signed Behavioral Health Social Work Progress Note Encounter Type: Update [facility] contacted Pt at [phone] for f/u [facility] was calling to clarify Pt's insurance and to assist Pt with resources. Pt stated she will be losing her [place] insurance in 05-13 Pt stated she [facility] and has an appt for intake on 01-06-19 at 3:30pm Pt is concerned about the amount of time she will need to take off work, she will not be able to see a counselor and a psychiatrist on a monthly basis. -[facility] encouraged Pt to address this with the [facility] when she attends her appt -[facility] stated it is his understanding that when a Pt is stabilized with their symptoms appts with the psychiatrist can be spaced further apart, allowing for Pt to see a counselor. -Pt stated she previously received services at [facility] and they required Pt be seen by psychiatrist on monthly basis -[facility] stated each agency/provider have different criteria therefore encouraged Pt to discuss her concerns at the first visit. -Pt agreed Pt was reminded of the crisis # [phone] Pt was reminded of [facility]'s contact # [phone]. Pt declined [facility] f/u with her, I'm all set [facility] reminded Pt if she has any behavioral health needs in the future to please contact [facility] Pt voiced understanding. No further contact is indicated at this time. Pt has an appt at the [facility] on 01-06[facility]19. Pt has [facility]'s contact info. LAUREN Dillon December 17, 2018 Hamzah Angela MD 12/17/2018 8:59 AM Signed Agree thanks. Progress Notes ([facility]): Melva Rodarte LPN 12/16/2018 [...] before bedtime or any changes. Patient uses [facility] for her pharmacy. Please advise Hamzah Angela [...] to call office. 12/16/2018 5:24 PM Melva [address] LPN 12/18/2018 8:09 AM Signed Patient returned call and went over notes from Dr Angela with understanding. Patient said she has appt with psych in Dec. Advised to continue taking medication for at least another week again from PCP notes. Normal [facility] Culture, urine Bacteria identified Cx Nom (U) Presumptive Lactobacillus sp. [facility] Work Phone: Vital Signs Date Time Vital Sign Value Performing Clinician Facility 09-09-2024 14:13-0400 Body height 162.56 cm No Primary Care Physician [facility] 09-09-2024 14:13-0400 Body mass index (BMI) [Ratio] 48.7 kg/m2 No Primary Care Physician [facility] 09-09-2024 14:13-0400 Body weight 128.82 kg No Primary Care Physician [facility] 09-09-2024 14:13-0400 Diastolic blood pressure 82 mm[Hg] No Primary Care Physician [facility] 09-09-2024 14:13-0400 Systolic blood pressure 126 mm[Hg] No Primary Care Physician [facility] 09-02-2024 11:25-0400 Body height 162.56 cm No Primary Care Physician [facility] 09-02-2024 11:25-0400 Body mass index (BMI) [Ratio] 48.4 kg/m2 No Primary Care Physician [facility] 09-02-2024 11:25-0400 Body weight 128.02 kg No Primary Care Physician [facility] 09-02-2024 11:25-0400 Diastolic blood pressure 84 mm[Hg] No Primary Care Physician [facility] 09-02-2024 11:25-0400 Systolic blood pressure 120 mm[Hg] No Primary Care Physician [facility] 08-26-2024 13:15-0400 Body height 162.56 cm No Primary Care Physician [facility] 08-26-2024 13:14-0400 Body mass index (BMI) [Ratio] 48.2 kg/m2 No Primary Care Physician [facility] 08-26-2024 13:14-0400 Body weight 127.57 kg No Primary Care Physician [facility] 08-26-2024 13:14-0400 Diastolic blood pressure 80 mm[Hg] No Primary Care Physician [facility] 08-26-2024 13:14-0400 Systolic blood pressure 119 mm[Hg] No Primary Care Physician [facility] 08-11-2024 13:27-0400 Diastolic blood pressure 89 mm[Hg] No Primary Care Physician [facility] 08-11-2024 13:27-0400 Heart rate 100 /min No Primary Care Physician [facility] 08-11-2024 13:27-0400 Systolic blood pressure 128 mm[Hg] No Primary Care Physician [facility] 08-11-2024 13:01-0400 Body height 162.56 cm No Primary Care Physician [facility] 08-11-2024 13:01-0400 Body mass index (BMI) [Ratio] 47.5 kg/m2 No Primary Care Physician [facility] 08-11-2024 13:01-0400 Body weight 125.64 kg No Primary Care Physician [facility] 08-11-2024 12:55-0400 Body temperature 98.1 [degF] No Primary Care Physician [facility] 08-11-2024 12:55-0400 Respiratory rate 13 /min No Primary Care Physician [facility] 08-11-2024 12:55-0400 SaO2% (BldA) [Mass fraction] 100 % No Primary Care Physician [facility] 08-11-2024 12:54-0400 SaO2% (BldA) [Mass fraction] 96 % No Primary Care Physician [facility] 08-11-2024 10:10-0400 Body height 162.56 cm No Primary Care Physician [facility] 08-11-2024 10:10-0400 Body mass index (BMI) [Ratio] 47.6 kg/m2 No Primary Care Physician [facility] 08-11-2024 10:10-0400 Body weight 125.87 kg No Primary Care Physician [facility] 08-11-2024 10:10-0400 Diastolic blood pressure 87 mm[Hg] No Primary Care Physician [facility] 08-11-2024 10:10-0400 Systolic blood pressure 121 mm[Hg] No Primary Care Physician [facility] 07-27-2024 13:40-0400 Body height 162.56 cm No Primary Care Physician [facility] 07-27-2024 13:40-0400 Body mass index (BMI) [Ratio] 47.7 kg/m2 No Primary Care Physician [facility] 07-27-2024 13:40-0400 Body weight 126.15 kg No Primary Care Physician [facility] 07-27-2024 13:40-0400 Diastolic blood pressure 86 mm[Hg] No Primary Care Physician [facility] 07-27-2024 13:40-0400 Systolic blood pressure 126 mm[Hg] No Primary Care Physician [facility] 07-13-2024 14:55-0400 Body mass index (BMI) [Ratio] 47.2 kg/m2 No Primary Care Physician [facility] 07-13-2024 14:55-0400 Body weight 124.9 kg No Primary Care Physician [facility] 07-13-2024 14:55-0400 Diastolic blood pressure 76 mm[Hg] No Primary Care Physician [facility] 07-13-2024 14:55-0400 Systolic blood pressure 117 mm[Hg] No Primary Care Physician [facility] 06-30-2024 14:36-0400 Body height 162.56 cm No Primary Care Physician [facility] 06-30-2024 14:31-0400 Body mass index (BMI) [Ratio] 46.7 kg/m2 No Primary Care Physician [facility] 06-30-2024 14:31-0400 Body weight 123.54 kg No Primary Care Physician [facility] 06-30-2024 14:31-0400 Diastolic blood pressure 86 mm[Hg] No Primary Care Physician [facility] 06-30-2024 14:31-0400 Systolic blood pressure 124 mm[Hg] No Primary Care Physician [facility] 06-21-2024 21:15-0400 Body height 162.56 cm No Primary Care Physician [facility] 06-21-2024 21:15-0400 Body mass index (BMI) [Ratio] 46.6 kg/m2 No Primary Care Physician [facility] 06-21-2024 21:15-0400 Body weight 123.3 kg No Primary Care Physician [facility] 06-21-2024 21:00-0400 Body temperature 97.8 [degF] No Primary Care Physician [facility] 06-21-2024 21:00-0400 Respiratory rate 16 /min No Primary Care Physician [facility] 06-21-2024 20:59-0400 Diastolic blood pressure 64 mm[Hg] No Primary Care Physician [facility] 06-21-2024 20:59-0400 Heart rate 90 /min No Primary Care Physician [facility] 06-21-2024 20:59-0400 SaO2% (BldA) [Mass fraction] 97 % No Primary Care Physician [facility] 06-21-2024 20:59-0400 Systolic blood pressure 119 mm[Hg] No Primary Care Physician [facility] 06-16-2024 14:12-0400 Body mass index (BMI) [Ratio] 46.7 kg/m2 No Primary Care Physician [facility] 06-16-2024 14:12-0400 Body weight 123.37 kg No Primary Care Physician [facility] 06-16-2024 14:12-0400 Diastolic blood pressure 87 mm[Hg] No Primary Care Physician [facility] 06-16-2024 14:12-0400 Systolic blood pressure 125 mm[Hg] No Primary Care Physician [facility] 04-21-2024 13:38-0500 Body mass index (BMI) [Ratio] 46.3 kg/m2 No Primary Care Physician [facility] 04-21-2024 13:38-0500 Body weight 122.46 kg No Primary Care Physician [facility] 04-21-2024 13:38-0500 Diastolic blood pressure 76 mm[Hg] No Primary Care Physician [facility] 04-21-2024 13:38-0500 Systolic blood pressure 111 mm[Hg] No Primary Care Physician [facility] 03-26-2024 13:14-0500 Body mass index (BMI) [Ratio] 46.4 kg/m2 No Primary Care Physician [facility] 03-26-2024 13:14-0500 Body weight 122.64 kg No Primary Care Physician [facility] 03-26-2024 13:14-0500 Diastolic blood pressure 81 mm[Hg] No Primary Care Physician [facility] 03-26-2024 13:14-0500 Systolic blood pressure 118 mm[Hg] No Primary Care Physician [facility] 03-10-2024 18:30-0500 Body height 162.6 cm Lenard PALACIOS Work Phone: [facility] 03-10-2024 18:30-0500 Body mass index (BMI) [Ratio] 45.57 kg/m2 Lenard Santiago [employer] Work Phone: [facility] 03-10-2024 18:30-0500 Body temperature 97.7 [degF] Lenard Santiago [employer] Work Phone: [facility] 03-10-2024 18:30-0500 Body weight 120.43 kg Lenard Santiago [employer]EC[employer] Work Phone: [facility] 03-10-2024 18:30-0500 Diastolic blood pressure 81 mm[Hg] Lenard Santiago [employer] Work Phone: [employer] [facility] 03-10-2024 18:30-0500 Heart rate 99 /min Lenard Santiago [employer] Work Phone: [facility] 03-10-2024 18:30-0500 Respiratory rate 15 /min Lenard Santiago [employer] Work Phone: [facility] 03-10-2024 18:30-0500 SaO2% (BldA) [Mass fraction] 96 % Lenard Santiago [employer] Work Phone: [facility] [employer] [facility] 03-10-2024 18:30-0500 Systolic blood pressure 115 mm[Hg] Lenard Santiago [employer] Work Phone: [facility] 10-14-2023 10:51-0400 Body temperature 98.71 [degF] Uzair Cabrera MD Work Phone: [facility] 10-14-2023 10:51-0400 Diastolic blood pressure 80 mm[Hg] Uzair Cabrera MD Work Phone: [employer] [facility] 10-14-2023 10:51-0400 Heart rate 80 /min Uzair Cabrera MD Work Phone: [employer] [facility] 10-14-2023 10:51-0400 Respiratory rate 17 /min Uzair Cabrera MD Work Phone: [facility] 10-14-2023 10:51-0400 SaO2% (BldA) [Mass fraction] 90 % Uzair Cabrera MD Work Phone: [facility] 10-14-2023 10:51-0400 Systolic blood pressure 150 mm[Hg] Uzair Cabrera MD Work Phone: [facility] 10-14-2023 07:36-0400 Body height 162.6 cm Uzair Cabrera MD Work Phone: [facility] 10-14-2023 07:36-0400 Body mass index (BMI) [Ratio] 46.96 kg/m2 Uzair Cabrera MD Work Phone: [facility] 10-14-2023 07:36-0400 Body weight 124.15 kg Uzair Cabrera MD Work Phone: [facility] 10-13-2023 11:25-0400 SaO2% (BldA) [Mass fraction] 95.1 % Uzair Cabrera MD Work Phone: [facility] 09-18-2022 07:51-0400 Blood Pressure Location Alexander Gudimella [facility] 09-18-2022 07:51-0400 Diastolic blood pressure 68 mm[Hg] Alexander Gudimella [facility] 09-18-2022 07:51-0400 Heart rate 99 /min Alexander Gudimella [facility] 09-18-2022 07:51-0400 SaO2% (BldA) [Mass fraction] 97 % Alexander Gudimella [facility] 09-18-2022 07:51-0400 Systolic blood pressure 100 mm[Hg] Alexander Gudimella [facility] 07-30-2022 11:11-0400 Body height 162.[address] Beverley Moncada Work Phone: [facility] 07-30-2022 11:08-0400 Body mass index (BMI) [Ratio] 42.5 kg/m2 Dr. Beverley Moncada Work Phone: [facility] 07-30-2022 11:08-0400 Body weight 112.[address] Beverley Moncada Work Phone: [facility] 07-30-2022 11:08-0400 Diastolic blood pressure 79 mm[Hg] Dr. Beverley Moncada Work Phone: [facility] 07-30-2022 11:08-0400 Systolic blood pressure 124 mm[Hg] Dr. Beverley Moncada Work Phone: [facility] 06-12-2022 11:10-0400 Body mass index (BMI) [Ratio] 45.4 kg/m2 Dr. Beverley Moncada Work Phone: [facility] 06-12-2022 11:10-0400 Body weight 120.[address] Beverley Moncada Work Phone: [facility] 06-12-2022 11:10-0400 Diastolic blood pressure 84 mm[Hg] Dr. Beverley Moncada Work Phone: [facility] 06-12-2022 11:10-0400 Systolic blood pressure 125 mm[Hg] Dr. Beverley Moncada Work Phone: [facility] 06-11-2022 15:30-0400 Body temperature 98.1 [degF] Dr. Beverley Moncada Work Phone: [facility] 06-11-2022 15:30-0400 Diastolic blood pressure 63 mm[Hg] Dr. Beverley Moncada Work Phone: [facility] 06-11-2022 15:30-0400 Heart rate 96 /min Dr. Beverley Moncada Work Phone: [facility] 06-11-2022 15:30-0400 Respiratory rate 18 /min Dr. Beverley Moncada Work Phone: [facility] 06-11-2022 15:30-0400 Systolic blood pressure 128 mm[Hg] Dr. Beverley Moncada Work Phone: [facility] 06-11-2022 07:40-0400 SaO2% (BldA) [Mass fraction] 94 % Dr. Beverley Moncada Work Phone: [facility] 06-08-2022 22:11-0400 Body height 162.[address] Beverley Moncada Work Phone: [facility] 06-08-2022 22:11-0400 Body mass index (BMI) [Ratio] 47.2 kg/m2 Dr. Beverley Moncada Work Phone: [facility] 06-08-2022 22:11-0400 Body weight 124.[address] Beverley Moncada Work Phone: [facility] 06-03-2022 14:59-0400 Body weight 123.[address] Beverley Moncada Work Phone: [facility] 06-03-2022 10:59-0400 Body height 162.[address] Beverley Moncada Work Phone: [facility] 06-03-2022 10:57-0400 Body mass index (BMI) [Ratio] 29.5 kg/m2 Dr. Beverley Moncada Work Phone: [facility] 06-03-2022 10:57-0400 Diastolic blood pressure 78 mm[Hg] Dr. Beverley Moncada Work Phone: [facility] 06-03-2022 10:57-0400 Systolic blood pressure 114 mm[Hg] Dr. Beverley Moncada Work Phone: [facility] 05-28-2022 11:20-0500 Body mass index (BMI) [Ratio] 46 kg/m2 Dr. Beverley Moncada Work Phone: [facility] 05-28-2022 11:20-0500 Body weight 121.[address] Beverley Moncada Work Phone: [facility] 05-28-2022 11:20-0500 Diastolic blood pressure 83 mm[Hg] Dr. Beverley Moncada Work Phone: [facility] 05-28-2022 11:20-0500 Systolic blood pressure 118 mm[Hg] Dr. Beverley Moncada Work Phone: [facility] 05-22-2022 11:05-0500 Body mass index (BMI) [Ratio] 46.5 kg/m2 Dr. Beverley Moncada Work Phone: [facility] 05-22-2022 11:05-0500 Body weight 122.[address] Beverley Moncada Work Phone: [facility] 05-22-2022 11:05-0500 Diastolic blood pressure 77 mm[Hg] Dr. Beverley Moncada Work Phone: [facility] 05-22-2022 11:05-0500 Systolic blood pressure 124 mm[Hg] Dr. Beverley Moncada Work Phone: [facility] 04-22-2022 10:47-0500 Body mass index (BMI) [Ratio] 44.6 kg/m2 Dr. Beverley Moncada Work Phone: [facility] 04-22-2022 10:47-0500 Body weight 117.[address] Beverley Moncada Work Phone: [facility] 04-22-2022 10:47-0500 Diastolic blood pressure 85 mm[Hg] Dr. Beverley Moncada Work Phone: [facility] 04-22-2022 10:47-0500 Systolic blood pressure 127 mm[Hg] Dr. Beverley Moncada Work Phone: [facility] 04-08-2022 12:14-0500 Body temperature 97.8 [degF] Dr. Beverley Moncada Work Phone: [facility] 04-08-2022 12:14-0500 Diastolic blood pressure 60 mm[Hg] Dr. Beverley Moncada Work Phone: [facility] 04-08-2022 12:14-0500 Heart rate 88 /min Dr. Beverley Moncada Work Phone: [facility] 04-08-2022 12:14-0500 SaO2% (BldA) [Mass fraction] 96 % Dr. Beverley Moncada Work Phone: [facility] 04-08-2022 12:14-0500 Systolic blood pressure 117 mm[Hg] Dr. Beverley Moncada Work Phone: [facility] 04-08-2022 11:51-0500 Body mass index (BMI) [Ratio] 44.4 kg/m2 Dr. Beverley Moncada Work Phone: [facility] 04-08-2022 11:51-0500 Body weight 117.[address] Beverley Moncada Work Phone: [facility] 04-08-2022 11:02-0500 Body mass index (BMI) [Ratio] 44.5 kg/m2 Dr. Beverley Moncada Work Phone: [facility] 04-08-2022 11:02-0500 Body weight 117.[address] Beverley Moncada Work Phone: [facility] 04-08-2022 11:02-0500 Diastolic blood pressure 68 mm[Hg] Dr. Beverley Moncada Work Phone: [facility] 04-08-2022 11:02-0500 Systolic blood pressure 110 mm[Hg] Dr. Beverley Moncada Work Phone: [facility] 03-13-2022 15:15-0500 Body mass index (BMI) [Ratio] 44.3 kg/m2 Dr. Beverley Moncada Work Phone: [facility] 03-13-2022 15:15-0500 Body weight 117.[address] Beverley Moncada Work Phone: [facility] 03-13-2022 15:15-0500 Diastolic blood pressure 68 mm[Hg] Dr. Beverley Moncada Work Phone: [facility] 03-13-2022 15:15-0500 Systolic blood pressure 108 mm[Hg] Dr. Beverley Moncada Work Phone: [facility] 01-02-2022 15:54-0400 Body height 162.56 cm [facility] Work Phone: 01-02-2022 15:54-0400 Body mass index (BMI) [Ratio] 42.6 kg/m2 [facility] Work Phone: 01-02-2022 15:54-0400 Body weight 112.66 kg [facility] Work Phone: 01-02-2022 15:54-0400 Diastolic blood pressure 84 mm[Hg] [facility] Work Phone: 01-02-2022 15:54-0400 Systolic blood pressure 123 mm[Hg] [facility] Work Phone: 12-06-2021 14:55-0400 Body height 162.[address] Beverley Moncada Work Phone: [facility] Work Phone: 12-06-2021 14:55-0400 Body mass index (BMI) [Ratio] 42.5 kg/m2 Dr. Beverley Moncada Work Phone: [facility] Work Phone: 12-06-2021 14:55-0400 Body weight 112.[address] Beverley Moncada Work Phone: [facility] Work Phone: 12-06-2021 14:55-0400 Diastolic blood pressure 72 mm[Hg] Dr. Beverley Moncada Work Phone: [facility] Work Phone: 12-06-2021 14:55-0400 Systolic blood pressure 110 mm[Hg] Dr. Beverley Moncada Work Phone: [facility] Work Phone: 11-21-2021 13:23-0400 Body height 162.56 cm Kelly Madera DO Work Phone: [address] Work Phone: 11-21-2021 13:23-0400 Body mass index (BMI) [Ratio] 42.23 kg/m2 Kelly Madera DO Work Phone: [address] Work Phone: 11-21-2021 13:23-0400 Body surface area Derived from formula 2.14 m2 Kelly Madera DO Work Phone: [place] [address] [employer] Work Phone: 11-21-2021 13:23-0400 Body weight 111.59 kg Kelly Madera DO Work Phone: [address] Work Phone: 11-21-2021 13:23-0400 Diastolic blood pressure 78 mm[Hg] Kelly Madera DO Work Phone: [place] [address] [employer] Work Phone: 11-21-2021 13:23-0400 Systolic blood pressure 118 mm[Hg] Kelly Madera DO Work Phone: [facility] Work Phone: Encounters Encounter Date Encounter Type Care Provider Facility Start: 09-16-2024 ambulatory No Primary Car e Physician Facility:[facility] Start: 09-09-2024 End: 09-09-2024 Patient encounter procedure Tenisha Reyna CNM -[facility] Work Phone: Start: 09-09-2024 End: 09-09-2024 ambulatory No Primary Care Physician [facility] Work Phone: Start: 09-09-2024 Patient encounter procedure Tenisha Reyna CNM -[facility] Work Phone: Start: 09-09-2024 ambulatory Tenisha Reyna Facility :[facility] Start: 09-06-2024 Encounter for genera l adult medical examination without abnormal findings Beverley Moncada [facility] Start: 09-02-2024 End: 09-02-2024 Patient encounter procedure Fariba BREAUX -[facility] Work Phone: Start: 09-02-2024 End: 09-02-2024 ambulatory No Primary Care Physician [facility] Work Phone: Start: 09-02-2024 End: 09-02-2024 ambulatory Tenisha Reyna Facility:[facility] Start: 08-26-2024 End: 08-26-2024 ambulatory No Primary Care Physician [facility] Work Phone: Start: 08-26-2024 End: 08-26-[address] Nenita Wells MD -[facility] Work Phone: Start: 08-26-2024 End: 08-26-2024 ambulatory Nenita Wells Facility:[facility] Start: 08-19-2024 End: 08-19-2024 ambulatory No Primary Care Physician [facility] Work Phone: Start: 08-19-2024 End: 08-19-2024 Patient encounter procedure Tenisha Reyna CNM -[facility] Work Phone: Start: 08-19-2024 Non-patient / Non-visit Dr. Beverley Moncada DO -[facility] Start: 08-19-2024 End: 08-19-2024 ambulatory Tenisha Reyna Facility:[facility] Start: 08-11-2024 End: 08-11-2024 ambulatory No Primary Care Physician [facility] Work Phone: Start: 08-11-2024 End: 08-11-[address] Beverley Moncada DO -[facility] Work Phone: Start: 08-11-2024 End: 08-11-[address] Beverley Moncada DO -[facility] Work Phone: Start: 08-11-2024 End: 08-11-2024 ambulatory No Primary Care Physician [facility] Work Phone: Start: 07-27-2024 End: 07-27-2024 Patient encounter procedure Tenisha Reyna CNM -[facility] Work Phone: Start: 07-27-2024 End: 07-27-2024 ambulatory No Primary Care Physician [facility] Work Phone: Start: 07-27-2024 End: 07-27-2024 ambulatory Nenita Wells Facility:[facility] Start: 07-13-2024 End: 07-13-[address] Nenita Wells MD -[facility] Work Phone: Start: 07-13-2024 End: 07-13-2024 ambulatory Nenita Wells Facility:[facility] Start: 06-30-2024 End: 06-30-2024 Patient encounter procedure Fariba BREAUX -[facility] Work Phone: Start: 06-30-2024 End: 06-30-2024 ambulatory No Primary Care Physician [facility] Work Phone: Start: 06-30-2024 End: 06-30-2024 ambulatory Nenita Wells Facility:[facility] Start: 06-22-2024 ambulatory No Primary Car e Physician Facility:[facility] Start: 06-22-2024 ambulatory Nenita Dove lity:[facility] Start: 06-22-2024 Non-patient / Non-visit Tenisha Reyna CNM -[facility] Start: 06-21-2024 End: 06-21-2024 ambulatory No Primary Care Physician [facility] Work Phone: Start: 06-21-2024 End: 06-21-[address] Nenita Wells MD -[facility] Work Phone: Start: 06-16-2024 End: 06-16-[address] Beverley Moncada DO -[facility] Work Phone: Start: 06-16-2024 End: 06-16-2024 ambulatory No Primary Care Physician Facility:[facility] Start: 05-19-2024 ambulatory Nenita Hidalgomayra Petty lity:[facility] Start: 05-06-2024 End: 05-06-2024 ambulatory IVANIA [facility] Start: 04-21-2024 End: 04-21-2024 Patient encounter procedure Fariba BREAUX -[facility] Work Phone: Start: 04-21-2024 End: 04-21-2024 ambulatory No Primary Care Physician Facility:[facility] Start: 03-26-2024 End: 03-26-[address] Nenita Wells MD -[facility] Work Phone: Start: 03-26-2024 End: 03-26-2024 ambulatory Nenita Wells Facility:[facility] Start: 03-26-2024 End: 03-26-2024 ambulatory Nenita Wells Facility:[facility] Start: 03-10-2024 End: 03-10-2024 Office outpatient visit 15 minutes Lenard Santiago APRN-[employer] SCHO[employer] INSTRUCTOR Work Phone: [facility] Comment on above: Pneumonia of left antonino ng due to infectious organism, unspecified part of lung (Primary Dx); Cough, unspecified type Start: 03-10-2024 ambulatory LENARD Pichardo [facility] Start: 02-18-2024 End: 02-18-2024 ambulatory No Primary Care Physician Facility:[facility] Start: 02-18-2024 End: 02-18-2024 ambulatory No Primary Care Physician Facility:[facility] Start: 10-10-2023 End: 10-14-2023 Evaluation and management of inpatient Uzair Cabrera MD Work Phone: [facility] Comment on above: Pneumonia Start: 05-13-2023 End: 05-14-2023 [facility] Start: 01-28-2023 End: 01-29-2023 ambulatory [facility] Start: 01-28-2023 End: 01-29-2023 Encounter for general adult medical examination without abnormal findings [facility] Start: 11-04-2022 End: 11-05-2022 ambulatory Alexander Gudimella Facility:[facility] Start: 11-04-2022 End: 11-04-2022 Patient encounter procedure Alexander Gudimella [facility] Start: 10-21-2022 End: 10-22-2022 ambulatory Alexander Gudimella Facility:[facility] Start: 10-21-2022 End: 10-21-2022 Patient encounter procedure Alexander Gudimella [facility] Start: 10-01-2022 End: 10-02-2022 ambulatory Alexander Gudimella Facility:[facility] Start: 10-01-2022 End: 10-01-2022 Patient encounter procedure Alexander Gudimella [facility] Start: 10-01-2022 End: 10-02-2022 ambulatory Alexander Gudimella Facility:[facility] Start: 09-18-2022 End: 09-19-2022 ambulatory Alexander Gudimella Facility:[facility] Start: 09-18-2022 End: 09-18-2022 Patient encounter procedure Alexander Gudimella [facility] Start: 09-12-2022 End: 09-13-2022 Emergency department patient visit Provider Pending Facility:[id number] Start: 09-11-2022 ambulatory LAURA SIDELL Facility:[facility] Start: 08-27-2022 End: 08-28-2022 ambulatory LAURA W SIDELL Facility:[facility] Start: 08-27-2022 End: 08-27-2022 Off-Site LAURA W YOMICORAL [facility] Start: 07-30-2022 End: 07-30-[address] Beverley Moncada Work Phone: [facility] Work Phone: Start: 07-30-2022 End: 07-30-[address] Beverley Moncada Work Phone: [facility]-Laboratory, Specimen Start: 07-30-2022 End: 07-30-[address] Beverley Moncada Work Phone: [facility] Start: 06-16-2022 End: 06-16-[address] Beverley Moncada Work Phone: [facility] Care Start: 06-12-2022 End: 06-12-[address] Beverley Moncada Work Phone: [facility] Start: 06-11-2022 Non-patient / Non-visit Dr. Beverley Moncada Work Phone: [facility] Start: 06-10-2022 Non-patient / Non-visit Dr. Beverley Moncada Work Phone: [facility] Start: 06-09-2022 Non-patient / Non-visit Dr. Beverley Moncada Work Phone: [facility] Start: 06-08-2022 Non-patient / Non-visit Dr. Beverley Moncada Work Phone: [facility] Start: 06-08-2022 End: 06-11-2022 Evaluation and management of inpatient Dr. Beverley Moncada Work Phone: [facility] Start: 06-03-2022 End: 06-03-[address] Beverley Moncada Work Phone: [facility] Work Phone: Start: 06-03-2022 End: 06-03-[address] Beverley Moncada Work Phone: [facility] Ultrasound Start: 06-03-2022 End: 06-03-[address] Beverley Moncada Work Phone: [facility] Start: 05-28-2022 End: 05-28-[address] Beverley Moncada Work Phone: [facility] Start: 05-22-2022 End: 05-22-[address] Beverley Moncada Work Phone: [facility] Start: 04-22-2022 End: 04-22-[address] Beverley Moncada Work Phone: [facility] Start: 04-08-2022 Non-patient / Non-visit Dr. Beverley Moncada Work Phone: [facility] Start: 04-08-2022 End: 04-08-[address] Beverley Moncada Work Phone: [facility] Outpatients Start: 03-28-2022 End: 03-28-2022 ambulatory Provider Pending Facility:[id number] Start: 03-13-2022 End: 03-13-[address] Beverley Moncada Work Phone: [facility] Start: 01-02-2022 End: 01-02-2022 ambulatory [facility] Work Phone: Start: 01-02-2022 End: 01-02-2022 Patient encounter procedure [facility] Specimen Start: 01-02-2022 End: 01-02-2022 Patient encounter procedure [facility] Start: 12-12-2021 End: 12-12-2021 Patient encounter procedure [facility] Start: 12-06-2021 End: 12-06-[address] Beverley Moncada Work Phone: [facility] Work Phone: Start: 12-06-2021 End: 12-06-[address] Beverley Moncada Work Phone: [facility] Start: 12-06-2021 End: 12-06-[address] Beverley Moncada Work Phone: [facility] Start: 11-23-2021 Chart Update Kelly Madera DO Work Phone: [address] Work Phone: Start: 03-02-2016 End: 03-03-2016 Patient encounter [facility] Facility:01 Procedures Date Procedure Procedure Detail Performing Clinician Start: 09-09-2024 Ultrasonography for biophysical profile without non-stress testing No Primary Care Physician Start: 09-02-2024 Ultrasonography for biophysical profile without non-stress testing No Primary Care Physician Start: 08-26-2024 Beta-hemolytic Strep tococcus culture No [...] by JADYN with probe detection Lenard Santiago EXECUTIVE COACH[employer] Work Phone: Start: 10-14-2023 C-reactive protein Step johnnie Lara EXECUTIVE COACH[employer] Work Phone: Start: 10-14-2023 Complete blood count with white cell differential, automated Marilee Dallas DO Work Phone: Start: 10-14-[address] josseline Allen EXECUTIVE COACH[employer] Work Phone: Start: 10-13-2023 Echo tthrc r-t 2d w/ wom-mode compl spec&colr d Shanon J Shanae EXECUTIVE COACH-[employer] Work Phone: Start: 10-13-2023 Assay of lactate Oliviasit y Herminia Shanae EXECUTIVE COACH-[employer]CTOR Work Phone: Start: 10-13-2023 Blood gases any comb ination ph pco2 po2 co2 hco3 Shanon J Shanae EXECUTIVE [employer]ACH[employer] Work Phone: Start: 10-13-2023 Radiologic exam ches t single view Marilee Dallas DO Work Phone: Start: 10-13-2023 C-reactive protein Step hen D [place] EXECUTIVE [employer]ACH[employer] Work Phone: Start: 10-13-[address] josseline Diaz Alejandro EXECUTIVE [employer]ACH[employer] Work Phone: Start: 10-13-2023 Assay of lactate Stephe n D Jane EXECUTIVE [employer]ACH[employer] Work Phone: Start: 10-12-2023 Assay of lactate Stephe n D [place] [employer]EC[employer]IVE [employer] Work Phone: Start: 10-12-2023 Assay of lactate Stephe n D [place] [employer]EC[employer]IVE [employer] Work Phone: Start: 10-12-2023 Urinalysis microscopic only Uzair D [place] [employer]EC[employer]IVE [employer] Work Phone: Start: 10-12-2023 Urinalysis, reagent strip without microscopy Uzair D Jane EXECUTIVE [employer] Work Phone: Start: 10-12-2023 End: 10-12-2023 Assay of troponin quantitative Uzair D [place] [employer]EC[employer]IVE [employer] Work Phone: Start: 10-12-2023 C-reactive protein Step hen D [place] [employer]EC[employer]IVE [employer] Work Phone: Start: 10-12-2023 End: 10-12-2023 Natriuretic peptide Uzair D Jane [employer]EC[employer]IVE [employer] Work Phone: Start: 10-12-2023 Radiologic exam ches t single view Uzair Lara EXEC[employer]IVE [employer] Work Phone: Start: 10-12-[address] josseline Fincher EXECUTIVE COACH-[employer]CTOR Work Phone: Start: 10-11-2023 Ct angiography chest w/contrast/noncontrast Uzair Lara EXECUTIVE [employer]ACH[employer] Work Phone: Start: 10-11-2023 Cultyp nuc acid amp prb cult/isolate ea orgnism Mirela Diaz Alejandro EXECUTIVE COACH-[employer]CTOR Work Phone: Start: 10-11-2023 Fibrin dgradj produc ts d-dimer qual/semiquan Mirela Diaz Alejandro EXECUTIVE [employer]ACH[employer] Work Phone: Start: 10-11-2023 Ct thorax w/o contra st material Mirela Diaz Alejandro EXECUTIVE [employer]ACH[employer] Work Phone: Start: 10-11-2023 Iaad ia mult step me thod nos each organism Mirela Diaz Alejandro EXECUTIVE [employer]ACH-[employer] Work Phone: Start: 10-11-2023 Blood count complete auto&auto difrntl wbc Marilee aDllas DO Work Phone: Start: 10-11-2023 C-reactive protein Step parul Diaz Alejandro EXECUTIVE [employer]ACH[employer] Work Phone: Start: 10-10-2023 Culture bacterial bl ood aerobic w/id isolates Uzair Cabrera MD Work Phone: Start: 10-10-2023 Radiologic exam ches t 2 views Uzair Cabrera MD Work Phone: Start: 10-10-2023 Comprehensive metabo lic panel Uzair Cabrera MD Work Phone: Start: 10-10-2023 Infectious agent dna /rna influenza 1st 2 types Uzair Cabrera MD Work Phone: Start: 10-10-2023 Sars-cov-2 detection by dna/rna Uzair G Escue MD Work Phone: Start: 01-28-2023 Basic metabolic [...] above: Performed By: #### T +S #### [facility] [id number] [place] [address] Cytopathology proced ure, preparation of smear, genital [...] RSV VACCINE (1 - 1-dose 60+ series) [facility] Start: 09-06-2029 Tetanus vaccination TETANUS [facility] Start: 10-13-2024 Potassium [Moles/vol ume] in Serum or Plasma POTASSIUM [facility] Start: 09-02-2024 Measurement of gluco se 2 hours after glucose challenge for glucose tolerance test [facility] Start: 08-26-2024 Biophysical pr ofile panel US [facility] Start: 08-26-2024 Ultrasonography for biophysical profile without non-stress testing Biophysical Prof W/O Non Stres [facility] Start: 08-26-2024 Ultrasound scan for growth [facility] Start: 08-11-2024 Iv infusion hydratio n initial 31 min-1 hour HYDRATION IV INFUSION INIT [facility] Start: 08-11-2024 Nonstress test [facility] Start: 08-11-2024 Obstetric monitoring [facility] Start: 08-11-2024 Vital signs measurements [facility] Start: 08-11-2024 [facility] Start: 08-11-2024 Patient discharge [facility] Start: 06-21-2024 Nonstress test [facility] Start: 06-21-2024 Source specific culture [facility] Start: 06-21-2024 End: 06-21-2024 [facility] Start: 06-21-2024 Obstetric monitoring [facility] Start: 06-21-2024 Vital signs measurements [facility] Start: 06-21-2024 Bacteria identified in Urine by Culture Urine Culture [facility] Start: 06-21-2024 Genital Culture Genital Culture [facility] Start: 06-21-2024 Microscopic observat ion [Identifier] in Unspecified specimen by Gram stain [facility] Start: 11-24-2023 End: 12-29-2023 CT Chest WO contrast CT CHEST WITHOUT CONTRAST Imaging Routine Pneumonia of both lungs due to infectious organism, unspecified part of lung Expected: 11/24/2023, Expires: 12/29/2023 [facility] Comment on above: Expected: 11/24/2023 , Expires: 12/29/2023 Start: 11-23-2023 COVID-19 VACCINE ( season) COVID-19 VACCINE ( season) [facility] Start: 11-23-2023 Influenza vaccination INFLUENZA VACC INE (#1) [facility] Start: 11-22-2022 COVID-19 VACCINE ( season) COVID-19 VACCINE ( season) [facility] Start: 06-11-2022 Patient discharge [facility] Start: 06-11-2022 [facility] Start: 06-10-2022 Consultation [facility] Start: 06-09-2022 Administration of medication [facility] Start: 06-09-2022 Application of ice c ollar, cap or bag [facility] Start: 06-09-2022 Catheterization of vein [facility] Start: 06-09-2022 Introduction of urin omar catheter [facility] Start: 06-09-2022 Measuring intake and output [facility] Start: 06-09-2022 Notification of physician [facility] Start: 06-09-2022 Procedure discontinued [facility] Start: 06-09-2022 Provision of activit y privileges [facility] Start: 06-09-2022 Vital signs measurements [facility] Start: 06-09-2022 [facility] Start: 06-08-2022 Admission procedure [facility] Start: 04-08-2022 Nonstress test [facility] Start: 04-08-2022 Obstetric monitoring [facility] Start: 04-08-2022 Vital signs measurements [facility] Start: 04-08-2022 [facility] Start: 04-08-2022 Patient discharge [facility] Start: 12-06-2021 Chlamydia deoxyribon ucleic acid detection [facility] Work Phone: Start: 12-06-2021 Liquid based cervica l cytology screening [facility] Work Phone: Start: 2014 Screening for malign ant neoplasm of cervix CERVICAL CANCER SCREENING DISCUSSION [facility] Start: 2012 Hepatitis B vaccination HEP B VACCINE (1 of 3 - 19+ 3-dose series) [facility] Start: 2008 HIV screening HIV SCREENING DISCUSSION [facility] Start: 1993 Hepatitis C screening HEPATITI S C VIRUS SCREENING [facility] Bacteria identified in Blood by Culture BLOOD CULTURE Microbiology [facility] 10/10/2023 10:28 PM EDT [facility] CBC W Auto Different ial panel - Blood [facility] Work Phone: CBC W Auto Different ial panel - Blood [facility] Biophysical pr ofile panel US [facility] Genital microscopy, culture and sensitivities [facility] Glucose [Mass/volume ] in Serum or Plasma --1 hour post 50 g glucose PO [facility] Work Phone: Hepatitis B surface antigen measurement [facility] Work Phone: Hepatitis C antibody measurement [facility] Work Phone: HIV 1+2 Ab+HIV1 p24 Ag [Presence] in Serum or Plasma by Immunoassay [facility] Work Phone: Measurement of gluco se 2 hours after glucose challenge for glucose tolerance test [facility] Measurement of gluco se 2 hours after glucose challenge for glucose tolerance test [facility] Neisseria gonorrhoea e rRNA [Presence] in Unspecified specimen by JADYN with probe detection [facility] Work Phone: Path report.final Dx Spec [facility] Work Phone: Patient Education [facility] Work Phone: Patient referral [facility] Work Phone: PCR test for Chlamyd ia trachomatis [facility] Work Phone: Rubella IgG measurement [facility] Work Phone: Serologic test for syphilis [facility] Streptococcus agalac tiae [Presence] in Unspecified specimen by Organism specific culture [facility] T4 free measurement [facility] Thyroid stimulating hormone measurement [facility] Treponema sp Ab [Pre sence] in Serum [facility] Work Phone: Ultrasound scan for growth [facility] Ultrasound scan for growth [facility] Urine culture [facility] Immunizations Immunization Date Immunization Notes Care Provider Fa fritz 09-07-2019 tetanus toxoid, redu devin diphtheria toxoid, and acellular pertussis vaccine, adsorbed Dr. Beverley Moncada Work Phone: [facility] 01-22-2019 influenza virus vaccine, live, attenuated, for intranasal use LAURA ANA [facility] 12-08-2018 influenza virus vaccine, unspecified formulation Uzair Cabrera MD Work Phone: [facility] Payers Date Payer Category Payer Self-pay [id number] 2022 Unknown 2022 Unknown [id number] 2022 Medicaid [id number] 1993 Unknown [id number] 2.16.840.1.462215.3.579.2.1069 1993 Unknown [id number] 2.16.840.1.827277.3.579.2.1069 1993 Unknown [id number] 2.16.840.1.460810.3.579.2.727 1993 Unknown [id number] 2.16.840.1.339987.3.579.2.727 1993 Unknown [id number] 2.16.840.1.739001.3.579.2.727 1993 Unknown [id number] 2.16.840.1.181083.3.579.2.727 1993 Unknown [id number] 2.16.840.1.268544.3.579.2.727 1993 Unknown [id number] 2.16.840.1.609219.3.579.2.727 1993 Unknown [id number] 2.16.840.1.141314.3.579.2.1245 1993 Unknown [id number] 2.16.840.1.412596.3.579.2.174 1993 Unknown [id number] 2.16.840.1.769791.3.579.2.983 1993 Unknown [id number] 2.16.840.1.058183.3.579.2.983 1993 Unknown [id number] 840.1.649741.3.579.2.479 1959 Unknown [id number] Unknown ANTHEM [id number] Unknown ANTHEM SECONDARY [id number] 2 [id number] [facility] [place] 2 [id number] Unknown [id number] 05.09.830.1.137192.3.579.2.462 Unknown [id number] 840.1.642648.3.579.2.462 Unknown [id number] 05.09.830.1.293076.3.579.2.462 Unknown [id number] 05.09.830.1.162266.3.579.2.462 Unknown [id number] 05.09.830.1.010617.3.579.2.462 Unknown [id number] 05.09.830.1.647483.3.579.2.462 Unknown [id number] 840.1.522204.3.579.2.462 Unknown [id number] 05.09.830.1.848640.3.579.2.462 Unknown [id number] 840.1.434791.3.579.2.462 Unknown [id number] 840.1.393069.3.579.2.462 Unknown [id number] 840.1.091705.3.579.2.462 Unknown [id number] 840.1.394687.3.579.2.462 Unknown [id number] 840.1.089830.3.579.2.462 Unknown [id number] 2.16.840.1.567562.3.579.2.462 Unknown [id number] 2.16.840.1.890096.3.579.2.462 Unknown [id number] 2.16.840.1.462552.3.579.2.462 Unknown [id number] 2.16.840.1.061242.3.579.2.462 Unknown [id number] 2.16.840.1.432095.3.579.2.462 Unknown [id number] 2.16.840.1.626369.3.579.2.462 Unknown [id number] 2.16.840.1.457335.3.579.2.462 Unknown [id number] 2.16.840.1.159656.3.579.2.462 Unknown [id number] 2.16.840.1.967333.3.579.2.462 Unknown [id number] 2.16.840.1.907470.3.579.2.462 Unknown [id number] 2.16.840.1.190220.3.579.2.462 Unknown [id number] 2.16.840.1.559382.3.579.2.462 Unknown [id number] 2.16.840.1.591391.3.579.2.462 Unknown [id number] 2.16.840.1.385414.3.579.2.462 Unknown [id number] 2.16.840.1.787070.3.579.2.462 Social History Date Type Detail Facility Start: 10-13-2023 End: 03-10-2024 Former smoker Former smoker [facility] Start: 12-06-2021 End: 07-30-2022 Tobacco smoking status OKIS Unknown if ever smoked [facility] Start: 1995 Sex Assigned At Female [facility] Start: 08-27-2022 End: 10-01-2022 Tobacco smoking status Ex-smoker (finding) [facility] [place] Tobacco smoking status [facility] Start: 10-13-2023 End: 03-10-2024 Sex Assigned At Female Jack Frazier [facility] Start: 10-10-2023 End: 06-21-2024 Tobacco smoking status NHIS Never smoked tobacco Doctor Evidence [facility] Start: 10-10-2023 Tobacco use and exposure Smokeless tobacco non-user Doctor [facility] Start: 10-10-2023 End: 03-10-2024 Alcoholic beverage intake Ex-drinker (finding) Doctor Evidence [facility] Has the [employer], oil, or water company threatened to shut off services in your home in past 12Mo No Doctor Evidence System (I/We) worried [facility] (my/our) food would run out before (I/we) got money to buy more. Never true [employer] Start: 1995 Sex assigned at Not on file [facility] Start: 12-30-2023 [employer] [facility] Start: 06-22-2024 End: 07-06-2024 Sex Female (finding) [facility] Goals Date Patient Goal Desired Activity /State Functional Status Date Assessment Result Facility 09-18-2022 Functional Status N/A [facility] [place] 08-27-2022 Functional Status Telehealth [facility] 12-06-2021 to 09-09-2024 Note Date & Type Note Facility 09-09-2024 Progress note [facility] 09-09-2024 Progress note Note Date/Time September 09, 2024 2:42pm [facility] [facility] [address] [place] [address], [address] [place] [address] OFFICE VISIT Date of Service: 09/09/24 MR#: [id number] Acct: [id number] Name: ANAI WOO Rep #: [id number] : 1995 Provider: DEAN Reyna Age/Sex: 29/F Location: [facility] Status: Signed Intake Vital Signs 07/27/24 13:40 09/02/24 11:25 09/09/24 14:13 Height 5 ft 4 in 5 ft 4 in 5 ft 4 in Weight: 284 lb BMI 48.7 BP 126/82 H Intake Visit Reasons: 38 wk ob Chief Complaint: 38 Week OB 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 Required: No Is patient in pain?: No Allergies insect venom Allergy (Intermediate, Verified 09/09/24 14:20) Swelling amoxicillin Allergy (Verified 09/09/24 14:20) Rash Pertussis Vaccines Allergy (Verified 09/09/24 14:20) Other Medications ?Medication ?Instructions ?Recorded ?Confirmed ?Type lamotrigine 200 mg tablet 200 mg PO DAILY 05/18/19 History cetirizine 10 mg tablet 10 mg PO DAILY 05/21/1908/22 History multivitamin with iron 1 tab PO QDAY 02/06/2409/09 History sertraline 50 mg tablet (Zoloft) 100 mg PO QDAY 09/09/24 History Last Menstrual Period: 12/22/23 Zika: Zika [...] 1 current occupational status: employed current occupation: [employer] current occupational exposures/hazards: No pets and animals: [...] 3-4 times per week duration: 30-45 minutes/day katherine/hoahaoism: None seatbelt use: always do you feel safe at home: Yes additional social history: 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 Date Name GA/Weeks Outcome Route Bth Weight Infant Gen Labor Lgth Anesthesia Del Locatn Provider FOB 06/09/22 Finlee 37 live - full term 7#2 Female epid ural [facility] Nenita Alvarado Delivery Date: 06/09/22 Last Updated by: Sandy Encinas see problem list for complications, and 37 srom girl SM. HPI 38 wk ob Details: ANAI WOO is a 29 year old who presents for routine OB visit. OB Visit HITESH Calculator Estimated Delivery Date Method Current WG Current Estimate 09/21/24 Ultrasound #1 38w 2d Other Estimates 09/27/24 LMP (Certain) 37w 3d Expected Delivery Route/Plan Labor Preferences- CB/BF [...] list details Initial Weight: 267 lb Date -?-?-?-?-?-?-?-?-?-?-?-?- EGA Weight BP Urine Prot -?-?-?-?-?-?-?-?-?-?-?-?- Glucose FHR FuHt Pres Dilation -?-?-?-?-?-?-?-?-?-?-?-?- Effaced St Visit Note 02/18/24 -?-?-?-?-?-?-?-?-?-?-?-?- 9w 1d 267 lb 2 oz (+2 oz) 121/82 -?-?-?-?-?-?-?-?-?-?-?-?- 180 -?-?-?-?-?-?-?-?-?-?-?-?- KW- CRL not cons with dates HITESH changed. will get NIPT and labs at next visit 03/26/24 -?-?-?-?-?-?-?-?-?-?-?-?- 14w 3d 270 lb 6 oz (+3 lb 6 oz) 118/81 Negative -?-?-?-?-?-?-?-?-?-?-?-?- Negative 145 -?-?-?-?-?-?-?-?-?-?-?-?- SM- no vb crampi ng 04/21/24 -?-?-?-?-?-?-?-?-?-?-?-?- 18w 1d 270 lb (+3 lb) 111/76 Negative -?-?-?-?-?-?-?-?-?-?-?-?- Negative 141 -?-?-?-?-?-?-?--?-?-?-?-?- MH-No VB. Nausea resolved. Tearful. doesn't feel . FHT easily found. Reassured 06/16/24 -?-?-?-?-?-?-?-?-?-?-?-?- 26w 1d 272 lb (+5 lb) 125/87 -?-?-?-?-?-?-?-?-?-?-?-?- 138 -?-?-?-?-?-?-?-?-?-?-?-?- JV- patient requ ests bilateral salpingectomy if needs a section. if not plan is for laparoscopic BS at 8-10 weeks post . 06/30/24 -?-?-?-?-?-?-?-?-?-?-?-?- 28w 1d 272 lb 6 oz (+5 lb 6 oz) 124/86 Negative -?-?-?-?-?-?-?-?-?-?-?-?- Negative 152 -?-?-?-?-?-?-?-?-?-?-?-?- MH-No VB, LOF si nce she was in WP last week. Good FM. Declines tdap. Larc done. 28 wk labs pending 07/13/24 -?-?-?-?-?-?-?-?-?-?-?-?- 30w 0d 275 lb 6 oz (+8 lb 6 oz) 117/76 -?-?-?-?-?-?-?-?-?-?-?-?- 145 31 -?-?-?-?-?-?-?-?-?-?-?-?- SM- no vb lof go od fm nor euglar ctx 07/27/24 -?-?-?-?-?-?-?-?-?-?-?-?- 32w 0d 278 lb 2 oz (+11 lb 2 oz) 126/86 Negative -?-?-?-?-?-?-?-?-?-?-?-?- Negative 147 -?-?-?-?-?-?-?-?-?-?-?-?- KW- no vb/lof/ct x. Has growth US today and at 36 weeks. will order weekly BPPs for 34+ weeks. 08/11/24 -?-?-?-?-?-?-?-?-?-?-?-?- 34w 1d 277 lb 8 oz (+10 lb 8 oz) 121/87 Negative -?-?-?-?-?-?-?-?-?-?-?-?- Negative 145 -?-?-?-?-?-?-?-?-?-?-?-?- JV- no complaint s today. has bpp at 1230 today. 08/26/24 -?-?-?-?-?-?-?-?-?-?-?-?- 36w 2d 281 lb 4 oz (+14 lb 4 oz) 119/80 Negative -?-?-?-?-?-?-?-?-?-?-?-?- Negative 140 37 Cephalic 0 -?-?-?-?-?-?-?-?-?-?-?-?- SM- no vb lof go od fm nr oeugaltr ctx plan repeat GCT due to large AC gbs done 09/02/24 -?-?-?-?-?-?-?-?-?-?-?-?- 37w 2d 282 lb 4 oz (+15 lb 4 oz) 120/84 Negative -?-?-?-?-?-?-?-?-?-?-?-?- Negative 141 39 Cephalic 0 -?-?-?-?-?-?-?-?-?-?-?-?- MH-No VB, LOF or reg CTX. Rpt GCT today pending and will have KW call to discuss induction 09/09/24 -?-?-?-?-?-?-?-?-?-?-?-?- 38w 2d 284 lb (+17 lb) 126/82 Negative -?-?-?-?-?-?-?-?-?-?-?-?- Negative 143 Cephalic 3 -?-?-?-?-?-?-?-?-?-?-?-?- 60 -2 KW- No VB/ lof/ctx. good fm Discussed IOL on tues for LGA. discussed with JV. LYLEOG First Trimester First Trimester: Desire for , Alcohol, Tobacco Cessation, Illicit/Recreational Drug/Substance Use, Intimate Partner Violence, Barriers to care, Unstable Housing, Communication Barriers, Environmental/Work Hazards, Anticipated Course of Care, Toxoplasmosis Precations, Use of Any medications, Sexual activity, Exercise, Dental Care, Sauna/Hot tub use, Seat Belt use, Childbirth classes/Hospital facilities, Travel, Indications for Ultrasound and Screening for Aneuploidy; Discussed Second Trimester Second Trimester: Signs and Symptoms of Labor, Selecting a care provider, Reproductive Life Planning & Contreception, Care Planning and Depression/Anxiety; Discussed Tobacco Cessation and Discussed Intimate Partner Violence Third Trimester Third Trimester: Pain Management Plans, Labor support person(s), Immediate Larc, Circumcision preference, Movement Monitoring, Signs and Symptoms of Preeclampsia, Feeding No , Clio Education and Family Medical Leave or Disability Forms ROS Const Reports system reviewed and no additional complaints, except as documented Eyes Reports system reviewed and no additional complaints, except as documented ENT Reports system reviewed and no additional complaints, except as documented Card Reports system reviewed and no additional complaints, except as documented Resp Reports system reviewed and no additional complaints, except as documented GI Reports system reviewed and no additional complaints, except as documented, Denies nausea and Denies vomiting Reports system reviewed and no additional complaints, except as documented Musc Reports system reviewed and no additional complaints, except as documented Skin/Breast Reports system reviewed and no additional complaints, except as documented Neuro Yes system reviewed and no additional complaints, except as documented Psych Reports system reviewed and no additional complaints, except as documented Endo Reports system reviewed and no additional complaints, except as documented Daniel/Lymph Reports system reviewed and no additional complaints, except as documented Aller/Immun Reports system reviewed and no additional complaints, except as documented Exam Const General: cooperative, healthy appearing and no acute distress Orientation: alert, awake and oriented x3 Neck Neck: normal visual inspection and full ROM Resp Effort & Inspection: normal respiratory effort, able to speak in complete sentences and symmetric chest movement GI Inspection: normal to inspection Palpation: soft and other Other: gravid Skin General: no rashes or lesions noted Neuro General: patient alert, patient awake and patient oriented x3 Cognition: normal cognition Speech: speech normal Gait: normal gait Motor: muscle tone normal throughout Extrem General: normal to inspection and full ROM Psych Appearance: grossly normal Mental Status: mental status grossly normal Mood: congruent mood Affect: normal affect Speech and Movement: speech and movement normal Attitude: cooperative Thought Process: normal Thought Content: normal Judgment: judgment good Results POC Urinalysis 2 Dip (Clinic) Office Urine Glucose Negative Last Edit by Shweta Daniel on 09/09/24 14 :21 Office Urine Protein Negative Last Edit by Shweta Daniel on 09/09/24 14 :21 Coding Level of Care Code OB Routine Diagnoses 38 weeks gestation of Z3A.38 Weeks of gestation: 38 weeks Supervision of high risk in third trimester O09.93 Trimester: third trimester Maternal anesthesia complication O74.9 Major depressive disorder, remission status unspecified, unspecified whether recurrent F32.9 Active/Remission status: remission status unspecified Depression Type: major depressive disorder Major depression recurrence: unspecified whether recurrent History of gestational hypertension Z87.59; Z86.79 Obesity affecting in second trimester, unspecified obesity type O99.212 Obesity type affecting : unspecified obesity Trimester: second trimester Rubella non-immune status, antepartum O09.899; Z28.39 Encounter for other contraceptive management Z30.8 Contraceptive encounter type: other encounter for contraceptive management Abnormal test O28.9 LGA (large for gestational age) fetus History of herpes genitalis in father of unborn child Thyromegaly E01.0 Bipolar affective disorder, remission status unspecified F31.9 Active/Remission status: remission status unspecified Assessment and Plan Assessment and Plan (1) : Status: Acute Qualifiers: Weeks of gestation: 38 weeks Qualified Code(s): Z3A.38 - 38 weeks gestation of Comment: Neg GBS NIPT low risk, nl anatomy (2) Supervision of high-risk : Status: Acute Qualifiers: Trimester: third trimester Qualified Code(s): O09.93 - Supervision of high risk , unspecified, third trimester Comment: PRR. , HITESH 09/27/24, Kj alarcon, Christiano (3) Maternal anesthesia complication: Status: Acute Comment: passed out with full strength epidural, OK with half strength (4) Depression: Status: Acute Qualifiers: Active/Remission status: remission status unspecified Depression Type: major depressive disorder Major depression recurrence: unspecified whether recurrent Qualified Code(s): F32.9 - Major depressive disorder, single episode, unspecified (5) History of gestational hypertension: Status: Acute (6) Obesity affecting : Status: Acute Qualifiers: Obesity type affecting : unspecified obesity Trimester: second trimester Qualified Code(s): O99.212 - Obesity complicating , second trimester Comment: HgbA1c BMI 45-needs weekly NST at 34 weeks- needs 36 week (7) Rubella non-immune status, antepartum: Status: Acute Comment: equivocal. offer MMR after (8) Contraception management: Status: Acute Qualifiers: Contraceptive encounter type: other encounter for contraceptive management Qualified Code(s): Z30.8 - Encounter for other contraceptive management Comment: Wants tubal if c section (9) Abnormal test: Status: Acute Comment: bpp 6/8 on 08/11, reactive prolonged nst monitoring (10) LGA (large for gestational age) fetus: Status: Acute Comment: 36 wk 97% AC, 92% EFW. Rpt GCT: 91 (11) History of herpes genitalis in father of unborn child: Status: Acute (12) Thyromegaly: Status: Acute Comment: noted at post visit last .labs were normal but did not do ordered US. plan to reassess at post visit this . (13) Bipolar disorder: Status: Acute Qualifiers: Active/Remission status: remission status unspecified Qualified Code(s): F31.9 - Bipolar disorder, unspecified Comment: taking lamictal and lexapro. Change to zoloft 03/13; Will discuss DC of lamictal with PCP in order to breastfeed Orders: Orders POC Urinalysis 2 Dip (Clinic) Today Plan Details Additional Comments: ACOG trimester education reviewed and updated. see problem list details for updated plan management information and see below for orders placed at this visit. GA appropriate handout given. 09/09/24 [id number] <Electronically signed by Tenisha moody CNM> Date _ Tenisha Reyna CNM Cosigner Signature: Date (if applicable) CC: ~ [facility] Work Phone: 1(773) 598-407206-12-2025 Radiology Diagnostic study note [facility] Imaging Services [address] [place], [place] [id number] Biophysical Prof W/O Non Stres MR#: [id number] Acct: [id number] Name: ANAI WOO Rep #: [id number] 1 : 1995 F 29 From: Gustavo Thapa MD PCP: Status: REG CLI Study:Biophysical Prof W/O Non Stres Date of Exam: 09/02/24 Exam# [id number] Ordering Dr: Tenisha Reyna CNM PROCEDURE: BIOPHYSICAL PROF W/O NON STRES 09/02/2024 REASON FOR EXAM: OBESITY DURING TECHNIQUE: High resolution obstetric ultrasound performed using a 2D transducer. Standard views obtained, including biometry, anatomy survey, and Doppler studies. COMPARISON: Prior study dated August 26, 2024. FINDINGS Number: 1 Position: Vertex Placental Position: Anterior and not low-lying. Placental Abnormalities: No evidence of previa. ESTIMATED GESTATIONAL AGE: Baseline: 37 weeks and 2 days ESTIMATED DATE OF DELIVERY: Baseline: September 21, 2024. BIOPHYSICAL ASSESSMENT: Amniotic Fluid Volume: 7 cm Amniotic Fluid Index: 19.8 (8-24 cm normal range) Cardiac Motion: 148 beats per minute (average) Trunk and Limb Motion: Present. Biophysical profile: Breathing movements: 2 Gross body movements: 2 tone: 2 Amniotic fluid volume: 2 Total score: 8/8 US/Biophysical Prof W/O Non Stres IMPRESSION: Normal biophysical profile. Reading Location: [place] [address] CC: DEAN Sánchez Custodian Athletic Equipment: Signed [facility]06-09-2025 Radiology Diagnostic study note [facility] Imaging Services [address] [place] [id number] OB Limited With Biometrics MR#: [id number] Acct: [id number] Name: ANAI WOO Rep #: [id number] : 1995 F 29 From: Gustavo Thapa MD PCP: Status: REG CLI Study:OB Limited With Biometrics Date of Exam : 08/26/24 Exam# [id number] Ordering Dr: Nenita Lucas MD PROCEDURE: OB [...] with the normal expected range. Reading Location: [place] [address] CC: LAURA PEREZ; Dr. Nenita Wells MD ~ Custodian Athletic Equipment: Signed [facility]06-08-2025 Radiology Diagnostic study note [facility] Imaging Services [address] [place] [address] Biophysical Prof W/O Non Stres MR#: [id number] Acct: [id number] Name: ANAI WOO Rep #: [id number] 5 : 1995 F 29 From: Pet er Peer DO PCP: Status: REG CLI Study:Biophysical Prof W/O Non Stres Date of Exam: 08/26/24 Exam# [id number] Ordering Dr: Tenisha Reyna CNM PROCEDURE: BIOPHYSICAL [...] dateby current prior ultrasound: 09/11/2019 Reading Location: [facility] CC: DEAN Reyna; LAURA PEREZ ~ Custodian Athletic Equipment: Signed [facility]05-29-2025 Radiology Diagnostic study note [facility] Imaging Services [address] [place] [id number] Biophysical Prof W/O Non Stres MR#: [id number] Acct: [id number] Name: ANAI WOO Rep #: [id number] 5 : 1995 F 29 From: Gustavo Thapa MD PCP: LAURA PEREZ Status: REG CLI Study:Biophysical Prof W/O Non Stres Date of Exam: 08/19/24 Exam# [id number] Ordering Dr: Tenisha Reyna CNM PROCEDURE: BIOPHYSICAL [...] Stres IMPRESSION: Normal biophysical profile. Reading Location: [id number] CC: DEAN Reyna; LAURA Sánchez Custodian Athletic Equipment: Signed [facility]05-21-2025 Radiology Diagnostic study note [facility] Imaging Services [address] [place] [address] Biophysical Prof W/O Non Stres MR#: [id number] Acct: [id number] Name: ANAI WOO Rep #: [id number] 3 : 1995 F 29 From: Gustavo Thapa MD PCP: Care Physician,No Primary Status: REG CLI Study:Biophysical Prof W/O Non Stres Date of Exam: 08/11/24 Exam# [id number] Ordering Dr: Tenisha Reyna CNM PROCEDURE: BIOPHYSICAL [...] IMPRESSION: biophysical profile score: 6/8. Reading Location: [place] [address] CC: DEAN Reyna; No Primary Care Physician ~ Custodian Athletic Equipment: Signed [facility]05-07-2025 Radiology Diagnostic study note [facility] Imaging Services [address] [place], [place] [address] OB Limited With Biometrics MR#: [id number] Acct: [id number] Name: ANAI WOO Rep #: [id number] 0 : 1995 F 29 From: Patricia Schreiber MD PCP: Care Physician,No Primary Status: REG CLI Study:OB Limited With Biometrics Date of Exam : 07/27/24 Exam# [id number] Ordering Dr: Nenita Lucas MD PROCEDURE: OB [...] represent a possible placental Pop. Reading Location: [id number] CC: Dr. Nenita Wells MD; No Primary Care Physician ~ Custodian Athletic Equipment: Signed [facility]03-31-2025 Radiology Diagnostic study note [facility] Imaging Services [address] [place], [place] [id number] OB Limited With Biometrics MR#: [id number] Acct: [id number] Name: ANAI WOO Rep #: [id number] 4 : 1995 F 29 From: Emily Daniels DO PCP: Care Physician,No Primary Status: REG CLI Study:OB Limited With Biometrics Date of Exam : 06/21/24 Exam# [id number] Ordering Dr: Tenisha Reyna CNM PROCEDURE: OB [...] DEAN Reyna; No Primary Care Physician ~ Custodian Athletic Equipment: Signed [facility]03-26-2025 Evaluation note* Diagnosis Onset Date Resolution Status [...] affecting acute June 30, 2024 2:24pm acute Megan 9th, 202 5 2:24pm Rubella non-immune status, antepartum acute June [...] 1 2:56pm Thyromegaly acute August 26 12:56pm [place] [employer] [facility] Work Phone: 1(107) 204-729603-26-2025 Evaluation note* Diagnosis Onset Date Resolution Status [...] 2024 11:21am Thyromegaly acute September 02 11:21am [facility] Work Phone: 1(234) 843-465003-26-2025 Evaluation note* Diagnosis Onset Date Resolution Status [...] 1 1:46am Thyromegaly acute August 11 11:46am [facility] Work Phone: 1(789) 545-635203-26-2025 Evaluation note* Diagnosis Onset Date Resolution Status [...] of gestational hypertension acute September 022024 11:21am LGA (large for gestational a ge) fetus acute September 02, 2024 11:21am Maternal anesthesia complication acute September 02, 2024 11:21am Obesity affecting acute September 02, 2024 11:21am acute September 02 11:21am Rubella non-immune status, antepartum acute September 02, 2024 11:21am Supervision of high-risk acute September 02, 2024 11:21am Thyromegaly acute September 02 11:21am [facility] Work Phone: 1(893) 237-490303-26-2025 Evaluation note* Diagnosis Onset Date Resolution Status [...] of gestational hypertension acute September 022024 11:21am LGA (large for gestational a ge) fetus acute September 02, 2024 11:21am Maternal anesthesia complication acute September 02, 2024 11:21am Obesity affecting acute September 02, 2024 11:21am acute September 02 11:21am Rubella non-immune status, antepartum acute September 02, 2024 11:21am Supervision of high-risk acute September 02, 2024 11:21am Thyromegaly acute September 02 11:21am Abnormal test acute J 2024 2:11pm Bipolar disorder acute August 2:11pm Contraception management acute September 09, 2024 2:11pm Depression acute September 09 2:11pm History of herpes genitalis in father of unborn child acute August 2:11pm History of gestational hypertension acute September 092024 2:11pm LGA (large for gestational a ge) fetus acute September 09, 2024 2:11pm Maternal anesthesia complication acute September 09, 2024 2:11pm Obesity affecting acute September 09, 2024 2:11pm acute September 09 2:11pm Rubella non-immune status, antepartum acute September 09, 2024 2:11pm Supervision of high-risk acute September 09, 2024 2:11pm Thyromegaly acute September 09 2:11pm [facility] Work Phone: 1(301) 549-213901-29-2025 Evaluation note* Diagnosis Onset Date Resolution Status [...] 32pm Thyromegaly acute July 27, 2024 1:32pm [facility] Work Phone: 1(855) 292-710301-29-2025 Evaluation note* Diagnosis Onset Date Resolution Status [...] 1 0:05am Thyromegaly acute August 11 10:05am [facility] Work Phone: 1(577) 370-838401-03-2025 Evaluation note* Diagnosis Onset Date Resolution Status [...] 16, 2024 2:10pm Thyromegaly acute June 16, 025 2:10pm [facility] Work Phone: 1(225) 305-746801-03-2025 Evaluation note* Diagnosis Onset Date Resolution Status Admit Date Bipolar disorder acute March 26, 2024 1:05pm Depression acute March 26, 025 1:05pm History of herpes genitalis in father of unborn child acute March 262024 1:05pm History of gestational hypertension acute March 26, 2024 1:05pm Maternal anesthesia complication acute March 26 1:05pm Obesity affecting acute March 26, 2024 1:05pm acute March 26 025 1:05pm Supervision of high-risk acute March [...] 16, 2024 2:10pm Thyromegaly acute June 16, 025 2:10pm Bipolar disorder acute June 212024 [...] bleeding during acute June 30, 2024 2:24pm [facility] Work Phone: 1(342) 273-416212-18-2024 History of Present illness Narrative* Lenard Santiago, ANU-GROUND SCHOOL INSTRUCTOR - 03/10/2024 4:55 PM EST HPI Anai Woo female 1995 [facility] with Chief Complaint Patient presents [...] Resource Strain: Low Risk (02/24/2024) Received from [facility] Overall Financial Resource Strain (CARDIA) Difficulty of Paying Living Expenses: Not hard at all Food Insecurity: No Food Insecurity (02/24/2024) Received from [facility] Hunger Vital Sign Worried About Running Out of Food in the Last Year: Never true Ran Out of Food in the Last Year: Never true Transportation Needs: Unknown (02/24/2024) Received from [facility] PRAPARE - Transportation Lack of Transportation (Medical): Not on file Lack of Transportation (Non-Medical): No Physical Activity: Inactive (01/20/2023) Received from [facility] Exercise Vital Sign Days of Exercise [...] female 1995 presents to the [facility] with Chief Complaint Patient presents [...] improve then worsened again. She has tried agms-cxc-sjzqcas medications. No recorded fevers. She has body [...] Resource Strain: Low Risk (02/24/2024) Received from [facility] Overall Financial Resource Strain (CARDIA) Difficulty of Paying Living Expenses: Not hard at all Food Insecurity: No Food Insecurity (02/24/2024) Received from [facility] Hunger Vital Sign Worried About Running Out of Food in the Last Year: Never true Ran Out of Food in the Last Year: Never true Transportation Needs: Unknown (02/24/2024) Received from [facility] PRAPARE - Transportation Lack of Transportation (Medical): Not on file Lack of Transportation (Non-Medical): No Physical Activity: Inactive (01/20/2023) Received from [facility] Exercise Vital Sign Days of Exercise [...] days for recheck. Discussed supportive home care, bycr-hvw-mcdhyco medications. Work note provided. If symptoms worsen patient was advised to follow up in our office, primary care provider or the Emergency Dept. Benefits, Risks, Contraindications, and Complications of recommended treatments were explained. The patient understands and agrees to proceed with plan. PHILIP Wilkes 03/10/2024 [facility] History of Present illness Narrative* [...] preference. Unable to reach via cell phone. AUDREY asked patient noelle no preference. Referral information emailed to Kadi at [facility]. Will update RT when able to release [employer] tank. * AUDREY Jordan - 10/14/2023 12:29 PM EDT AUDREY updated by respiratory that Anai is going to need 2L o2 at home for discharge. QUALITATIVE FIELD PROJECT MANAGER updated covering Nurse Navigator Mitra on O2 [...] - 10/13/2023 11:47 AM EDT Chart reviewed. QUALITATIVE FIELD PROJECT MANAGER met with Anai in the room she was sitting up in her chair. She lives at home with her ni and their 2 year old son. Grandgino has the son and is helping at this time. She is employed and denies issues. Raya financial issues. Does not have O2 at home. Stated she has no issues going to the MD or with pharmacy. Feels safe at home. Discharge plan home QUALITATIVE FIELD PROJECT MANAGER to follow for new needs 10/13/23 8676 Information Source Information Source patient Employment/Financial Employed? 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 No * Anoop Tee RPh,PharmD - 10/13/2023 9:45 AM EDT Pharmacy - IV to PO Conversion Documentation NAME: Anai Webber Room/Bed: [facility] Previous Medication Order: levaquin 750mg IV every 24 hours New Medication Order: levaquin 750mg PO every 24 hours The above medication was converted from intravenous to oral administration in accordance with the [facility] IV to PO Conversion Policy. [...] will continue to follow. Signed: Anoop Tee RPh,PharmD, [facility] Phone: [phone] Date/Time: 10/13/2023 9:44 AM * Shanon Jolly, EXECUTIVE COACH-GROUND SCHOOL INSTRUCTOR - 10/13/2023 9:15 AM EDT DAILY PROGRESS [...] the document above. Associated attestation - Marilee Dallas, - 10/14/2023 11:08 AM EDT Patient seen [...] the MDM for this encounter. * Marilee Dallas DO - 10/12/2023 12:41 PM EDT INTERVAL [...] consolidation lung bases right greater than left. [place] to be inflammatory. 3. Small right pleural [...] Code Status Full Code [facility]* Nursing Notes - Susi Rain RN - 10/14/2023 2:12 PM EDT Discharge instructions and education reviewed with pt, education provided for dx and new medications, printed education given, denies any questions, IV and tele removed [facility]07-23-2024 Miscellaneous Notes* Nursing Notes - [...] Assessment done as charted without changes. Elijah H, RING CUTTER LATHE OPERATOR notified & new order received. PRN Labetalol [...] Call light within reach. documented in this encounterNor[facility]24 Hospital Discharge instructions* Discharge Instr - [...] * Labetalol Oral Tablet (LABETALOL - ORAL) (Yemeni) * prednisone (Yemeni) * Pneumonia (Yemeni) documented in this [facility]07-23-2024 Nurse Note* Nursing Notes - Machelle Garrett RN - 10/14/2023 6:10 AM EDT Up to use bathroom independently. No change in assessment. Resting quietly. Denies needs. T [facility]07-22-2024 Nurse Note* Nursing Notes - Machelle Garrett RN - 10/13/2023 11:18 PM EDT Sleeping in bed. Assessment done as charted without changes. Elijah Alfonso NP notified & new order received. PRN Labetalol given. Pt denies needs. [facility]07-22-2024 Nurse Note* Nursing Notes - Machelle Garrett RN - 10/13/2023 8:15 PM EDT Awake, sitting up in chair playing game on her laptop. Assessment done as charted. Denies pain or questions at this time. T [facility]07-22-2024 Nurse Note* Nursing Notes - Stacy Daniel RN - 10/13/2023 4:26 AM EDT Patient resting in bed. Assessment unchanged from prior unless otherwise noted in flowsheets. Patient denies any needs. Call light within reach. [facility]07-22-2024 Nurse Note* Nursing Notes - Stacy Daniel RN - 10/13/2023 12:27 AM EDT Patient resting in bed. Assessment unchanged from prior unless otherwise noted in flowsheets. Patient denies any needs. Call light within reach. T [facility]07-21-2024 Nurse Note* Nursing Notes - Calli Meyer RN - 10/12/2023 4:00 PM EDT Patient assessment unchanged from previous assessment. Any exceptions noted in flowsheets. Call light and personal items within reach. Patient denies any further needs. [facility]07-21-2024 Nurse Note* Nursing Notes - Calli Meyer RN - 10/12/2023 12:00 PM EDT Patient assessment unchanged from previous assessment. Any exceptions noted in flowsheets. Call light and personal items within reach. Patient denies any further needs. [facility]07-21-2024 Nurse Note* Nursing Notes - Stacy Daniel RN - 10/12/2023 4:24 AM EDT Patient resting in bed. Assessment unchanged from prior unless otherwise noted in flowsheets. Patient denies any needs. Call light within reach. [facility]07-21-2024 Nurse Note* Nursing Notes - Stacy Daniel RN - 10/12/2023 12:37 AM EDT Patient resting in bed. Assessment unchanged from prior unless otherwise noted in flowsheets. Patient denies any needs. Call light within reach. [facility]07-20-2024 Nurse Note* Nursing Notes - Calli Meyer RN - 10/11/2023 4:00 PM EDT Patient assessment unchanged from previous assessment. Any exceptions noted in flowsheets. Call light and personal items within reach. Patient denies any further needs. [facility]07-20-2024 Nurse Note* Nursing Notes - Calli Meyer RN - 10/11/2023 12:00 PM EDT Patient assessment unchanged from previous assessment. Any exceptions noted in flowsheets. Call light and personal items within reach. Patient denies any further needs. [facility]07-20-2024 Evaluation + Plan note* Assessment & Plan Note - PHILIP Acosta - 10/11/2023 11:42 AM EDTAssociated Problem(s): Febrile Supportive care [facility]07-20-2024 Evaluation + Plan note* Assessment & Plan Note - PHILIP Acosta - 10/11/2023 11:42 AM EDTAssociated Problem(s): Acute hypoxic respiratory failure (Resolved 10/12/2023) Requiring 2 L nasal cannula for adequate oxygenation Continue to wean as tolerated Empiric antibiotics, IV steroids, and routine aerosols [facility]07-20-2024 Evaluation + Plan note* Assessment & Plan Note - PHILIP Acosta - 10/11/2023 11:42 AM EDTAssociated Problem(s): Pneumonia Empiric antibiotics Routine aerosols Supplemental oxygen for pulse ox greater than 92% [facility]07-20-2024 History and physical note* PHILIP Acosta - [...] last Friday in his continually gotten worse. Raffy have a past medical history of asthma [...] dosage. Pt reported Brian OCP 10/09/2023 at 2099 lamoTRIgine 100 MG tablet Take 2 tablets by mouth daily. 10/09/2023 at 2099 venlafaxine 37.5 MG Cap SR 24HR capsule [...] Use Authorization (EUA) for the qualitative detection [id number]-5 nucleic acid. INFLUENZA A 10/10/2023 NEGATIVE INFLUENZA [...] for Dr. Dallas 11 minutes spent of GROUND SCHOOL INSTRUCTOR time including assessment, planning, and discussion with nursing staff and patient Please note Portions of this note utilized [employer] dictation software, please excuse any typographical or [...] the MDM for this encounter. OBS ADMIT. [facility]07-20-[facility]24 History and physical note* Mirela Allen, EXECUTIVE COACH-GROUND SCHOOL INSTRUCTOR - 10/11/2023 8:46 AM EDT History and [...] Use Authorization (EUA) for the qualitative detection xlORZI-IpC-6 nucleic acid. INFLUENZA A 10/10/2023 NEGATIVE INFLUENZA [...] for Dr. Dallas 11 minutes spent of GROUND SCHOOL INSTRUCTOR time including assessment, planning, and discussion with nursing staff and patient Please note Portions of this note utilized [employer] dictation software, please excuse any typographical or [...] this encounter. OBS ADMIT. documented in this encounterNor[facility] Nurse Note* Nursing Notes - Stacy Daniel RN - 10/11/2023 4:07 AM EDT Patient resting in bed. Assessment unchanged from prior unless otherwise noted in flowsheets. Patient denies any needs. Call light within reach. [facility]07-19-2024 Emergency department Note* Lorena Marcial RN - 10/10/2023 10:56 PM EDT Report sheet tubed up to med surg at this time. Pt also prefers to keep shorts on at this time for comfort. [facility]07-19-2024 Emergency department Note* Lorena Marcial RN [...] Resource Strain: Low Risk (02/23/2023) Received from [facility] Overall Financial Resource Strain (CARDIA) Difficulty of Paying Living Expenses: Not very hard Food Insecurity: No Food Insecurity (02/23/2023) Received from [facility] Hunger Vital Sign Worried About Running Out of Food in the Last Year: Never true Ran Out of Food in the Last Year: Never true Transportation Needs: Unknown (02/23/2023) Received from [facility] PRAPARE - Transportation Lack of Transportation (Medical): Not on file Lack of Transportation (Non-Medical): No Physical Activity: Inactive (01/20/2023) Received from [facility] Exercise Vital Sign Days of Exercise per Week: 0 days Minutes of Exercise per Session: 0 min Stress: Not on file Social Connections: Not on file Intimate Partner Violence: Not At Risk (01/20/2023) Received from [facility] Humiliation, Afraid, Rape, and Kick questionnaire Fear of Current or Ex-Partner: No Emotionally Abused: No Physically Abused: No Sexually Abused: No Housing Stability: Unknown (02/23/2023) Received from [facility] Housing Stability Vital Sign Unable to [...] Uzair Cabrera MD 10/10/232224 documented in [facility] Emergency department Note* Reba Velasco RN - 10/10/2023 10:32 PM EDT Room assignment 3757. [facility]07-[facility] Physician Emergency department Note* Uzair [...] Resource Strain: Low Risk (02/23/2023) Received from [facility] Overall Financial Resource Strain (CARDIA) Difficulty of Paying Living Expenses: Not very hard Food Insecurity: No Food Insecurity (02/23/2023) Received from [facility] Hunger Vital Sign Worried About Running Out of Food in the Last Year: Never true Ran Out of Food in the Last Year: Never true Transportation Needs: Unknown (02/23/2023) Received from [facility] PRAPARE - Transportation Lack of Transportation (Medical): Not on file Lack of Transportation (Non-Medical): No Physical Activity: Inactive (01/20/2023) Received from [facility] Exercise Vital Sign Days of Exercise per Week: 0 days Minutes of Exercise per Session: 0 min Stress: Not on file Social Connections: Not on file Intimate Partner Violence: Not At Risk (01/20/2023) Received from [facility] Humiliation, Afraid, Rape, and Kick questionnaire Fear of Current or Ex-Partner: No Emotionally Abused: No Physically Abused: No Sexually Abused: No Housing Stability: Unknown (02/23/2023) Received from [facility] Housing Stability Vital Sign Unable [...] pneumonia Disposition: Admission Uzair Cabrera MD 10/10/232224 [facility] Work Phone: 1(198) 915-120007-10-2023 Evaluation + Plan note Future Scheduled Tests Laboratory* TSH With T4fr Reflex 09/30/22 * Urinalysis 09/30/22 * Vitamin D 25 Hydroxy 09/30/22 * CBC w/ Auto Diff 09/30/22 * Comprehensive Metabolic Panel 09/30/22 * Lipid Panel 09/30/22 [facility]05-26-2023 Hospital Discharge instructions Follow Up Care 08/16/2022 08:24:49 With:NAA CARRILLO LAURA Jeremi Address: [address] [place] [address] When: Unknown [facility] [place] 03-21-2023 Discharge summary Author Tenisha Reyna [facility] June 11, 2022 8:42am Note Date/Time June 11, 2022 8:4 2am [facility] Medical Records Department [address] [place] [address] Instructions for Home/Discharge Instructions 06/11/22 0841 MR#: [id number] Acct: [id number] Name: ANAI WEBBER Rep #:[id number] : [...] CC: No Primary Care Physician ~ Signed [facility] Work Phone: 1(911) 806-429503-21-2023 Progress note Author Tenisha Reyna [facility] June 11, 2022 8:34am Note Date/Time June 11, 2022 8:2 9am [facility] Medical Records Department [address] [place] [id number] Progress Note - OBGYN 06/11/22823 MR#: [id number] Acct: [id number] Name: ANAI WEBBER Rep #:[id number] : 1995 27 From: Tenisha Reyna CNM PCP: Care Physician,No Primary Status :ADM IN Location: [facility]-5 Subjective Subjective Patient doing well without complaints. [...] Cosigner Signature (if applicable): CC: ~ Signed [facility] Work Phone: 1(136) 856-828303-20-2023 Progress note Author Fariba Cota [facility] June 10, 2022 7:45am Note Date/Time June 10, 2022 7:4 5am [facility] Medical Records Department [address] [place] [address] Progress Note - OBGYN 06/10/22 0743 MR#: [id number] Acct: [id number] Name: ANAI WEBBER Rep #:[id number] : 1995 27 From: Fariba Cota NP RING CUTTER LATHE OPERATOR-C PCP: Care Physician,No Primary Status :ADM IN Location: [place] [address]-1 Subjective Subjective Patient doing well without complaints. [...] 0745 <Electronically signed by Fariba Cota NP RING CUTTER LATHE OPERATOR-C> Cosigner Signature (if applicable): CC: ~ Signed [facility] Work Phone: 1(867) 658-454503-20-[address] Wells [facility] June 09, 2022 10:10pm Note Date/Time June 09, 2022 7:4 3pm [facility] Medical Records Department [address] [place] [address] Instructions for Home/Discharge Instructions 06/09/22 194 MR#: [id number] Acct: [id number] Name: ANAI WEBBER Rep #:[id number] : [...] CC: No Primary Care Physician ~ Signed [facility] Work Phone: 1(962) 283-652303-19-2023 Procedure [facility] 06-09-2022 History and physical note Author Dr. 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 06/08/222319 <Electronically signed by Nenita Wells MD> Cosigner Signature (if applicable): CC: Dr. Nenita Wells MD; No Primary Care Physician~ Signed [facility] Work Phone: 1([phone]) 280-651809-15-2022 NotePap Smear Specimen AdequacySeptember 2021 4:21pmComment.Satisfactory for evaluation. Endocervical and/or squamous metaplasticcells (endocervical component)are present.[facility] A#[id number] Hospital Work Phone: Comment on above:Satisfactory for evaluation. Endocervical and/or squamous metaplasticcells (endocervical component)are present.Evaluation + Plan note No data available for this section [facility] [place] Evaluation + Plan note Future Appointments Appointment Date:10/01/2022 09:20:00 AM Scheduled Provider:Alexander Starr MD Location:[facility] Appointment Type:[facility] [place] Evaluation note* Diagnosis Onset Date Resolution Status Bipolar disorder acute Hx of one miscarriage acute Obesity affecting acute acute Seasonal allergies acute Supervision of high risk , antepartum acute [facility] Work Phone: Evaluation note* Diagnosis Onset Date Resolution Status Bipolar disorder acute Hx of one miscarriage acute Obesity affecting acute acute Seasonal allergies acute Supervision of high risk , antepartum acute Bipolar disorder acute Herpes simplex antibody positive acute Hx of one miscarriage acute Obesity affecting acute acute Seasonal allergies acute Supervision of high risk , antepartum acute [facility] Work Phone: Evaluation note* Diagnosis Onset Date [...] Supervision of high risk , antepartum acute [facility] Work Phone: Evaluation note* Diagnosis Onset Date [...] Supervision of high risk , antepartum resolved [facility] Work Phone: Evaluation note* Diagnosis Onset Date [...] mother noneactive Thyromegaly acute Vaginal discharge acute [facility] Work Phone: Evaluation note* Diagnosis Pneumonia- [...] Pneumonia, organism unspecified [facility] Diagnosis Pneumonia- Primary Pneumonia, [...] Cough, unspecified type documented in this encounter [facility] No data available for this section [facility] Instructions* Attachments The following attachments cannot be sent through Care Everywhere. * Pneumonia (Yemeni) documented in this encounterNorwalk Memorial HospitalProgress note No data available for this section [facility] Reason for referral (narrative)* Consultation (Routine) - New Request Specialty Diagnoses / Procedures Referred By Vicki gan Referred To Contact Pulmonary Disease Diagnoses Pneumonia of both lungs due to infectious organism, unspecified part of lung Shanon Jolly, EXECUTIVE COACH-GROUND SCHOOL INSTRUCTOR [address] [place] [address] Referral ID Status Reason Start Date Expiration Date V isits Requested Visits Authorized [id number] New Request 10/14/2023 11/07/2024 1 1 * MRI/CAT Scan (Routine) - New Request Specialty Diagnoses / Procedures Referred By Contac t Referred To Contact Diagnoses Pneumonia of both lungs due to infectious organism, unspecified part of lung Procedures CT CHEST WITHOUT CONTRAST CHG DIAGNOSTIC COMPUTED TOMOGRAPHY THORAX W/O CNTRST Mirela Allen APRN-LORENA [address] [place] [address] Referral ID Status Reason Start Date Expiration Date V isits Requested Visits Authorized [id number] New Request 10/12/2023 11/05/2024 1 1 * Unlisted Procedure Code (Routine) - New Request Specialty Diagnoses / Procedures Referred By Contac t Referred To Contact Procedures INPATIENT ADMISSION NOTIFICATION Marilee Dallas, DO [address] [place] [address] Referral ID Status Reason Start Date Expiration Date V isits Requested Visits Authorized [id number] New Request 10/10/2023 11/03/2024 1 1 [facility] for referral (narrative)No reason for referral information availableWBluffton Hospital Work Phone: Summary Purpose Family History No [...] September 07, 2019 9:38am Power of Scientific Informatics Leader No September 06 9:38am Advance Directive Response Recorded Date/ Time Living Will No April 22 12:33pm Power of Scientific Informatics Leader No April 22, 2022 12:33pm Advance Directive Response Recorded Date/ Time Living Will No June 08, 2022 11:28pm Power of Scientific Informatics Leader No June 08 11:28pm Advance Directive Response Recorded Date/ Time Living Will No June 12, 2022 11:10am Power of Scientific Informatics Leader No June 12 11:10am Date Activated Date [...] 2024 1 :35pm Rubella non-immune status, antepartum [facility] 2024 1:35pm Supervision of high-risk [facility] 2024 1:35pm Thyromegaly April 21, 2024 1 [...] 2024 2:1 0pm Rubella non-immune status, antepartum [facility] 2024 2:10pm Supervision of high-risk June 16, [...] Ja nuary 2024 1:35pm Supervision of high-risk [facility] 2024 1:35pm Thyromegaly April 21, 2024 1 [...] 2:1 0pm Rubella non-immune status, antepartum [facility] 2024 2:10pm Supervision of high-risk June 16, [...] 8:4 0pm Rubella non-immune status, antepartum [facility] 2024 8:40pm Supervision of high-risk June 21, [...] Ja nuary 2024 1:35pm Supervision of high-risk Janchris 2024 1:35pm Thyromegaly April 21, 2024 1 [...] 2:1 0pm Rubella non-immune status, antepartum [facility] 2024 2:10pm Supervision of high-risk June 16, [...] 8:4 0pm Rubella non-immune status, antepartum [facility] 2024 8:40pm Supervision of high-risk June 21, [...] 2024 1 :35pm Rubella non-immune status, antepartum [facility] 2024 1:35pm Supervision of high-risk Janua 2024 [...] 2:1 0pm Rubella non-immune status, antepartum [facility] 2024 2:10pm Supervision of high-risk June 16, [...] 8:4 0pm Rubella non-immune status, antepartum [facility] 2024 8:40pm Supervision of high-risk June 21, [...] 2:1 0pm Rubella non-immune status, antepartum [facility] 2024 2:10pm Supervision of high-risk June 16, [...] 8:4 0pm Rubella non-immune status, antepartum [facility] 2024 8:40pm Supervision of high-risk June 21, [...] 2:1 0pm Rubella non-immune status, antepartum [facility] 2024 2:10pm Supervision of high-risk June 16, [...] 8:4 0pm Rubella non-immune status, antepartum [facility] 2024 8:40pm Supervision of high-risk June 21, [...] complication September 022024 11:21am Obesity affecting September 02 025 11:21am September 02, 2024 11:2 1am Rubella non-immune status, antepartum Ju ne 2024 11:21am Supervision of high-risk September 02, 2024 11:21am Thyromegaly September 02, 2024 11:2 1am Chief Complaint Admit Date 26 wk ob [...] 12:20am OBESITY DURING August 19, 2024 12:45pm Reason for Visit Admit Date Bipolar disorder June 16, 2024 2:1 0pm Depression June 16, 2024 2:1 0pm History of herpes genitalis in father of unborn child June 16, 2024 2:10pm History of gestational hypert ension June 16, 2024 2:10pm Maternal anesthesia complication May 232024 2:10pm Obesity affecting June 16, 2024 2:10pm June 16, 2024 2:1 0pm Rubella non-immune status, antepartum [facility] 2024 2:10pm Supervision of high-risk June 16, [...] 8:4 0pm Rubella non-immune status, antepartum [facility] 2024 8:40pm Supervision of high-risk June 21, [...] 11:46 am Rubella non-immune status, antepartum [facility] 2024 11:46am Supervision of high-risk July 232024 11:46am Thyromegaly August 11, 2024 11:46 am Chief Complaint Admit Date 26 wk ob [...] wk ob September 02, 2024 11:2 1am OBESITY DURING September 02, 2024 11:56am Reason for Visit Admit Date Bipolar disorder June 16, 2024 2:1 0pm Depression June 16, 2024 2:1 0pm History of herpes genitalis in father of unborn child June 16, 2024 2:10pm History of gestational hypert ension June 16, 2024 2:10pm Maternal anesthesia complication May 232024 2:10pm Obesity affecting June 16, 2024 2:10pm June 16, 2024 2:1 0pm Rubella non-immune status, antepartum [facility] 2024 2:10pm Supervision of high-risk June 16, [...] 8:4 0pm Rubella non-immune status, antepartum [facility] 2024 8:40pm Supervision of high-risk June 21, [...] gestational hypert ension September 02, 2024 11:21am LGA (large for gestational age) fetus Ju ne 2024 11:21am Maternal anesthesia complication September 022024 11:21am Obesity affecting September 02 11:21am September 02, 2024 11:2 1am Rubella non-immune status, antepartum Ju ne 2024 11:21am Supervision of high-risk September 02, 2024 11:21am Thyromegaly September 02, 2024 11:2 1am Chief Complaint Admit Date 26 wk ob [...] wk ob September 02, 2024 11:2 1am OBESITY DURING September 02, 2024 11:56am OBESITY DURING September 09, 2024 12:05pm 38 wk ob September 09, 2024 2:11 pm Reason for Visit Admit Date Bipolar disorder June 16, 2024 2:1 0pm Depression June 16, 2024 2:1 0pm History of herpes genitalis in father of unborn child June 16, 2024 2:10pm History of gestational hypert ension June 16, 2024 2:10pm Maternal anesthesia complication May 232024 2:10pm Obesity affecting June 16, 2024 2:10pm June 16, 2024 2:1 0pm Rubella non-immune status, antepartum [facility] 2024 2:10pm Supervision of high-risk June 16, [...] 8:4 0pm Rubella non-immune status, antepartum [facility] 2024 8:40pm Supervision of high-risk June 21, [...] [id number] 2:24pm Obesity affecting June 30, 2 2:24pm June 30, 2024 2:24 pm Rubella [...] gestational hypert ension September 02, 2024 11:21am LGA (large for gestational age) fetus Ju ne 2024 11:21am Maternal anesthesia complication September [id number] 11:21am Obesity affecting September 02 025 11:21am September 02, 2024 11:2 1am Rubella non-immune status, antepartum Ju ne 12th, 2025 11:21am Supervision of high-risk September 02, 2024 11:21am Thyromegaly September 02, 2024 11:2 1am Abnormal test September 09, 2024 2:11pm Bipolar disorder September 09, 2024 2:11 pm Contraception management September 09, 2024 2:11pm Depression September 09, 2024 2:11 pm History of herpes genitalis in father of unborn child September 09, 2024 2:11pm History of gestational hypert ension September 09, 2024 2:11pm LGA (large for gestational age) fetus Ju ne 2024 2:11pm Maternal anesthesia complication September [id number] 2:11pm Obesity affecting September 09 025 2:11pm September 09, 2024 2:11 pm Rubella non-immune status, antepartum Ju ne 2024 2:11pm Supervision of high-risk September 09, 2024 2:11pm Thyromegaly September 09, 2024 2:11 pm Additional Source Comments INFORMATION SOURCE (unrecogn ized section and content) DATE CREATED AUTHOR 10/15/2017 [facility] DATE CREATED AUTHOR AUTHOR'S ORGANIZ ATION 12/26/2018 [facility] DATE CREATED AUTHOR AUTHOR'S ORGANIZ ATION 11/22/2021 [employer] DATE CREATED AUTHOR AUTHOR'S ORGANIZ ATION 11/22/2021 [facility] DATE CREATED AUTHOR AUTHOR'S ORGANIZ ATION 09/19/2022 [facility] DATE CREATED AUTHOR AUTHOR'S ORGANIZ ATION 11/05/2022 [facility] DATE CREATED AUTHOR AUTHOR'S ORGANIZ ATION 02/02/2023 [facility] DATE CREATED AUTHOR AUTHOR'S ORGANIZ ATION 05/21/2023 [facility] DATE CREATED AUTHOR AUTHOR'S ORGANIZ ATION 03/14/2024 [facility] DATE CREATED AUTHOR AUTHOR'S ORGANIZ ATION 05/08/2024 [facility] DATE CREATED AUTHOR AUTHOR'S ORGANIZ ATION 09/11/2024 [facility] Goals (unrecognized section and content) Goals [...] End: June 30, 2024 Fariba Cota NP, RING CUTTER LATHE OPERATOR-C Attending Provider Active Start: June 30, [...] Inactive Member Role Status Dates Fariba Cota RING CUTTER LATHE OPERATOR, RING CUTTER LATHE OPERATOR-C Attending Provider Active Team Status: Inactive Member Role Status Dates Dr. Nenita Wells MD Attending Provider Active Team Status: Active Member Role Status Dates Dr. Beverley Moncada DO Referring Provider, Othe r Provider Active Carolina Jones CNM Attending Provider, Other Provid er Active Team Status: Inactive Member Role Status Dates Dr. Beverley Moncdaa DO Attending Provider Activ e Team Status: Inactive Member Role Status Dates Dr. Beverley Moncada DO Attending Provider, Refe rring Provider Active Carolina Jones CNM Other Provider Active Team Status: Inactive Member Role Status Dates Fariba Cota RING CUTTER LATHE OPERATOR, RING CUTTER LATHE OPERATOR-C Attending Provider Active No Primary Care [...] Referring Provider, Other Provider Active Fariba Cota RING CUTTER LATHE OPERATOR, RING CUTTER LATHE OPERATOR-C Attending Provider Active Team Status: Active [...] Provider, Refer ring Provider Active Radha Sofia RING CUTTER LATHE OPERATOR, RING CUTTER LATHE OPERATOR-C Attending Provider Active Team Status: Inactive Member Role Status Dates No Primary Care Physician Primary Care Provider, Refer ring Provider Active Fariba Cota RING CUTTER LATHE OPERATOR, RING CUTTER LATHE OPERATOR-C Attending Provider Active Team Status: Inactive Member Role Status Dates No Primary Care Physician Primary Care Provider, Refer ring Provider Active Dr. Nenita Wells MD Attending Provider Active Team Status: Inactive Member Role Status Dates No Primary Care Physician Primary Care Provider Active Dr. Nenita Wells MD Attending Provider, Referr ing Provider Active Sprinkling System Irrigator Relationship Specialty Start Date End Date Laura Perez CNP [address] [place] [address] [place] [address] PCP - General Nurse Practitioner - Family 10/10/23 Sprinkling System Irrigator Relationship Specialty Start Date End Date Laura [...] 2024 End: April 21, 2024 Fariba Cota RING CUTTER LATHE OPERATOR, RING CUTTER LATHE OPERATOR-C Attending Provider Active Start: April 21, [...] 2024 End: September 02, 2024 Fariba Cota RING CUTTER LATHE OPERATOR, RING CUTTER LATHE OPERATOR-C Attending Provider Active Start: September 02, 2024 End: September 02, 2024 Team Status: Active Member Role Status Dates ANA SANCHEZ Primary Care Provider Active Start : September 02, 2024 Fariba Cota RING CUTTER LATHE OPERATOR, RING CUTTER LATHE OPERATOR-C Attending Provider Active Start: September 02, 2024 Fariba Cota RING CUTTER LATHE OPERATOR, RING CUTTER LATHE OPERATOR-C Referring Provider Active Start: September 02, 2024 Team Status: Inactive Member Role Status Dates ANA SANCHEZ Primary Care Provider Active Start : September 02, 2024 End: September 02, 2024 Fariba Cota RING CUTTER LATHE OPERATOR, RING CUTTER LATHE OPERATOR-C Attending Provider Active Start: September 02, 2024 End: September 02, 2024 Fariba Cota RING CUTTER LATHE OPERATOR, RING CUTTER LATHE OPERATOR-C Referring Provider Active Start: September 02, 2024 End: September 02, 2024 Team Status: Active Member Role Status Dates Tenisha Reyna CNM Attending Provider Active S tart: September 02, 2024 Tenisha Reyna CNM Referring Provider Active S tart: September 02, 2024 ANA SANCHEZ Primary Care Provider Active Start : September 02, 2024 Team Status: Inactive Member Role Status Dates Tenisha Reyna CNM Attending Provider Active S tart: September 02, 2024 End: September 02, 2024 Tenisha Reyna CNM Referring Provider Active S tart: September 02, 2024 End: September 02, 2024 ANA SANCHEZ Primary Care Provider Active Start : September 02, 2024 End: September 02, 2024 Team Status: Active Member Role Status Dates Tenisha Reyna CNM Attending Provider Active S tart: September 09, 2024 Tenisha Reyna CNM Referring Provider Active S tart: September 09, 2024 ANA SANCHEZ Primary Care Provider Active Start : September 09, 2024 Team Status: Inactive Member Role Status Dates No Primary Care Physician Referring Provider Active Start: September 09, 2024 End: September 09, 2024 Tenisha Reyna CNM Attending Provider Active S tart: September 09, 2024 End: September 09, 2024 ANA SANCHEZ Primary Care Provider Active Start : September 09, 2024 End: September 09, 2024 Reason for Visit (unrecogniz ed section and content) Reason Comments Shortness of Breath Generalized Body Aches Specialty Diagnoses / Procedures Referred By Contac t Referred To Contact Diagnoses Pneumonia PNA (pneumonia) Marilee Dallas, DO [address] [place] [address] [facility] Referral ID Status Reason Start Date Expiration Date Visits Re quested Visits Authorized [id number] 1 1 Reason Comments Cough Pt states [...] Discontinued 2007 (Given - Provider: Stacy Daniel, RN) 0815 (Given - Provider: Calli Meyer, RN)2018 (Given - Provider: Machelle Garrett, RN) 08 (Given - Provider: Susi Rain, JOANIE) albumin human 25 % injection 50 g (COMPLETED) 50 g, Intravenous, Administer over 60 Minutes, ONCE, 1 dose, On Fri10/13/23 at 0630, At [facility], in emergencies, administer as rapidly as necessary [...] Nebulization, EVERY 4 HOURS, First dose on 10/11/23 at 0045, Until Discontinued 025 (Given - Provider: Jhoana Kolb RCP)0734 (Given - Provider: Elsa Guzman RRT)1131 (Given - Provider: Elsa Guzman RRT) Ipratropium-albuterol (DUONEB) 0.5-2.5 (3) MG/3ML nebulizer solution 3 mL 3 mL, Nebulization, EVERY 6 HOURS NON-STANDARD, First dose (after last modification) on 10/12/23 at 1900, Until Discontinued 1911 (Given - Provider: Roxana Hamm RRT) 0011 (Given - Provider: Roxana Hamm RRT)0728 (Given - Provider: Brooke Amaro RRT)1333 (Given - Provider: Brooke Amaro RRT)1915 (Given - Provider: Roxana Hamm RRT) 0034 (Given - Provider: Roxana Hamm RRT)0737 (Given - Provider: Elsa Guzman RRT)1202 (Given - Provider: Elsa Guzman, GEOPHYSICS SCIENTIST) Labetalol (NORMODYNE) tablet 200 mg 200 mg, Oral, EVERY 12 HOURS, First dose on Fri10/14/23 at 0900, Until Discontinued 0828 (Given - Provider: Susi Rain, JOANIE) Lactated ringers IV solution 1,000 mL (COMPLETED) 1,000 mL, Intravenous, ONCE, 1 dose, On Fri10/12/23 at 1445 1426 ($$New Bag$$ - Provider: Calli Meyer RN)1600 (Stopped - Provider: Calli Meyer RN) lamoTRIgine (laMICtal) tablet 200 mg 200 mg, Oral, DAILY, First dose on Fri10/11/23 at 0945, Until Discontinued 0855 (Given - Provider: Calli Meyer RN) 0815 (Given - Provider: Calli Meyer RN) 0829 (Given - Provider: Susi Rain RN) levoFLOXacin (LEVAQUIN) 750 mg in dextrose 5% premix IVPB (CANCELED) 750 mg, Intravenous, Administer over 90 Minutes, EVERY 24 HOURS, First dose on Fri10/11/23 at 1230, Until Discontinued 1305 ($$New Bag$$ - Provider: Calli Meyer RN)1435 (Stopped - Provider: Calli Meyer RN) levoFLOXacin (LEVAQUIN) tablet 750 mg 750 mg, Oral, DAILY, First dose on Fri10/13/23 at 1015, Until Discontinued, Avoid antacid, iron, dairy, sucralfate, and tube feed administration for 1 hour before and 2 hours after dose. 1027 (Given - Provider: Calli Meyer RN) 0828 (Given - Provider: Susi aRin, JOANIE) Loratadine (CLARITIN) tablet 10 mg 10 mg, Oral, DAILY, First dose on Fri10/11/23 at 0945, Until Discontinued 0855 (Given - Provider: Calli Meyer RN) 0817 (Not Given - Provider: Calli Meyer RN - Reason: Patient/family refused) 0828 (Given - Provider: Susi Rain, JOANIE) Magnesium sulfate 2 g/50 ml in sterile water premix IVPB 2 g 50 mL (total volume) 2 g, Intravenous, Administer over 4 Hours, DAILY, First dose on Fri10/12/23 at 0600, Until Discontinued, Give if magnesium is less than 2 on morning labs. Infuse at a rate of 0.5 gm/hour. 0638 (Not Given - Provider: Stacy Daniel RN - Reason: Order Parameters not met) 0637 (Not Given - Provider: Stacy Daniel RN - Reason: Order Parameters not met) 0611 (Not Given - Provider: Machelle aGrrett RN - Reason: Order Parameters not met) methylPREDNISolone sodium succinate (SOLU-MEDROL) injection 80 mg 80 mg, Intravenous, EVERY 8 HOURS, First dose on 10/11/23 at 0000, Until Discontinued 0626 (Given - Provider: Stacy Daniel RN)1305 (Given - Provider: Calli Meyer, RN)2206 (Given - Provider: Stacy Daniel RN) 0537 (Given - Provider: Stacy Daniel RN)1313 (Given - Provider: Calli Meyer, RN)2159 (Given - Provider: Machelle Garrett RN) [...] over 4 Hours, DAILY, First dose on Fri10/11/23 at 0900, Until Discontinued, Give if potassium [...] dose. 0828 (Given - Provider: Susi Rain, JOANIE) Thiamine tablet 100 mg 100 mg, Oral, [...] 10/12/23 at 1330, Until 10/13/23 at 1027 1305 ($$New Bag$$ - Provider: Calli Meyer RN)1841 (Rate/Dose Verify - Provider: Calli Meyer RN) 1412 (Stopped - Provider: Susi Rain, JOANIE) Sodium chloride 0.9% IV solution (CANCELED) Intravenous, at 75 mL/hr, CONTINUOUS, Starting on 10/11/23 at 0000, Until 10/12/23 at 1240 0342 ($$New Bag$$ - Provider: Stacy Daniel RN)0857 (Rate/Dose Verify - Provider: Calli Meyer RN)1017 (Stopped - Provider: Calli Meyer RN) PRN Medication Order 10/12/2023 10/13/2023 10/14/2023 Acetaminophen (TYLENOL) tablet 650 mg 650 mg, Oral, EVERY 4 HOURS NEEDED, Starting on Fri10/10/23 at 2356, Until Fri10/14/23 at 1737, Mild Pain, Oral temp > 100.4 F 1313 (Given - Provider: Calli Meyer, JOANIE) alum/mag hydrox.-simethicone oral suspension 30 mL 30 mL, Oral, EVERY 6 HOURS NEEDED, Starting on 10/11/23 at 0843, Until Fri10/14/23 at 1737, Indigestion, Per 5 mL is equivalent to: (Alum-Mag Hydroxide 200-225 mg and Simethicone 20 mg) and (Alum-Mag Hydroxide 200-200 mg and Simethicone 20 mg) 1854 (Given - Provider: Calli Meyer RN) Docusate (COLACE) capsule 100 mg 100 mg, Oral, 2 TIMES DAILY NEEDED, Starting on Fri10/11/23 at 0843, Until Fri10/14/23 at 1737, Constipation 1st Line Ketorolac (TORADOL) injection 30 mg 30 mg, Intravenous, EVERY 6 HOURS NEEDED, Starting on Fri10/10/23 at 2356, Until Fri10/14/23 at 1737, Moderate Pain 0337 (Given - Provider: Stacy Daniel RN)2009 (Given - Provider: Stacy Daniel RN) [...] Machelle Garrett, JOANIE)1101 (Given - Provider: Susi Kegley, RN) Ondansetron (ZOFRAN) tablet 4 mg(Linked Group [...] Until Tu10/14/23 at 1737, Nausea / Vomiting Or Ondansetron [...] BE BASED ON THE PRIMARY CLINICAL RECORDS. [facility] provides no warranty or guarantee of the accuracy or completeness of information in this document.
--- OUTSIDE RECORDS SUMMARY | 2024-09-12 07:23 | XMS RPT_ITS | CCD ---
Author Organization [facility] Care Team Providers Care Window Shade Cutter And Mounter Name Role Phone FADILLON Jernigan Unavailable Unavailable MARISSA HOOPER Unavailable Unavailable FADILLON Jernigan Unavailable Unavailable MARISSA HOOPER Unavailable Unavailable Pending Provider Unavailable Unavailable Unavailable Unavailable Dr. Beverley Moncada Attending Provider [phone] LAURA PEREZ Primary Care Provider UnavailLAURA Renteria Referring Provider Unavailable Beata RN ACUTE CARE, RN ACUTE CARE-C Fariba Attending Provider [phone] Dr. Beverley Moncada Referring Provider [phone] Dr. Beverley Moncada Other Provider DEAN Jones Attending Provider DEAN Jones Other Provider Dr. Nenita Wells Attending Provider Dr. Beverley Moncada Attending Provider Care Physician, No Primary Primary Care Provider Unavailable Dr. Nenita Wells Admit Provider Dr. Nenita Wells Referring Provider Dr. Nenita Wells Other Provider DEAN Reyna Attending Provider Beata RN ACUTE CARE, RN ACUTE CARE-C Fariba Attending Provider Care Physician, No Primary Referring Provider Un available [place] RN ACUTE CARE, RN ACUTE CARE-C Radha Attending Provider LAURA PEREZ Primary Care [...] Referring Unavailable SIDELL, LAURA Primary Care Unavailable [place] DRAPERY WORKER, Laura Primary Care Provider [phone] [place] DRAPERY WORKER, Laura Primary Care Provider [phone] MARILEE DALLAS Attending Unavailable SIDELL, LAURA Primary [...] Dr. Nenita Wells MD Attending Provider [phone] Dr. Nenita Wells MD Referring Provider Fariba Martini Attending Provider [phone] Dr. Beverley Moncada DO Attending Provider Dr. Nenita Wells MD Other Provider [phone] Tenisha Reyna CNM Attending Provider [phone] Care Physician, No Primary Primary Care Provider Unavailable Care Physician, No Primary Referring Provider Un available Dr. Nenita Wells MD Attending Provider Dr. Nenita Wells MD Referring Provider Tenisha Reyna CNM Referring Provider [phone] Care Physician, No Primary Primary Care Provider Unavailable Care Physician, No Primary Referring Provider Un available Beata TURK-Fariba Schulte Attending Provider Dr. Beverley Moncada DO Other Provider [phone] LAURA PEREZ Primary Care Provider LAURA PEREZ Primary Care Provider Unavailjung Cota RN ACUTE CARE-C, Fariba Referring Provider [phone] Nenita Wells Attending Unavailable Care Physician, No Primary Primary Care Unava ilable Care Physician, No Primary Referring Unava ilable Care Physician, No Primary Referring Unava ilable RUSSELL MCKINLEY Primary Care Unavailable Nenita Wells Attending Unavailable Care Physician, No Primary Referring Unava ilable Beata RN ACUTE CARE, Fariba Attending Unavailable ARLEN, RUSSELL Primary Care Unavailable Tenisha Reyna Attending Unavailable Tenisha Reyna Referring Unavailable ARLEN, RUSSELL Primary Care Unavailable Nenita Wells Attending Unavailable Care Physician, No Primary Primary Care Unava ilable Nenita eWlls Referring Unavailable Care Physician, No Primary Referring [...] Referring Unavailable RUSSELL MCKINLEY Primary Care Unavailable [place] RN ACUTE CARE, Fariba Attending Unavailable [place] RN ACUTE CARE, Fariba Referring Unavailable RUSSELL MCKINLEY Primary Care [...] Physician, No Primary Referring Unava ilable Beata RN ACUTE CARE, Fariba Attending Unavailable Care Physician, No Primary Referring Unava ilable Care Physician, No Primary Primary Care Unava ilable Beverley Moncada Attending Unavailabl e Marcanthony, Nenita Attending Unavailable Marcanthony, Nenita Referring Unavailable Axel, Tenisha Referring Unavailable Axel, Tenisha Attending Unavailable RUSSELL MCKINLEY Primary Care Unavailable Marcanthsolomon, Nenita Attending Unavailable Care Physician, No Primary Primary Care Unava ilable Marcanthony, Nenita Referring Unavailable Care Physician, No Primary Primary Care Unava ilable Axel, Tenisha Referring Unavailable Axel, Tenisha Attending Unavailable Care Physician, No Primary Referring Unava ilable Care Physician, No Primary Primary Care Unava ilable Beata RN ACUTE CARE, Fariba Attending Unavailable Marcanthony, Nenita Attending Unavailable [...] Penicillins Drug allergy (disorder) [facility] Repository (1 source) Penicillins; Translations: [Penicillins] Allergy to drug (finding) [facility] [address] Work Phone: (1 source) Tdap; Translations: [Tdap] Allergy to drug (finding) [facility] [address] Work Phone: (17 sources) Amoxicillin Drug Allergy [address] [facility] (18 sources) insect venom; Translations: [insect venom] Allergy to substance 2 unknown, Swelling [facility] Comment on above: Bee stings (17 sources) Pertussis Vaccines Allergy to substance [address] [facility] Comment on above: Unkonwn reaction. On ly had 1 vaccine due to some reaction- Has had a TDAP since and no reaction (6 sources) Chlorhexidine; Translations: [chlorhexidine containing compounds] Drug Allergy Eruption of skin (disorder) [facility] (6 sources) Penicillin; Translations: [penicillin] Drug Allergy Eruption (morphologic abnormality) [facility] (1 source) ALLERGIES NOT ON FILE; Translations: [ALLERGIES NOT ON FILE] Propensity to adverse reactions (disorder) [facility] Repository (1 source) Amoxicillin Drug Allergy [address] [place] [address] Repository (1 source) Pertussis Vaccine Drug Allergy 5 [facility] Medications Current Medications Medication Drug Class(es) [...] 5:14pm Start: 05-07-2019 take 1 capsule by [facility] once daily as needed Zyrtec Liquid [...] Daily, # 90 tab(s), Refills(s) 1, Pharmacy: [facility], 163, cm, 11/14/20 14:03:00 EDT, Height/Length [...] 0 Start Date: 05/07/19 Status: Ordered Multivit 96-Jlcf-Topyki 1-Dha (Pnv-Dha) 27 mg iron-1 mg -300 [...] bedtime), # 90 tab(s), Refills(s) 1, Pharmacy: [facility], 163, cm, 10/01/22 9:32:00 EDT, Height/Length Dosing, 111.7, kg, 10/01/22 9:32:00 EDT, Weight Dosing Start Date: 10/01/22 Status: Ordered Start: 06-07-2021 take 1 tablet by [facility] once daily at bedtime traZODONE 50 mg Tab 50 mg = 1 tab(s), Oral, Once a day (at bedtime), # 90 tab(s), Refills(s) 1, Pharmacy: [facility], 163, cm, 11/14/20 14:03:00 EDT, Height/Length [...] 2100, Until Discontinued 20 ml albumin human, chcf 250 mg/ml injection (1 source) Human Serum Albumin Start: 10-13-2023 End: 10-13-2023 50 g, Intravenous, Administer over 60 Minutes, ONCE, 1 dose, On Fri10/13/23 at 0630, At [facility], in emergencies, administer as rapidly as necessary [...] tab(s), Oral, Daily, 84 tab(s), Refill(s) 1, [facility], 163, cm, 11/14/20 14:03:00 EDT, Height/Length [...] 1 capsule by mouth once daily Pnv 582-Imce-Ojzpin-Dha (Vitafol Fe Plus) 90 mg iron- 1 mg-200 mg capsule Discontinued 1 NMA PO DAILY December 07, 2021 12:00am July 30, 2022 11:10am Start: 12-07-2021 End: 07-30-2022 take 1 capsule by mouth once daily Pnv 420-Yofe-Zagtfi-Dha (Vitafol Fe Plus) 90 mg iron- 1 mg-200 mg capsule Discontinued 1 CAP PO DAILY December 07, 2021 12:00am July 30, 2022 11:10am Start: 12-07-2021 take 1 capsule by [facility] once daily Pnv 232-Afvz-Amdhpb-Dha (Vitafol Fe Plus) 90 mg iron- 1 [...] 10-Apr-2016 Active take 2 tablets by mo [facility] once daily lamoTRIgine 100 MG tablet [...] Onset: 09-13-2022 Other aftercare (1 source) Other detention (current) drug therapy; Translations: [Other detention (current) drug therapy] Onset: 09-13-2022 Episodic Other [...] unspecified trimester] 04-22-2022 Chronic Comment on above: [id number] 45-needs w eekly NST/BPP at 34 weeks- needs 36 week US weekly nsts at 34 an d growth US 32 and 36 [id number] 45-needs w eekly NST at 34 weeks- [...] above: PRR. , HITESH 5, boy,Emily Ball [id number], girl, Ernie ernandez HITESH 06/30/22, Jimmy Alvarado [...] eson 09-09-2024 Biophysical Prof W/O Muna Bhakta [facility] Imaging Services [address] [place], [place] [id number] Biophysical Prof W/O Muna Bhakta MR#: [id number] Acct: [id number] Name: ANAI WOO Rep #: [id number] : 1995 F 29 From: Rodriguez snow MD PCP: Status: REG CLI Study: Biophysical Prof W/O Non Stres Date of Exam: 0 09/09/24 Exam# [id number] Ordering Dr: Tenisha Reyna CNM PROCEDURE: BIOPHYSICAL [...] IMPRESSION: Normal biophysical profile score. Reading Location: [place] [address] CC: DEAN PEREZ Boat Hoist Operator Helper: Signed Normal [facility] Junior Account Executive Office Visit Reporton 09-09-2024 Junior Account Executive Office Visit Report [facility] [address], [address] [place] [address] OFFICE VISIT Date of Service: 09/09/24 MR#: [id number] Acct: [id number] Name: ANAI WOO Rep #: [id number] : 1995 Provider: DEAN Massey ams Age/Sex: 29/F Location: [facility] Status: Signed Intake Vital Signs 07/27/24 13:40 09/02/24 11:25 09/09/24 14:13 Height 5 ft 4 in 5 ft 4 in 5 ft 4 in Weight: 284 lb BMI 48.7 BP 126/82 H Intake Visit Reasons: 38 wk ob Chief Complaint: 38 Week OB Gum Machine Operator Required: No Is patient in pain?: No [...] 1 current occupational status: employed current occupation: [employer] current occupational exposures/hazards: No pets and animals: [...] 3-4 times per week duration: 30-45 minutes/day katherine/presybeterian: None seatbelt use: always do you feel safe at home: Yes additional social history: 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 Date Name GA/Weeks Outcome Route Bth Weight Infant Gen Labor Lgth Anesthesia Del Locatn Provider FOB 06/09/22 Finlee 37 live - full term 7#2 Female epidural [facility] rolo Ajit Alvarado Delivery Date: 06/09/22 [...] 02/18/24 -???-???-???-???-???- (more content not included)... Normal [facility] Biophysical Prof W/O Non Str eson 09-02-2024 Biophysical Prof W/O Non Stres [facility] Imaging Services [address] [place] [address] Biophysical Prof W/O Non Stres MR#: [id number] Acct: [id number] Name: ANAI WOO Rep #: [id number] : 1995 F 29 From: Rodriguez snow MD PCP: Status: REG CLI Study: Biophysical Prof W/O Non Stres Date of Exam: 0 09/02/24 Exam# [id number] Ordering Dr: Tenisha Reyna CNM PROCEDURE: BIOPHYSICAL [...] Stres IMPRESSION: Normal biophysical profile. Reading Location: [place] [address] CC: DEAN Reyna; LAURA PEREZ Boat Hoist Operator Helper: Signed Normal [facility] Glucose Challenge Gest 1H 50 aurelia 09-02-2024 GLU GEST 50g 1H 91 mg/dL Normal 70-[address] [facility] Comment on above: Performed By: #### M 100.2000, M100.3200 #### [facility] Laboratory [address] [place], [address] Glucose measurement at 2 amanda rs post-dose gestational glucose tolerance testOrdered By: Nenita Wells on 09-02-2024 Glucose [Mass/Vol] 91 mg/dL 70-140 [facility] Laboratory - Chemistry and C hemistry - challengeOrdered By: Fariba Cota on 09-02-2024 Glucose Ql (U) Negative [facility] Laboratory - UrinalysisOrder ed By: Fariba Cota on 09-02-2024 Protein Ql (U) Negative [facility] Junior Account Executive Office Visit Reporton 09-02-2024 Junior Account Executive Office Visit Report [facility] [address], [address] [place] [address] OFFICE VISIT Date of Service: 09/02/24 MR#: [id number] Acct: [id number] Name: ANAI WOO Rep #: [id number] : 1995 Provider: NAMITA dubose Age/Sex: 29/F Location: [facility] Status: Signed Intake Vital Signs 07/27/24 13:40 08/26/24 13:15 09/02/24 11:25 Height 5 ft 4 in 5 ft 4 in 5 ft 4 in Weight: 282 lb 4 oz BMI 48.4 BP 120/84 H Intake Visit Reasons: 37 wk ob Chief Complaint: 37 Week OB Gum Machine Operator Required: No Is patient in pain?: No [...] 1 current occupational status: employed current occupation: [employer] current occupational exposures/hazards: No pets and animals: [...] 3-4 times per week duration: 30-45 minutes/day katherine/presybeterian: None seatbelt use: always do you feel safe at home: Yes additional social history: 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 Date Name GA/Weeks Outcome Route Bth Weight Gen Labor Lgth Anesthesia Del Locatn Provider FOB 06/09/22 Rahul 37 live - full term 7#2 Female epidural [facility] rolo Alvarado Delivery Date: 06/09/22 Last [...] 02/18/24 -???-???-???-?? (more content not included)... Normal [facility] Rule out Beta Strep (Grp. B) on 08-28-2024 PATRICIA Group B Beta Streptococcus is not isolated. Normal [facility] Comment on above: Performed By: #### M 100.9751 #### [facility] Laboratory [address] [place], [address] Biophysical Prof W/O Non Str eson 08-26-2024 Biophysical Prof W/O Non Stres [facility] Imaging Services [address] [place], [place] [address] Biophysical Prof W/O Non Stres MR#: [id number] Acct: [id number] Name: ANAI WOO Rep #: [id number] : 1995 F 29 From: Maik Munoz DO PCP: Status: REG CLI Study: Biophysical Prof W/O Non Stres Date of Exam: 0 08/26/24 Exam# [id number] Ordering Dr: Tenisha Reyna CNM PROCEDURE: BIOPHYSICAL [...] by current prior ultrasound: 09/11/2019 Reading Location: [facility] CC: CNM Tenisha Axel; LAURA SIDELL Boat Hoist Operator Helper: Signed Normal [facility] Laboratory - Chemistry and C hemistry - challengeOrdered By: Nenita Wells on 08-26-2024 Glucose Ql (U) Negative [facility] Laboratory - UrinalysisOrder ed By: Nenita Wells on 08-26-2024 Protein Ql (U) Negative [facility] OB Limited With Biometricson 08-26-2024 OB Limited With Biometrics [facility] Imaging Services [address] [place], [place] [address] OB Limited With Biometrics MR#: [id number] Acct: [id number] Name: ANAI WOO Rep #: [id number] : 1995 F 29 From: Rodriguez snow MD PCP: Status: REG CLI Study: OB Limited With Biometrics Date of Exam: 08/26 Exam# [id number] Ordering Dr: Nenita Wells PROCEDURE: OB LIMITED [...] with the normal expected range. Reading Location: [place] [address] CC: LAURA PEREZ; Dr. Nenita Wlels MD Boat Hoist Operator Helper: Signed Normal [facility] Junior Account Executive Office Visit Reporton 08-26-2024 Junior Account Executive Office Visit Report [facility] [address], [address] [place] [address] OFFICE VISIT Date of Service: 08/26/24 MR#: [id number] Acct: [id number] Name: ANAI WOO Rep #: [id number] : 1995 Provider: Dr. Nenita husain MD Age/Sex: 29/F Location: [facility] Status: Signed Intake Vital Signs 06/30/24 14:36 08/11/24 13:01 08/26/24 13:14 08/26/24 13:15 Height 5 ft 4 in 5 ft 4 in 5 ft 4 in 5 ft 4 in Weight: 281 lb 4 oz BMI 48.2 BP 119/80 Intake Visit Reasons: 36wk ob Gum Machine Operator Required: No Is patient in pain?: No [...] 1 current occupational status: employed current occupation: [employer] current occupational exposures/hazards: No pets and animals: [...] 3-4 times per week duration: 30-45 minutes/day katherine/presybeterian: None seatbelt use: always do you feel safe at home: Yes additional social history: Emily- Christian[employer]- 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 Date Name GA/Weeks Outcome Route Bth Weight Infant Gen Labor Lgth Anesthesia Del Locatn Provider FOB 06/09/22 Finlee 37 live - full term 7#2 Female epidural [facility] rolo lAvarado Delivery Date: 06/09/22 Last Updated by: Sandy [...] 02/18/24 -???-???-???-???-?? (more content not included)... Normal [facility] Screening beta-hemolytic Str eptococcus cultureOrdered By: Nenita Wells on 08-26-2024 Beta-hemolytic Streptococcus culture Group B Beta Streptococcus is not isolated. [facility] Biophysical Prof W/O Non Str eson 08-19-2024 Biophysical Prof W/O Non Ninoskas [facility] Imaging Services [address] [place] [address] Biophysical Prof W/O Muna Bhakta MR#: [id number] Acct: [id number] Name: SOLEANAI LOPEZ Rep #: [id number] : 1995 F 29 From: Rodriguez snow MD PCP: LAURA PEREZ Status: REG CLI Study: Biophysical Prof W/O Non Stres Date of Exam: 0 08/19/24 Exam# [id number] Ordering Dr: Tenisha Reyna CNM PROCEDURE: BIOPHYSICAL [...] Stres IMPRESSION: Normal biophysical profile. Reading Location: [id number] CC: DEAN PEREZ Boat Hoist Operator Helper: Signed Normal [facility] OB Triage Physician Noteon 0 08-19-2024 OB Triage Physician Note [facility] Medical Records Department [address] [place] [address] OB Triage Physician Note 08/19/24 0020 MR#: [id number] Acct: [id number] Name: ANAI WOO Rep #: [id number] : 1995 29 From: Beverley Moncada DO PCP: Care Physician,No Primary Status:DEP CLI Y Location: [facility] HPI - General General Date of Admission: 08/11/24 HPI Narrative ANAI WOO, is a 29 @ 34 weeks 1 day F who presents to [facility] for prolonged monitoring for bpp 08/29 Maternal [...] 1 current occupational status: employed current occupation: [employer] current occupational exposures/hazards: No pets and animals: [...] 3-4 times per week duration: 30-45 minutes/day katherine/presybeterian: None seatbelt use: always do you feel safe at home: Yes additional social history: 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 Date Name GA/Weeks Outcome Route Bth Weight Gen Labor Lgth Anesthesia Del Locatn Provider FOB 06/09/22 Finlee 37 live - full term 7#2 Female epidural [facility] rolo Alvarado Delivery Date: 06/09/22 Last [...] dates HITESH (more content not included)... Normal [facility] ([facility]) Rupture Of Membraneson 08-11-2024 ROM Negative Normal Negative [facility] Comment on above: Result Comment: Amni otic fluid not present indicates No Rupture of Membranes at time of specimen collection. Performed By: #### L 205.1000 ####[facility] [id number] [facility] [place], [place], [address] Biophysical Prof W/O Non Str eson 08-11-2024 Biophysical Prof W/O Non Stres [facility] Imaging Services [address] [place], [place] [address] Biophysical Prof W/O Non Stres MR#: [id number] Acct: [id number] Name: ANAI WOO Rep #: [id number] : 1995 F 29 From: Rodriguez snow MD PCP: Care Physician,No Primary Status: REG CLI Study: Biophysical Prof W/O Non Stres Date of Exam: 0 08/11/24 Exam# [id number] Ordering Dr: Tenisha Reyna CNM PROCEDURE: BIOPHYSICAL [...] IMPRESSION: biophysical profile score: 6/8. Reading Location: [place] [address] CC: DEAN Reyna; No Primary Care Physician Boat Hoist Operator Helper: Signed Normal [facility] Laboratory - Chemistry and C hemistry - challengeOrdered By: Beverley Vázquez on 08-11-2024 Glucose Ql (U) Negative [facility] Laboratory - UrinalysisOrder ed By: Beverley Vázquez on 08-11-2024 Protein Ql (U) Negative [facility] Junior Account Executive Office Visit Reporton 08-11-2024 Junior Account Executive Office Visit Report [facility] [address], [address] [place] [address] OFFICE VISIT Date of Service: 08/11/24 MR#: [id number] Acct: [id number] Name: ANAI WOO Rep #: [id number] : 1995 Provider: Dr. Beverley Zambrano DO Age/Sex: 29/F Location: [facility] Status: Signed Intake Vital Signs 06/30/24 14:36 07/27/24 13:40 08/11/24 10:10 Height 5 ft 4 in 5 ft 4 in 5 ft 4 in Weight: 277 lb 8 oz BMI 47.6 BP 121/87 H Intake Visit Reasons: 34wk ob Gum Machine Operator Required: No Is patient in pain?: No [...] 1 current occupational status: employed current occupation: [employer] current occupational exposures/hazards: No pets and animals: [...] 3-4 times per week duration: 30-45 minutes/day katherine/presybeterian: None seatbelt use: always do you feel safe at home: Yes additional social history: 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 Date Name GA/Weeks Outcome Route Bth Weight Infant Gen Labor Lgth Anesthesia Del Locatn Provider FOB 06/09/22 Finlee 37 live - full term 7#2 Female epidural [facility] rolo Alvarado Delivery Date: 06/09/22 Last [...] -???-???-???-???-???-??? -???-???-???-???-? (more content not included)... Normal [facility] Laboratory - Chemistry and C hemistry - challengeOrdered By: Tenisha Reyna on 07-27-2024 Glucose Ql (U) Negative [facility] Laboratory - UrinalysisOrder ed By: Tenisha Reyna on 07-27-2024 Protein Ql (U) Negative [facility] OB Limited With Biometricson 07-27-2024 OB Limited With Biometrics [facility] Imaging Services [address] [place] [address] OB Limited With Biometrics MR#: [id number] Acct: [id number] Name: ANAI WOO Rep #: [id number] : 1995 F 29 From: Nick Schreiber MD PCP: Care Physician,No Primary Status: REG CLI Study: OB Limited With Biometrics Date of Exam: 07/27 Exam# [id number] Ordering Dr: Nenita Wells PROCEDURE: OB LIMITED [...] represent a possible placental Pop. Reading Location: [id number] CC: Dr. Nenita Wells MD; No Primary Care Physician Boat Hoist Operator Helper: Signed Normal [facility] Junior Account Executive Office Visit Reporton 07-27-2024 Junior Account Executive Office Visit Report [facility] [address], [address] [place] [address] OFFICE VISIT Date of Service: 07/27/24 MR#: [id number] Acct: [id number] Name: ANAI WOO Rep #: [id number] : 1995 Provider: DEAN Massey ams Age/Sex: 29/F Location: [facility] Status: Signed Intake Vital Signs 06/16/24 14:12 07/13/24 14:55 07/27/24 13:40 Height 5 ft 4 in 5 ft 4 in 5 ft 4 in Weight: 278 lb 2 oz BMI 47.7 BP 126/86 H Intake Visit Reasons: 32wk ob Chief Complaint: 32wk OB Gum Machine Operator Required: No Is patient in pain?: No [...] 1 current occupational status: employed current occupation: [employer] current occupational exposures/hazards: No pets and animals: [...] 3-4 times per week duration: 30-45 minutes/day katherine/presybeterian: None seatbelt use: always do you feel safe at home: Yes additional social history: 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 Date Name GA/Weeks Outcome Route Bth Weight Gen Labor Lgth Anesthesia Del Locatn Provider FOB 06/09/22 Rahul 35 live - full term 7#2 Female epidural [facility] rolo Alvarado Delivery Date: 06/09/22 Last [...] -???-???-???-???-???-??? -???-???-???-???-??? (more content not included)... Normal [facility] Junior Account Executive Office Visit Reporton 07-13-2024 Junior Account Executive Office Visit Report [facility] [address] [place] [address], [address] [place] [address] OFFICE VISIT Date of Service: 07/13/24 MR#: [id number] Acct: [id number] Name: ANAI WOO Rep #: [id number] : 1995 Provider: Dr. Nenita husain MD Age/Sex: 29/F Location: [facility] Status: Signed Intake Vital Signs 06/16/24 14:12 06/30/24 14:36 07/13/24 14:55 Height 5 ft 4 in 5 ft 4 in 5 ft 4 in Weight: 275 lb 6 oz BMI 47.2 BP 117/76 Intake Visit Reasons: 30wk ob Gum Machine Operator Required: No Is patient in pain?: No [...] 1 current occupational status: employed current occupation: [employer] current occupational exposures/hazards: No pets and animals: [...] 3-4 times per week duration: 30-45 minutes/day katherine/presybeterian: None seatbelt use: always do you feel safe at home: Yes additional social history: 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 Date Name GA/Weeks Outcome Route Bth Weight Gen Labor Lgth Anesthesia Del Locatn Provider FOB 06/09/22 Finlee 37 live - full term 7#2 [facility] Delivery Date: 06/09/22 Last Updated [...] - 9w (more content not included)... Normal [facility] Absolute lymphocyte countOrd ered By: Beverley Baronetracey on 06-30-2024 Lymphocytes Auto (Unsp spec) [#/Vol] 2.65 10*3/uL 0.83-4.[address] [facility] Absolute neutrophil countOrd ered By: Beverley Kathie on 06-30-2024 Neutrophils (Bld) [#/Vol] 9.7 10*3/uL High 2.0-7.[address] [facility] Automated lymphocyte count a s percentage of total leukocytesOrdered By: Beverley Kathie on 06-30-2024 Lymphocytes/100 WBC Auto (Unsp spec) 20.0 % 19-[address] [facility] Basophil percentageOrdered B y: Beverley Kathie on 06-30-2024 Basophils/100 WBC (Bld) 0.2 % 0-[address] [facility] CBC W/Diff, Automatedon 04-0 Absolute Lymph 2.65 X10 3/uL Normal 0.83-4.[address] [facility] Comment on above: Performed By: #### M , M1.3200 #### [facility] [address] [place], [address] Absolute Neut 9.7 X10 3/uL High 2.0-7.[address] [facility] Comment on above: Performed By: #### M , M100.3200 #### [facility] [address] [place], [address] Basophils/100 WBC (Bld) 0.2 % Normal 0-[address] [facility] Comment on above: Performed By: #### M , .0 #### [facility] [address] [place], [address] Eosinophils/100 WBC (Bld) 1.6 % Normal 0-[address] [facility] Comment on above: Performed By: #### M , .0 #### [facility] [address] [place], [address] Erythrocyte distribution width (RBC) [Ratio] 15.4 % High 11.6-14.[address] [facility] Comment on above: Performed By: #### M , .0 #### [facility] [address] [place], [address] Hematocrit (Bld) [Volume fraction] 39.7 % Normal 37-[address] [facility] Comment on above: Performed By: #### M , .0 #### [facility] [address] [place], [address] Hemoglobin (Bld) [Mass/Vol] 13.1 g/dL Normal 12.0-15.[address] [facility] Comment on above: Performed By: #### M , .0 #### [facility] [address] [place], [address] IG% 0.800 Normal 0.0-0.[address] [facility] Comment on above: Result Comment: IG% - Immature Granulocytes (promyelocytes, myelocytes and metamyelocytes) > 1% indicates that a LEFT SHIFT is Present. Performed By: #### M , .0 #### [facility] [address] [place], [address] Lymphocytes/100 WBC (Bld) 20.0 % Normal 19-[address] [facility] Comment on above: Performed By: #### M , M1 #### [facility] [address] [place], [address] MCH (RBC) [Entitic mass] 28.1 pg Normal 27.0-32.[address] [facility] Comment on above: Performed By: #### M , .3200 #### [facility] [address] [place], [address] MCHC (RBC) [Mass/Vol] 33.0 g/dL Normal 32-36 [facility] Comment on above: Performed By: #### M , .0 #### [facility] [address] [place], [address] MCV (RBC) [Entitic vol] 85.0 fL Normal 81-[address] [facility] Comment on above: Performed By: #### M , .0 #### [facility] [address] [place], [address] Monocytes/100 WBC (Bld) 4.3 % Normal 0-[address] [facility] Comment on above: Performed By: #### M , .0 #### [facility] [address] [place], [address] Neutrophils/100 WBC (Bld) 73.1 % High 47-[address] [facility] Comment on above: Performed By: #### M , .0 #### [facility] [address] [place], [address] Nucleated RBC (Bld) [#/Vol] 0 10*3/uL Normal 0-[address] [facility] Comment on above: Performed By: #### M , .3200 #### [facility] [address] [place], [address] Platelet mean volume (Bld) [Entitic vol] 10.0 fL Normal 6.2-12.[address] [facility] Comment on above: Performed By: #### M , M100.3200 #### [facility] [address] [place], [address] Platelets (Bld) [#/Vol] 303 10*3/uL Normal 150-[address] [facility] Comment on above: Performed By: #### M , M100.3200 #### [facility] [address] [place], [address] RBC (Bld) [#/Vol] 4.67 10*6/uL Normal 4.2-5.4 [facility] Comment on above: Performed By: #### M , M100.3200 #### [facility] [address] [place], [address] RDW SD 46.7 fl High 35.1-43.[address] [facility] Comment on above: Performed By: #### M , M100.3200 #### [facility] [address] [place], [address] WBC (Bld) [#/Vol] 13.3 10*3/uL High 4.4-11.0 [facility] Comment on above: Performed By: #### M , M100.3200 #### [facility] [address] [place], [address] Eosinophil percentageOrdered By: Beverley Vázquez on 06-30-2024 Eosinophils/100 WBC (Bld) 1.6 % 0-[address] [facility] Erythrocyte distribution wid th (RBC) [Ratio]Ordered By: Beverley Vázquez on 06-30-2024 Erythrocyte distribution width (RBC) [Entitic vol] 46.7 fL High 35.1-43.[address] [facility] Erythrocyte distribution wid th ratioOrdered By: Beverley Vázquez on 06-30-2024 Erythrocyte distribution width (RBC) [Ratio] 15.4 % High 11.6-14.[address] [facility] Erythrocyte distribution wid th standard deviationOrdered By: Beverley Vázquez on 06-30-2024 Erythrocyte distribution width (RBC) [Ratio] 46.7 fl High 35.1-43.[address] [facility] Glucose Challenge Gest 1H 50 aurelia 06-30-2024 GLU GEST 50g 1H 113 mg/dL Normal 70-[address] [facility] Comment on above: Performed By: #### M 100, M100.3200 #### [facility] [address] [facility] [place], [place], [address] Glucose measurement at 2 amanda rs post-dose gestational glucose tolerance testOrdered By: Beverley Vázquez on 06-30-2024 Glucose [Mass/Vol] 113 mg/dL 70-140 [facility] HIVon 06-30-2024 HIV Non-Reactive Normal Nonreactive [facility] Comment on above: Result Comment: Non- Reactive Reactive Repeatedly reactive samples must be confirmed according to CDC recommended confirmatory algorithms. The subresults for either HIVAG or AHIV can be used as an aid in the selection of the confirmation algorithm for reactive samples. Send out specimens with Reactive results to [facility] for confirmation. Order the HIV antibody detection and differentiation: lc#[id number] Performed By: #### M 100, M100.3200 #### [facility] [address] [place], [place], [address] Hematocrit Auto (Bld) [Volum e fraction]Ordered By: Beverley Vázquez on 06-30-2024 Hematocrit (Bld) [Volume fraction] 39.7 % 37-[address] [facility] Hemoglobin measurementOrdere d By: Beverley Vázquez on 06-30-2024 Hemoglobin (Bld) [Mass/Vol] 13.1 g/dL 12.0-15.[address] [facility] Immature granulocytes/100 WB C Auto (Bld)Ordered By: Beverley Vázquez on 06-30-2024 Immature granulocytes/100 WBC (Bld) 0.800 % 0.0-0.[address] [facility] Comment on above: IG% - Immature Granu locytes (promyelocytes, myelocytes and metamyelocytes) > 1% indicates that a LEFT SHIFT is Present. Laboratory - Chemistry and C hemistry - challengeOrdered By: Fariba Cota on 06-30-2024 Glucose Ql (U) Negative [facility] Laboratory - UrinalysisOrder ed By: Fariba Cota on 06-30-2024 Protein Ql (U) Negative [facility] Lymphocytes Auto (Unsp spec) [#/Vol]Ordered By: Beverley Vázquez on 06-30-2024 Lymphocytes (Bld) [#/Vol] 2.65 10*3/uL 0.83-4.[address] [facility] Lymphocytes/100 WBC Auto (Un sp spec)Ordered By: Beverley Vázquez on 06-30-2024 Lymphocytes/100 WBC (Bld) 20.0 % 19-[address] [facility] MCV (mean corpuscular volume ) determinationOrdered By: Beverley Vázquez on 06-30-2024 MCV (RBC) [Entitic vol] 85.0 fL 81-[address] [facility] Mean corpuscular hemoglobin (MCH) determinationOrdered By: Beverley Vázquez on 06-30-2024 MCH (RBC) [Entitic mass] 28.1 pg 27.0-32.[address] [facility] Mean corpuscular hemoglobin concentration (MCHC) determinationOrdered By: Beverley Vázquez on 06-30-2024 MCHC (RBC) [Mass/Vol] 33.0 g/dL 32-36 [facility] Mean platelet volume determi nationOrdered By: Beverley Vázquez on 06-30-2024 Platelet mean volume (Bld) [Entitic vol] 10.0 fL 6.2-12.[address] [facility] Monocyte percentageOrdered B y: Beverley Vázquez on 06-30-2024 Monocytes/100 WBC (Bld) 4.3 % 0-[address] [facility] Neutrophil percentageOrdered By: Beverley Vázquez on 06-30-2024 Neutrophils/100 WBC (Bld) 73.1 % High 47-[address] [facility] No Panel InformationOrdered By: Beverley Vázquez on 06-30-2024 HIV (1&2) Antibody Non-Reactive Nonreactive [facility] Comment on above: Non-ReactiveReactive Repeatedly reactive samples must be confirmed according to CDC recommended confirmatory algorithms. The subresults for either HIVAG or AHIV can be used as an aid in the selection of the confirmation algorithm for reactive samples.Send out specimens with Reactive results to [facility] for confirmation.Order the HIV antibody detection and differentiation: #[id number] Nucleated red blood cell per centageOrdered By: Beverley Vázquez on 06-30-2024 Nucleated RBC/100 WBC (Bld) [Ratio] 0 % 0-[address] [facility] Junior Account Executive Office Visit Reporton 06-30-2024 Junior Account Executive Office Visit Report [facility] [address], [address] [place] [address] OFFICE VISIT Date of Service: 06/30/24 MR#: [id number] Acct: [id number] Name: ANAI WOO Rep #: [id number] : 1995 Provider: NAMITA dubose Age/Sex: 29/F Location: [facility] Status: Signed Intake Vital Signs 06/16/24 14:12 06/21/24 21:15 06/30/24 14:31 06/30/24 14:36 Height 5 ft 4 in 5 ft 4 in 5 ft 4 in 5 ft 4 in Weight: 272 lb 6 oz BMI 46.7 BP 124/86 H Intake Visit Reasons: 28wk ob Chief Complaint: 28 Week OB Gum Machine Operator Required: No Is patient in pain?: No [...] 1 current occupational status: employed current occupation: [employer] current occupational exposures/hazards: No pets and animals: [...] 3-4 times per week duration: 30-45 minutes/day katherine/presybeterian: None seatbelt use: always do you feel safe at home: Yes additional social history: Emily- [employer]- 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 Date Name GA/Weeks Outcome Route Bth Weight Gen Labor Lgth Anesthesia Del Locatn Provider FOB 06/09/22 Finlee 37 live - full term 7#2 Female epidural [facility] rolo Alvarado Delivery Date: 06/09/22 Last [...] Visit Note (more content not included)... Normal [facility] Platelet countOrdered By: Haim Vázquez on 06-30-2024 Platelets (Bld) [#/Vol] 303 10*3/uL 150-[address] [facility] RBC Auto (Bld) [#/Vol]Ordere d By: Beverley Vázquez on 06-30-2024 RBC (Bld) [#/Vol] 4.67 10*6/uL 4.2-5.4 [facility] Syphilis Antibodieson 2024 Syphilis Abs Non-Reactive Normal Nonreactive [facility] Comment on above: Performed By: #### M 100.2000, M100.3200 #### [facility] [address] [place], [place], [address] T. pallidum abOrdered By: Haim chaconrula Kathie on 06-30-2024 Syphilis Total Antibody Non-Reactive Nonreactive [facility] White blood cell (WBC) count Ordered By: Beverley Baronetracey on 06-30-2024 WBC (Bld) [#/Vol] 13.3 10*3/uL High 4.4-11.0 [facility] Genital Culture Comprehensiv martha 06-26-2024 VAC Normal vaginal soumya isolated. No yeast, Gardnerella, Neisseria or beta-hemolytic Streptococcus isolated. Normal [facility] Comment on above: Performed By: #### M 100.1999, M100.3200 #### [facility] [address] [place], [place], [address] Urine Cultureon 06-24-2024 URC Below infection leve l. Mixed Gram Positive Organisms [place] Count 1000-10,000 MIXC Mixed contaminants. Submit a new specimen if indicated. Normal [facility] Comment on above: Performed By: #### M 100.1999, M100.3200 #### [facility] [address] [facility] [place], [address] OB Triage Progress Noteon OB Triage Progress Note [facility] Medical Records Department [address] [facility] [address] OB Triage Progress Note 06/22/24 0038 MR#: [id number] Acct: [id number] Name: ANAI WOO LOPEZ Rep #: [id number] : 1995 29 From: Tenisha Reyna CNM [...] dehydrated. FHT: 135 appropriate for gestational age [place]: no Contractions Assessment and plan: US for [...] pH 6.0 (5.0 - 8.0) Ur Specific [place] 1.030 (1.002-1.030) Urine Protein 30 H (Negative) mg/dl Urine Glucose (UA) Normal (Normal) mg/dl Urine Ketones 5 H (Negative) mg/dl Urine Occult Blood 10 H (Negative) /ul Urine Nitrite Negative (Negative) Urine Bilirubin Negative (Negative) mg/dL Urine Urobilinogen Normal (Normal) mg/dl Ur Leukocyte Esterase 25 H (Negative) /ul Fibronectin Negative Charges/Coding Multi Select Codes Visit Charges Visit Charges: 80491 Subs Hosp L3 Urinary/Genital Urinary/Genital CPT Codes: 47387-52 non-stress test Interp Assessment Plan (1) Vaginal [...] Reyna; No Primary Care Physician Signed Normal [facility] Bilirubin Test strip Ql (U)O rdered By: Tenisha Reyna on 06-21-2024 Bilirubin Ql (U) Negative Negative [facility] Fibronectinon 06-22-19 fFIBRONECTIN Negative Normal [facility] Comment on above: Performed By: #### L 205.0000 ####[facility] [address] [place], [address] fibronectinOrdered By: Tenisha Reyna on 06-21-2024 Fibronectin. (Vag fld) [Mass/Vol] Negative [facility] Fibronectin. (Vag fld) [Mass/Vol]Ordered By: Tenisha Reyna on 06-21-2024 Fibronectin Negative [facility] Genital cultureOrdered By: Prosper Reyna on 06-21-2024 Genital Culture Neisseria or beta-hemolytic Streptococcus isolated. [facility] Source specific culture Neisseria or beta-hemolytic Streptococcus isolated. [facility] Glucose Ql (U)Ordered By: Gen Reyna on 06-21-2024 Urine Glucose (UA) Normal mg/dl Normal [facility] Gram Stainon 06-21-2024 GS Gram Stain 4+ Gram positive rods Rare White Blood Cells No Gram negative diplococci Score = 0 Interpretation: 0-3 Normal, 4-6 Intermediate, 7-10 Positive BV Normal [facility] Comment on above: Performed By: #### M 100.2000, M100.3200 #### [facility] [address] [facility] [place], [address] Gram stainOrdered By: Tenisha Reyna on 06-21-2024 Microscopic observation Gram stain Nom (Unsp spec) [facility] Ketones Test strip Ql (U)Ord ered By: Tenisha Reyna on 06-21-2024 Ketones Ql (U) 5 mg/dl High Negative [facility] Nitrite Test strip Ql (U)Ord ered By: Tenisha Reyna on 06-21-2024 Nitrite Ql (U) Negative Negative [facility] OB Limited With Biometricson 06-21-2024 OB Limited With Biometrics [facility] Imaging Services [address] [place] [address] OB Limited With Biometrics MR#: [id number] Acct: [id number] Name: ANAI WOO Rep #: [id number] : 1995 F 29 From: Daniela Daniels DO PCP: Care Physician,No Primary Status: REG CLI Study: OB Limited With Biometrics Date of Exam: 06/21 Exam# [id number] Ordering Dr: Tenisha Reyna CNM PROCEDURE: OB [...] CC: DEAN Reyna; No Primary Care Physician Boat Hoist Operator Helper: Signed Normal [facility] Protein Test strip Ql (U)Ord ered By: Tenisha Reyna on 06-21-2024 Protein Ql (U) 30 mg/dl High Negative [facility] Urinalysis, Routine (Dipstic k)on 06-21-2024 BILIRUBIN URINE Negative Normal Negative [facility] Comment on above: Order Comment: COSMO CTOR TO SPECIFY Performed By: #### M , .3200 #### [facility] [address] [place], [place], [address] Clarity (U) Clear Normal Clear [facility] Comment on above: Order Comment: COSMO CTOR TO SPECIFY Performed By: #### M , .3200 #### [facility] [address] [place], [address] Color (U) Yellow Normal Yellow [facility] Comment on above: Order Comment: COSMO CTOR TO SPECIFY Performed By: #### M , .3200 #### [facility] [address] [place], [address] GLUCOSE, UR Normal Normal Normal [facility] Comment on above: Order Comment: COSMO CTOR TO SPECIFY Performed By: #### M , .3200 #### [facility] [address] [place], [address] KETONE UR 5 mg/dl Abnormal Negative [facility] Comment on above: Order Comment: COSMO CTOR TO SPECIFY Performed By: #### M , 00.3200 #### [facility] [address] [place], [address] LEUK ESTERASE 25 /ul Abnormal Negative [facility] Comment on above: Order Comment: COSMO CTOR TO SPECIFY Performed By: #### M , .3200 #### [facility] [address] [place], [address] Nitrite Ql (U) Negative Normal Negative [facility] Comment on above: Order Comment: COSMO CTOR TO SPECIFY Performed By: #### M , .3200 #### [facility] [address] [place], [address] OCCULT BLOOD-UR 10 /ul Abnormal Negative [facility] Comment on above: Order Comment: COSMO CTOR TO SPECIFY Performed By: #### M , 00.3200 #### [facility] [address] [place], [address] pH UR 6.0 Normal 5.0 - 8.[address] [facility] Comment on above: Order Comment: COSMO CTOR TO SPECIFY Performed By: #### M , .3200 #### [facility] [address] [place], [address] PROT DIPSTX 30 mg/dl Abnormal Negative [facility] Comment on above: Order Comment: COSMO CTOR TO SPECIFY Performed By: #### M , .3200 #### [facility] [address] [place], [address] SP.GR. DIPSTX 1.030 Normal 1.002-1.[address] [facility] Comment on above: Order Comment: COSMO CTOR TO SPECIFY Performed By: #### M 100.1999, M100.3200 #### [facility] [address] [place], [address] UROBILI Normal Normal Normal [facility] Comment on above: Order Comment: COSMO CTOR TO SPECIFY Performed By: #### M 100.1999, M100.3200 #### [facility] [address] [place], [place], [address] Urine blood detectionOrdered By: Tenisha Reyna on 06-21-2024 Urine Occult Blood 10 /ul High Negative [facility] Urine clarityOrdered By: Des Reyna on 06-21-2024 Clarity (U) Clear Clear [facility] Urine color determinationOrd ered By: Tenisha Reyna on 06-21-2024 Color (U) Yellow Yellow [facility] Urine cultureOrdered By: Des Reyna on 06-21-2024 Bacteria identified Cx Nom (U) Positive Abnormal [facility] Urine glucose detectionOrder ed By: Tenisha Reyna on 06-21-2024 Glucose Ql (U) Normal mg/dl Normal [facility] Urine leukocyte esterase det ection by dipstickOrdered By: Tenisha Reyna on 06-21-2024 Leukocyte esterase Test strip Ql (U) 25 /ul High Negative [facility] Urine pHOrdered By: Tenisha ibarra on 06-21-2024 pH (U) 6.0 [pH] 5.0 - 8.[address] [facility] Urine specific gravity measu rementOrdered By: Tenisha Reyna on 06-21-2024 Specific gravity (U) [Rel density] 1.030 1.002-1.[address] [facility] Urine urobilinogen measureme ntOrdered By: Tenisha Reyna on 06-21-2024 Urobilinogen Ql (U) Normal mg/dl Normal [facility] Urobilinogen Ql (U)Ordered B y: Tenisha Reyna on 06-21-2024 Urine Urobilinogen Normal mg/dl Normal [facility] Junior Account Executive Office Visit Reporton 06-16-2024 Junior Account Executive Office Visit Report [facility], [address] [place] [address] OFFICE VISIT Date of Service: 06/16/24 MR#: [id number] Acct: [id number] Name: ANAI WOO Rep #: [id number] : 1995 Provider: Dr. Beverley Zambrano DO Age/Sex: 29/F Location: [facility] Status: Signed Intake Vital Signs 03/26/24 13:14 04/21/24 13:38 06/16/24 14:12 Height 5 ft 4 in 5 ft 4 in 5 ft 4 in Weight: 272 lb BMI 46.7 BP 125/87 H Intake Visit Reasons: 26 wk ob *do not shorten Gum Machine Operator Required: No Is patient in pain?: No [...] 1 current occupational status: employed current occupation: [employer] current occupational exposures/hazards: No pets and animals: [...] 3-4 times per week duration: 30-45 minutes/day katherine/presybeterian: None seatbelt use: always do you feel safe at home: Yes additional social history: 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 Date Name GA/Weeks Outcome Route Bth Weight Gen Labor Lgth Anesthesia Del Locatn Provider FOB 06/09/22 Finlee 37 live - full term 7#2 Female epidural [facility] Viadsolomon Alvarado Delivery Date: 06/09/22 Last Updated by: [...] Dilation -???-???-???-???-??? (more content not included)... Normal [facility] Laboratory - Chemistry and C hemistry - challengeon 04-21-2024 Glucose Ql (U) Negative [facility] Laboratory - Urinalysison Protein Ql (U) Negative [facility] Junior Account Executive Office Visit Reporton 04-21-2024 Junior Account Executive Office Visit Report [facility] [address], [address] [place] [address] OFFICE VISIT Date of Service: 04/21/24 MR#: [id number] Acct: [id number] Name: ANAI WEBBER Rep #: [id number] : 1995 Provider: NAMITA dubose Age/Sex: 28/F Location: [facility] Status: Signed Intake Vital Signs 03/26/24 13:14 04/21/24 13:38 Height 5 ft 4 in 5 ft 4 in Weight: 270 lb 6 oz 270 lb BMI 46.4 46.3 BP 118/81 H 111/76 Intake Visit Reasons: 18 wk ob Chief Complaint: 18 Week OB Gum Machine Operator Required: No Is patient in pain?: No [...] 1 current occupational status: employed current occupation: [employer] current occupational exposures/hazards: No pets and animals: [...] 3-4 times per week duration: 30-45 minutes/day katherine/presybeterian: None seatbelt use: always do you feel safe at home: Yes additional social history: Emily- Christiano- 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 Date Name GA/Weeks Outcome Route Bth Weight Infant Gen Labor Lgth Anesthesia Del Locatn Provider FOB 06/09/22 Gaetanoleawais 37 live - full term 7#2 Female epidural [facility] rolo Ajit Alvarado Delivery Date: 06/09/22 [...] -???-???-???-???-???-??? -???-???-???-?? (more content not included)... Normal [facility] Miscellaneous Lab Procedureo n 03-31-2024 [facility] LAB TEST Normal [facility] Comment on above: Order Comment: Comme nts: [id number] SERUM RFTSH Receptor Antibodies Result Comment: TEST RESULTS LIMITS Thyrotropin Receptor Ab, Serum <1.10 IU/L 0.00-1.75 TESTING PERFORMED AT [facility]. ORIGINAL REPORT ON FILE IN LAB CONTAINS ADDITIONAL TEST SITE INFORMATION. Performed By: #### L 501.9520, L509.8000, L900.0098, L3890.6005, BTS, L3890.6100, L506.0400, L3890.6300, L801.1541, L509.4005, L100.0100, L501.9985, L500.4050 ####[facility] [address] [place], [address] Absolute neutrophil countOrd ered By: Tenisha Reyna on 03-26-2024 Neutrophils (Bld) [#/Vol] 7.3 10*3/uL 2.0-7.[address] [facility] Albumin to globulin ratioOrd ered By: Tenisha Reyna on 03-26-2024 Albumin/Globulin [Mass ratio] 0.8 {ratio} Low 0.9-2.[address] [facility] Basophil percentageOrdered B y: Tenisha Reyna on 03-26-2024 Basophils/100 WBC (Bld) 0.4 % 0-[address] [facility] Bilirubin, totalOrdered By: Tenisha Reyna on 03-26-2024 Bilirubin [Mass/Vol] 0.30 mg/dL 0.20-1.00 [facility] Comment on above: For patients on eltr ombopag therapy, use of Dimension Vader TBIL is not recommended. Blood urea nitrogen (BUN)/cr eatinine ratioOrdered By: Tenisha Reyna on 03-26-2024 Urea nitrogen/Creatinine [Mass ratio] 17.0 mg/mg 10-[address] [facility] CBC W/Diff, Automatedon Absolute Lymph 3.23 X10 3/uL Normal 0.83-4.[address] [facility] Comment on above: Performed By: #### L 501.9520, L509.8000, L900.0098, L3890.6005, BTS, L3890.6100, L506.0400, L3890.6300, L801.1541, L509.4005, L100.0100, L501.9985, L500.4050 #### [facility] [address] [place], [address] Absolute Neut 7.3 X10 3/uL Normal 2.0-7.[address] [facility] Comment on above: Performed By: #### L 501.9520, L509.8000, L900.0098, L3890.6005, BTS, L3890.6100, L506.0400, L3890.6300, L801.1541, L509.4005, L100.0100, L501.9985, L500.4050 #### [facility] [address] [place], [place], [phone] (386 Basophils/100 WBC (Bld) 0.4 % Normal 0-[address] [facility] Comment on above: Performed By: #### L 501.9520, L509.8000, L900.0098, L3890.6005, BTS, L3890.6100, L506.0400, L3890.6300, L801.1541, L509.4005, L100.0100, L501.9985, L500.4050 #### [facility] [address] [place], [address] Eosinophils/100 WBC (Bld) 1.7 % Normal 0-[address] [facility] Comment on above: Performed By: #### L 501.9520, L509.8000, L900.0098, L3890.6005, BTS, L3890.6100, L506.0400, L3890.6300, L801.1541, L509.4005, L100.0100, L501.9985, L500.4050 #### [facility] [address] [place], [address] Erythrocyte distribution width (RBC) [Ratio] 15.7 % High 11.6-14.[address] [facility] Comment on above: Performed By: #### L 501.9520, L509.8000, L900.0098, L3890.6005, BTS, L3890.6100, L506.0400, L3890.6300, L801.1541, L509.4005, L100.0100, L501.9985, L500.4050 #### [facility] [address] [place], [address] (881) Hematocrit (Bld) [Volume fraction] 39.8 % Normal 37-[address] [facility] Comment on above: Performed By: #### L 501.9520, L509.8000, L900.0098, L3890.6005, BTS, L3890.6100, L506.0400, L3890.6300, L801.1541, L509.4005, L100.0100, L501.9985, L500.4050 #### [facility] [address] [place], [place], [id number] (102) Hemoglobin (Bld) [Mass/Vol] 12.7 g/dL Normal 12.0-15.[address] [facility] Comment on above: Performed By: #### L 501.9520, L509.8000, L900.0098, L3890.6005, BTS, L3890.6100, L506.0400, L3890.6300, L801.1541, L509.4005, L100.0100, L501.9985, L500.4050 #### [facility] [address] [facility] [place], [address] IG% 0.300 Normal 0.0-0.[address] [facility] Comment on above: Result Comment: IG% - Immature Granulocytes (promyelocytes, myelocytes and metamyelocytes) > 1% indicates that a LEFT SHIFT is Present. Performed By: #### L 501.9520, L509.8000, L900.0098, L3890.6005, BTS, L3890.6100, L506.0400, L3890.6300, L801.1541, L509.4005, L100.0100, L501.9985, L500.4050 #### [facility] [address] [facility] [place], [address] Lymphocytes/100 WBC (Bld) 28.1 % Normal 19-[address] [facility] Comment on above: Performed By: #### L 501.9520, L509.8000, L900.0098, L3890.6005, BTS, L3890.6100, L506.0400, L3890.6300, L801.1541, L509.4005, L100.0100, L501.9985, L500.4050 #### [facility] [address] [facility] [place], [address] MCH (RBC) [Entitic mass] 27.4 pg Normal 27.0-32.[address] [facility] Comment on above: Performed By: #### L 501.9520, L509.8000, L900.0098, L3890.6005, BTS, L3890.6100, L506.0400, L3890.6300, L801.1541, L509.4005, L100.0100, L501.9985, L500.4050 #### [facility] [address] [facility] [place], [address] MCHC (RBC) [Mass/Vol] 31.9 g/dL Low 32-36 [facility] Comment on above: Performed By: #### L 501.9520, L509.8000, L900.0098, L3890.6005, BTS, L3890.6100, L506.0400, L3890.6300, L801.1541, L509.4005, L100.0100, L501.9985, L500.4050 #### [facility] [address] [place], [address] MCV (RBC) [Entitic vol] 86.0 fL Normal 81-[address] [facility] Comment on above: Performed By: #### L 501.9520, L509.8000, L900.0098, L3890.6005, BTS, L3890.6100, L506.0400, L3890.6300, L801.1541, L509.4005, L100.0100, L501.9985, L500.4050 #### [facility] [address] [place], [address] Monocytes/100 WBC (Bld) 5.8 % Normal 0-[address] [facility] Comment on above: Performed By: #### L 501.9520, L509.8000, L900.0098, L3890.6005, BTS, L3890.6100, L506.0400, L3890.6300, L801.1541, L509.4005, L100.0100, L501.9985, L500.4050 #### [facility] [address] [place], [address] Neutrophils/100 WBC (Bld) 63.7 % Normal 47-[address] [facility] Comment on above: Performed By: #### L 501.9520, L509.8000, L900.0098, L3890.6005, BTS, L3890.6100, L506.0400, L3890.6300, L801.1541, L509.4005, L100.0100, L501.9985, L500.4050 #### [facility] [address] [place], [address] Nucleated RBC (Bld) [#/Vol] 0 10*3/uL Normal 0-[address] [facility] Comment on above: Performed By: #### L 501.9520, L509.8000, L900.0098, L3890.6005, BTS, L3890.6100, L506.0400, L3890.6300, L801.1541, L509.4005, L100.0100, L501.9985, L500.4050 #### [facility] [address] [place], [address] Platelet mean volume (Bld) [Entitic vol] 10.2 fL Normal 6.2-12.[address] [facility] Comment on above: Performed By: #### L 501.9520, L509.8000, L900.0098, L3890.6005, BTS, L3890.6100, L506.0400, L3890.6300, L801.1541, L509.4005, L100.0100, L501.9985, L500.4050 #### [facility] [address] [place], [address] Platelets (Bld) [#/Vol] 270 10*3/uL Normal 150-[address] [facility] Comment on above: Performed By: #### L 501.9520, L509.8000, L900.0098, L3890.6005, BTS, L3890.6100, L506.0400, L3890.6300, L801.1541, L509.4005, L100.0100, L501.9985, L500.4050 #### [facility] [address] [place], [address] RBC (Bld) [#/Vol] 4.63 10*6/uL Normal 4.2-5.4 [facility] Comment on above: Performed By: #### L 501.9520, L509.8000, L900.0098, L3890.6005, BTS, L3890.6100, L506.0400, L3890.6300, L801.1541, L509.4005, L100.0100, L501.9985, L500.4050 #### [facility] [address] [place], [address] (724) RDW SD 49.0 fl High 35.1-43.[address] [facility] Comment on above: Performed By: #### L 501.9520, L509.8000, L900.0098, L3890.6005, BTS, L3890.6100, L506.0400, L3890.6300, L801.1541, L509.4005, L100.0100, L501.9985, L500.4050 #### [facility] [address] [place], [address] (911) WBC (Bld) [#/Vol] 11.5 10*3/uL High 4.4-11.0 [facility] Comment on above: Performed By: #### L 501.9520, L509.8000, L900.0098, L3890.6005, BTS, L3890.6100, L506.0400, L3890.6300, L801.1541, L509.4005, L100.0100, L501.9985, L500.4050 #### [facility] [address] [place], [place], [id number] (493) Carbon dioxide measurementOr dered By: Tenisha Reyna on 03-26-2024 CO2 [Moles/Vol] 27.0 mmol/L 21.0-32.[address] [facility] Chloride measurementOrdered By: Tenisha Reyna on 03-26-2024 Chloride [Moles/Vol] 105 mmol/L 98-107 [facility] Comprehensive Metabolic Prof ilon 03-26-2024 Albumin [Mass/Vol] 3.0 g/dL Low 3.2-5.0 [facility] Comment on above: Order Comment: [id number] 8 Performed By: #### L 501.9520, L509.8000, L900.0098, L3890.6005, BTS, L3890.6100, L506.0400, L3890.6300, L801.1541, L509.4005, L100.0100, L501.9985, L500.4050 #### [facility] [address] [place], [place], [id number] Albumin/Globulin [Mass ratio] 0.8 {ratio} Low 0.9-2.[address] [facility] Comment on above: Order Comment: 94696 8 Performed By: #### L 501.9520, L509.8000, L900.0098, L3890.6005, BTS, L3890.6100, L506.0400, L3890.6300, L801.1541, L509.4005, L100.0100, L501.9985, L500.4050 #### [facility] [address] [place], [place], [id number] ALK P 81 U/L Normal 45-[address] [facility] Comment on above: Order Comment: 11909 8 Performed By: #### L 501.9520, L509.8000, L900.0098, L3890.6005, BTS, L3890.6100, L506.0400, L3890.6300, L801.1541, L509.4005, L100.0100, L501.9985, L500.4050 #### [facility] [address] [place], [place], [id number] ALT [Catalytic activity/Vol] 16 U/L Normal 13-[address] [facility] Comment on above: Order Comment: 29151 8 Performed By: #### L 501.9520, L509.8000, L900.0098, L3890.6005, BTS, L3890.6100, L506.0400, L3890.6300, L801.1541, L509.4005, L100.0100, L501.9985, L500.4050 #### [facility] [address] [place], [place], [address] AST [Catalytic activity/Vol] 10 U/L Low 15-[address] [facility] Comment on above: Order Comment: 30212 8 Performed By: #### L 501.9520, L509.8000, L900.0098, L3890.6005, BTS, L3890.6100, L506.0400, L3890.6300, L801.1541, L509.4005, L100.0100, L501.9985, L500.4050 #### [facility] [address] [place], [place], [id number] Bilirubin [Mass/Vol] 0.30 mg/dL Normal 0.20-1.00 [facility] Comment on above: Order Comment: 10610 8 Result Comment: For patients on eltrombopag therapy, use of Dimension Vader TBIL is not recommended. Performed By: #### L 501.9520, L509.8000, L900.0098, L3890.6005, BTS, L3890.6100, L506.0400, L3890.6300, L801.1541, L509.4005, L100.0100, L501.9985, L500.4050 #### [facility] [address] [place], [place], [id number] BUN/CRE 17.0 RATIO Normal 10-[address] [facility] Comment on above: Order Comment: 10276 8 Performed By: #### L 501.9520, L509.8000, L900.0098, L3890.6005, BTS, L3890.6100, L506.0400, L3890.6300, L801.1541, L509.4005, L100.0100, L501.9985, L500.4050 #### [facility] [address] [place], [place], [id number] (861) CA,Total 9.3 mg/dL Normal 8.5-10.[address] [facility] Comment on above: Order Comment: 59610 8 Performed By: #### L 501.9520, L509.8000, L900.0098, L3890.6005, BTS, L3890.6100, L506.0400, L3890.6300, L801.1541, L509.4005, L100.0100, L501.9985, L500.4050 #### [facility] [address] [place], [place], [id number] (355) Chloride [Moles/Vol] 105 mmol/L Normal 98-107 [facility] Comment on above: Order Comment: 60549 8 Performed By: #### L 501.9520, L509.8000, L900.0098, L3890.6005, BTS, L3890.6100, L506.0400, L3890.6300, L801.1541, L509.4005, L100.0100, L501.9985, L500.4050 #### [facility] [address] [place], [place], [id number] (388) CO2 [Moles/Vol] 27.0 mmol/L Normal 21.0-32.[address] [facility] Comment on above: Order Comment: 24668 8 Performed By: #### L 501.9520, L509.8000, L900.0098, L3890.6005, BTS, L3890.6100, L506.0400, L3890.6300, L801.1541, L509.4005, L100.0100, L501.9985, L500.4050 #### [facility] [address] [place], [address] Creatinine [Mass/Vol] 0.53 mg/dL Low 0.55-1.02 [facility] Comment on above: Order Comment: 82794 8 Result Comment: The validity of the calculated GFR GFRAA in patients over 70 years has not been determined. Clinical correlation is essential. Performed By: #### L 501.9520, L509.8000, L900.0098, L3890.6005, BTS, L3890.6100, L506.0400, L3890.6300, L801.1541, L509.4005, L100.0100, L501.9985, L500.4050 #### [facility] [address] [place], [address] EST GFR - AA 174 mL/min Normal >[address] [facility] Comment on above: Order Comment: 23624 8 Result Comment: Afri can Micronesian GFR Calc Performed By: #### L 501.9520, L509.8000, L900.0098, L3890.6005, BTS, L3890.6100, L506.0400, L3890.6300, L801.1541, L509.4005, L100.0100, L501.9985, L500.4050 #### [facility] [address] [place], [address] GAP 6 Normal 5-[address] [facility] Comment on above: Order Comment: 31711 8 Performed By: #### L 501.9520, L509.8000, L900.0098, L3890.6005, BTS, L3890.6100, L506.0400, L3890.6300, L801.1541, L509.4005, L100.0100, L501.9985, L500.4050 #### [facility] [address] [place], [address] GFR/1.73 sq M.predicted among non-blacks MDRD (S/P/Bld) [Vol rate/Area] 143 mL/min/{1.73_m2} Normal >[address] [facility] Comment on above: Order Comment: 70033 8 Result Comment: Non- GFR Calc Performed By: #### L 501.9520, L509.8000, L900.0098, L3890.6005, BTS, L3890.6100, L506.0400, L3890.6300, L801.1541, L509.4005, L100.0100, L501.9985, L500.4050 #### [facility] [address] [place], [address] Globulin (S) [Mass/Vol] 3.9 g/dL Normal 2.2-4.[address] [facility] Comment on above: Order Comment: 69884 8 Performed By: #### L 501.9520, L509.8000, L900.0098, L3890.6005, BTS, L3890.6100, L506.0400, L3890.6300, L801.1541, L509.4005, L100.0100, L501.9985, L500.4050 #### [facility] [address] [place], [address] Glucose [Mass/Vol] 81 mg/dL Normal 74-106 [facility] Comment on above: Order Comment: 38249 8 Performed By: #### L 501.9520, L509.8000, L900.0098, L3890.6005, BTS, L3890.6100, L506.0400, L3890.6300, L801.1541, L509.4005, L100.0100, L501.9985, L500.4050 #### [facility] [address] [place], [address] Potassium [Moles/Vol] 3.7 mmol/L Normal 3.5-5.1 [facility] Comment on above: Order Comment: 50481 8 Performed By: #### L 501.9520, L509.8000, L900.0098, L3890.6005, BTS, L3890.6100, L506.0400, L3890.6300, L801.1541, L509.4005, L100.0100, L501.9985, L500.4050 #### [facility] [address] [place], [place], [id number] Sodium [Moles/Vol] 138 mmol/L Normal 136-145 [facility] Comment on above: Order Comment: 31126 8 Performed By: #### L 501.9520, L509.8000, L900.0098, L3890.6005, BTS, L3890.6100, L506.0400, L3890.6300, L801.1541, L509.4005, L100.0100, L501.9985, L500.4050 #### [facility] [address] [facility]. [place], [place], [id number] T PROT 6.9 g/dL Normal 6.4-8.[address] [facility] Comment on above: Order Comment: 56347 8 Performed By: #### L 501.9520, L509.8000, L900.0098, L3890.6005, BTS, L3890.6100, L506.0400, L3890.6300, L801.1541, L509.4005, L100.0100, L501.9985, L500.4050 #### [facility] [address] [place], [place], [address] Urea nitrogen [Mass/Vol] 9 mg/dL Normal 7-[address] [facility] Comment on above: Order Comment: 20791 8 Performed By: #### L 501.9520, L509.8000, L900.0098, L3890.6005, BTS, L3890.6100, L506.0400, L3890.6300, L801.1541, L509.4005, L100.0100, L501.9985, L500.4050 #### [facility] [address] [place], [place], [id number] Direct serum free thyroxine (FT4) measurementOrdered By: Tenisha Reyna on 03-26-2024 Free T4 [Mass/Vol] 0.95 ng/dL 0.76-1.46 [facility] Eosinophil percentageOrdered By: Tenisha Reyna on 03-26-2024 Eosinophils/100 WBC (Bld) 1.7 % 0-[address] [facility] Erythrocyte distribution wid th ratioOrdered By: Tenisha Reyna on 03-26-2024 Erythrocyte distribution width (RBC) [Ratio] 15.7 % High 11.6-14.[address] [facility] Erythrocyte distribution wid th standard deviationOrdered By: Tenisha Reyna on 03-26-2024 Erythrocyte distribution width (RBC) [Entitic vol] 49.0 fL High 35.1-43.[address] [facility] Estimated glomerular filtrat ion rate (GFR) AmericanOrdered By: Tenisha Reyna on 03-26-2024 Estimated GFR (MDRD) Amer 174 mL/min >[address] [facility] Comment on above: GFR Calc Glomerular filtration rate ( GFR) estimationOrdered By: Tenisha Reyna on 03-26-2024 Estimated GFR (MDRD) Non-Af Amer 143 mL/min >[address] [facility] Comment on above: Non- GFR Calc Glucose measurementOrdered B y: Tenisha Reyna on 03-26-2024 Glucose [Mass/Vol] 81 mg/dL 74-106 [facility] HIV - WCHon 03-26-2024 HIV Non-Reactive Normal Nonreactive [facility] Comment on above: Order Comment: Reaso n for Exam: Performed By: #### L 501.9520, L509.8000, L900.0098, L3890.6005, BTS, L3890.6100, L506.0400, L3890.6300, L801.1541, L509.4005, L100.0100, L501.9985, L500.4050 ####[facility] [address] [place], [place], [id number] HIV 1+2 Ab+HIV1 p24 Ag IA Ql Ordered By: Tenisha Reyna on 03-26-2024 HIV (1&2) Antibody Non-Reactive Nonreactive [facility] Hematocrit Auto (Bld) [Volum e fraction]Ordered By: Tenisha Reyna on 03-26-2024 Hematocrit (Bld) [Volume fraction] 39.8 % 37-[address] [facility] Hemoglobin A1con 03-26-2024 HbA1c (Bld) [Mass fraction] 5.0 % Normal 3.8-5.[address] [facility] Comment on above: Result Comment: Norm al < 5.7 % Prediabetic 5.7 - 6.4 % Diabetic >or= 6.5 % Please note range changes. Performed By: #### L 501.9520, L509.8000, L900.0098, L3890.6005, BTS, L3890.6100, L506.0400, L3890.6300, L801.1541, L509.4005, L100.0100, L501.9985, L500.4050 #### [facility] [address] [place], [address] Hemoglobin A1c percentageOrd ered By: Tenisha Reyna on 03-26-2024 HbA1c (Bld) [Mass fraction] 5.0 % 3.8-5.[address] [facility] Comment on above: Normal < 5.7 % Predi abetic 5.7 - 6.4 % Diabetic >or= 6.5 % Please note range changes. Hemoglobin measurementOrdere d By: Tenisha Reyna on 03-26-2024 Hemoglobin (Bld) [Mass/Vol] 12.7 g/dL 12.0-15.[address] [facility] Hepatitis B Surface Antigeno n 03-26-2024 HEP B Surf Ag Non-Reactive Normal Nonreactive [facility] Comment on above: Order Comment: Reaso n for Exam: Performed By: #### L 501.9520, L509.8000, L900.0098, L3890.6005, BTS, L3890.6100, L506.0400, L3890.6300, L801.1541, L509.4005, L100.0100, L501.9985, L500.4050 ####[facility] [id number] [facility]. [place], [place], [id number] Hepatitis B surface antigen detectionOrdered By: Tenisha Reyna on 03-26-2024 Hepatitis B Surface Antigen Non-Reactive Nonreactive [facility] Hepatitis C Antibodyon 03-26 Hepatitis C AB Non-Reactive Normal Nonreactive [facility] Comment on above: Order Comment: Reaso n for Exam: Result Comment: Non Reactive: < 0.8 Equivocal: >/= 0.8 to < 1.0 Reactive: >/= 1.0 The [facility] requires that a reactive/equivocal HCV antibody result be sent out for confirmation. HCV Quant by PCR testing. Performed By: #### L 501.9520, L509.8000, L900.0098, L3890.6005, BTS, L3890.6100, L506.0400, L3890.6300, L801.1541, L509.4005, L100.0100, L501.9985, L500.4050 ####[facility] [id number] [facility]. [place], [place], [id number] Hepatitis C virus antibody a ssayOrdered By: Tenisha Reyna on 03-26-2024 Hepatitis C Antibody Non-Reactive Nonreactive [facility] Comment on above: Non Reactive: < 0.8 Equivocal: >/= 0.8 to < 1.0 Reactive: >/= 1.0The CDC requires that a reactive/equivocal HCV antibody result be sent out for confirmation. HCV Quant by PCR testing. Immature granulocytes/100 WB C Auto (Bld)Ordered By: Tenisha Reyna on 03-26-2024 Immature granulocytes/100 WBC (Bld) 0.300 % 0.0-0.[address] [facility] Comment on above: IG% - Immature Granu locytes (promyelocytes, myelocytes and metamyelocytes) > 1% indicates that a LEFT SHIFT is Present. L509.8000on 03-26-2024 Syphilis Abs Non-Reactive Normal [facility] Comment on above: Order Comment: Reaso n for Exam: Performed By: #### L 501.9520, L509.8000, L900.0098, L3890.6005, BTS, L3890.6100, L506.0400, L3890.6300, L801.1541, L509.4005, L100.0100, L501.9985, L500.4050 ####[facility] [id number] [place], [address] Laboratory - Chemistry and C hemistry - challengeOrdered By: Tenisha Reyna on 03-26-2024 AST [Catalytic activity/Vol] 10 U/L Low 15-[address] [facility] Laboratory - Chemistry and C hemistry - challengeon 03-26-2024 Glucose Ql (U) Negative [facility] Laboratory - Urinalysison Protein Ql (U) Negative [facility] Lymphocytes Auto (Unsp spec) [#/Vol]Ordered By: Tenisha Reyna on 03-26-2024 Lymphocytes (Bld) [#/Vol] 3.23 10*3/uL 0.83-4.[address] [facility] Lymphocytes/100 WBC Auto (Un sp spec)Ordered By: Tenisha Reyna on 03-26-2024 Lymphocytes/100 WBC (Bld) 28.1 % 19-[address] [facility] MCV (mean corpuscular volume ) determinationOrdered By: Tenisha Reyna on 03-26-2024 MCV (RBC) [Entitic vol] 86.0 fL 81-[address] [facility] Mean corpuscular hemoglobin (MCH) determinationOrdered By: Tenisha Reyna on 03-26-2024 MCH (RBC) [Entitic mass] 27.4 pg 27.0-32.[address] [facility] Mean corpuscular hemoglobin concentration (MCHC) determinationOrdered By: Tenisha Reyna on 03-26-2024 MCHC (RBC) [Mass/Vol] 31.9 g/dL Low 32-36 [facility] Mean platelet volume determi nationOrdered By: Tenisha Reyna on 03-26-2024 Platelet mean volume (Bld) [Entitic vol] 10.2 fL 6.2-12.[address] [facility] Miscellaneous procedureOrder ed By: Tenisha Reyna on 03-26-2024 Miscellaneous Test See comment [facility] Comment on above: TEST RESULTS LIMITST hyrotropin Receptor Ab,Serum <1.10 IU/L 0.00-1.75 TESTING PERFORMED AT [facility]. ORIGINAL REPORT ON FILE IN LAB CONTAINS ADDITIONAL TEST SITE INFORMATION. Miscellaneous Test Comment SEE SCANNED REPORT [facility] Monocyte percentageOrdered B y: Tenisha Reyna on 03-26-2024 Monocytes/100 WBC (Bld) 5.8 % 0-[address] [facility] NATERAon 03-26-2024 NATURA SEE SCANNED REPORT Normal [facility] Comment on above: Order Comment: Comme nts: NIPT w/Gender Performed By: #### L 501.9520, L509.8000, L900.0098, L3890.6005, BTS, L3890.6100, L506.0400, L3890.6300, L801.1541, L509.4005, L100.0100, L501.9985, L500.4050 #### [facility] Laboratory [address] [place], [place], [id number] Neutrophil percentageOrdered By: Tenisha Reyna on 03-26-2024 Neutrophils/100 WBC (Bld) 63.7 % 47-[address] [facility] Nucleated red blood cell per centageOrdered By: Tenisha Reyna on 03-26-2024 Nucleated RBC/100 WBC (Bld) [Ratio] 0 % 0-[address] [facility] [employer] Office Visit Reporton 03-26-2024 Junior Account Executive Office Visit Report [facility], [address] [place] [address] OFFICE VISIT Date of Service: 03/26/24 MR#: [id number] Acct: [id number] Name: ANAI WEBBER Rep #: [id number] : 1995 Provider: Dr. 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 Date Name GA/Weeks Outcome Route Bth Weight Gen Labor Lgth Anesthesia Del Locatn Provider FOB 06/09/22 Finlee 37 live - full term 7#2 Female epidural [facility] rolo Alvarado Delivery Date: 06/09/22 Last [...] -???-???-???-???-???-??? -???-???-???-???- (more content not included)... Normal [facility] Platelet countOrdered By: Gen Reyna on 03-26-2024 Platelets (Bld) [#/Vol] 270 10*3/uL 150-[address] [facility] Potassium measurementOrdered By: Tenisha Reyna on 03-26-2024 Potassium [Moles/Vol] 3.7 mmol/L 3.5-5.1 [facility] RBC Auto (Bld) [#/Vol]Ordere d By: Tenisha Reyna on 03-26-2024 RBC (Bld) [#/Vol] 4.63 10*6/uL 4.2-5.4 [facility] Rubella IgGon 03-26-2024 Rubella IgG Equiv Normal Nonreactive [facility] Comment on above: Order Comment: Reaso n for Exam: Result Comment: Anti body Results Interpretation of Immune Status Non Reactive Presumed Non-Immune Equivocal Equivocal Reactive Presumed Immune Performed By: #### L 501.9520, L509.8000, L900.0098, L3890.6005, BTS, L3890.6100, L506.0400, L3890.6300, L801.1541, L509.4005, L100.0100, L501.9985, L500.4050 ####[facility] [id number] [place], [place], [id number] Rubella immune status IgGOrd ered By: Tenisha Reyna on 03-26-2024 Rubella IgG Antibody Equiv Nonreactive [facility] Comment on above: Antibody Results Int erpretation of Immune Status Non Reactive Presumed Non-Immune Equivocal Equivocal Reactive Presumed Immune Serum anion gap measurementO rdered By: Tenisha Reyna on 03-26-2024 Anion gap [Moles/Vol] 6 mmol/L 5-15 [facility] Serum globulin measurementOr dered By: Tenisha Reyna on 03-26-2024 Globulin (S) [Mass/Vol] 3.9 g/dL 2.2-4.[address] [facility] Serum or plasma alanine aceves otransferase (ALT) measurementOrdered By: Tenisha Reyna on 03-26-2024 ALT [Catalytic activity/Vol] 16 U/L 13-[address] [facility] Serum or plasma albumin andi urement (mass/volume)Ordered By: Tenisha Reyna on 03-26-2024 Albumin [Mass/Vol] 3.0 g/dL Low 3.2-5.0 [facility] Serum or plasma alkaline osvaldo sphatase measurementOrdered By: Tenisha Reyna on 03-26-2024 ALP [Catalytic activity/Vol] 81 U/L 45-[address] [facility] Serum or plasma calcium andi urement (mass/volume)Ordered By: Tenisha Reyna on 03-26-2024 Calcium [Mass/Vol] 9.3 mg/dL 8.5-10.1 [facility] Serum or plasma creatinine m easurement (mass/volume)Ordered By: Tenisha Reyna on 03-26-2024 Creatinine [Mass/Vol] 0.53 mg/dL Low 0.55-1.02 [facility] Comment on above: The validity of the calculated GFR & GFRAA in patients over 70 years has not been determined. Clinical correlation is essential. Serum or plasma urea nitroge n measurement (mass/volume)Ordered By: Tenisha Reyna on 03-26-2024 Urea nitrogen [Mass/Vol] 9 mg/dL 7-[address] [facility] Sodium levelOrdered By: Camila Reyna on 03-26-2024 Sodium [Moles/Vol] 138 mmol/L 136-145 [facility] T4 Free Directon 03-26-2024 T4 FREE DIRECT 0.95 ng/dL Normal 0.76-1.[address] [facility] Comment on above: Order Comment: [id number] Performed By: #### L 501.9520, L509.8000, L900.0098, L3890.6005, BTS, L3890.6100, L506.0400, L3890.6300, L801.1541, L509.4005, L100.0100, L501.9985, L500.4050 ####[facility] [address] [place], [place], [id number] TSH QnOrdered By: Tenisha paris on 03-26-2024 Thyroid Stimulating Hormone (TSH) 0.648 uIU/mL 0.358-3.[address] [facility] Thyroid Stim Hormone (TSH)on 03-26-2024 TSH 0.648 uIU/mL Normal 0.358-3.[address] [facility] Comment on above: Order Comment: [id number] Performed By: #### L 501.9520, L509.8000, L900.0098, L3890.6005, BTS, L3890.6100, L506.0400, L3890.6300, L801.1541, L509.4005, L100.0100, L501.9985, L500.4050 #### [facility] Laboratory [address] [place], [place], [id number] Total proteinOrdered By: Des Reyna on 03-26-2024 Protein [Mass/Vol] 6.9 g/dL 6.4-8.2 [facility] Treponema sp Ab Ql (S)Ordere d By: Tenisha Reyna on 03-26-2024 Syphilis Total Antibody Non-Reactive [facility] Type AND Screenon 03-26-2024 Ab SCREEN GEL Negative Normal [facility] Comment on above: Order Comment: PN Performed By: #### L 501.9520, L509.8000, L900.0098, L3890.6005, BTS, L3890.6100, L506.0400, L3890.6300, L801.1541, L509.4005, L100.0100, L501.9985, L500.4050 ####[facility] [address] [place], [place], [id number] ABO and Rh group Nom (Bld) Blood group O Rh(D) positive Normal [facility] Comment on above: Order Comment: PN Performed By: #### L 501.9520, L509.8000, L900.0098, L3890.6005, BTS, L3890.6100, L506.0400, L3890.6300, L801.1541, L509.4005, L100.0100, L501.9985, L500.4050 ####[facility] [address] [place], [place], [id number] White blood cell (WBC) count Ordered By: Tenisha Reyna on 03-26-2024 WBC (Bld) [#/Vol] 11.5 10*3/uL High 4.4-11.0 [facility] SARS-COV-2 RAPID AG (WIC)on 03-10-2024 SARS-CoV-2 (COVID-19) RNA JADYN+probe Ql (Unsp spec) Not detected Normal NOT DETECTED [facility] Comment on above: Result Comment: Nega tive [...] By: #### C COVAG ####Testing performed at [place] [id number] NARRATIVE This test was perfor med using lateral flow immunoassay. This test does not differentiate between SARS-CoV and SARS-CoV2. Normal [facility] Comment on above: Performed By: #### C COVAG ####Testing performed at [address] [address] SARS-COV-2 RAPID ANTIGEN (CL INIC ONLY)on 03-10-2024 SARS-CoV-2 (COVID-19) RNA JADYN+probe Ql (Unsp spec) This test was performed using lateral flow immunoassay. This test does not differentiate between SARS-CoV and SARS-CoV2. SARS-CoV-2 (COVID-19) RNA NA A+probe Ql (Unsp spec)on 03-10-2024 SARS-CoV-2 (COVID-19) Ag IA.rapid Ql (Resp) Not detected NOT DETECTED Comment on above: Negative results malka uld [...] clinical signs and symptoms consistent with COVID-19. Chlamydia/GC JADYN aptimaon CHLAMY,NUC ACID Negative Normal Negative [facility] Comment on above: Performed By: #### M 100.1999, M100.3200 #### [facility] Laboratory [address] [place], [place], [id number] GC BY NUC ACID Negative Normal Negative [facility] Comment on above: Result Comment: Perf ormed at: =G - [facility] [id number] Completions Engineer: Lizz Franz MD, Phone: [phone] Performed By: #### M 100.1999, M100.3200 #### [facility] [address] [place], [address] Urine Cultureon 02-21-2024 URC Below infection leve l. Mixed Gram Positive Organisms [place] Count 1000-10,000 MIXC Mixed contaminants. Submit a new specimen if indicated. Normal [facility] Comment on above: Performed By: #### M 100.1999, M100.3200 #### [facility] [address] 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 Date Name GA/Weeks Outcome Route Bth Weight Gen Labor Lgth Anesthesia Del Locatn Provider FOB 06/09/22 Finlee 37 live - full term 7#2 Female epidural [facility] rolo Alvarado Delivery Date: 06/09/22 Last [...] Date -???-? (more content not included)... Normal [facility] Protein+Creatinine Ratio,Uri neon 02-18-2024 PROT:CRE RATIO 200 mg/g CRE Normal 0-[address] [facility] Comment on above: Performed By: #### M , M100.3200 #### [facility] [address], [address] Protein (U) [Mass/Vol] 49.7 mg/dL High <11.[address] [facility] Comment on above: Performed By: #### M , M100.3200 #### [facility] [address] [place], [address] UR CREAT 249.00 mg/dL Normal NO RANGE EST. [facility] Comment on above: Performed By: #### M , M100.3200 #### [facility] [address] [place], [address] C REACTIVE PROTEINon 024 CRP [Mass/Vol] 8.3 mg/L 0 - 10 MG/L CRP [Mass/Vol] 8.3 mg/L Normal 0-10 [facility] Comment on above: Performed By: #### U MAC, UMIC #### Testing performed at [address] [address] CBCon 10-14-2023 Band form neutrophils/100 WBC (Bld) 2 % Normal 0.0-2.0 [facility] Comment on above: Performed By: #### U MAC, UMIC #### Testing performed at [address] [address] DTYPE MANUAL DIFF Normal [facility] Comment on above: Performed By: #### U MAC, UMIC #### Testing performed at [address] [address] Lymphocytes/100 WBC (Bld) 19 % Low 20.0-55.0 [facility] Comment on above: Performed By: #### U MAC, UMIC #### Testing performed at [address] [address] Monocytes/100 WBC (Bld) 5 % Normal 0.0-10.0 [facility] Comment on above: Performed By: #### U MAC, UMIC #### Testing performed at [address] [address] Neutrophils/100 WBC (Bld) 74 % Normal 37.0-75.0 [facility] Comment on above: Performed By: #### U MAC, UMIC #### Testing performed at [address] [address] PLATELET COMMENT ADEQUATE Normal [facility] Comment on above: Performed By: #### U MAC, UMIC #### Testing performed at [address] [address] RBC morphology finding Nom (Bld) NORMAL Normal [facility] Comment on above: Performed By: #### U MAC, UMIC #### Testing performed at [address] [address] Erythrocyte distribution width (RBC) [Ratio] 14.7 % High 11.5-14.5 [facility] Comment on above: Performed By: #### U MAC, UMIC #### Testing performed at [address] [address] Hematocrit (Bld) [Volume fraction] 34.7 % Low 36.0-48.0 [facility] Comment on above: Performed By: #### U MAC, UMIC #### Testing performed at [address] [address] Hemoglobin (Bld) [Mass/Vol] 11.8 g/dL Low 12.0-16.0 [facility] Comment on above: Performed By: #### U MAC, UMIC #### Testing performed at [address] [address] MCH (RBC) [Entitic mass] 28.2 pg Normal 26.0-35.0 [facility] Comment on above: Performed By: #### U ERIC, BUSHRAIC #### Testing performed at [address] [address] MCHC (RBC) [Mass/Vol] 33.8 g/dL Normal 27.0-37.0 [facility] Comment on above: Performed By: #### U ERIC, UMIC #### Testing performed at [address] [address] MCV (RBC) [Entitic vol] 83.2 fL Normal 80.0-100.0 [facility] Comment on above: Performed By: #### U ERIC, UMIC #### Testing performed at [address] [address] Platelet mean volume (Bld) [Entitic vol] 7.7 fL Normal 7.4-11.0 [facility] Comment on above: Performed By: #### U ERIC, UMIC #### Testing performed at [address] [address] Platelets (Bld) [#/Vol] 335 10*3/uL Normal 130-400 [facility] Comment on above: Performed By: #### U ERIC, UMIC #### Testing performed at [address] [address] RBC (Bld) [#/Vol] 4.17 10*6/uL Normal 4.0-5.4 [facility] Comment on above: Performed By: #### U ERIC, UMIC #### Testing performed at [address] [address] WBC (Bld) [#/Vol] 16.3 10*3/uL High 3.6-11.0 [facility] Comment on above: Performed By: #### U ERIC, UMIC #### Testing performed at [address] [address] CBC, EDIF, PLATELETon 2023 Differential cell count method Nom (Bld) MANUAL DIFF % Erythrocyte distribution width (RBC) [Ratio] 14.7 % High 11.5 - 14.5 % Hematocrit (Bld) [Volume fraction] 34.7 % Low 36.0 - 48.0 % Hemoglobin (Bld) [Mass/Vol] 11.8 g/dL Low Immature granulocytes/100 WBC (Bld) 2 % 0.0 - 2.0 % Interpretation and review of laboratory results Abnormal Lymphocytes/100 WBC (Bld) 19 % Low 20.0 - 55.0 % MCH (RBC) [Entitic mass] 28.2 pg 26.0 - 35.0 PG MCHC (RBC) [Mass/Vol] 33.8 g/dL [facility] MCV (RBC) [Entitic vol] 83.2 fL Monocytes/100 WBC (Bld) 5 % 0.0 - 10.0 % Morphology Dillan (Bld) [Interp] NORMAL Neutrophils/100 WBC (Bld) 74 % 37.0 - 75.0 % Platelet mean volume (Bld) [Entitic vol] 7.7 fL Platelet morphology finding Nom (Bld) ADEQUATE Platelets (Bld) [#/Vol] 335 10*3/uL 130 - 400 10*3/uL RBC (Bld) [#/Vol] 4.17 10*6/uL 4.0 - 5.4 10*6/uL WBC (Bld) [#/Vol] 16.3 10*3/uL High 3.6 - 11.0 10*3/uL [facility] ESRon 10-14-2023 ESR (Bld) [Velocity] 33 mm/h High 0-15 [facility] Comment on above: Performed By: #### E SR, MG, CREACT, ACBC, RENF, LIVR ####Testing performed at [place] [address] [place] [address] HEPATIC FUNCTION PANELon Albumin [Mass/Vol] 4.0 g/dL ALP [Catalytic activity/Vol] 63 U/L ALT [Catalytic activity/Vol] 76 U/L High NINF AST [Catalytic activity/Vol] 61 U/L High Bilirubin [Mass/Vol] 0.4 mg/dL [facility] Bilirubin.direct [Mass/Vol] 0.2 mg/dL Protein [Mass/Vol] 6.6 g/dL LACTATE, BLOODon 10-14-2023 Interpretation and review of laboratory results Abnormal Lactate [Moles/Vol] 4.5 mmol/L Critically high 0.7 - 2.0 mmol/L Comment on above: PLEASE REPEAT INITIA L CRITICAL IN 3 HOURS IF ED OR INPATIENT SEPSIS PATIENT Result called to read back by: LINDA 10/14/2023 @ 05:22 by B [employer] WORKER LACTATE,BLOODon 10-14-2023 Lactate [Moles/Vol] 4.5 mmol/L Critically high 0.7-2.0 [facility] Comment on above: Result Comment: PLEA SE REPEAT INITIAL CRITICAL IN 3 HOURS IF ED OR INPATIENT SEPSIS PATIENT Result called to read back by: LINDA 10/14/2023 @ 05:22 by B [employer] GANG WORKER Performed By: #### U MAC, UMIC #### Testing performed at [address] [address] LIVER PANELon 10-14-2023 Albumin [Mass/Vol] 4.0 g/dL Normal 2.9-5.3 [facility] Comment on above: Performed By: #### E SR, MG, CREACT, ACBC, RENF, LIVR ####Testing performed at [address] [address] ALP [Catalytic activity/Vol] 63 U/L Normal 38-126 [facility] Comment on above: Performed By: #### E SR, MG, CREACT, ACBC, RENF, LIVR ####Testing performed at [address] [address] ALT [Catalytic activity/Vol] 76 U/L High <35 [facility] Comment on above: Performed By: #### E SR, MG, CREACT, ACBC, RENF, LIVR ####Testing performed at [address] [address] AST [Catalytic activity/Vol] 61 U/L High 14-36 [facility] Comment on above: Performed By: #### E SR, MG, CREACT, ACBC, RENF, LIVR ####Testing performed at [address] [address] Bilirubin [Mass/Vol] 0.4 mg/dL Normal 0.2-1.3 [facility] Comment on above: Performed By: #### E SR, MG, CREACT, ACBC, RENF, LIVR ####Testing performed at [address] [address] Bilirubin.indirect [Mass/Vol] 0.2 mg/dL Normal 0.0-0.4 [facility] Comment on above: Performed By: #### E SR, MG, CREACT, ACBC, RENF, LIVR ####[place] [address] Protein [Mass/Vol] 6.6 g/dL Normal 6.3-8.2 [facility] Comment on above: Performed By: #### E SR, MG, CREACT, ACBC, RENF, LIVR ####Testing performed at [address] [address] MAGNESIUMon 10-14-2023 Magnesium [Mass/Vol] 2.5 mg/dL High [facility] Magnesium [Mass/Vol] 2.5 mg/dL High 1.6-2.3 [facility] Comment on above: Performed By: #### U MAC, UMIC #### Testing performed at [address] [address] No Panel Informationon 10-13 Interpretation and review of laboratory results Abnormal [facility] RENAL FUNCTION PANELon 10-13 Albumin [Mass/Vol] 4.0 G/dl 3.5 - 5.0 G/dl Calcium [Mass/Vol] 8.5 mg/dL Chloride [Moles/Vol] 102 mmol/L [facility] Comment on above: Please note: Triglyc eride levels of 600mg/dL or higher may positively bias chloride results by approximately 2.1 mmol CO2 [Moles/Vol] 26 mmol/L Creatinine [Mass/Vol] 0.60 mg/dL Low [facility] GFR COMMENT Average GFR for 30-3 9 years old = 107. Comment on above: Chronic Kidney disea se, GFR = <60. Kidney failure, GFR = <15. The GFR estimate is not adjusted for extreme body surface area or acute process, nor has it been validated for women or ethnic groups other than and . GFR/1.73 sq M.predicted among blacks MDRD (S/P/Bld) [Vol rate/Area] 151 mL/min/{1.73_m2} ml/min/1.73s q.m [facility] GFR/1.73 sq M.predicted among non-blacks MDRD (S/P/Bld) [Vol rate/Area] 125 mL/min/{1.73_m2} ml/min/1.73s q.m Glucose post fast [Mass/Vol] 137 mg/dL High Comment on above: NORMAL <100 mg/dL PREDIABETES 101-126 mg/dL DIABETES 126 mg/dL or higher Interpretation and review of laboratory results Abnormal Phosphate [Mass/Vol] 3.2 mg/dL [facility] Potassium [Moles/Vol] 3.6 mmol/L [facility] Sodium [Moles/Vol] 136 mmol/L Low Urea nitrogen [Mass/Vol] 16 mg/dL [facility] RENAL PANEL,FASTINGon 2023 ALBUMIN 4.0 G/dl Normal 3.5-5.0 [facility] Comment on above: Performed By: #### U MAC, IC #### Testing performed at [address] [address] Calcium [Mass/Vol] 8.5 mg/dL Normal 8.4-10.2 [facility] Comment on above: Performed By: #### U MAC, UMIC #### Testing performed at [address] [address] Chloride [Moles/Vol] 102 mmol/L Normal 98-107 [facility] Comment on above: Result Comment: Plea se note: Triglyceride levels of 600mg/dL or higher may positively bias chloride results by approximately 2.1 mmol Performed By: #### U MAC, UMIC #### Testing performed at [place] [id number] CO2 [Moles/Vol] 26 mmol/L Normal 22-30 [facility] Comment on above: Performed By: #### U MAC, UMIC #### Testing performed at [place] [id number] Creatinine [Mass/Vol] 0.60 mg/dL Low 0.70-1.20 [facility] Comment on above: Performed By: #### U MAC, UMIC #### Testing performed at [place] [id number] EST. GFR, 151 ml/min/1.73sq.m [facility] Comment on above: Performed By: #### U MAC, UMIC #### Testing performed at [place] [id number] EST. GFR,Non 125 ml/min/1.73sq.m [facility] Comment on above: Performed By: #### U MAC, UMIC #### [place] [address] GFR Information Average GFR for 30-3 9 years old = 107. Normal [facility] Comment on above: Result Comment: [place] Reporter bentley Kidney disease, GFR = <60. Kidney failure, GFR = <15. The GFR estimate is not adjusted for extreme body surface area or acute process, nor has it been validated for women or ethnic groups other than and . Performed By: #### U MAC, UMIC #### Testing performed at [place] [id number] Glucose [Mass/Vol] 137 mg/dL High 70-100 [facility] Comment on above: Result Comment: NORMAL <100 mg/dL PREDIABETES 101-126 mg/dL DIABETES 126 mg/dL or higher Performed By: #### U MAC, UMIC #### Testing performed at [place] [id number] PHOSPHOROUS 3.2 MG/DL Normal 2.5-4.5 [facility] Comment on above: Performed By: #### U MAC, UMIC #### Testing performed at [address] [address] Potassium [Moles/Vol] 3.6 mmol/L Normal 3.5-5.1 [facility] Comment on above: Performed By: #### U MAC, UMIC #### Testing performed at [address] [address] Sodium [Moles/Vol] 136 mmol/L Low 137-145 [facility] Comment on above: Performed By: #### U MAC, UMIC #### Testing performed at [address] [address] Urea nitrogen [Mass/Vol] 16 mg/dL Normal 7-20 [facility] Comment on above: Performed By: #### U MAC, UMIC #### Testing performed at [address] [address] SEDIMENTATION RATE, AUTOMATE Don 10-14-2023 ESR (Bld) [Velocity] 33 mm/h High [employer] [facility] Interpretation and review of laboratory results Abnormal [facility] ARTERIAL BLOOD GASon 024 Arterial patency Wrist artery --pre arterial puncture Positive [facility] Base excess Calc (BldV) [Moles/Vol] 2.2 mmol/L High Carboxyhemoglobin (Bld) [Mass fraction] 1.2 % [facility] [employer] [facility] CO2 (Bld) [Partial pressure] 30 mm[Hg] Low [facility] Diagnosis Narrative SOB HCO3 (Bld) [Moles/Vol] 24.5 mmol/L [facility] Hemoglobin (Bld) [Mass/Vol] 11.6 g/dL Interpretation and review of laboratory results Abnormal [facility] Methemoglobin (BldC) [Mass fraction] 0.9 % [facility] NOTE ROOM AIR [facility] O2 Device ROOM AIR [facility] Channel M System Oxygen (Bld) [Partial pressure] 65 mm[Hg] Low [facility] Oxyhemoglobin (Bld) [Mass fraction] 93.1 % [facility] PATIENT PO2 SETTINGS 21 [facility] [employer] [facility] pH (Bld) 7.52 [pH] High 7.350 - 7.450 Specimen site Narrative RIGHT RADIAL [facility] JOSUE'S TEST Positive [facility] Comment on above: Performed By: #### C OVID #### Testing performed at [address] [address] BASE EXCESS 2.2 mEq/L High 0-2 [facility] Comment on above: Performed By: #### C OVID #### Testing performed at [address] [address] cHCO3 (P,ST)C 24.5 mEq/L Normal 22-26 [facility] Comment on above: Performed By: #### C OVID #### Testing performed at [address] [address] ctHb 11.6 g/dl [facility] Comment on above: Performed By: #### C OVID #### Testing performed at [address] [address] FCOHb 1.2 % [facility] Comment on above: Performed By: #### C OVID #### Testing performed at [address] [address] FMetHb 0.9 % [facility] Comment on above: Performed By: #### C OVID #### Testing performed at [address] [address] FO2Hb 93.1 % [facility] Comment on above: Performed By: #### C OVID #### Testing performed at [address] [place] [address] NOTES: ROOM AIR [facility] Comment on above: Performed By: #### C OVID #### Testing performed at [address] [address] O2 DEVICE ROOM AIR [facility] Comment on above: Performed By: #### C OVID #### Testing performed at [address] [place] [address] PATIENT DIAGNOSIS SOB [facility] Comment on above: Performed By: #### C OVID #### Testing performed at [address] [address] PATIENT O2 SETTINGS 21 [facility] Comment on above: Performed By: #### C OVID #### Testing performed at [address] [address] pCO2, arterial 30 mmHg Low 35-45 [facility] Comment on above: Performed By: #### C OVID #### Testing performed at [address] [address] pH, arterial 7.52 High 7.350-7.450 [facility] Comment on above: Performed By: #### C OVID #### Testing performed at [address] [address] pO2,arterial 65 mmHg Low 80-100 [facility] Comment on above: Performed By: #### C OVID #### Testing performed at [address] [address] SAMPLE SITE RIGHT RADIAL Normal [facility] Comment on above: Performed By: #### C OVID #### Testing performed at [address] [address] sO2,arterial 95.1 % Normal 95-100 [facility] Comment on above: Performed By: #### C OVID #### Testing performed at [address] [address] C REACTIVE PROTEINon 024 CRP [Mass/Vol] 16.1 mg/L High 0 - 10 MG/L CRP [Mass/Vol] 16.1 mg/L High 0-10 [facility] Comment on above: Performed By: #### U MAC, UMIC #### Testing performed at [address] [address] CBCon 10-13-2023 ABSOLUTE BAS 0.0 10*3/uL Normal 0.0-0.2 [facility] Comment on above: Performed By: #### U MAC, UMIC #### Testing performed at [address] [address] ABSOLUTE EOS 0.0 10*3/uL Normal 0.0-0.7 [facility] Comment on above: Performed By: #### U MAC, UMIC #### Testing performed at [address] [address] ABSOLUTE NEUTROPHIL COUNT 12.7 10*3/uL High 1.4-6.5 [facility] Comment on above: Performed By: #### U MAC, UMIC #### Testing performed at [address] [place] [address] Basophils/100 WBC (Bld) 0.1 % Normal 0.0-2.0 [facility] Comment on above: Performed By: #### U MAC, UMIC #### Testing performed at [address] [place] [address] DTYPE AUTO DIFF Normal [facility] Comment on above: Performed By: #### U MAC, UMIC #### Testing performed at [address] [place] [address] Eosinophils/100 WBC (Bld) 0.0 % Normal 0.0-11.0 [facility] Comment on above: Performed By: #### U MAC, UMIC #### Testing performed at [address] [address] Lymphocytes (Bld) [#/Vol] 2.5 10*3/uL Normal 1.2-3.4 [facility] Comment on above: Performed By: #### U MAC, UMIC #### Testing performed at [address] [place] [address] Lymphocytes/100 WBC (Bld) 15.8 % Low 20.0-55.0 [facility] Comment on above: Performed By: #### U MAC, UMIC #### Testing performed at [address] [address] Monocytes (Bld) [#/Vol] 0.5 10*3/uL Normal 0.0-0.7 [facility] Comment on above: Performed By: #### U MAC, UMIC #### Testing performed at [address] [address] Monocytes/100 WBC (Bld) 3.4 % Normal 0.0-10.0 [facility] Comment on above: Performed By: #### U MAC, UMIC #### Testing performed at [address] [place] [address] Neutrophils/100 WBC (Bld) 80.7 % High 37.0-75.0 [facility] Comment on above: Performed By: #### U MAC, UMIC #### Testing performed at [address] [address] Erythrocyte distribution width (RBC) [Ratio] 14.9 % High 11.5-14.5 [facility] Comment on above: Performed By: #### U MAC, UMIC #### Testing performed at [address] [address] Hematocrit (Bld) [Volume fraction] 34.6 % Low 36.0-48.0 [facility] Comment on above: Performed By: #### U MAC, UMIC #### Testing performed at [address] [address] Hemoglobin (Bld) [Mass/Vol] 11.7 g/dL Low 12.0-16.0 [facility] Comment on above: Performed By: #### U MAC, UMIC #### Testing performed at [address] [address] MCH (RBC) [Entitic mass] 28.1 pg Normal 26.0-35.0 [facility] Comment on above: Performed By: #### U MAC, UMIC #### Testing performed at [address] [address] MCHC (RBC) [Mass/Vol] 33.8 g/dL Normal 27.0-37.0 [facility] Comment on above: Performed By: #### U MAC, UMIC #### Testing performed at [address] [address] MCV (RBC) [Entitic vol] 83.1 fL Normal 80.0-100.0 [facility] Comment on above: Performed By: #### U MAC, UMIC #### Testing performed at [address] [address] Platelet mean volume (Bld) [Entitic vol] 7.6 fL Normal 7.4-11.0 [facility] Comment on above: Performed By: #### U MAC, UMIC #### Testing performed at [address] [address] Platelets (Bld) [#/Vol] 325 10*3/uL Normal 130-400 [facility] Comment on above: Performed By: #### U MAC, UMIC #### Testing performed at [address] [address] RBC (Bld) [#/Vol] 4.16 10*6/uL Normal 4.0-5.4 [facility] Comment on above: Performed By: #### U MAC, UMIC #### Testing performed at [address] [address] WBC (Bld) [#/Vol] 15.7 10*3/uL High 3.6-11.0 [facility] Comment on above: Performed By: #### U MAC, UMIC #### Testing performed at [address] [address] CBC, EDIF, PLATELETon 2023 ABSOLUTE BASOPHIL COUNT 0.0 10*3/uL 0.0 - 0.2 10*3/uL Basophils/100 WBC (Bld) 0.1 % 0.0 - 2.0 % Differential cell count method Nom (Bld) AUTO DIFF % Eosinophils (Bld) [#/Vol] 0.0 10*3/uL 0.0 - 0.7 10*3/uL Eosinophils/100 WBC (Bld) 0.0 % 0.0 - 11.0 % Erythrocyte distribution width (RBC) [Ratio] 14.9 % High 11.5 - 14.5 % Hematocrit (Bld) [Volume fraction] 34.6 % Low 36.0 - 48.0 % Hemoglobin (Bld) [Mass/Vol] 11.7 g/dL Low Interpretation and review of laboratory results Abnormal Lymphocytes (Bld) [#/Vol] 2.5 10*3/uL 1.2 - 3.4 10*3/uL Lymphocytes/100 WBC (Bld) 15.8 % Low 20.0 - 55.0 % MCH (RBC) [Entitic mass] 28.1 pg 26.0 - 35.0 PG MCHC (RBC) [Mass/Vol] 33.8 g/dL [facility] MCV (RBC) [Entitic vol] 83.1 fL [facility] Monocytes (Bld) [#/Vol] 0.5 10*3/uL 0.0 - 0.7 10*3/uL [facility] Monocytes/100 WBC (Bld) 3.4 % 0.0 - 10.0 % [facility] Neutrophils (Bld) [#/Vol] 12.7 10*3/uL High 1.4 - 6.5 10*3/uL [facility] Neutrophils/100 WBC (Bld) 80.7 % High 37.0 - 75.0 % [facility] Platelet mean volume (Bld) [Entitic vol] 7.6 fL [facility] Platelets (Bld) [#/Vol] 325 10*3/uL 130 - 400 10*3/uL [facility] RBC (Bld) [#/Vol] 4.16 10*6/uL 4.0 - 5.4 10*6/uL [facility] WBC (Bld) [#/Vol] 15.7 10*3/uL High 3.6 - 11.0 10*3/uL [facility] Cardiac echo study Procedure on 10-13-2023 [...] ms MVA PHT 3.94 cm2 MV Dec [place] 482.74 cm/s2 MV Decel. Time 223.67 (160-240 ms) Pulmonary Valve PV Peak Velocity 1.0 (0.5-1.5 m/s) [place] End VMAX 1.8 m/s PV maxPG 4.0 mmHg PV Vmax 1.0 m/s [place] End PG 8.93 mmHg Tricuspid Valve TR [...] Doppler, and color-flow Echocardiogram Imaging system used: Chatterous 2D Dimensions IVSd 1.0 cm F: 0.6-0.9LVEF (Tavarez's)75.66 % F: 54 - 74 PWd 1.0 cm F: 0.6 - 0.9EF AP4-a2DQ71.27 % LVDd 5.4 cm F: 3.8 - 5.2EF AP2-a2DQ79.24 % LVDs 3.15 cm F: 2.2 - 3.5EF BP-a2DQ75.66 % Aortic Root 2.75 cm F: 2.7 - 3.9QJCFD88 mL Aortic Root Index1.2 cm/i9HYTDU76.28 mL F: 46 - 106 Ascending Aorta 3.26 cm F: 2.3 - 3.1LV Volume Index40.40 mL/m2 F: 29 - 61 Ascending Aorta Index: 1.5 cm/m2LA Wfwqam64.7 mL Left Atrium 4.28 cm F: 2.7 [...] MV PHT55.78 msMVA PHT3.94 cm2 MV Dec [place] 482.74 cm/s2MV Decel. Kxpe020.67 (160-240 ms) Pulmonary Valve PV Peak Velocity1.0 (0.5-1.5 m/s)[place] End VMAX1.8 m/s PV maxPG4.0 mmHgPV Vmax1.0 m/s [place] End PG 8.93 mmHg Tricuspid Valve TR P. Velocity2.60 m/sRAP Estimate8 mmHg RVSP35.13 mmHgTR maxPG 27.13 mmHg S'0.13 m/s M-Mode Aortic Cusp Exc1.79 cm Radiology Study observation (narrative) Cardiac echo study Procedure Ordered By: Denny Pineda on 10-13-2023 Work Phone: ESRon 10-13-2023 ESR (Bld) [Velocity] 43 mm/h High 0-15 [facility] Comment on above: Performed By: #### U MAC, [facility] #### Testing performed at [facility] [address] [place] [address] LACTATE, BLOODon 10-13-2023 Interpretation and review of laboratory results Abnormal Lactate [Moles/Vol] 4.6 mmol/L Critically high 0.7 - 2.0 mmol/L Comment on above: PLEASE REPEAT INITIA L CRITICAL IN 3 HOURS IF ED OR INPATIENT SEPSIS PATIENT Result called to read back by: KENNA 10/13/2023 @ 11:39 by [employer] Interpretation and review of laboratory results Abnormal Lactate [Moles/Vol] 5.0 mmol/L Critically high 0.7 - 2.0 mmol/L Comment on above: PLEASE REPEAT INITIA L CRITICAL IN 3 HOURS IF ED OR INPATIENT SEPSIS PATIENT Result called to read back by: JARETT NAIR 10/13/2023 @ 05:30 by HRE Interpretation and review of laboratory results Abnormal Lactate [Moles/Vol] 4.2 mmol/L Critically high 0.7 - 2.0 mmol/L Comment on above: PLEASE REPEAT INITIA L CRITICAL IN 3 HOURS IF ED OR INPATIENT SEPSIS PATIENT Result called to read back by: JUANJO DANIEL 10/13/2023 @ 00:30 by DIANA LACTATE,BLOODon 10-13-2023 Lactate [Moles/Vol] 4.6 mmol/L Critically high 0.7-2.0 [facility] Comment on above: Result Comment: PLEA SE REPEAT INITIAL CRITICAL IN 3 HOURS IF ED OR INPATIENT SEPSIS PATIENT Result called to read back by: KENNA 10/13/2023 @ 11:39 by [employer] WORK[employer] Performed By: #### C OVID #### Testing performed at [address] [address] Lactate [Moles/Vol] 5.0 mmol/L Critically high 0.7-2.0 [facility] Comment on above: Result Comment: PLEA SE REPEAT INITIAL CRITICAL IN 3 HOURS IF ED OR INPATIENT SEPSIS PATIENT Result called to read back by: JARETT NAIR 10/13/2023 @ 05:30 by HRE Performed By: #### U MAC, UMIC #### Testing performed at [address] [address] Lactate [Moles/Vol] 4.2 mmol/L Critically high 0.7-2.0 [facility] Comment on above: Result Comment: PLEA SE REPEAT INITIAL CRITICAL IN 3 HOURS IF ED OR INPATIENT SEPSIS PATIENT Result called to read back by: JUANJO DANIEL 10/13/2023 @ 00:30 by DIANA Performed By: #### U MAC, UMIC #### Testing performed at [address] [address] MAGNESIUMon 10-13-2023 Magnesium [Mass/Vol] 2.1 mg/dL [facility] Magnesium [Mass/Vol] 2.1 mg/dL Normal 1.6-2.3 [facility] Comment on above: Performed By: #### U [facility], UMZARIA #### Testing performed at [facility] [address] [place] [address] No Panel Informationon 10-12 Interpretation and review of laboratory results Abnormal [facility] RENAL FUNCTION PANELon 10-12 Albumin [Mass/Vol] 3.6 G/dl 3.5 - 5.0 G/dl [facility] Calcium [Mass/Vol] 8.7 mg/dL Chloride [Moles/Vol] 104 mmol/L [facility] Comment on above: Please note: Triglyc eride levels of 600mg/dL or higher may positively bias chloride results by approximately 2.1 mmol CO2 [Moles/Vol] 23 mmol/L [facility] Creatinine [Mass/Vol] 0.50 mg/dL Low [facility] GFR COMMENT Average GFR for 30-3 9 years old = 107. Comment on above: Chronic Kidney disea se, GFR = <60. Kidney failure, GFR = <15. The GFR estimate is not adjusted for extreme body surface area or acute process, nor has it been validated for women or ethnic groups other than and . GFR/1.73 sq M.predicted among blacks MDRD (S/P/Bld) [Vol rate/Area] 186 mL/min/{1.73_m2} ml/min/1.73s q.m [facility] GFR/1.73 sq M.predicted among non-blacks MDRD (S/P/Bld) [Vol rate/Area] 154 mL/min/{1.73_m2} ml/min/1.73s q.m [facility] Glucose post fast [Mass/Vol] 151 mg/dL High Comment on above: NORMAL <100 mg/dL PREDIABETES 101-126 mg/dL DIABETES 126 mg/dL or higher Phosphate [Mass/Vol] 2.8 mg/dL [facility] Potassium [Moles/Vol] 3.9 mmol/L [facility] Sodium [Moles/Vol] 135 mmol/L Low [facility] Urea nitrogen [Mass/Vol] 15 mg/dL RENAL PANEL,FASTINGon 2023 ALBUMIN 3.6 G/dl Normal 3.5-5.0 [facility] Comment on above: Performed By: #### U MAC, UMIC #### Testing performed at [address] [address] Calcium [Mass/Vol] 8.7 mg/dL Normal 8.4-10.2 [facility] Comment on above: Performed By: #### U MAC, UMIC #### Testing performed at [address] [address] Chloride [Moles/Vol] 104 mmol/L Normal 98-107 [facility] Comment on above: Result Comment: Klaus baptiste note: Triglyceride levels of 600mg/dL or higher may positively bias chloride results by approximately 2.1 mmol Performed By: #### U MAC, UMIC #### Testing performed at [address] [address] CO2 [Moles/Vol] 23 mmol/L Normal 22-30 [facility] Comment on above: Performed By: #### U MAC, UMIC #### Testing performed at [address] [address] Creatinine [Mass/Vol] 0.50 mg/dL Low 0.70-1.20 [facility] Comment on above: Performed By: #### U MAC, UMIC #### Testing performed at [address] [address] EST. GFR, 186 ml/min/1.73sq.m [facility] Comment on above: Performed By: #### U MAC, UMIC #### Testing performed at [address] [address] EST. GFR,Non 154 ml/min/1.73sq.m [facility] Comment on above: Performed By: #### U MAC, UMIC #### Testing performed at [address] [address] GFR Information Average GFR for 30-3 9 years old = 107. Normal [facility] Comment on above: Result Comment: [place] [employer] bentley Kidney disease, GFR = <60. Kidney failure, GFR = <15. The GFR estimate is not adjusted for extreme body surface area or acute process, nor has it been validated for women or ethnic groups other than and . Performed By: #### U MAC, UMIC #### Testing performed at [address] [address] Glucose [Mass/Vol] 151 mg/dL High 70-100 [facility] Comment on above: Result Comment: NORMAL <100 mg/dL PREDIABETES 101-126 mg/dL DIABETES 126 mg/dL or higher Performed By: #### U ERIC, UMIC #### Testing performed at [address] [address] PHOSPHOROUS 2.8 MG/DL Normal 2.5-4.5 [facility] Comment on above: Performed By: #### U ERIC, UMIC #### Testing performed at [address] [address] Potassium [Moles/Vol] 3.9 mmol/L Normal 3.5-5.1 [facility] Comment on above: Performed By: #### U ERIC, UMIC #### Testing performed at [address] [address] Sodium [Moles/Vol] 135 mmol/L Low 137-145 [facility] Comment on above: Performed By: #### U ERIC, UMIC #### Testing performed at [address] [address] Urea nitrogen [Mass/Vol] 15 mg/dL Normal 7-20 [facility] Comment on above: Performed By: #### U MAC, UMIC #### Testing performed at [address] [address] SEDIMENTATION RATE, AUTOMATE Don 10-13-2023 ESR (Bld) [Velocity] 43 mm/h [facility] Interpretation and review of laboratory results Abnormal [facility] XR CHEST PA 1 VIEWon 024 [...] the exam of one day prior. Normal [facility] XR Chest PA uprighton 2023 IMPRESSION: 1. [...] from the exam of one day prior. Radiology Study observation (narrative) XR Chest PA uprightOrdered B y: Nissa Newby on 10-13-2023 B TYPE NATRIURETIC PEPTIDEon 10-12-2023 Natriuretic peptide B (Bld) [Mass/Vol] 68 pg/mL Normal [facility] Comment on above: Performed By: #### E SR, BNP, CREACT ####Testing performed at [address] [address] B-TYPE NATRIURETIC PEPTIDE ( BRAIN)on 10-12-2023 Natriuretic peptide B (Bld) [Mass/Vol] 68 pg/mL [facility] C REACTIVE PROTEINon 024 CRP [Mass/Vol] 35.0 mg/L High 0 - 10 MG/L Interpretation and review of laboratory results Abnormal [facility] CRP [Mass/Vol] 35.0 mg/L High 0-10 [facility] Comment on above: Performed By: #### E SR, BNP, CREACT ####Testing performed at [address] [address] CBCon 10-12-2023 ABSOLUTE BAS 0.0 10*3/uL Normal 0.0-0.2 [facility] Comment on above: Performed By: #### R ENF MG ACBC ####Testing performed at [place] [id number] ABSOLUTE EOS 0.0 10*3/uL Normal 0.0-0.7 [facility] Comment on above: Performed By: #### R ENF MG ACBC ####Testing performed at [address] [address] ABSOLUTE NEUTROPHIL COUNT 12.1 10*3/uL High 1.4-6.5 [facility] Comment on above: Performed By: #### R ENF MG, ACBC ####Testing performed at [address] [address] Basophils/100 WBC (Bld) 0.1 % Normal 0.0-2.0 [facility] Comment on above: Performed By: #### R ENF MG ACBC ####Testing performed at [address] [address] DTYPE AUTO DIFF Normal [facility] Comment on above: Performed By: #### R ENF MG ACBC ####Testing performed at [place] [id number] Eosinophils/100 WBC (Bld) 0.0 % Normal 0.0-11.0 [facility] Comment on above: Performed By: #### MG KENYATTA ACBC ####Testing performed at [address] [address] Lymphocytes (Bld) [#/Vol] 1.4 10*3/uL Normal 1.2-3.4 [facility] Comment on above: Performed By: #### MG KENYATTA ACBC ####Testing performed at [address] [address] Lymphocytes/100 WBC (Bld) 10.2 % Low 20.0-55.0 [facility] Comment on above: Performed By: #### MG KENYATTA ACBC ####Testing performed at [address] [address] Monocytes (Bld) [#/Vol] 0.5 10*3/uL Normal 0.0-0.7 [facility] Comment on above: Performed By: #### MG KENYATTA ACBC ####Testing performed at [address] [address] Monocytes/100 WBC (Bld) 3.5 % Normal 0.0-10.0 [facility] Comment on above: Performed By: #### MG KENYATTA ACBC ####Testing performed at [address] [address] Neutrophils/100 WBC (Bld) 86.2 % High 37.0-75.0 [facility] Comment on above: Performed By: #### R MG KENJI ACBC ####Testing performed at [address] [address] Erythrocyte distribution width (RBC) [Ratio] 14.7 % High 11.5-14.5 [facility] Comment on above: Performed By: #### MG KENYATTA ACBC ####Testing performed at [address] [address] Hematocrit (Bld) [Volume fraction] 35.5 % Low 36.0-48.0 [facility] Comment on above: Performed By: #### MG KENYATTA ACBC ####Testing performed at [address] [address] Hemoglobin (Bld) [Mass/Vol] 11.9 g/dL Low 12.0-16.0 [facility] Comment on above: Performed By: #### MG KENYATTA ACBC ####Testing performed at [place] [id number] MCH (RBC) [Entitic mass] 27.9 pg Normal 26.0-35.0 [facility] Comment on above: Performed By: #### Kylee [employer] Priscilla ACBC ####[place] [address] MCHC (RBC) [Mass/Vol] 33.5 g/dL Normal 27.0-37.0 [facility] Comment on above: Performed By: #### R MG KENJI ACBC ####Testing performed at [place] [id number] MCV (RBC) [Entitic vol] 83.3 fL Normal 80.0-100.0 [facility] Comment on above: Performed By: #### MG KENYATTA ACBC ####Testing performed at [address] [address] Platelet mean volume (Bld) [Entitic vol] 7.9 fL Normal 7.4-11.0 [facility] Comment on above: Performed By: #### MG KENYATTA ACBC ####Testing performed at [address] [address] Platelets (Bld) [#/Vol] 292 10*3/uL Normal 130-400 [facility] Comment on above: Performed By: #### R MG KENJI ACBC ####Testing performed at [address] [address] [address] RBC (Bld) [#/Vol] 4.26 10*6/uL Normal 4.0-5.4 [facility] Comment on above: Performed By: #### Kylee ENFMG ACBC ####Testing performed at [address] [address] WBC (Bld) [#/Vol] 14.0 10*3/uL High 3.6-11.0 [facility] Comment on above: Performed By: #### R ENF, MG, ACANTOLIN ####Testing performed at [address] [address] CBC, EDIF, PLATELETon 2023 ABSOLUTE BASOPHIL COUNT 0.0 10*3/uL 0.0 - 0.2 10*3/uL Basophils/100 WBC (Bld) 0.1 % 0.0 - 2.0 % Differential cell count method Nom (Bld) AUTO DIFF % Eosinophils (Bld) [#/Vol] 0.0 10*3/uL 0.0 - 0.7 10*3/uL Eosinophils/100 WBC (Bld) 0.0 % 0.0 - 11.0 % Erythrocyte distribution width (RBC) [Ratio] 14.7 % High 11.5 - 14.5 % Hematocrit (Bld) [Volume fraction] 35.5 % Low 36.0 - 48.0 % Hemoglobin (Bld) [Mass/Vol] 11.9 g/dL Low Interpretation and review of laboratory results Abnormal Lymphocytes (Bld) [#/Vol] 1.4 10*3/uL 1.2 - 3.4 10*3/uL Lymphocytes/100 WBC (Bld) 10.2 % Low 20.0 - 55.0 % MCH (RBC) [Entitic mass] 27.9 pg 26.0 - 35.0 PG MCHC (RBC) [Mass/Vol] 33.5 g/dL [facility] MCV (RBC) [Entitic vol] 83.3 fL Monocytes (Bld) [#/Vol] 0.5 10*3/uL 0.0 - 0.7 10*3/uL Monocytes/100 WBC (Bld) 3.5 % 0.0 - 10.0 % Neutrophils (Bld) [#/Vol] 12.1 10*3/uL High 1.4 - 6.5 10*3/uL [facility] Neutrophils/100 WBC (Bld) 86.2 % High 37.0 - 75.0 % [facility] Platelet mean volume (Bld) [Entitic vol] 7.9 fL [facility] Platelets (Bld) [#/Vol] 292 10*3/uL 130 - 400 10*3/uL [facility] RBC (Bld) [#/Vol] 4.26 10*6/uL 4.0 - 5.4 10*6/uL [facility] WBC (Bld) [#/Vol] 14.0 10*3/uL High 3.6 - 11.0 10*3/uL [facility] ESRon 10-12-2023 ESR (Bld) [Velocity] 53 mm/h High 0-15 [facility] Comment on above: Performed By: #### E SR, BNP, CREACT ####[place] [address] LACTATE, BLOODon 10-12-2023 Interpretation and review of laboratory results Abnormal [facility] Lactate [Moles/Vol] 3.7 mmol/L Critically high 0.7 - 2.0 mmol/L Comment on above: PLEASE REPEAT INITIA L CRITICAL IN 3 HOURS IF ED OR INPATIENT SEPSIS PATIENT Result called to read back by: JOANIE DENSON 10/12/2023 @ 21:17 by [facility] Interpretation and review of laboratory results Abnormal [facility] Lactate [Moles/Vol] 3.6 mmol/L Critically high 0.7 - 2.0 mmol/L Comment on above: PLEASE REPEAT INITIA L CRITICAL IN 3 HOURS IF ED OR INPATIENT SEPSIS PATIENT Result called to read back by: JOANIE THOMPSON 10/12/2023 @ 18:15 [facility] Interpretation and review of laboratory results Abnormal [facility] Lactate [Moles/Vol] 4.2 mmol/L Critically high 0.7 - 2.0 mmol/L Comment on above: PLEASE REPEAT INITIA L CRITICAL IN 3 HOURS IF ED OR INPATIENT SEPSIS PATIENT Result called to read back by: VIRGINIA 10/12/2023 @ 14:54 by WB Interpretation and review of laboratory results Abnormal Lactate [Moles/Vol] 4.7 mmol/L Critically high 0.7 - 2.0 mmol/L Comment on above: PLEASE REPEAT INITIA L CRITICAL IN 3 HOURS IF ED OR INPATIENT SEPSIS PATIENT Result called to read back by: VIRGINIA 10/12/2023 @ 13:11 by WB LACTATE,BLOODon 10-12-2023 Lactate [Moles/Vol] 3.7 mmol/L Critically high 0.7-2.0 [facility] Comment on above: Result Comment: PLEA SE REPEAT INITIAL CRITICAL IN 3 HOURS IF ED OR INPATIENT SEPSIS PATIENT Result called to read back by: JOANIE DENSON 10/12/2023 @ 21:17 by ALL Performed By: #### L ACTA ####Testing performed at [address] [address] Lactate [Moles/Vol] 3.6 mmol/L Critically high 0.7-2.0 [facility] Comment on above: Result Comment: PLEA SE REPEAT INITIAL CRITICAL IN 3 HOURS IF ED OR INPATIENT SEPSIS PATIENT Result called to read back by: JOANIE THOMPSON 10/12/2023 @ 18:15 by DIANA Performed By: #### U MAC, UMIC #### Testing performed at [address] [address] Lactate [Moles/Vol] 4.2 mmol/L Critically high 0.7-2.0 [facility] Comment on above: Result Comment: PLEA SE REPEAT INITIAL CRITICAL IN 3 HOURS IF ED OR INPATIENT SEPSIS PATIENT Result called to read back by: VIRGINIA 10/12/2023 @ 14:54 by WB Performed By: #### U MAC, UMIC #### Testing performed at [address] [address] Lactate [Moles/Vol] 4.7 mmol/L Critically high 0.7-2.0 [facility] Comment on above: Result Comment: PLEA SE REPEAT INITIAL CRITICAL IN 3 HOURS IF ED OR INPATIENT SEPSIS PATIENT Result called to read back by: VIRGINIA 10/12/2023 @ 13:11 by WB Performed By: #### U MAC, UMIC #### Testing performed at [address] [address] MAGNESIUMon 10-12-2023 Magnesium [Mass/Vol] 2.0 mg/dL [facility] Magnesium [Mass/Vol] 2.0 mg/dL Normal 1.6-2.3 [facility] Comment on above: Performed By: #### R ENF, MG, ACBC ####Testing performed at [address] [address] No Panel Informationon 10-11 [facility] PROCALCITONINon 10-12-2023 PROCALCITONIN 0.06 ng/mL 0.00 - 0.25 ng/mL Comment on above: PCT Interpretation Less than 0.10 ng/mL, antibiotic therapy strongly discouraged. 0.10-0.25 ng/mL, antibiotic therapy discouraged. 0.25-0.50 ng/mL, antibiotic therapy encouraged. Greater than 0.50 ng/mL, antibiotic therapy strongly encouraged. PROCALCITONIN 0.06 ng/mL Normal 0.00-0.25 [facility] Comment on above: Result Comment: PCT Interpretation Less than 0.10 ng/mL, antibiotic therapy strongly discouraged. 0.10-0.25 ng/mL, antibiotic therapy discouraged. 0.25-0.50 ng/mL, antibiotic therapy encouraged. Greater than 0.50 ng/mL, antibiotic therapy strongly encouraged. Performed By: #### U MAC, UMIC #### Testing performed at [address] [address] Portable XR Chest Viewson IMPRESSION: Bibasilar consolidation [...] IMPRESSION: Bibasilar consolidation with bilateral pleural effusions. [employer] Radiology Study observation (narrative) [employer] Portable XR Chest ViewsOrder ed By: Willie Yinkanika on 10-12-2023 [employer] Work Phone: RENAL FUNCTION PANELon 10-11 Albumin [Mass/Vol] 3.7 G/dl 3.5 - 5.0 G/dl [facility] Calcium [Mass/Vol] 8.5 mg/dL [employer] Chloride [Moles/Vol] 109 mmol/L High [employer] Comment on above: Please note: Triglyc eride levels of 600mg/dL or higher may positively bias chloride results by approximately 2.1 mmol CO2 [Moles/Vol] 19 mmol/L Low [facility] Creatinine [Mass/Vol] 0.50 mg/dL Low [employer] GFR COMMENT Average GFR for 30-3 9 years old = 107. [employer] Comment on above: Chronic Kidney disea se, GFR = <60. Kidney failure, GFR = <15. The GFR estimate is not adjusted for extreme body surface area or acute process, nor has it been validated for women or ethnic groups other than and . GFR/1.73 sq M.predicted among blacks MDRD (S/P/Bld) [Vol rate/Area] 186 mL/min/{1.73_m2} ml/min/1.73s q.m [facility] GFR/1.73 sq M.predicted among non-blacks MDRD (S/P/Bld) [Vol rate/Area] 154 mL/min/{1.73_m2} ml/min/1.73s q.m [facility] Glucose post fast [Mass/Vol] 209 mg/dL High [employer] [facility] Comment on above: NORMAL <100 mg/dL PREDIABETES 101-126 mg/dL DIABETES 126 mg/dL or higher Interpretation and review of laboratory results Abnormal [employer] Phosphate [Mass/Vol] 2.3 mg/dL Low [facility] Potassium [Moles/Vol] 3.5 mmol/L [employer] [facility] Sodium [Moles/Vol] 137 mmol/L Urea nitrogen [Mass/Vol] 13 mg/dL RENAL PANEL,FASTINGon 2023 ALBUMIN 3.7 G/dl Normal 3.5-5.0 [facility] Comment on above: Performed By: #### MG YOU ACBC ####[place] [address] Calcium [Mass/Vol] 8.5 mg/dL Normal 8.4-10.2 [facility] Comment on above: Performed By: #### MG YOU ACBC ####[place] [address] Chloride [Moles/Vol] 109 mmol/L High 98-107 [facility] Comment on above: Result Comment: Klaus baptiste note: Triglyceride levels of 600mg/dL or higher may positively bias chloride results by approximately 2.1 mmol Performed By: #### MG YOU ACBC ####[place] [address] CO2 [Moles/Vol] 19 mmol/L Low 22-30 [facility] Comment on above: Performed By: #### MG YOU ACBC ####[place] [address] Creatinine [Mass/Vol] 0.50 mg/dL Low 0.70-1.20 [facility] Comment on above: Performed By: #### MG YOU ACBC ####Testing performed at [place] [id number] EST. GFR, 186 ml/min/1.73sq.m [facility] Comment on above: Performed By: #### R MG PHILLIP ACBC ####Testing performed at [place] [id number] EST. GFR,Non 154 ml/min/1.73sq.m [facility] Comment on above: Performed By: #### R ENMG Wells ACBC ####Testing performed at [employer] [address] [place] [address] GFR Information Average GFR for 30-3 9 years old = 107. Normal [facility] Comment on above: Result Comment: [employer] bentley Kidney disease, GFR = <60. Kidney failure, GFR = <15. The GFR estimate is not adjusted for extreme body surface area or acute process, nor has it been validated for women or ethnic groups other than and . Performed By: #### R MG PHILLIP ACBC ####Testing performed at [place] [id number] Glucose [Mass/Vol] 209 mg/dL High 70-100 [facility] Comment on above: Result Comment: NORMAL <100 mg/dL PREDIABETES 101-126 mg/dL DIABETES 126 mg/dL or higher Performed By: #### R MG PHILLIP ACBC ####Testing performed at [place] [id number] PHOSPHOROUS 2.3 MG/DL Low 2.5-4.5 [facility] Comment on above: Performed By: #### R MG PHILLIP ACBC ####Testing performed at [place] [id number] Potassium [Moles/Vol] 3.5 mmol/L Normal 3.5-5.1 [facility] Comment on above: Performed By: #### R MG PHILLIP ACBC ####Testing performed at [place] [id number] Sodium [Moles/Vol] 137 mmol/L Normal 137-145 [facility] Comment on above: Performed By: #### R MG KENJI ACANTOLIN ####Testing performed at [place] [id number] Urea nitrogen [Mass/Vol] 13 mg/dL Normal 7-20 [facility] Comment on above: Performed By: #### R MG KENJI ACANTOLIN ####Testing performed at [address] [address] SEDIMENTATION RATE, AUTOMATE Don 10-12-2023 ESR (Bld) [Velocity] 53 mm/h [facility] Interpretation and review of laboratory results Abnormal [facility] TROPONIN I, HIGH SENSITIVITY on 10-12-2023 TROPONIN I, HIGH SENSITIVITY 3 pg/mL 0 - 12 pg/mL Comment on above: Indeterminant: >12 to 100 pg/mL female >20 to 100 pg/mL male Indicative of myocardial injury. Serial sampling is recommended, a change of greater than or equal to 20 pg/mL is indicative of acute coronary syndrome. [facility] TROPONIN I, HIGH SENSITIVITY 3 pg/mL Normal 0-12 [facility] Comment on above: Result Comment: Indeterminant: >12 to 100 pg/mL female >20 to 100 pg/mL male Indicative of myocardial injury. Serial sampling is recommended, a change of greater than or equal to 20 pg/mL is indicative of acute coronary syndrome. Performed By: #### T [facility] ####Testing performed at [place] [id number] TROPONIN I, HIGH SENSITIVITY 3 pg/mL 0 - 12 pg/mL Comment on above: Indeterminant: >12 to 100 pg/mL female >20 to 100 pg/mL male Indicative of myocardial injury. Serial sampling is recommended, a change of greater than or equal to 20 pg/mL is indicative of acute coronary syndrome. TROPONIN I, HIGH SENSITIVITY 3 pg/mL Normal 0-12 [facility] Comment on above: Result Comment: Indeterminant: >12 to 100 pg/mL female >20 to 100 pg/mL male Indicative of myocardial injury. Serial sampling is recommended, a change of greater than or equal to 20 pg/mL is indicative of acute coronary syndrome. Performed By: #### U [facility] #### Testing performed at [place] [id number] URINALYSIS, MACROon 10-12-19 24 Bilirubin Ql (U) [...] pH (U) 6.5 [pH] 5.0 - 7.0 Protein Ql (U) 100 mg/dl Abnormal NEGATIVE Specific gravity (U) [Rel density] 1.025 1.010 - 1.025 Urobilinogen (U) [Mass/Vol] 0.2 mg/dL URINE MACROSCOPICon 10-12-19 24 Bilirubin Ql (U) Negative Normal NEGATIVE [facility] Comment on above: Performed By: #### U MAC, UMIC #### Testing performed at [address] [address] Clarity (U) CLEAR Normal CLEAR [facility] Comment on above: Performed By: #### U MAC, UMIC #### Testing performed at [address] [address] Color (U) YELLOW Normal YELLOW [facility] Comment on above: Performed By: #### U MAC, UMIC #### Testing performed at [address] [address] Glucose Ql (U) 500 mg/dl Abnormal NEGATIVE [facility] Comment on above: Performed By: #### U MAC, UMIC #### Testing performed at [address] [address] pH (U) 6.5 [pH] Normal 5.0-7.0 [facility] Comment on above: Performed By: #### U MAC, UMIC #### Testing performed at [address] [address] Protein (U) [Mass/Vol] 100 mg/dL Abnormal NEGATIVE [facility] Comment on above: Performed By: #### U MAC, UMIC #### Testing performed at [address] [address] URINE HEMOGLOBIN SMALL Abnormal NEGATIVE [facility] Comment on above: Performed By: #### U MAC, UMIC #### Testing performed at [address] [address] URINE KETONE Negative Normal NEGATIVE [facility] Comment on above: Performed By: #### U MAC, UMIC #### Testing performed at [address] [address] URINE LEUKOTEST Negative Normal NEGATIVE [facility] Comment on above: Performed By: #### U MAC, UMIC #### Testing performed at [address] [address] URINE NITRATES Negative Normal NEGATIVE [facility] Comment on above: Performed By: #### U MAC, UMIC #### Testing performed at [address] [address] URINE SPEC GRAVITY 1.025 Normal 1.010-1.025 [facility] Comment on above: Performed By: #### U MAC, UMIC #### Testing performed at [address] [address] Urobilinogen Qn (U) 0.2 {Dell'U}/dL Normal 0.2-1.0 [facility] Comment on above: Performed By: #### U MAC, UMIC #### Testing performed at [address] [address] URINE MICROSCOPICon 10-12-19 24 Bacteria LM.HPF (Urine sed) [#/Area] Negative NEGATIVE Casts LM.LPF (Urine sed) [#/Area] NONE NONE /LPF Crystals LM Nom (Urine sed) NONE NONE Epithelial cells LM Ql (Urine sed) 1 TO 5 /HPF Mucus Ql (Urine sed) Negative NEGATIVE [facility] RBC LM.HPF (Urine sed) [#/Area] Negative NEGATIVE /HPF Urine sediment comments LM Dillan (Urine sed) CULTURE CRITERIA NOT MET, NO CULTURE PERFORMED. WBC LM.HPF (Urine sed) [#/Area] Negative NEGATIVE /HPF Bacteria LM.HPF (Urine sed) [#/Area] Negative Normal NEGATIVE [facility] Comment on above: Performed By: #### U MAC, UMIC #### Testing performed at [address] [address] CASTS NONE Normal [facility] Comment on above: Performed By: #### U MAC, UMIC #### Testing performed at [address] [address] CRYSTAL NONE Normal [facility] Comment on above: Performed By: #### U MAC, UMIC #### Testing performed at [address] [address] Epithelial cells LM Ql (Urine sed) 1 TO 5 Normal [facility] Comment on above: Performed By: #### U MAC, UMIC #### Testing performed at [address] [address] Mucus Ql (Urine sed) Negative Normal NEGATIVE [facility] Comment on above: Performed By: #### U MAC, UMIC #### Testing performed at [address] [address] URINE COMMENT CULTURE CRITERIA NOT MET, NO CULTURE PERFORMED. Normal [facility] Comment on above: Performed By: #### U MAC, UMIC #### Testing performed at [address] [address] URINE RBC'S Negative Normal NEGATIVE [facility] Comment on above: Performed By: #### U MAC, UMIC #### Testing performed at [address] [address] URINE WBC'S Negative Normal NEGATIVE [facility] Comment on above: Performed By: #### U MAC, UMIC #### Testing performed at [address] [address] XR CHEST 1 VIEW PORTABLEon 0 10-12-2023 XR CHEST 1 VIEW PORTABLE EXAM: XR CHEST 1 VIEW PORTABLE HISTORY: chest pain COMPARISON: CT chest 10/11/2023. TECHNIQUE: Single view chest. FINDINGS: There is moderate bibasilar consolidation and moderate bilateral pleural effusions. No pneumothorax. Heart size is borderline. Bones are unremarkable. IMPRESSION: Bibasilar consolidation with bilateral pleural effusions. Normal [facility] C REACTIVE PROTEINon 024 CRP [Mass/Vol] 158.6 mg/L High 0 - 10 MG/L Interpretation and review of laboratory results Abnormal [facility] CRP [Mass/Vol] 158.6 mg/L High 0-10 [facility] Comment on above: Performed By: #### C REACT, ESR ####Testing performed at [address] [address] CBCon 10-11-2023 ABSOLUTE BAS 0.0 10*3/uL Normal 0.0-0.2 [facility] Comment on above: Performed By: #### U MAC, UMIC #### Testing performed at [address] [address] ABSOLUTE EOS 0.0 10*3/uL Normal 0.0-0.7 [facility] Comment on above: Performed By: #### U MAC, UMIC #### Testing performed at [address] [place] [address] ABSOLUTE NEUTROPHIL COUNT 8.0 10*3/uL High 1.4-6.5 [facility] Comment on above: Performed By: #### U MAC, UMIC #### Testing performed at [address] [place] [address] Basophils/100 WBC (Bld) 0.2 % Normal 0.0-2.0 [facility] Comment on above: Performed By: #### U MAC, UMIC #### Testing performed at [address] [place] [address] DTYPE AUTO DIFF Normal [facility] Comment on above: Performed By: #### U MAC, UMIC #### Testing performed at [address] [address] Eosinophils/100 WBC (Bld) 0.0 % Normal 0.0-11.0 [facility] Comment on above: Performed By: #### U MAC, UMIC #### Testing performed at [address] [address] Lymphocytes (Bld) [#/Vol] 0.9 10*3/uL Low 1.2-3.4 [facility] Comment on above: Performed By: #### U MAC, UMIC #### Testing performed at [address] [place] [address] Lymphocytes/100 WBC (Bld) 9.9 % Low 20.0-55.0 [facility] Comment on above: Performed By: #### U MAC, UMIC #### Testing performed at [address] [address] Monocytes (Bld) [#/Vol] 0.2 10*3/uL Normal 0.0-0.7 [facility] Comment on above: Performed By: #### U MAC, UMIC #### Testing performed at [address] [place] [address] Monocytes/100 WBC (Bld) 2.1 % Normal 0.0-10.0 [facility] Comment on above: Performed By: #### U MAC, UMIC #### Testing performed at [address] [place] [address] Neutrophils/100 WBC (Bld) 87.8 % High 37.0-75.0 [facility] Comment on above: Performed By: #### U MAC, UMIC #### Testing performed at [address] [place] [address] Erythrocyte distribution width (RBC) [Ratio] 14.7 % High 11.5-14.5 [facility] Comment on above: Performed By: #### U MAC, UMIC #### Testing performed at [address] [place] [address] Hematocrit (Bld) [Volume fraction] 39.3 % Normal 36.0-48.0 [facility] Comment on above: Performed By: #### U MAC, UMIC #### Testing performed at [address] [place] [address] Hemoglobin (Bld) [Mass/Vol] 13.0 g/dL Normal 12.0-16.0 [facility] Comment on above: Performed By: #### U MAC, UMIC #### Testing performed at [address] [place] [address] MCH (RBC) [Entitic mass] 28.1 pg Normal 26.0-35.0 [facility] Comment on above: Performed By: #### U MAC, UMIC #### Testing performed at [address] [place] [address] MCHC (RBC) [Mass/Vol] 33.1 g/dL Normal 27.0-37.0 [facility] Comment on above: Performed By: #### U MAC, UMIC #### Testing performed at [address] [place] [address] MCV (RBC) [Entitic vol] 84.7 fL Normal 80.0-100.0 [facility] Comment on above: Performed By: #### U MAC, UMIC #### Testing performed at [address] [address] Platelet mean volume (Bld) [Entitic vol] 7.7 fL Normal 7.4-11.0 [facility] Comment on above: Performed By: #### U MAC, UMIC #### Testing performed at [address] [address] Platelets (Bld) [#/Vol] 232 10*3/uL Normal 130-400 [facility] Comment on above: Performed By: #### U MAC, UMIC #### Testing performed at [address] [address] RBC (Bld) [#/Vol] 4.63 10*6/uL Normal 4.0-5.4 [facility] Comment on above: Performed By: #### U MAC, UM #### Testing performed at [address] [address] WBC (Bld) [#/Vol] 9.1 10*3/uL Normal 3.6-11.0 [facility] Comment on above: Performed By: #### U MAC, IC #### Testing performed at [address] [address] CBC, EDIF, PLATELETon 2023 ABSOLUTE BASOPHIL COUNT 0.0 10*3/uL 0.0 - 0.2 10*3/uL [facility] Basophils/100 WBC (Bld) 0.2 % 0.0 - 2.0 % [facility] Differential cell count method Nom (Bld) AUTO DIFF % [facility] Eosinophils (Bld) [#/Vol] 0.0 10*3/uL 0.0 - 0.7 10*3/uL [facility] Eosinophils/100 WBC (Bld) 0.0 % 0.0 - 11.0 % [facility] Erythrocyte distribution width (RBC) [Ratio] 14.7 % High 11.5 - 14.5 % [facility] Hematocrit (Bld) [Volume fraction] 39.3 % 36.0 - 48.0 % [facility] Hemoglobin (Bld) [Mass/Vol] 13.0 g/dL Interpretation and review of laboratory results Abnormal [facility] Lymphocytes (Bld) [#/Vol] 0.9 10*3/uL Low 1.2 - 3.4 10*3/uL Lymphocytes/100 WBC (Bld) 9.9 % Low 20.0 - 55.0 % MCH (RBC) [Entitic mass] 28.1 pg 26.0 - 35.0 PG MCHC (RBC) [Mass/Vol] 33.1 g/dL [facility] MCV (RBC) [Entitic vol] 84.7 fL Monocytes (Bld) [#/Vol] 0.2 10*3/uL 0.0 - 0.7 10*3/uL Monocytes/100 WBC (Bld) 2.1 % 0.0 - 10.0 % Neutrophils (Bld) [#/Vol] 8.0 10*3/uL High 1.4 - 6.5 10*3/uL Neutrophils/100 WBC (Bld) 87.8 % High 37.0 - 75.0 % Platelet mean volume (Bld) [Entitic vol] 7.7 fL Platelets (Bld) [#/Vol] 232 10*3/uL 130 - 400 10*3/uL RBC (Bld) [#/Vol] 4.63 10*6/uL 4.0 - 5.4 10*6/uL WBC (Bld) [#/Vol] 9.1 10*3/uL 3.6 - 11.0 10*3/uL [facility] CHEM 7 FASTINGon 10-11-2023 Chloride [Moles/Vol] 107 mmol/L Normal 98-107 [facility] Comment on above: Result Comment: Klaus baptiste note: Triglyceride levels of 600mg/dL or higher may positively bias chloride results by approximately 2.1 mmol Performed By: #### U MAC, UMIC #### Testing performed at [address] [address] CO2 [Moles/Vol] 21 mmol/L Low 22-30 [facility] Comment on above: Performed By: #### U MAC, UMIC #### Testing performed at [address] [address] Creatinine [Mass/Vol] 0.50 mg/dL Low 0.70-1.20 [facility] Comment on above: Performed By: #### U MAC, UMIC #### Testing performed at [address] [address] EST. GFR, 186 ml/min/1.73sq.m [facility] Comment on above: Performed By: #### U MAC, UMIC #### Testing performed at [address] [address] EST. GFR,Non 154 ml/min/1.73sq.m [facility] Comment on above: Performed By: #### U MAC, UMIC #### Testing performed at [address] [address] GFR Information Average GFR for 30-3 9 years old = 107. Normal [facility] Comment on above: Result Comment: [place] [employer] bentley Kidney disease, GFR = <60. Kidney failure, GFR = <15. The GFR estimate is not adjusted for extreme body surface area or acute process, nor has it been validated for women or ethnic groups other than and . Performed By: #### U MAC, UMIC #### Testing performed at [address] [address] Glucose [Mass/Vol] 239 mg/dL High 70-100 [facility] Comment on above: Result Comment: NORMAL <100 mg/dL PREDIABETES 101-126 mg/dL DIABETES 126 mg/dL or higher Performed By: #### U MAC, UMIC #### Testing performed at [address] [address] Potassium [Moles/Vol] 3.3 mmol/L Low 3.5-5.1 [facility] Comment on above: Performed By: #### U MAC, UMIC #### Testing performed at [address] [address] Sodium [Moles/Vol] 135 mmol/L Low 137-145 [facility] Comment on above: Performed By: #### U MAC, UMIC #### Testing performed at [address] [address] Urea nitrogen [Mass/Vol] 7 mg/dL Normal 10-10 [facility] Comment on above: Performed By: #### U ERIC, ZARIA #### Testing performed at [facility] [address] [place] [address] CHEM 7 (LYTES,BUN,CREA,GLUC) on 10-11-2023 Chloride [Moles/Vol] 107 mmol/L [facility] Comment on above: Please note: Triglyc eride levels of 600mg/dL or higher may positively bias chloride results by approximately 2.1 mmol CO2 [Moles/Vol] 21 mmol/L Low [facility] Creatinine [Mass/Vol] 0.50 mg/dL Low [facility] GFR COMMENT Average GFR for 30-3 9 years old = 107. Comment on above: Chronic Kidney disea se, GFR = <60. Kidney failure, GFR = <15. The GFR estimate is not adjusted for extreme body surface area or acute process, nor has it been validated for women or ethnic groups other than and . GFR/1.73 sq M.predicted among blacks MDRD (S/P/Bld) [Vol rate/Area] 186 mL/min/{1.73_m2} ml/min/1.73s q.m [facility] GFR/1.73 sq M.predicted among non-blacks MDRD (S/P/Bld) [Vol rate/Area] 154 mL/min/{1.73_m2} ml/min/1.73s q.m [facility] Glucose post fast [Mass/Vol] 239 mg/dL High [facility] Comment on above: NORMAL <100 mg/dL PREDIABETES 101-126 mg/dL DIABETES 126 mg/dL or higher Interpretation and review of laboratory results Abnormal [facility] Potassium [Moles/Vol] 3.3 mmol/L Low [employer] [facility] Sodium [Moles/Vol] 135 mmol/L Low [facility] Urea nitrogen [Mass/Vol] 7 mg/dL [facility] CT CHEST WITHOUT CONTRASTon 10-11-2023 [...] Tiny right pleural effusion. Mild cardiomegaly. Normal [facility] CT Chest WO contraston 10-10 IMPRESSION: Bilateral [...] infiltrates. Tiny right pleural effusion. Mild cardiomegaly. [facility] observation (narrative) [facility] Chest WO contrastOrdered By: Holly Stern on 10-11-2023 [employer] Work Phone: CT PE STUDYon 10-11-2023 CT [...] consolidation lung bases right greater than left. [place] to be inflammatory. 3. Small right pleural effusion slightly increased. Normal [facility] CT Pulmonary arteries for pu lmonary emboluson 10-11-2023 IMPRESSION: 1. No definite pulmonary artery embolus or thrombus although assessment of the distal vessels is limited as noted above. No evidence of right ventricular strain. 2. Worsening lung parikh with developing groundglass density in the upper and mid lungs, worsening consolidation lung bases right greater than left. [place] to be inflammatory. 3. Small right pleural [...] consolidation lung bases right greater than left. [place] to be inflammatory. 3. Small right pleural effusion slightly increased. Radiology Study observation (narrative) CT Pulmonary arteries for pu lmonary embolusOrdered By: Denny Fraser on 10-11-2023 Work Phone: D DIMERon 10-11-2023 D DIMER 1.05 ??g/ml Critically high <0.50 [facility] Comment on above: Result Comment: If r esult is greater than the cutoff value of 0.50 ??g/ml then the potential for PE or DVT exists. Other conditions exist which may cause a falsely elevated level. Please correlate clinically, including radiological findings and other clinical parameters. Result called to and read back by: EBONY PARRISH 10/11/2023 @ 16:24 by [facility] Performed By: #### D DIMER #### Testing performed at [facility] [address] [place] [address] D-DIMER,QUANTITATIVEon 10-10 Fibrin D-dimer FEU (PPP) [Mass/Vol] 1.05 Critically high NINF Comment on above: If result is greater than the cutoff value of 0.50 g/ml then the potential for PE or DVT exists. Other conditions exist which may cause a falsely elevated level. Please correlate clinically, including radiological findings and other clinical parameters. Result called to and read back by: EBONY PARRISH 10/11/2023 @ 16:24 by [facility] Interpretation and review of laboratory results Abnormal [facility] ESRon 10-11-2023 ESR (Bld) [Velocity] 58 mm/h High 0-15 [facility] Comment on above: Performed By: #### C REACT, ESR ####Testing performed at [address] [address] L PNEUMOPHILIA AG URINEon L PNEUMOPHILIA AG URINE Negative Normal NEGATIVE [facility] Comment on above: Performed By: #### S PAGUT, LPAGUT ####Testing performed at [address] [address] [facility] AGon 07-2 0-2024 L. pneumophila 1 Ag IA Ql (U) Negative NEGATIVE MRSA SCREENon 10-11-2023 MRSA DNA JADYN+probe Ql (Unsp spec) Negative Normal NEGATIVE [facility] Comment on above: Performed By: #### M RSAST #### Testing performed at [address] [address] STAPH AUREUS SCREEN Negative Normal NEGATIVE [facility] Comment on above: Result Comment: TEST ING PERFORMED BY PCR Performed By: #### M RSAST #### Testing performed at [place] [id number] No Panel Informationon 10-10 PROCALCITONINon 10-11-2023 PROCALCITONIN 0.09 ng/mL 0.00 - 0.25 ng/mL Comment on above: PCT Interpretation Less than 0.10 ng/mL, antibiotic therapy strongly discouraged. 0.10-0.25 ng/mL, antibiotic therapy discouraged. 0.25-0.50 ng/mL, antibiotic therapy encouraged. Greater than 0.50 ng/mL, antibiotic therapy strongly encouraged. PROCALCITONIN 0.09 ng/mL Normal 0.00-0.25 [facility] Comment on above: Result Comment: PCT Interpretation Less than 0.10 ng/mL, antibiotic therapy strongly discouraged. 0.10-0.25 ng/mL, antibiotic therapy discouraged. 0.25-0.50 ng/mL, antibiotic therapy encouraged. Greater than 0.50 ng/mL, antibiotic therapy strongly encouraged. Performed By: #### U MAC, UMIC #### Testing performed at [address] [address] S PNEUMONIAE AG URINEon 09-22 S PNEUMONIAE AG URINE Negative Normal NEGATIVE [facility] Comment on above: Performed By: #### S PAGUT, LPAGUT ####Testing performed at [address] [address] SCREEN: MRSA ONLY, NARES (IS OLATION SCREEN)on 10-11-2023 MRSA isol Org specific cx Ql (Nose) Negative NEGATIVE STAPHYOCOCCUS AUREUS BY PCR Negative NEGATIVE Comment on above: TESTING PERFORMED BY PCR SEDIMENTATION RATE, AUTOMATE Don 10-11-2023 ESR (Bld) [Velocity] 58 mm/h [facility] Interpretation and review of laboratory results Abnormal [facility] STREP PNEUMONIAE ANTIGEN, UR INEon 10-11-2023 S. pneumoniae Ag Ql (U) Negative NEGATIVE BETA HCG, QUAL, BLOODon 09-21 HCG ( test) Ql Negative NEGATIVE BLOOD CULTUREon 10-10-2023 Bacteria identified Cx Nom (Bld) SPECIMEN DESCRIPTION PERIPHERAL BLOOD DRAW SPECIAL REQUESTS RT AC CULTURE NO GROWTH 5 DAYS REPORT STATUS 10/16/2023 * Result Note: FINAL * Normal [facility] Comment on above: Performed By: #### B LC #### Testing performed at [address] [address] Bacteria identified Cx Nom (Bld) SPECIMEN DESCRIPTION PERIPHERAL BLOOD DRAW SPECIAL REQUESTS LT H CULTURE NO GROWTH 5 DAYS REPORT STATUS 10/16/2023 * Result Note: FINAL * Normal [facility] Comment on above: Performed By: #### B LC ####Testing performed at [address] [place] [address] CBCon 10-10-2023 ABSOLUTE BAS 0.0 10*3/uL Normal 0.0-0.2 [facility] Comment on above: Performed By: #### C MPF, SHCGT, ACBC #### Testing performed at [address] [address] ABSOLUTE EOS 0.0 10*3/uL Normal 0.0-0.7 [facility] Comment on above: Performed By: #### C MPF, SHCGT, ACBC #### Testing performed at [address] [address] ABSOLUTE NEUTROPHIL COUNT 7.7 10*3/uL High 1.4-6.5 [facility] Comment on above: Performed By: #### C MPF, SHCGT, ACBC #### Testing performed at [address] [address] Basophils/100 WBC (Bld) 0.3 % Normal 0.0-2.0 [facility] Comment on above: Performed By: #### C MPF, SHCGT, ACBC #### Testing performed at [address] [place] [address] DTYPE AUTO DIFF Normal [facility] Comment on above: Performed By: #### C MPF, SHCGT, ACBC #### Testing performed at [address] [place] [address] Eosinophils/100 WBC (Bld) 0.1 % Normal 0.0-11.0 [facility] Comment on above: Performed By: #### C MPF, SHCGT, ACBC #### Testing performed at [address] [place] [address] Lymphocytes (Bld) [#/Vol] 1.2 10*3/uL Normal 1.2-3.4 [facility] Comment on above: Performed By: #### C MPF, SHCGT, ACBC #### Testing performed at [address] [address] Lymphocytes/100 WBC (Bld) 12.9 % Low 20.0-55.0 [facility] Comment on above: Performed By: #### C MPF, SHCTORIN, ACBC #### Testing performed at [address] [address] Monocytes (Bld) [#/Vol] 0.5 10*3/uL Normal 0.0-0.7 [facility] Comment on above: Performed By: #### C MPF, SHCGT, ACBC #### Testing performed at [address] [address] Monocytes/100 WBC (Bld) 5.0 % Normal 0.0-10.0 [facility] Comment on above: Performed By: #### C MPF, SHCGT, ACBC #### Testing performed at [address] [address] Neutrophils/100 WBC (Bld) 81.7 % High 37.0-75.0 [facility] Comment on above: Performed By: #### C MPF, SHCGT, ACBC #### Testing performed at [address] [place] [address] Erythrocyte distribution width (RBC) [Ratio] 14.7 % High 11.5-14.5 [facility] Comment on above: Performed By: #### C MPFED ACBC #### Testing performed at [address] [address] Hematocrit (Bld) [Volume fraction] 38.5 % Normal 36.0-48.0 [facility] Comment on above: Performed By: #### C MPFED ACBC #### Testing performed at [address] [address] Hemoglobin (Bld) [Mass/Vol] 12.9 g/dL Normal 12.0-16.0 [facility] Comment on above: Performed By: #### C MPFED ACBC #### Testing performed at [address] [address] MCH (RBC) [Entitic mass] 27.9 pg Normal 26.0-35.0 [facility] Comment on above: Performed By: #### C MPFED ACBC #### Testing performed at [address] [address] MCHC (RBC) [Mass/Vol] 33.6 g/dL Normal 27.0-37.0 [facility] Comment on above: Performed By: #### C MPFED ACBC #### Testing performed at [address] [address] MCV (RBC) [Entitic vol] 82.8 fL Normal 80.0-100.0 [facility] Comment on above: Performed By: #### C MPFED ACBC #### Testing performed at [address] [address] Platelet mean volume (Bld) [Entitic vol] 7.7 fL Normal 7.4-11.0 [facility] Comment on above: Performed By: #### C MPFED ACBC #### Testing performed at [address] [address] Platelets (Bld) [#/Vol] 264 10*3/uL Normal 130-400 [facility] Comment on above: Performed By: #### C MPFED ACBC #### Testing performed at [place] [address] [facility] [place] [address] RBC (Bld) [#/Vol] 4.64 10*6/uL Normal 4.0-5.4 [facility] Comment on above: Performed By: #### C CARLEY, ED, COLTON #### Testing performed at [address] [address] WBC (Bld) [#/Vol] 9.4 10*3/uL Normal 3.6-11.0 [facility] Comment on above: Performed By: #### C MELISSAF, ED, COLTON #### Testing performed at [address] [address] CBC, EDIF, PLATELETon 2023 ABSOLUTE BASOPHIL COUNT 0.0 10*3/uL 0.0 - 0.2 10*3/uL Basophils/100 WBC (Bld) 0.3 % 0.0 - 2.0 % Differential cell count method Nom (Bld) AUTO DIFF % Eosinophils (Bld) [#/Vol] 0.0 10*3/uL 0.0 - 0.7 10*3/uL Eosinophils/100 WBC (Bld) 0.1 % 0.0 - 11.0 % Erythrocyte distribution width (RBC) [Ratio] 14.7 % High 11.5 - 14.5 % Hematocrit (Bld) [Volume fraction] 38.5 % 36.0 - 48.0 % Hemoglobin (Bld) [Mass/Vol] 12.9 g/dL Interpretation and review of laboratory results Abnormal Lymphocytes (Bld) [#/Vol] 1.2 10*3/uL 1.2 - 3.4 10*3/uL Lymphocytes/100 WBC (Bld) 12.9 % Low 20.0 - 55.0 % MCH (RBC) [Entitic mass] 27.9 pg 26.0 - 35.0 PG MCHC (RBC) [Mass/Vol] 33.6 g/dL [facility] MCV (RBC) [Entitic vol] 82.8 fL [facility] Monocytes (Bld) [#/Vol] 0.5 10*3/uL 0.0 - 0.7 10*3/uL [facility] Monocytes/100 WBC (Bld) 5.0 % 0.0 - 10.0 % [facility] Neutrophils (Bld) [#/Vol] 7.7 10*3/uL High 1.4 - 6.5 10*3/uL [facility] Neutrophils/100 WBC (Bld) 81.7 % High 37.0 - 75.0 % [facility] Platelet mean volume (Bld) [Entitic vol] 7.7 fL Platelets (Bld) [#/Vol] 264 10*3/uL 130 - 400 10*3/uL RBC (Bld) [#/Vol] 4.64 10*6/uL 4.0 - 5.4 10*6/uL WBC (Bld) [#/Vol] 9.4 10*3/uL 3.6 - 11.0 10*3/uL [facility] CMP FASTINGon 10-10-2023 A:G RATIO 1.3 RATIO Normal [facility] Comment on above: Performed By: #### C MPF, SHARRIGT, ACBC ####Testing performed at [address] [address] ALBUMIN 4.0 G/dl Normal 3.5-5.0 [facility] Comment on above: Performed By: #### C MPF, SHCGT, ACBC ####Testing performed at [address] [address] ALP [Catalytic activity/Vol] 77 U/L Normal 38-126 [facility] Comment on above: Performed By: #### C MPF, SHCGT, ACBC ####Testing performed at [address] [address] ALT [Catalytic activity/Vol] 24 U/L Normal <35 [facility] Comment on above: Performed By: #### C MPF, SHCGT, ACBC ####Testing performed at [address] [address] AST [Catalytic activity/Vol] 24 U/L Normal 14-36 [facility] Comment on above: Performed By: #### C ED HOWE ACBC ####Testing performed at [address] [address] Bilirubin [Mass/Vol] 0.3 mg/dL Normal 0.2-1.3 [facility] Comment on above: Performed By: #### C ED HOWE ACBC ####Testing performed at [address] [address] Calcium [Mass/Vol] 8.6 mg/dL Normal 8.4-10.2 [facility] Comment on above: Performed By: #### C ED HOWE ACANTOLIN ####Testing performed at [address] [address] Chloride [Moles/Vol] 104 mmol/L Normal 98-107 [facility] Comment on above: Result Comment: Klaus baptiste note: Triglyceride levels of 600mg/dL or higher may positively bias chloride results by approximately 2.1 mmol Performed By: #### C ED HOWE ACBC ####Testing performed at [address] [address] CO2 [Moles/Vol] 22 mmol/L Normal 22-30 [facility] Comment on above: Performed By: #### C DE HOWE ACBC ####Testing performed at [address] [address] Creatinine [Mass/Vol] 0.58 mg/dL Low 0.70-1.20 [facility] Comment on above: Performed By: #### C ED HOWE ACBC ####Testing performed at [address] [address] EST. GFR, 157 ml/min/1.73sq.m [facility] Comment on above: Performed By: #### C ED HOWE ACBC ####Testing performed at [address] [address] EST. GFR,Non 130 ml/min/1.73sq.m [facility] Comment on above: Performed By: #### C ED HOWE ACBC ####Testing performed at [address] [address] GFR Information Average GFR for 30-3 9 years old = 107. Normal [facility] Comment on above: Result Comment: [employer] bentley Kidney disease, GFR = <60. Kidney failure, GFR = <15. The GFR estimate is not adjusted for extreme body surface area or acute process, nor has it been validated for women or ethnic groups other than and . Performed By: #### C MPFED, ACBC ####Testing performed at [place] [id number] Glucose [Mass/Vol] 126 mg/dL High 70-100 [facility] Comment on above: Result Comment: NORMAL <100 mg/dL PREDIABETES 101-126 mg/dL DIABETES 126 mg/dL or higher Performed By: #### C MPFED, ACBC ####Testing performed at [place] [id number] Potassium [Moles/Vol] 3.4 mmol/L Low 3.5-5.1 [facility] Comment on above: Performed By: #### C MPFED, ACBC ####Testing performed at [address] [address] Protein [Mass/Vol] 7.2 g/dL Normal 6.3-8.2 [facility] Comment on above: Performed By: #### C MPFED, ACBC ####Testing performed at [address] [address] Sodium [Moles/Vol] 134 mmol/L Low 137-145 [facility] Comment on above: Performed By: #### C MPF SHCTORIN, ACBC ####Testing performed at [address] [address] Urea nitrogen [Mass/Vol] 7 mg/dL Normal 7-20 [facility] Comment on above: Performed By: #### C MPF SHCGT, ACBC ####Testing performed at [address] [address] COMPREHENSIVE METABOLIC PANE Nagi 10-10-2023 Albumin [Mass/Vol] 4.0 G/dl 3.5 - 5.0 G/dl Albumin/Globulin [Mass ratio] 1.3 {ratio} RATIO ALP [Catalytic activity/Vol] 77 U/L ALT [Catalytic activity/Vol] 24 U/L NINF AST [Catalytic activity/Vol] 24 U/L Bilirubin [Mass/Vol] 0.3 mg/dL [facility] Calcium [Mass/Vol] 8.6 mg/dL Chloride [Moles/Vol] 104 mmol/L [facility] Comment on above: Please note: Triglyc eride levels of 600mg/dL or higher may positively bias chloride results by approximately 2.1 mmol CO2 [Moles/Vol] 22 mmol/L Creatinine [Mass/Vol] 0.58 mg/dL Low [facility] GFR COMMENT Average GFR for 30-3 9 years old = 107. Comment on above: Chronic Kidney disea se, GFR = <60. Kidney failure, GFR = <15. The GFR estimate is not adjusted for extreme body surface area or acute process, nor has it been validated for women or ethnic groups other than and . GFR/1.73 sq M.predicted among blacks MDRD (S/P/Bld) [Vol rate/Area] 157 mL/min/{1.73_m2} ml/min/1.73s q.m [facility] GFR/1.73 sq M.predicted among non-blacks MDRD (S/P/Bld) [Vol rate/Area] 130 mL/min/{1.73_m2} ml/min/1.73s q.m Glucose post fast [Mass/Vol] 126 mg/dL High Comment on above: NORMAL <100 mg/dL PREDIABETES 101-126 mg/dL DIABETES 126 mg/dL or higher Interpretation and review of laboratory results Abnormal Potassium [Moles/Vol] 3.4 mmol/L Low [facility] Protein [Mass/Vol] 7.2 g/dL Sodium [Moles/Vol] 134 mmol/L Low Urea nitrogen [Mass/Vol] 7 mg/dL [facility] HCG ( test) Qlon INFLUENZA A AND B, PCRon FLUAV and FLUBV Ag IF Nom (Unsp spec) Negative NEGATIVE FLUBV Ag IA Ql (Unsp spec) Negative NEGATIVE Comment on above: TESTING PERFORMED BY JADYN LACTATE, BLOODon 10-10-2023 Lactate [Moles/Vol] 2.0 mmol/L 0.7 - 2. 0 mmol/L [facility] LACTATE,BLOODon 10-10-2023 Lactate [Moles/Vol] 2.0 mmol/L Normal 0.7-2.0 [facility] Comment on above: Performed By: #### C OVID #### Testing performed at [place] [id number] NOVEL CORONAVIRUSon 10-10-19 24 NARRATIVE This test was perfor med using isothermal JADYN and has been approved as Emergency Use Authorization (EUA) for the qualitative detection [id number] nucleic acid. Normal [facility] Comment on above: Performed By: #### C OVID #### Testing performed at [place] [id number] SARS-CoV-2 (COVID-19) RNA JADYN+probe Ql (Unsp spec) Not detected Normal NOT DETECTED [facility] Comment on above: Result Comment: Nega tive [...] #### C OVID #### Testing performed at [place] [id number] NOVEL CORONAVIRUS LAB 1 - NA SOPHARYNGEALon 10-10-2023 NARRATIVE -1 This test was perfor med using isothermal JADYN and has been approved as Emergency Use Authorization (EUA) for the qualitative detection [id number]-[id number] nucleic acid. SARS-CoV-2 (COVID-19) RNA JADYN+probe Ql (Unsp spec) Not detected NOT DETECTED Comment on above: Negative results do not [...] patient is critically ill or clinically deteriorating. RAPID FLU Aon 10-10-2023 INFLUENZA A Negative Normal NEGATIVE [facility] Comment on above: Performed By: #### R FLUAB ####Testing performed at [place] [id number] INFLUENZA B Negative Normal NEGATIVE [facility] Comment on above: Result Comment: TEST ING PERFORMED BY JADYN Performed By: #### R FLUAB ####Testing performed at [place] [id number] SERUM HCG QUALon 10-10-2023 SERUM BETA HCG,QUAL Negative Normal NEGATIVE [facility] Comment on above: Performed By: #### C MPF, SHCGT, ACBC ####Testing performed at [place] [id number] XR CHEST PA AND LATERAL 2 EWSon [...] the lung bases. 2. Moderate cardiomegaly. Normal [facility] XR Chest PA and Lateralon IMPRESSION: 1. [...] in the lung bases. 2. Moderate cardiomegaly. Radiology Study observation (narrative) XR Chest PA and LateralOrder ed By: Mansoor Ambrose on 10-10-2023 Work Phone: Basic metabolic 2000 panelon 01-28-2023 Anion gap [Moles/Vol] 13 mmol/L Normal 10-20 [facility] Comment on above: Performed By: #### 2 4321-2 #### DEION MASCORRO ([id number]) [facility] ([facility]) [facility] [place] [address] Calcium [Mass/Vol] 8.8 mg/dL Normal 8.6-10.3 [facility] Comment on above: Performed By: #### 2 4321-2 #### DEION MASCORRO ([id number]) [facility] ([facility]) [facility] [place] [address] Chloride [Moles/Vol] 104 mmol/L Normal 98-107 [facility] Comment on above: Performed By: #### 2 4321-2 #### DEION MASCORRO ([id number]) [facility] ([facility]) [address] [place] [address] CO2 [Moles/Vol] 26 mmol/L Normal 21-32 [facility] Comment on above: Performed By: #### 2 4321-2 #### DEION MASCORRO ([id number]) [facility] ([facility]) [address] [place] [address] Creatinine [Mass/Vol] 0.58 mg/dL Normal 0.50-1.05 [facility] Comment on above: Performed By: #### 2 4321-2 #### DEION MASCORRO ([id number]) [facility] ([facility]) [address] [place] [address]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 Glucose Ql (U) Negative [facility] Laboratory - Urinalysison Protein Ql (U) Negative [facility] Laboratory - Drug toxicology on 01-02-2022 Amphetamines Ql (U) Negative <1000 ng/mL [facility] Work Phone: Benzodiazepines Ql (U) Negative < 200 ng/mL [facility] Work Phone: Cannabinoids Screen Ql (U) Negative < 50 ng/mL [facility] Work Phone: Cocaine Ql (U) Negative < 300 ng/mL [facility] Work Phone: Opiates Ql (U) Negative < 300 ng/mL [facility] Work Phone: No Panel Informationon 01-02 MDMA (Ecstasy) Screen Negative < 500 ng/mL [facility] Work Phone: Urine Barbiturates Screen Negative < 200 ng/mL [facility] Work Phone: Urine Drug Screen Comment [facility] Work Phone: Comment on above: CONFIRMATORY [...] Urine Methadone Screen Negative < 300 ng/mL [facility] Work Phone: Urine phencyclidine (PCP) de tectionon 01-02-2022 Phencyclidine Ql (U) Negative < 25 ng/mL [facility] Work Phone: Absolute lymphocyte counton 12-12-2021 Lymphocytes Auto (Unsp spec) [#/Vol] 3.07 10*3/uL 0.83-4.[address] [facility] Work Phone: Basophil percentageon 2021 Basophils/100 WBC (Bld) 0.4 % 0-[address] [facility] Work Phone: Eosinophils/100 WBC (Bld) 2.0 % 0-[address] [facility] Work Phone: Neutrophils (Bld) [#/Vol] 7.4 10*3/uL 2.0-7.[address] [facility] Work Phone: Neutrophils/100 WBC (Bld) 65.3 % 47-[address] [facility] Work Phone: WBC (Bld) [#/Vol] 11.3 10*3/uL 4.4-11.0 [facility] Work Phone: Blood erythrocytes count (nu mber/volume)on 12-12-2021 RBC (Bld) [#/Vol] 4.96 10*6/uL 4.2-5.4 [facility] Work Phone: Blood hemoglobin measurement (mass/volume)on 12-12-2021 Hemoglobin (Bld) [Mass/Vol] 12.9 g/dL 12.0-15.[address] [facility] Work Phone: Blood lymphocytes/100 leukoc yteson 12-12-2021 Lymphocytes/100 WBC (Bld) 27.1 % 19-[address] [facility] Work Phone: Blood monocytes/100 leukocyt eson 12-12-2021 Monocytes/100 WBC (Bld) 4.4 % 0-[address] [facility] Work Phone: Blood platelet mean volumeon 12-12-2021 Platelet mean volume (Bld) [Entitic vol] 10.0 fL 6.2-12.[address] [facility] Work Phone: Determination of erythrocyte mean corpuscular volume (MCV)on 12-12-2021 MCV (RBC) [Entitic vol] 82.7 fL 81-[address] [facility] Work Phone: Gestational diabetes screen 1-hour screen with 50g oral glucose loadon 12-12-2021 Glucose 1 Hr post 50 g glucose PO [Mass/Vol] 96 mg/dL 70-[address] [facility] Work Phone: HIV 1 and HIV-2 antibody ass ay with HIV-1 p24 antigen detectionon 12-12-2021 HIV 1+2 Ab+HIV1 p24 Ag IA Ql Non-Reactive Nonreactive [facility] Work Phone: Hematocrit Auto (Bld) [Volum e fraction]on 12-12-2021 Hematocrit (Bld) [Volume fraction] 41.0 % 37-[address] [facility] Work Phone: Laboratory - Hematology and Cell countson 12-12-2021 Erythrocyte distribution width (RBC) [Entitic vol] 44.8 fL 35.1-43.[address] [facility] Work Phone: Erythrocyte distribution width (RBC) [Ratio] 14.9 % 11.6-14.[address] [facility] Work Phone: Immature granulocytes/100 WBC (Bld) 0.800 % 0.0-0.[address] [facility] Work Phone: Comment on above: IG% - Immature Granu locytes (promyelocytes, myelocytes and metamyelocytes) > 1% indicates that a LEFT SHIFT is Present. MCH (RBC) [Entitic mass] 26.0 pg 27.0-32.[address] [facility] Work Phone: Nucleated RBC/100 WBC (Bld) [Ratio] 0 % 0-[address] [facility] Work Phone: MCHC Auto (RBC) [Mass/Vol]on 12-12-2021 MCHC (RBC) [Mass/Vol] 31.5 g/dL 32-36 [facility] Work Phone: No Panel Informationon 12-12 Miscellaneous Test Comment MAILED SPECIMEN [facility] Work Phone: Hepatitis B Surface Antigen Non-Reactive Nonreactive [facility] Work Phone: Hepatitis C Antibody Non-Reactive Nonreactive [facility] Work Phone: Comment on above: Non Reactive: < 0.8 Equivocal: >/= 0.8 to < 1.0 Reactive: >/= 1.0The [facility] recommends that a reactive/equivocal HCV antibody result be followed up by the HCV Nucleic Acid Amplificationtest (323086) Herpes Simplex Virus I IgG Antibody 5.19 index 0.00-0.[address] [facility] Work Phone: Comment on above: Negative <0.91 Equiv ocal 0.91 - 1.09 Positive >1.09 Note: Negative indicates no antibodies detected to HSV-1. Equivocal may suggest early infection. If clinically appropriate, retest at later date. Positive indicates antibodies detected to HSV-1. Rubella IgG Antibody Reactive Nonreactive [facility] Work Phone: Comment on above: Antibody Results Int erpretation of Immune Status Non Reactive Presumed Non-Immune Equivocal Equivocal Reactive Presumed Immune Platelets bldon 12-12-2021 Platelets (Bld) [#/Vol] 351 10*3/uL 150-[address] [facility] Work Phone: Serum Treponema species anti body detectionon 12-12-2021 Treponema sp Ab Ql (S) Non-Reactive [facility] Work Phone: Serum herpes simplex virus 2 antibody assay by immunoassay (units/volume)on 12-12-2021 HSV 2 Ab IA Qn (S) < 0.91 index 0.00-0.90 [facility] Work Phone: Comment on above: Negative <0.91 Equiv ocal 0.91 - 1.09 Positive >1.09 Note: Negative indicates no HSV-2 antibodies detected. Positive indicates HSV-2 antibodies detected. Equivocal and low positive HSV-2 screens (Index 0.91-5.00) may be false positive and are reflexed to supplemental testing in accordance with CDC guidelines.Performed at: [address], [place], [place] [id number] Director: Pancho Ray PhD, Phone: [phone] Cervical or vagninal specime n microscopic examination by cytology stain (reported ason 12-06-2021 Cytology report Cyto stain Doc (Cvx/Vag) Comment . [facility] Work Phone: Comment on above: The [...] rRNA JADYN+probe Ql (Unsp spec) Negative Negative [facility] Work Phone: Laboratory - Cytologyon 11-22 Air/Ocean Export Clerk Cyto stain Nom (Cvx/Vag) [ID] Comment . [facility] Work Phone: Comment on above: Yuliya Garcia, Cytote chnologist (ASCP) Laboratory - Microbiology an d Antimicrobial susceptibilityon 12-06-2021 N. gonorrhoeae DNA JADYN+probe Ql (Unsp spec) Negative Negative [facility] Work Phone: Comment on above: Performed at: =[address] [id number] Director: Lizz Franz MD, Phone: [phone] Laboratory - Miscellaneous t estson 12-06-2021 Service comment (Unsp spec) [Interp] Comment . [facility] Work Phone: Comment on above: This liquid based Th inPrep(R) pap test was screened withthe use of an image guided system. Service comment (Unsp spec) [Interp] . . [facility] Work Phone: No Panel Informationon 12-06 Human Papillomavirus Screen Comment . [facility] Work Phone: Comment on above: The HPV DNA reflex c naina were not met with this specimenresult therefore, no HPV testing was performed.Performed at: - [address] [place] [id number] Director: Lizz Franz MD, Phone: [phone] Pathology report final diagnosis Narrative Comment . [facility] Work Phone: Comment on above: NEGATIVE FOR INTRAEP ITHELIAL LESION OR MALIGNANCY.CELLULAR CHANGES ASSOCIATED WITH INFLAMMATION ARE PRESENT. HEPATITIS B SURFACE AGon HEP.B SURFACE AG Non-Reactive Normal NONREACTIVE [facility] Comment on above: Result Comment: Biot in interference may cause falsely decreased results. Patients taking a Biotin dose of up to 5 mg/day should refrain from taking Biotin for 24 hours before sample collection. Providers may contact their local laboratory for further information. Performed By: #### H BSAG #### [facility] [address] [place] [address] HIV 1/2 ANTIGEN/ANTIBODY SCR EEN WITH REFLEX TO CONFIRMATIONon 11-22-2021 HIV 1/2 AG/AB SCREEN Non-Reactive Normal NONREACTIVE [facility] Comment on above: Result Comment: HIV [...] load). Performed By: #### H IV #### [facility] [address] [place] [address] RUBELLA IGG ABon 11-22-2021 RUBELLA IGG AB Negative Normal [facility] Comment on above: Result Comment: INTE RPRETATIVE [...] assays. Performed By: #### R UBIG #### [facility] [address] [place] [address] SYPHILIS SCREENING WITH REFL EXon 11-22-2021 SYPHILIS TOTAL AB Non-Reactive Normal NONREACTIVE [facility] Comment on above: Result Comment: No s ignificant level of Treponema pallidum antibody detected. Repeat testing in 2 to 4 weeks may be considered if early infection or incubating syphilis infection is suspected. Performed By: #### S YPHR #### [facility] [address] [place], [place] [id number] TYPE + SCREENon 11-22-2021 ABO TYPE O Normal [facility] Comment on above: Performed By: #### T +S #### [facility] [address] [place] [address] RH TYPE Positive Normal [facility] Comment on above: Performed By: #### T +S #### [facility] [address] [place] [address] CBC AND DIFFERENTIALon 11-21 Basophils (Bld) [#/Vol] 0.00 10*3/uL Normal 0.00 - 0.10 [facility] Comment on above: Performed By: #### C BCDF #### [address] [address] Basophils/100 WBC (Bld) 0.4 % Normal 0.0 - 2.0 [facility] Comment on above: Performed By: #### C BCDF #### [address] [address] Eosinophils (Bld) [#/Vol] 0.30 10*3/uL Normal 0.00 - 0.70 [facility] Comment on above: Performed By: #### C BCDF #### [address] [address] Eosinophils/100 WBC (Bld) 2.4 % Normal 0.0 - 6.0 [facility] Comment on above: Performed By: #### C BCDF #### [address] [address] Erythrocyte distribution width (RBC) [Ratio] 14.5 % Normal 11.5 - 14.5 [facility] Comment on above: Performed By: #### C BCDF #### [address] [address] Hematocrit (Bld) [Volume fraction] 39.5 % Normal 36.0 - 46.0 [facility] Comment on above: Performed By: #### C BCDF #### [address] [address] Hemoglobin (Bld) [Mass/Vol] 12.8 g/dL Normal 12.0 - 16.0 [facility] Comment on above: Performed By: #### C BCDF #### [address] [address] Lymphocytes (Bld) [#/Vol] 3.30 10*3/uL Normal 1.20 - 4.80 [facility] Comment on above: Performed By: #### C BCDF #### [address] [address] Lymphocytes/100 WBC (Bld) 24.7 % Normal 13.0 - 44.0 [facility] Comment on above: Performed By: #### C BCDF #### [address] [address] MCHC (RBC) [Mass/Vol] 32.5 g/dL Normal 32.0 - 36.0 [facility] Comment on above: Performed By: #### C BCDF #### [address] [address] MCV (RBC) [Entitic vol] 80 fL Normal 80 - 100 [facility] Comment on above: Performed By: #### C BCDF #### [address] [address] Monocytes (Bld) [#/Vol] 0.90 10*3/uL Normal 0.10 - 1.00 [facility] Comment on above: Performed By: #### C BCDF #### [address] [address] Monocytes/100 WBC (Bld) 6.5 % Normal 2.0 - 10.0 [facility] Comment on above: Performed By: #### C BCDF #### [address] [address] Neutrophils (Bld) [#/Vol] 9.00 10*3/uL High 1.20 - 7.70 [facility] Comment on above: Result Comment: Perc ent differential counts (%) should be interpreted in the context of the absolute cell counts (cells/L). Performed By: #### C BCDF #### [address] [address] Neutrophils/100 WBC (Bld) 66.0 % Normal 40.0 - 80.0 [facility] Comment on above: Performed By: #### C BCDF #### [address] [address] Platelets (Bld) [#/Vol] 366 10*3/uL Normal 150 - 450 [facility] Comment on above: Performed By: #### C BCDF #### [address] [address] RBC 4.94 x10E12/L Normal 4.00 - 5.20 [facility] Comment on above: Performed By: #### C BCDF #### [address] [address] WBC (Bld) [#/Vol] 13.6 10*3/uL High 4.4 - 11.3 [facility] Comment on above: Performed By: #### C BCDF #### [address] [address] Complete Blood Count + Diffe jennifer 11-21-2021 Basophils/100 WBC (Bld) 0.4 % 0.0 - 2.0 [employer] Work Phone: Erythrocyte distribution width (RBC) [Ratio] 14.5 % See Below [employer] Work Phone: Comment on above: Reference Range: 11. 5 - 14.5 Hematocrit (Bld) [Volume fraction] 39.5 % See Below [employer] Work Phone: Comment on above: Reference Range: 36. 0 - 46.0 Hemoglobin (Bld) [Mass/Vol] 12.8 g/dL See Below [employer] Work Phone: Comment on above: Reference Range: 12. 0 - 16.0 Lymphocytes/100 WBC (Bld) 24.7 % See Below [employer] [facility] [employer] Work Phone: [phone] Comment on above: Reference Range: 13. 0 - 44.0 MCHC (RBC) [Mass/Vol] 32.5 g/dL See Below [facility] hospital[facility] [employer] Work Phone: Comment on above: Reference Range: 32. 0 - 36.0 MCV (RBC) [Entitic vol] 80 fL 80 - 100 [employer] Work Phone: [phone] Monocytes/100 WBC (Bld) 6.5 % 2.0 - 10.0 [employer] [facility] [employer] Work Phone: [phone] Neutrophils/100 WBC (Bld) 66.0 % See Below [employer] [facility] [employer] Work Phone: Comment on above: Reference Range: 40. 0 - 80.0 Platelets (Bld) [#/Vol] 366 10*3/uL 150 - 450 [employer] [facility] [employer] Work Phone: [phone] RBC (Bld) [#/Vol] 4.94 {x10E12/L} See Below [facility] centerInvestingNote [employer] Work Phone: [phone] Comment on above: Reference Range: 4.0 0 - 5.20 WBC (Bld) [#/Vol] 13.6 10*3/uL above high threshold 4.4 - 11.3 [employer] [facility] [employer] Work Phone: [phone] Complete Blood Count + Differential 0.00 {x10E9/L} See Below [facility] HealthcareLatina Researchers NetworkMelissa [place] [address] [employer] Work Phone: Comment on above: Reference Range: 0.0 0 - 0.10 Complete Blood Count + Differential 0.30 {x10E9/L} See Below [facility] HealthcareLineRate SystemsEast [facility] [employer] Work Phone: Comment on above: Reference Range: 0.0 0 - 0.70 Complete Blood Count + Differential 0.90 {x10E9/L} See Below [facility] HealthcareLineRate SystemsRobert [place] [address] [employer] Work Phone: Comment on above: Reference Range: 0.1 0 - 1.00 Complete Blood Count + Differential 3.30 {x10E9/L} See Below [facility] HealthcareLineRate SystemsRobert [place] [address] [employer] Work Phone: Comment on above: Reference Range: 1.2 0 - 4.80 Complete Blood Count + Differential 9.00 {x10E9/L} above high threshold See Below [facility] HealthcareLineRate SystemsRobert [place] [address] [employer] Work Phone: Comment on above: Reference Range: 1.2 0 - 7.70 Percent differential counts (%) should be interpreted in the context of the absolute cell counts (cells/L). Complete Blood Count + Differential 2.4 % 0.0 - 6.0 [place] [address] [employer] Work Phone: HEPATITIS B SURFACE AGon Lab Specimen Source Normal [facility] Comment on above: Performed By: #### H BSAG #### [facility] [address] [place] [address] Performed By: #### H IV #### [facility] [address] [place] [address] HIV 1/2 ANTIGEN/ANTIBODY SCR EEN WITH REFLEX TO CONFIRMATIONon 11-21-2021 HIV 1+2 Ab Qn (S) Non-Reactive See Below [facility] HospitalTibion Bionic TechnologiesRobert [place] [address] [employer] Work Phone: Comment on above: SOURCE: Reference Ra nge: NONREACTIVE HIV Ag/Ab screen is performed using the Siemens Dayak HIV Ag/Ab Combo assay which detects the presence of HIV p24 antigen as well as antibodies to HIV-1 (Group M and O) and HIV-2..No laboratory evidence of HIV infection. If acute HIV infection is suspected, consider testing for HIV RNA by PCR (viral load). Hepatitis B Surface Antigeno n 11-21-2021 Hepatitis B Surface Antigen Non-Reactive See Below [facility] Work Phone: Comment on above: SOURCE: Reference Ra nge: NONREACTIVE Biotin interference may cause falsely decreased results. Patients taking a Biotin dose of up to 5 mg/day should refrain from taking Biotin for 24 hours before sample collection. Providers may contact their local laboratory for further information. IO HCG, Urine Test on 11-21-2021 HCG ( test) Ql (U) Positive [facility] Work Phone: LMPon 11-21-2021 Last menstrual period start date [id number] [facility] [employer] Work Phone: Laboratory - Blood bankon ABO group Nom (Bld) O Women [facility] [employer] Work Phone: Blood group antibody screen Ql Negative [facility] [employer] Work Phone: Rh immune globulin screen (Bld) [Interp] Positive [facility] [employer] Work Phone: Laboratory - Chemistry and C hemistry - challengeon 11-21-2021 TSH Qn 1.46 m[IU]/L See Below [facility] HealthcareLatina Researchers NetworkCameron Regional Medical CenterSampleOn Inc Work Phone: Comment on above: Reference Range: 0.4 4 - 3.98 TSH testing is performed using different testing methodology at [facility] than at other [facility]. Direct result comparisons should only be made within the same method. ELECTRICAL JOURNEYMAN - Office Visiton 10-24 ELECTRICAL JOURNEYMAN - Office Visit Diagnoses/Problems Assessed 8 weeks [...] Sexually active Allergies Medication Penicillins Recorded By: vIania Culver; 12/11/2016 11:01:52 AM Tdap Recorded By: Shweta Walker; 11/21/2021 1:23:12 PM Current Meds Medication NameInstruction busPIRone HCl - 10 MG Oral Tablet Escitalopram Oxalate 20 MG Oral Tablet lamoTRIgine 100 MG Oral Tablet lamoTRIgine 25 MG Oral Tablet Vitamins TABS Zyrtec TABS Vitals Vital Signs Recorded: 21Nov2021 01:23PM Rqdttmgg730 Oszqwjwio61 Height5 ft 4 in Ucfkkp818 lb BMI Hjxbuuxhus03.23 kg/m2 BSA Calculated2.14 [id number] Physical Exam Constitutional: Healthy-appearing in no physical [...] 11-21 Rubella virus IgG IA Ql Negative [employer] Phone: Comment on above: INTERPRETATIVE COMME NT [...] IgG+IgM IA Ql (S) Non-Reactive See Below [facility] [address] Work Phone: Comment on above: Reference Range: NON REACTIVENo significant level of Treponema pallidum antibody detected. Repeat testing in 2 to 4 weeks may be considered if early infection or incubating syphilis infection is suspected. TSH WITH REFLEX TO FREE T4 I F ABNORMALon 11-21-2021 TSH Qn 1.46 m[IU]/L Normal 0.44 - 3.98 [facility] Comment on above: Result Comment: TSH testing is performed using different testing methodology at [facility] than at other [facility]. Direct result comparisons should only be made within the same method. Performed By: #### T HYDS #### [place] [address] ANES Lucho 12-21-2018 ANES POST HNO ID: [id number] Author: Mayank Hall Service: Anesthesiology Author Type: [...] 21, 2018 TIME: 10:24 AM PAGER/CONTACT #: [phone] [facility] ANES POST HNO ID: [id number] Author: Inocencia Fall Service: Anesthesiology Author Type: [...] 21, 2018 TIME: 10:36 AM PAGER/CONTACT #: [phone] [facility] ANES PREOPon 12-21-2018 ANES PREOP HNO ID: [id number] Author: Inocencia Fall Service: Anesthesiology Author Type: [...] disorder (HCC) - Childhood asthma - Endometriosis ACCOUNT DIRECTOR: [facility] - GERD (gastroesophageal reflux disease) - [...] SIGNATURE: Inocencia Fall MD PATIENT NAME: Anai eWbber DATE: December 21, 2018 TIME: 7:17 AM CSN: [id number] [facility] BRIEF OP NOTon 12-21-2018 BRIEF OP NOT HNO ID: [id number] Author: Jessica Reardon DPM Service: Podiatry Author Type: Resident Type: Brief Op Note Filed: 12/21/2018 8:28 AM Note Text: -------- Attestation signed by Sparkle Dave at 12/22/2018 9:35 PM I was present and agree with resident brief op note Sparkle Dave DPM -------- BRIEF OP NOTE LOG ID: [id number] Surgery/Procedure Date: 12/21/2018 Incision/Procedure Start Time: 7:59 AM Incision Close/Procedure End Time: 8:22 AM Surgeon(s)/Proceduralist (s) and Sales Operations Coordinator(s): Surgeon(s) and Role: * Sparkle Dave - [...] 2018 TIME: 8:25 AM PAGER/CONTACT #: Normal [facility] HISTORY PHYSICALon 9 HISTORY PHYSICAL HNO ID: [id number] Author: Sparkle Dave Service: Podiatry Author Type: [...] disorder (HCC) - Childhood asthma - Endometriosis ACCOUNT DIRECTOR: [facility] - GERD (gastroesophageal reflux disease) - [...] Prophylaxis/Anticoagulan ts 12/21/18 0700 pneumatic compression stockings (mn,ut) SIGNATURE: Sparkle Dave DPM PATIENT NAME: Anai Webber DATE: December 21, 2018 TIME: 7:02 AM PAGER/CONTACT #: [phone] [facility] OPERATIVE NOon 12-21-2018 OPERATIVE NO HNO ID: [id number] Author: Sparkle Dave Service: Podiatry Author Type: Physician Type: Operative Report Filed: 12/22/2018 9:32 PM Note Text: OPERATIVE/PROCEDURE REPORT LOG ID: [id number] SURGERY/PROCEDURE DATE: 12/21/2018 INCISION/PROCEDURE START TIME: 7:59 AM INCISION CLOSE/PROCEDURE END TIME: 8:22 AM SURGEON(S)/PROCEDURALIST (S) AND OPERATIONS SUPPORT SPECIALIST(S): Surgeon(s) and Role: * Sparkle Dave - Primary * Jessica Reardon DPM - Resident - Assisting Physician Sales Operations Coordinator: Yg Ernandez (Pa) (Jeremi) Barrie SURGERY/PROCEDURE(S): co2 laser of benign skin lesion, left foot ANESTHESIA: General SURGERY/PROCEDURE DETAILS: patient is a 23 year old female who has chronic skin lesion to left heel. This has been present for long duration. She has seen a software verification engineer who was treating the lesion weekly with debridement and salicyclic acid. Patient states she was seeing the software verification engineer weekly for over 8 weeks but no [...] 21, 2018 TIME: 11:05 AM PAGER/CONTACT #: [facility] PLAN OF CAREon 12-21-2018 PLAN OF CARE HNO ID: [id number] Author: Abbey Dotson ([email or web address]) Service: Pharmacy Author Type: ? Type: Plan of Care Filed: 12/21/2018 9:38 AM Note Text: COMPLIANCE REPRESENTATIVE BEDSIDE DELIVERY SURVEY 1. Patient to use [facility] Bedside Delivery - YES Insurance Information as follows: 2. Insurance card on file - YES 3. Credit card for payment - YES PHARMACY BEDSIDE DELIVERY SERVICE Patient Name: Anai Webber The marked outpatient medications were Filled at: [facility] and delivered to the patient's bedside to pharmacy product picker Medication List START taking these medications [...] (7) Dspk Commonly known as: LaMICtal Starter ([place]) Kit Take 25 mg by mouth once [...] or your Primary Care Provider. Abbey Dotson ([email or web address]) PAGER: [phone] December 21, 2018 9:37 AM [facility] PROGRESSon 12-21-2018 PROGRESS HNO ID: [id number] Author: Jessica Reardon DPM Service: Podiatry Author [...] December 21, 2018 TIME: 6:57 AM PAGER: [facility] PT EDon 12-21-2018 PT ED HNO ID: [id number] Author: Matthew ValentinoRn) JOANIE Anthony Service: Nursing [...] Signed By: Matthew Anthony RN In Department: [facility] SURGERY [facility] PT ED HNO ID: [id number] Author: Matthew (Rn) JOANIE Anthony Service: Nursing [...] Signed By: Matthew Anthony RN In Department: [facility] SURGERY [facility] SURGICAL PATHOLOGYon 019 SURGICAL PATHOLOGY Specimen originated from [facility] Specimen #: [id number] Submitting Physician: SPARKLE DAVE DPM __ FINAL [...] in one cassette. Gross examination performed at [facility], [address] [place] [address] 12/21/2018 5:09:51 PM Date of Report: 12/23/2018 Date of Procedure: 12/21/2018 Date of Receipt: 12/21/2018 Submitted by: SPARKLE DAVE DPM Location: [facility] Diagnostic interpretation performed at [facility], [address] [place] [address]. [place] Number: [id number] [facility] NURSING PROGon 12-15-2018 NURSING PROG HNO ID: [id number] Author: Gwendolyn Lynch) JOANIE Tran Service: ? [...] Tran RN December 15, 2018 12:34 PM [facility] HOSPon 12-03-2018 HOSP Patient:Anai Webber MRN: [...] 46.0 36.0 Progress Notes (PSYL ADULT CC [facility]): SAMMY Dillon 12/17/2018 8:58 AM Signed Behavioral Health Social Work Progress Note Encounter Type: Update [facility] contacted Pt at [phone] for f/u [facility] was calling to clarify Pt's insurance and to assist Pt with resources. Pt stated she will be losing her [employer] insurance in 05-13 Pt stated she [facility] and has an appt for intake on 01-06-19 at 3:30pm Pt is concerned about the amount of time she will need to take off work, she will not be able to see a counselor and a psychiatrist on a monthly basis. -[facility] encouraged Pt to address this with the [facility] when she attends her appt -[facility] stated it is his understanding that when a Pt is stabilized with their symptoms appts with the psychiatrist can be spaced further apart, allowing for Pt to see a counselor. -Pt stated she previously received services at [facility] and they required Pt be seen by psychiatrist on monthly basis -[facility] stated each agency/provider have different criteria therefore encouraged Pt to discuss her concerns at the first visit. -Pt agreed Pt was reminded of the crisis # [phone] Pt was reminded of [facility]'s contact # [phone]. Pt declined [facility] f/u with her, I'm all set [facility] reminded Pt if she has any behavioral health needs in the future to please contact [facility] Pt voiced understanding. No further contact is indicated at this time. Pt has an appt at the [facility] on 01-06-19. Pt has [facility]'s contact info. LAUREN Dillon December 17, 2018 Hamzah Angela MD 12/17/2018 8:59 AM Signed Agree thanks. Progress Notes ([facility]): Melva Rodarte LPN 12/16/2018 8:14 AM [...] before bedtime or any changes. Patient uses [facility] for her pharmacy. Please advise Hamzah Angela [...] again from PCP notes. Normal [facility] Culture, urine Bacteria identified Cx Nom (U) Presumptive Lactobacillus sp. [facility] Work Phone: Vital Signs Date Time Vital Sign Value Performing Clinician Facility 09-09-2024 14:13-0400 Body height 162.56 cm No Primary Care Physician [facility] 09-09-2024 14:13-0400 Body mass index (BMI) [Ratio] 48.7 kg/m2 No Primary Care Physician [facility] 09-09-2024 14:13-0400 Body weight 128.82 kg No Primary Care Physician [facility] 09-09-2024 14:13-0400 Diastolic blood pressure 82 mm[Hg] No Primary Care Physician [facility] 09-09-2024 14:13-0400 Systolic blood pressure 126 mm[Hg] No Primary Care Physician [facility] 09-02-2024 11:25-0400 Body height 162.56 cm No Primary Care Physician [facility] 09-02-2024 11:25-0400 Body mass index (BMI) [Ratio] 48.4 kg/m2 No Primary Care Physician [facility] 09-02-2024 11:25-0400 Body weight 128.02 kg No Primary Care Physician [facility] 09-02-2024 11:25-0400 Diastolic blood pressure 84 mm[Hg] No Primary Care Physician [facility] 09-02-2024 11:25-0400 Systolic blood pressure 120 mm[Hg] No Primary Care Physician [facility] 08-26-2024 13:15-0400 Body height 162.56 cm No Primary Care Physician [facility] 08-26-2024 13:14-0400 Body mass index (BMI) [Ratio] 48.2 kg/m2 No Primary Care Physician [facility] 08-26-2024 13:14-0400 Body weight 127.57 kg No Primary Care Physician [facility] 08-26-2024 13:14-0400 Diastolic blood pressure 80 mm[Hg] No Primary Care Physician [facility] 08-26-2024 13:14-0400 Systolic blood pressure 119 mm[Hg] No Primary Care Physician [facility] 08-11-2024 13:27-0400 Diastolic blood pressure 89 mm[Hg] No Primary Care Physician [facility] 08-11-2024 13:27-0400 Heart rate 100 /min No Primary Care Physician [facility] 08-11-2024 13:27-0400 Systolic blood pressure 128 mm[Hg] No Primary Care Physician [facility] 08-11-2024 13:01-0400 Body height 162.56 cm No Primary Care Physician [facility] 08-11-2024 13:01-0400 Body mass index (BMI) [Ratio] 47.5 kg/m2 No Primary Care Physician [facility] 08-11-2024 13:01-0400 Body weight 125.64 kg No Primary Care Physician [facility] 08-11-2024 12:55-0400 Body temperature 98.1 [degF] No Primary Care Physician [facility] 08-11-2024 12:55-0400 Respiratory rate 13 /min No Primary Care Physician [facility] 08-11-2024 12:55-0400 SaO2% (BldA) [Mass fraction] 100 % No Primary Care Physician [facility] 08-11-2024 12:54-0400 SaO2% (BldA) [Mass fraction] 96 % No Primary Care Physician [facility] 08-11-2024 10:10-0400 Body height 162.56 cm No Primary Care Physician [facility] 08-11-2024 10:10-0400 Body mass index (BMI) [Ratio] 47.6 kg/m2 No Primary Care Physician [facility] 08-11-2024 10:10-0400 Body weight 125.87 kg No Primary Care Physician [facility] 08-11-2024 10:10-0400 Diastolic blood pressure 87 mm[Hg] No Primary Care Physician [facility] 08-11-2024 10:10-0400 Systolic blood pressure 121 mm[Hg] No Primary Care Physician [facility] 07-27-2024 13:40-0400 Body height 162.56 cm No Primary Care Physician [facility] 07-27-2024 13:40-0400 Body mass index (BMI) [Ratio] 47.7 kg/m2 No Primary Care Physician [facility] 07-27-2024 13:40-0400 Body weight 126.15 kg No Primary Care Physician [facility] 07-27-2024 13:40-0400 Diastolic blood pressure 86 mm[Hg] No Primary Care Physician [facility] 07-27-2024 13:40-0400 Systolic blood pressure 126 mm[Hg] No Primary Care Physician [facility] 07-13-2024 14:55-0400 Body mass index (BMI) [Ratio] 47.2 kg/m2 No Primary Care Physician [facility] 07-13-2024 14:55-0400 Body weight 124.9 kg No Primary Care Physician [facility] 07-13-2024 14:55-0400 Diastolic blood pressure 76 mm[Hg] No Primary Care Physician [facility] 07-13-2024 14:55-0400 Systolic blood pressure 117 mm[Hg] No Primary Care Physician [facility] 06-30-2024 14:36-0400 Body height 162.56 cm No Primary Care Physician [facility] 06-30-2024 14:31-0400 Body mass index (BMI) [Ratio] 46.7 kg/m2 No Primary Care Physician [facility] 06-30-2024 14:31-0400 Body weight 123.54 kg No Primary Care Physician [facility] 06-30-2024 14:31-0400 Diastolic blood pressure 86 mm[Hg] No Primary Care Physician [facility] 06-30-2024 14:31-0400 Systolic blood pressure 124 mm[Hg] No Primary Care Physician [facility] 06-21-2024 21:15-0400 Body height 162.56 cm No Primary Care Physician [facility] 06-21-2024 21:15-0400 Body mass index (BMI) [Ratio] 46.6 kg/m2 No Primary Care Physician [facility] 06-21-2024 21:15-0400 Body weight 123.3 kg No Primary Care Physician [facility] 06-21-2024 21:00-0400 Body temperature 97.8 [degF] No Primary Care Physician [facility] 06-21-2024 21:00-0400 Respiratory rate 16 /min No Primary Care Physician [facility] 06-21-2024 20:59-0400 Diastolic blood pressure 64 mm[Hg] No Primary Care Physician [facility] 06-21-2024 20:59-0400 Heart rate 90 /min No Primary Care Physician [facility] 06-21-2024 20:59-0400 SaO2% (BldA) [Mass fraction] 97 % No Primary Care Physician [facility] 06-21-2024 20:59-0400 Systolic blood pressure 119 mm[Hg] No Primary Care Physician [facility] 06-16-2024 14:12-0400 Body mass index (BMI) [Ratio] 46.7 kg/m2 No Primary Care Physician [facility] 06-16-2024 14:12-0400 Body weight 123.37 kg No Primary Care Physician [facility] 06-16-2024 14:12-0400 Diastolic blood pressure 87 mm[Hg] No Primary Care Physician [facility] 06-16-2024 14:12-0400 Systolic blood pressure 125 mm[Hg] No Primary Care Physician [facility] 04-21-2024 13:38-0500 Body mass index (BMI) [Ratio] 46.3 kg/m2 No Primary Care Physician [facility] 04-21-2024 13:38-0500 Body weight 122.46 kg No Primary Care Physician [facility] 04-21-2024 13:38-0500 Diastolic blood pressure 76 mm[Hg] No Primary Care Physician [facility] 04-21-2024 13:38-0500 Systolic blood pressure 111 mm[Hg] No Primary Care Physician [facility] 03-26-2024 13:14-0500 Body mass index (BMI) [Ratio] 46.4 kg/m2 No Primary Care Physician [facility] 03-26-2024 13:14-0500 Body weight 122.64 kg No Primary Care Physician [facility] 03-26-2024 13:14-0500 Diastolic blood pressure 81 mm[Hg] No Primary Care Physician [facility] 03-26-2024 13:14-0500 Systolic blood pressure 118 mm[Hg] No Primary Care Physician [facility] 03-10-2024 18:30-0500 Body height 162.6 cm Lenard PALACIOS Work Phone: 03-10-2024 18:30-0500 Body mass index (BMI) [Ratio] 45.57 kg/m2 Lenard Santiago SYSTEM DEVELOPER ASSOCIATE MANAGER-DRAPERY WORKER Work Phone: [facility] 03-10-2024 18:30-0500 Body temperature 97.7 [degF] Lenard Santiago SYSTEM DEVELOPER ASSOCIATE MANAGER-DRAPERY WORKER Work Phone: 03-10-2024 18:30-0500 Body weight 120.43 kg Lenard Santiago SYSTEM DEVELOPER ASSOCIATE MANAGER-DRAPERY WORKER Work Phone: 03-10-2024 18:30-0500 Diastolic blood pressure 81 mm[Hg] Lenard Santiago SYSTEM DEVELOPER ASSOCIATE MANAGER-DRAPERY WORKER Work Phone: [facility] 03-10-2024 18:30-0500 Heart rate 99 /min Lenard Santiago SYSTEM DEVELOPER ASSOCIATE MANAGER-DRAPERY WORKER Work Phone: 03-10-2024 18:30-0500 Respiratory rate 15 /min Lenard Santiago SYSTEM DEVELOPER ASSOCIATE MANAGER-DRAPERY WORKER Work Phone: 03-10-2024 18:30-0500 SaO2% (BldA) [Mass fraction] 96 % Lenard Santiago SYSTEM DEVELOPER ASSOCIATE MANAGER-DRAPERY WORKER Work Phone: [facility] 03-10-2024 18:30-0500 Systolic blood pressure 115 mm[Hg] Lenard Santiago SYSTEM DEVELOPER ASSOCIATE MANAGER-DRAPERY WORKER Work Phone: 10-14-2023 10:51-0400 Body temperature 98.71 [degF] Uzair Cabrera MD Work Phone: [facility] 10-14-2023 10:51-0400 Diastolic blood pressure 80 mm[Hg] Uzair Cabrera MD Work Phone: [facility] 10-14-2023 10:51-0400 Heart rate 80 /min Uzair Cabrera MD Work Phone: [facility] 10-14-2023 10:51-0400 Respiratory rate 17 /min Uzair Cabrera MD Work Phone: 10-14-2023 10:51-0400 SaO2% (BldA) [Mass fraction] 90 % Uzair Cabrera MD Work Phone: 10-14-2023 10:51-0400 Systolic blood pressure 150 mm[Hg] Uzair Cabrera MD Work Phone: 10-14-2023 07:36-0400 Body height 162.6 cm zUair Cabrera MD Work Phone: 10-14-2023 07:36-0400 Body mass index (BMI) [Ratio] 46.96 kg/m2 Uzair Cabrera MD Work Phone: 10-14-2023 07:36-0400 Body weight 124.15 kg Uzair Cabrera MD Work Phone: 10-13-2023 11:25-0400 SaO2% (BldA) [Mass fraction] 95.1 % Uzair Cabrera MD Work Phone: 09-18-2022 07:51-0400 Blood Pressure Location Alexander Gudimella [facility] 09-18-2022 07:51-0400 Diastolic blood pressure 68 mm[Hg] Alexander Gudimella [facility] 09-18-2022 07:51-0400 Heart rate 99 /min Alexander Gudimella [facility] 09-18-2022 07:51-0400 SaO2% (BldA) [Mass fraction] 97 % Alexander Gudimella [facility] 09-18-2022 07:51-0400 Systolic blood pressure 100 mm[Hg] Alexander Gudimella [facility] 07-30-2022 11:11-0400 Body height 162.[address] Beverley Moncada Work Phone: [facility] 07-30-2022 11:08-0400 Body mass index (BMI) [Ratio] 42.5 kg/m2 Dr. Beverley Moncada Work Phone: [facility] 07-30-2022 11:08-0400 Body weight 112.[address] Beverley Moncada Work Phone: [facility] 07-30-2022 11:08-0400 Diastolic blood pressure 79 mm[Hg] Dr. Beverley Moncada Work Phone: [facility] 07-30-2022 11:08-0400 Systolic blood pressure 124 mm[Hg] Dr. Beverley Moncada Work Phone: [facility] 06-12-2022 11:10-0400 Body mass index (BMI) [Ratio] 45.4 kg/m2 Dr. Beverley Moncada Work Phone: [facility] 06-12-2022 11:10-0400 Body weight 120.[address] Beverley Moncada Work Phone: [facility] 06-12-2022 11:10-0400 Diastolic blood pressure 84 mm[Hg] Dr. Beverley Moncada Work Phone: [facility] 06-12-2022 11:10-0400 Systolic blood pressure 125 mm[Hg] Dr. Beverley Moncada Work Phone: [facility] 06-11-2022 15:30-0400 Body temperature 98.1 [degF] Dr. Beverley Moncada Work Phone: [facility] 06-11-2022 15:30-0400 Diastolic blood pressure 63 mm[Hg] Dr. Beverley Moncada Work Phone: [facility] 06-11-2022 15:30-0400 Heart rate 96 /min Dr. Beverley Moncada Work Phone: [facility] 06-11-2022 15:30-0400 Respiratory rate 18 /min Dr. Beverley Moncada Work Phone: [facility] 06-11-2022 15:30-0400 Systolic blood pressure 128 mm[Hg] Dr. Beverley Moncada Work Phone: [facility] 06-11-2022 07:40-0400 SaO2% (BldA) [Mass fraction] 94 % Dr. Beverley Moncada Work Phone: [facility] 06-08-2022 22:11-0400 Body height 162.[address] Beverley Moncada Work Phone: [facility] 06-08-2022 22:11-0400 Body mass index (BMI) [Ratio] 47.2 kg/m2 Dr. Beverley Moncada Work Phone: [facility] 06-08-2022 22:11-0400 Body weight 124.[address] Beverley Moncada Work Phone: [facility] 06-03-2022 14:59-0400 Body weight 123.[address] Beverley Moncada Work Phone: [facility] 06-03-2022 10:59-0400 Body height 162.[address] Beverley Moncada Work Phone: [facility] 06-03-2022 10:57-0400 Body mass index (BMI) [Ratio] 29.5 kg/m2 Dr. Beverley Moncada Work Phone: [facility] 06-03-2022 10:57-0400 Diastolic blood pressure 78 mm[Hg] Dr. Beverley Moncada Work Phone: [facility] 06-03-2022 10:57-0400 Systolic blood pressure 114 mm[Hg] Dr. Beverley Moncada Work Phone: [facility] 05-28-2022 11:20-0500 Body mass index (BMI) [Ratio] 46 kg/m2 Dr. Beverley Moncada Work Phone: [facility] 05-28-2022 11:20-0500 Body weight 121.[address] Beverley Moncada Work Phone: [facility] 05-28-2022 11:20-0500 Diastolic blood pressure 83 mm[Hg] Dr. Beverley Moncada Work Phone: [facility] 05-28-2022 11:20-0500 Systolic blood pressure 118 mm[Hg] Dr. Beverley Moncada Work Phone: [facility] 05-22-2022 11:05-0500 Body mass index (BMI) [Ratio] 46.5 kg/m2 Dr. Beverley Moncada Work Phone: [facility] 05-22-2022 11:05-0500 Body weight 122.[address] Beverley Moncada Work Phone: [facility] 05-22-2022 11:05-0500 Diastolic blood pressure 77 mm[Hg] Dr. Beverley Moncada Work Phone: [facility] 05-22-2022 11:05-0500 Systolic blood pressure 124 mm[Hg] Dr. Beverley Moncada Work Phone: [facility] 04-22-2022 10:47-0500 Body mass index (BMI) [Ratio] 44.6 kg/m2 Dr. Beverley Moncada Work Phone: [facility] 04-22-2022 10:47-0500 Body weight 117.[address] Beverley Moncada Work Phone: [facility] 04-22-2022 10:47-0500 Diastolic blood pressure 85 mm[Hg] Dr. Beverley Moncada Work Phone: [facility] 04-22-2022 10:47-0500 Systolic blood pressure 127 mm[Hg] Dr. Beverley Moncada Work Phone: [facility] 04-08-2022 12:14-0500 Body temperature 97.8 [degF] Dr. Beverley Moncada Work Phone: [facility] 04-08-2022 12:14-0500 Diastolic blood pressure 60 mm[Hg] Dr. Beverley Moncada Work Phone: [facility] 04-08-2022 12:14-0500 Heart rate 88 /min Dr. Beverley Moncada Work Phone: [facility] 04-08-2022 12:14-0500 SaO2% (BldA) [Mass fraction] 96 % Dr. Beverley Moncada Work Phone: [facility] 04-08-2022 12:14-0500 Systolic blood pressure 117 mm[Hg] Dr. Beverley Moncada Work Phone: [facility] 04-08-2022 11:51-0500 Body mass index (BMI) [Ratio] 44.4 kg/m2 Dr. Beverley Moncada Work Phone: [facility] 04-08-2022 11:51-0500 Body weight 117.[address] Beverley Moncada Work Phone: [facility] 04-08-2022 11:02-0500 Body mass index (BMI) [Ratio] 44.5 kg/m2 Dr. Beverley Moncada Work Phone: [facility] 04-08-2022 11:02-0500 Body weight 117.[address] Beverley Moncada Work Phone: [facility] 04-08-2022 11:02-0500 Diastolic blood pressure 68 mm[Hg] Dr. Beverley Moncada Work Phone: [facility] 04-08-2022 11:02-0500 Systolic blood pressure 110 mm[Hg] Dr. Beverley Moncada Work Phone: [facility] 03-13-2022 15:15-0500 Body mass index (BMI) [Ratio] 44.3 kg/m2 Dr. Beverley Moncada Work Phone: [facility] 03-13-2022 15:15-0500 Body weight 117.[address] Beverley Moncada Work Phone: [facility] 03-13-2022 15:15-0500 Diastolic blood pressure 68 mm[Hg] Dr. Beverley Moncada Work Phone: [facility] 03-13-2022 15:15-0500 Systolic blood pressure 108 mm[Hg] Dr. Beverley Moncada Work Phone: [facility] 01-02-2022 15:54-0400 Body height 162.56 cm [facility] Work Phone: 01-02-2022 15:54-0400 Body mass index (BMI) [Ratio] 42.6 kg/m2 [facility] Work Phone: 01-02-2022 15:54-0400 Body weight 112.66 kg [facility] Work Phone: 01-02-2022 15:54-0400 Diastolic blood pressure 84 mm[Hg] [facility] Work Phone: 01-02-2022 15:54-0400 Systolic blood pressure 123 mm[Hg] [facility] Work Phone: 12-06-2021 14:55-0400 Body height 162.[address] Beverley Moncada Work Phone: [facility] Work Phone: 12-06-2021 14:55-0400 Body mass index (BMI) [Ratio] 42.5 kg/m2 Dr. Beverley Moncada Work Phone: [facility] Work Phone: 12-06-2021 14:55-0400 Body weight 112.[address] Beverley Moncada Work Phone: [facility] Work Phone: 12-06-2021 14:55-0400 Diastolic blood pressure 72 mm[Hg] Dr. Beverley Moncada Work Phone: [facility] Work Phone: 12-06-2021 14:55-0400 Systolic blood pressure 110 mm[Hg] Dr. Beverley Moncada Work Phone: [facility] Work Phone: 11-21-2021 13:23-0400 Body height 162.56 cm Kelly Madera DO Work Phone: [address] [address] Work Phone: 11-21-2021 13:23-0400 Body mass index (BMI) [Ratio] 42.23 kg/m2 Kelly Madera DO Work Phone: [address] Work Phone: 11-21-2021 13:23-0400 Body surface area Derived from formula 2.14 m2 Kelly Madera DO Work Phone: [place] [address] [employer] Work Phone: 11-21-2021 13:23-0400 Body weight 111.59 kg Kelly Madera DO Work Phone: [address] Work Phone: 11-21-2021 13:23-0400 Diastolic blood pressure 78 mm[Hg] Kelly Madear DO Work Phone: [place] [address] [employer] Work Phone: 11-21-2021 13:23-0400 Systolic blood pressure 118 mm[Hg] Kelly Madera DO Work Phone: [facility] Work Phone: Encounters Encounter Date Encounter Type Care Provider Facility Start: 09-16-2024 ambulatory No Primary Car e Physician Facility:[facility] Start: 09-09-2024 End: 09-09-2024 Patient encounter procedure Tenisha Reyna CNM -[facility] Work Phone: Start: 09-09-2024 End: 09-09-2024 ambulatory No Primary Care Physician [facility] Work Phone: Start: 09-09-2024 Patient encounter procedure Tenisha Reyna CNM -[facility] Work Phone: Start: 09-09-2024 ambulatory Tenisha Reyna Facility :[facility] Start: 09-06-2024 Encounter for genera l adult medical examination without abnormal findings Beverley Moncada [facility] Start: 09-02-2024 End: 09-02-2024 Patient encounter procedure Fariba BREAUX -[facility] Work Phone: Start: 09-02-2024 End: 09-02-2024 ambulatory No Primary Care Physician [facility] Work Phone: Start: 09-02-2024 End: 09-02-2024 ambulatory Tenisha Reyna Facility:[facility] Start: 08-26-2024 End: 08-26-2024 ambulatory No Primary Care Physician [facility] Work Phone: Start: 08-26-2024 End: 08-26-[address] Nenita Wells MD -[facility] Work Phone: Start: 08-26-2024 End: 08-26-2024 ambulatory Nenita Wells Facility:[facility] Start: 08-19-2024 End: 08-19-2024 ambulatory No Primary Care Physician [facility] Work Phone: Start: 08-19-2024 End: 08-19-2024 Patient encounter procedure Tenisha Reyna CNM -[facility] Work Phone: Start: 08-19-2024 Non-patient / Non-visit Dr. Beverley Moncada DO -[facility] Start: 08-19-2024 End: 08-19-2024 ambulatory Tenisha Reyna Facility:[facility] Start: 08-11-2024 End: 08-11-2024 ambulatory No Primary Care Physician [facility] Work Phone: Start: 08-11-2024 End: 08-11-[address] Beverley Moncada DO -[facility] Work Phone: Start: 08-11-2024 End: 08-11-[address] Beverley Moncada DO -[facility] Work Phone: Start: 08-11-2024 End: 08-11-2024 ambulatory No Primary Care Physician [facility] Work Phone: Start: 07-27-2024 End: 07-27-2024 Patient encounter procedure Tenisha Reyna CNM -[facility] Work Phone: Start: 07-27-2024 End: 07-27-2024 ambulatory No Primary Care Physician [facility] Work Phone: Start: 07-27-2024 End: 07-27-2024 ambulatory Nenita Wells Facility:[facility] Start: 07-13-2024 End: 07-13-[address] Nenita Wells MD -[facility] Work Phone: Start: 07-13-2024 End: 07-13-2024 ambulatory Nenita Wells Facility:[facility] Start: 06-30-2024 End: 06-30-2024 Patient encounter procedure Fariba BREAUX -[facility] Work Phone: Start: 06-30-2024 End: 06-30-2024 ambulatory No Primary Care Physician [facility] Work Phone: Start: 06-30-2024 End: 06-30-2024 ambulatory Nenita Wells Facility:[facility] Start: 06-22-2024 ambulatory No Primary Car e Physician Facility:[facility] Start: 06-22-2024 ambulatory Nenita Dove lity:[facility] Start: 06-22-2024 Non-patient / Non-visit Tenisha Reyna CNM -[facility] Start: 06-21-2024 End: 06-21-2024 ambulatory No Primary Care Physician [facility] Work Phone: Start: 06-21-2024 End: 06-21-[address] Nenita Wells MD -[facility] Work Phone: Start: 06-16-2024 End: 06-16-[address] Beverley Moncada DO -[facility] Work Phone: Start: 06-16-2024 End: 06-16-2024 ambulatory No Primary Care Physician Facility:[facility] Start: 05-19-2024 ambulatory Nenita Hidalgomayra Petty lity:[facility] Start: 05-06-2024 End: 05-06-2024 ambulatory IVANIA [facility] Start: 04-21-2024 End: 04-21-2024 Patient encounter procedure Fariba BREAUX -[facility] Work Phone: Start: 04-21-2024 End: 04-21-2024 ambulatory No Primary Care Physician Facility:[facility] Start: 03-26-2024 End: 03-26-[address] Nenita Wells MD -[facility] Work Phone: Start: 03-26-2024 End: 03-26-2024 ambulatory Nenita Wells Facility:[facility] Start: 03-26-2024 End: 03-26-2024 ambulatory Nenita Wells Facility:[facility] Start: 03-10-2024 End: 03-10-2024 Office outpatient visit 15 minutes Lenard Santiago APRN-DRAPERY WORKER Work Phone: [facility] Comment on above: Pneumonia of left antonino ng due to infectious organism, unspecified part of lung (Primary Dx); Cough, unspecified type Start: 03-10-2024 ambulatory LENARD Pichardo [facility] Start: 02-18-2024 End: 02-18-2024 ambulatory No Primary Care Physician Facility:[facility] Start: 02-18-2024 End: 02-18-2024 ambulatory No Primary Care Physician Facility:[facility] Start: 10-10-2023 End: 10-14-2023 Evaluation and management of inpatient Uzair Cabrera MD Work Phone: [facility] Comment on above: Pneumonia Start: 05-13-2023 End: 05-14-2023 [facility] Start: 01-28-2023 End: 01-29-2023 ambulatory [facility] Start: 01-28-2023 End: 01-29-2023 Encounter for general adult medical examination without abnormal findings [facility] Start: 11-04-2022 End: 11-05-2022 ambulatory Alexander Gudimella Facility:[facility] Start: 11-04-2022 End: 11-04-2022 Patient encounter procedure Alexander Gudimella [facility] Start: 10-21-2022 End: 10-22-2022 ambulatory Alexander Gudimella Facility:[facility] Start: 10-21-2022 End: 10-21-2022 Patient encounter procedure Alexander Gudimella [facility] Start: 10-01-2022 End: 10-02-2022 ambulatory Alexander Gudimella Facility:[facility] Start: 10-01-2022 End: 10-01-2022 Patient encounter procedure Alexander Gudimella [facility] Start: 10-01-2022 End: 10-02-2022 ambulatory Alexander Gudimella Facility:[facility] Start: 09-18-2022 End: 09-19-2022 ambulatory Alexander Gudimella Facility:[facility] Start: 09-18-2022 End: 09-18-2022 Patient encounter procedure Alexander Gudimella [facility] Start: 09-12-2022 End: 09-13-2022 Emergency department patient visit Provider Pending Facility:[id number] Start: 09-11-2022 ambulatory LAURA SIDELL Facility:[facility] Start: 08-27-2022 End: 08-28-2022 ambulatory [facility] W [facility]LL [facility] Start: 08-27-2022 End: 08-27-2022 Off-Site [facility] Start: 07-30-2022 End: 07-30-[address] Beverley Moncada Work Phone: [facility] Work Phone: Start: 07-30-2022 End: 07-30-[address] Beverley Moncada Work Phone: [facility]-Laboratory, Specimen Start: 07-30-2022 End: 07-30-[address] Beverley Moncada Work Phone: [facility] Start: 06-16-2022 End: 06-16-[address] Beverley Moncada Work Phone: [facility] Start: 06-12-2022 End: 06-12-[address] Beverley Moncada Work Phone: [facility] Start: 06-11-2022 Non-patient / Non-visit Dr. Beverley Moncada Work Phone: [facility] Start: 06-10-2022 Non-patient / Non-visit Dr. Beverley Moncada Work Phone: [facility] Start: 06-09-2022 Non-patient / Non-visit Dr. Beverley Moncada Work Phone: [facility] Start: 06-08-2022 Non-patient / Non-visit Dr. Beverley Moncada Work Phone: [facility] Start: 06-08-2022 End: 06-11-2022 Evaluation and management of inpatient Dr. Beverley Moncada Work Phone: [facility] Start: 06-03-2022 End: 06-03-[address] Beverley Moncada Work Phone: [facility] Work Phone: Start: 06-03-2022 End: 06-03-[address] Beverley Moncada Work Phone: [facility]Outpatient Pav[facility] Ultrasound Start: 06-03-2022 End: 06-03-[address] Beverley Moncada Work Phone: [facility] Start: 05-28-2022 End: 05-28-[address] Beverley Moncada Work Phone: [facility] Start: 05-22-2022 End: 05-22-[address] Beverley Moncada Work Phone: [facility] Start: 04-22-2022 End: 04-22-[address] Beverley Moncada Work Phone: [facility] Start: 04-08-2022 Non-patient / Non-visit Dr. Beverley Moncada Work Phone: [facility] Start: 04-08-2022 End: 04-08-[address] Beverley Moncada Work Phone: [facility], Outpatients Start: 03-28-2022 End: 03-28-2022 ambulatory Provider Pending Facility:[id number] Start: 03-13-2022 End: 03-13-[address] Beverley Moncada Work Phone: [facility] Start: 01-02-2022 End: 01-02-2022 ambulatory [facility] Work Phone: Start: 01-02-2022 End: 01-02-2022 Patient encounter procedure [facility]-Laboratory, Specimen Start: 01-02-2022 End: 01-02-2022 Patient encounter procedure [facility] Start: 12-12-2021 End: 12-12-2021 Patient encounter procedure [facility] Start: 12-06-2021 End: 12-06-[address] Beverley Moncada Work Phone: [facility] Work Phone: Start: 12-06-2021 End: 12-06-[address] Beverley Moncada Work Phone: [facility] Start: 12-06-2021 End: 12-06-[address] Beverley Moncada Work Phone: [facility] Start: 11-23-2021 Chart Update Kelly Madera DO Work Phone: [address] Work Phone: Start: 03-02-2016 End: 03-03-2016 [...] by JADYN with probe detection Lenard Santiago SYSTEM DEVELOPER ASSOCIATE MANAGER-DRAPERY WORKER Work Phone: Start: 10-14-2023 C-reactive protein Step johnnie Lara SYSTEM DEVELOPER ASSOCIATE MANAGER-DRAPERY WORKER Work Phone: Start: 10-14-2023 Complete blood count with white cell differential, automated Marilee Dallas DO Work Phone: Start: 10-14-[address] josseline Allen SYSTEM DEVELOPER ASSOCIATE MANAGER-DRAPERY WORKER Work Phone: Start: 10-13-2023 Echo tthrc r-t 2d w/ wom-mode compl spec&colr d Shanon J Shanae SYSTEM DEVELOPER ASSOCIATE MANAGER-DRAPERY WORKER Work Phone: Start: 10-13-2023 Assay of lactate Oliviasit y Herminia Shanae SYSTEM DEVELOPER ASSOCIATE MANAGER-DRAPERY WORKER Work Phone: Start: 10-13-2023 Blood gases any comb ination ph pco2 po2 co2 hco3 Shanon J Shanae SYSTEM DEVELOPER ASSOCIATE MANAGER-DRAPERY WORKER Work Phone: Start: 10-13-2023 Radiologic exam ches t single view Marilee Dallas DO Work Phone: Start: 10-13-2023 C-reactive protein Step hen D Frederick SYSTEM DEVELOPER ASSOCIATE MANAGER-DRAPERY WORKER Work Phone: Start: 10-13-[address] josseline Diaz Alejandro SYSTEM DEVELOPER ASSOCIATE MANAGER-DRAPERY WORKER Work Phone: Start: 10-13-2023 Assay of lactate Stephe n D Jane SYSTEM DEVELOPER ASSOCIATE MANAGER-DRAPERY WORKER Work Phone: Start: 10-12-2023 Assay of lactate Stephe n D Frederick SYSTEM DEVELOPER ASSOCIATE MANAGER-DRAPERY WORKER Work Phone: Start: 10-12-2023 Assay of lactate Stephe n D Frederick SYSTEM DEVELOPER ASSOCIATE MANAGER-DRAPERY WORKER Work Phone: Start: 10-12-2023 Urinalysis microscopic only Uzair D Frederick SYSTEM DEVELOPER ASSOCIATE MANAGER-DRAPERY WORKER Work Phone: Start: 10-12-2023 Urinalysis, reagent strip without microscopy Uzair D Jane SYSTEM DEVELOPER ASSOCIATE MANAGER-DRAPERY WORKER Work Phone: Start: 10-12-2023 End: 10-12-2023 Assay of troponin quantitative Uzair D Frederick SYSTEM DEVELOPER ASSOCIATE MANAGER-DRAPERY WORKER Work Phone: Start: 10-12-2023 C-reactive protein Step hen D Frederick SYSTEM DEVELOPER ASSOCIATE MANAGER-DRAPERY WORKER Work Phone: Start: 10-12-2023 End: 10-12-2023 Natriuretic peptide Uzair D Jane SYSTEM DEVELOPER ASSOCIATE MANAGER-DRAPERY WORKER Work Phone: Start: 10-12-2023 Radiologic exam ches t single view Uzair Lara SYSTEM DEVELOPER ASSOCIATE MANAGER-DRAPERY WORKER Work Phone: Start: 10-12-[address] josseline Fincher SYSTEM DEVELOPER ASSOCIATE MANAGER-DRAPERY WORKER Work Phone: Start: 10-11-2023 Ct angiography chest w/contrast/noncontrast Uzair Lara SYSTEM DEVELOPER ASSOCIATE MANAGER-DRAPERY WORKER Work Phone: Start: 10-11-2023 Cultyp nuc acid amp prb cult/isolate ea orgnism Mirela Diaz Alejandro SYSTEM DEVELOPER ASSOCIATE MANAGER-DRAPERY WORKER Work Phone: Start: 10-11-2023 Fibrin dgradj produc ts d-dimer qual/semiquan Mirela Diaz Alejandro SYSTEM DEVELOPER ASSOCIATE MANAGER-DRAPERY WORKER Work Phone: Start: 10-11-2023 Ct thorax w/o contra st material Mirela Diaz Alejandro SYSTEM DEVELOPER ASSOCIATE MANAGER-DRAPERY WORKER Work Phone: Start: 10-11-2023 Iaad ia mult step me thod nos each organism Mirela Diaz Alejandro SYSTEM DEVELOPER ASSOCIATE MANAGER-DRAPERY WORKER Work Phone: Start: 10-11-2023 Blood count complete auto&auto difrntl wbc Marilee Dallas DO Work Phone: Start: 10-11-2023 C-reactive protein Step parul Diaz Alejandro SYSTEM DEVELOPER ASSOCIATE MANAGER-DRAPERY WORKER Work Phone: Start: 10-10-2023 Culture bacterial bl [...] above: Performed By: #### T +S #### [facility] [id number] [place] [address] Cytopathology proced ure, preparation of smear, genital source Dr. Beverley Moncada Work Phone: Dilation and curetta ge of uterus LAURA PEREZ Group B Streptococcu s Culture Dr. Beverley Moncada Work Phone: Hysteroscopy Kelly Quiroga Work Phone: Comment on above: 2013; Investigation of tra nsfusion reaction Dr. Beverley Moncada Work Phone: None (qualifier value) ALURA PEREZ Urine culture LAURA PEREZ Plan of Treatment Date Care Activity Detail Author Start: 2053 RSV VACCINE (1 - 1-d ose 60+ series) RSV VACCINE (1 - 1-dose 60+ series) Start: 09-06-2029 Tetanus vaccination T[facility] Start: 10-13-2024 Potassium [Moles/vol ume] in Serum or Plasma POTASSIUM Start: 09-02-2024 Measurement of gluco se 2 hours after glucose challenge for glucose tolerance test [facility] Start: 08-26-2024 Biophysical pr ofile panel US [facility] Start: 08-26-2024 Ultrasonography for biophysical profile without non-stress testing Biophysical Prof W/O Non Stres [facility] Start: 08-26-2024 Ultrasound scan for growth [facility] Start: 08-11-2024 Iv infusion hydratio n initial 31 min-1 hour HYDRATION IV INFUSION INIT [facility] Start: 08-11-2024 Nonstress test [facility] Start: 08-11-2024 Obstetric monitoring [facility] Start: 08-11-2024 Vital signs measurements [facility] Start: 08-11-2024 [facility] Start: 08-11-2024 Patient discharge [facility] Start: 06-21-2024 Nonstress test [facility] Start: 06-21-2024 Source specific culture [facility] Start: 06-21-2024 End: 06-21-[address] [facility] Start: 06-21-2024 Obstetric monitoring [facility] Start: 06-21-2024 Vital signs measurements [facility] Start: 06-21-2024 Bacteria identified in Urine by Culture Urine Culture [facility] Start: 06-21-2024 Genital Culture Genital Culture [facility] Start: 06-21-2024 Microscopic observat ion [Identifier] in Unspecified specimen by Gram stain [facility] Start: 11-24-2023 End: 12-29-2023 CT Chest WO contrast CT CHEST WITHOUT CONTRAST Imaging Routine Pneumonia of both lungs due to infectious organism, unspecified part of lung Expected: 11/24/2023, Expires: 12/29/2023 Comment on above: Expected: 11/24/2023 , Expires: 12/29/2023 Start: 11-23-2023 COVID-19 VACCINE ( season) COVID-19 VACCINE ( season) Start: 11-23-2023 Influenza vaccination INFLUENZA VACC INE (#1) Start: 11-22-2022 COVID-19 VACCINE ( season) COVID-19 VACCINE ( season) Start: 06-11-2022 Patient discharge [facility] Start: 06-11-2022 [facility] Start: 06-10-2022 Consultation [facility] Start: 06-09-2022 Administration of medication [facility] Start: 06-09-2022 Application of ice c ollar, cap or bag [facility] Start: 06-09-2022 Catheterization of vein [facility] Start: 06-09-2022 Introduction of urin omar catheter [facility] Start: 06-09-2022 Measuring intake and output [facility] Start: 06-09-2022 Notification of physician [facility] Start: 06-09-2022 Procedure discontinued [facility] Start: 06-09-2022 Provision of activit y privileges [facility] Start: 06-09-2022 Vital signs measurements [facility] Start: 06-09-2022 [facility] Start: 06-08-2022 Admission procedure [facility] Start: 04-08-2022 Nonstress test [facility] Start: 04-08-2022 Obstetric monitoring [facility] Start: 04-08-2022 Vital signs measurements [facility] Start: 04-08-2022 [facility] Start: 04-08-2022 Patient discharge [facility] Start: 12-06-2021 Chlamydia deoxyribon ucleic acid detection [facility] Work Phone: Start: 12-06-2021 Liquid based cervica l cytology screening [facility] Work Phone: Start: 2014 Screening for malign ant neoplasm of cervix CERVICAL CANCER SCREENING DISCUSSION Start: 2012 Hepatitis B vaccination HEP B VACCINE (1 of 3 - 19+ 3-dose series) Start: 2008 HIV screening HIV SCREENING DISCUSSION Start: 1993 Hepatitis C screening HEPATITI S C VIRUS SCREENING Bacteria identified in Blood by Culture BLOOD CULTURE Microbiology [facility] 10/10/2023 10:28 PM EDT CBC W Auto Different ial panel - Blood [facility] Work Phone: CBC W Auto Different ial panel - Blood [facility] Biophysical pr ofile panel US [facility] Genital microscopy, culture and sensitivities [facility] Glucose [Mass/volume ] in Serum or Plasma --1 hour post 50 g glucose PO [facility] Work Phone: Hepatitis B surface antigen measurement [facility] Work Phone: Hepatitis C antibody measurement [facility] Work Phone: HIV 1+2 Ab+HIV1 p24 Ag [Presence] in Serum or Plasma by Immunoassay [facility] Work Phone: Measurement of gluco se 2 hours after glucose challenge for glucose tolerance test [facility] Measurement of gluco se 2 hours after glucose challenge for glucose tolerance test [facility] Neisseria gonorrhoea e rRNA [Presence] in Unspecified specimen by JADYN with probe detection [facility] Work Phone: Path report.final Dx Spec [facility] Work Phone: Patient Education [facility] Work Phone: [facility] Work Phone: PCR test for Chlamyd ia trachomatis [facility] Work Phone: Rubella IgG measurement [facility] Work Phone: Serologic test for syphilis [facility] Streptococcus agalac tiae [Presence] in Unspecified specimen by Organism specific culture [facility] T4 free measurement [facility] Thyroid stimulating hormone measurement [facility] Treponema sp Ab [Pre sence] in Serum [facility] Work Phone: Ultrasound scan for growth [facility] Ultrasound scan for growth [facility] Urine culture [facility] Immunizations Immunization Date Immunization Notes Care Provider Fa fritz 09-07-2019 tetanus toxoid, redu devin diphtheria toxoid, and acellular pertussis vaccine, adsorbed Dr. Beverley Moncada Work Phone: [facility] 01-22-2019 influenza virus vaccine, live, attenuated, for intranasal use [facility]URA A[facility] 12-08-2018 influenza virus vaccine, unspecified formulation Uzair Cabrera MD Work Phone: Payers Date Payer Category Payer Self-pay [id number] 2022 Unknown 2022 Unknown [id number] 2022 Medicaid [id number] 1993 Unknown [id number] 1993 Unknown [id number] 2.16.840.1.527908.3.579.2.1069 1993 Unknown [id number] 2.16.840.1.616910.3.579.2.727 1993 Unknown [id number] 2.16.840.1.800270.3.579.2.727 1993 Unknown [id number] 2.16.840.1.658263.3.579.2.727 1993 Unknown [id number] 2.16.840.1.418692.3.579.2.727 1993 Unknown [id number] 2.16.840.1.795924.3.579.2.727 1993 Unknown [id number] 2.16.840.1.808800.3.579.2.727 1993 Unknown [id number] 2.16.840.1.645316.3.579.2.1245 1993 Unknown [id number] 2.16.840.1.525655.3.579.2.174 1993 Unknown [id number] 2.16.840.1.122648.3.579.2.983 1993 Unknown [id number] 2.16.840.1.630324.3.579.2.983 1993 Unknown [id number] 1959 Unknown [id number] Unknown ANTHEM [id number] Unknown ANTHEM SECONDARY [id number] Unknown OBWC [facility] 2 [id number] Unknown [id number] 05.09.830.1.742222.3.579.2.462 Unknown [id number] Unknown [id number] 05.09.830.1.639717.3.579.2.462 Unknown [id number] 05.09.830.1.651734.3.579.2.462 Unknown [id number] 05.09.830.1.115523.3.579.2.462 Unknown [id number] 05.09.830.1.147598.3.579.2.462 Unknown [id number] Unknown [id number] 05.09.830.1.954495.3.579.2.462 Unknown [id number] Unknown [id number] Unknown [id number] 840.1.353796.3.579.2.462 Unknown [id number] 840.1.315846.3.579.2.462 Unknown [id number] 840.1.073985.3.579.2.462 Unknown [id number] 2.16.840.1.403790.3.579.2.462 Unknown [id number] 2.16.840.1.749247.3.579.2.462 Unknown [id number] 2.16.840.1.354227.3.579.2.462 Unknown [id number] 2.16.840.1.284634.3.579.2.462 Unknown [id number] 2.16.840.1.686992.3.579.2.462 Unknown [id number] 2.16.840.1.118737.3.579.2.462 Unknown [id number] 2.16.840.1.439484.3.579.2.462 Unknown [id number] 2.16.840.1.335778.3.579.2.462 Unknown [id number] 2.16.840.1.398721.3.579.2.462 Unknown [id number] 2.16.840.1.217554.3.579.2.462 Unknown [id number] 2.16.840.1.086713.3.579.2.462 Unknown [id number] 2.16.840.1.632081.3.579.2.462 Unknown [id number] 2.16.840.1.766525.3.579.2.462 Unknown [id number] 2.16.840.1.841638.3.579.2.462 Unknown [id number] 2.16.840.1.410885.3.579.2.462 Social History Date Type Detail Facility Start: 10-13-2023 End: 03-10-2024 Former smoker Former smoker Start: 12-06-2021 End: 07-30-2022 Tobacco smoking status GAIS Unknown if ever smoked [facility] Start: 1995 Sex Assigned At Female W [facility] Start: 08-27-2022 End: 10-01-2022 Tobacco smoking status Ex-smoker (finding) [facility] [place] [facility] status [facility] Start: 10-13-2023 End: 03-10-2024 Sex Assigned At Female Jack Frazier [facility] Start: 10-10-2023 End: 06-21-2024 Tobacco smoking status NHIS Never smoked tobacco [facility] Start: 10-10-2023 Tobacco use and exposure Smokeless tobacco non-user [facility] Start: 10-10-2023 End: 03-10-2024 Alcoholic beverage intake Ex-drinker (finding) [facility] Has the [employer], [employer], oil, or water company threatened to shut off services in your home in past 12Mo No [facility] System (I/We) worried [facility] er (my/our) food would run out before (I/we) got money to buy more. Never true [employer] Start: 1995 Sex assigned at Not on file [facility] Start: 12-30-2023 [facility] Start: 06-22-2024 End: 07-06-2024 Sex Female (finding) [facility] Goals Date Patient Goal Desired Activity /State Functional Status Date Assessment Result Facility 09-18-2022 Functional Status N/A [facility] [place] 08-27-2022 Functional Status [facility]health [facility] 12-06-2021 to 09-09-2024 Note Date & Type Note Facility 09-09-2024 Progress note [facility] 09-09-2024 Progress note Note Date/Time September 09, 2024 2:42pm [facility] [address] [place] [address], [address] [place] [address] OFFICE VISIT Date of Service: 09/09/24 MR#: [id number] Acct: [id number] Name: ANAI WOO Rep #: [id number] : 1995 Provider: DEAN Reyna Age/Sex: 29/F Location: [facility] Status: Signed Intake Vital Signs 07/27/24 13:40 09/02/24 11:25 09/09/24 14:13 Height 5 ft 4 in 5 ft 4 in 5 ft 4 in Weight: 284 lb BMI 48.7 BP 126/82 H Intake Visit Reasons: 38 wk ob Chief Complaint: 38 Week OB Gum Machine Operator Required: No Is patient in pain?: No [...] 1 current occupational status: employed current occupation: [employer] current occupational exposures/hazards: No pets and animals: [...] 3-4 times per week duration: 30-45 minutes/day katherine/presybeterian: None seatbelt use: always do you feel safe at home: Yes additional social history: 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 GA appropriate handout given. 09/09/24 4842 <Electronically signed by Tenisha moody CNM> Date _ Tenisha Reyna CNM Cosigner Signature: Date (if applicable) CC: ~ [facility] Work Phone: 1(109) 146-801706-12-2025 Radiology Diagnostic study note [facility] Imaging Services [address] [place], [place] [address] Biophysical Prof W/O Non Stres MR#: [id number] Acct: [id number] Name: ANAI WOO Rep #: [id number] : 1995 F 29 From: Gustavo Thapa MD PCP: Status: REG CLI Study:Biophysical Prof W/O Non Stres Date of Exam: 09/02/24 Exam# [id number] Ordering Dr: Tenisha Reyna CNM PROCEDURE: BIOPHYSICAL [...] Stres IMPRESSION: Normal biophysical profile. Reading Location: [place] [address] CC: DEAN Sánchez Boat Hoist Operator Helper: Signed [facility]06-09-2025 Radiology Diagnostic study note [facility] Imaging Services [address] [place] [address] [id number] OB Limited With Biometrics MR#: [id number] Acct: [id number] Name: ANAI WOO Rep #: [id number] : 1995 F 29 From: Gustavo Thapa MD PCP: Status: REG CLI Study:OB Limited With Biometrics Date of Exam : 08/26/24 Exam# [id number] Ordering Dr: Nenita Lucas MD PROCEDURE: OB [...] with the normal expected range. Reading Location: [place] [address] CC: LAURA PEREZ; Dr. Nenita Wells MD ~ Boat Hoist Operator Helper: Signed [facility]06-08-2025 Radiology Diagnostic study note [facility] Imaging Services [address] [place] [address] Biophysical Prof W/O Non Stres MR#: [id number] Acct: [id number] Name: ANAI WOO Rep #: [id number] : 1995 F 29 From: Pet er Peer DO PCP: Status: REG CLI Study:Biophysical Prof W/O Non Stres Date of Exam: 08/26/24 Exam# [id number] Ordering Dr: Tenisha Reyna CNM PROCEDURE: BIOPHYSICAL [...] dateby current prior ultrasound: 09/11/2019 Reading [facility] CC: DEAN Reyna; LAURA PEREZ ~ Boat Hoist Operator Helper: Signed [facility]05-29-2025 Radiology Diagnostic study note [facility] Imaging Services [address] [place] [address]391 Biophysical Prof W/O Non Stres MR#: [id number] Acct: [id number] Name: ANAI WOO Rep #: [id number] : 1995 F 29 From: Gustavo Thapa MD PCP: LAURA PERZE Status: REG CLI Study:Biophysical Prof W/O Non Stres Date of Exam: 08/19/24 Exam# [id number] Ordering Dr: Tenisha Reyna CNM PROCEDURE: BIOPHYSICAL [...] Stres IMPRESSION: Normal biophysical profile. Reading Location: [id number] CC: DEAN Reyna; LAURA Sánchez Boat Hoist Operator Helper: Signed [facility]05-21-2025 Radiology Diagnostic study note [facility] Imaging Services [address] [place] [address] Biophysical Prof W/O Non Stres MR#: [id number] Acct: [id number] Name: ANAI WOO Rep #: [id number] : 1995 F 29 From: Gustavo Thapa MD PCP: Care Physician,No Primary Status: REG CLI Study:Biophysical Prof W/O Non Stres Date of Exam: 08/11/24 Exam# [id number] Ordering Dr: Tenisha Reyna CNM PROCEDURE: BIOPHYSICAL [...] IMPRESSION: biophysical profile score: 6/8. Reading Location: [place] [address] CC: DEAN Reyna; No Primary Care Physician ~ Boat Hoist Operator Helper: Signed [facility]05-07-2025 Radiology Diagnostic study note [facility] Imaging Services [address] [place], [place] [address] OB Limited With Biometrics MR#: [id number] Acct: [id number] Name: ANAI WOO Rep #: [id number] : 1995 F 29 From: Patricia Schreiber MD PCP: Care Physician,No Primary Status: REG CLI Study:OB Limited With Biometrics Date of Exam : 07/27/24 Exam# [id number] Ordering Dr: Nenita Lucas MD PROCEDURE: OB [...] represent a possible placental Pop. Reading Location: [id number] CC: Dr. Nenita Wells MD; No Primary Care Physician ~ Boat Hoist Operator Helper: Signed [facility]03-31-2025 Radiology Diagnostic study note [facility] Imaging Services [address] [place], [place] [id number] OB Limited With Biometrics MR#: [id number] Acct: [id number] Name: ANAI WOO Rep #: [id number] : 1995 F 29 From: Emily Daniels DO PCP: Care Physician,No Primary Status: REG CLI Study:OB Limited With Biometrics Date of Exam : 06/21/24 Exam# [id number] Ordering Dr: Tenisha Reyna CNM PROCEDURE: OB [...] DEAN Reyna; No Primary Care Physician ~ Boat Hoist Operator Helper: Signed [facility]03-26-2025 Evaluation note* Diagnosis Onset Date Resolution [...] 1 2:56pm Thyromegaly acute August 26 12:56pm [facility] Work Phone: 1(375) 764-601103-26-2025 Evaluation note* Diagnosis Onset Date Resolution Status [...] 2024 11:21am Thyromegaly acute September 02 11:21am [facility] Work Phone: 1(529) 160-519003-26-2025 Evaluation note* Diagnosis Onset Date Resolution Status [...] 1 1:46am Thyromegaly acute August 11 11:46am [facility] Work Phone: 1(717) 948-615003-26-2025 Evaluation note* Diagnosis Onset Date Resolution Status [...] 2024 11:21am Thyromegaly acute September 02 11:21am [facility] Work Phone: 1(782) 775-794903-26-2025 Evaluation note* Diagnosis Onset Date Resolution Status [...] 2024 2:11pm Thyromegaly acute September 09 2:11pm [facility] Work Phone: 1([phone]) 376-122101-29-2025 Evaluation note* Diagnosis Onset Date Resolution Status [...] 32pm Thyromegaly acute July 27, 2024 1:32pm [facility] Work Phone: 1([phone]) 960-288701-29-2025 Evaluation note* Diagnosis Onset Date Resolution Status [...] 1 0:05am Thyromegaly acute August 11 10:05am [facility] Work Phone: 1([phone]) 992-957601-03-2025 Evaluation note* Diagnosis Onset Date Resolution Status [...] 2:10pm Thyromegaly acute June 16, 025 2:10pm [facility] Work Phone: 1(420) 218-387901-03-2025 Evaluation note* Diagnosis Onset Date Resolution Status [...] bleeding during acute June 30, 2024 2:24pm [facility] Work Phone: 1(505) 804-756212-18-2024 History of Present illness Narrative* Lenard Santiago, ANU-DRAPERY WORKER - 03/10/2024 4:55 PM EST HPI Anai Woo female 1995 presents to the [facility] with Chief Complaint Patient presents [...] Resource Strain: Low Risk (02/24/2024) Received from [facility] Overall Financial Resource Strain (CARDIA) Difficulty of Paying Living Expenses: Not hard at all Food Insecurity: No Food Insecurity (02/24/2024) Received from [facility] Hunger Vital Sign Worried About Running Out of Food in the Last Year: Never true Ran Out of Food in the Last Year: Never true Transportation Needs: Unknown (02/24/2024) Received from [facility] PRAPARE - Transportation Lack of Transportation (Medical): Not on file Lack of Transportation (Non-Medical): No Physical Activity: Inactive (01/20/2023) Received from [facility] boarding pass [facility] boarding pass [facility] Exercise Vital Sign Days of Exercise [...] Anai Woo female 1995 presents to the [facility] with Chief Complaint Patient [...] improve then worsened again. She has tried ifgi-bxv-sttypgt medications. No recorded fevers. She has body [...] Resource Strain: Low Risk (02/24/2024) Received from [facility] Overall Financial Resource Strain (CARDIA) Difficulty of Paying Living Expenses: Not hard at all Food Insecurity: No Food Insecurity (02/24/2024) Received from [facility] Hunger Vital Sign Worried About Running Out of Food in the Last Year: Never true Ran Out of Food in the Last Year: Never true Transportation Needs: Unknown (02/24/2024) Received from [facility] PRAPARE - Transportation Lack of Transportation (Medical): Not on file Lack of Transportation (Non-Medical): No Physical Activity: Inactive (01/20/2023) Received from [facility] Exercise Vital Sign Days of Exercise [...] days for recheck. Discussed supportive home care, xuqi-hhl-tunybeu medications. Work note provided. If symptoms worsen patient was advised to follow up in our office, primary care provider or the Emergency Dept. Benefits, Risks, Contraindications, and Complications of recommended treatments were explained. The patient understands and agrees to proceed with plan. PHILIP Wilkes 03/10/2024 documented in this encounter07-23-2024 History of Present illness Narrative* Elsa Guzman [...] preference. Referral information emailed to Kadi at [employer]. Will update RT when able to release [employer] tank. * AUDREY Jordan - 10/14/2023 12:29 PM EDT AUDREY updated by respiratory that Anai is going to need 2L o2 at home for discharge. FLUX PLANT OPERATOR updated covering Nurse Navigator Mitra on [...] - 10/13/2023 11:47 AM EDT Chart reviewed. FLUX PLANT OPERATOR met with Anai in the room she [...] Feels safe at home. Discharge plan home FLUX PLANT OPERATOR to follow for new needs 10/13/23 8906 Information Source Information Source patient Employment/Financial Employed? 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 No * Anoop Tee RPh,PharmD - 10/13/2023 9:45 AM EDT Pharmacy - IV to PO Conversion Documentation NAME: Anai Webber Room/Bed: [facility] Previous Medication Order: levaquin 750mg IV every 24 hours New Medication Order: levaquin 750mg PO every 24 hours The above medication was converted from intravenous to oral administration in accordance with the IV to PO Conversion Policy. Orders have [...] continue to follow. Signed: Anoop Tee RPh,PharmD, [facility] Phone: [phone] Date/Time: 10/13/2023 9:44 AM * Shanon Jolly, SYSTEM DEVELOPER ASSOCIATE MANAGER-DRAPERY WORKER - 10/13/2023 9:15 AM EDT DAILY PROGRESS NOTE Anai Webber 1995 Date of Evaluation: 10/13/23 9:15 AM [facility] LOS: 0 days SUBJECTIVE: Patient seen [...] consolidation lung bases right greater than left. [place] to be inflammatory. 3. Small right pleural [...] Code Status Full Code documented in this encounter07-23-2024 Nurse Note* Nursing Notes - Susi Rain RN - 10/14/2023 2:12 PM EDT Discharge instructions and education reviewed with pt, education provided for dx and new medications, printed education given, denies any questions, IV and tele removed 07-23-2024 Miscellaneous Notes* Nursing Notes - Susi Rain [...] done as charted without changes. Elijah H, RN ACUTE CARE notified & new order received. PRN Labetalol [...] Call light within reach. documented in this encounter07-23-2024 Hospital Discharge instructions* Discharge Instr - Activity* [...] * Labetalol Oral Tablet (LABETALOL - ORAL) (Palestinian) * prednisone (Palestinian) * Pneumonia (Palestinian) documented in this [facility]07-23-2024 Nurse Note* Nursing Notes - Machelle Garrett RN - 10/14/2023 6:10 AM EDT Up to use bathroom independently. No change in assessment. Resting quietly. Denies needs. T 07-22-2024 Nurse Note* Nursing Notes - Machelle Garrett RN - 10/13/2023 11:18 PM EDT Sleeping in bed. Assessment done as charted without changes. Elijah Alfonso NP notified & new order received. PRN Labetalol given. Pt denies needs. [facility]07-22-2024 Nurse Note* Nursing Notes - Machelle Garrett RN - 10/13/2023 8:15 PM EDT Awake, sitting up in chair playing game on her laptop. Assessment done as charted. Denies pain or questions at this time. T 07-22-2024 Nurse Note* Nursing Notes - Stacy Daniel RN - 10/13/2023 4:26 AM EDT Patient resting in bed. Assessment unchanged from prior unless otherwise noted in flowsheets. Patient denies any needs. Call light within reach. 07-22-2024 Nurse Note* Nursing Notes - Stacy Daniel RN - 10/13/2023 12:27 AM EDT Patient resting in bed. Assessment unchanged from prior unless otherwise noted in flowsheets. Patient denies any needs. Call light within reach. T 07-21-2024 Nurse Note* Nursing Notes - Calli Meyer RN - 10/12/2023 4:00 PM EDT Patient assessment unchanged from previous assessment. Any exceptions noted in flowsheets. Call light and personal items within reach. Patient denies any further needs. [facility]07-21-2024 Nurse Note* Nursing Notes - Calli Meyer RN - 10/12/2023 12:00 PM EDT Patient assessment unchanged from previous assessment. Any exceptions noted in flowsheets. Call light and personal items within reach. Patient denies any further needs. [facility]07-21-2024 Nurse Note* Nursing Notes - Stacy Daniel RN - 10/12/2023 4:24 AM EDT Patient resting in bed. Assessment unchanged from prior unless otherwise noted in flowsheets. Patient denies any needs. Call light within reach. [facility]07-21-2024 Nurse Note* Nursing Notes - Stacy Daniel RN - 10/12/2023 12:37 AM EDT Patient resting in bed. Assessment unchanged from prior unless otherwise noted in flowsheets. Patient denies any needs. Call light within reach. [facility]07-20-2024 Nurse Note* Nursing Notes - Calli Meyer RN - 10/11/2023 4:00 PM EDT Patient assessment unchanged from previous assessment. Any exceptions noted in flowsheets. Call light and personal items within reach. Patient denies any further needs. [facility]07-20-2024 Nurse Note* Nursing Notes - Calli Meyer RN - 10/11/2023 12:00 PM EDT Patient assessment unchanged from previous assessment. Any exceptions noted in flowsheets. Call light and personal items within reach. Patient denies any further needs. [facility]07-20-2024 Evaluation + Plan note* Assessment & Plan Note - PHILIP Acosta - 10/11/2023 11:42 AM EDTAssociated Problem(s): Febrile Supportive care [facility]07-20-2024 Evaluation + Plan note* Assessment & Plan Note - PHILIP Acosta - 10/11/2023 11:42 AM EDTAssociated Problem(s): Acute hypoxic respiratory failure (Resolved 10/12/2023) Requiring 2 L nasal cannula for adequate oxygenation Continue to wean as tolerated Empiric antibiotics, IV steroids, and routine aerosols [facility]07-20-2024 Evaluation + Plan note* Assessment & Plan Note - PHILIP Acosta - 10/11/2023 11:42 AM EDTAssociated Problem(s): Pneumonia Empiric antibiotics Routine aerosols Supplemental oxygen for pulse ox greater than 92% [facility]07-20-2024 History and physical note* PHILIP Acosta - [...] Use Authorization (EUA) for the qualitative detection hwABLX-NhX-8 nucleic acid. INFLUENZA A 10/10/2023 NEGATIVE INFLUENZA [...] for Dr. Dallas 11 minutes spent of DRAPERY WORKER time including assessment, planning, and discussion with nursing staff and patient Please note Portions of this note utilized [employer] dictation software, please excuse any typographical or [...] the MDM for this encounter. OBS ADMIT. 07-20-2024 History and physical note* Mirela [place], SYSTEM DEVELOPER ASSOCIATE MANAGER-DRAPERY WORKER - 10/11/2023 8:46 AM EDT History and [...] Use Authorization (EUA) for the qualitative detection inNKWH-IhQ-7 nucleic acid. INFLUENZA A 10/10/2023 NEGATIVE INFLUENZA [...] for Dr. Dallas 11 minutes spent of DRAPERY WORKER time including assessment, planning, and discussion with nursing staff and patient Please note Portions of this note utilized [employer] dictation software, please excuse any typographical or [...] this encounter. OBS ADMIT. documented in this encounter07-20-2024 Nurse Note* Nursing Notes - Stacy Daniel RN - 10/11/2023 4:07 AM EDT Patient resting in bed. Assessment unchanged from prior unless otherwise noted in flowsheets. Patient denies any needs. Call light within reach. [facility]07-19-2024 Emergency department Note* Lorena Marcial RN - 10/10/2023 10:56 PM EDT Report sheet tubed up to med surg at this time. Pt also prefers to keep shorts on at this time for comfort. [facility]07-19-2024 Emergency department Note* Lorena Marcial RN - [...] Resource Strain: Low Risk (02/23/2023) Received from [facility] Overall Financial Resource Strain (CARDIA) Difficulty of Paying Living Expenses: Not very hard Food Insecurity: No Food Insecurity (02/23/2023) Received from [facility] Hunger Vital Sign Worried About Running Out of Food in the Last Year: Never true Ran Out of Food in the Last Year: Never true Transportation Needs: Unknown (02/23/2023) Received from [facility] PRAPARE - Transportation Lack of Transportation (Medical): Not on file Lack of Transportation (Non-Medical): No Physical Activity: Inactive (01/20/2023) Received from [facility] Exercise Vital Sign Days of Exercise per Week: 0 days Minutes of Exercise per Session: 0 min Stress: Not on file Social Connections: Not on file Intimate Partner Violence: Not At Risk (01/20/2023) Received from [facility] Humiliation, Afraid, Rape, and Kick questionnaire Fear of Current or Ex-Partner: No Emotionally Abused: No Physically Abused: No Sexually Abused: No Housing Stability: Unknown (02/23/2023) Received from [facility] Housing Stability Vital Sign Unable to [...] Uzair Cabrera MD 10/10/232224 documented in this encounter07-19-2024 Emergency department Note* Reba Velasco RN - 10/10/2023 10:32 PM EDT Room assignment 3757. 07-19-2024 Physician Emergency department Note* Uzair Cabrera MD [...] Resource Strain: Low Risk (02/23/2023) Received from [facility] Overall Financial Resource Strain (CARDIA) Difficulty of Paying Living Expenses: Not very hard Food Insecurity: No Food Insecurity (02/23/2023) Received from [facility] Hunger Vital Sign Worried About Running Out of Food in the Last Year: Never true Ran Out of Food in the Last Year: Never true Transportation Needs: Unknown (02/23/2023) Received from [facility] PRAPARE - Transportation Lack of Transportation (Medical): Not on file Lack of Transportation (Non-Medical): No Physical Activity: Inactive (01/20/2023) Received from [facility] Exercise Vital Sign Days of Exercise per Week: 0 days Minutes of Exercise per Session: 0 min Stress: Not on file Social Connections: Not on file Intimate Partner Violence: Not At Risk (01/20/2023) Received from [facility] Humiliation, Afraid, Rape, and Kick questionnaire Fear of Current or Ex-Partner: No Emotionally Abused: No Physically Abused: No Sexually Abused: No Housing Stability: Unknown (02/23/2023) Received from [facility] Housing Stability Vital Sign Unable [...] pneumonia Disposition: Admission Uzair Cabrera MD 10/10/232224 [facility] Work Phone: 1(198) 484-235207-10-2023 Evaluation + Plan note Future Scheduled Tests Laboratory* TSH With T4fr Reflex 09/30/22 * Urinalysis 09/30/22 * Vitamin D 25 Hydroxy 09/30/22 * CBC w/ Auto Diff 09/30/22 * Comprehensive Metabolic Panel 09/30/22 * Lipid Panel 09/30/22 [facility]05-26-2023 Hospital Discharge instructions Follow Up Care 08/16/2022 08:24:49 With:ANA CARRILLO LAURA [employer] Address: [address] [place] [address] When: Unknown [facility] [place] 03-21-2023 Discharge summary Author Tenisha Renya [facility] June 11, 2022 8:42am Note Date/Time June 11, 2022 8:4 2am [facility] Medical Records Department [address] [place] [address] Instructions for Home/Discharge Instructions 06/11/22 0841 MR#: [id number] Acct: [id number] Name: ANAI WEBBER Rep #:[id number] : [...] CC: No Primary Care Physician ~ Signed [facility] Work Phone: 1(306) 251-390103-21-2023 Progress note Author Tenisha Reyna [facility] June 11, 2022 8:34am Note Date/Time June 11, 2022 8:2 9am [place] [facility] [address] [place] [id number] Progress Note - OBGYN 06/11/22823 MR#: [id number] Acct: [id number] Name: ANAI WEBBER Rep #:[id number] : 1995 27 From: Tenisha Reyna CNM PCP: Care Physician,No Primary Status :ADM IN Location: [facility]-1 Subjective Subjective Patient doing well without complaints. [...] Cosigner Signature (if applicable): CC: ~ Signed [facility] Work Phone: 1(213) 284-825603-20-2023 Progress note Author Fariba Cota [facility] June 10, 2022 7:45am Note Date/Time June 10, 2022 7:4 5am [facility] Medical Records Department [address] [place] [address] Progress Note - OBGYN 06/10/22 0743 MR#: [id number] Acct: [id number] Name: ANAI WEBBER Rep #:[id number] : 1995 27 From: Fariba Cota NP RN ACUTE CARE-C PCP: Care Physician,No Primary Status :ADM IN Location: [place] [address]-1 Subjective Subjective Patient doing well without complaints. [...] 0745 <Electronically signed by Fariba Cota NP RN ACUTE CARE-C> Cosigner Signature (if applicable): CC: ~ Signed [facility] Work Phone: 1(584) 695-856403-20-[address] Wells [facility] June 09, 2022 10:10pm Note Date/Time June 09, 2022 7:[address] [facility] Medical Records Department [address] [place] [address] Instructions for Home/Discharge Instructions 06/09/22 194 MR#: [id number] Acct: [id number] Name: ANAI WEBBER Rep #:[id number] : [...] CC: No Primary Care Physician ~ Signed [facility] Work Phone: 1(706) 258-557303-19-2023 Procedure [facility] 06-09-2022 History and physical note Author Dr. Wells [facility] June 08, 2022 11:20pm Note Date/Time June 08, 2022 11: 20pm 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 06/08/222319 <Electronically signed by Nenita Wells MD> Cosigner Signature (if applicable): CC: Dr. Nenita Wells MD; No Primary Care Physician~ Signed [facility] Work Phone: [phone]) 706-801809-15-2022 NotePap Smear Specimen AdequacySeptember 2021 4:21pmComment.Satisfactory for evaluation. Endocervical and/or squamous metaplasticcells (endocervical component)are present.[facility] A#[id number] Work Phone: Comment on above:Satisfactory for evaluation. Endocervical and/or squamous metaplasticcells (endocervical component)are present.Evaluation + Plan note No data available for this section [facility] [place] Evaluation + Plan note Future Appointments Appointment Date:10/01/2022 09:20:00 AM Scheduled Provider:Alexander Starr MD Location:[facility] Appointment Type:[facility] [place] Evaluation note* Diagnosis Onset Date Resolution Status Bipolar disorder acute Hx of one miscarriage acute Obesity affecting acute acute Seasonal allergies acute Supervision of high risk , antepartum acute [facility] Work Phone: Evaluation note* Diagnosis Onset Date Resolution Status Bipolar disorder acute Hx of one miscarriage acute Obesity affecting acute acute Seasonal allergies acute Supervision of high risk , antepartum acute Bipolar disorder acute Herpes simplex antibody positive acute Hx of one miscarriage acute Obesity affecting acute acute Seasonal allergies acute Supervision of high risk , antepartum acute [facility] Work Phone: Evaluation note* Diagnosis Onset [...] Supervision of high risk , antepartum acute [facility] Work Phone: Evaluation note* Diagnosis Onset [...] Supervision of high risk , antepartum resolved [facility] Work Phone: Evaluation note* Diagnosis Onset [...] mother noneactive Thyromegaly acute Vaginal discharge acute [facility] Work Phone: Evaluation note* Diagnosis Pneumonia- [...] Pneumonia, organism unspecified documented in this encounter Evaluation note* Diagnosis Pneumonia- Primary Pneumonia, organism [...] Cough, unspecified type documented in this encounter Hospital Discharge instructions No data available for this section [facility] Instructions* Attachments The following attachments cannot be sent through Care Everywhere. * Pneumonia (Palestinian) documented in this encounterProgress note No data available for this section [facility] Reason for referral (narrative)* Consultation (Routine) - New Request Specialty Diagnoses / Procedures Referred By Vicki gan Referred To Contact Pulmonary Disease Diagnoses Pneumonia of both lungs due to infectious organism, unspecified part of lung Shanon Jolly, SYSTEM DEVELOPER ASSOCIATE MANAGER-DRAPERY WORKER [address] [place] [address] Referral ID Status Reason Start Date Expiration Date V isits Requested Visits Authorized [id number] New Request 10/14/2023 11/07/2024 1 1 Electronically signed by Shanon Jolly SYSTEM DEVELOPER ASSOCIATE MANAGER-DRAPERY WORKER at 10/14/2023 12:00 PM EDT * MRI/CAT Scan (Routine) - New Request Specialty Diagnoses / Procedures Referred By Contac t Referred To Contact Diagnoses Pneumonia of both lungs due to infectious organism, unspecified part of lung Procedures CT CHEST WITHOUT CONTRAST CHG DIAGNOSTIC COMPUTED TOMOGRAPHY THORAX W/O CNTRST Mirela [place] APRN-LORENA [address] [place] [address] Referral ID Status Reason Start Date Expiration Date V isits Requested Visits Authorized [id number] New Request 10/12/2023 11/05/2024 1 1 * Unlisted Procedure Code (Routine) - New Request Specialty Diagnoses / Procedures Referred By Contac t Referred To Contact Procedures INPATIENT ADMISSION NOTIFICATION Marilee Dallas, DO [address] [place] [address] Referral ID Status Reason Start Date Expiration Date V isits Requested Visits Authorized [id number] New Request 10/10/2023 11/03/2024 1 1 [facility] for referral (narrative)No reason for referral information availableWCleveland Clinic [facility] Work Phone: Summary Purpose Family History [...] No September 07, 2019 9:38am Power of Technical Report Writer No September 06 9:38am Advance Directive Response Recorded Date/ Time Living Will No April 22 12:33pm Power of Technical Report Writer No April 22, 2022 12:33pm Advance Directive Response Recorded Date/ Time Living Will No June 08, 2022 11:28pm Power of Technical Report Writer No June 08 11:28pm Advance Directive Response Recorded Date/ Time Living Will No June 12, 2022 11:10am Power of Technical Report Writer No June 12 11:10am Date Activated Date [...] 2024 1 :35pm Rubella non-immune status, antepartum [facility] 2024 1:35pm Supervision of high-risk [facility] 2024 1:35pm Thyromegaly April 21, 2024 [...] Ja nuary 2024 1:35pm Supervision of high-risk [facility] 2024 1:35pm Thyromegaly April 21, 2024 [...] 8:4 0pm Rubella non-immune status, antepartum [facility] 2024 8:40pm Supervision of high-risk June [...] 2:1 0pm Rubella non-immune status, antepartum [facility] 2024 2:10pm Supervision of high-risk June [...] 8:4 0pm Rubella non-immune status, antepartum [facility] 2024 8:40pm Supervision of high-risk June [...] 2024 1 :35pm Rubella non-immune status, antepartum [facility] 2024 1:35pm Supervision of high-risk Janua 2024 [...] 2:1 0pm Rubella non-immune status, antepartum [facility] 2024 2:10pm Supervision of high-risk June [...] 8:4 0pm Rubella non-immune status, antepartum [facility] 2024 8:40pm Supervision of high-risk June [...] 2:1 0pm Rubella non-immune status, antepartum [facility] 2024 2:10pm Supervision of high-risk June [...] 8:4 0pm Rubella non-immune status, antepartum [facility] 2024 8:40pm Supervision of high-risk June [...] 2:1 0pm Rubella non-immune status, antepartum [facility] 2024 2:10pm Supervision of high-risk June [...] 8:4 0pm Rubella non-immune status, antepartum [facility] 2024 8:40pm Supervision of high-risk June [...] 2:1 0pm Rubella non-immune status, antepartum [facility] 2024 2:10pm Supervision of high-risk June [...] 8:4 0pm Rubella non-immune status, antepartum [facility] 2024 8:40pm Supervision of high-risk June [...] 2:1 0pm Rubella non-immune status, antepartum [facility] 2024 2:10pm Supervision of high-risk June [...] 8:4 0pm Rubella non-immune status, antepartum [facility] 2024 8:40pm Supervision of high-risk June [...] 2:1 0pm Rubella non-immune status, antepartum [facility] 2024 2:10pm Supervision of high-risk June [...] 8:4 0pm Rubella non-immune status, antepartum [facility] 2024 8:40pm Supervision of high-risk June [...] CREATED AUTHOR 10/15/2017 [facility] DATE CREATED AUTHOR AUTHOR'S ORGANIZ ATION 12/26/2018 [facility] DATE CREATED AUTHOR AUTHOR'S ORGANIZ ATION 11/22/2021 [facility] DATE CREATED AUTHOR AUTHOR'S ORGANIZ ATION 11/22/2021 [facility] DATE CREATED AUTHOR AUTHOR'S ORGANIZ ATION 09/19/2022 [facility] DATE CREATED AUTHOR AUTHOR'S ORGANIZ ATION 11/05/2022 [facility] DATE CREATED AUTHOR AUTHOR'S ORGANIZ ATION 02/02/2023 [facility] DATE CREATED AUTHOR AUTHOR'S ORGANIZ ATION 05/21/2023 [facility] DATE CREATED AUTHOR AUTHOR'S ORGANIZ ATION 03/14/2024 [facility] DATE CREATED AUTHOR AUTHOR'S ORGANIZ ATION 05/08/2024 [facility] DATE CREATED AUTHOR AUTHOR'S ORGANIZ ATION 09/11/2024 J[facility] Goals (unrecognized section and content) Goals may [...] End: June 30, 2024 Fariba Cota NP, RN ACUTE CARE-C Attending Provider Active Start: June 30, 2024 [...] Inactive Member Role Status Dates Fariba Cota RN ACUTE CARE, RN ACUTE CARE-C Attending Provider Active Team Status: Inactive Member [...] Inactive Member Role Status Dates Fariba Cota RN ACUTE CARE, RN ACUTE CARE-C Attending Provider Active No Primary Care Physician [...] Referring Provider, Other Provider Active Fariba Cota RN ACUTE CARE, RN ACUTE CARE-C Attending Provider Active Team Status: Active Member [...] Provider, Refer ring Provider Active Radha Sofia RN ACUTE CARE, RN ACUTE CARE-C Attending Provider Active Team Status: Inactive Member Role Status Dates No Primary Care Physician Primary Care Provider, Refer ring Provider Active Fariba Cota RN ACUTE CARE, RN ACUTE CARE-C Attending Provider Active Team Status: Inactive Member Role Status Dates No Primary Care Physician Primary Care Provider, Refer ring Provider Active Dr. Nenita Wells MD Attending Provider Active Team Status: Inactive Member Role Status Dates No Primary Care Physician Primary Care Provider Active Dr. Nenita Wells MD Attending Provider, Referr ing Provider Active [employer] Relationship Specialty Start Date End Date Laura Perez CNP [address] [place] [address] [place] [address] PCP - General Nurse Practitioner - Family 10/10/23 [employer] Relationship Specialty Start Date End Date Laura [...] 2024 End: April 21, 2024 Fariba Cota RN ACUTE CARE, RN ACUTE CARE-C Attending Provider Active Start: April 21, 2024 [...] 2024 End: September 02, 2024 Fariba Cota RN ACUTE CARE, RN ACUTE CARE-C Attending Provider Active Start: September 02, 2024 End: September 02, 2024 Team Status: Active Member Role Status Dates ANA SANCHEZ Primary Care Provider Active Start : September 02, 2024 Fariba Cota RN ACUTE CARE, RN ACUTE CARE-C Attending Provider Active Start: September 02, 2024 Fariba Cota RN ACUTE CARE, RN ACUTE CARE-C Referring Provider Active Start: September 02, 2024 Team Status: Inactive Member Role Status Dates ANA SANCHEZ Primary Care Provider Active Start : September 02, 2024 End: September 02, 2024 Fariba Cota RN ACUTE CARE, RN ACUTE CARE-C Attending Provider Active Start: September 02, 2024 End: September 02, 2024 Fariba Cota RN ACUTE CARE, RN ACUTE CARE-C Referring Provider Active Start: September 02, 2024 [...] Pneumonia PNA (pneumonia) Marilee Dallas, DO [address] [place] [address] [facility] Referral ID Status Reason Start Date Expiration Date Visits Re quested Visits Authorized [id number] 1 1 Reason Comments Cough Pt states [...] 1 dose, On Fri10/13/23 at 0630, At [facility], in emergencies, administer as rapidly as necessary [...] Guzman RRT)1202 (Given - Provider: Elsa Guzman, UPPER TIER) Labetalol (NORMODYNE) tablet 200 mg 200 mg, [...] Meyer RN) 0828 (Given - Provider: Susi Rain, JOANIE) Loratadine (CLARITIN) tablet 10 mg 10 [...] oral medications 0638 (See Alternative - Provider: Satcy Daniel RN) 0637 (See Alternative - Provider: [...] BE BASED ON THE PRIMARY CLINICAL RECORDS. [facility]. provides no warranty or guarantee of the accuracy or completeness of information in this document.
[2024-09-12 07:43] LABS: Absolute Lymphocyte Count 2.52 X10^3/uL (0.83-4.51); Basophil# 0.05 X10^3/uL; Basophil% 0.3 % (0-1); Eosinophil# 0.09 X10^3/uL; Eosinophils% 0.6 % (0-5); Hematocrit 42.8 % (37-47); Hemoglobin 14.7 g/dL (12.0-15.0); Lymphocyte # 2.52 X10^3/ul (0.83-4.51); Lymphocyte % 16.2 % (19-41); Mean Corp Hgb Conc 34.3 g/dL (32-36); Mean Corpuscular Hgb 28.8 pg (27.0-32.0); Mean Corpuscular Volume 83.8 fL (81-99); Mean Platelet Vol. 10.8 fl (6.2-12.0); Monocyte# 0.86 X10^3/uL; Monocyte% 5.5 % (0-10); NRBC Flagged by Analyzer 0 % (0-5); Neutrophil # 11.98 X10^3/uL (2.7-7.7); Neutrophil % 76.8 % (47-70); Platelet Count 238 K/mm3 (150-450); RBC Distribution Width CV 15.6 % (11.6-14.6); Red Blood Count 5.11 M/mm3 (4.2-5.4); White Blood Count 15.6 K/mm3 (4.4-11.0)
[2024-09-12] MEDS: Lactated Ringers 1,000 ML 999 ML IV (07:43)
[2024-09-12] MEDS: Lactated Ringers 1,000 ML 200 ML IV (07:43)
[2024-09-12 08:42] LABS: Syphilis Antibodies Nonreactive (Nonreactive)
[2024-09-12] MEDS: fentaNYL-bupivacaine (epidural) 100 ML BAG EPIDURAL (08:58)
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
[2024-09-12] MEDS: Ondansetron 4 MG/2 ML Vial IV (09:29)
[2024-09-12] MEDS: LACTATED RINGERS 500 ML 999 ML IV (11:25)
--- NOTE | 2024-09-12 11:57 | PCM.PN.CNM ---
Objective Data Objective Data Vital Signs: Vital Signs Temp Pulse Resp BP Pulse Ox 97.3 F L 79 18 118/75 100 09/12/24 10:10 09/12/24 11:51 09/12/24 10:10 09/12/24 11:37 09/12/24 11:51 Weight: 281 lb 15.539 oz Body Mass Index (BMI) 48.4 Intake & Output: Intake and Output for Last 24 Hours 09/10/24 09/11/24 09/12/24 23:59 23:59 23:59 Intake Total 1000 / 1000 Balance 1000 / 1000 Lab / Micro Data 09/12/24 07:30 Labs: Laboratory Results - last 24 hr 09/12/24 07:30: WBC 15.6 H, RBC 5.11, Hgb 14.7, Hct 42.8, MCV 83.8, MCH 28.8, MCHC 34.3, RDW Std Deviation 47.0 H, RDW Coeff of Elier 15.6 H, Plt Count 238, MPV 10.8, Immature Gran % (Auto) 0.600, Neut % (Auto) 76.8 H, Lymph % (Auto) 16.2 L, Thurston % (Auto) 5.5, Eos % (Auto) 0.6, Baso % (Auto) 0.3, Absolute Neuts (auto) 12.0 H, Absolute Lymphs (auto) 2.52, Nucleated RBC % 0, Syphilis Total Ab Nonreactive, Blood Type O POSITIVE, Antibody Screen NEGATIVE Physical Exam Manual OB Exam: presentation cephalic, dilated 9, effaced 95 and station +1 Amniotic Fluid: clear amniotic fluid NST FHR Rate Baby A Baseline: 120 Assessment & Plan (1) Spontaneous onset of labor: PLAN: Plan current tracing:recovering from prolonged deceleration x10 minutes intermittently santos to 90s with brief increases to 120-130s. dilated to 9/95/+1, repositioned, IV fluid bolus and oxygen applied. PRECIOUS called and cancelled after FHR recovered to 120s at 1135. A/P: cervical exam in 30-60 minutes [facility]PC for amnioinfusion for variable decelerations
--- NOTE | 2024-09-12 12:05 | CASEMGMT ---
Social Work Date of referral: 09/12/2024 Reason for referral: Code OB ERT Telephone Service Adviser responded to code alert which ended up being cancelled. Mother of baby (MOB) and father of baby (FOB) tearful and anxious, however later were relieved and calmed once baby was stabilized. Additional family member also in the room for added support to MOB and FOB. No other needs identified at this time. Beverley Galicia, MILIEU TECHNICIAN, TAB CUTTER
[2024-09-12] MEDS: Amnioinfusion- 0.9% NS 1,000 ML IV.SOLN. 1000 ML INTRA-UTER (12:20)
--- NOTE | 2024-09-12 14:02 | DCINST_ITS ---
Discharge Instructions Diet Discharge Diet: No restrictions DC O2, CPAP, BIPAP needs Home O2 Discharge instructions: No Dressing / Incision Discharge Activity: Return to Normal Activity, May Not Drive (while taking narcotic pain medications.) and May Shower May resume sexual activity in: 4-6 weeks Dressing / Incision Call your doctor if your incision/area has: Continuous Slow Oozing, Sudden Increased Bleeding, Increased Pain/ Swelling, Increased Redness and Foul Smelling Discharge Follow Up Care Please Follow Up With: Nenita Fong MD When: Call [phone] to make an appointment with your doctor in 6 weeks. If you had elevated blood pressure or 4th degree laceration, you will need to be seen in 2 weeks. Test Results: Test results from this visit will be discussed in further detail at your follow- up appointment, if applicable. Discharge Plan Admission Admit Date/Time: 09/12/24 07:18 Attending Provider: Carolina Jones Primary Care Provider: LAURA PEREZ Discharge Orders/Prescriptions Prescriptions: No Action multivitamin with iron Tablet 1 tab PO QDAY sertraline [Zoloft] 50 mg tablet 100 mg PO QDAY lamotrigine 200 MG tablet 200 mg PO DAILY cetirizine 10 mg tablet 10 mg PO DAILY Referrals / Follow Up: LAURA PEREZ [Other]
[2024-09-12] MEDS: Oxytocin 15 Units/NS 250ml 15 UNITS/250 ML IV.SOLN 334 UNITS IV (14:16)
[2024-09-12] MEDS: Methylergonovine 0.2 MG/ML Ampul IM (14:21)
--- NOTE | 2024-09-12 14:33 | EX.PCM.OBVAG ---
Assessment & Plan (1) (spontaneous vaginal delivery): COMMENT: LC IAL/SROM [place] Maternal Data Information HITESH Calculator Estimated Delivery Date Method Current WG Current Estimate 09/21/24 Ultrasound #1 38w 5d Other Estimates 09/27/24 LMP (Certain) 37w 6d Final HITESH: 09/21/24 Final HITESH Source: US >20 weeks Vaginal Delivery Maternal Presentation Maternal Presentation: Active Labor and Spontaneous Rupture of Membranes Maternal Presentation: at 38.5 with SROM with active contractions. fetus with prolonged decelerations with corrective measures allowing to progress to full dilation. Vaginal Delivery Information Procedure Performed: Spontaneous Vaginal Delivery Date of Procedure: 09/12/24 Pre-Procedure Diagnosis: see problem list Post-Procedure Diagnosis: Type of anesthesia: Epidural Estimated Blood Loss: 400 Time of Delivery: 13:58 Findings Description of procedure: Patient began pushing occ cat 2 tracing, dr. alejandre in room and available for vacuum extraction, pt pushed very effectively and delivered the head in the COMFORT presentation. The head was delivered atraumatically. The anterior and posterior shoulders delivered without complication followed by the rest of the infant and the was placed on the maternal abdomen. Delayed cord clamping was employed for approximately 5 minutes. Cord was clamped and cut and gentle traction was applied to the cord and the placenta delivered spontaneously immediately following it was noted to be intact with three-vessel cord. The perineum and vagina were inspected and noted to have first degree laceration, repaired with 3-0 in usual fashion. EBL was 400, methergine given for atony. Patient and infant tolerated delivery well. Presentation: Vertex Amniotic Membrane Rupture Type: Spontaneous Amniotic Fluid Description: Clear Placental Delivery Description: Spontaneous Placenta Disposition: [facility] Cord Vessel Description: 3 Vessels Cord Entanglement: Other (to left shoulder) Cord Gases: ABG and VBG A Gender: Male (1 minute): 8 (5 minute): 9 Delayed Cord Clamping: Yes Post Vaginal Deli Medications given after delivery: IV Pitocin and IM Methergin Episiotomy Description: None Laceration: 1st degree Procedures Urinary/Genital [id number]: [id number] Vaginal Delivery [facility]
[2024-09-12] MEDS: Oxytocin 15 Units/NS 250ml 15 UNITS/250 ML IV.SOLN 83 UNITS IV (14:57)
--- NOTE | 2024-09-12 21:11 | NURSING ---
report given to estela NAIR. that RN to assume care of couplet at this time.
[2024-09-13 01:08] VITALS: BP 120/77; PULSE 95
[2024-09-13 04:30] VITALS: BP 136/73; PULSE 78; RESP 15; TEMP 36.6; O2SAT 100
[2024-09-13 04:44] VITALS: BP 136/73; PULSE 78
[2024-09-13] MEDS: SELF ADMINISTRATION OF MEDS 1 EACH NOTE ×2 (06:59→10:36)
[2024-09-13] MEDS: Benzocaine/Lanolin/Aloe Vera 85 GM Spray 1 SPRAY TOPICAL ×2 (06:59→10:36)
[2024-09-13 08:24] VITALS: BP 128/80; PULSE 82; O2SAT 97
[2024-09-13 08:25] VITALS: BP 128/80; PULSE 90; RESP 16; TEMP 36.9; O2SAT 96
[2024-09-13] MEDS: Naproxen 500 MG Tablet PO (08:37)
[2024-09-13] MEDS: Senna/Docusate Sodium 1 Tablet PO (08:37)
--- NOTE | 2024-09-13 08:53 | PCM.PN.OB ---
Subjective Subjective Patient doing well without complaints. Tolerating PO. Ambulating and voiding without difficulty. feeding well. Denies chest pain, shortness of breath, calf pain/swelling, fevers, chills, lightheadedness. Objective Data Objective Data Vital Signs: Vital Signs Temp Pulse Resp BP Pulse Ox O2 Del Method 98.4 F 90 16 128/80 H 96 Room Air 09/13/24 08:25 09/13/24 08:25 09/13/24 08:25 09/13/24 08:25 09/13/24 08:25 09/13/24 08:25 Oxygen Delivery Method Room Air Weight: 281 lb 15.539 oz Body Mass Index (BMI) 48.4 Intake & Output: Intake and Output for Last 24 Hours 09/11/24 09/12/24 09/13/24 23:59 23:59 23:59 Intake Total 2978.23 / 2978.23 Output Total 1200 / 1200 Balance 1778.23 / 1778.23 Lab / Micro Data 09/12/24 07:30 ROS Constitutional Constitutional: Reports systems reviewed and no addt'l complaints, except as documented Cardiovascular Cardiovascular: Reports systems reviewed and no addt'l complaints, except as documented Respiratory/Chest Respiratory/Chest: Reports systems reviewed and no addt'l complaints, except as documented Gastrointestinal Gastrointestinal: Reports systems reviewed and no addt'l complaints, except as documented Physical Exam Const alert, oriented x3 and no apparent distress HEENT Head and Scalp: atraumatic Resp normal respiratory effort GI soft to palpation and non-tender Bimanual Exam - Vag & Uterus: uterus non-tender Uterus Palpation: uterus fundus firm (below Umbilicus) Assessment & Plan (1) (spontaneous vaginal delivery): COMMENT: LC IAL/SROM [place] PLAN: Plan s/p PPD # 1 1. routine post delivery care 2. breast feeding- support given 3. rh positive 4. rubella immune
[2024-09-13] MEDS: Sertraline 100 MG Tablet PO (10:13)
[2024-09-13] MEDS: lamoTRIgine 100 MG Tablet 200 MG PO (10:13)
--- NOTE | 2024-09-13 11:38 | CASEMGMT ---
Social Work Assessment Labor and Delivery Unit Patient Address: [address] [place], [place] [address] Phone number: [phone] Date of Referral: 09/13/24 Time of Referral:? 829 Referred By: Charge Nurse Date of Intervention: ??09/13/24 Time of Intervention:? 1044 Reason for Referral:?mental health Sw completed chart review. Sw informed by charge nurse that mother of baby (SANDRA- Teresa) has mental health history positive for BiPolar disorder. Sw presented to bedside and introduced self to MOB and father of baby (FOB- Christiano). Sw explained reason for sw involvement and completed psychosocial assessment. History obtained from: medical records, MOB and FOB Household composition: Currently residing in the family home is GIUSEPPE FLORES and their two year old daughter, Rahul. baby to be included in residence when ready for discharge. Parents deny any problems or concerns with housing, reporting it to be safe and secure. Patient's parent/guardian status: SANDRA states she and GIUSEPPE met online in 2020 and got in 2023. No concerns reported of domestic violence or intimate partner violence. [place] baby is second child for parents together. ? ? Medical History: ?SANDRA is 29 year old female who is 2, para 1- now 2 following labor and delivery of . SANDRA received routine care during with [facility]. SANDRA presented to hospital in active labor and delivered baby via vaginal delivery after PRECIOUS was called for distress. Baby boy, named Kj Waggoner, was born weighing 7lb 9oz with apgars of 8 and 9 at one and five minutes of life, respectfully. SANDRA is breast feeding and baby will be followed by Dr. Garza. Educational Status:? Both parents graduated from high school. MOB attended some college, but did not obtain a degree. No problems with reading, learning or comprehension. Financial Status: Both parents are gainfully employed outside of the home. FOJim works in [employer] and states that he is able to take a week off of work for paternity leave. SANDRA works for a [employer] and is taking 8 weeks off for maternity leave. Supplies:?? All necessary baby supplies obtained, including: car seat, safe sleep space, clothes, diapers and wipes. Childcare/Caregiver(s):? MOB will be the primary caregiver along with FOB when he is not working. When both parents have returned to work and big sister will be watched by paternal grandma. Transportation:?Both parents have their drivers license and reliable means of transportation, no barriers. ? Programs/Agencies Involved: ?SANDRA states that they are not connected to any community agencies that assist them financially as they are over income now that they are . Children Services/Legal Issues: No prior involvement with children services, no issues or concerns warranting referral to be made at this time. ?? Behavioral Health Issues: ??Mental Health History: GIUSEPPE states that he has been diagnosed with anxiety and is prescribed paroxetine to help manage his mental health symptoms. GIUSEPPE states that his prescriber is his PCP. GIUSEPPE states that his mental health is managed and his anxiety is not something that he struggles with regularly. SANDRA has been diagnosed with Bipolar and depression. SANDRA states that she is prescribed Zoloft and lamotrigine to help her manage her symptoms. ??? Substance Use History:?Parents deny substance use prior to and during . ? Family History:?MOB and GIUSEPPE deny family history of substance use issues or significant mental health diagnoses. ? Drug Screens: ??No drug screens observed in chart review. Family/Social Stressors:? SANDRA became tearful during conversation and stated that she is getting overwhelmed at the hospital with feeds. SANDRA states that baby has only been wanting to cluster feed, and although she knows that is normal, she states she will feel better and more comfortable at home. SANDRA states that the responsibility of keeping a alive is a lot. SANDRA reports that she struggled with her mental health after her daughter was born, and she does not remember the first couple of months with her. SANDRA states that she was not on her medication at that time, so she is hopeful that going into this period with her son will be different and more positive. Support Systems: Both sets of grandparents and MOB's sister. Depression/Shaken Baby/Safe Sleeping:? Lam educated parents on signs and symptoms of baby blues, depression/ anxiety and rage. Lam explained that due to maternal mental health SANDRA is more at risk for experiencing one or all of these issues. SANDRA completed an Sidney depression scale and her score was a 6, which is low indicator of depression or anxiety. FOB states that he can typically recognize when MOB is struggling, but he himself struggles to always know how to help MOB. Sw encouraged parents to talk to each other about things that FOB could do for MOB if she were to struggle during this period with her mental health. Parents express understanding. MOB states that when her daughter was born, she did not feel a morris or an attachment to her. MOB states that she pumped for her daughter and provided milk for her that way. MOB states that she has intentions of pumping when she gets home and thinks that pumping will help to alleviate some weight that she is feeling. MOB expressed feeling tied down since she is breast feeding. Sw brainstormed with MOB what that means to her, and attempted to find other ways of viewing this next part of . MOB states that she feels comfortable talking to her mom if she were to struggle. Sw educated parents on shaken baby prevention and ABCs of safe sleep, parents express understanding. ASSESSMENT:? MOB and baby admitted following labor and delivery of . MOB with mental health history positive for BiPolar, depression and depression. MOB reports feeling weighted down when her daughter was born and is hopeful that this period will be more forgiving to her since she is on psychotropic medication to help her manage her mental health. MOB states that during that time she did not feel a morris or a connection with baby. Currently MOB reports to having a good relationship with her daughter who is now 2. MOB also states that she feels a morris with the , although she is tearful and able to recognize that she is also starting to feel overwhelmed and the same sense of weightedness. MOB anxious to go home where she thinks her mental health will improve. Upon entering room MOB was awake and laying on couch, and FOB was asleep in reclining chair holding baby. Sw asked if FOB was holding baby and MOB stated that he was. Sw explained to MOB that he should not sleep in chair while holding baby. MOB stated that she thought that since she was awake it would be okay. Sw explained that if you are going to sleep in a chair, couch or bed, it is safest for baby to be in their own safe sleep space. MOB expressed understanding, and then FOB woke up. FOB apologized and then participated and contributed to conversation. MOB tearful throughout parts of assessment when discussing her mental health history following her first delivery, and how she is feeling now. MOB receptive to resources provided, and eventually getting connected to a mental health professional if she feels it is warranted. PLAN:? No other services requested or indicated. MOB and baby to be discharged when medically ready. Parents were provided literature regarding: signs and symptoms of baby blues and mood and anxiety disorders, Help Me Grow, shaken baby prevention, ABCs of safe sleep and a list of county resources that are available for them should any needs present themselves. Peter Naranjo, IT PROGRAM MANAGER, COMMERCIAL LOAN MANAGER
[2024-09-13 14:30] VITALS: BP 133/89; PULSE 89; PULSE 90; RESP 16; TEMP 36.2; O2SAT 93; O2SAT 95; O2SAT 96
[2024-09-13] MEDS: MEASLES,MUMPS,RUBELLA VACC/PF 0.5 ML SC (14:42)
--- NOTE | 2024-09-17 13:37 | NURSING ---
F/U phone call attempted at this time. No answer. Voicemail left.
== END 2024-09-13 16:00 | disposition home or self-care (01) | DRG 807 ==
LOC: WPOUT 07:20 → WP 07:20
PROVIDERS: Admitting Provider Registered Nurse; Visit Provider Registered Nurse
DX: O42.92 Full-term premature rupture of membranes, unspecified as to length of time between rupture and onset of labor (principal); Z37.0 Single live birth; O99.344 Other mental disorders complicating childbirth; F31.9 Bipolar disorder, unspecified; O99.214 Obesity complicating childbirth; J30.2 Other seasonal allergic rhinitis; O76 Abnormality in fetal heart rate and rhythm complicating labor and delivery; O70.0 First degree perineal laceration during delivery; O99.52 Diseases of the respiratory system complicating childbirth; O99.892 Other specified diseases and conditions complicating childbirth; Z28.39 Other underimmunization status; Z3A.38 38 weeks gestation of pregnancy; Z79.899 Other long term (current) drug therapy; Z87.59 Personal history of other complications of pregnancy, childbirth and the puerperium
CPT/HCPCS: 59025; 59050; 85025; 86780; 86850; 86900; 86901; 99221; G0378; J2405

== ENCOUNTER → 2025-03-09 | Outpatient (CLI) | payer OTHER, SELFPAY | END | disposition home or self-care (01) | LOC: BWCLAB 15:05 | PROVIDERS: Visit Provider Obstetrics & Gynecology | DX: Z00.00 Encounter for general adult medical examination without abnormal findings (principal) ==

== ENCOUNTER 2025-03-22 10:38 | Day surgery (SDC) | payer OTHER, SELFPAY ==
[2025-03-09 16:37] LABS: Hematocrit 41.2 % (37-47); Hemoglobin 13.4 g/dL (12.0-15.0); Immature Granulocytes Count 0.070 X10^3/uL (0.0-0.0); Mean Corp Hgb Conc 32.5 g/dL (32-36); Mean Corpuscular Volume 82.6 fL (81-99); Mean Platelet Vol. 9.8 fl (6.2-12.0); NRBC Flagged by Analyzer 0 % (0-5); Platelet Count 348 K/mm3 (150-450); RBC Distribution Width CV 14.6 % (11.6-14.6); RBC Distribution Width SD 43.2 fl (35.1-43.9); Red Blood Count 4.99 M/mm3 (4.2-5.4); White Blood Count 11.8 K/mm3 (4.4-11.0)
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
[2025-03-22] VITALS (11 sets, daily range): BP systolic 107–139; BP diastolic 64–98; PULSE 80–102; RESP 16–18; TEMP 36.2–37; O2SAT 93–98; BMI 43.4
--- NOTE | 2025-03-22 | FALS_PTH ---
PATIENT: ANAI WHIPPLE LOC: [facility] [place] U#:[id number] AGE/SX: 29/F ROOM: RE03/22/[address]: Dr. Nenita Fong MD : 1995 BED: DIS: 03/22/2025 SPEC #: [id number] RECD: 03/22/25 14:16 STATUS: PASQUALE JOLENE #: [id number] ALLAN: 03/22/25 00:[address]: Nenita Fong DEPT: SURGICAL PATHOLOGY RECD BY: Bucky Yu Tissues: Fallopian tube Procedures: Surgery Specimen Level II HEADER OPERATION: Laparoscopic salpingectomy, PAP PRE-OP DIAGNOSIS: Request for sterilization TISSUE SUBMITTED: A. Bilateral fallopian tubes MICROSCOPIC DIAGNOSIS A. Fallopian tubes, bilateral salpingectomy: - No specific pathologic change with complete luminal cross-section identified x2. MICROSCOPIC DESCRIPTION Slides are reviewed. GROSS DESCRIPTION A. The specimen is received in one properly container. ?Part A is designated bilateral fallopian tubes and consists of two separate, unoriented fimbriated fallopian tube segments, which are arbitrarily designated tube #1 and tube #2. ?Tube #1 is 6.0 cm in length and 0.5 cm in diameter and has a purple-trevino, smooth serosal surface. ?Tube #2 is 4.0 cm in length and 0.5 cm in average diameter and has a purple-trevino, smooth serosal surface with a single 0.3 cm clear fluid-filled cystic structure adjacent to the fimbria. ?Sectioning through both tubes reveals patent lumens. ?RS 2 Cassettes: A1, fallopian tube #1 to include patient relations representative cross sections and entire fimbriated end A2, fallopian tube #2, to include patient relations representative cross sections, cystic structure, and entire fimbriated end [facility] 03/23/2025 CPT:62113
[2025-03-22 10:57] LABS: Internal QC Validated? YES +Cl - CLEAR BKGD
[2025-03-22 10:58] LABS: Pregnancy, Urine Negative Negative
[2025-03-22] MEDS: Lactated Ringers 1,000 ML 15 ML IV (11:01)
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
[2025-03-22] MEDS: Midazolam 2 MG/2 ML Syringe IV (13:15)
[2025-03-22] MEDS: fentaNYL 100 MCG/2 ML Ampul IV (13:19)
[2025-03-22] MEDS: Lidocaine 1% (5 ml sdv) 5 ML Vial 10 ML IV (13:19)
--- NOTE | 2025-03-22 13:29 | PCM.OPRPT ---
Multi Select Codes Urinary/Genital Urinary/Genital CPT Codes: 91482 Laproscopic BS/O Operative Report (Standard) Operative Information Date of Procedure: 03/22/25 Pre-Operative Diagnosis: see problem listt Post-Operative Diagnosis: same Surgery/Procedure Performed: laparoscopic bilateral salpingectomy salt grinder: Yes International Representative: Ana M Quezada Tasks completed by visitor use assistant: Opening & closing, Altering tissue and Insert Trochanter Additional internal medicine physician assistant?: No Type of Anesthesia: General RN Documented Start/Stop Times: Operation Date: 03/22/25 12:15 Case Time Into Pre-Op 03/22/25 10:42 Out of Pre-Op 03/22/25 13:12 Anesthesia Start 03/22/25 13:15 Into Room 03/22/25 13:15 Procedure Start 03/22/25 13:41 Procedure End 03/22/25 14:00 Anesthesia End 03/22/25 14:06 Out of Room 03/22/25 14:06 Into Recovery 03/22/25 14:08 Procedure Start Time: 13:41 Procedure Stop Time: 14:00 Select all DRAINS/GRAFTS/IMPLANTS that apply: None Estimated Blood Loss: 25 Specimen collected: Yes Description of specimen(s) removed: bilateral tubes Description of surgery: Patient was taken in the operating room and was placed under general anesthesia was prepped and draped in normal sterile fashion in the dorsal lithotomy position. Bladder was drained of clear urine and SCDs were on preoperatively. Uterus was sounded and a uterine manipulator was placed after dilating. Attention was then paid to the abdominal portion of the procedure and the umbilicus was elevated with towel clamps and injected with Marcaine and after a 5 mm incision was made and the Veress needle was entered into the abdomen confirmed to be intra-abdominal with a low opening pressure of less than 5 mmHg. Abdomen was insufflated with CO2 gas and a 5 mm optical trocar was placed under direct visualization. suprapubic 5 mm port was placed under direct visualization. Uterus was well visualized and upon inspection of the pelvis bilateral tube seen and WNL. bilateral tubes removed with ligasure device without complication. Excellent hemostasis was noted in the pelvis. Liver and upper abdomen were visualized notably within normal limits and no other gross abnormalities were seen in the abdomen. All instruments removed from the abdomen after gas was desufflated. Port sites were closed with 3-0 Monocryl Steri's and op sites were applied. All instruments removed from the vagina and patient was awoken and taken recovery in stable condition. Surgical Findings: nl uterus tubes ovaries Complications Complications: No
--- NOTE | 2025-03-22 13:34 | PCM.DC ---
Discharge Instructions DC O2, CPAP, BIPAP needs Home O2 Discharge instructions: No Dressing / Incision Discharge Activity: Return to Normal Activity, May Not Drive ( while taking narcotic pain meds, when pain free), May Shower and May Take a Tub Bath (in 7 days) May resume sexual activity in: 1 week Weight Bearing Status: Full weight bearing Dressing / Incision Call your doctor if your incision/area has: Continuous Slow Oozing, Sudden Increased Bleeding, Increased Pain/ Swelling, Increased Redness and Foul Smelling Discharge Call your doctor if you observe: Fever of 101 or Higher, Using more than 1 pad per hour, Shortness of breath, Chest pain and Uncontrolled pain Suture Line Care: Avoid Pulling/Pushing and Avoid Pinching/Bending Remove Dressing in: 1 week (if present) Cleanse incision/area with: Soap & Water and Keep Dressing Clean & Dry Follow Up Care When: Call to make an appointment with your doctor for a fu/incision check in 1-2 weeks. Test Results: Test results from this visit will be discussed in further detail at your follow-up appointment, if applicable. Discharge Plan Admission Attending Provider: Nenita Fong Primary Care Provider: LAURA PEREZ Instructions Print Language: Setswana Discharge Orders/Prescriptions Prescriptions: New oxycodone-acetaminophen [Percocet] 5-325 mg tablet 1 tab PO Q4H PRN (Reason: pain) 7 Days Qty: 20 0RF naproxen 500 mg tablet 500 mg PO BID PRN PRN (Reason: Pain) Qty: 30 1RF No Action multivitamin with iron Tablet 1 tab PO QDAY sertraline [Zoloft] 50 mg tablet 100 mg PO QDAY L norgest/e.estradiol-e.estrad [Ashlyna] 0.15 mg-30 mcg (84)/10 mcg (7) tablets,dose pack,3 month 1 tab .Route DAILY Qty: 91 4RF Rx Instructions: 1 TAB daily; lamotrigine 200 MG tablet 200 mg PO DAILY cetirizine 10 mg tablet 10 mg PO DAILY Disposition Disposition (needs filled in before D/C Order can be placed): Home, Self Care
--- NOTE | 2025-03-22 14:08 | PCM.POST.ANE ---
Anesthesia: Postop Eval I Current Vital Signs Temperature: 97.6 F Pulse Rate: 81 Blood Pressure: 113/66 Respiratory Rate: 16 Pulse Ox: 93 Oxygen Delivery Method: Room Air Assessment Airway patent: Yes Spontaneous unlabored respirations: Yes Mental status: Awake and Calm nausea: No Vomiting: No Anesthesia Complication: No Fluid Hydration Crystalloid volume administer (ml): 600 Total IV fluid infused: 600 Progress Note Anesthesia document: Postop Eval 1 completed: Yes
--- NOTE | 2025-03-22 15:08 | POSTOPAN2_ITS ---
Anesthesia Postop Eval I Sum Postop Eval Completion status Anesthesia document: Postop Eval 1 completed: Yes Anesthesia Postop Eval I Summary Anesthesia Postop Eval I Summary: Anesthesia Postop Eval I: Assessment Summary Airway patent Yes 03/22/25 14:09 DIRECTOR MEDICAL ECONOMICS.GDOTT Spontaneous unlabored Yes 03/22/25 14:09 DIRECTOR MEDICAL ECON[employer]ICS.GDOTT respirations Mental status Awake,Calm 03/22/25 14:09 DIRECTOR MEDICAL ECONOMICS.GDOTT nausea No 03/22/25 14:09 DIRECTOR MEDICAL ECONOM[employer].GDOTT Vomiting No 03/22/25 14:09 DIRECTOR MEDICAL ECONOMICS.GDOTT Anesthesia Postop Eval I: Fluid Summary Crystalloid volume administer 600 03/22/25 14:09 DIRECTOR MEDICAL ECONOM[employer].GDOTT (ml) Colloids volume administered ( ml) Blood Product volume administered (ml) Total IV fluid infused 600 03/22/25 14:09 DIRECTOR MEDICAL ECONOMICS.GDOTT Anesthesia Postop Eval I: Summary Notes Anesthesia Complication No 03/22/25 14:09 DIRECTOR MEDICAL ECONOMICS.GDOTT Anesthesia Complication Comment: Post-operative progress note Anesthesia: Postop Eval II Evaluation Mental status: Awake and Calm Pain Level: 1 nausea: No Vomiting: No Complications Anesthesia Complication: No
--- NOTE | 2025-03-22 15:08 | PCM.POSTANE2 ---
Anesthesia Postop Eval I Sum Postop Eval Completion status Anesthesia document: Postop Eval 1 completed: Yes Anesthesia Postop Eval I Summary Anesthesia Postop Eval I Summary: Anesthesia Postop Eval I: Assessment Summary Airway patent Yes 03/22/25 14:09 REVENUE AGENT.GDOTT Spontaneous unlabored Yes 03/22/25 14:09 REVENUE AGENT.GDOTT respirations Mental status Awake,Calm 03/22/25 14:09 REVENUE AGENT.GDOTT nausea No 03/22/25 14:09 REVENUE AGENT.GDOTT Vomiting No 03/22/25 14:09 REVENUE AGENT.GDOTT Anesthesia Postop Eval I: Fluid Summary Crystalloid volume administer 600 03/22/25 14:09 REVENUE AGENT.GDOTT (ml) Colloids volume administered ( ml) Blood Product volume administered (ml) Total IV fluid infused 600 03/22/25 14:09 REVENUE AGENT.GDOTT Anesthesia Postop Eval I: Summary Notes Anesthesia Complication No 03/22/25 14:09 REVENUE AGENT.GDOTT Anesthesia Complication Comment: Post-operative progress note Anesthesia: Postop Eval II Evaluation Mental status: Awake and Calm Pain Level: 1 nausea: No Vomiting: No Complications Anesthesia Complication: No
[2025-03-22] MEDS: HYDROcodone Bitartrate/Apap 5/325 Tablet PO (15:13)
[2025-03-25 20:08] LABS: HPV APTIMA, High Risk Negative (Negative)
== END 2025-03-22 16:28 | disposition home or self-care (01) ==
LOC: SDC 10:41 → AC 10:42
PROVIDERS: Referring Provider Obstetrics & Gynecology; Visit Provider Obstetrics & Gynecology
PROC: (CPT 58661; principal; 2025-03-22 12:00)
DX: Z30.2 Encounter for sterilization (principal); F31.9 Bipolar disorder, unspecified; E01.0 Iodine-deficiency related diffuse (endemic) goiter
CPT/HCPCS: 58661; 00840; 36415; 81025; 84439; 84443; 85025; 86376; 86850; 86900; 86901; 87624; 88175; 88302; G0145; J2405